=== PATIENT | female | born 1945 | race Caucasian/White ===

== ENCOUNTER 2016-04-04 10:12 | Day surgery (SDC) | payer MEDICARE ==
[2016-04-01 11:00] VITALS: BMI 58.7
[~2016-04-04 10:12] MED LIST: ALPRAZolam 0.25 MG TAB PO PRN; ALPRAZolam 0.5 MG TAB PO PRN; ASPIRIN 325 MG TAB PO STA; ATORVASTATIN 80 MG TAB PO STA; NITROGLYCERIN SL TABS 0.4 MG TAB SUBLINGUAL PRN; SODIUM CHLORIDE 0.9% 1,000 ML in EMPTY BAG 1 BAG IV ONE
[2016-04-04 11:40] LABS: Basophils % (A) 1 %; CH 32.3; CHCM 32.4; Eosinophils # (A) 0.6 k/uL (0-0.7); Eosinophils % (A) 6 %; HCT 36.1 % (34.0-46.0); HDW 2.54; HGB 11.6 gm/dL (11.4-16.0); Luc # (Auto) 0.17; Luc % (Auto) 2; Lymphocytes # (A) 0.9 k/uL (1.0-4.8); Lymphocytes % (A) 10 %; MCH 32.2 pg (25.0-35.0); MCHC 32.2 g/dL (31.0-37.0); MCV 100.1 fL (80.0-100.0); Mean Platelet Volume 6.7; Monocytes # (A) 0.7 k/uL (0-1.0); Monocytes % (A) 7 %; Neutrophils # (A) 6.9 k/uL (1.3-7.7); Neutrophils % (A) 74 %; RDW 13.3 % (11.5-15.5); WBC 9.2 k/uL (3.8-10.6); WBC (Perox) 9.72
[2016-04-04 11:41] LABS: Glucose,Whole Blood 163 mg/dL (75-99)
[2016-04-04 11:46] VITALS: TEMP 99
[2016-04-04 11:52] LABS: Anion Gap 11 mmol/L; Blood Urea Nitrogen 36 mg/dL (7-17); Calcium 9.3 mg/dL (8.4-10.2); Carbon Dioxide 32 mmol/L (22-30); Chloride 98 mmol/L (98-107); Glucose 167 mg/dL (74-99); Non-African American GFR(MDRD) 53 (>60 ml/min/1.73 sqM); Potassium 5.2 mmol/L (3.5-5.1); Sodium 141 mmol/L (137-145)
[2016-04-04] MEDS ORDERED: VERAPAMIL 2.5 MG/ML 2 ML AMP ONE (12:06)
[2016-04-04] MEDS ORDERED: LIDOCAINE 2% INJ 20 MG/ML (20 ML MDV) ONE (12:07)
[2016-04-04] MEDS ORDERED: SODIUM CHLORIDE 0.9% (PF) 10 ML VIAL ONE (12:07)
[2016-04-04] MEDS ORDERED: MIDAZOLAM 2 MG/2 ML VIAL ONE (12:31)
[2016-04-04] MEDS ORDERED: HEPARIN SODIUM 1,000 UNIT/ML VIAL ONE (12:32)
[2016-04-04] MEDS ORDERED: MIDAZOLAM 2 MG/2 ML VIAL IV ONE (12:45)
[2016-04-04] MEDS ORDERED: LIDOCAINE 2% INJ 20 MG/ML SQ ONE (12:47)
[2016-04-04] MEDS ORDERED: IODIXANOL 320 MG/ML 100 ML INTRAARTER ONE (13:09)
[2016-04-04] MEDS ORDERED: RX INFO: IV CONTRAST WAS GIVEN 1 EACH MISC MISCELLANE PRN (13:17)
[2016-04-04] MEDS ORDERED: SODIUM CHLORIDE 0.9% 1,000 ML IV SCH (13:30)
[2016-04-04 14:04] VITALS: RESP 16
[2016-04-04 17:05] LABS: Glucose,Whole Blood 120 mg/dL (75-99)
[2016-04-04 17:12] VITALS: BP 138/63; PULSE 53
[2016-04-04] MEDS ORDERED: INSULIN LISPRO (humaLOG) 300 UNIT/3 ML VIAL SQ SCH (17:30)
--- NOTE | 2016-04-04 20:48 | CC ---
DATE OF SERVICE: 04/04/2016 Performing physician: Hermes tabor. PROCEDURE PERFORMED: 1. Selective right and left coronary angiogram. 2. Left heart catheterization. Approach: Right common femoral artery. INDICATION: This is a pleasant 71-year-old female who is known to have coronary artery disease and known to have severe left circumflex and stent to the ostial/proximal LAD was experiencing chest discomfort consistent with angina. COMPLICATIONS: None. Level of sedation: Moderate. DESCRIPTION OF PROCEDURE: After obtaining informed consent, the patient was brought to the cardiac bolt labeler. The right common femoral artery was cannulated using ( ). Then I placed 6 [place] sheath in the right common femoral artery. Subsequently, I did selective right and left coronary angiogram using JR4 and JL4 catheters. After that, I did left heart catheterization and LV gram using a 6 [place] pigtail catheter. The procedure was completed without any complication. SELECTIVE CORONARY ANGIOGRAM: 1. The right coronary artery is a large-caliber vessel and it is a dominant vessel. The proximal RCA appeared to have mild disease only. The mid RCA has known severe lesion appeared to be in the range of 40%. The RCA distally appeared to have mild disease only and bifurcates into PDA and PLV branches. The PDA branch appeared to have mild disease only and the PLV branch appeared to have a lesion in the range of 50%. 2. The left main is calcified. Left main with mild disease distally bifurcates into the left circumflex and left anterior descending artery. The left circumflex is a large-caliber vessel and it is a dominant vessel. The ostial left circumflex appeared to have calcified, eccentric, and tight lesion in the range of 90% to 95%. The lesion extends to the proximal left circumflex. The mid left circumflex appeared to have mild disease only. The left circumflex distally is normal. 3. The left anterior descending coronary artery: The ostial/proximal LAD is stented with mild to moderate in-stent restenosis. The mid LAD appeared to have mild disease only and LAD distally appeared to be angiographically to have mild disease only. 4. The ramus intermedius appeared to have severe lesion in the proximal portion but the artery is a medium to medium caliber vessel. CONCLUSION: 1. Intermediate disease involving the right coronary artery. 2. Critical disease involving the ostial/proximal left circumflex, which seems to be calcified. 3. Intermediate in-stent restenosis involving the LAD stent. POSTPROCEDURE MANAGEMENT: The patient will be scheduled to undergo an atherectomy and balloon angioplasty and stenting of the left circumflex.
== END 2016-04-04 20:10 | disposition home or self-care (01) ==
LOC: CATHCVL 10:12 → 3OBS 13:13 → CATHCVL 20:10
PROVIDERS: ATTEND Internal Medicine Interventional Cardiology
DX: I25.110 Atherosclerotic heart disease of native coronary artery with unstable angina pectoris (principal); T82.855A Stenosis of coronary artery stent, initial encounter; I10 Essential (primary) hypertension; E78.5 Hyperlipidemia, unspecified; E78.00 Pure hypercholesterolemia, unspecified; E11.9 Type 2 diabetes mellitus without complications; Z79.82 Long term (current) use of aspirin; Z79.4 Long term (current) use of insulin; Z79.899 Other long term (current) drug therapy; Z88.5 Allergy status to narcotic agent; Z88.0 Allergy status to penicillin; Z88.8 Allergy status to other drugs, medicaments and biological substances; Z91.040 Latex allergy status
CPT/HCPCS: 93458; 80048; 85025; 99156; 99157; C1894 ×2; C1769 ×2; J2001; J2250; Q9967

== ENCOUNTER 2016-04-24 00:05 | Inpatient (IN) | payer MEDICARE ==
[2016-04-24] MEDS ORDERED: SODIUM CHLORIDE 0.9% 1,000 ML IV ONE (00:36)
--- NOTE | 2016-04-24 00:38 | ED ---
General Adult HPI - General Chief complaint: Altered Mental Status Stated complaint: Altered mental status Time Seen by Provider: 04/24/16 00:30 Source: patient, EMS, RN notes reviewed Mode of arrival: EMS Limitations: altered mental status, physical limitation - History of Present Illness Initial comments: Patient is a 71-year-old female presenting to the emergency department with concerns for mental status change. History is very limited. Patient is oriented to name. Patient is unclear why she is here. Reportedly there was concern regarding change in mental status. EMS did provide Narcan. Reported the a home nurse found to fentanyl patches and remove one of them. Patient is restless at this time. - Related Data Home Medications Medication Instructions Recorded Confirmed Citalopram Hydrobromide [CeleXA] 40 mg PO QAM 09/20/14 04/04/16 clonazePAM [KlonoPIN] 1 mg PO TID 09/20/14 04/04/16 fentaNYL 75MCG/HR PATCH [Duragesic 1 patch TRANSDERM Q72H 09/20/14 04/04/16 75MCG/HR] lamoTRIgine [LaMICtal] 25 mg PO BID 09/20/14 04/04/16 Allopurinol [Zyloprim] 100 mg PO DAILY 03/02/15 04/04/16 Cholecalciferol [Vitamin D3] 1,000 unit PO DAILY 03/02/15 04/04/16 Cyanocobalamin [Vitamin B-12] 500 mcg PO DAILY 03/02/15 04/04/16 Nitroglycerin Sl Tabs [Nitrostat] 0.4 mg SUBLINGUAL Q5M PRN 03/02/15 04/01/16 Aspirin 81 mg PO DAILY 10/05/15 04/04/16 INSULIN LISPRO (humaLOG) [humaLOG See Protocol SQ AC-BID 10/05/15 04/01/16 (formulary)] Omeprazole 40 mg PO AC-BRKFST 10/05/15 04/04/16 Magnesium Oxide [Mag-Ox] 400 mg PO DAILY 10/20/15 04/04/16 Clopidogrel [Plavix] 75 mg PO DAILY 04/01/16 04/04/16 Zinc 50 mg PO DAILY 04/01/16 04/04/16 Previous Rx's Medication Instructions Recorded Ferrous Sulfate [Iron (65 MG 325 mg PO DAILY tab 10/08/15 Elemental)] Lisinopril [Zestril] 20 mg PO QAM #30 tab 10/08/15 Metoprolol Tartrate [Lopressor] 25 mg PO BID #60 tab 10/08/15 traMADol HCl [Ultram] 50 mg PO Q3H PRN #60 tab 10/08/15 Atorvastatin [Lipitor] 40 mg PO HS tab 10/22/15 Furosemide [Lasix] 40 mg PO BID@0900,1600 tab 10/22/15 Insulin Glargine [Lantus] 50 unit SQ HS vial 10/22/15 Oxybutynin Xl [Ditropan XL] 5 mg PO DAILY tab.er.24 10/22/15 Allergies Allergy/AdvReac Type Severity Reaction Status Date / Time adhesive Allergy Rash/Hives, Verified 04/01/16 09:56 W/ TAPES, CAN USE PAPER TAPE codeine Allergy Anaphylaxis Verified 04/01/16 09:56 latex Allergy Rash/Hives Verified 04/01/16 09:56 morphine Allergy Anaphylaxis Verified 04/01/16 09:56 Penicillins Allergy Anaphylaxis Verified 04/01/16 09:56 propoxyphene napsylate Allergy Anaphylaxis Verified 04/01/16 09:56 [From Darvocet-N 100] tuberculin, purified protein Allergy Rash/Hives Verified 04/01/16 09:56 deriva [tuberculin,purif.prot.deriv.] Review of Systems ROS Statement: Those systems with pertinent positive or pertinent negative responses have been documented in the HPI. ROS Other: All systems not noted in ROS Statement are negative. Limitations: ROS unobtainable due to patients medical condition Past Medical History Past Medical History: Asthma, Chest Pain / Angina, CVA/TIA, Diabetes Mellitus, GERD/Reflux, Hyperlipidemia, Hypertension, Memory Impairment, Osteoarthritis (OA ), Sleep Apnea/CPAP/BIPAP Additional Past Medical History / Comment(s): uses CPAP, chronic low back pain- bulging discs, scoliosis, gout, urinary incontinence, IBS, ulcers, TIA 3 yrs. ago-memory impairment, uses O2 @2l continuously History of Any Multi-Drug Resistant Organisms: MRSA Date of last positivie culture/infection: 2010 and 2011 MDRO Source:: lt axillary, lt leg Past Surgical History: Bladder Surgery, Cholecystectomy, Heart Catheterization, Heart Catheterization With Stent, Hysterectomy Additional Past Surgical History / Comment(s): 03-04-15 heart cath with stent to prox lad.Had previous stenting to distal lt circ. Partial parathyroidectomY. Bilateral cataracts removed, I and D of L chest wall abscess and L ankle wound. Bladder surgery with implant of stimulator system 2009. Past Anesthesia/Blood Transfusion Reactions: No Reported Reaction Additional Past Anesthesia/Blood Transfusion Reaction / Comment(s): Pt states she has received blood in the past without reaction. Date of Last Stent Placement:: 02/2015 Past Psychological History: Anxiety, Depression Additional Psychological History / Comment(s): RESIDES @ [employer] apartments. USES WALKER hx of falls. HOME CARE FROM [facility]ICATION ADMINISTRATION. Smoking Status: Never smoker Past Alcohol Use History: None Reported Past Drug Use History: None Reported - Past Family History Father Family Medical History: Cancer, Coronary Artery Disease (CAD) Additional Family Medical History / Comment(s): Father had prostate cancer. Mother Family Medical History: Asthma General Exam Limitations: altered mental status, physical limitation General appearance: alert, anxious (Patient is restless) Head exam: Present: atraumatic Eye exam: Present: normal appearance, PERRL ENT exam: Present: mucous membranes dry Neck exam: Present: normal inspection Respiratory exam: Present: normal lung sounds bilaterally Cardiovascular Exam: Present: regular rate, normal rhythm GI/Abdominal exam: Present: soft. Absent: tenderness Extremities exam: Present: normal inspection Neurological exam: Present: alert, altered. Absent: motor sensory deficit Expanded Neurological exam: Present: inattentive, protecting the airway Patient oriented to: Present: person Motor strength exam: RUE: 5, LUE: 5, RLE: 5, LLE: 5 Eye Response: (4) open spontaneously Motor Response: (6) obeys commands Verbal Response: (4) confused conversation Psychiatric exam: Present: agitated (And restless) Skin exam: Absent: rash Course Vital Signs 04/24/16 04/24/16 04/24/16 00:07 00:15 01:09 Temperature 98.2 F Pulse Rate 69 56 L 67 Respiratory 16 14 16 Rate Blood Pressure 156/101 156/101 166/110 O2 Sat by Pulse 95 100 95 Oximetry 04/24/16 04/24/16 01:49 02:35 Temperature Pulse Rate 75 71 Respiratory 14 16 Rate Blood Pressure 178/64 170/78 O2 Sat by Pulse 95 95 Oximetry Medical Decision Making - Medical Decision Making Patient reexamined and significantly improved. Patient is alert and oriented 3. Patient is only slightly restless at this time. Patient updated on results and plan. Case was discussed in detail with Dr. Dr. Fournier, who will admit for Chris Higgins - Lab Data Result diagrams: 04/24/16 01:10 04/24/16 01:10 Lab Results 04/24/16 04/24/16 04/24/16 Range/Units 01:10 01:10 01:10 WBC 13.7 H (3.8-10.6) k/uL RBC 3.87 (3.80-5.40) m/uL Hgb 12.3 (11.4-16.0) gm/dL Hct 38.6 (34.0-46.0) % MCV 99.7 (80.0-100.0) fL MCH 31.8 (25.0-35.0) pg MCHC 31.9 (31.0-37.0) g/dL RDW 13.7 (11.5-15.5) % Plt Count 234 (150-450) k/uL Neutrophils % 77 % Lymphocytes % 14 % Monocytes % 6 % Eosinophils % 1 % Basophils % 0 % Neutrophils # 10.6 H (1.3-7.7) k/uL Lymphocytes # 1.9 (1.0-4.8) k/uL Monocytes # 0.8 (0-1.0) k/uL Eosinophils # 0.2 (0-0.7) k/uL Basophils # 0.1 (0-0.2) k/uL Sodium 139 (137-145) mmol/L Potassium 5.5 H (3.5-5.1) mmol/L Chloride 101 (98-107) mmol/L Carbon Dioxide 26 (22-30) mmol/L Anion Gap 12 mmol/L BUN 65 H (7-17) mg/dL Creatinine 2.50 H (0.52-1.04) mg/dL Est GFR (MDRD) Af Amer 23 (>60 ml/min/1.73 sqM) Est GFR (MDRD) Non-Af 19 (>60 ml/min/1.73 sqM) Glucose 152 H (74-99) mg/dL Calcium 9.4 (8.4-10.2) mg/dL Total Bilirubin 0.6 (0.2-1.3) mg/dL AST 15 (14-36) U/L ALT 27 (9-52) U/L Alkaline Phosphatase 85 (38-126) U/L Total Creatine Kinase 60 (30-135) U/L CK-MB (CK-2) 0.7 (0.0-2.4) ng/mL CK-MB (CK-2) Rel Index 1.2 Troponin I <0.012 (0.000-0.034) ng/mL Total Protein 5.9 L (6.3-8.2) g/dL Albumin 3.7 (3.5-5.0) g/dL Urine Color Urine Appearance (Clear) Urine pH (5.0-8.0) Ur Specific [place] (1.001-1.035) Urine Protein (Negative) Urine Glucose (UA) (Negative) Urine Ketones (Negative) Urine Blood (Negative) Urine Nitrate (Negative) Urine Bilirubin (Negative) Urine Urobilinogen (<2.0) mg/dL Ur Leukocyte Esterase (Negative) Urine Opiates Screen (NotDetected) Ur Oxycodone Screen (NotDetected) Urine Methadone Screen (NotDetected) Ur Propoxyphene Screen (NotDetected) Ur Barbiturates Screen (NotDetected) U Tricyclic Antidepress (NotDetected) Ur Phencyclidine Scrn (NotDetected) Ur Amphetamines Screen (NotDetected) U Methamphetamines Scrn (NotDetected) U Benzodiazepines Scrn (NotDetected) Urine Cocaine Screen (NotDetected) U Marijuana (THC) Screen (NotDetected) 04/24/16 Range/Units 01:10 WBC (3.8-10.6) k/uL RBC (3.80-5.40) m/uL Hgb (11.4-16.0) gm/dL Hct (34.0-46.0) % MCV (80.0-100.0) fL MCH (25.0-35.0) pg MCHC (31.0-37.0) g/dL RDW (11.5-15.5) % Plt Count (150-450) k/uL Neutrophils % % Lymphocytes % % Monocytes % % Eosinophils % % Basophils % % Neutrophils # (1.3-7.7) k/uL Lymphocytes # (1.0-4.8) k/uL Monocytes # (0-1.0) k/uL Eosinophils # (0-0.7) k/uL Basophils # (0-0.2) k/uL Sodium (137-145) mmol/L Potassium (3.5-5.1) mmol/L Chloride (98-107) mmol/L Carbon Dioxide (22-30) mmol/L Anion Gap mmol/L BUN (7-17) mg/dL Creatinine (0.52-1.04) mg/dL Est GFR (MDRD) Af Amer (>60 ml/min/1.73 sqM) Est GFR (MDRD) Non-Af (>60 ml/min/1.73 sqM) Glucose (74-99) mg/dL Calcium (8.4-10.2) mg/dL Total Bilirubin (0.2-1.3) mg/dL AST (14-36) U/L ALT (9-52) U/L Alkaline Phosphatase (38-126) U/L Total Creatine Kinase (30-135) U/L CK-MB (CK-2) (0.0-2.4) ng/mL CK-MB (CK-2) Rel Index Troponin I (0.000-0.034) ng/mL Total Protein (6.3-8.2) g/dL Albumin (3.5-5.0) g/dL Urine Color Yellow Urine Appearance Clear (Clear) Urine pH 5.0 (5.0-8.0) Ur Specific [place] 1.013 (1.001-1.035) Urine Protein Negative (Negative) Urine Glucose (UA) Negative (Negative) Urine Ketones Negative (Negative) Urine Blood Negative (Negative) Urine Nitrate Negative (Negative) Urine Bilirubin Negative (Negative) Urine Urobilinogen <2.0 (<2.0) mg/dL Ur Leukocyte Esterase Negative (Negative) Urine Opiates Screen Not Detected (NotDetected) Ur Oxycodone Screen Not Detected (NotDetected) Urine Methadone Screen Not Detected (NotDetected) Ur Propoxyphene Screen Not Detected (NotDetected) Ur Barbiturates Screen Not Detected (NotDetected) U Tricyclic Antidepress Not Detected (NotDetected) Ur Phencyclidine Scrn Not Detected (NotDetected) Ur Amphetamines Screen Not Detected (NotDetected) U Methamphetamines Scrn Not Detected (NotDetected) U Benzodiazepines Scrn Not Detected (NotDetected) Urine Cocaine Screen Not Detected (NotDetected) U Marijuana (THC) Screen Not Detected (NotDetected) Disposition Clinical Impression: Altered mental status, Azotemia Disposition: ADMITTED IP TO THIS [facility] Referrals: Chris Yi MD [Primary Care Provider] - 1-2 days
[2016-04-24 01:23] LABS: Basophils # (A) 0.1 k/uL (0-0.2); Basophils % (A) 0 %; CH 32.5; CHCM 32.8; Eosinophils # (A) 0.2 k/uL (0-0.7); Eosinophils % (A) 1 %; HCT 38.6 % (34.0-46.0); HDW 2.44; HGB 12.3 gm/dL (11.4-16.0); Luc # (Auto) 0.18; Luc % (Auto) 1; Lymphocytes # (A) 1.9 k/uL (1.0-4.8); Lymphocytes % (A) 14 %; MCH 31.8 pg (25.0-35.0); MCHC 31.9 g/dL (31.0-37.0); MCV 99.7 fL (80.0-100.0); Mean Platelet Volume 7.8; Monocytes # (A) 0.8 k/uL (0-1.0); Monocytes % (A) 6 %; Neutrophils # (A) 10.6 k/uL (1.3-7.7); Neutrophils % (A) 77 %; RBC 3.87 m/uL (3.80-5.40); RDW 13.7 % (11.5-15.5); WBC 13.7 k/uL (3.8-10.6); WBC (Perox) 12.25
[2016-04-24 01:26] LABS: Appearance,Urine Clear (Clear); Bilirubin,Urine Negative (Negative); Glucose,Urine (UA) Negative (Negative); Ketones,Urine Negative (Negative); Leukocyte Esterase,Urine Negative (Negative); Nitrite,Urine Negative (Negative); Protein,Urine Negative (Negative); Specific Gravity,Urine 1.013 (1.001-1.035); UA Billing (MACRO vs. MICRO) CHEM; Urobilinogen,Urine <2.0 mg/dL (<2.0)
[2016-04-24 01:36] LABS: Calcium 9.4 mg/dL (8.4-10.2); Potassium 5.5 mmol/L (3.5-5.1); Total Bilirubin 0.6 mg/dL (0.2-1.3); Total Protein 5.9 g/dL (6.3-8.2)
[2016-04-24 01:49] LABS: Creatine Kinase 60 U/L (30-135)
[2016-04-24] MEDS ORDERED: LORazepam 2 MG/ML SYRINGE IV STA (01:52)
[2016-04-24 02:02] LABS: Creatine Kinase MB 0.7 ng/mL (0.0-2.4); Troponin I <0.012 ng/mL (0.000-0.034)
[2016-04-24] MEDS ORDERED: SODIUM CHLORIDE 0.9% 500 ML IV STA (02:14)
--- NOTE | 2016-04-24 02:35 | XR ---
EXAMINATION TYPE: XR chest 1V portable DATE OF EXAM: 04/24/2016 2:17 AM COMPARISON: 10/20/2015 HISTORY: AMS overdose TECHNIQUE: Single frontal view of the chest is obtained. Portable upright study FINDINGS: The hilar pulmonary vascular markings are prominent with mild pulmonary vascular congestion. There is no focal air space opacity, pleural effusion, or pneumothorax seen. There is mild cardiomega ly. The osseous structures are intact. IMPRESSION: Mild cardiomegaly. Mild pulmonary vascular congestion. No focal pneumonia.
--- NOTE | 2016-04-24 02:39 | CT ---
EXAMINATION TYPE: CT brain wo con DATE OF EXAM: 04/24/2016 2:26 AM COMPARISON: 06/25/2014 HISTORY: ETOH - opiates CT DLP: 2289.40 mGycm Automated exposure control for dose reduction was used. FINDINGS: The study is limited due to multiple motion artifacts. There is no acute intracranial hemorrhage, mass effect, or midline shift identified. The ventricles a nd cortical sulci are prominent with age-related atrophic changes of brain. Chronic white matter isch emic changes are noted in the brain. Old lacunar type infarction is suggested in the right basal gang lion with encephalomalacia changes.. Vascular calcifications are noted in the base of the brain. The globes are intact. Mucosal thickening is noted in the ethmoid sinuses with chronic sinusitis sarkar ges. IMPRESSION: No acute intracranial hemorrhage, mass effect, or midline shift is seen. Chronic white matter ischemic changes of brain. No significant interval change.
[2016-04-24] MEDS ORDERED: NALOXONE 0.4 MG/ML 1 ML VIAL IV PRN (02:56)
[2016-04-24] MEDS ORDERED: ONDANSETRON 4 MG/2 ML VIAL IVP PRN (02:56)
[2016-04-24] MEDS: SODIUM CHLORIDE 0.9% 1,000 ML IV SCH ×2 (03:33→17:23)
[2016-04-24 06:43] LABS: INR 1.1 (<1.1); Partial Thromboplastin Time 22.9 sec (22.0-30.0); Prothrombin Time 10.8 sec (9.0-12.0)
[2016-04-24 06:45] LABS: Glucose,Whole Blood 155 mg/dL (75-99)
[2016-04-24] MEDS ORDERED: PANTOPRAZOLE 40 MG/10 ML VIAL IV SCH (09:00)
[2016-04-24] MEDS ORDERED: NITROGLYCERIN SL TABS 0.4 MG TAB SUBLINGUAL PRN (09:59)
[2016-04-24] MEDS ORDERED: clonazePAM 1 MG TAB PO PRN (10:06)
--- NOTE | 2016-04-24 10:16 | P.HPIM ---
History of Present Illness H&P Date: 04/24/16 Chief Complaint: weakness, fall, Altered mental status This is a 71-year-old female who presented to the emergency room from [facility]. The patient apparently had changes in her mental status. She was given Narcan and Route with some improvement. Her fentanyl patch was removed. The patient is alert this morning and states that she fell and was weak at the intermediate. She states she is having some issues with her breathing and feeling short of breath. The patient denies fevers, chills, cough, abdominal pain. She is complaining of "peeing on the time." She also is complaining of dry mouth and feeling dehydrated. Review of Systems All systems: negative Past Medical History Past Medical History: Asthma, Chest Pain / Angina, CVA/TIA, Diabetes Mellitus, GERD/Reflux, Hyperlipidemia, Hypertension, Memory Impairment, Osteoarthritis (OA ), Sleep Apnea/CPAP/BIPAP Additional Past Medical History / Comment(s): uses CPAP, chronic low back pain- bulging discs, scoliosis, gout, urinary incontinence, IBS, ulcers, TIA 3 yrs. ago-memory impairment, uses O2 @2l continuously History of Any Multi-Drug Resistant Organisms: MRSA Date of last positivie culture/infection: 2010 and 2011 MDRO Source:: lt axillary, lt leg Past Surgical History: Bladder Surgery, Cholecystectomy, Heart Catheterization, Heart Catheterization With Stent, Hysterectomy Additional Past Surgical History / Comment(s): 03-04-15 heart cath with stent to prox lad.Had previous stenting to distal lt circ. Partial parathyroidectomY. Bilateral cataracts removed, I and D of L chest wall abscess and L ankle wound. Bladder surgery with implant of stimulator system 2009. Past Anesthesia/Blood Transfusion Reactions: No Reported Reaction Additional Past Anesthesia/Blood Transfusion Reaction / Comment(s): Pt states she has received blood in the past without reaction. Date of Last Stent Placement:: 02/2015 Past Psychological History: Anxiety, Depression Additional Psychological History / Comment(s): RESIDES @ [facility] apartments. USES WALKER hx of falls. HOME CARE FROM [facility] MEDICATION ADMINISTRATION. Smoking Status: Never smoker Past Alcohol Use History: None Reported Past Drug Use History: None Reported - Past Family History Father Family Medical History: Cancer, Coronary Artery Disease (CAD) Additional Family Medical History / Comment(s): Father had prostate cancer. Mother Family Medical History: Asthma Medications and Allergies Home Medications Medication Instructions Recorded Confirmed Type Citalopram Hydrobromide [CeleXA] 40 mg PO QAM 09/20/14 04/24/16 History clonazePAM [KlonoPIN] 1 mg PO TID 09/20/14 04/24/16 History fentaNYL 75MCG/HR PATCH [Duragesic 1 patch TRANSDERM Q72H 09/20/14 04/24/16 History 75MCG/HR] lamoTRIgine [LaMICtal] 25 mg PO BID 09/20/14 04/24/16 History Allopurinol [Zyloprim] 100 mg PO DAILY 03/02/15 04/24/16 History Cholecalciferol [Vitamin D3] 1,000 unit PO DAILY 03/02/15 04/24/16 History Cyanocobalamin [Vitamin B-12] 500 mcg PO DAILY 03/02/15 04/24/16 History Nitroglycerin Sl Tabs [Nitrostat] 0.4 mg SUBLINGUAL Q5M PRN 03/02/15 04/24/16 History Aspirin 81 mg PO DAILY 10/05/15 04/24/16 History INSULIN LISPRO (humaLOG) [humaLOG See Protocol SQ AC-BID 10/05/15 04/24/16 History (formulary)] Omeprazole 40 mg PO AC-BRKFST 10/05/15 04/24/16 History Magnesium Oxide [Mag-Ox] 400 mg PO DAILY 10/20/15 04/24/16 History Clopidogrel [Plavix] 75 mg PO DAILY 04/01/16 04/24/16 History Zinc 50 mg PO DAILY 04/01/16 04/24/16 History Allergies Allergy/AdvReac Type Severity Reaction Status Date / Time adhesive Allergy Rash/Hives, Verified 04/01/16 09:56 W/ TAPES, CAN USE PAPER TAPE codeine Allergy Anaphylaxis Verified 04/01/16 09:56 latex Allergy Rash/Hives Verified 04/01/16 09:56 morphine Allergy Anaphylaxis Verified 04/01/16 09:56 Penicillins Allergy Anaphylaxis Verified 04/01/16 09:56 propoxyphene napsylate Allergy Anaphylaxis Verified 04/01/16 09:56 [From Darmilacet-N 100] tuberculin, purified protein Allergy Rash/Hives Verified 04/01/16 09:56 deriva [tuberculin,purif.prot.deriv.] Physical Exam Osteopathic Statement: *. No significant issues noted on an osteopathic structural exam other than those noted in the History and Physical/Consult. Vitals: Vital Signs Temp Pulse Pulse Resp BP BP Pulse Ox 04/24/16 08:00 97.5 F L 78 18 97/44 98 04/24/16 04:38 97.8 F 70 17 144/64 90 L 04/24/16 04:00 70 16 145/65 96 Intake and Output 04/23/16 04/24/16 04/24/16 22:59 06:59 14:59 Intake Total 75 100 Output Total 400 Balance -325 100 Intake: IV 75 Sodium Chloride 0.9% 1, 75 000 ml @ 75 mls/hr IV . [id number] Rx#:[id number] Oral 100 Output: Urine 400 Other: Voiding Method Bedside Commode Weight 135.9 kg Gen.: Patient is alert, slow to respond to questions, falls asleep easily Cardiovascular: Regular rate and rhythm, S1/S2 Lungs: Diminished breath sounds bilaterally Abdomen: Soft nontender nondistended positive bowel sounds Extremities: Trace edema Results CBC & Chem 7: 04/24/16 01:10 04/24/16 01:10 Labs: Abnormal Lab Results - Last 24 Hours (Table) 04/24/16 Range/Units 06:43 POC Glucose (mg/dL) 155 H (75-99) mg/dL Chest x-ray: report reviewed, image reviewed CT Scan - head: report reviewed Thrombosis Risk Factor Assmnt - DVT/VTE Prophylaxis DVT/VTE Prophylaxis: Pharmacologic Prophylaxis ordered - Choose All That Apply Any of the Below Risk Factors Present?: Yes Each Factor Represents 1 point: Abnormal pulmonary function (COPD), Obesity ( BMI >25) Each Risk Factor Represents 2 Points: Age 61-74 years Thrombosis Risk Factor Assessment Total Risk Factor Score: 4 Thrombosis Risk Factor Assessment Level: Moderate Risk Assessment and Plan Plan: Toxic metabolic encephalopathy Possible narcotic overdose Acute kidney injury Dehydration Urinary frequency Severe pulmonary hypertension Untreated obstructive sleep apnea Morbid obesity Chronic hypoxic respiratory failure Diabetes mellitus type 2 Chronic pain Anxiety and depression Hypertension Dyslipidemia Coronary artery disease O2 to maintain saturation greater than equal to 88% Continue home medications Hold lisinopril, Lasix, fentanyl Gentle IV fluid hydration Monitor renal function Consult nephrology Patient is encouraged to be compliant with CPAP Check Lamictal level Avoid sedative medications GI and DVT prophylaxis PT and OT
[2016-04-24] MEDS: ALLOPURINOL 100 MG TAB PO SCH (10:58)
[2016-04-24] MEDS: CHOLECALCIFEROL 1,000 UNIT TAB PO SCH (10:59)
[2016-04-24] MEDS: CITALOPRAM HYDROBROMIDE 20 MG TAB PO SCH (10:59)
[2016-04-24] MEDS: OXYBUTYNIN XL 5 MG TAB.ER.24 PO SCH (10:59)
[2016-04-24] MEDS: MAGNESIUM OXIDE 400 MG TAB PO SCH (10:59)
[2016-04-24] MEDS: CLOPIDOGREL 75 MG TAB PO SCH (10:59)
[2016-04-24] MEDS: PANTOPRAZOLE 40 MG TABLET PO SCH (10:59)
[2016-04-24] MEDS: ASPIRIN 81 MG CHEW PO SCH (10:59)
[2016-04-24] MEDS: CYANOCOBALAMIN 500 MCG TAB PO SCH (11:00)
[2016-04-24] MEDS: ZINC GLUCONATE 50 MG TAB PO SCH (11:00)
[2016-04-24 12:34] LABS: Glucose,Whole Blood 130 mg/dL (75-99)
--- NOTE | 2016-04-24 12:39 | P.NPCON ---
History of Present Illness - Reason for Consult Consult date: 04/24/16 acute renal failure - Chief Complaint Acute kidney injury with syncope - History of Present Illness This is 71-year-old female seen in consultation because of acute kidney injury. Her creatinine was 1.02 recently on 04/04/2016 when she was admitted for a heart catheterization at the time. Post cardiac cath no creatinine is unavailable. She came in because of a syncopal episode while on the commode. She said she was not straining and has no constipation. She has difficulties of urine chronically. There was no history of nausea vomiting immediately prior to this but 2 weeks ago she did have some nausea vomiting and diarrhea possibly. She usually walks with a walker for the last few years. She is in an assisted living place. No changes in medications recently to her knowledge. And prior to this episode of syncope she was doing very well. She says she had dizziness and near-syncope did not pass out completely. No history of seizures. No history of trauma. Workup has shown a normal computed tomography scan of the head and a chest x- ray shows mild cardiomegaly and possible congestion. Patient had cardiac catheterization on 04/04/2016 because of chest pains. She has had previous stents. She was recommended to have a repeat procedure to address the critical stenosis involving the ostial/proximal left circumflex and in stent restenosis in the LAD stent. Patient is known with diabetes for the last 40 years without any laser treatment , neuropathy, retinopathy. She is also known with hypertension obstructive sleep apnea and wears a CPAP at home and has had partial parathyroidectomy. She is somewhat obese. Past Medical History Past Medical History: Asthma, Chest Pain / Angina, CVA/TIA, Diabetes Mellitus, GERD/Reflux, Hyperlipidemia, Hypertension, Memory Impairment, Osteoarthritis (OA ), Sleep Apnea/CPAP/BIPAP Additional Past Medical History / Comment(s): uses CPAP, chronic low back pain- bulging discs, scoliosis, gout, urinary incontinence, IBS, ulcers, TIA 3 yrs. ago-memory impairment, uses O2 @2l continuously History of Any Multi-Drug Resistant Organisms: MRSA Date of last positivie culture/infection: 2010 and 2011 MDRO Source:: lt axillary, lt leg Past Surgical History: Bladder Surgery, Cholecystectomy, Heart Catheterization, Heart Catheterization With Stent, Hysterectomy Additional Past Surgical History / Comment(s): 03-04-15 heart cath with stent to prox lad.Had previous stenting 2-2014 to distal lt circ. Partial parathyroidectomY. Bilateral cataracts removed, I and D of L chest wall abscess and L ankle wound. Bladder surgery with implant of stimulator system 2009. Past Anesthesia/Blood Transfusion Reactions: No Reported Reaction Additional Past Anesthesia/Blood Transfusion Reaction / Comment(s): Pt states she has received blood in the past without reaction. Date of Last Stent Placement:: 02/2015 Past Psychological History: Anxiety, Depression Additional Psychological History / Comment(s): RESIDES @ [facility]. USES WALKER hx of falls. HOME CARE FROM [facility]. Smoking Status: Never smoker Past Alcohol Use History: None Reported Past Drug Use History: None Reported - Past Family History Father Family Medical History: Cancer, Coronary Artery Disease (CAD) Additional Family Medical History / Comment(s): Father had prostate cancer. Mother Family Medical History: Asthma Medications and Allergies Home Medications Medication Instructions Recorded Confirmed Type Citalopram Hydrobromide [CeleXA] 40 mg PO QAM 09/20/14 04/24/16 History clonazePAM [KlonoPIN] 1 mg PO TID 09/20/14 04/24/16 History fentaNYL 75MCG/HR PATCH [Duragesic 1 patch TRANSDERM Q72H 09/20/14 04/24/16 History 75MCG/HR] lamoTRIgine [LaMICtal] 25 mg PO BID 09/20/14 04/24/16 History Allopurinol [Zyloprim] 100 mg PO DAILY 03/02/15 04/24/16 History Cholecalciferol [Vitamin D3] 1,000 unit PO DAILY 03/02/15 04/24/16 History Cyanocobalamin [Vitamin B-12] 500 mcg PO DAILY 03/02/15 04/24/16 History Nitroglycerin Sl Tabs [Nitrostat] 0.4 mg SUBLINGUAL Q5M PRN 03/02/15 04/24/16 History Aspirin 81 mg PO DAILY 10/05/15 04/24/16 History INSULIN LISPRO (humaLOG) [humaLOG See Protocol SQ AC-BID 10/05/15 04/24/16 History (formulary)] Omeprazole 40 mg PO AC-BRKFST 10/05/15 04/24/16 History Magnesium Oxide [Mag-Ox] 400 mg PO DAILY 10/20/15 04/24/16 History Clopidogrel [Plavix] 75 mg PO DAILY 04/01/16 04/24/16 History Zinc 50 mg PO DAILY 04/01/16 04/24/16 History Allergies Allergy/AdvReac Type Severity Reaction Status Date / Time adhesive Allergy Rash/Hives, Verified 04/01/16 09:56 W/ TAPES, CAN USE PAPER TAPE codeine Allergy Anaphylaxis Verified 04/01/16 09:56 latex Allergy Rash/Hives Verified 04/01/16 09:56 morphine Allergy Anaphylaxis Verified 04/01/16 09:56 Penicillins Allergy Anaphylaxis Verified 04/01/16 09:56 propoxyphene napsylate Allergy Anaphylaxis Verified 04/01/16 09:56 [From Darvocet-N 100] tuberculin, purified protein Allergy Rash/Hives Verified 04/01/16 09:56 deriva [tuberculin,purif.prot.deriv.] Physical Exam Vitals: Vital Signs Temp Pulse Pulse Resp BP BP Pulse Ox 04/24/16 11:06 97.2 F L 81 16 117/49 97 04/24/16 08:00 97.5 F L 78 18 97/44 98 04/24/16 04:38 97.8 F 70 17 144/64 90 L 04/24/16 04:00 70 16 145/65 96 Intake and Output 04/23/16 04/24/16 04/24/16 22:59 06:59 14:59 Intake Total 75 100 Output Total 400 Balance -325 100 Intake: IV 75 Sodium Chloride 0.9% 1, 75 000 ml @ 75 mls/hr IV . [id number] ONE Rx#:[id number] Oral 100 Output: Urine 400 Other: Voiding Method Bedside Commode Weight 135.9 kg On examination she is awake alert oriented comfortable currently. HEENT exam no JVP neck is supple no facial asymmetry pupils are equal Heart sounds are unremarkable for any murmur rub gallop Lungs are clear to auscultation percussion good air entry bilaterally Abdomen is soft nontender obese difficult to examine there is probably some left upper quadrant tenderness on deep palpation no masses are felt Extremity exam was no edema Warm to touch Neurologically awake alert oriented no focal motor deficit but she has generalized weakness. Results - Lab Results Most recent lab results Calcium 9.4 mg/dL (8.4-10.2) 04/24/16 01:10 04/24/16 01:10 04/24/16 01:10 Assessment and Plan Plan: Impression 1. Acute kidney injury creatinine going up from 1.02 on 04/04/2016, had cardiac catheterization on that day and now comes back on 04/24/2016 with a creatinine of 2.5. Possible dye associated acute kidney injury versus prerenal. Urinalysis benign 2. Syncopal episode possibly vasovagal while being on the commode. Patient has been negative drug screen, supposedly she was on a fentanyl patch and improved with removal of patch and was given Narcan. She had had no chest pain prior to this episode. She was able to walk prior to this without any complaints on the day of this just before. 3. Diabetes mellitus for 40 years without any proteinuria or chronic kidney disease. 4. History of hypertension. 5. Mild hyperkalemia potassium is 5.5 secondary to acute kidney injury. Concurrent blood sugar was 152. Bicarb is 26. 6. Obstructive sleep apnea on CPAP at home. Recommendations. 1. Agree with gentle hydration currently on 75 mL of normal saline which is optimal. 2. Check orthostatic changes. 3. Check postvoid residual as she has history of incontinence. 4. Repeat electrolytes as potassium is expected to improve with saline diuresis
[2016-04-24] MEDS: FERROUS SULFATE 325 MG TAB PO SCH (17:23)
[2016-04-24] MEDS: HEPARIN SODIUM,PORCINE 5,000 UNIT/ML 1 ML VIAL SQ SCH ×2 (17:23→23:42)
[2016-04-24 17:36] LABS: Glucose,Whole Blood 177 mg/dL (75-99)
[2016-04-24 19:02] LABS: Calcium 8.5 mg/dL (8.4-10.2); Potassium 5.4 mmol/L (3.5-5.1)
[2016-04-24] MEDS: METOPROLOL TARTRATE 25 MG TAB PO SCH (19:57)
[2016-04-24] MEDS: ATORVASTATIN 40 MG TAB PO SCH (19:57)
[2016-04-24] MEDS: lamoTRIgine 25 MG TAB PO SCH (19:57)
[2016-04-24 21:29] LABS: Glucose,Whole Blood 298 mg/dL (75-99)
[2016-04-24] MEDS: INSULIN GLARGINE 100 UNIT/ML 10 ML VIAL SQ SCH (21:49)
[2016-04-25 05:10] LABS: Glucose,Whole Blood 153 mg/dL (75-99)
[2016-04-25 06:16] LABS: Glucose,Whole Blood 91 mg/dL (75-99)
[2016-04-25] MEDS: SODIUM CHLORIDE 0.9% 1,000 ML IV SCH ×2 (06:38→20:37)
[2016-04-25] MEDS: PANTOPRAZOLE 40 MG TABLET PO SCH (06:38)
[2016-04-25] MEDS: FERROUS SULFATE 325 MG TAB PO SCH ×2 (06:38→17:17)
[2016-04-25 06:54] LABS: Basophils % (A) 0 %; CH 31.9; CHCM 31.2; Eosinophils # (A) 0.2 k/uL (0-0.7); Eosinophils % (A) 3 %; HCT 32.9 % (34.0-46.0); HDW 2.32; HGB 10.2 gm/dL (11.4-16.0); Luc # (Auto) 0.12; Luc % (Auto) 2; Lymphocytes # (A) 1.5 k/uL (1.0-4.8); Lymphocytes % (A) 24 %; MCHC 31.1 g/dL (31.0-37.0); MCV 102.7 fL (80.0-100.0); Macrocytosis Slight; Mean Platelet Volume 7.1; Monocytes # (A) 0.4 k/uL (0-1.0); Monocytes % (A) 6 %; Neutrophils # (A) 4.1 k/uL (1.3-7.7); Neutrophils % (A) 65 %; RBC 3.21 m/uL (3.80-5.40); RDW 13.5 % (11.5-15.5); WBC 6.3 k/uL (3.8-10.6); WBC (Perox) 6.63
[2016-04-25 06:58] LABS: Calcium 8.8 mg/dL (8.4-10.2); Potassium 5.3 mmol/L (3.5-5.1); Total Bilirubin 0.5 mg/dL (0.2-1.3); Total Protein 5.2 g/dL (6.3-8.2)
[2016-04-25] MEDS: HEPARIN SODIUM,PORCINE 5,000 UNIT/ML 1 ML VIAL SQ SCH ×3 (09:19→23:59)
[2016-04-25] MEDS: ALLOPURINOL 100 MG TAB PO SCH (09:29)
[2016-04-25] MEDS: ASPIRIN 81 MG CHEW PO SCH (09:29)
[2016-04-25] MEDS: CLOPIDOGREL 75 MG TAB PO SCH (09:29)
[2016-04-25] MEDS: OXYBUTYNIN XL 5 MG TAB.ER.24 PO SCH (09:30)
[2016-04-25] MEDS: lamoTRIgine 25 MG TAB PO SCH ×2 (09:30→20:38)
[2016-04-25] MEDS: MAGNESIUM OXIDE 400 MG TAB PO SCH (09:30)
[2016-04-25] MEDS: METOPROLOL TARTRATE 25 MG TAB PO SCH ×3 (09:30→20:42)
[2016-04-25] MEDS: CITALOPRAM HYDROBROMIDE 20 MG TAB PO SCH (09:30)
[2016-04-25] MEDS: traMADol 50 MG TAB PO PRN ×2 (09:41→20:49)
[2016-04-25 11:58] LABS: Glucose,Whole Blood 150 mg/dL (75-99)
[2016-04-25] MEDS: ZINC GLUCONATE 50 MG TAB PO SCH (12:33)
[2016-04-25] MEDS: CYANOCOBALAMIN 500 MCG TAB PO SCH (12:33)
[2016-04-25] MEDS: CHOLECALCIFEROL 1,000 UNIT TAB PO SCH (12:33)
--- NOTE | 2016-04-25 14:55 | P.PN ---
Subjective 71-year-old female who was transferred from the [facility] assisted- living after was noted until status changes. Patient was given Narcan in route per EMS and there was a noted improvement. Patient's fentanyl patch was also removed. It was noted that after removing the fentanyl part giving the [place], the patient was more awake and alert. Additionally the patient was reportedly experiencing urinary incontinence. Patient additionally states she felt dehydrated. Additionally this admission patient's creatinine was noted to be elevated. Patient was experiencing an acute kidney injury creatinine going up from 1. 0 on April 04 22.5 on April 24 likely associate acute kidney injury the urinalysis was benign. The syncopal episode that the patient experienced at the formerly [facility] was felt to be probable vasovagal on a commode it's noted that the creatinine this morning is 1.2 on April 25 Objective - Vital Signs Vital signs: Vital Signs Temp 97 F L 04/25/16 12:00 Pulse 54 L 04/25/16 12:00 Resp 16 04/25/16 12:00 BP 112/53 04/25/16 12:00 Pulse Ox 97 04/25/16 12:00 Intake & Output 04/24/16 04/25/16 04/25/16 18:59 06:59 18:59 Intake Total 100 780 Output Total 400 150 Balance -300 630 Weight 136.3 kg Intake: Intake, IV Titration 600 Amount Sodium Chloride 0.9% 1, 600 000 ml @ 75 mls/hr IV . [id number] [facility] Rx#:[id number] Oral 100 180 Output: Urine 400 150 Other: Voiding Method Bedside Commode Bedside Commode # Voids 1 # Bowel Movements 1 - Exam Physical exam 71-year-old female sitting up in bed does not appear in any acute distress Lungs essentially clear with adequate air movement Heart S1-S2 audible regular monitor sinus rhythm with sinus bradycardia heart rate in the 50s to 60s Abdomen soft nontender post void residual 28 mL patient voided 250 continues to experience urinary incontinence Extremities no edema - Labs CBC & Chem 7: 04/25/16 06:29 04/25/16 06:25 Labs: Abnormal Lab Results - Last 24 Hours (Table) 04/24/16 04/24/16 04/24/16 Range/Units 17:23 18:33 21:13 RBC (3.80-5.40) m/uL Hgb (11.4-16.0) gm/dL Hct (34.0-46.0) % MCV (80.0-100.0) fL Potassium 5.4 H (3.5-5.1) mmol/L BUN 53 H (7-17) mg/dL Creatinine 1.50 H (0.52-1.04) mg/dL Glucose 203 H (74-99) mg/dL POC Glucose (mg/dL) 177 H 298 H (75-99) mg/dL Total Protein (6.3-8.2) g/dL Albumin (3.5-5.0) g/dL 04/25/16 04/25/16 04/25/16 Range/Units 06:25 06:29 11:55 RBC 3.21 L (3.80-5.40) m/uL Hgb 10.2 L (11.4-16.0) gm/dL Hct 32.9 L (34.0-46.0) % MCV 102.7 H (80.0-100.0) fL Potassium 5.3 H (3.5-5.1) mmol/L BUN 41 H (7-17) mg/dL Creatinine 1.20 H (0.52-1.04) mg/dL Glucose (74-99) mg/dL POC Glucose (mg/dL) 150 H (75-99) mg/dL Total Protein 5.2 L (6.3-8.2) g/dL Albumin 3.0 L (3.5-5.0) g/dL Assessment and Plan Plan: Impression Present on admission syncopal episode likely vasovagal on the commode Acute kidney injury creatinine going up from 1.2 on April 04 after heart catheterization now on April 24 creatinine 2.5 likely associated kidney injury Type 2 diabetes without proteinuria or chronic kidney disease insulin requiring Mild hyperkalemia potassium 5.5 secondary to acute kidney injury Obstructive sleep apnea with the use of CPAP therapy at home Hypertension Recent heart catheterization 04/04/2016 intermediate in-stent restenosis involving the LAD stent with angioplasty stenting of the left circumflex Known coronary artery disease Plan Bladder scan after each post void straight cath if greater than 500 Repeat labs in the morning Resume home meds as appropriate DVT and GI prophylaxis Possible discharge in the next 24 to 48 hours if clinically stable Further recommendations pending The above dictated assessment and findings were discussed with Dr. Yi Impression and the plan of care have been dictated as directed. Gregoria De La Cruz nurse practitioner acting as a scribe for Dr. Yi
[2016-04-25 17:15] LABS: Glucose,Whole Blood 173 mg/dL (75-99)
--- NOTE | 2016-04-25 19:34 | CONS ---
DATE OF CONSULTATION: 04/25/2016 REASON FOR CONSULTATION: Urinary incontinence. The patient is a 71-year-old female admitted through the emergency room on 04/25 for evaluation of a change in her level of consciousness. The patient has a history of low back pain and had been treated with a fentanyl patch 75 mcg/hour. It is unclear whether the narcotics were the cause of her mental changes; however, the patient apparently improved shortly after she was given some [place]. A brain CT was obtained in the emergency room which showed no acute changes. On admission the patient was noted to have a creatinine of 2.5, which was elevated from a previous creatinine of 1.02 noted on 04/04/2016. At that time the patient had been treated with cardiac catheterization and it was felt that the decline in renal function may have been related to the use of IV contrast. Patient's creatinine improved to 1.5 later in the evening on 04/24 and has fallen to 1.20 today. The patient has a history of chronic urinary incontinence, and I was asked to see the patient for further evaluation of this. She has previously seen Dr. Barrett but has not been seen in our office since 2009. She has a history of urinary incontinence which dates back over 10 or 15 years. The leakage currently occurs periodically during the day and night, and the patient continually wears Depends for this. She says she voids nearly every hour during the day and night. She says she usually voids relatively large amounts because she drinks a large amount of fluid due to a dry mouth. She has sensations of incomplete bladder emptying; however post-void residuals have been checked and showed very low amounts of retained urine. She has had occasional urinary tract infections. She also has occasional episodes of fecal incontinence. When seen in 2009, the patient had a cystometrogram that showed evidence of an unstable bladder. The patient had previously been treated with anticholinergics with no improvement. She was referred to Dr. Celestino Hall in [place] and underwent placement of an InterStim in 2009. Patient said that the InterStim only worked a short period of time. She has not been back for followup since then. The InterStim remains in place. PAST MEDICAL HISTORY:Significant in regard to moribund obesity, diabetes mellitus, benign hypertension and coronary artery disease. The patient was found to have significant disease of the left circumflex artery on her cardiac catheterization on 04/04. She has previously undergone several cardiac catheterizations with stents, cholecystectomy, partial parathyroidectomy, bilateral cataract surgery and placement of an InterStim unit. She has a history of chronic low back pain, anxiety, depression and asthma. Current medications include: 1. Allopurinol. 2. Aspirin. 3. Lipitor. 4. Vitamin D. 5. Celexa. 6. Klonopin. 7. Plavix. 8. Vitamin B12. 9. Iron sulfate. 10. Lantus. 11. Lamictal. 12. Magnesium oxide. 13. Lopressor. 14. Ditropan XL 5 mg daily. 15. Protonix. 16. Tramadol. ALLERGIES: 1. CODEINE. 2. LASIX. 3. MORPHINE. 4. PENICILLINS. 5. PROPOXYPHENE. 6. REACTS TO PPD. REVIEW OF SYSTEMS: Significant mainly in regard to the above. The patient has difficulty with ambulation due to her moribund obesity. Physical exam reveals a 71-year-old female who is alert and oriented, afebrile. Weight 135 kg. HEENT: No supraclavicular or cervical adenopathy. CHEST: Breathing is unlabored. ABDOMEN: Grossly obese. There is intertrigo below a fat fold in the suprapubic area. No abdominal mass is palpable. PELVIC: External genitalia and urethral meatus are normal; however, there is erythema of the introitus secondary to chronic urine retention. The urethra appears to be relatively well supported. There was no stress incontinence while the patient was coughing with a full bladder. IMPRESSION: 1. Urinary incontinence. This is most likely urge incontinence and at least in the past did not improve with the use of anticholinergics. She does have an InterStim unit in place, but it is unclear whether the settings on this have been optimized. 2. Moribund obesity. 3. Coronary artery disease. 4. Benign hypertension. 5. Type 2 diabetes mellitus. 6. Asthma. RECOMMENDATION: The patient should make an appointment to see Dr. Barrett for followup once she is discharged from the hospital. It may be possible for the [employer] patient portal representative to reprogram the patient's InterStim unit or at least adjust it to see if it will improve her incontinence. Unfortunately, due to the patient's reduced mobility from obesity, her incontinence will be much more difficult to treat, as she has problems getting from a chair or out of bed when she gets the urge to void. Patient's large fluid intake also makes treatment of the urge incontinence more difficult. Thank you for allowing me to participate in the care of this patient. IRMA
[2016-04-25] MEDS: ATORVASTATIN 40 MG TAB PO SCH (20:37)
[2016-04-25] MEDS: NYSTATIN 100,000 UNIT/GM POWD 15 GM TOPICAL SCH (20:39)
[2016-04-25 21:15] LABS: Glucose,Whole Blood 204 mg/dL (75-99)
[2016-04-25] MEDS: INSULIN GLARGINE 100 UNIT/ML 10 ML VIAL SQ SCH (21:52)
[2016-04-26 07:54] LABS: Glucose,Whole Blood 123 mg/dL (75-99)
[2016-04-26 08:06] VITALS: BP 165/73; RESP 18; TEMP 96.1
[2016-04-26] MEDS: NYSTATIN 100,000 UNIT/GM POWD 15 GM TOPICAL SCH (09:11)
[2016-04-26] MEDS: traMADol 50 MG TAB PO PRN (09:17)
[2016-04-26] MEDS: HEPARIN SODIUM,PORCINE 5,000 UNIT/ML 1 ML VIAL SQ SCH (09:18)
[2016-04-26] MEDS: ASPIRIN 81 MG CHEW PO SCH (09:19)
[2016-04-26] MEDS: ALLOPURINOL 100 MG TAB PO SCH (09:19)
[2016-04-26] MEDS: FERROUS SULFATE 325 MG TAB PO SCH (09:19)
[2016-04-26] MEDS: CITALOPRAM HYDROBROMIDE 20 MG TAB PO SCH (09:19)
[2016-04-26] MEDS: lamoTRIgine 25 MG TAB PO SCH (09:19)
[2016-04-26] MEDS: CHOLECALCIFEROL 1,000 UNIT TAB PO SCH (09:19)
[2016-04-26] MEDS: CLOPIDOGREL 75 MG TAB PO SCH (09:19)
[2016-04-26] MEDS: METOPROLOL TARTRATE 25 MG TAB PO SCH (09:20)
[2016-04-26] MEDS: OXYBUTYNIN XL 5 MG TAB.ER.24 PO SCH (09:20)
[2016-04-26] MEDS: MAGNESIUM OXIDE 400 MG TAB PO SCH (09:20)
[2016-04-26] MEDS: PANTOPRAZOLE 40 MG TABLET PO SCH (09:20)
[2016-04-26] MEDS: SODIUM CHLORIDE 0.9% 1,000 ML IV SCH (09:24)
[2016-04-26 09:44] LABS: Anion Gap 6 mmol/L; Carbon Dioxide 29 mmol/L (22-30); Chloride 108 mmol/L (98-107); Glucose 151 mg/dL (74-99); Potassium 5.2 mmol/L (3.5-5.1); Sodium 143 mmol/L (137-145); Total Protein 5.2 g/dL (6.3-8.2)
[2016-04-26 09:45] LABS: ALT 34 U/L (9-52); AST 12 U/L (14-36); Alkaline Phosphatase 69 U/L (38-126); Blood Urea Nitrogen 19 mg/dL (7-17); Calcium 8.8 mg/dL (8.4-10.2); Non-African American GFR(MDRD) 55 (>60 ml/min/1.73 sqM); Total Bilirubin 0.4 mg/dL (0.2-1.3)
[2016-04-26 10:12] VITALS: PULSE 56
[2016-04-26] MEDS: ZINC GLUCONATE 50 MG TAB PO SCH (11:01)
[2016-04-26] MEDS: CYANOCOBALAMIN 500 MCG TAB PO SCH (11:01)
[2016-04-26 11:40] LABS: Glucose,Whole Blood 188 mg/dL (75-99)
--- NOTE | 2016-04-26 13:32 | P.DS ---
Providers Date of admission: 04/24/16 02:56 Expected date of discharge: 04/26/16 Attending physician: Chris Jimenez Consults: 04/24/16 10:07 Consult Physician Routine Consulting Provider: Marcelo Odell Consult Reason/Comments: KAMILAH Do you want consulting provider notified?: Yes 04/25/16 10:55 Consult Physician Routine Consulting Provider: Marcus Barrett Consult Reason/Comments: urinary incontinence Do you want consulting provider notified?: Yes Primary care physician: [facility] Course: 71-year-old female who was transferred from the [facility] assisted- living after was noted until status changes. Patient was given Narcan in route per EMS and there was a noted improvement. Patient's fentanyl patch was also removed. It was noted that after removing the fentanyl part giving the [place], the patient was more awake and alert. Additionally the patient was reportedly experiencing urinary incontinence. Patient additionally states she felt dehydrated. Additionally this admission patient's creatinine was noted to be elevated. Patient was experiencing an acute kidney injury creatinine going up from 1. 0 on April 04 to 2.5 on April 24 likely due associate acute kidney injury the urinalysis was benign. The syncopal episode that the patient experienced at the [facility] was felt to be probable vasovagal happened while on a commode it's noted CAT scan drain in the emergency room was negative. A urology consultation was obtained for chronic urinary incontinence. Patient has previously seen Dr. Lara in the office but has not been in the office since 2009. Patient states her urinary incontinence has been last 10-15 years. It's leakage that occurs periodically during the day and night. She wears depends. She states that she needs to get up and void every hour. Urology recommended that the patient be seen by Dr. Lara for follow-up visit once discharged. Patient does have a interstim unit in place but it's unclear whether the settings have been optimized may be possible for the [employer] rep to reprogram the patient's InterStim unit for at least adjusted fever does improve her incontinence. Unfortunately due to the patient's recent mobility from obesity her incontinence is more difficult to treat as patient has problems getting out of the bed when she has an urge to void. Patient was felt to be medically stable from all consulting physicians and that the patient could be discharged back to [facility] Impression discharge diagnosis Chronic Physical debility likely due to morbid obesity BMI 58 with limited mobility Hypertension Chronic urinary incontinence with a InterStim unit placed in 2009 for unstable bladder known coronary artery disease placement of an InterStim [place] [address] Celestino [facility]ler [facility] for unstable bladder History of an unstable bladder in 2009 per cystometrogram Present on admission syncopal episode likely vasovagal happened while on the commode Acute kidney injury creatinine going up from 1.2 on April 04 after heart catheterization now on April 24 creatinine 2.5 likely due to associated kidney injury Type 2 diabetes without proteinuria or chronic kidney disease Mild hyperkalemia potassium 5.5 secondary to acute kidney injury improving Obstructive sleep apnea with the use of CPAP therapy at home Hypertension Recent heart catheterization 04/04/2016 intermediate in-stent restenosis involving the LAD stent with angioplasty stenting of the left circumflex Known coronary artery disease The above dictated assessment and findings were discussed with dr tony Barth and the plan of care have been dictated as directed. Gregoria De La Cruz nurse practitioner acting as a scribe for dr jimenez Plan - Discharge Summary New Discharge Prescriptions: Ferrous Sulfate [Iron (65 MG Elemental)] 325 mg PO BID-W/MEALS #60 tab Nystatin 100,000 Unit/gm Powd [Mycostatin Powder] 1 applic TOPICAL BID #1 applic Oxybutynin Xl [Ditropan XL] 5 mg PO DAILY #30 tab.er.24 Discharge Medication List Citalopram Hydrobromide [CeleXA] 40 mg PO QAM 09/20/14 [History] clonazePAM [KlonoPIN] 1 mg PO TID 09/20/14 [History] fentaNYL 75MCG/HR PATCH [Duragesic 75MCG/HR] 1 patch TRANSDERM Q72H 09/20/14 [ History] lamoTRIgine [LaMICtal] 25 mg PO BID 09/20/14 [History] Allopurinol [Zyloprim] 100 mg PO DAILY 03/02/15 [History] Cholecalciferol [Vitamin D3] 1,000 unit PO DAILY 03/02/15 [History] Cyanocobalamin [Vitamin B-12] 500 mcg PO DAILY 03/02/15 [History] Nitroglycerin Sl Tabs [Nitrostat] 0.4 mg SUBLINGUAL Q5M PRN 03/02/15 [History] Aspirin 81 mg PO DAILY 10/05/15 [History] INSULIN LISPRO (humaLOG) [humaLOG (formulary)] See Protocol SQ AC-BID 10/05/15 [ History] Omeprazole 40 mg PO AC-BRKFST 10/05/15 [History] Ferrous Sulfate [Iron (65 MG Elemental)] 325 mg PO DAILY tab 10/08/15 [Rx] Lisinopril [Zestril] 20 mg PO QAM #30 tab 10/08/15 [Rx] Metoprolol Tartrate [Lopressor] 25 mg PO BID #60 tab 10/08/15 [Rx] traMADol HCl [Ultram] 50 mg PO Q3H PRN #60 tab 10/08/15 [Rx] Magnesium Oxide [Mag-Ox] 400 mg PO DAILY 10/20/15 [History] Atorvastatin [Lipitor] 40 mg PO HS tab 10/22/15 [Rx] Furosemide [Lasix] 40 mg PO BID@0900,1600 tab 10/22/15 [Rx] Insulin Glargine [Lantus] 50 unit SQ HS vial 10/22/15 [Rx] Oxybutynin Xl [Ditropan XL] 5 mg PO DAILY tab.er.24 10/22/15 [Rx] Clopidogrel [Plavix] 75 mg PO DAILY 04/01/16 [History] Zinc 50 mg PO DAILY 04/01/16 [History] Aspirin 81 mg PO DAILY chew 04/26/16 [Rx] Atorvastatin [Lipitor] 40 mg PO HS #0 tab 04/26/16 [Rx] Citalopram Hydrobromide [CeleXA] 40 mg PO DAILY tab 04/26/16 [Rx] Ferrous Sulfate [Iron (65 MG Elemental)] 325 mg PO BID-W/MEALS #60 tab 04/26/16 [Rx] Metoprolol Tartrate [Lopressor] 25 mg PO BID tab 04/26/16 [Rx] Nitroglycerin Sl Tabs [Nitrostat] 0.4 mg SUBLINGUAL Q5M PRN #0 tab 04/26/16 [Rx] Nystatin 100,000 Unit/gm Powd [Mycostatin Powder] 1 applic TOPICAL BID #1 applic 04/26/16 [Rx] Oxybutynin Xl [Ditropan XL] 5 mg PO DAILY #30 tab.er.24 04/26/16 [Rx] Follow up Appointment(s)/Referral(s): Chris Jimenez MD [Primary Care Provider] - 1-2 days Marcus Barrett MD [STAFF PHYSICIAN] - 1 Week Activity/Diet/Wound Care/Special Instructions: [facility] - Medication and Diabetes management - [phone] Home Care - RN & PT - [place] - [phone] Patient will need a follow-up visit with Dr. Lara has a [employer] InterStim device for unstable bladder for chronic urinary incontinence has been in place since 2009 may need to be reprogrammed Discharge Disposition: HOME WITH HOME HEALTH SERVICES
--- NOTE | 2016-04-27 23:40 | PN ---
DATE OF SERVICE: 04/25/2016 Patient is seen for follow-up for acute kidney injury, currently doing fairly well. Her renal function has improved with creatinine going down from 1.5 to 1.2 mg/dL. The patient had a cardiac catheterization on 04/04/2016. On examination, the patient is comfortable, awake, not in any acute distress. Blood pressure was 112/53, heart rate 54 per minute. She is afebrile. Examination of the heart S1 and S2. Examination of the lungs, bilateral breath sounds are heard. Decreased breath sounds at the bases. Abdomen is soft, nontender. Examination of the lower extremities shows no significant edema. EXPERIMENTAL MACHINING LAB MANAGER exam is grossly intact. Labs show sodium 143, potassium 5.3, hemoglobin 10.2, serum creatinine 1.2 mg/dL. ASSESSMENT: 1. Acute kidney injury, acute tubular necrosis, currently improved with serum creatinine going down from 2.5 mg/dL to 1.2 now. 2. Mild hyperkalemia, currently stable. The patient is not on any LINDSAY inhibitors. 3. Syncopal episode most likely vasovagal. 4. Mild hypovolemia, maintained on IV fluids with improvement in renal function. PLAN: Labs have improved. Patient can be discharged from nephrology standpoint.
== END 2016-04-26 14:26 | disposition home health service (06) | DRG 683 ==
LOC: EC 00:05 → 6SEL 02:56 → 4MS4W 04-25 18:59
PROVIDERS: ADMIT Family Medicine; ATTEND Family Medicine
DX: N17.0 Acute kidney failure with tubular necrosis (principal); J96.11 Chronic respiratory failure with hypoxia; I27.2 Other secondary pulmonary hypertension; Z68.43 Body mass index [BMI] 50.0-59.9, adult; Z99.81 Dependence on supplemental oxygen; E87.5 Hyperkalemia; E66.01 Morbid (severe) obesity due to excess calories; E86.0 Dehydration; R35.0 Frequency of micturition; G47.33 Obstructive sleep apnea (adult) (pediatric); G89.29 Other chronic pain; I25.10 Atherosclerotic heart disease of native coronary artery without angina pectoris; E11.9 Type 2 diabetes mellitus without complications; E78.5 Hyperlipidemia, unspecified; F32.9 Major depressive disorder, single episode, unspecified; I10 Essential (primary) hypertension; E86.1 Hypovolemia; J45.909 Unspecified asthma, uncomplicated; K21.9 Gastro-esophageal reflux disease without esophagitis; K58.0 Irritable bowel syndrome with diarrhea; M10.9 Gout, unspecified; M41.9 Scoliosis, unspecified; R32 Unspecified urinary incontinence; F41.9 Anxiety disorder, unspecified; M19.90 Unspecified osteoarthritis, unspecified site; N39.41 Urge incontinence; Z16.24 Resistance to multiple antibiotics; M54.5 Low back pain; Z98.41 Cataract extraction status, right eye; Z98.42 Cataract extraction status, left eye; Z91.040 Latex allergy status; Z88.5 Allergy status to narcotic agent; Z88.0 Allergy status to penicillin; Z91.81 History of falling; Z86.73 Personal history of transient ischemic attack (TIA), and cerebral infarction without residual deficits; Z90.49 Acquired absence of other specified parts of digestive tract; Z90.710 Acquired absence of both cervix and uterus; Z91.09 Other allergy status, other than to drugs and biological substances; Z79.02 Long term (current) use of antithrombotics/antiplatelets; Z79.82 Long term (current) use of aspirin; Z79.4 Long term (current) use of insulin; Z79.899 Other long term (current) drug therapy; Z82.49 Family history of ischemic heart disease and other diseases of the circulatory system; Z82.5 Family history of asthma and other chronic lower respiratory diseases
CPT/HCPCS: 36415; 70450; 71010; 80048; 80053; 80175; 80306; 81003; 82550; 82553; 84484; 85025; 85610; 85730; 96361; 96374; 96375; 99285

== ENCOUNTER 2016-06-28 17:10 | Observation (INO) | payer MEDICARE ==
[2016-06-28] MEDS ORDERED: ATORVASTATIN 80 MG TAB PO STA (17:33)
[2016-06-28] MEDS ORDERED: NITROGLYCERIN SL TABS 0.4 MG TAB SUBLINGUAL PRN (17:33)
[2016-06-28] MEDS ORDERED: ASPIRIN 325 MG TAB PO STA (17:33)
[2016-06-28] MEDS ORDERED: SODIUM CHLORIDE 0.9% 1,000 ML in EMPTY BAG 1 BAG IV ONE (17:33)
[2016-06-28] MEDS ORDERED: ALPRAZolam 0.25 MG TAB PO PRN (17:33)
[2016-06-28] MEDS ORDERED: ALPRAZolam 0.5 MG TAB PO PRN (17:33)
[2016-06-28 18:29] LABS: Glucose,Whole Blood 149 mg/dL (75-99)
[2016-06-28] MEDS: FUROSEMIDE 40 MG TAB PO SCH (18:50)
[2016-06-28] MEDS: clonazePAM 1 MG TAB PO SCH ×2 (18:50→20:36)
[2016-06-28] MEDS: lamoTRIgine 25 MG TAB PO SCH (18:51)
[2016-06-28] MEDS: METOPROLOL TARTRATE 25 MG TAB PO SCH (18:51)
[2016-06-28] MEDS: NYSTATIN 100,000 UNIT/GM POWD 15 GM TOPICAL SCH ×2 (18:51→20:36)
[2016-06-28 19:32] LABS: Basophils % (A) 0 %; CH 31.9; Eosinophils # (A) 0.4 k/uL (0-0.7); Eosinophils % (A) 5 %; HCT 32.5 % (34.0-46.0); HDW 2.48; HGB 10.5 gm/dL (11.4-16.0); Luc % (Auto) 1; Lymphocytes # (A) 1.2 k/uL (1.0-4.8); Lymphocytes % (A) 15 %; MCH 32.2 pg (25.0-35.0); MCHC 32.2 g/dL (31.0-37.0); MCV 100.2 fL (80.0-100.0); Mean Platelet Volume 6.9; Monocytes # (A) 0.5 k/uL (0-1.0); Monocytes % (A) 6 %; Neutrophils # (A) 5.7 k/uL (1.3-7.7); Neutrophils % (A) 73 %; RBC 3.25 m/uL (3.80-5.40); RDW 13.2 % (11.5-15.5); WBC 7.8 k/uL (3.8-10.6); WBC (Perox) 7.79
[2016-06-28 19:55] LABS: Calcium 9.1 mg/dL (8.4-10.2); Potassium 5.2 mmol/L (3.5-5.1)
[2016-06-28] MEDS: INSULIN GLARGINE 100 UNIT/ML 10 ML VIAL SQ SCH (20:50)
[2016-06-28 20:52] LABS: Glucose,Whole Blood 198 mg/dL (75-99)
[2016-06-29] MEDS: traMADol 50 MG TAB PO PRN ×3 (05:11→21:39)
[2016-06-29 06:09] LABS: Glucose,Whole Blood 127 mg/dL (75-99)
[2016-06-29] MEDS: ALLOPURINOL 100 MG TAB PO SCH (06:36)
[2016-06-29] MEDS: CITALOPRAM HYDROBROMIDE 20 MG TAB PO SCH (06:36)
[2016-06-29] MEDS: PANTOPRAZOLE 40 MG TABLET PO SCH (06:36)
[2016-06-29] MEDS: lamoTRIgine 25 MG TAB PO SCH ×2 (06:36→21:29)
[2016-06-29] MEDS: LISINOPRIL 20 MG TAB PO SCH (06:37)
[2016-06-29] MEDS: CLOPIDOGREL 75 MG TAB PO SCH (06:37)
[2016-06-29] MEDS: OXYBUTYNIN XL 5 MG TAB.ER.24 PO SCH (06:37)
[2016-06-29] MEDS: METOPROLOL TARTRATE 25 MG TAB PO SCH ×2 (06:37→21:27)
[2016-06-29] MEDS: clonazePAM 1 MG TAB PO SCH ×3 (06:40→21:29)
[2016-06-29] MEDS ORDERED: MIDAZOLAM 2 MG/2 ML VIAL IVP ONE (08:02)
[2016-06-29] MEDS ORDERED: IV FLUID CONTINUATION 700 ML IV ONE (08:02)
[2016-06-29] MEDS ORDERED: LIDOCAINE 2% INJ 20 MG/ML SQ ONE (08:06)
[2016-06-29] MEDS ORDERED: BIVALIRUDIN BOLUS 250 MG/50 ML IV ONE (08:10)
[2016-06-29] MEDS ORDERED: BIVALIRUDIN 250 MG in SODIUM CHLORIDE 0.9% 50 ML IV ONE ×2 (08:10→08:30)
[2016-06-29] MEDS ORDERED: NITROGLYCERIN 1000MCG/10ML SYRINGE INTRACORON ONE (08:41)
[2016-06-29] MEDS ORDERED: CLOPIDOGREL 75 MG TAB PO ONE (08:44)
[2016-06-29] MEDS ORDERED: IODIXANOL 320 MG/ML 100 ML INTRAARTER ONE (08:44)
[2016-06-29] MEDS ORDERED: RX INFO: IV CONTRAST WAS GIVEN 1 EACH MISC MISCELLANE PRN (09:15)
[2016-06-29] MEDS ORDERED: SODIUM CHLORIDE 0.9% 1,000 ML IV SCH (09:15)
[2016-06-29] MEDS ORDERED: NITROGLYCERIN SL TABS 0.4 MG TAB SUBLINGUAL PRN (09:15)
[2016-06-29] MEDS ORDERED: ATROPINE SULFATE 0.1 MG/ML 10ML SYRINGE IV PRN (09:15)
[2016-06-29] MEDS ORDERED: MAG HYDROX/AL HYDROX/SIMETH 30 ML CUP PO PRN (09:15)
[2016-06-29] MEDS ORDERED: ZOLPIDEM 5 MG TAB PO PRN (09:15)
[2016-06-29] MEDS: FUROSEMIDE 40 MG TAB PO SCH ×2 (09:39→15:36)
[2016-06-29] MEDS: NYSTATIN 100,000 UNIT/GM POWD 15 GM TOPICAL SCH ×2 (09:39→21:26)
[2016-06-29 11:36] LABS: Glucose,Whole Blood 112 mg/dL (75-99)
[2016-06-29] MEDS: CYANOCOBALAMIN 500 MCG TAB PO SCH (11:45)
[2016-06-29] MEDS: FERROUS SULFATE 325 MG TAB PO SCH (11:45)
[2016-06-29] MEDS: ZINC SULFATE 220 MG CAP PO SCH (11:46)
[2016-06-29] MEDS: MAGNESIUM OXIDE 400 MG TAB PO SCH (11:46)
[2016-06-29] MEDS: CHOLECALCIFEROL 1,000 UNIT TAB PO SCH (11:46)
[2016-06-29] MEDS: ONDANSETRON 4 MG/2 ML VIAL IVP PRN ×2 (13:07→23:41)
--- NOTE | 2016-06-29 16:25 | CC ---
DATE OF SERVICE: June 29, 2016. PERFORMING PHYSICIAN: Hemres Mancera M.D., rig builder helper. PROCEDURE PERFORMED: Successful stenting of the proximal left anterior descending artery using 3.0 x 15 and 2.75 x 8 mm Promus Premier drug-eluting stent with a good angiographic results. INDICATION: This is a pleasant 71-year-old female patient who is known to have coronary artery disease, who underwent in the past stenting of the proximal left anterior descending artery. She was experiencing chest discomfort. She underwent heart catheterization a few months ago and that showed critical disease involving the ostial left circumflex, which felt it is a high-risk intervention as well as severe in-stent restenosis involving the left anterior descending artery. The patient was seen and evaluated by surgeon who turned her down from open heart surgery. The decision was made toward percutaneous coronary intervention on the LAD. Approach: Right common femoral artery. COMPLICATIONS: None. Level of sedation: Moderate with a sedation length of one hour. PROCEDURE DESCRIPTION: After obtaining informed consent, the patient was brought to the cardiac lab manager. The right common femoral artery was cannulated using micropuncture technique. The micropuncture wire passed easily, then I placed a 6 Lithuanian sheath in the right common femoral artery. Subsequently, I did selective right common femoral artery angiogram. After that, anticoagulation was initiated using Angiomax. Then I did engage the left main using JL4 guiding catheter. The LAD was wired using a Whisper wire. I predilated using a 3.0 x 12 mm balloon. Then I deployed a 3.0 x 15 mm Promus Premier drug-eluting stent, where the stent was positioned under fluoroscopy guidance and it was deployed under 14 atmospheres for 30 seconds. The following angiogram showed a lesion distal to the stent seems to be hazy and seems to be in the range of 60% to 70%. I decided to cover that lesion with a stent. So I deployed 2.75 x 15 mm another Promus Premier drug-eluting stent, where the stent was positioned under fluoroscopy guidance with about 3 to 4 mm overlap between the previous stent. The second stent was deployed under 12 atmospheres for 20 seconds. The following angiogram showed good angiographic result without perforation and without dissection with JAYSON-3 flow. The procedure was completed at that time without any complication. POSTPROCEDURE MANAGEMENT: 1. Dual antiplatelet therapy. 2. Risk factor modifications. 3. Follow up with the patient.
--- NOTE | 2016-06-29 16:26 | LTR ---
June 29, 2016 RE: Carla Garvin Dear Chris: Ms. Carla Garvin underwent successful stenting of the proximal left anterior descending artery with a good angiographic result and without any complication and that was performed for severe in-stent restenosis as well as ongoing chest discomfort. I want to thank you for allowing us to participate in her care and please do not hesitate to call if you have any questions or concerns. Sincerely, USHA MILIAN MD
[2016-06-29 16:52] LABS: Glucose,Whole Blood 117 mg/dL (75-99)
[2016-06-29 20:44] LABS: Glucose,Whole Blood 228 mg/dL (75-99)
[2016-06-29] MEDS: INSULIN GLARGINE 100 UNIT/ML 10 ML VIAL SQ SCH (21:29)
[2016-06-30 02:59] VITALS: RESP 18
[2016-06-30 06:15] LABS: Glucose,Whole Blood 86 mg/dL (75-99)
[2016-06-30 06:30] LABS: Basophils % (A) 0 %; CH 31.5; CHCM 30.5; Eosinophils # (A) 0.4 k/uL (0-0.7); Eosinophils % (A) 5 %; HCT 32.9 % (34.0-46.0); HDW 2.36; HGB 10.1 gm/dL (11.4-16.0); Hypochromasia Slight; Luc # (Auto) 0.11; Luc % (Auto) 1; Lymphocytes # (A) 1.2 k/uL (1.0-4.8); Lymphocytes % (A) 14 %; MCH 31.9 pg (25.0-35.0); MCHC 30.6 g/dL (31.0-37.0); Macrocytosis Slight; Monocytes # (A) 0.6 k/uL (0-1.0); Monocytes % (A) 7 %; Neutrophils # (A) 5.9 k/uL (1.3-7.7); Neutrophils % (A) 72 %; RBC 3.16 m/uL (3.80-5.40); RDW 13.6 % (11.5-15.5); WBC 8.2 k/uL (3.8-10.6); WBC (Perox) 9.28
[2016-06-30 06:35] LABS: Calcium 8.9 mg/dL (8.4-10.2); Potassium 4.8 mmol/L (3.5-5.1)
[2016-06-30] MEDS: PANTOPRAZOLE 40 MG TABLET PO SCH (06:39)
[2016-06-30] MEDS ORDERED: ASPIRIN 325 MG TAB PO SCH (09:00)
[2016-06-30] MEDS ORDERED: CLOPIDOGREL 75 MG TAB PO SCH (09:16)
[2016-06-30] MEDS: CITALOPRAM HYDROBROMIDE 20 MG TAB PO SCH (09:19)
[2016-06-30] MEDS: ZINC SULFATE 220 MG CAP PO SCH (09:19)
[2016-06-30] MEDS: CHOLECALCIFEROL 1,000 UNIT TAB PO SCH (09:19)
[2016-06-30] MEDS: MAGNESIUM OXIDE 400 MG TAB PO SCH (09:19)
[2016-06-30] MEDS: FUROSEMIDE 40 MG TAB PO SCH (09:19)
[2016-06-30] MEDS: LISINOPRIL 20 MG TAB PO SCH (09:20)
[2016-06-30] MEDS: FERROUS SULFATE 325 MG TAB PO SCH (09:20)
[2016-06-30] MEDS: CYANOCOBALAMIN 500 MCG TAB PO SCH (09:20)
[2016-06-30] MEDS: lamoTRIgine 25 MG TAB PO SCH (09:20)
[2016-06-30] MEDS: ALLOPURINOL 100 MG TAB PO SCH (09:20)
[2016-06-30] MEDS: OXYBUTYNIN XL 5 MG TAB.ER.24 PO SCH (09:20)
[2016-06-30] MEDS: CLOPIDOGREL 75 MG TAB PO SCH (09:20)
[2016-06-30] MEDS: METOPROLOL TARTRATE 25 MG TAB PO SCH (09:20)
[2016-06-30] MEDS: NYSTATIN 100,000 UNIT/GM POWD 15 GM TOPICAL SCH (09:20)
[2016-06-30] MEDS: clonazePAM 1 MG TAB PO SCH (09:25)
[2016-06-30 10:25] VITALS: BP 109/59; PULSE 58; TEMP 97.6
--- NOTE | 2016-07-02 08:53 | DS ---
DATE OF ADMISSION: 06/28/2016 DATE OF DISCHARGE: 06/30/2016 BRIEF HISTORY: This is a pleasant 71-year-old female patient who is known to have severe two-vessel coronary artery disease involving the proximal LAD and ostial left circumflex who was admitted to the hospital on June 29 and underwent successful stenting of the proximal left anterior descending artery for severe in-stent restenosis. The procedure was performed from the right groin, which was soft and nontender and without any bruises or discrete hematomas. The patient was then discharged home on dual antiplatelet therapy and I will follow up with the patient as an outpatient in a week.
== END 2016-06-30 11:17 | disposition home or self-care (01) ==
LOC: CATHCVL 17:10 → 6SEL 17:13
PROVIDERS: ADMIT Internal Medicine Interventional Cardiology; ATTEND Internal Medicine Interventional Cardiology
DX: T82.855A Stenosis of coronary artery stent, initial encounter (principal); I25.119 Atherosclerotic heart disease of native coronary artery with unspecified angina pectoris; E11.9 Type 2 diabetes mellitus without complications; E78.5 Hyperlipidemia, unspecified; Z79.02 Long term (current) use of antithrombotics/antiplatelets; Z79.82 Long term (current) use of aspirin; Z79.4 Long term (current) use of insulin; Z79.891 Long term (current) use of opiate analgesic; Z79.899 Other long term (current) drug therapy; Z88.5 Allergy status to narcotic agent; Z88.0 Allergy status to penicillin; Z88.6 Allergy status to analgesic agent; Z91.040 Latex allergy status; Y83.1 Surgical operation with implant of artificial internal device as the cause of abnormal reaction of the patient, or of later complication, without mention of misadventure at the time of the procedure
CPT/HCPCS: 96361 ×2; 93005; 97162; 97165; 80048 ×2; 85025 ×2; C9600 ×2; G0378 ×4; C1769 ×5; C1887; C1725; C1894; C1874; C1760; J2001; J2250; Q9967; J2405; J0583

== ENCOUNTER 2016-10-19 10:50 | Inpatient (IN) | payer MEDICARE ==
[2016-10-19 12:45] LABS: Glucose,Whole Blood 184 mg/dL (75-99)
--- NOTE | 2016-10-19 14:05 | XR ---
2 view abdomen HISTORY: Severe constipation Views of the abdomen on 3 images Comparison to chest x-ray 08/26/2016 Heart is enlarged, lung bases are clear. There is a dextroscoliosis centered at the mid lumbar spine. Quadrant. There are air-fluid levels without bowel distention. No pneumoperitoneum. Stimulator is pr esent in the left gluteal region, leads coursing towards the left sacrum. Bone mineralization is redu nicolette. Degenerative disc changes in the visualized spine. There is retained fecal debris. IMPRESSION: Correlate for fecal stasis. Additional findings above.
[2016-10-19] MEDS: SODIUM CHLORIDE 0.9% 1,000 ML IV SCH (14:25)
[2016-10-19 14:36] LABS: Basophils % (A) 0 %; CH 32.2; CHCM 31.6; Eosinophils # (A) 0.3 k/uL (0-0.7); Eosinophils % (A) 3 %; HCT 35.1 % (34.0-46.0); HGB 10.9 gm/dL (11.4-16.0); Luc # (Auto) 0.12; Luc % (Auto) 1; Lymphocytes # (A) 1.3 k/uL (1.0-4.8); Lymphocytes % (A) 14 %; MCH 31.8 pg (25.0-35.0); MCHC 31.1 g/dL (31.0-37.0); MCV 102.3 fL (80.0-100.0); Macrocytosis Slight; Mean Platelet Volume 7.4; Monocytes # (A) 0.5 k/uL (0-1.0); Monocytes % (A) 6 %; Neutrophils % (A) 76 %; RBC 3.43 m/uL (3.80-5.40); RDW 13.3 % (11.5-15.5); WBC 9.2 k/uL (3.8-10.6)
[2016-10-19] MEDS ORDERED: POLYETHYLENE GLYCOL 3350 17 GM POWD.PACK PO STA (14:40)
[2016-10-19] MEDS ORDERED: DOCUSATE 100 MG CAP PO STA (14:42)
[2016-10-19] MEDS ORDERED: NA PHOS,M-B/NA PHOS,DI-BA 133 ML ENEMA RECTAL ONE (14:43)
[2016-10-19 14:44] LABS: Calcium 9.2 mg/dL (8.4-10.2); Potassium 5.5 mmol/L (3.5-5.1); Total Bilirubin 0.3 mg/dL (0.2-1.3); Total Protein 5.7 g/dL (6.3-8.2)
[2016-10-19] MEDS: LACTULOSE 20 GM/30 ML CUP PO SCH ×2 (15:11→21:55)
[2016-10-19] MEDS: HEPARIN SODIUM,PORCINE 5,000 UNIT/ML 1 ML VIAL SQ SCH (15:14)
[2016-10-19] MEDS: INSULIN LISPRO (humaLOG) 300 UNIT/3 ML VIAL SQ SCH ×2 (17:32→21:56)
[2016-10-19 17:35] LABS: Glucose,Whole Blood 151 mg/dL (75-99)
[2016-10-19 17:58] LABS: Hemoglobin A1C 6.5 % (4.2-6.1)
[2016-10-19 20:51] LABS: Glucose,Whole Blood 174 mg/dL (75-99)
[2016-10-19] MEDS ORDERED: INSULIN GLARGINE 100 UNIT/ML 10 ML VIAL SQ SCH (21:00)
[2016-10-19] MEDS ORDERED: clonazePAM 1 MG TAB PO PRN (21:00)
[2016-10-19] MEDS: DOCUSATE 100 MG CAP PO SCH (21:55)
[2016-10-19] MEDS: ATORVASTATIN 40 MG TAB PO SCH (21:55)
[2016-10-19] MEDS: traMADol 50 MG TAB PO PRN (22:48)
[2016-10-20] MEDS: HEPARIN SODIUM,PORCINE 5,000 UNIT/ML 1 ML VIAL SQ SCH ×4 (00:31→23:01)
[2016-10-20] MEDS: SODIUM CHLORIDE 0.9% 1,000 ML IV SCH ×2 (06:16→16:13)
[2016-10-20 07:27] LABS: Glucose,Whole Blood 119 mg/dL (75-99)
--- NOTE | 2016-10-20 07:41 | CT ---
EXAMINATION TYPE: CT abdomen pelvis wo con DATE OF EXAM: 10/19/2016 COMPARISON: 10/07/2015 HISTORY: Constipation x [address] DLP: 2872.00 mGycm Automated exposure control for dose reduction was used. TECHNIQUE: Helical acquisition of images was performed from the lung bases through the pelvis. FINDINGS: Lack of intravenous and oral contrast limits evaluation of the hollow and solid viscera. LUNG BASES: Scattered bibasilar subsegmental atelectasis is present. LIVER/GB: Unremarkable unenhanced morphology. Gallbladder is surgically absent. PANCREAS: Pancreatic atrophy throughout the entirety of the parenchyma with no appreciable ductal dil atation. SPLEEN: No significant abnormality is seen. ADRENALS: No significant abnormality is seen. KIDNEYS: No evidence of hydronephrosis or nephrolithiasis. The right kidney is mildly asymmetrically enlarged in comparison to the left. There is bilateral nonspecific mild perinephric fat stranding. FREE AIR: No free air is visualized RETROPERITONEAL ADENOPATHY: None visualized REPRODUCTIVE ORGANS: Uterus is surgically absent. URINARY BLADDER: No significant abnormality is seen. PELVIC ADENOPATHY: None visualized. OSSEOUS STRUCTURES: Degenerative changes are appreciated of the lumbosacral spine displayed is facet arthropathy, endplate sclerosis, and degenerative disc disease. Grade 1 anterolisthesis of L4 on L5 is seen without pars interarticularis defects, likely on a degenerative basis. Sacral nerve root stim ulator is seen within the subcutaneous soft tissues. BOWEL: There is been interval development of circumferential pericolonic fat stranding within the me sorectal fat of the rectum without significant wall thickening (2 mm left paracentrally). Adjacent fa scial thickening is noted. Stool is seen in the central and right paracentral posterior rectum abutti ng the wall making measurement difficult at this location. Fat stranding extends into the presacral s pace with no soft tissue component identified. No adjacent lymphadenopathy is appreciated. IMPRESSION: PERIRECTAL FAT STRANDING AND FASCIAL THICKENING WITHOUT APPRECIABLE RECTAL WALL THICKENING ALTHOUGH S TOOL PARTIALLY LIMITS EVALUATION. FINDINGS ARE MOST SUGGESTIVE OF PROCTITIS. DIRECT VISUALIZATION AFT ER RESOLUTION OF SYMPTOMS COULD BE PERFORMED TO ENSURE NO UNDERLYING POLYP/SESSILE MASS.
[2016-10-20] MEDS: INSULIN LISPRO (humaLOG) 300 UNIT/3 ML VIAL SQ SCH ×4 (08:05→21:01)
[2016-10-20] MEDS: CHOLECALCIFEROL 1,000 UNIT TAB PO SCH (08:08)
[2016-10-20] MEDS: PANTOPRAZOLE 40 MG TABLET PO SCH (08:08)
[2016-10-20] MEDS: CYANOCOBALAMIN 500 MCG TAB PO SCH (08:08)
[2016-10-20] MEDS: CITALOPRAM HYDROBROMIDE 20 MG TAB PO SCH (08:08)
[2016-10-20] MEDS: ASPIRIN 81 MG CHEW PO SCH (08:08)
[2016-10-20] MEDS: FERROUS SULFATE 325 MG TAB PO SCH (08:09)
[2016-10-20] MEDS: LACTULOSE 20 GM/30 ML CUP PO SCH (08:09)
[2016-10-20] MEDS: DOCUSATE 100 MG CAP PO SCH ×2 (08:09→20:17)
[2016-10-20] MEDS: METOPROLOL TARTRATE 25 MG TAB PO SCH (08:09)
[2016-10-20] MEDS: POLYETHYLENE GLYCOL 3350 17 GM POWD.PACK PO SCH (08:09)
[2016-10-20] MEDS: traMADol 50 MG TAB PO PRN ×2 (08:14→20:19)
[2016-10-20 12:14] LABS: Glucose,Whole Blood 137 mg/dL (75-99)
[2016-10-20] MEDS ORDERED: PEG 3350-NA SULF,BICARB,CL/KCL 4,000 ML BOTTLE PO ONE (12:23)
--- NOTE | 2016-10-20 12:37 | P.PN ---
Subjective Principal diagnosis: 71-year-old female seen and evaluated this morning at bedside. Patient was admitted 10/19/2016 for abdominal pain and constipation from blue water Altha. Abdominal x-ray showed fecal stasis. Patient received Colace, MiraLAX, lactulose, and fleets enema yesterday. Patient states she has had multiple bowel movements since. CT of the abdomen was completed. Results indicate limited study but most suggestive of proctitis. Patient states she is tolerating liquid diet. Denies nausea, vomiting, shortness of breath, or chest pain. Patient did report a new bruise to her right breast. Patient denies any injury to the area. Small hematoma present. Objective - Vital Signs Vital signs: Vital Signs Temp 97.2 F L 10/20/16 07:00 Pulse 58 L 10/20/16 07:00 Resp 16 10/20/16 07:00 BP 103/43 10/20/16 07:00 Pulse Ox 99 10/20/16 07:00 Intake & Output 10/19/16 10/20/16 10/20/16 18:59 06:59 18:59 Intake Total 200 250 Output Total 101 Balance 99 250 Weight 141 kg Intake: Oral 200 250 Output: Urine 101 Other: Voiding Method Bedside Commode Bedside Commode Bedside Commode Bedpan Bedpan Bedpan Diaper Diaper Diaper Incontinent Incontinent Incontinent # Voids 2 2 # Bowel Movements 2 8 1 - Exam GENERAL: Alert and oriented. Appears in no acute distress. Pleasant. RESPIRATORY: Lungs clear bilaterally. No use of accessory muscles. Patient maintaining oxygen saturation greater than 92%. CARDIOVASCULAR: S1 and S2 noted. No murmurs auscultated. No JVD noted. EXTREMITIES: No edema noted. Palpable pedal pulses +2. ABDOMEN: Morbidly obese. Abdomen soft and round. Normal active bowel sounds auscultated 4 quadrants. No pain or tenderness noted upon palpation. SKIN: Patient has bruising to right breast with small hematoma present. - Labs CBC & Chem 7: 10/19/16 14:06 10/19/16 14:06 Labs: Abnormal Lab Results - Last 24 Hours (Table) 10/19/16 10/19/16 10/19/16 Range/Units 12:43 14:06 14:06 RBC 3.43 L (3.80-5.40) m/uL Hgb 10.9 L (11.4-16.0) gm/dL MCV 102.3 H (80.0-100.0) fL Potassium 5.5 H (3.5-5.1) mmol/L Chloride 94 L (98-107) mmol/L Carbon Dioxide 38 H (22-30) mmol/L BUN 39 H (7-17) mg/dL Creatinine 1.70 H (0.52-1.04) mg/dL Glucose 159 H (74-99) mg/dL POC Glucose (mg/dL) 184 H (75-99) mg/dL Hemoglobin A1c (4.2-6.1) % Total Protein 5.7 L (6.3-8.2) g/dL 10/19/16 10/19/16 10/19/16 Range/Units 14:06 17:31 20:45 RBC (3.80-5.40) m/uL Hgb (11.4-16.0) gm/dL MCV (80.0-100.0) fL Potassium (3.5-5.1) mmol/L Chloride (98-107) mmol/L Carbon Dioxide (22-30) mmol/L BUN (7-17) mg/dL Creatinine (0.52-1.04) mg/dL Glucose (74-99) mg/dL POC Glucose (mg/dL) 151 H 174 H (75-99) mg/dL Hemoglobin A1c 6.5 H (4.2-6.1) % Total Protein (6.3-8.2) g/dL 10/20/16 Range/Units 07:25 RBC (3.80-5.40) m/uL Hgb (11.4-16.0) gm/dL MCV (80.0-100.0) fL Potassium (3.5-5.1) mmol/L Chloride (98-107) mmol/L Carbon Dioxide (22-30) mmol/L BUN (7-17) mg/dL Creatinine (0.52-1.04) mg/dL Glucose (74-99) mg/dL POC Glucose (mg/dL) 119 H (75-99) mg/dL Hemoglobin A1c (4.2-6.1) % Total Protein (6.3-8.2) g/dL Assessment and Plan (1) Abdominal pain Narrative/Plan: Present on admission, likely due to fecal stasis as suggested by abdominal x- ray Status: Acute (2) Diabetes mellitus type 2 in obese Status: Acute (3) Coronary artery disease Narrative/Plan: Patient with history of stenting to the LAD and LCX Status: Acute (4) Essential (primary) hypertension Status: Acute (5) Chronic, continuous use of opioids Narrative/Plan: Due to chronic pain Status: Chronic Plan: Continue to monitor blood glucose and treat as indicated. Patient to be evaluated by surgery due to abdominal CT results. Consult placed for Dr. Herrera GI/DVT prophylaxis Monitor vital signs and address as appropriate Continue to monitor labs Continue current liquid diet Continue IV hydration Continue with home meds Initiate telemetry monitoring-Patient had single episode of bradycardia in the 30's. Parameters in place for lopressor administration. The above impression and plan of care have been discussed and directed by signing physician. Olivia Nicolas, nurse practitioner, acting as scribe for signing physician.
[2016-10-20] MEDS ORDERED: ONDANSETRON 4 MG/2 ML VIAL IVP PRN (14:54)
--- NOTE | 2016-10-20 15:15 | HP ---
DATE OF SERVICE: 10/19/2016 CHIEF COMPLAINT: A 71-year-old white female was admitted for acute abdominal pain 8/10 level, was unable to have a bowel movement. She also has a history of coronary artery disease and stents. Due to increased abdominal pain, unable to ambulate due to pain 8 to 9/10, failing outpatient treatment with stool softeners with aloc-mvq-hafcwhc medications, was admitted to the hospital with significant abdominal pain, monitoring home care nurse thought the patient had a small bowel obstruction at which time she was admitted to the hospital for monitoring. She has a history of coronary artery disease with stents and is morbidly obese and generalized debility. She had dyslipidemia and depression, anxiety. HOME MEDICINES: 1. Aspirin 81 daily. 2. Lipitor 40 daily. 3. Vitamin D3 one thousand daily. 4. Citalopram 40 daily. 5. Clonazepam 1 mg daily. 6. Vitamin B12 daily. 7. Colace 100 mg b.i.d. 8. Fentanyl patch 75 mcg every 72 hours. 9. Ferrous sulfate 325 daily. 10. Lantus 50 units daily. 11. Accu-Chek protocol. 12. Metoprolol 25 daily. 13. Tramadol for pain, 50 q.12 p.r.n. 14. MiraLAX 17 gm p.o. daily. REVIEW OF SYSTEMS: A 14-point review of systems negative except for as mentioned in the HPI. VITAL SIGNS: Temp 97, pulse is 58 with a low of 39, respiratory 16 to 18, blood pressure is 96 to 103/40s, O2 is 99% to 100% on 2 L. ENDOCRINE: BMI is over 50. CARDIOVASCULAR: S1, S2, eagle. Lungs show decreased breath sounds x4. PSYCH: Flat mood and affect. GI: Distended due to obesity. CHEST: Palpation diffuse, no organomegaly, no rebound. EXTREMITIES: Lymphedema-type changes, stasis changes in the lower legs. MUSCULOSKELETAL: Range of motion is fair in the knees and the other joints. ASSESSMENT: 1. Obesity, lymphedema-type changes. 2. Acute abdominal pain, unclear etiology. 3. CAT scan of the abdomen is being ordered. Recommendations are pending. Significant bradycardia will have to be evaluated by Cardiology. Thyroid tests will be ordered. EKG will be ordered. Multiple medical conditions. Continue home medications. Accu-Chek protocol. MTDD
--- NOTE | 2016-10-20 16:14 | P.GSCN ---
History of Present Illness Consult date: 10/20/16 Reason for Consult: Abdominal pain History of present illness: 71-year-old female who was a direct admission from the [facility] 19 after patient reportedly was having inability to have a bowel movement. Patient stated she was experiencing acute abdominal pain and had not had a bowel movement in over 10 days. Patient reports that she often has chronic constipation. Patient was admitted to the hospital after patient was reportedly experiencing significant symptomatic abdominal pain. Home care nursing staff were concerned about the patient's abdominal pain and there was a concern of possible bowel obstruction. Patient stated that she did try to use hzhj-lvz-[id number] products for her constipation there was no relief. Subsequently the patient was admitted to the services of the attending. Patient gives a history of having chronic constipation and stated that she did have a colonoscopy done greater than 10 years . Patient stated that she was told she had polyps removed but did not follow-up did not have a repeat colonoscopy. Patient states that she has had intermittent episodes of abdominal cramping points to the lower abdomen as to the reference point additionally patient reports that she has been experiencing for the past several months episodes of difficulty in swallowing. Patient does have a history of coronary artery disease with prior coronary stenting. On admission the abdominal x-ray was obtained did show fecal stasis. Patient was given Colace, MiraLAX, and lactulose and fleets enema and has had multiple bowel movements since. Additionally a CAT scan of the abdomen was obtained was a limited study but it did suggest that there was proctitis. Patient states that she has not had any blood noted in her stool. Patient does state that she has limited mobility. Additionally patient has chronic pain uses a Duragesic patch as well as Ultram for pain control. Patient does report this been no nausea vomiting and no unintentional weight loss no blood noted in stool Review of Systems Essentially unremarkable except as mentioned in the present illness 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 History of Any Multi-Drug Resistant Organisms: MRSA Year Discovered:: 04/02/11 MDRO Source:: L chest/L lower leg/ankle Past Surgical History: Bladder Surgery, Cholecystectomy, Heart Catheterization, Heart Catheterization With Stent, Hysterectomy Additional Past Surgical History / Comment(s): PCI with a total of 5 stents per pt with last stent placed 06/29/16, partial parathyroidectomy, bilateral cataracts removed, I and D of L chest wall abscess and L ankle wound, bladder surgery with implant of stimulator system 02/2010, EGD/colonoscoy. Past Anesthesia/Blood Transfusion Reactions: No Reported Reaction Additional Past Anesthesia/Blood Transfusion Reaction / Comm: Pt states she has received blood in the past without reaction. Date of Last Stent Placement:: 06/29/16 Smoking Status: Never smoker - Past Family History Father Family Medical History: Cancer, Coronary Artery Disease (CAD) Additional Family Medical History / Comment(s): Father had prostate cancer. Mother Family Medical History: Asthma, COPD Medications and Allergies Home Medications Medication Instructions Recorded Confirmed Type Citalopram Hydrobromide [CeleXA] 40 mg PO QAM 09/20/14 10/19/16 History clonazePAM [KlonoPIN] 1 mg PO BID 09/20/14 10/19/16 History fentaNYL 75MCG/HR PATCH [Duragesic 1 patch TRANSDERM Q72H 09/20/14 10/19/16 History 75MCG/HR] Cholecalciferol [Vitamin D3] 1,000 unit PO DAILY 03/02/15 10/19/16 History Cyanocobalamin [Vitamin B-12] 1,000 mcg PO DAILY 03/02/15 10/19/16 History Omeprazole 40 mg PO AC-BRKFST 10/05/15 10/19/16 History Metoprolol Tartrate [Lopressor] 25 mg PO DAILY 10/19/16 10/19/16 History traMADol HCl [Ultram] 50 mg PO BID 10/19/16 10/19/16 History Allergies Allergy/AdvReac Type Severity Reaction Status Date / Time adhesive Allergy Rash/Hives, Verified 10/19/16 12:21 W/ TAPES, CAN USE PAPER TAPE codeine Allergy Anaphylaxis Verified 10/19/16 12:21 latex Allergy Rash/Hives Verified 10/19/16 12:21 morphine Allergy Anaphylaxis Verified 10/19/16 12:21 nitroglycerin Allergy Unknown Verified 10/19/16 12:21 [From Nitrostat] Penicillins Allergy Anaphylaxis Verified 10/19/16 12:21 propoxyphene napsylate Allergy Anaphylaxis Verified 10/19/16 12:21 [From Darvocet-N 100] tuberculin, purified protein Allergy Rash/Hives Verified 10/19/16 12:21 deriva [tuberculin,purif.prot.deriv.] Surgical - Exam Vital Signs Temp Pulse Resp BP Pulse Ox 96.5 F L 39 L 18 96/42 100 10/19/16 15:00 10/19/16 15:00 10/19/16 15:00 10/19/16 15:00 10/19/16 15:00 GENERAL APPEARANCE: 71-year-old female obese patient is alert, oriented, in no acute distress. Talkative pleasant VITAL SIGNS: Reviewed HEENT: Head is normocephalic and atraumatic. Pupils are equal and reactive. The nares are patent. Oropharynx is clear without lesions. NECK: Supple without lymphadenopathy. Traches midline. HEART: S1, S2. Regular rate and rhythm. No murmur noted currently denying chest pain LUNGS: No crackles or wheezes are heard. Posterior diminished at the bases Chest a purple ecchymotic bruise noted to the right chest patient denies any injury ABDOMEN: Soft obese , nontender, nondistended with good bowel sounds. No peritoneal signs. No palpable organomegaly or masses. Frequent bowel movements documented EXTREMITIES: Normal skin color and turgor. No cyanosis, rash, ulceration, clubbing or edema. Radial pedal pulses are 2/4 bilaterally. NEUROLOGICAL: No focal deficits. Strength and sensation are grossly intact. Skin extensive skin excoriation noted under bilateral breast and inner thighs Results - Labs 10/19/16 14:06 10/19/16 14:06 Abnormal Lab Results - Last 24 Hours (Table) 10/19/16 10/19/16 10/19/16 Range/Units 14:06 17:31 20:45 POC Glucose (mg/dL) 151 H 174 H (75-99) mg/dL Hemoglobin A1c 6.5 H (4.2-6.1) % 10/20/16 10/20/16 Range/Units 07:25 11:48 POC Glucose (mg/dL) 119 H 137 H (75-99) mg/dL Hemoglobin A1c (4.2-6.1) % Diabetes panel 10/19/16 Range/Units 14:06 Hemoglobin A1c 6.5 H (4.2-6.1) % Thyroid panel 10/19/16 Range/Units 14:06 TSH 4.060 (0.465-4.680) mIU/L Pituitary panel 10/19/16 Range/Units 14:06 TSH 4.060 (0.465-4.680) mIU/L Assessment and Plan Plan: Impression Present on admission abdominal pain suspect due to fecal stasis as evident on an abdominal x-ray Chronic pain opiate dependency Chronic constipation suspect opiate-induced Super morbid obesity BMI 58 Chronic debility limited mobility suspect due to body habitus Type 2 diabetes primary hypertension Known coronary artery disease with prior coronary stenting circumflex and LAD History of dysphasia chronic Plan Patient to be scheduled for an EGD and a colonoscopy in the morning Bowel prep to be initiated today Resume home meds as appropriate Half dose the evening dose of Lantus Monitor blood sugars address as indicated Bowel stimulant program Continue recommendations by medical service defer to DVT and GI prophylaxis No evidence of an acute abdomen Thank you for allowing us to participate in the surgical management of your patient further recommendations pending The above impression and plan of care have been discussed and directed by signing physician. Gregoria De La Cruz nurse practitioner acting as scribe for signing physician.
[2016-10-20] MEDS ORDERED: LACTATED RINGERS 1,000 ML IV SCH (17:02)
[2016-10-20 17:16] LABS: Glucose,Whole Blood 126 mg/dL (75-99)
[2016-10-20] MEDS: ATORVASTATIN 40 MG TAB PO SCH (20:16)
[2016-10-20 20:38] LABS: Glucose,Whole Blood 108 mg/dL (75-99)
[2016-10-20] MEDS ORDERED: INSULIN GLARGINE 100 UNIT/ML 10 ML VIAL SQ SCH (21:00)
[2016-10-21] MEDS: SODIUM CHLORIDE 0.9% 1,000 ML IV SCH ×2 (06:15→14:12)
[2016-10-21 07:37] LABS: Glucose,Whole Blood 103 mg/dL (75-99)
[2016-10-21 07:44] LABS: Basophils % (A) 0 %; CH 32.4; CHCM 31.5; Eosinophils # (A) 0.4 k/uL (0-0.7); Eosinophils % (A) 5 %; HCT 31.2 % (34.0-46.0); HGB 9.6 gm/dL (11.4-16.0); Luc # (Auto) 0.14; Luc % (Auto) 2; Lymphocytes # (A) 1.2 k/uL (1.0-4.8); Lymphocytes % (A) 16 %; MCH 31.7 pg (25.0-35.0); MCHC 30.8 g/dL (31.0-37.0); MCV 103.2 fL (80.0-100.0); Macrocytosis Slight; Mean Platelet Volume 7.8; Monocytes # (A) 0.5 k/uL (0-1.0); Monocytes % (A) 7 %; Neutrophils % (A) 69 %; RBC 3.02 m/uL (3.80-5.40); RDW 13.1 % (11.5-15.5); WBC 7.3 k/uL (3.8-10.6); WBC (Perox) 7.55
[2016-10-21] MEDS: INSULIN LISPRO (humaLOG) 300 UNIT/3 ML VIAL SQ SCH ×4 (08:23→21:02)
[2016-10-21] MEDS ORDERED: LACTULOSE 20 GM/30 ML CUP PO SCH (09:00)
[2016-10-21] MEDS ORDERED: PROPOFOL 10 MG/ML 20 ML VIAL IV ONE (10:12)
[2016-10-21] MEDS ORDERED: IV FLUID CONTINUATION 1,000 ML IV ONE (10:12)
[2016-10-21] MEDS ORDERED: KETAMINE 10 MG/ML 20 ML VIAL ONE (10:12)
[2016-10-21] MEDS ORDERED: LIDOCAINE 1% INJ 10MG/ML (20 ML MDV) ONE (10:12)
[2016-10-21] MEDS: POLYETHYLENE GLYCOL 3350 17 GM POWD.PACK PO SCH (11:28)
[2016-10-21] MEDS: ASPIRIN 81 MG CHEW PO SCH (11:29)
[2016-10-21] MEDS: CITALOPRAM HYDROBROMIDE 20 MG TAB PO SCH (11:29)
[2016-10-21] MEDS: CYANOCOBALAMIN 500 MCG TAB PO SCH (11:29)
[2016-10-21] MEDS: PANTOPRAZOLE 40 MG TABLET PO SCH (11:29)
[2016-10-21] MEDS: HEPARIN SODIUM,PORCINE 5,000 UNIT/ML 1 ML VIAL SQ SCH ×3 (11:29→23:40)
[2016-10-21] MEDS: CHOLECALCIFEROL 1,000 UNIT TAB PO SCH (11:29)
[2016-10-21] MEDS: DOCUSATE 100 MG CAP PO SCH ×2 (11:29→21:03)
[2016-10-21] MEDS: METOPROLOL TARTRATE 25 MG TAB PO SCH (11:29)
[2016-10-21] MEDS: FERROUS SULFATE 325 MG TAB PO SCH (11:30)
[2016-10-21 11:49] VITALS: BMI 58.7
[2016-10-21 12:28] LABS: Glucose,Whole Blood 96 mg/dL (75-99)
--- NOTE | 2016-10-21 13:14 | P.OP ---
Date of Procedure: 10/21/16 Preoperative Diagnosis: Proctitis GERD Postoperative Diagnosis: Mild antral gastritis No evidence of hiatal hernia No evidence esophagitis Normal colon Procedure(s) Performed: EGD Colonoscopy Implants: Anesthesia: MAC Surgeon: Flaco Rowell Pathology: other (Antrum) Condition: stable Disposition: PACU Indications for Procedure: Operative Findings: Description of Procedure: P PROCEDURE: The patient was placed on the endoscopy table in the lateral position. Digital rectal examination was performed which revealed no abnormalities. Flexible colonoscope was then placed in the patient's anus and passed throughout the entire colon. The ileocecal valve was visualized. The cecum, ascending, transverse, descending and sigmoid colon were normal. The rectum was normal as well. There were no masses, polyps or diverticula noted in the entire colon. Next, the gastroscope placed oropharynx and passed in the esophagus and stomach. Scope was then placed through the pylorus. The first and second portion of duodenum appeared normal. Scope was then brought back the antrum this. Mildly inflamed. A biopsies performed. Scope was retroflexed and remainder some appeared normal. There is no evidence of hiatal hernia. The GE junction was at 40 cm the distal esophagus appeared normal. The proximal esophagus appeared normal. Scope was withdrawn for patient.
[2016-10-21 17:12] LABS: Glucose,Whole Blood 144 mg/dL (75-99)
[2016-10-21] MEDS ORDERED: INSULIN GLARGINE 100 UNIT/ML 10 ML VIAL SQ SCH (21:00)
[2016-10-21 21:03] LABS: Glucose,Whole Blood 150 mg/dL (75-99)
[2016-10-21] MEDS: ATORVASTATIN 40 MG TAB PO SCH (21:03)
[2016-10-21] MEDS: traMADol 50 MG TAB PO PRN (23:38)
[2016-10-22 07:30] LABS: Glucose,Whole Blood 138 mg/dL (75-99)
[2016-10-22 07:57] VITALS: BP 131/62; PULSE 56; RESP 20; TEMP 97.3
[2016-10-22] MEDS: HEPARIN SODIUM,PORCINE 5,000 UNIT/ML 1 ML VIAL SQ SCH (08:15)
[2016-10-22] MEDS: CITALOPRAM HYDROBROMIDE 20 MG TAB PO SCH (08:15)
[2016-10-22] MEDS: CHOLECALCIFEROL 1,000 UNIT TAB PO SCH (08:15)
[2016-10-22] MEDS: FERROUS SULFATE 325 MG TAB PO SCH (08:15)
[2016-10-22] MEDS: CYANOCOBALAMIN 500 MCG TAB PO SCH (08:15)
[2016-10-22] MEDS: DOCUSATE 100 MG CAP PO SCH (08:15)
[2016-10-22] MEDS: POLYETHYLENE GLYCOL 3350 17 GM POWD.PACK PO SCH (08:15)
[2016-10-22] MEDS: METOPROLOL TARTRATE 25 MG TAB PO SCH (08:15)
[2016-10-22] MEDS: SODIUM CHLORIDE 0.9% 1,000 ML IV SCH (08:16)
[2016-10-22] MEDS: INSULIN LISPRO (humaLOG) 300 UNIT/3 ML VIAL SQ SCH ×2 (08:16→12:50)
[2016-10-22] MEDS: PANTOPRAZOLE 40 MG TABLET PO SCH (08:16)
[2016-10-22] MEDS: ASPIRIN 81 MG CHEW PO SCH (08:16)
[2016-10-22 08:41] LABS: Basophils % (A) 0 %; CH 31.2; CHCM 30.6; Eosinophils # (A) 0.3 k/uL (0-0.7); Eosinophils % (A) 5 %; HCT 32.7 % (34.0-46.0); HDW 2.42; HGB 10.2 gm/dL (11.4-16.0); Hypochromasia Slight; Luc % (Auto) 2; Lymphocytes # (A) 1.2 k/uL (1.0-4.8); Lymphocytes % (A) 19 %; MCH 32.1 pg (25.0-35.0); MCHC 31.3 g/dL (31.0-37.0); MCV 102.5 fL (80.0-100.0); Macrocytosis Slight; Mean Platelet Volume 7.1; Monocytes # (A) 0.5 k/uL (0-1.0); Monocytes % (A) 8 %; Neutrophils # (A) 4.3 k/uL (1.3-7.7); Neutrophils % (A) 67 %; RBC 3.19 m/uL (3.80-5.40); RDW 12.6 % (11.5-15.5); WBC 6.4 k/uL (3.8-10.6); WBC (Perox) 6.61
[2016-10-22 08:52] LABS: ALT 34 U/L (9-52); AST 20 U/L (14-36); Alkaline Phosphatase 68 U/L (38-126); Anion Gap 5 mmol/L; Blood Urea Nitrogen 18 mg/dL (7-17); Calcium 8.4 mg/dL (8.4-10.2); Carbon Dioxide 29 mmol/L (22-30); Chloride 108 mmol/L (98-107); Glucose 119 mg/dL (74-99); Non-African American GFR(MDRD) 60 (>60 ml/min/1.73 sqM); Sodium 142 mmol/L (137-145); Total Bilirubin 0.2 mg/dL (0.2-1.3); Total Protein 5.1 g/dL (6.3-8.2)
--- NOTE | 2016-10-22 09:32 | P.PN ---
Progress Note - Text The patient is being seen on rounds for Dr. Rowell. She had a colonoscopy and EGD yesterday that were unremarkable. She is otherwise stable. She is tolerating her regular breakfast. Denies any nausea or vomiting or abdominal pain. Examination the patient is awake alert. Vitals are stable. No fever. Abdomen is large rounded soft with no significant tenderness mass or organomegaly. Fashion. Chronic constipation. No evidence of obstruction on endoscopy. Recommendation. High-fiber diet. Fiber supplement daily. We will follow as needed now. Laxative as needed.
--- NOTE | 2016-10-22 11:42 | DS ---
DISCHARGE MEDICATIONS: 1. Lipitor 40 daily. 2. Aspirin 81 daily. 3. Vitamin D 1000 daily. 4. Celexa 40 daily. 5. Klonopin 1 mg b.i.d. 6. Vitamin B12, 1000 mcg daily. 7. Colace 100 b.i.d. 8. Duragesic patch 75 mcg every 72 hours. 9. Iron sulfate 325 daily. 10. Lantus 50 units daily 11. Humalog a.c. and at bedtime. 12. Lopressor 25 daily. 13. Protonix 40 mg daily. 14. MiraLAX p.r.n. 15. Tramadol 50 b.i.d. 16. ( ) 25 mg a day for constipation. 17. Milk of Magnesia just p.r.n. for constipation. CONDITION: Stable. PROGNOSIS: Guarded. DIET: Regular. HOSPITAL COURSE OF EVENTS: A white female came in with acute abdominal pain. Surgical consult, saw patient and underwent EGD and colonoscopy without any significant findings. Patient will follow up as an outpatient in the next [address] Yi. Patient is stabilized from medical standpoint as far as Surgery ( ) is involved. CAT scan of the abdomen and pelvis shows constipation. Otherwise, patient is stabilized. [facility]
[2016-10-22 12:32] LABS: Glucose,Whole Blood 190 mg/dL (75-99)
== END 2016-10-22 15:00 | disposition home or self-care (01) | DRG 392 ==
LOC: 4MS4W 11:59
PROVIDERS: ADMIT Family Medicine; ATTEND Family Medicine
PROC: 0DB78ZX Excision of Stomach, Pylorus, Via Natural or Artificial Opening Endoscopic, Diagnostic (ICD-10-PCS; principal; 2016-10-21 07:30)
PROC: 0DJD8ZZ Inspection of Lower Intestinal Tract, Via Natural or Artificial Opening Endoscopic (ICD-10-PCS; principal; 2016-10-21 07:30)
DX: K59.03 Drug induced constipation (principal); Z99.81 Dependence on supplemental oxygen; R00.1 Bradycardia, unspecified; F11.20 Opioid dependence, uncomplicated; E66.01 Morbid (severe) obesity due to excess calories; M41.9 Scoliosis, unspecified; E11.9 Type 2 diabetes mellitus without complications; K29.60 Other gastritis without bleeding; I25.10 Atherosclerotic heart disease of native coronary artery without angina pectoris; K62.89 Other specified diseases of anus and rectum; K59.09 Other constipation; K21.9 Gastro-esophageal reflux disease without esophagitis; F41.9 Anxiety disorder, unspecified; F32.9 Major depressive disorder, single episode, unspecified; G89.29 Other chronic pain; G47.33 Obstructive sleep apnea (adult) (pediatric); T40.4X5A Adverse effect of other synthetic narcotics, initial encounter; E78.5 Hyperlipidemia, unspecified; J45.909 Unspecified asthma, uncomplicated; I10 Essential (primary) hypertension; M19.90 Unspecified osteoarthritis, unspecified site; I87.8 Other specified disorders of veins; E89.2 Postprocedural hypoparathyroidism; R47.02 Dysphasia; I89.0 Lymphedema, not elsewhere classified; D64.9 Anemia, unspecified; E03.9 Hypothyroidism, unspecified; R32 Unspecified urinary incontinence; M54.5 Low back pain; S20.01XA Contusion of right breast, initial encounter; Z87.01 Personal history of pneumonia (recurrent); Z87.440 Personal history of urinary (tract) infections; Z82.5 Family history of asthma and other chronic lower respiratory diseases; Z79.4 Long term (current) use of insulin; Z95.5 Presence of coronary angioplasty implant and graft; Z79.82 Long term (current) use of aspirin; Z79.899 Other long term (current) drug therapy; Z82.49 Family history of ischemic heart disease and other diseases of the circulatory system; Z80.42 Family history of malignant neoplasm of prostate; Z71.3 Dietary counseling and surveillance; Z86.73 Personal history of transient ischemic attack (TIA), and cerebral infarction without residual deficits; Z86.010 Personal history of colon polyps; Z86.19 Personal history of other infectious and parasitic diseases; Z87.09 Personal history of other diseases of the respiratory system; Z91.040 Latex allergy status; Z88.5 Allergy status to narcotic agent; Z88.0 Allergy status to penicillin; Z88.7 Allergy status to serum and vaccine; Z88.8 Allergy status to other drugs, medicaments and biological substances; Z91.048 Other nonmedicinal substance allergy status; Z86.14 Personal history of Methicillin resistant Staphylococcus aureus infection; Z90.710 Acquired absence of both cervix and uterus; Z90.49 Acquired absence of other specified parts of digestive tract; Z98.42 Cataract extraction status, left eye; Z98.41 Cataract extraction status, right eye; Z85.41 Personal history of malignant neoplasm of cervix uteri; Z87.11 Personal history of peptic ulcer disease; Z87.19 Personal history of other diseases of the digestive system
CPT/HCPCS: 43239; 45378; 74020; 74176; 80053; 83036; 84439; 84443; 85025; 88305; 88342; 93005; 94760

== ENCOUNTER 2017-03-08 11:32 | Observation (INO) | payer MEDICARE ==
[2017-03-08] MEDS ORDERED: SODIUM CHLORIDE 0.9% 500 ML IV STA (12:04)
--- NOTE | 2017-03-08 12:09 | ED ---
General Adult HPI - General Chief complaint: GI Bleed Stated complaint: GI Bleed Time Seen by Provider: 03/08/17 11:35 Source: EMS, RN notes reviewed Mode of arrival: EMS Limitations: no limitations - History of Present Illness Initial comments: This is a 71-year-old female who presents to the emergency department complaining of rectal bleeding since last night. Patient states the bright red blood. Patient states no pain associated with bleeding. Patient states she's had this in the past. Patient states on Plavix and aspirin. Patient denies any fever chills per patient denies any diarrhea. Patient denies any vomiting. Patient states she does have a sore throat is been ongoing for about 10 days. Patient denies any back pain. Patient denies any dysuria hematuria urinary frequency. - Related Data Home Medications Medication Instructions Recorded Confirmed Citalopram Hydrobromide [CeleXA] 40 mg PO DAILY 09/20/14 03/08/17 clonazePAM [KlonoPIN] 1 mg PO TID 09/20/14 03/08/17 fentaNYL 75MCG/HR PATCH [Duragesic 1 patch TRANSDERM Q72H 09/20/14 03/08/17 75MCG/HR] traMADol HCl [Ultram] 50 mg PO BID 10/19/16 03/08/17 Clopidogrel [Plavix] 75 mg PO HS 12/21/16 03/08/17 Furosemide [Lasix] 40 mg PO BID 12/21/16 03/08/17 Insulin Glargine [Lantus] 50 unit SQ HS 12/21/16 03/08/17 Lactulose 20 gm PO TID 12/21/16 03/08/17 Lisinopril [Zestril] 20 mg PO DAILY 12/21/16 03/08/17 Tolterodine Tartrate [Detrol LA] 4 mg PO HS 12/21/16 03/08/17 Atorvastatin [Lipitor] 40 mg PO HS 01/30/17 03/08/17 Cholecalciferol (Vitamin D3) 2,000 unit PO DAILY 01/30/17 03/08/17 [Vitamin D3] Cyanocobalamin (Vitamin B-12) 1,000 mcg PO DAILY 01/30/17 03/08/17 [Vitamin B-12] INSULIN LISPRO (humaLOG) [humaLOG] See Protocol SQ ACHS 01/30/17 03/08/17 Metoprolol Tartrate [Metoprolol 25 mg PO BID 01/30/17 03/08/17 Tartrate] Omeprazole 40 mg PO DAILY 01/30/17 03/08/17 Previous Rx's Medication Instructions Recorded Ferrous Sulfate [Iron (65 MG 325 mg PO DAILY tab 10/08/15 Elemental)] Aspirin 81 mg PO DAILY chew 04/26/16 Isosorbide Mononitrate ER [Imdur] 30 mg PO DAILY #30 tab.er.24h 12/23/16 Nitroglycerin Sl Tabs [Nitrostat] 0.4 mg SUBLINGUAL Q5M PRN #30 tab 12/23/16 Allergies Allergy/AdvReac Type Severity Reaction Status Date / Time adhesive Allergy Rash/Hives, Verified 03/08/17 11:46 W/ TAPES, CAN USE PAPER TAPE codeine Allergy Anaphylaxis Verified 03/08/17 11:46 latex Allergy Rash/Hives Verified 03/08/17 11:46 morphine Allergy Unknown Verified 03/08/17 11:46 Penicillins Allergy Anaphylaxis Verified 03/08/17 11:46 propoxyphene napsylate Allergy Anaphylaxis Verified 03/08/17 11:46 [From Darvocet-N 100] tuberculin, purified protein Allergy Rash/Hives Verified 03/08/17 11:46 deriva [tuberculin,purif.prot.deriv.] Review of Systems ROS Statement: Those systems with pertinent positive or pertinent negative responses have been documented in the HPI. ROS Other: All systems not noted in ROS Statement are negative. 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 History of Any Multi-Drug Resistant Organisms: MRSA Date of last positivie culture/infection: 04/02/11 MDRO Source:: L chest/L lower leg/ankle Past Surgical History: Bladder Surgery, Cholecystectomy, Heart Catheterization, Heart Catheterization With Stent, Hysterectomy Additional Past Surgical History / Comment(s): PCI with a total of 5 stents per pt with last stent placed 06/29/16, partial parathyroidectomy, bilateral cataracts removed, I and D of L chest wall abscess and L ankle wound, bladder surgery with implant of stimulator system 02/2010, EGD/colonoscoy. Past Anesthesia/Blood Transfusion Reactions: No Reported Reaction Additional Past Anesthesia/Blood Transfusion Reaction / Comment(s): Pt states she has received blood in the past without reaction. Date of Last Stent Placement:: 06/29/16 Past Psychological History: Anxiety, Depression Smoking Status: Never smoker Past Alcohol Use History: None Reported Past Drug Use History: None Reported - Past Family History Father Family Medical History: Cancer, Coronary Artery Disease (CAD) Additional Family Medical History / Comment(s): Father had prostate cancer. Mother Family Medical History: Asthma, COPD General Exam - General Exam Comments Initial Comments: GENERAL: Patient is well-developed and well-nourished. Patient is nontoxic and well- hydrated and is in no acute distress. ENT: Neck is soft and supple. No significant lymphadenopathy is noted. Oropharynx there is quite a bit of postnasal drip in the back of the patient's pharynx. Moist mucous membranes. Neck has full range of motion without eliciting any pain. EYES: The sclera were anicteric and conjunctiva were pink and moist. Extraocular movements were intact and pupils were equal round and reactive to light. Eyelids were unremarkable. PULMONARY: Unlabored respirations. Good breath sounds bilaterally. No audible rales rhonchi or wheezing was noted. CARDIOVASCULAR: There is a regular rate and rhythm without any murmurs gallops or rubs. ABDOMEN: Very minimal suprapubic tenderness. No palpable organomegaly was noted. There is no palpable pulsatile mass. SKIN: Skin is clear with no lesions or rashes and otherwise unremarkable. NEUROLOGIC: Patient is alert and oriented x3. Cranial nerves II through XII are grossly intact. Motor and sensory are also intact. Normal speech, volume and content. Symmetrical smile. MUSCULOSKELETAL: Normal extremities with adequate strength and full range of motion. No lower extremity swelling or edema. No calf tenderness. LYMPHATICS: No significant lymphadenopathy is noted PSYCHIATRIC: Normal psychiatric evaluation. Limitations: no limitations Course Vital Signs 03/08/17 03/08/17 03/08/17 11:34 12:34 13:53 Temperature 98.3 F Pulse Rate 68 72 70 Respiratory 16 16 20 Rate Blood Pressure 117/51 104/67 110/52 O2 Sat by Pulse 95 95 99 Oximetry Medical Decision Making - Medical Decision Making EKG shows a sinus rhythm with a premature atrial complex at a rate of 67 bpm RI interval is 170 QRS is 96 Q-T intervals 416 QTC is 439. Patient's EKG shows no ST segment elevation or depression or T wave abnormalities are noted I spoke with Dr. Yi he agreed to admit the patient admitted the patient I consult to GI. - Lab Data Result diagrams: 03/08/17 11:40 03/08/17 11:40 Lab Results 03/08/17 03/08/17 03/08/17 Range/Units 11:40 11:40 11:40 WBC 11.9 H (3.8-10.6) k/uL RBC 3.44 L (3.80-5.40) m/uL Hgb 10.7 L (11.4-16.0) gm/dL Hct 33.6 L (34.0-46.0) % MCV 97.8 D (80.0-100.0) fL MCH 31.0 (25.0-35.0) pg MCHC 31.7 (31.0-37.0) g/dL RDW 12.4 (11.5-15.5) % Plt Count 278 (150-450) k/uL Neutrophils % 81 % Lymphocytes % 10 % Monocytes % 5 % Eosinophils % 2 % Basophils % 0 % Neutrophils # 9.7 H (1.3-7.7) k/uL Lymphocytes # 1.2 (1.0-4.8) k/uL Monocytes # 0.6 (0-1.0) k/uL Eosinophils # 0.3 (0-0.7) k/uL Basophils # 0.0 (0-0.2) k/uL PT (9.0-12.0) sec INR (<1.2) APTT (22.0-30.0) sec Sodium 137 (137-145) mmol/L Potassium 5.0 (3.5-5.1) mmol/L Chloride 96 L (98-107) mmol/L Carbon Dioxide 34 H (22-30) mmol/L Anion Gap 7 mmol/L BUN 78 H (7-17) mg/dL Creatinine 1.17 H (0.52-1.04) mg/dL Est GFR (MDRD) Af Amer 55 (>60 ml/min/1.73 sqM) Est GFR (MDRD) Non-Af 45 (>60 ml/min/1.73 sqM) Glucose 185 H (74-99) mg/dL Calcium 9.4 (8.4-10.2) mg/dL Magnesium 2.0 (1.6-2.3) mg/dL Total Bilirubin 0.3 (0.2-1.3) mg/dL AST 12 L (14-36) U/L ALT 33 (9-52) U/L Alkaline Phosphatase 84 (38-126) U/L Total Creatine Kinase 33 (30-135) U/L CK-MB (CK-2) 0.7 (0.0-2.4) ng/mL CK-MB (CK-2) Rel Index 2.1 Troponin I <0.012 (0.000-0.034) ng/mL Total Protein 5.5 L (6.3-8.2) g/dL Albumin 3.3 L (3.5-5.0) g/dL Urine Color Urine Appearance (Clear) Urine pH (5.0-8.0) Ur Specific [place] (1.001-1.035) Urine Protein (Negative) Urine Glucose (UA) (Negative) Urine Ketones (Negative) Urine Blood (Negative) Urine Nitrite (Negative) Urine Bilirubin (Negative) Urine Urobilinogen (<2.0) mg/dL Ur Leukocyte Esterase (Negative) Urine RBC (0-5) /hpf Urine WBC (0-5) /hpf Ur Squamous Epith Cells (0-4) /hpf Urine Bacteria (None) /hpf Hyaline Casts (0-2) /lpf Urine Mucus (None) /hpf Group A Strep Rapid (Negative) Blood Type Blood Type Recheck Antibody Screen Spec Expiration Date 03/08/17 03/08/17 03/08/17 Range/Units 11:40 11:40 11:40 WBC (3.8-10.6) k/uL RBC (3.80-5.40) m/uL Hgb (11.4-16.0) gm/dL Hct (34.0-46.0) % MCV (80.0-100.0) fL MCH (25.0-35.0) pg MCHC (31.0-37.0) g/dL RDW (11.5-15.5) % Plt Count (150-450) k/uL Neutrophils % % Lymphocytes % % Monocytes % % Eosinophils % % Basophils % % Neutrophils # (1.3-7.7) k/uL Lymphocytes # (1.0-4.8) k/uL Monocytes # (0-1.0) k/uL Eosinophils # (0-0.7) k/uL Basophils # (0-0.2) k/uL PT 9.9 (9.0-12.0) sec INR 1.0 (<1.2) APTT 22.7 (22.0-30.0) sec Sodium (137-145) mmol/L Potassium (3.5-5.1) mmol/L Chloride (98-107) mmol/L Carbon Dioxide (22-30) mmol/L Anion Gap mmol/L BUN (7-17) mg/dL Creatinine (0.52-1.04) mg/dL Est GFR (MDRD) Af Amer (>60 ml/min/1.73 sqM) Est GFR (MDRD) Non-Af (>60 ml/min/1.73 sqM) Glucose (74-99) mg/dL Calcium (8.4-10.2) mg/dL Magnesium (1.6-2.3) mg/dL Total Bilirubin (0.2-1.3) mg/dL AST (14-36) U/L ALT (9-52) U/L Alkaline Phosphatase (38-126) U/L Total Creatine Kinase (30-135) U/L CK-MB (CK-2) (0.0-2.4) ng/mL CK-MB (CK-2) Rel Index Troponin I (0.000-0.034) ng/mL Total Protein (6.3-8.2) g/dL Albumin (3.5-5.0) g/dL Urine Color Urine Appearance (Clear) Urine pH (5.0-8.0) Ur Specific [place] (1.001-1.035) Urine Protein (Negative) Urine Glucose (UA) (Negative) Urine Ketones (Negative) Urine Blood (Negative) Urine Nitrite (Negative) Urine Bilirubin (Negative) Urine Urobilinogen (<2.0) mg/dL Ur Leukocyte Esterase (Negative) Urine RBC (0-5) /hpf Urine WBC (0-5) /hpf Ur Squamous Epith Cells (0-4) /hpf Urine Bacteria (None) /hpf Hyaline Casts (0-2) /lpf Urine Mucus (None) /hpf Group A Strep Rapid Negative (Negative) Blood Type B Negative Blood Type Recheck CABO Indicated Antibody Screen NEGATIVE Spec Expiration Date 03/11/2017 - 233903/08/17 Range/Units 13:49 WBC (3.8-10.6) k/uL RBC (3.80-5.40) m/uL Hgb (11.4-16.0) gm/dL Hct (34.0-46.0) % MCV (80.0-100.0) fL MCH (25.0-35.0) pg MCHC (31.0-37.0) g/dL RDW (11.5-15.5) % Plt Count (150-450) k/uL Neutrophils % % Lymphocytes % % Monocytes % % Eosinophils % % Basophils % % Neutrophils # (1.3-7.7) k/uL Lymphocytes # (1.0-4.8) k/uL Monocytes # (0-1.0) k/uL Eosinophils # (0-0.7) k/uL Basophils # (0-0.2) k/uL PT (9.0-12.0) sec INR (<1.2) APTT (22.0-30.0) sec Sodium (137-145) mmol/L Potassium (3.5-5.1) mmol/L Chloride (98-107) mmol/L Carbon Dioxide (22-30) mmol/L Anion Gap mmol/L BUN (7-17) mg/dL Creatinine (0.52-1.04) mg/dL Est GFR (MDRD) Af Amer (>60 ml/min/1.73 sqM) Est GFR (MDRD) Non-Af (>60 ml/min/1.73 sqM) Glucose (74-99) mg/dL Calcium (8.4-10.2) mg/dL Magnesium (1.6-2.3) mg/dL Total Bilirubin (0.2-1.3) mg/dL AST (14-36) U/L ALT (9-52) U/L Alkaline Phosphatase (38-126) U/L Total Creatine Kinase (30-135) U/L CK-MB (CK-2) (0.0-2.4) ng/mL CK-MB (CK-2) Rel Index Troponin I (0.000-0.034) ng/mL Total Protein (6.3-8.2) g/dL Albumin (3.5-5.0) g/dL Urine Color Light Yellow Urine Appearance Cloudy H (Clear) Urine pH 5.0 (5.0-8.0) Ur Specific [place] 1.007 (1.001-1.035) Urine Protein Negative (Negative) Urine Glucose (UA) Negative (Negative) Urine Ketones Negative (Negative) Urine Blood Small H (Negative) Urine Nitrite Negative (Negative) Urine Bilirubin Negative (Negative) Urine Urobilinogen <2.0 (<2.0) mg/dL Ur Leukocyte Esterase Large H (Negative) Urine RBC <1 (0-5) /hpf Urine WBC 14 H (0-5) /hpf Ur Squamous Epith Cells 1 (0-4) /hpf Urine Bacteria Occasional H (None) /hpf Hyaline Casts 3 H (0-2) /lpf Urine Mucus Rare H (None) /hpf Group A Strep Rapid (Negative) Blood Type Blood Type Recheck Antibody Screen Spec Expiration Date Disposition Clinical Impression: Rectal bleeding, Pharyngitis Disposition: ADMITTED IP TO THIS HOSP Referrals: Chris Yi MD [Primary Care Provider] - 1-2 days Time of Disposition: 15:06
[2017-03-08 12:32] LABS: Albumin 3.3 g/dL (3.5-5.0); Calcium 9.4 mg/dL (8.4-10.2); Total Bilirubin 0.3 mg/dL (0.2-1.3); Total Protein 5.5 g/dL (6.3-8.2)
[2017-03-08 12:33] LABS: Partial Thromboplastin Time 22.7 sec (22.0-30.0); Prothrombin Time 9.9 sec (9.0-12.0)
[2017-03-08 12:39] LABS: Creatine Kinase 33 U/L (30-135)
[2017-03-08 12:52] LABS: Creatine Kinase MB 0.7 ng/mL (0.0-2.4); Troponin I <0.012 ng/mL (0.000-0.034)
[2017-03-08 12:55] LABS: Basophils % (A) 0 %; Eosinophils # (A) 0.3 k/uL (0-0.7); Eosinophils % (A) 2 %; HCT 33.6 % (34.0-46.0); HGB 10.7 gm/dL (11.4-16.0); Lymphocytes # (A) 1.2 k/uL (1.0-4.8); Lymphocytes % (A) 10 %; MCHC 31.7 g/dL (31.0-37.0); Mean Platelet Volume 6.9; Monocytes # (A) 0.6 k/uL (0-1.0); Monocytes % (A) 5 %; Neutrophils # (A) 9.7 k/uL (1.3-7.7); Neutrophils % (A) 81 %; Platelet Count 278 k/uL (150-450); RBC 3.44 m/uL (3.80-5.40); RDW 12.4 % (11.5-15.5); WBC 11.9 k/uL (3.8-10.6)
[2017-03-08 13:00] LABS: MCV 97.8 fL (80.0-100.0)
[2017-03-08 14:14] LABS: Appearance,Urine Cloudy (Clear); Bacteria,Urine Occasional /hpf; Bilirubin,Urine Negative (Negative); Blood,Urine Small (Negative); Color,Urine Light Yellow; Glucose,Urine (UA) Negative (Negative); Hyaline Casts,Urine 3 /lpf (0-2); Ketones,Urine Negative (Negative); Leukocyte Esterase,Urine Large (Negative); Mucus,Urine Rare /hpf; Protein,Urine Negative (Negative); RBC,Urine <1 /hpf (0-5); Specific Gravity,Urine 1.007 (1.001-1.035); Squamous Epithelial Cell,Urine 1 /hpf (0-4); Urobilinogen,Urine <2.0 mg/dL (<2.0); WBC,Urine 14 /hpf (0-5)
[2017-03-08] MEDS ORDERED: SODIUM CHLORIDE 0.9% 1,000 ML IV ONE (15:07)
[2017-03-08 20:42] LABS: Glucose,Whole Blood 153 mg/dL (75-99)
--- NOTE | 2017-03-08 22:09 | P.GSCN ---
History of Present Illness Consult date: 03/08/17 History of present illness: CHIEF COMPLAINT: Rectal bleeding HISTORY OF PRESENT ILLNESS: The patient is a 71-year-old female who presents with history of rectal bleeding over 7 days. She has a previous history of bleeding where she had both an upper and lower endoscopy performed in October [address] Lawrence She reports that she continued to have small amounts of bleeding however on , 7 days ago, she had large clots. She denies any rectal pain. She denies any abdominal pain. She denies any epigastric abdominal pain. She has an appetite. No reports of nausea and vomiting. She denies any rectal pain. PAST MEDICAL HISTORY: Please see list PAST SURGICAL HISTORY: Please see list MEDICATIONS: Please see list ALLERGIES: Denies. SOCIAL HISTORY: No illicit drug use or recent tobacco use FAMILY HISTORY: Morbid obesity. REVIEW OF ORGAN SYSTEMS: CONSTITUTIONAL: No reports of fevers or chills. HEENT: Denies any troubles with the vision or hearing. ENDOCRINE: No reports of hypothyroidism. No diabetes. RESPIRATORY: No recent pneumonias. Has asthma. CARDIOVASCULAR: Denies chest pain or palpitations GI: Has blood in stools. Has gastroesophageal reflux disease. MUSCULOSKELETAL: Has occasional joint pain including back pain. NEURO: No seizure disorders or headaches. Past stroke. PSYCH: No depression or suicidal ideation. HEMATOLOGIC: No personal or family history of DVTs or pulmonary emboli. History of rectal bleeding. PHYSICAL EXAM: VITAL SIGNS: Vital Signs Temp 96.3 F L 03/08/17 19:33 Pulse 64 03/08/17 19:33 Resp 18 03/08/17 19:33 BP 142/65 03/08/17 19:33 Pulse Ox 98 03/08/17 19:33 Intake & Output 03/08/17 03/08/17 03/09/17 06:59 18:59 06:59 Weight 143.789 kg GENERAL: Well-developed pleasant female in no acute distress. HEENT: No scleral icterus. Extraocular movements grossly intact. Moist buccal mucosa. NECK: Supple without lymphadenopathy. CHEST: Unlabored respirations. Equal bilateral excursions. CARDIOVASCULAR: Regular rate regular rhythm rhythm. Distal 2+ pulses. ABDOMEN: Soft, nondistended. Nondistended. MUSCULOSKELETAL: No clubbing, cyanosis, or edema. NEURO :Moves all extremities 4+/5. No focal or lateralizing signs. PSYCH: Alert and oriented to person, place and time. SKIN: Profuse. Good skin turgor. ASSESSMENT: 1. History of recurrent rectal bleeding. PLAN: 1. May benefit from repeat lower endoscopy. 2. Will need bowel prep. 3. Dr. Rowell to assume patient's care. 4. May have liquid diet and interim. 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 History of Any Multi-Drug Resistant Organisms: MRSA Year Discovered:: 04/02/11 MDRO Source:: L chest/L lower leg/ankle Past Surgical History: Bladder Surgery, Cholecystectomy, Heart Catheterization, Heart Catheterization With Stent, Hysterectomy Additional Past Surgical History / Comment(s): PCI with a total of 5 stents per pt with last stent placed 06/29/16, partial parathyroidectomy, bilateral cataracts removed, I and D of L chest wall abscess and L ankle wound, bladder surgery with implant of stimulator system 02/2010, EGD/colonoscoy. Past Anesthesia/Blood Transfusion Reactions: No Reported Reaction Additional Past Anesthesia/Blood Transfusion Reaction / Comm: Pt states she has received blood in the past without reaction. Date of Last Stent Placement:: 06/29/16 Smoking Status: Never smoker - Past Family History Father Family Medical History: Cancer, Coronary Artery Disease (CAD) Additional Family Medical History / Comment(s): Father had prostate cancer. Mother Family Medical History: Asthma, COPD Medications and Allergies Home Medications Medication Instructions Recorded Confirmed Type Citalopram Hydrobromide [CeleXA] 40 mg PO DAILY 09/20/14 03/08/17 History clonazePAM [KlonoPIN] 1 mg PO TID 09/20/14 03/08/17 History fentaNYL 75MCG/HR PATCH [Duragesic 1 patch TRANSDERM Q72H 09/20/14 03/08/17 History 75MCG/HR] Ferrous Sulfate [Iron (65 MG 325 mg PO DAILY tab 10/08/15 03/08/17 Rx Elemental)] Aspirin 81 mg PO DAILY chew 04/26/16 03/08/17 Rx traMADol HCl [Ultram] 50 mg PO BID 10/19/16 03/08/17 History Clopidogrel [Plavix] 75 mg PO HS 12/21/16 03/08/17 History Furosemide [Lasix] 40 mg PO BID 12/21/16 03/08/17 History Insulin Glargine [Lantus] 50 unit SQ HS 12/21/16 03/08/17 History Lactulose 20 gm PO TID 12/21/16 03/08/17 History Lisinopril [Zestril] 20 mg PO DAILY 12/21/16 03/08/17 History Tolterodine Tartrate [Detrol LA] 4 mg PO HS 12/21/16 03/08/17 History Isosorbide Mononitrate ER [Imdur] 30 mg PO DAILY #30 tab.er.24h 12/23/16 Rx Nitroglycerin Sl Tabs [Nitrostat] 0.4 mg SUBLINGUAL Q5M PRN #30 tab 12/23/1605/21 Rx Atorvastatin [Lipitor] 40 mg PO HS 01/30/17 03/08/17 History Cholecalciferol (Vitamin D3) 2,000 unit PO DAILY 01/30/17 03/08/17 History [Vitamin D3] Cyanocobalamin (Vitamin B-12) 1,000 mcg PO DAILY 01/30/17 03/08/17 History [Vitamin B-12] INSULIN LISPRO (humaLOG) [humaLOG] See Protocol SQ ACHS 01/30/17 03/08/17 History Metoprolol Tartrate [Metoprolol 25 mg PO BID 01/30/17 03/08/17 History Tartrate] Omeprazole 40 mg PO DAILY 01/30/17 03/08/17 History Allergies Allergy/AdvReac Type Severity Reaction Status Date / Time adhesive Allergy Rash/Hives, Verified 03/08/17 11:46 W/ TAPES, CAN USE PAPER TAPE codeine Allergy Anaphylaxis Verified 03/08/17 11:46 latex Allergy Rash/Hives Verified 03/08/17 11:46 morphine Allergy Unknown Verified 03/08/17 11:46 Penicillins Allergy Anaphylaxis Verified 03/08/17 11:46 propoxyphene napsylate Allergy Anaphylaxis Verified 03/08/17 11:46 [From Darvocet-N 100] tuberculin, purified protein Allergy Rash/Hives Verified 03/08/17 11:46 deriva [tuberculin,purif.prot.deriv.] Surgical - Exam Vital Signs Temp Pulse Resp BP Pulse Ox 98.3 F 68 16 117/51 95 03/08/17 11:34 03/08/17 11:34 03/08/17 11:34 03/08/17 11:34 03/08/17 11:34 Results - Labs 03/08/17 11:40 03/08/17 11:40 Abnormal Lab Results - Last 24 Hours (Table) 03/08/17 03/08/17 03/08/17 Range/Units 11:40 11:40 13:49 WBC 11.9 H (3.8-10.6) k/uL RBC 3.44 L (3.80-5.40) m/uL Hgb 10.7 L (11.4-16.0) gm/dL Hct 33.6 L (34.0-46.0) % Neutrophils # 9.7 H (1.3-7.7) k/uL Chloride 96 L (98-107) mmol/L Carbon Dioxide 34 H (22-30) mmol/L BUN 78 H (7-17) mg/dL Creatinine 1.17 H (0.52-1.04) mg/dL Glucose 185 H (74-99) mg/dL POC Glucose (mg/dL) (75-99) mg/dL AST 12 L (14-36) U/L Total Protein 5.5 L (6.3-8.2) g/dL Albumin 3.3 L (3.5-5.0) g/dL Urine Appearance Cloudy H (Clear) Urine Blood Small H (Negative) Ur Leukocyte Esterase Large H (Negative) Urine WBC 14 H (0-5) /hpf Urine Bacteria Occasional H (None) /hpf Hyaline Casts 3 H (0-2) /lpf Urine Mucus Rare H (None) /hpf 03/08/17 Range/Units 20:41 WBC (3.8-10.6) k/uL RBC (3.80-5.40) m/uL Hgb (11.4-16.0) gm/dL Hct (34.0-46.0) % Neutrophils # (1.3-7.7) k/uL Chloride (98-107) mmol/L Carbon Dioxide (22-30) mmol/L BUN (7-17) mg/dL Creatinine (0.52-1.04) mg/dL Glucose (74-99) mg/dL POC Glucose (mg/dL) 153 H (75-99) mg/dL AST (14-36) U/L Total Protein (6.3-8.2) g/dL Albumin (3.5-5.0) g/dL Urine Appearance (Clear) Urine Blood (Negative) Ur Leukocyte Esterase (Negative) Urine WBC (0-5) /hpf Urine Bacteria (None) /hpf Hyaline Casts (0-2) /lpf Urine Mucus (None) /hpf Microbiology - Last 24 Hours (Table) 03/08/17 15:20 Urine Culture - Preliminary Urine,Voided 03/08/17 11:40 Group A Strep Throat Culture - Preliminary Throat Diabetes panel 03/08/17 Range/Units 11:40 Sodium 137 (137-145) mmol/L Potassium 5.0 (3.5-5.1) mmol/L Chloride 96 L (98-107) mmol/L Carbon Dioxide 34 H (22-30) mmol/L BUN 78 H (7-17) mg/dL Creatinine 1.17 H (0.52-1.04) mg/dL Glucose 185 H (74-99) mg/dL Calcium 9.4 (8.4-10.2) mg/dL AST 12 L (14-36) U/L ALT 33 (9-52) U/L Alkaline Phosphatase 84 (38-126) U/L Total Protein 5.5 L (6.3-8.2) g/dL Albumin 3.3 L (3.5-5.0) g/dL Calcium panel 03/08/17 Range/Units 11:40 Calcium 9.4 (8.4-10.2) mg/dL Albumin 3.3 L (3.5-5.0) g/dL Pituitary panel 03/08/17 Range/Units 11:40 Sodium 137 (137-145) mmol/L Potassium 5.0 (3.5-5.1) mmol/L Chloride 96 L (98-107) mmol/L Carbon Dioxide 34 H (22-30) mmol/L BUN 78 H (7-17) mg/dL Creatinine 1.17 H (0.52-1.04) mg/dL Glucose 185 H (74-99) mg/dL Calcium 9.4 (8.4-10.2) mg/dL Adrenal panel 03/08/17 Range/Units 11:40 Sodium 137 (137-145) mmol/L Potassium 5.0 (3.5-5.1) mmol/L Chloride 96 L (98-107) mmol/L Carbon Dioxide 34 H (22-30) mmol/L BUN 78 H (7-17) mg/dL Creatinine 1.17 H (0.52-1.04) mg/dL Glucose 185 H (74-99) mg/dL Calcium 9.4 (8.4-10.2) mg/dL Total Bilirubin 0.3 (0.2-1.3) mg/dL AST 12 L (14-36) U/L ALT 33 (9-52) U/L Alkaline Phosphatase 84 (38-126) U/L Total Protein 5.5 L (6.3-8.2) g/dL Albumin 3.3 L (3.5-5.0) g/dL Assessment and Plan (1) Morbid obesity due to excess calories Current Visit: Yes Status: Acute Code(s): E66.01 - MORBID (SEVERE) OBESITY DUE TO EXCESS CALORIES SNOMED Code(s): 486421184 (2) Rectal bleeding Current Visit: Yes Status: Acute Code(s): K62.5 - HEMORRHAGE OF ANUS AND RECTUM SNOMED Code(s): 01072409 (3) Morbid obesity with BMI of 50.0-59.9, adult Current Visit: No Status: Chronic Code(s): E66.01 - MORBID (SEVERE) OBESITY DUE TO EXCESS CALORIES; Z68.43 - BODY MASS INDEX (BMI) 50-59.9 , ADULT SNOMED Code(s): 505387770
[2017-03-08 22:27] LABS: Basophils % (A) 0 %; Eosinophils # (A) 0.4 k/uL (0-0.7); Eosinophils % (A) 4 %; HCT 32.9 % (34.0-46.0); HGB 10.3 gm/dL (11.4-16.0); Lymphocytes # (A) 1.7 k/uL (1.0-4.8); Lymphocytes % (A) 17 %; MCH 31.3 pg (25.0-35.0); MCHC 31.3 g/dL (31.0-37.0); Mean Platelet Volume 6.9; Monocytes # (A) 0.5 k/uL (0-1.0); Monocytes % (A) 5 %; Neutrophils % (A) 72 %; Platelet Count 252 k/uL (150-450); RBC 3.29 m/uL (3.80-5.40); RDW 12.3 % (11.5-15.5); WBC 9.7 k/uL (3.8-10.6)
[2017-03-09 04:34] LABS: Basophils % (A) 0 %; Eosinophils # (A) 0.4 k/uL (0-0.7); Eosinophils % (A) 4 %; HCT 35.4 % (34.0-46.0); HGB 10.8 gm/dL (11.4-16.0); Lymphocytes # (A) 1.7 k/uL (1.0-4.8); Lymphocytes % (A) 19 %; MCH 30.7 pg (25.0-35.0); MCHC 30.5 g/dL (31.0-37.0); MCV 100.8 fL (80.0-100.0); Macrocytosis Slight; Mean Platelet Volume 7.5; Monocytes # (A) 0.6 k/uL (0-1.0); Monocytes % (A) 6 %; Neutrophils # (A) 6.2 k/uL (1.3-7.7); Neutrophils % (A) 69 %; Platelet Count 242 k/uL (150-450); RBC 3.52 m/uL (3.80-5.40); RDW 13.9 % (11.5-15.5); WBC 8.9 k/uL (3.8-10.6)
[2017-03-09] MEDS ORDERED: NITROGLYCERIN SL TABS 0.4 MG TAB SUBLINGUAL PRN (06:02)
[2017-03-09 08:16] LABS: Glucose,Whole Blood 151 mg/dL (75-99)
[2017-03-09] MEDS: SODIUM CHLORIDE 0.9% 1,000 ML IV SCH ×2 (09:00→20:08)
[2017-03-09] MEDS: INSULIN ASPART 100 UNIT/ML 1 ML 10 ML VIAL SQ SCH ×4 (09:01→21:42)
[2017-03-09] MEDS: clonazePAM 1 MG TAB PO SCH ×3 (09:02→21:41)
[2017-03-09] MEDS: CYANOCOBALAMIN 500 MCG TAB PO SCH (09:02)
[2017-03-09] MEDS: METOPROLOL TARTRATE 25 MG TAB PO SCH ×2 (09:02→20:09)
[2017-03-09] MEDS: ISOSORBIDE MONONITRATE ER 30 MG TAB.ER.24H PO SCH (09:02)
[2017-03-09] MEDS: FERROUS SULFATE 325 MG TAB PO SCH (09:02)
[2017-03-09] MEDS: PANTOPRAZOLE 40 MG TABLET PO SCH (09:02)
[2017-03-09] MEDS: LISINOPRIL 20 MG TAB PO SCH (09:02)
[2017-03-09] MEDS: traMADol 50 MG TAB PO SCH ×2 (09:03→21:41)
[2017-03-09] MEDS: FUROSEMIDE 40 MG TAB PO SCH ×2 (09:03→20:09)
[2017-03-09] MEDS: CITALOPRAM HYDROBROMIDE 20 MG TAB PO SCH (09:03)
[2017-03-09] MEDS: LACTULOSE 20 GM/30 ML CUP PO SCH ×3 (09:03→21:41)
[2017-03-09] MEDS: LEVOFLOXACIN 500MG-D5W PMX 500 MG in DEXTROSE/WATER 1 100ML.BAG IVPB SCH (10:06)
[2017-03-09] MEDS: CHOLECALCIFEROL 1,000 UNIT TAB PO SCH (10:07)
--- NOTE | 2017-03-09 10:37 | P.PN ---
<Ghazala De La Cruzjayant Springer - Last Filed: 03/09/17 10:24> Subjective Progress Note Date: 03/09/17 71-year-old male seen and examined at bedside. Nursing reports patient had been up on a bedside commode this morning there was no rectal bleeding. Had a small amount of brown stool Patient does give a history of having a small amount of rectal bleeding painless for the last week. Additionally patient stated that she had large blood clots rectally. The rectal vault was checked there was no blood noted. It's noted the patient has a previous history of bleeding and had both upper and lower endoscopic stone in October by dr rowell. Patient denies any epigastric abdominal discomfort denies any nausea vomiting. Patient states that she has chronic constipation did strain to have a bowel movement several days prior to admission Objective - Vital Signs Vital signs: Vital Signs Temp 96.7 F L 03/09/17 07:00 Pulse 71 03/09/17 07:00 Resp 18 03/09/17 07:00 BP 142/73 03/09/17 07:00 Pulse Ox 97 03/09/17 07:00 Intake & Output 03/08/17 03/09/17 03/09/17 18:59 06:59 18:59 Weight 143.789 kg Other: # Voids 4 - Exam Exam 71-year-old female resting in bed appears in no acute distress Lungs adequate air movement bilaterally Heart S1-S2 audible regular Abdomen obese soft nondistended nontender bowel tones present significant skin excoriation noted to enter skin folds extending down to bilateral upper thighs patient states it's chronic Extremities no edema noted - Labs CBC & Chem 7: 03/09/17 04:16 03/08/17 11:40 Labs: Abnormal Lab Results - Last 24 Hours (Table) 03/08/17 03/08/17 03/08/17 Range/Units 11:40 11:40 13:49 WBC 11.9 H (3.8-10.6) k/uL RBC 3.44 L (3.80-5.40) m/uL Hgb 10.7 L (11.4-16.0) gm/dL Hct 33.6 L (34.0-46.0) % MCV (80.0-100.0) fL MCHC (31.0-37.0) g/dL Neutrophils # 9.7 H (1.3-7.7) k/uL Chloride 96 L (98-107) mmol/L Carbon Dioxide 34 H (22-30) mmol/L BUN 78 H (7-17) mg/dL Creatinine 1.17 H (0.52-1.04) mg/dL Glucose 185 H (74-99) mg/dL POC Glucose (mg/dL) (75-99) mg/dL AST 12 L (14-36) U/L Total Protein 5.5 L (6.3-8.2) g/dL Albumin 3.3 L (3.5-5.0) g/dL Urine Appearance Cloudy H (Clear) Urine Blood Small H (Negative) Ur Leukocyte Esterase Large H (Negative) Urine WBC 14 H (0-5) /hpf Urine Bacteria Occasional H (None) /hpf Hyaline Casts 3 H (0-2) /lpf Urine Mucus Rare H (None) /hpf 03/08/17 03/08/17 03/09/17 Range/Units 20:41 22:15 04:16 WBC (3.8-10.6) k/uL RBC 3.29 L 3.52 L (3.80-5.40) m/uL Hgb 10.3 L 10.8 L (11.4-16.0) gm/dL Hct 32.9 L (34.0-46.0) % MCV 100.8 H (80.0-100.0) fL MCHC 30.5 L (31.0-37.0) g/dL Neutrophils # (1.3-7.7) k/uL Chloride (98-107) mmol/L Carbon Dioxide (22-30) mmol/L BUN (7-17) mg/dL Creatinine (0.52-1.04) mg/dL Glucose (74-99) mg/dL POC Glucose (mg/dL) 153 H (75-99) mg/dL AST (14-36) U/L Total Protein (6.3-8.2) g/dL Albumin (3.5-5.0) g/dL Urine Appearance (Clear) Urine Blood (Negative) Ur Leukocyte Esterase (Negative) Urine WBC (0-5) /hpf Urine Bacteria (None) /hpf Hyaline Casts (0-2) /lpf Urine Mucus (None) /hpf 03/09/17 Range/Units 08:14 WBC (3.8-10.6) k/uL RBC (3.80-5.40) m/uL Hgb (11.4-16.0) gm/dL Hct (34.0-46.0) % MCV (80.0-100.0) fL MCHC (31.0-37.0) g/dL Neutrophils # (1.3-7.7) k/uL Chloride (98-107) mmol/L Carbon Dioxide (22-30) mmol/L BUN (7-17) mg/dL Creatinine (0.52-1.04) mg/dL Glucose (74-99) mg/dL POC Glucose (mg/dL) 151 H (75-99) mg/dL AST (14-36) U/L Total Protein (6.3-8.2) g/dL Albumin (3.5-5.0) g/dL Urine Appearance (Clear) Urine Blood (Negative) Ur Leukocyte Esterase (Negative) Urine WBC (0-5) /hpf Urine Bacteria (None) /hpf Hyaline Casts (0-2) /lpf Urine Mucus (None) /hpf Microbiology - Last 24 Hours (Table) 03/08/17 15:20 Urine Culture - Preliminary Urine,Voided 03/08/17 11:40 Group A Strep Throat Culture - Preliminary Throat Assessment and Plan Assessment: Impression Assessment and Plan (1) Morbid obesity due to excess calories Current Visit: Yes Status: Acute Code(s): E66.01 - MORBID (SEVERE) OBESITY DUE TO EXCESS CALORIES SNOMED Code(s): 196928698 (2) Rectal bleeding Current Visit: Yes Status: Acute Code(s): K62.5 - HEMORRHAGE OF ANUS AND RECTUM SNOMED Code(s): 43247234 (3) Morbid obesity with BMI of 50.0-59.9, adult Current Visit: No Status: Chronic Code(s): E66.01 - MORBID (SEVERE) OBESITY DUE TO EXCESS CALORIES; Z68.43 - BODY MASS INDEX (BMI) 50-59.9 , ADULT SNOMED Code(s): 185088483 4 no evidence of an acute surgical abdomen 5 a recent October 2016 EGD showed mild antral gastritis, no evidence of esophagitis or hiatal hernia colonoscopy normal colon 6 chronic constipation Dictating on behalf of Dr. rowell The above impression and plan of care have been discussed and directed by signing physician. Gregoria De La Cruz nurse practitioner acting as scribe for signing physician. <Flaco Rowell - Last Filed: 03/09/17 18:26> Objective - Vital Signs Vital signs: Vital Signs Temp 97.1 F L 03/09/17 15:00 Pulse 70 03/09/17 15:00 Resp 18 03/09/17 15:00 BP 136/71 03/09/17 15:00 Pulse Ox 97 03/09/17 15:00 Intake & Output 03/08/17 03/09/17 03/09/17 18:59 06:59 18:59 Intake Total 200 Balance 200 Weight 143.789 kg 143.789 kg Intake: Oral 200 Other: # Voids 4 4 # Bowel Movements 7 - Labs CBC & Chem 7: 03/09/17 04:16 03/08/17 11:40 Labs: Abnormal Lab Results - Last 24 Hours (Table) 03/08/17 03/08/17 03/09/17 Range/Units 20:41 22:15 04:16 RBC 3.29 L (3.80-5.40) m/uL Hgb 10.3 L (11.4-16.0) gm/dL Hct 32.9 L (34.0-46.0) % MCV (80.0-100.0) fL MCHC (31.0-37.0) g/dL POC Glucose (mg/dL) 153 H (75-99) mg/dL Hemoglobin A1c 7.3 H (4.0-6.0) % 03/09/17 03/09/17 03/09/17 Range/Units 04:16 08:14 12:12 RBC 3.52 L (3.80-5.40) m/uL Hgb 10.8 L (11.4-16.0) gm/dL Hct (34.0-46.0) % MCV 100.8 H (80.0-100.0) fL MCHC 30.5 L (31.0-37.0) g/dL POC Glucose (mg/dL) 151 H 152 H (75-99) mg/dL Hemoglobin A1c (4.0-6.0) % 01/04/18 Range/Units 17:35 RBC (3.80-5.40) m/uL Hgb (11.4-16.0) gm/dL Hct (34.0-46.0) % MCV (80.0-100.0) fL MCHC (31.0-37.0) g/dL POC Glucose (mg/dL) 293 H (75-99) mg/dL Hemoglobin A1c (4.0-6.0) % Microbiology - Last 24 Hours (Table) 03/08/17 15:20 Urine Culture - Preliminary Urine,Voided 03/08/17 11:40 Group A Strep Throat Culture - Preliminary Throat Assessment and Plan Plan: The patient will be scheduled for upper and lower endoscopy in the a.m. to evaluate her rectal bleeding.
[2017-03-09 12:19] LABS: Glucose,Whole Blood 152 mg/dL (75-99)
[2017-03-09 14:34] LABS: Hemoglobin A1C 7.3 % (4.0-6.0)
[2017-03-09 16:42] VITALS: BMI 59.8
[2017-03-09 17:58] LABS: Glucose,Whole Blood 293 mg/dL (75-99)
[2017-03-09] MEDS ORDERED: PEG 3350-NA SULF,BICARB,CL/KCL 4,000 ML BOTTLE PO ONE (18:39)
[2017-03-09] MEDS: ATORVASTATIN 40 MG TAB PO SCH (20:08)
[2017-03-09] MEDS: OXYBUTYNIN XL 5 MG TAB.ER.24 PO SCH (20:09)
[2017-03-09 21:01] LABS: Glucose,Whole Blood 354 mg/dL (75-99)
[2017-03-09] MEDS: INSULIN DETEMIR 100 UNIT/ML 10 ML VIAL SQ SCH (21:41)
--- NOTE | 2017-03-09 23:54 | HP ---
HISTORY AND PHYSICAL CHIEF COMPLAINT: A 71-year-old white female with GI bleed. HISTORY OF PRESENT ILLNESS: A 71-year-old white female with acute abdominal pain and large bright red blood from the rectum, admitted to the hospital for GI bleed. Awaiting surgical consultation. She has a history of chronic constipation, congestive heart failure, coronary artery disease, hypertension, morbid obesity. MEDICATIONS: Please see old chart. REVIEW OF SYSTEMS: A 14-point review of system is negative except for as mentioned in HPI. PHYSICAL EXAM: Vital signs stable afebrile. Cardiovascular S1, S2. Lungs transmitted upper airway sounds. Endocrine, BMI is over 50. ENT external ear canals within normal limits. No pharyngeal erythema or exudate. Vascular, normal dorsalis pedis, posterior tibial pulses. Ophthalmological, pupils equal, round, reactive to light and accommodation. GI is soft, nontender. Increased bowel sounds. Mild guarding. no suprapubic tenderness. ASSESSMENT: 1. Acute gastrointestinal bleed, rectal bleeding. Await surgical consultation. 2. History of chronic constipation. 3. Obesity. 4. Coronary artery disease. 5. Diastolic congestive heart failure. 6. Chronic obstructive pulmonary disease, on oxygen at home. 7. Osteoarthritis. 8. Degenerative disk disease. 9. Poor gait ambulation. PLAN: Admit to the hospital. Obviously serial serial hemoglobins. Surgical consultation for possible endoscopy. Please see further orders. MMODL / IJN: [id number] /
[2017-03-10 02:51] LABS: Glucose,Whole Blood 62 mg/dL (75-99)
[2017-03-10 02:54] LABS: Glucose,Whole Blood 71 mg/dL (75-99)
[2017-03-10 03:37] LABS: Glucose,Whole Blood 106 mg/dL (75-99)
[2017-03-10 07:43] LABS: Glucose,Whole Blood 101 mg/dL (75-99)
[2017-03-10] MEDS: INSULIN ASPART 100 UNIT/ML 1 ML 10 ML VIAL SQ SCH ×4 (07:51→21:11)
[2017-03-10] MEDS ORDERED: IV FLUID CONTINUATION 300 ML IV ONE (08:49)
[2017-03-10] MEDS ORDERED: KETAMINE 10 MG/ML 20 ML VIAL ONE (08:50)
[2017-03-10] MEDS ORDERED: PROPOFOL 10 MG/ML 20 ML VIAL IV ONE (08:50)
[2017-03-10] MEDS ORDERED: fentaNYL (PF) 50 MCG/ML 2 ML AMP ONE (08:50)
[2017-03-10] MEDS ORDERED: GLYCOPYRROLATE 0.2 MG/ML 2 ML VIAL ONE (08:50)
[2017-03-10] MEDS ORDERED: LIDOCAINE 1% INJ 10MG/ML (20 ML MDV) ONE (08:50)
[2017-03-10] MEDS ORDERED: MIDAZOLAM 2 MG/2 ML VIAL ONE (08:50)
[2017-03-10] MEDS ORDERED: LACTATED RINGERS 1,000 ML IV ONE (09:19)
--- NOTE | 2017-03-10 09:59 | P.OP ---
Date of Procedure: 03/10/17 Preoperative Diagnosis: GI bleed Postoperative Diagnosis: Antral gastritis Small hiatal hernia No evidence of esophagitis Sigmoid colon colitis Transverse colon polyp Procedure(s) Performed: EGD Colonoscopy Anesthesia: MAC Surgeon: Flaco Rowell Pathology: other (AntrumSigmoid colonTransverse colon polyp) Condition: stable Disposition: PACU Description of Procedure: The patient's placed on the endoscopy table in the lateral position. She received IV sedation. The gastric was placed oropharynx and passed into the esophagus into the stomach. Scope was then placed through the pylorus. The first and second portion of the duodenum appeared normal. The scope was then brought back the antrum this appeared moderately inflamed. A biopsy was performed. The scope was then retroflexed and the remainder of the stomach appeared normal. There was a small hiatal hernia. The GE junction was at 40 cm . The distal esophagus appeared normal. The proximal esophagus appeared normal. Scope was then withdrawn. Next digital rectal exam was performed which revealed no rebound. The flexible colonoscope was then placed patient anus and passed throughout the entire colon. The ileocecal valve was visualized. The cecum appeared normal. The right colon appeared normal. In the transverse colon there is a small polyp seen this removed the forcep. Scope was withdrawn remain in the transverse colon appeared normal. The descending colon appeared normal. In the sigmoid colon there was evidence of colitis. This area is biopsied. The scope was then brought back the rectum and this appeared normal. Scope was withdrawn for patient.
[2017-03-10] MEDS: LEVOFLOXACIN 500MG-D5W PMX 500 MG in DEXTROSE/WATER 1 100ML.BAG IVPB SCH (10:48)
[2017-03-10] MEDS: traMADol 50 MG TAB PO SCH ×2 (10:49→21:11)
[2017-03-10] MEDS: CHOLECALCIFEROL 1,000 UNIT TAB PO SCH (10:50)
[2017-03-10] MEDS: FERROUS SULFATE 325 MG TAB PO SCH (10:51)
[2017-03-10] MEDS: FUROSEMIDE 40 MG TAB PO SCH ×2 (10:51→21:11)
[2017-03-10] MEDS: CYANOCOBALAMIN 500 MCG TAB PO SCH (10:51)
[2017-03-10] MEDS: LISINOPRIL 20 MG TAB PO SCH (10:51)
[2017-03-10] MEDS: PANTOPRAZOLE 40 MG TABLET PO SCH (10:51)
[2017-03-10] MEDS: ISOSORBIDE MONONITRATE ER 30 MG TAB.ER.24H PO SCH (10:51)
[2017-03-10] MEDS: METOPROLOL TARTRATE 25 MG TAB PO SCH ×2 (10:51→21:11)
[2017-03-10] MEDS: clonazePAM 1 MG TAB PO SCH ×3 (10:51→21:11)
[2017-03-10] MEDS: CITALOPRAM HYDROBROMIDE 20 MG TAB PO SCH (10:51)
[2017-03-10] MEDS: SODIUM CHLORIDE 0.9% 1,000 ML IV SCH ×2 (10:52→23:43)
[2017-03-10] MEDS: LACTULOSE 20 GM/30 ML CUP PO SCH ×3 (10:52→21:11)
[2017-03-10 12:15] LABS: Glucose,Whole Blood 85 mg/dL (75-99)
[2017-03-10 13:52] LABS: Basophils % (A) 0 %; Eosinophils # (A) 0.5 k/uL (0-0.7); Eosinophils % (A) 5 %; Lymphocytes # (A) 1.6 k/uL (1.0-4.8); Lymphocytes % (A) 17 %; MCH 30.7 pg (25.0-35.0); MCHC 30.3 g/dL (31.0-37.0); MCV 101.2 fL (80.0-100.0); Mean Platelet Volume 6.7; Monocytes # (A) 0.5 k/uL (0-1.0); Monocytes % (A) 6 %; Neutrophils # (A) 6.6 k/uL (1.3-7.7); Neutrophils % (A) 71 %; Platelet Count 249 k/uL (150-450); RBC 3.26 m/uL (3.80-5.40); RDW 12.3 % (11.5-15.5); WBC 9.4 k/uL (3.8-10.6)
[2017-03-10 17:20] LABS: Glucose,Whole Blood 155 mg/dL (75-99)
[2017-03-10 20:49] LABS: Glucose,Whole Blood 235 mg/dL (75-99)
[2017-03-10] MEDS: OXYBUTYNIN XL 5 MG TAB.ER.24 PO SCH (21:11)
[2017-03-10] MEDS: ATORVASTATIN 40 MG TAB PO SCH (21:11)
[2017-03-10] MEDS: INSULIN DETEMIR 100 UNIT/ML 10 ML VIAL SQ SCH (22:51)
[2017-03-11 08:06] LABS: Glucose,Whole Blood 74 mg/dL (75-99)
--- NOTE | 2017-03-11 08:17 | PN ---
PROGRESS NOTE SUBJECTIVE: This is a white female with GI bleeding, acute abdominal pain, COPD, diastolic CHF, EGD, colonoscopy, polypectomy of the colon was done today, some mild gastritis and chronic colitis of the colon was seen. Dr. Rowell kept her on IV antibiotics to treat the colitis and IV steroids. Awaiting further recommendations from him. GI is soft, increased bowel sounds x4. Hematology negative Homans. Cardiovascular S1, S2. Neurologic: Alert and orient x3. Ophthalmological: Pupils equal, react to light and accommodation. ASSESSMENT: 1. Gastrointestinal bleeding. 2. Acute abdominal pain. 3. Chronic obstructive pulmonary disease. 4. Diastolic congestive heart failure. 5. Status post EGD, colonoscopy. Continue with IV steroids, IV antibiotics. Follow up in the next 24-48 hours. MMODL / IJN: [id number] /
[2017-03-11] MEDS: INSULIN ASPART 100 UNIT/ML 1 ML 10 ML VIAL SQ SCH ×4 (08:29→21:59)
[2017-03-11] MEDS: clonazePAM 1 MG TAB PO SCH ×3 (08:35→21:58)
[2017-03-11] MEDS: LACTULOSE 20 GM/30 ML CUP PO SCH ×3 (08:35→21:58)
[2017-03-11] MEDS: traMADol 50 MG TAB PO SCH ×2 (08:35→21:58)
[2017-03-11] MEDS: CYANOCOBALAMIN 500 MCG TAB PO SCH (08:36)
[2017-03-11] MEDS: METOPROLOL TARTRATE 25 MG TAB PO SCH ×2 (08:36→21:58)
[2017-03-11] MEDS: PANTOPRAZOLE 40 MG TABLET PO SCH (08:36)
[2017-03-11] MEDS: LEVOFLOXACIN 250 MG TAB PO SCH (08:36)
[2017-03-11] MEDS: CITALOPRAM HYDROBROMIDE 20 MG TAB PO SCH (08:36)
[2017-03-11] MEDS: FERROUS SULFATE 325 MG TAB PO SCH (08:36)
[2017-03-11] MEDS: LISINOPRIL 20 MG TAB PO SCH (08:37)
[2017-03-11] MEDS: ISOSORBIDE MONONITRATE ER 30 MG TAB.ER.24H PO SCH (08:37)
[2017-03-11] MEDS: FUROSEMIDE 40 MG TAB PO SCH ×2 (08:37→21:58)
[2017-03-11] MEDS: CHOLECALCIFEROL 1,000 UNIT TAB PO SCH (08:37)
--- NOTE | 2017-03-11 11:00 | P.PN ---
Progress Note - Text Progress Note Date: 03/11/17 The patient is resting in bed. She has complaints of some lower quadrant abdominal pain. On exam her vital signs are stable. Her abdomen soft. Patient underwent colonoscopy yesterday and was found to have some evidence of colitis. The pathology is still pending. Patient will undergo supportive care. We will await pathology of her colon biopsies.
[2017-03-11 11:42] LABS: Glucose,Whole Blood 200 mg/dL (75-99)
[2017-03-11 16:53] LABS: Glucose,Whole Blood 128 mg/dL (75-99)
[2017-03-11 20:34] LABS: Glucose,Whole Blood 197 mg/dL (75-99)
[2017-03-11] MEDS: ATORVASTATIN 40 MG TAB PO SCH (21:58)
[2017-03-11] MEDS: OXYBUTYNIN XL 5 MG TAB.ER.24 PO SCH (21:58)
[2017-03-11] MEDS: CLOPIDOGREL 75 MG TAB PO SCH (21:58)
[2017-03-11] MEDS: INSULIN DETEMIR 100 UNIT/ML 10 ML VIAL SQ SCH (21:59)
[2017-03-12] MEDS: INSULIN ASPART 100 UNIT/ML 1 ML 10 ML VIAL SQ SCH ×4 (07:33→21:27)
[2017-03-12 07:38] LABS: Glucose,Whole Blood 70 mg/dL (75-99)
[2017-03-12] MEDS: LACTULOSE 20 GM/30 ML CUP PO SCH ×4 (08:05→21:30)
[2017-03-12] MEDS: ISOSORBIDE MONONITRATE ER 30 MG TAB.ER.24H PO SCH (08:06)
[2017-03-12] MEDS: traMADol 50 MG TAB PO SCH ×2 (08:06→21:26)
[2017-03-12] MEDS: CHOLECALCIFEROL 1,000 UNIT TAB PO SCH (08:06)
[2017-03-12] MEDS: clonazePAM 1 MG TAB PO SCH ×3 (08:06→21:27)
[2017-03-12] MEDS: FERROUS SULFATE 325 MG TAB PO SCH (08:07)
[2017-03-12] MEDS: ASPIRIN 81 MG PO SCH (08:07)
[2017-03-12] MEDS: CITALOPRAM HYDROBROMIDE 20 MG TAB PO SCH (08:07)
[2017-03-12] MEDS: FUROSEMIDE 40 MG TAB PO SCH ×2 (08:07→21:27)
[2017-03-12] MEDS: LISINOPRIL 20 MG TAB PO SCH (08:07)
[2017-03-12] MEDS: CYANOCOBALAMIN 500 MCG TAB PO SCH (08:07)
[2017-03-12] MEDS: LEVOFLOXACIN 250 MG TAB PO SCH (08:07)
[2017-03-12] MEDS: METOPROLOL TARTRATE 25 MG TAB PO SCH ×2 (08:07→21:27)
[2017-03-12] MEDS: PANTOPRAZOLE 40 MG TABLET PO SCH (08:07)
[2017-03-12 08:15] VITALS: RESP 16
--- NOTE | 2017-03-12 09:24 | PN ---
PROGRESS NOTE SUBJECTIVE: This is a 71-year-old white female with GI bleed, acute on chronic colitis, acute abdominal pain, COPD exacerbation, diastolic CHF. The patient remains on IV steroids, IV antibiotics x2. Await GI recommendations and Surgical recommendations. CARDIOVASCULAR: S1, S2. LUNGS: Transmitted upper sounds, scattered wheeze. ENDOCRINE: BMI is over 50. GI: Distended. Tenderness to palpation in the abdomen. Increased bowel sounds. ASSESSMENT: 1. Gastrointestinal bleed. 2. Acute abdominal pain. 3. Acute on chronic colitis of the colon. 4. Dehydration. 5. Severe anemia. The patient possibly discharged home in the next 48 hours is she clears up her abdominal pain and any signs of bleeding stop and colitis improves. MMODL / IJN: [id number] /
--- NOTE | 2017-03-12 11:24 | P.PN ---
Progress Note - Text Progress Note Date: 03/12/17 Patient states he feels better today. Her pain has improved. She is requesting more E. On exam her vital signs are stable. Her abdomen soft. There is minimal tenderness left lower quadrant. Resolving colitis. Patient liver diet advanced. Hopefully she'll be discharged home tomorrow.
[2017-03-12 11:30] LABS: Glucose,Whole Blood 154 mg/dL (75-99)
[2017-03-12 17:41] LABS: Glucose,Whole Blood 178 mg/dL (75-99)
[2017-03-12 21:16] LABS: Glucose,Whole Blood 191 mg/dL (75-99)
[2017-03-12] MEDS: OXYBUTYNIN XL 5 MG TAB.ER.24 PO SCH (21:26)
[2017-03-12] MEDS: CLOPIDOGREL 75 MG TAB PO SCH (21:26)
[2017-03-12] MEDS: ATORVASTATIN 40 MG TAB PO SCH (21:27)
[2017-03-12] MEDS: INSULIN DETEMIR 100 UNIT/ML 10 ML VIAL SQ SCH (21:27)
[2017-03-13 08:02] LABS: Glucose,Whole Blood 63 mg/dL (75-99)
[2017-03-13] MEDS: INSULIN ASPART 100 UNIT/ML 1 ML 10 ML VIAL SQ SCH ×2 (08:10→13:10)
[2017-03-13 08:12] VITALS: TEMP 98.4
[2017-03-13] MEDS: LACTULOSE 20 GM/30 ML CUP PO SCH ×2 (08:42→15:26)
[2017-03-13] MEDS: CYANOCOBALAMIN 500 MCG TAB PO SCH (08:42)
[2017-03-13] MEDS: clonazePAM 1 MG TAB PO SCH ×2 (08:42→15:25)
[2017-03-13] MEDS: ASPIRIN 81 MG PO SCH (08:42)
[2017-03-13] MEDS: LISINOPRIL 20 MG TAB PO SCH (08:42)
[2017-03-13] MEDS: ISOSORBIDE MONONITRATE ER 30 MG TAB.ER.24H PO SCH (08:42)
[2017-03-13] MEDS: METOPROLOL TARTRATE 25 MG TAB PO SCH (08:42)
[2017-03-13] MEDS: PANTOPRAZOLE 40 MG TABLET PO SCH (08:43)
[2017-03-13] MEDS: FERROUS SULFATE 325 MG TAB PO SCH (08:43)
[2017-03-13] MEDS: traMADol 50 MG TAB PO SCH (08:43)
[2017-03-13] MEDS: CITALOPRAM HYDROBROMIDE 20 MG TAB PO SCH (08:43)
[2017-03-13] MEDS: FUROSEMIDE 40 MG TAB PO SCH (08:43)
[2017-03-13] MEDS: LEVOFLOXACIN 250 MG TAB PO SCH (08:43)
[2017-03-13 08:48] LABS: Glucose,Whole Blood 83 mg/dL (75-99)
--- NOTE | 2017-03-13 09:43 | PN ---
PROGRESS NOTE SUBJECTIVE: White female admitted with GI bleed, severe anemia, acute abdominal pain, found to have acute colitis. Remains on IV antibiotics broad-spectrum x2 for colitis. Awaiting pathology. Cardiovascular S1-S2, lungs clear. GI is increased bowel sounds x4. Diffuse guarding right lower quadrant. ASSESSMENT: 1. Acute colitis. 2. Acute abdominal pain. 3. Gastrointestinal bleed. 4. Severe anemia. 5. Acute chronic obstructive pulmonary disease. 6. Diastolic congestive heart failure. 7. Hypertension. PLAN: Continue with IV antibiotics, IV steroids. Await surgical recommendations and pathology biopsy from colonoscopy. MMODL / IJN: [id number] /
[2017-03-13] MEDS: CHOLECALCIFEROL 1,000 UNIT TAB PO SCH (10:31)
--- NOTE | 2017-03-13 11:35 | P.PN ---
Subjective Progress Note Date: 03/13/17 71-year-old female seen and evaluated states abdominal pain improved slight tenderness to the left lower quadrant no frequent stooling tolerating diet no nausea no vomiting states last bowel movement the day before no blood in stool Objective - Vital Signs Vital signs: Vital Signs Temp 98.4 F 03/13/17 07:00 Pulse 53 L 03/13/17 07:00 Resp 16 03/13/17 07:00 BP 133/79 03/13/17 07:00 Pulse Ox 98 03/13/17 07:00 Intake & Output 03/12/17 03/13/17 03/13/17 18:59 06:59 18:59 Intake Total 480 Balance 480 Weight 143.789 kg Intake: Oral 480 Other: Voiding Method Bedside Commode Bedside Commode Incontinent Incontinent # Voids 5 4 # Bowel Movements 2 - Exam Physical exam 71-year-old alert resting in bed Lungs adequate air movement bilaterally Heart S1-S2 audible regular Abdomen obese soft nontender nondistended no nausea no vomiting no frequent stooling Extremities trace pedal edema bilaterally - Labs CBC & Chem 7: 03/10/17 13:22 03/08/17 11:40 Labs: Abnormal Lab Results - Last 24 Hours (Table) 03/12/17 03/12/17 03/13/17 Range/Units 17:29 21:13 07:57 POC Glucose (mg/dL) 178 H 191 H 63 L (75-99) mg/dL Assessment and Plan Assessment: Impression Assessment and Plan (1) Morbid obesity due to excess calories Current Visit: Yes Status: Acute Code(s): E66.01 - MORBID (SEVERE) OBESITY DUE TO EXCESS CALORIES SNOMED Code(s): 027545562 (2) Rectal bleeding Current Visit: Yes Status: Acute Code(s): K62.5 - HEMORRHAGE OF ANUS AND RECTUM SNOMED Code(s): 59388037 (3) Morbid obesity with BMI of 50.0-59.9, adult Current Visit: No Status: Chronic Code(s): E66.01 - MORBID (SEVERE) OBESITY DUE TO EXCESS CALORIES; Z68.43 - BODY MASS INDEX (BMI) 50-59.9 , ADULT SNOMED Code(s): 804824767 4 no evidence of an acute surgical abdomen 5 a recent October 2016 EGD showed mild antral gastritis, no evidence of esophagitis or hiatal hernia colonoscopy normal colon 6 chronic constipation Resolving colitis Patient is felt to be appropriate from a surgical perspective to be discharged home and followed up in the outpatient setting in 1 week with surgical service. Patient is to follow-up with the path report in an outpatient setting follow-up visit Dictating on behalf of Dr. king The above impression and plan of care have been discussed and directed by signing physician. Gregoria De La Cruz nurse practitioner acting as scribe for signing physician.
[2017-03-13 11:57] LABS: Glucose,Whole Blood 134 mg/dL (75-99)
--- NOTE | 2017-03-13 14:21 | PN ---
PROGRESS NOTE SUBJECTIVE: A 71-year-old white female with a rectal bleeding and active colitis. Awaiting pathology report on the colitis to determine discharge medication. Remains on IV antibiotics x2 per surgical recommendations. Diet has been advanced slightly to soft diet. CARDIOVASCULAR: S1, S2. LUNGS: Transmitted upper airway sounds. GI: Increased bowel sounds. Soft. No mass or organomegaly. HEMATOLOGY: Negative Homans. ASSESSMENT: 1. Acute colitis, acute abdominal pain secondary to colitis, acute gastrointestinal bleed secondary to colitis. 2. Hypertension. 3. Coronary artery disease. 4. Chronic obstructive pulmonary disease. Continue home medications. Continue on broad-spectrum antibiotics, IV steroids. Await for surgical recommendations for discharge. MMODL / IJN: [id number] /
[2017-03-13 15:34] VITALS: BP 129/64; PULSE 58
--- NOTE | 2017-04-03 08:43 | DS ---
DISCHARGE SUMMARY DATE OF ADMISSION: 03/08/17 DISCHARGE DATE: 03/13/2017. DISCHARGE MEDICATIONS: 1. Fentanyl 75 mcg every 72 hours. 2. Klonopin 1 mg t.i.d. 3. Celexa 40 mg daily. 4. Iron sulfate 325 daily. 5. Aspirin 81 mg daily. 6. Tramadol 50 b.i.d. 7. Ehsan LA 4 daily. 8. Lasix 40 b.i.d. 9. Lantus 15 units daily. 10.Zestril 20 daily. 11.Plavix 75 daily. 12.Lactulose 20 g t.i.d. 13.Imdur 30 mg daily. 14.Nitro sublingual 0.4 mg p.r.n. 15.Omeprazole 40 mg daily. 16.Metoprolol tartrate 25 b.i.d. 17.Lipitor 40 daily. 18.B12 1000 mcg daily. 19.Vitamin D 2000 units p.o. daily. 20.Levaquin 250 daily for a week. Condition stable. PROGNOSIS: Guarded. Ambulate as tolerated. HOSPITAL COURSE OF EVENTS: This is a 72-year-old white female who was admitted with GI bleed, COPD disease, osteoarthritis, degenerative disc disease and gait ambulation. Surgical consultation was done. No sources of bleeding were found to be reversible. Constipation is improved. Obesity, coronary artery disease, status heart failure treated with IV Lasix. Updraft treatments. Patient was stabilized and sent home in stable condition. Follow up as an outpatient. MMSTEPHENIE / FARSHAD: [id number] /
== END 2017-03-13 15:43 | disposition home or self-care (01) ==
LOC: EC 11:32 → 4MS4W 15:07 → INTOOBSV 15:07 → 4MS4W 18:01
PROVIDERS: ADMIT Family Medicine; ATTEND Family Medicine
DX: K52.9 Noninfective gastroenteritis and colitis, unspecified (principal); K29.70 Gastritis, unspecified, without bleeding; K51.40 Inflammatory polyps of colon without complications; K44.9 Diaphragmatic hernia without obstruction or gangrene; D64.9 Anemia, unspecified; I25.10 Atherosclerotic heart disease of native coronary artery without angina pectoris; E11.9 Type 2 diabetes mellitus without complications; K21.9 Gastro-esophageal reflux disease without esophagitis; E78.5 Hyperlipidemia, unspecified; E66.01 Morbid (severe) obesity due to excess calories; Z68.43 Body mass index [BMI] 50.0-59.9, adult; E86.0 Dehydration; J02.9 Acute pharyngitis, unspecified; K59.09 Other constipation; K29.60 Other gastritis without bleeding; J44.1 Chronic obstructive pulmonary disease with (acute) exacerbation; I11.0 Hypertensive heart disease with heart failure; I50.30 Unspecified diastolic (congestive) heart failure; M19.90 Unspecified osteoarthritis, unspecified site; R41.3 Other amnesia; R26.9 Unspecified abnormalities of gait and mobility; G47.33 Obstructive sleep apnea (adult) (pediatric); G89.4 Chronic pain syndrome; M54.5 Low back pain; K58.9 Irritable bowel syndrome, unspecified; F41.9 Anxiety disorder, unspecified; F32.9 Major depressive disorder, single episode, unspecified; E89.0 Postprocedural hypothyroidism; Z79.82 Long term (current) use of aspirin; Z79.01 Long term (current) use of anticoagulants; Z79.899 Other long term (current) drug therapy; Z79.4 Long term (current) use of insulin; Z79.891 Long term (current) use of opiate analgesic; Z91.040 Latex allergy status; Z88.5 Allergy status to narcotic agent; Z88.0 Allergy status to penicillin; Z88.8 Allergy status to other drugs, medicaments and biological substances; Z91.048 Other nonmedicinal substance allergy status; Z86.73 Personal history of transient ischemic attack (TIA), and cerebral infarction without residual deficits; Z87.01 Personal history of pneumonia (recurrent); Z99.81 Dependence on supplemental oxygen; Z86.14 Personal history of Methicillin resistant Staphylococcus aureus infection; Z95.5 Presence of coronary angioplasty implant and graft; Z82.49 Family history of ischemic heart disease and other diseases of the circulatory system; Z80.42 Family history of malignant neoplasm of prostate; Z85.41 Personal history of malignant neoplasm of cervix uteri; N39.0 Urinary tract infection, site not specified
CPT/HCPCS: 99285 ×2; 96361 ×6; 96365; 96366; 36415; 94760 ×3; 93005 ×2; 86900; 86901; 88305; 80053; 82550; 82553; 83735; 84484 ×2; 85025 ×3; 85610; 85730; 86850; 81001; 88342; 87324; 87086; 87081; 87430; 83036; 45380; 43239; G0378 ×6; J2250; J1956 ×2; J2001; J3010; J2704

== ENCOUNTER 2017-04-22 23:27 | Emergency (ER) | payer MEDICARE ==
[2017-04-22 23:40] VITALS: BP 173/66; PULSE 56; RESP 20; TEMP 97.3
--- NOTE | 2017-04-23 00:15 | ED ---
General Adult HPI - General Chief complaint: Fall Stated complaint: Fall Time Seen by Provider: 04/22/17 23:36 Source: patient, RN notes reviewed Mode of arrival: EMS Limitations: no limitations - History of Present Illness Initial comments: 72-year-old female presents to the emergency department with a chief complaint of trip and fall. Patient states that she slipped. Patient states she fell backwards. She states that she did hit her head. She states that she was at ground level. She states that she did not pass out. She denies any lightheadedness or dizziness before the fall. She states she is having some left shoulder pain as well. They were concerned due to her had pain in her neck pain so she thought that she should be seen. Patient states she is not currently having any other symptoms at this time. Patient denies any recent fever, chills, shortness of breath, chest pain, back pain, abdominal pain, nausea vomiting, numbness or tingling, dysuria or hematuria, constipation or diarrhea, headaches or visual changes, or any other current symptoms. - Related Data Home Medications Medication Instructions Recorded Confirmed Citalopram Hydrobromide [CeleXA] 40 mg PO DAILY 09/20/14 03/08/17 clonazePAM [KlonoPIN] 1 mg PO TID 09/20/14 03/08/17 fentaNYL 75MCG/HR PATCH [Duragesic 1 patch TRANSDERM Q72H 09/20/14 03/08/17 75MCG/HR] traMADol HCl [Ultram] 50 mg PO BID 10/19/16 03/08/17 Clopidogrel [Plavix] 75 mg PO HS 12/21/16 03/08/17 Furosemide [Lasix] 40 mg PO BID 12/21/16 03/08/17 Insulin Glargine [Lantus] 50 unit SQ HS 12/21/16 03/08/17 Lactulose 20 gm PO TID 12/21/16 03/08/17 Lisinopril [Zestril] 20 mg PO DAILY 12/21/16 03/08/17 Tolterodine Tartrate [Detrol LA] 4 mg PO HS 12/21/16 03/08/17 Atorvastatin [Lipitor] 40 mg PO HS 01/30/17 03/08/17 Cholecalciferol (Vitamin D3) 2,000 unit PO DAILY 01/30/17 03/08/17 [Vitamin D3] Cyanocobalamin (Vitamin B-12) 1,000 mcg PO DAILY 01/30/17 03/08/17 [Vitamin B-12] INSULIN LISPRO (humaLOG) [humaLOG] See Protocol SQ ACHS 01/30/17 03/08/17 Metoprolol Tartrate [Metoprolol 25 mg PO BID 01/30/17 03/08/17 Tartrate] Omeprazole 40 mg PO DAILY 01/30/17 03/08/17 Previous Rx's Medication Instructions Recorded Ferrous Sulfate [Iron (65 MG 325 mg PO DAILY tab 10/08/15 Elemental)] Aspirin 81 mg PO DAILY chew 04/26/16 Isosorbide Mononitrate ER [Imdur] 30 mg PO DAILY #30 tab.er.24h 12/23/16 Nitroglycerin Sl Tabs [Nitrostat] 0.4 mg SUBLINGUAL Q5M PRN #30 tab 12/23/16 Levofloxacin [Levaquin] 250 mg PO DAILY #7 tablet 03/13/17 Allergies Allergy/AdvReac Type Severity Reaction Status Date / Time adhesive Allergy Rash/Hives, Verified 04/22/17 23:40 W/ TAPES, CAN USE PAPER TAPE codeine Allergy Anaphylaxis Verified 04/22/17 23:40 latex Allergy Rash/Hives Verified 04/22/17 23:40 morphine Allergy Unknown Verified 04/22/17 23:40 Penicillins Allergy Anaphylaxis Verified 04/22/17 23:40 propoxyphene napsylate Allergy Anaphylaxis Verified 04/22/17 23:40 [From Darvocet-N 100] tuberculin, purified protein Allergy Rash/Hives Verified 04/22/17 23:40 deriva [tuberculin,purif.prot.deriv.] Review of Systems ROS Statement: Those systems with pertinent positive or pertinent negative responses have been documented in the HPI. ROS Other: All systems not noted in ROS Statement are negative. 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 History of Any Multi-Drug Resistant Organisms: MRSA Date of last positivie culture/infection: 04/02/11 MDRO Source:: L chest/L lower leg/ankle Past Surgical History: Bladder Surgery, Cholecystectomy, Heart Catheterization, Heart Catheterization With Stent, Hysterectomy Additional Past Surgical History / Comment(s): PCI with a total of 5 stents per pt with last stent placed 06/29/16, partial parathyroidectomy, bilateral cataracts removed, I and D of L chest wall abscess and L ankle wound, bladder surgery with implant of stimulator system 02/2010, EGD/colonoscoy. Past Anesthesia/Blood Transfusion Reactions: No Reported Reaction Additional Past Anesthesia/Blood Transfusion Reaction / Comment(s): Pt states she has received blood in the past without reaction. Date of Last Stent Placement:: 06/29/16 Past Psychological History: Anxiety, Depression Smoking Status: Never smoker - Past Family History Father Family Medical History: Cancer, Coronary Artery Disease (CAD) Additional Family Medical History / Comment(s): Father had prostate cancer. Mother Family Medical History: Asthma, COPD General Exam - General Exam Comments Initial Comments: General: The patient is awake and alert, in no distress, and does not appear acutely ill. Head: Patient does have some posterior tenderness to palpation. No skin trauma. Eye: Pupils are equal, round and reactive to light, extra-ocular movements are intact; there is normal conjunctiva bilaterally. No signs of icterus. Ears, nose, mouth and throat: There are moist mucous membranes and no oral lesions. Neck: The neck is supple, there is no tenderness to palpation midline. Cardiovascular: There is a regular rate and rhythm. No murmur, rub or gallop is appreciated. Respiratory: Lungs are clear to auscultation, respirations are non-labored, breath sounds are equal. No wheezes, stridor, rales, or rhonchi. Gastrointestinal: Soft, non-distended, non-tender abdomen without masses or organomegaly noted. There is no rebound or guarding present. No CVA tenderness. Bowel sounds are unremarkable. Back: There is no tenderness to palpation in the midline. There is no obvious deformity. No rashes noted. Musculoskeletal: Normal ROM, no tenderness, There is no pedal edema. There is no calf tenderness or swelling. Sensation intact. Pulses equal bilaterally 2+. Neurological: CN II-XII intact, There are no obvious motor or sensory deficits. Coordination appears grossly intact. Speech is normal. Skin: Skin is warm and dry and no rashes or lesions are noted. Psychiatric: Cooperative, appropriate mood & affect, normal judgment. Limitations: no limitations Course Vital Signs 04/22/17 23:28 Temperature 97.3 F L Pulse Rate 56 L Respiratory 20 Rate Blood Pressure 173/66 O2 Sat by Pulse 98 Oximetry Medical Decision Making - Medical Decision Making 72-year-old female presents to the emergency department with a chief complaint of trip and fall. At this time patient's imaging has been reviewed. Does appear to be in acute process. We discussed ice to the area. We discussed Motrin Tylenol for pain. We did discuss return parameters and follow-up and all questions. The patient stated that she understood and she is in agreement this plan. This time she'll be discharged. - Radiology Data Radiology results: report reviewed, image reviewed Disposition Clinical Impression: Fall, Contusion of left shoulder, Cervical strain, Scalp hematoma, Minor head injury without loss of consciousness Disposition: HOME SELF-CARE Condition: Stable Instructions: Fall Prevention for Older Adults (ED) Additional Instructions: Please use medication as discussed. Please follow up with family doctor if symptoms have not improved over the next two days. Please return to the emergency room if your symptoms increase or worsen or for any other concerns. Referrals: Chris Yi MD [Primary Care Provider] - 1-2 days Time of Disposition: 01:20
--- NOTE | 2017-04-23 00:35 | CT ---
EXAMINATION TYPE: CT brain letitia chand con DATE OF EXAM: 04/23/2017 COMPARISON: Head CT scan 04/24/2016 HISTORY: fall CT DLP: 1113.80 mGycm Automated exposure control for dose reduction was used. TECHNIQUE: CT scan of the head and cervical spine are performed without contrast. FINDINGS: There is diffuse cerebral cortical atrophy. There is mild patchy hypodensity in the periv entricular white matter. There is no mass effect nor midline shift. There is no sign of intracranial hemorrhage. The calvarium is intact. The cervical vertebra have fairly normal alignment. There is moderate spurring disc space narrowing a t C5-6 and C6-7. The posterior elements appear intact. There is multilevel hypertrophic facet arthrop athy. The skull base is intact. There is no evidence of a fracture. IMPRESSION: Cerebral atrophy and chronic small vessel ischemia. No acute intracranial abnormality. No change comp ared to old exam. Spondylotic changes in the cervical spine. No fracture.
--- NOTE | 2017-04-23 00:37 | XR ---
EXAMINATION TYPE: XR shoulder complete LT DATE OF EXAM: 04/23/2017 COMPARISON: 11/22/2013 HISTORY: Shoulder pain after a fall TECHNIQUE: 3 views FINDINGS: I see no fracture nor dislocation. There is narrowing of the glenohumeral joint space. Ther e is calcification at the greater tuberosity of the humerus. The acromioclavicular joint is intact. IMPRESSION: Osteoarthritis in the glenohumeral joint with some progression of joint space narrowing c ompared to old exam. Calcific tendinitis.
[2017-04-23] MEDS ORDERED: ACETAMINOPHEN TAB 500 MG TAB PO STA (01:20)
== END 2017-04-23 02:52 | disposition home or self-care (01) ==
LOC: EC 23:27
DX: S16.1XXA Strain of muscle, fascia and tendon at neck level, initial encounter (principal); S40.012A Contusion of left shoulder, initial encounter; S00.03XA Contusion of scalp, initial encounter; N39.0 Urinary tract infection, site not specified; E78.5 Hyperlipidemia, unspecified; I10 Essential (primary) hypertension; I25.10 Atherosclerotic heart disease of native coronary artery without angina pectoris; E11.9 Type 2 diabetes mellitus without complications; K21.9 Gastro-esophageal reflux disease without esophagitis; G47.33 Obstructive sleep apnea (adult) (pediatric); F32.9 Major depressive disorder, single episode, unspecified; F41.9 Anxiety disorder, unspecified; Z79.891 Long term (current) use of opiate analgesic; Z79.02 Long term (current) use of antithrombotics/antiplatelets; Z79.4 Long term (current) use of insulin; Z79.899 Other long term (current) drug therapy; Z88.0 Allergy status to penicillin; Z88.5 Allergy status to narcotic agent; Z88.8 Allergy status to other drugs, medicaments and biological substances; Z91.040 Latex allergy status; Z91.048 Other nonmedicinal substance allergy status; Z86.14 Personal history of Methicillin resistant Staphylococcus aureus infection; Z86.73 Personal history of transient ischemic attack (TIA), and cerebral infarction without residual deficits; Z99.89 Dependence on other enabling machines and devices; Z86.79 Personal history of other diseases of the circulatory system; Z87.448 Personal history of other diseases of urinary system; Z85.41 Personal history of malignant neoplasm of cervix uteri; Z90.710 Acquired absence of both cervix and uterus; W01.198A Fall on same level from slipping, tripping and stumbling with subsequent striking against other object, initial encounter; Y93.89 Activity, other specified; Y92.009 Unspecified place in unspecified non-institutional (private) residence as the place of occurrence of the external cause
CPT/HCPCS: 70450; 72125; 99284

== ENCOUNTER 2017-05-09 10:51 | Inpatient (IN) | payer MEDICARE ==
[2017-05-09 11:37] LABS: Basophils % (A) 0 %; Eosinophils # (A) 0.4 k/uL (0-0.7); Eosinophils % (A) 5 %; HCT 28.8 % (34.0-46.0); HGB 9.6 gm/dL (11.4-16.0); Lymphocytes # (A) 1.3 k/uL (1.0-4.8); Lymphocytes % (A) 16 %; MCH 31.6 pg (25.0-35.0); MCHC 33.3 g/dL (31.0-37.0); Mean Platelet Volume 8.4; Monocytes # (A) 0.5 k/uL (0-1.0); Monocytes % (A) 6 %; Neutrophils # (A) 5.5 k/uL (1.3-7.7); Neutrophils % (A) 71 %; Platelet Count 227 k/uL (150-450); RBC 3.03 m/uL (3.80-5.40); RDW 12.7 % (11.5-15.5); WBC 7.7 k/uL (3.8-10.6)
[2017-05-09 11:43] LABS: MCV 94.9 fL (80.0-100.0)
--- NOTE | 2017-05-09 11:52 | XR ---
EXAMINATION TYPE: XR chest 2V DATE OF EXAM: 05/09/2017 COMPARISON: 01/30/2017 HISTORY: 72-year-old female with weakness TECHNIQUE: Frontal and lateral views FINDINGS: Heart mildly enlarged. Diffuse interstitial prominence relatively similar. No marsha consolidation or pleural effusion seen. Portable technique and large patient body habitus causes some limitation in as sessment given hazy densities over the lungs. IMPRESSION: 1. Mild cardiomegaly. 2. Chronic changes, possible chronic bronchitis/asthma. No acute change seen.
[2017-05-09 11:55] LABS: Partial Thromboplastin Time 22.7 sec (22.0-30.0); Prothrombin Time 10.1 sec (9.0-12.0)
--- NOTE | 2017-05-09 11:58 | CT ---
EXAMINATION TYPE: CT brain wo con DATE OF EXAM: 05/09/2017 COMPARISON: CT brain 04/23/2017 HISTORY: MARK, remote history of trauma CT DLP: 1076.9 mGycm Automated exposure control for dose reduction was used. FINDINGS: No interval change is evident. There is no hemorrhage or hydrocephalus, no mass effect. Cortical atro phy, white matter demyelination changes are again seen. There is evidence of old infarct right fronta l lobe. Calvarium is intact. Paranasal sinuses and mastoid air cells as visualized are within normal limits. IMPRESSION: STABLE EXAM, NO ACUTE ABNORMALITY
[2017-05-09 12:03] LABS: Creatine Kinase MB 0.5 ng/mL (0.0-2.4); Troponin I <0.012 ng/mL (0.000-0.034)
[2017-05-09 12:08] LABS: Creatine Kinase 45 U/L (30-135)
--- NOTE | 2017-05-09 12:11 | ED ---
General Adult HPI - General Chief complaint: Weakness Stated complaint: Weakness, Pain in Chest Time Seen by Provider: 05/09/17 10:54 Source: patient, EMS, RN notes reviewed ( ), old records reviewed Mode of arrival: EMS Limitations: no limitations - History of Present Illness Initial comments: chief complaint and history of present illness; this is a 72-year-old female who lives in an assisted facility. Has her meals brought her. Arrived via ambulance because of chest discomfort, mild headache and general fatigue. She reports this hasbeen ongoing since she fell on April 22. At that time she states she did bump her head. a CAT scan was done at that time. - Related Data Home Medications Medication Instructions Recorded Confirmed Citalopram Hydrobromide [CeleXA] 40 mg PO DAILY 09/20/14 05/09/17 clonazePAM [KlonoPIN] 1 mg PO TID 09/20/14 05/09/17 fentaNYL 75MCG/HR PATCH [Duragesic 1 patch TRANSDERM Q72H 09/20/14 05/09/17 75MCG/HR] traMADol HCl [Ultram] 50 mg PO BID 10/19/16 05/09/17 Clopidogrel [Plavix] 75 mg PO HS 12/21/16 05/09/17 Furosemide [Lasix] 40 mg PO BID 12/21/16 05/09/17 Insulin Glargine [Lantus] 50 unit SQ HS 12/21/16 05/09/17 Lisinopril [Zestril] 20 mg PO DAILY 12/21/16 05/09/17 Tolterodine Tartrate [Detrol LA] 4 mg PO HS 12/21/16 05/09/17 Atorvastatin [Lipitor] 40 mg PO HS 01/30/17 05/09/17 INSULIN LISPRO (humaLOG) [humaLOG] See Protocol SQ ACHS 01/30/17 05/09/17 Albuterol Sulfate [Proair Hfa] 1 puff INHALATION RT-Q4H PRN 05/09/17 05/09/17 Gabapentin [Neurontin] 100 mg PO HS 05/09/17 05/09/17 Ipratropium Nebulized [Atrovent 0.5 mg INHALATION RT-QID 05/09/17 05/09/17 Nebulized] Previous Rx's Medication Instructions Recorded Ferrous Sulfate [Iron (65 MG 325 mg PO DAILY tab 10/08/15 Elemental)] Nitroglycerin Sl Tabs [Nitrostat] 0.4 mg SUBLINGUAL Q5M PRN #30 tab 12/23/16 Allergies Allergy/AdvReac Type Severity Reaction Status Date / Time adhesive Allergy Rash/Hives, Verified 04/22/17 23:40 W/ TAPES, CAN USE PAPER TAPE codeine Allergy Anaphylaxis Verified 04/22/17 23:40 latex Allergy Rash/Hives Verified 04/22/17 23:40 morphine Allergy Unknown Verified 04/22/17 23:40 Penicillins Allergy Anaphylaxis Verified 04/22/17 23:40 propoxyphene napsylate Allergy Anaphylaxis Verified 04/22/17 23:40 [From Darvocet-N 100] tuberculin, purified protein Allergy Rash/Hives Verified 04/22/17 23:40 deriva [tuberculin,purif.prot.deriv.] Review of Systems ROS Statement: Those systems with pertinent positive or pertinent negative responses have been documented in the HPI. review of systems patient does complain of being fatigued, headache. Chest discomfort. No nausea no vomiting no diarrhea. She uses a rolling walker to get around. States she has been able to get up and get down to her meals. If she can't they bring them to her. Denies any falls of late. Denying numbness or tingling. All systems were reviewed.Past medical problems include asthma, coronary disease, cancer, angina, CVATIA, diabetes on insulin. GERD, hyperlipidemia, hypertension, memory impairment, OA, pneumonia, sleep apnea. Patient had a urinary tract infection was being treated at that time last month. Cervical cancer with hysterectomy. Also history of MRSA. Other surgeries include heart catheterization with stents, bladder surgery and cholecystectomy. He also had a partial parathyroidectomy, bilateral cataracts. Past psychological history includes anxiety and depression. Denies smoking. Family history heart disease and cancer, father had prostate cancer. ROS Other: All systems not noted in ROS Statement are negative. 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 History of Any Multi-Drug Resistant Organisms: MRSA Date of last positivie culture/infection: 04/02/11 MDRO Source:: L chest/L lower leg/ankle Past Surgical History: Bladder Surgery, Cholecystectomy, Heart Catheterization, Heart Catheterization With Stent, Hysterectomy Additional Past Surgical History / Comment(s): PCI with a total of 5 stents per pt with last stent placed 06/29/16, partial parathyroidectomy, bilateral cataracts removed, I and D of L chest wall abscess and L ankle wound, bladder surgery with implant of stimulator system 02/2010, EGD/colonoscoy. Past Anesthesia/Blood Transfusion Reactions: No Reported Reaction Additional Past Anesthesia/Blood Transfusion Reaction / Comment(s): Pt states she has received blood in the past without reaction. Date of Last Stent Placement:: 06/29/16 Past Psychological History: Anxiety, Depression Smoking Status: Never smoker - Past Family History Father Family Medical History: Cancer, Coronary Artery Disease (CAD) Additional Family Medical History / Comment(s): Father had prostate cancer. Mother Family Medical History: Asthma, COPD General Exam - General Exam Comments Initial Comments: General: The patient is awake and alert, complains of generalized fatigue, chest discomfort, headache. vital signs shows temperature 97.4 pulse 58 respiratory rate 20 pulse ox 96% room air blood pressure 130/58 Eye: Pupils are equal, round and reactive to light, extra-ocular movements are intact ; there is normal conjunctiva bilaterally. No signs of icterus. history of cataract surgery bilaterally. Ears, nose, mouth and throat: There are moist mucous membranes and no oral lesions. Neck: The neck is supple, there is no tenderness. Cardiovascular: There is a regular rate and rhythm. No murmur, rub or gallop is appreciated. Respiratory: Lungs are clear to auscultation, respirations are non-labored, breath sounds are equal. No wheezes, stridor, rales, or rhonchi. Gastrointestinal: Soft, non-distended, non-tender abdomen without masses or organomegaly noted. There is no rebound or guarding present. denies back pain. Back: There is no tenderness to palpation in the midline. Musculoskeletal: Normal ROM, no tenderness, mild pitting edema left leg. . Sensation intact. Pulses equal bilaterally 2+. Neurological: no neuro deficits appreciated. Skin: no rashes Psychiatric: Cooperative, past history of depression and anxiety. Denies depression at this time. Limitations: no limitations Course Vital Signs 05/09/17 05/09/17 05/09/17 10:55 11:05 12:20 Temperature 97.4 F L Pulse Rate 58 L 55 L Respiratory 20 20 20 Rate Blood Pressure 130/58 105/51 O2 Sat by Pulse 96 100 Oximetry 05/09/17 13:14 Temperature Pulse Rate 59 L Respiratory 16 Rate Blood Pressure 105/65 O2 Sat by Pulse 95 Oximetry EKG Findings - EKG Comments: EKG Findings:: EKG was done and reviewed at 1116 showing sinus bradycardia with first-degree AV block. Rate 55 AR interval was 232 QRS 86 QT [address] Ulloa Medical Decision Making - Medical Decision Making chief complaint and history of present illness this is a 72-year-old female brought emergency room by ambulance because of not feeling well, continued headache since a fall last month, generalized weakness. Discomfort behind her left knee. Chest x-ray was done and reviewed the radiologist his impression is mild cardiomegaly. Chronic changes, possible chronic bronchitisasthma. No acute changes seen. As read by Dr. De Santiago CT of the brain was done and reviewed by radiologist this was compared to a previous CAT scan. His findings are no interval changes evident. There is no hemorrhage or hydrocephalus, no mass effect. Cortical atrophy, white matter demyelinization changes are again seen. There is evidence of old infarct right frontal lobe. Calvarium is intact. Paranasal sinuses and mastoid air cells as visualized are within normal limits. Impression stable exam, no acute abnormality. As read by Dr. Toscano labs show white count 7.7 hemoglobin 9.6 hematocrit 28.8, potassium 5.5. BUN elevated at 79 creatinine 1.96 with a GFR greater than 60. Glucose 138. Troponin less than 0.012. BNP 1650. review of previous lab stated 02/01/2017 found at that time the BUN to be 53 creatinine 1.14 the GFR 47. ultrasound of the left leg is reported to be negative for DVT by radiologist Dr. Yen. Case discussed with Dr. Squires patient admitted to his service with consultation from nephrology. - Lab Data Result diagrams: 05/09/17 11:17 05/09/17 11:56 Lab Results 05/09/17 05/09/17 05/09/17 Range/Units 11:17 11:17 11:17 WBC 7.7 (3.8-10.6) k/uL RBC 3.03 L (3.80-5.40) m/uL Hgb 9.6 L (11.4-16.0) gm/dL Hct 28.8 L (34.0-46.0) % MCV 94.9 D (80.0-100.0) fL MCH 31.6 (25.0-35.0) pg MCHC 33.3 (31.0-37.0) g/dL RDW 12.7 (11.5-15.5) % Plt Count 227 (150-450) k/uL Neutrophils % 71 % Lymphocytes % 16 % Monocytes % 6 % Eosinophils % 5 % Basophils % 0 % Neutrophils # 5.5 (1.3-7.7) k/uL Lymphocytes # 1.3 (1.0-4.8) k/uL Monocytes # 0.5 (0-1.0) k/uL Eosinophils # 0.4 (0-0.7) k/uL Basophils # 0.0 (0-0.2) k/uL PT (9.0-12.0) sec INR (<1.2) APTT (22.0-30.0) sec Sodium (137-145) mmol/L Potassium (3.5-5.1) mmol/L Chloride (98-107) mmol/L Carbon Dioxide (22-30) mmol/L Anion Gap mmol/L BUN (7-17) mg/dL Creatinine (0.52-1.04) mg/dL Est GFR (CKD-EPI)AfAm (>60 ml/min/1.73 sqM) Est GFR (CKD-EPI)NonAf (>60 ml/min/1.73 sqM) Glucose (74-99) mg/dL Plasma Lactic Acid Toy 0.8 (0.7-2.0) mmol/L Calcium (8.4-10.2) mg/dL Total Bilirubin (0.2-1.3) mg/dL AST (14-36) U/L ALT (9-52) U/L Alkaline Phosphatase (38-126) U/L Total Creatine Kinase 45 (30-135) U/L CK-MB (CK-2) 0.5 (0.0-2.4) ng/mL CK-MB (CK-2) Rel Index 1.1 Troponin I <0.012 (0.000-0.034) ng/mL NT-Pro-B Natriuret Pep pg/mL Total Protein (6.3-8.2) g/dL Albumin (3.5-5.0) g/dL Urine Color Urine Appearance (Clear) Urine pH (5.0-8.0) Ur Specific [place] (1.001-1.035) Urine Protein (Negative) Urine Glucose (UA) (Negative) Urine Ketones (Negative) Urine Blood (Negative) Urine Nitrite (Negative) Urine Bilirubin (Negative) Urine Urobilinogen (<2.0) mg/dL Ur Leukocyte Esterase (Negative) Urine WBC (0-5) /hpf Urine Mucus (None) /hpf 05/09/17 05/09/17 05/09/17 Range/Units 11:17 11:17 11:56 WBC (3.8-10.6) k/uL RBC (3.80-5.40) m/uL Hgb (11.4-16.0) gm/dL Hct (34.0-46.0) % MCV (80.0-100.0) fL MCH (25.0-35.0) pg MCHC (31.0-37.0) g/dL RDW (11.5-15.5) % Plt Count (150-450) k/uL Neutrophils % % Lymphocytes % % Monocytes % % Eosinophils % % Basophils % % Neutrophils # (1.3-7.7) k/uL Lymphocytes # (1.0-4.8) k/uL Monocytes # (0-1.0) k/uL Eosinophils # (0-0.7) k/uL Basophils # (0-0.2) k/uL PT 10.1 (9.0-12.0) sec INR 1.0 (<1.2) APTT 22.7 (22.0-30.0) sec Sodium 138 (137-145) mmol/L Potassium 5.5 H (3.5-5.1) mmol/L Chloride 100 (98-107) mmol/L Carbon Dioxide 33 H (22-30) mmol/L Anion Gap 5 mmol/L BUN 79 H (7-17) mg/dL Creatinine 1.96 H (0.52-1.04) mg/dL Est GFR (CKD-EPI)AfAm 28 (>60 ml/min/1.73 sqM) Est GFR (CKD-EPI)NonAf 25 (>60 ml/min/1.73 sqM) Glucose 138 H (74-99) mg/dL Plasma Lactic Acid Toy (0.7-2.0) mmol/L Calcium 9.2 (8.4-10.2) mg/dL Total Bilirubin 0.3 (0.2-1.3) mg/dL AST 8 L (14-36) U/L ALT 21 (9-52) U/L Alkaline Phosphatase 62 (38-126) U/L Total Creatine Kinase (30-135) U/L CK-MB (CK-2) (0.0-2.4) ng/mL CK-MB (CK-2) Rel Index Troponin I (0.000-0.034) ng/mL NT-Pro-B Natriuret Pep 1620 pg/mL Total Protein 5.5 L (6.3-8.2) g/dL Albumin 3.4 L (3.5-5.0) g/dL Urine Color Urine Appearance (Clear) Urine pH (5.0-8.0) Ur Specific [place] (1.001-1.035) Urine Protein (Negative) Urine Glucose (UA) (Negative) Urine Ketones (Negative) Urine Blood (Negative) Urine Nitrite (Negative) Urine Bilirubin (Negative) Urine Urobilinogen (<2.0) mg/dL Ur Leukocyte Esterase (Negative) Urine WBC (0-5) /hpf Urine Mucus (None) /hpf 05/09/17 Range/Units 12:27 WBC (3.8-10.6) k/uL RBC (3.80-5.40) m/uL Hgb (11.4-16.0) gm/dL Hct (34.0-46.0) % MCV (80.0-100.0) fL MCH (25.0-35.0) pg MCHC (31.0-37.0) g/dL RDW (11.5-15.5) % Plt Count (150-450) k/uL Neutrophils % % Lymphocytes % % Monocytes % % Eosinophils % % Basophils % % Neutrophils # (1.3-7.7) k/uL Lymphocytes # (1.0-4.8) k/uL Monocytes # (0-1.0) k/uL Eosinophils # (0-0.7) k/uL Basophils # (0-0.2) k/uL PT (9.0-12.0) sec INR (<1.2) APTT (22.0-30.0) sec Sodium (137-145) mmol/L Potassium (3.5-5.1) mmol/L Chloride (98-107) mmol/L Carbon Dioxide (22-30) mmol/L Anion Gap mmol/L BUN (7-17) mg/dL Creatinine (0.52-1.04) mg/dL Est GFR (CKD-EPI)AfAm (>60 ml/min/1.73 sqM) Est GFR (CKD-EPI)NonAf (>60 ml/min/1.73 sqM) Glucose (74-99) mg/dL Plasma Lactic Acid Toy (0.7-2.0) mmol/L Calcium (8.4-10.2) mg/dL Total Bilirubin (0.2-1.3) mg/dL AST (14-36) U/L ALT (9-52) U/L Alkaline Phosphatase (38-126) U/L Total Creatine Kinase (30-135) U/L CK-MB (CK-2) (0.0-2.4) ng/mL CK-MB (CK-2) Rel Index Troponin I (0.000-0.034) ng/mL NT-Pro-B Natriuret Pep pg/mL Total Protein (6.3-8.2) g/dL Albumin (3.5-5.0) g/dL Urine Color Colorless Urine Appearance Clear (Clear) Urine pH 5.0 (5.0-8.0) Ur Specific [place] 1.006 (1.001-1.035) Urine Protein Negative (Negative) Urine Glucose (UA) Negative (Negative) Urine Ketones Negative (Negative) Urine Blood Negative (Negative) Urine Nitrite Negative (Negative) Urine Bilirubin Negative (Negative) Urine Urobilinogen <2.0 (<2.0) mg/dL Ur Leukocyte Esterase Trace H (Negative) Urine WBC 2 (0-5) /hpf Urine Mucus Rare H (None) /hpf Disposition Clinical Impression: Acute on chronic renal failure Disposition: ADMITTED IP TO THIS HOSP Condition: Serious Referrals: Chris Yi MD [Primary Care Provider] - 1-2 days
[2017-05-09 12:18] LABS: Albumin 3.4 g/dL (3.5-5.0); Calcium 9.2 mg/dL (8.4-10.2); Potassium 5.5 mmol/L (3.5-5.1); Total Bilirubin 0.3 mg/dL (0.2-1.3); Total Protein 5.5 g/dL (6.3-8.2)
[2017-05-09 12:56] LABS: Appearance,Urine Clear (Clear); Bilirubin,Urine Negative (Negative); Blood,Urine Negative (Negative); Color,Urine Colorless; Glucose,Urine (UA) Negative (Negative); Ketones,Urine Negative (Negative); Leukocyte Esterase,Urine Trace (Negative); Mucus,Urine Rare /hpf; Nitrite,Urine Negative (Negative); Protein,Urine Negative (Negative); Specific Gravity,Urine 1.006 (1.001-1.035); Urobilinogen,Urine <2.0 mg/dL (<2.0); WBC,Urine 2 /hpf (0-5)
--- NOTE | 2017-05-09 13:23 | US ---
EXAMINATION TYPE: US venous doppler duplex LE LT DATE OF EXAM: 05/09/2017 1:11 PM COMPARISON: NONE CLINICAL HISTORY: mild pitting edema, discomfort behind left knee. SIDE PERFORMED: Left TECHNIQUE: The lower extremity deep venous system is examined utilizing real time linear array sonog jamal with graded compression, doppler sonography and color-flow sonography. VESSELS IMAGED: External Iliac Vein (EIV) Common Femoral Vein Deep Femoral Vein Greater Saphenous Vein * Femoral Vein Popliteal Vein Small Saphenous Vein * Proximal Calf Veins (* superficial vessels) Patient of large body habitus with a panis extending to mid thigh, pitting edema. Technically difficu lt study. Left Leg: Negative for DVT IMPRESSION: 1. No diagnostic evidence of DVT as visualized.
[2017-05-09] MEDS ORDERED: NALOXONE 0.4 MG/ML 1 ML VIAL IV PRN (14:40)
[2017-05-09] MEDS ORDERED: ALBUTEROL NEBULIZED 2.5 MG/3 ML INHALATION PRN (14:44)
[2017-05-09] MEDS: SODIUM CHLORIDE 0.9% 1,000 ML IV SCH (15:57)
[2017-05-09] MEDS ORDERED: ACETAMINOPHEN TAB 500 MG TAB PO STA (16:42)
[2017-05-09] MEDS ORDERED: LORazepam 2 MG/ML INJ IV STA (16:42)
[2017-05-09 17:40] LABS: Creatine Kinase 30 U/L (30-135)
[2017-05-09 17:53] LABS: Creatine Kinase MB 0.5 ng/mL (0.0-2.4); Troponin I <0.012 ng/mL (0.000-0.034)
[2017-05-09] MEDS: IPRATROPIUM 0.5 MG/2.5 ML NEBU INHALATION SCH ×2 (19:10→19:25)
[2017-05-09 20:08] VITALS: BMI 41.0
[2017-05-09] MEDS ORDERED: IPRATROPIUM-ALBUTEROL 3 ML NEB INHALATION PRN (20:11)
[2017-05-09 20:20] LABS: Glucose,Whole Blood 177 mg/dL (75-99)
[2017-05-09 21:35] LABS: Hemoglobin A1C 7.5 % (4.0-6.0)
[2017-05-09] MEDS: INSULIN ASPART 100 UNIT/ML 1 ML 10 ML VIAL SQ SCH ×2 (22:21→22:33)
[2017-05-09] MEDS: clonazePAM 1 MG TAB PO SCH ×2 (22:21→23:00)
[2017-05-09] MEDS: FAMOTIDINE 20 MG TAB PO SCH (22:54)
[2017-05-09] MEDS: CLOPIDOGREL 75 MG TAB PO SCH (22:54)
[2017-05-09] MEDS: ATORVASTATIN 40 MG TAB PO SCH (22:54)
[2017-05-09] MEDS: GABAPENTIN 100 MG CAP PO SCH (22:54)
[2017-05-09] MEDS: OXYBUTYNIN XL 5 MG TAB.ER.24 PO SCH (22:55)
--- NOTE | 2017-05-09 23:57 | HP ---
HISTORY AND PHYSICAL CHIEF COMPLAINT: A 72-year-old white female with chest discomfort, headache and fatigue. She has been confused over the past week or 2. She states she bumped her head. CT scan was done at that time, was negative. She was admitted with worsening renal function and confusion. HOME MEDICINES: Include: 1. Celexa 40 daily. 2. Klonopin 1 mg t.i.d. 3. Duragesic patch every 72 hours. 4. Tramadol 50 b.i.d. 5. Plavix 75 daily. 6. Lasix 40 b.i.d. 7. Lantus 50 daily. 8. Zestril 20 mg daily. 9. Detrol LA 4 mg daily. 10.Lipitor 40 daily. 11.Humalog a.c. and at bedtime. 12.Neurontin 100 q.h.s. 13.DuoNeb q.i.d. ALLERGIES: ADHESIVES, CODEINE, LATEX, MORPHINE, PENICILLINS, DARVOCET. PAST MEDICAL HISTORY: He has coronary artery disease, cancer, chest pain, GERD, dyslipidemia hypertension, memory impairment, osteoarthritis, pneumonia, BiPAP, CPAP, type 2 diabetes mellitus, obstructive sleep apnea. SURGERY: Bladder surgery, cholecystectomy, heart catheterization with stent, hysterectomy, 5 stents. PHYSICAL EXAM: Obese white female. PSYCH: Crying, anxious. NEUROLOGIC: Alert and oriented x3. LUNGS: Transmitted upper airway sounds. HEMATOLOGY: Negative Homans'. PSYCH: Fair mood and affect. VASCULAR: Normal dorsalis pedis, posterior tibial, radial pulse. OPHTHALMOLOGIC: Pupils equal, round, react to light and accommodation. Temp 97.4, pulse 98, respirations 18-20. EKG: Sinus rhythm. ASSESSMENT: 1. Altered mental status, confusion, memory loss. 2. Chronic bronchial asthma. 3. Acute on chronic renal insufficiency with worsening renal function. 4. Acute on chronic anemia. PLAN: Rehydrate the patient. She is suspect prerenal/renal failure. Get a neurologic consult for confusion, get Cardiac to see her while she is here. Please see further orders. MMODL / IJN: [id number] /
[2017-05-10 00:22] LABS: Calcium 9.1 mg/dL (8.4-10.2); Total Bilirubin 0.2 mg/dL (0.2-1.3); Total Protein 5.1 g/dL (6.3-8.2)
[2017-05-10 00:25] LABS: Basophils % (A) 0 %; Eosinophils # (A) 0.4 k/uL (0-0.7); Eosinophils % (A) 6 %; HCT 26.8 % (34.0-46.0); HGB 8.7 gm/dL (11.4-16.0); Lymphocytes # (A) 1.4 k/uL (1.0-4.8); Lymphocytes % (A) 21 %; MCHC 32.3 g/dL (31.0-37.0); Mean Platelet Volume 7.6; Monocytes # (A) 0.4 k/uL (0-1.0); Monocytes % (A) 6 %; Neutrophils # (A) 4.2 k/uL (1.3-7.7); Neutrophils % (A) 66 %; Platelet Count 214 k/uL (150-450); RBC 2.79 m/uL (3.80-5.40); RDW 12.5 % (11.5-15.5); WBC 6.5 k/uL (3.8-10.6)
[2017-05-10 00:26] LABS: Creatine Kinase 28 U/L (30-135)
[2017-05-10 00:30] LABS: Potassium 4.9 mmol/L (3.5-5.1)
[2017-05-10 00:39] LABS: Creatine Kinase MB 0.4 ng/mL (0.0-2.4); Troponin I <0.012 ng/mL (0.000-0.034)
[2017-05-10] MEDS: traMADol 50 MG TAB PO SCH ×3 (00:48→21:03)
[2017-05-10 07:10] LABS: Glucose,Whole Blood 119 mg/dL (75-99)
[2017-05-10] MEDS: INSULIN ASPART 100 UNIT/ML 1 ML 10 ML VIAL SQ SCH ×4 (07:18→21:02)
[2017-05-10] MEDS: CITALOPRAM HYDROBROMIDE 20 MG TAB PO SCH (07:51)
[2017-05-10] MEDS: FAMOTIDINE 20 MG TAB PO SCH (07:51)
[2017-05-10] MEDS: SODIUM CHLORIDE 0.9% 1,000 ML IV SCH ×2 (07:51→15:57)
[2017-05-10] MEDS: clonazePAM 1 MG TAB PO SCH ×3 (07:55→21:03)
[2017-05-10] MEDS: IPRATROPIUM-ALBUTEROL 3 ML NEB INHALATION SCH ×4 (08:01→20:49)
[2017-05-10 08:21] LABS: Basophils % (A) 0 %; Eosinophils # (A) 0.4 k/uL (0-0.7); Eosinophils % (A) 6 %; HCT 27.4 % (34.0-46.0); HGB 8.5 gm/dL (11.4-16.0); Hypochromasia Slight; Lymphocytes # (A) 1.3 k/uL (1.0-4.8); Lymphocytes % (A) 22 %; MCH 30.5 pg (25.0-35.0); MCHC 31.2 g/dL (31.0-37.0); MCV 97.7 fL (80.0-100.0); Mean Platelet Volume 8.2; Monocytes # (A) 0.4 k/uL (0-1.0); Monocytes % (A) 6 %; Neutrophils # (A) 3.9 k/uL (1.3-7.7); Neutrophils % (A) 64 %; Platelet Count 202 k/uL (150-450); RDW 12.6 % (11.5-15.5); WBC 6.1 k/uL (3.8-10.6)
[2017-05-10 08:45] LABS: Albumin 3.1 g/dL (3.5-5.0); Calcium 8.8 mg/dL (8.4-10.2); Potassium 5.2 mmol/L (3.5-5.1); Total Bilirubin 0.3 mg/dL (0.2-1.3); Total Protein 5.2 g/dL (6.3-8.2)
[2017-05-10] MEDS: FERROUS SULFATE 325 MG TAB PO SCH (11:46)
[2017-05-10 12:14] LABS: Glucose,Whole Blood 210 mg/dL (75-99)
[2017-05-10 16:53] LABS: Glucose,Whole Blood 224 mg/dL (75-99)
--- NOTE | 2017-05-10 16:58 | CONS ---
CONSULTATION DATE OF CONSULTATION: 05/10/17 REASON FOR CONSULTATION: Renal failure. HISTORY OF PRESENT ILLNESS: The patient is a 72-year-old female who is admitted to the hospital yesterday with the complaints of chest discomfort, weakness, fatigue, not feeling well. She was found to have a serum creatinine of 1.9 mg/dL. Previous labs show serum creatinine 1.1 on 03/08/2017. Blood pressure was not significantly low. The patient is not on any nonsteroidal anti-inflammatory agents at home. She was maintained on LINDSAY inhibitors and Lasix, which is currently on hold. The patient is also currently on IV fluids. She states she is feeling slightly better. PAST MEDICAL HISTORY: Hypertension. Coronary artery disease. Gastroesophageal reflux disease. Hyperlipidemia. Osteoarthritis. Obstructive sleep apnea. Urinary tract infection. Chronic back pain. History of incontinence, hiatal hernia, history of TIA, hemorrhoids, hypothyroidism, history of cervical cancer. PAST SURGICAL HISTORY: Hysterectomy, cardiac catheterization, cholecystectomy, coronary stent placement, bladder surgery, partial parathyroidectomy. Cataract surgery. SOCIAL HISTORY: Negative for smoking or drug abuse or alcohol abuse. MEDICATIONS: Medications at home prior to admission included Celexa, Ultram, Plavix, Lasix, insulin, Zestril, Detrol, insulin, ProAir, Neurontin, iron, Nitrostat. ALLERGIES: MULTIPLE INCLUDE CODEINE, LATEX, MORPHINE, PENICILLIN, DARVOCET, TB SKIN TEST, ADHESIVES. REVIEW OF SYSTEMS: As per HPI. Other systems negative. EXAMINATION: Patient is comfortable, awake, not in any acute distress. Blood pressure is 143/60, heart rate 56 per minute. She is afebrile. Examination of the heart S1, S2. Examination of the lungs bilateral breath sounds are heard. Abdomen is soft, nontender. Exam of the lower extremities showed no significant edema. [employer] exam is grossly intact. LAB: Show sodium 143, potassium 5.2, BUN 68, serum creatinine 1.29, hemoglobin 8.5 g/dL. Albumin is 3.1. UA shows no blood, no protein, WBCs 2. ASSESSMENT: 1. Acute kidney injury, prerenal, currently improving with IV hydration. Continue off of LINDSAY inhibitors and diuretics for now. 2. Mild hyperkalemia associated with hyperglycemia and acute kidney injury. Try to control blood sugars and aim for below 200. I would avoid Kayexalate at this time. 3. Anemia, rule out underlying GI bleed which can also be associated with hyperkalemia. 4. Hypertension, blood pressure currently not significantly elevated. Continue off of LINDSAY inhibitors. 5. Diabetes with hyperglycemia, currently. PLAN: Check iron studies. Check stool for occult blood. Repeat labs in a.m. Continue IV fluids. Check ultrasound of the kidneys if not done yet. Thank you for this consultation. We will continue to follow the patient with you during her hospitalization. MMODL / IJN: [id number] /
--- NOTE | 2017-05-10 18:23 | US ---
EXAMINATION TYPE: US kidneys/renal and bladder DATE OF EXAM: 05/10/2017 COMPARISON: CT 01/30/2017 CLINICAL HISTORY: RF. EXAM MEASUREMENTS: Right Kidney: 10.5 x 6.3 x 6.6 cm Left Kidney: 10.0 x 6.0 x 6.8 cm Right Kidney: No hydronephrosis or masses seen Left Kidney: No hydronephrosis or masses seen Bladder: empty Bilateral Jets seen: no There is no evidence for hydronephrosis at this point in time. No nephrolithiasis is seen. No lucy s are identified. The urinary bladder is poorly distended and thus suboptimally evaluated. IMPRESSION: No hydronephrosis is evident bilaterally.
--- NOTE | 2017-05-10 19:19 | P.PN ---
Subjective Progress Note Date: 05/10/17 (Patient seen and evaluated examined while covering for Dr. Chris Yi) Principal diagnosis: Altered mental status, confusion, acute renal failure, frequent fall, severe morbid obesity, chronic persistent severe asthma, type 2 diabetes mellitus, dyslipidemia hypertension hypertensive cardiovascular disease 05/10/2017, patient seen eval reexamined she sitting upright on the bed breathing K more comfortably she remains confused unable to give a detailed history but she does recall about confusion and altered mental status it appears that she was evaluated with a computedtomography scan of the head at that time no significant pathology was noted, she is a resident of [facility]. Arrived emergency department via ambulance because of chest discomfort , mild headache and general fatigue. She reports this has been ongoing since she fell on April 22. At that time she states she did bump her head. Currently patient denies any chest pain or shortness of breath Objective - Vital Signs Vital signs: Vital Signs Temp 97.6 F 05/10/17 15:00 Pulse 60 05/10/17 16:41 Resp 18 05/10/17 15:14 BP 131/61 05/10/17 15:00 Pulse Ox 93 L 05/10/17 15:00 Intake & Output 05/10/17 05/10/17 05/11/17 06:59 18:59 06:59 Intake Total 1160 Balance 1160 Weight 98.43 kg 98.43 kg Intake: Intake, IV Titration 800 Amount Sodium Chloride 0.9% 1, 800 000 ml @ 80 mls/hr IV . [id number] [facility] Rx#:[id number] Oral 360 Other: Voiding Method Bedside Commode Bedside Commode # Voids 3 3 - Exam The patient is awake and alert, complains of generalized fatigue, Eye: Pupils are equal, round and reactive to light, extra-ocular movements are intact; there is normal conjunctiva bilaterally. No signs of icterus. history of cataract surgery bilaterally. Ears, nose, mouth and throat: There are moist mucous membranes and no oral lesions. Neck: The neck is supple, there is no tenderness. Cardiovascular: There is a regular rate and rhythm. No murmur, rub or gallop is appreciated. Respiratory: Lungs are clear to auscultation, respirations are non-labored, breath sounds are equal. No wheezes, stridor, rales, or rhonchi. Gastrointestinal: Soft, non-distended, non-tender abdomen without masses or organomegaly noted. There is no rebound or guarding present. denies back pain. Back: There is no tenderness to palpation in the midline. Musculoskeletal: Normal ROM, no tenderness, mild pitting edema left leg. . Sensation intact. Pulses equal bilaterally 2+. Neurological: no neuro deficits appreciated. Skin: no rashes Psychiatric: Cooperative, past history of depression and anxiety. Denies depression at this time. - Labs CBC & Chem 7: 05/10/17 07:58 05/10/17 07:58 Labs: Abnormal Lab Results - Last 24 Hours (Table) 05/09/17 05/09/17 05/09/17 Range/Units 11:17 20:10 23:33 RBC 2.79 L (3.80-5.40) m/uL Hgb 8.7 L (11.4-16.0) gm/dL Hct 26.8 L (34.0-46.0) % Potassium (3.5-5.1) mmol/L Carbon Dioxide (22-30) mmol/L BUN (7-17) mg/dL Creatinine (0.52-1.04) mg/dL Glucose (74-99) mg/dL POC Glucose (mg/dL) 177 H (75-99) mg/dL Hemoglobin A1c 7.5 H (4.0-6.0) % AST (14-36) U/L Total Creatine Kinase (30-135) U/L Total Protein (6.3-8.2) g/dL Albumin (3.5-5.0) g/dL 05/09/17 05/09/17 05/10/17 Range/Units 23:33 23:33 06:58 RBC (3.80-5.40) m/uL Hgb (11.4-16.0) gm/dL Hct (34.0-46.0) % Potassium (3.5-5.1) mmol/L Carbon Dioxide 35 H (22-30) mmol/L BUN 71 H (7-17) mg/dL Creatinine 1.60 H (0.52-1.04) mg/dL Glucose 153 H (74-99) mg/dL POC Glucose (mg/dL) 119 H (75-99) mg/dL Hemoglobin A1c (4.0-6.0) % AST 8 L (14-36) U/L Total Creatine Kinase 28 L (30-135) U/L Total Protein 5.1 L (6.3-8.2) g/dL Albumin 3.0 L (3.5-5.0) g/dL 05/10/17 05/10/17 05/10/17 Range/Units 07:58 07:58 12:11 RBC 2.80 L (3.80-5.40) m/uL Hgb 8.5 L (11.4-16.0) gm/dL Hct 27.4 L (34.0-46.0) % Potassium 5.2 H (3.5-5.1) mmol/L Carbon Dioxide 34 H (22-30) mmol/L BUN 68 H (7-17) mg/dL Creatinine 1.29 H (0.52-1.04) mg/dL Glucose 106 H (74-99) mg/dL POC Glucose (mg/dL) 210 H (75-99) mg/dL Hemoglobin A1c (4.0-6.0) % AST 9 L (14-36) U/L Total Creatine Kinase (30-135) U/L Total Protein 5.2 L (6.3-8.2) g/dL Albumin 3.1 L (3.5-5.0) g/dL 05/10/17 Range/Units 16:52 RBC (3.80-5.40) m/uL Hgb (11.4-16.0) gm/dL Hct (34.0-46.0) % Potassium (3.5-5.1) mmol/L Carbon Dioxide (22-30) mmol/L BUN (7-17) mg/dL Creatinine (0.52-1.04) mg/dL Glucose (74-99) mg/dL POC Glucose (mg/dL) 224 H (75-99) mg/dL Hemoglobin A1c (4.0-6.0) % AST (14-36) U/L Total Creatine Kinase (30-135) U/L Total Protein (6.3-8.2) g/dL Albumin (3.5-5.0) g/dL Microbiology - Last 24 Hours (Table) 05/09/17 12:27 Urine Culture - Preliminary Urine,Voided Assessment and Plan Assessment: Generalized weakness fatigue Acute renal failure likely related to intravascular volume depletion and dehydration as a gentle rehydration renal functions are improving Altered mental status confusion likely related to renal failure, electrolyte imbalance and hyperkalemia Chronic anemia Severe morbid obesity and likely obstructive sleep apnea him a patient needs to be evaluated in that regard outpatient setting Chronic persistent asthma Mood disorder depression patient has been on fentanyl patch as well would recommend to discontinue it, repeat labs tomorrow Plan: As noted as noted above, patient seen eval reexamined while covering for Dr. Chris Yi Time with Patient: Greater than 30
[2017-05-10 19:38] LABS: Iron Saturation 18.82 (12.00-45.00)
--- NOTE | 2017-05-10 20:24 | P.CNNES ---
History of Present Illness Consult date: 05/10/17 History of Present Illness: The patient 72-year-old right-handed white female who was admitted to the hospital with acute renal failure. ALLERGIES requested see the patient regarding altered mental status. The patient reports that she lives in an assisted living facility and that she's been having some confusion for a few days. She states that 2 days ago she fell hitting her head against the wall and falling on the left side of her body. She states that EMS was called and she was brought to the hospital because of the fall. She denied any loss of consciousness. According to the record however the patient was admitted to the hospital because of shortness of breath fatigued and dehydration. All had occurred apparently last month and she was brought to the hospital at that time and had a CAT scan of the brain which was stable. On admission to the hospital yesterday she had another CAT scan of the brain which showed no acute abnormality and was compared to the previous one with no change. The patient complains of some discomfort in the occiput. As a history of chronic neck pain and chronic low back pain. States that her confusion has been going on for about a month. He was admitted with worsening renal function and confusion. Review of Systems ROS unobtainable: due to mental status 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 History of Any Multi-Drug Resistant Organisms: MRSA Date of last positivie culture/infection: 04/02/11 MDRO Source:: L chest/L lower leg/ankle Past Surgical History: Bladder Surgery, Cholecystectomy, Heart Catheterization, Heart Catheterization With Stent, Hysterectomy Additional Past Surgical History / Comment(s): PCI with a total of 5 stents per pt with last stent placed 06/29/16, partial parathyroidectomy, bilateral cataracts removed, I and D of L chest wall abscess and L ankle wound, bladder surgery with implant of stimulator system 02/2010, EGD/colonoscoy. Past Anesthesia/Blood Transfusion Reactions: No Reported Reaction Additional Past Anesthesia/Blood Transfusion Reaction / Comment(s): Pt states she has received blood in the past without reaction. Date of Last Stent Placement:: 06/29/16 Past Psychological History: Anxiety, Depression Additional Psychological History / Comment(s): RESIDES @ [facility] apartments. USES WALKER OR W/C . hx of falls. HOME CARE FROM [facility]FOR MEDICATION ADMINISTRATION. O2 at 2L/NC ATC. Staff manages her medications. She . She goes to a [employer] area for meals usually. She states she has had increased depression lately but denies suicidal thoughts or plans. Smoking Status: Never smoker Past Alcohol Use History: None Reported Past Drug Use History: None Reported - Past Family History Father Family Medical History: Cancer, Coronary Artery Disease (CAD) Additional Family Medical History / Comment(s): Father had prostate cancer. Mother Family Medical History: Asthma, COPD Medications and Allergies Home Medications Medication Instructions Recorded Confirmed Type Citalopram Hydrobromide [CeleXA] 40 mg PO DAILY 09/20/14 05/09/17 History clonazePAM [KlonoPIN] 1 mg PO TID 09/20/14 05/09/17 History fentaNYL 75MCG/HR PATCH [Duragesic 1 patch TRANSDERM Q72H 09/20/14 05/09/17 History 75MCG/HR] Ferrous Sulfate [Iron (65 MG 325 mg PO DAILY tab 10/08/15 05/09/17 Rx Elemental)] traMADol HCl [Ultram] 50 mg PO BID 10/19/16 05/09/17 History Clopidogrel [Plavix] 75 mg PO HS 12/21/16 05/09/17 History Furosemide [Lasix] 40 mg PO BID 12/21/16 05/09/17 History Insulin Glargine [Lantus] 50 unit SQ HS 12/21/16 05/09/17 History Lisinopril [Zestril] 20 mg PO DAILY 12/21/16 05/09/17 History Tolterodine Tartrate [Detrol LA] 4 mg PO HS 12/21/16 05/09/17 History Nitroglycerin Sl Tabs [Nitrostat] 0.4 mg SUBLINGUAL Q5M PRN #30 tab 12/23/1608/21 Rx Atorvastatin [Lipitor] 40 mg PO HS 01/30/17 05/09/17 History INSULIN LISPRO (humaLOG) [humaLOG] See Protocol SQ ACHS 01/30/17 05/09/17 History Albuterol Sulfate [Proair Hfa] 1 puff INHALATION RT-Q4H PRN 05/09/17 05/09/17 History Gabapentin [Neurontin] 100 mg PO HS 05/09/17 05/09/17 History Ipratropium Nebulized [Atrovent 0.5 mg INHALATION RT-QID 05/09/17 05/09/17 History Nebulized] Allergies Allergy/AdvReac Type Severity Reaction Status Date / Time adhesive Allergy Rash/Hives, Verified 04/22/17 23:40 W/ TAPES, CAN USE PAPER TAPE codeine Allergy Anaphylaxis Verified 04/22/17 23:40 latex Allergy Rash/Hives Verified 04/22/17 23:40 morphine Allergy Unknown Verified 04/22/17 23:40 Penicillins Allergy Anaphylaxis Verified 04/22/17 23:40 propoxyphene napsylate Allergy Anaphylaxis Verified 04/22/17 23:40 [From Darvocet-N 100] tuberculin, purified protein Allergy Rash/Hives Verified 04/22/17 23:40 deriva [tuberculin,purif.prot.deriv.] Physical Examination - Vital Signs Vital Signs: Vital Signs Temp Pulse Pulse Resp BP Pulse Ox 05/10/17 16:41 60 05/10/17 16:28 60 05/10/17 15:14 18 05/10/17 15:00 97.6 F 58 L 18 131/61 93 L 05/10/17 12:05 56 L 05/10/17 11:52 56 L 05/10/17 08:12 60 05/10/17 08:01 60 05/10/17 07:00 97.6 F 56 L 18 143/60 99 05/09/17 22:26 97.6 F 56 L 18 113/48 99 Intake and Output 05/10/17 05/10/17 05/10/17 06:59 14:59 22:59 Intake Total 1160 Balance 1160 Intake: Intake, IV Titration 800 Amount Sodium Chloride 0.9% 1, 800 000 ml @ 80 mls/hr IV . [id number] [facility] Rx#:[id number] Oral 360 Other: Voiding Method Bedside Commode Bedside Commode Bedside Commode # Voids 3 3 3 Weight 98.43 kg Patient Weight 05/11/17 06:59 Weight 98.43 kg - Constitutional General appearance: obese - EENT EENT: PERRL - Respiratory Respiratory: lungs clear - Cardiovascular Cardiovascular: regular rate, normal S1, normal S2 - Neurologic Neurologic exam mental status: She was awake alert oriented to person and place. The year was the month was May she knew the city there is no a aphasia or dysarthria Cranial nerve examination: PERRL, EOMI, VFF, face symmetric, tongue midline Speech examination: intact Detailed motor examination: grossly full strength in all extremities - Psychiatric Psychiatric: cooperative Results - Laboratory Findings CBC and BMP: 05/10/17 07:58 05/10/17 07:58 Abnormal Lab Findings: Abnormal Labs 05/09/17 05/09/17 05/09/17 11:17 11:17 11:56 RBC 3.03 L Hgb 9.6 L Hct 28.8 L Potassium 5.5 H Carbon Dioxide 33 H BUN 79 H Creatinine 1.96 H Glucose 138 H POC Glucose (mg/dL) Hemoglobin A1c 7.5 H AST 8 L Total Creatine Kinase Total Protein 5.5 L Albumin 3.4 L Ur Leukocyte Esterase Urine Mucus 05/09/17 05/09/17 05/09/17 12:27 20:10 23:33 RBC 2.79 L Hgb 8.7 L Hct 26.8 L Potassium Carbon Dioxide BUN Creatinine Glucose POC Glucose (mg/dL) 177 H Hemoglobin A1c AST Total Creatine Kinase Total Protein Albumin Ur Leukocyte Esterase Trace H Urine Mucus Rare H 05/09/17 05/09/17 05/10/17 23:33 23:33 06:58 RBC Hgb Hct Potassium Carbon Dioxide 35 H BUN 71 H Creatinine 1.60 H Glucose 153 H POC Glucose (mg/dL) 119 H Hemoglobin A1c AST 8 L Total Creatine Kinase 28 L Total Protein 5.1 L Albumin 3.0 L Ur Leukocyte Esterase Urine Mucus 05/10/17 05/10/17 05/10/17 07:58 07:58 12:11 RBC 2.80 L Hgb 8.5 L Hct 27.4 L Potassium 5.2 H Carbon Dioxide 34 H BUN 68 H Creatinine 1.29 H Glucose 106 H POC Glucose (mg/dL) 210 H Hemoglobin A1c AST 9 L Total Creatine Kinase Total Protein 5.2 L Albumin 3.1 L Ur Leukocyte Esterase Urine Mucus 05/10/17 16:52 RBC Hgb Hct Potassium Carbon Dioxide BUN Creatinine Glucose POC Glucose (mg/dL) 224 H Hemoglobin A1c AST Total Creatine Kinase Total Protein Albumin Ur Leukocyte Esterase Urine Mucus Assessment and Plan (1) Acute on chronic renal failure Current Visit: Yes Status: Acute SNOMED Code(s): 311980749 (2) Altered mental status Current Visit: No Status: Acute SNOMED Code(s): 479992609 Plan: The patient is a 72-year-old woman admitted to the hospital with altered mental status and acute on chronic renal insufficiency. She complains of the some discomfort in the occiput. She has had 2 CAT scans of the brain which are unremarkable. She also had a CT of the cervical spine when she fell on April 22 which was up without any fracture. Patient likely has a metabolic encephalopathy causing her confusion. Recommend EEG. Physical therapy and potential rehab candidate
[2017-05-10 20:46] LABS: Glucose,Whole Blood 196 mg/dL (75-99)
[2017-05-10] MEDS: OXYBUTYNIN XL 5 MG TAB.ER.24 PO SCH (21:03)
[2017-05-10] MEDS: CLOPIDOGREL 75 MG TAB PO SCH (21:03)
[2017-05-10] MEDS: ATORVASTATIN 40 MG TAB PO SCH (21:03)
[2017-05-10] MEDS: GABAPENTIN 100 MG CAP PO SCH (21:04)
[2017-05-10] MEDS ORDERED: FUROSEMIDE 40 MG TAB PO STA (23:55)
[2017-05-11] MEDS: methylPREDNISolone SOD SUCCI 40 MG/ML 1 ML VIAL IV SCH ×3 (00:43→22:00)
[2017-05-11] MEDS: SODIUM CHLORIDE 0.9% 1,000 ML IV SCH ×2 (00:46→17:30)
[2017-05-11] MEDS: IPRATROPIUM-ALBUTEROL 3 ML NEB INHALATION SCH ×4 (06:55→20:18)
[2017-05-11 07:15] LABS: Glucose,Whole Blood 310 mg/dL (75-99)
[2017-05-11] MEDS: INSULIN ASPART 100 UNIT/ML 1 ML 10 ML VIAL SQ SCH ×5 (08:40→21:59)
[2017-05-11] MEDS: clonazePAM 1 MG TAB PO SCH ×3 (08:42→22:00)
[2017-05-11] MEDS: traMADol 50 MG TAB PO SCH ×2 (08:42→22:00)
[2017-05-11] MEDS: FUROSEMIDE 40 MG TAB PO SCH ×2 (08:42→17:30)
[2017-05-11] MEDS: FAMOTIDINE 20 MG TAB PO SCH (08:42)
[2017-05-11] MEDS: CITALOPRAM HYDROBROMIDE 20 MG TAB PO SCH (08:43)
[2017-05-11 09:01] LABS: Basophils % (A) 0 %; Eosinophils % (A) 0 %; HCT 32.2 % (34.0-46.0); HGB 10.2 gm/dL (11.4-16.0); Lymphocytes # (A) 0.4 k/uL (1.0-4.8); Lymphocytes % (A) 5 %; MCHC 31.5 g/dL (31.0-37.0); MCV 98.2 fL (80.0-100.0); Monocytes # (A) 0.1 k/uL (0-1.0); Monocytes % (A) 2 %; Neutrophils # (A) 6.3 k/uL (1.3-7.7); Neutrophils % (A) 92 %; Platelet Count 231 k/uL (150-450); RBC 3.28 m/uL (3.80-5.40); RDW 12.4 % (11.5-15.5); WBC 6.9 k/uL (3.8-10.6)
[2017-05-11 09:25] LABS: Albumin 3.7 g/dL (3.5-5.0); Calcium 9.5 mg/dL (8.4-10.2); Total Bilirubin 0.2 mg/dL (0.2-1.3); Total Protein 5.9 g/dL (6.3-8.2)
[2017-05-11 09:30] LABS: Potassium 6.4 mmol/L (3.5-5.1)
--- NOTE | 2017-05-11 09:30 | P.PN ---
Subjective Progress Note Date: 05/11/17 Principal diagnosis: Altered mental status, confusion, acute renal failure, frequent fall, severe morbid obesity, chronic persistent severe asthma, type 2 diabetes mellitus, dyslipidemia hypertension hypertensive cardiovascular disease 05/11/2017, patient seen eval examined during the rounds she is more alert awake sitting upright on the bed breathing more comfortably denies any chest pain confusion has improved significantly patient has been eval by neurology service, no more spiking fever is noted urine culture negative, labs from today reviewed chemistries still pending 05/10/2017, patient seen eval reexamined she sitting upright on the bed breathing K more comfortably she remains confused unable to give a detailed history but she does recall about confusion and altered mental status it appears that she was evaluated with a computedtomography scan of the head at that time no significant pathology was noted, she is a resident of [facility]. Arrived emergency department via ambulance because of chest discomfort , mild headache and general fatigue. She reports this has been ongoing since she fell on April 22. At that time she states she did bump her head. Currently patient denies any chest pain or shortness of breath Objective - Vital Signs Vital signs: Vital Signs Temp 98 F 05/11/17 07:00 Pulse 60 05/11/17 07:05 Resp 14 05/11/17 07:05 BP 140/94 05/11/17 07:00 Pulse Ox 95 05/11/17 07:00 Intake & Output 05/10/17 05/11/17 05/11/17 18:59 06:59 18:59 Intake Total 1160 540 Balance 1160 540 Weight 98.43 kg Intake: Intake, IV Titration 800 540 Amount Sodium Chloride 0.9% 1, 800 540 000 ml @ 80 mls/hr IV . [id number] [facility] Rx#:[id number] Oral 360 Other: Voiding Method Bedside Commode Bedside Commode # Voids 3 5 - Exam The patient is awake and alert, complains of generalized fatigue, Eye: Pupils are equal, round and reactive to light, extra-ocular movements are intact; there is normal conjunctiva bilaterally. No signs of icterus. history of cataract surgery bilaterally. Ears, nose, mouth and throat: There are moist mucous membranes and no oral lesions. Neck: The neck is supple, there is no tenderness. Cardiovascular: There is a regular rate and rhythm. No murmur, rub or gallop is appreciated. Respiratory: Lungs are clear to auscultation, respirations are non-labored, breath sounds are equal. No wheezes, stridor, rales, or rhonchi. Gastrointestinal: Soft, non-distended, non-tender abdomen without masses or organomegaly noted. There is no rebound or guarding present. denies back pain. Back: There is no tenderness to palpation in the midline. Musculoskeletal: Normal ROM, no tenderness, mild pitting edema left leg. . Sensation intact. Pulses equal bilaterally 2+. Neurological: no neuro deficits appreciated. Skin: no rashes Psychiatric: Cooperative, past history of depression and anxiety. Denies depression at this time. - Labs CBC & Chem 7: 05/11/17 08:28 05/10/17 07:58 Labs: Abnormal Lab Results - Last 24 Hours (Table) 05/10/17 05/10/17 05/10/17 Range/Units 07:58 12:11 16:52 RBC (3.80-5.40) m/uL Hgb (11.4-16.0) gm/dL Hct (34.0-46.0) % Lymphocytes # (1.0-4.8) k/uL POC Glucose (mg/dL) 210 H 224 H (75-99) mg/dL Iron 48 L (50-170) ug/dL 05/10/17 05/11/17 05/11/17 Range/Units 20:45 07:03 08:28 RBC 3.28 L (3.80-5.40) m/uL Hgb 10.2 L (11.4-16.0) gm/dL Hct 32.2 L (34.0-46.0) % Lymphocytes # 0.4 L (1.0-4.8) k/uL POC Glucose (mg/dL) 196 H 310 H (75-99) mg/dL Iron (50-170) ug/dL Microbiology - Last 24 Hours (Table) 05/09/17 12:27 Urine Culture - Final Urine,Voided Assessment and Plan Assessment: Generalized weakness fatigue Acute renal failure likely related to intravascular volume depletion and dehydration as a gentle rehydration renal functions are improving Altered mental status confusion likely related to renal failure, electrolyte imbalance and hyperkalemia Chronic anemia Severe morbid obesity and likely obstructive sleep apnea him a patient needs to be evaluated in that regard outpatient setting Chronic persistent asthma Mood disorder depression patient has been on fentanyl patch as well would recommend to discontinue it, repeat labs tomorrow Plan: As noted as noted above, patient seen eval reexamined while covering for Dr. Chris Yi Time with Patient: Greater than 30
[2017-05-11] MEDS ORDERED: SODIUM POLYSTYRENE SULFONATE 15 GM/60 ML BOTTLE PO STA (09:50)
--- NOTE | 2017-05-11 11:13 | CDI ---
Last Revision, February 2017 Documentation Clarification Form Date: 05/11/2017 11:04:00 AM From: Cat Babcock Admit Date: 05/09/2017 2:40:00 PM Patient Name: Carla Garvin Visit Number: [id number] ATTENTION: The Clinical Documentation Specialists (CDI) and [facility] Coding Staff appreciate your assistance in clarifying documentation. Please respond to the clarification below the line at the bottom and electronically sign. The CDI & [facility] Coding staff will review the response and follow-up if needed. Please note: Queries are made part of the Legal Health Record. If you have any questions, please contact the author of this message via ITS. Dr. Chris Yi, A diagnosis of anemia lacks specificity to accurately reflect your patients severity of condition and clarification is needed. History/Risk Factors: CAD, Cancer, chest pain, GERD, dyslipidemia Hypertension, memory impairment, OA, pneumonia, BiPap, DM 2 . Currently came in with weakness Clinical indicators: Hemoglobin on admission: 9.6 Hematocrit on admission: 28.8 weakness Treatment: Monitor Labs IV fluids In order to capture the severity of condition, please clarify the type of anemia and etiology if known: Acute blood loss anemia Acute on chronic blood loss anemia Chronic blood loss anemia Iron deficiency anemia Anemia due to malignancy Anemia of chronic kidney disease Unable to determine Other, please specify Please continue to document in your progress notes and discharge summary or under the line below, in order to capture severity of illness and risk of mortality. Include clinical findings that support your diagnosis. MTDD
--- NOTE | 2017-05-11 11:33 | CDI ---
Last Revision, February 2017 Documentation Clarification Form Date: 05/11/2017 11:20:00 AM From: Cat Babcock RN Admit Date: 05/09/2017 2:40:00 PM Patient Name: Carla Garvin Visit Number: [id number] ATTENTION: The Clinical Documentation Specialists (CDI) and [facility] Coding Staff appreciate your assistance in clarifying documentation. Please respond to the clarification below the line at the bottom and electronically sign. The CDI & [facility] Coding staff will review the response and follow-up if needed. Please note: Queries are made part of the Legal Health Record. If you have any questions, please contact the author of this message via ITS. Dr. Chris Yi, Altered Mental status changes is documented in the chart on 05/09 in the H&P, 05/10 and 05/11. History/Risk factors: CAD, cancer, chest pain, GERD , dyslipidemia hypertension, memory impairment , OA, pneumonia, BiPap, Type 2 DM. Currently admitted with chest discomfort, headache, fatigue and confusion. Clinical Indicators: Labs on admission: RBC 3.03, HGB 9.6, K+ 5.5, BUN 79, CR 1.96, AST 8, TOTAL PROTEIN 5.5, ALBUMIN 3.4 CT/MRI Brain: stable exam. no acute abnormality Treatment: Consults: Neurology, Nephrology monitor labs In your professional opinion, can you please clarify the specific type of encephalopathy, if known? Anoxic Encephalopathy Metabolic Encephalopathy Toxic Encephalopathy Traumatic Encephalopathy Hepatic Encephalopathy, if indicated, please clarify: Indicate whether acute, sub-acute or chronic? Other, please specify Unable to determine Please continue to document in your progress notes and discharge summary, or under the line below, in order to capture severity of illness and risk of mortality. Include clinical findings that support your diagnosis. MTDD
[2017-05-11 11:48] LABS: Glucose,Whole Blood 401 mg/dL (75-99)
[2017-05-11] MEDS: FERROUS SULFATE 325 MG TAB PO SCH (12:33)
--- NOTE | 2017-05-11 16:35 | PN ---
PROGRESS NOTE Patient is seen for followup for acute kidney injury. Her renal function has improved. However, her serum potassium this morning was 6.4 mEq/L. Patient received a dose of Kayexalate this morning. She also received IV Lasix yesterday and is now switched to oral Lasix. The patient states she has been voiding well. EXAMINATION: Blood pressure is 140/94, heart rate 60 per minute. She is afebrile. Examination of the heart: S1 and S2. Examination of lungs: Bilateral breath sounds are heard. Decreased breath sounds at bases. Abdomen is soft, obese, distended. Examination of lower extremities shows trace edema bilaterally. CHIEF DATA OFFICER exam is grossly intact. LAB: Show sodium 146, potassium 6.4 now down to 5.6, chloride 100, BUN 46, serum creatinine 1.08. UA was essentially clear. Hemoglobin 7.2 g/dL. ASSESSMENT: 1. Acute kidney injury prerenal currently improved. Continue off of LINDSAY inhibitors given the severe hyperkalemia. The patient received Kayexalate today and potassium is down. Blood sugars are still elevated with a glucose of 400 mL. This is significantly contributing to the hyperglycemia as well. 2. Hypertension. Continue off of LINDSAY inhibitors. 3. Type 2 diabetes, currently uncontrolled. PLAN: Improve blood sugar control. Continue with Lasix. Repeat labs in a.m. and continue patient on low-potassium diet. Check bladder scan. Rule out urinary retention. MMODL / IJN: [id number] /
[2017-05-11 17:09] LABS: Glucose,Whole Blood 411 mg/dL (75-99)
[2017-05-11 20:41] LABS: Glucose,Whole Blood 311 mg/dL (75-99)
[2017-05-11] MEDS ORDERED: INSULIN DETEMIR 100 UNIT/ML 10 ML VIAL SQ SCH (21:00)
[2017-05-11] MEDS: CLOPIDOGREL 75 MG TAB PO SCH (21:46)
[2017-05-11] MEDS: ATORVASTATIN 40 MG TAB PO SCH (21:46)
[2017-05-11] MEDS: GABAPENTIN 100 MG CAP PO SCH (21:59)
[2017-05-11] MEDS: OXYBUTYNIN XL 5 MG TAB.ER.24 PO SCH (22:00)
[2017-05-11] MEDS: INSULIN DETEMIR 100 UNIT/ML 10 ML VIAL SQ SCH (22:00)
[2017-05-12] MEDS: CITALOPRAM HYDROBROMIDE 20 MG TAB PO SCH (07:18)
[2017-05-12] MEDS: methylPREDNISolone SOD SUCCI 40 MG/ML 1 ML VIAL IV SCH ×2 (07:18→20:37)
[2017-05-12] MEDS: traMADol 50 MG TAB PO SCH ×2 (07:19→20:36)
[2017-05-12] MEDS: FAMOTIDINE 20 MG TAB PO SCH (07:19)
[2017-05-12] MEDS: FERROUS SULFATE 325 MG TAB PO SCH (07:20)
[2017-05-12] MEDS: FUROSEMIDE 40 MG TAB PO SCH ×2 (07:20→17:24)
[2017-05-12] MEDS: clonazePAM 1 MG TAB PO SCH ×3 (07:20→20:36)
[2017-05-12 07:33] LABS: Glucose,Whole Blood 356 mg/dL (75-99)
[2017-05-12] MEDS: IPRATROPIUM-ALBUTEROL 3 ML NEB INHALATION SCH ×4 (08:34→20:17)
[2017-05-12] MEDS: INSULIN ASPART 100 UNIT/ML 1 ML 10 ML VIAL SQ SCH ×7 (08:56→20:36)
[2017-05-12] MEDS: SODIUM CHLORIDE 0.9% 1,000 ML IV SCH (09:08)
[2017-05-12 11:51] LABS: Basophils % (A) 0 %; Eosinophils % (A) 0 %; HCT 31.2 % (34.0-46.0); HGB 9.9 gm/dL (11.4-16.0); Lymphocytes # (A) 0.7 k/uL (1.0-4.8); Lymphocytes % (A) 7 %; MCH 30.5 pg (25.0-35.0); MCHC 31.6 g/dL (31.0-37.0); MCV 96.4 fL (80.0-100.0); Mean Platelet Volume 7.2; Monocytes # (A) 0.4 k/uL (0-1.0); Monocytes % (A) 5 %; Neutrophils % (A) 87 %; Platelet Count 227 k/uL (150-450); RBC 3.24 m/uL (3.80-5.40); RDW 12.5 % (11.5-15.5); WBC 9.1 k/uL (3.8-10.6)
[2017-05-12 11:56] LABS: Albumin 3.7 g/dL (3.5-5.0); Calcium 9.5 mg/dL (8.4-10.2); Magnesium 1.7 mg/dL (1.6-2.3); Total Bilirubin 0.2 mg/dL (0.2-1.3); Total Protein 5.7 g/dL (6.3-8.2)
[2017-05-12 12:02] LABS: Glucose,Whole Blood 314 mg/dL (75-99)
--- NOTE | 2017-05-12 13:20 | P.PN ---
Subjective Progress Note Date: 05/12/17 [facility] is covering for Dr. Yi. Patient is being seen examined and evaluated today on rounds. The patient came into the emergency room originally for chest discomfort headache generalized fatigue and confusion. She was admitted to the hospital with renal failure. She currently has nephrology on consult. Upon examination the patient's resting up in bed on 2 L of supplemental oxygen via nasal cannula. Continues to have a congested cough. Her BUN and creatinine are improving. Nephrology is following the patient closely. Labs and reports have been reviewed. She is hemodynamically stable. She is afebrile no further complaints. Objective - Vital Signs Vital signs: Vital Signs Temp 98.2 F 05/12/17 07:00 Pulse 80 05/12/17 11:04 Resp 16 05/12/17 11:04 BP 133/68 05/12/17 07:00 Pulse Ox 97 05/12/17 10:54 Intake & Output 05/11/17 05/12/17 05/12/17 18:59 06:59 18:59 Intake Total 800 Output Total 0 800 Balance 0 800 -800 Intake: Intake, IV Titration 400 Amount Sodium Chloride 0.9% 1, 400 000 ml @ 80 mls/hr IV . [id number] [facility] Rx#:[id number] Oral 400 Output: Urine 800 Post Void Residual 0 Other: Voiding Method Bedside Commode Bedside Commode Bedside Commode # Voids 6 2 4 - Exam GENERAL EXAM: Alert, active, comfortable in no apparent distress, generalized fatigue, intermittently confused HEAD: Normocephalic. EYES: Normal reaction of pupils, equal size. NOSE: Clear with pink turbinates. THROAT: No erythema or exudates. NECK: No masses, no JVD. CHEST: No chest wall deformity. LUNGS: Equal air entry with no crackles, wheeze, rhonchi or dullness. CVS: S1 and S2 normal with no audible mumurs, regular rhythm. ABDOMEN: No hepatosplenomegaly, normal bowel sounds, no guarding or rigidity. EXTREMITIES: No edema noted, pedal pulses palpable. CENTRAL NERVOUS SYSTEM: No focal deficits, tone is normal in all 4 extremities. - Labs CBC & Chem 7: 05/12/17 11:11 05/12/17 11:11 Labs: Abnormal Lab Results - Last 24 Hours (Table) 0305/11/17 05/11/17 Range/Units 13:55 17:07 20:26 Potassium 5.6 H (3.5-5.1) mmol/L POC Glucose (mg/dL) 411 H 311 H (75-99) mg/dL 05/12/17 Range/Units 07:32 Potassium (3.5-5.1) mmol/L POC Glucose (mg/dL) 356 H (75-99) mg/dL Assessment and Plan Assessment: Assessment Generalized weakness fatigue Acute renal failure likely related to intravascular volume depletion and dehydration as a gentle rehydration renal functions are improving Altered mental status confusion likely related to renal failure, electrolyte imbalance and hyperkalemia Chronic anemia Severe morbid obesity and likely obstructive sleep apnea him a patient needs to be evaluated in that regard outpatient setting Chronic persistent asthma Mood disorder depression Plan Medications have been reviewed and will be continued as ordered. Steroid taper. Continue with pulmonary hygiene, coughing and deep breathing exercises, and supportive care. Supplemental oxygen to maintain oxygen saturations of 92% or better. Continue nebulizer treatments. Patient in sleep study in the outpatient setting. GI and DVT prophylaxis. Neurology and nephrology on consult and appreciate recommendations. EEG currently pending. Continue to monitor renal function. We will continue to monitor labs/results and adjust treatment as necessary. Further recommendations pending. I performed an examination of the patient and discussed their management with the nurse practitioner. I have reviewed the nurse practitioner's note and agree with the documented findings and plan of care.
[2017-05-12 17:04] LABS: Glucose,Whole Blood 157 mg/dL (75-99)
[2017-05-12 20:08] LABS: Glucose,Whole Blood 279 mg/dL (75-99)
[2017-05-12] MEDS: CLOPIDOGREL 75 MG TAB PO SCH (20:36)
[2017-05-12] MEDS: GABAPENTIN 100 MG CAP PO SCH (20:37)
[2017-05-12] MEDS: INSULIN DETEMIR 100 UNIT/ML 10 ML VIAL SQ SCH (20:37)
[2017-05-12] MEDS: OXYBUTYNIN XL 5 MG TAB.ER.24 PO SCH (20:37)
[2017-05-12] MEDS: ATORVASTATIN 40 MG TAB PO SCH (20:37)
[2017-05-13] MEDS: SODIUM CHLORIDE 0.9% 1,000 ML IV SCH ×2 (03:34→10:55)
[2017-05-13 06:48] LABS: Glucose,Whole Blood 133 mg/dL (75-99)
[2017-05-13 07:35] LABS: Basophils % (A) 0 %; Eosinophils # (A) 0.3 k/uL (0-0.7); Eosinophils % (A) 3 %; HCT 27.5 % (34.0-46.0); Lymphocytes # (A) 1.8 k/uL (1.0-4.8); Lymphocytes % (A) 20 %; MCHC 32.8 g/dL (31.0-37.0); MCV 97.5 fL (80.0-100.0); Mean Platelet Volume 7.5; Monocytes # (A) 0.6 k/uL (0-1.0); Monocytes % (A) 7 %; Neutrophils # (A) 6.4 k/uL (1.3-7.7); Neutrophils % (A) 69 %; Platelet Count 219 k/uL (150-450); RBC 2.82 m/uL (3.80-5.40); RDW 12.7 % (11.5-15.5); WBC 9.3 k/uL (3.8-10.6)
[2017-05-13] MEDS: IPRATROPIUM-ALBUTEROL 3 ML NEB INHALATION SCH ×4 (07:51→19:34)
[2017-05-13 07:52] LABS: Albumin 3.1 g/dL (3.5-5.0); Calcium 9.3 mg/dL (8.4-10.2); Magnesium 1.6 mg/dL (1.6-2.3); Potassium 4.7 mmol/L (3.5-5.1); Total Bilirubin 0.2 mg/dL (0.2-1.3); Total Protein 5.1 g/dL (6.3-8.2)
[2017-05-13] MEDS: clonazePAM 1 MG TAB PO SCH ×3 (08:44→22:19)
[2017-05-13] MEDS: FUROSEMIDE 40 MG TAB PO SCH ×2 (08:44→17:07)
[2017-05-13] MEDS: INSULIN ASPART 100 UNIT/ML 1 ML 10 ML VIAL SQ SCH ×7 (08:44→22:21)
[2017-05-13] MEDS: CITALOPRAM HYDROBROMIDE 20 MG TAB PO SCH (08:44)
[2017-05-13] MEDS: FAMOTIDINE 20 MG TAB PO SCH (08:44)
[2017-05-13] MEDS: methylPREDNISolone SOD SUCCI 40 MG/ML 1 ML VIAL IV SCH ×2 (08:45→22:21)
[2017-05-13] MEDS: traMADol 50 MG TAB PO SCH ×2 (08:50→22:19)
[2017-05-13] MEDS: FERROUS SULFATE 325 MG TAB PO SCH (11:18)
--- NOTE | 2017-05-13 11:42 | EEG ---
ELECTROENCEPHALOGRAM REPORT DATE OF EE05/12/2017 ELECTROENCEPHALOGRAPHIC EXAMINATION REPORT: INDICATION FOR EXAMINATION: This patient is a 72-year-old female being evaluated for altered mental status and confusion. Patient with recent episode of fall. AGE: 72. EEG FINDINGS: A routine 21-channel awake digital EEG recording was accomplished utilizing the 10-20 international system with bipolar and referential montages. The background activity in the most alert resting state consists of a low to medium amplitude, fairly well- developed well-sustained 6 Hz activity over the posterior head region. This posterior rhythm attenuates to eye opening. There is a small amount of low amplitude 18-20 Hz beta activity seen maximally over the anterior head regions. Muscle and movement artifact was observed on a few occasions during the tracing. Hyperventilation was not performed. Photic stimulation at flash frequencies of 2-30 Hz produced a minimal occipital driving response. No epileptiform discharges were seen. IMPRESSION: This EEG is moderately abnormal in a diffuse fashion due to slowing of the EEG background. The EEG failed to reveal any focal, lateralized, or epileptiform abnormalities. Clinical correlation is recommended. MMODL / IJN: [id number] /
[2017-05-13 11:44] LABS: Glucose,Whole Blood 286 mg/dL (75-99)
--- NOTE | 2017-05-13 11:49 | P.PN ---
Subjective Progress Note Date: 05/13/17 Seen and examined for the follow-up of acute kidney injury. Doing better lying comfortable in the bed. IV fluids stopped tolerating oral diet. Objective - Vital Signs Vital signs: Vital Signs Temp 97.8 F 05/13/17 07:00 Pulse 68 05/13/17 11:14 Resp 18 05/13/17 07:00 BP 171/69 05/13/17 07:00 Pulse Ox 94 L 05/13/17 07:00 Intake & Output 05/12/17 05/13/17 05/13/17 18:59 06:59 18:59 Intake Total 240 640 Output Total 1300 500 Balance -1060 140 Weight 98.43 kg Intake: IV 640 Sodium Chloride 0.9% 1, 640 000 ml @ 80 mls/hr IV . [id number] [facility] Rx#:[id number] Oral 240 Output: Urine 1300 500 Other: Voiding Method Bedside Commode Bedside Commode Bedside Commode # Voids 4 4 - Exam No acute distress S1 and S2 heard No edema - Labs CBC & Chem 7: 05/13/17 06:56 05/13/17 06:56 Labs: Abnormal Lab Results - Last 24 Hours (Table) 05/12/17 05/12/17 05/12/17 Range/Units 11:11 11:11 12:00 RBC 3.24 L (3.80-5.40) m/uL Hgb 9.9 L (11.4-16.0) gm/dL Hct 31.2 L (34.0-46.0) % Neutrophils # 8.0 H (1.3-7.7) k/uL Lymphocytes # 0.7 L (1.0-4.8) k/uL Carbon Dioxide 33 H (22-30) mmol/L BUN 44 H (7-17) mg/dL Creatinine 1.15 H (0.52-1.04) mg/dL Glucose 302 H (74-99) mg/dL POC Glucose (mg/dL) 314 H (75-99) mg/dL AST 12 L (14-36) U/L Total Protein 5.7 L (6.3-8.2) g/dL Albumin (3.5-5.0) g/dL 05/12/17 05/12/17 05/13/17 Range/Units 17:02 19:58 06:45 RBC (3.80-5.40) m/uL Hgb (11.4-16.0) gm/dL Hct (34.0-46.0) % Neutrophils # (1.3-7.7) k/uL Lymphocytes # (1.0-4.8) k/uL Carbon Dioxide (22-30) mmol/L BUN (7-17) mg/dL Creatinine (0.52-1.04) mg/dL Glucose (74-99) mg/dL POC Glucose (mg/dL) 157 H 279 H 133 H (75-99) mg/dL AST (14-36) U/L Total Protein (6.3-8.2) g/dL Albumin (3.5-5.0) g/dL 05/13/17 05/13/17 05/13/17 Range/Units 06:56 06:56 11:42 RBC 2.82 L (3.80-5.40) m/uL Hgb 9.0 L (11.4-16.0) gm/dL Hct 27.5 L (34.0-46.0) % Neutrophils # (1.3-7.7) k/uL Lymphocytes # (1.0-4.8) k/uL Carbon Dioxide 37 H (22-30) mmol/L BUN 43 H (7-17) mg/dL Creatinine 1.06 H (0.52-1.04) mg/dL Glucose 122 H (74-99) mg/dL POC Glucose (mg/dL) 286 H (75-99) mg/dL AST 9 L (14-36) U/L Total Protein 5.1 L (6.3-8.2) g/dL Albumin 3.1 L (3.5-5.0) g/dL Assessment and Plan Assessment: Impression: #1 acute kidney injury secondary to prerenal process creatinine back to baseline #2 mild hyperkalemia resolved #3 hypertension uncontrolled. #4 diabetes with hyperglycemia Recommendations: #1 renal function back to baseline. #2 okay to start back on LINDSAY inhibitor's for good blood pressure control. #3 stable from nephrology for discharge to be followed up in the office #4 hold Lasix as she is still volume depleted. Can be restarted as outpatient in the office.
[2017-05-13 17:11] LABS: Glucose,Whole Blood 354 mg/dL (75-99)
--- NOTE | 2017-05-13 17:22 | PN ---
PROGRESS NOTE DATE OF SERVICE: 05/13/2017 This patient continues to have some shortness of breath. On physical examination, her blood pressure is 175/72, respiratory rate of 18, pulse rate 56, temperature 98.1. Oxygen saturation on 2 L by nasal cannula is 100%. HEENT is unremarkable. Chest reveals decreased breath sounds in the bases. Cardiovascular system is in S1, S2. Abdomen is soft. There is 1+ to 2+ pedal edema. Sodium is 144, potassium 4.7, chloride 101, bicarb 37, BUN 43, creatinine 1.06. White count of 9.3, hemoglobin of 9. IMPRESSION AT THIS TIME: 1. Acute on chronic renal failure in part due to prerenal azotemia. 2. Metabolic encephalopathy. 3. Morbid obesity with possible obstructive sleep apnea. 4. Medical debility. At this point in time, would continue gentle hydration. Follow nephrology recommendations. Control her blood pressure. Increase her activity level. She may be a candidate for inpatient rehab, and we will have Dr. Roque further evaluate this patient. MMDAVIDEL / LILLIANN: [id number] /
[2017-05-13 20:40] LABS: Glucose,Whole Blood 371 mg/dL (75-99)
[2017-05-13] MEDS: GABAPENTIN 100 MG CAP PO SCH (22:19)
[2017-05-13] MEDS: CLOPIDOGREL 75 MG TAB PO SCH (22:20)
[2017-05-13] MEDS: ATORVASTATIN 40 MG TAB PO SCH (22:20)
[2017-05-13] MEDS: OXYBUTYNIN XL 5 MG TAB.ER.24 PO SCH (22:21)
[2017-05-13] MEDS: INSULIN DETEMIR 100 UNIT/ML 10 ML VIAL SQ SCH (22:49)
[2017-05-13] MEDS ORDERED: LORazepam 2 MG/ML INJ IV PRN (23:42)
[2017-05-14] MEDS: SODIUM CHLORIDE 0.9% 1,000 ML IV SCH ×3 (05:50→21:09)
[2017-05-14 07:10] LABS: Glucose,Whole Blood 198 mg/dL (75-99)
[2017-05-14 08:37] LABS: Basophils % (A) 0 %; Eosinophils # (A) 0.1 k/uL (0-0.7); Eosinophils % (A) 1 %; HCT 26.7 % (34.0-46.0); HGB 8.4 gm/dL (11.4-16.0); Lymphocytes # (A) 1.5 k/uL (1.0-4.8); Lymphocytes % (A) 14 %; MCH 30.2 pg (25.0-35.0); MCHC 31.3 g/dL (31.0-37.0); MCV 96.5 fL (80.0-100.0); Mean Platelet Volume 7.6; Monocytes # (A) 0.7 k/uL (0-1.0); Monocytes % (A) 7 %; Neutrophils % (A) 77 %; Platelet Count 201 k/uL (150-450); RBC 2.77 m/uL (3.80-5.40); RDW 12.6 % (11.5-15.5); WBC 10.4 k/uL (3.8-10.6)
[2017-05-14] MEDS: IPRATROPIUM-ALBUTEROL 3 ML NEB INHALATION SCH ×4 (08:38→21:01)
[2017-05-14 08:42] LABS: Potassium 4.2 mmol/L (3.5-5.1); Total Bilirubin 0.2 mg/dL (0.2-1.3); Total Protein 4.9 g/dL (6.3-8.2)
[2017-05-14] MEDS: INSULIN ASPART 100 UNIT/ML 1 ML 10 ML VIAL SQ SCH ×7 (08:56→21:09)
[2017-05-14] MEDS: CITALOPRAM HYDROBROMIDE 20 MG TAB PO SCH (08:57)
[2017-05-14] MEDS: FUROSEMIDE 40 MG TAB PO SCH ×2 (08:57→15:34)
[2017-05-14] MEDS: clonazePAM 1 MG TAB PO SCH ×3 (08:57→21:08)
[2017-05-14] MEDS: methylPREDNISolone SOD SUCCI 40 MG/ML 1 ML VIAL IV SCH ×2 (08:57→21:09)
[2017-05-14] MEDS: FAMOTIDINE 20 MG TAB PO SCH (08:57)
[2017-05-14] MEDS: traMADol 50 MG TAB PO SCH ×2 (09:03→21:08)
[2017-05-14 11:18] LABS: Glucose,Whole Blood 275 mg/dL (75-99)
[2017-05-14] MEDS: FERROUS SULFATE 325 MG TAB PO SCH (11:58)
[2017-05-14] MEDS: ACETAMINOPHEN TAB 325 MG TAB PO PRN (15:30)
[2017-05-14 17:30] LABS: Glucose,Whole Blood 312 mg/dL (75-99)
[2017-05-14 20:35] LABS: Glucose,Whole Blood 358 mg/dL (75-99)
[2017-05-14] MEDS: CLOPIDOGREL 75 MG TAB PO SCH (21:08)
[2017-05-14] MEDS: OXYBUTYNIN XL 5 MG TAB.ER.24 PO SCH (21:08)
[2017-05-14] MEDS: ATORVASTATIN 40 MG TAB PO SCH (21:08)
[2017-05-14] MEDS: GABAPENTIN 100 MG CAP PO SCH (21:08)
[2017-05-14] MEDS: INSULIN DETEMIR 100 UNIT/ML 10 ML VIAL SQ SCH (21:10)
--- NOTE | 2017-05-14 22:02 | PN ---
PROGRESS NOTE DATE OF SERVICE: 05/14/17 She was seen again on May 14, 2017. She has been hemodynamically stable. She continues to remain weak at this time. PHYSICAL EXAMINATION: Blood pressure is 158/67, respiratory rate of 18, pulse of 66, temperature 98.3. O2 saturation on room air is 98%. HEENT: Unremarkable. CHEST: Clear. Cardiovascular system reveals an S1, S2. ABDOMEN: Soft. There is no pedal edema. Labs were reviewed. IMPRESSION: At this time. 1. Acute on chronic renal failure. 2. Metabolic encephalopathy. 3. Morbid obesity with possible obstructive sleep apnea. 4. Medical debility. Continue gentle hydration. Increase her activity level. Discharge planning is possibly for rehab. MMODL / IJN: [id number] /
[2017-05-15] MEDS: ACETAMINOPHEN TAB 325 MG TAB PO PRN ×2 (00:51→21:22)
[2017-05-15 07:49] LABS: Glucose,Whole Blood 280 mg/dL (75-99)
[2017-05-15] MEDS: IPRATROPIUM-ALBUTEROL 3 ML NEB INHALATION SCH ×4 (07:54→20:02)
[2017-05-15] MEDS: methylPREDNISolone SOD SUCCI 40 MG/ML 1 ML VIAL IV SCH ×2 (08:00→20:33)
[2017-05-15] MEDS: FUROSEMIDE 40 MG TAB PO SCH ×2 (08:01→16:15)
[2017-05-15] MEDS: FAMOTIDINE 20 MG TAB PO SCH (08:01)
[2017-05-15] MEDS: traMADol 50 MG TAB PO SCH ×2 (08:01→20:33)
[2017-05-15] MEDS: clonazePAM 1 MG TAB PO SCH ×3 (08:01→21:22)
[2017-05-15] MEDS: CITALOPRAM HYDROBROMIDE 20 MG TAB PO SCH (08:01)
[2017-05-15] MEDS: INSULIN ASPART 100 UNIT/ML 1 ML 10 ML VIAL SQ SCH ×7 (08:01→20:33)
[2017-05-15 08:32] LABS: Albumin 3.2 g/dL (3.5-5.0); Potassium 4.7 mmol/L (3.5-5.1); Total Bilirubin 0.3 mg/dL (0.2-1.3); Total Protein 5.2 g/dL (6.3-8.2)
[2017-05-15 08:37] LABS: Basophils % (A) 0 %; Eosinophils % (A) 0 %; HGB 9.3 gm/dL (11.4-16.0); Lymphocytes # (A) 0.8 k/uL (1.0-4.8); Lymphocytes % (A) 8 %; MCH 30.4 pg (25.0-35.0); MCHC 32.2 g/dL (31.0-37.0); MCV 94.6 fL (80.0-100.0); Mean Platelet Volume 7.2; Monocytes # (A) 0.3 k/uL (0-1.0); Monocytes % (A) 3 %; Neutrophils # (A) 8.7 k/uL (1.3-7.7); Neutrophils % (A) 89 %; Platelet Count 216 k/uL (150-450); RBC 3.07 m/uL (3.80-5.40); RDW 12.5 % (11.5-15.5); WBC 9.8 k/uL (3.8-10.6)
[2017-05-15 11:44] LABS: Glucose,Whole Blood 314 mg/dL (75-99)
[2017-05-15] MEDS: FERROUS SULFATE 325 MG TAB PO SCH (12:33)
[2017-05-15 17:26] LABS: Glucose,Whole Blood 305 mg/dL (75-99)
[2017-05-15 20:30] LABS: Glucose,Whole Blood 347 mg/dL (75-99)
[2017-05-15] MEDS: ATORVASTATIN 40 MG TAB PO SCH (20:32)
[2017-05-15] MEDS: OXYBUTYNIN XL 5 MG TAB.ER.24 PO SCH (20:33)
[2017-05-15] MEDS: INSULIN DETEMIR 100 UNIT/ML 10 ML VIAL SQ SCH (20:33)
[2017-05-15] MEDS: CLOPIDOGREL 75 MG TAB PO SCH (20:33)
[2017-05-15] MEDS: GABAPENTIN 100 MG CAP PO SCH (20:33)
[2017-05-15] MEDS: SODIUM CHLORIDE 0.9% 1,000 ML IV SCH (23:09)
--- NOTE | 2017-05-15 23:54 | PN ---
PROGRESS NOTE She is very anxious and nervous. She states she does not want to go to rehab. She wants to go to [facility] at the [facility]. Hemoglobin is 9.3, sodium 139, potassium 4.7. She is sitting up in bed. She appears comfortable. Her sugars in the mid 2 to 300s. Albumin is low 3.2, creatinine 0.97. ENDOCRINE: BMI is over 51. GI soft. CARDIOVASCULAR: S1, S2. Lungs clear. Psych: She appears very anxious and nervous and crying. ASSESSMENT: 1. Acute on chronic renal failure. 2. Metabolic encephalopathy. 3. Morbid obesity. 4. Obstructive sleep apnea. 5. Medical debility. Possible discharge her home soon tomorrow to be followed up as an outpatient. MMODL / LILLIANN: [id number] /
[2017-05-16] MEDS: SODIUM CHLORIDE 0.9% 1,000 ML IV SCH ×3 (00:24→23:01)
[2017-05-16 07:05] LABS: Glucose,Whole Blood 159 mg/dL (75-99)
[2017-05-16] MEDS: clonazePAM 1 MG TAB PO SCH ×3 (08:17→23:00)
[2017-05-16] MEDS: INSULIN ASPART 100 UNIT/ML 1 ML 10 ML VIAL SQ SCH ×7 (08:17→21:09)
[2017-05-16] MEDS: traMADol 50 MG TAB PO SCH ×2 (08:17→21:07)
[2017-05-16] MEDS: CITALOPRAM HYDROBROMIDE 20 MG TAB PO SCH (08:18)
[2017-05-16] MEDS: methylPREDNISolone SOD SUCCI 40 MG/ML 1 ML VIAL IV SCH ×2 (08:18→21:08)
[2017-05-16] MEDS: FUROSEMIDE 40 MG TAB PO SCH ×2 (08:18→16:08)
[2017-05-16] MEDS: FAMOTIDINE 20 MG TAB PO SCH (08:18)
[2017-05-16 08:36] LABS: Basophils % (A) 0 %; Eosinophils # (A) 0.1 k/uL (0-0.7); Eosinophils % (A) 1 %; HCT 29.3 % (34.0-46.0); HGB 9.4 gm/dL (11.4-16.0); Lymphocytes # (A) 1.6 k/uL (1.0-4.8); Lymphocytes % (A) 15 %; MCH 30.7 pg (25.0-35.0); MCV 96.1 fL (80.0-100.0); Mean Platelet Volume 7.5; Monocytes # (A) 0.7 k/uL (0-1.0); Monocytes % (A) 6 %; Neutrophils # (A) 8.3 k/uL (1.3-7.7); Neutrophils % (A) 77 %; Platelet Count 201 k/uL (150-450); RBC 3.05 m/uL (3.80-5.40); RDW 12.8 % (11.5-15.5); WBC 10.9 k/uL (3.8-10.6)
[2017-05-16] MEDS: IPRATROPIUM-ALBUTEROL 3 ML NEB INHALATION SCH ×4 (08:59→19:25)
[2017-05-16 09:02] LABS: Albumin 3.4 g/dL (3.5-5.0); Calcium 9.3 mg/dL (8.4-10.2); Potassium 4.2 mmol/L (3.5-5.1); Total Bilirubin 0.3 mg/dL (0.2-1.3); Total Protein 5.4 g/dL (6.3-8.2)
[2017-05-16 11:40] LABS: Glucose,Whole Blood 222 mg/dL (75-99)
[2017-05-16] MEDS: FERROUS SULFATE 325 MG TAB PO SCH (12:54)
[2017-05-16 16:32] LABS: Glucose,Whole Blood 323 mg/dL (75-99)
[2017-05-16 20:23] LABS: Glucose,Whole Blood 348 mg/dL (75-99)
[2017-05-16] MEDS: ACETAMINOPHEN TAB 325 MG TAB PO PRN (21:08)
[2017-05-16] MEDS: ATORVASTATIN 40 MG TAB PO SCH (21:08)
[2017-05-16] MEDS: CLOPIDOGREL 75 MG TAB PO SCH (21:08)
[2017-05-16] MEDS: GABAPENTIN 100 MG CAP PO SCH (21:08)
[2017-05-16] MEDS: OXYBUTYNIN XL 5 MG TAB.ER.24 PO SCH (21:08)
[2017-05-16] MEDS: INSULIN DETEMIR 100 UNIT/ML 10 ML VIAL SQ SCH (21:12)
--- NOTE | 2017-05-16 23:10 | PN ---
PROGRESS NOTE SUBJECTIVE: [id number] white female admitted with memory loss, anxiety, acute on chronic renal failure, generalized weakness, unable to ambulate. She is requesting increase in anxiety medications. She has agreed to go to the rehab center. CARDIOVASCULAR: S1, S2. PSYCH: Anxious and nervous. ENDOCRINE: BMI is over 50. HEMATOLOGY: Negative Homans. Stasis changes to the lower legs. GI is soft. ASSESSMENT: 1. Generalized anxiety. 2. Generalized weakness. 3. Memory loss. 4. Acute on chronic renal failure. Continue with current treatment. [facility] Increase anxiety medication. MMODL / IJN: [id number] /
[2017-05-17] MEDS: DIVALPROEX 250 MG TABLET.DR PO SCH ×2 (00:47→07:28)
[2017-05-17 07:18] LABS: Glucose,Whole Blood 187 mg/dL (75-99)
[2017-05-17] MEDS: FAMOTIDINE 20 MG TAB PO SCH (07:28)
[2017-05-17] MEDS: FUROSEMIDE 40 MG TAB PO SCH ×2 (07:28→16:12)
[2017-05-17] MEDS: traMADol 50 MG TAB PO SCH (07:31)
[2017-05-17] MEDS: CITALOPRAM HYDROBROMIDE 20 MG TAB PO SCH (07:32)
[2017-05-17] MEDS: clonazePAM 1 MG TAB PO SCH ×2 (07:32→16:12)
[2017-05-17] MEDS: INSULIN ASPART 100 UNIT/ML 1 ML 10 ML VIAL SQ SCH ×4 (08:11→12:55)
[2017-05-17 08:15] VITALS: RESP 18
[2017-05-17] MEDS: IPRATROPIUM-ALBUTEROL 3 ML NEB INHALATION SCH ×2 (08:38→12:37)
[2017-05-17] MEDS ORDERED: predniSONE 20 MG TAB PO SCH (09:00)
--- NOTE | 2017-05-17 10:08 | CT ---
EXAMINATION TYPE: CT lumbar spine wo con DATE OF EXAM: 05/17/2017 COMPARISON: 10/05/2015 HISTORY: Lumbar DDD CT DLP: 1857 mGycm CONTRAST: None TECHNIQUE: CT of the lumbar spine is performed on a spiral scan at 3 mm thick sections. Reconstructed images are performed in the coronal and sagittal planes. FINDINGS: There is a scoliosis present with convexity to the right. Degenerative disc changes with lo ss of disc height and vacuum disc phenomenon is present L3-4 L4-5 and L5-S1. A grade 1 spondylolisthe sis of L4 anterior and L5 is present. Some endplate spurring may be present L2-3. T12-L1: No focal disc herniation or significant disc bulge is evident. No spinal canal stenosis or neural foraminal stenosis is present. L1-L2: Mild disc bulge has anterior thecal sac contact. No AP spinal canal stenosis or neural foramin al stenosis is present. L2-L3: Broad-based disc bulge has mild anterior thecal sac impression. No AP spinal canal stenosis is present. Neural foramen are patent. L3-L4: Mild broad-based disc bulge is mild anterior thecal sac flattening. Some left foraminal stenos is is not excluded. Right foramen is patent.. Facet hypertrophy is some posterior lateral thecal sac compression. L4-L5: Disc uncovering is present. This has significant anterior epidural space involvement. There is moderate anterior thecal sac compression.. Facet hypertrophy is present. Ligamentum flavum laxity is present. This has some posterior lateral thecal sac compression. There is in conjunction with the di sc uncovering a spinal canal stenosis of 0.9 cm in AP dimension with some lateral canal narrowing is well. Severe right and moderate left foraminal stenosis is present. L5-S1: No focal disc herniation or significant disc bulge is evident. No spinal canal stenosis or n eural foraminal stenosis is present. Facet hypertrophy is present. There may be a spondylolysis of S1 . IMPRESSION: Grade 1 spondylolisthesis of L5 for anterior on L5. 2. Disc uncovering L4-5 and facet hypertrophy with ligamentum flavum laxity contributing to spinal ca nal stenosis at L4-5. 3. Degenerative disc changes L3-4 through L5-S1. 4. Possible spondylolysis of S1. 5. Disc bulge is also present to mild degree at L1-2 and L2-3 as well as some at L3-4.
--- NOTE | 2017-05-17 11:02 | P.CON ---
Consult Note - . Consult date: 05/17/17 Assessment/Plan:: 72-year-old female admitted for acute renal failure with altered mental status. Pain service consulted for evaluation for possible lumbar epidural steroid injection. Patient is currently on Plavix for cardiac stents, last taken last night Patient previously had fentanyl patch but oversedation was noted and this was stopped. Patient is currently receiving tramadol in the hospital and feels that this is helping her substantially with the pain. She is able to participate in physical therapy and has been mobilizing her legs. Given patient's anticoagulation status, LESI would be contraindicated until patient is off Plavix for seven days. Given that patient is doing well with medications and physical therapy, no escalation in pain medications is needed at this point. Please call back with any further questions.
[2017-05-17 11:52] LABS: Glucose,Whole Blood 241 mg/dL (75-99)
[2017-05-17] MEDS: SODIUM CHLORIDE 0.9% 1,000 ML IV SCH (11:57)
[2017-05-17] MEDS: FERROUS SULFATE 325 MG TAB PO SCH (12:54)
--- NOTE | 2017-05-17 15:35 | DS ---
DISCHARGE SUMMARY DISCHARGE MEDICATIONS: 1. Tylenol 650 mg q.6 hours p.r.n. for pain. 2. Depakote 250 mg p.o. b.i.d. 3. Pepcid 20 mg daily. 4. Lasix 40 mg b.i.d. 5. 5 units plus meal, plus scale q.i.d. 6. Levemir 25 units daily. 7. DuoNeb updraft q.i.d.. 8. Prednisone 40 mg daily for 3 days, 20 mg daily for 3 days, 10 mg daily for 3 days, then 5 mg q. day forever. 9. Klonopin 1 mg t.i.d. 10.Celexa 40 mg daily. 11.Iron 325 daily. 12.Tramadol 50 mg b.i.d. 13.Zestril 20 mg daily. 14.Plavix 75 mg daily. 15.Nitro sublingual p.r.n. 16.Lipitor 40 q.h.s. 17.ProAir HFA 2 puffs q.4 hours p.r.n. CONDITION: Stable. PROGNOSIS: Guarded. Ambulate as tolerated. Follow up with Dr. Yi at the rehab facility. She will also continue on Plavix 75 mg daily, Zestril 20 mg daily, nitro sublingual p.r.n., Celexa 40 mg daily, Klonopin 1 mg t.i.d. She was admitted to hospital with some mental confusion, acute on chronic renal insufficiency. She had a lumbar CAT scan of her spine that showed degenerative disc disease. She is requesting epidural, which will also be done as an outpatient because she is on Plavix, she will have to be cleared by Cardiology. Her renal insufficiency was improved. Her dehydration was improved. Medications were adjusted. Neurology consult was done as well as a brain CAT scan. Neurology diagnosis, acute on chronic renal failure. Altered mental status secondary to encephalopathy, insulin-dependent diabetes mellitus, morbid obesity, hypertension, acute on chronic anemia, mild hyperkalemia, acute kidney injury. Continue current treatment. Follow up with Dr. Yi in the retirement. She will need PT, OT due to generalized weakness, possible lumbar epidural be done as an outpatient. This patient continues to have difficulty with ambulation and strength. She will need to go to rehab facility at this time. Medication was adjusted to decrease nephrotoxic agents. Please see further orders. MMODL / IJN: [id number] /
[2017-05-17 19:32] VITALS: BP 164/74; PULSE 79; TEMP 98.2
--- NOTE | 2017-05-19 08:56 | CDI ---
Last Revision, February 2017 Documentation Clarification Form Date: 05/19/17 From: Shu Montoya Phone: If you have a question regarding this query, please contact Shea Li at [phone] between 8am and 5pm. Admit Date: 05/09/2017 2:40:00 PM Patient Name: Carla Garvin Visit Number: [id number] Discharge Date: ATTENTION: The Clinical Documentation Specialists (CDI) and [facility] Coding Staff appreciate your assistance in clarifying documentation. Please respond to the clarification below the line at the bottom and electronically sign. The CDI & [facility] Coding staff will review the response and follow-up if needed. Please note: Queries are made part of the Legal Health Record. If you have any questions, please contact the author of this message via ITS. Dr. Tyesha Elam Chronic renal failure was documented in the ED note, H&P, discharge summary and in Dr. Fournier's and Dr. Galicia's progress notes. History/Risk Factors: Patient has a history of diabetes, hypertension and obesity. Patients baseline BUN/CR/GFR: Creatinine/GFR at .97/58 on 05/15 [place] Cr/GFR : 1.96/25 on admit, 1.10/50 on day of discharge. Treatment: IVF: IV sodium chloride @80 mls/hr In order to capture the severity of condition, please clarify if the condition signifies: Chronic renal failure/Chronic Kidney disease (CKD) please stage if known CKD Stage 1 GFR >90 CKD Stage 2 GFR 60-89 CKD Stage 3 GFR 30-59 CKD Stage 4 GFR 15-29 CKD Stage 5 GFR <15 ESRD Other, please specify Unable to determine MTDD
== END 2017-05-17 16:41 | DRG 682 ==
LOC: EC 10:51 → 5MS5E 14:40
PROVIDERS: ADMIT Family Medicine; ATTEND Family Medicine
DX: N17.9 Acute kidney failure, unspecified (principal); G93.41 Metabolic encephalopathy; E11.22 Type 2 diabetes mellitus with diabetic chronic kidney disease; E11.65 Type 2 diabetes mellitus with hyperglycemia; E66.01 Morbid (severe) obesity due to excess calories; M41.9 Scoliosis, unspecified; E86.0 Dehydration; E87.5 Hyperkalemia; D64.9 Anemia, unspecified; I13.10 Hypertensive heart and chronic kidney disease without heart failure, with stage 1 through stage 4 chronic kidney disease, or unspecified chronic kidney disease; E03.9 Hypothyroidism, unspecified; E78.5 Hyperlipidemia, unspecified; F32.9 Major depressive disorder, single episode, unspecified; F41.1 Generalized anxiety disorder; N18.9 Chronic kidney disease, unspecified; G47.33 Obstructive sleep apnea (adult) (pediatric); I25.10 Atherosclerotic heart disease of native coronary artery without angina pectoris; J45.50 Severe persistent asthma, uncomplicated; K21.9 Gastro-esophageal reflux disease without esophagitis; G89.29 Other chronic pain; K44.9 Diaphragmatic hernia without obstruction or gangrene; K64.9 Unspecified hemorrhoids; M19.90 Unspecified osteoarthritis, unspecified site; R32 Unspecified urinary incontinence; M54.2 Cervicalgia; M54.5 Low back pain; R79.89 Other specified abnormal findings of blood chemistry; K58.9 Irritable bowel syndrome, unspecified; Z68.41 Body mass index [BMI] 40.0-44.9, adult; Z79.02 Long term (current) use of antithrombotics/antiplatelets; Z79.4 Long term (current) use of insulin; Z79.899 Other long term (current) drug therapy; Z88.5 Allergy status to narcotic agent; Z88.0 Allergy status to penicillin; Z85.41 Personal history of malignant neoplasm of cervix uteri; Z86.73 Personal history of transient ischemic attack (TIA), and cerebral infarction without residual deficits; Z90.710 Acquired absence of both cervix and uterus; Z95.5 Presence of coronary angioplasty implant and graft; Z90.49 Acquired absence of other specified parts of digestive tract; Z87.01 Personal history of pneumonia (recurrent); Z86.14 Personal history of Methicillin resistant Staphylococcus aureus infection; Z91.040 Latex allergy status; Z88.8 Allergy status to other drugs, medicaments and biological substances; Z91.048 Other nonmedicinal substance allergy status
CPT/HCPCS: 36415; 70450; 71046; 72131; 76770; 80053; 81001; 82550; 82553; 83036; 83540; 83550; 83605; 83735; 83880; 84132; 84484; 85025; 85610; 85730; 87086; 93005; 94640; 94760; 95816; 96360; 96361; 99285

== ENCOUNTER 2017-10-01 08:26 | Emergency (ER) | payer MEDICARE ==
--- NOTE | 2017-10-01 08:48 | ED ---
General Adult HPI - General Chief complaint: Fall Stated complaint: FALL, WEAKNESS Time Seen by Provider: 10/01/17 08:31 Source: patient, EMS, RN notes reviewed, old records reviewed Mode of arrival: EMS Limitations: no limitations - History of Present Illness Initial comments: 72-year-old female presenting status post fall. Patient was getting out of bed , reaching for her walker. Patient states her walker move forward and she was unable to keep up falling forward onto her chest and head. There was no loss consciousness. There was head trauma. Patient is currently on Plavix. She is able to ambulate only with a walker at baseline. She is on home oxygen. She is coming from an assisted living facility. She she is complaining of neck and back pain however this is chronic and preceded her fall. She denies any worsening of these pain complaints. Denies chest pain or abdominal pain. Denies any preceding symptoms prior to the fall. No extremity pain. - Related Data Home Medications Medication Instructions Recorded Confirmed Citalopram Hydrobromide [CeleXA] 40 mg PO DAILY 09/20/14 05/09/17 clonazePAM [KlonoPIN] 1 mg PO TID 09/20/14 05/09/17 fentaNYL 75MCG/HR PATCH [Duragesic 1 patch TRANSDERM Q72H 09/20/14 05/09/17 75MCG/HR] traMADol HCl [Ultram] 50 mg PO BID 10/19/16 05/09/17 Clopidogrel [Plavix] 75 mg PO HS 12/21/16 05/09/17 Lisinopril [Zestril] 20 mg PO DAILY 12/21/16 05/09/17 Atorvastatin [Lipitor] 40 mg PO HS 01/30/17 05/09/17 INSULIN LISPRO (humaLOG) [humaLOG] See Protocol SQ ACHS 01/30/17 05/09/17 Albuterol Sulfate [Proair Hfa] 1 puff INHALATION RT-Q4H PRN 05/09/17 05/09/17 Previous Rx's Medication Instructions Recorded Ferrous Sulfate [Iron (65 MG 325 mg PO DAILY tab 10/08/15 Elemental)] Nitroglycerin Sl Tabs [Nitrostat] 0.4 mg SUBLINGUAL Q5M PRN #30 tab 12/23/16 Acetaminophen Tab [Tylenol] 650 mg PO Q6HR PRN tab 05/17/17 Divalproex [Depakote] 250 mg PO BID tablet. 05/17/17 Famotidine [Pepcid] 20 mg PO DAILY tab 05/17/17 Furosemide [Lasix] 40 mg PO BID@0900,1600 tab 05/17/17 Insulin Aspart [NovoLOG 0 unit SQ ACHS vial 05/17/17 (formulary)] Insulin Aspart [NovoLOG 5 unit SQ AC-TID vial 05/17/17 (formulary)] Insulin Detemir [Levemir] 25 unit SQ HS syr 05/17/17 Ipratropium-Albuterol Nebulize 3 ml INHALATION RT-QID ampul.neb 05/17/17 [Duoneb 0.5 mg-3 mg/3 ml Soln] predniSONE 40 mg PO DAILY tab 05/17/17 Allergies Allergy/AdvReac Type Severity Reaction Status Date / Time adhesive Allergy Rash/Hives, Verified 10/01/17 08:29 W/ TAPES, CAN USE PAPER TAPE codeine Allergy Anaphylaxis Verified 10/01/17 08:29 latex Allergy Rash/Hives Verified 10/01/17 08:29 morphine Allergy Unknown Verified 10/01/17 08:29 Penicillins Allergy Anaphylaxis Verified 10/01/17 08:29 propoxyphene napsylate Allergy Anaphylaxis Verified 10/01/17 08:29 [From Darvocet-N 100] tuberculin, purified protein Allergy Rash/Hives Verified 10/01/17 08:29 deriva [tuberculin,purif.prot.deriv.] Review of Systems ROS Statement: Those systems with pertinent positive or pertinent negative responses have been documented in the HPI. ROS Other: All systems not noted in ROS Statement are negative. 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 History of Any Multi-Drug Resistant Organisms: MRSA Date of last positivie culture/infection: 04/02/11 MDRO Source:: L chest/L lower leg/ankle Past Surgical History: Bladder Surgery, Cholecystectomy, Heart Catheterization, Heart Catheterization With Stent, Hysterectomy Additional Past Surgical History / Comment(s): PCI with a total of 5 stents per pt with last stent placed 06/29/16, partial parathyroidectomy, bilateral cataracts removed, I and D of L chest wall abscess and L ankle wound, bladder surgery with implant of stimulator system 02/2010, EGD/colonoscoy. Past Anesthesia/Blood Transfusion Reactions: No Reported Reaction Additional Past Anesthesia/Blood Transfusion Reaction / Comment(s): Pt states she has received blood in the past without reaction. Date of Last Stent Placement:: 06/29/16 Past Psychological History: Anxiety, Depression Smoking Status: Never smoker Past Alcohol Use History: None Reported Past Drug Use History: None Reported - Past Family History Father Family Medical History: Cancer, Coronary Artery Disease (CAD) Additional Family Medical History / Comment(s): Father had prostate cancer. Mother Family Medical History: Asthma, COPD General Exam Limitations: no limitations General appearance: alert, in no apparent distress, obese Head exam: Present: atraumatic, normocephalic Eye exam: Present: normal appearance, PERRL Neck exam: Present: normal inspection, full ROM. Absent: tenderness, meningismus Respiratory exam: Present: normal lung sounds bilaterally, respiratory distress Cardiovascular Exam: Present: normal rhythm, bradycardia GI/Abdominal exam: Present: soft. Absent: distended, tenderness Extremities exam: Present: normal inspection, full ROM, normal capillary refill. Absent: pedal edema, joint swelling Back exam: Present: normal inspection, full ROM Neurological exam: Present: alert, oriented X3, CN II-XII intact. Absent: motor sensory deficit Psychiatric exam: Present: normal affect, normal mood Skin exam: Present: warm, dry, intact. Absent: cyanosis, diaphoretic Course Vital Signs 10/01/17 10/01/17 08:29 09:49 Temperature 96.9 F L Pulse Rate 83 48 L Respiratory 16 16 Rate Blood Pressure 102/50 107/54 O2 Sat by Pulse 98 100 Oximetry Medical Decision Making - Medical Decision Making 72-year-old female presenting status post mechanical fall with head injury no loss consciousness. Head CT is obtained, negative for intracranial hemorrhage or mass effect. CT cervical spine is negative for fracture subluxation. X- rays of the chest and pelvis are obtained given the patient's age, there is no acute bony abnormality in the pelvis, chest x-ray negative for focal pneumonia or air space disease. Urinalysis is clear. Hemoglobin is 11.1 which is stable for this patient. Creatinine 1.17 which is baseline, and elevated CO2 secondary to chronic CO2 retention which is also at baseline. Patient is reevaluated, stable vital signs. She will be discharged back to her assisted living facility. Return with worsening or changing symptoms. - Lab Data Result diagrams: 10/01/17 08:55 10/01/17 08:55 Lab Results 10/01/17 10/01/17 10/01/17 Range/Units 08:55 08:55 08:55 WBC 11.9 H (3.8-10.6) k/uL RBC 3.38 L (3.80-5.40) m/uL Hgb 11.1 L (11.4-16.0) gm/dL Hct 34.0 (34.0-46.0) % MCV 100.5 H (80.0-100.0) fL MCH 32.8 (25.0-35.0) pg MCHC 32.7 (31.0-37.0) g/dL RDW 12.6 (11.5-15.5) % Plt Count 219 (150-450) k/uL Neutrophils % 76 % Lymphocytes % 14 % Monocytes % 6 % Eosinophils % 2 % Basophils % 1 % Neutrophils # 9.0 H (1.3-7.7) k/uL Lymphocytes # 1.7 (1.0-4.8) k/uL Monocytes # 0.8 (0-1.0) k/uL Eosinophils # 0.3 (0-0.7) k/uL Basophils # 0.1 (0-0.2) k/uL PT 9.7 (9.0-12.0) sec INR 1.0 (<1.2) APTT 19.4 L (22.0-30.0) sec Sodium 137 (137-145) mmol/L Potassium 4.5 (3.5-5.1) mmol/L Chloride 95 L (98-107) mmol/L Carbon Dioxide 38 H (22-30) mmol/L Anion Gap 4 mmol/L BUN 64 H (7-17) mg/dL Creatinine 1.17 H (0.52-1.04) mg/dL Est GFR (CKD-EPI)AfAm 53 (>60 ml/min/1.73 sqM) Est GFR (CKD-EPI)NonAf 46 (>60 ml/min/1.73 sqM) Glucose 94 (74-99) mg/dL Calcium 9.6 (8.4-10.2) mg/dL Total Bilirubin 0.4 (0.2-1.3) mg/dL AST 10 L (14-36) U/L ALT 26 (9-52) U/L Alkaline Phosphatase 30 L (38-126) U/L Total Protein 5.3 L (6.3-8.2) g/dL Albumin 3.4 L (3.5-5.0) g/dL Urine Color Urine Appearance (Clear) Urine pH (5.0-8.0) Ur Specific [place] (1.001-1.035) Urine Protein (Negative) Urine Glucose (UA) (Negative) Urine Ketones (Negative) Urine Blood (Negative) Urine Nitrite (Negative) Urine Bilirubin (Negative) Urine Urobilinogen (<2.0) mg/dL Ur Leukocyte Esterase (Negative) 10/01/17 Range/Units 09:45 WBC (3.8-10.6) k/uL RBC (3.80-5.40) m/uL Hgb (11.4-16.0) gm/dL Hct (34.0-46.0) % MCV (80.0-100.0) fL MCH (25.0-35.0) pg MCHC (31.0-37.0) g/dL RDW (11.5-15.5) % Plt Count (150-450) k/uL Neutrophils % % Lymphocytes % % Monocytes % % Eosinophils % % Basophils % % Neutrophils # (1.3-7.7) k/uL Lymphocytes # (1.0-4.8) k/uL Monocytes # (0-1.0) k/uL Eosinophils # (0-0.7) k/uL Basophils # (0-0.2) k/uL PT (9.0-12.0) sec INR (<1.2) APTT (22.0-30.0) sec Sodium (137-145) mmol/L Potassium (3.5-5.1) mmol/L Chloride (98-107) mmol/L Carbon Dioxide (22-30) mmol/L Anion Gap mmol/L BUN (7-17) mg/dL Creatinine (0.52-1.04) mg/dL Est GFR (CKD-EPI)AfAm (>60 ml/min/1.73 sqM) Est GFR (CKD-EPI)NonAf (>60 ml/min/1.73 sqM) Glucose (74-99) mg/dL Calcium (8.4-10.2) mg/dL Total Bilirubin (0.2-1.3) mg/dL AST (14-36) U/L ALT (9-52) U/L Alkaline Phosphatase (38-126) U/L Total Protein (6.3-8.2) g/dL Albumin (3.5-5.0) g/dL Urine Color Light Yellow Urine Appearance Clear (Clear) Urine pH 5.0 (5.0-8.0) Ur Specific [place] 1.006 (1.001-1.035) Urine Protein Negative (Negative) Urine Glucose (UA) Negative (Negative) Urine Ketones Negative (Negative) Urine Blood Negative (Negative) Urine Nitrite Negative (Negative) Urine Bilirubin Negative (Negative) Urine Urobilinogen <2.0 (<2.0) mg/dL Ur Leukocyte Esterase Negative (Negative) Disposition Clinical Impression: Fall, Closed head injury Disposition: HOME SELF-CARE Condition: Fair Instructions: Fall Prevention for Older Adults (ED), Concussion (ED) Is patient prescribed a controlled substance at d/c from ED?: No Referrals: Chris Yi MD [Primary Care Provider] - 1-2 days Time of Disposition: 10:28
[2017-10-01 08:49] VITALS: TEMP 96.9
[2017-10-01 09:05] LABS: Basophils # (A) 0.1 k/uL (0-0.2); Basophils % (A) 1 %; Eosinophils # (A) 0.3 k/uL (0-0.7); Eosinophils % (A) 2 %; HGB 11.1 gm/dL (11.4-16.0); Lymphocytes # (A) 1.7 k/uL (1.0-4.8); Lymphocytes % (A) 14 %; MCH 32.8 pg (25.0-35.0); MCHC 32.7 g/dL (31.0-37.0); MCV 100.5 fL (80.0-100.0); Monocytes # (A) 0.8 k/uL (0-1.0); Monocytes % (A) 6 %; Neutrophils % (A) 76 %; Platelet Count 219 k/uL (150-450); RBC 3.38 m/uL (3.80-5.40); RDW 12.6 % (11.5-15.5); WBC 11.9 k/uL (3.8-10.6)
[2017-10-01 09:18] LABS: Albumin 3.4 g/dL (3.5-5.0); Calcium 9.6 mg/dL (8.4-10.2); Potassium 4.5 mmol/L (3.5-5.1); Total Bilirubin 0.4 mg/dL (0.2-1.3); Total Protein 5.3 g/dL (6.3-8.2)
[2017-10-01 09:21] LABS: Prothrombin Time 9.7 sec (9.0-12.0)
[2017-10-01 09:33] LABS: Partial Thromboplastin Time 19.4 sec (22.0-30.0)
--- NOTE | 2017-10-01 09:38 | XR ---
EXAMINATION TYPE: XR pelvis AP view , ONE VIEW DATE OF EXAM ORDERED: 10/01/2017 HISTORY: Pain. COMPARISON: None. FINDINGS: The study is limited by the patient's tremendous size. There is a metal stimulator project ing over the sacrum. No fracture is seen. There are degenerative changes in the lumbar spine. IMPRESSION: LIMITED STUDY DEMONSTRATING NO ACUTE OSSEOUS LESION.
--- NOTE | 2017-10-01 09:39 | XR ---
EXAMINATION TYPE: XR chest 2V DATE OF EXAM: 10/01/2017 HISTORY: Pain. REFERENCE: NONE. FINDINGS: The heart is mildly enlarged. The lungs are clear. Pleural spaces are clear. IMPRESSION: MILD CARDIOMEGALY.
--- NOTE | 2017-10-01 09:48 | CT ---
EXAMINATION TYPE: CT brain letitia brown DATE OF EXAM: 10/01/2017 COMPARISON: Previous CT scan of the brain dated 05/09/2017. HISTORY: Fall CT DLP: 1882.7 mGycm Automated exposure control for dose reduction was used. TECHNIQUE: CT scan of the head and cervical spine are performed without contrast. FINDINGS: BRAIN: There are generalized changes of sulcal prominence and ventriculomegaly, compatible with atrop hic change. There is diffuse periventricular white matter lucency, compatible with chronic white peggy er ischemic change. There is no acute focal lesion, mass effect or midline shift identified. I do not see evidence of intracranial blood. Visualized portions of the paranasal sinuses and mastoids are clear. The bony calvarium is intact. IMPRESSION: 1. NO ACUTE INTRACRANIAL ABNORMALITY. 2. DEGENERATIVE CHANGE. CERVICAL SPINE: There are mild emphysematous changes in the visualized portions of the lungs. There is fullness on the left in the oropharynx. There are pain stimulator is in place. Prevertebral soft tissues are otherwise unremarkable. There is straightening of the normal cervical lordosis. Alignment is unremarkable. Atlantoaxial relat ionships are normal. There is diffuse degenerative disc disease and hypertrophic spondylosis with relative sparing of the C2-3 and C3-4 articulations. There is diffuse uncovertebral joint disease. There is facet arthropathy at the C2-3 level, C3-4 level and C4-5 levels. No discal protrusion is seen. No fracture is seen. IMPRESSION: 1. NO ACUTE OSSEOUS LESION. 2. DEGENERATIVE CHANGE.
[2017-10-01 09:58] LABS: Appearance,Urine Clear (Clear); Bilirubin,Urine Negative (Negative); Blood,Urine Negative (Negative); Color,Urine Light Yellow; Glucose,Urine (UA) Negative (Negative); Ketones,Urine Negative (Negative); Leukocyte Esterase,Urine Negative (Negative); Nitrite,Urine Negative (Negative); Protein,Urine Negative (Negative); Specific Gravity,Urine 1.006 (1.001-1.035); Urobilinogen,Urine <2.0 mg/dL (<2.0)
[2017-10-01 11:05] VITALS: BP 110/61; PULSE 54; RESP 18
== END 2017-10-01 11:10 | disposition home or self-care (01) ==
LOC: EC 08:26
DX: S09.90XA Unspecified injury of head, initial encounter (principal); M54.2 Cervicalgia; M54.9 Dorsalgia, unspecified; G89.29 Other chronic pain; J45.909 Unspecified asthma, uncomplicated; I25.10 Atherosclerotic heart disease of native coronary artery without angina pectoris; E11.9 Type 2 diabetes mellitus without complications; E78.5 Hyperlipidemia, unspecified; I10 Essential (primary) hypertension; M19.90 Unspecified osteoarthritis, unspecified site; M41.9 Scoliosis, unspecified; F41.9 Anxiety disorder, unspecified; F32.9 Major depressive disorder, single episode, unspecified; G47.33 Obstructive sleep apnea (adult) (pediatric); Z99.89 Dependence on other enabling machines and devices; E66.9 Obesity, unspecified; Z68.43 Body mass index [BMI] 50.0-59.9, adult; Z85.41 Personal history of malignant neoplasm of cervix uteri; Z86.73 Personal history of transient ischemic attack (TIA), and cerebral infarction without residual deficits; Z86.14 Personal history of Methicillin resistant Staphylococcus aureus infection; Z95.818 Presence of other cardiac implants and grafts; Z95.5 Presence of coronary angioplasty implant and graft; Z99.81 Dependence on supplemental oxygen; Z79.891 Long term (current) use of opiate analgesic; Z79.02 Long term (current) use of antithrombotics/antiplatelets; Z79.4 Long term (current) use of insulin; Z79.899 Other long term (current) drug therapy; Z91.048 Other nonmedicinal substance allergy status; Z88.5 Allergy status to narcotic agent; Z91.040 Latex allergy status; Z88.0 Allergy status to penicillin; Z88.8 Allergy status to other drugs, medicaments and biological substances; W19.XXXA Unspecified fall, initial encounter
CPT/HCPCS: 36415; 70450; 71046; 72125; 72170; 80053; 81003; 85025; 85610; 85730; 93005; 99285

== ENCOUNTER 2017-12-14 16:33 | Inpatient (IN) | payer MEDICARE ==
[2017-12-14] MEDS ORDERED: SODIUM CHLORIDE 0.9% 500 ML 500 ML IV STA (16:45)
[2017-12-14] MEDS ORDERED: PANTOPRAZOLE 40 MG/10 ML VIAL IVP STA (16:45)
[2017-12-14] MEDS ORDERED: SODIUM CHLORIDE 0.9% 1,000 ML IV STA (16:45)
[2017-12-14 17:15] LABS: Basophils % (A) 0 %; Eosinophils % (A) 0 %; HCT 33.6 % (34.0-46.0); HGB 10.4 gm/dL (11.4-16.0); Hypochromasia Slight; Lymphocytes # (A) 0.7 k/uL (1.0-4.8); Lymphocytes % (A) 8 %; MCH 33.2 pg (25.0-35.0); Macrocytosis Moderate; Mean Platelet Volume 7.2; Monocytes # (A) 0.5 k/uL (0-1.0); Monocytes % (A) 6 %; Neutrophils # (A) 7.4 k/uL (1.3-7.7); Neutrophils % (A) 85 %; Platelet Count 173 k/uL (150-450); RBC 3.14 m/uL (3.80-5.40); RDW 12.8 % (11.5-15.5); WBC 8.7 k/uL (3.8-10.6)
[2017-12-14 17:20] LABS: Albumin 3.2 g/dL (3.5-5.0); Calcium 8.5 mg/dL (8.4-10.2); Magnesium 1.8 mg/dL (1.6-2.3); Potassium 5.4 mmol/L (3.5-5.1); Total Bilirubin 0.4 mg/dL (0.2-1.3); Total Protein 5.1 g/dL (6.3-8.2)
[2017-12-14 17:28] LABS: Prothrombin Time 10.1 sec (9.0-12.0)
[2017-12-14 17:31] LABS: Creatine Kinase <20 U/L (30-135)
[2017-12-14 17:32] LABS: Partial Thromboplastin Time 19.5 sec (22.0-30.0)
--- NOTE | 2017-12-14 17:35 | XR ---
EXAMINATION TYPE: XR ankle complete RT DATE OF EXAM: 12/14/2017 COMPARISON: NONE HISTORY: Ankle pain TECHNIQUE: 3 views FINDINGS: There is plantar calcaneal spur. Ankle mortise is anatomic. There is soft tissue swelling [place] the lateral malleolus. There is vascular calcification. IMPRESSION: Soft tissue swelling. No fracture. Calcaneal spurring.
--- NOTE | 2017-12-14 17:37 | XR ---
EXAMINATION TYPE: XR foot complete RT DATE OF EXAM: 12/14/2017 COMPARISON: NONE HISTORY: Foot pain TECHNIQUE: 3 views FINDINGS: There is plantar calcaneal spurring. Metatarsals appear intact. I see no fracture nor dislo cation. There are no erosions. There is mild vascular calcification. IMPRESSION: No acute abnormality of the right foot.
[2017-12-14 17:45] LABS: Creatine Kinase MB 0.3 ng/mL (0.0-2.4); Troponin I 0.016 ng/mL (0.000-0.034)
--- NOTE | 2017-12-14 18:20 | ED ---
GI Bleed HPI - General Chief complaint: GI Bleed Stated complaint: GI bleed Time Seen by Provider: 12/14/17 16:36 Source: patient, EMS, RN notes reviewed, old records reviewed Mode of arrival: EMS Limitations: no limitations - History of Present Illness Initial comments: This is a 72-year-old female the ER for evaluation. Patient presents today for evaluation regarding left lower quadrant bowel pain and bright red blood per rectum. Positive GI bleed. Patient states she has no significant injury medical history no prior history of GI bleed. Patient denies being on blood thinners. No recent travel history no sick contacts. Again patient does admit to bowel pain no fevers MD complaint: blood streaked stool, gross hematochezia -: hour(s) (5) Consistency: now resolved Improves with: none Worsens with: bowel movement Associated Symptoms: weakness Treatments Prior to Arrival: none - Related Data Home Medications Medication Instructions Recorded Confirmed Citalopram Hydrobromide [CeleXA] 40 mg PO DAILY 09/20/14 12/14/17 clonazePAM [KlonoPIN] 1 mg PO TID 09/20/14 12/14/17 traMADol HCl [Ultram] 50 mg PO TID 10/19/16 12/14/17 Lisinopril [Zestril] 20 mg PO DAILY 12/21/16 12/14/17 Atorvastatin [Lipitor] 40 mg PO HS 01/30/17 12/14/17 Aspirin EC [Ecotrin Low Dose] 81 mg PO DAILY 12/14/17 12/14/17 Cholecalciferol (Vitamin D3) 2,000 unit PO DAILY 12/14/17 12/14/17 [Vitamin D3] Gabapentin [Neurontin] 100 mg PO DAILY 12/14/17 12/14/17 Insulin Aspart [NovoLOG See Protocol SQ ACHS 12/14/17 12/14/17 (formulary)] Insulin Glargine,Hum.rec.anlog 50 unit SQ HS 12/14/17 12/14/17 [Lantus Solostar] Ipratropium-Albuterol Nebulize 3 ml INHALATION RT-QID PRN 12/14/17 12/14/17 [Duoneb 0.5 mg-3 mg/3 ml Soln] Isosorbide Mononitrate ER [Imdur] 60 mg PO DAILY 12/14/17 12/14/17 Metoprolol Tartrate [Lopressor] 25 mg PO BID 12/14/17 12/14/17 Pantoprazole Sodium [Protonix] 40 mg PO DAILY 12/14/17 12/14/17 Tolterodine Tartrate [Detrol LA] 4 mg PO DAILY 12/14/17 12/14/17 predniSONE 20 mg PO DAILY 12/14/17 12/14/17 Previous Rx's Medication Instructions Recorded Ferrous Sulfate [Iron (65 MG 325 mg PO DAILY tab 10/08/15 Elemental)] Nitroglycerin Sl Tabs [Nitrostat] 0.4 mg SUBLINGUAL Q5M PRN #30 tab 12/23/16 Divalproex [Depakote] 250 mg PO BID tablet. 05/17/17 Furosemide [Lasix] 40 mg PO BID@0900,1600 tab 05/17/17 Allergies Allergy/AdvReac Type Severity Reaction Status Date / Time adhesive Allergy Rash/Hives, Verified 12/14/17 17:11 W/ TAPES, CAN USE PAPER TAPE codeine Allergy Anaphylaxis Verified 12/14/17 17:11 latex Allergy Rash/Hives Verified 12/14/17 17:11 morphine Allergy Unknown Verified 12/14/17 17:11 Penicillins Allergy Anaphylaxis Verified 12/14/17 17:11 propoxyphene napsylate Allergy Anaphylaxis Verified 12/14/17 17:11 [From Darvocet-N 100] tuberculin, purified protein Allergy Rash/Hives Verified 12/14/17 17:11 deriva [tuberculin,purif.prot.deriv.] Review of Systems ROS Statement: Those systems with pertinent positive or pertinent negative responses have been documented in the HPI. ROS Other: All systems not noted in ROS Statement are negative. 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 History of Any Multi-Drug Resistant Organisms: MRSA Date of last positivie culture/infection: 04/02/11 MDRO Source:: L chest/L lower leg/ankle Past Surgical History: Bladder Surgery, Cholecystectomy, Heart Catheterization, Heart Catheterization With Stent, Hysterectomy Additional Past Surgical History / Comment(s): PCI with a total of 5 stents per pt with last stent placed 06/29/16, partial parathyroidectomy, bilateral cataracts removed, I and D of L chest wall abscess and L ankle wound, bladder surgery with implant of stimulator system 02/2010, EGD/colonoscoy. Past Anesthesia/Blood Transfusion Reactions: No Reported Reaction Additional Past Anesthesia/Blood Transfusion Reaction / Comment(s): Pt states she has received blood in the past without reaction. Date of Last Stent Placement:: 06/29/16 Past Psychological History: Anxiety, Depression Smoking Status: Never smoker Past Alcohol Use History: None Reported Past Drug Use History: None Reported - Past Family History Father Family Medical History: Cancer, Coronary Artery Disease (CAD) Additional Family Medical History / Comment(s): Father had prostate cancer. Mother Family Medical History: Asthma, COPD General Exam Limitations: no limitations General appearance: alert, in no apparent distress Head exam: Present: atraumatic, normocephalic, normal inspection Eye exam: Present: normal appearance, PERRL, EOMI. Absent: scleral icterus, conjunctival injection, periorbital swelling ENT exam: Present: normal exam, mucous membranes moist Neck exam: Present: normal inspection. Absent: tenderness, meningismus, lymphadenopathy Respiratory exam: Present: normal lung sounds bilaterally. Absent: respiratory distress, wheezes, rales, rhonchi, stridor Cardiovascular Exam: Present: regular rate, normal rhythm, normal heart sounds. Absent: systolic murmur, diastolic murmur, rubs, gallop, clicks GI/Abdominal exam: Present: soft, normal bowel sounds. Absent: distended, tenderness, guarding, rebound, rigid Extremities exam: Present: normal inspection, full ROM, normal capillary refill. Absent: tenderness, pedal edema, joint swelling, calf tenderness Back exam: Present: normal inspection Neurological exam: Present: alert, oriented X3, CN II-XII intact Psychiatric exam: Present: normal affect, normal mood Skin exam: Present: warm, dry, intact, normal color. Absent: rash Course Vital Signs 12/14/17 12/14/17 12/14/17 16:35 17:01 17:54 Temperature 99 F Pulse Rate 66 63 88 Respiratory 18 20 18 Rate Blood Pressure 129/56 129/61 153/65 O2 Sat by Pulse 91 L 100 95 Oximetry - Reevaluation(s) Reevaluation #1: 12/14/17 18:53 Medical records thoroughly reviewed Reevaluation #2: 12/14/17 18:53 Patient is without bleeding here in the ER, no episodes of syncope Medical Decision Making - Medical Decision Making 72 female the ER with positive GI bleed. Left for quadrant abdominal pain. - Lab Data Result diagrams: 12/14/17 16:45 12/14/17 16:45 Lab Results 12/14/17 12/14/17 12/14/17 Range/Units 16:45 16:45 16:45 WBC 8.7 (3.8-10.6) k/uL RBC 3.14 L (3.80-5.40) m/uL Hgb 10.4 L (11.4-16.0) gm/dL Hct 33.6 L (34.0-46.0) % MCV 107.0 H (80.0-100.0) fL MCH 33.2 (25.0-35.0) pg MCHC 31.0 (31.0-37.0) g/dL RDW 12.8 (11.5-15.5) % Plt Count 173 (150-450) k/uL Neutrophils % 85 % Lymphocytes % 8 % Monocytes % 6 % Eosinophils % 0 % Basophils % 0 % Neutrophils # 7.4 (1.3-7.7) k/uL Lymphocytes # 0.7 L (1.0-4.8) k/uL Monocytes # 0.5 (0-1.0) k/uL Eosinophils # 0.0 (0-0.7) k/uL Basophils # 0.0 (0-0.2) k/uL Hypochromasia Slight Macrocytosis Moderate PT (9.0-12.0) sec INR (<1.2) APTT (22.0-30.0) sec Sodium 134 L (137-145) mmol/L Potassium 5.4 H (3.5-5.1) mmol/L Chloride 95 L (98-107) mmol/L Carbon Dioxide 32 H (22-30) mmol/L Anion Gap 7 mmol/L BUN 51 H (7-17) mg/dL Creatinine 1.05 H (0.52-1.04) mg/dL Est GFR (CKD-EPI)AfAm 60 (>60 ml/min/1.73 sqM) Est GFR (CKD-EPI)NonAf 52 (>60 ml/min/1.73 sqM) Glucose 449 H (74-99) mg/dL Calcium 8.5 (8.4-10.2) mg/dL Magnesium 1.8 (1.6-2.3) mg/dL Total Bilirubin 0.4 (0.2-1.3) mg/dL AST 12 L (14-36) U/L ALT 32 (9-52) U/L Alkaline Phosphatase 32 L (38-126) U/L Total Creatine Kinase <20 L (30-135) U/L CK-MB (CK-2) 0.3 (0.0-2.4) ng/mL CK-MB (CK-2) Rel Index Troponin I 0.016 (0.000-0.034) ng/mL Total Protein 5.1 L (6.3-8.2) g/dL Albumin 3.2 L (3.5-5.0) g/dL Blood Type Blood Type Recheck Antibody Screen Spec Expiration Date 12/14/17 12/14/17 Range/Units 16:45 16:45 WBC (3.8-10.6) k/uL RBC (3.80-5.40) m/uL Hgb (11.4-16.0) gm/dL Hct (34.0-46.0) % MCV (80.0-100.0) fL MCH (25.0-35.0) pg MCHC (31.0-37.0) g/dL RDW (11.5-15.5) % Plt Count (150-450) k/uL Neutrophils % % Lymphocytes % % Monocytes % % Eosinophils % % Basophils % % Neutrophils # (1.3-7.7) k/uL Lymphocytes # (1.0-4.8) k/uL Monocytes # (0-1.0) k/uL Eosinophils # (0-0.7) k/uL Basophils # (0-0.2) k/uL Hypochromasia Macrocytosis PT 10.1 (9.0-12.0) sec INR 1.0 (<1.2) APTT 19.5 L (22.0-30.0) sec Sodium (137-145) mmol/L Potassium (3.5-5.1) mmol/L Chloride (98-107) mmol/L Carbon Dioxide (22-30) mmol/L Anion Gap mmol/L BUN (7-17) mg/dL Creatinine (0.52-1.04) mg/dL Est GFR (CKD-EPI)AfAm (>60 ml/min/1.73 sqM) Est GFR (CKD-EPI)NonAf (>60 ml/min/1.73 sqM) Glucose (74-99) mg/dL Calcium (8.4-10.2) mg/dL Magnesium (1.6-2.3) mg/dL Total Bilirubin (0.2-1.3) mg/dL AST (14-36) U/L ALT (9-52) U/L Alkaline Phosphatase (38-126) U/L Total Creatine Kinase (30-135) U/L CK-MB (CK-2) (0.0-2.4) ng/mL CK-MB (CK-2) Rel Index Troponin I (0.000-0.034) ng/mL Total Protein (6.3-8.2) g/dL Albumin (3.5-5.0) g/dL Blood Type B Negative Blood Type Recheck No Antibody Screen NEGATIVE Spec Expiration Date 12/17/2017 - 2345 - EKG Data -: EKG Interpreted by Me (EKG shows normal sinus rhythm rate of 64, NV 162, QRS 84, QTc 420) EKG shows normal: sinus rhythm Rate: normal - Radiology Data Radiology results: report reviewed (CT abdomen pelvis), image reviewed Disposition Clinical Impression: Gastrointestinal hemorrhage, Rectal bleeding, Acute on chronic renal failure Disposition: ADMITTED IP TO THIS [facility] Condition: Fair Instructions: Gastrointestinal Bleeding (ED) Referrals: Chris Yi MD [Primary Care Provider] - 1-2 days
--- NOTE | 2017-12-14 20:04 | CT ---
EXAMINATION TYPE: CT abdomen pelvis w con DATE OF EXAM: 12/14/2017 COMPARISON: 01/30/2017 HISTORY: Pain, diarrhea, and rectal bleeding. CT DLP: 1676 mGycm Automated exposure control for dose reduction was used. TECHNIQUE: Helical acquisition of images was performed from the lung bases through the pelvis. CONTRAST: Performed without Oral Contrast and with IV Contrast, patient injected with 80 mL of Isovue 300. FINDINGS: Lung bases are clear. There is no pleural effusion. There is minimal scarring or subsegmental atelect asis at the lung bases. Heart is slightly enlarged. There is no pericardial effusion. There is small hiatal hernia. Stomach i s otherwise normal. Liver spleen pancreas appear normal. There are clips from cholecystectomy. Bile ducts are not dilated . There is no adrenal mass. Kidneys have normal size and contour. There is no hydronephrosis. There is no retroperitoneal adenopathy. There is no mesenteric adenopathy or edema. There is no ascites. Bladd er distends smoothly. There is no inguinal hernia. I see no pelvic mass. There is hysterectomy. There are spondylotic changes in the lumbar spine. I see no compression fracture. There is no intestinal wall thickening. There are no dilated loops. . There is mild lumbar dextroscol iosis. Bony pelvis is intact. Appendix appears normal. IMPRESSION: NO SIGN OF ACUTE ABDOMEN AND PELVIS. SMALL HIATAL HERNIA. NO ADVERSE CHANGE COMPARED TO 01/30/2017 EX AM.
[2017-12-14 23:54] LABS: Glucose,Whole Blood 228 mg/dL (75-99)
[2017-12-14] MEDS ORDERED: NITROGLYCERIN SL TABS 0.4 MG TAB SUBLINGUAL PRN (23:58)
[2017-12-15] MEDS: ATORVASTATIN 40 MG TAB PO SCH ×2 (00:52→21:40)
[2017-12-15] MEDS: clonazePAM 1 MG TAB PO SCH ×4 (00:52→21:41)
[2017-12-15] MEDS: traMADol 50 MG TAB PO PRN ×2 (00:52→15:42)
[2017-12-15] MEDS: INSULIN DETEMIR 100 UNIT/ML 10 ML VIAL SQ SCH ×2 (00:53→21:40)
[2017-12-15] MEDS: INSULIN ASPART 100 UNIT/ML 1 ML 10 ML VIAL SQ SCH ×4 (07:51→21:40)
[2017-12-15 10:15] LABS: Basophils % (A) 0 %; Eosinophils # (A) 0.2 k/uL (0-0.7); Eosinophils % (A) 2 %; HCT 32.3 % (34.0-46.0); HGB 10.5 gm/dL (11.4-16.0); Lymphocytes # (A) 2.3 k/uL (1.0-4.8); Lymphocytes % (A) 28 %; MCH 33.8 pg (25.0-35.0); MCHC 32.5 g/dL (31.0-37.0); Macrocytosis Slight; Monocytes # (A) 0.7 k/uL (0-1.0); Monocytes % (A) 9 %; Neutrophils # (A) 4.8 k/uL (1.3-7.7); Neutrophils % (A) 59 %; Platelet Count 152 k/uL (150-450); RBC 3.11 m/uL (3.80-5.40); RDW 12.7 % (11.5-15.5); WBC 8.2 k/uL (3.8-10.6)
[2017-12-15 10:39] LABS: Calcium 8.6 mg/dL (8.4-10.2); Potassium 4.5 mmol/L (3.5-5.1); Total Bilirubin 0.4 mg/dL (0.2-1.3)
--- NOTE | 2017-12-15 10:58 | P.HPIM ---
History of Present Illness H&P Date: 12/15/17 Chief Complaint: bright red blood per rectum This is a 72-year-old patient being seen examined and evaluated today while covering for Dr. Chris Yi. This patient came into the ER yesterday after having some bright red blood per rectum. Patient stated been ongoing for one day. She has not had any bowel movements today. She also complains of generalized diffused abdominal pain. A CT of the abdomen was obtained and showed no acute process, she did have a small hiatal hernia that is unchanged from 01/30/2017. Surgical services was put on consult. Her hemoglobin is stable at 10.5. She did have an EGD colonoscopy on 10/21/2016 which revealed mild antral gastritis with a normal colon. She does have a history of obstructive sleep apnea, COPD and does wear 2 L of supplemental oxygen at all times, she is noncompliant with her CPAP. 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 ago -memory impairment, uses O2 @2l continuously, hypothyroid hemorrhoids, anemia, Cervical CA hysterectomy, sinus problems at times. History of Any Multi-Drug Resistant Organisms: MRSA Date of last positivie culture/infection: 04/02/11 MDRO Source:: L chest/L lower leg/ankle Past Surgical History: Bladder Surgery, Cholecystectomy, Heart Catheterization, Heart Catheterization With Stent, Hysterectomy Additional Past Surgical History / Comment(s): PCI with a total of 5 stents per pt with last stent placed 06/29/16, partial parathyroidectomy, bilateral cataracts removed, I and D of L chest wall abscess and L ankle wound, bladder surgery with implant of stimulator system 02/2010, EGD/colonoscoy. Past Anesthesia/Blood Transfusion Reactions: No Reported Reaction Additional Past Anesthesia/Blood Transfusion Reaction / Comment(s): Pt states she has received blood in the past without reaction. Date of Last Stent Placement:: 06/29/16 Past Psychological History: Anxiety, Depression Additional Psychological History / Comment(s): RESIDES @ [facility] apartments. USES WALKER OR W/C . HOME CARE FROM [facility]-FOR MEDICATION ADMINISTRATION. O2 at 2L/NC ATC. Staff manages her medications. She goes to a [employer] area for meals usually Smoking Status: Never smoker Past Alcohol Use History: None Reported Past Drug Use History: None Reported - Past Family History Father Family Medical History: Cancer, Coronary Artery Disease (CAD) Additional Family Medical History / Comment(s): Father had prostate cancer. Mother Family Medical History: Asthma, COPD Medications and Allergies Home Medications Medication Instructions Recorded Confirmed Type Citalopram Hydrobromide [CeleXA] 40 mg PO DAILY 09/20/14 12/14/17 History clonazePAM [KlonoPIN] 1 mg PO TID 09/20/14 12/14/17 History Ferrous Sulfate [Iron (65 MG 325 mg PO DAILY tab 10/08/15 12/14/17 Rx Elemental)] traMADol HCl [Ultram] 50 mg PO TID 10/19/16 12/14/17 History Lisinopril [Zestril] 20 mg PO DAILY 12/21/16 12/14/17 History Nitroglycerin Sl Tabs [Nitrostat] 0.4 mg SUBLINGUAL Q5M PRN #30 tab 12/23/1601/21 Rx Atorvastatin [Lipitor] 40 mg PO HS 01/30/17 12/14/17 History Divalproex [Depakote] 250 mg PO BID tablet. 05/17/17 12/14/17 Rx Furosemide [Lasix] 40 mg PO BID@0900,1600 tab 05/17/17 12/14/17 Rx Aspirin EC [Ecotrin Low Dose] 81 mg PO DAILY 12/14/17 12/14/17 History Cholecalciferol (Vitamin D3) 2,000 unit PO DAILY 12/14/17 12/14/17 History [Vitamin D3] Gabapentin [Neurontin] 100 mg PO DAILY 12/14/17 12/14/17 History Insulin Aspart [NovoLOG See Protocol SQ ACHS 12/14/17 12/14/17 History (formulary)] Insulin Glargine,Hum.rec.anlog 50 unit SQ HS 12/14/17 12/14/17 History [Lantus Solostar] Ipratropium-Albuterol Nebulize 3 ml INHALATION RT-QID PRN 12/14/17 12/14/17 History [Duoneb 0.5 mg-3 mg/3 ml Soln] Isosorbide Mononitrate ER [Imdur] 60 mg PO DAILY 12/14/17 12/14/17 History Metoprolol Tartrate [Lopressor] 25 mg PO BID 12/14/17 12/14/17 History Pantoprazole Sodium [Protonix] 40 mg PO DAILY 12/14/17 12/14/17 History Tolterodine Tartrate [Detrol LA] 4 mg PO DAILY 12/14/17 12/14/17 History predniSONE 20 mg PO DAILY 12/14/17 12/14/17 History Allergies Allergy/AdvReac Type Severity Reaction Status Date / Time codeine Allergy Anaphylaxis Verified 12/14/17 17:11 morphine Allergy Hallucinati Verified 12/14/17 23:42 ons Penicillins Allergy Anaphylaxis Verified 12/14/17 17:11 propoxyphene napsylate Allergy Anaphylaxis Verified 12/14/17 17:11 [From Darvocet-N 100] tuberculin, purified protein Allergy Rash/Hives Verified 12/14/17 17:11 deriva [tuberculin,purif.prot.deriv.] adhesive AdvReac Mild Rash/Hives, Verified 12/14/17 23:42 W/ TAPES, CAN USE PAPER TAPE latex AdvReac Mild Rash/Hives Verified 12/14/17 23:42 Physical Exam Vitals: Vital Signs Temp Pulse Pulse Pulse Resp BP BP 12/15/17 04:23 98.2 F 62 18 132/78 12/14/17 21:50 96.3 F L 61 16 133/63 12/14/17 20:00 98.2 F 62 20 160/69 12/14/17 19:00 65 20 144/63 12/14/17 17:54 88 18 153/65 12/14/17 17:01 63 20 129/61 12/14/17 16:35 99 F 66 18 129/56 Pulse Ox 12/15/17 04:23 98 12/14/17 21:50 99 12/14/17 20:00 99 12/14/17 19:00 97 12/14/17 17:54 95 12/14/17 17:01 100 12/14/17 16:35 91 L Intake and Output 12/14/17 12/15/17 12/15/17 22:59 06:59 14:59 Intake Total 1200 Balance 1200 Intake: Intake, IV Titration 1200 Amount Sodium Chloride 0.9% 1, 1200 000 ml @ 100 mls/hr IV . Q10H STA Rx#:[id number] Other: Voiding Method Bedside Commode Diaper Incontinent # Voids 3 Weight 149.685 kg GENERAL EXAM: Alert, active, comfortable in no apparent distress. HEAD: Normocephalic. EYES: Normal reaction of pupils, equal size. NOSE: Clear with pink turbinates. THROAT: No erythema or exudates. NECK: No masses, no JVD. CHEST: No chest wall deformity. LUNGS: Equal air entry with no crackles, wheeze, rhonchi or dullness. CVS: S1 and S2 normal with no audible mumurs, regular rhythm. ABDOMEN: No hepatosplenomegaly, normal bowel sounds, no guarding or rigidity. EXTREMITIES: No edema noted, pedal pulses palpable. CENTRAL NERVOUS SYSTEM: No focal deficits, tone is normal in all 4 extremities. Results CBC & Chem 7: 12/15/17 09:47 12/14/17 16:45 Labs: Abnormal Lab Results - Last 24 Hours (Table) 12/14/17 12/14/17 12/14/17 Range/Units 16:45 16:45 16:45 RBC 3.14 L (3.80-5.40) m/uL Hgb 10.4 L (11.4-16.0) gm/dL Hct 33.6 L (34.0-46.0) % MCV 107.0 H (80.0-100.0) fL Lymphocytes # 0.7 L (1.0-4.8) k/uL APTT (22.0-30.0) sec Sodium 134 L (137-145) mmol/L Potassium 5.4 H (3.5-5.1) mmol/L Chloride 95 L (98-107) mmol/L Carbon Dioxide 32 H (22-30) mmol/L BUN 51 H (7-17) mg/dL Creatinine 1.05 H (0.52-1.04) mg/dL Glucose 449 H (74-99) mg/dL POC Glucose (mg/dL) (75-99) mg/dL AST 12 L (14-36) U/L Alkaline Phosphatase 32 L (38-126) U/L Total Creatine Kinase <20 L (30-135) U/L Total Protein 5.1 L (6.3-8.2) g/dL Albumin 3.2 L (3.5-5.0) g/dL 12/14/17 12/14/17 12/15/17 Range/Units 16:45 23:52 09:47 RBC 3.11 L (3.80-5.40) m/uL Hgb 10.5 L (11.4-16.0) gm/dL Hct 32.3 L (34.0-46.0) % MCV 104.0 H (80.0-100.0) fL Lymphocytes # (1.0-4.8) k/uL APTT 19.5 L (22.0-30.0) sec Sodium (137-145) mmol/L Potassium (3.5-5.1) mmol/L Chloride (98-107) mmol/L Carbon Dioxide (22-30) mmol/L BUN (7-17) mg/dL Creatinine (0.52-1.04) mg/dL Glucose (74-99) mg/dL POC Glucose (mg/dL) 228 H (75-99) mg/dL AST (14-36) U/L Alkaline Phosphatase (38-126) U/L Total Creatine Kinase (30-135) U/L Total Protein (6.3-8.2) g/dL Albumin (3.5-5.0) g/dL Thrombosis Risk Factor Assmnt - Choose All That Apply Each Factor Represents 1 point: Obesity (BMI >25), Swollen legs (current) Each Risk Factor Represents 2 Points: Age 61-74 years Each Risk Factor Represents 3 Points: History of DVT/PE Other congenital or acquired thrombophilia - If yes, enter type in comment: No Thrombosis Risk Factor Assessment Total Risk Factor Score: 7 Thrombosis Risk Factor Assessment Level: High Risk Assessment and Plan Assessment: Assessment GI bleed Diffuse abdominal pain Hyperkalemia Dehydration Hyperglycemia History of COPD History of TAMRA noncompliant with CPAP History of pulmonary hypertension Plan Medications have been reviewed and will be continued as ordered. Surgical services on consult Continue to monitor hemoglobin and any signs of bleeding Continue with pulmonary hygiene, coughing and deep breathing exercises, and supportive care. Supplemental oxygen to maintain oxygen saturations of 92% or better. Continue nebulizer treatments. GI and DVT prophylaxis. Protonix and SCDs We will continue to monitor labs/results and adjust treatment as necessary. Further recommendations pending. I, the signing physician performed an examination of the patient, discussed and directed their management with the nurse practitioner. I have reviewed the nurse practitioner's note and agree with the documented findings, orders and plan of care. Of note, we are covering for Dr Yi today.
[2017-12-15 11:28] LABS: Glucose,Whole Blood 204 mg/dL (75-99)
[2017-12-15] MEDS: PANTOPRAZOLE 40 MG/10 ML VIAL IVP SCH ×2 (11:54→21:40)
--- NOTE | 2017-12-15 12:34 | P.GSCN ---
History of Present Illness Consult date: 12/15/17 History of present illness: 72-year-old female presented to the emergency department with complaints of lower abdominal pain and blood in her stool. She states that she noticed this with 2 different bowel movements that she had a large amount of bright red blood in her stool. She states abdominal pain is in the lower bilateral quadrants. She denies any emesis episodes but complains of some nausea. She denies any significant changes in diet. She states she does not recall having this type of symptom previously. She states that she has had a colonoscopy approximately 1 year ago. Since her admission to the hospital, she denies having any additional bloody bowel movements. Hemoglobin on presentation was 10.4 and on repeat draw was 10.5. Does not have any hypotension or tachycardic episodes. She has no additional complaints at this time. She is on low-dose aspirin but not on any other significant anticoagulant. Review of Systems All systems: negative Past Medical History Past Medical History: Asthma, Coronary Artery Disease (CAD), Cancer, Chest Pain / Angina, CVA/TIA, Diabetes Mellitus, GERD/Reflux, Hyperlipidemia, Hypertension , Memory Impairment, Pneumonia, Sleep Apnea/CPAP/BIPAP Additional Past Medical History / Comment(s): IDDM type II, TAMRA unable to tolerate CPAP, bronchitis, chronic low back pain- bulging discs, scoliosis, urinary incontinence, IBS, gastric ulcers, hiatal hernia, TIA 3 yrs roughly. ago -memory impairment, uses O2 @2l continuously, hypothyroid hemorrhoids, anemia, Cervical CA hysterectomy, sinus problems at times. History of Any Multi-Drug Resistant Organisms: MRSA Year Discovered:: 04/02/11 MDRO Source:: L chest/L lower leg/ankle Past Surgical History: Bladder Surgery, Cholecystectomy, Heart Catheterization, Heart Catheterization With Stent, Hysterectomy Additional Past Surgical History / Comment(s): PCI with a total of 5 stents per pt with last stent placed 06/29/16, partial parathyroidectomy, bilateral cataracts removed, I and D of L chest wall abscess and L ankle wound, bladder surgery with implant of stimulator system 02/2010, EGD/colonoscoy. Past Anesthesia/Blood Transfusion Reactions: No Reported Reaction Additional Past Anesthesia/Blood Transfusion Reaction / Comm: Pt states she has received blood in the past without reaction. Date of Last Stent Placement:: 06/29/16 Past Psychological History: Anxiety, Depression Additional Psychological History / Comment(s): RESIDES @ [facility]. USES WALKER OR W/C . HOME CARE FROM [facility]-FOR MEDICATION ADMINISTRATION. O2 at 2L/NC ATC. Staff manages her medications. She goes to a [employer] area for meals usually Smoking Status: Never smoker Past Alcohol Use History: None Reported Past Drug Use History: None Reported - Past Family History Father Family Medical History: Cancer, Coronary Artery Disease (CAD) Additional Family Medical History / Comment(s): Father had prostate cancer. Mother Family Medical History: Asthma, COPD Medications and Allergies Home Medications Medication Instructions Recorded Confirmed Type Citalopram Hydrobromide [CeleXA] 40 mg PO DAILY 09/20/14 12/14/17 History clonazePAM [KlonoPIN] 1 mg PO TID 09/20/14 12/14/17 History Ferrous Sulfate [Iron (65 MG 325 mg PO DAILY tab 10/08/15 12/14/17 Rx Elemental)] traMADol HCl [Ultram] 50 mg PO TID 10/19/16 12/14/17 History Lisinopril [Zestril] 20 mg PO DAILY 12/21/16 12/14/17 History Nitroglycerin Sl Tabs [Nitrostat] 0.4 mg SUBLINGUAL Q5M PRN #30 tab 12/23/1601/21 Rx Atorvastatin [Lipitor] 40 mg PO HS 01/30/17 12/14/17 History Divalproex [Depakote] 250 mg PO BID tablet. 05/17/17 12/14/17 Rx Furosemide [Lasix] 40 mg PO BID@0900,1600 tab 05/17/17 12/14/17 Rx Aspirin EC [Ecotrin Low Dose] 81 mg PO DAILY 12/14/17 12/14/17 History Cholecalciferol (Vitamin D3) 2,000 unit PO DAILY 12/14/17 12/14/17 History [Vitamin D3] Gabapentin [Neurontin] 100 mg PO DAILY 12/14/17 12/14/17 History Insulin Aspart [NovoLOG See Protocol SQ ACHS 12/14/17 12/14/17 History (formulary)] Insulin Glargine,Hum.rec.anlog 50 unit SQ HS 12/14/17 12/14/17 History [Lantus Solostar] Ipratropium-Albuterol Nebulize 3 ml INHALATION RT-QID PRN 12/14/17 12/14/17 History [Duoneb 0.5 mg-3 mg/3 ml Soln] Isosorbide Mononitrate ER [Imdur] 60 mg PO DAILY 12/14/17 12/14/17 History Metoprolol Tartrate [Lopressor] 25 mg PO BID 12/14/17 12/14/17 History Pantoprazole Sodium [Protonix] 40 mg PO DAILY 12/14/17 12/14/17 History Tolterodine Tartrate [Detrol LA] 4 mg PO DAILY 12/14/17 12/14/17 History predniSONE 20 mg PO DAILY 12/14/17 12/14/17 History Allergies Allergy/AdvReac Type Severity Reaction Status Date / Time codeine Allergy Anaphylaxis Verified 12/14/17 17:11 morphine Allergy Hallucinati Verified 12/14/17 23:42 ons Penicillins Allergy Anaphylaxis Verified 12/14/17 17:11 propoxyphene napsylate Allergy Anaphylaxis Verified 12/14/17 17:11 [From Darvocet-N 100] tuberculin, purified protein Allergy Rash/Hives Verified 12/14/17 17:11 deriva [tuberculin,purif.prot.deriv.] adhesive AdvReac Mild Rash/Hives, Verified 12/14/17 23:42 W/ TAPES, CAN USE PAPER TAPE latex AdvReac Mild Rash/Hives Verified 12/14/17 23:42 Surgical - Exam Osteopathic Statement: *. No significant issues noted on an osteopathic structural exam other than those noted in the History and Physical/Consult. Vital Signs Temp Pulse Resp BP Pulse Ox 99 F 66 18 129/56 91 L 12/14/17 16:35 12/14/17 16:35 12/14/17 16:35 12/14/17 16:35 12/14/17 16:35 - General well nourished, no distress - Eyes normal ocular movement - ENT no hearing loss - Neck trachea midline - Respiratory No difficulty with respiration - Abdomen Soft, nontender, nondistended, no rebound, no guarding - Psychiatric oriented to time, oriented to person, oriented to place, speech is normal Results - Labs 12/15/17 09:47 12/15/17 09:47 Abnormal Lab Results - Last 24 Hours (Table) 12/14/17 12/14/17 12/14/17 Range/Units 16:45 16:45 16:45 RBC 3.14 L (3.80-5.40) m/uL Hgb 10.4 L (11.4-16.0) gm/dL Hct 33.6 L (34.0-46.0) % MCV 107.0 H (80.0-100.0) fL Lymphocytes # 0.7 L (1.0-4.8) k/uL APTT (22.0-30.0) sec Sodium 134 L (137-145) mmol/L Potassium 5.4 H (3.5-5.1) mmol/L Chloride 95 L (98-107) mmol/L Carbon Dioxide 32 H (22-30) mmol/L BUN 51 H (7-17) mg/dL Creatinine 1.05 H (0.52-1.04) mg/dL Glucose 449 H (74-99) mg/dL POC Glucose (mg/dL) (75-99) mg/dL AST 12 L (14-36) U/L Alkaline Phosphatase 32 L (38-126) U/L Total Creatine Kinase <20 L (30-135) U/L Total Protein 5.1 L (6.3-8.2) g/dL Albumin 3.2 L (3.5-5.0) g/dL 12/14/17 12/14/17 12/15/17 Range/Units 16:45 23:52 09:47 RBC 3.11 L (3.80-5.40) m/uL Hgb 10.5 L (11.4-16.0) gm/dL Hct 32.3 L (34.0-46.0) % MCV 104.0 H (80.0-100.0) fL Lymphocytes # (1.0-4.8) k/uL APTT 19.5 L (22.0-30.0) sec Sodium (137-145) mmol/L Potassium (3.5-5.1) mmol/L Chloride (98-107) mmol/L Carbon Dioxide (22-30) mmol/L BUN (7-17) mg/dL Creatinine (0.52-1.04) mg/dL Glucose (74-99) mg/dL POC Glucose (mg/dL) 228 H (75-99) mg/dL AST (14-36) U/L Alkaline Phosphatase (38-126) U/L Total Creatine Kinase (30-135) U/L Total Protein (6.3-8.2) g/dL Albumin (3.5-5.0) g/dL 12/15/17 12/15/17 Range/Units 09:47 11:27 RBC (3.80-5.40) m/uL Hgb (11.4-16.0) gm/dL Hct (34.0-46.0) % MCV (80.0-100.0) fL Lymphocytes # (1.0-4.8) k/uL APTT (22.0-30.0) sec Sodium (137-145) mmol/L Potassium (3.5-5.1) mmol/L Chloride (98-107) mmol/L Carbon Dioxide 36 H (22-30) mmol/L BUN 33 H (7-17) mg/dL Creatinine (0.52-1.04) mg/dL Glucose 106 H (74-99) mg/dL POC Glucose (mg/dL) 204 H (75-99) mg/dL AST 11 L (14-36) U/L Alkaline Phosphatase 28 L (38-126) U/L Total Creatine Kinase (30-135) U/L Total Protein 5.0 L (6.3-8.2) g/dL Albumin 3.0 L (3.5-5.0) g/dL Diabetes panel 12/14/17 12/15/17 Range/Units 16:45 09:47 Sodium 134 L 140 (137-145) mmol/L Potassium 5.4 H 4.5 (3.5-5.1) mmol/L Chloride 95 L 102 (98-107) mmol/L Carbon Dioxide 32 H 36 H (22-30) mmol/L BUN 51 H 33 H (7-17) mg/dL Creatinine 1.05 H 0.96 (0.52-1.04) mg/dL Glucose 449 H 106 H (74-99) mg/dL Calcium 8.5 8.6 (8.4-10.2) mg/dL AST 12 L 11 L (14-36) U/L ALT 32 25 (9-52) U/L Alkaline Phosphatase 32 L 28 L (38-126) U/L Total Protein 5.1 L 5.0 L (6.3-8.2) g/dL Albumin 3.2 L 3.0 L (3.5-5.0) g/dL Calcium panel 12/14/17 12/15/17 Range/Units 16:45 09:47 Calcium 8.5 8.6 (8.4-10.2) mg/dL Albumin 3.2 L 3.0 L (3.5-5.0) g/dL Pituitary panel 12/14/17 12/15/17 Range/Units 16:45 09:47 Sodium 134 L 140 (137-145) mmol/L Potassium 5.4 H 4.5 (3.5-5.1) mmol/L Chloride 95 L 102 (98-107) mmol/L Carbon Dioxide 32 H 36 H (22-30) mmol/L BUN 51 H 33 H (7-17) mg/dL Creatinine 1.05 H 0.96 (0.52-1.04) mg/dL Glucose 449 H 106 H (74-99) mg/dL Calcium 8.5 8.6 (8.4-10.2) mg/dL Adrenal panel 12/14/17 12/15/17 Range/Units 16:45 09:47 Sodium 134 L 140 (137-145) mmol/L Potassium 5.4 H 4.5 (3.5-5.1) mmol/L Chloride 95 L 102 (98-107) mmol/L Carbon Dioxide 32 H 36 H (22-30) mmol/L BUN 51 H 33 H (7-17) mg/dL Creatinine 1.05 H 0.96 (0.52-1.04) mg/dL Glucose 449 H 106 H (74-99) mg/dL Calcium 8.5 8.6 (8.4-10.2) mg/dL Total Bilirubin 0.4 0.4 (0.2-1.3) mg/dL AST 12 L 11 L (14-36) U/L ALT 32 25 (9-52) U/L Alkaline Phosphatase 32 L 28 L (38-126) U/L Total Protein 5.1 L 5.0 L (6.3-8.2) g/dL Albumin 3.2 L 3.0 L (3.5-5.0) g/dL - Imaging CT scan - abdomen: report reviewed, image reviewed (No acute findings noted) CT scan - pelvis: report reviewed, image reviewed Assessment and Plan (1) Gastrointestinal hemorrhage Narrative/Plan: 72-year-old female with blood in her stool and GI bleed - The patient appears to be stable at this time with no significant hypotension or tachycardia. Hemoglobin is stable at 10.5 from previous draw of 10.4. - Will continue conservative management at this time - Patient has recent history of endoscopy, due to recurrent GI bleed, plan for endoscopy as an outpatient as long as patient continues to remain stable. Thank you for this consultation, I look forward in providing in this patient's care. Current Visit: Yes Status: Acute Code(s): K92.2 - GASTROINTESTINAL HEMORRHAGE, UNSPECIFIED SNOMED Code(s): 41192027
[2017-12-15 15:24] LABS: Hemoglobin A1C 9.1 % (4.0-6.0)
[2017-12-15 17:08] LABS: Glucose,Whole Blood 138 mg/dL (75-99)
[2017-12-15] MEDS: NYSTATIN 100,000 UNIT/GM POWD 15 GM TOPICAL SCH ×2 (17:31→21:41)
[2017-12-15 21:08] LABS: Glucose,Whole Blood 185 mg/dL (75-99)
[2017-12-16] MEDS: traMADol 50 MG TAB PO PRN ×3 (00:34→21:13)
[2017-12-16 07:00] LABS: Glucose,Whole Blood 144 mg/dL (75-99)
[2017-12-16 07:38] LABS: Basophils % (A) 0 %; Eosinophils # (A) 0.2 k/uL (0-0.7); Eosinophils % (A) 2 %; HCT 34.4 % (34.0-46.0); HGB 10.6 gm/dL (11.4-16.0); Hypochromasia Slight; Lymphocytes # (A) 1.7 k/uL (1.0-4.8); Lymphocytes % (A) 19 %; MCH 32.6 pg (25.0-35.0); MCHC 30.9 g/dL (31.0-37.0); MCV 105.4 fL (80.0-100.0); Macrocytosis Slight; Mean Platelet Volume 6.9; Monocytes # (A) 0.7 k/uL (0-1.0); Monocytes % (A) 8 %; Neutrophils # (A) 6.5 k/uL (1.3-7.7); Neutrophils % (A) 70 %; Platelet Count 171 k/uL (150-450); RBC 3.26 m/uL (3.80-5.40); RDW 12.6 % (11.5-15.5); WBC 9.3 k/uL (3.8-10.6)
[2017-12-16 07:59] LABS: Albumin 3.1 g/dL (3.5-5.0); Calcium 9.1 mg/dL (8.4-10.2); Total Bilirubin 0.5 mg/dL (0.2-1.3); Total Protein 5.2 g/dL (6.3-8.2)
[2017-12-16] MEDS: PANTOPRAZOLE 40 MG/10 ML VIAL IVP SCH ×2 (08:01→21:12)
[2017-12-16] MEDS: clonazePAM 1 MG TAB PO SCH ×3 (08:01→21:12)
[2017-12-16] MEDS: NYSTATIN 100,000 UNIT/GM POWD 15 GM TOPICAL SCH ×3 (08:02→22:49)
[2017-12-16] MEDS: INSULIN ASPART 100 UNIT/ML 1 ML 10 ML VIAL SQ SCH ×4 (08:02→21:17)
--- NOTE | 2017-12-16 09:44 | P.PN ---
Subjective Progress Note Date: 12/16/17 Principal diagnosis: GI bleeding The patient's a 72-year-old female who was admitted through the emergency department with GI bleeding. She has had episodes of this in the past. She underwent upper and lower endoscopy in March 2017. At that time there was some mild sigmoid ischemic changes. The patient denies any further rectal bleeding this admission. She admits to some slight nausea. She does want to go home. Complaining of back pain which is chronic. The back pain is worse today. Objective - Vital Signs Vital signs: Vital Signs Temp 97.9 F 12/16/17 05:34 Pulse 75 12/16/17 05:34 Resp 18 12/16/17 05:34 BP 177/72 12/16/17 05:34 Pulse Ox 97 12/16/17 07:49 Intake & Output 12/15/17 12/16/17 12/16/17 18:59 06:59 18:59 Other: Voiding Method Bedside Commode Bedside Commode Diaper Diaper Incontinent Incontinent # Voids 4 - Constitutional General appearance: Present: cooperative, no acute distress - Respiratory Respiratory: bilateral: CTA, diminished (Slightly at the base) - Cardiovascular Rhythm: regular - Gastrointestinal General gastrointestinal: Present: normal bowel sounds, soft. Absent: tenderness - Psychiatric Psychiatric Comment(s): The patient appears to be answering questions appropriately. She does repeat her questions and does not seem to remember that she had previously asked those - Labs CBC & Chem 7: 12/16/17 06:54 12/16/17 06:54 Labs: Abnormal Lab Results - Last 24 Hours (Table) 12/14/17 12/15/17 12/15/17 Range/Units 16:45 09:47 09:47 RBC 3.11 L (3.80-5.40) m/uL Hgb 10.5 L (11.4-16.0) gm/dL Hct 32.3 L (34.0-46.0) % MCV 104.0 H (80.0-100.0) fL MCHC (31.0-37.0) g/dL Carbon Dioxide 36 H (22-30) mmol/L BUN 33 H (7-17) mg/dL Glucose 106 H (74-99) mg/dL POC Glucose (mg/dL) (75-99) mg/dL Hemoglobin A1c 9.1 H (4.0-6.0) % AST 11 L (14-36) U/L Alkaline Phosphatase 28 L (38-126) U/L Total Protein 5.0 L (6.3-8.2) g/dL Albumin 3.0 L (3.5-5.0) g/dL 12/15/17 12/15/17 12/15/17 Range/Units 11:27 17:06 21:06 RBC (3.80-5.40) m/uL Hgb (11.4-16.0) gm/dL Hct (34.0-46.0) % MCV (80.0-100.0) fL MCHC (31.0-37.0) g/dL Carbon Dioxide (22-30) mmol/L BUN (7-17) mg/dL Glucose (74-99) mg/dL POC Glucose (mg/dL) 204 H 138 H 185 H (75-99) mg/dL Hemoglobin A1c (4.0-6.0) % AST (14-36) U/L Alkaline Phosphatase (38-126) U/L Total Protein (6.3-8.2) g/dL Albumin (3.5-5.0) g/dL 12/16/17 12/16/17 12/16/17 Range/Units 06:54 06:54 06:59 RBC 3.26 L (3.80-5.40) m/uL Hgb 10.6 L (11.4-16.0) gm/dL Hct (34.0-46.0) % MCV 105.4 H (80.0-100.0) fL MCHC 30.9 L (31.0-37.0) g/dL Carbon Dioxide 33 H (22-30) mmol/L BUN 26 H (7-17) mg/dL Glucose 135 H (74-99) mg/dL POC Glucose (mg/dL) 144 H (75-99) mg/dL Hemoglobin A1c (4.0-6.0) % AST 11 L (14-36) U/L Alkaline Phosphatase 32 L (38-126) U/L Total Protein 5.2 L (6.3-8.2) g/dL Albumin 3.1 L (3.5-5.0) g/dL Assessment and Plan (1) Gastrointestinal hemorrhage Current Visit: Yes Status: Acute Code(s): K92.2 - GASTROINTESTINAL HEMORRHAGE, UNSPECIFIED SNOMED Code(s): 02613424 (2) Altered mental status Current Visit: No Status: Acute Code(s): R41.82 - ALTERED MENTAL STATUS, UNSPECIFIED SNOMED Code(s): 482673926 Plan: The patient's currently not having any signs of active bleeding. Her hemoglobin is stable. Currently nonsurgical. No plans for repeat endoscopy at this time since it was just done in March of this year.
--- NOTE | 2017-12-16 11:48 | P.CRDCN ---
History of Present Illness Consult date: 12/16/17 Chief complaint: Blood in the stool History of present illness: This is a pleasant 72-year-old female patient who I follow in the office as an outpatient was known history of coronary artery disease and prior stenting of the LAD and known severe disease involving the left circumflex as well as morbid obesity, hypertension, dyslipidemia, presented to the hospital complaining of blood in the stool. The patient did have to large bowel movement with significant amount of blood. No abdominal discomfort. No chest pain or chest discomfort at this point. No dizziness or lightheadedness. And no syncope. She continues to be hemodynamically stable. The hemoglobin was around 10.5 and it does seem to be her baseline. The patient was seen by a surgeon who recommended proceeding with endoscopy. The plan initially was to perform an endoscopy as an outpatient but I would recommend getting the endoscopy performed as an inpatient because the patient is scheduled to undergo a heart catheterization with possible coronary artery stenting. If the endoscopy revealed any evidence off actively bleeding I would hold on proceeding with a heart catheterization at this point. If not then we can pursue and scheduled the patient to undergo the procedure. Past Medical History Past Medical History: Asthma, Coronary Artery Disease (CAD), Cancer, Chest Pain / Angina, CVA/TIA, Diabetes Mellitus, GERD/Reflux, Hyperlipidemia, Hypertension , Memory Impairment, Pneumonia, Sleep Apnea/CPAP/BIPAP Additional Past Medical History / Comment(s): IDDM type II, TAMRA unable to tolerate CPAP, bronchitis, chronic low back pain- bulging discs, scoliosis, urinary incontinence, IBS, gastric ulcers, hiatal hernia, TIA 3 yrs roughly. ago -memory impairment, uses O2 @2l continuously, hypothyroid hemorrhoids, anemia, Cervical CA hysterectomy, sinus problems at times. History of Any Multi-Drug Resistant Organisms: MRSA Date of last positivie culture/infection: 04/02/11 MDRO Source:: L chest/L lower leg/ankle Past Surgical History: Bladder Surgery, Cholecystectomy, Heart Catheterization, Heart Catheterization With Stent, Hysterectomy Additional Past Surgical History / Comment(s): PCI with a total of 5 stents per pt with last stent placed 06/29/16, partial parathyroidectomy, bilateral cataracts removed, I and D of L chest wall abscess and L ankle wound, bladder surgery with implant of stimulator system 02/2010, EGD/colonoscoy. Past Anesthesia/Blood Transfusion Reactions: No Reported Reaction Additional Past Anesthesia/Blood Transfusion Reaction / Comment(s): Pt states she has received blood in the past without reaction. Date of Last Stent Placement:: 06/29/16 Past Psychological History: Anxiety, Depression Additional Psychological History / Comment(s): RESIDES @ [facility] apartments. USES [facility] OR W/C . HOME CARE FROM [facility]FOR MEDICATION ADMINISTRATION. O2 at 2L/NC ATC. Staff manages her medications. She goes to a [employer] area for meals usually Smoking Status: Never smoker Past Alcohol Use History: None Reported Past Drug Use History: None Reported - Past Family History Father Family Medical History: Cancer, Coronary Artery Disease (CAD) Additional Family Medical History / Comment(s): Father had prostate cancer. Mother Family Medical History: Asthma, COPD Medications and Allergies Home Medications Medication Instructions Recorded Confirmed Type Citalopram Hydrobromide [CeleXA] 40 mg PO DAILY 09/20/14 12/14/17 History clonazePAM [KlonoPIN] 1 mg PO TID 09/20/14 12/14/17 History Ferrous Sulfate [Iron (65 MG 325 mg PO DAILY tab 10/08/15 12/14/17 Rx Elemental)] traMADol HCl [Ultram] 50 mg PO TID 10/19/16 12/14/17 History Lisinopril [Zestril] 20 mg PO DAILY 12/21/16 12/14/17 History Nitroglycerin Sl Tabs [Nitrostat] 0.4 mg SUBLINGUAL Q5M PRN #30 tab 12/23/1601/21 Rx Atorvastatin [Lipitor] 40 mg PO HS 01/30/17 12/14/17 History Divalproex [Depakote] 250 mg PO BID tablet. 05/17/17 12/14/17 Rx Furosemide [Lasix] 40 mg PO BID@0900,1600 tab 05/17/17 12/14/17 Rx Aspirin EC [Ecotrin Low Dose] 81 mg PO DAILY 12/14/17 12/14/17 History Cholecalciferol (Vitamin D3) 2,000 unit PO DAILY 12/14/17 12/14/17 History [Vitamin D3] Gabapentin [Neurontin] 100 mg PO DAILY 12/14/17 12/14/17 History Insulin Aspart [NovoLOG See Protocol SQ ACHS 12/14/17 12/14/17 History (formulary)] Insulin Glargine,Hum.rec.anlog 50 unit SQ HS 12/14/17 12/14/17 History [Lantus Solostar] Ipratropium-Albuterol Nebulize 3 ml INHALATION RT-QID PRN 12/14/17 12/14/17 History [Duoneb 0.5 mg-3 mg/3 ml Soln] Isosorbide Mononitrate ER [Imdur] 60 mg PO DAILY 12/14/17 12/14/17 History Metoprolol Tartrate [Lopressor] 25 mg PO BID 12/14/17 12/14/17 History Pantoprazole Sodium [Protonix] 40 mg PO DAILY 12/14/17 12/14/17 History Tolterodine Tartrate [Detrol LA] 4 mg PO DAILY 12/14/17 12/14/17 History predniSONE 20 mg PO DAILY 12/14/17 12/14/17 History Allergies Allergy/AdvReac Type Severity Reaction Status Date / Time codeine Allergy Anaphylaxis Verified 12/14/17 17:11 morphine Allergy Hallucinati Verified 12/14/17 23:42 ons Penicillins Allergy Anaphylaxis Verified 12/14/17 17:11 propoxyphene napsylate Allergy Anaphylaxis Verified 12/14/17 17:11 [From Darvocet-N 100] tuberculin, purified protein Allergy Rash/Hives Verified 12/14/17 17:11 deriva [tuberculin,purif.prot.deriv.] adhesive AdvReac Mild Rash/Hives, Verified 12/14/17 23:42 W/ TAPES, CAN USE PAPER TAPE latex AdvReac Mild Rash/Hives Verified 12/14/17 23:42 Physical Exam Vitals: Vital Signs Temp Pulse Pulse Resp BP Pulse Ox 12/16/17 08:00 75 18 12/16/17 07:49 97 12/16/17 05:34 97.9 F 75 18 177/72 98 12/16/17 00:00 63 62 18 12/15/17 21:24 97.5 F L 62 18 151/63 99 12/15/17 12:16 96.4 F L 63 17 118/55 100 Intake and Output 12/15/17 12/16/17 12/16/17 22:59 06:59 14:59 Other: Voiding Method Bedside Commode Bedside Commode Bedside Commode Diaper Diaper Diaper Incontinent Incontinent # Voids 3 4 - Constitutional General appearance: no acute distress - Respiratory Respiratory: bilateral: CTA - Cardiovascular Rhythm: regular Heart sounds: normal: S1, S2 Results 12/16/17 06:54 12/16/17 06:54 Cardiac Enzymes 12/16/17 Range/Units 06:54 AST 11 L (14-36) U/L CBC 12/16/17 Range/Units 06:54 WBC 9.3 (3.8-10.6) k/uL RBC 3.26 L (3.80-5.40) m/uL Hgb 10.6 L (11.4-16.0) gm/dL Hct 34.4 (34.0-46.0) % Plt Count 171 (150-450) k/uL Comprehensive Metabolic Panel 12/16/17 Range/Units 06:54 Sodium 140 (137-145) mmol/L Potassium 5.0 (3.5-5.1) mmol/L Chloride 102 (98-107) mmol/L Carbon Dioxide 33 H (22-30) mmol/L BUN 26 H (7-17) mg/dL Creatinine 0.97 (0.52-1.04) mg/dL Glucose 135 H (74-99) mg/dL Calcium 9.1 (8.4-10.2) mg/dL AST 11 L (14-36) U/L ALT 23 (9-52) U/L Alkaline Phosphatase 32 L (38-126) U/L Total Protein 5.2 L (6.3-8.2) g/dL Albumin 3.1 L (3.5-5.0) g/dL Current Medications Generic Name Dose Route Start Last Admin Trade Name Freq PRN Reason Stop Dose Admin Albuterol/Ipratropium 3 ml 12/14/17 23:58 Duoneb 0.5 Mg-3 Mg/3 Ml Soln INHALATION RT-QID PRN Shortness Of Breath Atorvastatin Calcium 40 mg 12/14/17 23:45 12/15/17 21:40 Lipitor PO 40 mg HS JAVIER Administration Clonazepam 1 mg 12/14/17 23:45 12/16/17 08:01 Klonopin PO 1 mg TID JAVIER Administration Insulin Aspart 0 unit 12/15/17 07:30 12/16/17 08:02 Novolog SQ 2 unit ACHS JAVIER Administration Protocol Insulin Detemir 50 unit 12/16/17 21:00 Levemir SQ HS JAVIER Nitroglycerin 0.4 mg 12/14/17 23:58 Nitrostat SUBLINGUAL Q5M PRN Chest Pain Nystatin 1 applic 12/15/17 16:00 12/16/17 08:02 Mycostatin Powder TOPICAL 1 applic TID JAVIER Administration Pantoprazole Sodium 40 mg 12/15/17 11:00 12/16/17 08:01 Protonix IVP 40 mg BID JAVIER Administration Tramadol HCl 50 mg 12/15/17 00:15 12/16/17 00:34 Ultram PO 50 mg TID PRN Administration Pain Intake and Output 12/15/17 12/16/17 12/16/17 22:59 06:59 14:59 Other: Voiding Method Bedside Commode Bedside Commode Bedside Commode Diaper Diaper Diaper Incontinent Incontinent # Voids 3 4 12/16/17 06:54 12/16/17 06:54 Assessment and Plan Assessment: Assessment #1 GI bleeding of unknown etiology #2 CAD and prior LAD stenting #3 morbid obesity #4 hypertension #5 dyslipidemia Plan #1 continue the current medical regimen #2 the patient is going to have an endoscopy #3 follow-up with the patient
[2017-12-16 12:03] VITALS: BMI 62.3
[2017-12-16 12:08] LABS: Glucose,Whole Blood 283 mg/dL (75-99)
--- NOTE | 2017-12-16 12:20 | P.PN ---
Progress Note - Text Progress Note Date: 12/16/17 The primary service is requesting a colonoscopy really performed this admission since she needs to go for a cardiac catheterization. We'll schedule this for tomorrow.
[2017-12-16] MEDS: FUROSEMIDE 40 MG TAB PO SCH (16:58)
[2017-12-16 17:18] LABS: Glucose,Whole Blood 220 mg/dL (75-99)
--- NOTE | 2017-12-16 17:34 | PN ---
PROGRESS NOTE She has had no further blood per rectum. She is lying in bed and has been seen by Cardiology and Surgery. On physical examination: Blood pressure 177/72, respiratory rate of 18, pulse rate of 75, temperature 97.9, O2 saturation on room air is 98%. HEENT is unremarkable. Chest is clear. Cardiovascular system is S1, S2. Abdomen is soft. There is no edema. Labs reveal a white count of 9.3, hemoglobin of 10.6, sodium 140, potassium 5, chloride 102, bicarb 33, BUN 26, creatinine 0.97. IMPRESSION: 1. Acute GI bleed. 2. Coronary artery disease with critical lesion for which she will require angioplasty in the near future. 3. Hypertension. 4. Chronic pain secondary to neuropathy. At this point in time after discussions with the software integrator, it was thought to be safer to perform a colonoscopy to make sure she does not have any active source of bleeding as she may require anti-platelet and anticoagulation with her imminent cardiac cath with possible stent placement. We will watch her hemoglobin closely. Continue on her current medications. Depending on how she does we shall make further changes to her care. MMODL / IJN: [id number] /
[2017-12-16 20:20] LABS: Glucose,Whole Blood 218 mg/dL (75-99)
[2017-12-16] MEDS ORDERED: INSULIN DETEMIR 100 UNIT/ML 10 ML VIAL SQ SCH (21:00)
[2017-12-16] MEDS: METOPROLOL TARTRATE 25 MG TAB PO SCH (21:12)
[2017-12-16] MEDS: DIVALPROEX 250 MG TABLET.DR PO SCH (21:12)
[2017-12-16] MEDS: ATORVASTATIN 40 MG TAB PO SCH (21:12)
[2017-12-17 06:29] LABS: Glucose,Whole Blood 163 mg/dL (75-99)
[2017-12-17] MEDS: INSULIN ASPART 100 UNIT/ML 1 ML 10 ML VIAL SQ SCH ×4 (06:29→21:02)
[2017-12-17 06:52] LABS: Basophils % (A) 0 %; Eosinophils # (A) 0.2 k/uL (0-0.7); Eosinophils % (A) 2 %; HCT 32.4 % (34.0-46.0); HGB 10.6 gm/dL (11.4-16.0); Lymphocytes # (A) 1.8 k/uL (1.0-4.8); Lymphocytes % (A) 23 %; MCH 33.6 pg (25.0-35.0); MCHC 32.7 g/dL (31.0-37.0); MCV 102.7 fL (80.0-100.0); Macrocytosis Slight; Mean Platelet Volume 6.8; Monocytes # (A) 0.6 k/uL (0-1.0); Monocytes % (A) 8 %; Neutrophils # (A) 5.2 k/uL (1.3-7.7); Neutrophils % (A) 66 %; Platelet Count 162 k/uL (150-450); RBC 3.15 m/uL (3.80-5.40); RDW 12.8 % (11.5-15.5); WBC 7.9 k/uL (3.8-10.6)
[2017-12-17 07:09] LABS: Albumin 2.8 g/dL (3.5-5.0); Calcium 8.9 mg/dL (8.4-10.2); Potassium 4.7 mmol/L (3.5-5.1); Total Bilirubin 0.5 mg/dL (0.2-1.3); Total Protein 4.8 g/dL (6.3-8.2)
--- NOTE | 2017-12-17 07:57 | P.PN ---
Subjective Progress Note Date: 12/17/17 This is a pleasant 72-year-old female patient who I follow in the office as an outpatient was known history of coronary artery disease and prior stenting of the LAD and known severe disease involving the left circumflex as well as morbid obesity, hypertension, dyslipidemia, presented to the hospital complaining of blood in the stool. The patient did have to large bowel movement with significant amount of blood. No abdominal discomfort. No chest pain or chest discomfort at this point. No dizziness or lightheadedness. And no syncope. She continues to be hemodynamically stable. The hemoglobin was around 10.5 and it does seem to be her baseline. The patient was seen by a surgeon who recommended proceeding with endoscopy. The plan initially was to perform an endoscopy as an outpatient but I would recommend getting the endoscopy performed as an inpatient because the patient is scheduled to undergo a heart catheterization with possible coronary artery stenting. If the endoscopy revealed any evidence off actively bleeding I would hold on proceeding with a heart catheterization at this point. If not then we can pursue and scheduled the patient to undergo the procedure. On follow-up with the patient today, she denies having any chest pain or discomfort but she continues to have mild abdominal discomfort. No nausea or vomiting. The plan is to proceed with an endoscopy. Objective - Vital Signs Vital signs: Vital Signs Temp 98.1 F 12/17/17 06:09 Pulse 64 12/17/17 06:09 Resp 22 12/17/17 06:09 BP 129/66 12/17/17 06:09 Pulse Ox 97 12/17/17 06:09 Intake & Output 12/16/17 12/17/17 12/17/17 18:59 06:59 18:59 Intake Total 500 360 Output Total 1 Balance 499 360 Weight 149.685 kg Intake: Oral 500 360 Output: Emesis 1 Other: Voiding Method Bedside Commode Bedside Commode Diaper Diaper # Voids 3 3 - Constitutional General appearance: Present: no acute distress - Respiratory Respiratory: bilateral: CTA - Cardiovascular Rhythm: regular Heart sounds: normal: S1, S2 - Labs CBC & Chem 7: 12/17/17 06:08 12/17/17 06:08 Labs: Abnormal Lab Results - Last 24 Hours (Table) 12/16/17 12/16/17 12/16/17 Range/Units 06:54 12:07 17:16 RBC (3.80-5.40) m/uL Hgb (11.4-16.0) gm/dL Hct (34.0-46.0) % MCV (80.0-100.0) fL Carbon Dioxide 33 H (22-30) mmol/L BUN 26 H (7-17) mg/dL Glucose 135 H (74-99) mg/dL POC Glucose (mg/dL) 283 H 220 H (75-99) mg/dL AST 11 L (14-36) U/L Alkaline Phosphatase 32 L (38-126) U/L Total Protein 5.2 L (6.3-8.2) g/dL Albumin 3.1 L (3.5-5.0) g/dL 12/16/17 12/17/17 12/17/17 Range/Units 20:13 06:08 06:08 RBC 3.15 L (3.80-5.40) m/uL Hgb 10.6 L (11.4-16.0) gm/dL Hct 32.4 L (34.0-46.0) % MCV 102.7 H (80.0-100.0) fL Carbon Dioxide 33 H (22-30) mmol/L BUN 19 H (7-17) mg/dL Glucose 153 H (74-99) mg/dL POC Glucose (mg/dL) 218 H (75-99) mg/dL AST 11 L (14-36) U/L Alkaline Phosphatase 29 L (38-126) U/L Total Protein 4.8 L (6.3-8.2) g/dL Albumin 2.8 L (3.5-5.0) g/dL 12/17/17 Range/Units 06:23 RBC (3.80-5.40) m/uL Hgb (11.4-16.0) gm/dL Hct (34.0-46.0) % MCV (80.0-100.0) fL Carbon Dioxide (22-30) mmol/L BUN (7-17) mg/dL Glucose (74-99) mg/dL POC Glucose (mg/dL) 163 H (75-99) mg/dL AST (14-36) U/L Alkaline Phosphatase (38-126) U/L Total Protein (6.3-8.2) g/dL Albumin (3.5-5.0) g/dL Assessment and Plan Assessment: Assessment #1 GI bleeding of unknown etiology #2 CAD and prior LAD stenting #3 morbid obesity #4 hypertension #5 dyslipidemia Plan #1 continue the current medical regimen #2 the patient is going to have an endoscopy #3 follow-up with the patient
[2017-12-17] MEDS: OXYBUTYNIN XL 5 MG TAB.ER.24 PO SCH (08:31)
[2017-12-17] MEDS: PANTOPRAZOLE 40 MG/10 ML VIAL IVP SCH ×2 (08:31→21:05)
[2017-12-17] MEDS: FUROSEMIDE 40 MG TAB PO SCH ×2 (08:32→15:46)
[2017-12-17] MEDS: DIVALPROEX 250 MG TABLET.DR PO SCH ×2 (08:32→21:02)
[2017-12-17] MEDS: clonazePAM 1 MG TAB PO SCH ×3 (08:32→21:07)
[2017-12-17] MEDS: METOPROLOL TARTRATE 25 MG TAB PO SCH ×2 (08:32→21:05)
[2017-12-17] MEDS: NYSTATIN 100,000 UNIT/GM POWD 15 GM TOPICAL SCH ×3 (08:36→21:06)
[2017-12-17] MEDS ORDERED: CITALOPRAM HYDROBROMIDE 20 MG TAB PO SCH (09:00)
[2017-12-17] MEDS ORDERED: LISINOPRIL 20 MG TAB PO SCH (09:00)
[2017-12-17] MEDS ORDERED: ISOSORBIDE MONONITRATE ER 60 MG TAB.ER.24H PO SCH (09:00)
[2017-12-17] MEDS ORDERED: GABAPENTIN 100 MG CAP PO SCH (09:00)
[2017-12-17] MEDS ORDERED: PANTOPRAZOLE 40 MG TABLET PO SCH (09:00)
[2017-12-17] MEDS ORDERED: FERROUS SULFATE 325 MG TAB PO SCH (09:00)
[2017-12-17] MEDS ORDERED: CHOLECALCIFEROL 1,000 UNIT TAB PO SCH (09:00)
[2017-12-17] MEDS ORDERED: ASPIRIN 81 MG PO SCH (09:00)
[2017-12-17] MEDS ORDERED: PEG 3350-NA SULF,BICARB,CL/KCL 4,000 ML BOTTLE PO ONE (11:00)
[2017-12-17 11:24] LABS: Glucose,Whole Blood 184 mg/dL (75-99)
[2017-12-17 13:35] LABS: Glucose,Whole Blood 173 mg/dL (75-99)
[2017-12-17] MEDS: traMADol 50 MG TAB PO PRN (14:16)
--- NOTE | 2017-12-17 15:32 | P.PN ---
Progress Note - Text Progress Note Date: 12/17/17 It is requested the patient undergo a colonoscopy so that planning can be made for cardiac catheterization. Unfortunately the orders from yesterday for the patient's colonoscopy prep did not save. She will be prepped today for colonoscopy tomorrow. This was discussed with the patient and her family.
[2017-12-17 16:39] LABS: Glucose,Whole Blood 281 mg/dL (75-99)
[2017-12-17 20:05] LABS: Glucose,Whole Blood 241 mg/dL (75-99)
[2017-12-17] MEDS: ATORVASTATIN 40 MG TAB PO SCH (21:02)
[2017-12-17] MEDS: INSULIN DETEMIR 100 UNIT/ML 10 ML VIAL SQ SCH (21:07)
--- NOTE | 2017-12-18 00:14 | PN ---
PROGRESS NOTE SUBJECTIVE: Surgery saw her today for possible colonoscopy prior to cardiac catheterization. Cardiology will do angioplasty over the next week. Cardiovascular S1, S2. Lungs are clear. GI is increased bowel sounds x4. Hematology negative Homans. Psych: Fair mood and affect. ASSESSMENT: 1. Gastrointestinal bleed. 2. Coronary artery disease. 3. History of congestive heart failure. 4. History of insulin-dependent diabetes mellitus. Prep for colonoscopy to be done tomorrow, then possible angioplasty. Cardiology and surgeon has seen the patient. Dr. Guy apparently will perform the colonoscopy in the morning. MMODL / IJN: [id number] /
[2017-12-18] MEDS: traMADol 50 MG TAB PO PRN ×2 (00:59→20:50)
[2017-12-18] MEDS ORDERED: DEXTROSE 50%-WATER 50 ML SYRINGE IVP ONE (05:32)
[2017-12-18 05:40] LABS: Glucose,Whole Blood 56 mg/dL (75-99)
[2017-12-18 05:46] LABS: Glucose,Whole Blood 163 mg/dL (75-99)
[2017-12-18 06:43] LABS: Glucose,Whole Blood 114 mg/dL (75-99)
[2017-12-18 07:58] LABS: Albumin 2.6 g/dL (3.5-5.0); Calcium 8.6 mg/dL (8.4-10.2); Potassium 4.4 mmol/L (3.5-5.1); Total Bilirubin 0.4 mg/dL (0.2-1.3); Total Protein 4.6 g/dL (6.3-8.2)
[2017-12-18] MEDS: INSULIN ASPART 100 UNIT/ML 1 ML 10 ML VIAL SQ SCH ×4 (07:58→20:49)
[2017-12-18] MEDS: FUROSEMIDE 40 MG TAB PO SCH ×2 (08:01→18:04)
[2017-12-18 08:02] LABS: Basophils # (A) 0.1 k/uL (0-0.2); Basophils % (A) 1 %; Eosinophils # (A) 0.2 k/uL (0-0.7); Eosinophils % (A) 2 %; HCT 32.3 % (34.0-46.0); HGB 10.5 gm/dL (11.4-16.0); Lymphocytes # (A) 1.8 k/uL (1.0-4.8); Lymphocytes % (A) 20 %; MCH 34.1 pg (25.0-35.0); MCHC 32.7 g/dL (31.0-37.0); MCV 104.4 fL (80.0-100.0); Macrocytosis Slight; Mean Platelet Volume 6.9; Monocytes # (A) 0.8 k/uL (0-1.0); Monocytes % (A) 9 %; Neutrophils % (A) 67 %; Platelet Count 176 k/uL (150-450); RBC 3.09 m/uL (3.80-5.40); RDW 12.8 % (11.5-15.5); WBC 8.9 k/uL (3.8-10.6)
[2017-12-18] MEDS: PANTOPRAZOLE 40 MG/10 ML VIAL IVP SCH ×2 (08:04→20:50)
[2017-12-18] MEDS: GABAPENTIN 100 MG CAP PO SCH (08:05)
[2017-12-18] MEDS: CITALOPRAM HYDROBROMIDE 20 MG TAB PO SCH (08:05)
[2017-12-18] MEDS: OXYBUTYNIN XL 5 MG TAB.ER.24 PO SCH ×3 (08:05→18:06)
[2017-12-18] MEDS: ISOSORBIDE MONONITRATE ER 60 MG TAB.ER.24H PO SCH (08:06)
[2017-12-18] MEDS: LISINOPRIL 20 MG TAB PO SCH (08:06)
[2017-12-18] MEDS: DIVALPROEX 250 MG TABLET.DR PO SCH ×2 (08:07→20:49)
[2017-12-18] MEDS: clonazePAM 1 MG TAB PO SCH ×3 (08:08→21:03)
[2017-12-18] MEDS ORDERED: ASPIRIN 81 MG PO SCH (09:00)
[2017-12-18 11:04] LABS: Glucose,Whole Blood 83 mg/dL (75-99)
[2017-12-18] MEDS ORDERED: PROPOFOL 10 MG/ML 20 ML VIAL IV ONE (12:35)
[2017-12-18] MEDS ORDERED: LACTATED RINGERS 1,000 ML IV ONE ×2 (12:39)
--- NOTE | 2017-12-18 13:18 | P.OP ---
Date of Procedure: 12/18/17 Preoperative Diagnosis: GI bleeding Postoperative Diagnosis: GI bleeding, colon polyps, internal hemorrhoids Procedure(s) Performed: colonoscopy Anesthesia: MAC Surgeon: Cori Guy Pathology: none sent Condition: stable Disposition: PACU Indications for Procedure: The patient presented with GI bleeding and need for cardiac procedure. We need to rule out pathology in case the patient needs anticoagulation. Operative Findings: The patient's taken to the endoscopy suite where colonoscope is passed per rectum to cecum. There is some liquid material which is able to be irrigated and aspirated. She has evidence of several polyps that are centimeter smaller in size. There is one in the ascending colon, one in the proximal transverse colon. No other in the distal transverse colon, and one in the descending colon which is about a centimeter in size. None of these appeared to been acutely bleeding. There is no evidence of blood in the colon. No evidence of diverticular change. No evidence of ischemic change. She does have some internal hemorrhoids with some friable changes of the overlying mucosa which were likely cause of bleeding. No active bleeding at this time. She tolerated the procedure without difficulty and was taken recovery room in satisfactory condition. The polyps were not removed so she can proceed with her cardiac procedure. It should be safe to do the colonoscopy within a year as these were all subcentimeter.
[2017-12-18 13:54] LABS: Glucose,Whole Blood 67 mg/dL (75-99)
[2017-12-18] MEDS: METOPROLOL TARTRATE 25 MG TAB PO SCH ×2 (14:16→20:50)
[2017-12-18] MEDS: FERROUS SULFATE 325 MG TAB PO SCH (14:17)
[2017-12-18] MEDS: ASPIRIN 81 MG PO SCH (14:17)
[2017-12-18] MEDS: CHOLECALCIFEROL 1,000 UNIT TAB PO SCH (14:18)
[2017-12-18] MEDS: NYSTATIN 100,000 UNIT/GM POWD 15 GM TOPICAL SCH ×3 (14:19→21:03)
--- NOTE | 2017-12-18 15:37 | P.PN ---
Subjective Patient was seen and examined resting comfortably in bed status post colonoscopy. Past medical history significant for coronary artery disease with stenting of the LAD and known severe disease involving the ostium of the left circumflex, morbid obesity, hypertension and dyslipidemia. She presents to the hospital complaining of blood in the stool. Colonoscopy was completed today and showed no signs of acute bleed with evidence of hemorrhoids. She denies symptoms of chest pain, shortness of breath, dizziness or palpitations. Blood pressure 99/46 heart rate 61 afebrile maintaining oxygen saturation on nasal cannula. Laboratory data reviewed, hemoglobin 10.5, platelets 176, sodium 139, potassium 4.4, creatinine 1.16, NT proBNP 1390. Currently maintained on aspirin 81 mg daily, atorvastatin 40 mg daily, Lasix 40 mg twice a day, Imdur 60 mg daily, lisinopril 20 mg daily and metoprolol 25 mg twice a day. Objective - Vital Signs Vital signs: Vital Signs Temp 97.5 F L 12/18/17 13:00 Pulse 61 12/18/17 13:00 Resp 16 12/18/17 13:00 BP 99/46 12/18/17 13:00 Pulse Ox 99 12/18/17 13:00 Intake & Output 12/17/17 12/18/17 12/18/17 18:59 06:59 18:59 Intake Total 590 240 50 Balance 590 240 50 Weight 149.685 kg Intake: IV 50 Oral 590 240 Other: Voiding Method Bedside Commode Bedside Commode Bedside Commode Diaper Diaper Diaper Incontinent Incontinent # Voids 3 1 2 # Bowel Movements 1 2 - Exam GENERAL: Well-appearing, well-nourished and in no acute distress. Morbidly obese. NECK: Supple without JVD or thyromegaly. LUNGS: Breath sounds clear to auscultation bilaterally. Respiration equal and unlabored. No wheezes, rales or rhonchi. Diminished bilaterally. HEART: Regular rate and rhythm without murmurs, rubs or gallops. S1 and S2 heard. EXTREMITIES: Normal range of motion, no edema. No clubbing or cyanosis. Peripheral pulses intact. - Labs CBC & Chem 7: 12/18/17 06:26 12/18/17 06:26 Labs: Abnormal Lab Results - Last 24 Hours (Table) 12/17/17 12/17/17 12/18/17 Range/Units 16:36 20:04 05:29 RBC (3.80-5.40) m/uL Hgb (11.4-16.0) gm/dL Hct (34.0-46.0) % MCV (80.0-100.0) fL Carbon Dioxide (22-30) mmol/L BUN (7-17) mg/dL Creatinine (0.52-1.04) mg/dL Glucose (74-99) mg/dL POC Glucose (mg/dL) 281 H 241 H 56 L (75-99) mg/dL AST (14-36) U/L Alkaline Phosphatase (38-126) U/L Total Protein (6.3-8.2) g/dL Albumin (3.5-5.0) g/dL 12/18/17 12/18/17 12/18/17 Range/Units 05:44 06:26 06:26 RBC 3.09 L (3.80-5.40) m/uL Hgb 10.5 L (11.4-16.0) gm/dL Hct 32.3 L (34.0-46.0) % MCV 104.4 H (80.0-100.0) fL Carbon Dioxide 38 H (22-30) mmol/L BUN 21 H (7-17) mg/dL Creatinine 1.16 H (0.52-1.04) mg/dL Glucose 113 H (74-99) mg/dL POC Glucose (mg/dL) 163 H (75-99) mg/dL AST 11 L (14-36) U/L Alkaline Phosphatase 29 L (38-126) U/L Total Protein 4.6 L (6.3-8.2) g/dL Albumin 2.6 L (3.5-5.0) g/dL 12/18/17 12/18/17 Range/Units 06:42 13:52 RBC (3.80-5.40) m/uL Hgb (11.4-16.0) gm/dL Hct (34.0-46.0) % MCV (80.0-100.0) fL Carbon Dioxide (22-30) mmol/L BUN (7-17) mg/dL Creatinine (0.52-1.04) mg/dL Glucose (74-99) mg/dL POC Glucose (mg/dL) 114 H 67 L (75-99) mg/dL AST (14-36) U/L Alkaline Phosphatase (38-126) U/L Total Protein (6.3-8.2) g/dL Albumin (3.5-5.0) g/dL Assessment and Plan Assessment: ASSESSMENT Acute GI bleeding of unknown etiology, hemorrhoids noted on colonoscopy Coronary artery disease status post stenting of the LAD with known ostial lesion of the circumflex Hypertension Dyslipidemia Diabetes mellitus Morbid obesity Obstructive sleep apnea PLAN Stable from a cardiac perspective. Coronary intervention scheduled for January 19. This has been communicated to the patient. The office will be in contact with her. We will continue to follow as needed, please refer to call if further questions or concerns. Nurse Practitioner note has been reviewed, I agree with a documented findings and plan of care. Patient was seen and examined.
[2017-12-18 17:05] LABS: Glucose,Whole Blood 89 mg/dL (75-99)
[2017-12-18 20:00] LABS: Glucose,Whole Blood 137 mg/dL (75-99)
--- NOTE | 2017-12-18 20:06 | PN ---
PROGRESS NOTE SUBJECTIVE: This patient is a 72-year-old white female who was admitted to the hospital with GI bleeding. She had a scope today. Her hemoglobin is 10.5 today. BUN is 21, creatinine 1.16. She was cleared by GI for surgery for heart stent. She is status post colonoscopy today. No signs of acute bleeding on colonoscopy with evidence of hemorrhoids. Attempt maximum cardiac medication treatment at this point. CARDIOVASCULAR: S1, S2. LUNGS: Clear. GI: Soft. Hemoglobin stable. Labs as mentioned above. ASSESSMENT: 1. Internal hemorrhoids. 2. Acute gastrointestinal bleeding. 3. Coronary artery disease, status post left anterior descending coronary artery stent. 4. Circumflex has ostial lesion with previous stent. 5. Hypertension. 6. Dyslipidemia. 7. Diabetes mellitus. 8. Morbid obesity. 9. Obstructive sleep apnea. January 19 is when she is going to have her stent placed. She will possibly be able to be discharged tomorrow, as her hemoglobin stabilized and no signs of acute bleeding were seen. MMODL / IJN: [id number] /
[2017-12-18] MEDS: ATORVASTATIN 40 MG TAB PO SCH (20:49)
[2017-12-18] MEDS: INSULIN DETEMIR 100 UNIT/ML 10 ML VIAL SQ SCH (20:49)
[2017-12-19 02:01] LABS: Glucose,Whole Blood 259 mg/dL (75-99)
[2017-12-19] MEDS: traMADol 50 MG TAB PO PRN ×2 (03:54→23:06)
[2017-12-19 06:55] LABS: Glucose,Whole Blood 163 mg/dL (75-99)
[2017-12-19 07:52] LABS: Basophils % (A) 1 %; Eosinophils # (A) 0.2 k/uL (0-0.7); Eosinophils % (A) 2 %; HCT 30.2 % (34.0-46.0); HGB 9.7 gm/dL (11.4-16.0); Lymphocytes # (A) 1.7 k/uL (1.0-4.8); Lymphocytes % (A) 24 %; MCH 33.6 pg (25.0-35.0); MCHC 32.2 g/dL (31.0-37.0); MCV 104.1 fL (80.0-100.0); Macrocytosis Slight; Mean Platelet Volume 7.2; Monocytes # (A) 0.7 k/uL (0-1.0); Monocytes % (A) 10 %; Neutrophils # (A) 4.3 k/uL (1.3-7.7); Neutrophils % (A) 61 %; Platelet Count 167 k/uL (150-450); RDW 12.8 % (11.5-15.5)
[2017-12-19] MEDS: INSULIN ASPART 100 UNIT/ML 1 ML 10 ML VIAL SQ SCH ×4 (07:53→21:35)
[2017-12-19 08:08] LABS: Albumin 2.7 g/dL (3.5-5.0); Calcium 8.6 mg/dL (8.4-10.2); Potassium 4.6 mmol/L (3.5-5.1); Total Bilirubin 0.4 mg/dL (0.2-1.3); Total Protein 4.6 g/dL (6.3-8.2)
[2017-12-19] MEDS: CHOLECALCIFEROL 1,000 UNIT TAB PO SCH (09:51)
[2017-12-19] MEDS: ASPIRIN 81 MG PO SCH (09:51)
[2017-12-19] MEDS: clonazePAM 1 MG TAB PO SCH ×3 (09:52→21:34)
[2017-12-19] MEDS: CITALOPRAM HYDROBROMIDE 20 MG TAB PO SCH (09:52)
[2017-12-19] MEDS: FUROSEMIDE 40 MG TAB PO SCH ×2 (09:53→17:15)
[2017-12-19] MEDS: FERROUS SULFATE 325 MG TAB PO SCH (09:53)
[2017-12-19] MEDS: GABAPENTIN 100 MG CAP PO SCH (09:53)
[2017-12-19] MEDS: DIVALPROEX 250 MG TABLET.DR PO SCH ×2 (09:53→21:35)
[2017-12-19] MEDS: LISINOPRIL 20 MG TAB PO SCH (09:54)
[2017-12-19] MEDS: ISOSORBIDE MONONITRATE ER 60 MG TAB.ER.24H PO SCH (09:54)
[2017-12-19] MEDS: METOPROLOL TARTRATE 25 MG TAB PO SCH ×2 (09:54→21:34)
[2017-12-19] MEDS: NYSTATIN 100,000 UNIT/GM POWD 15 GM TOPICAL SCH ×3 (09:55→21:34)
[2017-12-19] MEDS: OXYBUTYNIN XL 5 MG TAB.ER.24 PO SCH (09:56)
[2017-12-19] MEDS: PANTOPRAZOLE 40 MG/10 ML VIAL IVP SCH ×2 (09:57→10:37)
[2017-12-19 11:47] LABS: Glucose,Whole Blood 160 mg/dL (75-99)
[2017-12-19] MEDS: PANTOPRAZOLE 40 MG TABLET PO SCH ×2 (12:16→17:18)
[2017-12-19 17:07] LABS: Glucose,Whole Blood 220 mg/dL (75-99)
[2017-12-19] MEDS: IPRATROPIUM-ALBUTEROL 3 ML NEB INHALATION PRN (19:06)
[2017-12-19 20:16] LABS: Glucose,Whole Blood 215 mg/dL (75-99)
[2017-12-19] MEDS: ATORVASTATIN 40 MG TAB PO SCH (21:34)
[2017-12-19] MEDS: INSULIN DETEMIR 100 UNIT/ML 10 ML VIAL SQ SCH (21:35)
--- NOTE | 2017-12-19 22:07 | PN ---
PROGRESS NOTE She appears to be improved today. Sitting up in a chair. Hemoglobin stable at 9.7, BUN 37, creatinine 1.25. Sugars in the mid 100s to low 200s. Albumin is low at 2.7. She is very weak and she is unable to ambulate. She is scheduled for heart catheterization with stent placement 2 weeks from now. No signs of GI bleeding have been found. She will be sent to a [facility] tomorrow to follow up for heart catheterization with stent placement 2 weeks from now. CARDIOVASCULAR: S1-S2. LUNGS: Clear. GI: Soft. ENDOCRINE: BMI is over 40. ASSESSMENT: 1. Anemia. 2. Coronary artery disease. 3. Gastrointestinal bleed with no signs of any bleeding on esophagogastroduodenoscopy. Will check CBC in the morning. Discharge to [facility] for future treatment. Follow up in next 24-48 hours. MMODL / IJN: [id number] /
[2017-12-20 06:46] LABS: Glucose,Whole Blood 197 mg/dL (75-99)
[2017-12-20 07:09] LABS: Basophils % (A) 1 %; Eosinophils # (A) 0.2 k/uL (0-0.7); Eosinophils % (A) 2 %; HCT 29.4 % (34.0-46.0); HGB 9.7 gm/dL (11.4-16.0); Lymphocytes # (A) 1.9 k/uL (1.0-4.8); Lymphocytes % (A) 30 %; MCH 34.6 pg (25.0-35.0); MCHC 33.1 g/dL (31.0-37.0); MCV 104.3 fL (80.0-100.0); Macrocytosis Slight; Mean Platelet Volume 7.1; Monocytes # (A) 0.7 k/uL (0-1.0); Monocytes % (A) 10 %; Neutrophils # (A) 3.5 k/uL (1.3-7.7); Neutrophils % (A) 54 %; Platelet Count 171 k/uL (150-450); RBC 2.81 m/uL (3.80-5.40); RDW 12.7 % (11.5-15.5); WBC 6.3 k/uL (3.8-10.6)
[2017-12-20 07:28] LABS: Albumin 2.8 g/dL (3.5-5.0); Calcium 8.7 mg/dL (8.4-10.2); Potassium 4.7 mmol/L (3.5-5.1); Total Bilirubin 0.4 mg/dL (0.2-1.3); Total Protein 4.8 g/dL (6.3-8.2)
[2017-12-20] MEDS: INSULIN ASPART 100 UNIT/ML 1 ML 10 ML VIAL SQ SCH ×4 (08:33→20:35)
[2017-12-20] MEDS: clonazePAM 1 MG TAB PO SCH ×3 (08:33→21:36)
[2017-12-20] MEDS: DIVALPROEX 250 MG TABLET.DR PO SCH ×2 (08:34→20:35)
[2017-12-20] MEDS: CHOLECALCIFEROL 1,000 UNIT TAB PO SCH (08:34)
[2017-12-20] MEDS: PANTOPRAZOLE 40 MG TABLET PO SCH ×2 (08:34→17:29)
[2017-12-20] MEDS: ASPIRIN 81 MG PO SCH (08:34)
[2017-12-20] MEDS: LISINOPRIL 20 MG TAB PO SCH (08:35)
[2017-12-20] MEDS: FUROSEMIDE 40 MG TAB PO SCH ×2 (08:35→17:29)
[2017-12-20] MEDS: GABAPENTIN 100 MG CAP PO SCH (08:35)
[2017-12-20] MEDS: METOPROLOL TARTRATE 25 MG TAB PO SCH ×2 (08:35→20:35)
[2017-12-20] MEDS: FERROUS SULFATE 325 MG TAB PO SCH (08:35)
[2017-12-20] MEDS: ISOSORBIDE MONONITRATE ER 60 MG TAB.ER.24H PO SCH (08:35)
[2017-12-20] MEDS: CITALOPRAM HYDROBROMIDE 20 MG TAB PO SCH (08:35)
[2017-12-20] MEDS: OXYBUTYNIN XL 5 MG TAB.ER.24 PO SCH ×2 (08:36→08:37)
[2017-12-20] MEDS: NYSTATIN 100,000 UNIT/GM POWD 15 GM TOPICAL SCH ×3 (08:36→20:38)
[2017-12-20] MEDS: IPRATROPIUM-ALBUTEROL 3 ML NEB INHALATION PRN ×2 (08:54→16:23)
[2017-12-20 11:13] LABS: Glucose,Whole Blood 367 mg/dL (75-99)
--- NOTE | 2017-12-20 13:22 | CDI ---
Last Revision, February 2017 Documentation Clarification Form Date: 12/20/2017 12:53:47 PM From: Marci Beckett RN, CCDS Admit Date: 12/17/2017 10:19:00 AM Patient Name: Carla Garvin Visit Number: [id number] Discharge Date: ATTENTION: The Clinical Documentation Specialists (CDI) and [facility] Coding Staff appreciate your assistance in clarifying documentation. Please respond to the clarification below the line at the bottom and electronically sign. The CDI & [facility] Coding staff will review the response and follow-up if needed. Please note: Queries are made part of the Legal Health Record. If you have any questions, please contact the author of this message via ITS. Chris Olivares MD A diagnosis of anemia lacks specificity to accurately reflect your patients severity of condition and clarification is needed. History/Risk Factors: Asthma, CAD, diabetes mellitus, Sleep apnea, COPD, Clinical indicators: Present with complaints of bright red blood per rectum. CT of the abdomen showed no acute process Colonscopy negative for acute bleed, hemorrhoids Hemoglobin: 10.4, 10.6, 9.7 Hematocrit: 33.6 32.4 29.4 Treatment: monitoring labs, Feosol PO PO In order to capture the severity of condition, please clarify the type of anemia and etiology if known: Acute blood loss anemia Acute on chronic blood loss anemia Chronic blood loss anemia Iron deficiency anemia Unable to determine Other, please specify Please continue to document in your progress notes and discharge summary in order to capture severity of illness and risk of mortality. Include clinical findings that support your diagnosis. MTDD
--- NOTE | 2017-12-20 15:23 | DS ---
DISCHARGE SUMMARY DISCHARGE MEDICATIONS: 1. Nystatin powder application t.i.d. 2. Klonopin 1 mg t.i.d.. 3. Celexa 40 mg daily. 4. Ferrous sulfate 325 daily. 5. Tramadol 50 t.i.d. 6. :Lisinopril 20 daily/. 7. Nitroglycerin sublingual p.r.n. 8. Lipitor 40 daily. 9. Depakote 250 b.i.d. 10.Lasix 40 b.i.d. 11.Protonix 40 mg daily. 12.Lopressor 25 b.i.d. 13.Imdur 60 mg daily. 14.Neurontin 100 mg daily. 15.Vitamin D3 two thousand units daily. 16.Aspirin 81 mg daily. 17.Detrol LA 4 mg. 18.Lantus 50 units subcu q.h.s. 19.DuoNeb q.i.d. 20.Prednisone 20 mg daily. 21.Accu-Chek protocol a.c. and at bedtime. 22.Prednisone 20 daily. CONDITION: Stable. PROGNOSIS: Guarded. Ambulate as tolerated. DISCHARGE DIAGNOSES: 1. Coronary artery disease of angina requiring cardiac stent 2 weeks. 2. Gastrointestinal bleed of unclear etiology, severe anemia of unclear etiology. 3. Hypertension. 4. Diastolic congestive heart failure. 5. Seizure disorder, mood disorder. 6. Insulin-dependent diabetes mellitus. 7. Osteoarthritis. 8. Morbid obesity. 9. Gait intolerance. 10.Lumbar disc disease. HOSPITAL COURSE OF EVENTS: This is a white female who came in with a GI bleeding, was seen by Surgery and when the EGD did not show any signs of significant bleeding, hemoglobin stabilized while in the hospital. Her discharge hemoglobin was 9.7. She has chronic renal disease stage III, BUN of 29, creatinine 1.31. Sugars were in the mid-200s. She was stabilized and sent home in stable condition to follow up as an outpatient. Dr. Yi will follow up with her at [facility] on the [place]. Diet regular. Ambulate as tolerated with Physical Therapy. MMODL / IJN: [id number] /
[2017-12-20 16:56] LABS: Glucose,Whole Blood 244 mg/dL (75-99)
[2017-12-20 20:13] LABS: Glucose,Whole Blood 221 mg/dL (75-99)
[2017-12-20] MEDS: ATORVASTATIN 40 MG TAB PO SCH (20:35)
[2017-12-20] MEDS: INSULIN DETEMIR 100 UNIT/ML 10 ML VIAL SQ SCH (20:36)
[2017-12-20] MEDS: DOCUSATE 100 MG CAP PO SCH (21:36)
[2017-12-20] MEDS: traMADol 50 MG TAB PO PRN (23:47)
[2017-12-21 07:00] LABS: Glucose,Whole Blood 81 mg/dL (75-99)
[2017-12-21] MEDS: INSULIN ASPART 100 UNIT/ML 1 ML 10 ML VIAL SQ SCH ×4 (07:13→20:57)
[2017-12-21] MEDS: OXYBUTYNIN XL 5 MG TAB.ER.24 PO SCH ×2 (08:20→08:29)
[2017-12-21] MEDS: FUROSEMIDE 40 MG TAB PO SCH ×2 (08:30→17:12)
[2017-12-21] MEDS: CITALOPRAM HYDROBROMIDE 20 MG TAB PO SCH (08:30)
[2017-12-21] MEDS: CHOLECALCIFEROL 1,000 UNIT TAB PO SCH (08:30)
[2017-12-21] MEDS: FERROUS SULFATE 325 MG TAB PO SCH (08:30)
[2017-12-21] MEDS: PANTOPRAZOLE 40 MG TABLET PO SCH ×2 (08:30→17:12)
[2017-12-21] MEDS: DIVALPROEX 250 MG TABLET.DR PO SCH ×2 (08:30→20:56)
[2017-12-21] MEDS: METOPROLOL TARTRATE 25 MG TAB PO SCH ×3 (08:30→20:57)
[2017-12-21] MEDS: ASPIRIN 81 MG PO SCH (08:30)
[2017-12-21] MEDS: clonazePAM 1 MG TAB PO SCH ×3 (08:30→21:00)
[2017-12-21] MEDS: ISOSORBIDE MONONITRATE ER 60 MG TAB.ER.24H PO SCH (08:30)
[2017-12-21] MEDS: GABAPENTIN 100 MG CAP PO SCH (08:30)
[2017-12-21] MEDS: traMADol 50 MG TAB PO PRN ×2 (08:30→17:11)
[2017-12-21] MEDS: DOCUSATE 100 MG CAP PO SCH ×2 (08:31→20:56)
[2017-12-21] MEDS: NYSTATIN 100,000 UNIT/GM POWD 15 GM TOPICAL SCH ×3 (08:32→21:00)
[2017-12-21] MEDS: LISINOPRIL 20 MG TAB PO SCH ×2 (08:32→12:08)
[2017-12-21 11:21] LABS: Glucose,Whole Blood 176 mg/dL (75-99)
--- NOTE | 2017-12-21 13:06 | PN ---
PROGRESS NOTE SUBJECTIVE: A 72-year-old white female who was kept another day due to insurance reasons. Her sugars have been mid 200s overnight. Temperature 97.5, pulse 57, on 2 L oxygen 97%, blood pressure is 110/55. CARDIOVASCULAR: S1, S2. ENDOCRINE: BMI is over 40. LUNGS: Show mild scattered wheeze. HEMATOLOGY: 2 to 3+ pedal edema. ASSESSMENT: 1. Unchanged from yesterday. 2. Gastrointestinal bleed. No signs of further bleeding. 3. Chronic obstructive pulmonary disease. 4. Diastolic heart failure. 5. Coronary artery disease with needing a stent. She will get a stent as an outpatient in 2 weeks. She will go to the [facility] in the meantime. MMODL / IJN: [id number] /
[2017-12-21 16:23] LABS: Glucose,Whole Blood 226 mg/dL (75-99)
[2017-12-21 20:19] LABS: Glucose,Whole Blood 229 mg/dL (75-99)
[2017-12-21] MEDS: ATORVASTATIN 40 MG TAB PO SCH (20:56)
[2017-12-21] MEDS ORDERED: INSULIN DETEMIR 100 UNIT/ML 10 ML VIAL SQ SCH (21:00)
[2017-12-22 06:54] LABS: Glucose,Whole Blood 109 mg/dL (75-99)
[2017-12-22] MEDS: traMADol 50 MG TAB PO PRN (07:58)
[2017-12-22] MEDS: INSULIN ASPART 100 UNIT/ML 1 ML 10 ML VIAL SQ SCH ×3 (07:59→17:44)
[2017-12-22] MEDS: OXYBUTYNIN XL 5 MG TAB.ER.24 PO SCH ×2 (08:54→09:07)
[2017-12-22] MEDS: PANTOPRAZOLE 40 MG TABLET PO SCH ×2 (08:57→17:15)
[2017-12-22] MEDS: ASPIRIN 81 MG PO SCH (08:58)
[2017-12-22] MEDS: CHOLECALCIFEROL 1,000 UNIT TAB PO SCH (08:59)
[2017-12-22] MEDS: CITALOPRAM HYDROBROMIDE 20 MG TAB PO SCH (09:00)
[2017-12-22] MEDS: clonazePAM 1 MG TAB PO SCH ×2 (09:01→17:15)
[2017-12-22] MEDS: DIVALPROEX 250 MG TABLET.DR PO SCH (09:01)
[2017-12-22] MEDS: DOCUSATE 100 MG CAP PO SCH (09:02)
[2017-12-22] MEDS: FUROSEMIDE 40 MG TAB PO SCH ×2 (09:03→17:15)
[2017-12-22] MEDS: FERROUS SULFATE 325 MG TAB PO SCH (09:03)
[2017-12-22] MEDS: GABAPENTIN 100 MG CAP PO SCH (09:04)
[2017-12-22] MEDS: ISOSORBIDE MONONITRATE ER 60 MG TAB.ER.24H PO SCH (09:05)
[2017-12-22] MEDS: LISINOPRIL 20 MG TAB PO SCH (09:05)
[2017-12-22] MEDS: METOPROLOL TARTRATE 25 MG TAB PO SCH (09:06)
[2017-12-22 09:59] VITALS: PULSE 61
[2017-12-22 11:27] LABS: Glucose,Whole Blood 195 mg/dL (75-99)
[2017-12-22 12:16] VITALS: BP 131/79; RESP 14; TEMP 97.6
[2017-12-22] MEDS: NYSTATIN 100,000 UNIT/GM POWD 15 GM TOPICAL SCH ×2 (12:42→17:15)
[2017-12-22 17:15] LABS: Glucose,Whole Blood 214 mg/dL (75-99)
== END 2017-12-22 18:15 | DRG 378 ==
LOC: EC 16:33 → 5MS5E 18:52 → OBSVTOIN 12-17 10:19 → 3NMEDONC 12-17 13:13
PROVIDERS: ADMIT Family Medicine; ATTEND Family Medicine
PROC: 0DJD8ZZ Inspection of Lower Intestinal Tract, Via Natural or Artificial Opening Endoscopic (ICD-10-PCS; principal; 2017-12-18 07:45)
DX: K92.2 Gastrointestinal hemorrhage, unspecified (principal); I13.0 Hypertensive heart and chronic kidney disease with heart failure and stage 1 through stage 4 chronic kidney disease, or unspecified chronic kidney disease; I50.32 Chronic diastolic (congestive) heart failure; N17.9 Acute kidney failure, unspecified; D64.9 Anemia, unspecified; E11.22 Type 2 diabetes mellitus with diabetic chronic kidney disease; E11.65 Type 2 diabetes mellitus with hyperglycemia; E66.01 Morbid (severe) obesity due to excess calories; E78.5 Hyperlipidemia, unspecified; E86.0 Dehydration; E87.5 Hyperkalemia; F32.9 Major depressive disorder, single episode, unspecified; F41.9 Anxiety disorder, unspecified; G40.909 Epilepsy, unspecified, not intractable, without status epilepticus; G47.33 Obstructive sleep apnea (adult) (pediatric); E11.40 Type 2 diabetes mellitus with diabetic neuropathy, unspecified; G89.29 Other chronic pain; I25.119 Atherosclerotic heart disease of native coronary artery with unspecified angina pectoris; I27.20 Pulmonary hypertension, unspecified; J44.9 Chronic obstructive pulmonary disease, unspecified; K21.9 Gastro-esophageal reflux disease without esophagitis; K29.60 Other gastritis without bleeding; K63.5 Polyp of colon; K64.8 Other hemorrhoids; M19.90 Unspecified osteoarthritis, unspecified site; M51.9 Unspecified thoracic, thoracolumbar and lumbosacral intervertebral disc disorder; N18.3 Chronic kidney disease, stage 3 (moderate); Z79.4 Long term (current) use of insulin; Z79.82 Long term (current) use of aspirin; Z79.899 Other long term (current) drug therapy; Z80.42 Family history of malignant neoplasm of prostate; Z82.49 Family history of ischemic heart disease and other diseases of the circulatory system; Z82.5 Family history of asthma and other chronic lower respiratory diseases; Z86.73 Personal history of transient ischemic attack (TIA), and cerebral infarction without residual deficits; Z90.710 Acquired absence of both cervix and uterus; Z91.19 Patient's noncompliance with other medical treatment and regimen; Z95.5 Presence of coronary angioplasty implant and graft; Z88.5 Allergy status to narcotic agent; Z88.0 Allergy status to penicillin; Z88.8 Allergy status to other drugs, medicaments and biological substances; Z91.040 Latex allergy status; Z98.42 Cataract extraction status, left eye; Z98.41 Cataract extraction status, right eye
CPT/HCPCS: 36415; 45378; 74177; 80053; 82550; 82553; 83036; 83735; 83880; 84484; 85025; 85610; 85730; 86850; 86900; 86901; 93005; 94640; 94760; 96361; 96374; 99285

== ENCOUNTER 2018-01-19 11:29 | Day surgery (SDC) | payer MEDICARE ==
[2018-01-16 12:46] VITALS: BMI 57.2
[2018-01-19] MEDS ORDERED: INSULIN ASPART 100 UNIT/ML 1 ML 10 ML VIAL SQ ONE (12:12)
[2018-01-19 12:13] LABS: Glucose,Whole Blood 239 mg/dL (75-99)
[2018-01-19] MEDS ORDERED: MIDAZOLAM 2 MG/2 ML VIAL ONE (13:31)
[2018-01-19] MEDS ORDERED: LIDOCAINE 1% INJ 10MG/ML (20 ML MDV) ONE (13:31)
[2018-01-19] MEDS ORDERED: ONDANSETRON 4 MG/2 ML VIAL ONE (13:32)
[2018-01-19] MEDS ORDERED: MIDAZOLAM 2 MG/2 ML VIAL IVP ONE (13:38)
[2018-01-19] MEDS ORDERED: ONDANSETRON 4 MG/2 ML VIAL IVP ONE (13:38)
[2018-01-19] MEDS ORDERED: LIDOCAINE 1% INJ 10MG/ML (20 ML MDV) SQ ONE (13:39)
[2018-01-19] MEDS ORDERED: IOPAMIDOL-370 125ML BTL INJ ONE (13:57)
[2018-01-19] MEDS ORDERED: RX INFO: IV CONTRAST WAS GIVEN 1 EACH MISC MISCELLANE PRN (14:19)
[2018-01-19] MEDS ORDERED: SODIUM CHLORIDE 0.9% 1,000 ML IV SCH (14:30)
[2018-01-19] MEDS: clonazePAM 1 MG TAB PO SCH ×2 (16:07→20:41)
[2018-01-19] MEDS: traMADol 50 MG TAB PO SCH ×2 (16:07→20:41)
[2018-01-19] MEDS: FUROSEMIDE 40 MG TAB PO SCH (16:07)
[2018-01-19 16:53] LABS: Glucose,Whole Blood 198 mg/dL (75-99)
[2018-01-19] MEDS: INSULIN ASPART 100 UNIT/ML 1 ML 10 ML VIAL SQ SCH ×2 (17:20→20:42)
[2018-01-19] MEDS ORDERED: ONDANSETRON 4 MG/2 ML VIAL IVP PRN (18:04)
[2018-01-19 20:24] LABS: Glucose,Whole Blood 253 mg/dL (75-99)
[2018-01-19] MEDS ORDERED: KETOROLAC 30 MG/ML 1 ML VIAL IVP PRN (20:37)
[2018-01-19] MEDS: GABAPENTIN 100 MG CAP PO SCH (20:41)
[2018-01-19] MEDS: METOPROLOL TARTRATE 25 MG TAB PO SCH (20:41)
[2018-01-19] MEDS ORDERED: ATORVASTATIN 40 MG TAB PO SCH (21:00)
[2018-01-19] MEDS ORDERED: INSULIN DETEMIR 100 UNIT/ML 10 ML VIAL SQ SCH (21:00)
[2018-01-19 23:29] VITALS: RESP 18
--- NOTE | 2018-01-20 02:24 | LTR ---
DATE OF SERVICE: January 19, [address] Yi: Ms. Carla Garvin underwent a heart catheterization today and that revealed critical disease involving the ostial left circumflex coronary artery. The patient will be scheduled to have a PCI of the left circumflex. Thank you for allowing us to participate in her care and please do not hesitate to call if you have any question or concerns. Sincerely, MMDAVIDEL / IJN: [id number] /
--- NOTE | 2018-01-20 02:24 | CC ---
CARDIAC CATHETERIZATION REPORT DATE OF SERVICE: January 19, 2018 PERFORMING PHYSICIAN: Hermes Mancera MD, golf ball cover treater. PROCEDURE PERFORMED: 1. Selective right and left coronary angiogram. 2. Left heart catheterization. 3. Left ventriculography. INDICATION: This is a very pleasant 72-year-old female patient with known history of coronary artery disease and prior stenting of the of the right coronary artery and left anterior descending artery, was experiencing symptoms of chest discomfort and epigastric discomfort concerning for angina in spite of maximized medical treatment. Because of that, heart catheterization was advised. APPROACH: Right common femoral artery. COMPLICATION: None. LEVEL OF SEDATION: Moderate with sedation length of about 30 minutes. PROCEDURE DESCRIPTION: After obtaining an informed consent, the patient was brought to cardiac lab animal technologist. The right common femoral artery was cannulated using micropuncture technique and a micropuncture wire passed easily. Then I placed a 6-Slovenian sheath in the right common femoral artery. After that, I did selective right and left coronary angiogram using JR4 and JL4 catheters. Left heart catheterization and subsequently left ventriculography was performed using 6-Slovenian pigtail catheter. The procedure was completed without any complication. SELECTIVE CORONARY ANGIOGRAM: 1. The right coronary artery is a large caliber vessel and it is a dominant vessel. The proximal RCA has mild disease only. The mid RCA is stented and the stent is patent. The RCA distally appeared to have mild disease only and bifurcates into PDA and PLV branches. Both are angiographically normal. 2. The left main is angiographically normal. It bifurcates into the left circumflex and left anterior descending artery. 3. The left circumflex is a large caliber vessel and it is a nondominant vessel. The proximal circ: The ostial and proximal circumflex appeared to have a critical lesion seems to be in the range of in the range of 95-99 percent. The mid circ after that lesion has another lesion appeared to be in the range of 70% to 80%. The circumflex in the mid and distal portion appeared to have mild disease only. 4. The left anterior descending coronary artery: The proximal LAD is stented with mild in-stent restenosis. The mid LAD has mild disease only and the LAD distally appeared to be angiographically normal. CONCLUSION: 1. Mild in-stent restenosis involving the proximal left anterior descending coronary artery. 2. Critical disease involving the ostial/proximal left circumflex coronary artery. POSTPROCEDURE MANAGEMENT: Given the patient continuing chest discomfort in spite of maximized medical treatment, I did recommend proceeding with PCI of the left circumflex. The case was discussed with her son in details. TYLER / FARSHAD: [id number] /
[2018-01-20 06:47] LABS: Glucose,Whole Blood 88 mg/dL (75-99)
[2018-01-20] MEDS ORDERED: PANTOPRAZOLE 40 MG TABLET PO SCH (07:30)
[2018-01-20] MEDS: INSULIN ASPART 100 UNIT/ML 1 ML 10 ML VIAL SQ SCH ×2 (08:20→11:58)
[2018-01-20] MEDS: FUROSEMIDE 40 MG TAB PO SCH (08:24)
[2018-01-20] MEDS: METOPROLOL TARTRATE 25 MG TAB PO SCH (08:24)
[2018-01-20] MEDS: GABAPENTIN 100 MG CAP PO SCH (08:24)
[2018-01-20] MEDS: clonazePAM 1 MG TAB PO SCH (08:25)
[2018-01-20] MEDS: traMADol 50 MG TAB PO SCH (08:25)
--- NOTE | 2018-01-20 08:52 | DS ---
DISCHARGE SUMMARY ADMISSION DATE: January 19, 2018 DATE OF DISCHARGE: January 20, 2018. BRIEF HISTORY: This is a very pleasant 72-year-old female patient with known history of coronary artery disease and prior stenting of the left circumflex as well as the left anterior descending artery, who was experiencing symptoms of chest discomfort concerning for angina. Maximized medical treatment was tried for a long time and the patient continues to have chest discomfort. Because of that, a heart catheterization was advised. She was admitted to the hospital yesterday and underwent a heart catheterization which revealed critical disease involving the ostial and proximal left circumflex coronary artery with mild in-stent restenosis involving the LAD. The patient was kept overnight because the case was done later in the afternoon. On follow up with her today, she denies having any chest pain or discomfort at this moment. The right groin is tender, but there is no discrete hematoma noted. Because of that, I am going to obtain a ultrasound of the right groin and if the ultrasound came into be unremarkable, the patient can be discharged home. MMODJames / IJN: [id number] /
[2018-01-20] MEDS ORDERED: LISINOPRIL 20 MG TAB PO SCH (09:00)
[2018-01-20] MEDS ORDERED: ISOSORBIDE MONONITRATE ER 60 MG TAB.ER.24H PO SCH (09:00)
[2018-01-20] MEDS ORDERED: FERROUS SULFATE 325 MG TAB PO SCH (09:00)
[2018-01-20] MEDS ORDERED: CITALOPRAM HYDROBROMIDE 20 MG TAB PO SCH (09:00)
[2018-01-20] MEDS ORDERED: DIVALPROEX 250 MG TABLET.DR PO SCH (09:00)
[2018-01-20] MEDS ORDERED: ASPIRIN 81 MG PO SCH (09:00)
[2018-01-20] MEDS ORDERED: OXYBUTYNIN XL 5 MG TAB.ER.24 PO SCH (09:00)
[2018-01-20 09:16] VITALS: PULSE 55
--- NOTE | 2018-01-20 09:54 | US ---
EXAMINATION TYPE: US lower ext pseudo artery RT DATE OF EXAM: 01/20/2018 COMPARISON: NONE CLINICAL HISTORY: Rule out pseudoaneurysm. rt groin stick for heart cath yesterday, large habitus EXAM PERFORMED: Grayscale and color Doppler duplex imaging performed of the groin, post cardiac katya ter to assess for pseudoaneurysm. SIDE PERFORMED: right Color and Waveform Doppler performed to assess for the presence of pseudoaneurysm; Is there ultrasound evidence of a pseudoaneurysm: no Is there evidence of AV shunting: no Is there a fluid collection present: no No abnormality seen on ultrasound. IMPRESSION: NO EVIDENCE OF PSEUDOANEURYSM AT THIS TIME.
[2018-01-20 11:52] LABS: Glucose,Whole Blood 304 mg/dL (75-99)
[2018-01-20 12:15] VITALS: BP 126/51; TEMP 97.4
== END 2018-01-20 14:35 | disposition home or self-care (01) ==
LOC: CATHCVL 11:29 → 1SOBS 14:14 → CATHCVL 01-20 14:35
PROVIDERS: ATTEND Internal Medicine Interventional Cardiology
DX: I25.110 Atherosclerotic heart disease of native coronary artery with unstable angina pectoris (principal); T82.855A Stenosis of coronary artery stent, initial encounter; Z95.1 Presence of aortocoronary bypass graft; E78.00 Pure hypercholesterolemia, unspecified; E78.5 Hyperlipidemia, unspecified; I10 Essential (primary) hypertension; E66.01 Morbid (severe) obesity due to excess calories; Z68.44 Body mass index [BMI] 60.0-69.9, adult; E11.9 Type 2 diabetes mellitus without complications; Z79.82 Long term (current) use of aspirin; Z79.4 Long term (current) use of insulin; Z79.899 Other long term (current) drug therapy; Z88.5 Allergy status to narcotic agent; Z88.0 Allergy status to penicillin; Z88.6 Allergy status to analgesic agent; Z91.040 Latex allergy status
CPT/HCPCS: 93458; 93975; 93926; C1894; C1769 ×2; C1760; J2250; J2405; J2001; Q9967

== ENCOUNTER 2018-02-10 07:57 | Observation (INO) | payer MEDICARE ==
[2018-02-10] MEDS ORDERED: SODIUM CHLORIDE 0.9% 1,000 ML IV STA (08:07)
[2018-02-10] MEDS ORDERED: SODIUM CHLORIDE 0.9% 500 ML 500 ML IV STA (08:07)
--- NOTE | 2018-02-10 08:17 | ED ---
Weakness HPI - General Stated complaint: Weakness Time Seen by Provider: 02/10/18 08:00 Source: patient, EMS, RN notes reviewed, old records reviewed Mode of arrival: EMS - History of Present Illness Initial comments: This is a 72-year-old female with a history of multiple medical issues who does ably with a walker who called for help when she could not get off a commode. She apparently does use a walker and fell from the walker to the commode she was brought in by EMS for evaluation she apparently was too weak to stand on her own she denies any headache fevers chills nausea vomiting sweats she does state that she has had shortness of breath however on further questioning. Per paramedics the staff members at the [facility] where she resides states she's been more attention recently. Currently no other modifying factors no injuries reported. Patient does state that she is thirsty. MD Complaint: generalized weakness, difficulty walking - Related Data Home Medications Medication Instructions Recorded Confirmed Citalopram Hydrobromide [CeleXA] 40 mg PO DAILY 09/20/14 01/16/18 clonazePAM [KlonoPIN] 1 mg PO TID 09/20/14 01/16/18 traMADol HCl [Ultram] 50 mg PO TID 10/19/16 01/16/18 Lisinopril [Zestril] 20 mg PO DAILY 12/21/16 01/16/18 Atorvastatin [Lipitor] 40 mg PO HS 01/30/17 01/19/18 Aspirin EC [Ecotrin Low Dose] 81 mg PO DAILY 12/14/17 01/19/18 Cholecalciferol (Vitamin D3) 2,000 unit PO DAILY 12/14/17 01/16/18 [Vitamin D3] Gabapentin [Neurontin] 100 mg PO BID 12/14/17 01/16/18 Insulin Aspart [NovoLOG See Protocol SQ ACHS 12/14/17 01/16/18 (formulary)] Insulin Glargine,Hum.rec.anlog 50 unit SQ HS 12/14/17 01/19/18 [Lantus Solostar] Ipratropium-Albuterol Nebulize 3 ml INHALATION RT-QID PRN 12/14/17 01/16/18 [Duoneb 0.5 mg-3 mg/3 ml Soln] Isosorbide Mononitrate ER [Imdur] 60 mg PO DAILY 12/14/17 01/16/18 Metoprolol Tartrate [Lopressor] 25 mg PO BID 12/14/17 01/16/18 Pantoprazole Sodium [Protonix] 40 mg PO DAILY 12/14/17 01/16/18 predniSONE 20 mg PO DAILY 12/14/17 01/16/18 Acetaminophen [Tylenol] 325 mg PO BID 01/16/18 01/16/18 Divalproex [Depakote] 250 mg PO DAILY 01/16/18 01/16/18 Miconazole Nitrate [Lotrimin AF 1 applic TOPICAL DAILY PRN 01/16/18 01/16/18 Powder] Oxybutynin Chloride [Ditropan XL] 5 mg PO DAILY 01/16/18 01/16/18 Previous Rx's Medication Instructions Recorded Ferrous Sulfate [Iron (65 MG 325 mg PO DAILY tab 10/08/15 Elemental)] Nitroglycerin Sl Tabs [Nitrostat] 0.4 mg SUBLINGUAL Q5M PRN #30 tab 12/23/16 Furosemide [Lasix] 40 mg PO BID@0900,1600 tab 05/17/17 Nystatin 100,000 Unit/gm Powd 1 applic TOPICAL TID applic 12/20/17 [Mycostatin Powder] Allergies Allergy/AdvReac Type Severity Reaction Status Date / Time latex Allergy Mild Rash/Hives Verified 01/16/18 12:26 codeine Allergy Anaphylaxis Verified 01/16/18 12:26 morphine Allergy Hallucinati Verified 01/16/18 12:26 ons Penicillins Allergy Anaphylaxis Verified 01/16/18 12:26 propoxyphene napsylate Allergy Anaphylaxis Verified 01/16/18 12:26 [From Darvocet-N 100] tuberculin, purified protein Allergy Rash/Hives Verified 01/16/18 12:26 deriva [tuberculin,purif.prot.deriv.] adhesive AdvReac Mild Rash/Hives, Verified 01/16/18 12:26 W/ TAPES, CAN USE PAPER TAPE Review of Systems ROS Statement: Those systems with pertinent positive or pertinent negative responses have been documented in the HPI. ROS Other: All systems not noted in ROS Statement are negative. Past Medical History Past Medical History: Asthma, Coronary Artery Disease (CAD), Cancer, Chest Pain / Angina, CVA/TIA, Diabetes Mellitus, GERD/Reflux, Hyperlipidemia, Hypertension , Memory Impairment, Pneumonia, Sleep Apnea/CPAP/BIPAP Additional Past Medical History / Comment(s): IDDM type II, TAMRA unable to tolerate CPAP, bronchitis, chronic low back pain- bulging discs, scoliosis, urinary incontinence, IBS, gastric ulcers, hiatal hernia, TIA 3 yrs roughly ago- memory impairment, uses O2 @2l continuously, hypothyroid, hemorrhoids, anemia, Cervical CA hysterectomy, sinus problems at times. History of Any Multi-Drug Resistant Organisms: MRSA Date of last positivie culture/infection: 04/02/11 MDRO Source:: L chest/L lower leg/ankle Past Surgical History: Bladder Surgery, Cholecystectomy, Heart Catheterization, Heart Catheterization With Stent, Hysterectomy Additional Past Surgical History / Comment(s): PCI with a total of 5 stents per pt with last stent placed 06/29/16, partial parathyroidectomy, bilateral cataracts removed, I and D of L chest wall abscess and L ankle wound, bladder surgery with implant of stimulator system 02/2010, EGD/colonoscoy. Past Anesthesia/Blood Transfusion Reactions: No Reported Reaction Additional Past Anesthesia/Blood Transfusion Reaction / Comment(s): Pt states she has received blood in the past without reaction. Date of Last Stent Placement:: 06/29/16 Past Psychological History: Anxiety, Depression Additional Psychological History / Comment(s): RESIDES @ [facility] apartments. USES WALKER OR W/C . HOME CARE FROM [employer]FOR MEDICATION ADMINISTRATION. O2 at 2L/NC ATC. Staff manages her medications. She goes to a [facility] area for meals usually Smoking Status: Never smoker Past Alcohol Use History: None Reported Past Drug Use History: None Reported - Past Family History Brother(s) Family Medical History: Coronary Artery Disease (CAD) Father Family Medical History: Cancer, Coronary Artery Disease (CAD) Additional Family Medical History / Comment(s): Father had prostate cancer. Mother Family Medical History: Asthma, COPD General Exam - General Exam Comments Initial Comments: Pezzer well-developed morbidly obese female who is awake alert oriented 3. General appearance: alert, in no apparent distress Head exam: Present: atraumatic, normocephalic, normal inspection Eye exam: Present: normal appearance, PERRL, EOMI. Absent: scleral icterus, conjunctival injection, periorbital swelling ENT exam: Present: mucous membranes dry Neck exam: Present: normal inspection. Absent: tenderness, meningismus, lymphadenopathy Respiratory exam: Present: decreased breath sounds. Absent: respiratory distress, wheezes, rales, rhonchi, stridor Cardiovascular Exam: Present: regular rate, normal rhythm, normal heart sounds. Absent: systolic murmur, diastolic murmur, rubs, gallop, clicks GI/Abdominal exam: Present: soft, normal bowel sounds. Absent: distended, tenderness, guarding, rebound, rigid Extremities exam: Present: normal inspection, full ROM, normal capillary refill. Absent: tenderness, pedal edema, joint swelling, calf tenderness Back exam: Present: normal inspection Neurological exam: Present: alert, oriented X3, CN II-XII intact Psychiatric exam: Present: normal affect, normal mood Skin exam: Present: warm, dry, intact, normal color. Absent: rash Course Vital Signs 02/10/18 08:09 Temperature 98.2 F Pulse Rate 69 Respiratory 18 Rate Blood Pressure 139/44 O2 Sat by Pulse 96 Oximetry - Reevaluation(s) Reevaluation #1: 02/10/18 10:43 No change in patient's status at reevaluation EKG Findings - EKG Results: EKG: interpreted by ERMD (Sinus rhythm of 69. Interval 150 to QRS 70 QT since QTC 46/435 minimal also criteria for LVH nonspecific T-wave configuration artifact is present) Medical Decision Making - Medical Decision Making I did discuss findings with Dr. Yi and with the patient patient be admitted for hydration clinically she is dehydrated hypomagnesemia renal insufficiency - Lab Data Result diagrams: 02/10/18 08:32 02/10/18 08:32 Lab Results 02/10/18 02/10/18 02/10/18 Range/Units 08:32 08:32 08:32 WBC 15.7 H (3.8-10.6) k/uL RBC 3.34 L (3.80-5.40) m/uL Hgb 11.2 L (11.4-16.0) gm/dL Hct 34.0 (34.0-46.0) % MCV 101.8 H (80.0-100.0) fL MCH 33.4 (25.0-35.0) pg MCHC 32.8 (31.0-37.0) g/dL RDW 12.6 (11.5-15.5) % Plt Count 190 (150-450) k/uL Neutrophils % 80 % Lymphocytes % 11 % Monocytes % 7 % Eosinophils % 1 % Basophils % 0 % Neutrophils # 12.6 H (1.3-7.7) k/uL Lymphocytes # 1.8 (1.0-4.8) k/uL Monocytes # 1.1 H (0-1.0) k/uL Eosinophils # 0.1 (0-0.7) k/uL Basophils # 0.0 (0-0.2) k/uL Macrocytosis Slight Sodium 138 (137-145) mmol/L Potassium 4.0 (3.5-5.1) mmol/L Chloride 94 L (98-107) mmol/L Carbon Dioxide 34 H (22-30) mmol/L Anion Gap 10 mmol/L BUN 57 H (7-17) mg/dL Creatinine 1.49 H (0.52-1.04) mg/dL Est GFR (CKD-EPI)AfAm 40 (>60 ml/min/1.73 sqM) Est GFR (CKD-EPI)NonAf 35 (>60 ml/min/1.73 sqM) Glucose 173 H (74-99) mg/dL Calcium 9.2 (8.4-10.2) mg/dL Magnesium 1.5 L (1.6-2.3) mg/dL Total Bilirubin 0.7 (0.2-1.3) mg/dL AST 13 L (14-36) U/L ALT 23 (9-52) U/L Alkaline Phosphatase 34 L (38-126) U/L Total Creatine Kinase 68 (30-135) U/L CK-MB (CK-2) 0.3 (0.0-2.4) ng/mL CK-MB (CK-2) Rel Index 0.4 Total Protein 5.6 L (6.3-8.2) g/dL Albumin 3.4 L (3.5-5.0) g/dL Urine Color Urine Appearance (Clear) Urine pH (5.0-8.0) Ur Specific Eads (1.001-1.035) Urine Protein (Negative) Urine Glucose (UA) (Negative) Urine Ketones (Negative) Urine Blood (Negative) Urine Nitrite (Negative) Urine Bilirubin (Negative) Urine Urobilinogen (<2.0) mg/dL Ur Leukocyte Esterase (Negative) Urine RBC (0-5) /hpf Urine WBC (0-5) /hpf Urine WBC Clumps (None) /hpf Ur Squamous Epith Cells (0-4) /hpf Urine Bacteria (None) /hpf Hyaline Casts (0-2) /lpf Urine Mucus (None) /hpf 02/10/18 Range/Units 08:32 WBC (3.8-10.6) k/uL RBC (3.80-5.40) m/uL Hgb (11.4-16.0) gm/dL Hct (34.0-46.0) % MCV (80.0-100.0) fL MCH (25.0-35.0) pg MCHC (31.0-37.0) g/dL RDW (11.5-15.5) % Plt Count (150-450) k/uL Neutrophils % % Lymphocytes % % Monocytes % % Eosinophils % % Basophils % % Neutrophils # (1.3-7.7) k/uL Lymphocytes # (1.0-4.8) k/uL Monocytes # (0-1.0) k/uL Eosinophils # (0-0.7) k/uL Basophils # (0-0.2) k/uL Macrocytosis Sodium (137-145) mmol/L Potassium (3.5-5.1) mmol/L Chloride (98-107) mmol/L Carbon Dioxide (22-30) mmol/L Anion Gap mmol/L BUN (7-17) mg/dL Creatinine (0.52-1.04) mg/dL Est GFR (CKD-EPI)AfAm (>60 ml/min/1.73 sqM) Est GFR (CKD-EPI)NonAf (>60 ml/min/1.73 sqM) Glucose (74-99) mg/dL Calcium (8.4-10.2) mg/dL Magnesium (1.6-2.3) mg/dL Total Bilirubin (0.2-1.3) mg/dL AST (14-36) U/L ALT (9-52) U/L Alkaline Phosphatase (38-126) U/L Total Creatine Kinase (30-135) U/L CK-MB (CK-2) (0.0-2.4) ng/mL CK-MB (CK-2) Rel Index Total Protein (6.3-8.2) g/dL Albumin (3.5-5.0) g/dL Urine Color Yellow Urine Appearance Clear (Clear) Urine pH 5.0 (5.0-8.0) Ur Specific Eads 1.014 (1.001-1.035) Urine Protein Negative (Negative) Urine Glucose (UA) Negative (Negative) Urine Ketones Negative (Negative) Urine Blood Negative (Negative) Urine Nitrite Negative (Negative) Urine Bilirubin Negative (Negative) Urine Urobilinogen <2.0 (<2.0) mg/dL Ur Leukocyte Esterase Moderate H (Negative) Urine RBC 1 (0-5) /hpf Urine WBC 3 (0-5) /hpf Urine WBC Clumps Few H (None) /hpf Ur Squamous Epith Cells <1 (0-4) /hpf Urine Bacteria Few H (None) /hpf Hyaline Casts 12 H (0-2) /lpf Urine Mucus Rare H (None) /hpf - Radiology Data Radiology results: report reviewed (I did review the imaging and report there is some evidence of possible CHF no definite infiltrates otherwise evidence of cardiomegaly.), image reviewed Disposition Clinical Impression: Hypomagnesemia syndrome, Failure to thrive in adult, Risk for falls, Renal insufficiency syndrome, Morbid obesity Disposition: ADMITTED IP TO THIS [facility] Condition: Stable Referrals: Chris Yi MD [Primary Care Provider] - 1-2 days
[2018-02-10 08:48] LABS: Basophils % (A) 0 %; Eosinophils # (A) 0.1 k/uL (0-0.7); Eosinophils % (A) 1 %; HGB 11.2 gm/dL (11.4-16.0); Lymphocytes # (A) 1.8 k/uL (1.0-4.8); Lymphocytes % (A) 11 %; MCH 33.4 pg (25.0-35.0); MCHC 32.8 g/dL (31.0-37.0); MCV 101.8 fL (80.0-100.0); Macrocytosis Slight; Mean Platelet Volume 7.3; Monocytes # (A) 1.1 k/uL (0-1.0); Monocytes % (A) 7 %; Neutrophils # (A) 12.6 k/uL (1.3-7.7); Neutrophils % (A) 80 %; Platelet Count 190 k/uL (150-450); RBC 3.34 m/uL (3.80-5.40); RDW 12.6 % (11.5-15.5); WBC 15.7 k/uL (3.8-10.6)
[2018-02-10 08:53] LABS: Appearance,Urine Clear (Clear); Bacteria,Urine Few /hpf; Bilirubin,Urine Negative (Negative); Blood,Urine Negative (Negative); Color,Urine Yellow; Glucose,Urine (UA) Negative (Negative); Hyaline Casts,Urine 12 /lpf (0-2); Ketones,Urine Negative (Negative); Leukocyte Esterase,Urine Moderate (Negative); Mucus,Urine Rare /hpf; Nitrite,Urine Negative (Negative); Protein,Urine Negative (Negative); RBC,Urine 1 /hpf (0-5); Specific Gravity,Urine 1.014 (1.001-1.035); Squamous Epithelial Cell,Urine <1 /hpf (0-4); Urobilinogen,Urine <2.0 mg/dL (<2.0); WBC,Urine 3 /hpf (0-5)
[2018-02-10 08:58] LABS: Albumin 3.4 g/dL (3.5-5.0); Calcium 9.2 mg/dL (8.4-10.2); Magnesium 1.5 mg/dL (1.6-2.3); Total Bilirubin 0.7 mg/dL (0.2-1.3); Total Protein 5.6 g/dL (6.3-8.2)
--- NOTE | 2018-02-10 09:12 | XR ---
EXAMINATION TYPE: XR chest 2V DATE OF EXAM: 02/10/2018 HISTORY: cough. REFERENCE: Previous study dated 05/09/2017. FINDINGS: The heart is enlarged. There is vascular congestion and mild interstitial change. Pleural s paces are clear. IMPRESSION: SUBTLE CHANGES OF CONGESTIVE HEART FAILURE.
[2018-02-10 09:22] LABS: Creatine Kinase MB 0.3 ng/mL (0.0-2.4)
[2018-02-10] MEDS ORDERED: MAGNESIUM SULFATE-D5W PMX 1 GM in DEXTROSE/WATER 1 100ML.BAG IVPB ONE (10:37)
[2018-02-10] MEDS ORDERED: NALOXONE 0.4 MG/ML 1 ML VIAL IV PRN (10:47)
[2018-02-10] MEDS ORDERED: NITROGLYCERIN SL TABS 0.4 MG TAB SUBLINGUAL PRN (10:49)
[2018-02-10] MEDS ORDERED: NYSTATIN 100,000 UNIT/GM POWD 15 GM TOPICAL PRN (10:49)
[2018-02-10] MEDS ORDERED: IPRATROPIUM-ALBUTEROL 3 ML NEB INHALATION PRN (10:49)
[2018-02-10 13:07] VITALS: BMI 57.2
[2018-02-10 13:14] LABS: Glucose,Whole Blood 160 mg/dL (75-99)
[2018-02-10] MEDS: INSULIN ASPART 100 UNIT/ML 1 ML 10 ML VIAL SQ SCH ×3 (13:44→20:26)
[2018-02-10] MEDS: traMADol 50 MG TAB PO SCH ×2 (15:00→20:27)
[2018-02-10] MEDS: FUROSEMIDE 40 MG TAB PO SCH (15:00)
[2018-02-10] MEDS: clonazePAM 1 MG TAB PO SCH ×2 (15:00→20:27)
[2018-02-10 17:18] LABS: Glucose,Whole Blood 181 mg/dL (75-99)
[2018-02-10] MEDS: NYSTATIN 100,000 UNIT/GM POWD 15 GM TOPICAL SCH ×2 (19:55→20:27)
[2018-02-10] MEDS: ACETAMINOPHEN TAB 325 MG TAB PO SCH ×2 (20:10→23:55)
[2018-02-10 20:16] LABS: Glucose,Whole Blood 148 mg/dL (75-99)
[2018-02-10] MEDS: GABAPENTIN 100 MG CAP PO SCH (20:26)
[2018-02-10] MEDS: METOPROLOL TARTRATE 25 MG TAB PO SCH (20:27)
[2018-02-10] MEDS: INSULIN DETEMIR 100 UNIT/ML 10 ML VIAL SQ SCH (20:27)
[2018-02-10] MEDS: SODIUM CHLORIDE 0.9% 1,000 ML IV SCH (23:58)
--- NOTE | 2018-02-11 00:31 | HP ---
HISTORY AND PHYSICAL CHIEF COMPLAINT: A 72-year-old white female with multiple weaknesses and medical condition, recently had a PAD surgery, angioplasty of the right leg. She is going to have PTCA of her heart in the next 2-3 weeks. She came in due to weakness, fatigue, although her caregiver states she got up to walk down to the dining room at the [facility] home for the 1st time in weeks. She was getting stronger and apparently she might have fell and unable to get up due to significant weakness. She was found to be dehydrated in the emergency room and admitted. HOME MEDICATIONS: Klonopin and tramadol, Zestril, Lipitor, aspirin, Celexa, Imdur, Lopressor, Protonix, prednisone, Depakote, Lotrimin, Ditropan XL, NovoLog, Neurontin, vitamin D3. REVIEW OF SYSTEMS: Please see orders as above. PAST MEDICAL HISTORY: Asthma,coronary artery disease, cancer, chest pain, diabetes mellitus, GERD,dyslipidemia, hypertension, memory impairment, pneumonia, sleep apnea, heart catheterization, cholecystectomy, bladder surgery, cardiac stents, partial parathyroidectomy , history of 5 stents. FAMILY HISTORY: Brother with coronary artery disease. Father coronary artery disease. PHYSICAL EXAM: Morbidly obese white female on 2 L oxygen. CARDIOVASCULAR: S1, S2. Lungs scattered wheeze x4. HEMATOLOGY: Negative Homans. Psych fair mood and affect. NEUROLOGIC: Alert and oriented x3. Musculoskeletal 3/5 leg strength bilaterally. Temp 98.2, pulse 60s respiratory 18, blood pressure 139/44. EKG sinus rhythm. LABS: Reviewed. White count 15.7, BUN is 57, creatinine 1.9. ASSESSMENT: 1. Generalized weakness. 2. Debility. 3. Hypomagnesemia. 4. Failure to thrive. 5. Risk of falls. 6. Renal insufficiency. 7. Morbid obesity. 8. Peripheral arterial disease. 9. Coronary artery disease. 10.Diastolic congestive heart failure. See further orders. IV fluid rehydration. PT/OT consult. Cardiology consult. MMODL / IJN: [id number] /
[2018-02-11 06:55] LABS: Glucose,Whole Blood 63 mg/dL (75-99)
[2018-02-11 07:18] LABS: Glucose,Whole Blood 88 mg/dL (75-99)
[2018-02-11 07:48] LABS: Albumin 2.6 g/dL (3.5-5.0); Calcium 8.5 mg/dL (8.4-10.2); Potassium 3.7 mmol/L (3.5-5.1); Total Bilirubin 0.5 mg/dL (0.2-1.3); Total Protein 4.6 g/dL (6.3-8.2)
[2018-02-11 07:51] LABS: Basophils % (A) 0 %; Eosinophils # (A) 0.2 k/uL (0-0.7); Eosinophils % (A) 2 %; HCT 30.4 % (34.0-46.0); Lymphocytes % (A) 19 %; MCH 33.3 pg (25.0-35.0); MCHC 31.7 g/dL (31.0-37.0); MCV 104.9 fL (80.0-100.0); Macrocytosis Slight; Mean Platelet Volume 6.9; Monocytes # (A) 0.9 k/uL (0-1.0); Monocytes % (A) 8 %; Neutrophils # (A) 7.6 k/uL (1.3-7.7); Neutrophils % (A) 70 %; Platelet Count 158 k/uL (150-450); WBC 10.9 k/uL (3.8-10.6)
[2018-02-11 07:54] LABS: HGB 9.6 gm/dL (11.4-16.0)
[2018-02-11] MEDS: traMADol 50 MG TAB PO SCH ×3 (08:19→22:42)
[2018-02-11] MEDS: predniSONE 20 MG TAB PO SCH (08:19)
[2018-02-11] MEDS: GABAPENTIN 100 MG CAP PO SCH ×2 (08:19→22:41)
[2018-02-11] MEDS: LISINOPRIL 20 MG TAB PO SCH (08:19)
[2018-02-11] MEDS: METOPROLOL TARTRATE 25 MG TAB PO SCH ×2 (08:20→22:42)
[2018-02-11] MEDS: ISOSORBIDE MONONITRATE ER 60 MG TAB.ER.24H PO SCH (08:20)
[2018-02-11] MEDS: FUROSEMIDE 40 MG TAB PO SCH ×2 (08:21→14:48)
[2018-02-11] MEDS: CHOLECALCIFEROL 1,000 UNIT TAB PO SCH (08:22)
[2018-02-11] MEDS: FERROUS SULFATE 325 MG TAB PO SCH (08:22)
[2018-02-11] MEDS: PANTOPRAZOLE 40 MG TABLET PO SCH (08:22)
[2018-02-11] MEDS: OXYBUTYNIN XL 5 MG TAB.ER.24 PO SCH (08:22)
[2018-02-11] MEDS: CITALOPRAM HYDROBROMIDE 20 MG TAB PO SCH (08:22)
[2018-02-11] MEDS: INSULIN ASPART 100 UNIT/ML 1 ML 10 ML VIAL SQ SCH ×4 (08:22→22:41)
[2018-02-11] MEDS: ASPIRIN 81 MG PO SCH (08:22)
[2018-02-11] MEDS: ACETAMINOPHEN TAB 325 MG TAB PO SCH ×2 (08:22→22:40)
[2018-02-11] MEDS: clonazePAM 1 MG TAB PO SCH ×3 (08:22→22:42)
[2018-02-11] MEDS: CHOLESTYRAMINE (WITH SUGAR) 4 GM PACKET PO SCH ×3 (10:37→22:25)
[2018-02-11] MEDS: DIVALPROEX 250 MG TABLET.DR PO SCH (10:37)
[2018-02-11] MEDS: NYSTATIN 100,000 UNIT/GM POWD 15 GM TOPICAL SCH ×3 (10:39→22:42)
[2018-02-11 11:20] LABS: Glucose,Whole Blood 113 mg/dL (75-99)
[2018-02-11] MEDS: CIPROFLOXACIN HCL 500 MG TAB PO SCH ×2 (12:37→22:41)
--- NOTE | 2018-02-11 13:13 | P.GSCN ---
History of Present Illness Consult date: 02/11/18 Reason for Consult: Diarrhea, abdominal pain History of present illness: This is a 72-year-old female who is admitted to the hospital with complaints of abdominal pain and diarrhea. Patient states that she's had diarrhea off and on for the last 5 months. She has some mild crampy abdominal pain. Past Medical History Past Medical History: Asthma, Coronary Artery Disease (CAD), Cancer, Chest Pain / Angina, CVA/TIA, Diabetes Mellitus, GERD/Reflux, Hyperlipidemia, Hypertension , Memory Impairment, Pneumonia, Sleep Apnea/CPAP/BIPAP Additional Past Medical History / Comment(s): IDDM type II, TAMRA unable to tolerate CPAP, bronchitis, chronic low back pain- bulging discs, scoliosis, urinary incontinence, IBS, gastric ulcers, hiatal hernia, TIA 3 yrs roughly ago- memory impairment, uses O2 @2l continuously, hypothyroid, hemorrhoids, anemia, Cervical CA hysterectomy, sinus problems at times. History of Any Multi-Drug Resistant Organisms: MRSA Year Discovered:: 04/02/11 MDRO Source:: L chest/L lower leg/ankle Past Surgical History: Bladder Surgery, Cholecystectomy, Heart Catheterization, Heart Catheterization With Stent, Hysterectomy Additional Past Surgical History / Comment(s): PCI with a total of 5 stents per pt with last stent placed 06/29/16, partial parathyroidectomy, bilateral cataracts removed, I and D of L chest wall abscess and L ankle wound, bladder surgery with implant of stimulator system 02/2010, EGD/colonoscoy. Past Anesthesia/Blood Transfusion Reactions: No Reported Reaction Additional Past Anesthesia/Blood Transfusion Reaction / Comm: Pt states she has received blood in the past without reaction. Date of Last Stent Placement:: 06/29/16 Smoking Status: Never smoker - Past Family History Brother(s) Family Medical History: Coronary Artery Disease (CAD) Father Family Medical History: Cancer, Coronary Artery Disease (CAD) Additional Family Medical History / Comment(s): Father had prostate cancer. Mother Family Medical History: Asthma, COPD Medications and Allergies Home Medications Medication Instructions Recorded Confirmed Type Citalopram Hydrobromide [CeleXA] 40 mg PO DAILY 09/20/14 02/10/18 History clonazePAM [KlonoPIN] 1 mg PO TID 09/20/14 02/10/18 History Ferrous Sulfate [Iron (65 MG 325 mg PO DAILY tab 10/08/15 02/10/18 Rx Elemental)] traMADol HCl [Ultram] 50 mg PO TID 10/19/16 02/10/18 History Lisinopril [Zestril] 20 mg PO DAILY 12/21/16 02/10/18 History Nitroglycerin Sl Tabs [Nitrostat] 0.4 mg SUBLINGUAL Q5M PRN #30 tab 12/23/1610/21 Rx Atorvastatin [Lipitor] 40 mg PO HS 01/30/17 02/10/18 History Furosemide [Lasix] 40 mg PO BID@0900,1600 tab 05/17/17 02/10/18 Rx Aspirin EC [Ecotrin Low Dose] 81 mg PO DAILY 12/14/17 02/10/18 History Cholecalciferol (Vitamin D3) 2,000 unit PO DAILY 12/14/17 02/10/18 History [Vitamin D3] Gabapentin [Neurontin] 100 mg PO BID 12/14/17 02/10/18 History Insulin Aspart [NovoLOG See Protocol SQ ACHS 12/14/17 02/10/18 History (formulary)] Insulin Glargine,Hum.rec.anlog 50 unit SQ HS 12/14/17 02/10/18 History [Lantus Solostar] Ipratropium-Albuterol Nebulize 3 ml INHALATION RT-QID PRN 12/14/17 02/10/18 History [Duoneb 0.5 mg-3 mg/3 ml Soln] Isosorbide Mononitrate ER [Imdur] 60 mg PO DAILY 12/14/17 02/10/18 History Metoprolol Tartrate [Lopressor] 25 mg PO BID 12/14/17 02/10/18 History Pantoprazole Sodium [Protonix] 40 mg PO DAILY 12/14/17 02/10/18 History predniSONE 20 mg PO DAILY 12/14/17 02/10/18 History Nystatin 100,000 Unit/gm Powd 1 applic TOPICAL TID applic 12/20/17 02/10/18 Rx [Mycostatin Powder] Acetaminophen [Tylenol] 325 mg PO BID 01/16/18 02/10/18 History Divalproex [Depakote] 250 mg PO DAILY 01/16/18 02/10/18 History Miconazole Nitrate [Lotrimin AF 1 applic TOPICAL DAILY PRN 01/16/18 02/10/18 History Powder] Oxybutynin Chloride [Ditropan XL] 5 mg PO DAILY 01/16/18 02/10/18 History Allergies Allergy/AdvReac Type Severity Reaction Status Date / Time latex Allergy Mild Rash/Hives Verified 02/10/18 13:14 codeine Allergy Anaphylaxis Verified 02/10/18 13:14 morphine Allergy Hallucinati Verified 02/10/18 13:14 ons Penicillins Allergy Anaphylaxis Verified 02/10/18 13:14 propoxyphene napsylate Allergy Anaphylaxis Verified 02/10/18 13:14 [From Darvocet-N 100] tuberculin, purified protein Allergy Rash/Hives Verified 02/10/18 13:14 deriva [tuberculin,purif.prot.deriv.] adhesive AdvReac Mild Rash/Hives, Verified 02/10/18 13:14 W/ TAPES, CAN USE PAPER TAPE Surgical - Exam Vital Signs Pulse Ox 99 02/10/18 08:07 - General well developed, no distress - Eyes PERRL - ENT normal pinna - Neck no masses - Respiratory normal expansion - Cardiovascular Rhythm: regular - Abdomen Abdomen: soft, non tender Results - Labs 02/11/18 06:33 02/11/18 06:33 Abnormal Lab Results - Last 24 Hours (Table) 02/10/18 02/10/18 02/10/18 Range/Units 12:52 17:06 20:05 WBC (3.8-10.6) k/uL RBC (3.80-5.40) m/uL Hgb (11.4-16.0) gm/dL Hct (34.0-46.0) % MCV (80.0-100.0) fL Carbon Dioxide (22-30) mmol/L BUN (7-17) mg/dL Creatinine (0.52-1.04) mg/dL Glucose (74-99) mg/dL POC Glucose (mg/dL) 160 H 181 H 148 H (75-99) mg/dL Alkaline Phosphatase (38-126) U/L Total Protein (6.3-8.2) g/dL Albumin (3.5-5.0) g/dL 02/11/18 02/11/18 02/11/18 Range/Units 06:33 06:33 06:42 WBC 10.9 H (3.8-10.6) k/uL RBC 2.90 L (3.80-5.40) m/uL Hgb 9.6 L D (11.4-16.0) gm/dL Hct 30.4 L (34.0-46.0) % MCV 104.9 H (80.0-100.0) fL Carbon Dioxide 38 H (22-30) mmol/L BUN 49 H (7-17) mg/dL Creatinine 1.24 H (0.52-1.04) mg/dL Glucose 60 L (74-99) mg/dL POC Glucose (mg/dL) 63 L (75-99) mg/dL Alkaline Phosphatase 25 L (38-126) U/L Total Protein 4.6 L (6.3-8.2) g/dL Albumin 2.6 L (3.5-5.0) g/dL 02/11/18 Range/Units 11:08 WBC (3.8-10.6) k/uL RBC (3.80-5.40) m/uL Hgb (11.4-16.0) gm/dL Hct (34.0-46.0) % MCV (80.0-100.0) fL Carbon Dioxide (22-30) mmol/L BUN (7-17) mg/dL Creatinine (0.52-1.04) mg/dL Glucose (74-99) mg/dL POC Glucose (mg/dL) 113 H (75-99) mg/dL Alkaline Phosphatase (38-126) U/L Total Protein (6.3-8.2) g/dL Albumin (3.5-5.0) g/dL Diabetes panel 02/11/18 Range/Units 06:33 Sodium 140 (137-145) mmol/L Potassium 3.7 (3.5-5.1) mmol/L Chloride 101 (98-107) mmol/L Carbon Dioxide 38 H (22-30) mmol/L BUN 49 H (7-17) mg/dL Creatinine 1.24 H (0.52-1.04) mg/dL Glucose 60 L (74-99) mg/dL Calcium 8.5 (8.4-10.2) mg/dL AST 36 (14-36) U/L ALT 26 (9-52) U/L Alkaline Phosphatase 25 L (38-126) U/L Total Protein 4.6 L (6.3-8.2) g/dL Albumin 2.6 L (3.5-5.0) g/dL Calcium panel 02/11/18 Range/Units 06:33 Calcium 8.5 (8.4-10.2) mg/dL Albumin 2.6 L (3.5-5.0) g/dL Pituitary panel 02/11/18 Range/Units 06:33 Sodium 140 (137-145) mmol/L Potassium 3.7 (3.5-5.1) mmol/L Chloride 101 (98-107) mmol/L Carbon Dioxide 38 H (22-30) mmol/L BUN 49 H (7-17) mg/dL Creatinine 1.24 H (0.52-1.04) mg/dL Glucose 60 L (74-99) mg/dL Calcium 8.5 (8.4-10.2) mg/dL Adrenal panel 02/11/18 Range/Units 06:33 Sodium 140 (137-145) mmol/L Potassium 3.7 (3.5-5.1) mmol/L Chloride 101 (98-107) mmol/L Carbon Dioxide 38 H (22-30) mmol/L BUN 49 H (7-17) mg/dL Creatinine 1.24 H (0.52-1.04) mg/dL Glucose 60 L (74-99) mg/dL Calcium 8.5 (8.4-10.2) mg/dL Total Bilirubin 0.5 (0.2-1.3) mg/dL AST 36 (14-36) U/L ALT 26 (9-52) U/L Alkaline Phosphatase 25 L (38-126) U/L Total Protein 4.6 L (6.3-8.2) g/dL Albumin 2.6 L (3.5-5.0) g/dL Assessment and Plan Assessment: History of diarrhea and abdominal pain. If patient's symptoms didn't improve. We may order a CAT scan to evaluate for colitis.
--- NOTE | 2018-02-11 16:48 | XR ---
EXAMINATION TYPE: XR foot limited RT DATE OF EXAM: 02/11/2018 COMPARISON: NONE HISTORY: Fall. Foot pain and ankle pain TECHNIQUE: 2 views portable FINDINGS: There is no sign of fracture nor dislocation. There is a plantar calcaneal spur. Metatarsal s appear intact. There is osteopenia. IMPRESSION: No acute abnormality of the right foot.
--- NOTE | 2018-02-11 16:49 | XR ---
EXAMINATION TYPE: XR ankle complete RT DATE OF EXAM: 02/11/2018 COMPARISON: NONE HISTORY: Fall. Pain. TECHNIQUE: 3 views FINDINGS: Ankle mortise is anatomic. I see no fracture nor dislocation. There is a plantar calcaneal spur. IMPRESSION: Calcaneal spurring. No fracture seen.
--- NOTE | 2018-02-11 16:57 | P.CNNES ---
History of Present Illness Consult date: 02/11/18 Reason for Consult: Patient admitted for generalized weakness and chronic diarrhea. History of Present Illness: This patient is a 72-year-old right-handed white female who was admitted to the hospital with symptoms of generalized weakness. Patient currently resides at the [facility] and apparently was having difficulty getting up from her commode. She normally uses a walker to ambulate at that facility but yesterday she was unable to stand due to generalized weakness. She denied any fever chills but has been complaining of chronic diarrhea for the last several months. She has been requiring more medical assistance due to decline in her general medical health. EMS was called to the facility and she was found to have significant weakness requiring 2 person assist. She was brought into the emergency room at [facility] for further evaluation. She was seen in the ER by Dr. Powell. And due to her general weakness she was admitted to the hospital for further evaluation. She was found in the emergency room to have evidence of a hypomagnesemia and renal insufficiency. She did appear to be dehydrated as well and hydration process was initiated in the ER. She was subsequent admitted to hospital for further evaluation. She states that she does have generalized weakness and is morbidly obese. She has been ambulating at the [facility] with her walker. She has been showing deterioration in her overall general strength as that she is more confined to her bed. The patient does have history of peripheral arterial disease mostly involving her right leg. She is undergone angioplasty for this in the past. Patient denies any previous history of TIA or stroke. She does remember having an episode of weakness about 4 years ago affecting her right side. The patient does require 24 hour oxygen at home due to her poor respiratory status. She is not had any evaluation for inpatient rehab but this may be a consideration following her admission. The patient otherwise seems to be doing fairly well today but still has generalized weakness. Gen. surgery has been consulted for further evaluation of her chronic diarrhea. We will continue close neurological follow- up of this patient during this admission. Neurology is now been consulted for further evaluation and recommendations. Review of Systems Constitutional: Denies chills, Denies fever Eyes: denies blurred vision, denies pain Ears, nose, mouth and throat: Denies headache, Denies sore throat Cardiovascular: Denies chest pain, Denies shortness of breath Respiratory: Denies cough Gastrointestinal: Denies abdominal pain, Denies diarrhea, Denies nausea, Denies vomiting Genitourinary: Denies dysuria, Denies hematuria Musculoskeletal: Denies myalgias Integumentary: Denies pruritus, Denies rash Neurological: Reports balance difficulties, Reports change in mentation, Reports gait dysfunction, Reports lack of coordination, Reports paresthesias, Reports tingling, Denies numbness, Denies weakness Psychiatric: Reports confusion, Denies anxiety, Denies depression Endocrine: Denies fatigue, Denies weight change Past Medical History Past Medical History: Asthma, Coronary Artery Disease (CAD), Cancer, Chest Pain / Angina, CVA/TIA, Diabetes Mellitus, GERD/Reflux, Hyperlipidemia, Hypertension , Memory Impairment, Pneumonia, Sleep Apnea/CPAP/BIPAP Additional Past Medical History / Comment(s): IDDM type II, TAMRA unable to tolerate CPAP, bronchitis, chronic low back pain- bulging discs, scoliosis, urinary incontinence, IBS, gastric ulcers, hiatal hernia, TIA 3 yrs roughly ago- memory impairment, uses O2 @2l continuously, hypothyroid, hemorrhoids, anemia, Cervical CA hysterectomy, sinus problems at times. History of Any Multi-Drug Resistant Organisms: MRSA Date of last positivie culture/infection: 04/02/11 MDRO Source:: L chest/L lower leg/ankle Past Surgical History: Bladder Surgery, Cholecystectomy, Heart Catheterization, Heart Catheterization With Stent, Hysterectomy Additional Past Surgical History / Comment(s): PCI with a total of 5 stents per pt with last stent placed 06/29/16, partial parathyroidectomy, bilateral cataracts removed, I and D of L chest wall abscess and L ankle wound, bladder surgery with implant of stimulator system 02/2010, EGD/colonoscoy. Past Anesthesia/Blood Transfusion Reactions: No Reported Reaction Additional Past Anesthesia/Blood Transfusion Reaction / Comment(s): Pt states she has received blood in the past without reaction. Date of Last Stent Placement:: 06/29/16 Smoking Status: Never smoker - Past Family History Brother(s) Family Medical History: Coronary Artery Disease (CAD) Father Family Medical History: Cancer, Coronary Artery Disease (CAD) Additional Family Medical History / Comment(s): Father had prostate cancer. Mother Family Medical History: Asthma, COPD Medications and Allergies Home Medications Medication Instructions Recorded Confirmed Type Citalopram Hydrobromide [CeleXA] 40 mg PO DAILY 09/20/14 02/10/18 History clonazePAM [KlonoPIN] 1 mg PO TID 09/20/14 02/10/18 History Ferrous Sulfate [Iron (65 MG 325 mg PO DAILY tab 10/08/15 02/10/18 Rx Elemental)] traMADol HCl [Ultram] 50 mg PO TID 10/19/16 02/10/18 History Lisinopril [Zestril] 20 mg PO DAILY 12/21/16 02/10/18 History Nitroglycerin Sl Tabs [Nitrostat] 0.4 mg SUBLINGUAL Q5M PRN #30 tab 12/23/1610/21 Rx Atorvastatin [Lipitor] 40 mg PO HS 01/30/17 02/10/18 History Furosemide [Lasix] 40 mg PO BID@0900,1600 tab 05/17/17 02/10/18 Rx Aspirin EC [Ecotrin Low Dose] 81 mg PO DAILY 12/14/17 02/10/18 History Cholecalciferol (Vitamin D3) 2,000 unit PO DAILY 12/14/17 02/10/18 History [Vitamin D3] Gabapentin [Neurontin] 100 mg PO BID 12/14/17 02/10/18 History Insulin Aspart [NovoLOG See Protocol SQ ACHS 12/14/17 02/10/18 History (formulary)] Insulin Glargine,Hum.rec.anlog 50 unit SQ HS 12/14/17 02/10/18 History [Lantus Solostar] Ipratropium-Albuterol Nebulize 3 ml INHALATION RT-QID PRN 12/14/17 02/10/18 History [Duoneb 0.5 mg-3 mg/3 ml Soln] Isosorbide Mononitrate ER [Imdur] 60 mg PO DAILY 12/14/17 02/10/18 History Metoprolol Tartrate [Lopressor] 25 mg PO BID 12/14/17 02/10/18 History Pantoprazole Sodium [Protonix] 40 mg PO DAILY 12/14/17 02/10/18 History predniSONE 20 mg PO DAILY 12/14/17 02/10/18 History Nystatin 100,000 Unit/gm Powd 1 applic TOPICAL TID applic 12/20/17 02/10/18 Rx [Mycostatin Powder] Acetaminophen [Tylenol] 325 mg PO BID 01/16/18 02/10/18 History Divalproex [Depakote] 250 mg PO DAILY 01/16/18 02/10/18 History Miconazole Nitrate [Lotrimin AF 1 applic TOPICAL DAILY PRN 01/16/18 02/10/18 History Powder] Oxybutynin Chloride [Ditropan XL] 5 mg PO DAILY 01/16/18 02/10/18 History Allergies Allergy/AdvReac Type Severity Reaction Status Date / Time latex Allergy Mild Rash/Hives Verified 02/10/18 13:14 codeine Allergy Anaphylaxis Verified 02/10/18 13:14 morphine Allergy Hallucinati Verified 02/10/18 13:14 ons Penicillins Allergy Anaphylaxis Verified 02/10/18 13:14 propoxyphene napsylate Allergy Anaphylaxis Verified 02/10/18 13:14 [From Darvocet-N 100] tuberculin, purified protein Allergy Rash/Hives Verified 02/10/18 13:14 deriva [tuberculin,purif.prot.deriv.] adhesive AdvReac Mild Rash/Hives, Verified 02/10/18 13:14 W/ TAPES, CAN USE PAPER TAPE Physical Examination - Vital Signs Vital Signs: Vital Signs Temp Pulse Resp BP Pulse Ox 02/11/18 14:34 98.6 F 56 L 15 110/56 100 02/11/18 08:00 17 02/11/18 07:00 98 F 60 16 128/60 100 02/11/18 00:59 98.4 F 67 18 132/60 97 02/10/18 19:51 98.6 F 72 16 124/68 94 L Intake and Output 02/11/18 02/11/18 02/11/18 06:59 14:59 22:59 Intake Total 450 470 Balance 450 470 Intake: Intake, IV Titration 450 Amount Sodium Chloride 0.9% 1, 450 000 ml @ 75 mls/hr IV . [id number] [facility] Rx#:[id number] Oral 470 Other: # Voids 1 # Bowel Movements 3 - Constitutional General appearance: cooperative, morbidly obese - EENT EENT: PERRL, mucous membranes moist - Respiratory Respiratory: lungs clear, normal breath sounds - Cardiovascular Cardiovascular: regular rate, normal S1, normal S2 Extremities: no peripheral edema bilaterally - Gastrointestinal Gastrointestinal: normoactive bowel sounds - Integumentary Integumentary: normal - Neurologic Cranial nerve examination: PERRL, EOMI, VFF, V1/V2/V3 grossly intact, face symmetric, intact gag reflex, intact corneal reflex, normal palatal elevation Speech examination: intact Sensorimotor examination: intact Motor examination - right side: 3/5: biceps, triceps, wrist flexion, wrist extension, gastroenterology nurse practitioner, hip flexors, knee extensors, dorsiflexion, toe extension (EHL) , plantarflexion Motor examination - left side: 3/5: biceps, triceps, wrist flexion, wrist extension, gastroenterology nurse practitioner, hip flexors, knee extensors, dorsiflexion, toe extension (EHL) , plantarflexion Detailed sensory examination: intact Reflex and gait examination: intact Reflexes: 1+: ankle, bicep, knee, tricep - Musculoskeletal Musculoskeletal: no pain - Psychiatric Psychiatric: mood/affect appropriate, cooperative Results - Laboratory Findings CBC and BMP: 02/11/18 06:33 02/11/18 06:33 Abnormal Lab Findings: Abnormal Labs 02/10/18 02/10/18 02/10/18 08:32 08:32 08:32 WBC 15.7 H RBC 3.34 L Hgb 11.2 L Hct MCV 101.8 H Neutrophils # 12.6 H Monocytes # 1.1 H Chloride 94 L Carbon Dioxide 34 H BUN 57 H Creatinine 1.49 H Glucose 173 H POC Glucose (mg/dL) Magnesium 1.5 L AST 13 L Alkaline Phosphatase 34 L Total Protein 5.6 L Albumin 3.4 L Ur Leukocyte Esterase Moderate H Urine WBC Clumps Few H Urine Bacteria Few H Hyaline Casts 12 H Urine Mucus Rare H 02/10/18 02/10/18 02/10/18 12:52 17:06 20:05 WBC RBC Hgb Hct MCV Neutrophils # Monocytes # Chloride Carbon Dioxide BUN Creatinine Glucose POC Glucose (mg/dL) 160 H 181 H 148 H Magnesium AST Alkaline Phosphatase Total Protein Albumin Ur Leukocyte Esterase Urine WBC Clumps Urine Bacteria Hyaline Casts Urine Mucus 02/11/18 02/11/18 02/11/18 06:33 06:33 06:42 WBC 10.9 H RBC 2.90 L Hgb 9.6 L D Hct 30.4 L MCV 104.9 H Neutrophils # Monocytes # Chloride Carbon Dioxide 38 H BUN 49 H Creatinine 1.24 H Glucose 60 L POC Glucose (mg/dL) 63 L Magnesium AST Alkaline Phosphatase 25 L Total Protein 4.6 L Albumin 2.6 L Ur Leukocyte Esterase Urine WBC Clumps Urine Bacteria Hyaline Casts Urine Mucus 02/11/18 11:08 WBC RBC Hgb Hct MCV Neutrophils # Monocytes # Chloride Carbon Dioxide BUN Creatinine Glucose POC Glucose (mg/dL) 113 H Magnesium AST Alkaline Phosphatase Total Protein Albumin Ur Leukocyte Esterase Urine WBC Clumps Urine Bacteria Hyaline Casts Urine Mucus Assessment and Plan (1) Acute metabolic encephalopathy Current Visit: Yes Status: Acute Code(s): G93.41 - METABOLIC ENCEPHALOPATHY SNOMED Code(s): 20665164 (2) Generalized weakness Current Visit: Yes Status: Acute Code(s): R53.1 - WEAKNESS SNOMED Code(s) : 51391523 (3) Morbid obesity Current Visit: Yes Status: Acute Code(s): E66.01 - MORBID (SEVERE) OBESITY DUE TO EXCESS CALORIES SNOMED Code(s): 736187913 (4) Renal insufficiency syndrome Current Visit: Yes Status: Acute Code(s): N28.9 - DISORDER OF KIDNEY AND URETER, UNSPECIFIED SNOMED Code(s): 678499278 (5) Acute on chronic renal failure Current Visit: No Status: Acute Code(s): N17.9 - ACUTE KIDNEY FAILURE, UNSPECIFIED; N18.9 - CHRONIC KIDNEY DISEASE, UNSPECIFIED SNOMED Code(s): 534507759 (6) Confusion Current Visit: No Status: Acute Code(s): R41.0 - DISORIENTATION, UNSPECIFIED SNOMED Code(s): 425177348 (7) Diabetes mellitus type 2 in obese Current Visit: No Status: Acute Code(s): E11.69 - TYPE 2 DIABETES MELLITUS WITH OTHER SPECIFIED COMPLICATION; E66.9 - OBESITY, UNSPECIFIED SNOMED Code(s) : 69959443 Plan: This patient is a 72-year-old female who was admitted to hospital with generalized weakness. The patient has been residing at [facility]. She has been noted to show a decline in her ability to ambulate over the last several weeks. She has been more confined to her room and to her bed. Patient had a fall recently and required help from EMS. She was subsequently brought into the hospital for further evaluation. She was seen in the ER by Dr. Powell. She was admitted for dehydration and generalized weakness. She has a history of cardiac stent placement in the past and apparently has 5 stents. She has been complaining of weakness that has been progressive over the last several months. She has also been complaining of chronic diarrhea for the past several months. Apparently this is been ongoing for over 5 months. Surgery has been consulted and we will await their further recommendations. We have recommended patient undergo a computed tomography scan of the brain to rule out acute stroke. She is being treated for dehydration and should be closely monitored in terms of her metabolic abnormalities. Would recommend physical therapy consultation and possible inpatient rehab depending on her progress. Overall prognosis at this time remains guarded. We will continue close neurological follow-up for the patient during this admission. Time with Patient: Greater than 30
[2018-02-11 17:28] LABS: Glucose,Whole Blood 265 mg/dL (75-99)
--- NOTE | 2018-02-11 17:41 | PN ---
PROGRESS NOTE SUBJECTIVE: 72-year-old white male with failure to thrive, states she has had abdominal pain. Surgical consult is pending. She states the EMS dropped her. She is very weak. She is having pain in her right leg. We are going to order a bunch of x-rays on her right ankle, right foot, right knee, hips. Cardiovascular S1, S2. Lungs are clear. Endocrine: BMI is over 40. ASSESSMENT: 1. Failure to thrive. 2. Falls. 3. Hyponatremia. PT/OT. Multiple x-rays. Surgical consult. Please see further orders. MMODL / IJN: [id number] /
[2018-02-11] MEDS: SODIUM CHLORIDE 0.9% 1,000 ML IV SCH (17:59)
--- NOTE | 2018-02-11 18:47 | CT ---
EXAMINATION TYPE: CT brain wo con DATE OF EXAM: 02/11/2018 COMPARISON: 10/01/2017 HISTORY: dizziness CT DLP: 1058.4 mGycm Automated exposure control for dose reduction was used. FINDINGS: There is some cerebral cortical atrophy. There is no mass effect nor midline shift. There is no sign of intracranial hemorrhage. The calvarium is intact. There is a 1 cm area of hypodensity in the white matter right internal capsule IMPRESSION: CEREBRAL ATROPHY. NO HEMORRHAGE. 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 NO ACUTE INTRACRANIAL AB NORMALITY.
--- NOTE | 2018-02-11 18:49 | XR ---
EXAMINATION TYPE: XR knee complete bilateral DATE OF EXAM: 02/11/2018 COMPARISON: NONE HISTORY: Bilateral knee pain after fall TECHNIQUE: 3 views each knee FINDINGS: There is some spurring of the femoral and tibial condyles. There is bilateral narrowing of the joint spaces. There is more noticeable narrowing of the lateral joint space of the right knee and the medial joint space left knee. There is probably small bilateral joint effusions. There is bilate ral spurring of the patella. IMPRESSION: No fracture. Bilateral moderate osteoarthritis.
--- NOTE | 2018-02-11 18:52 | XR ---
EXAMINATION TYPE: XR Hip Bilateral Complete DATE OF EXAM: 02/11/2018 COMPARISON: 10/19/2016 HISTORY: Fall. Hip pain. TECHNIQUE: Single view of each hip FINDINGS: There is spurring of the acetabula. I see no evidence of a femoral proximal fracture. Aceta bula appear intact. IMPRESSION: Mild degenerative spurring. No fracture seen. No change compared to abdomen x-ray of 10/19.
--- NOTE | 2018-02-11 19:01 | CT ---
EXAMINATION TYPE: CT pelvis wo con DATE OF EXAM: 02/11/2018 COMPARISON: 12/14/2017 HISTORY: bilateral hip pain following fall CT DLP: 1445.4 mGycm Automated exposure control for dose reduction was used. FINDINGS: The bones are osteopenic. The pelvic ring is intact. The proximal femurs are intact. There is no evid ence of a hip fracture. There is hip joint space narrowing. Sacroiliac joints are intact. There are s pondylotic changes in the lower lumbar spine. There is neurostimulator on the left side of the lower sacrum. There is no evidence of a pelvic mass. There is no free fluid in the pelvis. IMPRESSION: NO ACUTE ABNORMALITY OF THE PELVIS. NO FRACTURE SEEN.
[2018-02-11 22:34] LABS: Glucose,Whole Blood 411 mg/dL (75-99)
[2018-02-11] MEDS: INSULIN DETEMIR 100 UNIT/ML 10 ML VIAL SQ SCH (22:41)
[2018-02-12 07:06] LABS: Glucose,Whole Blood 170 mg/dL (75-99)
[2018-02-12] MEDS: INSULIN ASPART 100 UNIT/ML 1 ML 10 ML VIAL SQ SCH ×4 (07:38→22:51)
[2018-02-12] MEDS: METOPROLOL TARTRATE 25 MG TAB PO SCH ×2 (08:20→22:50)
[2018-02-12] MEDS: CIPROFLOXACIN HCL 500 MG TAB PO SCH ×2 (08:36→22:49)
[2018-02-12] MEDS: CHOLECALCIFEROL 1,000 UNIT TAB PO SCH (08:36)
[2018-02-12] MEDS: ASPIRIN 81 MG PO SCH (08:36)
[2018-02-12] MEDS: FERROUS SULFATE 325 MG TAB PO SCH (08:36)
[2018-02-12] MEDS: traMADol 50 MG TAB PO SCH ×3 (08:36→22:49)
[2018-02-12] MEDS: ISOSORBIDE MONONITRATE ER 60 MG TAB.ER.24H PO SCH (08:36)
[2018-02-12] MEDS: OXYBUTYNIN XL 5 MG TAB.ER.24 PO SCH (08:36)
[2018-02-12] MEDS: clonazePAM 1 MG TAB PO SCH ×3 (08:37→22:50)
[2018-02-12] MEDS: LISINOPRIL 20 MG TAB PO SCH (08:37)
[2018-02-12] MEDS: FUROSEMIDE 40 MG TAB PO SCH ×2 (08:37→15:20)
[2018-02-12] MEDS: predniSONE 20 MG TAB PO SCH (08:37)
[2018-02-12] MEDS: ACETAMINOPHEN TAB 325 MG TAB PO SCH ×2 (08:37→22:50)
[2018-02-12] MEDS: GABAPENTIN 100 MG CAP PO SCH ×2 (08:37→22:50)
[2018-02-12] MEDS: CITALOPRAM HYDROBROMIDE 20 MG TAB PO SCH (08:37)
[2018-02-12] MEDS: PANTOPRAZOLE 40 MG TABLET PO SCH (08:37)
[2018-02-12] MEDS: DIVALPROEX 250 MG TABLET.DR PO SCH (08:37)
[2018-02-12] MEDS: SODIUM CHLORIDE 0.9% 1,000 ML IV SCH ×2 (08:41→17:05)
[2018-02-12 09:51] LABS: Basophils % (A) 0 %; Eosinophils # (A) 0.2 k/uL (0-0.7); Eosinophils % (A) 2 %; HGB 9.2 gm/dL (11.4-16.0); Hypochromasia Slight; Lymphocytes # (A) 1.4 k/uL (1.0-4.8); Lymphocytes % (A) 16 %; MCH 33.2 pg (25.0-35.0); MCHC 31.5 g/dL (31.0-37.0); MCV 105.1 fL (80.0-100.0); Macrocytosis Slight; Mean Platelet Volume 7.2; Monocytes # (A) 0.6 k/uL (0-1.0); Monocytes % (A) 7 %; Neutrophils # (A) 6.4 k/uL (1.3-7.7); Neutrophils % (A) 73 %; Platelet Count 148 k/uL (150-450); RBC 2.76 m/uL (3.80-5.40); RDW 12.8 % (11.5-15.5); WBC 8.7 k/uL (3.8-10.6)
[2018-02-12 09:59] LABS: Albumin 2.5 g/dL (3.5-5.0); Calcium 8.4 mg/dL (8.4-10.2); Potassium 4.7 mmol/L (3.5-5.1); Total Bilirubin 0.3 mg/dL (0.2-1.3); Total Protein 4.5 g/dL (6.3-8.2)
[2018-02-12 11:30] LABS: Glucose,Whole Blood 198 mg/dL (75-99)
[2018-02-12] MEDS: CHOLESTYRAMINE (WITH SUGAR) 4 GM PACKET PO SCH ×3 (11:58→18:10)
[2018-02-12] MEDS: NYSTATIN 100,000 UNIT/GM POWD 15 GM TOPICAL SCH ×3 (12:00→22:50)
--- NOTE | 2018-02-12 13:07 | P.CRDCN ---
History of Present Illness Consult date: 02/12/18 Requesting physician: Chris Yi Reason for Consult (text): Medication Management Chief complaint: weakness, tiredness History of present illness: A pleasant 72-year-old female patient who follows with Dr. Blackwell in the office. She has a history of CAD with prior stenting of the RCA and LAD. She had been previously complaining of some chest discomfort and recently underwent repeat cardiac catheterization by Dr. Blackwell on January 19 at which time he found mild in-stent restenosis involving the proximal LAD and critical disease involving the ostial/proximal left circumflex. She is scheduled to undergo PCI of the left circumflex in the next couple of weeks. She presented to the hospital on this occasion also complains of feeling weak and tired. Upon admission patient was found to be dehydrated with probable UTI. The patient, she's been eating and drinking okay but has been dealing with significant diarrhea. Stool for C. diff was negative. She is currently receiving IV fluids and by mouth ciprofloxacin. She has not been experiencing chest discomfort recently. He is currently on aspirin 81 mg daily, atorvastatin 40 mg daily, cholestyramine, Lasix 40 mg by mouth twice a day and isosorbide 60 mg by mouth daily, lisinopril 20 mg by mouth daily, metoprolol tartrate 25 mg by mouth twice a day. Upon examination, patient is sitting up in bed eating her lunch. She verbalizes feeling quite a bit better. She does not feel as weak and tired. She denies current complaints of chest discomfort, shortness of breath, dizziness, lightheadedness or palpitations. Past Medical History Past Medical History: Asthma, Coronary Artery Disease (CAD), Cancer, Chest Pain / Angina, CVA/TIA, Diabetes Mellitus, GERD/Reflux, Hyperlipidemia, Hypertension , Memory Impairment, Pneumonia, Sleep Apnea/CPAP/BIPAP Additional Past Medical History / Comment(s): IDDM type II, TAMRA unable to tolerate CPAP, bronchitis, chronic low back pain- bulging discs, scoliosis, urinary incontinence, IBS, gastric ulcers, hiatal hernia, TIA 3 yrs roughly ago- memory impairment, uses O2 @2l continuously, hypothyroid, hemorrhoids, anemia, Cervical CA hysterectomy, sinus problems at times. History of Any Multi-Drug Resistant Organisms: MRSA Date of last positivie culture/infection: 04/02/11 MDRO Source:: L chest/L lower leg/ankle Past Surgical History: Bladder Surgery, Cholecystectomy, Heart Catheterization, Heart Catheterization With Stent, Hysterectomy Additional Past Surgical History / Comment(s): PCI with a total of 5 stents per pt with last stent placed 06/29/16, partial parathyroidectomy, bilateral cataracts removed, I and D of L chest wall abscess and L ankle wound, bladder surgery with implant of stimulator system 02/2010, EGD/colonoscoy. Past Anesthesia/Blood Transfusion Reactions: No Reported Reaction Additional Past Anesthesia/Blood Transfusion Reaction / Comment(s): Pt states she has received blood in the past without reaction. Date of Last Stent Placement:: 06/29/16 Smoking Status: Never smoker - Past Family History Brother(s) Family Medical History: Coronary Artery Disease (CAD) Father Family Medical History: Cancer, Coronary Artery Disease (CAD) Additional Family Medical History / Comment(s): Father had prostate cancer. Mother Family Medical History: Asthma, COPD Medications and Allergies Home Medications Medication Instructions Recorded Confirmed Type Citalopram Hydrobromide [CeleXA] 40 mg PO DAILY 09/20/14 02/10/18 History clonazePAM [KlonoPIN] 1 mg PO TID 09/20/14 02/10/18 History Ferrous Sulfate [Iron (65 MG 325 mg PO DAILY tab 10/08/15 02/10/18 Rx Elemental)] traMADol HCl [Ultram] 50 mg PO TID 10/19/16 02/10/18 History Lisinopril [Zestril] 20 mg PO DAILY 12/21/16 02/10/18 History Nitroglycerin Sl Tabs [Nitrostat] 0.4 mg SUBLINGUAL Q5M PRN #30 tab 12/23/1610/21 Rx Atorvastatin [Lipitor] 40 mg PO HS 01/30/17 02/10/18 History Furosemide [Lasix] 40 mg PO BID@0900,1600 tab 05/17/17 02/10/18 Rx Aspirin EC [Ecotrin Low Dose] 81 mg PO DAILY 12/14/17 02/10/18 History Cholecalciferol (Vitamin D3) 2,000 unit PO DAILY 12/14/17 02/10/18 History [Vitamin D3] Gabapentin [Neurontin] 100 mg PO BID 12/14/17 02/10/18 History Insulin Aspart [NovoLOG See Protocol SQ ACHS 12/14/17 02/10/18 History (formulary)] Insulin Glargine,Hum.rec.anlog 50 unit SQ HS 12/14/17 02/10/18 History [Lantus Solostar] Ipratropium-Albuterol Nebulize 3 ml INHALATION RT-QID PRN 12/14/17 02/10/18 History [Duoneb 0.5 mg-3 mg/3 ml Soln] Isosorbide Mononitrate ER [Imdur] 60 mg PO DAILY 12/14/17 02/10/18 History Metoprolol Tartrate [Lopressor] 25 mg PO BID 12/14/17 02/10/18 History Pantoprazole Sodium [Protonix] 40 mg PO DAILY 12/14/17 02/10/18 History predniSONE 20 mg PO DAILY 12/14/17 02/10/18 History Nystatin 100,000 Unit/gm Powd 1 applic TOPICAL TID applic 12/20/17 02/10/18 Rx [Mycostatin Powder] Acetaminophen [Tylenol] 325 mg PO BID 01/16/18 02/10/18 History Divalproex [Depakote] 250 mg PO DAILY 01/16/18 02/10/18 History Miconazole Nitrate [Lotrimin AF 1 applic TOPICAL DAILY PRN 01/16/18 02/10/18 History Powder] Oxybutynin Chloride [Ditropan XL] 5 mg PO DAILY 01/16/18 02/10/18 History Allergies Allergy/AdvReac Type Severity Reaction Status Date / Time latex Allergy Mild Rash/Hives Verified 02/10/18 13:14 codeine Allergy Anaphylaxis Verified 02/10/18 13:14 morphine Allergy Hallucinati Verified 02/10/18 13:14 ons Penicillins Allergy Anaphylaxis Verified 02/10/18 13:14 propoxyphene napsylate Allergy Anaphylaxis Verified 02/10/18 13:14 [From Darvocet-N 100] tuberculin, purified protein Allergy Rash/Hives Verified 02/10/18 13:14 deriva [tuberculin,purif.prot.deriv.] adhesive AdvReac Mild Rash/Hives, Verified 02/10/18 13:14 W/ TAPES, CAN USE PAPER TAPE Physical Exam Vitals: Vital Signs Temp Pulse Resp BP Pulse Ox 02/12/18 08:00 50 L 16 02/12/18 07:00 98 F 50 L 16 91/48 99 02/12/18 00:25 16 02/11/18 23:00 98.7 F 60 16 124/57 95 02/11/18 21:50 98.4 F 88 16 112/61 94 L 02/11/18 14:34 98.6 F 56 L 15 110/56 100 Intake and Output 02/11/18 02/12/18 02/12/18 22:59 06:59 14:59 Intake Total 900 900 Output Total 700 480 Balance 200 420 Intake: Intake, IV Titration 500 600 Amount Sodium Chloride 0.9% 1, 500 600 000 ml @ 75 mls/hr IV . [id number] [facility] Rx#:[id number] Oral 400 300 Output: Urine 700 480 Other: Voiding Method Incontinent PHYSICAL EXAMINATION: HEENT: Head is atraumatic, normocephalic. Pupils equal, round. Neck is supple. There is no elevated jugular venous pressure. HEART EXAMINATION: Heart sounds regular, S1 and S2 normal. No murmur or gallop heard. CHEST EXAMINATION: Lungs are clear to auscultation and precussion. No chest wall tenderness is noted on palpation or with deep breathing. ABDOMEN: Soft, obese, nontender. Bowel sounds are heard. No organomegaly noted. EXTREMITIES: 1+ peripheral pulses with evidence of 1+ peripheral edema and no calf tenderness noted. NEUROLOGIC patient is awake, alert and oriented x3. . Results 02/12/18 09:04 02/12/18 09:04 Cardiac Enzymes 02/12/18 Range/Units 09:04 AST 15 (14-36) U/L CBC 02/12/18 Range/Units 09:04 WBC 8.7 (3.8-10.6) k/uL RBC 2.76 L (3.80-5.40) m/uL Hgb 9.2 L (11.4-16.0) gm/dL Hct 29.0 L (34.0-46.0) % Plt Count 148 L (150-450) k/uL Comprehensive Metabolic Panel 02/12/18 Range/Units 09:04 Sodium 139 (137-145) mmol/L Potassium 4.7 (3.5-5.1) mmol/L Chloride 100 (98-107) mmol/L Carbon Dioxide 37 H (22-30) mmol/L BUN 39 H (7-17) mg/dL Creatinine 1.20 H (0.52-1.04) mg/dL Glucose 185 H (74-99) mg/dL Calcium 8.4 (8.4-10.2) mg/dL AST 15 (14-36) U/L ALT 24 (9-52) U/L Alkaline Phosphatase 25 L (38-126) U/L Total Protein 4.5 L (6.3-8.2) g/dL Albumin 2.5 L (3.5-5.0) g/dL Current Medications Generic Name Dose Route Start Last Admin Trade Name Freq PRN Reason Stop Dose Admin Acetaminophen 325 mg 02/10/18 21:00 02/12/18 08:37 Tylenol Tab PO 325 mg BID JAVIER Administration Albuterol/Ipratropium 3 ml 02/10/18 10:49 Duoneb 0.5 Mg-3 Mg/3 Ml Soln INHALATION RT-QID PRN Shortness Of Breath Aspirin 81 mg 02/11/18 09:00 02/12/18 08:36 Aspirin PO 81 mg DAILY JAVIER Administration Atorvastatin Calcium 40 mg 02/13/18 09:00 Lipitor PO DAILY JAVIER Cholecalciferol 2,000 unit 02/11/18 09:00 02/12/18 08:36 Vitamin D3 PO 2,000 unit DAILY JAVIER Administration Cholestyramine Resin 4 gm 02/11/18 10:00 02/12/18 11:58 Questran PO 4 gm TID BETWEEN MEALS JAVIER Administration Ciprofloxacin 500 mg 02/11/18 11:30 02/12/18 08:36 Cipro PO 500 mg BID JAVIER Administration Citalopram Hydrobromide 40 mg 02/11/18 09:00 02/12/18 08:37 Celexa PO 40 mg DAILY JAVIER Administration Clonazepam 1 mg 02/10/18 16:00 02/12/18 08:37 Klonopin PO 1 mg TID JAVIER Administration Divalproex Sodium 250 mg 02/11/18 09:00 02/12/18 08:37 Depakote PO 250 mg DAILY JAVIER Administration Ferrous Sulfate 325 mg 02/11/18 09:00 02/12/18 08:36 Feosol PO 325 mg DAILY JAVIER Administration Furosemide 40 mg 02/10/18 16:00 02/12/18 08:37 Lasix PO 40 mg BID@0900,1600 JAVIER Administration Gabapentin 100 mg 02/10/18 21:00 02/12/18 08:37 Neurontin PO 100 mg BID JAVIER Administration Sodium Chloride 1,000 mls @ 100 mls/hr 02/10/18 23:15 02/12/18 08:41 Saline 0.9% IV Not Given .Q10H JAVIER Insulin Aspart 0 unit 02/10/18 12:30 02/12/18 07:38 Novolog SQ 2 unit ACHS JAVIER Administration Protocol Insulin Detemir 50 unit 02/10/18 21:00 02/11/18 22:41 Levemir SQ 50 unit HS JAVIER Administration Isosorbide Mononitrate 60 mg 02/11/18 09:00 02/12/18 08:36 Imdur PO 60 mg DAILY JAVIER Administration Lisinopril 20 mg 02/11/18 09:00 02/12/18 08:37 Zestril PO 20 mg DAILY JAVIER Administration Metoprolol Tartrate 25 mg 02/10/18 21:00 02/12/18 08:20 Lopressor PO Not Given BID [facility] Naloxone HCl 0.2 mg 02/10/18 10:47 Narcan IV Q2M PRN Opioid Reversal Nitroglycerin 0.4 mg 02/10/18 10:49 Nitrostat SUBLINGUAL Q5M PRN Chest Pain Nystatin 1 applic 02/10/18 16:00 02/12/18 12:00 Mycostatin Powder TOPICAL 1 applic TID JAVIER Administration Oxybutynin Chloride 5 mg 02/11/18 09:00 02/12/18 08:36 Ditropan Xl PO 5 mg DAILY JAVIER Administration Pantoprazole Sodium 40 mg 02/11/18 07:30 02/12/18 08:37 Protonix PO 40 mg [id number] JAVIER Administration Prednisone 20 mg 02/11/18 09:00 02/12/18 08:37 PO 20 mg DAILY JAVIER Administration Tramadol HCl 50 mg 02/10/18 16:00 02/12/18 08:36 Ultram PO 50 mg TID JAVIER Administration Intake and Output 02/11/18 02/12/18 02/12/18 22:59 06:59 14:59 Intake Total 900 900 Output Total 700 480 Balance 200 420 Intake: Intake, IV Titration 500 600 Amount Sodium Chloride 0.9% 1, 500 600 000 ml @ 75 mls/hr IV . [id number] [facility] Rx#:[id number] Oral 400 300 Output: Urine 700 480 Other: Voiding Method Incontinent 02/12/18 09:04 02/12/18 09:04 Assessment and Plan Assessment: #1 generalized weakness likely secondary to dehydration and UTI #2 urinary tract infection #3 dehydration #4 known CAD with PTCA planned for March 02, patient is currently chest pain- free #5 hypertension #6 hyperlipidemia 7 morbid obesity Plan: From cardiology's perspective, medications were reviewed, will resume atorvastatin. Continue all other medications at this time. For now, We'll plan for PTCA as scheduled. Further recommendations to follow depending on patient's clinical course. MANUFACT[employer]ING [employer]USTRI[employer] ENGINE[employer] note has been reviewed, I agree with a documented findings and plan of care. Patient was seen and examined.
--- NOTE | 2018-02-12 13:23 | P.PN ---
Subjective Progress Note Date: 02/12/18 72-year-old female seen at the bedside. Patient states she has not had any loose stools no bowel movements since being admitted reports no nausea vomiting. C. diff was negative computed tomography scan pelvis without contrast report indicated no acute abnormality noted patient lives [place] and states uses a walker patient states feels better less tired less fatigue Objective - Vital Signs Vital signs: Vital Signs Temp 98 F 02/12/18 07:00 Pulse 50 L 02/12/18 08:00 Resp 16 02/12/18 08:00 BP 91/48 02/12/18 07:00 Pulse Ox 99 02/12/18 07:00 Intake & Output 02/11/18 02/12/18 02/12/18 18:59 06:59 18:59 Intake Total 1010 1800 Output Total 1180 Balance 1010 620 Intake: Intake, IV Titration 300 1100 Amount Sodium Chloride 0.9% 1, 300 1100 000 ml @ 75 mls/hr IV . [id number] [facility] Rx#:[id number] Oral 710 700 Output: Urine 1180 Other: Voiding Method Incontinent # Bowel Movements 3 - Exam Physical exam 72-year-old female resting in bed appears in no acute distress Lungs adequate air movement bilaterally on room air Heart S1-S2 audible regular denying chest pain when questioning. No chest wall tenderness noted. Abdomen obese soft nontender states no stool no bowel movement since being admitted denies nausea vomiting Extremities 1+ peripheral edema no calf tenderness med boots on bilaterally - Labs CBC & Chem 7: 02/12/18 09:04 02/12/18 09:04 Labs: Abnormal Lab Results - Last 24 Hours (Table) 02/11/18 02/11/18 02/12/18 Range/Units 17:16 22:22 06:55 RBC (3.80-5.40) m/uL Hgb (11.4-16.0) gm/dL Hct (34.0-46.0) % MCV (80.0-100.0) fL Plt Count (150-450) k/uL Carbon Dioxide (22-30) mmol/L BUN (7-17) mg/dL Creatinine (0.52-1.04) mg/dL Glucose (74-99) mg/dL POC Glucose (mg/dL) 265 H 411 H 170 H (75-99) mg/dL Alkaline Phosphatase (38-126) U/L Total Protein (6.3-8.2) g/dL Albumin (3.5-5.0) g/dL 02/12/18 02/12/18 02/12/18 Range/Units 09:04 09:04 11:18 RBC 2.76 L (3.80-5.40) m/uL Hgb 9.2 L (11.4-16.0) gm/dL Hct 29.0 L (34.0-46.0) % MCV 105.1 H (80.0-100.0) fL Plt Count 148 L (150-450) k/uL Carbon Dioxide 37 H (22-30) mmol/L BUN 39 H (7-17) mg/dL Creatinine 1.20 H (0.52-1.04) mg/dL Glucose 185 H (74-99) mg/dL POC Glucose (mg/dL) 198 H (75-99) mg/dL Alkaline Phosphatase 25 L (38-126) U/L Total Protein 4.5 L (6.3-8.2) g/dL Albumin 2.5 L (3.5-5.0) g/dL Microbiology - Last 24 Hours (Table) 02/11/18 08:45 Urine Culture - Preliminary Urine,Clean Catch 02/11/18 08:45 Stool Culture - Preliminary Stool Assessment and Plan Assessment: Impression Present on admission generalized weakness increased fatigue decreased endurance suspect due to UTI with dehydration Morbid obesity BMI 57 Hyperlipidemia Known coronary artery disease with prior coronary stenting currently chest pain free Present on admission report of frequent diarrhea loose stools with a CAT scan of the abdomen without contrast showing no acute abnormality of the pelvis Plan No evidence of an acute surgical abdomen IV fluid for hydration Will follow with you addressing clinical surgical issues as they arise Continue diet consistent carbs as ordered Neurological workup in progress PT OT eval The above impression and plan of care have been discussed and directed by signing physician. Gregoria De La Cruz nurse practitioner acting as scribe for signing physician.
[2018-02-12 17:02] LABS: Glucose,Whole Blood 215 mg/dL (75-99)
--- NOTE | 2018-02-12 18:51 | PN ---
PROGRESS NOTE SUBJECTIVE: 72-year-old obese white female who is complaining of pain in her foot. Possibly her knee and hip. All x-rays are negative. She states EMS had dropped her. She still has some leg weakness. She does not want to go to the retirement. She wants to go to back to [facility] for physical therapy. She had an episode of hypotensive for which blood pressure medicines have been adjusted per Cardiology. Continue on current treatments at this time and possible discharge home next 24 to 48 hours. Her abdominal pain is improving. Cardiovascular S1, S2. Lungs are clear. Endocrine: BMI is over 40. GI: Increased bowel sounds x4. Generalized distention. No mass. ASSESSMENT: 1. Hypotension. 2. Coronary artery disease. 3. Peripheral artery disease. Cardiology and surgery saw the patient today. Cardiology started her cholesterol pill back. Continue all other medicines. Continue on the right coronary artery angioplasty as scheduled. Possible discharge home in the next 24 to 48 hours. MMODL / IJN: [id number] /
[2018-02-12 20:50] LABS: Glucose,Whole Blood 317 mg/dL (75-99)
[2018-02-12] MEDS: INSULIN DETEMIR 100 UNIT/ML 10 ML VIAL SQ SCH (22:50)
--- NOTE | 2018-02-13 00:35 | P.PN ---
Subjective Progress Note Date: 02/12/18 This is a Neurology follow-up for generalized weakness and urinary tract infection with encephalopathy. The patient was complaining of leg pain but all of her x-rays have been negative thus far. She did have an episode of hypotension and her blood pressure medications have been adjusted by cardiology. Patient otherwise seems to be resting comfortably. She is being evaluated for diarrhea and loose stools for the last several days. Her C. difficile antibody came back negative. She is being followed closely by Gen. surgery. Computed tomography scan of the pelvis without contrast indicated no acute abnormality. She does have evidence of an acute metabolic encephalopathy secondary to sepsis. She underwent routine EEG today which will be reviewed. Her overall prognosis at this time remains guarded. Objective - Vital Signs Vital signs: Vital Signs Temp 97.6 F 02/12/18 15:00 Pulse 56 L 02/12/18 15:00 Resp 16 02/12/18 15:00 BP 132/63 02/12/18 15:00 Pulse Ox 99 02/12/18 15:00 Intake & Output 02/11/18 02/12/18 02/12/18 18:59 06:59 18:59 Intake Total 1010 1800 1300 Output Total 1180 700 Balance 1010 620 600 Intake: Intake, IV Titration 300 1100 800 Amount Sodium Chloride 0.9% 1, 300 1100 800 000 ml @ 100 mls/hr IV . Q10H [facility] Rx#:[id number] Oral 710 700 500 Output: Urine 1180 700 Other: Voiding Method Incontinent # Bowel Movements 3 - Exam Physical Examination: PHYSICAL EXAMINATION: Patient is resting comfortably in bed. VITAL SIGNS: Blood pressure is [132/74]. Heart rate is [60]. Respiration is [16] . Temperature is [97.9]. HEENT: Head is atraumatic, neck is supple, there were no carotid bruits. CHEST: Lungs are clear to auscultation and percussion. CARDIAC: S1, S2 normal rate and rhythm. There is no murmur. ABDOMEN: Soft and nontender. Bowel sounds are present. EXTREMITIES: There is no pedal edema. Peripheral pulses are present. Neurological examination: Patient's neurological examination is unchanged from yesterday. - Constitutional General appearance: Present: cooperative, morbidly obese - Labs CBC & Chem 7: 02/12/18 09:04 02/12/18 09:04 Labs: Abnormal Lab Results - Last 24 Hours (Table) 02/11/18 02/12/18 02/12/18 Range/Units 22:22 06:55 09:04 RBC 2.76 L (3.80-5.40) m/uL Hgb 9.2 L (11.4-16.0) gm/dL Hct 29.0 L (34.0-46.0) % MCV 105.1 H (80.0-100.0) fL Plt Count 148 L (150-450) k/uL Carbon Dioxide (22-30) mmol/L BUN (7-17) mg/dL Creatinine (0.52-1.04) mg/dL Glucose (74-99) mg/dL POC Glucose (mg/dL) 411 H 170 H (75-99) mg/dL Alkaline Phosphatase (38-126) U/L Total Protein (6.3-8.2) g/dL Albumin (3.5-5.0) g/dL 02/12/18 02/12/18 02/12/18 Range/Units 09:04 11:18 16:50 RBC (3.80-5.40) m/uL Hgb (11.4-16.0) gm/dL Hct (34.0-46.0) % MCV (80.0-100.0) fL Plt Count (150-450) k/uL Carbon Dioxide 37 H (22-30) mmol/L BUN 39 H (7-17) mg/dL Creatinine 1.20 H (0.52-1.04) mg/dL Glucose 185 H (74-99) mg/dL POC Glucose (mg/dL) 198 H 215 H (75-99) mg/dL Alkaline Phosphatase 25 L (38-126) U/L Total Protein 4.5 L (6.3-8.2) g/dL Albumin 2.5 L (3.5-5.0) g/dL Microbiology - Last 24 Hours (Table) 02/11/18 08:45 Urine Culture - Preliminary Urine,Clean Catch 02/11/18 08:45 Stool Culture - Preliminary Stool Assessment and Plan (1) Acute metabolic encephalopathy Current Visit: Yes Status: Acute Code(s): G93.41 - METABOLIC ENCEPHALOPATHY SNOMED Code(s): 55203805 (2) Generalized weakness Current Visit: Yes Status: Acute Code(s): R53.1 - WEAKNESS SNOMED Code(s) : 89091522 (3) Morbid obesity Current Visit: Yes Status: Acute Code(s): E66.01 - MORBID (SEVERE) OBESITY DUE TO EXCESS CALORIES SNOMED Code(s): 100156737 (4) Renal insufficiency syndrome Current Visit: Yes Status: Acute Code(s): N28.9 - DISORDER OF KIDNEY AND URETER, UNSPECIFIED SNOMED Code(s): 887033320 (5) Acute on chronic renal failure Current Visit: No Status: Acute Code(s): N17.9 - ACUTE KIDNEY FAILURE, UNSPECIFIED; N18.9 - CHRONIC KIDNEY DISEASE, UNSPECIFIED SNOMED Code(s): 199850380 (6) Confusion Current Visit: No Status: Acute Code(s): R41.0 - DISORIENTATION, UNSPECIFIED SNOMED Code(s): 077966852 (7) Diabetes mellitus type 2 in obese Current Visit: No Status: Acute Code(s): E11.69 - TYPE 2 DIABETES MELLITUS WITH OTHER SPECIFIED COMPLICATION; E66.9 - OBESITY, UNSPECIFIED SNOMED Code(s) : 63611436 Plan: This patient is a 72-year-old female who was admitted to hospital with generalized weakness. The patient has been residing at [facility]. She has been noted to show a decline in her ability to ambulate over the last several weeks. She has been more confined to her room and to her bed. Patient had a fall recently and required help from EMS. She was subsequently brought into the hospital for further evaluation. She was seen in the ER by Dr. Powell. She was admitted for dehydration and generalized weakness. She has a history of cardiac stent placement in the past and apparently has 5 stents. She has been complaining of weakness that has been progressive over the last several months. She has also been complaining of chronic diarrhea for the past several months. Apparently this is been ongoing for over 5 months. Surgery has been consulted and we will await their further recommendations. We have recommended patient undergo a computed tomography scan of the brain to rule out acute stroke. She was seen by cardiology and her blood pressure medications are being adjusted. She had an episode of hypotension yesterday. She was started on a statin drug. She is being treated for dehydration and should be closely monitored in terms of her metabolic abnormalities. Would recommend physical therapy consultation and possible inpatient rehab depending on her progress. Patient expressed [facility] return [facility] at the time of discharge. Overall prognosis at this time remains guarded. We will continue close neurological follow-up for the patient during this admission.
[2018-02-13] MEDS: ACETAMINOPHEN TAB 325 MG TAB PO SCH ×2 (01:14→21:28)
[2018-02-13] MEDS: SODIUM CHLORIDE 0.9% 1,000 ML IV SCH ×2 (07:33→09:13)
[2018-02-13 07:42] LABS: Glucose,Whole Blood 146 mg/dL (75-99)
[2018-02-13] MEDS: clonazePAM 1 MG TAB PO SCH ×3 (09:09→21:28)
[2018-02-13] MEDS: CITALOPRAM HYDROBROMIDE 20 MG TAB PO SCH (09:09)
[2018-02-13] MEDS: GABAPENTIN 100 MG CAP PO SCH ×2 (09:09→21:28)
[2018-02-13] MEDS: METOPROLOL TARTRATE 25 MG TAB PO SCH ×2 (09:10→21:27)
[2018-02-13] MEDS: ATORVASTATIN 40 MG TAB PO SCH (09:10)
[2018-02-13] MEDS: LISINOPRIL 20 MG TAB PO SCH (09:10)
[2018-02-13] MEDS: predniSONE 20 MG TAB PO SCH (09:10)
[2018-02-13] MEDS: CHOLECALCIFEROL 1,000 UNIT TAB PO SCH (09:10)
[2018-02-13] MEDS: ISOSORBIDE MONONITRATE ER 60 MG TAB.ER.24H PO SCH (09:10)
[2018-02-13] MEDS: FUROSEMIDE 40 MG TAB PO SCH ×2 (09:10→16:37)
[2018-02-13] MEDS: FERROUS SULFATE 325 MG TAB PO SCH (09:10)
[2018-02-13] MEDS: OXYBUTYNIN XL 5 MG TAB.ER.24 PO SCH (09:10)
[2018-02-13] MEDS: PANTOPRAZOLE 40 MG TABLET PO SCH (09:10)
[2018-02-13] MEDS: traMADol 50 MG TAB PO SCH ×3 (09:10→21:28)
[2018-02-13] MEDS: CIPROFLOXACIN HCL 500 MG TAB PO SCH ×2 (09:11→22:50)
[2018-02-13] MEDS: ASPIRIN 81 MG PO SCH (09:11)
[2018-02-13] MEDS: INSULIN ASPART 100 UNIT/ML 1 ML 10 ML VIAL SQ SCH ×4 (09:11→22:50)
[2018-02-13] MEDS: DIVALPROEX 250 MG TABLET.DR PO SCH (09:12)
[2018-02-13] MEDS: CHOLESTYRAMINE (WITH SUGAR) 4 GM PACKET PO SCH ×4 (09:12→21:42)
[2018-02-13] MEDS: NYSTATIN 100,000 UNIT/GM POWD 15 GM TOPICAL SCH ×3 (09:13→22:51)
--- NOTE | 2018-02-13 09:49 | DS ---
DISCHARGE SUMMARY DISCHARGE DIAGNOSES: 1. Failure to thrive. 2. Acute metabolic encephalopathy. 3. Knee contusion. 4. Foot contusion. 5. Hip contusion. 6. Hypomagnesemia. 7. Gait imbalance. 8. Extreme weakness. 9. Generalized weakness. 10.History of peripheral arterial disease in the right leg. 11.Coronary artery disease. 12.Hypertension. 13.Chronic obstructive pulmonary disease. 14.Diabetes mellitus. 15.Hypercholesterolemia. 16.Mood disorder. CONDITION: Stable. PROGNOSIS: Guarded. Ambulate as tolerated. DISCHARGE MEDICATIONS: 1. Lipitor 40 mg daily or atorvastatin 40 mg daily, either one. 2. Cholestyramine 4 grams t.i.d. 3. Cipro 500 b.i.d. for a week. 4. Klonopin 1 mg t.i.d. 5. Celexa 40 mg daily. 6. Ferrous sulfate 325 daily. 7. Zestril 20 mg daily. 8. Nitroglycerin sublingual p.r.n. 9. Lasix 40 mg b.i.d. 10.Protonix 40 mg daily. 11.Lopressor 25 b.i.d. 12.Imdur 60 mg daily. 13.Neurontin 100 mg b.i.d. 14.Vitamin D3, 2000 units daily. 15.Aspirin 81 mg daily. 16.Lantus 50 units at night. 17.DuoNeb q.i.d., [facility]. 18.Prednisone 20 mg daily. 19.Insulin sliding scale a.c. and at bedtime. 20.Nystatin powder topically t.i.d. 21.Oxybutynin 5 mg daily. 22.Depakote 250 mg daily. 23.Tylenol 325 b.i.d. 24.Miconazole or Lotrimin AF powder topically p.r.n. on abdominal folds. 25.Tramadol 50 mg t.i.d. HOSPITAL COURSE OF EVENTS: This is a white female who came in with extreme weakness with a fall at home. Due to general weakness, she will need physical therapy. No fractures were found. She was found to have possibly gastroenteritis. Questran was given for diarrhea. was given for gastroenteritis. Otherwise due to extreme weakness and fatigue and contusions from the fall from the EMS, she will need physical therapy for one or two weeks. She requested to go to [facility] by her house. MMSTEPHENIE / IJN: [id number] /
[2018-02-13 12:00] LABS: Glucose,Whole Blood 216 mg/dL (75-99)
--- NOTE | 2018-02-13 12:35 | P.PN ---
Progress Note - Text Progress Note Date: 02/13/18 72-year-old female seen at the bedside denying abdominal pain nausea vomiting or diarrhea patient states has not had any since admission and is feeling stronger abdomen is obese soft nontender no evidence of an acute surgical abdomen no further surgical recommendations at this time we'll sign off and re- eval as needed Discharge plan per the attending possible ECF placement The above impression and plan of care have been discussed and directed by signing physician. Gregoria De La Cruz nurse practitioner acting as scribe for signing physician.
--- NOTE | 2018-02-13 14:26 | P.PN ---
Subjective This is a pleasant 72-year-old female past medical history significant for coronary artery disease awaiting elective PCI on 03/02 of the left circumflex, hypertension and dyslipidemia. She follows with Dr. Mancera in the office. She has been diagnosed with urinary tract infection and dehydration. She states she is awaiting placement at a rehab facility for physical therapy. She denies symptoms of chest pain, shortness of breath, dizziness or palpitations. Blood pressure 1 3455 heart rate 55 afebrile maintaining oxygen saturation on nasal cannula. Currently maintained on aspirin 81 mg daily, atorvastatin 40 mg daily, Lasix 40 mg by mouth twice a day , Imdur 60 mg daily, lisinopril 20 mg daily and metoprolol 25 mg twice a day. GENERAL: Well-appearing, well-nourished and in no acute distress. NECK: Supple without JVD or thyromegaly. LUNGS: Breath sounds clear to auscultation bilaterally. Respiration equal and unlabored. No wheezes, rales or rhonchi. HEART: Regular rate and rhythm without murmurs, rubs or gallops. S1 and S2 heard. EXTREMITIES: Normal range of motion, 1+ bilateral lower extremity edema. No clubbing or cyanosis. Peripheral pulses intact. ASSESSMENT Generalized weakness secondary to dehydration and urinary tract infection Urinary tract infection Dehydration history of coronary artery disease with PTCA planned March 02, patient continues to be chest pain-free Hypertension Dyslipidemia Morbid obesity, BMI 57 PLAN Stable from a cardiac perspective. Continue current medical regimen. We'll plan for PTCA scheduled March 02October the patient should develop chest discomfort prior to that. We will continue to follow as needed, please feel free to call with further questions or concerns. Nurse Practitioner note has been reviewed, I agree with a documented findings and plan of care. Patient was seen and examined. Objective - Vital Signs Vital signs: Vital Signs Temp 98.2 F 02/13/18 07:35 Pulse 55 L 02/13/18 07:35 Resp 17 02/13/18 07:40 BP 134/55 02/13/18 07:35 Pulse Ox 100 02/13/18 07:35 Intake & Output 02/12/18 02/13/18 02/13/18 18:59 06:59 18:59 Intake Total 1300 2650 1026 Output Total 1550 2000 Balance -574 037 6355 Intake: Intake, IV Titration 800 1450 Amount Sodium Chloride 0.9% 1, 800 1450 000 ml @ 100 mls/hr IV . Q10H [facility] Rx#:[id number] Oral 500 1200 1026 Output: Urine 1550 2000 Other: Voiding Method Incontinent Incontinent Incontinent # Voids 1 1 - Labs CBC & Chem 7: 02/12/18 09:04 02/12/18 09:04 Labs: Abnormal Lab Results - Last 24 Hours (Table) 02/12/18 02/12/18 02/13/18 Range/Units 16:50 20:39 07:30 POC Glucose (mg/dL) 215 H 317 H 146 H (75-99) mg/dL 02/13/18 Range/Units 11:49 POC Glucose (mg/dL) 216 H (75-99) mg/dL Microbiology - Last 24 Hours (Table) 02/11/18 08:45 Urine Culture - Preliminary Urine,Clean Catch Gram Neg Bacilli
[2018-02-13 17:11] LABS: Glucose,Whole Blood 309 mg/dL (75-99)
--- NOTE | 2018-02-13 18:49 | EEG ---
ELECTROENCEPHALOGRAM REPORT DATE OF EE02/12/2018 ELECTROENCEPHALOGRAPHIC EXAMINATION REPORT: INDICATION FOR EXAMINATION: This patient is a 72-year-old female being evaluated for generalized weakness and failure to thrive. AGE: [age]. EEG FINDINGS: A routine 21-channel awake digital EEG recording was accomplished utilizing the 10-20 international system with bipolar and referential montages. The background activity in the most alert resting state consists of a low to medium amplitude, poorly developed and poorly sustained 6-7 Hz activity over the posterior head regions. This posterior rhythm attenuates to eye opening. There is a moderate amount of low amplitude 18-20 Hz beta activity seen maximally over the anterior head regions. Muscle and movement artifact was observed on several occasions throughout the tracing. Hyperventilation was not performed. Photic stimulation at flash frequencies of 2-30 Hz produced an excessive amount of beta activity. No epileptiform discharges were seen. IMPRESSION: This EEG is mildly abnormal in a diffuse fashion due to slight slowing of the EEG background. The EEG failed to reveal any focal, lateralized, or epileptiform abnormalities. Clinical correlation is recommended. MMODL / IJN: [id number] /
[2018-02-13 20:25] LABS: Glucose,Whole Blood 335 mg/dL (75-99)
--- NOTE | 2018-02-13 21:15 | P.PN ---
Subjective Progress Note Date: 02/13/18 This is a Neurology follow-up for generalized weakness and urinary tract infection with encephalopathy. The patient was complaining of leg pain but all of her x-rays have been negative thus far. She did have an episode of hypotension and her blood pressure medications have been adjusted by cardiology. Patient otherwise seems to be resting comfortably. She is being evaluated for diarrhea and loose stools for the last several days. Her C. difficile antibody came back negative. She is being followed closely by Gen. surgery. Computed tomography scan of the pelvis without contrast indicated no acute abnormality. She does have evidence of an acute metabolic encephalopathy secondary to sepsis. She underwent routine EEG today which will be reviewed. Her EEG reveals mild slowing. No evidence of any epileptiform discharges. Patient states that she was given option of going to [facility] for subacute rehab but due to the financial charges she is avoiding this option at this time. Patient states she is considering discharge to home where she would contact outpatient physical therapy. Her overall prognosis at this time remains guarded. Objective - Vital Signs Vital signs: Vital Signs Temp 97.9 F 02/13/18 15:00 Pulse 60 02/13/18 15:00 Resp 16 02/13/18 15:00 BP 125/53 02/13/18 15:00 Pulse Ox 100 02/13/18 15:00 Intake & Output 02/12/18 02/13/18 02/13/18 18:59 06:59 18:59 Intake Total 1300 2650 1026 Output Total 1550 2000 Balance -726 700 4327 Intake: Intake, IV Titration 800 1450 Amount Sodium Chloride 0.9% 1, 800 1450 000 ml @ 100 mls/hr IV . Q10H [facility] Rx#:[id number] Oral 500 1200 1026 Output: Urine 1550 1999 Other: Voiding Method Incontinent Incontinent Incontinent # Voids 1 1 - Exam Physical Examination: PHYSICAL EXAMINATION: Patient is resting comfortably in bed. VITAL SIGNS: Blood pressure is [125/53]. Heart rate is [60]. Respiration is [16] . Temperature is [97.9]. HEENT: Head is atraumatic, neck is supple, there were no carotid bruits. CHEST: Lungs are clear to auscultation and percussion. CARDIAC: S1, S2 normal rate and rhythm. There is no murmur. ABDOMEN: Soft and nontender. Bowel sounds are present. EXTREMITIES: There is no pedal edema. Peripheral pulses are present. Neurological examination: Patient's neurological examination is unchanged from yesterday. - Labs CBC & Chem 7: 02/12/18 09:04 02/12/18 09:04 Labs: Abnormal Lab Results - Last 24 Hours (Table) 02/12/18 02/13/18 02/13/18 Range/Units 20:39 07:30 11:49 POC Glucose (mg/dL) 317 H 146 H 216 H (75-99) mg/dL 02/13/18 Range/Units 17:00 POC Glucose (mg/dL) 309 H (75-99) mg/dL Microbiology - Last 24 Hours (Table) 02/11/18 08:45 Urine Culture - Preliminary Urine,Clean Catch Gram Neg Bacilli Assessment and Plan (1) Acute metabolic encephalopathy Current Visit: Yes Status: Acute Code(s): G93.41 - METABOLIC ENCEPHALOPATHY SNOMED Code(s): 52747750 (2) Generalized weakness Current Visit: Yes Status: Acute Code(s): R53.1 - WEAKNESS SNOMED Code(s) : 63398541 (3) Morbid obesity Current Visit: Yes Status: Acute Code(s): E66.01 - MORBID (SEVERE) OBESITY DUE TO EXCESS CALORIES SNOMED Code(s): 791052847 (4) Renal insufficiency syndrome Current Visit: Yes Status: Acute Code(s): N28.9 - DISORDER OF KIDNEY AND URETER, UNSPECIFIED SNOMED Code(s): 788370373 (5) Acute on chronic renal failure Current Visit: No Status: Acute Code(s): N17.9 - ACUTE KIDNEY FAILURE, UNSPECIFIED; N18.9 - CHRONIC KIDNEY DISEASE, UNSPECIFIED SNOMED Code(s): 149956500 (6) Confusion Current Visit: No Status: Acute Code(s): R41.0 - DISORIENTATION, UNSPECIFIED SNOMED Code(s): 344926584 (7) Diabetes mellitus type 2 in obese Current Visit: No Status: Acute Code(s): E11.69 - TYPE 2 DIABETES MELLITUS WITH OTHER SPECIFIED COMPLICATION; E66.9 - OBESITY, UNSPECIFIED SNOMED Code(s) : 63049737 Plan: This patient is a 72-year-old female who was admitted to hospital with generalized weakness. The patient has been residing at [facility]. She has been noted to show a decline in her ability to ambulate over the last several weeks. She has been more confined to her room and to her bed. Patient had a fall recently and required help from EMS. She was subsequently brought into the hospital for further evaluation. She was seen in the ER by Dr. Powell. She was admitted for dehydration and generalized weakness. She has a history of cardiac stent placement in the past and apparently has 5 stents. She has been complaining of weakness that has been progressive over the last several months. She has also been complaining of chronic diarrhea for the past several months. Apparently this is been ongoing for over 5 months. Surgery has been consulted and we will await their further recommendations. We have recommended patient undergo a computed tomography scan of the brain to rule out acute stroke. She was seen by cardiology and her blood pressure medications are being adjusted. She had an episode of hypotension yesterday. She was started on a statin drug. She is being treated for dehydration and should be closely monitored in terms of her metabolic abnormalities. Would recommend physical therapy consultation and possible inpatient rehab depending on her progress. Patient states she talked with the social studies teacher today and the cost of the rehab at [facility] is a financial burden for her. She is anticipating possible discharge to home with outpatient PT. Overall prognosis at this time remains guarded. We will continue close neurological follow-up for the patient during this admission.
[2018-02-13] MEDS: INSULIN DETEMIR 100 UNIT/ML 10 ML VIAL SQ SCH (22:50)
[2018-02-14] MEDS: SODIUM CHLORIDE 0.9% 1,000 ML IV SCH ×4 (05:02→23:38)
[2018-02-14 07:04] LABS: Glucose,Whole Blood 188 mg/dL (75-99)
--- NOTE | 2018-02-14 10:18 | P.ARTDOP ---
Arterial Doppler LOWER EXTREMITY ARTERIAL DOPPLER: DATE OF SERVICE: 02/11/2018 Reason for study: Bilateral leg pain. Doppler waveforms: Multiphasic throughout on the right. Multiphasic through the dorsalis pedis on the left.. Pulse volume recording: []. Pressure gradients: None reported. Ankle-brachial indices: Falsely elevated bilaterally. Toe pressures: 76 on the right, 72 on the left Impression: A bit difficult to read. Appears to be adequate flow bilaterally. Falsely elevated ankle pressures suggestive of calcific wall disease. Echo correlation recommended..
[2018-02-14] MEDS: OXYBUTYNIN XL 5 MG TAB.ER.24 PO SCH (10:31)
[2018-02-14] MEDS: LISINOPRIL 20 MG TAB PO SCH (10:31)
[2018-02-14] MEDS: CHOLECALCIFEROL 1,000 UNIT TAB PO SCH (10:31)
[2018-02-14] MEDS: ATORVASTATIN 40 MG TAB PO SCH (10:31)
[2018-02-14] MEDS: predniSONE 20 MG TAB PO SCH (10:32)
[2018-02-14] MEDS: ACETAMINOPHEN TAB 325 MG TAB PO SCH ×2 (10:32→21:53)
[2018-02-14] MEDS: traMADol 50 MG TAB PO SCH ×3 (10:32→21:52)
[2018-02-14] MEDS: ASPIRIN 81 MG PO SCH (10:33)
[2018-02-14] MEDS: METOPROLOL TARTRATE 25 MG TAB PO SCH ×2 (10:33→21:53)
[2018-02-14] MEDS: PANTOPRAZOLE 40 MG TABLET PO SCH (10:33)
[2018-02-14] MEDS: NYSTATIN 100,000 UNIT/GM POWD 15 GM TOPICAL SCH ×3 (10:35→21:52)
[2018-02-14] MEDS: CHOLESTYRAMINE (WITH SUGAR) 4 GM PACKET PO SCH ×3 (10:35→17:27)
[2018-02-14] MEDS: INSULIN ASPART 100 UNIT/ML 1 ML 10 ML VIAL SQ SCH ×4 (10:42→21:51)
[2018-02-14] MEDS: ISOSORBIDE MONONITRATE ER 60 MG TAB.ER.24H PO SCH (10:43)
[2018-02-14] MEDS: clonazePAM 1 MG TAB PO SCH ×3 (10:43→21:52)
[2018-02-14] MEDS: CITALOPRAM HYDROBROMIDE 20 MG TAB PO SCH (10:43)
[2018-02-14] MEDS: GABAPENTIN 100 MG CAP PO SCH ×2 (10:43→21:53)
[2018-02-14] MEDS: FERROUS SULFATE 325 MG TAB PO SCH (10:43)
[2018-02-14] MEDS: DIVALPROEX 250 MG TABLET.DR PO SCH (10:44)
[2018-02-14] MEDS: FUROSEMIDE 40 MG TAB PO SCH ×2 (10:44→15:23)
[2018-02-14] MEDS: CIPROFLOXACIN HCL 500 MG TAB PO SCH ×3 (10:44→22:46)
[2018-02-14 11:36] LABS: Glucose,Whole Blood 222 mg/dL (75-99)
[2018-02-14 17:32] LABS: Glucose,Whole Blood 445 mg/dL (75-99)
[2018-02-14] MEDS ORDERED: INSULIN ASPART 100 UNIT/ML 1 ML 10 ML VIAL SQ ONE (17:35)
[2018-02-14 20:29] LABS: Glucose,Whole Blood 321 mg/dL (75-99)
[2018-02-14] MEDS: INSULIN DETEMIR 100 UNIT/ML 10 ML VIAL SQ SCH (21:52)
[2018-02-15 07:39] LABS: Glucose,Whole Blood 162 mg/dL (75-99)
[2018-02-15] MEDS: ATORVASTATIN 40 MG TAB PO SCH (09:05)
[2018-02-15] MEDS: ISOSORBIDE MONONITRATE ER 60 MG TAB.ER.24H PO SCH (09:05)
[2018-02-15] MEDS: clonazePAM 1 MG TAB PO SCH ×3 (09:05→23:09)
[2018-02-15] MEDS: INSULIN ASPART 100 UNIT/ML 1 ML 10 ML VIAL SQ SCH ×4 (09:05→23:15)
[2018-02-15] MEDS: ACETAMINOPHEN TAB 325 MG TAB PO SCH ×2 (09:05→23:16)
[2018-02-15] MEDS: FUROSEMIDE 40 MG TAB PO SCH ×2 (09:05→15:25)
[2018-02-15] MEDS: OXYBUTYNIN XL 5 MG TAB.ER.24 PO SCH (09:05)
[2018-02-15] MEDS: CITALOPRAM HYDROBROMIDE 20 MG TAB PO SCH (09:05)
[2018-02-15] MEDS: PANTOPRAZOLE 40 MG TABLET PO SCH (09:05)
[2018-02-15] MEDS: FERROUS SULFATE 325 MG TAB PO SCH (09:05)
[2018-02-15] MEDS: ASPIRIN 81 MG PO SCH (09:05)
[2018-02-15] MEDS: traMADol 50 MG TAB PO SCH ×3 (09:06→23:15)
[2018-02-15] MEDS: CHOLECALCIFEROL 1,000 UNIT TAB PO SCH (09:06)
[2018-02-15] MEDS: METOPROLOL TARTRATE 25 MG TAB PO SCH ×2 (09:06→23:09)
[2018-02-15] MEDS: GABAPENTIN 100 MG CAP PO SCH ×2 (09:06→23:15)
[2018-02-15] MEDS: NYSTATIN 100,000 UNIT/GM POWD 15 GM TOPICAL SCH ×3 (09:07→23:17)
[2018-02-15] MEDS: CHOLESTYRAMINE (WITH SUGAR) 4 GM PACKET PO SCH ×3 (09:07→17:26)
[2018-02-15] MEDS: SODIUM CHLORIDE 0.9% 1,000 ML IV SCH ×2 (09:08→23:18)
[2018-02-15] MEDS: CIPROFLOXACIN HCL 500 MG TAB PO SCH (09:09)
[2018-02-15] MEDS: DIVALPROEX 250 MG TABLET.DR PO SCH (09:09)
[2018-02-15] MEDS: predniSONE 20 MG TAB PO SCH (09:11)
[2018-02-15] MEDS: LISINOPRIL 20 MG TAB PO SCH (09:11)
[2018-02-15 12:03] LABS: Glucose,Whole Blood 174 mg/dL (75-99)
[2018-02-15 17:22] LABS: Glucose,Whole Blood 346 mg/dL (75-99)
[2018-02-15 20:38] LABS: Glucose,Whole Blood 309 mg/dL (75-99)
[2018-02-15] MEDS: INSULIN DETEMIR 100 UNIT/ML 10 ML VIAL SQ SCH (23:15)
[2018-02-16] MEDS: CIPROFLOXACIN HCL 500 MG TAB PO SCH ×3 (00:50→22:31)
[2018-02-16 07:50] LABS: Glucose,Whole Blood 141 mg/dL (75-99)
[2018-02-16 08:47] LABS: Basophils # (A) 0.1 k/uL (0-0.2); Basophils % (A) 1 %; Eosinophils # (A) 0.2 k/uL (0-0.7); Eosinophils % (A) 2 %; HCT 30.4 % (34.0-46.0); HGB 9.8 gm/dL (11.4-16.0); Lymphocytes # (A) 1.6 k/uL (1.0-4.8); Lymphocytes % (A) 15 %; MCH 32.9 pg (25.0-35.0); MCHC 32.3 g/dL (31.0-37.0); MCV 101.9 fL (80.0-100.0); Mean Platelet Volume 6.9; Monocytes # (A) 0.7 k/uL (0-1.0); Monocytes % (A) 6 %; Neutrophils # (A) 7.9 k/uL (1.3-7.7); Neutrophils % (A) 75 %; Platelet Count 205 k/uL (150-450); RBC 2.98 m/uL (3.80-5.40); RDW 12.6 % (11.5-15.5); WBC 10.6 k/uL (3.8-10.6)
[2018-02-16 08:58] LABS: Calcium 9.4 mg/dL (8.4-10.2); Potassium 5.4 mmol/L (3.5-5.1)
[2018-02-16] MEDS: INSULIN ASPART 100 UNIT/ML 1 ML 10 ML VIAL SQ SCH ×4 (09:49→22:12)
[2018-02-16] MEDS: ASPIRIN 81 MG PO SCH (09:50)
[2018-02-16] MEDS: CHOLECALCIFEROL 1,000 UNIT TAB PO SCH (09:50)
[2018-02-16] MEDS: predniSONE 20 MG TAB PO SCH (09:50)
[2018-02-16] MEDS: PANTOPRAZOLE 40 MG TABLET PO SCH (09:51)
[2018-02-16] MEDS: ATORVASTATIN 40 MG TAB PO SCH (09:51)
[2018-02-16] MEDS: traMADol 50 MG TAB PO SCH ×3 (09:51→22:11)
[2018-02-16] MEDS: ACETAMINOPHEN TAB 325 MG TAB PO SCH ×2 (09:51→22:12)
[2018-02-16] MEDS: OXYBUTYNIN XL 5 MG TAB.ER.24 PO SCH (09:51)
[2018-02-16] MEDS: CITALOPRAM HYDROBROMIDE 20 MG TAB PO SCH (09:59)
[2018-02-16] MEDS: LISINOPRIL 20 MG TAB PO SCH (09:59)
[2018-02-16] MEDS: FERROUS SULFATE 325 MG TAB PO SCH (09:59)
[2018-02-16] MEDS: FUROSEMIDE 40 MG TAB PO SCH ×2 (09:59→17:50)
[2018-02-16] MEDS: clonazePAM 1 MG TAB PO SCH ×3 (09:59→21:59)
[2018-02-16] MEDS: ISOSORBIDE MONONITRATE ER 60 MG TAB.ER.24H PO SCH (09:59)
[2018-02-16] MEDS: GABAPENTIN 100 MG CAP PO SCH ×2 (10:00→22:12)
[2018-02-16] MEDS: METOPROLOL TARTRATE 25 MG TAB PO SCH ×2 (10:00→20:13)
[2018-02-16] MEDS: SODIUM CHLORIDE 0.9% 1,000 ML IV SCH ×2 (10:01→22:16)
[2018-02-16] MEDS: CHOLESTYRAMINE (WITH SUGAR) 4 GM PACKET PO SCH ×3 (10:02→17:51)
[2018-02-16] MEDS: NYSTATIN 100,000 UNIT/GM POWD 15 GM TOPICAL SCH ×3 (11:18→22:11)
[2018-02-16] MEDS: DIVALPROEX 250 MG TABLET.DR PO SCH (11:18)
[2018-02-16 12:12] LABS: Glucose,Whole Blood 197 mg/dL (75-99)
[2018-02-16 17:30] LABS: Glucose,Whole Blood 257 mg/dL (75-99)
--- NOTE | 2018-02-16 21:01 | PN ---
PROGRESS NOTE DATE OF SERVICE: 02/16/2018 SUBJECTIVE: A 72-year-old white female who is able to get up from the bed to the chair with assistance. She will be sent to shelter tomorrow. Pain medicines to be arranged. Discharge instructions for tomorrow. She had hyperkalemia today. One dose of Zaroxolyn was added today for a 1 time order. She will be discharged home to go to the shelter tomorrow. MMODL / LILLIANN: [id number] /
[2018-02-16 21:05] LABS: Glucose,Whole Blood 348 mg/dL (75-99)
[2018-02-16] MEDS: METOLAZONE 2.5 MG TAB PO SCH (22:11)
[2018-02-16] MEDS: INSULIN DETEMIR 100 UNIT/ML 10 ML VIAL SQ SCH (22:12)
[2018-02-17 00:16] VITALS: TEMP 97.6
[2018-02-17] MEDS: SODIUM CHLORIDE 0.9% 1,000 ML IV SCH (05:57)
[2018-02-17 07:41] LABS: Glucose,Whole Blood 149 mg/dL (75-99)
[2018-02-17] MEDS: INSULIN ASPART 100 UNIT/ML 1 ML 10 ML VIAL SQ SCH ×2 (08:03→12:06)
[2018-02-17] MEDS: OXYBUTYNIN XL 5 MG TAB.ER.24 PO SCH (08:04)
[2018-02-17] MEDS: FUROSEMIDE 40 MG TAB PO SCH (08:04)
[2018-02-17] MEDS: CHOLECALCIFEROL 1,000 UNIT TAB PO SCH (08:04)
[2018-02-17] MEDS: GABAPENTIN 100 MG CAP PO SCH (08:04)
[2018-02-17] MEDS: predniSONE 20 MG TAB PO SCH (08:04)
[2018-02-17] MEDS: ASPIRIN 81 MG PO SCH (08:04)
[2018-02-17] MEDS: ATORVASTATIN 40 MG TAB PO SCH (08:04)
[2018-02-17] MEDS: FERROUS SULFATE 325 MG TAB PO SCH (08:04)
[2018-02-17] MEDS: PANTOPRAZOLE 40 MG TABLET PO SCH (08:04)
[2018-02-17] MEDS: LISINOPRIL 20 MG TAB PO SCH (08:05)
[2018-02-17] MEDS: CITALOPRAM HYDROBROMIDE 20 MG TAB PO SCH (08:05)
[2018-02-17] MEDS: clonazePAM 1 MG TAB PO SCH (08:05)
[2018-02-17] MEDS: traMADol 50 MG TAB PO SCH (08:05)
[2018-02-17] MEDS: ISOSORBIDE MONONITRATE ER 60 MG TAB.ER.24H PO SCH (08:05)
[2018-02-17] MEDS: ACETAMINOPHEN TAB 325 MG TAB PO SCH (08:06)
[2018-02-17] MEDS: CIPROFLOXACIN HCL 500 MG TAB PO SCH (08:07)
[2018-02-17] MEDS: DIVALPROEX 250 MG TABLET.DR PO SCH (08:07)
[2018-02-17] MEDS: METOLAZONE 2.5 MG TAB PO SCH (08:07)
[2018-02-17] MEDS: NYSTATIN 100,000 UNIT/GM POWD 15 GM TOPICAL SCH (08:07)
[2018-02-17] MEDS: METOPROLOL TARTRATE 25 MG TAB PO SCH (08:08)
[2018-02-17] MEDS: CHOLESTYRAMINE (WITH SUGAR) 4 GM PACKET PO SCH (08:08)
[2018-02-17 08:10] LABS: Basophils # (A) 0.1 k/uL (0-0.2); Basophils % (A) 0 %; Eosinophils # (A) 0.1 k/uL (0-0.7); Eosinophils % (A) 1 %; HCT 31.4 % (34.0-46.0); Lymphocytes # (A) 1.7 k/uL (1.0-4.8); Lymphocytes % (A) 17 %; MCH 32.5 pg (25.0-35.0); MCHC 31.9 g/dL (31.0-37.0); Macrocytosis Slight; Mean Platelet Volume 7.1; Monocytes # (A) 0.6 k/uL (0-1.0); Monocytes % (A) 6 %; Neutrophils # (A) 7.6 k/uL (1.3-7.7); Neutrophils % (A) 75 %; Platelet Count 195 k/uL (150-450); RBC 3.08 m/uL (3.80-5.40); RDW 12.8 % (11.5-15.5); WBC 10.1 k/uL (3.8-10.6)
[2018-02-17 08:16] LABS: Calcium 9.6 mg/dL (8.4-10.2); Potassium 5.7 mmol/L (3.5-5.1)
[2018-02-17 10:35] VITALS: BP 132/63; PULSE 51; RESP 18
[2018-02-17] MEDS ORDERED: SODIUM POLYSTYRENE SULFONATE 15 GM/60 ML BOTTLE PO STA (11:37)
[2018-02-17 12:14] LABS: Glucose,Whole Blood 229 mg/dL (75-99)
--- NOTE | 2018-03-01 20:54 | CDI ---
Outpatient Documentation Clarification Form Date: 02/28/18 CDS/[employer] Director Name: Dacia Bowie CCS Phone: If any questions, call Shea Li [employer] Vat Tender at [phone] Patient Name: Carla Garvin Admit Date: 02/10/18 Discharge Date: 02/17/18 ATTENTION: The [facility] Coding Staff appreciate your assistance in clarifying documentation. Please respond to the clarification below the line at the bottom and electronically sign. The [facility] Coding staff will review the response and follow-up if needed. Please note: Queries are made part of the Legal Health Record. If you have any questions, please contact the [employer] Tender. Dear Dr. Yi, Patient was admitted with generalized weakness and dehydration. Vital signs on admission to the ED are: T 98.2, P 69, RR 18, BP 139/44, WBC 15.7 According to PN 02/12 and 02/13 She does have evidence of acute metabolic encephalopathy secondary to sepsis Vital signs on 02/12: T 97.6, P 56, RR 16, BP 132/63, WBC unknown Per the assessment on PN 11 generalized weakness secondary to dehydration and UTI The diagnosis of sepsis isnt carried beyond PN 12/. The only antibiotic given during this stay was Cipro daily. Further clarification regarding this diagnosis of sepsis is needed for proper reporting purposes. Please clarify: Sepsis ruled in Sepsis ruled out Sepsis documented in error Other (please specify) Unable to determine Thank you for your kind consideration. MTDD
--- NOTE | 2018-03-01 21:12 | CDI ---
Outpatient Documentation Clarification Form Date: 02/28/18 CDS/[employer] Clerk Name: Dacia Bowie CCS Phone: If any questions, call Shea Li Clinical Staff Educator at [phone] Patient Name: Carla Garvin Admit Date: 02/10/18 Discharge Date: 02/17/18 ATTENTION: The [facility] Coding Staff appreciate your assistance in clarifying documentation. Please respond to the clarification below the line at the bottom and electronically sign. The [facility] Coding staff will review the response and follow-up if needed. Please note: Queries are made part of the Legal Health Record. If you have any questions, please contact the Clinical Staff Educator. Dear Dr. Yi, Patient was admitted with generalized weakness and dehydration. She has had chronic diarrhea and is noted to have electrolyte disturbances with hypomagnesemia and hyperkalemia. She has had falls at home and failure to thrive is also documented. Per the 02/12 consult generalized weakness likely secondary to dehydration and UTI. Per PN 02/12 and 02/13 generalized weakness secondary to dehydration and UTI. The discharge summary gives a final diagnoses of Failure to Thrive, acute metabolic encephalopathy, extreme generalize weakness, hypomagnesemia. Patient is discharged on Cipro and with plans for PT at the SNF. Further clarification regarding what was determined to be the cause of this patients generalized weakness that occasioned her admission to the hospital is needed for proper reporting purposes. Please clarify what was found to be the etiology of Ms Mehta generalized weakness. Thank you! Thank you for your kind consideration. IRMA
== END 2018-02-17 14:10 ==
LOC: EC 07:57 → 4SSUR 10:47
PROVIDERS: ADMIT Family Medicine; ATTEND Family Medicine
DX: R62.7 Adult failure to thrive (principal); G93.41 Metabolic encephalopathy; E83.42 Hypomagnesemia; E89.0 Postprocedural hypothyroidism; G47.33 Obstructive sleep apnea (adult) (pediatric); K21.9 Gastro-esophageal reflux disease without esophagitis; I25.10 Atherosclerotic heart disease of native coronary artery without angina pectoris; E78.5 Hyperlipidemia, unspecified; E66.01 Morbid (severe) obesity due to excess calories; Z68.43 Body mass index [BMI] 50.0-59.9, adult; E86.0 Dehydration; R53.81 Other malaise; I13.0 Hypertensive heart and chronic kidney disease with heart failure and stage 1 through stage 4 chronic kidney disease, or unspecified chronic kidney disease; E11.51 Type 2 diabetes mellitus with diabetic peripheral angiopathy without gangrene; I50.30 Unspecified diastolic (congestive) heart failure; Z99.81 Dependence on supplemental oxygen; N17.9 Acute kidney failure, unspecified; N18.9 Chronic kidney disease, unspecified; E11.22 Type 2 diabetes mellitus with diabetic chronic kidney disease; E87.1 Hypo-osmolality and hyponatremia; T82.855A Stenosis of coronary artery stent, initial encounter; E87.5 Hyperkalemia; N39.0 Urinary tract infection, site not specified; A41.9 Sepsis, unspecified organism; I95.9 Hypotension, unspecified; J44.9 Chronic obstructive pulmonary disease, unspecified; E78.00 Pure hypercholesterolemia, unspecified; K52.9 Noninfective gastroenteritis and colitis, unspecified; F39 Unspecified mood [affective] disorder; W19.XXXA Unspecified fall, initial encounter; Y92.009 Unspecified place in unspecified non-institutional (private) residence as the place of occurrence of the external cause; Z79.4 Long term (current) use of insulin; Z79.82 Long term (current) use of aspirin; Z79.52 Long term (current) use of systemic steroids; Z79.899 Other long term (current) drug therapy; Z91.040 Latex allergy status; Z88.5 Allergy status to narcotic agent; Z88.7 Allergy status to serum and vaccine; Z91.048 Other nonmedicinal substance allergy status; Z86.73 Personal history of transient ischemic attack (TIA), and cerebral infarction without residual deficits; Z91.81 History of falling; Z90.710 Acquired absence of both cervix and uterus; Z85.41 Personal history of malignant neoplasm of cervix uteri; Z90.49 Acquired absence of other specified parts of digestive tract; Z95.5 Presence of coronary angioplasty implant and graft; Z86.14 Personal history of Methicillin resistant Staphylococcus aureus infection; Z82.49 Family history of ischemic heart disease and other diseases of the circulatory system; Z80.42 Family history of malignant neoplasm of prostate; Z82.5 Family history of asthma and other chronic lower respiratory diseases; R32 Unspecified urinary incontinence
CPT/HCPCS: 96360 ×3; 96361 ×4; 99285; 36415; 94760; 95816; 93005; 97530 ×4; 97162; 97535 ×4; 97166; 83880; 80053 ×3; 80048 ×2; 82550; 82553; 83735; 85025 ×5; 81001; 87324; 87086; 87045; 87077; 87186; 87046; 73562; 73521; 73610; 73620; 71046; 93922; 72192; 70450; G0378 ×8; J3475; J7512 ×7

== ENCOUNTER 2018-03-02 08:42 | Day surgery (SDC) | payer MEDICARE ==
[2018-03-01 09:22] VITALS: BMI 60.3
[~2018-03-02 08:42] MED LIST changes: -ALPRAZolam 0.5 MG TAB PO PRN
[2018-03-02 09:13] VITALS: RESP 16; TEMP 98.1
[2018-03-02] MEDS ORDERED: SODIUM CHLORIDE 0.9% 1,000 ML IV ONE (09:21)
[2018-03-02 09:24] LABS: Glucose,Whole Blood 120 mg/dL (75-99)
[2018-03-02 09:38] LABS: Basophils # (A) 0.1 k/uL (0-0.2); Basophils % (A) 1 %; Eosinophils # (A) 0.3 k/uL (0-0.7); Eosinophils % (A) 3 %; HCT 36.2 % (34.0-46.0); HGB 11.4 gm/dL (11.4-16.0); Lymphocytes # (A) 2.3 k/uL (1.0-4.8); Lymphocytes % (A) 21 %; MCH 31.8 pg (25.0-35.0); MCHC 31.5 g/dL (31.0-37.0); Mean Platelet Volume 7.3; Monocytes # (A) 0.7 k/uL (0-1.0); Monocytes % (A) 6 %; Neutrophils # (A) 7.5 k/uL (1.3-7.7); Neutrophils % (A) 68 %; Platelet Count 249 k/uL (150-450); RBC 3.59 m/uL (3.80-5.40); RDW 12.8 % (11.5-15.5)
[2018-03-02 09:39] LABS: Calcium 9.4 mg/dL (8.4-10.2); Potassium 4.8 mmol/L (3.5-5.1)
[2018-03-02] MEDS ORDERED: MIDAZOLAM 2 MG/2 ML VIAL IVP ONE (10:15)
[2018-03-02] MEDS ORDERED: LIDOCAINE 1% INJ 10MG/ML (20 ML MDV) SQ ONE (10:17)
[2018-03-02] MEDS ORDERED: BIVALIRUDIN BOLUS 250 MG/50 ML IV ONE (10:20)
[2018-03-02] MEDS ORDERED: BIVALIRUDIN 250 MG in SODIUM CHLORIDE 0.9% 50 ML IV ONE ×2 (10:21→10:39)
[2018-03-02] MEDS ORDERED: NITROGLYCERIN 1000MCG/10ML SYRINGE INTRACORON ONE (10:21)
[2018-03-02] MEDS ORDERED: IOPAMIDOL-370 125ML BTL INJ ONE (11:17)
[2018-03-02] MEDS ORDERED: IOPAMIDOL-370 100ML BTL INJ ONE (11:35)
[2018-03-02] MEDS ORDERED: ATROPINE SULFATE 0.1 MG/ML 10ML SYRINGE IV PRN (11:54)
[2018-03-02] MEDS ORDERED: MAG HYDROX/AL HYDROX/SIMETH 30 ML CUP PO PRN (11:54)
[2018-03-02] MEDS ORDERED: NITROGLYCERIN SL TABS 0.4 MG TAB SUBLINGUAL PRN (11:54)
[2018-03-02] MEDS ORDERED: RX INFO: IV CONTRAST WAS GIVEN 1 EACH MISC MISCELLANE PRN (11:54)
[2018-03-02] MEDS ORDERED: ZOLPIDEM 5 MG TAB PO PRN (11:54)
[2018-03-02] MEDS ORDERED: SODIUM CHLORIDE 0.9% 1,000 ML IV SCH (12:00)
[2018-03-02] MEDS ORDERED: ISOSORBIDE MONONITRATE ER 60 MG TAB.ER.24H PO STA (13:36)
[2018-03-02] MEDS ORDERED: LISINOPRIL 20 MG TAB PO STA (13:36)
[2018-03-02] MEDS ORDERED: METOPROLOL TARTRATE 25 MG TAB PO STA (13:37)
--- NOTE | 2018-03-02 16:06 | PTCA ---
PERCUTANEOUSTRANS CORORONARY ANGIOGRAPHY DATE OF SERVICE: 03/02/2018 PERFORMING PHYSICIAN: Hermes Mancera MD, Paper [employer]. PROCEDURE PERFORMED: An attempted balloon angioplasty of the left circumflex coronary artery. INDICATION: This is a pleasant 72-year-old female patient with known history of coronary artery disease and prior stenting of the LAD as well as subtotally occluded left circumflex coronary artery, continues to have chest discomfort. Because of that, she was brought today to undergo a PCI of the left circumflex. The patient was seen and evaluated by the surgeon he turned the patient down for surgery. COMPLICATION: None. LEVEL OF SEDATION: Moderate sedation length of 1 hour and 22 minutes. APPROACH: Right common femoral artery. PROCEDURE DESCRIPTION: After obtaining an informed consent, the patient was brought to the cardiac laboratory chief. The right common femoral artery was cannulated using micropuncture technique and a micropuncture wire passed easily, then I placed a 6-Spanish sheath in the right common femoral artery. After that, I did start anticoagulation using Angiomax. I did engage the left main using an XP35 LAD guide. I attempted crossing the subtotally occluded left circumflex using a 0.014 wire, as well as 0.014 Fielder XT wire and I was unable. Because of that, I decided to stop. The procedure was completed without any complication. POSTPROCEDURE MANAGEMENT: 1. Maximize medical treatment. 2. Follow up with the patient. TYLER / LILLIANN: [id number] /
[2018-03-02 17:47] VITALS: BP 137/78; PULSE 59
[2018-03-02] MEDS ORDERED: METOPROLOL TARTRATE 25 MG TAB PO SCH (21:00)
[2018-03-03] MEDS ORDERED: ISOSORBIDE MONONITRATE ER 60 MG TAB.ER.24H PO SCH (09:00)
[2018-03-03] MEDS ORDERED: LISINOPRIL 20 MG TAB PO SCH (09:00)
== END 2018-03-02 18:41 ==
LOC: CATHCVL 08:42
PROVIDERS: ATTEND Internal Medicine Interventional Cardiology
DX: I25.10 Atherosclerotic heart disease of native coronary artery without angina pectoris (principal); Z53.8 Procedure and treatment not carried out for other reasons; I10 Essential (primary) hypertension; E78.49 Other hyperlipidemia; E11.9 Type 2 diabetes mellitus without complications; Z95.5 Presence of coronary angioplasty implant and graft; E66.01 Morbid (severe) obesity due to excess calories; Z68.43 Body mass index [BMI] 50.0-59.9, adult; Z88.5 Allergy status to narcotic agent; Z88.0 Allergy status to penicillin; Z91.040 Latex allergy status; Z79.82 Long term (current) use of aspirin; Z79.4 Long term (current) use of insulin; Z79.52 Long term (current) use of systemic steroids; Z79.899 Other long term (current) drug therapy
CPT/HCPCS: 92920; 80048; 85025; C1769 ×9; C1760; C1887 ×2; C1894; J2250; J2001; J0583; Q9967 ×2

== ENCOUNTER 2018-03-10 01:51 | Inpatient (IN) | payer MEDICARE ==
[2018-03-10] MEDS ORDERED: SODIUM CHLORIDE 0.9% 1,000 ML IV STA (02:04)
--- NOTE | 2018-03-10 02:23 | ED ---
Chest Pain HPI - General Chief Complaint: Chest Pain Stated Complaint: Chest Pain Time Seen by Provider: 03/10/18 02:01 Source: EMS Mode of arrival: EMS Limitations: no limitations - History of Present Illness Initial Comments: Carla is a pleasant 72 yo female who is brought to the emergency department today via EMS from her residential facility. Patient reports that throughout the day she's had intermittent left-sided chest pain, this evening the chest pain became unbearable she told her caregivers about it was given nitro. She reports complete resolution of the chest pain after nitro. Patient describes the pain as a left-sided chest pressure associated with mild shortness of breath. She denies any lightheadedness or diaphoresis. Size exertional symptoms. She denies any nausea vomiting fevers or chills. - Related Data Home Medications Medication Instructions Recorded Confirmed Citalopram Hydrobromide [CeleXA] 40 mg PO DAILY 09/20/14 03/02/18 clonazePAM [KlonoPIN] 1 mg PO TID 09/20/14 03/02/18 traMADol HCl [Ultram] 50 mg PO TID 10/19/16 03/02/18 Lisinopril [Zestril] 20 mg PO DAILY 12/21/16 03/02/18 Atorvastatin [Lipitor] 40 mg PO HS 01/30/17 03/02/18 Aspirin EC [Ecotrin Low Dose] 81 mg PO DAILY 12/14/17 03/02/18 Cholecalciferol (Vitamin D3) 2,000 unit PO DAILY 12/14/17 03/02/18 [Vitamin D3] Gabapentin [Neurontin] 100 mg PO BID 12/14/17 03/02/18 Insulin Aspart [NovoLOG See Protocol SQ ACHS 12/14/17 03/01/18 (formulary)] Insulin Glargine,Hum.rec.anlog 50 unit SQ HS 12/14/17 03/02/18 [Lantus Solostar] Ipratropium-Albuterol Nebulize 3 ml INHALATION RT-QID PRN 12/14/17 03/02/18 [Duoneb 0.5 mg-3 mg/3 ml Soln] Isosorbide Mononitrate ER [Imdur] 60 mg PO DAILY 12/14/17 03/02/18 Metoprolol Tartrate [Lopressor] 25 mg PO BID 12/14/17 03/02/18 Pantoprazole Sodium [Protonix] 40 mg PO DAILY 12/14/17 03/02/18 predniSONE 20 mg PO DAILY 12/14/17 03/02/18 Acetaminophen [Tylenol] 325 mg PO BID 01/16/18 03/02/18 Divalproex [Depakote] 250 mg PO DAILY 01/16/18 03/02/18 Miconazole Nitrate [Lotrimin AF 1 applic TOPICAL DAILY PRN 01/16/18 03/02/18 Powder] Oxybutynin Chloride [Ditropan XL] 5 mg PO DAILY 01/16/18 03/02/18 Previous Rx's Medication Instructions Recorded Ferrous Sulfate [Iron (65 MG 325 mg PO DAILY tab 10/08/15 Elemental)] Nitroglycerin Sl Tabs [Nitrostat] 0.4 mg SUBLINGUAL Q5M PRN #30 tab 12/23/16 Furosemide [Lasix] 40 mg PO BID@0900,1600 tab 05/17/17 Nystatin 100,000 Unit/gm Powd 1 applic TOPICAL TID applic 12/20/17 [Mycostatin Powder] Cholestyramine (with Sugar) 4 gm PO TID BETWEEN MEALS packet 02/13/18 [Questran Packet] Insulin Aspart [NovoLOG 0 unit SQ ACHS vial 02/13/18 (formulary)] Allergies Allergy/AdvReac Type Severity Reaction Status Date / Time latex Allergy Mild Rash/Hives Verified 03/01/18 09:16 codeine Allergy Anaphylaxis Verified 03/01/18 09:16 morphine Allergy Hallucinati Verified 03/01/18 09:16 ons Penicillins Allergy Anaphylaxis Verified 03/01/18 09:16 propoxyphene napsylate Allergy Anaphylaxis Verified 03/01/18 09:16 [From Darvocet-N 100] tuberculin, purified protein Allergy Rash/Hives Verified 03/01/18 09:16 deriva [tuberculin,purif.prot.deriv.] adhesive AdvReac Mild Rash/Hives, Verified 03/01/18 09:16 W/ TAPES, CAN USE PAPER TAPE Review of Systems ROS Statement: Those systems with pertinent positive or pertinent negative responses have been documented in the HPI. ROS Other: All systems not noted in ROS Statement are negative. EKG Findings - EKG Comments: EKG Findings:: EKG obtained at 2:01 AM, rate is 55 rhythm is sinus bradycardia, there is normal axis, normal intervals, UT 166, care is 92, QTc 47. There is no acute ST elevations or depressions noted evidence of acute ischemia or infarction. There is significant respiratory artifact. Past Medical History Past Medical History: Asthma, Coronary Artery Disease (CAD), Cancer, Chest Pain / Angina, CVA/TIA, Diabetes Mellitus, GERD/Reflux, Hyperlipidemia, Hypertension , Memory Impairment, Pneumonia, Sleep Apnea/CPAP/BIPAP Additional Past Medical History / Comment(s): IDDM type II, TAMRA unable to tolerate CPAP, bronchitis, chronic low back pain- bulging discs, scoliosis, urinary incontinence, IBS, gastric ulcers, hiatal hernia, TIA 3 yrs roughly ago- memory impairment, uses O2 @2l continuously, hypothyroid, hemorrhoids, anemia, Cervical CA hysterectomy, sinus problems at times. History of Any Multi-Drug Resistant Organisms: MRSA Date of last positivie culture/infection: 04/02/11 MDRO Source:: L chest/L lower leg/ankle Past Surgical History: Bladder Surgery, Cholecystectomy, Heart Catheterization, Heart Catheterization With Stent, Hysterectomy Additional Past Surgical History / Comment(s): PCI with a total of 5 stents per pt with last stent placed 06/29/16, partial parathyroidectomy, bilateral cataracts removed, I and D of L chest wall abscess and L ankle wound, bladder surgery with implant of stimulator system 02/2010, EGD/colonoscoy. Past Anesthesia/Blood Transfusion Reactions: No Reported Reaction Additional Past Anesthesia/Blood Transfusion Reaction / Comment(s): Pt states she has received blood in the past without reaction. Date of Last Stent Placement:: 06/29/16 Additional Psychological History / Comment(s): RESIDES @ [facility]. USES WALKER OR W/C . HOME CARE FROM [facility]FOR MEDICATION ADMINISTRATION. O2 at 2L/NC ATC. Staff manages her medications. She goes to a [employer] area for meals usually - Past Family History Brother(s) Family Medical History: Coronary Artery Disease (CAD) Father Family Medical History: Cancer, Coronary Artery Disease (CAD) Additional Family Medical History / Comment(s): Father had prostate cancer. Mother Family Medical History: Asthma, COPD General Exam - General Exam Comments Initial Comments: Physical Exam GENERAL: Obese female in no acute distress HEENT Normocephalic, Atraumatic. EYES: PERRL, EOMI PULMONARY: Decreased breath sounds at bilateral bases CARDIOVASCULAR: There is a regular rate and rhythm without any murmurs gallops or rubs. ABDOMEN: Soft and nontender with normal bowel sounds. SKIN: Skin is clear with no lesions or rashes and otherwise unremarkable. : Deferred NEUROLOGIC: Patient is alert and oriented x3. Moving all extremities spontaneously MUSCULOSKELETAL: Normal extremities with adequate strength and full range of motion. No lower extremity swelling or edema. No calf tenderness. PSYCHIATRIC: Normal psychiatric evaluation. Limitations: no limitations Limitations: no limitations Course Vital Signs 03/10/18 03/10/18 03/10/18 01:55 01:58 02:00 Temperature 97.5 F L Pulse Rate 56 L 55 L Respiratory 20 17 Rate Blood Pressure 141/114 141/114 O2 Sat by Pulse 83 L 99 98 Oximetry 03/10/18 03/10/18 03/10/18 02:20 04:00 05:00 Temperature Pulse Rate 51 L 50 L Respiratory 20 19 28 H Rate Blood Pressure 168/72 142/86 O2 Sat by Pulse 100 Oximetry 03/10/18 06:00 Temperature Pulse Rate 56 L Respiratory 18 Rate Blood Pressure 153/60 O2 Sat by Pulse 100 Oximetry Chest Pain [facility] Patient was seen and evaluated history was obtained from patient and EMS This is a 72-year-old female who presents with left-sided chest pain which resolved after nitro. Considering the patient's advanced age, description of her pressure-like left-sided pain with resolution nitro in the high suspicion for cardiac etiology. A cardiac workup was ordered. Labs were reviewed. Potassium was mildly elevated at 5.5 however there is no EKG changes we will repeat this with morning labs Troponin was not elevated Chest x-ray no acute findings no evidence of pneumonia Considering the patient's high risk chest pain I will plan to admit her to consult to cardiology. Disposition Clinical Impression: Coronary artery disease, Risk for falls, Morbid obesity, Chest pain Disposition: ADMITTED IP TO THIS HOSP Referrals: Chris Yi MD [Primary Care Provider] - 1-2 days
[2018-03-10 02:32] LABS: Basophils # (A) 0.1 k/uL (0-0.2); Basophils % (A) 0 %; Eosinophils # (A) 0.1 k/uL (0-0.7); Eosinophils % (A) 1 %; HCT 33.4 % (34.0-46.0); HGB 10.5 gm/dL (11.4-16.0); Lymphocytes % (A) 8 %; MCH 32.7 pg (25.0-35.0); MCHC 31.4 g/dL (31.0-37.0); MCV 104.2 fL (80.0-100.0); Macrocytosis Slight; Monocytes # (A) 0.7 k/uL (0-1.0); Monocytes % (A) 5 %; Neutrophils # (A) 11.2 k/uL (1.3-7.7); Neutrophils % (A) 85 %; Platelet Count 195 k/uL (150-450); RDW 13.1 % (11.5-15.5); WBC 13.1 k/uL (3.8-10.6)
[2018-03-10 02:37] LABS: Albumin 3.3 g/dL (3.5-5.0); Calcium 9.5 mg/dL (8.4-10.2); Magnesium 1.9 mg/dL (1.6-2.3); Potassium 5.5 mmol/L (3.5-5.1); Total Bilirubin 0.4 mg/dL (0.2-1.3); Total Protein 5.3 g/dL (6.3-8.2)
[2018-03-10 02:41] LABS: Creatine Kinase <20 U/L (30-135)
[2018-03-10 02:48] LABS: INR 0.9 (<1.2); Prothrombin Time 9.8 sec (9.0-12.0)
[2018-03-10 02:51] LABS: Partial Thromboplastin Time 20.5 sec (22.0-30.0)
[2018-03-10 02:54] LABS: Creatine Kinase MB 0.6 ng/mL (0.0-2.4); Troponin I 0.025 ng/mL (0.000-0.034)
--- NOTE | 2018-03-10 02:58 | XR ---
EXAMINATION TYPE: XR chest 2V DATE OF EXAM: 03/10/2018 COMPARISON: 02/10/2018 HISTORY: Chest pain TECHNIQUE: Frontal and lateral views of the chest are obtained. FINDINGS: There is no heart failure nor confluent pneumonic infiltrate. Costophrenic angles are david r. There are chest leads. The bony thorax is intact. IMPRESSION: No active cardiopulmonary disease. No pleural effusion. No change compared to old exam.
[2018-03-10] MEDS ORDERED: IPRATROPIUM-ALBUTEROL 3 ML NEB INHALATION PRN (04:33)
[2018-03-10] MEDS ORDERED: NITROGLYCERIN OINT 1 INCH/GM PACKET TOPICAL SCH (06:00)
[2018-03-10 06:34] LABS: Glucose,Whole Blood 166 mg/dL (75-99)
[2018-03-10] MEDS ORDERED: ISOSORBIDE MONONITRATE ER 60 MG TAB.ER.24H PO SCH (09:00)
--- NOTE | 2018-03-10 09:56 | P.CRDCN ---
History of Present Illness Consult date: 03/10/18 Consult reason: chest pain History of present illness: This patient is a 72-year-old female who is seen for the evaluation of chest pain. Patient is having intermittent sharp chest discomfort in left precordial area usually lasts for a few seconds to a minute and is not associated with any nausea vomiting or sweating H and has a known history of coronary artery disease sent cardiac catheterization revealed totally occluded circumflex coronary artery DCA was attempted but was unsuccessful and patient was advised medical treatment patient is at present confined to the wheelchair and unable to ambulate. Is using oxygen all night. Past Medical History Past Medical History: Asthma, Coronary Artery Disease (CAD), Cancer, Chest Pain / Angina, CVA/TIA, Diabetes Mellitus, GERD/Reflux, Hyperlipidemia, Hypertension , Memory Impairment, Pneumonia, Sleep Apnea/CPAP/BIPAP Additional Past Medical History / Comment(s): IDDM type II, TAMRA unable to tolerate CPAP, bronchitis, chronic low back pain- bulging discs, scoliosis, urinary incontinence, IBS, gastric ulcers, hiatal hernia, TIA 3 yrs roughly ago- memory impairment, uses O2 @2l continuously, hypothyroid, hemorrhoids, anemia, Cervical CA hysterectomy, sinus problems at times. History of Any Multi-Drug Resistant Organisms: MRSA Date of last positivie culture/infection: 04/02/11 MDRO Source:: L chest/L lower leg/ankle Past Surgical History: Bladder Surgery, Cholecystectomy, Heart Catheterization, Heart Catheterization With Stent, Hysterectomy Additional Past Surgical History / Comment(s): PCI with a total of 5 stents per pt with last stent placed 06/29/16, partial parathyroidectomy, bilateral cataracts removed, I and D of L chest wall abscess and L ankle wound, bladder surgery with implant of stimulator system 02/2010, EGD/colonoscoy. Past Anesthesia/Blood Transfusion Reactions: No Reported Reaction Additional Past Anesthesia/Blood Transfusion Reaction / Comment(s): Pt states she has received blood in the past without reaction. Date of Last Stent Placement:: 06/29/16 Additional Psychological History / Comment(s): RESIDES @ [employer] [facility]. USES WALKER OR W/C . HOME CARE FROM [facility]FOR MEDICATION ADMINISTRATION. O2 at 2L/NC ATC. Staff manages her medications. She goes to a [employer] area for meals usually - Past Family History Brother(s) Family Medical History: Coronary Artery Disease (CAD) Father Family Medical History: Cancer, Coronary Artery Disease (CAD) Additional Family Medical History / Comment(s): Father had prostate cancer. Mother Family Medical History: Asthma, COPD Medications and Allergies Home Medications Medication Instructions Recorded Confirmed Type Citalopram Hydrobromide [CeleXA] 40 mg PO DAILY 09/20/14 03/02/18 History clonazePAM [KlonoPIN] 1 mg PO TID 09/20/14 03/02/18 History Ferrous Sulfate [Iron (65 MG 325 mg PO DAILY tab 10/08/15 03/02/18 Rx Elemental)] traMADol HCl [Ultram] 50 mg PO TID 10/19/16 03/02/18 History Lisinopril [Zestril] 20 mg PO DAILY 12/21/16 03/02/18 History Nitroglycerin Sl Tabs [Nitrostat] 0.4 mg SUBLINGUAL Q5M PRN #30 tab 12/23/16 Rx Atorvastatin [Lipitor] 40 mg PO HS 01/30/17 03/02/18 History Furosemide [Lasix] 40 mg PO BID@0900,1600 tab 05/17/17 03/02/18 Rx Aspirin EC [Ecotrin Low Dose] 81 mg PO DAILY 12/14/17 03/02/18 History Cholecalciferol (Vitamin D3) 2,000 unit PO DAILY 12/14/17 03/02/18 History [Vitamin D3] Gabapentin [Neurontin] 100 mg PO BID 12/14/17 03/02/18 History Insulin Aspart [NovoLOG See Protocol SQ ACHS 12/14/17 03/01/18 History (formulary)] Insulin Glargine,Hum.rec.anlog 50 unit SQ HS 12/14/17 03/02/18 History [Lantus Solostar] Ipratropium-Albuterol Nebulize 3 ml INHALATION RT-QID PRN 12/14/17 03/02/18 History [Duoneb 0.5 mg-3 mg/3 ml Soln] Isosorbide Mononitrate ER [Imdur] 60 mg PO DAILY 12/14/17 03/02/18 History Metoprolol Tartrate [Lopressor] 25 mg PO BID 12/14/17 03/02/18 History Pantoprazole Sodium [Protonix] 40 mg PO DAILY 12/14/17 03/02/18 History predniSONE 20 mg PO DAILY 12/14/17 03/02/18 History Nystatin 100,000 Unit/gm Powd 1 applic TOPICAL TID applic 12/20/17 03/02/18 Rx [Mycostatin Powder] Acetaminophen [Tylenol] 325 mg PO BID 01/16/18 03/02/18 History Divalproex [Depakote] 250 mg PO DAILY 01/16/18 03/02/18 History Miconazole Nitrate [Lotrimin AF 1 applic TOPICAL DAILY PRN 01/16/18 03/02/18 History Powder] Oxybutynin Chloride [Ditropan XL] 5 mg PO DAILY 01/16/18 03/02/18 History Cholestyramine (with Sugar) 4 gm PO TID BETWEEN MEALS packet 02/13/18 03/02/18 Rx [Questran Packet] Insulin Aspart [NovoLOG 0 unit SQ ACHS vial 02/13/18 03/01/18 Rx (formulary)] Allergies Allergy/AdvReac Type Severity Reaction Status Date / Time latex Allergy Mild Rash/Hives Verified 03/01/18 09:16 codeine Allergy Anaphylaxis Verified 03/01/18 09:16 morphine Allergy Hallucinati Verified 03/01/18 09:16 ons Penicillins Allergy Anaphylaxis Verified 03/01/18 09:16 propoxyphene napsylate Allergy Anaphylaxis Verified 03/01/18 09:16 [From Darvocet-N 100] tuberculin, purified protein Allergy Rash/Hives Verified 03/01/18 09:16 deriva [tuberculin,purif.prot.deriv.] adhesive AdvReac Mild Rash/Hives, Verified 03/01/18 09:16 W/ TAPES, CAN USE PAPER TAPE Physical Exam Vitals: Vital Signs Temp Pulse Pulse Resp BP BP Pulse Ox 03/10/18 06:45 98.2 F 51 L 16 125/50 99 03/10/18 06:00 56 L 18 153/60 100 03/10/18 05:00 50 L 28 H 142/86 03/10/18 04:00 51 L 19 168/72 100 03/10/18 02:20 20 03/10/18 02:00 55 L 17 141/114 98 03/10/18 01:58 97.5 F L 56 L 20 141/114 99 03/10/18 01:55 83 L Intake and Output 03/09/18 03/10/18 03/10/18 22:59 06:59 14:59 Other: # Voids 1 Weight 137.438 kg Patient's vital signs are reviewPatient's vital signs are reviewed. The patient is alert awake and in no acute distress. HEENT negative. Neck-supple no increase in JVP noted no carotid bruits noted. Chest-symmetrical. Heart-first and second heart sounds are normal. No S3 or S4 is noted. No significant murmurs are noted. Lungs bilateral good at entry is noted. No rales or rhonchi are noted Abdomen-soft. Liver and spleen are not enlarged. The bowel sounds are normal. No tenderness noted Extremities-peripheral pulses since are 2+. No significant leg edema noted. Neuro-no significant gross abnormality noted. Results 03/10/18 02:12 03/10/18 02:12 Cardiac Enzymes 03/10/18 03/10/18 Range/Units 02:12 02:12 AST 11 L (14-36) U/L CK-MB (CK-2) 0.6 (0.0-2.4) ng/mL Troponin I 0.025 (0.000-0.034) ng/mL Coagulation 03/10/18 Range/Units 02:12 PT 9.8 (9.0-12.0) sec APTT 20.5 L (22.0-30.0) sec CBC 03/10/18 Range/Units 02:12 WBC 13.1 H (3.8-10.6) k/uL RBC 3.20 L (3.80-5.40) m/uL Hgb 10.5 L (11.4-16.0) gm/dL Hct 33.4 L (34.0-46.0) % Plt Count 195 (150-450) k/uL Comprehensive Metabolic Panel 03/10/18 Range/Units 02:12 Sodium 134 L (137-145) mmol/L Potassium 5.5 H (3.5-5.1) mmol/L Chloride 99 (98-107) mmol/L Carbon Dioxide 30 (22-30) mmol/L BUN 65 H (7-17) mg/dL Creatinine 0.97 (0.52-1.04) mg/dL Glucose 313 H (74-99) mg/dL Calcium 9.5 (8.4-10.2) mg/dL AST 11 L (14-36) U/L ALT 42 (9-52) U/L Alkaline Phosphatase 33 L (38-126) U/L Total Protein 5.3 L (6.3-8.2) g/dL Albumin 3.3 L (3.5-5.0) g/dL Current Medications Generic Name Dose Route Start Last Admin Trade Name Freq PRN Reason Stop Dose Admin Albuterol/Ipratropium 3 ml 03/10/18 04:33 Duoneb 0.5 Mg-3 Mg/3 Ml Soln INHALATION RT-QID PRN Shortness Of Breath Aspirin 325 mg 03/11/18 09:00 Aspirin PO DAILY [facility] Citalopram Hydrobromide 40 mg 03/10/18 09:00 Celexa PO DAILY [facility] Clonazepam 1 mg 03/10/18 09:00 Klonopin PO TID PRN Anxiety Divalproex Sodium 250 mg 03/10/18 09:00 Depakote PO DAILY [facility] Furosemide 40 mg 03/10/18 09:00 Lasix PO BID@0900,1600 JAVIER Gabapentin 100 mg 03/10/18 09:00 Neurontin PO BID [facility] Sodium Chloride 1,000 mls @ 50 mls/hr 03/10/18 02:04 03/10/18 06:58 Saline 0.9% IV 03/10/18 22:03 Not Given .Q20H STA Insulin Aspart 0 unit 03/10/18 07:30 Novolog SQ ACHS JAVIER Protocol Isosorbide Mononitrate 60 mg 03/10/18 09:00 Imdur PO DAILY [facility] Lisinopril 20 mg 03/10/18 09:00 Zestril PO DAILY [facility] Metoprolol Tartrate 25 mg 03/10/18 09:00 Lopressor PO BID [facility] Pantoprazole Sodium 40 mg 03/10/18 07:30 Protonix PO DAILY@0730 [facility] Tramadol HCl 50 mg 03/10/18 04:45 Ultram PO TID PRN Pain Intake and Output 03/09/18 03/10/18 03/10/18 22:59 06:59 14:59 Other: # Voids 1 Weight 137.438 kg 03/10/18 02:12 03/10/18 02:12 EKG Interpretations (text) EKG does not show any acute changes Assessment and Plan Assessment: Clinically this basis chest pains are suggestive of atypical angina. EKGs and cardiac enzymes would be done. We'll increase the Imdur to 60 mg twice a day. And remains chest pain-free C can be discharged in 24 hours.
[2018-03-10 10:34] LABS: Creatine Kinase <20 U/L (30-135)
[2018-03-10 10:48] LABS: Creatine Kinase MB 1.5 ng/mL (0.0-2.4)
[2018-03-10 10:55] LABS: Troponin I 0.438 ng/mL (0.000-0.034)
[2018-03-10 11:44] LABS: Glucose,Whole Blood 139 mg/dL (75-99)
[2018-03-10] MEDS: METOPROLOL TARTRATE 25 MG TAB PO SCH ×2 (12:04→20:38)
[2018-03-10] MEDS: INSULIN ASPART 100 UNIT/ML 1 ML 10 ML VIAL SQ SCH ×4 (12:04→20:49)
[2018-03-10] MEDS: PANTOPRAZOLE 40 MG TABLET PO SCH (12:04)
[2018-03-10] MEDS: FUROSEMIDE 40 MG TAB PO SCH ×2 (12:04→17:43)
[2018-03-10] MEDS: LISINOPRIL 20 MG TAB PO SCH (12:04)
[2018-03-10] MEDS: GABAPENTIN 100 MG CAP PO SCH ×2 (12:04→20:43)
[2018-03-10] MEDS: CITALOPRAM HYDROBROMIDE 20 MG TAB PO SCH (12:05)
[2018-03-10] MEDS: ISOSORBIDE MONONITRATE ER 60 MG TAB.ER.24H PO SCH ×2 (12:06→20:43)
[2018-03-10] MEDS: traMADol 50 MG TAB PO PRN (12:52)
[2018-03-10 14:55] LABS: Creatine Kinase <20 U/L (30-135)
[2018-03-10 15:06] LABS: Creatine Kinase MB 1.3 ng/mL (0.0-2.4)
[2018-03-10 15:13] LABS: Troponin I 0.532 ng/mL (0.000-0.034)
[2018-03-10 16:51] LABS: Glucose,Whole Blood 183 mg/dL (75-99)
[2018-03-10 18:14] LABS: Hemoglobin A1C 8.3 % (4.0-6.0)
[2018-03-10] MEDS: DIVALPROEX 250 MG TABLET.DR PO SCH (18:23)
[2018-03-10 20:05] LABS: Glucose,Whole Blood 149 mg/dL (75-99)
[2018-03-10] MEDS: ATORVASTATIN 40 MG TAB PO SCH (20:43)
[2018-03-10 22:35] LABS: Cholesterol 181 mg/dL (<200); HDL Cholesterol 50 mg/dL (40-60); LDL Cholesterol,Calculated 73 mg/dL (0-99); Triglycerides 292 mg/dL (<150)
[2018-03-11 06:24] LABS: Glucose,Whole Blood 106 mg/dL (75-99)
[2018-03-11] MEDS: INSULIN ASPART 100 UNIT/ML 1 ML 10 ML VIAL SQ SCH ×4 (06:25→21:17)
[2018-03-11] MEDS: PANTOPRAZOLE 40 MG TABLET PO SCH (06:28)
[2018-03-11] MEDS: LISINOPRIL 20 MG TAB PO SCH (08:07)
[2018-03-11] MEDS: ISOSORBIDE MONONITRATE ER 60 MG TAB.ER.24H PO SCH ×2 (08:07→20:57)
[2018-03-11] MEDS: CITALOPRAM HYDROBROMIDE 20 MG TAB PO SCH (08:07)
[2018-03-11] MEDS: GABAPENTIN 100 MG CAP PO SCH ×2 (08:08→20:57)
[2018-03-11] MEDS: METOPROLOL TARTRATE 25 MG TAB PO SCH ×2 (08:08→20:57)
[2018-03-11] MEDS: FUROSEMIDE 40 MG TAB PO SCH ×2 (08:08→16:23)
[2018-03-11] MEDS: DIVALPROEX 250 MG TABLET.DR PO SCH (08:09)
[2018-03-11 08:36] LABS: Basophils # (A) 0.1 k/uL (0-0.2); Basophils % (A) 1 %; Eosinophils # (A) 0.3 k/uL (0-0.7); Eosinophils % (A) 3 %; HCT 34.4 % (34.0-46.0); HGB 10.4 gm/dL (11.4-16.0); Lymphocytes # (A) 3.1 k/uL (1.0-4.8); Lymphocytes % (A) 26 %; MCH 32.4 pg (25.0-35.0); MCHC 30.4 g/dL (31.0-37.0); MCV 106.7 fL (80.0-100.0); Macrocytosis Moderate; Mean Platelet Volume 6.9; Monocytes # (A) 0.7 k/uL (0-1.0); Monocytes % (A) 6 %; Neutrophils # (A) 7.3 k/uL (1.3-7.7); Neutrophils % (A) 63 %; Platelet Count 203 k/uL (150-450); RBC 3.22 m/uL (3.80-5.40); RDW 13.3 % (11.5-15.5); WBC 11.7 k/uL (3.8-10.6)
[2018-03-11 08:47] LABS: Albumin 3.1 g/dL (3.5-5.0); Calcium 9.3 mg/dL (8.4-10.2); Potassium 5.2 mmol/L (3.5-5.1); Total Bilirubin 0.4 mg/dL (0.2-1.3); Total Protein 5.1 g/dL (6.3-8.2)
[2018-03-11] MEDS ORDERED: ASPIRIN 325 MG TAB PO SCH (09:00)
--- NOTE | 2018-03-11 09:55 | HP ---
HISTORY AND PHYSICAL CHIEF COMPLAINT: 72-year-old white female with chest pain. HISTORY OF PRESENT ILLNESS: This 72-year-old sent here for sharp chest discomfort associated with nausea, vomiting, sweating. History of coronary artery disease. Recent cardiac catheterization showed totally occluded circumflex coronary artery, unsuccessful, possible transfer down to [facility] discussed with the family per nursing. PAST MEDICAL HISTORY: Asthma, coronary artery disease, cancer, chest pain, angina, diabetes mellitus, GERD, hypertension, dyslipidemia, memory impairment, pneumonia, sleep apnea, insulin- dependent diabetes mellitus, sleep apnea, hypothyroidism, anemia, cervical cancer, hysterectomy, MRSA, cholecystectomy, bladder surgery, heart catheterization, stent, hysterectomy, partial parathyroidectomy, bilateral cataracts, ankle surgery. FAMILY HISTORY: Brother with coronary artery disease. Father coronary artery disease. Mother with asthma and COPD. HOME MEDICINES: Klonopin, tramadol, Zestril, nitro sublingual, Lipitor, Lasix, aspirin, vitamin D, Neurontin, NovoLog, Lantus. ALLERGIES: See list. PHYSICAL EXAMINATION: VITAL SIGNS: Vital signs appear to be temp 98, pulse is high 50s, respiratory 16 to 18, blood pressure is 140s over 60s over 70s to 110, pulse ox 83-100 percent. Cardiovascular: S1-S2. Lungs: Show rales at the bases. Hematology: Morbid obesity. Endocrine: BMI is over 50. GI is soft. HEMATOLOGY: Negative Homans. Tenderness to palpation epigastric. Vascular: Normal dorsalis pedis posterior tibial, radial pulse. ASSESSMENT AND PLAN: 1. Acute coronary unstable angina, coronary artery disease. Suspect she needs a stent or some treatment down in possibly transfer down to [place] due to unable to put a stent here in [facility]. 2. Hyponatremia. 3. Hyperkalemia. 4. Acute on chronic anemia. 5. Chronic obstructive pulmonary disease. 6. Generalized leg weakness and inability to walk. We will get [facility] to monitor her for not being able to ambulate. 7. Please see further orders. MMODL / IJN: [id number] /
[2018-03-11 12:16] LABS: Glucose,Whole Blood 158 mg/dL (75-99)
--- NOTE | 2018-03-11 12:49 | P.CNOR ---
History of Present Illness - [facility] Consult date: 03/11/18 Consult reason: low back pain (and leg weakness) History of present illness: The patient is a 72-year-old female with multiple medical problems who presented to the hospital with chest pain and weakness. The patient was admitted for further evaluation by cardiology. She was found to have bilateral leg weakness and lower back pain and orthopedics was consulted for further evaluation. The patient states that she fell on 02/11/2018 while in the bathroom. No new pain since the fall but states that her legs have progressively weakened over the past few months. She has not seen anyone for her back in the past and has not had testing or other treatments. Today, the patient denies fever, chills, rigors, shortness breath, chest pain, and abdominal pain at this time. She does have numbness to her bilateral feet, which is not new. She denies bowel or bladder problems. Review of Systems Constitutional: Denies chills, Denies fatigue, Denies fever Cardiovascular: Reports chest pain, Denies shortness of breath Respiratory: Denies cough Gastrointestinal: Denies diarrhea, Denies nausea, Denies vomiting Musculoskeletal: Reports leg numbness/tingling, Reports low back pain Past Medical History Past Medical History: Asthma, Coronary Artery Disease (CAD), Cancer, Chest Pain / Angina, CVA/TIA, Diabetes Mellitus, GERD/Reflux, Hyperlipidemia, Hypertension , Memory Impairment, Pneumonia, Sleep Apnea/CPAP/BIPAP Additional Past Medical History / Comment(s): IDDM type II, TAMRA unable to tolerate CPAP, bronchitis, chronic low back pain- bulging discs, scoliosis, urinary incontinence, IBS, gastric ulcers, hiatal hernia, TIA 3 yrs roughly ago- memory impairment, uses O2 @2l continuously, hypothyroid, hemorrhoids, anemia, Cervical CA hysterectomy, sinus problems at times. History of Any Multi-Drug Resistant Organisms: MRSA Year Discovered:: 04/02/11 MDRO Source:: L chest/L lower leg/ankle Past Surgical History: Bladder Surgery, Cholecystectomy, Heart Catheterization, Heart Catheterization With Stent, Hysterectomy Additional Past Surgical History / Comment(s): PCI with a total of 5 stents per pt with last stent placed 06/29/16, partial parathyroidectomy, bilateral cataracts removed, I and D of L chest wall abscess and L ankle wound, bladder surgery with implant of stimulator system 02/2010, EGD/colonoscoy. Past Anesthesia/Blood Transfusion Reactions: No Reported Reaction Additional Past Anesthesia/Blood Transfusion Reaction / Comm: Pt states she has received blood in the past without reaction. Date of Last Stent Placement:: 06/29/16 Past Psychological History: Anxiety, Depression Additional Psychological History / Comment(s): [facility]ID[facility]. USES [facility]C . HOME CARE FROM [facility]FOR MEDICATION ADMINISTRATION. O2 at 2L/NC ATC. Staff manages her medications. She goes to a [facility] area for meals usually- Patient currently resides at [facility] for rehab Smoking Status: Never smoker Past Alcohol Use History: None Reported Past Drug Use History: None Reported - Past Family History Brother(s) Family Medical History: Coronary Artery Disease (CAD) Father Family Medical History: Cancer, Coronary Artery Disease (CAD) Additional Family Medical History / Comment(s): Father had prostate cancer. Mother Family Medical History: Asthma, COPD Medications and Allergies Home Medications Medication Instructions Recorded Confirmed Type Citalopram Hydrobromide [CeleXA] 40 mg PO DAILY 09/20/14 03/10/18 History clonazePAM [KlonoPIN] 1 mg PO TID 09/20/14 03/10/18 History Ferrous Sulfate [Iron (65 MG 325 mg PO DAILY tab 10/08/15 03/10/18 Rx Elemental)] traMADol HCl [Ultram] 50 mg PO TID 10/19/16 03/10/18 History Lisinopril [Zestril] 20 mg PO DAILY 12/21/16 03/10/18 History Nitroglycerin Sl Tabs [Nitrostat] 0.4 mg SUBLINGUAL Q5M PRN #30 tab 12/23/1607/22 Rx Atorvastatin [Lipitor] 40 mg PO HS 01/30/17 03/10/18 History Aspirin EC [Ecotrin Low Dose] 81 mg PO DAILY 12/14/17 03/10/18 History Cholecalciferol (Vitamin D3) 2,000 unit PO DAILY 12/14/17 03/10/18 History [Vitamin D3] Gabapentin [Neurontin] 100 mg PO BID 12/14/17 03/10/18 History Insulin Glargine,Hum.rec.anlog 50 unit SQ HS 12/14/17 03/10/18 History [Lantus Solostar] Ipratropium-Albuterol Nebulize 3 ml INHALATION RT-QID PRN 12/14/17 03/10/18 History [Duoneb 0.5 mg-3 mg/3 ml Soln] Isosorbide Mononitrate ER [Imdur] 60 mg PO DAILY 12/14/17 03/10/18 History Pantoprazole Sodium [Protonix] 40 mg PO DAILY 12/14/17 03/10/18 History predniSONE 20 mg PO DAILY 12/14/17 03/10/18 History Acetaminophen [Tylenol] 325 mg PO BID 01/16/18 03/10/18 History Divalproex [Depakote] 250 mg PO DAILY 01/16/18 03/10/18 History Oxybutynin Chloride [Ditropan XL] 5 mg PO DAILY 01/16/18 03/10/18 History Cholestyramine (with Sugar) 4 gm PO TID BETWEEN MEALS packet 02/13/18 03/10/18 Rx [Questran Packet] Furosemide [Lasix] 40 mg PO BID@0800,2000 03/10/18 03/10/18 History Insulin Regular [humuLIN R] See Protocol SQ ACHS 03/10/18 03/10/18 History Allergies Allergy/AdvReac Type Severity Reaction Status Date / Time latex Allergy Mild Rash/Hives Verified 03/10/18 09:58 codeine Allergy Anaphylaxis Verified 03/10/18 09:58 morphine Allergy Hallucinati Verified 03/10/18 09:58 ons Penicillins Allergy Anaphylaxis Verified 03/10/18 09:58 propoxyphene napsylate Allergy Anaphylaxis Verified 03/10/18 09:58 [From Darvocet-N 100] tuberculin, purified protein Allergy Rash/Hives Verified 03/10/18 09:58 deriva [tuberculin,purif.prot.deriv.] adhesive AdvReac Mild Rash/Hives, Verified 03/10/18 09:58 W/ TAPES, CAN USE PAPER TAPE Physical Examination Exam of the back reveals no dimples, patches, lacerations, or abrasions. Non- tender to palpation over the midline. There is some paravertebral spasm. No pain on internal or external rotation of bilateral hips. Right Lower extremity: Motor strength of the lower extremity is 4/5 including dorsiflexion, plantar flexion, extensor hallucis longus, hip flexion, knee extension abduction and adduction. Left Lower extremity: Motor strength of the lower extremity is 2/5 including dorsiflexion, plantar flexion, extensor hallucis longus, hip flexion, knee extension abduction and adduction. Results - Labs Labs: Abnormal Lab Results - Last 24 Hours (Table) 03/10/18 03/10/18 03/10/18 Range/Units 02:12 09:33 14:21 WBC (3.8-10.6) k/uL RBC (3.80-5.40) m/uL Hgb (11.4-16.0) gm/dL MCV (80.0-100.0) fL MCHC (31.0-37.0) g/dL Potassium (3.5-5.1) mmol/L Carbon Dioxide (22-30) mmol/L BUN (7-17) mg/dL Creatinine (0.52-1.04) mg/dL POC Glucose (mg/dL) (75-99) mg/dL Hemoglobin A1c 8.3 H (4.0-6.0) % AST (14-36) U/L Alkaline Phosphatase (38-126) U/L Total Creatine Kinase <20 L (30-135) U/L Troponin I 0.532 H* (0.000-0.034) ng/mL Total Protein (6.3-8.2) g/dL Albumin (3.5-5.0) g/dL Triglycerides 292 H (<150) mg/dL 03/10/18 03/10/18 03/11/18 Range/Units 16:50 20:04 06:22 WBC (3.8-10.6) k/uL RBC (3.80-5.40) m/uL Hgb (11.4-16.0) gm/dL MCV (80.0-100.0) fL MCHC (31.0-37.0) g/dL Potassium (3.5-5.1) mmol/L Carbon Dioxide (22-30) mmol/L BUN (7-17) mg/dL Creatinine (0.52-1.04) mg/dL POC Glucose (mg/dL) 183 H 149 H 106 H (75-99) mg/dL Hemoglobin A1c (4.0-6.0) % AST (14-36) U/L Alkaline Phosphatase (38-126) U/L Total Creatine Kinase (30-135) U/L Troponin I (0.000-0.034) ng/mL Total Protein (6.3-8.2) g/dL Albumin (3.5-5.0) g/dL Triglycerides (<150) mg/dL 03/11/18 03/11/18 03/11/18 Range/Units 07:41 07:41 11:54 WBC 11.7 H (3.8-10.6) k/uL RBC 3.22 L (3.80-5.40) m/uL Hgb 10.4 L (11.4-16.0) gm/dL MCV 106.7 H (80.0-100.0) fL MCHC 30.4 L (31.0-37.0) g/dL Potassium 5.2 H (3.5-5.1) mmol/L Carbon Dioxide 33 H (22-30) mmol/L BUN 60 H (7-17) mg/dL Creatinine 1.17 H (0.52-1.04) mg/dL POC Glucose (mg/dL) 158 H (75-99) mg/dL Hemoglobin A1c (4.0-6.0) % AST 13 L (14-36) U/L Alkaline Phosphatase 32 L (38-126) U/L Total Creatine Kinase (30-135) U/L Troponin I (0.000-0.034) ng/mL Total Protein 5.1 L (6.3-8.2) g/dL Albumin 3.1 L (3.5-5.0) g/dL Triglycerides (<150) mg/dL H & H 03/10/18 03/11/18 Range/Units 02:12 07:41 Hgb 10.5 L 10.4 L (11.4-16.0) gm/dL Hct 33.4 L 34.4 (34.0-46.0) % Coagulation 03/10/18 Range/Units 02:12 INR 0.9 (<1.2) Result Diagrams: 03/11/18 07:41 03/11/18 07:41 Assessment and Plan (1) Chest pain Current Visit: Yes Status: Acute Code(s): R07.9 - CHEST PAIN, UNSPECIFIED SNOMED Code(s): 17208918 (2) Morbid obesity Current Visit: Yes Status: Acute Code(s): E66.01 - MORBID (SEVERE) OBESITY DUE TO EXCESS CALORIES SNOMED Code(s): 233154143 (3) Weakness Current Visit: No Status: Acute Code(s): R53.1 - WEAKNESS SNOMED Code(s): 48989070 (4) Lumbago Current Visit: No Status: Chronic Code(s): M54.5 - LOW BACK PAIN SNOMED Code(s): 372589601 (5) Lumbar degenerative disc disease Current Visit: No Status: Chronic Code(s): M51.36 - OTHER INTERVERTEBRAL DISC DEGENERATION, LUMBAR REGION SNOMED Code(s): 05029995 Plan: The clinical findings were discussed with the patient. Her bilateral leg weakness appears to be related to her lumbar spine. X-rays have been ordered. The patient may ambulate and transferred to a chair as tolerated. The patient will be further evaluated by orthopedic spine, Dr. Dorantes tomorrow following x- ray results. Further imaging may be needed depending on the patient's course. Continue pain control with Ultram.
--- NOTE | 2018-03-11 13:57 | XR ---
EXAMINATION TYPE: XR lumbar spine 2 or 3V , 3 VIEWS DATE OF EXAM ORDERED: 03/11/2018 HISTORY: low back pain and bilateral leg pain. COMPARISON: Previous study dated 10/16/2014. FINDINGS: There is a moderate dextroscoliosis. Vertebral body height and alignment are maintained. There is no spondylolysis or spondylolisthesis. T here is disc space loss at virtually all levels but worse at L4-5 and L5-S1. The pedicles are intact. No acute fracture is seen. IMPRESSION: 1. NO ACUTE OSSEOUS LESION. 2. MODERATE DEGENERATIVE CHANGE. 3. DEXTROSCOLIOSIS.
[2018-03-11] MEDS: FUROSEMIDE 20 MG TAB PO SCH (16:09)
--- NOTE | 2018-03-11 16:25 | P.PN ---
Subjective Progress Note Date: 03/11/18 This is a 72-year-old patient admitted to the hospital with intermittent sharp chest discomfort in the left precordial area usually lasting a few seconds to a minute not associated with any nausea vomiting or sweating. She has a known history of coronary artery disease, recently underwent a cardiac catheterization which revealed a totally occluded circumflex artery, PTCA was attempted but was unsuccessful and patient was advised medical treatment. Patient is confined to a wheelchair and unable to ambulate, she uses oxygen at night. Patient does have history of TIA, diabetes, hyperlipidemia, hypertension , sleep apnea. Troponins 0.025, 0.43, 0.53. Patient was seen and examined today, denies any chest discomfort at present. Blood pressure 116/66 with a heart rate in the 70s Objective - Vital Signs Vital signs: Vital Signs Temp 97.6 F 03/11/18 08:00 Pulse 79 03/11/18 12:00 Resp 20 03/11/18 16:00 BP 88/40 03/11/18 16:00 Pulse Ox 96 03/11/18 16:00 Intake & Output 03/10/18 03/11/18 03/11/18 18:59 06:59 18:59 Intake Total 180 Output Total 300 900 Balance -300 -720 Weight 137.438 kg 140.5 kg Intake: Oral 180 Output: Urine 300 900 Other: Voiding Method Bedpan Bedpan Bedpan Incontinent Incontinent Incontinent # Voids 1 1 1 # Bowel Movements 1 1 - Exam Patient's vital signs are reviewPatient's vital signs are reviewed. The patient is alert awake and in no acute distress. HEENT negative. Neck-supple no increase in JVP noted no carotid bruits noted. Chest-symmetrical. Heart-first and second heart sounds are normal. No S3 or S4 is noted. No significant murmurs are noted. Lungs bilateral good at entry is noted. No rales or rhonchi are noted Abdomen-soft. Liver and spleen are not enlarged. The bowel sounds are normal. No tenderness noted Extremities-peripheral pulses since are 2+. No significant leg edema noted. Neuro-no significant gross abnormality noted. - Labs CBC & Chem 7: 03/11/18 07:41 03/11/18 07:41 Labs: Abnormal Lab Results - Last 24 Hours (Table) 03/10/18 03/10/18 03/10/18 Range/Units 02:12 09:33 16:50 WBC (3.8-10.6) k/uL RBC (3.80-5.40) m/uL Hgb (11.4-16.0) gm/dL MCV (80.0-100.0) fL MCHC (31.0-37.0) g/dL Potassium (3.5-5.1) mmol/L Carbon Dioxide (22-30) mmol/L BUN (7-17) mg/dL Creatinine (0.52-1.04) mg/dL POC Glucose (mg/dL) 183 H (75-99) mg/dL Hemoglobin A1c 8.3 H (4.0-6.0) % AST (14-36) U/L Alkaline Phosphatase (38-126) U/L Total Protein (6.3-8.2) g/dL Albumin (3.5-5.0) g/dL Triglycerides 292 H (<150) mg/dL 03/10/18 03/11/18 03/11/18 Range/Units 20:04 06:22 07:41 WBC 11.7 H (3.8-10.6) k/uL RBC 3.22 L (3.80-5.40) m/uL Hgb 10.4 L (11.4-16.0) gm/dL MCV 106.7 H (80.0-100.0) fL MCHC 30.4 L (31.0-37.0) g/dL Potassium (3.5-5.1) mmol/L Carbon Dioxide (22-30) mmol/L BUN (7-17) mg/dL Creatinine (0.52-1.04) mg/dL POC Glucose (mg/dL) 149 H 106 H (75-99) mg/dL Hemoglobin A1c (4.0-6.0) % AST (14-36) U/L Alkaline Phosphatase (38-126) U/L Total Protein (6.3-8.2) g/dL Albumin (3.5-5.0) g/dL Triglycerides (<150) mg/dL 03/11/18 03/11/18 Range/Units 07:41 11:54 WBC (3.8-10.6) k/uL RBC (3.80-5.40) m/uL Hgb (11.4-16.0) gm/dL MCV (80.0-100.0) fL MCHC (31.0-37.0) g/dL Potassium 5.2 H (3.5-5.1) mmol/L Carbon Dioxide 33 H (22-30) mmol/L BUN 60 H (7-17) mg/dL Creatinine 1.17 H (0.52-1.04) mg/dL POC Glucose (mg/dL) 158 H (75-99) mg/dL Hemoglobin A1c (4.0-6.0) % AST 13 L (14-36) U/L Alkaline Phosphatase 32 L (38-126) U/L Total Protein 5.1 L (6.3-8.2) g/dL Albumin 3.1 L (3.5-5.0) g/dL Triglycerides (<150) mg/dL Assessment and Plan Plan: Assessment and plan #1 symptoms of chest discomfort, atypical, mild abnormality in troponin noted. Patient did have a recent cardiac catheterization which revealed a totally occluded circumflex artery on amendable to PCI, maximal medical therapy advised #2 diabetes #3 hypertension #4 hyperlipidemia #5 prior TIA #6 wheelchair bound Plan We will continue with maximum medical therapy, including aspirin daily, Lipitor , Lasix 20 twice a day, Imdur 60 twice a day, lisinopril 10 mg daily, and metoprolol 25 mg one tablet by mouth twice a day, if patient remains stable plan for possible discharge home in 24 hours. DNP note has been reviewed, I agree with a documented findings and plan of care. Patient was seen and examined.
[2018-03-11] MEDS: traMADol 50 MG TAB PO PRN (16:27)
--- NOTE | 2018-03-11 17:09 | ECHOF ---
Referral Reason:chest pain MEASUREMENTS -------- HEIGHT: 154.9 cm WEIGHT: 137.4 kg BP: 125/50 RVIDd: 3.1 cm (< 3.3) IVSd: 1.2 cm (0.6 - 1.1) LVIDd: 4.7 cm (3.9 - 5.3) LVPWd: 1.4 cm (0.6 - 1.1) IVSs: 1.8 cm LVIDs: 2.9 cm LVPWs: 1.6 cm LA Diam: 3.7 cm (2.7 - 3.8) LAESV Index (A-L): 47.08 ml/m Ao Diam: 2.8 cm (2.0 - 3.7) AV Cusp: 1.5 cm (1.5 - 2.6) EPSS: 0.8 cm MV E Claudio: 1.22 m/s MV DecT: 289 ms MV A Claudio: 1.00 m/s MV E/A Ratio: 1.22 AV maxP.70 mmHg AV meanP.22 mmHg RAP: 5.00 mmHg RVSP: 46.24 mmHg MV EF SLOPE: 46.16 mm/s (70 - 150) MV EXCURSION: 1.50 cm (> 18.000) FINDINGS -------- Sinus rhythm. This was a technically adequate study. The left ventricular size is normal. There is moderate concentric left ventricular hypertrophy. O verall left ventricular systolic function is normal with, an EF between 60 - 65 %. The right ventricle is normal in size. LA is severely dilated >40 ml/m2 The right atrium is normal in size. Aortic valve is trileaflet and is mildly thickened. Trace amount of aortic regurgitation. The mitral valve leaflets are mildly thickened. Mild mitral annular calcification present. Mild tricuspid regurgitation present. There is moderate pulmonary hypertension. The right ventric ular systolic pressure, as measured by Doppler, is 46.24mmHg. Trace/mild (physiologic) pulmonic regurgitation. The aortic root size is normal. Normal inferior vena cava with normal inspiratory collapse consistent with estimated right atrial pre ssure of 5 mmHg. There is no pericardial effusion. CONCLUSIONS -------- 1. Sinus rhythm. 2. This was a technically adequate study. 3. The left ventricular size is normal. 4. There is moderate concentric left ventricular hypertrophy. 5. Overall left ventricular systolic function is normal with, an EF between 60 - 65 %. 6. The right ventricle is normal in size. 7. LA is severely dilated >40 ml/m2 8. The right atrium is normal in size. 9. Aortic valve is trileaflet and is mildly thickened. 10. Trace amount of aortic regurgitation. 11. The mitral valve leaflets are mildly thickened. 12. Mild mitral annular calcification present. 13. Mild tricuspid regurgitation present. 14. There is moderate pulmonary hypertension. 15. The right ventricular systolic pressure, as measured by Doppler, is 46.24mmHg. 16. Trace/mild (physiologic) pulmonic regurgitation. 17. The aortic root size is normal. 18. Normal inferior vena cava with normal inspiratory collapse consistent with estimated right atrial pressure of 5 mmHg. 19. There is no pericardial effusion. PATCH WORKER: CHELITA Silva
[2018-03-11 17:14] LABS: Glucose,Whole Blood 196 mg/dL (75-99)
--- NOTE | 2018-03-11 18:37 | PN ---
PROGRESS NOTE SUBJECTIVE: 72-year-old with chest pain. She had unsuccessful stent a few weeks ago. Still has some chest pain. Blood pressure is 116/66, heart rate in the 70s. Orthopedic is evaluating her for lumbar disc disease with given her inability to ambulate. Blood pressure 88/40, temp 97.6, pulse 79, respiratory 18 to 20, cardiovascular S1-S2. Lungs clear. GI soft. Hematology negative Homans. Psych: Fair mood and affect. Muscular is extremity weakness as mentioned above. ASSESSMENT: 1. Atypical chest discomfort. 2. Elevated troponin. 3. Totally occluded circumflex. Due to repeat chest pain, may need to be sent down to [facility] for attempt at a stent placement down there. Continue on her blood pressure medications. She does not want to go back to [facility] [place]. [facility] [place]. MMODL / IJN: [id number] /
[2018-03-11] MEDS: ATORVASTATIN 40 MG TAB PO SCH (20:57)
[2018-03-11 21:12] LABS: Glucose,Whole Blood 208 mg/dL (75-99)
[2018-03-12 05:51] LABS: Glucose,Whole Blood 167 mg/dL (75-99)
[2018-03-12] MEDS: PANTOPRAZOLE 40 MG TABLET PO SCH (06:25)
[2018-03-12] MEDS: INSULIN ASPART 100 UNIT/ML 1 ML 10 ML VIAL SQ SCH ×4 (06:25→21:30)
[2018-03-12] MEDS: clonazePAM 1 MG TAB PO PRN ×2 (09:22→17:40)
[2018-03-12] MEDS: GABAPENTIN 100 MG CAP PO SCH ×2 (09:22→21:30)
[2018-03-12] MEDS: traMADol 50 MG TAB PO PRN ×3 (09:22→17:40)
[2018-03-12] MEDS: METOPROLOL TARTRATE 25 MG TAB PO SCH ×2 (09:22→21:30)
[2018-03-12] MEDS: CITALOPRAM HYDROBROMIDE 20 MG TAB PO SCH (09:22)
[2018-03-12] MEDS: ASPIRIN 81 MG PO SCH (09:22)
[2018-03-12] MEDS: DIVALPROEX 250 MG TABLET.DR PO SCH (09:23)
[2018-03-12] MEDS: ISOSORBIDE MONONITRATE ER 60 MG TAB.ER.24H PO SCH ×2 (09:23→21:30)
[2018-03-12] MEDS: FUROSEMIDE 20 MG TAB PO SCH ×2 (09:23→17:40)
[2018-03-12] MEDS: LISINOPRIL 10 MG TAB PO SCH (09:23)
--- NOTE | 2018-03-12 11:18 | P.PN ---
Subjective Progress Note Date: 03/12/18 This is a 72-year-old patient admitted to the hospital with intermittent sharp chest discomfort in the left precordial area usually lasting a few seconds to a minute not associated with any nausea vomiting or sweating. She has a known history of coronary artery disease, recently underwent a cardiac catheterization which revealed a totally occluded circumflex artery, PTCA was attempted but was unsuccessful and patient was advised medical treatment. Patient is confined to a wheelchair and unable to ambulate, she uses oxygen at night. Patient does have history of TIA, diabetes, hyperlipidemia, hypertension , sleep apnea. Troponins 0.025, 0.43, 0.53. Patient was seen and examined today, denies any chest discomfort at present. Blood pressure 116/66 with a heart rate in the 70s. 03/12/2018 Patient was seen and examined this morning, she denies any further chest discomfort. She does state that she slept well through the night last night. Blood pressure 100/40 with a heart rate is 60, 97% on 2 L of oxygen. An MRI of the spine has been ordered today by orthopedic service. From our perspective she is remaining stable. Objective - Vital Signs Vital signs: Vital Signs Temp 97.1 F L 03/12/18 04:00 Pulse 57 L 03/12/18 08:00 Resp 16 03/12/18 08:00 BP 100/38 03/12/18 08:00 Pulse Ox 97 03/12/18 04:00 Intake & Output 03/11/18 03/12/18 03/12/18 18:59 06:59 18:59 Intake Total 402 120 Output Total 900 200 Balance -498 -200 120 Weight 134.5 kg Intake: Oral 402 120 Output: Urine 900 200 Other: Voiding Method Bedpan Bedpan Bedpan Incontinent Incontinent Incontinent # Voids 1 # Bowel Movements 1 - Exam Patient's vital signs are reviewPatient's vital signs are reviewed. The patient is alert awake and in no acute distress. HEENT negative. Neck-supple no increase in JVP noted no carotid bruits noted. Chest-symmetrical. Heart-first and second heart sounds are normal. No S3 or S4 is noted. No significant murmurs are noted. Lungs bilateral good at entry is noted. No rales or rhonchi are noted Abdomen-soft. Liver and spleen are not enlarged. The bowel sounds are normal. No tenderness noted Extremities-peripheral pulses since are 2+. No significant leg edema noted. Neuro-no significant gross abnormality noted. - Labs CBC & Chem 7: 03/11/18 07:41 03/11/18 07:41 Labs: Abnormal Lab Results - Last 24 Hours (Table) 03/11/18 03/11/18 03/11/18 Range/Units 11:54 17:00 21:11 POC Glucose (mg/dL) 158 H 196 H 208 H (75-99) mg/dL 03/12/18 Range/Units 05:49 POC Glucose (mg/dL) 167 H (75-99) mg/dL Assessment and Plan Plan: Assessment and plan #1 symptoms of chest discomfort, atypical, mild abnormality in troponin noted. Patient did have a recent cardiac catheterization which revealed a totally occluded circumflex artery on amendable to PCI, maximal medical therapy advised #2 diabetes #3 hypertension #4 hyperlipidemia #5 prior TIA #6 wheelchair bound Plan We will continue with maximum medical therapy, including aspirin daily, Lipitor , Lasix 20 twice a day, Imdur 60 twice a day, lisinopril 10 mg daily, and metoprolol 25 mg one tablet by mouth twice a day, she may be able to be [facility] once cleared by Dr. Yi. We will make her a follow-up appointment in our office post discharge. DNP note has been reviewed, I agree with a documented findings and plan of care. Patient was seen and examined.
[2018-03-12 12:21] LABS: Glucose,Whole Blood 204 mg/dL (75-99)
--- NOTE | 2018-03-12 15:07 | P.PN ---
Progress Note - Text Progress Note Date: 03/12/18 Patient is a pleasant 72-year-old female who is examined at bedside following evaluation for her lumbar spine. She continues to have ongoing low back pain and bilateral lower extremity weakness. She states her back pain is exacerbated with any increased activities. Her back pain is controlled while sitting or laying down. She feels weakness during any increased ambulation. She resides at [facility]. She states she got stuck in her assisted living apartment on 02/11/2018. She called for assistance. At that time they attempted to help get her up and she states they dropped her onto the ground. She states her weakness has been worse since that time. She has not had any specific evaluation for her lumbar spine. X-rays lumbar spine were performed yesterday which showed degenerative changes. She states she also has pain of the bilateral lower extremities below the knees. She does have significant medical history which includes diabetes mellitus, hypertension, hyperlipidemia, and history of TIA. She is currently being seen and examined and treated by cardiology for atypical chest discomfort. Recent heart catheterization showed 100% occlusion of the circumflex artery. There was also mild abnormality in troponin levels. She does state she has a history of cardiac stent placement performed years ago. She also has history of neurogenic bladder and states she had leads placed to try to help control her bladder. She continues to be seen in exam by medicine. Physical exam: Patient is awake, alert, and oriented 3 Vital signs stable Good chest excursion with deep inspiration and expiration Examination of lumbar spine is not performed as patient is currently lying in bed. Dorsiflexion, plantarflexion, and extensor hallucis longus positive sustained bilaterally Patient is able to independently lift legs off the bed but movements are slow and weaker on the right than the left No lower extremity hyperreflexia bilaterally Straight leg test negative bilateral lower extremities No signs or symptoms of DVT; no calf pain No pain with internal and external rotation of the hips bilaterally Neurovascularly intact Pertinent studies: X-rays of the lumbar spine: Degenerative scoliosis; L3-4 severe asymmetric degenerative disc disease; L4-5 and L5-S1 near-complete disc height loss; no obvious vertebral body compression fracture; evidence of wire lead placement within the pelvis Assessment: Low back pain Lumbar and Lumbosacral degenerative disc disease Degenerative scoliosis Bilateral lower extremity weakness with difficulty with ambulation due to weakness Bilateral lower extremity leg pain below the knees Atypical chest discomfort with mild troponin abnormality History of cardiac stent placement History of diabetes mellitus History of hypertension History of hyperlipidemia History of TIA Plan: 1. Patient states she has had increased bilateral lower extremity weakness after a recent injury on 02/07/2018. She has significant low back pain as well which has been controlled with sitting and resting. Her back pain is exacerbated with increased activities including standing. She does have difficulty with ambulation due to weakness of bilateral lower extremities. Prior to her fall she states she was able to ambulate with the assistance of a walker. Recent x-ray imaging does show significant degenerative changes at the lower lumbosacral spine along with degenerative scoliosis. No obvious fracture was identified on x-ray imaging. At this time, we'll plan to obtain an MRI of the lumbar spine for further evaluation of the spinal cord, nerves, and disc spacing. We'll follow up with an appropriate plan of care depending on those MRI results. We discussed treatment plan may include consultation with pain management. 2. Continue pain control with medications as prescribed 3. Cardiology will continue following the patient 4. Medicine will continue following the patient 5. Patient will be discussed in detail with Dr. Mahin Dorantes
[2018-03-12 16:37] LABS: Glucose,Whole Blood 286 mg/dL (75-99)
[2018-03-12 21:03] LABS: Glucose,Whole Blood 199 mg/dL (75-99)
[2018-03-12] MEDS: ATORVASTATIN 40 MG TAB PO SCH (21:30)
--- NOTE | 2018-03-13 00:22 | PN ---
PROGRESS NOTE DATE OF SERVICE: 03/12/2017. SUBJECTIVE: She wanted to be consult with [facility] for epidural shot in the lumbar spine as she is unable to ambulate. Orthopedics saw her and felt she was not ambulating due to difficulty with her lower back. OBJECTIVE: Vital signs stable, afebrile. Cardiovascular S1, S2. Lungs clear. GI soft. Hematology negative Homans. Troponins essentially negative x3. ASSESSMENT: 1. Coronary artery disease. Maximal medical therapy is advised. 2. Lumbar disk disease. 3. Diabetes. 4. Hypertension. 5. Prior transient ischemic attack. 6. Wheelchair-bound. PLAN: Medications will be continued. Possibly go back to an ECF after lumbar epidural has been ordered per [facility]. MMODL / IJN: [id number] /
[2018-03-13] MEDS: traMADol 50 MG TAB PO PRN ×3 (01:13→20:06)
[2018-03-13] MEDS: clonazePAM 1 MG TAB PO PRN ×3 (01:13→20:06)
[2018-03-13 05:54] LABS: Glucose,Whole Blood 199 mg/dL (75-99)
[2018-03-13] MEDS: INSULIN ASPART 100 UNIT/ML 1 ML 10 ML VIAL SQ SCH ×4 (06:24→21:09)
[2018-03-13] MEDS: PANTOPRAZOLE 40 MG TABLET PO SCH (06:24)
[2018-03-13] MEDS: LISINOPRIL 10 MG TAB PO SCH (09:31)
[2018-03-13] MEDS: CITALOPRAM HYDROBROMIDE 20 MG TAB PO SCH (09:35)
[2018-03-13] MEDS: GABAPENTIN 100 MG CAP PO SCH ×2 (09:35→20:06)
[2018-03-13] MEDS: FUROSEMIDE 20 MG TAB PO SCH ×2 (09:35→15:57)
[2018-03-13] MEDS: ISOSORBIDE MONONITRATE ER 60 MG TAB.ER.24H PO SCH ×2 (09:35→20:06)
[2018-03-13] MEDS: ASPIRIN 81 MG PO SCH (09:35)
[2018-03-13] MEDS: DIVALPROEX 250 MG TABLET.DR PO SCH (09:35)
[2018-03-13] MEDS: METOPROLOL TARTRATE 25 MG TAB PO SCH ×2 (09:35→20:06)
[2018-03-13 11:51] LABS: Glucose,Whole Blood 234 mg/dL (75-99)
--- NOTE | 2018-03-13 12:04 | P.PN ---
Subjective Progress Note Date: 03/13/18 This is a 72-year-old patient admitted to the hospital with intermittent sharp chest discomfort in the left precordial area usually lasting a few seconds to a minute not associated with any nausea vomiting or sweating. She has a known history of coronary artery disease, recently underwent a cardiac catheterization which revealed a totally occluded circumflex artery, PTCA was attempted but was unsuccessful and patient was advised medical treatment. Patient is confined to a wheelchair and unable to ambulate, she uses oxygen at night. Patient does have history of TIA, diabetes, hyperlipidemia, hypertension , sleep apnea. Troponins 0.025, 0.43, 0.53. Patient was seen and examined today, denies any chest discomfort at present. Blood pressure 116/66 with a heart rate in the 70s. 03/12/2018 Patient was seen and examined this morning, she denies any further chest discomfort. She does state that she slept well through the night last night. Blood pressure 100/40 with a heart rate is 60, 97% on 2 L of oxygen. An MRI of the spine has been ordered today by orthopedic service. From our perspective she is remaining stable. 03/13/2018 Patient was seen and examined this morning, denies any chest pains. He continues to be somewhat depressed. Stable from cardiology's perspective. Objective - Vital Signs Vital signs: Vital Signs Temp 96.4 F L 03/13/18 08:00 Pulse 60 03/13/18 08:00 Resp 18 03/13/18 08:00 BP 93/40 03/13/18 08:00 Pulse Ox 91 L 03/13/18 08:00 Intake & Output 03/12/18 03/13/18 03/13/18 18:59 06:59 18:59 Intake Total 600 120 240 Output Total 900 500 400 Balance -300 -380 -160 Weight 139 kg Intake: Oral 600 120 240 Output: Urine 900 500 400 Other: Voiding Method Bedpan Bedpan Bedpan Incontinent Incontinent Incontinent # Voids 0 1 # Bowel Movements 1 - Exam Patient's vital signs are reviewPatient's vital signs are reviewed. The patient is alert awake and in no acute distress. HEENT negative. Neck-supple no increase in JVP noted no carotid bruits noted. Chest-symmetrical. Heart-first and second heart sounds are normal. No S3 or S4 is noted. No significant murmurs are noted. Lungs bilateral good at entry is noted. No rales or rhonchi are noted Abdomen-soft. Liver and spleen are not enlarged. The bowel sounds are normal. No tenderness noted Extremities-peripheral pulses since are 2+. No significant leg edema noted. Neuro-no significant gross abnormality noted. - Labs CBC & Chem 7: 03/11/18 07:41 03/11/18 07:41 Labs: Abnormal Lab Results - Last 24 Hours (Table) 03/12/18 03/12/18 03/12/18 Range/Units 12:11 16:13 21:01 POC Glucose (mg/dL) 204 H 286 H 199 H (75-99) mg/dL 03/13/18 03/13/18 Range/Units 05:52 11:36 POC Glucose (mg/dL) 199 H 234 H (75-99) mg/dL Assessment and Plan Plan: Assessment and plan #1 symptoms of chest discomfort, atypical, mild abnormality in troponin noted. Patient did have a recent cardiac catheterization which revealed a totally occluded circumflex artery on amendable to PCI, maximal medical therapy advised #2 diabetes #3 hypertension #4 hyperlipidemia #5 prior TIA #6 wheelchair bound Plan We will continue with maximum medical therapy, including aspirin daily, Lipitor , Lasix 20 twice a day, Imdur 60 twice a day, lisinopril 10 mg daily, and metoprolol 25 mg one tablet by mouth twice a day, she may be able to be discharged back to the ECF once cleared by Dr. Yi. Adjustment to psych meds as per Dr. Fournier. We will make her a follow-up appointment in our office post discharge. DNP note has been reviewed, I agree with a documented findings and plan of care. Patient was seen and examined.
[2018-03-13 17:43] LABS: Glucose,Whole Blood 232 mg/dL (75-99)
[2018-03-13] MEDS: ATORVASTATIN 40 MG TAB PO SCH (20:06)
[2018-03-13 20:41] LABS: Glucose,Whole Blood 286 mg/dL (75-99)
[2018-03-14 05:18] LABS: Glucose,Whole Blood 178 mg/dL (75-99)
--- NOTE | 2018-03-14 07:05 | P.PAINCN ---
History of Present Illness - Reason for Consult Consult date: 03/13/18 - History of Present Illness This is a 72 years old female, who was admitted to [facility] with a chief complaint of chest pain and weakness, patient reported that she had severe low back pain and bilateral leg weakness, and this is a started after she fell at home in 02/11/2018 was she was in the bathroom, since that time patient reported that she is complaining of severe intractable low back pain with radiation to the buttocks, she is not able to ambulate because of severity of the pain, she denies any fever or chills, and there is no change in the bowel movements or urination, she is currently on Neurontin 100 mg twice a day and Ultram 50 mg 3 times a day and she continued to have severe low back pain Past Medical History Past Medical History: Asthma, Coronary Artery Disease (CAD), Cancer, Chest Pain / Angina, CVA/TIA, Diabetes Mellitus, GERD/Reflux, Hyperlipidemia, Hypertension , Memory Impairment, Pneumonia, Sleep Apnea/CPAP/BIPAP Additional Past Medical History / Comment(s): IDDM type II, TAMRA unable to tolerate CPAP, bronchitis, chronic low back pain- bulging discs, scoliosis, urinary incontinence, IBS, gastric ulcers, hiatal hernia, TIA 3 yrs roughly ago- memory impairment, uses O2 @2l continuously, hypothyroid, hemorrhoids, anemia, Cervical CA hysterectomy, sinus problems at times. History of Any Multi-Drug Resistant Organisms: MRSA Year Discovered:: 04/02/11 MDRO Source:: L chest/L lower leg/ankle Past Surgical History: Bladder Surgery, Cholecystectomy, Heart Catheterization, Heart Catheterization With Stent, Hysterectomy Additional Past Surgical History / Comment(s): PCI with a total of 5 stents per pt with last stent placed 06/29/16, partial parathyroidectomy, bilateral cataracts removed, I and D of L chest wall abscess and L ankle wound, bladder surgery with implant of stimulator system 02/2010, EGD/colonoscoy. Past Anesthesia/Blood Transfusion Reactions: No Reported Reaction Additional Past Anesthesia/Blood Transfusion Reaction / Comm: Pt states she has received blood in the past without reaction. Date of Last Stent Placement:: 06/29/16 Past Psychological History: Anxiety, Depression Additional Psychological History / Comment(s): RESIDES @ [employer] [facility] [employer] [facility]. USES WALKER OR W/C . HOME CARE FROM [facility]FOR MEDICATION ADMINISTRATION. O2 at 2L/NC ATC. Staff manages her medications. She goes to a [facility] area for meals usually- Patient currently resides at [facility] for rehab Smoking Status: Never smoker Past Alcohol Use History: None Reported Past Drug Use History: None Reported - Past Family History Brother(s) Family Medical History: Coronary Artery Disease (CAD) Father Family Medical History: Cancer, Coronary Artery Disease (CAD) Additional Family Medical History / Comment(s): Father had prostate cancer. Mother Family Medical History: Asthma, COPD Medications and Allergies Home Medications Medication Instructions Recorded Confirmed Type Citalopram Hydrobromide [CeleXA] 40 mg PO DAILY 09/20/14 03/10/18 History clonazePAM [KlonoPIN] 1 mg PO TID 09/20/14 03/10/18 History Ferrous Sulfate [Iron (65 MG 325 mg PO DAILY tab 10/08/15 03/10/18 Rx Elemental)] traMADol HCl [Ultram] 50 mg PO TID 10/19/16 03/10/18 History Lisinopril [Zestril] 20 mg PO DAILY 12/21/16 03/10/18 History Nitroglycerin Sl Tabs [Nitrostat] 0.4 mg SUBLINGUAL Q5M PRN #30 tab 12/23/1607/22 Rx Atorvastatin [Lipitor] 40 mg PO HS 01/30/17 03/10/18 History Aspirin EC [Ecotrin Low Dose] 81 mg PO DAILY 12/14/17 03/10/18 History Cholecalciferol (Vitamin D3) 2,000 unit PO DAILY 12/14/17 03/10/18 History [Vitamin D3] Gabapentin [Neurontin] 100 mg PO BID 12/14/17 03/10/18 History Insulin Glargine,Hum.rec.anlog 50 unit SQ HS 12/14/17 03/10/18 History [Lantus Solostar] Ipratropium-Albuterol Nebulize 3 ml INHALATION RT-QID PRN 12/14/17 03/10/18 History [Duoneb 0.5 mg-3 mg/3 ml Soln] Isosorbide Mononitrate ER [Imdur] 60 mg PO DAILY 12/14/17 03/10/18 History Pantoprazole Sodium [Protonix] 40 mg PO DAILY 12/14/17 03/10/18 History predniSONE 20 mg PO DAILY 12/14/17 03/10/18 History Acetaminophen [Tylenol] 325 mg PO BID 01/16/18 03/10/18 History Divalproex [Depakote] 250 mg PO DAILY 01/16/18 03/10/18 History Oxybutynin Chloride [Ditropan XL] 5 mg PO DAILY 01/16/18 03/10/18 History Cholestyramine (with Sugar) 4 gm PO TID BETWEEN MEALS packet 02/13/18 03/10/18 Rx [Questran Packet] Furosemide [Lasix] 40 mg PO BID@0800,199903/10/18 03/10/18 History Insulin Regular [humuLIN R] See Protocol SQ ACHS 03/10/18 03/10/18 History Allergies Allergy/AdvReac Type Severity Reaction Status Date / Time latex Allergy Mild Rash/Hives Verified 03/10/18 09:58 codeine Allergy Anaphylaxis Verified 03/10/18 09:58 morphine Allergy Hallucinati Verified 03/10/18 09:58 ons Penicillins Allergy Anaphylaxis Verified 03/10/18 09:58 propoxyphene napsylate Allergy Anaphylaxis Verified 03/10/18 09:58 [From Darvocet-N 100] tuberculin, purified protein Allergy Rash/Hives Verified 03/10/18 09:58 deriva [tuberculin,purif.prot.deriv.] adhesive AdvReac Mild Rash/Hives, Verified 03/10/18 09:58 W/ TAPES, CAN USE PAPER TAPE Physical Exam Vitals: Vital Signs Temp Pulse Resp BP Pulse Ox 03/14/18 04:00 98.1 F 57 L 16 124/61 98 03/14/18 00:00 98.0 F 57 L 16 130/83 98 03/13/18 23:03 69 18 03/13/18 20:00 99.0 F 69 16 149/64 99 03/13/18 16:00 97.8 F 53 L 18 109/44 100 03/13/18 12:00 97.3 F L 54 L 18 102/48 100 03/13/18 08:00 96.4 F L 60 18 93/40 91 L Intake and Output 03/13/18 03/13/18 03/14/18 14:59 22:59 06:59 Intake Total 480 120 Output Total 400 0 0 Balance 80 120 0 Intake: Oral 480 120 Output: Urine 400 0 0 Other: Voiding Method Bedpan Bedpan Bedpan Incontinent Incontinent Incontinent # Voids 1 0 2 # Bowel Movements 1 Weight 136 kg Social history : not smoker , NO ETOH , NO Illegal drugs use Review of Systems : 1- Constitutional : no chills , no fever , no night sweats , 2- Ears : no ear discharge , no change in hearing 3-Nose, Mouth ,Throat ; no bleeding gums, no sore throat , no epistaxis , 4-Cardiovascular : Report chest pain, , no orthopnea , no palpitation 5-Respiratory : Denies cough , no dyspnea , no hemoptysis 6-Gastrointestinal :, no change in bowel habits , no coffee- ground emesis , morbidly obese. 7-Genitourinary : No hematuria , no discharge , no incontinence, 8-Musculoskeletal : Not able to ambulate , report low back pain , 9- Neurological : Reports lower extremity numbness 10-Psychatric , no suicidal ideation no hallucination 11- Endocrine : no cold intolerence , no polyuria , no polydypsia , 12-Hematologic : no easy bleeding , no easy brusing , 13-Allergic / immunology : no angioedema , no wheezing ,no allergic rhinitis 14-Integumentary : no brttle nails , no change hair / nails , no foot/leg ulcers . Physical Examinations : 1-Constitutional : Cooperative , not in acute distress . 2-HEENT : nech ; supple , no Lymphadenopathy , no Thyromegaly , :eyes , no icterus, no photophobia . ENT : , normal oropharynx , no Thrush 3- Respiratory : Chest clear to auscultations Bilaterally , no wheezing . 4- Cardiovascular : regular rate and rhythem , S1 , S2 , no S3 , no S4. 5- Gastrointestinal: abdomen soft no tenderness , no organomegally . 6- Genitourinary : Defferred . 7-Integumentary : No cellulitis , no ulcers , normal skin turgor , no cyanotic . 8- neurologic : Cranial nerve II to XII intact , no focal neurological deffecit 9-psychatric : alert , oriented X 3 , appropriate affect , intact judgment and insight . 10-Lymphatic : no Lymphadenopathy. 11- musculoskeltal: Not able to ambulate, lying in bed Lumber spine moter stegnth lower extremities ,thigh and legs 4/5 Right side , 4/5 Left side deep tendon reflexes : normal Knee Jerk , normal ankle Jerk positive lumber facet Loading Test Range of motion of the lumbar spine Flexion 30 degrees, extension 10 degrees strait leg raising test , positive at 60 degree Fabere test positive RT and positive LT . Sever tenderness over the Sacroiliac joint on the R and L sides Results CBC & Chem 7: 03/11/18 07:41 03/11/18 07:41 Labs: Abnormal Lab Results - Last 24 Hours (Table) 03/13/18 03/13/18 03/13/18 Range/Units 11:36 17:14 20:40 POC Glucose (mg/dL) 234 H 232 H 286 H (75-99) mg/dL 03/14/18 Range/Units 05:14 POC Glucose (mg/dL) 178 H (75-99) mg/dL Comments: X-ray of the lumbar spine= lumbar degenerative disc disease Chest x-ray: pending Assessment and Plan Plan: Assessment and plan= severe low back pain secondary to multifactorial cause, patient has lumbar degenerative disc disease and severe bilateral sacroiliitis. Patient is morbidly obese. Patient could benefit from bilateral sacroiliac joint steroid injection. And patient could benefit from lumbar epidural steroid injection. We will schedule patient to have bilateral sacroiliac joint steroid injection, and if she continues to have pain in the future we can do lumbar epidural steroid injections Treatment plan discussed with the patient and she agreed with proceeding Time with Patient: Greater than 30 PQRS Measure Charge Sheet PQRS Narrative: Smoking Status Never smoker Do You Want the Pneumonia Vaccine Up to Date Vaccine AT THIS TIME? Blood Pressure [Right Arm] 124/61 Blood Pressure 153/60 Pain Intensity [Chest] 0 Pain Intensity [None] 0 Pain Intensity 2 Pain Scale Used Numeric (1 - 10) Scale Used Numeric (1 - 10) Home Medications: Ambulatory Orders Citalopram Hydrobromide [CeleXA] 40 mg PO DAILY 09/20/14 clonazePAM [KlonoPIN] 1 mg PO TID 09/20/14 Ferrous Sulfate [Iron (65 MG Elemental)] 325 mg PO DAILY tab 10/08/15 traMADol HCl [Ultram] 50 mg PO TID 10/19/16 Lisinopril [Zestril] 20 mg PO DAILY 12/21/16 Nitroglycerin Sl Tabs [Nitrostat] 0.4 mg SUBLINGUAL Q5M PRN #30 tab 12/23/16 Atorvastatin [Lipitor] 40 mg PO HS 01/30/17 Aspirin EC [Ecotrin Low Dose] 81 mg PO DAILY 12/14/17 Cholecalciferol (Vitamin D3) [Vitamin D3] 2,000 unit PO DAILY 12/14/17 Gabapentin [Neurontin] 100 mg PO BID 12/14/17 Insulin Glargine,Hum.rec.anlog [Lantus Solostar] 50 unit SQ HS 12/14/17 Ipratropium-Albuterol Nebulize [Duoneb 0.5 mg-3 mg/3 ml Soln] 3 ml INHALATION RT -QID PRN 12/14/17 Isosorbide Mononitrate ER [Imdur] 60 mg PO DAILY 12/14/17 Pantoprazole Sodium [Protonix] 40 mg PO DAILY 12/14/17 predniSONE 20 mg PO DAILY 12/14/17 Acetaminophen [Tylenol] 325 mg PO BID 01/16/18 Divalproex [Depakote] 250 mg PO DAILY 01/16/18 Oxybutynin Chloride [Ditropan XL] 5 mg PO DAILY 01/16/18 Cholestyramine (with Sugar) [Questran Packet] 4 gm PO TID BETWEEN MEALS packet 02/13/18 Furosemide [Lasix] 40 mg PO BID@0800,199903/10/18 Insulin Regular [humuLIN R] See Protocol SQ ACHS 03/10/18
[2018-03-14] MEDS: METOPROLOL TARTRATE 25 MG TAB PO SCH ×2 (09:26→21:14)
[2018-03-14] MEDS: INSULIN ASPART 100 UNIT/ML 1 ML 10 ML VIAL SQ SCH ×4 (11:00→21:28)
--- NOTE | 2018-03-14 11:54 | P.PN ---
Progress Note - Text Progress Note Date: 03/14/18 Patient is a pleasant 72-year-old female who is examined at bedside following evaluation for her lumbar spine. She has not had any improvements of her symptoms since being examined on 03/12/2018. She continues to have ongoing low back pain and bilateral lower extremity weakness. She states her back pain is exacerbated with any increased activities. Her back pain is controlled while sitting or laying down. She feels weakness during any increased ambulation. She resides at [facility]. She states she got stuck in her assisted living apartment on 02/11/2018. She called for assistance. At that time they attempted to help get her up and she states they dropped her onto the ground. She states her weakness has been worse since that time. She has not had any specific evaluation for her lumbar spine. X-rays lumbar spine were performed previously which showed degenerative changes. She states she also has pain of the bilateral lower extremities below the knees. She does have significant medical history which includes diabetes mellitus, hypertension, hyperlipidemia, and history of TIA. She is currently being seen and examined and treated by cardiology for atypical chest discomfort. Recent heart catheterization showed 100% occlusion of the circumflex artery. There was also mild abnormality in troponin levels. She does state she has a history of cardiac stent placement performed years ago. She also has history of neurogenic bladder and states she had leads placed to try to help control her bladder. She continues to be seen in exam by medicine. She has also been seen and examined by pain management who is planning for sacroiliac joint injection. If she does not have significant improvement of her symptoms they may try a lumbar epidural injection. Previously an MRI of the lumbar spine was ordered but patient has been unable to have this MRI performed as there is still trying to determine the implanted hardware placed for her neurogenic bladder. Physical exam: Patient is awake, alert, and oriented 3 Vital signs stable Good chest excursion with deep inspiration and expiration Examination of lumbar spine does not show evidence of significant erythema, bruising, laceration, or obvious sign of infection Generalized pain with palpation over the lumbar spine Dorsiflexion, plantarflexion, and extensor hallucis longus positive sustained bilaterally Patient is able to independently lift legs off the bed but movements are slow and weaker on the right than the left No lower extremity hyperreflexia bilaterally Straight leg test negative bilateral lower extremities No signs or symptoms of DVT; no calf pain No pain with internal and external rotation of the hips bilaterally Neurovascularly intact Pertinent studies: X-rays of the lumbar spine: Degenerative scoliosis; L3-4 severe asymmetric degenerative disc disease; L4-5 and L5-S1 near-complete disc height loss; no obvious vertebral body compression fracture; evidence of wire lead placement within the pelvis Assessment: Low back pain Lumbar and Lumbosacral degenerative disc disease Degenerative scoliosis Bilateral lower extremity weakness with difficulty with ambulation due to weakness Bilateral lower extremity leg pain below the knees Atypical chest discomfort with mild troponin abnormality History of cardiac stent placement History of diabetes mellitus History of hypertension History of hyperlipidemia History of TIA Plan: 1. Patient states she has had increased bilateral lower extremity weakness after a recent injury on 02/07/2018. She has significant low back pain as well which has been controlled with sitting and resting. Her back pain is exacerbated with increased activities including standing. She does have difficulty with ambulation due to weakness of bilateral lower extremities. Prior to her fall she states she was able to ambulate with the assistance of a walker. Recent x-ray imaging does show significant degenerative changes at the lower lumbosacral spine along with degenerative scoliosis. No obvious fracture was identified on x-ray imaging. We have ordered an MRI of the lumbar spine for further evaluation of the spinal cord, nerves, and disc spacing. Patient is currently waiting to see if she is able to have this MRI performed as they are reviewing the leads previously placed for her neurogenic bladder. We'll follow up with an appropriate plan of care depending on those MRI results. 2. Continue pain control with medications as prescribed 3. Cardiology will continue following the patient 4. Medicine will continue following the patient 5. Patient will continue to be seeing examined by pain management. Patient is currently scheduled to undergo bilateral injections in the sacroiliac joints. If her symptoms are not improving they may plan for epidural injections 6. If patient's symptoms do improve with treatment pain management, patient could be discharged from an orthopedic spine standpoint and may follow-up in the outpatient setting for further evaluation 7. Patient has been discussed in detail with Dr. Mhain Dorantes and he agrees with this plan
--- NOTE | 2018-03-14 12:14 | P.PCN ---
Date of Procedure: 03/14/18 Procedure(s) Performed: Procedure= bilateral sacral iliac joints steroid injection under fluoroscopy guidance Preoperative diagnosis= 1-sacroiliitis 2-lumbar degenerative disc disease Postoperative diagnosis=1-sacroiliitis 2-lumbar degenerative disc disease Complication = none Condition= stable Fluoroscopy time = seconds Anesthesia= local infiltration with lidocaine 1% 4 mL Indication for the procedure= patient complaining of low back pain , examination was positive for severe tenderness over the sacroiliac joints bilaterally and patient diagnosed with sacroiliitis, for this reason she was good candidate for sacroiliac joint steroid injection. Description of the procedure= procedure risk and benefits discussed with the patient, including but not limited, risk of infection and bleeding, and ALLERGIC reaction to the medication and not complete pain relief and patient agreed with the preceding patient taken to the operating room, placed in prone position or standard monitors applied to the patient then back prepped with chlorhexidine 3 times , Then under strict sterile technique, first I did the right sacroiliac joint the which was identified under fluoroscopy guidance been local infiltration of the skin and subcu interstitial with lidocaine 1% then 25-gauge Quincke Needle advanced slowly under fluoroscopy and placed in the right sacroiliac joint needle placement confirmed with AP and oblique and lateral view and after appropriate needle placement confirmed and after negative aspiration, or heme , then Ropivacaine 0.5% 3 mL, and 20 mg of Kenalog mixed together and injected in the right sacroiliac joint after negative aspiration patient tolerated the procedure well without any complication. Then the left sacroiliac joint steroid injection done under strict sterile technique local infiltration of the skin and subcu interstitial at the location of the left sacroiliac joint then a 25-gauge Quincke Needle advanced slowly under fluoroscopy time placed in the left sacroiliac joint, needle placement confirmed with AP and oblique and lateral view then after appropriate needle placement confirmed and after negative aspiration 0.5% Marcaine 3 mL and 20 mg of Kenalog injected in the left sacroiliac joint after negative aspiration patient tolerated the procedure well that any complications and she will follow up in clinic 3 weeks
--- NOTE | 2018-03-14 12:23 | FL ---
EXAMINATION TYPE: FL guided pain mgmt statistic DATE OF EXAM: 03/14/2018 HISTORY: Flouroscopy time 5 seconds of fluoroscopy provided. IMPRESSION: 1. Fluoroscopy time.
[2018-03-14 12:28] LABS: Glucose,Whole Blood 186 mg/dL (75-99)
[2018-03-14] MEDS: ASPIRIN 81 MG PO SCH (13:15)
[2018-03-14] MEDS: FUROSEMIDE 20 MG TAB PO SCH ×2 (13:15→18:07)
[2018-03-14] MEDS: LISINOPRIL 10 MG TAB PO SCH (13:15)
[2018-03-14] MEDS: GABAPENTIN 100 MG CAP PO SCH ×2 (13:15→21:14)
[2018-03-14] MEDS: ISOSORBIDE MONONITRATE ER 60 MG TAB.ER.24H PO SCH ×2 (13:15→21:14)
[2018-03-14] MEDS: PANTOPRAZOLE 40 MG TABLET PO SCH (13:15)
[2018-03-14] MEDS: CITALOPRAM HYDROBROMIDE 20 MG TAB PO SCH (13:15)
[2018-03-14] MEDS: DIVALPROEX 250 MG TABLET.DR PO SCH (13:17)
[2018-03-14] MEDS: traMADol 50 MG TAB PO PRN ×2 (13:21→21:25)
--- NOTE | 2018-03-14 15:49 | PN ---
PROGRESS NOTE SUBJECTIVE: This 72-year-old white female was admitted with atypical chest pain. She is status post she is going to get a lumbar epidural and PT/OT and discharge to rehab center in [place]. Cardiology is maximal medical treatment and is not going to do any further heart catheterization. Vital signs stable. Afebrile. CARDIOVASCULAR: S1, S2. Lungs clear. GI soft. Extremities show lower extremities 3/5 movement. She is unable to ambulate more than 2 steps. ASSESSMENT: 1. Lumbar stenosis, radiculopathy. 2. Coronary artery disease. 3. Obesity. 4. Chronic obstructive pulmonary disease, oxygen dependent. 5. Multiple medical conditions. Continue current treatments. Lumbar epidural. Rehab center in [place]. Otherwise, go back to [facility]. MMODL / IJN: [id number] /
[2018-03-14 21:14] LABS: Glucose,Whole Blood 312 mg/dL (75-99)
[2018-03-14] MEDS: ATORVASTATIN 40 MG TAB PO SCH (21:14)
[2018-03-15] MEDS: clonazePAM 1 MG TAB PO PRN ×2 (01:44→19:56)
[2018-03-15] MEDS: ISOSORBIDE MONONITRATE ER 60 MG TAB.ER.24H PO SCH ×2 (07:45→19:48)
[2018-03-15] MEDS: ASPIRIN 81 MG PO SCH (07:45)
[2018-03-15] MEDS: PANTOPRAZOLE 40 MG TABLET PO SCH (07:45)
[2018-03-15] MEDS: METOPROLOL TARTRATE 25 MG TAB PO SCH ×2 (07:45→23:42)
[2018-03-15] MEDS: GABAPENTIN 100 MG CAP PO SCH ×2 (07:45→19:48)
[2018-03-15] MEDS: LISINOPRIL 10 MG TAB PO SCH (07:45)
[2018-03-15] MEDS: INSULIN ASPART 100 UNIT/ML 1 ML 10 ML VIAL SQ SCH ×4 (07:45→23:20)
[2018-03-15] MEDS: DIVALPROEX 250 MG TABLET.DR PO SCH (07:45)
[2018-03-15] MEDS: CITALOPRAM HYDROBROMIDE 20 MG TAB PO SCH (07:46)
[2018-03-15] MEDS: FUROSEMIDE 20 MG TAB PO SCH ×2 (07:46→15:42)
[2018-03-15 07:47] LABS: Glucose,Whole Blood 243 mg/dL (75-99)
[2018-03-15] MEDS: traMADol 50 MG TAB PO PRN ×2 (11:27→19:55)
[2018-03-15 12:08] LABS: Glucose,Whole Blood 290 mg/dL (75-99)
[2018-03-15 12:37] LABS: Glucose,Whole Blood 302 mg/dL (75-99)
[2018-03-15 17:16] LABS: Glucose,Whole Blood 279 mg/dL (75-99)
[2018-03-15] MEDS: ATORVASTATIN 40 MG TAB PO SCH (19:48)
[2018-03-15 20:44] LABS: Glucose,Whole Blood 274 mg/dL (75-99)
[2018-03-16 07:02] LABS: Glucose,Whole Blood 190 mg/dL (75-99)
[2018-03-16] MEDS: ASPIRIN 81 MG PO SCH (08:09)
[2018-03-16] MEDS: ISOSORBIDE MONONITRATE ER 60 MG TAB.ER.24H PO SCH ×2 (08:09→21:05)
[2018-03-16] MEDS: CITALOPRAM HYDROBROMIDE 20 MG TAB PO SCH (08:09)
[2018-03-16] MEDS: GABAPENTIN 100 MG CAP PO SCH ×2 (08:09→21:05)
[2018-03-16] MEDS: LISINOPRIL 10 MG TAB PO SCH (08:09)
[2018-03-16] MEDS: PANTOPRAZOLE 40 MG TABLET PO SCH (08:09)
[2018-03-16] MEDS: FUROSEMIDE 20 MG TAB PO SCH ×2 (08:09→17:28)
[2018-03-16] MEDS: METOPROLOL TARTRATE 25 MG TAB PO SCH ×2 (08:09→22:52)
[2018-03-16] MEDS: INSULIN ASPART 100 UNIT/ML 1 ML 10 ML VIAL SQ SCH ×4 (08:10→21:05)
[2018-03-16] MEDS: DIVALPROEX 250 MG TABLET.DR PO SCH (08:14)
[2018-03-16 11:32] LABS: Glucose,Whole Blood 259 mg/dL (75-99)
[2018-03-16] MEDS: traMADol 50 MG TAB PO PRN ×2 (13:57→21:06)
[2018-03-16 14:21] VITALS: BMI 56.6
[2018-03-16 16:38] LABS: Glucose,Whole Blood 194 mg/dL (75-99)
[2018-03-16 20:46] LABS: Glucose,Whole Blood 252 mg/dL (75-99)
[2018-03-16] MEDS: ATORVASTATIN 40 MG TAB PO SCH (21:05)
[2018-03-17 07:42] LABS: Glucose,Whole Blood 248 mg/dL (75-99)
[2018-03-17] MEDS: INSULIN ASPART 100 UNIT/ML 1 ML 10 ML VIAL SQ SCH ×4 (08:39→20:56)
[2018-03-17] MEDS: LISINOPRIL 10 MG TAB PO SCH (08:41)
[2018-03-17] MEDS: DIVALPROEX 250 MG TABLET.DR PO SCH (08:41)
[2018-03-17] MEDS: ASPIRIN 81 MG PO SCH (08:41)
[2018-03-17] MEDS: CITALOPRAM HYDROBROMIDE 20 MG TAB PO SCH (08:41)
[2018-03-17] MEDS: METOPROLOL TARTRATE 25 MG TAB PO SCH ×2 (08:41→19:52)
[2018-03-17] MEDS: GABAPENTIN 100 MG CAP PO SCH ×2 (08:42→19:52)
[2018-03-17] MEDS: FUROSEMIDE 20 MG TAB PO SCH ×2 (08:42→15:27)
[2018-03-17] MEDS: ISOSORBIDE MONONITRATE ER 60 MG TAB.ER.24H PO SCH ×2 (08:42→19:52)
[2018-03-17] MEDS: PANTOPRAZOLE 40 MG TABLET PO SCH (08:42)
--- NOTE | 2018-03-17 11:33 | PN ---
PROGRESS NOTE DATE OF SERVICE: 03/16/2018 SUBJECTIVE: A 72-year-old white female admitted with atypical chest pain. She is status post coronary artery disease, medically managed. She had her epidural shot in her lumbar spine. She is awaiting rehab placement. She does not want to go to [facility], wants to go to [facility]. Waiting for approval from insurance company. INTEGUMENT: Soft. ENDOCRINE: BMI is over 50. CARDIOVASCULAR: S1, S2. LUNGS: Clear. ASSESSMENT: 1. Atypical chest pain, coronary artery disease. 2. Generalized debility due to lumbar disc disease, status post epidural injection. 3. Multiple medical conditions including coronary artery disease and chronic obstructive pulmonary disease requiring 2 L of oxygen. She needs PT, OT. She wants to go to [facility]. Awaiting discharge approval. TYLER / FARSHAD: [id number] /
[2018-03-17 12:26] LABS: Glucose,Whole Blood 284 mg/dL (75-99)
[2018-03-17 16:52] LABS: Glucose,Whole Blood 333 mg/dL (75-99)
[2018-03-17] MEDS: ATORVASTATIN 40 MG TAB PO SCH (19:52)
[2018-03-17] MEDS: traMADol 50 MG TAB PO PRN (19:52)
[2018-03-17 20:37] LABS: Glucose,Whole Blood 358 mg/dL (75-99)
[2018-03-17] MEDS: INSULIN DETEMIR 100 UNIT/ML 10 ML VIAL SQ SCH (20:57)
--- NOTE | 2018-03-17 21:26 | PN ---
PROGRESS NOTE SUBJECTIVE: 72-year-old white female admitted with chest pain, angina. She is maximized from medical standpoint for cardiac standpoint. Awaiting rehab placement. Status post lumbar epidural. She is not able to ambulate, just a couple steps with ambulation. Today, she got up on the side of bed, sitting. CARDIOVASCULAR: S1-S2. Lungs clear. GI soft. Hematology: Negative Homans. ASSESSMENT: 1. Coronary artery disease. 2. Lumbar radiculopathies. 3. End-stage chronic obstructive pulmonary disease on 2 L oxygen. 4. Morbid obesity. 5. Hypertension. Please see further orders. PT, OT will be needed. She wants to go to [facility] or [facility]. Awaiting discharge planning. MMODL / IJN: [id number] /
[2018-03-17] MEDS: clonazePAM 1 MG TAB PO PRN (23:52)
[2018-03-18 07:26] LABS: Glucose,Whole Blood 250 mg/dL (75-99)
[2018-03-18] MEDS: INSULIN ASPART 100 UNIT/ML 1 ML 10 ML VIAL SQ SCH ×4 (08:41→20:59)
[2018-03-18] MEDS: CHOLESTYRAMINE (WITH SUGAR) 4 GM PACKET PO SCH ×3 (08:42→15:26)
[2018-03-18] MEDS: DIVALPROEX 250 MG TABLET.DR PO SCH (08:42)
[2018-03-18] MEDS: CITALOPRAM HYDROBROMIDE 20 MG TAB PO SCH (08:42)
[2018-03-18] MEDS: PANTOPRAZOLE 40 MG TABLET PO SCH (08:43)
[2018-03-18] MEDS: ASPIRIN 81 MG PO SCH (08:43)
[2018-03-18] MEDS: FUROSEMIDE 20 MG TAB PO SCH ×2 (08:43→15:25)
[2018-03-18] MEDS: OXYBUTYNIN XL 5 MG TAB.ER.24 PO SCH (08:43)
[2018-03-18] MEDS: FERROUS SULFATE 325 MG TAB PO SCH (08:43)
[2018-03-18] MEDS: CHOLECALCIFEROL 1,000 UNIT TAB PO SCH (08:43)
[2018-03-18] MEDS: GABAPENTIN 100 MG CAP PO SCH ×2 (08:54→20:59)
[2018-03-18] MEDS: traMADol 50 MG TAB PO PRN ×2 (08:54→15:25)
[2018-03-18] MEDS: METOPROLOL TARTRATE 25 MG TAB PO SCH ×2 (08:58→20:59)
[2018-03-18] MEDS: ISOSORBIDE MONONITRATE ER 60 MG TAB.ER.24H PO SCH ×2 (08:59→20:59)
[2018-03-18] MEDS: LISINOPRIL 10 MG TAB PO SCH (08:59)
[2018-03-18 12:13] LABS: Glucose,Whole Blood 383 mg/dL (75-99)
--- NOTE | 2018-03-18 16:58 | PN ---
PROGRESS NOTE DATE OF SERVICE: 03/18/2018 She has been hemodynamically stable. She does not have any chest pain, but is unable to walk because of weakness. On physical examination, her blood pressure is 115/60, respiratory rate of 18, pulse rate of 56, temperature 98.9, O2 saturation on 2 L by nasal cannula is 99%. HEENT is unremarkable. Chest is clear. Cardiovascular system reveals an S1, S2. Abdomen is soft. There is no edema. Labs and medications were reviewed. IMPRESSION: 1. Coronary artery disease with lumbar radiculopathy. 2. Chronic obstructive pulmonary disease with possible obesity hypoventilation. 3. Morbid obesity. 4. Hypertension. We will have Dr. Albert Roque from Physical Medicine and rehab further evaluate her. Depending on how she does, we should make further changes to her care. MMODL / IJN: [id number] /
[2018-03-18 17:39] LABS: Glucose,Whole Blood 223 mg/dL (75-99)
[2018-03-18 20:56] LABS: Glucose,Whole Blood 172 mg/dL (75-99)
[2018-03-18] MEDS: clonazePAM 1 MG TAB PO PRN (20:59)
[2018-03-18] MEDS: ATORVASTATIN 40 MG TAB PO SCH (20:59)
[2018-03-18] MEDS: INSULIN DETEMIR 100 UNIT/ML 10 ML VIAL SQ SCH (20:59)
[2018-03-18 23:58] VITALS: RESP 16
[2018-03-19 07:14] LABS: Glucose,Whole Blood 100 mg/dL (75-99)
--- NOTE | 2018-03-19 07:28 | P.CONS ---
History of Present Illness - Chief Complaint Walking difficulty - History of Present Illness I had the opportunity see patient for inpatient rehab consultation with regard to walking difficulty. She was admitted to [facility] March 10 with chest pain. Also report of 1 history of fall in bathroom. Seen in consultation by Dr. Dorantes for lumbar DDD. Some of Dr. Maria for pain management who performed lumbar VAMSI. Also followed by Dr. ANGEL Womack. Lumbar x-ray demonstrates moderate DDD index or scoliosis. Chest x-ray negative. PT reports two-person maximal assistance for bed mobility minimal assistance to transfer and one step. OT reports supervision for upper dressing and maximal assistance for lower dressing and moderate assistance for bathing. Toileting not assessed. 2 person maximal assistance for functional mobility. Previous functional history as elicited from patient: 73-year-old right-handed white female who is and lives in senior apartment alone. History provided to meals. Patient retired. Describes independent with own laundry, sitdown shower and gait with [address]. Does not smoke or drink. Dr. Chris Yi regular doctor. Family history both parents with cancer. Review of Systems Review of systems: Patient seems to be an inaccurate historian ENT: Denies sneezes or discharge. Eyes: Denies discharge or photophobia. Cardiac: Cardiology following for chest discomfort. Pulmonary: Denies cough or shortness of breath. Breast: Denies discharge or lumps. Gastrointestinal: Denies nausea, emesis, constipation, diarrhea. Genitourinary: Denies discharge or frequency. Musculoskeletal: Denies any pain including back but is being treated for back pain. Neurologic: Denies motor or sensory change. Endocrine: Denies shakes or sweats. Oncology: Denies cancers. Dermatologic: Denies rash, itching, pruritus. ALLERGY/immunology: Denies sneezes, rashes. Past Medical History Past Medical History: Asthma, Coronary Artery Disease (CAD), Cancer, Chest Pain / Angina, CVA/TIA, Diabetes Mellitus, GERD/Reflux, Hyperlipidemia, Hypertension , Memory Impairment, Pneumonia, Sleep Apnea/CPAP/BIPAP Additional Past Medical History / Comment(s): IDDM type II, TAMRA unable to tolerate CPAP, bronchitis, chronic low back pain- bulging discs, scoliosis, urinary incontinence, IBS, gastric ulcers, hiatal hernia, TIA 3 yrs roughly ago- memory impairment, uses O2 @2l continuously, hypothyroid, hemorrhoids, anemia, Cervical CA hysterectomy, sinus problems at times. History of Any Multi-Drug Resistant Organisms: MRSA Year Discovered:: 04/02/11 MDRO Source:: L chest/L lower leg/ankle Past Surgical History: Bladder Surgery, Cholecystectomy, Heart Catheterization, Heart Catheterization With Stent, Hysterectomy Additional Past Surgical History / Comment(s): PCI with a total of 5 stents per pt with last stent placed 06/29/16, partial parathyroidectomy, bilateral cataracts removed, I and D of L chest wall abscess and L ankle wound, bladder surgery with implant of stimulator system 02/2010, EGD/colonoscoy. Past Anesthesia/Blood Transfusion Reactions: No Reported Reaction Additional Past Anesthesia/Blood Transfusion Reaction / Comm: Pt states she has received blood in the past without reaction. Date of Last Stent Placement:: 06/29/16 Past Psychological History: Anxiety, Depression Additional Psychological History / Comment(s): [facility]ID[facility]. USES WALKER OR W/C . HOME CARE FROM [facility]FOR MEDICATION ADMINISTRATION. O2 at 2L/NC ATC. Staff manages her medications. She goes to a [address] area for meals usually- Patient currently resides at [facility] for rehab Smoking Status: Never smoker Past Alcohol Use History: None Reported Past Drug Use History: None Reported - Past Family History Brother(s) Family Medical History: Coronary Artery Disease (CAD) Father Family Medical History: Cancer, Coronary Artery Disease (CAD) Additional Family Medical History / Comment(s): Father had prostate cancer. Mother Family Medical History: Asthma, COPD Medications and Allergies Home Medications Medication Instructions Recorded Confirmed Type Citalopram Hydrobromide [CeleXA] 40 mg PO DAILY 09/20/14 03/10/18 History clonazePAM [KlonoPIN] 1 mg PO TID 09/20/14 03/10/18 History Ferrous Sulfate [Iron (65 MG 325 mg PO DAILY tab 10/08/15 03/10/18 Rx Elemental)] traMADol HCl [Ultram] 50 mg PO TID 10/19/16 03/10/18 History Lisinopril [Zestril] 20 mg PO DAILY 12/21/16 03/10/18 History Nitroglycerin Sl Tabs [Nitrostat] 0.4 mg SUBLINGUAL Q5M PRN #30 tab 12/23/1607/22 Rx Atorvastatin [Lipitor] 40 mg PO HS 01/30/17 03/10/18 History Aspirin EC [Ecotrin Low Dose] 81 mg PO DAILY 12/14/17 03/10/18 History Cholecalciferol (Vitamin D3) 2,000 unit PO DAILY 12/14/17 03/10/18 History [Vitamin D3] Gabapentin [Neurontin] 100 mg PO BID 12/14/17 03/10/18 History Insulin Glargine,Hum.rec.anlog 50 unit SQ HS 12/14/17 03/10/18 History [Lantus Solostar] Ipratropium-Albuterol Nebulize 3 ml INHALATION RT-QID PRN 12/14/17 03/10/18 History [Duoneb 0.5 mg-3 mg/3 ml Soln] Isosorbide Mononitrate ER [Imdur] 60 mg PO DAILY 12/14/17 03/10/18 History Pantoprazole Sodium [Protonix] 40 mg PO DAILY 12/14/17 03/10/18 History predniSONE 20 mg PO DAILY 12/14/17 03/10/18 History Acetaminophen [Tylenol] 325 mg PO BID 01/16/18 03/10/18 History Divalproex [Depakote] 250 mg PO DAILY 01/16/18 03/10/18 History Oxybutynin Chloride [Ditropan XL] 5 mg PO DAILY 01/16/18 03/10/18 History Cholestyramine (with Sugar) 4 gm PO TID BETWEEN MEALS packet 02/13/18 03/10/18 Rx [Questran Packet] Furosemide [Lasix] 40 mg PO BID@0800,199903/10/18 03/10/18 History Insulin Regular [humuLIN R] See Protocol SQ ACHS 03/10/18 03/10/18 History Allergies Allergy/AdvReac Type Severity Reaction Status Date / Time latex Allergy Mild Rash/Hives Verified 03/10/18 09:58 codeine Allergy Anaphylaxis Verified 03/10/18 09:58 morphine Allergy Hallucinati Verified 03/10/18 09:58 ons Penicillins Allergy Anaphylaxis Verified 03/10/18 09:58 propoxyphene napsylate Allergy Anaphylaxis Verified 03/10/18 09:58 [From Darvocet-N 100] tuberculin, purified protein Allergy Rash/Hives Verified 03/10/18 09:58 deriva [tuberculin,purif.prot.deriv.] adhesive AdvReac Mild Rash/Hives, Verified 03/10/18 09:58 W/ TAPES, CAN USE PAPER TAPE Physical Exam Vitals: Vital Signs Temp Pulse Resp BP Pulse Ox 03/19/18 06:23 98.2 F 59 L 16 118/62 97 03/18/18 23:00 98.0 F 57 L 16 110/54 96 03/18/18 13:41 98.9 F 56 L 18 115/60 99 03/18/18 08:57 70 113/61 99 Intake and Output 03/18/18 03/19/18 03/19/18 22:59 06:59 14:59 Output Total 1800 800 Balance -1800 -800 Output: Urine 1800 800 Skin: Good color, texture, turgor. General: Morbidly obese and comfortable appearance, at least one not moving. Head: Normocephalic, atraumatic. Eyes: Symmetric. Pupils equal round. Ears: Symmetric. Hearing within normal limits. Mouth: Clear. Neck: Supple. Carotid without bruit. Cardiac: Regular rate and rhythm. Lungs: Clear anteriorly and posteriorly. Abdomen: Soft active nontender, obese. Extremities: Normal tone. Obese. Neurological: Mental status: Alert, cooperative, pleasant. Cranial nerves: Symmetric facial tone and trapezius. Motor: Can actively elevate all 4 limbs off of bed. Sensation: Intact throughout. DTRs: Symmetric and equal throughout. Mobility: Requires two-person assistance for bed mobility. Results CBC & Chem 7: 03/11/18 07:41 03/11/18 07:41 Labs: Abnormal Lab Results - Last 24 Hours (Table) 03/18/18 03/18/18 03/18/18 Range/Units 07:15 12:03 17:23 POC Glucose (mg/dL) 250 H 383 H 223 H (75-99) mg/dL 03/18/18 03/19/18 Range/Units 20:50 07:05 POC Glucose (mg/dL) 172 H 100 H (75-99) mg/dL Assessment and Plan (1) Chest pain Current Visit: Yes Status: Acute Code(s): R07.9 - CHEST PAIN, UNSPECIFIED SNOMED Code(s): 96110539 (2) Acute metabolic encephalopathy Current Visit: No Status: Acute Code(s): G93.41 - METABOLIC ENCEPHALOPATHY SNOMED Code(s): 69953595 (3) Acute on chronic renal failure Current Visit: No Status: Acute Code(s): N17.9 - ACUTE KIDNEY FAILURE, UNSPECIFIED; N18.9 - CHRONIC KIDNEY DISEASE, UNSPECIFIED SNOMED Code(s): 953992748 Plan: Impression: 1. Walking difficulty. 2. Lumbar DDD. 3. Morbid obesity. 4. Risk of fall. 5. Acute on chronic renal failure. 6. Acute metabolic encephalopathy. 7. Coronary artery disease and history of angina. 8. Hypertension. 9. Disability. 10. Diabetes. 11. Sleep apnea with CPAP. 12. Asthma. 13. History of stroke and memory impairment. Comments and plan: PT and OT ongoing. Patient currently two-person assistance. Must determine the patient's discharge plan is and thus discharge goals for possible return to community for possible inpatient rehabilitation.
[2018-03-19] MEDS: INSULIN ASPART 100 UNIT/ML 1 ML 10 ML VIAL SQ SCH ×2 (07:58→13:24)
[2018-03-19] MEDS: PANTOPRAZOLE 40 MG TABLET PO SCH (07:59)
[2018-03-19] MEDS: GABAPENTIN 100 MG CAP PO SCH (07:59)
[2018-03-19] MEDS: DIVALPROEX 250 MG TABLET.DR PO SCH (07:59)
[2018-03-19] MEDS: METOPROLOL TARTRATE 25 MG TAB PO SCH (07:59)
[2018-03-19] MEDS: CITALOPRAM HYDROBROMIDE 20 MG TAB PO SCH (07:59)
[2018-03-19] MEDS: FUROSEMIDE 20 MG TAB PO SCH (07:59)
[2018-03-19] MEDS: ASPIRIN 81 MG PO SCH (07:59)
[2018-03-19] MEDS: OXYBUTYNIN XL 5 MG TAB.ER.24 PO SCH (07:59)
[2018-03-19] MEDS: ISOSORBIDE MONONITRATE ER 60 MG TAB.ER.24H PO SCH (07:59)
[2018-03-19] MEDS: CHOLECALCIFEROL 1,000 UNIT TAB PO SCH (07:59)
[2018-03-19] MEDS: FERROUS SULFATE 325 MG TAB PO SCH (07:59)
[2018-03-19] MEDS: LISINOPRIL 10 MG TAB PO SCH (07:59)
[2018-03-19] MEDS: traMADol 50 MG TAB PO PRN (08:02)
[2018-03-19] MEDS: CHOLESTYRAMINE (WITH SUGAR) 4 GM PACKET PO SCH (09:02)
--- NOTE | 2018-03-19 11:24 | CDI ---
Documentation Clarification Form Date: 03/19/2018 10:57:10 AM From: Marci Beckett RN, CCDS Admit Date: 03/11/2018 7:40:00 AM Patient Name: Carla Garvin Visit Number: [id number] Discharge Date: ATTENTION: The Clinical Documentation Specialists (CDI) and [facility] Coding Staff appreciate your assistance in clarifying documentation. Please respond to the clarification below the line at the bottom and electronically sign. The CDI & [facility] Coding staff will review the response and follow-up if needed. Please note: Queries are made part of the Legal Health Record. If you have any questions, please contact the author of this message via ITS. Dr. Chris Yi The patient presented with intermittent left-sided chest pain associated with mild shortness of breath. History/Risk Factors: Coronary Artery Disease, Hypertension, Sleep Apnea/CPAP/ BIPAP, Asthma, CVA, TIA, Diabetes Mellitus. COPD, Home oxygen: 2/L NC continuously Clinical Indicators: Patient with ongoing history of using O2 continuously, with history of COPD and asthma. Vital signs: 141/114 56 29 Pulse oximetry: 83% RA, 99 % 2/L Treatment: Monitor O2 Sat's Breathing tx Duoneb inhalation PRN, In your professional opinion, can you please clarify if these findings signify one of the following conditions? Chronic Hypoxic Respiratory Failure (pO2 <60 mm Hg or SpO2 <91% on room air) Other Diagnosis, please specify Unable to determine (Last Revision: June 2017) MTDD
[2018-03-19 12:16] LABS: Glucose,Whole Blood 283 mg/dL (75-99)
--- NOTE | 2018-03-19 12:34 | DS ---
DISCHARGE SUMMARY DISCHARGE MEDICATION: 1. Aspirin 81 mg daily. 2. Lipitor 40 mg daily. 3. Vitamin D 2000 units daily. 4. Cholestyramine 4 grams t.i.d. 5. Citalopram 40 mg daily. 6. Klonopin 1 mg t.i.d. 7. Depakote 250 p.o. daily. 8. Iron sulfate 325 daily. 9. Lasix 20 mg b.i.d. 10.Neurontin 100 mg b.i.d. 11.NovoLog before meals and at bedtime. 12.Levemir 50 units q.h.s. 13.DuoNeb updrafts 3 mL q.i.d. 14.Imdur 60 mg b.i.d. 15.Zestril 10 mg daily. 16.Metoprolol 25 b.i.d. 17.Oxybutynin 5 mg daily. 18.Protonix 40 mg daily. 19.Tramadol 50 t.i.d. p.r.n. CONDITION: Stable. PROGNOSIS: Guarded. Ambulate as tolerated. HOSPITAL COURSE OF EVENTS: This is a white female who came in the hospital with atypical chest pain, status post stent, trying to put a stent in with cardiac catheterization which could not be done. The patient was treated maximally for coronary artery disease and also received a lumbar epidural as she is unable to ambulate. Due to poor ambulation, she will need to go to rehab center for further treatment to get her ambulation done status post lumbar epidural. She is cleared from Cardiology. Discharged to follow up with Dr. Chris Yi at the rehab center. MMODL / LILLIANN: [id number] /
[2018-03-19 15:30] VITALS: BP 107/57; PULSE 53; TEMP 97.9
== END 2018-03-19 15:19 | DRG 302 ==
LOC: EC 01:51 → 1SOBS 04:31 → 3SCARD 18:40 → OBSVTOIN 03-11 07:40 → UNDODISIN 03-14 16:33 → 4MS4W 03-14 17:16
PROVIDERS: ADMIT Family Medicine; ATTEND Family Medicine
PROC: 3E0U3BZ Introduction of Anesthetic Agent into Joints, Percutaneous Approach (ICD-10-PCS; 2018-03-14)
PROC: 3E0U33Z Introduction of Anti-inflammatory into Joints, Percutaneous Approach (ICD-10-PCS; principal; 2018-03-14 11:00)
DX: I25.110 Atherosclerotic heart disease of native coronary artery with unstable angina pectoris (principal); G93.41 Metabolic encephalopathy; Z68.43 Body mass index [BMI] 50.0-59.9, adult; E87.1 Hypo-osmolality and hyponatremia; N17.9 Acute kidney failure, unspecified; I25.82 Chronic total occlusion of coronary artery; M51.16 Intervertebral disc disorders with radiculopathy, lumbar region; D64.9 Anemia, unspecified; E89.2 Postprocedural hypoparathyroidism; E03.9 Hypothyroidism, unspecified; E11.22 Type 2 diabetes mellitus with diabetic chronic kidney disease; E66.01 Morbid (severe) obesity due to excess calories; E78.5 Hyperlipidemia, unspecified; E87.5 Hyperkalemia; G47.33 Obstructive sleep apnea (adult) (pediatric); I12.9 Hypertensive chronic kidney disease with stage 1 through stage 4 chronic kidney disease, or unspecified chronic kidney disease; N18.9 Chronic kidney disease, unspecified; J44.9 Chronic obstructive pulmonary disease, unspecified; K21.9 Gastro-esophageal reflux disease without esophagitis; M41.80 Other forms of scoliosis, site unspecified; M46.1 Sacroiliitis, not elsewhere classified; M48.061 Spinal stenosis, lumbar region without neurogenic claudication; M51.17 Intervertebral disc disorders with radiculopathy, lumbosacral region; N31.9 Neuromuscular dysfunction of bladder, unspecified; Z96.0 Presence of urogenital implants; Z79.4 Long term (current) use of insulin; Z79.82 Long term (current) use of aspirin; Z79.899 Other long term (current) drug therapy; Z79.52 Long term (current) use of systemic steroids; Z80.42 Family history of malignant neoplasm of prostate; Z82.49 Family history of ischemic heart disease and other diseases of the circulatory system; Z82.5 Family history of asthma and other chronic lower respiratory diseases; Z85.41 Personal history of malignant neoplasm of cervix uteri; I69.311 Memory deficit following cerebral infarction; Z90.710 Acquired absence of both cervix and uterus; Z91.81 History of falling; Z95.5 Presence of coronary angioplasty implant and graft; Z99.3 Dependence on wheelchair; Z99.81 Dependence on supplemental oxygen; F41.9 Anxiety disorder, unspecified; F32.9 Major depressive disorder, single episode, unspecified; Z87.01 Personal history of pneumonia (recurrent); Z98.42 Cataract extraction status, left eye; Z98.41 Cataract extraction status, right eye; Z88.5 Allergy status to narcotic agent; Z88.0 Allergy status to penicillin; Z88.8 Allergy status to other drugs, medicaments and biological substances; Z91.040 Latex allergy status
CPT/HCPCS: 36415; 71046; 72100; 80053; 80061; 82550; 82553; 83036; 83735; 83880; 84484; 85025; 85610; 85730; 93005; 93306; 99285

== ENCOUNTER 2018-06-03 13:30 | Inpatient (IN) | payer MEDICARE ==
[2018-06-03] MEDS ORDERED: SODIUM CHLORIDE 0.9% 1,000 ML IV STA ×2 (14:17)
--- NOTE | 2018-06-03 15:12 | ED ---
Fall HPI <Michele Santamaria - Last Filed: 06/03/18 17:02> - General Source: EMS, RN notes reviewed, old records reviewed Mode of arrival: EMS <Marlyn Roberts - Last Filed: 06/03/18 17:11> - General Chief Complaint: Fall Stated Complaint: Fall Time Seen by Provider: 06/03/18 13:46 - History of Present Illness Initial Comments: Patient is a 73-year-old female currently living on her own presents emergency Department after falling out of her electric chair. Patient reports that she was sitting her recliner [id number] chair. Patient states that she Pressed the button and sewed continue to go up and she was standing. She slid out of her chair and hit her head. Patient states she laid on the floor for 30 minutes. Patient states that she is having a difficult time taking care of herself. She does have a age who comes in the morning to help her get dressed and places her in her chair. Patient is not ambulatory. She uses a [employer] lift. Patient is quite tearful on examination. She states she's having a difficult time with staying where she lives due to lack of money. Patient states that she is concerned she cannot take care of herself. Patient denies any recent fever, chills, shortness of breath, chest pain, back pain, abdominal pain, nausea vomiting, numbness or tingling, dysuria or hematuria, constipation or diarrhea, headaches or visual changes, or any other current symptoms (Marlyn Roberts) - Related Data Home Medications Medication Instructions Recorded Confirmed Citalopram Hydrobromide [CeleXA] 40 mg PO DAILY 09/20/14 03/10/18 clonazePAM [KlonoPIN] 1 mg PO TID 09/20/14 03/10/18 traMADol HCl [Ultram] 50 mg PO TID 10/19/16 03/10/18 Atorvastatin [Lipitor] 40 mg PO HS 01/30/17 03/10/18 Aspirin EC [Ecotrin Low Dose] 81 mg PO DAILY 12/14/17 03/10/18 Gabapentin [Neurontin] 100 mg PO BID 12/14/17 03/10/18 Ipratropium-Albuterol Nebulize 3 ml INHALATION RT-QID PRN 12/14/17 03/10/18 [Duoneb 0.5 mg-3 mg/3 ml Soln] Isosorbide Mononitrate ER [Imdur] 60 mg PO DAILY 12/14/17 03/10/18 Acetaminophen [Tylenol] 325 mg PO BID 01/16/18 03/10/18 Divalproex [Depakote] 250 mg PO DAILY 01/16/18 03/10/18 Previous Rx's Medication Instructions Recorded Ferrous Sulfate [Iron (65 MG 325 mg PO DAILY tab 10/08/15 Elemental)] Nitroglycerin Sl Tabs [Nitrostat] 0.4 mg SUBLINGUAL Q5M PRN #30 tab 12/23/16 Cholestyramine (with Sugar) 4 gm PO TID BETWEEN MEALS packet 02/13/18 [Questran Packet] Cholecalciferol [Vitamin D3] 2,000 unit PO DAILY tab 03/19/18 Furosemide [Lasix] 20 mg PO BID@0900,1600 tab 03/19/18 INSULIN ASPART (NovoLOG) [NovoLOG 0 unit SQ ACHS vial 03/19/18 (formulary)] Insulin Detemir (Levemir) [Levemir] 50 unit SQ HS syr 03/19/18 Lisinopril [Zestril] 10 mg PO DAILY tab 03/19/18 Metoprolol Tartrate [Lopressor] 25 mg PO BID tab 03/19/18 Oxybutynin Xl [Ditropan XL] 5 mg PO DAILY tab.er.24 03/19/18 Pantoprazole [Protonix] 40 mg PO DAILY@0730 tablet. 03/19/18 Allergies Allergy/AdvReac Type Severity Reaction Status Date / Time latex Allergy Mild Rash/Hives Verified 06/03/18 13:32 codeine Allergy Anaphylaxis Verified 06/03/18 13:32 morphine Allergy Hallucinati Verified 06/03/18 13:32 ons Penicillins Allergy Anaphylaxis Verified 06/03/18 13:32 propoxyphene napsylate Allergy Anaphylaxis Verified 06/03/18 13:32 [From Darvocet-N 100] tuberculin, purified protein Allergy Rash/Hives Verified 06/03/18 13:32 deriva [tuberculin,purif.prot.deriv.] adhesive AdvReac Mild Rash/Hives, Verified 06/03/18 13:32 W/ TAPES, CAN USE PAPER TAPE Review of Systems ROS Other: All systems not noted in ROS Statement are negative. <Michele Santamaria Leo - Last Filed: 06/03/18 17:02> ROS Other: All systems not noted in ROS Statement are negative. <Marlyn Roberts - Last Filed: 06/03/18 17:11> ROS Statement: Those systems with pertinent positive or pertinent negative responses have been documented in the HPI. Past Medical History Past Medical History: Asthma, Coronary Artery Disease (CAD), Cancer, Chest Pain / Angina, CVA/TIA, Diabetes Mellitus, GERD/Reflux, Hyperlipidemia, Hypertension, Memory Impairment, Pneumonia, Sleep Apnea/CPAP/BIPAP Additional Past Medical History / Comment(s): IDDM type II, TAMRA unable to tolerate CPAP, bronchitis, chronic low back pain- bulging discs, scoliosis, urinary incontinence, IBS, gastric ulcers, hiatal hernia, TIA 3 yrs roughly ago- memory impairment, uses O2 @2l continuously, hypothyroid, hemorrhoids, anemia, Cervical CA hysterectomy, sinus problems at times. History of Any Multi-Drug Resistant Organisms: MRSA Date of last positivie culture/infection: 04/02/11 MDRO Source:: L chest/L lower leg/ankle Past Surgical History: Bladder Surgery, Cholecystectomy, Heart Catheterization, Heart Catheterization With Stent, Hysterectomy Additional Past Surgical History / Comment(s): PCI with a total of 5 stents per pt with last stent placed 06/29/16, partial parathyroidectomy, bilateral cataracts removed, I and D of L chest wall abscess and L ankle wound, bladder surgery with implant of stimulator system 02/2010, EGD/colonoscoy. Past Anesthesia/Blood Transfusion Reactions: No Reported Reaction Additional Past Anesthesia/Blood Transfusion Reaction / Comment(s): Pt states she has received blood in the past without reaction. Date of Last Stent Placement:: 06/29/16 Past Psychological History: Anxiety, Depression Smoking Status: Never smoker Past Alcohol Use History: None Reported Past Drug Use History: None Reported - Past Family History Brother(s) Family Medical History: Coronary Artery Disease (CAD) Father Family Medical History: Cancer, Coronary Artery Disease (CAD) Additional Family Medical History / Comment(s): Father had prostate cancer. Mother Family Medical History: Asthma, COPD <Marlyn Roberts - Last Filed: 06/03/18 17:11> General Exam Limitations: physical limitation General appearance: alert, in no apparent distress Head exam: Present: atraumatic, normocephalic, normal inspection Eye exam: Present: normal appearance, PERRL, EOMI. Absent: scleral icterus, conjunctival injection, periorbital swelling ENT exam: Present: normal exam, mucous membranes moist Neck exam: Present: normal inspection. Absent: tenderness, meningismus, lymphadenopathy Respiratory exam: Present: normal lung sounds bilaterally. Absent: respiratory distress, wheezes, rales, rhonchi, stridor Cardiovascular Exam: Present: regular rate, normal rhythm, normal heart sounds. Absent: systolic murmur, diastolic murmur, rubs, gallop, clicks GI/Abdominal exam: Present: soft, normal bowel sounds. Absent: distended, tenderness, guarding, rebound, rigid Extremities exam: Present: normal inspection, full ROM, normal capillary refill. Absent: tenderness, pedal edema, joint swelling, calf tenderness Back exam: Present: normal inspection Neurological exam: Present: alert, oriented X3, CN II-XII intact Psychiatric exam: Present: normal affect, normal mood Skin exam: Present: warm, dry, intact, normal color. Absent: rash <Marlyn Roberts - Last Filed: 06/03/18 17:11> - General Exam Comments Initial Comments: 73-year-old female. Patient is morbidly obese. (Marlyn Roberts) Course Vital Signs 06/03/18 06/03/18 06/03/18 13:32 16:36 16:48 Temperature 97.5 F L Pulse Rate 50 L 50 L 55 L Respiratory 20 Rate Blood Pressure 118/60 O2 Sat by Pulse 100 Oximetry Medical Decision Making - Lab Data Result diagrams: 06/03/18 15:19 06/03/18 15:13 <Michele Santamaria - Last Filed: 06/03/18 17:02> - Lab Data Result diagrams: 06/03/18 15:19 06/03/18 15:13 - Radiology Data Radiology results: report reviewed <Marlyn Roberts - Last Filed: 06/03/18 17:11> - Medical Decision Making 73 year female with minor fall and head injury. Patient noted to be bradycardic, laboratory studies were obtained as well as EKG. Patient was very difficult IV start and there was delay in initial laboratory testing. She was found to be hyperkalemic with a potassium 6.9. She was treated for hyperkalemia in the emergency department after IV was established. Case was discussed with the admitting physician Dr. Yi, case discussed with the record librarian Dr. Cunha. Patient will be kept in the ICU for close monitoring. Nephrology and cardiology placed on consult. (Michele Santamaria) 73-year-old female who fell out of her recliner today weight on the ground for 30 minutes. She complained of a minor head injury. At this time Patient was also quite tearful on exam. Concerned she is unable to care for self. Patient was a difficult IV start. Eventually labwork was obtained. Patient was found be hyperkalemic. EKG shows bradycardia. She denies any chest pain at this t helen. Patient eventually had IV established by Dr. Santamaria. And treatment for hyperkalemia including albuterol, Kayexalate, calcium was initiated. Patient will be admitted at this time for ICU with record librarian Dr. Bernard's. Patient agrees to admission. I did call patient's son and informed him of treatment plan. (Marlyn Roberts) - Lab Data Lab Results 06/03/18 06/03/18 06/03/18 Range/Units 15:13 15:13 15:13 WBC (3.8-10.6) k/uL RBC (3.80-5.40) m/uL Hgb (11.4-16.0) gm/dL Hct (34.0-46.0) % MCV (80.0-100.0) fL MCH (25.0-35.0) pg MCHC (31.0-37.0) g/dL RDW (11.5-15.5) % Plt Count (150-450) k/uL Neutrophils % % Lymphocytes % % Monocytes % % Eosinophils % % Basophils % % Neutrophils # (1.3-7.7) k/uL Lymphocytes # (1.0-4.8) k/uL Monocytes # (0-1.0) k/uL Eosinophils # (0-0.7) k/uL Basophils # (0-0.2) k/uL PT 10.2 (9.0-12.0) sec INR 0.9 (<1.2) APTT 20.2 L (22.0-30.0) sec Sodium 135 L (137-145) mmol/L Potassium 6.9 H* (3.5-5.1) mmol/L Chloride 89 L (98-107) mmol/L Carbon Dioxide 40 H (22-30) mmol/L Anion Gap 6 mmol/L BUN 57 H (7-17) mg/dL Creatinine 1.33 H (0.52-1.04) mg/dL Est GFR (CKD-EPI)AfAm 45 (>60 ml/min/1.73 sqM) Est GFR (CKD-EPI)NonAf 39 (>60 ml/min/1.73 sqM) Glucose 269 H (74-99) mg/dL Calcium 9.6 (8.4-10.2) mg/dL Total Bilirubin 0.4 (0.2-1.3) mg/dL AST 11 L (14-36) U/L ALT 22 (9-52) U/L Alkaline Phosphatase 42 (38-126) U/L Troponin I <0.012 (0.000-0.034) ng/mL NT-Pro-B Natriuret Pep pg/mL Total Protein 5.4 L (6.3-8.2) g/dL Albumin 3.3 L (3.5-5.0) g/dL Amylase <30 L (30-110) U/L Lipase 29 (23-300) U/L Urine Color Urine Appearance (Clear) Urine pH (5.0-8.0) Ur Specific [place] (1.001-1.035) Urine Protein (Negative) Urine Glucose (UA) (Negative) Urine Ketones (Negative) Urine Blood (Negative) Urine Nitrite (Negative) Urine Bilirubin (Negative) Urine Urobilinogen (<2.0) mg/dL Ur Leukocyte Esterase (Negative) Urine RBC (0-5) /hpf Urine WBC (0-5) /hpf Ur Squamous Epith Cells (0-4) /hpf Hyaline Casts (0-2) /lpf 06/03/18 06/03/18 06/03/18 Range/Units 15:19 15:19 15:40 WBC 13.8 H (3.8-10.6) k/uL RBC 3.74 L (3.80-5.40) m/uL Hgb 11.6 (11.4-16.0) gm/dL Hct 37.4 (34.0-46.0) % MCV 99.9 (80.0-100.0) fL MCH 31.1 (25.0-35.0) pg MCHC 31.1 (31.0-37.0) g/dL RDW 12.9 (11.5-15.5) % Plt Count 162 (150-450) k/uL Neutrophils % 88 % Lymphocytes % 7 % Monocytes % 4 % Eosinophils % 1 % Basophils % 0 % Neutrophils # 12.1 H (1.3-7.7) k/uL Lymphocytes # 1.0 (1.0-4.8) k/uL Monocytes # 0.6 (0-1.0) k/uL Eosinophils # 0.1 (0-0.7) k/uL Basophils # 0.0 (0-0.2) k/uL PT (9.0-12.0) sec INR (<1.2) APTT (22.0-30.0) sec Sodium (137-145) mmol/L Potassium (3.5-5.1) mmol/L Chloride (98-107) mmol/L Carbon Dioxide (22-30) mmol/L Anion Gap mmol/L BUN (7-17) mg/dL Creatinine (0.52-1.04) mg/dL Est GFR (CKD-EPI)AfAm (>60 ml/min/1.73 sqM) Est GFR (CKD-EPI)NonAf (>60 ml/min/1.73 sqM) Glucose (74-99) mg/dL Calcium (8.4-10.2) mg/dL Total Bilirubin (0.2-1.3) mg/dL AST (14-36) U/L ALT (9-52) U/L Alkaline Phosphatase (38-126) U/L Troponin I (0.000-0.034) ng/mL NT-Pro-B Natriuret Pep 2650 pg/mL Total Protein (6.3-8.2) g/dL Albumin (3.5-5.0) g/dL Amylase (30-110) U/L Lipase (23-300) U/L Urine Color Light Yellow Urine Appearance Clear (Clear) Urine pH 7.0 (5.0-8.0) Ur Specific [place] 1.010 (1.001-1.035) Urine Protein Negative (Negative) Urine Glucose (UA) Trace H (Negative) Urine Ketones Negative (Negative) Urine Blood Small H (Negative) Urine Nitrite Negative (Negative) Urine Bilirubin Negative (Negative) Urine Urobilinogen <2.0 (<2.0) mg/dL Ur Leukocyte Esterase Negative (Negative) Urine RBC 4 (0-5) /hpf Urine WBC 4 (0-5) /hpf Ur Squamous Epith Cells 1 (0-4) /hpf Hyaline Casts 1 (0-2) /lpf 06/03/18 17:11 EKG performed at 1431 showed marked sinus bradycardia with immature superventricular complexes. Minimal voltage criteria for LVH may be normal variant. Abnormal EKG. (Marlyn Roberts) - Radiology Data No active cardiac disease. Normal heart. Clearing of mild congestion compared old exam. 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 No acute intracranial normality. Cerebral atrophy no changes. (Marlyn Roberts) Critical Care Time Critical Care Time: Yes Total Critical Care Time: 35 <Michele Santamaria - Last Filed: 06/03/18 17:02> Disposition <Michele Santamaria - Last Filed: 06/03/18 17:02> Is patient prescribed a controlled substance at d/c from ED?: No Time of Disposition: 17:11 <Marlyn Roberts - Last Filed: 06/03/18 17:11> Clinical Impression: Fall, Hyperkalemia, Acute kidney injury, Failure to thrive in adult, Risk for falls, Morbid obesity Disposition: ADMITTED IP TO THIS HOSP Condition: Stable Referrals: Chris Yi MD [Primary Care Provider] - 1-2 days
[2018-06-03 15:43] LABS: ALT 22 U/L (9-52); AST 11 U/L (14-36); Albumin 3.3 g/dL (3.5-5.0); Alkaline Phosphatase 42 U/L (38-126); Amylase <30 U/L (30-110); Anion Gap 6 mmol/L; Blood Urea Nitrogen 57 mg/dL (7-17); Calcium 9.6 mg/dL (8.4-10.2); Chloride 89 mmol/L (98-107); Glucose 269 mg/dL (74-99); INR 0.9 (<1.2); Lipase 29 U/L (23-300); Prothrombin Time 10.2 sec (9.0-12.0); Sodium 135 mmol/L (137-145); Total Bilirubin 0.4 mg/dL (0.2-1.3); Total Protein 5.4 g/dL (6.3-8.2)
[2018-06-03 15:46] LABS: Partial Thromboplastin Time 20.2 sec (22.0-30.0)
[2018-06-03 15:54] LABS: Basophils % (A) 0 %; Eosinophils # (A) 0.1 k/uL (0-0.7); Eosinophils % (A) 1 %; HCT 37.4 % (34.0-46.0); HGB 11.6 gm/dL (11.4-16.0); Lymphocytes % (A) 7 %; MCH 31.1 pg (25.0-35.0); MCHC 31.1 g/dL (31.0-37.0); MCV 99.9 fL (80.0-100.0); Mean Platelet Volume 7.5; Monocytes # (A) 0.6 k/uL (0-1.0); Monocytes % (A) 4 %; Neutrophils # (A) 12.1 k/uL (1.3-7.7); Neutrophils % (A) 88 %; Platelet Count 162 k/uL (150-450); RBC 3.74 m/uL (3.80-5.40); RDW 12.9 % (11.5-15.5); WBC 13.8 k/uL (3.8-10.6)
[2018-06-03 15:56] LABS: Carbon Dioxide 40 mmol/L (22-30); Potassium 6.9 mmol/L (3.5-5.1)
[2018-06-03 16:04] LABS: Appearance,Urine Clear (Clear); Bilirubin,Urine Negative (Negative); Blood,Urine Small (Negative); Color,Urine Light Yellow; Glucose,Urine (UA) Trace (Negative); Hyaline Casts,Urine 1 /lpf (0-2); Ketones,Urine Negative (Negative); Leukocyte Esterase,Urine Negative (Negative); Nitrite,Urine Negative (Negative); Protein,Urine Negative (Negative); RBC,Urine 4 /hpf (0-5); Squamous Epithelial Cell,Urine 1 /hpf (0-4); Urobilinogen,Urine <2.0 mg/dL (<2.0); WBC,Urine 4 /hpf (0-5)
--- NOTE | 2018-06-03 16:15 | CT ---
EXAMINATION TYPE: CT brain wo con DATE OF EXAM: 06/03/2018 COMPARISON: 02/11/2018 HISTORY: ams, weakness CT DLP: 1074.4 mGycm Automated exposure control for dose reduction was used. FINDINGS: There is diffuse cerebral cortical atrophy. There is no mass effect nor midline shift. There is no si gn of intracranial hemorrhage. There is some white matter patchy hypodensity in the right internal ca psule. Calvarium is intact. IMPRESSION: OLD RIGHT INTERNAL CAPSULE LACUNAR INFARCTS. NO ACUTE INTRACRANIAL ABNORMALITY. CEREBRAL ATROPHY. NO CHANGE.
[2018-06-03] MEDS ORDERED: INSULIN REGULAR 100 UNIT/ML VIAL IV ONE ×2 (16:16→16:48)
[2018-06-03] MEDS ORDERED: SODIUM POLYSTYRENE SULFONATE 15 GM/60 ML BOTTLE PO ONE (16:16)
[2018-06-03] MEDS ORDERED: ALBUTEROL NEB (CONC) 2.5 MG/0.5 ML INHALATION ONE (16:16)
[2018-06-03] MEDS ORDERED: DEXTROSE 50%-WATER 50 ML SYRINGE IVP ONE ×2 (16:16→16:48)
--- NOTE | 2018-06-03 16:22 | XR ---
EXAMINATION TYPE: XR chest 2V DATE OF EXAM: 06/03/2018 COMPARISON: 03/10/2018 HISTORY: Pain TECHNIQUE: Frontal and lateral views of the chest are obtained. FINDINGS: There is no heart failure nor confluent pneumonic infiltrate. Costophrenic angles are david r. There are chest leads. There is minimal atheromatous change in the thoracic aorta. Bony thorax is intact. IMPRESSION: No active cardiopulmonary disease. Normal heart.There is clearing of mild congestion com pared to old exam.
[2018-06-03] MEDS ORDERED: CALCIUM CHLORIDE 1 GM in SODIUM CHLORIDE 0.9% 50 ML IVPB ONE (16:31)
[2018-06-03] MEDS ORDERED: SODIUM CHLORIDE 0.9% 1,000 ML IV ONE (16:31)
[2018-06-03] MEDS ORDERED: ONDANSETRON 4 MG/2 ML VIAL IVP STA (17:07)
[2018-06-03] MEDS ORDERED: MORPHINE SULFATE 4 MG/ML SYRINGE IV PRN (17:13)
[2018-06-03] MEDS ORDERED: ACETAMINOPHEN SUPPOSITORY 650 MG SUPP RECTAL PRN (17:13)
[2018-06-03] MEDS ORDERED: NALOXONE 0.4 MG/ML 1 ML VIAL IV PRN (17:13)
[2018-06-03] MEDS ORDERED: BISACODYL 10 MG SUPP RECTAL PRN (17:13)
[2018-06-03 18:39] LABS: Glucose,Whole Blood 193 mg/dL (75-99)
[2018-06-03 19:09] LABS: Magnesium 1.7 mg/dL (1.6-2.3); Potassium 4.7 mmol/L (3.5-5.1)
[2018-06-03] MEDS: INSULIN ASPART (NovoLOG) 100 UNIT/ML VIAL SQ SCH ×2 (19:24→21:21)
[2018-06-03 21:08] LABS: Glucose,Whole Blood 175 mg/dL (75-99)
[2018-06-03] MEDS: HEPARIN SODIUM,PORCINE 5,000 UNIT/ML 1 ML VIAL SQ SCH (21:22)
[2018-06-04] MEDS: ACETAMINOPHEN TAB 325 MG TAB PO PRN (04:04)
[2018-06-04] MEDS: HEPARIN SODIUM,PORCINE 5,000 UNIT/ML 1 ML VIAL SQ SCH ×3 (04:08→20:35)
[2018-06-04 06:02] LABS: Basophils % (A) 0 %; Eosinophils # (A) 0.2 k/uL (0-0.7); Eosinophils % (A) 2 %; HGB 10.1 gm/dL (11.4-16.0); Lymphocytes # (A) 1.9 k/uL (1.0-4.8); Lymphocytes % (A) 19 %; MCH 31.4 pg (25.0-35.0); MCHC 31.6 g/dL (31.0-37.0); MCV 99.4 fL (80.0-100.0); Mean Platelet Volume 7.4; Monocytes # (A) 0.8 k/uL (0-1.0); Monocytes % (A) 8 %; Neutrophils % (A) 70 %; Platelet Count 124 k/uL (150-450); RBC 3.22 m/uL (3.80-5.40); RDW 12.9 % (11.5-15.5)
[2018-06-04 06:25] LABS: Calcium 9.4 mg/dL (8.4-10.2); Magnesium 1.7 mg/dL (1.6-2.3); Phosphorus 4.5 mg/dL (2.5-4.5); Potassium 4.6 mmol/L (3.5-5.1)
[2018-06-04] MEDS: INSULIN ASPART (NovoLOG) 100 UNIT/ML VIAL SQ SCH ×4 (06:39→20:36)
[2018-06-04 07:06] LABS: Glucose,Whole Blood 93 mg/dL (75-99)
--- NOTE | 2018-06-04 08:58 | XR ---
EXAMINATION TYPE: XR chest 1V portable DATE OF EXAM: 06/04/2018 COMPARISON: 06/03/2018 HISTORY: Pain TECHNIQUE: Single frontal view of the chest is obtained. FINDINGS: There is no focal air space opacity, pleural effusion, or pneumothorax seen. The cardiac silhouette size is within normal limits. The osseous structures are intact. Heart size is prominent there is enlarged pulmonary arteries. Surgical clips overlying soft tissues. IMPRESSION: Pulmonary arteries are prominent correlate for pulmonary arterial hypertension. CT scan could be obtained to exclude other etiologies of hilar prominence.
[2018-06-04] MEDS: PANTOPRAZOLE 40 MG/10 ML VIAL IV SCH (09:05)
[2018-06-04] MEDS: MAGNESIUM SULFATE-D5W PMX 1 GM in DEXTROSE/WATER 1 100ML.BAG IVPB SCH (09:06)
--- NOTE | 2018-06-04 09:31 | US ---
EXAMINATION TYPE: US carotid duplex BILAT DATE OF EXAM: 06/04/2018 COMPARISON: NONE CLINICAL HISTORY: hx cva. Fall, syncope, history of CVA, HTN, DM, exam done portable in the ICU EXAM MEASUREMENTS: RIGHT: Peak Systolic Velocity (PSV) cm/sec ----- Right CCA: 84.2 ----- Right ICA: 99.7 ----- Right ECA: 82.1 ICA/CCA ratio: 1.2 RIGHT: End Diastole cm/sec ----- Right CCA: 7.3 ----- Right ICA: 15.0 ----- Right ECA: 0.0 LEFT: Peak Systolic Velocity (PSV) cm/sec ----- Left CCA: 76.0 ----- Left ICA: 104.1 ----- Left ECA: 102.5 ICA/CCA ratio: 1.4 LEFT: End Diastole cm/sec ----- Left CCA: 11.9 ----- Left ICA: 17.2 ----- Left ECA: 4.9 VERTEBRALS (direction of flow): Right Vertebral: Antegrade Left Vertebral: Antegrade Rhythm: Normal Bilateral intimal thickening, minimal plaque bilateral bulb, no elevated velocities, no significant s tenosis. IMPRESSION: Bilateral plaque formation with no significant hemodynamic stenosis as visualized. Criteria for Assigning % of Stenosis / Diameter reduction (Estimation based on the indirect measurements of the internal carotid artery velocities (ICA PSV). 1. Normal (no stenosis)=ICA PSV < 125 cm/s: ratio < 2.0: ICA EDV<40 cm/s. 2. Less than 50% stenosis=ICA PSV < 125 cm/s: ratio < 2.0: ICA EDV<40 cm/s. 3. 50 to 69% stenosis=ICA PSV of 125 to 230 cm/s: ration 2.0 ? 4.0: ICA EDV 40-100 cm/s. 4. Greater than 70% stenosis to near occlusion= ICA PSV > 230 cm/s: ratio > 4.0: ICA EDV > 100 cm/s. 5. Near occlusion= ICA PSV velocities may be low or undetectable: variable ratio and ICA EDV. 6. Total occlusion=unable to detect flow.
[2018-06-04 12:05] LABS: Glucose,Whole Blood 208 mg/dL (75-99)
[2018-06-04 15:56] LABS: Hemoglobin A1C 8.5 % (4.0-6.0)
[2018-06-04 17:06] LABS: Glucose,Whole Blood 198 mg/dL (75-99)
[2018-06-04] MEDS ORDERED: NITROGLYCERIN SL TABS 0.4 MG TAB SUBLINGUAL PRN (17:29)
--- NOTE | 2018-06-04 17:35 | P.CNPUL ---
History of Present Illness Consult date: 06/04/18 Reason for consult: other (ICU management) History of present illness: This is a 73-year-old female who presented emergency department after a fall at home. The patient states she slipped out of her chair and hit her head. The patient resides at [facility]. She states she does not like living there. She states that she is lonely doesn't help that she needs. The patient is quite tearful and states that she hurts all over. She states no one will help her. She is also asking when her dinner well of 5. The patient has known TAMRA/O HS. In the emergency department the patient was found to have bradycardia. The patient has been asymptomatic. Her blood pressure has been stable. She was admitted to the intensive care unit for further monitoring. The patient was also found to have acute kidney injury with a potassium of 6.9. Her potassium today is 4.6. The patient has chronic hypoxic and hypercapnic respiratory failure. Compensated with a metabolic alkalosis. She is currently on 2 L nasal cannula with O2 saturation 100%. Review of Systems All systems: negative Past Medical History Past Medical History: Asthma, Coronary Artery Disease (CAD), Cancer, Chest Pain / Angina, CVA/TIA, Diabetes Mellitus, GERD/Reflux, Hyperlipidemia, Hypertension, Memory Impairment, Pneumonia, Sleep Apnea/CPAP/BIPAP Additional Past Medical History / Comment(s): IDDM type II, TAMRA unable to tolerate CPAP, bronchitis, chronic low back pain- bulging discs, scoliosis, urinary incontinence, IBS, gastric ulcers, hiatal hernia, TIA 3 yrs roughly ago- memory impairment, uses O2 @2l continuously, hypothyroid, hemorrhoids, anemia, Cervical CA hysterectomy, sinus problems at times. History of Any Multi-Drug Resistant Organisms: MRSA Date of last positivie culture/infection: 04/02/11 MDRO Source:: L chest/L lower leg/ankle Past Surgical History: Bladder Surgery, Cholecystectomy, Heart Catheterization, Heart Catheterization With Stent, Hysterectomy Additional Past Surgical History / Comment(s): PCI with a total of 5 stents per pt with last stent placed 06/29/16, partial parathyroidectomy, bilateral cataracts removed, I and D of L chest wall abscess and L ankle wound, bladder surgery with implant of stimulator system 02/2010, EGD/colonoscoy. Past Anesthesia/Blood Transfusion Reactions: No Reported Reaction Additional Past Anesthesia/Blood Transfusion Reaction / Comment(s): Pt states she has received blood in the past without reaction. Date of Last Stent Placement:: 06/29/16 Past Psychological History: Anxiety, Depression Additional Psychological History / Comment(s): RESIDES @ [facility] apartments. USES [facility] W/C . HOME CARE FROM [facility]FOR MEDICATION ADMINISTRATION. O2 at 2L/NC ATC. Staff manages her medications. She goes to a [facility] area for meals usually- Patient currently resides at [facility] for rehab Smoking Status: Never smoker Past Alcohol Use History: None Reported Past Drug Use History: None Reported - Past Family History Brother(s) Family Medical History: Coronary Artery Disease (CAD) Father Family Medical History: Cancer, Coronary Artery Disease (CAD) Additional Family Medical History / Comment(s): Father had prostate cancer. Mother Family Medical History: Asthma, COPD Medications and Allergies Home Medications Medication Instructions Recorded Confirmed Type Citalopram Hydrobromide [CeleXA] 40 mg PO DAILY 09/20/14 06/04/18 History clonazePAM [KlonoPIN] 1 mg PO TID 09/20/14 06/04/18 History Ferrous Sulfate [Iron (65 MG 325 mg PO DAILY tab 10/08/15 06/04/18 Rx Elemental)] traMADol HCl [Ultram] 50 mg PO Q3H PRN 10/19/16 06/04/18 History Nitroglycerin Sl Tabs [Nitrostat] 0.4 mg SUBLINGUAL Q5M PRN #30 tab 12/23/16 06/04/18 Rx Atorvastatin [Lipitor] 40 mg PO HS 01/30/17 06/04/18 History Aspirin EC [Ecotrin Low Dose] 81 mg PO DAILY 12/14/17 06/04/18 History Gabapentin [Neurontin] 100 mg PO BID 12/14/17 06/04/18 History Isosorbide Mononitrate ER [Imdur] 60 mg PO DAILY 12/14/17 06/04/18 History Acetaminophen [Tylenol] 325 mg PO BID 01/16/18 06/04/18 History Cholecalciferol [Vitamin D3] 2,000 unit PO DAILY tab 03/19/18 06/04/18 Rx Metoprolol Tartrate [Lopressor] 25 mg PO BID tab 03/19/18 06/04/18 Rx Pantoprazole [Protonix] 40 mg PO DAILY@0730 tablet.dr 03/19/18 06/04/18 Rx Albuterol Sulfate [Proair Hfa] 1 - 2 puff INHALATION RT-Q6H PRN 06/04/18 06/04/18 History Furosemide [Lasix] 40 mg PO BID 06/04/18 06/04/18 History INSULIN ASPART (NovoLOG) [NovoLOG 6 unit SQ ACHS 06/04/18 06/04/18 History (formulary)] Insulin Glargine,Hum.rec.anlog 50 unit SQ HS 06/04/18 06/04/18 History [Lantus Solostar] Lisinopril [Zestril] 20 mg PO DAILY 06/04/18 06/04/18 History predniSONE 20 mg PO DAILY 06/04/18 06/04/18 History Allergies Allergy/AdvReac Type Severity Reaction Status Date / Time latex Allergy Mild Rash/Hives Verified 06/04/18 09:03 codeine Allergy Anaphylaxis Verified 06/04/18 09:03 morphine Allergy Hallucinati Verified 06/04/18 09:03 ons Penicillins Allergy Anaphylaxis Verified 06/04/18 09:03 propoxyphene napsylate Allergy Anaphylaxis Verified 06/04/18 09:03 [From Darvocet-N 100] tuberculin, purified protein Allergy Rash/Hives Verified 06/04/18 09:03 deriva [tuberculin,purif.prot.deriv.] adhesive AdvReac Mild Rash/Hives, Verified 06/04/18 09:03 W/ TAPES, CAN USE PAPER TAPE Physical Exam Osteopathic Statement: *. No significant issues noted on an osteopathic structural exam other than those noted in the History and Physical/Consult. Vitals: Vital Signs Temp Pulse Pulse Resp BP BP Pulse Ox 06/04/18 16:00 98.1 F 51 L 16 125/39 100 06/04/18 15:00 53 L 11 L 104/46 99 06/04/18 14:00 54 L 18 110/43 98 06/04/18 13:00 53 L 20 103/40 94 L 06/04/18 12:00 97.6 F 53 L 12 135/44 94 L 06/04/18 11:00 52 L 20 134/42 100 06/04/18 10:00 53 L 15 139/36 98 06/04/18 09:00 55 L 18 120/37 99 06/04/18 08:00 97.6 F 52 L 12 148/65 98 06/04/18 07:45 61 20 86 L 06/04/18 07:30 51 L 21 122/41 95 06/04/18 07:15 51 L 5 L 98 06/04/18 07:00 50 L 23 132/61 91 L 06/04/18 05:52 51 L 12 118/47 98 06/04/18 05:00 52 L 14 98 06/04/18 04:00 97.5 F L 51 L 12 137/46 98 06/04/18 03:00 52 L 12 139/88 99 06/04/18 02:00 53 L 12 144/67 99 06/04/18 01:00 52 L 11 L 125/40 98 06/04/18 00:00 97.8 F 51 L 12 118/48 99 06/03/18 23:02 53 L 12 114/51 96 06/03/18 21:59 52 L 11 L 114/49 98 06/03/18 21:02 54 L 12 128/61 98 06/03/18 20:00 97.8 F 53 L 15 116/46 98 06/03/18 19:45 55 L 10 L 114/25 97 06/03/18 19:30 54 L 16 115/46 97 06/03/18 19:15 53 L 12 108/60 97 06/03/18 19:00 54 L 12 110/81 97 06/03/18 18:45 55 L 15 122/46 97 06/03/18 18:30 98.2 F 54 L 13 117/79 95 06/03/18 18:08 55 L 16 106/75 99 06/03/18 18:00 56 L 12 105/52 96 06/03/18 17:15 56 L 18 95/45 99 Intake and Output 06/04/18 06/04/18 06/04/18 06:59 14:59 22:59 Intake Total 1340 800 200 Output Total 555 635 200 Balance 785 165 0 Intake: IV 800 800 200 Sodium Chloride 0.9% 1, 700 800 200 000 ml @ 100 mls/hr IV . Q10H STA Rx#:[id number] Sodium Chloride 0.9% 1, 100 000 ml @ 999 mls/hr IV . Q1H1M ONE Rx#:[id number] Oral 540 Output: Urine 555 635 200 Other: Voiding Method Indwelling Catheter Indwelling Catheter Indwelling Catheter Weight 134.4 kg Gen.: Patient is alert and oriented 3, morbidly obese, tearful Cardiovascular: Regular rate and rhythm, S1/S2, bradycardic Lungs: Diminished breath sounds at the bases otherwise clear Abdomen: Soft nontender nondistended positive bowel sounds Extremities: Trace edema Results - Laboratory Findings CBC and BMP: 06/04/18 05:30 06/04/18 05:30 PT/INR, D-dimer PT 10.2 sec (9.0-12.0) 06/03/18 15:13 INR 0.9 (<1.2) 06/03/18 15:13 Abnormal lab findings: Abnormal Labs 06/03/18 06/03/18 06/03/18 15:13 15:13 15:19 WBC 13.8 H RBC 3.74 L Hgb Hct Plt Count Neutrophils # 12.1 H APTT 20.2 L Sodium 135 L Potassium 6.9 H* Chloride 89 L Carbon Dioxide 40 H BUN 57 H Creatinine 1.33 H Glucose 269 H POC Glucose (mg/dL) Hemoglobin A1c AST 11 L Total Protein 5.4 L Albumin 3.3 L Amylase <30 L Urine Glucose (UA) Urine Blood 06/03/18 06/03/18 06/03/18 15:40 18:35 18:49 WBC RBC Hgb Hct Plt Count Neutrophils # APTT Sodium 136 L Potassium Chloride 91 L Carbon Dioxide 39 H BUN 54 H Creatinine 1.18 H Glucose 204 H POC Glucose (mg/dL) 193 H Hemoglobin A1c AST Total Protein Albumin Amylase Urine Glucose (UA) Trace H Urine Blood Small H 06/03/18 06/04/18 06/04/18 20:54 05:30 05:30 WBC RBC 3.22 L Hgb 10.1 L Hct 32.0 L Plt Count 124 L Neutrophils # APTT Sodium Potassium Chloride Carbon Dioxide BUN Creatinine Glucose POC Glucose (mg/dL) 175 H Hemoglobin A1c 8.5 H AST Total Protein Albumin Amylase Urine Glucose (UA) Urine Blood 06/04/18 06/04/18 05:30 12:01 WBC RBC Hgb Hct Plt Count Neutrophils # APTT Sodium Potassium Chloride 96 L Carbon Dioxide 37 H BUN 49 H Creatinine Glucose POC Glucose (mg/dL) 208 H Hemoglobin A1c AST Total Protein Albumin Amylase Urine Glucose (UA) Urine Blood - Diagnostic Findings Chest x-ray: report reviewed, image reviewed Assessment and Plan Assessment: Acute on chronic hypoxic and hypercapnic respiratory failure TAMRA/OHS noncompliant with CPAP Moderate pulmonary hypertension with RVSP 46 mmHg Asthma, unknown type Hyperkalemia, resolved KAMILAH, improving Morbid obesity Hyponatremia, dehydration, resolved Generalized weakness and debility Fall from sitting History of CVA DM2 uncontrolled Leukocytosis, resolved Mild PCM GERD Dyslipidemia Hypertension ASCAD Chronic pain with DDD History of gastric ulcers and GIB IBS Hypothyroid History of cervical cancer O2 to maintain saturation > or - 90% Patient appears to have chronic bradycardia which is asymptomatic Ok to transfer out of the ICU to telemetry Hold KATIE Albright PRN Nephrology recommendations Monitor electrolytes, renal function, urine output Patient has been intolerant of CPAP BS control, insulin sliding scale and Levemir No need for systemic steroids from pulmonary standpoint Case management and social work for placement issues Consult Dr. Roque for possible IPR GI and DVT prophylaxis: Heparin and Protonix IS and pulmonary hygiene OOB TID, PT and OT Continue patient's home medications Thank you for this consultation. We will continue to follow along.
[2018-06-04] MEDS: traMADol 50 MG TAB PO PRN (20:23)
[2018-06-04] MEDS: GABAPENTIN 100 MG CAP PO SCH (20:34)
[2018-06-04] MEDS: INSULIN DETEMIR (LEVEMIR) 100 UNIT/ML SYR SQ SCH (21:57)
[2018-06-04] MEDS: clonazePAM 1 MG TAB PO SCH (21:57)
--- NOTE | 2018-06-04 22:03 | HP ---
HISTORY AND PHYSICAL CHIEF COMPLAINT: This patient is a 73-year-old female who had a fall at home. She slipped out of the chair, hit her head. She is quite tearful. She hurts all over. Pain level is high. In the emergency room she was found to have bradycardia, asymptomatic. Cardiology is seeing her. She had acute kidney injury. Potassium was 6.9. Today it is 4.6. Will transport her out of the ICU. She is doing fine. She is compensated with metabolic alkalosis. She is at 2 L oxygen, 100%. PAST MEDICAL HISTORY: 1. Asthma. 2. COPD. 3. Diabetes mellitus. 4. GERD. 5. Angina. 6. CVA. 7. Cervical cancer. 8. Hysterectomy. 9. IBS. 10.Urinary incontinence. 11.Bulging disc disease. 12.TIA. 13.Hypothyroidism. 14.Hernia. 15.Hemorrhoids. 16.Anemia. 17.Cervical cancer. 18.Sinus problems. 19.Anxiety. 20.Depression. PAST SURGICAL HISTORY: 1. Bladder surgery. 2. Cholecystectomy. 3. Heart catheterization. 4. Hysterectomy. 5. Partial parathyroidectomy. 6. Bilateral cataracts. PAST FAMILY HISTORY: Brother with coronary artery disease. Father had coronary artery disease. Mother with COPD, asthma. MEDICATIONS: See list. PHYSICAL EXAMINATION: Vital signs reviewed are stable. Morbid obesity. Tearful due to lower back pain. CARDIOVASCULAR: Regular rate and rhythm. Lungs are diminished. Abdomen is soft. EXTREMITIES: Trace edema. LABS: Reviewed. Potassium 6.9, which is improved. BUN is 54, creatinine 1.18. Chest x-ray is negative. ASSESSMENT: 1. Acute on chronic hypoxemic hypercapnic respiratory failure. 2. Obstructive sleep apnea. 3. Pulmonary hypertension. 4. Asthma. 5. Hyperkalemia. 6. Acute kidney injury. 7. Obesity. 8. Hyponatremia. 9. fall. 10.History of lumbar disc disease. 11.History of cerebrovascular accident. 12.Diabetes mellitus, type 2. 13.Hypertension. 14.Degenerative disc disease. 15.History of gastric ulcers. 16.Irritable bowel syndrome. 17.Hypothyroid. 18.Cervical cancer. Continue current treatments. Send her out of the ICU, as she is medically stable. MMODL / IJN: [id number] /
[2018-06-04 23:16] LABS: Glucose,Whole Blood 136 mg/dL (75-99)
[2018-06-04 23:16] LABS: Glucose,Whole Blood 156 mg/dL (75-99)
[2018-06-05] MEDS: ACETAMINOPHEN TAB 325 MG TAB PO PRN (01:25)
[2018-06-05 01:34] LABS: Glucose,Whole Blood 234 mg/dL (75-99)
[2018-06-05 02:00] LABS: Appearance,Urine Turbid (Clear); Bacteria,Urine Many /hpf; Bilirubin,Urine Negative (Negative); Blood,Urine Large (Negative); Color,Urine Yellow; Glucose,Urine (UA) 2+ (Negative); Ketones,Urine Negative (Negative); Leukocyte Esterase,Urine Large (Negative); Nitrite,Urine Positive (Negative); PH, Urine 7.5 (5.0-8.0); Protein,Urine 1+ (Negative); RBC,Urine 23 /hpf (0-5); Specific Gravity,Urine 1.014 (1.001-1.035); Urobilinogen,Urine <2.0 mg/dL (<2.0); WBC,Urine >182 /hpf (0-5)
[2018-06-05] MEDS ORDERED: SODIUM CHLORIDE 0.9% 500 ML 500 ML IV ONE (03:40)
[2018-06-05] MEDS ORDERED: ALBUTEROL NEBULIZED 2.5 MG/3 ML INHALATION PRN (03:40)
[2018-06-05] MEDS ORDERED: PIPERACILLIN-TAZOBACTAM 3.375 GM in SODIUM CHLORIDE 0.9% 100 ML IVPB SCH (03:45)
[2018-06-05] MEDS: HEPARIN SODIUM,PORCINE 5,000 UNIT/ML 1 ML VIAL SQ SCH ×3 (04:04→21:49)
[2018-06-05 05:08] LABS: Basophils % (A) 0 %; Eosinophils # (A) 0.2 k/uL (0-0.7); Eosinophils % (A) 2 %; HCT 31.9 % (34.0-46.0); HGB 9.9 gm/dL (11.4-16.0); Lymphocytes % (A) 19 %; MCH 31.5 pg (25.0-35.0); MCHC 31.1 g/dL (31.0-37.0); MCV 101.2 fL (80.0-100.0); Mean Platelet Volume 7.2; Monocytes # (A) 0.9 k/uL (0-1.0); Monocytes % (A) 8 %; Neutrophils # (A) 7.5 k/uL (1.3-7.7); Neutrophils % (A) 69 %; Platelet Count 123 k/uL (150-450); RBC 3.15 m/uL (3.80-5.40); RDW 13.1 % (11.5-15.5); WBC 10.8 k/uL (3.8-10.6)
[2018-06-05 05:19] LABS: Calcium 8.7 mg/dL (8.4-10.2); Magnesium 1.8 mg/dL (1.6-2.3); Phosphorus 3.1 mg/dL (2.5-4.5); Potassium 4.6 mmol/L (3.5-5.1)
[2018-06-05] MEDS: SODIUM CHLORIDE 0.9% 1,000 ML IV SCH ×2 (05:46→21:50)
[2018-06-05] MEDS: traMADol 50 MG TAB PO PRN (05:48)
[2018-06-05] MEDS ORDERED: Magnesium Replacement Protocol 1 EACH MISC MISCELLANE PRN (06:15)
[2018-06-05] MEDS: MAGNESIUM SULFATE-D5W PMX 1 GM in DEXTROSE/WATER 1 100ML.BAG IVPB SCH ×2 (06:30→09:34)
[2018-06-05 06:40] LABS: Glucose,Whole Blood 156 mg/dL (75-99)
[2018-06-05] MEDS: INSULIN ASPART (NovoLOG) 100 UNIT/ML VIAL SQ SCH ×4 (07:01→21:49)
--- NOTE | 2018-06-05 08:40 | XR ---
EXAMINATION TYPE: XR chest 1V portable DATE OF EXAM: 06/05/2018 COMPARISON: Prior chest x-ray 06/04/2018 HISTORY: Shortness of breath TECHNIQUE: Single frontal view of the chest is obtained. FINDINGS: The patient is rotated. There is no evident pneumothorax or pleural effusion. There are ca rdiac leads. The aorta is dense. Heart size may be accentuated by rotation. Surgical clips present ov er the upper chest as on prior. Lung volumes are low. Pulmonary artery is prominent. IMPRESSION: Correlate for possible pulmonary artery hypertension. Rotated exam. Possible cardiomegal y.
[2018-06-05] MEDS ORDERED: LISINOPRIL 20 MG TAB PO SCH (09:00)
[2018-06-05] MEDS ORDERED: FUROSEMIDE 40 MG TAB PO SCH (09:00)
[2018-06-05] MEDS ORDERED: CITALOPRAM HYDROBROMIDE 20 MG TAB PO SCH (09:00)
[2018-06-05] MEDS ORDERED: ASPIRIN 81 MG PO SCH (09:00)
[2018-06-05] MEDS: GABAPENTIN 100 MG CAP PO SCH ×2 (09:33→21:48)
[2018-06-05] MEDS: METOPROLOL TARTRATE 25 MG TAB PO SCH ×2 (09:33→21:49)
[2018-06-05] MEDS: clonazePAM 1 MG TAB PO SCH ×3 (09:33→21:49)
[2018-06-05] MEDS: predniSONE 20 MG TAB PO SCH (09:33)
[2018-06-05] MEDS: ATORVASTATIN 40 MG TAB PO SCH (09:33)
[2018-06-05] MEDS: CITALOPRAM HYDROBROMIDE 20 MG TAB PO SCH (09:34)
[2018-06-05] MEDS: ASPIRIN 81 MG PO SCH (09:34)
[2018-06-05] MEDS: PANTOPRAZOLE 40 MG/10 ML VIAL IV SCH (09:34)
[2018-06-05] MEDS ORDERED: LEVOFLOXACIN 500MG-D5W PMX 500 MG in DEXTROSE/WATER 1 100ML.BAG IVPB SCH (11:00)
[2018-06-05 11:27] LABS: Glucose,Whole Blood 103 mg/dL (75-99)
--- NOTE | 2018-06-05 12:09 | P.CONS ---
History of Present Illness - Chief Complaint Medical debility - History of Present Illness I had the opportunity see patient for inpatient consultation with regard to medical debility. She was admitted to [facility] June 03 with history of fall and hitting had. Seen by Dr. dunlap for ICU management. Chest x-rays followed and note pulmonary hypertension. Carotid Doppler demonstrates bilateral plaques. Head CT with old right internal capsule infarct in general cerebral atrophy. PT and OT prescribed. In fact PT with seeing patient during my evaluation. Previous functional history as elicited patient and PTs: 73-year-old right- handed white female is and now blue water large. She receives assistance for bathing, dressing, toileting and functional mobility. Denies tobacco or alcohol. Dr. Yi is regular doctor. Review of Systems Review of systems: ENT: Denies sneezes or discharge. Eyes: Denies discharge or photophobia. Cardiac: Denies chest pain or palpitation. Pulmonary: shortness of breath. Breast: Denies discharge or lumps. Gastrointestinal: Denies nausea, emesis, constipation, diarrhea. Genitourinary: Denies discharge or frequency. Musculoskeletal: Denies muscle or bone aches. Neurologic: Generalized weakness. Endocrine: Denies shakes or sweats. Oncology: Denies cancers. Dermatologic: Denies rash, itching, pruritus. ALLERGY/immunology: Denies sneezes, rashes. Past Medical History Past Medical History: Asthma, Coronary Artery Disease (CAD), Cancer, Chest Pain / Angina, CVA/TIA, Diabetes Mellitus, GERD/Reflux, Hyperlipidemia, Hypertension, Memory Impairment, Pneumonia, Sleep Apnea/CPAP/BIPAP Additional Past Medical History / Comment(s): IDDM type II, TAMRA unable to tolerate CPAP, bronchitis, chronic low back pain- bulging discs, scoliosis, urinary incontinence, IBS, gastric ulcers, hiatal hernia, TIA 3 yrs roughly ago- memory impairment, uses O2 @2l continuously, hypothyroid, hemorrhoids, anemia, Cervical CA hysterectomy, sinus problems at times. History of Any Multi-Drug Resistant Organisms: MRSA Year Discovered:: 04/02/11 MDRO Source:: L chest/L lower leg/ankle Past Surgical History: Bladder Surgery, Cholecystectomy, Heart Catheterization, Heart Catheterization With Stent, Hysterectomy Additional Past Surgical History / Comment(s): PCI with a total of 5 stents per pt with last stent placed 06/29/16, partial parathyroidectomy, bilateral cataracts removed, I and D of L chest wall abscess and L ankle wound, bladder surgery with implant of stimulator system 02/2010, EGD/colonoscoy. Past Anesthesia/Blood Transfusion Reactions: No Reported Reaction Additional Past Anesthesia/Blood Transfusion Reaction / Comm: Pt states she has received blood in the past without reaction. Date of Last Stent Placement:: 06/29/16 Past Psychological History: Anxiety, Depression Additional Psychological History / Comment(s): RESIDES @ [facility] apartments. USES [facility] W/C . HOME CARE FROM [facility]FOR MEDICATION ADMINISTRATION. O2 at 2L/NC ATC. Staff manages her medications. She goes to a [facility] area for meals usually- Patient currently resides at [facility] for rehab Smoking Status: Never smoker Past Alcohol Use History: None Reported Past Drug Use History: None Reported - Past Family History Brother(s) Family Medical History: Coronary Artery Disease (CAD) Father Family Medical History: Cancer, Coronary Artery Disease (CAD) Additional Family Medical History / Comment(s): Father had prostate cancer. Mother Family Medical History: Asthma, COPD Medications and Allergies Home Medications Medication Instructions Recorded Confirmed Type Citalopram Hydrobromide [CeleXA] 40 mg PO DAILY 09/20/14 06/04/18 History clonazePAM [KlonoPIN] 1 mg PO TID 09/20/14 06/04/18 History Ferrous Sulfate [Iron (65 MG 325 mg PO DAILY tab 10/08/15 06/04/18 Rx Elemental)] traMADol HCl [Ultram] 50 mg PO Q3H PRN 10/19/16 06/04/18 History Nitroglycerin Sl Tabs [Nitrostat] 0.4 mg SUBLINGUAL Q5M PRN #30 tab 12/23/16 06/04/18 Rx Atorvastatin [Lipitor] 40 mg PO HS 01/30/17 06/04/18 History Aspirin EC [Ecotrin Low Dose] 81 mg PO DAILY 12/14/17 06/04/18 History Gabapentin [Neurontin] 100 mg PO BID 12/14/17 06/04/18 History Isosorbide Mononitrate ER [Imdur] 60 mg PO DAILY 12/14/17 06/04/18 History Acetaminophen [Tylenol] 325 mg PO BID 01/16/18 06/04/18 History Cholecalciferol [Vitamin D3] 2,000 unit PO DAILY tab 03/19/18 06/04/18 Rx Metoprolol Tartrate [Lopressor] 25 mg PO BID tab 03/19/18 06/04/18 Rx Pantoprazole [Protonix] 40 mg PO DAILY@0730 tablet. 03/19/18 06/04/18 Rx Albuterol Sulfate [Proair Hfa] 1 - 2 puff INHALATION RT-Q6H PRN 06/04/18 06/04/18 History Furosemide [Lasix] 40 mg PO BID 06/04/18 06/04/18 History INSULIN ASPART (NovoLOG) [NovoLOG 6 unit SQ ACHS 06/04/18 06/04/18 History (formulary)] Insulin Glargine,Hum.rec.anlog 50 unit SQ HS 06/04/18 06/04/18 History [Lantus Solostar] Lisinopril [Zestril] 20 mg PO DAILY 06/04/18 06/04/18 History predniSONE 20 mg PO DAILY 06/04/18 06/04/18 History Allergies Allergy/AdvReac Type Severity Reaction Status Date / Time latex Allergy Mild Rash/Hives Verified 06/04/18 09:03 codeine Allergy Anaphylaxis Verified 06/04/18 09:03 morphine Allergy Hallucinati Verified 06/04/18 09:03 ons Penicillins Allergy Anaphylaxis Verified 06/04/18 09:03 propoxyphene napsylate Allergy Anaphylaxis Verified 06/04/18 09:03 [From Darvocet-N 100] tuberculin, purified protein Allergy Rash/Hives Verified 06/04/18 09:03 deriva [tuberculin,purif.prot.deriv.] adhesive AdvReac Mild Rash/Hives, Verified 06/04/18 09:03 W/ TAPES, CAN USE PAPER TAPE Physical Exam Vitals: Vital Signs Temp Pulse Pulse Resp BP BP Pulse Ox 06/05/18 11:43 98.4 F 51 L 20 109/61 100 06/05/18 11:00 49 L 12 117/95 96 06/05/18 10:00 70 18 132/67 95 06/05/18 09:00 66 22 06/05/18 08:00 98.5 F 61 18 132/67 98 06/05/18 07:00 64 16 120/56 100 06/05/18 06:00 71 14 120/56 95 06/05/18 05:00 64 17 120/56 98 06/05/18 04:00 100.1 F H 78 24 120/56 96 06/05/18 03:00 67 25 H 111/39 06/05/18 02:00 75 22 99/62 06/05/18 01:00 78 24 06/05/18 00:00 102 F H 78 22 99/62 93 L 06/04/18 23:15 74 17 06/04/18 23:00 73 18 06/04/18 22:00 69 13 103/81 06/04/18 21:00 61 13 142/34 06/04/18 20:00 98.8 F 63 11 L 112/47 97 06/04/18 19:00 59 L 13 114/88 95 06/04/18 18:00 54 L 18 90/68 91 L 06/04/18 17:00 54 L 22 123/50 98 06/04/18 16:00 98.1 F 51 L 16 125/39 100 06/04/18 15:00 53 L 11 L 104/46 99 06/04/18 14:00 54 L 18 110/43 98 06/04/18 13:00 53 L 20 103/40 94 L Intake and Output 06/04/18 06/05/18 06/05/18 22:59 06:59 14:59 Intake Total 922 1300 530 Output Total 690 835 645 Balance 232 465 -115 Intake: IV 700 700 500 Sodium Chloride 0.9% 1, 200 500 000 ml @ 100 mls/hr IV . Q10H JAVIER Rx#:[id number] Sodium Chloride 0.9% 1, 700 000 ml @ 100 mls/hr IV . Q10H STA Rx#:[id number] Sodium Chloride 0.9% 500 500 ml 500 ml @ 999 mls/hr IV .Q31M ONE Rx#:[id number] Oral 222 600 30 Output: Urine 690 835 645 Other: Voiding Method Indwelling Catheter Indwelling Catheter Indwelling Catheter Weight 134.7 kg Skin: Good color, texture, turgor. General: Morbidly obese build and comfortable appearance. Head: Normocephalic, atraumatic. Eyes: Symmetric. Pupils equal round. Ears: Symmetric. Hearing within normal limits. Mouth: Clear. Neck: Supple. Carotid without bruit. Cardiac: Regular rate and rhythm. Lungs: Clear anteriorly and posteriorly. Abdomen: Soft active nontender, obese. Extremities: Normal tone. Obese. Neurological: Mental status: Alert, cooperative, pleasant, and fatigued. Cranial nerves: Symmetric facial tone and trapezius. Motor: Active movement all 4 limbs but poor. Sensation: Intact throughout. DTRs: Symmetric and equal throughout. Mobility: Therapist's reports of poor sitting balance and were unable to stand patient. Results CBC & Chem 7: 06/05/18 04:41 06/05/18 04:41 Labs: Abnormal Lab Results - Last 24 Hours (Table) 06/04/18 06/04/18 06/04/18 Range/Units 05:30 12:01 17:02 WBC (3.8-10.6) k/uL RBC (3.80-5.40) m/uL Hgb (11.4-16.0) gm/dL Hct (34.0-46.0) % MCV (80.0-100.0) fL Plt Count (150-450) k/uL Sodium (137-145) mmol/L Carbon Dioxide (22-30) mmol/L BUN (7-17) mg/dL Glucose (74-99) mg/dL POC Glucose (mg/dL) 208 H 198 H (75-99) mg/dL Hemoglobin A1c 8.5 H (4.0-6.0) % Plasma Lactic Acid Toy (0.7-2.0) mmol/L Urine Appearance (Clear) Urine Protein (Negative) Urine Glucose (UA) (Negative) Urine Blood (Negative) Urine Nitrite (Negative) Ur Leukocyte Esterase (Negative) Urine RBC (0-5) /hpf Urine WBC (0-5) /hpf Urine WBC Clumps (None) /hpf Urine Bacteria (None) /hpf 06/04/18 06/04/18 06/05/18 Range/Units 20:29 20:50 01:31 WBC (3.8-10.6) k/uL RBC (3.80-5.40) m/uL Hgb (11.4-16.0) gm/dL Hct (34.0-46.0) % MCV (80.0-100.0) fL Plt Count (150-450) k/uL Sodium (137-145) mmol/L Carbon Dioxide (22-30) mmol/L BUN (7-17) mg/dL Glucose (74-99) mg/dL POC Glucose (mg/dL) 156 H 136 H 234 H (75-99) mg/dL Hemoglobin A1c (4.0-6.0) % Plasma Lactic Acid Toy (0.7-2.0) mmol/L Urine Appearance (Clear) Urine Protein (Negative) Urine Glucose (UA) (Negative) Urine Blood (Negative) Urine Nitrite (Negative) Ur Leukocyte Esterase (Negative) Urine RBC (0-5) /hpf Urine WBC (0-5) /hpf Urine WBC Clumps (None) /hpf Urine Bacteria (None) /hpf 06/05/18 06/05/18 06/05/18 Range/Units 01:45 02:20 04:41 WBC 10.8 H (3.8-10.6) k/uL RBC 3.15 L (3.80-5.40) m/uL Hgb 9.9 L (11.4-16.0) gm/dL Hct 31.9 L (34.0-46.0) % MCV 101.2 H (80.0-100.0) fL Plt Count 123 L (150-450) k/uL Sodium (137-145) mmol/L Carbon Dioxide (22-30) mmol/L BUN (7-17) mg/dL Glucose (74-99) mg/dL POC Glucose (mg/dL) (75-99) mg/dL Hemoglobin A1c (4.0-6.0) % Plasma Lactic Acid Toy 2.9 H* (0.7-2.0) mmol/L Urine Appearance Turbid H (Clear) Urine Protein 1+ H (Negative) Urine Glucose (UA) 2+ H (Negative) Urine Blood Large H (Negative) Urine Nitrite Positive H (Negative) Ur Leukocyte Esterase Large H (Negative) Urine RBC 23 H (0-5) /hpf Urine WBC >182 H (0-5) /hpf Urine WBC Clumps Many H (None) /hpf Urine Bacteria Many H (None) /hpf 06/05/18 06/05/18 06/05/18 Range/Units 04:41 06:39 11:25 WBC (3.8-10.6) k/uL RBC (3.80-5.40) m/uL Hgb (11.4-16.0) gm/dL Hct (34.0-46.0) % MCV (80.0-100.0) fL Plt Count (150-450) k/uL Sodium 135 L (137-145) mmol/L Carbon Dioxide 34 H (22-30) mmol/L BUN 30 H (7-17) mg/dL Glucose 176 H (74-99) mg/dL POC Glucose (mg/dL) 156 H 103 H (75-99) mg/dL Hemoglobin A1c (4.0-6.0) % Plasma Lactic Acid Toy (0.7-2.0) mmol/L Urine Appearance (Clear) Urine Protein (Negative) Urine Glucose (UA) (Negative) Urine Blood (Negative) Urine Nitrite (Negative) Ur Leukocyte Esterase (Negative) Urine RBC (0-5) /hpf Urine WBC (0-5) /hpf Urine WBC Clumps (None) /hpf Urine Bacteria (None) /hpf Microbiology - Last 24 Hours (Table) 06/05/18 01:45 Urine Culture - Preliminary Urine,Catheterized 06/03/18 15:40 Urine Culture - Final Urine,Voided Assessment and Plan (1) Failure to thrive in adult Current Visit: Yes Status: Acute Code(s): R62.7 - ADULT FAILURE TO THRIVE SNOMED Code(s): 208546076 (2) Acute metabolic encephalopathy Current Visit: No Status: Acute Code(s): G93.41 - METABOLIC ENCEPHALOPATHY SNOMED Code(s): 93949136 Plan: Impression: 1. Medical debility. 2. Failure to thrive for adult. 4. Acute metabolic encephalopathy. 5. Morbid obesity. 6. Chronic kidney disease. 7. History of stroke and memory impairment. 8. Multiple other medical comorbidities Comments and plan: PT and OT prescribed but rehab prognosis currently guarded. Unsure if patient has been admitted or his observation status, which would affect ability to admitted to rehab.
[2018-06-05] MEDS: CHOLECALCIFEROL 1,000 UNIT TAB PO SCH (12:17)
[2018-06-05] MEDS: FERROUS SULFATE 325 MG TAB PO SCH (12:17)
--- NOTE | 2018-06-05 13:26 | CT ---
EXAMINATION TYPE: CT lumbar spine wo con DATE OF EXAM: 06/05/2018 COMPARISON: 05/17/2017 HISTORY: 73-year-old female lumbar epidural, pain. TECHNIQUE: Contiguous axial scanning of the lumbar spine without IV contrast. Coronal and sagittal re constructions performed. CT DLP: 2106.4 mGycm Automated exposure control for dose reduction was used. FINDINGS: Large patient body habitus causing excessive nor is artifacts, limiting detailed evaluation. Reticula r densities at the visualized posterior lung bases could represent underlying fibrosis. Otherwise, no prevertebral or paravertebral soft tissue abnormality seen. Degenerative changes at the SI joints. Hypertrophic facet arthropathy mid to lower lumbar spine with Baastrup's disease. Redemonstrated grade 1, nearly grade 2 anterolisthesis at L4-L5. Subluxation measures approximately 8 mm now versus 17 mm, previously seen may be minimally increased. Severe degenerative disc disease redemonstrated at L3-L4 and mild to moderate at multiple additional levels. Assessment of the spinal canal is limited due to extensive artifacts. Suspect a mild spinal canal stenosis at L3-L4 from disc bulge and facet arthropathy. Suspect continued severe spinal canal stenosis at L4-L5 secondary to a large disc herniation and ante rolisthesis. On the right, changes contribute to a mild to moderate neuroforaminal stenosis at L4-L5 and moderate L5-S1. On the left, changes contribute to severe neural foraminal stenosis at L3-L4, moderate to severe at L 4-L5, and mild at L5-S1. Not significantly changed from prior. Vertebral body heights are preserved. IMPRESSION: 1. 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 2. GRADE 1, NEARLY GRADE 2 ANTEROLISTHESIS AT L4-L5 MAY BE MINIMALLY INCREASED FROM 05/17/2017. 3. SUSPECTED CONTINUED SEVERE SPINAL CANAL STENOSIS AT L4-L5 FROM A LARGE DISC HERNIATION, FACET ARTH ROPATHY, AND THE SUBLUXATION. 4. SUSPECT AT LEAST MILD SPINAL CANAL STENOSIS AT L2-L4. 5. VARIABLE NEUROFORAMINAL STENOSES MID TO LOWER LUMBAR SPINE OUTLINED ABOVE, SEVERE ON THE LEFT A T L3-L4 AND MODERATE TO SEVERE ON THE LEFT AT L4-L5.
--- NOTE | 2018-06-05 16:19 | PN ---
PROGRESS NOTE DATE OF SERVICE: 06/05/2018 This patient has been hemodynamically stable, was transferred out of the ICU. She feels quite weak. On physical examination, blood pressure is 109/61, respiratory rate of 20, pulse rate of 51, temperature 98.4. Oxygen saturation on 4 L by nasal cannula is 100%. HEENT is unremarkable. Chest reveals decreased breath sounds. Cardiovascular system is in S1, S2. Abdomen is soft. There is trace edema. White count of 10.8, hemoglobin of 9.9. Sodium 135, potassium 4.6, chloride 98, bicarb 34, BUN 30, creatinine 0.84. IMPRESSION AT THIS TIME: 1. Acute on chronic hypoxic and hypercapnic respiratory failure. 2. Obstructive sleep apnea with obesity hypoventilation syndrome. Noncompliant with CPAP. 3. Pulmonary hypertension secondary to obstructive sleep apnea is likely. 4. Asthma. 5. Hyponatremia and hyperkalemia. 6. Bradycardia. Increase her activity level. Continue on her current medications, which were reviewed. MMODL / IJN: [id number] /
[2018-06-05 16:20] LABS: Glucose,Whole Blood 276 mg/dL (75-99)
--- NOTE | 2018-06-05 18:04 | PN ---
PROGRESS NOTE DATE OF SERVICE: 06/05/2018 Patient is seen for followup for hyperkalemia and acute kidney injury. Her renal function has improved significantly, with creatinine down to 0.8 mg/dL. UA is highly suggestive of underlying urinary tract infection. Urine culture is currently pending. Patient is maintained on antibiotics. She has been transferred out of the ICU. Blood pressure is staying slightly on the lower side. No significant complaints this morning. On examination, blood pressure this morning was 132/67, heart rate 61 per minute. Patient is afebrile. EXAMINATION OF THE HEART: S1 and S2. EXAMINATION OF LUNGS: Good air entry bilaterally. ABDOMEN: Soft, obese. Examination of lower extremities shows no significant edema. Labs show sodium 135, potassium 4.6, BUN 30, serum creatinine 0.84. ASSESSMENT: 1. Acute kidney injury, prerenal, currently improved with IV hydration. Patient remains on IV fluids. I will decrease IV fluids tomorrow. She is encouraged to increase her oral intake. Patient is at 100 mL/hour. We can decrease it to 60 mL/hour. 2. Hyperkalemia associated with acute kidney injury, use of LINDSAY inhibitors, currently improved. Decrease Lasix. Repeat labs in a.m. I will decrease the lisinopril to 5 mg daily. 3. Hypertension. Blood pressure slightly on the lower side. Decrease lisinopril to 5 mg daily. 4. Type 2 diabetes, currently controlled. PLAN: Decrease Lasix to 40 mg once a day and decrease IV fluids to 60 mL/hour. Repeat labs in a.m. I will also decrease the lisinopril to 5 mg daily and monitor the blood pressure. MMODL / IJN: [id number] /
[2018-06-05 20:40] LABS: Glucose,Whole Blood 288 mg/dL (75-99)
[2018-06-05] MEDS ORDERED: INSULIN DETEMIR (LEVEMIR) 100 UNIT/ML SYR SQ SCH (21:00)
[2018-06-05] MEDS: AZTREONAM 2 GM in SODIUM CHLORIDE 0.9% 100 ML IVPB SCH (21:49)
[2018-06-05] MEDS: INSULIN DETEMIR (LEVEMIR) 100 UNIT/ML SYR SQ SCH (21:50)
--- NOTE | 2018-06-05 22:10 | CONS ---
CONSULTATION DATE OF SERVICE: 06/04/2018. REASON FOR CONSULT: Hyperkalemia. HISTORY OF PRESENT ILLNESS: The patient is a 73-year-old female with history of hypertension. She presented to the hospital with complaints of weakness. She was actually complaining of pain and has been in tears on and off. The patient had slipped out of her chair and hit her head and presented for evaluation of a fall. The she was found to have a potassium of 6.9 on 06/03/2018. The patient received IV treatment for the potassium. She was also on a LINDSAY inhibitors at home in the form of Zestril which was discontinued. Serum creatinine was elevated at 1.3. Her previous creatinine was 0.87 on 04/12/2018. When patient came into the hospital her blood pressure was on the lower side with systolic in the 90s. Her potassium since then has improved and was 4.7 later on 06/03, and this morning it was 4.6 mEq/L. The patient is maintained on IV fluids. She is continued on the LINDSAY inhibitors for now. PAST MEDICAL HISTORY: Hypertension, type 2 diabetes, maintained on insulin, coronary artery disease, asthma, chest pain, history of CVA, hyperlipidemia, obstructive sleep apnea and hypothyroidism. PAST SURGICAL HISTORY: Hysterectomy for cervical cancer, cholecystectomy, cardiac catheterization, coronary stent placement, bladder surgery, cataract surgery, parathyroidectomy, details not available. EGD, colonoscopy. SOCIAL HISTORY: Negative for smoking. No history of anxiety or depression. MEDICATIONS: Medications at home prior to admission included Klonopin, Ultram, Lipitor, Neurontin, Tylenol, Depakote, Celexa, Zestril, Lopressor, Ditropan, Protonix, insulin, Lasix, Nitrostat, iron. ALLERGIES: INCLUDE LATEX, CODEINE, MORPHINE, PENICILLIN, DARVOCET AND PPD. PHYSICAL EXAMINATION: Patient is comfortable, awake, not in any acute distress. Blood pressure this morning was 139/36, heart rate 53 per minute. Patient is afebrile. Examination of the heart S1, S2. Examination of the lungs bilateral breath sounds are heard. Abdomen is soft, nontender. Examination of lower extremities shows no significant edema. DIFFERENTIAL SPECIALIST exam is grossly intact. The patient is obese. LABS SHOW: Sodium 138, potassium 4.6, CO2 37, BUN 49, serum creatinine 1.01. Hemoglobin was 10.1 g/dL. ASSESSMENT: 1. Acute kidney injury associated with hypotension and some degree of volume depletion, currently improved. Creatinine down to 1.0 from 1.3. 2. Hyperkalemia associated with acute kidney injury, use of LINDSAY inhibitors along with hypotension and hypoperfusion. The patient remains on LINDSAY inhibitors. Potassium is significantly improved. She is maintained on IV fluids. I will decrease the fluids. We may continue with the LINDSAY inhibitors for now. 3. Hypertension. Blood pressure is controlled. Blood pressure is slightly on the lower side. If her blood pressure remains low, I will decrease the lisinopril. 4. Type 2 diabetes. 5. Dyslipidemia. 6. Bradycardia, somewhat improved. 7. Obstructive sleep apnea. PLAN: Decreases lisinopril if blood pressure remains low. Decrease IV fluids tomorrow. Encourage increased oral intake. The patient may continue with the Lasix for now as it will help with the hyperkalemia as well. Thank you for this consultation. We will continue to follow the patient with you during this hospitalization. MMODL / IJN: [id number] /
[2018-06-06] MEDS: SODIUM CHLORIDE 0.9% 1,000 ML IV SCH ×2 (04:06→18:17)
[2018-06-06] MEDS: HEPARIN SODIUM,PORCINE 5,000 UNIT/ML 1 ML VIAL SQ SCH ×3 (04:29→21:32)
--- NOTE | 2018-06-06 05:19 | CONS ---
CONSULTATION DATE OF SERVICE: 06/05/2018 REASON FOR CONSULTATION: Urinary tract infection. HISTORY OF PRESENT ILLNESS: The patient is a 73-year-old female who was brought into the ER at [facility] on 06/03/2018 after apparently the patient did fall out of her electric chair. She slid out of the chair and hit her head and has been on the floor for 30 minutes. The patient having difficulty taking care of herself. The patient subsequently has been brought into the ER for further evaluation. Upon arrival, the patient noticed to have mild kidney injury with elevated potassium. X-rays were negative for any acute fracture. She was initially treated at ICU. She also has a Solitario catheter placed during this admission. Initial admission UA was negative. The patient did spike a fever of 102 degrees Fahrenheit around midnight. The patient did have blood cultures obtained which are currently pending. The patient had been started on Levaquin with multiple antibiotic allergies. Infectious Disease was consulted for further recommendation regarding urinary tract infection and antibiotic today. At the time of evaluation earlier this afternoon, the patient says she wants to . The patient denies any headache to me. She is complaining of some shortness of breath. No chest pain. No nausea, no vomiting, no abdominal pain and no diarrhea. REVIEW OF SYSTEMS: Positive points have been mentioned in HPI. Rest of the systems are negative. PAST MEDICAL HISTORY: Asthma, coronary artery disease, angina, CVA, diabetes mellitus, gastroesophageal reflux disease, hyperlipidemia, hypertension, memory impairment. PAST SURGICAL HISTORY: Bladder surgery, cholecystectomy, heart catheterization with stent, hysterectomy, bilateral cataracts removed, partial parathyroidectomy. SOCIAL HISTORY: No history of smoking, drinking or drug use. FAMILY HISTORY: Brother has history of coronary artery disease, father history of prostate cancer and colon cancer and mother history of COPD. ALLERGIES: Multiple medications include PENICILLIN reported no anaphylaxis. No clear history if the patient used any cephalosporins. MEDICATIONS: Medications include the patient is currently on Tylenol, Ventolin, DuoNeb, aspirin, Lipitor, Dulcolax, vitamin D3, Celexa, Klonopin, iron sulfate, Lasix, Neurontin, heparin, NovoLog, Levemir, Zestril, Lopressor, morphine sulfate, Narcan, Protonix, prednisone, Ultram. PHYSICAL EXAMINATION: On examination, blood pressure is 126/74 with a pulse of 63, temperature 98.2, T-max 102. She is 97% on 4 L nasal cannula. General description is an elderly female lying in bed in no distress. No tachypnea or accessory muscle of respiration use. HEENT examination shows slight pallor. No scleral icterus. Oral mucous membrane is dry. NECK: Trachea central. No thyromegaly. LUNGS: Unlabored breathing, clear to auscultation anteriorly. No wheeze or crackle. HEART: S1, S2. Regular rate and rhythm. ABDOMEN: Soft, no tenderness. No guarding or rigidity. EXTREMITIES: With diffuse swelling. obvious drainage. NEUROLOGICAL: Awake, alert, oriented x3. Mood and affect normal. LABS: Hemoglobin 9.9, white count 10.8. BUN of 30, creatinine 0.84. Electrolytes have been normal. Urine is positive, was turbid, large leukocyte esterases, with more than 182 WBCs, many bacteria. Influenza serology was negative. Chest x-ray possible pulmonary hypertension. CT of the lumbosacral spine showed evidence of disc herniation. DIAGNOSTIC IMPRESSION AND PLAN: 1. Patient with fever of 102 degrees Fahrenheit in this patient admitted to the hospital after she did have a fall and she did notice to have some and Solitario catheter has been placed during this , possible risk factor for this urinary tract infection and likely from enteric gram-negative pathogen as no other clinical focus of infection. The patient's chest x-ray is negative for a pneumonia. No significant clinical examination of the leg as well. Abdomen was soft. No evidence of any cellulitis. Influenza serology was negative. 2. The patient with multiple antibiotic allergies especially PENICILLIN limit the number of antibiotics that could be safe to use. PLAN: 1. We will add Azactam 2 grams q.12 hours. Continued Levaquin. 2. Gentle IV fluids. 3. We will adjust antibiotic further after the patient's culture report. Thank you for this consultation. Will follow this patient along with you. MMODL / IJN: [id number] /
[2018-06-06 06:06] LABS: Glucose,Whole Blood 126 mg/dL (75-99)
[2018-06-06] MEDS: INSULIN ASPART (NovoLOG) 100 UNIT/ML VIAL SQ SCH ×4 (06:31→21:33)
[2018-06-06 07:24] LABS: Basophils % (A) 0 %; Eosinophils # (A) 0.2 k/uL (0-0.7); Eosinophils % (A) 3 %; HCT 27.9 % (34.0-46.0); HGB 8.9 gm/dL (11.4-16.0); Lymphocytes # (A) 1.4 k/uL (1.0-4.8); Lymphocytes % (A) 19 %; MCH 31.9 pg (25.0-35.0); MCHC 31.8 g/dL (31.0-37.0); MCV 100.4 fL (80.0-100.0); Mean Platelet Volume 7.6; Monocytes # (A) 0.6 k/uL (0-1.0); Monocytes % (A) 8 %; Neutrophils % (A) 68 %; Platelet Count 115 k/uL (150-450); RBC 2.78 m/uL (3.80-5.40); RDW 13.2 % (11.5-15.5); WBC 7.3 k/uL (3.8-10.6)
[2018-06-06 07:41] LABS: Calcium 8.6 mg/dL (8.4-10.2); Magnesium 2.1 mg/dL (1.6-2.3); Phosphorus 3.3 mg/dL (2.5-4.5); Potassium 4.2 mmol/L (3.5-5.1)
[2018-06-06] MEDS: ATORVASTATIN 40 MG TAB PO SCH (08:12)
[2018-06-06] MEDS: ASPIRIN 81 MG PO SCH (08:12)
[2018-06-06] MEDS: LISINOPRIL 5 MG TAB PO SCH (08:12)
[2018-06-06] MEDS: CITALOPRAM HYDROBROMIDE 20 MG TAB PO SCH (08:12)
[2018-06-06] MEDS: clonazePAM 1 MG TAB PO SCH ×3 (08:12→21:33)
[2018-06-06] MEDS: GABAPENTIN 100 MG CAP PO SCH ×2 (08:12→21:32)
[2018-06-06] MEDS: predniSONE 20 MG TAB PO SCH (08:12)
[2018-06-06] MEDS: FUROSEMIDE 40 MG TAB PO SCH (08:12)
[2018-06-06] MEDS: IPRATROPIUM-ALBUTEROL 3 ML NEB INHALATION PRN ×2 (08:47→18:43)
[2018-06-06 11:19] LABS: Glucose,Whole Blood 121 mg/dL (75-99)
[2018-06-06] MEDS: PANTOPRAZOLE 40 MG/10 ML VIAL IV SCH (11:33)
[2018-06-06] MEDS: CHOLECALCIFEROL 1,000 UNIT TAB PO SCH (11:45)
[2018-06-06] MEDS: FERROUS SULFATE 325 MG TAB PO SCH (11:45)
--- NOTE | 2018-06-06 12:18 | P.PN ---
Subjective Progress Note Date: 06/06/18 06/06/2018: Patient seen and examined. Patient is resting comfortably. She is on 2 L nasal cannula. The patient arouses and states that she is doing fine. She states she is tired. She complaining of pain all over. Objective - Vital Signs Vital signs: Vital Signs Temp 98 F 06/06/18 08:00 Pulse 64 06/06/18 08:58 Resp 18 06/06/18 08:00 BP 128/60 06/06/18 08:00 Pulse Ox 100 06/06/18 08:00 Intake & Output 06/05/18 06/06/18 06/06/18 18:59 06:59 18:59 Intake Total 992 300 120 Output Total 2645 1400 700 Balance -5363 -1100 -580 Weight 146 kg Intake: IV 500 300 Sodium Chloride 0.9% 1, 500 300 000 ml @ 60 mls/hr IV . [id number] [facility] Rx#:[id number] Oral 492 120 Output: Urine 2645 1400 700 Uretheral (Solitario) 1400 Other: Voiding Method Indwelling Catheter Indwelling Catheter - Exam Gen.: Patient is alert and oriented 3, morbidly obese, tearful Cardiovascular: Regular rate and rhythm, S1/S2, bradycardic Lungs: Diminished breath sounds at the bases otherwise clear Abdomen: Soft nontender nondistended positive bowel sounds Extremities: Trace edema - Labs CBC & Chem 7: 06/06/18 06:23 06/06/18 06:23 Labs: Abnormal Lab Results - Last 24 Hours (Table) 06/05/18 06/05/18 06/06/18 Range/Units 16:17 20:35 06:00 RBC (3.80-5.40) m/uL Hgb (11.4-16.0) gm/dL Hct (34.0-46.0) % MCV (80.0-100.0) fL Plt Count (150-450) k/uL Carbon Dioxide (22-30) mmol/L BUN (7-17) mg/dL Glucose (74-99) mg/dL POC Glucose (mg/dL) 276 H 288 H 126 H (75-99) mg/dL 06/06/18 06/06/18 06/06/18 Range/Units 06:23 06:23 11:13 RBC 2.78 L (3.80-5.40) m/uL Hgb 8.9 L (11.4-16.0) gm/dL Hct 27.9 L (34.0-46.0) % MCV 100.4 H (80.0-100.0) fL Plt Count 115 L (150-450) k/uL Carbon Dioxide 38 H (22-30) mmol/L BUN 28 H (7-17) mg/dL Glucose 127 H (74-99) mg/dL POC Glucose (mg/dL) 121 H (75-99) mg/dL Microbiology - Last 24 Hours (Table) 06/05/18 02:20 Blood Culture - Preliminary Blood No Growth after 24 hours 06/05/18 01:45 Urine Culture - Preliminary Urine,Catheterized Assessment and Plan Assessment: Acute on chronic hypoxic and hypercapnic respiratory failure TAMRA/OHS noncompliant with CPAP Moderate pulmonary hypertension with RVSP 46 mmHg Asthma, unknown type Hyperkalemia, resolved KAMILAH, improving Morbid obesity Hyponatremia, dehydration, resolved Generalized weakness and debility Fall from sitting History of CVA DM2 uncontrolled Leukocytosis, resolved Mild PCM GERD Dyslipidemia Hypertension ASCAD Chronic pain with DDD History of gastric ulcers and GIB IBS Hypothyroid History of cervical cancer O2 to maintain saturation > or - 90% Patient appears to have chronic bradycardia which is asymptomatic Duoneb PRN Nephrology recommendations Monitor electrolytes, renal function, urine output Patient has been intolerant of CPAP BS control, insulin sliding scale and Levemir No need for systemic steroids from pulmonary standpoint Case management and social work for placement issues GI and DVT prophylaxis: Heparin and Protonix IS and pulmonary hygiene OOB TID, PT and OT ABX per ID Decrease IVF, Lisinopril, and Lasix per nephro
--- NOTE | 2018-06-06 15:02 | PN ---
PROGRESS NOTE DATE OF SERVICE: 06/06/2018 REASON FOR FOLLOWUP VISIT: Catheter-associated urinary tract infection. INTERVAL HISTORY: The patient overall fever pattern has improved, no fever has been recorded over the last 24 hours. Patient is breathing comfortably, denies having any chest pain. Occasional cough. No abdominal pain, no diarrhea. PHYSICAL EXAMINATION: Blood pressure 122/60 with a pulse of 83, temperature 98, he is 100% 2 L nasal cannula. General description is an elderly female, lying in bed in no distress. RESPIRATORY SYSTEM: Unlabored breathing, clear to auscultation anteriorly. HEART: S1, S2. Regular rate and rhythm. ABDOMEN: Soft, no tenderness. LABS: Hemoglobin 8.1, white count of 7.3, BUN of 28, creatinine 0.92. Urine culture currently pending. Blood cultures have been negative so far. DIAGNOSTIC IMPRESSION AND PLAN: Patient with a fever, source is likely catheter-associated urinary intact infection on admission. Urine culture currently pending. The patient does have multiple antibiotic allergies. Currently being treated with and Levaquin adjusting antibiotics for the results based on the culture report. Continue supportive care. MMODL / IJN: [id number] /
[2018-06-06] MEDS: METOPROLOL TARTRATE 25 MG TAB PO SCH ×2 (15:35→21:33)
[2018-06-06] MEDS: AZTREONAM 2 GM in SODIUM CHLORIDE 0.9% 100 ML IVPB SCH ×2 (15:35→21:33)
--- NOTE | 2018-06-06 15:35 | PN ---
PROGRESS NOTE This patient is a 73-year-old white female with hyperkalemia and renal insufficiency, improving from medical standpoint. Waiting for back injections, possibly, due to severe lumbar disc disease and falls, and clearance from renal physician. She will be discharged. CARDIOVASCULAR: S1, S2. PSYCH: Anxious and nervous. GI: Distended, obese. HEMATOLOGY: Negative Homans. ASSESSMENT: 1. Hyperkalemia. 2. Renal insufficiency. 3. Coronary artery disease. 4. Chronic obstructive pulmonary disease. 5. Insulin-dependent diabetes mellitus. 6. Morbid obesity. Continue current treatments. Possible injection to the back prior to discharge to a rehab center. Continue treatments for any infections. MMODL / IJN: [id number] /
[2018-06-06] MEDS: traMADol 50 MG TAB PO PRN ×2 (15:42→23:54)
[2018-06-06] MEDS: LEVOFLOXACIN 250MG-D5W PMX 250 MG in DEXTROSE/WATER 1 50ML.BAG IVPB SCH (15:42)
--- NOTE | 2018-06-06 16:20 | PN ---
PROGRESS NOTE Patient is seen for followup for hyperkalemia and acute kidney injury. Renal function has improved. Serum potassium has been within normal range as well. On examination this morning, patient was comfortable. She denied any significant complaints. Blood pressure this morning was 128/60, heart rate of 64 per minute. Patient is afebrile. EXAMINATION OF THE HEART: S1 and S2. EXAMINATION OF LUNGS: Bilateral breath sounds are heard. ABDOMEN: Soft, non-tender. Examination of lower extremities shows no significant edema. ASSEMBLER SEAT exam is grossly intact. The patient did have a temperature of 102 degrees yesterday. Labs show sodium 137, potassium 4.2, chloride 98, BUN 28, serum creatinine 0.92. ASSESSMENT: 1. Acute kidney injury, prerenal, currently improved. 2. Hyperkalemia associated with acute kidney injury, use of LINDSAY inhibitors, now resolved. Lisinopril has been decreased. 3. Hypertension. Blood pressure is controlled. 4. Type 2 diabetes. 5. Urinary tract infection with urine culture growing gram-negative bacilli, maintained on antibiotics. PLAN: Continue with once-a-day dosing of Lasix. Continue with current dose of lisinopril. Continue with antibiotics for urinary tract infection. MMODL / IJN: [id number] /
[2018-06-06 16:33] LABS: Glucose,Whole Blood 328 mg/dL (75-99)
[2018-06-06 21:11] LABS: Glucose,Whole Blood 344 mg/dL (75-99)
[2018-06-06] MEDS: INSULIN DETEMIR (LEVEMIR) 100 UNIT/ML SYR SQ SCH (21:33)
[2018-06-07] MEDS: ACETAMINOPHEN TAB 325 MG TAB PO PRN ×2 (04:36→19:51)
[2018-06-07] MEDS: HEPARIN SODIUM,PORCINE 5,000 UNIT/ML 1 ML VIAL SQ SCH ×3 (04:37→21:23)
[2018-06-07 05:56] LABS: Glucose,Whole Blood 113 mg/dL (75-99)
[2018-06-07] MEDS: INSULIN ASPART (NovoLOG) 100 UNIT/ML VIAL SQ SCH ×4 (06:04→21:24)
[2018-06-07] MEDS: AZTREONAM 2 GM in SODIUM CHLORIDE 0.9% 100 ML IVPB SCH (08:26)
[2018-06-07] MEDS: GABAPENTIN 100 MG CAP PO SCH ×2 (08:27→21:23)
[2018-06-07] MEDS: CITALOPRAM HYDROBROMIDE 20 MG TAB PO SCH (08:27)
[2018-06-07] MEDS: LISINOPRIL 5 MG TAB PO SCH (08:27)
[2018-06-07] MEDS: predniSONE 20 MG TAB PO SCH (08:27)
[2018-06-07] MEDS: FUROSEMIDE 40 MG TAB PO SCH (08:27)
[2018-06-07] MEDS: ATORVASTATIN 40 MG TAB PO SCH (08:27)
[2018-06-07] MEDS: PANTOPRAZOLE 40 MG/10 ML VIAL IV SCH (08:27)
[2018-06-07] MEDS: ASPIRIN 81 MG PO SCH (08:28)
[2018-06-07] MEDS: METOPROLOL TARTRATE 25 MG TAB PO SCH (08:28)
[2018-06-07] MEDS: clonazePAM 1 MG TAB PO SCH ×3 (08:28→21:24)
[2018-06-07 08:40] VITALS: RESP 18
--- NOTE | 2018-06-07 11:16 | P.PAINCN ---
History of Present Illness - Reason for Consult Consult date: 06/07/18 Requesting physician: Chris Yi - Chief Complaint Back pain - History of Present Illness Mrs. Garvin is a 73-year-old female was admitted to the hospital. Were consul andree for back pain. She 73 result of the long history of back pain. She reports she's had this back pain for greater than 10 years. She reports she lives in a facility and is bedridden for the most part secondary to her morbid obesity and pain. She reports that none of her symptoms are new. She complains of back pain going across the low back and into her legs. She reports pain in her lower extremities and weakness. She is unable to walk secondary to her obesity. She reports that the past for your she's had bowel or bladder incontinence and the is dependent on a diaper for most of the time. She reports that she takes narcotics on a daily basis at the facility. She denies having any back surgery on her back in the past. She denies having injections in the past as well. She has a CAT scan done which shows significant amount of morbidity of the lumbar spine and is likely a surgical candidate but due to her body habitus she is not a surgical candidate. Past Medical History Past Medical History: Asthma, Coronary Artery Disease (CAD), Cancer, Chest Pain / Angina, CVA/TIA, Diabetes Mellitus, GERD/Reflux, Hyperlipidemia, Hypertension, Memory Impairment, Pneumonia, Sleep Apnea/CPAP/BIPAP Additional Past Medical History / Comment(s): IDDM type II, TAMRA unable to tolerate CPAP, bronchitis, chronic low back pain- bulging discs, scoliosis, urinary incontinence, IBS, gastric ulcers, hiatal hernia, TIA 3 yrs roughly ago- memory impairment, uses O2 @2l continuously, hypothyroid, hemorrhoids, anemia, Cervical CA hysterectomy, sinus problems at times. History of Any Multi-Drug Resistant Organisms: MRSA Year Discovered:: 04/02/11 MDRO Source:: L chest/L lower leg/ankle Past Surgical History: Bladder Surgery, Cholecystectomy, Heart Catheterization, Heart Catheterization With Stent, Hysterectomy Additional Past Surgical History / Comment(s): PCI with a total of 5 stents per pt with last stent placed 06/29/16, partial parathyroidectomy, bilateral cataracts removed, I and D of L chest wall abscess and L ankle wound, bladder surgery with implant of stimulator system 02/2010, EGD/colonoscoy. Past Anesthesia/Blood Transfusion Reactions: No Reported Reaction Additional Past Anesthesia/Blood Transfusion Reaction / Comm: Pt states she has received blood in the past without reaction. Date of Last Stent Placement:: 06/29/16 Past Psychological History: Anxiety, Depression Additional Psychological History / Comment(s): [facility]. USES [facility] . HOME C[facility] FROM [facility]FOR MEDICATION ADMINISTRATION. O2 at 2L/NC ATC. Staff manages her medications. She goes to a [employer] [place] for meals usually- Patient currently resides at [facility] for rehab Smoking Status: Never smoker Past Alcohol Use History: None Reported Past Drug Use History: None Reported - Past Family History Brother(s) Family Medical History: Coronary Artery Disease (CAD) Father Family Medical History: Cancer, Coronary Artery Disease (CAD) Additional Family Medical History / Comment(s): Father had prostate cancer. Mother Family Medical History: Asthma, COPD Medications and Allergies Home Medications Medication Instructions Recorded Confirmed Type Citalopram Hydrobromide [CeleXA] 40 mg PO DAILY 09/20/14 06/04/18 History clonazePAM [KlonoPIN] 1 mg PO TID 09/20/14 06/04/18 History Ferrous Sulfate [Iron (65 MG 325 mg PO DAILY tab 10/08/15 06/04/18 Rx Elemental)] traMADol HCl [Ultram] 50 mg PO Q3H PRN 10/19/16 06/04/18 History Nitroglycerin Sl Tabs [Nitrostat] 0.4 mg SUBLINGUAL Q5M PRN #30 tab 12/23/16 06/04/18 Rx Atorvastatin [Lipitor] 40 mg PO HS 01/30/17 06/04/18 History Aspirin EC [Ecotrin Low Dose] 81 mg PO DAILY 12/14/17 06/04/18 History Gabapentin [Neurontin] 100 mg PO BID 12/14/17 06/04/18 History Isosorbide Mononitrate ER [Imdur] 60 mg PO DAILY 12/14/17 06/04/18 History Acetaminophen [Tylenol] 325 mg PO BID 01/16/18 06/04/18 History Cholecalciferol [Vitamin D3] 2,000 unit PO DAILY tab 03/19/18 06/04/18 Rx Metoprolol Tartrate [Lopressor] 25 mg PO BID tab 03/19/18 06/04/18 Rx Pantoprazole [Protonix] 40 mg PO DAILY@0730 tablet. 03/19/18 06/04/18 Rx Albuterol Sulfate [Proair Hfa] 1 - 2 puff INHALATION RT-Q6H PRN 06/04/18 06/04/18 History Furosemide [Lasix] 40 mg PO BID 06/04/18 06/04/18 History INSULIN ASPART (NovoLOG) [NovoLOG 6 unit SQ ACHS 06/04/18 06/04/18 History (formulary)] Insulin Glargine,Hum.rec.anlog 50 unit SQ HS 06/04/18 06/04/18 History [Lantus Solostar] Lisinopril [Zestril] 20 mg PO DAILY 06/04/18 06/04/18 History predniSONE 20 mg PO DAILY 06/04/18 06/04/18 History Allergies Allergy/AdvReac Type Severity Reaction Status Date / Time latex Allergy Mild Rash/Hives Verified 06/04/18 09:03 codeine Allergy Anaphylaxis Verified 06/04/18 09:03 morphine Allergy Hallucinati Verified 06/04/18 09:03 ons Penicillins Allergy Anaphylaxis Verified 06/04/18 09:03 propoxyphene napsylate Allergy Anaphylaxis Verified 06/04/18 09:03 [From Darvocet-N 100] tuberculin, purified protein Allergy Rash/Hives Verified 06/04/18 09:03 deriva [tuberculin,purif.prot.deriv.] adhesive AdvReac Mild Rash/Hives, Verified 06/04/18 09:03 W/ TAPES, CAN USE PAPER TAPE Physical Exam Vitals: Vital Signs Temp Pulse Pulse Pulse Resp BP Pulse Ox 06/07/18 08:31 97.7 F 45 L 18 97/45 97 06/07/18 04:00 98.3 F 50 L 15 119/55 99 06/07/18 00:00 57 L 15 06/06/18 23:49 98.3 F 57 L 15 137/56 95 06/06/18 20:00 98.2 F 65 15 114/53 97 06/06/18 18:52 68 06/06/18 18:43 66 06/06/18 16:00 98.4 F 61 20 134/58 100 06/06/18 12:00 97.6 F 52 L 18 100/41 96 Intake and Output 06/06/18 06/07/18 06/07/18 22:59 06:59 14:59 Intake Total 222 360 Output Total 2200 3850 Balance -1977 -3849 360 Intake: Oral 222 360 Output: Urine 21990 Other: Voiding Method Indwelling Catheter Indwelling Catheter Indwelling Catheter Weight 146 kg General: Awake and alert oriented 3 no distress, morbidly obese, bed ridden Respiratory exam: No audible wheezing no accessory muscle usage, nasal oxygen in place Cardiovascular exam: regular rate, palpable bilateral pulses, positive lower extremity edema Abdominal exam: Obese, No distention nontender to palpation Cervical spine: Unable to assess alignment. Range of motion is slightly limited in all planes, Jensen's is negative. Lumbar spine: Unable to assess the lumbar spine secondary to body habitus and recumbency. Patient unable to move significantly. Can move her legs. She can wiggle her toes. She can bend her knees. Strength is 4 out of 5 in bilateral lower extremities. Sacroiliac joints: Nontender to palpation, AYLA is negative, Gaenselon negative Neuro exam: Normal sensation in bilateral upper extremities, deep tendon reflexes are 2+ bilateral upper extremities. Normal sensation in bilateral lower extremities. Deep tendon reflexes are 1 + in lower extremities at the patella and Achilles reflex. Sensation is normal in lower extremities. Psych exam: Cooperative, appropriate mood Results CBC & Chem 7: 06/06/18 06:23 06/06/18 06:23 Labs: Abnormal Lab Results - Last 24 Hours (Table) 06/06/18 06/06/18 06/06/18 Range/Units 11:13 16:20 21:09 POC Glucose (mg/dL) 121 H 328 H 344 H (75-99) mg/dL 06/07/18 Range/Units 05:39 POC Glucose (mg/dL) 113 H (75-99) mg/dL Microbiology - Last 24 Hours (Table) 06/05/18 01:45 Urine Culture - Final Urine,Catheterized Escherichia coli 06/05/18 02:20 Blood Culture - Preliminary Blood No Growth after 48 hours Assessment and Plan Assessment: #1 lumbar spinal stenosis #2 lumbar facet degeneration #3 morbid obesity Plan: After examining the patient and discussing the findings of my exam as well as her medical records I discussed with the patient that given the chronicity of the symptoms I do not believe any injections will be necessary on today's visit. I do not believe that injections would offer any relief. I do not believe that the injections will increase her range of motion and her increase in her mobility. The patient is on chronic opioid therapy and ending she is a good candidate to continue those at this time. The patient would benefit from significant weight loss to improve her overall mobility. She is also diabetic and it do not believe any steroids would offer any benefit in terms of her pain and will likely derail her blood sugars for the next couple weeks. Feel free to reach out to me if you have any questions PQRS Measure Charge Sheet Measure #130: Documentation of Current Meds in Medical Chart: Patient's medications documented in chart Measure #226: Tobacco Use: Screen & Cessation Intervention: Pt not a tobacco user Measure #111: Pneumonia Vaccination: Pneumococcal vaccine administered or previously received Measure #47: Advance Care Plan: Advance care planning discussed & documented, plan or surrogate given Measure #412: Opioid Treatment Agreement: No documentation of signed opioid treatment agreement Measure #317: Preventitive Care & Scrn High Bld Press & F/U: Pre-hypertensive or hypertensive BP documented, pt will f/u with PCP Measure #128: Body Mass Index (BMI) Screening & Follow-up: BMI documented ABOVE normal parameters - f/u documented Measure #131: Pain Assessment & Follow-up: Pain positive & plan documented Measure #431: Unhealthy Alcohol Use Preventative Care & Scrn: Patient not identified as an unhealthy alcohol user PQRS Narrative: Smoking Status Never smoker Do You Want the Pneumonia Vaccine Up to Date Vaccine AT THIS TIME? Blood Pressure [Right Arm] 97/45 Blood Pressure 117/95 Pain Intensity [Back] 0 Pain Intensity [Head] 0 Pain Intensity 0 Pain Scale Used Numeric (1 - 10) Scale Used Numeric (1 - 10) Home Medications: Ambulatory Orders Citalopram Hydrobromide [CeleXA] 40 mg PO DAILY 09/20/14 clonazePAM [KlonoPIN] 1 mg PO TID 09/20/14 Ferrous Sulfate [Iron (65 MG Elemental)] 325 mg PO DAILY tab 10/08/15 traMADol HCl [Ultram] 50 mg PO Q3H PRN 10/19/16 Nitroglycerin Sl Tabs [Nitrostat] 0.4 mg SUBLINGUAL Q5M PRN #30 tab 12/23/16 Atorvastatin [Lipitor] 40 mg PO HS 01/30/17 Aspirin EC [Ecotrin Low Dose] 81 mg PO DAILY 12/14/17 Gabapentin [Neurontin] 100 mg PO BID 12/14/17 Isosorbide Mononitrate ER [Imdur] 60 mg PO DAILY 12/14/17 Acetaminophen [Tylenol] 325 mg PO BID 01/16/18 Cholecalciferol [Vitamin D3] 2,000 unit PO DAILY tab 03/19/18 Metoprolol Tartrate [Lopressor] 25 mg PO BID tab 03/19/18 Pantoprazole [Protonix] 40 mg PO DAILY@0730 tablet. 03/19/18 Albuterol Sulfate [Proair Hfa] 1 - 2 puff INHALATION RT-Q6H PRN 06/04/18 Furosemide [Lasix] 40 mg PO BID 06/04/18 INSULIN ASPART (NovoLOG) [NovoLOG (formulary)] 6 unit SQ ACHS 06/04/18 Insulin Glargine,Hum.rec.anlog [Lantus Solostar] 50 unit SQ HS 06/04/18 Lisinopril [Zestril] 20 mg PO DAILY 06/04/18 predniSONE 20 mg PO DAILY 06/04/18
[2018-06-07 11:27] LABS: Glucose,Whole Blood 122 mg/dL (75-99)
[2018-06-07] MEDS: SODIUM CHLORIDE 0.9% 1,000 ML IV SCH (12:01)
[2018-06-07] MEDS: traMADol 50 MG TAB PO PRN (12:01)
[2018-06-07] MEDS: CHOLECALCIFEROL 1,000 UNIT TAB PO SCH (12:02)
[2018-06-07] MEDS: FERROUS SULFATE 325 MG TAB PO SCH (12:02)
--- NOTE | 2018-06-07 12:27 | PN ---
PROGRESS NOTE SUBJECTIVE: A 73-year-old white female comes in the hospital after falling. She has an E coli positive urine culture. Awaiting final sensitivities prior to being discharged. She had a seizure, so will not give her back injection for lumbar disc herniation at this time. She will continue on her current home medications and get PT, OT, and be sent to [facility] as soon as the final urine culture and sensitivities to medications are ready. Temp 97.7, pulse is in the 40s to 50s, respiratory rate 16 to 18, blood pressure is 90s to 119/40s to 50s, O2 is 97% on room air. CARDIOVASCULAR: S1, S2. Lungs are scattered wheeze. Decreased breath sounds. HEMATOLOGY: Negative Homans. PSYCH: Fair mood and affect. Sugars are mid 100s up to 300s. Creatinine is 0.92, BUN is 137, potassium 4.2, magnesium is 2.1, hemoglobin is 8.9. Will give her some injections until she is stable for discharge, the urine culture finality on the cultures. MMODL / IJN: [id number] /
[2018-06-07] MEDS: SODIUM FERRIC GLUCONAT-SUCROSE 125 MG in SODIUM CHLORIDE 0.9% 100 ML IVPB SCH (12:32)
[2018-06-07] MEDS: LEVOFLOXACIN 250MG-D5W PMX 250 MG in DEXTROSE/WATER 1 50ML.BAG IVPB SCH (16:33)
[2018-06-07 16:36] LABS: Glucose,Whole Blood 305 mg/dL (75-99)
--- NOTE | 2018-06-07 16:39 | PN ---
PROGRESS NOTE Patient is seen for followup for acute kidney injury and hyperkalemia. Her renal failure has resolved. Patient is maintained on Lasix to help with the hyperkalemia. The dose of the LINDSAY inhibitors was decreased as well. Blood pressure has not been running high; in fact, it is on the lower side. Patient was also found to have E coli urinary tract infection, for which she is maintained on antibiotics. On examination today, patient feels well. This morning blood pressure was 97/45, heart rate about 53 per minute. Patient is afebrile. EXAMINATION OF THE HEART: S1 and S2. EXAMINATION OF LUNGS: Bilateral breath sounds are heard. ABDOMEN: Soft, obese, non-tender. Examination of lower extremities shows chronic skin changes with chronic edema. 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 Labs are not available from today. Serum creatinine was 0.9 yesterday. ASSESSMENT: 1. Acute kidney injury, currently resolved. 2. Hyperkalemia associated with acute kidney injury, currently resolved. I will continue with once-a-day dosing of Lasix, and the lisinopril has been decreased to 5. I will check labs today, as her heart rate seems to have dipped down again into the 45 range. 3. Bradycardia, improved since admission. However, heart rate has dipped again into below-50 range. I will hold off on the metoprolol for now and we will repeat labs today. 4. Iron deficiency, maintained on IV iron. 5. Urinary tract infection with Escherichia coli, maintained on aztreonam. PLAN: Check labs today. Continue with current dose of Lasix and hold off on lisinopril if blood pressure remains below 100. MMODL / IJN: [id number] /
[2018-06-07 16:53] LABS: Anion Gap 6 mmol/L; Blood Urea Nitrogen 35 mg/dL (7-17); Carbon Dioxide 30 mmol/L (22-30); Chloride 100 mmol/L (98-107); Glucose 296 mg/dL (74-99); Potassium 5.5 mmol/L (3.5-5.1); Sodium 136 mmol/L (137-145)
[2018-06-07] MEDS: MEROPENEM 1 GM in SODIUM CHLORIDE 0.9% 100 ML IVPB SCH (19:51)
[2018-06-07 20:58] LABS: Glucose,Whole Blood 332 mg/dL (75-99)
[2018-06-07] MEDS: INSULIN DETEMIR (LEVEMIR) 100 UNIT/ML SYR SQ SCH (21:24)
[2018-06-07] MEDS: METOPROLOL TARTRATE 12.5 MG TAB PO SCH (21:24)
--- NOTE | 2018-06-07 22:48 | P.PN ---
Subjective Progress Note Date: 06/07/18 73-year-old woman presents to Hospital severe weakness and generalized illness. She is now not having any significant chest pain feels poorly and there is evidence of the urinary tract infection with Escherichia coli. She relates that she's been feeling poorly for years. She's had chronic loose stool for at least 4 years. She has intermittent difficulties with nausea and emesis. She's had multiple urinary tract infections and has had significant urinary symptoms as of late with burning discomfort and frequency. She does have again chronic difficulties with loose stool in her briefs. Objective - Vital Signs Vital signs: Vital Signs Temp 98.1 F 06/07/18 22:07 Pulse 57 L 06/07/18 22:10 Resp 18 06/07/18 22:07 BP 125/47 06/07/18 22:07 Pulse Ox 98 06/07/18 22:07 Intake & Output 06/07/18 06/07/18 06/08/18 06:59 18:59 06:59 Intake Total 840 Output Total 5650 450 Balance -5650 390 Weight 146 kg Intake: Oral 840 Output: Urine 5650 450 Other: Voiding Method Indwelling Catheter Incontinent Incontinent # Voids 1 4 - Exam 73-year-old woman who has severe obesity and is quite uncomfortable and quite discontent overall HEENT: Anicteric conjunctiva are pink and moist nasal mucosa grossly intact without significant lesions, there is no thrush. Neck: The neck is supple without significant lymphadenopathy or thyromegaly. Lungs: Symmetrical air entry with basilar crackles no bronchial sounds no dullness or egophony Heart: Irregular with an audible S1 and S2 soft S4 no distinct murmur click or a PMI is nondisplaced Abdomen: Obese, Positive bowel sounds soft and nontender without palpable masses or organomegaly. There was no guarding or rebound. Extremities: The upper extremities have excellent pulses they are symmetric, no significant petechiae or telangiectasia. No splinter hemorrhages were noted. Lower extremities have evidence of chronic venous stasis and chronic edema and some chronic discomfort but no open ulcers are seen Neuro: Awake alert oriented to person place and time. She has generalized wea kness and difficulty with ambulation - Labs CBC & Chem 7: 06/06/18 06:23 06/07/18 16:04 Labs: Abnormal Lab Results - Last 24 Hours (Table) 06/07/18 06/07/18 06/07/18 Range/Units 05:39 11:25 16:04 Sodium 136 L (137-145) mmol/L Potassium 5.5 H (3.5-5.1) mmol/L BUN 35 H (7-17) mg/dL Glucose 296 H (74-99) mg/dL POC Glucose (mg/dL) 113 H 122 H (75-99) mg/dL 06/07/18 06/07/18 Range/Units 16:26 20:56 Sodium (137-145) mmol/L Potassium (3.5-5.1) mmol/L BUN (7-17) mg/dL Glucose (74-99) mg/dL POC Glucose (mg/dL) 305 H 332 H (75-99) mg/dL Microbiology - Last 24 Hours (Table) 06/05/18 01:45 Urine Culture - Final Urine,Catheterized Escherichia coli 06/05/18 02:20 Blood Culture - Preliminary Blood No Growth after 48 hours Laboratory Results WBC 7.3 k/uL (3.8-10.6) 06/06/18 06:23 RBC 2.78 m/uL (3.80-5.40) L 06/06/18 06:23 Hgb 8.9 gm/dL (11.4-16.0) L 06/06/18 06:23 Hct 27.9 % (34.0-46.0) L 06/06/18 06:23 MCV 100.4 fL (80.0-100.0) H 06/06/18 06:23 MCH 31.9 pg (25.0-35.0) 06/06/18 06:23 MCHC 31.8 g/dL (31.0-37.0) 06/06/18 06:23 RDW 13.2 % (11.5-15.5) 06/06/18 06:23 Plt Count 115 k/uL (150-450) L 06/06/18 06:23 Neutrophils % 68 % 06/06/18 06:23 Lymphocytes % 19 % 06/06/18 06:23 Monocytes % 8 % 06/06/18 06:23 Eosinophils % 3 % 06/06/18 06:23 Basophils % 0 % 06/06/18 06:23 Neutrophils # 5.0 k/uL (1.3-7.7) 06/06/18 06:23 Lymphocytes # 1.4 k/uL (1.0-4.8) 06/06/18 06:23 Monocytes # 0.6 k/uL (0-1.0) 06/06/18 06:23 Eosinophils # 0.2 k/uL (0-0.7) 06/06/18 06:23 Basophils # 0.0 k/uL (0-0.2) 06/06/18 06:23 PT 10.2 sec (9.0-12.0) 06/03/18 15:13 INR 0.9 (<1.2) 06/03/18 15:13 APTT 20.2 sec (22.0-30.0) L 06/03/18 15:13 Sodium 136 mmol/L (137-145) L 06/07/18 16:04 Potassium 5.5 mmol/L (3.5-5.1) H 06/07/18 16:04 Chloride 100 mmol/L (98-107) 06/07/18 16:04 Carbon Dioxide 30 mmol/L (22-30) 06/07/18 16:04 Anion Gap 6 mmol/L 06/07/18 16:04 BUN 35 mg/dL (7-17) H 06/07/18 16:04 Creatinine 0.71 mg/dL (0.52-1.04) 06/07/18 16:04 Est GFR (CKD-EPI)AfAm >90 (>60 ml/min/1.73 sqM) 06/07/18 16:04 Est GFR (CKD-EPI)NonAf 84 (>60 ml/min/1.73 sqM) 06/07/18 16:04 Glucose 296 mg/dL (74-99) H 06/07/18 16:04 POC Glucose (mg/dL) 332 mg/dL (75-99) H 06/07/18 20:56 POC Glu Loading Supervisor ID Ericka Deluca 06/07/18 20:[address] Glu mg/dL 197 06/04/18 05:30 Hemoglobin A1c 8.5 % (4.0-6.0) H 06/04/18 05:30 Lactic Ac Sepsis Rflx Y 06/05/18 02:59 Plasma Lactic Acid Toy 1.3 mmol/L (0.7-2.0) 06/05/18 07:43 Calcium 9.0 mg/dL (8.4-10.2) 06/07/18 16:04 Phosphorus 3.3 mg/dL (2.5-4.5) 06/06/18 06:23 Magnesium 2.1 mg/dL (1.6-2.3) 06/06/18 06:23 Total Bilirubin 0.4 mg/dL (0.2-1.3) 06/03/18 15:13 AST 11 U/L (14-36) L 06/03/18 15:13 ALT 22 U/L (9-52) 06/03/18 15:13 Alkaline Phosphatase 42 U/L (38-126) 06/03/18 15:13 Troponin I <0.012 ng/mL (0.000-0.034) 06/03/18 15:13 NT-Pro-B Natriuret Pep 2650 pg/mL 06/03/18 15:19 Total Protein 5.4 g/dL (6.3-8.2) L 06/03/18 15:13 Albumin 3.3 g/dL (3.5-5.0) L 06/03/18 15:13 Amylase <30 U/L (30-110) L 06/03/18 15:13 Lipase 29 U/L (23-300) 06/03/18 15:13 TSH 1.970 mIU/L (0.465-4.680) 06/04/18 05:30 Urine Color Yellow 06/05/18 01:45 Urine Appearance Turbid (Clear) H 06/05/18 01:45 Urine pH 7.5 (5.0-8.0) 06/05/18 01:45 Ur Specific [place] 1.014 (1.001-1.035) 06/05/18 01:45 Urine Protein 1+ (Negative) H 06/05/18 01:45 Urine Glucose (UA) 2+ (Negative) H 06/05/18 01:45 Urine Ketones Negative (Negative) 06/05/18 01:45 Urine Blood Large (Negative) H 06/05/18 01:45 Urine Nitrite Positive (Negative) H 06/05/18 01:45 Urine Bilirubin Negative (Negative) 06/05/18 01:45 Urine Urobilinogen <2.0 mg/dL (<2.0) 06/05/18 01:45 Ur Leukocyte Esterase Large (Negative) H 06/05/18 01:45 Urine RBC 23 /hpf (0-5) H 06/05/18 01:45 Urine WBC >182 /hpf (0-5) H 06/05/18 01:45 Urine WBC Clumps Many /hpf (None) H 06/05/18 01:45 Ur Squamous Epith Cells 1 /hpf (0-4) 06/03/18 15:40 Urine Bacteria Many /hpf (None) H 06/05/18 01:45 Hyaline Casts 1 /lpf (0-2) 06/03/18 15:40 Influenza Type A RNA Not Detected (Not Detectd) 06/05/18 04:00 Influenza Type B (PCR) Not Detected (Not Detectd) 06/05/18 04:00 Microbiology 06/05/18 01:45 Urine,Catheterized Urine Culture - Final Escherichia coli 06/05/18 02:20 Blood Blood Culture - Preliminary No Growth after 48 hours 06/03/18 15:40 Urine,Voided Urine Culture - Final Assessment and Plan (1) UTI (urinary tract infection) Current Visit: No Status: Acute Code(s): N39.0 - URINARY TRACT INFECTION, SITE NOT SPECIFIED SNOMED Code(s): 26144277 (2) Infection due to ESBL-producing Escherichia coli Narrative/Plan: 73-year-old woman who has multiple medical troubles that includes obesity chronic diarrhea and recurrent urinary tract infections presents to Hospital feeling quite weak and ill. Is now 5 evidence of the E. coli urinary tract infection. Potentially related to her chronic diarrhea status. She received multiple antibiotic therapy and there is no evidence of the E. coli ESBL infection. Antibiotic therapy as transitioned from Azactam and levofloxacin 2 meropenem. She'll be monitored. IV access with a midline catheter has been placed and hopefully will be able to utilize this for the 2 weeks of intravenous antibiotic therapy if extended care facility in the form for meropenem. Maneuvers to improve her vaginal hygiene will be helpful. Unclear if an etiology of her chronic diarrhea has been found but binding agent such as cholestyramine may be helpful to improve her status as well as probiotic therapy to help her status. It has not noted that she has C. diff. Current Visit: Yes Status: Acute Code(s): A49.8 - OTHER BACTERIAL INFECTIONS OF UNSPECIFIED SITE; Z16.12 - EXTENDED SPECTRUM BETA LACTAMASE (ESBL) RESISTANCE SNOMED Code(s): 239138739
[2018-06-08] MEDS: MEROPENEM 1 GM in SODIUM CHLORIDE 0.9% 100 ML IVPB SCH ×3 (00:32→15:31)
--- NOTE | 2018-06-08 01:33 | PN ---
PROGRESS NOTE DATE OF SERVICE: 06/07/2018. HISTORY: She is feeling slightly better overall. She denies any chest pain. She has some mild shortness of breath. PHYSICAL EXAMINATION: Her vitals are stable. She is afebrile. Her chest reveals decreased breath sounds. Cardiovascular system reveals S1, S2. Abdomen is soft. There is no edema. LABS AND MEDICATIONS: Reviewed. IMPRESSION: 1. Acute renal failure with hyperkalemia. 2. Medical debility with frequent falls. 3. Congestive heart failure. PLAN: Continue her on the current medications. Increase her activity level. Depending on how she does we should make further changes to her care. She was counseled regarding her condition. MMODL / IJN: [id number] /
[2018-06-08] MEDS: HEPARIN SODIUM,PORCINE 5,000 UNIT/ML 1 ML VIAL SQ SCH ×3 (05:26→11:15)
[2018-06-08 07:17] LABS: Glucose,Whole Blood 87 mg/dL (75-99)
[2018-06-08] MEDS: INSULIN ASPART (NovoLOG) 100 UNIT/ML VIAL SQ SCH ×2 (08:26→13:29)
[2018-06-08] MEDS: ASPIRIN 81 MG PO SCH (08:57)
[2018-06-08] MEDS: ATORVASTATIN 40 MG TAB PO SCH (08:57)
[2018-06-08] MEDS: PANTOPRAZOLE 40 MG/10 ML VIAL IV SCH (08:57)
[2018-06-08] MEDS: METOPROLOL TARTRATE 12.5 MG TAB PO SCH (08:57)
[2018-06-08] MEDS: LISINOPRIL 5 MG TAB PO SCH (08:58)
[2018-06-08] MEDS: FUROSEMIDE 40 MG TAB PO SCH (08:58)
[2018-06-08] MEDS: predniSONE 20 MG TAB PO SCH (08:58)
[2018-06-08] MEDS: GABAPENTIN 100 MG CAP PO SCH (08:58)
[2018-06-08] MEDS: clonazePAM 1 MG TAB PO SCH ×2 (08:58→15:31)
[2018-06-08] MEDS: CITALOPRAM HYDROBROMIDE 20 MG TAB PO SCH (08:58)
[2018-06-08 09:50] LABS: Calcium 8.9 mg/dL (8.4-10.2); Potassium 4.1 mmol/L (3.5-5.1)
[2018-06-08] MEDS: SODIUM FERRIC GLUCONAT-SUCROSE 125 MG in SODIUM CHLORIDE 0.9% 100 ML IVPB SCH (11:14)
[2018-06-08 11:15] VITALS: BMI 54.8
[2018-06-08] MEDS: FERROUS SULFATE 325 MG TAB PO SCH (11:15)
[2018-06-08] MEDS: CHOLECALCIFEROL 1,000 UNIT TAB PO SCH (11:15)
[2018-06-08] MEDS: traMADol 50 MG TAB PO PRN (11:20)
[2018-06-08 12:04] LABS: Glucose,Whole Blood 153 mg/dL (75-99)
[2018-06-08 12:43] LABS: Basophils # (A) 0.1 k/uL (0-0.2); Basophils % (A) 1 %; Eosinophils # (A) 0.3 k/uL (0-0.7); Eosinophils % (A) 5 %; HGB 9.7 gm/dL (11.4-16.0); Lymphocytes # (A) 1.7 k/uL (1.0-4.8); Lymphocytes % (A) 25 %; MCH 33.1 pg (25.0-35.0); MCHC 33.4 g/dL (31.0-37.0); MCV 99.3 fL (80.0-100.0); Mean Platelet Volume 7.8; Monocytes # (A) 0.5 k/uL (0-1.0); Monocytes % (A) 8 %; Neutrophils # (A) 4.1 k/uL (1.3-7.7); Neutrophils % (A) 61 %; Platelet Count 149 k/uL (150-450); RBC 2.93 m/uL (3.80-5.40); RDW 13.5 % (11.5-15.5); WBC 6.8 k/uL (3.8-10.6)
[2018-06-08 13:01] LABS: Albumin 2.7 g/dL (3.5-5.0); Total Bilirubin 0.3 mg/dL (0.2-1.3); Total Protein 4.6 g/dL (6.3-8.2)
--- NOTE | 2018-06-08 13:16 | DS ---
DISCHARGE SUMMARY DISCHARGE MEDICATIONS: 1. Acetaminophen 650 q.6 hours p.r.n. for pain. 2. Albuterol nebulizer 2.5 q.6 hours. 3. Aspirin 81 mg daily. 4. Lipitor 40 mg daily. 5. Dulcolax 10 mg rectal daily p.r.n. for constipation. 6. Vitamin D3 two thousand units daily. 7. Citalopram 40 mg daily. 8. Klonopin 1 mg t.i.d. 9. Ferrous sulfate 325 lunch. 10.Lasix 40 mg daily. 11.Neurontin 100 mg b.i.d. 12.Levemir 50 units daily. 13.Accu-Chek protocol a.c. and at bedtime. 14.DuoNeb updraft t.i.d. 15.Meropenem 1 g IV piggyback q.8 hours for 10 days. 16.Metoprolol 12.5 mg b.i.d. 17.Nitro sublingual 0.4 mg p.r.n. for chest pain. 18.Protonix 40 mg orally daily. 19.Prednisone 20 mg daily. 20.Tramadol 100 mg t.i.d. CONDITION: Stable. PROGNOSIS: Guarded, ambulate as tolerated. Follow up Dr. Yi at [facility]. DISCHARGE DIAGNOSES: 1. Urinary tract infection, acute on chronic hypoxemic and hypercapnic respiratory failure. 2. Obstructive sleep apnea, noncompliant with CPAP. 3. Moderate pulmonary hypertension. 4. Asthma. 5. Hyperkalemia. 6. Acute kidney injury. 7. Morbid obesity. 8. Hyponatremia. 9. Dehydration, weakness, debility, bradycardia. 10.History of cerebrovascular accident. 11.History of diabetes mellitus type 2, uncontrolled. 12.GERD. 13.Dyslipidemia. 14.Hypertension. 15.Atherosclerotic heart disease. Patient was admitted, placed on IV antibiotics, Azactam switched to meropenem for drug- resistant UTI, hyponatremia, dehydration was treated, bradycardia with adjusted with medication per Cardiology. Beta blockers were decreased. Blood sugar controlled, insulin sliding scale and Levemir added. Patient is treated, rehydrated medications readjusted. Nephrology for renal insufficiency and hyponatremia hyperkalemia. Patient was stabilized. She will follow up with Dr. Yi at [facility] on the [address]. She has chronic lumbar disc disease and disc herniations. [facility] were not willing to do an epidural due to his her multiple conditions at that time. She has severe pain. We can give her tramadol 100 mg t.i.d. for this and Neurontin 100 mg 2 to 3 times a day for neuropathy of the legs. Please see further orders trauma staff discharge summary condition stable prognosis guarded ADA diet. MMODL / IJN: [id number] /
--- NOTE | 2018-06-08 13:40 | PN ---
PROGRESS NOTE DATE OF SERVICE: 06/08/2018 Patient is a 73-year-old female who is seen sitting up in bed, just getting ready to have lunch. Is awake, alert, complaining of generalized pain all over. However, does say that she is less short of breath. Breathing is okay today. Patient is hemodynamically stable, afebrile, in no acute distress. PHYSICAL EXAM: VITAL SIGNS: Temp is 97.4, heart rate is 57, respiratory rate is 18, blood pressure is 135/58, O2 sats 100% on 2 L O2 via nasal cannula. HEENT: Head is normocephalic, atraumatic. Neck is supple. Trachea is midline. LUNGS: With decreased breath sounds. HEART: S1, S2 heard. Not tachycardic. ABDOMEN: Soft, obese. Bowel sounds are heard. EXTREMITIES: With no edema. NEUROLOGIC: Patient is awake and alert. LABS: Sodium is 139, potassium is 4.1, chloride is 101, CO2 is 37. Anion gap is 1. BUN is 27, creatinine 0.77. Glucose is 125. Calcium is 8.9. IMAGING: No new imaging to review. IMPRESSION: 1. Acute renal failure with hyperkalemia. Potassium is within the normal range now. 2. Urinary tract infection with Escherichia coli. 3. Medical debility with frequent falls. 4. Congestive heart failure. PLAN: Continue current medications which have been reviewed. Continue antibiotics per Infectious Disease. Continue to increase activity as tolerated. Continue GI and DVT prophylaxis. We will follow patient closely with you making further changes as necessary. MMODL / IJN: [id number] /
--- NOTE | 2018-06-08 14:40 | PN ---
PROGRESS NOTE Patient is seen for followup for acute kidney injury and hyperkalemia. Her LINDSAY inhibitors were decreased. Potassium had improved. However, yesterday his serum potassium was up at 5.5 mEq/L. I DC'd the lisinopril. Her potassium today is 4.1. Overall, patient denies any complaints. She also has underlying urinary tract infection with E coli and is maintained on antibiotics. PHYSICAL EXAMINATION: Blood pressure was 135/58, heart rate about 52 per minute patient is afebrile. Examination of the heart S1, S2. Examination lungs bilateral breath sounds are heard. Abdomen is soft, nontender. Examination lower extremities shows no evidence of edema. 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 LABS: Show sodium 139, potassium 4.1, BUN 27, serum creatinine 0.7. ASSESSMENT: 1. Hyperkalemia associated with acute kidney injury. The use of LINDSAY inhibitors and also secondary to hypotension hypoperfusion currently improved. The patient is now off of lisinopril, which he should continue for now and we can resume low-dose LINDSAY inhibitors down the road as outpatient. Blood pressure has been on the lower side. 2. Urinary tract infection with Escherichia coli, maintained on antibiotics. 3. Iron deficiency maintained on IV iron. PLAN: Continue with oral Lasix. The patient is stable for discharge from Nephrology standpoint. Continue off of lisinopril for now. Maintain patient on low-potassium diet and control blood sugars. Avoid constipation as well. MMODL / IJN: [id number] /
[2018-06-08] MEDS ORDERED: traMADol 50 MG TAB PO SCH (16:00)
[2018-06-08 16:11] VITALS: BP 142/76; PULSE 89; TEMP 98.4
== END 2018-06-08 18:04 | DRG 682 ==
LOC: EC 13:30 → 2SICU 16:46 → 3SCARD 06-05 11:18 → 4MS4W 06-07 23:37
PROVIDERS: ADMIT Family Medicine; ATTEND Family Medicine
PROC: 05HY33Z Insertion of Infusion Device into Upper Vein, Percutaneous Approach (ICD-10-PCS; principal; 2018-06-07)
DX: N17.9 Acute kidney failure, unspecified (principal); J96.21 Acute and chronic respiratory failure with hypoxia; J96.22 Acute and chronic respiratory failure with hypercapnia; E44.1 Mild protein-calorie malnutrition; E87.1 Hypo-osmolality and hyponatremia; E87.3 Alkalosis; N39.0 Urinary tract infection, site not specified; Z68.43 Body mass index [BMI] 50.0-59.9, adult; I95.9 Hypotension, unspecified; E11.65 Type 2 diabetes mellitus with hyperglycemia; E86.0 Dehydration; E87.5 Hyperkalemia; I27.20 Pulmonary hypertension, unspecified; I50.9 Heart failure, unspecified; I11.0 Hypertensive heart disease with heart failure; J44.9 Chronic obstructive pulmonary disease, unspecified; M41.9 Scoliosis, unspecified; R00.1 Bradycardia, unspecified; K21.9 Gastro-esophageal reflux disease without esophagitis; B96.20 Unspecified Escherichia coli [E. coli] as the cause of diseases classified elsewhere; E03.9 Hypothyroidism, unspecified; E78.5 Hyperlipidemia, unspecified; G47.33 Obstructive sleep apnea (adult) (pediatric); G89.29 Other chronic pain; I25.10 Atherosclerotic heart disease of native coronary artery without angina pectoris; K52.9 Noninfective gastroenteritis and colitis, unspecified; K58.9 Irritable bowel syndrome, unspecified; R29.6 Repeated falls; R62.7 Adult failure to thrive; F32.9 Major depressive disorder, single episode, unspecified; F41.9 Anxiety disorder, unspecified; K64.9 Unspecified hemorrhoids; R32 Unspecified urinary incontinence; T46.4X5A Adverse effect of angiotensin-converting-enzyme inhibitors, initial encounter; M51.26 Other intervertebral disc displacement, lumbar region; K44.9 Diaphragmatic hernia without obstruction or gangrene; D50.9 Iron deficiency anemia, unspecified; D72.829 Elevated white blood cell count, unspecified; M48.061 Spinal stenosis, lumbar region without neurogenic claudication; Z16.12 Extended spectrum beta lactamase (ESBL) resistance; Z79.4 Long term (current) use of insulin; Z79.82 Long term (current) use of aspirin; Z79.899 Other long term (current) drug therapy; Z79.52 Long term (current) use of systemic steroids; Z87.01 Personal history of pneumonia (recurrent); Z85.41 Personal history of malignant neoplasm of cervix uteri; E89.2 Postprocedural hypoparathyroidism; Z86.73 Personal history of transient ischemic attack (TIA), and cerebral infarction without residual deficits; Z87.11 Personal history of peptic ulcer disease; Z87.440 Personal history of urinary (tract) infections; Z91.19 Patient's noncompliance with other medical treatment and regimen; Z90.710 Acquired absence of both cervix and uterus; Z91.040 Latex allergy status; Z88.5 Allergy status to narcotic agent; Z88.0 Allergy status to penicillin; Z88.1 Allergy status to other antibiotic agents; Z88.7 Allergy status to serum and vaccine; Z91.048 Other nonmedicinal substance allergy status; Z95.5 Presence of coronary angioplasty implant and graft; Z90.49 Acquired absence of other specified parts of digestive tract; Z99.81 Dependence on supplemental oxygen; Z98.42 Cataract extraction status, left eye; Z98.41 Cataract extraction status, right eye; Z96.1 Presence of intraocular lens; Z86.14 Personal history of Methicillin resistant Staphylococcus aureus infection; Z80.0 Family history of malignant neoplasm of digestive organs; Z80.42 Family history of malignant neoplasm of prostate; Z82.49 Family history of ischemic heart disease and other diseases of the circulatory system; Z82.5 Family history of asthma and other chronic lower respiratory diseases; W07.XXXA Fall from chair, initial encounter; Y92.009 Unspecified place in unspecified non-institutional (private) residence as the place of occurrence of the external cause
CPT/HCPCS: 36410; 36415; 70450; 71045; 71046; 72131; 76937; 80048; 80053; 81001; 82150; 83036; 83605; 83690; 83735; 83880; 84100; 84443; 84484; 85025; 85610; 85730; 87040; 87077; 87086; 87186; 87502; 93005; 93880; 94640; 96361; 96374; 96375; 99291

== ENCOUNTER → 2018-07-02 | Outpatient (CLI) | payer MEDICARE ==
[2018-07-02 14:45] VITALS: BP 142/61; PULSE 62; RESP 18
--- NOTE | 2018-07-02 15:03 | P.PN ---
Subjective Progress Note Date: 07/02/18 This is a 73-year-old lady a senior living resident with chronic lower back pain with radiation to the lower extremity down to the feet with numbness and tingling. The patient also has chronic incontinence for urine and stool. The patient has been on tramadol for pain. She was seen as an inpatient in the hospital and had bilateral sacroiliac joint steroid injection previously which helped her pain slightly as she states. As per her computed tomography scan of the lumbar spine she has severe stenosis at the L4 5 level. She is also morbidly obese with history of diabetes. She has been on a daily dose of prednisone too. She denies taking any anticoagulants. Today, pt denies new-onset weakness, bowel/bladder incontinence, or any other signs or symptoms of cauda equina syndrome. There are no signs of acute intoxication, and no indications of medication diversion or overuse. In addition to above, 13-point review of systems is also negative for chest pain, shortness of breath, changes in vision, changes in hearing, new onset weakness, abdominal pain, diarrhea, extreme fatigue, malaise, fever, skin changes, homicidal or suicidal ideation, or bowel or bladder incontinence. The patient was examined in her wheelchair due to her inability to walk. Vital Signs: Reviewed in EMR Gen: AAOx3, NAD HEENT: PERRLA,hearing grossly normal Pulm: resp unlabored,CTA Heart:S1,S2, No Mur Neck: supple, trachea midline Neuro exam of the lower extremities: Decreased muscle strength for knee flexion and extension to 3 out of 5 and 24 out of 5 for ankle flexion and extension. Decreased knee reflexes bilaterally and absent ankle reflexes bilaterally. Straight leg raising test: Tenderness in the paravertebral musculature: Positive tenderness in the lumbar paravertebral area bilaterally. Neuro: CN II-XII grossly intact, Imaging: Reviewed in EMR/chart Assessment: Morbid obesity Lumbar stenosis Urinary incontinence Diabetes Plan: 1. Explanation: Opioid and psychological risk scores were reviewed. Diagnoses, prognoses, and multiple treatment options including but not limited to physical therapy, interventional therapies, adjuvant medical therapies, narcotic medication therapies, and surgery were discussed with the patient and all questions were answered to the patient's satisfaction. 2. Opioid agreement: We do not prescribe opioids for this patient 3. Counseling: The patient was counseled extensively on SMOKING CESSATION, BODY MASS INDEX, EXERCISE. Specifically, the patient was instructed regarding the importance of smoking cessation, obesity, and exercise in the context of both chronic pain and overall health. 4. Procedures: Scheduled for lumbar epidural steroid injection under fluoroscopic guidance at the L4 5 level. 5. Consultations: None 6. Investigations: None 7. Medications: Continue her prescribed medications 8. Disposition: Return to the above-mentioned procedure as soon as possible 9. Maps were reviewed and were appropriate. PQRS measures: 1-Patient's medications are documented in the chart. 2-Tobacco use is negative, counseling given 3-Patient has had a pneumococcal vaccine. 4-Advanced care planning discussed, patient unable to give 5-Opioid contract signed with the patient. 6-Pain positive, follow-up visit or procedure scheduled 7-Patient's blood pressure measured and documented above/ normal limits. The patient will follow up with his primary care physician. 8-Patient's weight was measured, and body mass index ABOVE the normal limits, and counseling was done. Patient instructed to follow up with PCP. 9-Patient WAS NOT identified as an unhealthy alcohol user. Objective - Vital Signs Vital signs: Vital Signs Temp Pulse 62 07/02/18 14:41 Resp 18 07/02/18 14:41 BP 142/61 07/02/18 14:41 Pulse Ox 92 L 07/02/18 14:41 Intake & Output 07/01/18 07/02/18 07/02/18 18:59 06:59 18:59 Weight 137.438 kg
== END ==
LOC: PNWHC3 14:08
PROVIDERS: ATTEND Anesthesiology
DX: M48.061 Spinal stenosis, lumbar region without neurogenic claudication (principal); E66.01 Morbid (severe) obesity due to excess calories; E11.9 Type 2 diabetes mellitus without complications; R32 Unspecified urinary incontinence
CPT/HCPCS: 99211

== ENCOUNTER 2018-07-12 07:36 | Day surgery (SDC) | payer MEDICARE ==
[2018-07-10 16:20] VITALS: BMI 55.3
[~2018-07-12 07:36] MED LIST changes: -ALPRAZolam 0.25 MG TAB PO PRN; -ASPIRIN 325 MG TAB PO STA; -ATORVASTATIN 80 MG TAB PO STA; +LACTATED RINGERS 1,000 ML IV SCH; -NITROGLYCERIN SL TABS 0.4 MG TAB SUBLINGUAL PRN; -SODIUM CHLORIDE 0.9% 1,000 ML in EMPTY BAG 1 BAG IV ONE
[2018-07-12 08:00] LABS: Glucose,Whole Blood 251 mg/dL (75-99)
[2018-07-12] MEDS ORDERED: INSULIN ASPART (NovoLOG) 100 UNIT/ML VIAL SQ ONE (08:35)
[2018-07-12] MEDS ORDERED: LIDOCAINE 1% 20 ML VIAL (10MG/ML) FOR IV START INTRADERMA ONE (08:48)
[2018-07-12 08:59] VITALS: TEMP 98.4
--- NOTE | 2018-07-12 09:26 | P.PCN ---
Date of Procedure: 07/12/18 Procedure(s) Performed: PREOPERATIVE DIAGNOSIS: 1- Lumbar Degenerative Disc Diseases 2-Lumbar spondylosis with Facet arthropathy without myelopathy 3-lumbar spinal stenosis POSTOPERATIVE DIAGNOSIS: 1-Lumber Degenerative Disc Diseases 2-Lumbar spondylosis with Facet arthropathy without myelopathy 3-lumbar spinal stenosis PROCEDURE 1. Lumbar epidural steroid injection under fluoroscopic guidance at the L4-5 level. 2. Lumbar epidurogram. ANESTHESIA: Local with 1% lidocaine 3 ml only . ( NO IV sedation ) EBL: Minimal PROCEDURE INDICATION: The patient with low back pain and radiculitis symptoms unresponsive to conservative treatment. Fluoroscopy was used to optimize visualization of the needle placement and to maximize safety. PROCEDURE DESCRIPTION / TECHNIQUE: The patient was seen and identified in the preoperative area. Risks, benefits, complications including but not limited to infections ,bleeding ,allergic reaction to the medications ,nerve damage and not complete pain releife , and alternatives were discussed with the patient. The patient agreed to proceed with the procedure and signed the consent. IV was started, and vital signs were stable. Patient was taken to the OR and time out was completed. The patient was placed in the prone position on procedure table and a pillow was placed under the abdomen to reduce lumbar lordosis. The lumbosacral area was prepped and draped in the usual sterile fashion.ere closely monitored during the procedure.. Vital signs was monitered during the entire procedure. Using anterior-posterior fluoroscopy, the L4-5 interlaminar space was identified and the skin over this site was marked and then infiltrated with 1% lidocaine subcutaneously. Subsequently, a 18-gauge 6 inches long Tuohy epidural needle was inserted and advanced toward the epidural space using the ``Loss of resistance technique and guided by AP and lateral fluoroscopy. The correct needle position in the epidural space was verified with the injection of 2 mL of the water soluble contrast dye Isovue 200 contrast and observing an excellent epidurogram with the epidural spread of the dye, after negative aspiration for blood and CSF and in the absence of paresthesias. Again after negative asp iration, a 6 ml mixture containing 40 mg of Depo-medrol , and 2 ml of preservative free Normal Saline, and 2 ml of preservative free lidocaine 1% solution was injected and a washout of epidurogram was seen. Needle was withdrawn intact, skin was cleansed, and bandages were applied. COMPLICATIONS: None DISPOSITION / PLANS: The patient was placed in a supine position and transferred to the recovery area in a stable condition for observation. There was no evidence of lower extremity motor or sensory deficit after the procedure. Patient was discharged from the recovery room after meeting discharge criteria. Home discharge instructions were given to the patient by the staff. The patient was reexamined prior to discharge. The patient will schedule a follow up in the clinic in 2-4 weeks.
[2018-07-12] MEDS ORDERED: IV FLUID CONTINUATION 1,000 ML IV ONE (09:35)
[2018-07-12 09:41] VITALS: RESP 16
[2018-07-12 09:56] VITALS: BP 144/78; PULSE 75
--- NOTE | 2018-07-12 11:16 | FL ---
EXAMINATION TYPE: FL guided pain mgmt statistic DATE OF EXAM: 07/12/2018 HISTORY: Flouroscopy time 11 seconds of fluoroscopy provided. IMPRESSION: 1. Fluoroscopy time.
== END 2018-07-12 10:15 | disposition home or self-care (01) ==
LOC: ORPAIN 07:36
PROVIDERS: ATTEND Specialist
DX: M47.816 Spondylosis without myelopathy or radiculopathy, lumbar region (principal); M48.061 Spinal stenosis, lumbar region without neurogenic claudication; M51.36 Other intervertebral disc degeneration, lumbar region; I25.10 Atherosclerotic heart disease of native coronary artery without angina pectoris; I10 Essential (primary) hypertension; E11.9 Type 2 diabetes mellitus without complications; M54.10 Radiculopathy, site unspecified; Z88.5 Allergy status to narcotic agent; Z88.0 Allergy status to penicillin; Z88.8 Allergy status to other drugs, medicaments and biological substances; Z91.040 Latex allergy status
CPT/HCPCS: 62323; J1030; Q9966

== ENCOUNTER 2018-07-26 08:01 | Day surgery (SDC) | payer MEDICARE ==
[2018-07-24 15:11] VITALS: BMI 55.1
[2018-07-26 08:30] VITALS: TEMP 96.7
[2018-07-26] MEDS ORDERED: LIDOCAINE 1% 20 ML VIAL (10MG/ML) FOR IV START INTRADERMA ONE (08:40)
[2018-07-26 08:42] LABS: Glucose,Whole Blood 69 mg/dL (75-99)
--- NOTE | 2018-07-26 09:27 | P.PCN ---
Date of Procedure: 07/26/18 Procedure(s) Performed: PREOPERATIVE DIAGNOSIS: 1- Lumbar Degenerative Disc Diseases 2-Lumbar spondylosis with Facet arthropathy without myelopathy 3-lumbar spinal stenosis POSTOPERATIVE DIAGNOSIS: 1-Lumber Degenerative Disc Diseases 2-Lumbar spondylosis with Facet arthropathy without myelopathy 3-lumbar spinal stenosis PROCEDURE 1. Lumbar epidural steroid injection under fluoroscopic guidance at the L4-5 level. 2. Lumbar epidurogram. ANESTHESIA: Local with 1% lidocaine 3 ml only . ( NO IV sedation ) EBL: Minimal PROCEDURE INDICATION: The patient with low back pain and radiculitis symptoms unresponsive to conservative treatment. Fluoroscopy was used to optimize visualization of the needle placement and to maximize safety. PROCEDURE DESCRIPTION / TECHNIQUE: The patient was seen and identified in the preoperative area. Risks, benefits, complications including but not limited to infections ,bleeding ,allergic reaction to the medications ,nerve damage and not complete pain releife , and alternatives were discussed with the patient. The patient agreed to proceed with the procedure and signed the consent. IV was started, and vital signs were stable. Patient was taken to the OR and time out was completed. The patient was placed in the prone position on procedure table and a pillow was placed under the abdomen to reduce lumbar lordosis. The lumbosacral area was prepped and draped in the usual sterile fashion.ere closely monitored during the procedure.. Vital signs was monitered during the entire procedure. Using anterior-posterior fluoroscopy, the L4-5 interlaminar space was identified and the skin over this site was marked and then infiltrated with 1% lidocaine subcutaneously. Subsequently, a 18-gauge 6 inches long Tuohy epidural needle was inserted and advanced toward the epidural space using the ``Loss of resistance technique and guided by AP and lateral fluoroscopy. The correct needle position in the epidural space was verified with the injection of 2 mL of the water soluble contrast dye Isovue 200 contrast and observing an excellent epidurogram with the epidural spread of the dye, after negative aspiration for blood and CSF and in the absence of paresthesias. Again after negative aspiration, a 6 ml mixture containing 40 mg of Depo-medrol , and 2 ml of preservative free Normal Saline, and 2 ml of preservative free lidocaine 1% solution was injected and a washout of epidurogram was seen. Needle was withdrawn intact, skin was cleansed, and bandages were applied. COMPLICATIONS: None DISPOSITION / PLANS: The patient was placed in a supine position and transferred to the recovery area in a stable condition for observation. There was no evidence of lower extremity motor or sensory deficit after the procedure. Patient was discharged from the recovery room after meeting discharge criteria. Home discharge instructions were given to the patient by the staff. The patient was reexamined prior to discharge. The patient will schedule a follow up in the clinic in 2-4 weeks.
[2018-07-26] MEDS ORDERED: IV FLUID CONTINUATION 1,000 ML IV ONE (09:33)
[2018-07-26 09:36] VITALS: RESP 16
[2018-07-26 09:56] VITALS: BP 154/78; PULSE 57
[2018-07-26 10:00] LABS: Glucose,Whole Blood 88 mg/dL (75-99)
--- NOTE | 2018-07-26 11:54 | FL ---
Fluoroscopy HISTORY: Pain 3 seconds fluoroscopy time supplied to the referring clinician. 1 intraoperative C-arm images docume nt the procedure. See dictated report from anesthesia.
== END 2018-07-26 10:04 | disposition home or self-care (01) ==
LOC: ORPAIN 08:01
PROVIDERS: ATTEND Specialist
DX: M51.16 Intervertebral disc disorders with radiculopathy, lumbar region (principal); M47.26 Other spondylosis with radiculopathy, lumbar region; M48.061 Spinal stenosis, lumbar region without neurogenic claudication; E11.9 Type 2 diabetes mellitus without complications
CPT/HCPCS: 62323; J1030; Q9966

== ENCOUNTER → 2018-08-02 | Outpatient (CLI) | payer MEDICARE ==
--- NOTE | 2018-08-02 11:40 | FL ---
EXAMINATION TYPE: FL barium swallow w video DATE OF EXAM: 08/02/2018 MODIFIED SWALLOW / DEGLUTITION STUDY CLINICAL HISTORY: Dysphagia. TECHNIQUE: Deglutition study is performed utilizing thin liquid barium, barium thick pudding, and ba rium coated cracker. 40 seconds of fluoroscopy time was utilized with 0 fluoroscopic images saved as the examination was video recorded. COMPARISON: None. FINDINGS: The oral and pharyngeal phases show satisfactory initiation and propagation with all modali ties tested. Normal mastication is seen with solid modalities tested. There is no evidence of penet ration or aspiration with any modality tested. No significant pharyngeal residue was appreciated. IMPRESSION: Unremarkable deglutition study. Please refer to speech therapist notes for further detai ls if necessary.
== END | disposition home or self-care (01) ==
LOC: RADFLMAIN 10:20
PROVIDERS: ATTEND Family Medicine
DX: R13.10 Dysphagia, unspecified (principal)
CPT/HCPCS: 74230

== ENCOUNTER → 2018-08-16 | Outpatient (CLI) | payer MEDICARE ==
[2018-08-16 13:59] VITALS: RESP 16
[2018-08-16 14:08] VITALS: BP 163/79; PULSE 83; TEMP 98.1
--- NOTE | 2018-08-16 14:15 | P.PN ---
Subjective Progress Note Date: 08/16/18 this is a follow-up visit for this 73-year-old female with a chronic history of severe low back pain , started more than 10 years ago She reports she lives in a facility and is bedridden for the most part secondary to her morbid obesity and pain. She is taking those with lumbar degenerative disc disease disease, and bilateral sacroiliitis , previously we have done bilateral sacroiliac joint steroid injection and she had no benefit from it , and also we have done lumbar epidural steroid injections 2 she had no benefit from it ,She continued to have back pain going across the low back and into her legs. She reports pain in her lower extremities and weakness. She is unable to walk secondary to her obesity. She reports that she takes narcotics on a daily basis at the facility. She denies having any back surgery on her back in the past. She denies having injections in the past as well. She has a CAT scan done which shows significant amount of morbidity of the lumbar spine and is likely a surgical candidate but due to her body habitus she is not a surgical candidate. She is currently on Ultram 100 mg 3 times a day and Neurontin 100 mg twice a day. She denies any side effect of the medication and she reported the current medication giving her some relief Physical Examinations : -Constitutiona : Cooperative , not in acute distress . -HEENT : nech ; supple , no Lymphadenopathy , normal thyroid size . eyes : no ptosis , no icterus, no photophobia . Lumber spine moter stegnth lower extremities ,thigh and legs 4/5 Right side , 4/5 Left side positive lumber facet Loading Test Range of motion of the lumbar spine Flexion 30 degrees, extension 10 degrees strait leg raising test , positive at degree Fabere test positive RT and positive LT . Sever tenderness over the Sacroiliac joint on the R and L sides Assessment and plan= chronic severe low back pain secondary to lumbar degenerative disc disease, and sacroiliitis Patient had no benefit from interventional pain management After examining the patient and discussing the findings of my exam as well as her medical records I discussed with the patient that given the chronicity of the symptoms I do not believe any injections will be necessary on today's visit. I do not believe that injections would offer any relief. I do not believe that the injections will increase her range of motion and her increase in her mobility. The patient is on chronic opioid therapy and ending she is a good candidate to continue those at this time. The patient would benefit from significant weight loss to improve her overall mobility. She is also diabetic ,and it do not believe any steroids would offer any benefit in terms of her pain and will likely derail her blood sugars for the next couple weeks. Feel free to reach out to me if you have any questions, patient could benefit from increasing Neurontin to 300 mg twice a day for a week then later on could be increased to a standard milligram 3 times a day, and I recommend to continue Ultram 100 mg every 8 hours when necessary, and patient will follow with the pain clinic when necessary Objective - Vital Signs Vital signs: Vital Signs Temp Pulse Resp 16 08/16/18 13:39 BP Pulse Ox Intake & Output 08/15/18 08/16/18 08/16/18 18:59 06:59 18:59 Weight 137.438 kg
== END | disposition home or self-care (01) ==
LOC: PNWHC3 13:35
PROVIDERS: ATTEND Specialist
DX: G89.29 Other chronic pain (principal); M51.36 Other intervertebral disc degeneration, lumbar region; M46.1 Sacroiliitis, not elsewhere classified; E66.01 Morbid (severe) obesity due to excess calories; E11.9 Type 2 diabetes mellitus without complications; Z74.01 Bed confinement status; Z68.43 Body mass index [BMI] 50.0-59.9, adult
CPT/HCPCS: 99211

== ENCOUNTER → 2018-08-30 | Outpatient (CLI) | payer MEDICARE ==
--- NOTE | 2018-08-30 09:42 | FL ---
EXAMINATION: Cervical and Thoracic Esophagram DATE OF EXAM: 08/30/2018 CLINICAL INDICATION: 73-year-old female unspecified dysphasia. Patient reports trouble swallowing for year. COMPARISON: None Total Fluoroscopy Time: 1 minute 41 seconds. Total images: 33. FINDINGS: Note that this is a limited double contrast exam. The patient is unable to bear weight or position. Imaging was performed in the AP position with table tilted 45 degrees. The swallowing mechanism is maintained. Patient took small swallows of contrast at a time. No obvious hypopharyngeal narrowing. Surgical clip s on both sides of the neck suggest prior thyroidectomy. There is normal contour and mucosa of the thoracic esophagus. No fixed narrowing is seen though there is some prominent tortuosity at the level of the aortic knob. There are moderate to severe tertiary peristaltic contractions with prolonged pooling of contrast in the esophagus throughout the course of the exam. No focal ulceration or suspicious filling defect is encountered. There is a small sliding hiatal hernia. Valsalva maneuver could not demonstrate gastroesophageal refl ux. IMPRESSION: 1. Limited exam performed at 45 degrees in the AP position as the patient is unable to bear weight or position. 2. Moderate to advanced dysmotility/presbyesophagus. 3. No fixed narrowing/stricture or suspicious mucosal lesion identified. 4. Small sliding hiatal hernia.
== END | disposition home or self-care (01) ==
LOC: RADUSWWP 08:26
PROVIDERS: ATTEND Otolaryngology
DX: K22.4 Dyskinesia of esophagus (principal); K22.8 Other specified diseases of esophagus; K44.9 Diaphragmatic hernia without obstruction or gangrene
CPT/HCPCS: 74220

== ENCOUNTER 2018-09-04 02:53 | Inpatient (IN) | payer MEDICARE ==
--- NOTE | 2018-09-04 02:59 | ED ---
Chest Pain HPI - General Stated Complaint: Chest Pain Time Seen by Provider: 09/04/18 02:58 - History of Present Illness Initial Comments: Carla is a pleasant 73-year-old female is brought to the emergency department today by EMS from [facility] for evaluation of chest pain. Patient reports that she was laying in bed trying to go to sleep when she developed a stabbing retrosternal chest pain which she describes as a 20 out of 10 in intensity. Patient was evaluated at [facility] and was found to be hypertensive with a blood pressure 214/88, she was given nitro with minimal improvement in her pain, her blood pressure improved to 181/85 she was then given a second nitro with only minimal improvement in her pain and a blood pressure that remained at 184/82, she was given a third dose of nitro her blood pressure remained 182/80 EMS was contacted. They administered aspirin and transported to the ER for further evaluation. Upon arrival patient reports her pain has decreased to a 9 out of 10 and she is feeling better. - Related Data Home Medications Medication Instructions Recorded Confirmed Citalopram Hydrobromide [CeleXA] 40 mg PO DAILY 09/20/14 08/16/18 clonazePAM [KlonoPIN] 1 mg PO TID 09/20/14 08/16/18 Atorvastatin [Lipitor] 40 mg PO HS 01/30/17 08/16/18 Aspirin EC [Ecotrin Low Dose] 81 mg PO DAILY 12/14/17 08/16/18 Gabapentin [Neurontin] 100 mg PO BID 12/14/17 08/16/18 Isosorbide Mononitrate ER [Imdur] 60 mg PO DAILY 12/14/17 08/16/18 Acetaminophen [Tylenol] 650 mg PO Q6H PRN 01/16/18 08/16/18 Albuterol Sulfate [Proair Hfa] 1 - 2 puff INHALATION RT-Q6H PRN 06/04/18 08/16/18 predniSONE 20 mg PO DAILY 06/04/18 08/16/18 ARIPiprazole [Abilify] 2 mg PO HS 07/02/18 08/16/18 Fluticasone/Vilanterol [Breo 1 puff INHALATION HS 07/02/18 08/16/18 Ellipta 100-25 Mcg Inhaler] Montelukast Sodium [Singulair] 10 mg PO HS 07/02/18 08/16/18 Ipratropium-Albuterol Nebulize 3 ml INHALATION RT-TID 07/10/18 08/16/18 [Duoneb 0.5 mg-3 mg/3 ml Soln] INSULIN ASPART (NovoLOG) [NovoLOG See Protocol SQ ACHS 07/11/18 08/16/18 (formulary)] Previous Rx's Medication Instructions Recorded Ferrous Sulfate [Iron (65 MG 325 mg PO DAILY tab 10/08/15 Elemental)] Nitroglycerin Sl Tabs [Nitrostat] 0.4 mg SUBLINGUAL Q5M PRN #30 tab 12/23/16 Cholecalciferol [Vitamin D3 (25 2,000 unit PO DAILY tab 03/19/18 Mcg = 1000 Iu)] Pantoprazole [Protonix] 40 mg PO DAILY@0730 tablet. 03/19/18 Bisacodyl [Dulcolax] 10 mg RECTAL DAILY PRN supp 06/08/18 Furosemide [Lasix] 40 mg PO DAILY tab 06/08/18 Insulin Detemir (Levemir) [Levemir] 50 unit SQ HS syr 06/08/18 Metoprolol Tartrate [Lopressor] 12.5 mg PO BID tab 06/08/18 traMADol HCl [Ultram] 100 mg PO TID tab 06/08/18 Allergies Allergy/AdvReac Type Severity Reaction Status Date / Time latex Allergy Mild Rash/Hives Verified 08/16/18 13:40 codeine Allergy Anaphylaxis Verified 07/24/18 14:42 morphine Allergy Hallucinati Verified 07/24/18 14:42 ons Penicillins Allergy Anaphylaxis Verified 07/24/18 14:42 propoxyphene napsylate Allergy Anaphylaxis Verified 07/24/18 14:42 [From Darvocet-N 100] tuberculin, purified protein Allergy Rash/Hives Verified 07/24/18 14:42 deriva [tuberculin,purif.prot.deriv.] adhesive AdvReac Mild Rash/Hives, Verified 07/24/18 14:42 W/ TAPES, CAN USE PAPER TAPE Review of Systems ROS Statement: Those systems with pertinent positive or pertinent negative responses have been documented in the HPI. ROS Other: All systems not noted in ROS Statement are negative. EKG Findings - EKG Comments: EKG Findings:: EKG was obtained at 3:24 AM, rate is 72 rhythm is sinus there is a normal axis there are normal intervals, P1 56, QRS 82, QTc is 466, there is no acute ST elevations or depressions or evidence of acute ischemia or infarction. Past Medical History Past Medical History: Asthma, Coronary Artery Disease (CAD), Cancer, Chest Pain / Angina, CVA/TIA, Diabetes Mellitus, GERD/Reflux, Hyperlipidemia, Hypertension, Memory Impairment, Pneumonia, Sleep Apnea/CPAP/BIPAP, Thyroid Disorder Additional Past Medical History / Comment(s): IDDM, unable to tolerate C-PAP, hx. of bronchitis, chronic low back pain- bulging discs, scoliosis, urinary incontinence, IBS, gastric ulcers, hiatal hernia, TIA 3 yrs roughly ago-memory impairment, uses O2 @2l continuously, hemorrhoids, anemia, Cervical CA hysterectomy, sinus problems at times. [facility]. Patient is a total lift. History of Any Multi-Drug Resistant Organisms: ESBL, MRSA Date of last positivie culture/infection: 06/05/18 ESBL/ MRSA 04/02/11 MDRO Source:: ESBL URINE / MRSA LEG, CHEST, ANKLE Past Surgical History: Bladder Surgery, Cholecystectomy, Heart Catheterization, Heart Catheterization With Stent, Hysterectomy Additional Past Surgical History / Comment(s): Angioplasty with a total of 5 stents per pt with last stent placed 06/29/16, partial parathyroidectomy, bilateral cataracts removed, I and D of L chest wall abscess and L ankle wound, bladder surgery with implant of stimulator system 02/2010, EGD/colonoscoy, Pain procedures. Past Anesthesia/Blood Transfusion Reactions: No Reported Reaction Additional Past Anesthesia/Blood Transfusion Reaction / Comment(s): Pt states she has received blood in the past without reaction. Date of Last Stent Placement:: 06/29/16 Past Psychological History: Anxiety, Depression Additional Psychological History / Comment(s): RESIDES @ [facility] on [facility]. O2 at 2L/[place] skilled nursing states she is a total lift. Smoking Status: Never smoker Past Alcohol Use History: None Reported Past Drug Use History: None Reported - Past Family History Brother(s) Family Medical History: Coronary Artery Disease (CAD) Father Family Medical History: Cancer, Coronary Artery Disease (CAD) Additional Family Medical History / Comment(s): Father had prostate cancer. Mother Family Medical History: Asthma, COPD General Exam - General Exam Comments Initial Comments: Physical Exam GENERAL: Obese elderly female HENT: Normocephalic, Atraumatic. EYES: PERRL, EOMI PULMONARY: Unlabored respirations. No audible rales rhonchi or wheezing was noted. CARDIOVASCULAR: There is a regular rate and rhythm without any murmurs gallops or rubs. Warm and perfused extremities ABDOMEN: Soft and nontender with normal bowel sounds. SKIN: Skin is clear with no lesions or rashes and otherwise unremarkable. : Deferred NEUROLOGIC: Patient is alert and oriented x3. Moving all extremities spontaneously MUSCULOSKELETAL: Normal extremities with adequate strength and full range of motion. No lower extremity swelling or edema. No calf tenderness. PSYCHIATRIC: Normal psychiatric evaluation Course Vital Signs 09/04/18 09/04/18 03:09 06:29 Temperature 98.4 F Pulse Rate 77 80 Respiratory 18 16 Rate Blood Pressure 133/69 145/81 O2 Sat by Pulse 94 L 100 Oximetry Chest [facility] The patient was seen and evaluated, history was obtained from the patient and EMS. EMS had reported patient's blood pressures prior to transfer. Patient had been hypertensive had chest pain. Patient received nitro and aspirin prior to arrival. Chest pain is improved significantly. Patient appears to be in no acute distress she is not diaphoretic pale or unwell-appearing Cardiac workup was initiated Labs resulted with some significant abnormalities, troponin was mildly elevated 0.04, CBC was within normal limits there was mild leukocytosis however differential had some abnormalities noted and laboratory wanted the blood observed by a pathologist prior to reporting definitive results. Given the patient's history, advanced age, chest pain that required multiple nitro and significant hypertension I do feel the patient would benefit from admission to the hospital for further evaluation. Upon reevaluation the patient she is resting comfortably is chest pain-free blood pressure has improved h owever she is agreeable with plan to stay. Patient care was discussed with her primary care physician Dr. Chris Yi who agrees with plan for admission. Disposition Clinical Impression: CHF (congestive heart failure), Hyperglycemia, Chest pain, Morbid obesity with BMI of 50.0-59.9, adult, Coronary artery disease Disposition: ADMITTED IP TO THIS HOSP Referrals: Chris Yi MD [Primary Care Provider] - 1-2 days
[2018-09-04 04:09] LABS: ALT 99 U/L (9-52); AST 30 U/L (14-36); African American GFR (CKD) >90 (>60 ml/min/1.73 sqM); Albumin 3.6 g/dL (3.5-5.0); Alkaline Phosphatase 74 U/L (38-126); Anion Gap 6 mmol/L; Blood Urea Nitrogen 35 mg/dL (7-17); Calcium 9.3 mg/dL (8.4-10.2); Carbon Dioxide 36 mmol/L (22-30); Chloride 95 mmol/L (98-107); Glucose 291 mg/dL (74-99); Magnesium 2.1 mg/dL (1.6-2.3); Potassium 4.4 mmol/L (3.5-5.1); Sodium 137 mmol/L (137-145); Total Bilirubin 0.4 mg/dL (0.2-1.3); Total Protein 5.7 g/dL (6.3-8.2)
[2018-09-04 04:48] LABS: INR 0.9 (<1.2); Prothrombin Time 9.5 sec (9.0-12.0)
[2018-09-04 04:50] LABS: Partial Thromboplastin Time 17.8 sec (22.0-30.0)
[2018-09-04 04:54] LABS: HCT 41.6 % (34.0-46.0); HGB 13.3 gm/dL (11.4-16.0); MCH 32.3 pg (25.0-35.0); MCHC 31.9 g/dL (31.0-37.0); MCV 101.3 fL (80.0-100.0); Macrocytosis Slight; Mean Platelet Volume 7.7; Platelet Count 221 k/uL (150-450); RBC 4.11 m/uL (3.80-5.40); RDW 15.9 % (11.5-15.5); WBC 16.6 k/uL (3.8-10.6)
[2018-09-04 05:32] LABS: Eosinophils # (M) 0.17 k/uL (0-0.7); Nucleated Red Blood Cells 0 /100 WBC (0-0); Total Cells Counted 200
--- NOTE | 2018-09-04 06:11 | XR ---
EXAM: XR Chest, 2 Views CLINICAL HISTORY: ITS.REASON XR Reason: Chest Pain TECHNIQUE: Frontal and lateral views of the chest. COMPARISON: Chest x-ray dated 06/05/2018. FINDINGS: Lungs: Mild prominence of the perihilar and interstitial structures. Pleural space: Unremarkable. No pneumothorax. Heart: Unremarkable. No cardiomegaly. Mediastinum: Unremarkable. Bones/joints: Unremarkable. Other findings: Essentially nondiagnostic lateral view. IMPRESSION: 1. Mild prominence of the perihilar and interstitial structures. This may be related to technique or represent mild pulmonary congestion/edema. 2. Essentially nondiagnostic lateral view.
[2018-09-04 07:49] LABS: Glucose,Whole Blood 195 mg/dL (75-99)
[2018-09-04] MEDS: NITROGLYCERIN OINT 1 INCH/GM PACKET TOPICAL SCH ×4 (07:57→23:11)
[2018-09-04] MEDS: INSULIN ASPART (NovoLOG) 100 UNIT/ML VIAL SQ SCH ×6 (07:57→20:46)
[2018-09-04 08:40] LABS: Band Neutrophils % 1 %; Lymphocytes # (M) 1.33 k/uL (1.0-4.8); Metamyelocytes % 3 %; Myelocytes # (M) 0.66 k/uL (0); Myelocytes % 4 %; Neutrophils % (M) 81 %
[2018-09-04] MEDS ORDERED: NON-FORMULARY DRUG (Aspirin Ec 81 MG) PO SCH (09:00)
[2018-09-04 09:08] LABS: Toxic Granulation Present
[2018-09-04] MEDS ORDERED: NITROGLYCERIN SL TABS 0.4 MG TAB SUBLINGUAL PRN (09:16)
[2018-09-04] MEDS ORDERED: BISACODYL 10 MG SUPP RECTAL PRN (09:16)
[2018-09-04] MEDS ORDERED: IPRATROPIUM-ALBUTEROL 3 ML NEB INHALATION PRN (09:23)
[2018-09-04] MEDS ORDERED: METOPROLOL TARTRATE 12.5 MG TAB PO SCH (09:30)
[2018-09-04] MEDS ORDERED: ISOSORBIDE MONONITRATE ER 30 MG TAB.ER.24H PO SCH (09:30)
[2018-09-04] MEDS ORDERED: HEPARIN SODIUM,PORCINE 5,000 UNIT/ML 1 ML VIAL IV ONE (11:17)
[2018-09-04] MEDS ORDERED: HEPARIN SODIUM,PORCINE 5,000 UNIT/ML 1 ML VIAL IV PRN (11:17)
[2018-09-04] MEDS: CITALOPRAM HYDROBROMIDE 20 MG TAB PO SCH (11:29)
[2018-09-04] MEDS: traMADol 50 MG TAB PO PRN (11:29)
[2018-09-04] MEDS: FERROUS SULFATE 325 MG TAB PO SCH (11:29)
[2018-09-04] MEDS: ASPIRIN 81 MG PO SCH (11:30)
[2018-09-04] MEDS: FUROSEMIDE 40 MG TAB PO SCH (11:30)
[2018-09-04] MEDS: CLOPIDOGREL 75 MG TAB PO SCH (11:35)
[2018-09-04] MEDS: METOPROLOL TARTRATE 25 MG TAB PO SCH ×3 (11:35→20:45)
[2018-09-04] MEDS: IPRATROPIUM-ALBUTEROL 3 ML NEB INHALATION SCH ×2 (11:54→21:17)
--- NOTE | 2018-09-04 12:10 | ECHOF ---
Referral Reason:LV fx MEASUREMENTS -------- HEIGHT: 154.9 cm WEIGHT: 137.4 kg BP: RVIDd: 2.4 cm (< 3.3) IVSd: 1.1 cm (0.6 - 1.1) LVIDd: 3.2 cm (3.9 - 5.3) LVPWd: 1.4 cm (0.6 - 1.1) IVSs: 1.9 cm LVIDs: 1.1 cm LVPWs: 1.8 cm LAESV Index (A-L): 31.40 ml/m Ao Diam: 3.0 cm (2.0 - 3.7) AV Cusp: 1.5 cm (1.5 - 2.6) LA Diam: 3.2 cm (2.7 - 3.8) MV EXCURSION: 11.800 mm (> 18.000) MV EF SLOPE: 22 mm/s (70 - 150) EPSS: 1.4 cm MV E Claudio: 0.79 m/s MV DecT: 440 ms MV A Claudio: 1.09 m/s MV E/A Ratio: 0.72 AV maxP.50 mmHg AV meanP.70 mmHg RAP: 20.00 mmHg RVSP: 27.80 mmHg FINDINGS -------- Sinus rhythm. This was a technically adequate study. The left ventricular size is normal. There is mild concentric left ventricular hypertrophy. Overa ll left ventricular systolic function is normal with, an EF between 55 - 60 %. Normal LAP Grade 1 D iastolic Dysfunction. The right ventricle is normal in size. LA is midly dilated 29-33ml/m2. The right atrial size is normal. Interatrial and interventricular septum intact. Aortic valve is trileaflet and is mildly thickened. There is mild aortic valve sclerosis. Peak/me an gradient across the Aortic Valve is 10.50mmHg / 4.70mmHg. The mitral valve leaflets are mildly thickened. Mild mitral regurgitation is present. Mild tricuspid regurgitation present. Right ventricular systolic pressure is normal at < 35 mmHg. There is no pulmonic regurgitation present. The aortic root size is normal. The inferior vena cava is dilated with no significant inspiratory collapse which is consistent estima andree right atrial pressure of >20 mmHg. All pulmonary veins appear normal. There is no pericardial effusion. CONCLUSIONS -------- 1. Sinus rhythm. 2. This was a technically adequate study. 3. The left ventricular size is normal. 4. There is mild concentric left ventricular hypertrophy. 5. Overall left ventricular systolic function is normal with, an EF between 55 - 60 %. 6. Normal LAP Grade 1 Diastolic Dysfunction. 7. The right ventricle is normal in size. 8. LA is midly dilated 29-33ml/m2. 9. The right atrial size is normal. 10. Interatrial and interventricular septum intact. 11. Aortic valve is trileaflet and is mildly thickened. 12. There is mild aortic valve sclerosis. 13. Peak/mean gradient across the Aortic Valve is 10.50mmHg / 4.70mmHg. 14. The mitral valve leaflets are mildly thickened. 15. Mild mitral regurgitation is present. 16. Mild tricuspid regurgitation present. 17. Right ventricular systolic pressure is normal at < 35 mmHg. 18. There is no pulmonic regurgitation present. 19. The aortic root size is normal. 20. The inferior vena cava is dilated with no significant inspiratory collapse which is consistent es timated right atrial pressure of >20 mmHg. 21. All pulmonary veins appear normal. 22. There is no pericardial effusion. DIRECTOR LEARNING: Winnie Garza RDCS
[2018-09-04 12:20] LABS: Glucose,Whole Blood 168 mg/dL (75-99)
[2018-09-04] MEDS: HEPARIN SOD,PORK IN 0.45% NACL 25,000 UNIT in 0.45% NACL 1 250ML.BAG IV SCH (13:05)
[2018-09-04 13:21] LABS: Basophils # (A) 0.2 k/uL (0-0.2); Basophils % (A) 1 %; Eosinophils # (A) 0.2 k/uL (0-0.7); Eosinophils % (A) 1 %; HCT 43.8 % (34.0-46.0); HGB 13.6 gm/dL (11.4-16.0); Lymphocytes # (A) 2.8 k/uL (1.0-4.8); Lymphocytes % (A) 16 %; MCHC 30.9 g/dL (31.0-37.0); MCV 103.3 fL (80.0-100.0); Macrocytosis Slight; Mean Platelet Volume 7.9; Monocytes # (A) 0.9 k/uL (0-1.0); Monocytes % (A) 5 %; Neutrophils # (A) 13.3 k/uL (1.3-7.7); Neutrophils % (A) 75 %; Platelet Count 216 k/uL (150-450); RBC 4.24 m/uL (3.80-5.40); WBC 17.7 k/uL (3.8-10.6)
[2018-09-04 13:36] LABS: INR 0.9 (<1.2); Prothrombin Time 9.4 sec (9.0-12.0)
[2018-09-04 13:41] LABS: Partial Thromboplastin Time 19.9 sec (22.0-30.0)
[2018-09-04] MEDS ORDERED: clonazePAM 1 MG TAB PO PRN (16:00)
[2018-09-04] MEDS: GABAPENTIN 300 MG CAP PO SCH ×2 (17:20→23:11)
[2018-09-04 17:32] LABS: Glucose,Whole Blood 238 mg/dL (75-99)
--- NOTE | 2018-09-04 18:01 | P.HPIM ---
History of Present Illness H&P Date: 09/04/18 Chief Complaint: Chest pain This is a 73-year-old female resident of [facility] admitted with chest pain in a patient with history of asthma, CAD-stents, a history of CVA/TIA, diabetes mellitus, gastroesophageal reflux disease, hypertension, chronic hypoxic respiratory failure, and multiple other medical issues. Reports developed midsternal chest pain radiating to left breast and further to left shoulder around midnight just prior to dozing off to sleep. Blood pressure at [facility] to 214/88. Received 3 sublingual nitroglycerin with no relief, aspirin, blood pressure stabilized for transfer and patient transferred to [facility] ER. On arrival, no acute distress,VSS- blood pressure 133/69, afebrile. Maintaining O2 sats of high 90s to 100% on room air. troponin 0.04. WBC 16.6, blood sugar elevated at 291. EKG reported sinus rhythm with. Echo reporting normal LV function, EF 55-60%. Chest x-ray reporting possible mild pulmonary congestion/edema.Admitted, cardiology consulted. Review of Systems ROS Statement: Those systems with pertinent positive or pertinent negative responses have been documented in the HPI. ROS Other: All systems not noted in ROS Statement are negative. Past Medical History Past Medical History: Asthma, Coronary Artery Disease (CAD), Cancer, Chest Pain / Angina, CVA/TIA, Diabetes Mellitus, GERD/Reflux, Hyperlipidemia, Hypertension, Memory Impairment, Pneumonia, Sleep Apnea/CPAP/BIPAP, Thyroid Disorder Additional Past Medical History / Comment(s): IDDM, unable to tolerate C-PAP, hx. of bronchitis, chronic low back pain- bulging discs, scoliosis, urinary incontinence, IBS, gastric ulcers, hiatal hernia, TIA 3 yrs roughly ago-memory impairment, uses O2 @2l continuously, hemorrhoids, anemia, Cervical CA hysterectomy, sinus problems at times. Fell at the senior care on 07/23/18. Patient is a total lift. History of Any Multi-Drug Resistant Organisms: ESBL, MRSA Date of last positivie culture/infection: 06/05/18 ESBL/ MRSA 04/02/11 MDRO Source:: ESBL URINE / MRSA LEG, CHEST, ANKLE Past Surgical History: Bladder Surgery, Cholecystectomy, Heart Catheterization, Heart Catheterization With Stent, Hysterectomy Additional Past Surgical History / Comment(s): Angioplasty with a total of 5 stents per pt with last stent placed 06/29/16, partial parathyroidectomy, bilateral cataracts removed, I and D of L chest wall abscess and L ankle wound, bladder surgery with implant of stimulator system 02/2010, EGD/colonoscoy, Pain procedures. Past Anesthesia/Blood Transfusion Reactions: No Reported Reaction Additional Past Anesthesia/Blood Transfusion Reaction / Comment(s): Pt states she has received blood in the past without reaction. Date of Last Stent Placement:: 06/29/16 Past Psychological History: Anxiety, Depression Additional Psychological History / Comment(s): RESIDES @ [facility] on the [place]. O2 at 2L/[place] skilled nursing states she is a total lift. Smoking Status: Never smoker Past Alcohol Use History: None Reported Past Drug Use History: None Reported - Past Family History Brother(s) Family Medical History: Coronary Artery Disease (CAD) Father Family Medical History: Cancer, Coronary Artery Disease (CAD) Additional Family Medical History / Comment(s): Father had prostate cancer. Mother Family Medical History: Asthma, COPD Medications and Allergies Home Medications Medication Instructions Recorded Confirmed Type Citalopram Hydrobromide [CeleXA] 40 mg PO DAILY 09/20/14 09/04/18 History clonazePAM [KlonoPIN] 1 mg PO TID 09/20/14 09/04/18 History Nitroglycerin Sl Tabs [Nitrostat] 0.4 mg SUBLINGUAL Q5M PRN #30 tab 12/23/16 09/04/18 Rx Atorvastatin [Lipitor] 40 mg PO HS 01/30/17 09/04/18 History Aspirin EC [Ecotrin Low Dose] 81 mg PO DAILY 12/14/17 09/04/18 History Acetaminophen [Tylenol] 650 mg PO Q6H PRN 01/16/18 09/04/18 History Cholecalciferol [Vitamin D3 (25 2,000 unit PO DAILY tab 03/19/18 09/04/18 Rx Mcg = 1000 Iu)] Albuterol Sulfate [Proair Hfa] 1 - 2 puff INHALATION RT-Q6H PRN 06/04/18 09/04/18 History predniSONE 20 mg PO DAILY 06/04/18 09/04/18 History Bisacodyl [Dulcolax] 10 mg RECTAL DAILY PRN supp 06/08/18 09/04/18 Rx Furosemide [Lasix] 40 mg PO DAILY tab 06/08/18 09/04/18 Rx Insulin Detemir (Levemir) [Levemir] 50 unit SQ HS syr 06/08/18 09/04/18 Rx traMADol HCl [Ultram] 100 mg PO TID tab 06/08/18 09/04/18 Rx Fluticasone/Vilanterol [Breo 1 puff INHALATION RT-HS 07/02/18 09/04/18 History Ellipta 100-25 Mcg Inhaler] Montelukast Sodium [Singulair] 10 mg PO HS 07/02/18 09/04/18 History Ipratropium-Albuterol Nebulize 3 ml INHALATION RT-TID 07/10/18 09/04/18 History [Duoneb 0.5 mg-3 mg/3 ml Soln] ARIPiprazole [Abilify] 5 mg PO HS@2100 09/04/18 09/04/18 History Bismuth Subsalicylate 524 mg PO Q4H PRN 09/04/18 09/04/18 History [Pepto-Bismol] Ferrous Sulfate [Iron (65 MG 325 mg PO DAILY@1200 09/04/18 09/04/18 History Elemental)] Gabapentin [Neurontin] 300 mg PO Q8HR 09/04/18 09/04/18 History INSULIN LISPRO (HumaLOG) [HumaLOG] See Protocol SQ ACHS 09/04/18 09/04/18 Histor y Insulin Lispro [humaLOG Kwikpen] 5 unit SQ AC-TID 09/04/18 09/04/18 History Isosorbide Mononitrate ER [Imdur] 30 mg PO DAILY 09/04/18 09/04/18 History Lubiprostone [Amitiza] 24 mcg PO BID 09/04/18 09/04/18 History Metoprolol Tartrate [Lopressor] 12.5 mg PO BID 09/04/18 09/04/18 History Pantoprazole [Protonix] 40 mg PO DAILY@0600 09/04/18 09/04/18 History Allergies Allergy/AdvReac Type Severity Reaction Status Date / Time adhesive Allergy Mild Rash/Hives, Verified 09/04/18 07:33 W/ TAPES, CAN USE PAPER TAPE latex Allergy Mild Rash/Hives Verified 09/04/18 07:32 codeine Allergy Anaphylaxis Verified 09/04/18 07:32 Penicillins Allergy Anaphylaxis Verified 09/04/18 07:32 propoxyphene napsylate Allergy Anaphylaxis Verified 09/04/18 07:32 [From Darvocet-N 100] tuberculin, purified protein Allergy Rash/Hives Verified 09/04/18 07:32 deriva [tuberculin,purif.prot.deriv.] morphine AdvReac Hallucinati Verified 09/04/18 07:33 ons Physical Exam Vitals: Vital Signs Temp Pulse Resp BP Pulse Ox 09/04/18 08:39 97.8 F 64 20 172/84 98 09/04/18 08:03 70 18 149/63 94 L 09/04/18 06:29 80 16 145/81 100 09/04/18 03:09 98.4 F 77 18 133/69 94 L Intake and Output 09/03/18 09/04/18 09/04/18 22:59 06:59 14:59 Other: Weight 137.438 kg PHYSICAL EXAM: VITAL SIGNS: As above GENERAL: Sitting up in bed, no acute distress HEENT: Conjunctivae normal. eyes normal. Oral mucosa moist NECK: No JVD. No thyroid enlargement. No LNs CARDIOVASCULAR: S1, S2 regular.. No murmur RESPIRATION: Breath sounds diminished in the bases. No rhonchi or crackles. No bronchial breathing. ABDOMEN: Soft, obese, nontender . No guarding. no masses palpable.Bowel sounds heard. LEGS: No edema. no swelling PSYCHIATRY: Alert and oriented X3, mood and affect normal. NERVOUS SYSTEM: Cranial N 2-12 grossly normal. Moves all 4 limbs. Diffuse weakness No focal deficits. Skin: no lesions, no rash Lymphatic system. No LN neck axilla or groin. Results CBC & Chem 7: 09/04/18 12:30 09/04/18 03:40 Labs: Abnormal Lab Results - Last 24 Hours (Table) 09/04/18 09/04/18 09/04/18 Range/Units 03:40 03:40 03:40 WBC 16.6 H (3.8-10.6) k/uL MCV 101.3 H (80.0-100.0) fL RDW 15.9 H (11.5-15.5) % Neutrophils # (Manual) 13.60 H (1.3-7.7) k/uL Metamyelocytes # (Man) 0.50 H (0) k/uL Myelocytes # (Manual) 0.66 H (0) k/uL APTT 17.8 L (22.0-30.0) sec Chloride 95 L (98-107) mmol/L Carbon Dioxide 36 H (22-30) mmol/L BUN 35 H (7-17) mg/dL Glucose 291 H (74-99) mg/dL POC Glucose (mg/dL) (75-99) mg/dL ALT 99 H (9-52) U/L Troponin I (0.000-0.034) ng/mL Total Protein 5.7 L (6.3-8.2) g/dL 09/04/18 09/04/18 Range/Units 03:40 07:46 WBC (3.8-10.6) k/uL MCV (80.0-100.0) fL RDW (11.5-15.5) % Neutrophils # (Manual) (1.3-7.7) k/uL Metamyelocytes # (Man) (0) k/uL Myelocytes # (Manual) (0) k/uL APTT (22.0-30.0) sec Chloride (98-107) mmol/L Carbon Dioxide (22-30) mmol/L BUN (7-17) mg/dL Glucose (74-99) mg/dL POC Glucose (mg/dL) 195 H (75-99) mg/dL ALT (9-52) U/L Troponin I 0.041 H* (0.000-0.034) ng/mL Total Protein (6.3-8.2) g/dL Assessment and Plan Assessment: -Acute chest pain, elevated troponins, in a patient with history of significant CAD with stents, rule out ischemic cardiac disease -CAD with history of stents -Hypertension -Diabetes mellitus, uncontrolled, hyperglycemia -HX of CVA/TIA -Chronic Hypoxic Respiratory failure -Poss. Pulmonary edema per CXR. Plan:Continue on current medication regime ,monitoring and symptomatic treatment. Home meds have been reviewed and resumed.Cardiology consulted. Heparin drip ordered. GI Prophylaxis in place.Further recommendations to follow. The impression and plan of care has been dictated as directed. : I performed a history and examination of this patient, discussed the same with the dictator. I agree with the dictator's note ,documented as a scribe. Any additional findings or plans will be noted. Time taken: 35 minutes
[2018-09-04 18:18] VITALS: BMI 57.2
[2018-09-04 20:43] LABS: Glucose,Whole Blood 280 mg/dL (75-99)
[2018-09-04] MEDS: INSULIN DETEMIR (LEVEMIR) 100 UNIT/ML SYR SQ SCH (20:45)
[2018-09-04] MEDS: MONTELUKAST 10 MG TAB PO SCH (20:45)
[2018-09-04] MEDS: ATORVASTATIN 40 MG TAB PO SCH (20:45)
[2018-09-04] MEDS: ARIPiprazole 5 MG TAB PO SCH (20:46)
[2018-09-04] MEDS: Lubiprostone [Amitiza] PO SCH (20:47)
[2018-09-04] MEDS: SYMBICORT 80-4.5 MCG INHALER INHALATION SCH (21:24)
[2018-09-05 04:36] LABS: Basophils # (A) 0.2 k/uL (0-0.2); Basophils % (A) 1 %; Eosinophils # (A) 0.3 k/uL (0-0.7); Eosinophils % (A) 2 %; HCT 42.3 % (34.0-46.0); HGB 13.3 gm/dL (11.4-16.0); Lymphocytes % (A) 23 %; MCH 31.9 pg (25.0-35.0); MCHC 31.4 g/dL (31.0-37.0); MCV 101.8 fL (80.0-100.0); Macrocytosis Slight; Mean Platelet Volume 7.1; Monocytes # (A) 0.9 k/uL (0-1.0); Monocytes % (A) 5 %; Neutrophils # (A) 11.5 k/uL (1.3-7.7); Neutrophils % (A) 68 %; Platelet Count 180 k/uL (150-450); RBC 4.15 m/uL (3.80-5.40); RDW 14.4 % (11.5-15.5)
[2018-09-05 05:00] LABS: African American GFR (CKD) >90 (>60 ml/min/1.73 sqM); Blood Urea Nitrogen 42 mg/dL (7-17); Calcium 9.3 mg/dL (8.4-10.2); Carbon Dioxide 36 mmol/L (22-30); Cholesterol 175 mg/dL (<200); Glucose 57 mg/dL (74-99); HDL Cholesterol 62 mg/dL (40-60); LDL Cholesterol,Calculated 86 mg/dL (0-99); Triglycerides 136 mg/dL (<150)
[2018-09-05 05:48] LABS: Anion Gap 4 mmol/L; Chloride 101 mmol/L (98-107); Potassium 3.9 mmol/L (3.5-5.1); Sodium 139 mmol/L (137-145)
[2018-09-05 06:32] LABS: Glucose,Whole Blood 61 mg/dL (75-99)
[2018-09-05 06:46] LABS: Glucose,Whole Blood 72 mg/dL (75-99)
[2018-09-05] MEDS: NITROGLYCERIN OINT 1 INCH/GM PACKET TOPICAL SCH (06:50)
[2018-09-05] MEDS: PANTOPRAZOLE 40 MG TABLET PO SCH (06:50)
[2018-09-05] MEDS: INSULIN ASPART (NovoLOG) 100 UNIT/ML VIAL SQ SCH ×7 (06:54→21:52)
[2018-09-05 07:08] LABS: Glucose,Whole Blood 86 mg/dL (75-99)
[2018-09-05] MEDS: IPRATROPIUM-ALBUTEROL 3 ML NEB INHALATION SCH ×3 (07:26→20:51)
[2018-09-05] MEDS: SYMBICORT 80-4.5 MCG INHALER INHALATION SCH ×2 (07:26→20:51)
[2018-09-05] MEDS ORDERED: FUROSEMIDE 40 MG TAB PO SCH (09:00)
[2018-09-05] MEDS ORDERED: ASPIRIN 325 MG TAB PO SCH (09:00)
[2018-09-05] MEDS ORDERED: ISOSORBIDE MONONITRATE ER 30 MG TAB.ER.24H PO SCH (09:15)
[2018-09-05] MEDS ORDERED: ALPRAZolam 0.25 MG TAB PO PRN (09:25)
[2018-09-05] MEDS ORDERED: SODIUM CHLORIDE 0.9% 1,000 ML in EMPTY BAG 1 BAG IV ONE (09:25)
[2018-09-05] MEDS ORDERED: NITROGLYCERIN SL TABS 0.4 MG TAB SUBLINGUAL PRN (09:25)
[2018-09-05] MEDS ORDERED: ASPIRIN 325 MG TAB PO STA (09:25)
[2018-09-05] MEDS ORDERED: ATORVASTATIN 80 MG TAB PO STA (09:25)
[2018-09-05] MEDS ORDERED: ALPRAZolam 0.5 MG TAB PO PRN (09:25)
[2018-09-05] MEDS: Lubiprostone [Amitiza] PO SCH ×2 (09:33→21:53)
[2018-09-05] MEDS: CITALOPRAM HYDROBROMIDE 20 MG TAB PO SCH (09:33)
[2018-09-05] MEDS: CLOPIDOGREL 75 MG TAB PO SCH (09:33)
[2018-09-05] MEDS: CHOLECALCIFEROL 1,000 UNIT TAB PO SCH (09:33)
[2018-09-05] MEDS: predniSONE 20 MG TAB PO SCH (09:33)
[2018-09-05] MEDS: FUROSEMIDE 40 MG TAB PO SCH (09:34)
[2018-09-05] MEDS: GABAPENTIN 300 MG CAP PO SCH ×3 (09:34→23:06)
[2018-09-05] MEDS: METOPROLOL TARTRATE 25 MG TAB PO SCH ×3 (09:34→21:51)
[2018-09-05] MEDS: ASPIRIN 81 MG PO SCH (09:36)
[2018-09-05] MEDS: LISINOPRIL 5 MG TAB PO SCH (09:43)
[2018-09-05] MEDS: ISOSORBIDE MONONITRATE ER 30 MG TAB.ER.24H PO SCH (09:45)
--- NOTE | 2018-09-05 09:48 | P.CRDCN ---
History of Present Illness Consult date: 09/05/18 Requesting physician: Chris Yi Reason for Consult (text): chest pain, HTN Chief complaint: chest pain History of present illness: This a pleasant 73-year-old female patient who follows with Dr. Blackwell in the office. She currently resides in [facility] since March of this year. She has a known history of CAD with prior stenting of the LAD and left circumflex, diabetes type 2, hypertension and dyslipidemia as well as morbid obesity. Most recently underwent cardiac catheterization in January 2018 which showed mild in-stent restenosis of the proximal LAD and critical lesion in the left circumflex. She subsequently underwent attempted balloon angioplasty of the left circumflex in February 2018. She presented this admission with complaints of stabbing midsternal chest discomfort that radiated up over her left chest lasting about 45 minutes. She also had associated symptoms including shortness of breath, nausea and feeling as if she might pass out. Blood pressure was elevated with a systolic of 220 at the time. She was given 3 nitroglycerin at [facility] with some relief. EKG on admission showed sinus rhythm with no acute ST-T wave abnormalities. Troponins are elevated at 0.041, 0.252, 0.201 and 0.187. Chest x-ray showed mild prominence of the perihilar and interstitial structures which may be related to technique or represent mild pulmonary congestion/edema with essentially nondiagnostic lateral view. Echocardiogram showed normal LV systolic function with ejection fraction of 55-60%, mild aortic valve sclerosis, mild mitral regurgitation and mild tricuspid regurgitation. Upon examination, patient is resting completely in bed. She verbalizes feeling very tired due to little sleep through the night but is otherwise in no distress. She did have one brief episode of chest discomfort lasting only seconds. Past Medical History Past Medical History: Asthma, Coronary Artery Disease (CAD), Cancer, Chest Pain / Angina, CVA/TIA, Diabetes Mellitus, GERD/Reflux, Hyperlipidemia, Hypertension, Memory Impairment, Pneumonia, Sleep Apnea/CPAP/BIPAP, Thyroid Disorder Additional Past Medical History / Comment(s): IDDM, unable to tolerate C-PAP, hx. of bronchitis, chronic low back pain- bulging discs, scoliosis, urinary incontinence, IBS, gastric ulcers, hiatal hernia, TIA 3 yrs roughly ago-memory impairment, uses O2 @2l continuously, hemorrhoids, anemia, Cervical CA hysterectomy, sinus problems at times. [facility] Patient is a total lift. History of Any Multi-Drug Resistant Organisms: ESBL, MRSA Date of last positivie culture/infection: 06/05/18 ESBL/ MRSA 04/02/11 MDRO Source:: ESBL URINE / MRSA LEG, CHEST, ANKLE Past Surgical History: Bladder Surgery, Cholecystectomy, Heart Catheterization, Heart Catheterization With Stent, Hysterectomy Additional Past Surgical History / Comment(s): Angioplasty with a total of 5 stents per pt with last stent placed 06/29/16, partial parathyroidectomy, bilateral cataracts removed, I and D of L chest wall abscess and L ankle wound, bladder surgery with implant of stimulator system 02/2010, EGD/colonoscoy, Pain procedures. Past Anesthesia/Blood Transfusion Reactions: No Reported Reaction Additional Past Anesthesia/Blood Transfusion Reaction / Comment(s): Pt states she has received blood in the past without reaction. Date of Last Stent Placement:: 06/29/16 Past Psychological History: Anxiety, Depression Additional Psychological History / Comment(s): RESIDES @ [facility] on the [place]. O2 at /[place] [facility] states she is a total lift. Smoking Status: Never smoker Past Alcohol Use History: None Reported Past Drug Use History: None Reported - Past Family History Brother(s) Family Medical History: Coronary Artery Disease (CAD) Father Family Medical History: Cancer, Coronary Artery Disease (CAD) Additional Family Medical History / Comment(s): Father had prostate cancer. Mother Family Medical History: Asthma, COPD Medications and Allergies Home Medications Medication Instructions Recorded Confirmed Type Citalopram Hydrobromide [CeleXA] 40 mg PO DAILY 09/20/14 09/04/18 History clonazePAM [KlonoPIN] 1 mg PO TID 09/20/14 09/04/18 History Nitroglycerin Sl Tabs [Nitrostat] 0.4 mg SUBLINGUAL Q5M PRN #30 tab 12/23/16 09/04/18 Rx Atorvastatin [Lipitor] 40 mg PO HS 01/30/17 09/04/18 History Aspirin EC [Ecotrin Low Dose] 81 mg PO DAILY 12/14/17 09/04/18 History Acetaminophen [Tylenol] 650 mg PO Q6H PRN 01/16/18 09/04/18 History Cholecalciferol [Vitamin D3 (25 2,000 unit PO DAILY tab 03/19/18 09/04/18 Rx Mcg = 1000 Iu)] Albuterol Sulfate [Proair Hfa] 1 - 2 puff INHALATION RT-Q6H PRN 06/04/18 09/04/18 History predniSONE 20 mg PO DAILY 06/04/18 09/04/18 History Bisacodyl [Dulcolax] 10 mg RECTAL DAILY PRN supp 06/08/18 09/04/18 Rx Furosemide [Lasix] 40 mg PO DAILY tab 06/08/18 09/04/18 Rx Insulin Detemir (Levemir) [Levemir] 50 unit SQ HS syr 06/08/18 09/04/18 Rx traMADol HCl [Ultram] 100 mg PO TID tab 06/08/18 09/04/18 Rx Fluticasone/Vilanterol [Breo 1 puff INHALATION RT-HS 07/02/18 09/04/18 History Ellipta 100-25 Mcg Inhaler] Montelukast Sodium [Singulair] 10 mg PO HS 07/02/18 09/04/18 History Ipratropium-Albuterol Nebulize 3 ml INHALATION RT-TID 07/10/18 09/04/18 History [Duoneb 0.5 mg-3 mg/3 ml Soln] ARIPiprazole [Abilify] 5 mg PO HS@2100 09/04/18 09/04/18 History Bismuth Subsalicylate 524 mg PO Q4H PRN 09/04/18 09/04/18 History [Pepto-Bismol] Ferrous Sulfate [Iron (65 MG 325 mg PO DAILY@1200 09/04/18 09/04/18 History Elemental)] Gabapentin [Neurontin] 300 mg PO Q8HR 09/04/18 09/04/18 History INSULIN LISPRO (HumaLOG) [HumaLOG] See Protocol SQ ACHS 09/04/18 09/04/18 History Insulin Lispro [humaLOG Kwikpen] 5 unit SQ AC-TID 09/04/18 09/04/18 History Isosorbide Mononitrate ER [Imdur] 30 mg PO DAILY 09/04/18 09/04/18 History Lubiprostone [Amitiza] 24 mcg PO BID 09/04/18 09/04/18 History Metoprolol Tartrate [Lopressor] 12.5 mg PO BID 09/04/18 09/04/18 History Pantoprazole [Protonix] 40 mg PO DAILY@0600 09/04/18 09/04/18 History Allergies Allergy/AdvReac Type Severity Reaction Status Date / Time adhesive Allergy Mild Rash/Hives, Verified 09/04/18 07:33 W/ TAPES, CAN USE PAPER TAPE latex Allergy Mild Rash/Hives Verified 09/04/18 07:32 codeine Allergy Anaphylaxis Verified 09/04/18 07:32 Penicillins Allergy Anaphylaxis Verified 09/04/18 07:32 propoxyphene napsylate Allergy Anaphylaxis Verified 09/04/18 07:32 [From Darvocet-N 100] tuberculin, purified protein Allergy Rash/Hives Verified 09/04/18 07:32 deriva [tuberculin,purif.prot.deriv.] morphine AdvReac Hallucinati Verified 09/04/18 07:33 ons Physical Exam Vitals: Vital Signs Temp Pulse Pulse Resp BP Pulse Ox 09/05/18 07:50 97.8 F 58 L 18 151/66 97 09/05/18 07:37 60 09/05/18 07:26 60 09/05/18 04:00 56 L 18 164/69 96 09/05/18 00:00 56 L 18 164/73 95 09/04/18 21:26 77 16 09/04/18 21:18 74 16 09/04/18 20:00 98.2 F 59 L 18 152/68 95 09/04/18 16:50 97.8 F 58 L 18 150/69 93 L 09/04/18 12:01 76 09/04/18 11:56 68 09/04/18 11:25 97.2 F L 61 18 171/74 96 09/04/18 09:25 98.1 F 64 18 132/63 Intake and Output 09/04/18 09/05/18 09/05/18 22:59 06:59 14:59 Intake Total 585.214 78.65 Balance 585.214 78.65 Intake: Intake, IV Titration 95.214 78.65 Amount Heparin Sod,Pork in 0.45% 95.214 78.65 NaCl 25,000 unit In 0.45 % NaCl 1 250ml.bag @ 7.28 UNITS/KG/HR 10.005 mls/ hr IV .Q24H [facility] Rx#: [id number] Oral 490 Other: Voiding Method Incontinent Incontinent Incontinent # Voids 3 1 Weight 139.5 kg PHYSICAL EXAMINATION: HEENT: Head is atraumatic, normocephalic. Pupils equal, round. Neck is supple. There is no elevated jugular venous pressure. HEART EXAMINATION: Heart sounds regular, S1 and S2 with a soft systolic murmur at the base. CHEST EXAMINATION: Lungs are clear to auscultation. No chest wall tenderness is noted on palpation or with deep breathing. ABDOMEN: Soft, obese with mild generalized tenderness. Bowel sounds are heard. No organomegaly noted. EXTREMITIES: Diminished peripheral pulses with evidence of trace peripheral ezequiel ma and no calf tenderness noted. NEUROLOGIC patient is awake, drowsy and oriented x3. . Results 09/05/18 04:26 09/05/18 04:26 Cardiac Enzymes 09/04/18 09/04/18 09/05/18 Range/Units 12:30 18:56 00:27 Troponin I 0.252 H* 0.201 H* 0.187 H* (0.000-0.034) ng/mL Coagulation 09/04/18 09/04/18 09/05/18 Range/Units 12:30 18:56 04:26 PT 9.4 (9.0-12.0) sec APTT 19.9 L 40.2 H 70.8 H (22.0-30.0) sec Lipids 09/05/18 Range/Units 04:26 Triglycerides 136 (<150) mg/dL Cholesterol 175 (<200) mg/dL HDL Cholesterol 62 H (40-60) mg/dL CBC 09/04/18 09/05/18 Range/Units 12:30 04:26 WBC 17.7 H 17.0 H (3.8-10.6) k/uL RBC 4.24 4.15 (3.80-5.40) m/uL Hgb 13.6 13.3 (11.4-16.0) gm/dL Hct 43.8 42.3 (34.0-46.0) % Plt Count 216 180 (150-450) k/uL Comprehensive Metabolic Panel 09/05/18 Range/Units 04:26 Sodium 139 (137-145) mmol/L Potassium 3.9 (3.5-5.1) mmol/L Chloride 101 (98-107) mmol/L Carbon Dioxide 36 H (22-30) mmol/L BUN 42 H (7-17) mg/dL Creatinine 0.72 (0.52-1.04) mg/dL Glucose 57 L (74-99) mg/dL Calcium 9.3 (8.4-10.2) mg/dL Current Medications Generic Name Dose Route Start Last Admin Trade Name Freq PRN Reason Stop Dose Admin Albuterol/Ipratropium 3 ml 09/04/18 13:00 09/05/18 07:26 Duoneb 0.5 Mg-3 Mg/3 Ml Soln INHALATION 3 ml RT-TID [facility] Administration Albuterol/Ipratropium 3 ml 09/04/18 09:23 Duoneb 0.5 Mg-3 Mg/3 Ml Soln INHALATION RT-Q2H PRN Shortness Of Breath Or Wheezing Aripiprazole 5 mg 09/04/18 21:00 09/04/18 20:46 Abilify PO 5 mg HS@2100 [facility] Administration Aspirin 81 mg 09/04/18 11:30 09/04/18 11:30 Aspirin PO 81 mg DAILY [facility] Administration Atorvastatin Calcium 40 mg 09/04/18 21:00 09/04/18 20:45 Lipitor PO 40 mg HS [facility] Administration Bisacodyl 10 mg 09/04/18 09:16 Dulcolax RECTAL DAILY PRN Constipation Budesonide/Formoterol Fumarate 2 puff 09/04/18 20:00 09/05/18 07:26 Symbicort 80-4.5 Mcg Inhaler INHALATION 2 puff RT-BID [facility] Administration Cholecalciferol 2,000 unit 09/05/18 09:00 Vitamin D3 (25 Mcg = 1000 Iu) PO DAILY [facility] Citalopram Hydrobromide 40 mg 09/04/18 09:30 09/04/18 11:29 Celexa PO 40 mg DAILY [facility] Administration Clonazepam 1 mg 09/04/18 16:00 09/04/18 11:29 Klonopin PO 1 mg TID PRN Administration Anxiety Clopidogrel Bisulfate 75 mg 09/04/18 11:30 09/04/18 11:35 Plavix PO 75 mg DAILY [facility] Administration Ferrous Sulfate 325 mg 09/04/18 12:00 09/04/18 11:29 Feosol PO 325 mg DAILY@1200 [facility] Administration Furosemide 40 mg 09/04/18 09:22 09/04/18 11:30 Lasix PO 40 mg DAILY [facility] Administration Gabapentin 300 mg 09/04/18 16:00 09/04/18 23:11 Neurontin PO 300 mg Q8HR [facility] Administration Heparin Sodium (Porcine) 0 unit 09/04/18 11:17 Heparin IV PER PROTOCOL PRN Low PTT Protocol Heparin Sodium/Sodium Chloride 250 mls @ 10.005 mls/hr 09/04/18 11:30 09/05/18 04:46 25,000 unit/ Sodium Chloride IV 9.28 units/kg/hr .Q24H [facility] 12.754 mls/hr Titration Protocol 7.28 UNITS/KG/HR Insulin Aspart 0 unit 09/04/18 07:30 09/05/18 06:54 Novolog SQ Not Given ACHS [facility] Protocol Insulin Aspart 5 unit 09/04/18 12:30 09/05/18 06:54 Novolog SQ Not Given AC-TID [facility] Insulin Detemir 50 unit 09/04/18 21:00 09/04/18 20:45 Levemir SQ 50 unit HS [facility] Administration Isosorbide Mononitrate 30 mg 09/05/18 09:15 Imdur PO DAILY [facility] Lisinopril 5 mg 09/05/18 09:15 Zestril PO DAILY [facility] Metoprolol Tartrate 25 mg 09/04/18 11:30 09/04/18 20:45 Lopressor PO 25 mg TID [facility] Administration Montelukast Sodium 10 mg 09/04/18 21:00 09/04/18 20:45 Singulair PO 10 mg HS [facility] Administration Nitroglycerin 0.4 mg 09/04/18 09:16 Nitrostat SUBLINGUAL Q5M PRN Chest Pain Lubiprostone [ 24 mcg 09/04/18 21:00 09/04/18 20:47 Amitiza] PO Not Given BID [facility] Pantoprazole Sodium 40 mg 09/05/18 06:00 09/05/18 06:50 Protonix PO 40 mg DAILY@0600 [facility] Administration Prednisone 20 mg 09/05/18 09:00 PO DAILY [facility] Tramadol HCl 100 mg 09/04/18 09:16 09/04/18 11:29 Ultram PO 100 mg TID PRN Administration Pain Intake and Output 09/04/18 09/05/18 09/05/18 22:59 06:59 14:59 Intake Total 585.214 78.65 Balance 585.214 78.65 Intake: Intake, IV Titration 95.214 78.65 Amount Heparin Sod,Pork in 0.45% 95.214 78.65 NaCl 25,000 unit In 0.45 % NaCl 1 250ml.bag @ 7.28 UNITS/KG/HR 10.005 mls/ hr IV .Q24H [facility] Rx#: [id number] Oral 490 Other: Voiding Method Incontinent Incontinent Incontinent # Voids 3 1 Weight 139.5 kg 09/05/18 04:26 09/05/18 04:26 EKG Interpretations (text) Sinus rhythm with no acute ST-T wave abnormalities Assessment and Plan Assessment: #1 non-ST elevation PA #2 known history of CAD with prior stenting of LAD and critical disease involving the left circumflex with unsuccessful PCI #3 hypertension #4 hyperlipidemia #5 diabetes mellitus type 2 Plan: From cardiology's perspective we will discontinue nitropaste and add oral nitrate, add lisinopril. Schedule her to undergo cardiac cath with Dr. Mancera. The procedure including risks, benefits and possible outcomes were discussed in detail with the patient. Further recommendations to follow. [facility] note has been reviewed, I agree with a documented findings and plan of care. Patient was seen and examined.
[2018-09-05] MEDS: HEPARIN SOD,PORK IN 0.45% NACL 25,000 UNIT in 0.45% NACL 1 250ML.BAG IV SCH (09:57)
[2018-09-05] MEDS: traMADol 50 MG TAB PO PRN (09:58)
[2018-09-05] MEDS: FERROUS SULFATE 325 MG TAB PO SCH (12:36)
[2018-09-05 12:50] LABS: Glucose,Whole Blood 87 mg/dL (75-99)
[2018-09-05] MEDS ORDERED: LIDOCAINE 1% INJ 10MG/ML (20 ML MDV) ONE (14:18)
[2018-09-05] MEDS ORDERED: IV FLUID CONTINUATION 1,000 ML IV ONE (14:30)
[2018-09-05] MEDS ORDERED: MIDAZOLAM (PF) 2 MG/2 ML VIAL IV ONE (14:40)
[2018-09-05] MEDS ORDERED: LIDOCAINE 1% INJ 10MG/ML (20 ML MDV) SQ ONE (14:41)
[2018-09-05] MEDS ORDERED: IOPAMIDOL-370 125ML BTL INJ ONE (14:56)
[2018-09-05] MEDS ORDERED: RX INFO: IV CONTRAST WAS GIVEN 1 EACH MISC MISCELLANE PRN (15:03)
[2018-09-05] MEDS ORDERED: SODIUM CHLORIDE 0.9% 1,000 ML IV SCH (15:15)
--- NOTE | 2018-09-05 15:32 | CC ---
CARDIAC CATHETERIZATION REPORT DATE OF SERVICE: 09/05/2018 PERFORMING PHYSICIAN: Hermes Mancera MD, Vacuum Drier Tender. PROCEDURE PERFORMED: 1. Selective right and left coronary angiogram. 2. Left heart catheterization. 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 There was concern about acute non ST elevation myocardial infarction and because of that, heart catheterization was advised. APPROACH: Right common femoral artery. COMPLICATION: None LEVEL OF SEDATION: Moderate with sedation length of 13 minutes. PROCEDURE DESCRIPTION: After obtaining an informed consent, the patient was brought to the cardiac cath lab tech. The right common femoral artery was cannulated using micropuncture technique, the micropuncture wire passed easily, then I placed a 6-Georgian sheath in the right common femoral artery. After that, I did selective right and left coronary angiogram using JR4 and JL4 catheters. Left heart catheterization was performed using 6-Georgian pigtail catheter. The procedure was completed without any complication. SELECTIVE CORONARY ANGIOGRAM: 1. The right coronary artery is a large caliber vessel and it is a dominant vessel. The mid RCA has mild disease only in the range of 23%. Distally bifurcates into PDA and PLV branches. both appeared to be angiographically normal. 2. The left main is angiographically normal. Left main bifurcates into the left circumflex and left anterior descending artery. 3. The left circumflex is now chronically occluded in the proximal portion. 4. The LAD, the proximal LAD is stented and the stent is patent. The mid LAD appeared to have mild disease only and the LAD distally appeared to be angiographically normal. The LAD gives rise into multiple small diagonal branches. HEMODYNAMICS: The left ventricular end pressure was 8 mmHg without significant gradient across the aortic valve. CONCLUSION: 1. Chronic total occlusion of the ostial and proximal left circumflex coronary artery. 2. Patent stent in the left anterior descending artery. POSTPROCEDURE MANAGEMENT: Giving the above anatomy, I did recommend maximized medical treatment and follow up with the patient. MMODL / IJN: [id number] /
--- NOTE | 2018-09-05 16:34 | P.PN ---
Subjective Progress Note Date: 09/05/18 This is a 73-year-old female resident of [facility] admitted with chest pain in a patient with history of asthma, CAD-stents, a history of CVA/TIA, diabetes mellitus, gastroesophageal reflux disease, hypertension, chronic hypoxic respiratory failure, and multiple other medical issues. Reports developed m idsternal chest pain radiating to left breast and further to left shoulder around midnight just prior to dozing off to sleep. Blood pressure at [facility] to 214/88. Received 3 sublingual nitroglycerin with no relief, aspirin, blood pressure stabilized for transfer and patient transferred to [facility] ER. On arrival, no acute distress,VSS- blood pressure 133/69, afebrile. Maintaining O2 sats of high 90s to 100% on room air. troponin 0.04. WBC 16.6, blood sugar elevated at 291. EKG reported sinus rhythm with. Echo reporting normal LV function, EF 55-60%. Chest x-ray reporting possible mild pulmonary congestion/edema.Admitted, cardiology consulted. 09/05/2018 troponin 0.041, 0.252, 0.201, 0.187. Maintained on heparin drip. Evaluated by cardiology, scheduled for cardiac catheterization today. Reports mild chest pain earlier this morning. Tolerating lying flat in bed. Objective - Vital Signs Vital signs: Vital Signs Temp 97.1 F L 09/05/18 11:45 Pulse 56 L 09/05/18 12:22 Resp 18 09/05/18 11:45 BP 139/65 09/05/18 11:45 Pulse Ox 97 09/05/18 11:45 Intake & Output 09/04/18 09/05/18 09/05/18 18:59 06:59 18:59 Intake Total 970 173.864 141.108 Balance 970 173.864 141.108 Weight 139.5 kg Intake: IV 75 Intake, IV Titration 173.864 66.108 Amount Heparin Sod,Pork in 0.45% 173.864 66.108 NaCl 25,000 unit In 0.45 % NaCl 1 250ml.bag @ 7.28 UNITS/KG/HR 10.005 mls/ hr IV .Q24H [facility] Rx#: [id number] Oral 970 Other: Voiding Method Incontinent Incontinent Incontinent # Voids 3 1 1 # Bowel Movements 0 - Exam VITAL SIGNS: As above GENERAL: Sitting up in bed, no acute distress HEENT: Conjunctivae normal. eyes normal. Oral mucosa moist NECK: No JVD. No thyroid enlargement. No LNs CARDIOVASCULAR: S1, S2 regular. Systolic murmur, no rubs, no gallops RESPIRATION: Breath sounds diminished in the bases. No rhonchi or crackles. No bronchial breathing. ABDOMEN: Soft, obese, nontender . No guarding. no masses palpable.Bowel sounds heard. LEGS: No edema. no swelling PSYCHIATRY: Alert and oriented X3, mood and affect normal. NERVOUS SYSTEM: Cranial N 2-12 grossly normal. Moves all 4 limbs. Diffuse weakness No focal deficits. Skin: no lesions, no rash Lymphatic system. No LN neck axilla or groin. - Labs CBC & Chem 7: 09/05/18 04:26 09/05/18 04:26 Labs: Abnormal Lab Results - Last 24 Hours (Table) 09/04/18 09/04/18 09/04/18 Range/Units 17:12 18:56 18:56 WBC (3.8-10.6) k/uL MCV (80.0-100.0) fL Neutrophils # (1.3-7.7) k/uL APTT 40.2 H (22.0-30.0) sec Carbon Dioxide (22-30) mmol/L BUN (7-17) mg/dL Glucose (74-99) mg/dL POC Glucose (mg/dL) 238 H (75-99) mg/dL Troponin I 0.201 H* (0.000-0.034) ng/mL HDL Cholesterol (40-60) mg/dL 09/04/18 09/05/18 09/05/18 Range/Units 20:41 00:27 04:26 WBC (3.8-10.6) k/uL MCV (80.0-100.0) fL Neutrophils # (1.3-7.7) k/uL APTT (22.0-30.0) sec Carbon Dioxide 36 H (22-30) mmol/L BUN 42 H (7-17) mg/dL Glucose 57 L (74-99) mg/dL POC Glucose (mg/dL) 280 H (75-99) mg/dL Troponin I 0.187 H* (0.000-0.034) ng/mL HDL Cholesterol 62 H (40-60) mg/dL 09/05/18 09/05/18 09/05/18 Range/Units 04:26 04:26 06:27 WBC 17.0 H (3.8-10.6) k/uL MCV 101.8 H (80.0-100.0) fL Neutrophils # 11.5 H (1.3-7.7) k/uL APTT 70.8 H (22.0-30.0) sec Carbon Dioxide (22-30) mmol/L BUN (7-17) mg/dL Glucose (74-99) mg/dL POC Glucose (mg/dL) 61 L (75-99) mg/dL Troponin I (0.000-0.034) ng/mL HDL Cholesterol (40-60) mg/dL 09/05/18 Range/Units 06:45 WBC (3.8-10.6) k/uL MCV (80.0-100.0) fL Neutrophils # (1.3-7.7) k/uL APTT (22.0-30.0) sec Carbon Dioxide (22-30) mmol/L BUN (7-17) mg/dL Glucose (74-99) mg/dL POC Glucose (mg/dL) 72 L (75-99) mg/dL Troponin I (0.000-0.034) ng/mL HDL Cholesterol (40-60) mg/dL Assessment and Plan Assessment: -Acute chest pain, NSTEMI -CAD with history of stents -Hypertension -Diabetes mellitus, uncontrolled, hyperglycemia -HX of CVA/TIA -Chronic Hypoxic Respiratory failure -Poss. Pulmonary edema per CXR, doubt acute diastolic CHF given current clinical presentation. Plan:Continue on current medication regime , LINDSAY inhibitor, Imdur monitoring and symptomatic treatment.NPO, scheduled for cardiac catheterization today .follow closely with cardiology further recommendations to follow. The impression and plan of care has been dictated as directed. : I performed a history and examination of this patient, discussed the same with the dictator. I agree with the dictator's note ,documented as a scribe. Any additional findings or plans will be noted. Time taken: 35 minutes
[2018-09-05 16:45] LABS: Glucose,Whole Blood 123 mg/dL (75-99)
[2018-09-05] MEDS: MONTELUKAST 10 MG TAB PO SCH (19:45)
[2018-09-05] MEDS: ARIPiprazole 5 MG TAB PO SCH (19:45)
[2018-09-05] MEDS: ATORVASTATIN 40 MG TAB PO SCH (19:45)
[2018-09-05 21:38] LABS: Glucose,Whole Blood 228 mg/dL (75-99)
[2018-09-05] MEDS: INSULIN DETEMIR (LEVEMIR) 100 UNIT/ML SYR SQ SCH (21:52)
[2018-09-06 06:16] LABS: Macrocytosis Slight
[2018-09-06 06:27] LABS: African American GFR (CKD) >90 (>60 ml/min/1.73 sqM); Anion Gap 2 mmol/L; Blood Urea Nitrogen 36 mg/dL (7-17); Calcium 8.8 mg/dL (8.4-10.2); Carbon Dioxide 36 mmol/L (22-30); Chloride 101 mmol/L (98-107); Glucose 98 mg/dL (74-99); Potassium 4.1 mmol/L (3.5-5.1); Sodium 139 mmol/L (137-145)
[2018-09-06 06:34] LABS: Glucose,Whole Blood 96 mg/dL (75-99)
[2018-09-06 06:36] LABS: WBC 13.3 k/uL (3.8-10.6)
[2018-09-06 06:37] LABS: RBC 3.77 m/uL (3.80-5.40)
[2018-09-06 06:38] LABS: HCT 37.6 % (34.0-46.0); HGB 12.3 gm/dL (11.4-16.0)
[2018-09-06 06:39] LABS: MCV 99.7 fL (80.0-100.0)
[2018-09-06 06:40] LABS: MCH 32.8 pg (25.0-35.0); MCHC 32.9 g/dL (31.0-37.0); RDW 15.2 % (11.5-15.5)
[2018-09-06 06:41] LABS: Mean Platelet Volume 7.4; Platelet Count 192 k/uL (150-450)
[2018-09-06 06:47] LABS: Neutrophils % (A) 75 %
[2018-09-06 06:48] LABS: Basophils % (A) 1 %; Eosinophils % (A) 2 %; Lymphocytes % (A) 16 %; Monocytes % (A) 6 %
[2018-09-06 07:00] LABS: Lymphocytes # (A) 2.2 k/uL (1.0-4.8)
[2018-09-06 07:01] LABS: Basophils # (A) 0.1 k/uL (0-0.2); Eosinophils # (A) 0.2 k/uL (0-0.7); Monocytes # (A) 0.7 k/uL (0-1.0)
[2018-09-06 07:06] LABS: Glucose,Whole Blood 78 mg/dL (75-99)
[2018-09-06] MEDS: PANTOPRAZOLE 40 MG TABLET PO SCH (07:06)
[2018-09-06] MEDS: INSULIN ASPART (NovoLOG) 100 UNIT/ML VIAL SQ SCH ×7 (07:07→22:10)
[2018-09-06] MEDS: IPRATROPIUM-ALBUTEROL 3 ML NEB INHALATION SCH ×3 (07:39→21:13)
[2018-09-06] MEDS: SYMBICORT 80-4.5 MCG INHALER INHALATION SCH ×2 (07:39→21:13)
[2018-09-06] MEDS: ASPIRIN 81 MG PO SCH (10:04)
[2018-09-06] MEDS: CLOPIDOGREL 75 MG TAB PO SCH (10:04)
[2018-09-06] MEDS: CHOLECALCIFEROL 1,000 UNIT TAB PO SCH (10:04)
[2018-09-06] MEDS: LISINOPRIL 5 MG TAB PO SCH (10:04)
[2018-09-06] MEDS: GABAPENTIN 300 MG CAP PO SCH ×3 (10:04→23:01)
[2018-09-06] MEDS: CITALOPRAM HYDROBROMIDE 20 MG TAB PO SCH (10:04)
[2018-09-06] MEDS: FUROSEMIDE 40 MG TAB PO SCH (10:05)
[2018-09-06] MEDS: METOPROLOL TARTRATE 25 MG TAB PO SCH ×3 (10:05→22:09)
[2018-09-06] MEDS: ISOSORBIDE MONONITRATE ER 30 MG TAB.ER.24H PO SCH (10:05)
[2018-09-06] MEDS: predniSONE 20 MG TAB PO SCH (10:05)
[2018-09-06] MEDS: traMADol 50 MG TAB PO PRN ×2 (10:07→17:37)
--- NOTE | 2018-09-06 10:07 | PN ---
PROGRESS NOTE Ms. Garvin is a 73-year-old female with known history of coronary artery disease status post multivessel stenting, who presented with symptoms of chest discomfort and mild troponin elevation. She was evaluated by Dr. Mancera yesterday and underwent cardiac catheterization, was found to have a chronically occluded left circumflex with patent LAD. She is feeling well today. She has mild dyspnea but no chest pain. She has no dizziness or palpitations. She continues to be on aspirin once a day, Lipitor 40 mg daily, clonazepam, Plavix 75 mg daily, furosemide 40 mg daily, insulin, isosorbide mononitrate 30 mg daily, lisinopril 5 mg daily, metoprolol tartrate 25 mg 3 times a day. PHYSICAL EXAMINATION: Blood pressure 118/60 with a heart rate in 50s. LUNGS: Clear. HEART: Regular rate and rhythm, S1, S2. No S3 with systolic murmur. No diastolic murmur. ABDOMEN: Soft, obese, nontender. Right groin hematoma with excoriation noted. EXTREMITIES: No edema. LAB DATA: Lab data revealed BUN and creatinine 36 and 0.7, potassium 4.1, hemoglobin 12.3. IMPRESSION: 1. Non ST-segment elevation myocardial infarction with chronically occluded left circumflex. 2. Multivessel stenting with patent LAD and right coronary artery. 3. History of hypertension. 4. Hyperlipidemia. 5. Obesity. RECOMMENDATION: From the cardiac standpoint, she is stable. I would expect she should be able to be discharged home today and followed as an outpatient with Dr. Mancera. MMODL / IJN: [id number] /
[2018-09-06] MEDS: Lubiprostone [Amitiza] PO SCH ×2 (11:05→22:12)
[2018-09-06] MEDS: FERROUS SULFATE 325 MG TAB PO SCH (11:25)
[2018-09-06 12:05] LABS: Glucose,Whole Blood 129 mg/dL (75-99)
--- NOTE | 2018-09-06 12:07 | P.PN ---
Subjective Progress Note Date: 09/06/18 This is a 73-year-old female resident of [facility] admitted with chest pain in a patient with history of asthma, CAD-stents, a history of CVA/TIA, diabetes mellitus, gastroesophageal reflux disease, hypertension, chronic hypoxic respiratory failure, and multiple other medical issues. Reports developed m idsternal chest pain radiating to left breast and further to left shoulder around midnight just prior to dozing off to sleep. Blood pressure at [facility] to 214/88. Received 3 sublingual nitroglycerin with no relief, aspirin, blood pressure stabilized for transfer and patient transferred to [facility] ER. On arrival, no acute distress,VSS- blood pressure 133/69, afebrile. Maintaining O2 sats of high 90s to 100% on room air. troponin 0.04. WBC 16.6, blood sugar elevated at 291. EKG reported sinus rhythm with. Echo reporting normal LV function, EF 55-60%. Chest x-ray reporting possible mild pulmonary congestion/edema.Admitted, cardiology consulted. 09/05/2018 troponin 0.041, 0.252, 0.201, 0.187. Maintained on heparin drip. Evaluated by cardiology, scheduled for cardiac catheterization today. Reports mild chest pain earlier this morning. Tolerating lying flat in bed. 09/06/2017 status post cardiac catheterization yesterday, reporting chronic total occlusion of all see him proximal left circumflex, patent LAD stent. Cardiology recommended maximizing medical treatment. Tolerated procedure well. No further chest pain, denies palpitations or shortness of breath. Positive bowel movement. Objective - Vital Signs Vital signs: Vital Signs Temp 98.2 F 09/06/18 03:19 Pulse 58 L 09/06/18 07:52 Resp 18 09/06/18 04:00 BP 118/62 09/06/18 04:00 Pulse Ox 98 09/06/18 07:39 Intake & Output 09/05/18 09/06/18 09/06/18 18:59 06:59 18:59 Intake Total 555.337 2450 Balance 841.421 7272 Weight 141 kg Intake: IV 75 Intake, IV Titration 141.108 600 Amount Heparin Sod,Pork in 0.45% 66.108 NaCl 25,000 unit In 0.45 % NaCl 1 250ml.bag @ 7.28 UNITS/KG/HR 10.005 mls/ hr IV .Q24H [facility] Rx#: [id number] Sodium Chloride 0.9% 1, 75 600 000 ml @ 75 mls/hr IV . [id number] [facility] Rx#:[id number] Oral 120 600 Other: Voiding Method Incontinent Incontinent # Voids 1 2 # Bowel Movements 0 1 - Exam VITAL SIGNS: As above GENERAL: Laying in bed, no acute distress HEENT: Conjunctivae normal. eyes normal. Oral mucosa moist NECK: No JVD. No thyroid enlargement. No LNs CARDIOVASCULAR: S1, S2 regular. Systolic murmur, no rubs, no gallops RESPIRATION: Breath sounds diminished in the bases. No rhonchi or crackles. ABDOMEN: Soft, obese, nontender . No guarding. no masses palpable.Bowel sounds heard. LEGS: No edema. no swelling PSYCHIATRY: Alert and oriented X3, mood and affect normal. NERVOUS SYSTEM: Cranial N 2-12 grossly normal. Moves all 4 limbs. Diffuse weakness No focal deficits. - Labs CBC & Chem 7: 09/06/18 06:01 09/06/18 06:01 Labs: Abnormal Lab Results - Last 24 Hours (Table) 09/05/18 09/05/18 09/06/18 Range/Units 16:30 21:37 06:01 WBC 13.3 H (3.8-10.6) k/uL RBC 3.77 L (3.80-5.40) m/uL Neutrophils # 10.0 H (1.3-7.7) k/uL Carbon Dioxide (22-30) mmol/L BUN (7-17) mg/dL POC Glucose (mg/dL) 123 H 228 H (75-99) mg/dL 09/06/18 Range/Units 06:01 WBC (3.8-10.6) k/uL RBC (3.80-5.40) m/uL Neutrophils # (1.3-7.7) k/uL Carbon Dioxide 36 H (22-30) mmol/L BUN 36 H (7-17) mg/dL POC Glucose (mg/dL) (75-99) mg/dL Assessment and Plan Assessment: -Acute chest pain, NSTEMI , status post cardiac catheterization reporting chronic total occlusion of the ostial and proximal left circumflex with patent LAD stent. -CAD with history of stents -Hypertension -Diabetes mellitus, uncontrolled, hyperglycemia -HX of CVA/TIA -Chronic Hypoxic Respiratory failure -Poss. Pulmonary edema per CXR, doubt acute diastolic CHF given current clinical presentation. Plan:Continue on current medication regime , monitoring and symptomatic treatment. Maximizing medical therapy as per cardiology. Discharge planning in progress for return to subacute rehab tomorrow. The impression and plan of care has been dictated as directed. : I performed a history and examination of this patient, discussed the same with the dictator. I agree with the dictator's note ,documented as a scribe. Any additional findings or plans will be noted. Time taken: 35 minutes
[2018-09-06 17:11] LABS: Glucose,Whole Blood 344 mg/dL (75-99)
[2018-09-06] MEDS: MONTELUKAST 10 MG TAB PO SCH (20:40)
[2018-09-06] MEDS: ARIPiprazole 5 MG TAB PO SCH (20:40)
[2018-09-06] MEDS: ATORVASTATIN 40 MG TAB PO SCH (20:40)
[2018-09-06 21:20] LABS: Glucose,Whole Blood 417 mg/dL (75-99)
[2018-09-06] MEDS: INSULIN DETEMIR (LEVEMIR) 100 UNIT/ML SYR SQ SCH (22:10)
[2018-09-07 06:46] LABS: Glucose,Whole Blood 101 mg/dL (75-99)
[2018-09-07] MEDS: INSULIN ASPART (NovoLOG) 100 UNIT/ML VIAL SQ SCH ×4 (06:48→12:39)
[2018-09-07] MEDS: PANTOPRAZOLE 40 MG TABLET PO SCH (06:51)
[2018-09-07 06:55] LABS: HCT 38.1 % (34.0-46.0); HGB 12.3 gm/dL (11.4-16.0); MCH 32.1 pg (25.0-35.0); MCHC 32.2 g/dL (31.0-37.0); MCV 99.7 fL (80.0-100.0); Macrocytosis Slight; Mean Platelet Volume 7.5; Platelet Count 198 k/uL (150-450); RBC 3.82 m/uL (3.80-5.40); RDW 15.4 % (11.5-15.5); WBC 13.2 k/uL (3.8-10.6)
[2018-09-07 07:07] LABS: African American GFR (CKD) >90 (>60 ml/min/1.73 sqM); Anion Gap 5 mmol/L; Blood Urea Nitrogen 34 mg/dL (7-17); Calcium 9.4 mg/dL (8.4-10.2); Carbon Dioxide 33 mmol/L (22-30); Chloride 101 mmol/L (98-107); Glucose 93 mg/dL (74-99); Potassium 4.2 mmol/L (3.5-5.1); Sodium 139 mmol/L (137-145)
[2018-09-07 07:50] LABS: Band Neutrophils % 1 %; Eosinophils # (M) 0.26 k/uL (0-0.7); Lymphocytes # (M) 1.85 k/uL (1.0-4.8); Metamyelocytes # (M) 0.13 k/uL (0); Metamyelocytes % 1 %; Monocytes # (M) 0.53 k/uL (0-1.0); Myelocytes # (M) 0.79 k/uL (0); Myelocytes % 6 %; Neutrophils % (M) 74 %; Nucleated Red Blood Cells 0 /100 WBC (0-0); Total Cells Counted 200
[2018-09-07 07:51] LABS: Polychromasia Present
[2018-09-07 07:52] LABS: Toxic Granulation Present
[2018-09-07 08:18] VITALS: RESP 18
[2018-09-07] MEDS: CITALOPRAM HYDROBROMIDE 20 MG TAB PO SCH (08:53)
[2018-09-07] MEDS: GABAPENTIN 300 MG CAP PO SCH (08:53)
[2018-09-07] MEDS: CLOPIDOGREL 75 MG TAB PO SCH (08:53)
[2018-09-07] MEDS: METOPROLOL TARTRATE 25 MG TAB PO SCH (08:53)
[2018-09-07] MEDS: ASPIRIN 81 MG PO SCH (08:53)
[2018-09-07] MEDS: LISINOPRIL 5 MG TAB PO SCH (08:54)
[2018-09-07] MEDS: predniSONE 20 MG TAB PO SCH (08:54)
[2018-09-07] MEDS: FUROSEMIDE 40 MG TAB PO SCH (08:54)
[2018-09-07] MEDS: FERROUS SULFATE 325 MG TAB PO SCH (08:54)
[2018-09-07] MEDS: CHOLECALCIFEROL 1,000 UNIT TAB PO SCH (08:54)
[2018-09-07] MEDS: ISOSORBIDE MONONITRATE ER 30 MG TAB.ER.24H PO SCH (08:54)
[2018-09-07] MEDS: Lubiprostone [Amitiza] PO SCH (09:03)
--- NOTE | 2018-09-07 09:47 | P.DS ---
Providers Date of admission: 09/05/18 10:20 Expected date of discharge: 09/07/18 Attending physician: Chris Yi Consults: 09/04/18 06:59 Consult Physician Urgent Consulting Provider: [facility] Reason/Comments: chest pain, HTN Do you want consulting provider notified?: Yes, Notify in am Primary care physician: Chris Yi [facility] Course: Final Diagnoses: -Acute chest pain,: NSTEMI , status post cardiac catheterization reporting chronic total occlusion of the ostial and proximal left circumflex with patent LAD stent. -CAD with history of stents -Hypertension -Diabetes mellitus, uncontrolled, hyperglycemia -HX of CVA/TIA -Chronic Hypoxic Respiratory failure -Poss. Pulmonary edema per CXR, doubt acute diastolic CHF given current clinical presentation. Hospital course:This is a 73-year-old female resident of [facility] admitted with chest pain in a patient with history of asthma, CAD-stents, a history of CVA/TIA, diabetes mellitus, gastroesophageal reflux disease, hypertension, chronic hypoxic respiratory failure, and multiple other medical issues. Reports developed midsternal chest pain radiating to left breast and further to left shoulder around midnight just prior to dozing off to sleep. Blood pressure at [facility] to 214/88. Received 3 sublingual nitroglycerin with no relief, aspirin, blood pressure stabilized for transfer and patient transferred to [facility]. On arrival, no acute distress,VSS- blood pressure 133/69, afebrile. Maintaining O2 sats of high 90s to 100% on room air. troponin 0.04. WBC 16.6, blood sugar elevated at 291. EKG reported sinus rhythm with. Echo reporting normal LV function, EF 55-60%. Chest x-ray reporting possible mild pulmonary congestion/edema.Admitted, cardiology consulted. 09/05/2018 troponin 0.041, 0.252, 0.201, 0.187. Maintained on heparin drip. Evaluated by cardiology, scheduled for cardiac catheterization today. Reports mild chest pain earlier this morning. Tolerating lying flat in bed. 09/06/2017 status post cardiac catheterization yesterday, reporting chronic total occlusion of all see him proximal left circumflex, patent LAD stent. Cardiology recommended maximizing medical treatment. Tolerated procedure well. No further chest pain, denies palpitations or shortness of breath. Positive bowel movement. Significant clinical improvement. Patient has been cleared by cardiology for discharge. Patient is being discharged to [facility] subacute rehab in stable condition with guarded prognosis. - Exam GENERAL: Alert and oriented 3, no acute distress CARDIOVASCULAR: S1, S2 regular. Systolic murmur, no rubs, no gallops RESPIRATION: Breath sounds diminished in the bases. ABDOMEN: Soft, obese, nontender . No guarding. no masses palpable.Bowel sounds heard. NERVOUS SYSTEM: Cranial N 2-12 grossly normal. Diffuse weakness No focal deficits. The impression and plan of care has been dictated as directed. : I performed a history and examination of this patient, discussed the same with the dictator. I agree with the dictator's note ,documented as a scribe. Any additional findings or plans will be noted. Time taken: 35 minutes Patient Condition at Discharge: Stable Plan - Discharge Summary New Discharge Prescriptions: New Ipratropium-Albuterol Nebulize [Duoneb 0.5 mg-3 mg/3 ml Soln] 3 ml INHALATION Q4H PRN ampul.neb PRN Reason: Shortness Of Breath Or Wheezing Metoprolol Tartrate [Lopressor] 25 mg PO TID tab Clopidogrel [Plavix] 75 mg PO DAILY tab Lisinopril [Zestril] 5 mg PO DAILY tab Continue Citalopram Hydrobromide [CeleXA] 40 mg PO DAILY Nitroglycerin Sl Tabs [Nitrostat] 0.4 mg SUBLINGUAL Q5M PRN #30 tab PRN Reason: Chest Pain Atorvastatin [Lipitor] 40 mg PO HS Aspirin EC [Ecotrin Low Dose] 81 mg PO DAILY Acetaminophen [Tylenol] 650 mg PO Q6H PRN PRN Reason: Pain Cholecalciferol [Vitamin D3 (25 Mcg = 1000 Iu)] 2,000 unit PO DAILY tab predniSONE 20 mg PO DAILY Albuterol Sulfate [Proair Hfa] 1 - 2 puff INHALATION RT-Q6H PRN PRN Reason: Shortness Of Breath Bisacodyl [Dulcolax] 10 mg RECTAL DAILY PRN supp PRN Reason: Constipation Furosemide [Lasix] 40 mg PO DAILY tab Insulin Detemir (Levemir) [Levemir] 50 unit SQ HS syr Fluticasone/Vilanterol [Breo Ellipta 100-25 Mcg Inhaler] 1 puff INHALATION RT-HS Montelukast Sodium [Singulair] 10 mg PO HS Ipratropium-Albuterol Nebulize [Duoneb 0.5 mg-3 mg/3 ml Soln] 3 ml INHALATION RT-TID Bismuth Subsalicylate [Pepto-Bismol] 524 mg PO Q4H PRN PRN Reason: UPSET STOMACH INSULIN LISPRO (HumaLOG) [humaLOG] See Protocol SQ ACHS Insulin Lispro [humaLOG Kwikpen] 5 unit SQ AC-TID Pantoprazole [Protonix] 40 mg PO DAILY@0600 Lubiprostone [Amitiza] 24 mcg PO BID Isosorbide Mononitrate ER [Imdur] 30 mg PO DAILY Ferrous Sulfate [Iron (65 MG Elemental)] 325 mg PO DAILY@1200 ARIPiprazole [Abilify] 5 mg PO HS@2100 clonazePAM [KlonoPIN] 1 mg PO TID #9 tab Gabapentin [Neurontin] 300 mg PO Q8HR #9 cap traMADol HCl [Ultram] 100 mg PO TID #18 tab Discontinued Metoprolol Tartrate [Lopressor] 12.5 mg PO BID Discharge Medication List Citalopram Hydrobromide [CeleXA] 40 mg PO DAILY 09/20/14 [History] Nitroglycerin Sl Tabs [Nitrostat] 0.4 mg SUBLINGUAL Q5M PRN #30 tab 12/23/16 [Rx] Atorvastatin [Lipitor] 40 mg PO HS 01/30/17 [History] Aspirin EC [Ecotrin Low Dose] 81 mg PO DAILY 12/14/17 [History] Acetaminophen [Tylenol] 650 mg PO Q6H PRN 01/16/18 [History] Cholecalciferol [Vitamin D3 (25 Mcg = 1000 Iu)] 2,000 unit PO DAILY tab 03/19/18 [Rx] Albuterol Sulfate [Proair Hfa] 1 - 2 puff INHALATION RT-Q6H PRN 06/04/18 [History] predniSONE 20 mg PO DAILY 06/04/18 [History] Bisacodyl [Dulcolax] 10 mg RECTAL DAILY PRN supp 06/08/18 [Rx] Furosemide [Lasix] 40 mg PO DAILY tab 06/08/18 [Rx] Insulin Detemir (Levemir) [Levemir] 50 unit SQ HS syr 06/08/18 [Rx] Fluticasone/Vilanterol [Breo Ellipta 100-25 Mcg Inhaler] 1 puff INHALATION RT-HS 07/02/18 [History] Montelukast Sodium [Singulair] 10 mg PO HS 07/02/18 [History] Ipratropium-Albuterol Nebulize [Duoneb 0.5 mg-3 mg/3 ml Soln] 3 ml INHALATION RT-TID 07/10/18 [History] ARIPiprazole [Abilify] 5 mg PO HS@2100 09/04/18 [History] Bismuth Subsalicylate [Pepto-Bismol] 524 mg PO Q4H PRN 09/04/18 [History] Ferrous Sulfate [Iron (65 MG Elemental)] 325 mg PO DAILY@1200 09/04/18 [History] INSULIN LISPRO (HumaLOG) [humaLOG] See Protocol SQ ACHS 09/04/18 [History] Insulin Lispro [humaLOG Kwikpen] 5 unit SQ AC-TID 09/04/18 [History] Isosorbide Mononitrate ER [Imdur] 30 mg PO DAILY 09/04/18 [History] Lubiprostone [Amitiza] 24 mcg PO BID 09/04/18 [History] Pantoprazole [Protonix] 40 mg PO DAILY@0600 09/04/18 [History] Clopidogrel [Plavix] 75 mg PO DAILY tab 09/07/18 [Rx] Gabapentin [Neurontin] 300 mg PO Q8HR #9 cap 09/07/18 [Rx] Ipratropium-Albuterol Nebulize [Duoneb 0.5 mg-3 mg/3 ml Soln] 3 ml INHALATION Q4H PRN ampul.neb 09/07/18 [Rx] Lisinopril [Zestril] 5 mg PO DAILY tab 09/07/18 [Rx] Metoprolol Tartrate [Lopressor] 25 mg PO TID tab 09/07/18 [Rx] clonazePAM [KlonoPIN] 1 mg PO TID #9 tab 09/07/18 [Rx] traMADol HCl [Ultram] 100 mg PO TID #18 tab 09/07/18 [Rx] Follow up Appointment(s)/Referral(s): Hermes Mancera MD [STAFF PHYSICIAN] - 1 Week Chris Yi MD [Primary Care Provider] - 3 Days Activity/Diet/Wound Care/Special Instructions: [facility] Diet: Consistent carb, cardiac Activity: As tolerated, yadira lift CBC, BMP in 3 days Discharge Disposition: TRANSFER TO SNF/ECF
[2018-09-07] MEDS: SYMBICORT 80-4.5 MCG INHALER INHALATION SCH (09:58)
[2018-09-07] MEDS: IPRATROPIUM-ALBUTEROL 3 ML NEB INHALATION SCH (09:58)
[2018-09-07 11:04] VITALS: BP 108/57; PULSE 80; TEMP 98.1
[2018-09-07 12:20] LABS: Glucose,Whole Blood 219 mg/dL (75-99)
[2018-09-07] MEDS: traMADol 50 MG TAB PO PRN (12:43)
--- NOTE | 2018-09-07 12:46 | PN ---
PROGRESS NOTE Mrs. Garvin is a 73-year-old female with a history of coronary artery disease who presented with symptoms of chest discomfort, underwent cardiac catheterization, found to have no progression of disease with chronically occluded left circumflex. She is doing well this morning. Her breathing is stable. She denies any dizziness or palpitation. She denies any nausea. She denies any cough. She continues to be on aspirin once a day, Lipitor 40 mg daily, Plavix 75 mg daily, furosemide 40 mg daily, insulin, isosorbide mononitrate 30 mg daily, Zestril 5 mg daily, metoprolol tartrate 25 mg 3 times a day. PHYSICAL EXAMINATION: Blood pressure 108/60 with a heart rate in the 80s. LUNGS: Clear. HEART: Regular rate and rhythm. S1, S2. No S3. No rub. ABDOMEN: Soft, obese, nontender. EXTREMITIES: No edema. LAB DATA: Revealed BUN and creatinine 34 and 0.75, potassium 4.2, hemoglobin 12.3. IMPRESSION: 1. Non ST-segment elevation myocardial infarction with no progression of disease, stable. 2. Known history of multivessel stenting. 3. Hypertension. 4. Hyperlipidemia. 5. Obesity. RECOMMENDATION: From the cardiac standpoint, she should be able to be discharged home today and followed as an outpatient with Dr. Mancera. MMSTEPHENIE / FARSHAD: [id number] /
== END 2018-09-07 15:21 | DRG 281 ==
LOC: EC 02:53 → 3SCARD 06:59 → OBSVTOIN 09-05 10:20
PROVIDERS: ADMIT Family Medicine; ATTEND Family Medicine
PROC: B2111ZZ Fluoroscopy of Multiple Coronary Arteries using Low Osmolar Contrast (ICD-10-PCS; 2018-09-05)
PROC: B2151ZZ Fluoroscopy of Left Heart using Low Osmolar Contrast (ICD-10-PCS; 2018-09-05)
PROC: 4A023N7 Measurement of Cardiac Sampling and Pressure, Left Heart, Percutaneous Approach (ICD-10-PCS; principal; 2018-09-05 09:25)
DX: I21.4 Non-ST elevation (NSTEMI) myocardial infarction (principal); Z68.43 Body mass index [BMI] 50.0-59.9, adult; J96.11 Chronic respiratory failure with hypoxia; T82.855A Stenosis of coronary artery stent, initial encounter; I11.0 Hypertensive heart disease with heart failure; I50.9 Heart failure, unspecified; D72.829 Elevated white blood cell count, unspecified; E11.65 Type 2 diabetes mellitus with hyperglycemia; E66.01 Morbid (severe) obesity due to excess calories; E78.5 Hyperlipidemia, unspecified; F32.9 Major depressive disorder, single episode, unspecified; F41.9 Anxiety disorder, unspecified; G47.30 Sleep apnea, unspecified; Z99.89 Dependence on other enabling machines and devices; I25.10 Atherosclerotic heart disease of native coronary artery without angina pectoris; J45.909 Unspecified asthma, uncomplicated; K21.9 Gastro-esophageal reflux disease without esophagitis; Y83.1 Surgical operation with implant of artificial internal device as the cause of abnormal reaction of the patient, or of later complication, without mention of misadventure at the time of the procedure; Z79.02 Long term (current) use of antithrombotics/antiplatelets; Z79.4 Long term (current) use of insulin; Z79.82 Long term (current) use of aspirin; Z79.899 Other long term (current) drug therapy; Z80.42 Family history of malignant neoplasm of prostate; Z82.49 Family history of ischemic heart disease and other diseases of the circulatory system; Z82.5 Family history of asthma and other chronic lower respiratory diseases; I69.311 Memory deficit following cerebral infarction; Z90.710 Acquired absence of both cervix and uterus; Z85.41 Personal history of malignant neoplasm of cervix uteri; I08.3 Combined rheumatic disorders of mitral, aortic and tricuspid valves; M54.5 Low back pain; G89.29 Other chronic pain; Z87.01 Personal history of pneumonia (recurrent); Z88.5 Allergy status to narcotic agent; Z88.0 Allergy status to penicillin; Z88.8 Allergy status to other drugs, medicaments and biological substances; Z91.040 Latex allergy status; Z87.11 Personal history of peptic ulcer disease; Z99.81 Dependence on supplemental oxygen; Z91.81 History of falling; Z86.14 Personal history of Methicillin resistant Staphylococcus aureus infection; K58.9 Irritable bowel syndrome, unspecified; E89.2 Postprocedural hypoparathyroidism; Z98.42 Cataract extraction status, left eye; Z98.41 Cataract extraction status, right eye
CPT/HCPCS: 36415; 71046; 80048; 80053; 80061; 82272; 83735; 84484; 85025; 85610; 85730; 93005; 93306; 93458; 94640; 99285

== ENCOUNTER → 2018-11-22 | Outpatient (CLI) | payer MEDICARE ==
--- NOTE | 2018-11-22 13:00 | FL ---
MODIFIED SWALLOW / DEGLUTITION STUDY DATE OF EXAM: 11/22/2018 CLINICAL HISTORY: 73-year-old female for staging in the throat, Dysphagia. TECHNIQUE: Deglutition study is performed utilizing thin liquid barium, honey and nectar thick liqui d barium, barium thick applesauce, and barium coated cracker. COMPARISON: Correlation swallow study 08/30/2018. Total fluoroscopy time: 2 minutes 1 second Total images: None. Real-time fluoroscopy support was provided to speech pathology. FINDINGS: . The oral and pharyngeal phases show satisfactory initiation and propagation with all modalities teste d. Normal mastication is seen with solid modalities tested. There is no evidence of penetration or aspiration with any modality tested. Intermittent retropharyngeal thickening is noted. The swallowed bolus sits in the lower cervical and visualized upper thoracic esophagus with bouts of intraesophageal reflux and delayed clearance. IMPRESSION: 1. No penetration or aspiration. 2. The swallowed bolus sits in the lower cervical and visualized upper thoracic esophagus with bouts of intraesophageal reflux and significant delay in clearance. Correlate for presbyesophagus as no str icture was identified on the patient's 08/30/2018 Esophagram. Please refer to speech therapist notes for further details if necessary.
== END | disposition home or self-care (01) ==
LOC: RADFLMAIN 11:01
PROVIDERS: ATTEND Internal Medicine Gastroenterology
DX: K21.9 Gastro-esophageal reflux disease without esophagitis (principal)
CPT/HCPCS: 74230

== ENCOUNTER 2018-12-27 06:58 | Day surgery (SDC) | payer MEDICARE ==
[2018-12-25 09:47] VITALS: BMI 63.3
[~2018-12-27 06:58] MED LIST changes: +LIDOCAINE 1% 20 ML VIAL (10MG/ML) FOR IV START INTRADERMA PRN
[2018-12-27 07:30] VITALS: TEMP 97.7
[2018-12-27 07:37] LABS: Glucose,Whole Blood 158 mg/dL (75-99)
[2018-12-27] MEDS ORDERED: fentaNYL (PF) 50 MCG/ML 2 ML AMP ONE (07:40)
[2018-12-27] MEDS ORDERED: MIDAZOLAM 2 MG/2 ML VIAL ONE (07:40)
[2018-12-27] MEDS ORDERED: KETAMINE 10 MG/ML 20 ML VIAL ONE (07:40)
[2018-12-27] MEDS ORDERED: LIDOCAINE 1% INJ 10MG/ML (20 ML MDV) ONE (07:40)
[2018-12-27] MEDS ORDERED: PROPOFOL 10 MG/ML 20 ML VIAL IV ONE (07:40)
[2018-12-27 08:51] VITALS: RESP 16
--- NOTE | 2018-12-27 08:51 | P.PCN ---
Date of Procedure: 12/27/18 Description of Procedure: Brief history: Patient is a pleasant scheduled for an elective upper endoscopy as well as colonoscopy as a part of evaluation of GERD and a personal history of colon polyps. Procedure performed: Esophagogastroduodenoscopy with biopsy Colonoscopy Estimated blood loss: Minimal. Preoperative diagnosis: Anesthesia: MAC Procedure: After informed consent was obtained from the patient was brought into the endoscopy unit and IV sedation was administered by anesthesia under continuous monitoring. Initially upper endoscopy was done. The Olympus GF 190 video endoscope was inserted inserted into the mouth and esophagus intubated without any difficulty and was gradually advanced into the stomach and duodenum and carefully examined. The bulb and second part of the duodenum appeared normal, with biopsies taken to rule out celiac sprue. The scope was then withdrawn into the stomach adequately insufflated with air and upon careful examination the antrum and body, cardia and fundus appeared normal, except for some mild scattered punctate erythema in the antrum suggestive of mild antritis with biopsies of antrum and body taken. The scope was then withdrawn into the esophagus. The GE junction was located at 37 cm to the incisors, with a 2 cm hiatal hernia noted and biopsies taken. LA grade a esophagitis. Patient tolerated the procedure well. At this time the patient continued to remain sedation. Initial digital rectal examination was normal. Olympus CF 190 video colonoscope was then inserted into the rectum and gradually advanced to the cecum without any difficulty. Careful examination was performed as the scope was gradually being withdrawn. The prep was good. The cecum, ascending colon, transverse colon, descending colon, sigmoid colon and rectum appeared normal. 2 diminutive IC valve polyps measuring 2 mm and 3 mm removed with cold forcep polypectomy. 2 diminutive ascending colon polyps measuring 1 and 3 mm removed with cold forcep polypectomy. 1 diminutive 3 mm transverse colon polyp removed with cold forceps polypectomy. 2 small splenic flexure polyps measuring 3 and 4 mm removed with cold snare polypectomy. 2 diminutive descending colon polyps measuring 2 mm removed with cold forcep polypectomy. One diminutive 2 mm sigmoid polyp removed with cold forcep polypectomy. Retroflexion was performed in the rectum and no lesions were noted, grade internal hemorrhoids. Patient tolerated the procedure well. Impression: 1. Mild gastritis, antrum body biopsy. Biopsies of the duodenum and GE junction. LA grade a esophagitis. Small hiatal hernia. 2. 9 polyps measuring 1 mm to 4 mm in size removed from the colon with c ombination of cold snare polypectomy and cold forcep polypectomy (please see body of report for location, the patient removal in size of polyp). Recommendations: Findings of this examination were discussed with the patient. Okay to resume diet. Okay to resume Plavix tomorrow. Okay to resume other medications. Await pathology from polypectomy. Anticipate repeat colonoscopy in 3-5 years if the patient is medically stable at that time.
[2018-12-27 08:59] LABS: Glucose,Whole Blood 146 mg/dL (75-99)
[2018-12-27 09:30] VITALS: BP 133/71; PULSE 54
== END 2018-12-27 09:57 | disposition home or self-care (01) ==
LOC: ORWHC2ENDO 06:58
PROVIDERS: ATTEND Internal Medicine
DX: K21.0 Gastro-esophageal reflux disease with esophagitis (principal); Z12.11 Encounter for screening for malignant neoplasm of colon; D12.2 Benign neoplasm of ascending colon; D12.3 Benign neoplasm of transverse colon; D12.5 Benign neoplasm of sigmoid colon; K29.50 Unspecified chronic gastritis without bleeding; K44.9 Diaphragmatic hernia without obstruction or gangrene; Z88.5 Allergy status to narcotic agent; Z88.0 Allergy status to penicillin; Z88.8 Allergy status to other drugs, medicaments and biological substances; Z91.040 Latex allergy status; I10 Essential (primary) hypertension; E78.5 Hyperlipidemia, unspecified; I25.10 Atherosclerotic heart disease of native coronary artery without angina pectoris; J45.909 Unspecified asthma, uncomplicated; E11.9 Type 2 diabetes mellitus without complications; Z79.01 Long term (current) use of anticoagulants; Z79.899 Other long term (current) drug therapy; Z79.51 Long term (current) use of inhaled steroids; Z79.4 Long term (current) use of insulin; Z98.42 Cataract extraction status, left eye; Z98.41 Cataract extraction status, right eye
CPT/HCPCS: 88305; 45380; 45385; 43239; J2250; J2001; J3010; J2704

== ENCOUNTER 2019-01-10 23:33 | Emergency (ER) | payer MEDICARE ==
[2019-01-10 23:47] LABS: Glucose,Whole Blood 223 mg/dL (75-99)
[2019-01-10] MEDS ORDERED: SODIUM CHLORIDE 0.9% 1,000 ML IV STA (23:55)
--- NOTE | 2019-01-10 23:55 | ED ---
Abdominal Pain HPI - General Stated Complaint: Abd Pain Time Seen by Provider: 01/10/19 23:36 Source: patient, EMS Mode of arrival: EMS Limitations: no limitations - History of Present Illness Initial Comments: Carla is a morbidly obese 73-year-old female who presents to the ER today nursing facility for evaluation of abdominal pain concern for bowel traction. Patient reports she has a history of chronic constipation. She states she's been constipated this week she was given stool softeners and states she was able have a small bowel movement yesterday however she has persistent abdominal pain which is most significant in the left side of the abdomen. She feels that her abdomen is more distended than usual. He presented her nursing facility working concerned she may have developed a bowel obstruction and she was transferred to hospital via EMS. She denies any history of bowel obstructions. Her only abdominal surgery in the past as a cholecystectomy in the distant past. - Related Data Home Medications Medication Instructions Recorded Confirmed Atorvastatin [Lipitor] 40 mg PO HS@209901/30/17 01/11/19 Aspirin EC [Ecotrin Low Dose] 81 mg PO DAILY@89912/14/17 01/11/19 Acetaminophen [Tylenol] 650 mg PO Q6H PRN 01/16/18 01/11/19 Albuterol Sulfate [Proair Hfa] 2 puff INHALATION RT-Q6H PRN 06/04/18 01/11/19 Montelukast Sodium [Singulair] 10 mg PO HS@2100 07/02/18 01/11/19 ARIPiprazole [Abilify] 5 mg PO HS@2100 09/04/18 01/11/19 Bismuth Subsalicylate 524 mg PO Q4H PRN 09/04/18 01/11/19 [Pepto-Bismol] Ferrous Sulfate [Iron (65 MG 325 mg PO DAILY@89909/04/18 01/11/19 Elemental)] INSULIN LISPRO (HumaLOG) [humaLOG] 10 unit SQ AC-TID 09/04/18 01/11/19 Insulin Lispro [humaLOG Kwikpen] See Protocol SQ ACHS 09/04/18 01/11/19 Isosorbide Mononitrate ER [Imdur] 30 mg PO DAILY@89909/04/18 01/11/19 Lubiprostone [Amitiza] 24 mcg PO BID@0900,2100 09/04/18 01/11/19 Pantoprazole [Protonix] 40 mg PO BID@0600,1700 09/04/18 01/11/19 Gabapentin [Neurontin] 100 mg PO BID@0600,2200 12/25/18 01/11/19 Lisinopril [Zestril] 10 mg PO DAILY@0900 12/25/18 01/11/19 Metoprolol Tartrate [Lopressor] 25 mg PO TID@0600,1400,2200 12/25/18 01/11/19 clonazePAM [KlonoPIN] 1 mg PO TID@0600,1400,2200 12/25/18 01/11/19 predniSONE 10 mg PO DAILY@0900 12/25/18 01/11/19 traMADol HCl [Ultram] 100 mg PO TID@0600,1400,2200 12/25/18 01/11/19 Budesonide/Formoterol Fumarate 2 puff INHALATION RT-BID@0900,209901/10/19 01/11/19 [Symbicort 160-4.5 Mcg Inhaler] Citalopram Hydrobromide [CeleXA] 10 mg PO DAILY@0901/10/19 01/11/19 Citalopram Hydrobromide [CeleXA] 20 mg PO DAILY@0901/10/19 01/11/19 Insulin Detemir [Levemir Flextouch] See Protocol SQ HS@209901/10/19 01/11/19 Ipratropium-Albuterol Nebulize 3 ml INHALATION RT-Q4H PRN 01/10/19 01/11/19 [Duoneb 0.5 mg-3 mg/3 ml Soln] Loperamide HCl [Imodium A-D] 2 - 4 mg PO QID PRN 01/10/19 01/11/19 Magnesium Hydroxide [Milk of 2,400 mg PO DAILY PRN 01/10/19 01/11/19 Magnesia] Cholecalciferol [Vitamin D3 (25 2,000 unit PO HS@209901/11/19 01/11/19 Mcg = 1000 Iu)] Clopidogrel [Plavix] 75 mg PO DAILY@0900 01/11/19 01/11/19 Furosemide [Lasix] 40 mg PO DAILY@0600 01/11/19 01/11/19 Ipratropium-Albuterol Nebulize 3 ml INHALATION RT-Q8H 01/11/19 01/11/19 [Duoneb 0.5 mg-3 mg/3 ml Soln] Previous Rx's Medication Instructions Recorded Nitroglycerin Sl Tabs [Nitrostat] 0.4 mg SUBLINGUAL Q5M PRN #30 tab 12/23/16 Bisacodyl [Dulcolax] 10 mg RECTAL DAILY PRN supp 06/08/18 Allergies Allergy/AdvReac Type Severity Reaction Status Date / Time adhesive Allergy Mild Rash/Hives, Verified 01/10/19 23:41 W/ TAPES, CAN USE PAPER TAPE latex Allergy Mild Rash/Hives- Verified 01/10/19 23:41 Sores codeine Allergy Anaphylaxis Verified 01/10/19 23:41 Penicillins Allergy Anaphylaxis Verified 01/10/19 23:41 propoxyphene napsylate Allergy Anaphylaxis Verified 01/10/19 23:41 [From Darvocet-N 100] tuberculin, purified protein Allergy Rash/Hives Verified 01/10/19 23:41 deriva [tuberculin,purif.prot.deriv.] morphine AdvReac Hallucinations, Verified 01/10/19 23:41 anxious Review of Systems ROS Statement: Those systems with pertinent positive or pertinent negative responses have been documented in the HPI. ROS Other: All systems not noted in ROS Statement are negative. Past Medical History Past Medical History: Asthma, Coronary Artery Disease (CAD), Cancer, Chest Pain / Angina, Heart Failure, CVA/TIA, Diabetes Mellitus, GERD/Reflux, Hyperlipidemia, Hypertension, Memory Impairment, Pneumonia, Sleep Apnea/CPAP/BIPAP, Thyroid Disorder Additional Past Medical History / Comment(s): IDDM, unable to tolerate C-PAP, hx. 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 , states unable to stand-needs yadira lift to transfer., patient states she has constipation with "pain in bowel" and nausea., resides at [facility] on the [facility]. History of Any Multi-Drug Resistant Organisms: ESBL, MRSA Date of last positivie culture/infection: 06/05/18 ESBL/ MRSA 04/02/11 MDRO Source:: ESBL URINE / MRSA LEG, CHEST, ANKLE Past Surgical History: Bladder Surgery, Cholecystectomy, Heart Catheterization, Heart Catheterization With Stent, Hysterectomy Additional Past Surgical History / Comment(s): Angioplasty with multiple stents- pt states last stent mar 2018., partial parathyroidectomy, cataracts , I and D of L chest wall abscess and L ankle wound, bladder surgery with implant of sti mulator system 02/2010, EGD/colonoscoy, Pain procedures. Past Anesthesia/Blood Transfusion Reactions: No Reported Reaction, Motion Sickness Additional Past Anesthesia/Blood Transfusion Reaction / Comment(s): Pt states she has received blood in the past without reaction. Date of Last Stent Placement:: 06/29/16 Past Psychological History: Anxiety, Depression Smoking Status: Never smoker Past Alcohol Use History: None Reported Past Drug Use History: None Reported - Past Family History Brother(s) Family Medical History: Coronary Artery Disease (CAD) Father Family Medical History: Cancer, Coronary Artery Disease (CAD) Additional Family Medical History / Comment(s): Father had prostate cancer. Mother Family Medical History: Asthma, COPD General Exam - General Exam Comments Initial Comments: Physical Exam GENERAL: Morbidly obese No acute distress HENT: Normocephalic, Atraumatic. EYES: PERRL, EOMI PULMONARY: Hypoventilation secondary to body habitus CARDIOVASCULAR: RRR ABDOMEN: Firm distended, diffuse tenderness SKIN: Skin is clear with no lesions or rashes and otherwise unremarkable. : Deferred NEUROLOGIC: Patient is alert and oriented x3. Moving all extremities spontaneously MUSCULOSKELETAL: No obvious deformities or injuries PSYCHIATRIC: Normal psychiatric evaluation. Limitations: no limitations Course Vital Signs 01/10/19 01/11/19 01/11/19 23:36 01:00 02:00 Temperature 98.6 F Pulse Rate 63 78 55 L Respiratory 20 18 18 Rate Blood Pressure 142/64 140/66 141/71 O2 Sat by Pulse 98 97 98 Oximetry 01/11/19 02:33 Temperature Pulse Rate 53 L Respiratory 18 Rate Blood Pressure 143/59 O2 Sat by Pulse 100 Oximetry Medical Decision Making - Medical Decision Making The patient was seen and evaluated history is obtained from the patient Labs and imaging were obtained Labs resulted with leukocytosis, otherwise at baseline UA with no UTI CT imaging with no acute findings, significant stool burden Results were discussed with the patient, at this time I feel there is no indication for admission to the hospital. Patient will be discharged back to [facility] on the [place], recommend use of dulcolax suppositories - Lab Data Result diagrams: 01/10/19 23:58 01/10/19 23:58 Lab Results 01/10/19 01/10/19 01/10/19 Range/Units 23:44 23:58 23:58 WBC 14.3 H (3.8-10.6) k/uL RBC 3.39 L (3.80-5.40) m/uL Hgb 11.5 (11.4-16.0) gm/dL Hct 35.9 (34.0-46.0) % MCV 105.9 H (80.0-100.0) fL MCH 33.9 (25.0-35.0) pg MCHC 32.0 (31.0-37.0) g/dL RDW 13.3 (11.5-15.5) % Plt Count 251 (150-450) k/uL Neutrophils % 77 % Lymphocytes % 12 % Monocytes % 5 % Eosinophils % 2 % Basophils % 2 % Neutrophils # 11.1 H (1.3-7.7) k/uL Lymphocytes # 1.8 (1.0-4.8) k/uL Monocytes # 0.7 (0-1.0) k/uL Eosinophils # 0.3 (0-0.7) k/uL Basophils # 0.3 H (0-0.2) k/uL Hypochromasia Slight Macrocytosis Moderate Sodium 140 (137-145) mmol/L Potassium 4.7 (3.5-5.1) mmol/L Chloride 100 (98-107) mmol/L Carbon Dioxide 36 H (22-30) mmol/L Anion Gap 4 mmol/L BUN 38 H (7-17) mg/dL Creatinine 0.93 (0.52-1.04) mg/dL Est GFR (CKD-EPI)AfAm 70 (>60 ml/min/1.73 sqM) Est GFR (CKD-EPI)NonAf 61 (>60 ml/min/1.73 sqM) Glucose 219 H (74-99) mg/dL POC Glucose (mg/dL) 223 H (75-99) mg/dL POC Glu Head Of Acquisitions ID Tk [place] Calcium 8.9 (8.4-10.2) mg/dL Total Bilirubin 0.3 (0.2-1.3) mg/dL AST 15 (14-36) U/L ALT 26 (9-52) U/L Alkaline Phosphatase 42 (38-126) U/L Total Protein 5.2 L (6.3-8.2) g/dL Albumin 3.1 L (3.5-5.0) g/dL Lipase 43 (23-300) U/L Urine Color Urine Appearance (Clear) Urine pH (5.0-8.0) Ur Specific [place] (1.001-1.035) Urine Protein (Negative) Urine Glucose (UA) (Negative) Urine Ketones (Negative) Urine Blood (Negative) Urine Nitrite (Negative) Urine Bilirubin (Negative) Urine Urobilinogen (<2.0) mg/dL Ur Leukocyte Esterase (Negative) 01/11/19 Range/Units 02:46 WBC (3.8-10.6) k/uL RBC (3.80-5.40) m/uL Hgb (11.4-16.0) gm/dL Hct (34.0-46.0) % MCV (80.0-100.0) fL MCH (25.0-35.0) pg MCHC (31.0-37.0) g/dL RDW (11.5-15.5) % Plt Count (150-450) k/uL Neutrophils % % Lymphocytes % % Monocytes % % Eosinophils % % Basophils % % Neutrophils # (1.3-7.7) k/uL Lymphocytes # (1.0-4.8) k/uL Monocytes # (0-1.0) k/uL Eosinophils # (0-0.7) k/uL Basophils # (0-0.2) k/uL Hypochromasia Macrocytosis Sodium (137-145) mmol/L Potassium (3.5-5.1) mmol/L Chloride (98-107) mmol/L Carbon Dioxide (22-30) mmol/L Anion Gap mmol/L BUN (7-17) mg/dL Creatinine (0.52-1.04) mg/dL Est GFR (CKD-EPI)AfAm (>60 ml/min/1.73 sqM) Est GFR (CKD-EPI)NonAf (>60 ml/min/1.73 sqM) Glucose (74-99) mg/dL POC Glucose (mg/dL) (75-99) mg/dL POC Glu Head Of Acquisitions ID Calcium (8.4-10.2) mg/dL Total Bilirubin (0.2-1.3) mg/dL AST (14-36) U/L ALT (9-52) U/L Alkaline Phosphatase (38-126) U/L Total Protein (6.3-8.2) g/dL Albumin (3.5-5.0) g/dL Lipase (23-300) U/L Urine Color Yellow Urine Appearance Clear (Clear) Urine pH 5.0 (5.0-8.0) Ur Specific [place] 1.048 H (1.001-1.035) Urine Protein Negative (Negative) Urine Glucose (UA) Negative (Negative) Urine Ketones Negative (Negative) Urine Blood Negative (Negative) Urine Nitrite Negative (Negative) Urine Bilirubin Negative (Negative) Urine Urobilinogen <2.0 (<2.0) mg/dL Ur Leukocyte Esterase Negative (Negative) Disposition Clinical Impression: Abdominal pain Disposition: HOME SELF-CARE Condition: Stable Instructions (If sedation given, give patient instructions): Abdominal Pain (ED) Is patient prescribed a controlled substance at d/c from ED?: No Referrals: Chris Yi MD [Primary Care Provider] - 1-2 days
[2019-01-11 00:06] LABS: Basophils # (A) 0.3 k/uL (0-0.2); Basophils % (A) 2 %; Eosinophils # (A) 0.3 k/uL (0-0.7); Eosinophils % (A) 2 %; HCT 35.9 % (34.0-46.0); HGB 11.5 gm/dL (11.4-16.0); Hypochromasia Slight; Lymphocytes # (A) 1.8 k/uL (1.0-4.8); Lymphocytes % (A) 12 %; MCH 33.9 pg (25.0-35.0); MCV 105.9 fL (80.0-100.0); Macrocytosis Moderate; Mean Platelet Volume 6.4; Monocytes # (A) 0.7 k/uL (0-1.0); Monocytes % (A) 5 %; Neutrophils # (A) 11.1 k/uL (1.3-7.7); Neutrophils % (A) 77 %; Platelet Count 251 k/uL (150-450); RBC 3.39 m/uL (3.80-5.40); RDW 13.3 % (11.5-15.5); WBC 14.3 k/uL (3.8-10.6)
[2019-01-11 00:16] LABS: Albumin 3.1 g/dL (3.5-5.0); Calcium 8.9 mg/dL (8.4-10.2); Potassium 4.7 mmol/L (3.5-5.1); Total Bilirubin 0.3 mg/dL (0.2-1.3); Total Protein 5.2 g/dL (6.3-8.2)
--- NOTE | 2019-01-11 01:01 | CT ---
EXAMINATION TYPE: CT abdomen pelvis w con DATE OF EXAM: 01/11/2019 COMPARISON: 12/14/2017 HISTORY: abd pain CT DLP: [id number] mGycm Automated exposure control for dose reduction was used. TECHNIQUE: Helical acquisition of images was performed from the lung bases through the pelvis. CONTRAST: Performed without Oral Contrast and with IV Contrast, patient injected with 100 mL of Isovue 300. FINDINGS: There is some patchy interstitial infiltrate and atelectasis in the lower lung harrell. There is coron raysa artery calcification. Heart appears normal. Liver spleen stomach appear normal. There are clips from cholecystectomy. There is pancreatic atrophy . There is no adrenal mass. Kidneys show satisfactory contrast opacification. There is no hydronephrosi s. Ureters are not dilated. There is no retroperitoneal adenopathy. Bladder distends smoothly. There is no inguinal hernia. There is hysterectomy. There is no mesenteric edema. There is no ascites or free air. There is no sign of a bowel obstructio n. There is no sign of thickened appendix. There are spondylotic changes in the lumbar spine. There is no compression fracture. Bony pelvis is i ntact. IMPRESSION: THERE IS MILD SUBSEGMENTAL ATELECTASIS AT THE LUNG BASES. NO RENAL STONE OR OBSTRUCTION. NO SIGN OF A PPENDICITIS. NO ADVERSE CHANGE COMPARED TO OLD EXAM.
[2019-01-11 02:54] LABS: Appearance,Urine Clear (Clear); Bilirubin,Urine Negative (Negative); Blood,Urine Negative (Negative); Color,Urine Yellow; Glucose,Urine (UA) Negative (Negative); Ketones,Urine Negative (Negative); Leukocyte Esterase,Urine Negative (Negative); Nitrite,Urine Negative (Negative); Protein,Urine Negative (Negative); Urobilinogen,Urine <2.0 mg/dL (<2.0)
[2019-01-11 02:58] LABS: Specific Gravity,Urine 1.048 (1.001-1.035)
[2019-01-11 03:30] VITALS: BP 143/70; PULSE 77; RESP 20; TEMP 97.7
== END 2019-01-11 03:43 | disposition home or self-care (01) ==
LOC: EC 23:33
DX: R10.9 Unspecified abdominal pain (principal); D72.829 Elevated white blood cell count, unspecified; F41.9 Anxiety disorder, unspecified; F32.9 Major depressive disorder, single episode, unspecified; K21.9 Gastro-esophageal reflux disease without esophagitis; E78.5 Hyperlipidemia, unspecified; G47.30 Sleep apnea, unspecified; E07.9 Disorder of thyroid, unspecified; G89.29 Other chronic pain; M54.5 Low back pain; K58.1 Irritable bowel syndrome with constipation; E11.9 Type 2 diabetes mellitus without complications; E66.01 Morbid (severe) obesity due to excess calories; I11.0 Hypertensive heart disease with heart failure; I50.9 Heart failure, unspecified; I25.119 Atherosclerotic heart disease of native coronary artery with unspecified angina pectoris; J45.909 Unspecified asthma, uncomplicated; Z79.02 Long term (current) use of antithrombotics/antiplatelets; Z79.4 Long term (current) use of insulin; Z79.82 Long term (current) use of aspirin; Z79.899 Other long term (current) drug therapy; Z79.51 Long term (current) use of inhaled steroids; Z79.890 Hormone replacement therapy; Z79.52 Long term (current) use of systemic steroids; Z91.048 Other nonmedicinal substance allergy status; Z91.040 Latex allergy status; Z88.5 Allergy status to narcotic agent; Z88.8 Allergy status to other drugs, medicaments and biological substances; Z86.73 Personal history of transient ischemic attack (TIA), and cerebral infarction without residual deficits; Z88.0 Allergy status to penicillin; Z87.19 Personal history of other diseases of the digestive system; Z90.49 Acquired absence of other specified parts of digestive tract; Z98.84 Bariatric surgery status; Z95.5 Presence of coronary angioplasty implant and graft; Z86.14 Personal history of Methicillin resistant Staphylococcus aureus infection; Z99.89 Dependence on other enabling machines and devices; Z68.44 Body mass index [BMI] 60.0-69.9, adult
CPT/HCPCS: 36415; 80053; 83690; 85025; 81003; 74177; 99284; 96360; 96361 ×2; Q9967

== ENCOUNTER 2019-03-14 10:41 | Inpatient (IN) | payer MEDICARE ==
[2019-03-14] MEDS ORDERED: ACETAMINOPHEN TAB 500 MG TAB PO STA (11:17)
[2019-03-14] MEDS ORDERED: IBUPROFEN 600 MG TAB PO STA (11:17)
[2019-03-14] MEDS ORDERED: IPRATROPIUM-ALBUTEROL 3 ML NEB INHALATION STA (11:18)
--- NOTE | 2019-03-14 11:21 | ED ---
General Adult HPI - General Stated complaint: Weakness Time Seen by Provider: 03/14/19 11:00 Source: patient, EMS, RN notes reviewed, old records reviewed - History of Present Illness Initial comments: This a 73-year-old female who presents emergency Department from a longterm. half-way sent her in because she was more lethargic than normal and not breathing as well as normal. Patient arrived to our emergency department and did have a fever. Patient did complain of a sore throat and some wheezing she stated. Patient was unable to give any further history she is a very poor historian. No one else is with the patient to supply any further history. Patient denies any chest pain. Patient denies abdominal pain. Patient denied being nauseated or having any diarrhea. According to staff she also looked more edematous to them. No further history can be obtained at this time since the patient is not answering a lot of questions and there is no one with her. - Related Data Home Medications Medication Instructions Recorded Confirmed Atorvastatin [Lipitor] 40 mg PO HS@209901/30/17 03/14/19 Aspirin EC [Ecotrin Low Dose] 81 mg PO DAILY@89912/14/17 03/14/19 Acetaminophen [Tylenol] 650 mg PO Q6H PRN 01/16/18 03/14/19 Albuterol Sulfate [Proair Hfa] 2 puff INHALATION RT-Q6H PRN 06/04/18 03/14/19 Montelukast Sodium [Singulair] 10 mg PO HS@209907/02/18 03/14/19 ARIPiprazole [Abilify] 5 mg PO HS@209909/04/18 03/14/19 Bismuth Subsalicylate 524 mg PO Q4H PRN 09/04/18 03/14/19 [Pepto-Bismol] Ferrous Sulfate [Iron (65 MG 325 mg PO DAILY@89909/04/18 03/14/19 Elemental)] INSULIN LISPRO (HumaLOG) [humaLOG] 10 unit SQ AC-TID 09/04/18 03/14/19 Insulin Lispro [humaLOG Kwikpen] See Protocol SQ ACHS 09/04/18 03/14/19 Isosorbide Mononitrate ER [Imdur] 30 mg PO DAILY@89909/04/18 03/14/19 Lubiprostone [Amitiza] 24 mcg PO BID@0900,2100 09/04/18 03/14/19 Pantoprazole [Protonix] 40 mg PO DAILY@0609/04/18 03/14/19 Gabapentin [Neurontin] 100 mg PO BID@0600,2200 12/25/18 03/14/19 Lisinopril [Zestril] 10 mg PO DAILY@0912/25/18 03/14/19 Metoprolol Tartrate [Lopressor] 25 mg PO TID@0600,1400,2200 12/25/18 03/14/19 clonazePAM [KlonoPIN] 1 mg PO TID@0600,1400,2200 12/25/18 03/14/19 predniSONE 10 mg PO Q48H 12/25/18 03/14/19 traMADol HCl [Ultram] 100 mg PO TID@0600,1400,2200 12/25/18 03/14/19 Citalopram Hydrobromide [CeleXA] 10 mg PO DAILY@89901/10/19 03/14/19 Citalopram Hydrobromide [CeleXA] 20 mg PO DAILY@89901/10/19 03/14/19 Ipratropium-Albuterol Nebulize 3 ml INHALATION RT-Q4H PRN 01/10/19 03/14/19 [Duoneb 0.5 mg-3 mg/3 ml Soln] Loperamide HCl [Imodium A-D] 4 mg PO QID PRN 01/10/19 03/14/19 Magnesium Hydroxide [Milk of 2,400 mg PO DAILY PRN 01/10/19 03/14/19 Magnesia] Cholecalciferol [Vitamin D3 (25 2,000 unit PO HS@2100 01/11/19 03/14/19 Mcg = 1000 Iu)] Clopidogrel [Plavix] 75 mg PO DAILY@0901/11/19 03/14/19 Furosemide [Lasix] 40 mg PO BID@0600,1400 01/11/19 03/14/19 Ipratropium-Albuterol Nebulize 3 ml INHALATION RT-Q8H 01/11/19 03/14/19 [Duoneb 0.5 mg-3 mg/3 ml Soln] Budesonide [Pulmicort] 1 mg INHALATION RT-BID@0900,2100 03/14/19 03/14/19 Calcium Carbonate [Tums] 1,000 mg PO Q6H PRN 03/14/19 03/14/19 Insulin Detemir [Levemir Flextouch] 50 units SQ HS@2100 03/14/19 03/14/19 Previous Rx's Medication Instructions Recorded Nitroglycerin Sl Tabs [Nitrostat] 0.4 mg SUBLINGUAL Q5M PRN #30 tab 12/23/16 Bisacodyl [Dulcolax] 10 mg RECTAL DAILY PRN supp 06/08/18 Allergies Allergy/AdvReac Type Severity Reaction Status Date / Time adhesive Allergy Mild Rash/Hives, Verified 03/14/19 10:47 W/ TAPES, CAN USE PAPER TAPE latex Allergy Mild Rash/Hives- Verified 03/14/19 10:47 Sores codeine Allergy Anaphylaxis Verified 03/14/19 10:47 Penicillins Allergy Anaphylaxis Verified 03/14/19 10:47 propoxyphene napsylate Allergy Anaphylaxis Verified 03/14/19 10:47 [From Darvocet-N 100] tuberculin, purified protein Allergy Rash/Hives Verified 03/14/19 10:47 deriva [tuberculin,purif.prot.deriv.] morphine AdvReac Hallucinations, Verified 03/14/19 10:47 anxious Review of Systems ROS Statement: Those systems with pertinent positive or pertinent negative responses have been documented in the HPI. ROS Other: All systems not noted in ROS Statement are negative. Past Medical History Past Medical History: Asthma, Coronary Artery Disease (CAD), Cancer, Chest Pain / Angina, Heart Failure, CVA/TIA, Diabetes Mellitus, GERD/Reflux, Hyperlipidemia, Hypertension, Memory Impairment, Pneumonia, Sleep Apnea/CPAP/BIPAP, Thyroid Disorder Additional Past Medical History / Comment(s): IDDM, unable to tolerate C-PAP, hx. 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 , states unable to stand-needs yadira lift to transfer., patient states she has constipation with "pain in bowel" and nausea., resides at [facility] on [facility]. History of Any Multi-Drug Resistant Organisms: ESBL, MRSA Date of last positivie culture/infection: 06/05/18 ESBL/ MRSA 04/02/11 MDRO Source:: ESBL URINE / MRSA LEG, CHEST, ANKLE Past Surgical History: Bladder Surgery, Cholecystectomy, Heart Catheterization, Heart Catheterization With Stent, Hysterectomy Additional Past Surgical History / Comment(s): Angioplasty with multiple stents- pt states last stent mar 2018., partial parathyroidectomy, cataracts , I and D of L chest wall abscess and L ankle wound, bladder surgery with implant of stimulator system 02/2010, EGD/colonoscoy, Pain procedures. Past Anesthesia/Blood Transfusion Reactions: No Reported Reaction, Motion Sickness Additional Past Anesthesia/Blood Transfusion Reaction / Comment(s): Pt states she has received blood in the past without reaction. Date of Last Stent Placement:: 06/29/16 Past Psychological History: Anxiety, Depression Smoking Status: Never smoker Past Alcohol Use History: None Reported Past Drug Use History: None Reported - Past Family History Brother(s) Family Medical History: Coronary Artery Disease (CAD) Father Family Medical History: Cancer, Coronary Artery Disease (CAD) Additional Family Medical History / Comment(s): Father had prostate cancer. Mother Family Medical History: Asthma, COPD General Exam - General Exam Comments Initial Comments: GENERAL: Patient is well-developed and well-nourished. Patient is nontoxic and well- hydrated and is in mild distress. ENT: Neck is soft and supple. No significant lymphadenopathy is noted. Oropharynx is clear. Moist mucous membranes. Neck has full range of motion without eliciting any pain. EYES: The sclera were anicteric and conjunctiva were pink and moist. Extraocular movements were intact and pupils were equal round and reactive to light. Eyelids were unremarkable. PULMONARY: Patient has expiratory wheezing diffusely CARDIOVASCULAR: There is a regular rate and rhythm without any murmurs gallops or rubs. ABDOMEN: Soft and nontender with normal bowel sounds. No palpable organomegaly was noted. There is no palpable pulsatile mass. SKIN: Patient has excoriation of both inner thighs. NEUROLOGIC: Patient is alert and oriented 2. Cranial nerves II through XII are grossly intact. Motor and sensory are also intact. Normal speech, volume and content. Symmetrical smile. MUSCULOSKELETAL: Normal extremities with adequate strength and full range of motion. 2+ edema bilateral LYMPHATICS: No significant lymphadenopathy is noted PSYCHIATRIC: Normal psychiatric evaluation. Course Vital Signs 03/14/19 03/14/19 03/14/19 11:56 12:13 12:39 Temperature 98.7 F Pulse Rate 68 64 Respiratory 12 12 20 Rate Blood Pressure 117/58 119/63 O2 Sat by Pulse 95 97 Oximetry 03/14/19 12:48 Temperature 100.1 F H Pulse Rate Respiratory Rate Blood Pressure O2 Sat by Pulse Oximetry Medical Decision Making - Medical Decision Making EKG shows normal sinus rhythm at 63 bpm WV interval 176 QRS is 78 QT interval 412 QTC is 421. Patient's EKG shows no ST segment elevation or depression. - Lab Data Result diagrams: 03/14/19 11:35 03/14/19 11:35 Lab Results 03/14/19 03/14/19 03/14/19 Range/Units 11:35 11:35 11:35 WBC 9.3 (3.8-10.6) k/uL RBC 3.59 L (3.80-5.40) m/uL Hgb 11.9 (11.4-16.0) gm/dL Hct 36.5 (34.0-46.0) % MCV 101.7 H D (80.0-100.0) fL MCH 33.2 (25.0-35.0) pg MCHC 32.6 (31.0-37.0) g/dL RDW 14.0 (11.5-15.5) % Plt Count 187 (150-450) k/uL Neutrophils % 73 % Lymphocytes % 13 % Monocytes % 7 % Eosinophils % 3 % Basophils % 3 % Neutrophils # 6.8 (1.3-7.7) k/uL Lymphocytes # 1.2 (1.0-4.8) k/uL Monocytes # 0.6 (0-1.0) k/uL Eosinophils # 0.3 (0-0.7) k/uL Basophils # 0.3 H (0-0.2) k/uL Macrocytosis Slight PT (9.0-12.0) sec INR (<1.2) APTT (22.0-30.0) sec Sodium 137 (137-145) mmol/L Potassium 4.9 (3.5-5.1) mmol/L Chloride 97 L (98-107) mmol/L Carbon Dioxide 35 H (22-30) mmol/L Anion Gap 5 mmol/L BUN 57 H (7-17) mg/dL Creatinine 1.33 H (0.52-1.04) mg/dL Est GFR (CKD-EPI)AfAm 45 (>60 ml/min/1.73 sqM) Est GFR (CKD-EPI)NonAf 39 (>60 ml/min/1.73 sqM) Glucose 112 H (74-99) mg/dL Plasma Lactic Acid Toy (0.7-2.0) mmol/L Calcium 8.8 (8.4-10.2) mg/dL Total Bilirubin 0.7 (0.2-1.3) mg/dL AST 21 (14-36) U/L ALT 13 (4-34) U/L Alkaline Phosphatase 52 (38-126) U/L NT-Pro-B Natriuret Pep pg/mL Total Protein 5.4 L (6.3-8.2) g/dL Albumin 3.2 L (3.5-5.0) g/dL Urine Color Urine Appearance (Clear) Urine pH (5.0-8.0) Ur Specific [place] (1.001-1.035) Urine Protein (Negative) Urine Glucose (UA) (Negative) Urine Ketones (Negative) Urine Blood (Negative) Urine Nitrite (Negative) Urine Bilirubin (Negative) Urine Urobilinogen (<2.0) mg/dL Ur Leukocyte Esterase (Negative) Urine WBC (0-5) /hpf Ur Squamous Epith Cells (0-4) /hpf Urine Bacteria (None) /hpf Urine Mucus (None) /hpf Influenza Type A RNA Not Detected (Not Detectd) Influenza Type B (PCR) Not Detected (Not Detectd) Group A Strep Rapid (Negative) 03/14/19 03/14/19 03/14/19 Range/Units 11:35 11:35 11:35 WBC (3.8-10.6) k/uL RBC (3.80-5.40) m/uL Hgb (11.4-16.0) gm/dL Hct (34.0-46.0) % MCV (80.0-100.0) fL MCH (25.0-35.0) pg MCHC (31.0-37.0) g/dL RDW (11.5-15.5) % Plt Count (150-450) k/uL Neutrophils % % Lymphocytes % % Monocytes % % Eosinophils % % Basophils % % Neutrophils # (1.3-7.7) k/uL Lymphocytes # (1.0-4.8) k/uL Monocytes # (0-1.0) k/uL Eosinophils # (0-0.7) k/uL Basophils # (0-0.2) k/uL Macrocytosis PT 10.1 (9.0-12.0) sec INR 0.9 (<1.2) APTT 19.3 L (22.0-30.0) sec Sodium (137-145) mmol/L Potassium (3.5-5.1) mmol/L Chloride (98-107) mmol/L Carbon Dioxide (22-30) mmol/L Anion Gap mmol/L BUN (7-17) mg/dL Creatinine (0.52-1.04) mg/dL Est GFR (CKD-EPI)AfAm (>60 ml/min/1.73 sqM) Est GFR (CKD-EPI)NonAf (>60 ml/min/1.73 sqM) Glucose (74-99) mg/dL Plasma Lactic Acid Toy 1.0 (0.7-2.0) mmol/L Calcium (8.4-10.2) mg/dL Total Bilirubin (0.2-1.3) mg/dL AST (14-36) U/L ALT (4-34) U/L Alkaline Phosphatase (38-126) U/L NT-Pro-B Natriuret Pep 2310 pg/mL Total Protein (6.3-8.2) g/dL Albumin (3.5-5.0) g/dL Urine Color Urine Appearance (Clear) Urine pH (5.0-8.0) Ur Specific [place] (1.001-1.035) Urine Protein (Negative) Urine Glucose (UA) (Negative) Urine Ketones (Negative) Urine Blood (Negative) Urine Nitrite (Negative) Urine Bilirubin (Negative) Urine Urobilinogen (<2.0) mg/dL Ur Leukocyte Esterase (Negative) Urine WBC (0-5) /hpf Ur Squamous Epith Cells (0-4) /hpf Urine Bacteria (None) /hpf Urine Mucus (None) /hpf Influenza Type A RNA (Not Detectd) Influenza Type B (PCR) (Not Detectd) Group A Strep Rapid (Negative) 03/14/19 03/14/19 Range/Units 11:35 11:48 WBC (3.8-10.6) k/uL RBC (3.80-5.40) m/uL Hgb (11.4-16.0) gm/dL Hct (34.0-46.0) % MCV (80.0-100.0) fL MCH (25.0-35.0) pg MCHC (31.0-37.0) g/dL RDW (11.5-15.5) % Plt Count (150-450) k/uL Neutrophils % % Lymphocytes % % Monocytes % % Eosinophils % % Basophils % % Neutrophils # (1.3-7.7) k/uL Lymphocytes # (1.0-4.8) k/uL Monocytes # (0-1.0) k/uL Eosinophils # (0-0.7) k/uL Basophils # (0-0.2) k/uL Macrocytosis PT (9.0-12.0) sec INR (<1.2) APTT (22.0-30.0) sec Sodium (137-145) mmol/L Potassium (3.5-5.1) mmol/L Chloride (98-107) mmol/L Carbon Dioxide (22-30) mmol/L Anion Gap mmol/L BUN (7-17) mg/dL Creatinine (0.52-1.04) mg/dL Est GFR (CKD-EPI)AfAm (>60 ml/min/1.73 sqM) Est GFR (CKD-EPI)NonAf (>60 ml/min/1.73 sqM) Glucose (74-99) mg/dL Plasma Lactic Acid Toy (0.7-2.0) mmol/L Calcium (8.4-10.2) mg/dL Total Bilirubin (0.2-1.3) mg/dL AST (14-36) U/L ALT (4-34) U/L Alkaline Phosphatase (38-126) U/L NT-Pro-B Natriuret Pep pg/mL Total Protein (6.3-8.2) g/dL Albumin (3.5-5.0) g/dL Urine Color Yellow Urine Appearance Clear (Clear) Urine pH 5.0 (5.0-8.0) Ur Specific [place] 1.009 (1.001-1.035) Urine Protein Negative (Negative) Urine Glucose (UA) Negative (Negative) Urine Ketones Negative (Negative) Urine Blood Negative (Negative) Urine Nitrite Positive H (Negative) Urine Bilirubin Negative (Negative) Urine Urobilinogen <2.0 (<2.0) mg/dL Ur Leukocyte Esterase Moderate H (Negative) Urine WBC 13 H (0-5) /hpf Ur Squamous Epith Cells <1 (0-4) /hpf Urine Bacteria Rare H (None) /hpf Urine Mucus Rare H (None) /hpf Influenza Type A RNA (Not Detectd) Influenza Type B (PCR) (Not Detectd) Group A Strep Rapid Negative (Negative) Disposition Clinical Impression: Altered mental status, UTI (urinary tract infection), Excoriation of multiple sites of left lower extremity Disposition: ADMITTED IP TO THIS HOSP Referrals: Chris Yi MD [Primary Care Provider] - 1-2 days Time of Disposition: 13:06
[2019-03-14 12:09] LABS: Basophils # (A) 0.3 k/uL (0-0.2); Basophils % (A) 3 %; Eosinophils # (A) 0.3 k/uL (0-0.7); Eosinophils % (A) 3 %; HCT 36.5 % (34.0-46.0); HGB 11.9 gm/dL (11.4-16.0); Lymphocytes # (A) 1.2 k/uL (1.0-4.8); Lymphocytes % (A) 13 %; MCH 33.2 pg (25.0-35.0); MCHC 32.6 g/dL (31.0-37.0); Macrocytosis Slight; Mean Platelet Volume 7.8; Monocytes # (A) 0.6 k/uL (0-1.0); Monocytes % (A) 7 %; Neutrophils # (A) 6.8 k/uL (1.3-7.7); Neutrophils % (A) 73 %; Platelet Count 187 k/uL (150-450); RBC 3.59 m/uL (3.80-5.40); WBC 9.3 k/uL (3.8-10.6)
[2019-03-14 12:10] LABS: Albumin 3.2 g/dL (3.5-5.0); Calcium 8.8 mg/dL (8.4-10.2); MCV 101.7 fL (80.0-100.0); Potassium 4.9 mmol/L (3.5-5.1); Total Bilirubin 0.7 mg/dL (0.2-1.3); Total Protein 5.4 g/dL (6.3-8.2)
[2019-03-14 12:15] LABS: INR 0.9 (<1.2); Prothrombin Time 10.1 sec (9.0-12.0)
[2019-03-14 12:19] LABS: Appearance,Urine Clear (Clear); Bacteria,Urine Rare /hpf; Bilirubin,Urine Negative (Negative); Blood,Urine Negative (Negative); Color,Urine Yellow; Glucose,Urine (UA) Negative (Negative); Ketones,Urine Negative (Negative); Leukocyte Esterase,Urine Moderate (Negative); Mucus,Urine Rare /hpf; Nitrite,Urine Positive (Negative); Protein,Urine Negative (Negative); Specific Gravity,Urine 1.009 (1.001-1.035); Squamous Epithelial Cell,Urine <1 /hpf (0-4); Urobilinogen,Urine <2.0 mg/dL (<2.0); WBC,Urine 13 /hpf (0-5)
--- NOTE | 2019-03-14 12:32 | XR ---
EXAMINATION TYPE: XR chest 2V DATE OF EXAM: 03/14/2019 COMPARISON: 09/04/2018 HISTORY: Fever TECHNIQUE: Frontal and lateral views of the chest are obtained. FINDINGS: Lateral view is suboptimal due to patient motion and underpenetration as well as patient yosef dy habitus. There is no focal air space opacity, pleural effusion, or pneumothorax seen. The cardiac silhouette size is enlarged with coronary artery stent seen. The osseous structures are intact. Coleman rgical clips overlie the lower neck. IMPRESSION: No acute cardiopulmonary process.
[2019-03-14 12:35] LABS: Partial Thromboplastin Time 19.3 sec (22.0-30.0)
[2019-03-14] MEDS ORDERED: FUROSEMIDE 10 MG/ML 4 ML VIAL IV STA (12:37)
[2019-03-14] MEDS ORDERED: ALBUTEROL INHALER 60 PUFF/8 GM INHALER INHALATION PRN (16:33)
[2019-03-14] MEDS ORDERED: NITROGLYCERIN SL TABS 0.4 MG TAB SUBLINGUAL PRN (16:33)
[2019-03-14] MEDS ORDERED: BISACODYL 10 MG SUPP RECTAL PRN (16:33)
[2019-03-14] MEDS ORDERED: MAGNESIUM HYDROXIDE 2,400 MG/10 ML CUP PO PRN (16:33)
[2019-03-14] MEDS ORDERED: CALCIUM CARBONATE 500 MG CHEWABLE PO PRN (16:33)
[2019-03-14] MEDS ORDERED: LOPERAMIDE 2 MG CAP PO PRN ×2 (16:33→17:12)
[2019-03-14] MEDS ORDERED: BISMUTH SUBSALICYLATE 4,192 MG/240 ML BOTTLE PO PRN (16:33)
[2019-03-14] MEDS: INSULIN ASPART (NovoLOG) 100 UNIT/ML VIAL SQ SCH (18:33)
[2019-03-14 20:42] LABS: Glucose,Whole Blood 99 mg/dL (75-99)
[2019-03-14] MEDS: METOPROLOL TARTRATE 25 MG TAB PO SCH (21:19)
[2019-03-14] MEDS: traMADol 50 MG TAB PO SCH (21:20)
[2019-03-14] MEDS: MONTELUKAST 10 MG TAB PO SCH (21:20)
[2019-03-14] MEDS: ATORVASTATIN 40 MG TAB PO SCH (21:20)
[2019-03-14] MEDS: CHOLECALCIFEROL 1,000 UNIT TAB PO SCH (21:20)
[2019-03-14] MEDS: NYSTATIN 100,000UNIT/GM CREAM 30 GM TUBE TOPICAL SCH (21:21)
[2019-03-14] MEDS: ARIPiprazole 5 MG TAB PO SCH (21:21)
[2019-03-14] MEDS: IPRATROPIUM-ALBUTEROL 3 ML NEB INHALATION PRN (21:49)
[2019-03-14] MEDS: BUDESONIDE 1 MG/2 ML NEBU INHALATION SCH (21:49)
[2019-03-14] MEDS: NON FORMULARY DRUG (Lubiprostone [Amitiza] 24 MCG) PO SCH (22:06)
--- NOTE | 2019-03-14 23:14 | P.CONS ---
History of Present Illness - Reason for Consult Consult date: 03/14/19 UTI Requesting physician: Chris Yi - Chief Complaint Weakness and fever x 1 day - History of Present Illness Patient is a 73-year-old female [place] resident patient has been sent to the ER at [facility] today with chief complaints of 4 patient with generalized weakness patient simply more lethargic than her usual self on arrival to the ER patient noticed to be febrile she did have a fever of 101.3 F patient did not have significant tachycardia and white Monospot elevated patient influenza serology was negative strep rapid test was negative as well patient did have a UA which shows moderate leukocyte esterase and 13 WBC cultures currently pending chest x-ray was negative for any acute process patient also noted to have significant swelling her lower extremity with the patient denies having any pain in her leg or any redness no open wound or any drainage with the symptom the patient has been admitted to hospital she was st [facility] on [facility], infectious disease was consulted for further recommendation of antibiotic in view of her history of antibiotic allergies. Review of Systems Positive point has been mentioned in HPI rest of the systems couldnot be completed as pt not a good historian and lethargic Past Medical History Past Medical History: Asthma, Coronary Artery Disease (CAD), Cancer, Chest Pain / Angina, Heart Failure, CVA/TIA, Diabetes Mellitus, GERD/Reflux, Hyperlipidemia, Hypertension, Memory Impairment, Pneumonia, Sleep Apnea/CPAP/BIPAP, Thyroid Disorder Additional Past Medical History / Comment(s): IDDM, unable to tolerate C-PAP, hx. 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 , states unable to stand-needs yadira lift to transfer., patient states she has constipation with "pain in bowel" and nausea., resides at [facility] on the [facility]. History of Any Multi-Drug Resistant Organisms: ESBL, MRSA Year Discovered:: 06/05/18 ESBL/ MRSA 04/02/11 MDRO Source:: ESBL URINE / MRSA LEG, CHEST, ANKLE Past Surgical History: Bladder Surgery, Cholecystectomy, Heart Catheterization, Heart Catheterization With Stent, Hysterectomy Additional Past Surgical History / Comment(s): Angioplasty with multiple stents- pt states last stent mar 2018., partial parathyroidectomy, cataracts , I and D of L chest wall abscess and L ankle wound, bladder surgery with implant of stimulator system 02/2010, EGD/colonoscoy, Pain procedures. Past Anesthesia/Blood Transfusion Reactions: No Reported Reaction, Motion Sickness Additional Past Anesthesia/Blood Transfusion Reaction / Comm: Pt states she has received blood in the past without reaction. Date of Last Stent Placement:: 06/29/16 Past Psychological History: Anxiety, Depression Smoking Status: Never smoker Past Alcohol Use History: None Reported Past Drug Use History: None Reported - Past Family History Brother(s) Family Medical History: Coronary Artery Disease (CAD) Father Family Medical History: Cancer, Coronary Artery Disease (CAD) Additional Family Medical History / Comment(s): Father had prostate cancer. Mother Family Medical History: Asthma, COPD Medications and Allergies Home Medications Medication Instructions Recorded Confirmed Type Nitroglycerin Sl Tabs [Nitrostat] 0.4 mg SUBLINGUAL Q5M PRN #30 tab 12/23/16 03/14/19 Rx Atorvastatin [Lipitor] 40 mg PO HS@209901/30/17 03/14/19 History Aspirin EC [Ecotrin Low Dose] 81 mg PO DAILY@0900 12/14/17 03/14/19 History Acetaminophen [Tylenol] 650 mg PO Q6H PRN 01/16/18 03/14/19 History Albuterol Sulfate [Proair Hfa] 2 puff INHALATION RT-Q6H PRN 06/04/18 03/14/19 History Bisacodyl [Dulcolax] 10 mg RECTAL DAILY PRN supp 06/08/18 03/14/19 Rx Montelukast Sodium [Singulair] 10 mg PO HS@209907/02/18 03/14/19 History ARIPiprazole [Abilify] 5 mg PO HS@209909/04/18 03/14/19 History Bismuth Subsalicylate 524 mg PO Q4H PRN 09/04/18 03/14/19 History [Pepto-Bismol] Ferrous Sulfate [Iron (65 MG 325 mg PO DAILY@0900 09/04/18 03/14/19 History Elemental)] INSULIN LISPRO (HumaLOG) [humaLOG] 10 unit SQ AC-TID 09/04/18 03/14/19 History Insulin Lispro [humaLOG Kwikpen] See Protocol SQ ACHS 09/04/18 03/14/19 History Isosorbide Mononitrate ER [Imdur] 30 mg PO DAILY@0900 09/04/18 03/14/19 History Lubiprostone [Amitiza] 24 mcg PO BID@0900,2100 09/04/18 03/14/19 History Pantoprazole [Protonix] 40 mg PO DAILY@0600 09/04/18 03/14/19 History Gabapentin [Neurontin] 100 mg PO BID@0600,2200 12/25/18 03/14/19 History Lisinopril [Zestril] 10 mg PO DAILY@0900 12/25/18 03/14/19 History Metoprolol Tartrate [Lopressor] 25 mg PO TID@0600,1400,2200 12/25/18 03/14/19 History clonazePAM [KlonoPIN] 1 mg PO TID@0600,1400,2200 12/25/18 03/14/19 History predniSONE 10 mg PO Q48H 12/25/18 03/14/19 History traMADol HCl [Ultram] 100 mg PO TID@0600,1400,2200 12/25/18 03/14/19 History Citalopram Hydrobromide [CeleXA] 10 mg PO DAILY@0901/10/19 03/14/19 History Citalopram Hydrobromide [CeleXA] 20 mg PO DAILY@0901/10/19 03/14/19 History Ipratropium-Albuterol Nebulize 3 ml INHALATION RT-Q4H PRN 01/10/19 03/14/19 Hist ory [Duoneb 0.5 mg-3 mg/3 ml Soln] Loperamide HCl [Imodium A-D] 4 mg PO QID PRN 01/10/19 03/14/19 History Magnesium Hydroxide [Milk of 2,400 mg PO DAILY PRN 01/10/19 03/14/19 History Magnesia] Cholecalciferol [Vitamin D3 (25 2,000 unit PO HS@2100 01/11/19 03/14/19 History Mcg = 1000 Iu)] Clopidogrel [Plavix] 75 mg PO DAILY@0900 01/11/19 03/14/19 History Furosemide [Lasix] 40 mg PO BID@0600,1400 01/11/19 03/14/19 History Ipratropium-Albuterol Nebulize 3 ml INHALATION RT-Q8H 01/11/19 03/14/19 History [Duoneb 0.5 mg-3 mg/3 ml Soln] Budesonide [Pulmicort] 1 mg INHALATION RT-BID@0900,2100 03/14/19 03/14/19 History Calcium Carbonate [Tums] 1,000 mg PO Q6H PRN 03/14/19 03/14/19 History Insulin Detemir [Levemir Flextouch] 50 units SQ HS@2100 03/14/19 03/14/19 History Allergies Allergy/AdvReac Type Severity Reaction Status Date / Time adhesive Allergy Mild Rash/Hives, Verified 03/14/19 10:47 W/ TAPES, CAN USE PAPER TAPE latex Allergy Mild Rash/Hives- Verified 03/14/19 10:47 Sores codeine Allergy Anaphylaxis Verified 03/14/19 10:47 Penicillins Allergy Anaphylaxis Verified 03/14/19 10:47 propoxyphene napsylate Allergy Anaphylaxis Verified 03/14/19 10:47 [From Darvocet-N 100] tuberculin, purified protein Allergy Rash/Hives Verified 03/14/19 10:47 deriva [tuberculin,purif.prot.deriv.] morphine AdvReac Hallucinations, Verified 03/14/19 10:47 anxious Physical Exam Vitals: Vital Signs Temp Pulse Resp BP Pulse Ox 03/14/19 16:00 99.2 F 63 16 120/55 95 03/14/19 14:37 100.5 F H 63 18 113/48 95 03/14/19 13:27 63 03/14/19 13:17 64 03/14/19 13:12 101.3 F H 03/14/19 12:48 100.1 F H 03/14/19 12:39 64 20 119/63 97 03/14/19 12:13 12 03/14/19 11:56 98.7 F 68 12 117/58 95 Intake and Output 03/14/19 03/14/19 03/14/19 06:59 14:59 22:59 Output Total 50 Balance -50 Output: Urine 50 Other: Weight 162.386 kg GENERAL DESCRIPTION: Elderly female lying in bed, no distress. No tachypnea or accessory muscle of respiration use. HEENT: Shows Pallor , no scleral icterus. Oral mucous membrane is dry. NECK: Trachea central, no thyromegaly. LUNGS: Unlabored breathing. Clear to auscultation anteriorly. No wheeze or crackle. HEART: S1, S2, regular rate and rhythm. ABDOMEN: Soft, no tenderness , guarding or rigidity EXTREMITIES: Diffuse swelling both lower extremities no redness or any drainage sKIN: No rash, no masses palpable. NEUROLOGICAL: The patient is lethargic though arousable no agitation was noticed Results CBC & Chem 7: 03/14/19 11:35 03/14/19 11:35 Labs: Abnormal Lab Results - Last 24 Hours (Table) 03/14/19 03/14/19 03/14/19 Range/Units 11:35 11:35 11:35 RBC 3.59 L (3.80-5.40) m/uL MCV 101.7 H D (80.0-100.0) fL Basophils # 0.3 H (0-0.2) k/uL APTT 19.3 L (22.0-30.0) sec Chloride 97 L (98-107) mmol/L Carbon Dioxide 35 H (22-30) mmol/L BUN 57 H (7-17) mg/dL Creatinine 1.33 H (0.52-1.04) mg/dL Glucose 112 H (74-99) mg/dL Total Protein 5.4 L (6.3-8.2) g/dL Albumin 3.2 L (3.5-5.0) g/dL Urine Nitrite (Negative) Ur Leukocyte Esterase (Negative) Urine WBC (0-5) /hpf Urine Bacteria (None) /hpf Urine Mucus (None) /hpf 03/14/19 Range/Units 11:48 RBC (3.80-5.40) m/uL MCV (80.0-100.0) fL Basophils # (0-0.2) k/uL APTT (22.0-30.0) sec Chloride (98-107) mmol/L Carbon Dioxide (22-30) mmol/L BUN (7-17) mg/dL Creatinine (0.52-1.04) mg/dL Glucose (74-99) mg/dL Total Protein (6.3-8.2) g/dL Albumin (3.5-5.0) g/dL Urine Nitrite Positive H (Negative) Ur Leukocyte Esterase Moderate H (Negative) Urine WBC 13 H (0-5) /hpf Urine Bacteria Rare H (None) /hpf Urine Mucus Rare H (None) /hpf Microbiology - Last 24 Hours (Table) 03/14/19 11:35 Group A Strep Throat Culture - Preliminary Throat 03/14/19 11:48 Urine Culture - Preliminary Urine,Voided Assessment and Plan Assessment: 1-patient presented to the hospital with lethargy and weakness in this patient who did have a fever and a positive UA likely secondary to urinary tract infection from enteric gram-negative pathogen currently no other obvious source of infection though she did have swelling lower extremity but no cellulitis and a chest x-ray was negative for any pneumonia abdominal soft on clinical examination 2-patient with a penicillin allergy that would limit the number of antibiotics safe to use however no history of anaphylaxis and tolerated Rocephin without any problem (1) UTI (urinary tract infection) Current Visit: Yes Status: Acute Code(s): N39.0 - URINARY TRACT INFECTION, SITE NOT SPECIFIED SNOMED Code(s): 81358212 Plan: 1-Rocephin 1 g IV every 8 daily 2-gentle IV fluid We will follow on clinical condition and cultures to further adjust medication if needed Thank you for this consultation , will follow this pt along with you Time with Patient: Greater than 30
[2019-03-15] MEDS ORDERED: FUROSEMIDE 10 MG/ML 4 ML VIAL IV SCH
[2019-03-15 00:06] LABS: Glucose,Whole Blood 111 mg/dL (75-99)
--- NOTE | 2019-03-15 01:16 | CT ---
EXAMINATION TYPE: CT chest wo con DATE OF EXAM: 03/15/2019 COMPARISON: 07/30/2014 HISTORY: Pneumonia CT DLP: 981.10 mGycm Automated exposure control for dose reduction was used. Multiple axial sections were obtained from the thoracic inlet to the diaphragm without contrast. Thoracic aorta is atheromatous. There is dense coronary artery calcification. Heart is enlarged. Ther e is mild pleural thickening at the posterior lung bases. There is mild atelectasis and scarring at t he lung bases. There is no evidence of a pulmonary mass. There is no mediastinal adenopathy. There ar e no hilar masses. Upper abdominal soft tissues are intact. The bony thorax is intact. There is no co mpression fracture. Sternum is intact. IMPRESSION: There is pleural thickening and scarring and atelectasis at the lung bases increased slightly compare d to old exam. No suspicious pulmonary mass. Atherosclerotic vascular disease. Mild cardiomegaly.
--- NOTE | 2019-03-15 01:23 | HP ---
HISTORY AND PHYSICAL A 73-year-old female came in from a retirement due to lethargy, skin excoriations and large amount of edema and swelling in her trunk and extremities. She says she is short of breath. She is more edematous in her abdomen and legs. She has a history of coronary artery disease with statins. HOME MEDICINES: Lipitor 40 daily, Ecotrin 81 daily, ProAir HFA 2 puffs q.6h p.r.n., Singulair 10 daily, Abilify 5 mg daily, Pepto-Bismol daily, Plavix 75 daily, Lasix 40 b.i.d., Metoprolol 25 t.i.d., Zestril 10 daily, Neurontin 100 b.i.d., Protonix 40 daily. Imdur 30 daily, Amitiza 25 mcg b.i.d. DuoNeb q.i.d., budesonide 0.5 b.i.d. ALLERGIES: ADHESIVE, LATEX, CODEINE, PENICILLIN, DARVOCET, TB, MORPHINE. REVIEW OF SYSTEMS: Fourteen-point review of systems negative except for mentioned in HPI. PAST MEDICAL HISTORY: Asthma, coronary artery disease, angina, heart failure, CVA, TIA, diabetes mellitus, GERD, dyslipidemia, hypertension, memory impairment, sleep apnea, hypothyroidism, ESBL in the urine, MRSA leg. She has history of cardiac catheterization with stent, hysterectomy, cholecystectomy, bladder surgery, heart catheterization, parathyroidectomy, cataracts. FAMILY HISTORY: Brother with coronary artery disease. Mother with asthma and COPD. PHYSICAL EXAMINATION: Vital signs, well-developed, well-nourished, nontoxic. She is more sleepy, lethargic than normal. She has mild distress breathing. Pupils equal, round, reactive to light and accommodation. Hematology 2 to 3+ pedal edema. NEUROLOGIC: Cranial nerves are intact. PSYCH fair mood and affect. OPHTHALMOLOGICAL: Pupils equal, round, reactive. LABS: Reviewed. BUN is 57, creatinine 1.32. White count 9.3, hemoglobin is 11.9, albumin 2.2. ASSESSMENT: 1. Altered mental status. 2. Urinary tract infection. 3. Excoriations, lower extremities. Continue current treatment including IV antibiotics. Fever, rule out myocardial infarction and CHF, tracheobronchitis, IV antibiotics and updrafts. MMODL / IJN: [id number] /
[2019-03-15] MEDS: clonazePAM 1 MG TAB PO SCH ×4 (01:26→22:31)
[2019-03-15] MEDS: INSULIN DETEMIR (LEVEMIR) 100 UNIT/ML SYR SQ SCH ×2 (01:26→20:36)
[2019-03-15] MEDS: GABAPENTIN 100 MG CAP PO SCH ×3 (01:26→20:30)
[2019-03-15] MEDS: AZITHROMYCIN 500 MG in SODIUM CHLORIDE 0.9% 250 ML IVPB SCH ×2 (01:30→20:28)
[2019-03-15] MEDS: METOPROLOL TARTRATE 25 MG TAB PO SCH ×2 (05:54→13:18)
[2019-03-15] MEDS: PANTOPRAZOLE 40 MG TABLET PO SCH (05:55)
[2019-03-15] MEDS: traMADol 50 MG TAB PO SCH ×3 (05:55→20:34)
[2019-03-15] MEDS ORDERED: FUROSEMIDE 40 MG TAB PO SCH (06:00)
[2019-03-15 07:08] LABS: Glucose,Whole Blood 173 mg/dL (75-99)
[2019-03-15] MEDS ORDERED: predniSONE 10 MG TAB PO SCH (09:00)
[2019-03-15] MEDS: BUDESONIDE 1 MG/2 ML NEBU INHALATION SCH ×2 (09:04→20:15)
[2019-03-15] MEDS: IPRATROPIUM-ALBUTEROL 3 ML NEB INHALATION PRN ×2 (09:04→15:23)
[2019-03-15] MEDS: NON FORMULARY DRUG (Lubiprostone [Amitiza] 24 MCG) PO SCH ×2 (09:20→20:26)
[2019-03-15] MEDS: CITALOPRAM HYDROBROMIDE 10 MG TAB PO SCH (09:41)
[2019-03-15] MEDS: ASPIRIN 81 MG PO SCH (09:41)
[2019-03-15] MEDS: CITALOPRAM HYDROBROMIDE 20 MG TAB PO SCH (09:41)
[2019-03-15] MEDS: CLOPIDOGREL 75 MG TAB PO SCH (09:41)
[2019-03-15] MEDS: INSULIN ASPART (NovoLOG) 100 UNIT/ML VIAL SQ SCH ×3 (09:41→17:43)
[2019-03-15] MEDS: ISOSORBIDE MONONITRATE ER 30 MG TAB.ER.24H PO SCH (09:41)
[2019-03-15] MEDS: LISINOPRIL 10 MG TAB PO SCH (09:41)
[2019-03-15] MEDS: FERROUS SULFATE 325 MG TAB PO SCH (09:41)
[2019-03-15] MEDS: NYSTATIN 100,000UNIT/GM CREAM 30 GM TUBE TOPICAL SCH ×2 (09:41→20:28)
[2019-03-15] MEDS: FUROSEMIDE 10 MG/ML 4 ML VIAL IV SCH (11:28)
[2019-03-15] MEDS: SODIUM CHLORIDE 0.9% 1,000 ML IV SCH (11:31)
--- NOTE | 2019-03-15 11:33 | P.CRDCN ---
History of Present Illness History of present illness: HISTORY OF PRESENTING ILLNESS This is a pleasant 73-year-old female past medical history significant for coronary artery disease status post multiple stent placements to the LAD and circumflex, hypertension, dyslipidemia, diabetes mellitus, sleep apnea, asthma and morbid obesity. She follows in the office with Dr. Mancera. We have been asked to see in consultation for lower extremity edema. She lives at an extended care facility and presented with symptoms of altered mental status, fever and sore throat. She was found to have a urinary tract infection and has been started on IV antibiotics per infectious disease. She denies chest pain, shortness of breath, dizziness or palpitations. She continues to complain of her throat hurting. Lower extremity edema is significant with redness and some weeping noted to the right leg. She states she does have chronic lower extremity sw elling but this is worse than her baseline. DIAGNOSTICS EKG reveals sinus mechanism with no acute ST or T-wave changes. Chest xray negative for an acute cardiopulmonary process. No fluid overload or heart failure. CT chest shows pleural thickening and scarring. No mass or fluid noted. Laboratory reviewed, WBC 9.3, hgb 11.9, plt 187, sodium 137, potassium 4.9, creatinine 1.33, ablumin 3.2 and proBNP 2310. Current cardiac medications include aspirin 81 mg daily, atorvastatin 40 mg daily, Plavix 75 mg daily, Lasix 40 mg twice a day, Imdur 30 mg daily, lisinopril 10 mg daily and metoprolol 25 mg 3 times a day. Most recent catheterization in September 2018 revealed a patent stent to the LAD and 100% ostial circumflex. Maximum medical therapy recommended. REVIEW OF SYSTEMS At the time of my exam: CONSTITUTIONAL: Denies fever or chills. Complains of throat pain. CARDIOVASCULAR: Denies chest pain, shortness of breath, orthopnea, PND or palpitations. RESPIRATORY: Denies cough. GASTROINTESTINAL: Denies abdominal pain, diarrhea, constipation, nausea or vomiting. MUSCULOSKELETAL: Denies myalgias. NEUROLOGIC: Denies numbness, tingling or weakness. ENDOCRINE: Denies fatigue, weight change, polydipsia or polyurina. GENITOURINARY: Denies burning, hematuria or urgency with micturation. HEMATOLOGIC: Denies history of anemia or bleeding. PHYSICAL EXAMINATION Blood pressure 104/60 heart rate 91 afebrile and maintaining oxygen saturation on nasal cannula. CONSTITUTIONAL: No apparent distress. Morbidly obese. HEENT: Head is normocephalic. Pupils are equal, round. Sclerae anicteric. Mucous membranes of the mouth are moist. No JVD. No carotid bruit. CHEST EXAMINATION: Lungs are clear to auscultation. No chest wall tenderness is noted on palpation or with deep breathing. Diminished bilaterally. HEART EXAMINATION: Regular rate and rhythm. S1, S2 heard. No murmurs, gallops or rub. ABDOMEN: Soft, nontender. Positive bowel sounds. EXTREMITIES: 2+ peripheral pulses, 2+ pitting bilateral lower extremity edema up to the knee, erythema and weeping noted to the right lower extremity and no calf tenderness. NEUROLOGIC EXAMINATION: Patient is awake, alert and oriented. ASSESSMENT Lower extremity edema, no evidence to suggest heart failure on diagnostic imaging and no symptoms of heart failure. Could be secondary to venous stasis. Urinary tract infection Febrile illness Acute kidney injury, could be on the basis of dehydration History of coronary artery disease s/p PCI to circumflex artery and LAD Hypertension Dyslipidemia Diabetes mellitus Sleep apnea Morbid obesity PLAN Recommend lasix 40 mg IV for relief of lower extremity edema. Clinically no heart failure. Apply LINDSAY wraps bilateral lower extremities. Ongoing medical management and evaluation of urinary tract infection. Continue lopressor, aspirin, plavix, atorvastatin, imdur and lisinopril as previously ordered. Follow up on discharge with Dr. Mancera. Thank you kindly for this consultation. Nurse Practitioner note has been reviewed, I agree with a documented findings and plan of care. Patient was seen and examined. Past Medical History Past Medical History: Asthma, Coronary Artery Disease (CAD), Cancer, Chest Pain / Angina, Heart Failure, CVA/TIA, Diabetes Mellitus, GERD/Reflux, Hyperlipidemia, Hypertension, Memory Impairment, Pneumonia, Sleep Apnea/CPAP/BIPAP, Thyroid Disorder Additional Past Medical History / Comment(s): IDDM, unable to tolerate C-PAP, hx. 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 , states unable to stand-needs yadira lift to transfer., patient states she has constipation with "pain in bowel" and nausea., resides at [facility]. History of Any Multi-Drug Resistant Organisms: ESBL, MRSA Date of last positivie culture/infection: 06/05/18 ESBL/ MRSA 04/02/11 MDRO Source:: ESBL URINE / MRSA LEG, CHEST, ANKLE Past Surgical History: Bladder Surgery, Cholecystectomy, Heart Catheterization, Heart Catheterization With Stent, Hysterectomy Additional Past Surgical History / Comment(s): Angioplasty with multiple stents- pt states last stent mar 2018., partial parathyroidectomy, cataracts , I and D of L chest wall abscess and L ankle wound, bladder surgery with implant of stimulator system 02/2010, EGD/colonoscoy, Pain procedures. Past Anesthesia/Blood Transfusion Reactions: No Reported Reaction, Motion Sickness Additional Past Anesthesia/Blood Transfusion Reaction / Comment(s): Pt states she has received blood in the past without reaction. Date of Last Stent Placement:: 06/29/16 Past Psychological History: Anxiety, Depression Smoking Status: Never smoker Past Alcohol Use History: None Reported Past Drug Use History: None Reported - Past Family History Brother(s) Family Medical History: Coronary Artery Disease (CAD) Father Family Medical History: Cancer, Coronary Artery Disease (CAD) Additional Family Medical History / Comment(s): Father had prostate cancer. Mother Family Medical History: Asthma, COPD Medications and Allergies Home Medications Medication Instructions Recorded Confirmed Type Nitroglycerin Sl Tabs [Nitrostat] 0.4 mg SUBLINGUAL Q5M PRN #30 tab 12/23/16 03/14/19 Rx Atorvastatin [Lipitor] 40 mg PO HS@2100 01/30/17 03/14/19 History Aspirin EC [Ecotrin Low Dose] 81 mg PO DAILY@0900 12/14/17 03/14/19 History Acetaminophen [Tylenol] 650 mg PO Q6H PRN 01/16/18 03/14/19 History Albuterol Sulfate [Proair Hfa] 2 puff INHALATION RT-Q6H PRN 06/04/18 03/14/19 History Bisacodyl [Dulcolax] 10 mg RECTAL DAILY PRN supp 06/08/18 03/14/19 Rx Montelukast Sodium [Singulair] 10 mg PO HS@2100 07/02/18 03/14/19 History ARIPiprazole [Abilify] 5 mg PO HS@2100 09/04/18 03/14/19 History Bismuth Subsalicylate 524 mg PO Q4H PRN 09/04/18 03/14/19 History [Pepto-Bismol] Ferrous Sulfate [Iron (65 MG 325 mg PO DAILY@89909/04/18 03/14/19 History Elemental)] INSULIN LISPRO (HumaLOG) [humaLOG] 10 unit SQ AC-TID 09/04/18 03/14/19 History Insulin Lispro [humaLOG Kwikpen] See Protocol SQ ACHS 09/04/18 03/14/19 History Isosorbide Mononitrate ER [Imdur] 30 mg PO DAILY@89909/04/18 03/14/19 History Lubiprostone [Amitiza] 24 mcg PO BID@0900,2100 09/04/18 03/14/19 History Pantoprazole [Protonix] 40 mg PO DAILY@59909/04/18 03/14/19 History Gabapentin [Neurontin] 100 mg PO BID@0600,2200 12/25/18 03/14/19 History Lisinopril [Zestril] 10 mg PO DAILY@89912/25/18 03/14/19 History Metoprolol Tartrate [Lopressor] 25 mg PO TID@0600,1400,2200 12/25/18 03/14/19 History clonazePAM [KlonoPIN] 1 mg PO TID@0600,1400,2200 12/25/18 03/14/19 History predniSONE 10 mg PO Q48H 12/25/18 03/14/19 History traMADol HCl [Ultram] 100 mg PO TID@0600,1400,2200 12/25/18 03/14/19 History Citalopram Hydrobromide [CeleXA] 10 mg PO DAILY@89901/10/19 03/14/19 History Citalopram Hydrobromide [CeleXA] 20 mg PO DAILY@89901/10/19 03/14/19 History Ipratropium-Albuterol Nebulize 3 ml INHALATION RT-Q4H PRN 01/10/19 03/14/19 History [Duoneb 0.5 mg-3 mg/3 ml Soln] Loperamide HCl [Imodium A-D] 4 mg PO QID PRN 01/10/19 03/14/19 History Magnesium Hydroxide [Milk of 2,400 mg PO DAILY PRN 01/10/19 03/14/19 History Magnesia] Cholecalciferol [Vitamin D3 (25 2,000 unit PO HS@2100 01/11/19 03/14/19 History Mcg = 1000 Iu)] Clopidogrel [Plavix] 75 mg PO DAILY@0900 01/11/19 03/14/19 History Furosemide [Lasix] 40 mg PO BID@0600,1400 01/11/19 03/14/19 History Ipratropium-Albuterol Nebulize 3 ml INHALATION RT-Q8H 01/11/19 03/14/19 History [Duoneb 0.5 mg-3 mg/3 ml Soln] Budesonide [Pulmicort] 1 mg INHALATION RT-BID@0900,2100 03/14/19 03/14/19 History Calcium Carbonate [Tums] 1,000 mg PO Q6H PRN 03/14/19 03/14/19 History Insulin Detemir [Levemir Flextouch] 50 units SQ HS@209903/14/19 03/14/19 History Allergies Allergy/AdvReac Type Severity Reaction Status Date / Time adhesive Allergy Mild Rash/Hives, Verified 03/14/19 10:47 W/ TAPES, CAN USE PAPER TAPE latex Allergy Mild Rash/Hives- Verified 03/14/19 10:47 Sores codeine Allergy Anaphylaxis Verified 03/14/19 10:47 Penicillins Allergy Anaphylaxis Verified 03/14/19 10:47 propoxyphene napsylate Allergy Anaphylaxis Verified 03/14/19 10:47 [From Darvocet-N 100] tuberculin, purified protein Allergy Rash/Hives Verified 03/14/19 10:47 deriva [tuberculin,purif.prot.deriv.] morphine AdvReac Hallucinations, Verified 03/14/19 10:47 anxious Physical Exam Vitals: Vital Signs Temp Pulse Pulse Pulse Resp BP BP 03/15/19 09:24 91 104/60 03/15/19 09:20 68 03/15/19 09:05 66 03/15/19 04:51 99.4 F 69 22 88/41 03/14/19 22:01 64 03/14/19 21:49 62 03/14/19 20:30 97.7 F 61 20 107/64 03/14/19 17:47 65 18 109/56 03/14/19 16:00 99.2 F 63 16 120/55 03/14/19 14:37 100.5 F H 63 18 113/48 03/14/19 13:27 63 03/14/19 13:17 64 03/14/19 13:12 101.3 F H 03/14/19 12:48 100.1 F H 03/14/19 12:39 64 20 119/63 03/14/19 12:13 12 03/14/19 11:56 98.7 F 68 12 117/58 Pulse Ox 03/15/19 09:24 03/15/19 09:20 03/15/19 09:05 03/15/19 04:51 99 03/14/19 22:01 03/14/19 21:49 03/14/19 20:30 99 03/14/19 17:47 96 03/14/19 16:00 95 03/14/19 14:37 95 03/14/19 13:27 03/14/19 13:17 03/14/19 13:12 03/14/19 12:48 03/14/19 12:39 97 03/14/19 12:13 03/14/19 11:56 95 Intake and Output 03/14/19 03/15/19 03/15/19 22:59 06:59 14:59 Output Total 50 600 Balance -50 -600 Output: Urine 50 600 Other: Voiding Method Incontinent Incontinent Weight 162.386 kg 158 kg Results 03/14/19 11:35 03/14/19 11:35 Cardiac Enzymes 03/14/19 Range/Units 11:35 AST 21 (14-36) U/L Coagulation 03/14/19 Range/Units 11:35 PT 10.1 (9.0-12.0) sec APTT 19.3 L (22.0-30.0) sec CBC 03/14/19 Range/Units 11:35 WBC 9.3 (3.8-10.6) k/uL RBC 3.59 L (3.80-5.40) m/uL Hgb 11.9 (11.4-16.0) gm/dL Hct 36.5 (34.0-46.0) % Plt Count 187 (150-450) k/uL Comprehensive Metabolic Panel 03/14/19 Range/Units 11:35 Sodium 137 (137-145) mmol/L Potassium 4.9 (3.5-5.1) mmol/L Chloride 97 L (98-107) mmol/L Carbon Dioxide 35 H (22-30) mmol/L BUN 57 H (7-17) mg/dL Creatinine 1.33 H (0.52-1.04) mg/dL Glucose 112 H (74-99) mg/dL Calcium 8.8 (8.4-10.2) mg/dL AST 21 (14-36) U/L ALT 13 (4-34) U/L Alkaline Phosphatase 52 (38-126) U/L Total Protein 5.4 L (6.3-8.2) g/dL Albumin 3.2 L (3.5-5.0) g/dL Current Medications Generic Name Dose Route Start Last Admin Trade Name Freq PRN Reason Stop Dose Admin Albuterol/Ipratropium 3 ml 03/14/19 16:33 03/15/19 09:04 Duoneb 0.5 Mg-3 Mg/3 Ml Soln INHALATION 3 ml RT-Q4H PRN Administration Shortness Of Breath Aripiprazole 5 mg 03/14/19 21:00 03/14/19 21:21 Abilify PO 5 mg HS@2100 JAVIER Administration Aspirin 81 mg 03/15/19 09:00 03/15/19 09:41 Aspirin PO 81 mg DAILY@0900 JAVIER Administration Atorvastatin Calcium 40 mg 03/14/19 21:00 03/14/19 21:20 Lipitor PO 40 mg HS@2100 JAVIER Administration Bisacodyl 10 mg 03/14/19 16:33 Dulcolax RECTAL DAILY PRN Constipation Bismuth Subsalicylate 524 mg 03/14/19 16:33 Bismatrol PO Q4H PRN UPSET STOMACH Budesonide 1 mg 03/14/19 21:00 03/15/19 09:04 Pulmicort INHALATION 1 mg RT-BID@0900,2100 JAVIER Administration Calcium Carbonate/Glycine 1,000 mg 03/14/19 16:33 Tums PO Q6H PRN GI Upset Cholecalciferol 2,000 unit 03/14/19 21:00 03/14/19 21:20 Vitamin D3 (25 Mcg = 1000 Iu) PO 2,000 unit HS@2100 JAVIER Administration Citalopram Hydrobromide 10 mg 03/15/19 09:00 03/15/19 09:41 Celexa PO 10 mg DAILY@0900 JAVIER Administration Citalopram Hydrobromide 20 mg 03/15/19 09:00 03/15/19 09:41 Celexa PO 20 mg DAILY@0900 JAVIER Administration Clonazepam 1 mg 03/14/19 22:00 03/15/19 09:41 Klonopin PO 1 mg TID@0600,1400,2200 JAVIER Administration Clopidogrel Bisulfate 75 mg 03/15/19 09:00 03/15/19 09:41 Plavix PO 75 mg DAILY@0900 JAVIER Administration Ferrous Sulfate 325 mg 03/15/19 09:00 03/15/19 09:41 Feosol PO 325 mg DAILY@0900 JAVIER Administration Furosemide 40 mg 03/15/19 06:00 03/15/19 05:55 Lasix PO 40 mg BID@0600,1400 [facility] Administration Gabapentin 100 mg 03/14/19 22:00 03/15/19 09:41 Neurontin PO 100 mg BID@0600,0 [facility] Administration Ceftriaxone Sodium 1 gm/ 50 mls @ 100 mls/hr 03/15/19 09:00 03/15/19 09:42 Sodium Chloride IVPB 100 mls/hr Q24HR JAVIER Administration Azithromycin 500 mg/ Sodium 250 mls @ 250 mls/hr 03/14/19 23:45 03/15/19 01:30 Chloride IVPB 250 mls/hr DAILY@2100 [facility] Administration Insulin Aspart 10 unit 03/14/19 17:30 03/15/19 09:41 Novolog SQ 10 unit AC-TID JAVIER Administration Insulin Detemir 50 unit 03/14/19 21:00 03/15/19 01:26 Levemir SQ Not Given HS@2100 [facility] Isosorbide Mononitrate 30 mg 03/15/19 09:00 03/15/19 09:41 Imdur PO 30 mg DAILY@0900 JAVIER Administration Lisinopril 10 mg 03/15/19 09:00 03/15/19 09:41 Zestril PO 10 mg DAILY@0900 [facility] Administration Loperamide HCl 2 mg 03/14/19 17:12 Imodium PO QID PRN Diarrhea Magnesium Hydroxide 2,400 mg 03/14/19 16:33 Milk Of Magnesia PO DAILY PRN Constipation Metoprolol Tartrate 25 mg 03/14/19 22:00 03/15/19 05:54 Lopressor PO 25 mg TID@0600,1400,2200 [facility] Administration Montelukast Sodium 10 mg 03/14/19 21:00 03/14/19 21:20 Singulair PO 10 mg HS@2100 [facility] Administration Nitroglycerin 0.4 mg 03/14/19 16:33 Nitrostat SUBLINGUAL Q5M PRN Chest Pain Non-Formulary Medication 24 mcg 03/14/19 21:00 03/15/19 09:20 Lubiprostone [Amitiza] PO Not Given BID@0900,2100 [facility] Nystatin 1 applic 03/14/19 21:00 03/15/19 09:41 Mycostatin Cream TOPICAL 1 applic BID [facility] Administration Pantoprazole Sodium 40 mg 03/15/19 06:00 03/15/19 05:55 Protonix PO 40 mg DAILY@0600 [facility] Administration Prednisone 10 mg 03/15/19 09:00 03/15/19 10:06 PO 10 mg Q48H [facility] Administration Tramadol HCl 100 mg 03/14/19 22:00 03/15/19 05:55 Ultram PO 100 mg TID@0600,1400,2200 [facility] Administration Intake and Output 03/14/19 03/15/19 03/15/19 22:59 06:59 14:59 Output Total 50 600 Balance -50 -600 Output: Urine 50 600 Other: Voiding Method Incontinent Incontinent Weight 162.386 kg 158 kg 03/14/19 11:35 03/14/19 11:35
--- NOTE | 2019-03-15 12:01 | ECHOF ---
Referral Reason:lower extremity edema MEASUREMENTS -------- HEIGHT: 154.9 cm WEIGHT: 157.8 kg BP: RVIDd: 2.6 cm (< 3.3) IVSd: 1.5 cm (0.6 - 1.1) LVIDd: 3.2 cm (3.9 - 5.3) LVPWd: 1.4 cm (0.6 - 1.1) IVSs: 1.7 cm LVIDs: 1.6 cm LVPWs: 1.4 cm LAESV Index (A-L): 32.20 ml/m Ao Diam: 3.2 cm (2.0 - 3.7) AV Cusp: 1.7 cm (1.5 - 2.6) LA Diam: 4.5 cm (2.7 - 3.8) MV EXCURSION: 9.479 mm (> 18.000) MV EF SLOPE: 33 mm/s (70 - 150) EPSS: 0.7 cm MV E Claudio: 1.08 m/s MV DecT: 376 ms MV A Claudio: 1.19 m/s MV E/A Ratio: 0.91 AV maxP.35 mmHg AV meanP.50 mmHg RAP: 5.00 mmHg RVSP: 34.97 mmHg FINDINGS -------- Sinus rhythm. This was a technically difficult study with suboptimal views. The left ventricular size is normal. There is moderate concentric left ventricular hypertrophy. O verall left ventricular systolic function is normal with, an EF between 55 - 60 %. Normal LAP Grade 1 Diastolic Dysfunction. The right ventricle is normal in size. The left atrium is mildly dilated. Normal LA size by volume 22+/-6 ml/m2. The right atrial size is normal. Lumason used Aortic valve is trileaflet and is mildly thickened. There is mild aortic stenosis present. Peak/m claudette gradient across the Aortic Valve is 23.35mmHg / 11.50mmHg. The mitral valve is normal. The mitral valve leaflets are mildly thickened. Mild mitral regurgita tion is present. The tricuspid valve appears structurally normal. Mild tricuspid regurgitation present. There is m ild pulmonary hypertension. The right ventricular systolic pressure, as measured by Doppler, is 34. 97mmHg. There is no pulmonic regurgitation present. The aortic root size is normal. IVC Not well visulized. There is no pericardial effusion. CONCLUSIONS -------- 1. Sinus rhythm. 2. This was a technically difficult study with suboptimal views. 3. The left ventricular size is normal. 4. There is moderate concentric left ventricular hypertrophy. 5. Overall left ventricular systolic function is normal with, an EF between 55 - 60 %. 6. Normal LAP Grade 1 Diastolic Dysfunction. 7. The right ventricle is normal in size. 8. The left atrium is mildly dilated. 9. Normal LA size by volume 22+/-6 ml/m2. 10. The right atrial size is normal. 11. Lumason used 12. Aortic valve is trileaflet and is mildly thickened. 13. There is mild aortic stenosis present. 14. Peak/mean gradient across the Aortic Valve is 23.35mmHg / 11.50mmHg. 15. The mitral valve is normal. 16. The mitral valve leaflets are mildly thickened. 17. Mild mitral regurgitation is present. 18. The tricuspid valve appears structurally normal. 19. Mild tricuspid regurgitation present. 20. There is mild pulmonary hypertension. 21. The right ventricular systolic pressure, as measured by Doppler, is 34.97mmHg. 22. There is no pulmonic regurgitation present. 23. The aortic root size is normal. 24. IVC Not well visulized. 25. There is no pericardial effusion. [employer]: Winnie Garza RDCS
[2019-03-15 12:14] LABS: Glucose,Whole Blood 132 mg/dL (75-99)
[2019-03-15 17:26] LABS: Glucose,Whole Blood 183 mg/dL (75-99)
--- NOTE | 2019-03-15 17:38 | PN ---
PROGRESS NOTE DATE OF SERVICE: 03/15/2019 REASON FOR FOLLOWUP: Urinary tract infection. INTERVAL HISTORY: The patient is currently afebrile. She is more awake and alert today. She was able to answer some simple questions. Denies having any chest pain. Minimal cough. No nausea, vomiting. Denies any abdominal pain and no diarrhea has been reported. Did have significant swelling in the legs, but no redness. PHYSICAL EXAMINATION: Blood pressure 107/54 with a pulse of 56, temperature of 98. She is 94% on 2 L. General description is an elderly female, lying in bed in no distress. Respiratory system: Unlabored breathing, clear to auscultation anteriorly. Heart S1, S2 regular rate and rhythm. Abdomen soft, no tenderness. LABS: Urine showing a gram-negative. Blood culture so far negative. DIAGNOSTIC IMPRESSION AND PLAN: Patient with gram-negative urinary tract infection. The patient is currently covered with Rocephin that will be continued while waiting for the culture to finalize. Monitor clinical course closely. MMODL / IJN: [id number] /
[2019-03-15] MEDS: CHOLECALCIFEROL 1,000 UNIT TAB PO SCH (20:25)
[2019-03-15] MEDS: MONTELUKAST 10 MG TAB PO SCH (20:25)
[2019-03-15] MEDS: ARIPiprazole 5 MG TAB PO SCH (20:26)
[2019-03-15] MEDS: ATORVASTATIN 40 MG TAB PO SCH (20:26)
[2019-03-15 20:30] LABS: Glucose,Whole Blood 240 mg/dL (75-99)
--- NOTE | 2019-03-15 21:08 | PN ---
PROGRESS NOTE 73-year-old white female admitted with urosepsis and metabolic encephalopathy secondary to urosepsis. Remains on IV Rocephin. Waiting for blood cultures. The final culture sensitivities before discharging. Cardiology has cleared her for discharge. Started on some IV Lasix for diastolic heart failure. CT scan of the chest did not show any significant lung cancers or pneumonias. Remains on antibiotics at this time and fluids. She apparently with some mild dehydration on admission. BNP was 2310. Cardiovascular S1-S2. Endocrine: BMI is over 50. GI is distended due to obesity. Hematology: Generalized large amount of fluid in the legs. ASSESSMENT: 1. Insulin dependent diabetes mellitus. 2. Coronary artery disease. 3. Congestive heart failure, diastolic. 4. Urinary tract infection with metabolic encephalopathy, remain on IV antibiotics. 5. Fluid rehydration. 6. Follow up in the next 24-48 hours. MMODL / IJN: [id number] /
[2019-03-16] MEDS: METOPROLOL TARTRATE 25 MG TAB PO SCH ×4 (00:19→21:26)
[2019-03-16] MEDS: GABAPENTIN 100 MG CAP PO SCH ×2 (05:31→21:19)
[2019-03-16] MEDS: SODIUM CHLORIDE 0.9% 1,000 ML IV SCH (05:32)
[2019-03-16] MEDS: clonazePAM 1 MG TAB PO SCH ×3 (05:32→21:18)
[2019-03-16] MEDS: traMADol 50 MG TAB PO SCH ×3 (05:35→21:19)
[2019-03-16] MEDS: PANTOPRAZOLE 40 MG TABLET PO SCH (05:35)
[2019-03-16 06:49] LABS: Glucose,Whole Blood 165 mg/dL (75-99)
[2019-03-16] MEDS: CITALOPRAM HYDROBROMIDE 10 MG TAB PO SCH (07:13)
[2019-03-16] MEDS: ASPIRIN 81 MG PO SCH (07:14)
[2019-03-16] MEDS: CITALOPRAM HYDROBROMIDE 20 MG TAB PO SCH (07:14)
[2019-03-16] MEDS: CLOPIDOGREL 75 MG TAB PO SCH (07:14)
[2019-03-16] MEDS: FUROSEMIDE 10 MG/ML 4 ML VIAL IV SCH (07:14)
[2019-03-16] MEDS: FERROUS SULFATE 325 MG TAB PO SCH (07:14)
[2019-03-16] MEDS: NYSTATIN 100,000UNIT/GM CREAM 30 GM TUBE TOPICAL SCH ×2 (07:15→21:21)
[2019-03-16] MEDS: INSULIN ASPART (NovoLOG) 100 UNIT/ML VIAL SQ SCH ×3 (07:20→17:46)
[2019-03-16 07:52] LABS: Calcium 8.3 mg/dL (8.4-10.2); Potassium 4.3 mmol/L (3.5-5.1)
[2019-03-16] MEDS: BUDESONIDE 1 MG/2 ML NEBU INHALATION SCH ×2 (08:21→19:56)
[2019-03-16] MEDS: IPRATROPIUM-ALBUTEROL 3 ML NEB INHALATION PRN ×4 (08:21→19:56)
[2019-03-16] MEDS: ISOSORBIDE MONONITRATE ER 30 MG TAB.ER.24H PO SCH (08:27)
[2019-03-16] MEDS: LISINOPRIL 10 MG TAB PO SCH (08:27)
[2019-03-16] MEDS: NON FORMULARY DRUG (Lubiprostone [Amitiza] 24 MCG) PO SCH ×2 (08:28→21:19)
[2019-03-16 12:25] LABS: Glucose,Whole Blood 135 mg/dL (75-99)
[2019-03-16] MEDS: HYDROmorphone 0.5 MG/0.5 ML SYRINGE IVP PRN (14:38)
[2019-03-16] MEDS ORDERED: HYDROmorphone 1 MG/ML 1 ML SYRINGE IVP PRN (15:00)
[2019-03-16] MEDS ORDERED: FUROSEMIDE 10 MG/ML 2 ML VIAL IV ONE (15:15)
[2019-03-16] MEDS: methylPREDNISolone SOD SUCCI 40 MG/ML 1 ML VIAL IV SCH ×2 (15:17→23:29)
--- NOTE | 2019-03-16 15:36 | US ---
EXAMINATION TYPE: US venous doppler duplex LE DATE OF EXAM: 03/16/2019 3:22 PM COMPARISON: US CLINICAL HISTORY: rule out DVT. bilateral edema SIDE PERFORMED: Bilateral TECHNIQUE: The lower extremity deep venous system is examined utilizing real time linear array sonog jamal with graded compression, doppler sonography and color-flow sonography. VESSELS IMAGED: External Iliac Vein (EIV) Common Femoral Vein Deep Femoral Vein Greater Saphenous Vein * Femoral Vein Popliteal Vein Small Saphenous Vein * Proximal Calf Veins (* superficial vessels) LImited study bilaterally due to very large body habitus. Very little compression imaging performed. There is color flow seen throughout both legs. No evidence for DVT as visualized. Right Leg: Negative for DVT Left Leg: Negative for DVT IMPRESSION: No sign of deep venous thrombosis in both legs.
--- NOTE | 2019-03-16 15:58 | XR ---
EXAMINATION TYPE: XR chest 1V portable DATE OF EXAM: 03/16/2019 COMPARISON: 03/14/2019 HISTORY: Chest pain TECHNIQUE: FINDINGS: There is no heart failure. Lungs appear clear of consolidation. Costophrenic angles are yamil rly clear. Bony thorax is intact. There is poor inspiration. IMPRESSION: Inspiration decreased compared to last exam. No heart failure seen.
[2019-03-16 17:10] LABS: Glucose,Whole Blood 186 mg/dL (75-99)
--- NOTE | 2019-03-16 20:09 | PN ---
PROGRESS NOTE DATE OF SERVICE: 03/16/2019 REASON FOR FOLLOWUP: Urinary tract infection. INTERVAL HISTORY: The patient is currently afebrile. The patient is more awake and alert today. She is breathing comfortably. She has been complaining of some cough. No chest pain. No nausea, no vomiting, no abdominal pain or diarrhea. PHYSICAL EXAMINATION: Blood pressure 113/74 with a pulse of 75, temperature 97.5. She is 96% on 2 L nasal cannula. General description is an elderly female lying in bed in no distress. RESPIRATORY SYSTEM: Unlabored breathing with coarse breath sounds at the base. No wheeze. HEART: S1, S2. Regular rate and rhythm. ABDOMEN: Soft. No tenderness. LABS: Urine with an E coli that is sensitive to Rocephin that the patient is on. DIAGNOSTIC IMPRESSION AND PLAN: Patient admitted to hospital with mental status changes in this patient who did have a component of urinary tract infection. Urine has been finalized with E coli. Patient is covered with Rocephin; to continue. Will monitor clinical course closely. MMODL / IJN: [id number] /
[2019-03-16 20:12] LABS: Glucose,Whole Blood 323 mg/dL (75-99)
[2019-03-16] MEDS: INSULIN DETEMIR (LEVEMIR) 100 UNIT/ML SYR SQ SCH (21:18)
[2019-03-16] MEDS: MONTELUKAST 10 MG TAB PO SCH (21:19)
[2019-03-16] MEDS: ARIPiprazole 5 MG TAB PO SCH (21:19)
[2019-03-16] MEDS: ATORVASTATIN 40 MG TAB PO SCH (21:19)
[2019-03-16] MEDS: CHOLECALCIFEROL 1,000 UNIT TAB PO SCH (21:20)
[2019-03-16] MEDS: AZITHROMYCIN 500 MG in SODIUM CHLORIDE 0.9% 250 ML IVPB SCH (21:21)
--- NOTE | 2019-03-16 22:54 | PN ---
PROGRESS NOTE She had an episode of chest pain today. Cardiology saw her, adjusted a few medicines but did not feel it was cardiac related. Had a long discussion with her about her wearing her oxygen. She is taking her oxygen off in the half-way and that is contributing to a lot of her symptoms. D-dimer is negative. Sugars in the mid 100s. Troponin was negative today. Treated for urinary tract infection. She had E coli group A strep throat culture. Antibiotics for the urine infection. Blood cultures no growth. Throat culture was negative. Follow up in the next 24 to 48 hours for possible discharge to half-way. MMODL / IJN: [id number] /
[2019-03-17] MEDS: SODIUM CHLORIDE 0.9% 1,000 ML IV SCH ×2 (03:30→23:41)
[2019-03-17] MEDS: traMADol 50 MG TAB PO SCH ×3 (05:22→21:35)
[2019-03-17] MEDS: clonazePAM 1 MG TAB PO SCH ×3 (05:22→21:39)
[2019-03-17] MEDS: PANTOPRAZOLE 40 MG TABLET PO SCH (05:22)
[2019-03-17] MEDS: METOPROLOL TARTRATE 25 MG TAB PO SCH ×3 (05:22→21:44)
[2019-03-17] MEDS: GABAPENTIN 100 MG CAP PO SCH ×2 (05:22→21:43)
[2019-03-17 07:03] LABS: Glucose,Whole Blood 333 mg/dL (75-99)
[2019-03-17] MEDS: IPRATROPIUM-ALBUTEROL 3 ML NEB INHALATION PRN ×4 (07:11→19:31)
[2019-03-17] MEDS: BUDESONIDE 1 MG/2 ML NEBU INHALATION SCH ×2 (07:11→19:31)
[2019-03-17] MEDS: INSULIN ASPART (NovoLOG) 100 UNIT/ML VIAL SQ SCH ×6 (07:19→21:34)
[2019-03-17] MEDS: methylPREDNISolone SOD SUCCI 40 MG/ML 1 ML VIAL IV SCH (07:19)
[2019-03-17] MEDS: CITALOPRAM HYDROBROMIDE 20 MG TAB PO SCH (07:20)
[2019-03-17] MEDS: CLOPIDOGREL 75 MG TAB PO SCH (07:20)
[2019-03-17] MEDS: CITALOPRAM HYDROBROMIDE 10 MG TAB PO SCH (07:20)
[2019-03-17] MEDS: FUROSEMIDE 10 MG/ML 4 ML VIAL IV SCH (07:20)
[2019-03-17] MEDS: LISINOPRIL 10 MG TAB PO SCH (07:20)
[2019-03-17] MEDS: ISOSORBIDE MONONITRATE ER 30 MG TAB.ER.24H PO SCH (07:20)
[2019-03-17] MEDS: ASPIRIN 81 MG PO SCH (07:21)
[2019-03-17] MEDS: NON FORMULARY DRUG (Lubiprostone [Amitiza] 24 MCG) PO SCH ×2 (07:21→21:39)
[2019-03-17] MEDS: NYSTATIN 100,000UNIT/GM CREAM 30 GM TUBE TOPICAL SCH ×2 (07:32→21:39)
[2019-03-17] MEDS: FERROUS SULFATE 325 MG TAB PO SCH (08:07)
[2019-03-17 12:06] LABS: Glucose,Whole Blood 425 mg/dL (75-99)
--- NOTE | 2019-03-17 16:33 | PN ---
PROGRESS NOTE This is a 73-year-old white female who was admitted to the hospital. He has been having atypical chest pain musculoskeletal in nature. Cardiology has seen her and ruled her out for myocardial infarction. CT scan is negative for any blood clots in the chest. Discussed with her oxygen. She is asking for a mechanical chair so she can sit and move around. Sugars in 100s to 200s. She has had a negative D-dimer. She has E coli UTI. Await for susceptibility. Once we get it, we possibly can discharge her home tomorrow on antibiotics. MMODL / IJN: [id number] /
[2019-03-17 16:58] LABS: Glucose,Whole Blood 432 mg/dL (75-99)
[2019-03-17] MEDS ORDERED: AZITHROMYCIN 500 MG TAB PO SCH (21:00)
--- NOTE | 2019-03-17 21:04 | PN ---
PROGRESS NOTE DATE OF SERVICE: 03/17/2019 REASON FOR FOLLOWUP: E coli urinary tract infection. INTERVAL HISTORY: The patient is currently afebrile. Patient is breathing comfortably. The patient denies having any chest pain, shortness of breath or cough. No nausea, vomiting, abdominal pain. No diarrhea. PHYSICAL EXAMINATION: Blood pressure 135/65 with a pulse of 64. Temperature 97. She is 95% on room air. General description is an elderly female lying in bed in no distress. Respiratory system: Unlabored breathing. Clear to auscultation anteriorly. Heart S1, S2. Regular rate and rhythm. ABDOMEN: Soft, no tenderness. LABS: No new labs have been obtained today. DIAGNOSTIC IMPRESSION AND PLAN: 1. Patient with E coli urinary tract infection. Patient seemed to have shown clinical response to the Rocephin that should continue with the plan to finish therapy with oral Ceftin and we will monitor clinical course closely. 2. Lower extremity swelling but no evidence of any cellulitis. Continue with Pop wrap to keep the swelling down. MMODL / IJN: [id number] /
[2019-03-17 21:10] LABS: Glucose,Whole Blood 429 mg/dL (75-99)
[2019-03-17] MEDS: INSULIN DETEMIR (LEVEMIR) 100 UNIT/ML SYR SQ SCH (21:34)
[2019-03-17] MEDS: CHOLECALCIFEROL 1,000 UNIT TAB PO SCH (21:36)
[2019-03-17] MEDS: MONTELUKAST 10 MG TAB PO SCH (21:39)
[2019-03-17] MEDS: ARIPiprazole 5 MG TAB PO SCH (21:39)
[2019-03-17] MEDS: ATORVASTATIN 40 MG TAB PO SCH (21:39)
[2019-03-18] MEDS: HYDROmorphone 0.5 MG/0.5 ML SYRINGE IVP PRN (04:27)
[2019-03-18 05:36] VITALS: BP 151/72; RESP 17; TEMP 97.5
[2019-03-18] MEDS: traMADol 50 MG TAB PO SCH ×2 (06:06→12:50)
[2019-03-18] MEDS: METOPROLOL TARTRATE 25 MG TAB PO SCH ×2 (06:07→12:53)
[2019-03-18] MEDS: PANTOPRAZOLE 40 MG TABLET PO SCH (06:07)
[2019-03-18] MEDS: GABAPENTIN 100 MG CAP PO SCH (06:07)
[2019-03-18] MEDS: clonazePAM 1 MG TAB PO SCH ×2 (06:07→12:50)
[2019-03-18 07:11] LABS: Glucose,Whole Blood 194 mg/dL (75-99)
[2019-03-18] MEDS: IPRATROPIUM-ALBUTEROL 3 ML NEB INHALATION PRN (07:27)
[2019-03-18] MEDS: BUDESONIDE 1 MG/2 ML NEBU INHALATION SCH (07:27)
[2019-03-18] MEDS ORDERED: predniSONE 20 MG TAB PO SCH (09:00)
[2019-03-18] MEDS: FUROSEMIDE 10 MG/ML 4 ML VIAL IV SCH (09:44)
[2019-03-18] MEDS: ASPIRIN 81 MG PO SCH (09:46)
[2019-03-18] MEDS: LISINOPRIL 10 MG TAB PO SCH (09:46)
[2019-03-18] MEDS: INSULIN ASPART (NovoLOG) 100 UNIT/ML VIAL SQ SCH ×4 (09:46→12:45)
[2019-03-18] MEDS: CITALOPRAM HYDROBROMIDE 20 MG TAB PO SCH (09:46)
[2019-03-18] MEDS: ISOSORBIDE MONONITRATE ER 30 MG TAB.ER.24H PO SCH (09:46)
[2019-03-18] MEDS: CLOPIDOGREL 75 MG TAB PO SCH (09:46)
[2019-03-18] MEDS: FERROUS SULFATE 325 MG TAB PO SCH (09:46)
[2019-03-18] MEDS: CITALOPRAM HYDROBROMIDE 10 MG TAB PO SCH (09:46)
[2019-03-18] MEDS: NON FORMULARY DRUG (Lubiprostone [Amitiza] 24 MCG) PO SCH (09:47)
[2019-03-18] MEDS: NYSTATIN 100,000UNIT/GM CREAM 30 GM TUBE TOPICAL SCH (09:47)
--- NOTE | 2019-03-18 10:40 | P.DS ---
Providers Date of admission: 03/14/19 13:10 Expected date of discharge: 03/18/19 Attending physician: Chris Yi Consults: 03/14/19 13:08 Consult Physician Urgent Consulting Provider: [facility] Consult Reason/Comments: Pedal edema Do you want consulting provider notified?: Yes Consult Physician Urgent Consulting Provider: Holly Denny Consult Reason/Comments: Urinary tract infection Do you want consulting provider notified?: Yes Primary care physician: Chris Yi [facility] Course: Final Diagnoses: Chronic intermittent asthma, possibly mild component of acute exacerbation Chronic hypoxic respiratory failure Lower extremity edema, no CHF as per cardiology, Urinary tract infection, E. coli Acute metabolic encephalopathy secondary to infection Acute renal failure secondary to infection, possible dehydration CAD, history of stent Hypertension Dyslipidemia Diabetes mellitus Sleep apnea Morbid obesity, BMI 83.4 Hospital course: This is a 73-year-old female resident of [facility] subacute rehab. admitted with acute UTI, lower extremity edema and multiple other medical issues. Evaluated by cardiology, infectious disease. Maintained on IV antibi otics, diuretics with significant clinical improvement. Cleared by all consults for discharge. Patient is being discharged to [facility] in a stable condition with guarded prognosis. Microbiology 03/14/19 11:35 Blood Blood Culture - Preliminary No Growth after 72 hours 03/14/19 11:35 Throat Group A Strep Throat Culture - Final 03/14/19 11:48 Urine,Voided Urine Culture - Final Escherichia coli EXAM: GENERAL: Alert and oriented X 3, no acute distress LUNGS: Clear to auscultation, bilateral bases diminished CV: Regular S1 and S2 ABD: Soft nontender positive bowel sounds NEURO: No focal deficits The impression and plan of care has been dictated as directed. : I performed a history and examination of this patient, discussed the same with the dictator. I agree with the dictator's note ,documented as a scribe. Any additional findings or plans will be noted. Patient Condition at Discharge: Stable Plan - Discharge Summary Discharge Rx Participant: No New Discharge Prescriptions: New Nystatin 100,000Unit/gm Cream [Mycostatin Cream] 1 applic TOPICAL BID applic predniSONE 10 mg PO DIRECTED #30 tab Continue Nitroglycerin Sl Tabs [Nitrostat] 0.4 mg SUBLINGUAL Q5M PRN #30 tab PRN Reason: Chest Pain Atorvastatin [Lipitor] 40 mg PO HS@2100 Aspirin EC [Ecotrin Low Dose] 81 mg PO DAILY@0900 Acetaminophen [Tylenol] 650 mg PO Q6H PRN PRN Reason: Pain Albuterol Sulfate [Proair Hfa] 2 puff INHALATION RT-Q6H PRN PRN Reason: Shortness Of Breath Bisacodyl [Dulcolax] 10 mg RECTAL DAILY PRN supp PRN Reason: Constipation Montelukast Sodium [Singulair] 10 mg PO HS@2100 Bismuth Subsalicylate [Pepto-Bismol] 524 mg PO Q4H PRN PRN Reason: UPSET STOMACH Insulin Lispro [humaLOG Kwikpen] See Protocol SQ ACHS Pantoprazole [Protonix] 40 mg PO DAILY@0600 Lubiprostone [Amitiza] 24 mcg PO BID@0900,2100 Isosorbide Mononitrate ER [Imdur] 30 mg PO DAILY@0900 Ferrous Sulfate [Iron (65 MG Elemental)] 325 mg PO DAILY@0900 ARIPiprazole [Abilify] 5 mg PO HS@2100 Metoprolol Tartrate [Lopressor] 25 mg PO TID@0600,1400,2200 Lisinopril [Zestril] 10 mg PO DAILY@0900 Cholecalciferol [Vitamin D3 (25 Mcg = 1000 Iu)] 2,000 unit PO HS@2100 Citalopram Hydrobromide [CeleXA] 20 mg PO DAILY@0900 Citalopram Hydrobromide [CeleXA] 10 mg PO DAILY@0900 Clopidogrel [Plavix] 75 mg PO DAILY@0900 Furosemide [Lasix] 40 mg PO BID@0600,1400 Ipratropium-Albuterol Nebulize [Duoneb 0.5 mg-3 mg/3 ml Soln] 3 ml INHALATION RT-Q4H PRN PRN Reason: Shortness Of Breath Ipratropium-Albuterol Nebulize [Duoneb 0.5 mg-3 mg/3 ml Soln] 3 ml INHALATION RT-Q8H Loperamide HCl [Imodium A-D] 4 mg PO QID PRN PRN Reason: Diarrhea Magnesium Hydroxide [Milk of Magnesia] 2,400 mg PO DAILY PRN PRN Reason: Constipation Calcium Carbonate [Tums] 1,000 mg PO Q6H PRN PRN Reason: Gi Upset Budesonide [Pulmicort] 1 mg INHALATION RT-BID@899,2099 Insulin Detemir [Levemir Flextouch] 50 units SQ HS@2099 clonazePAM [KlonoPIN] 1 mg PO TID@0600,1400,0 #9 tab Gabapentin [Neurontin] 100 mg PO BID@0600,0 #6 predniSONE 10 mg PO Q48H #0 traMADol HCl [Ultram] 100 mg PO TID@0600,1400,2199 #18 Changed INSULIN LISPRO (HumaLOG) [humaLOG] 5 unit SQ AC-TID #0 Discharge Medication List Nitroglycerin Sl Tabs [Nitrostat] 0.4 mg SUBLINGUAL Q5M PRN #30 tab 12/23/16 [Rx] Atorvastatin [Lipitor] 40 mg PO HS@209901/30/17 [History] Aspirin EC [Ecotrin Low Dose] 81 mg PO DAILY@89912/14/17 [History] Acetaminophen [Tylenol] 650 mg PO Q6H PRN 01/16/18 [History] Albuterol Sulfate [Proair Hfa] 2 puff INHALATION RT-Q6H PRN 06/04/18 [History] Bisacodyl [Dulcolax] 10 mg RECTAL DAILY PRN supp 06/08/18 [Rx] Montelukast Sodium [Singulair] 10 mg PO HS@209907/02/18 [History] ARIPiprazole [Abilify] 5 mg PO HS@209909/04/18 [History] Bismuth Subsalicylate [Pepto-Bismol] 524 mg PO Q4H PRN 09/04/18 [History] Ferrous Sulfate [Iron (65 MG Elemental)] 325 mg PO DAILY@89909/04/18 [History] Insulin Lispro [humaLOG Kwikpen] See Protocol SQ ACHS 09/04/18 [History] Isosorbide Mononitrate ER [Imdur] 30 mg PO DAILY@89909/04/18 [History] Lubiprostone [Amitiza] 24 mcg PO BID@0900,209909/04/18 [History] Pantoprazole [Protonix] 40 mg PO DAILY@59909/04/18 [History] Lisinopril [Zestril] 10 mg PO DAILY@0912/25/18 [History] Metoprolol Tartrate [Lopressor] 25 mg PO TID@0600,1400,2200 12/25/18 [History] Citalopram Hydrobromide [CeleXA] 10 mg PO DAILY@0900 01/10/19 [History] Citalopram Hydrobromide [CeleXA] 20 mg PO DAILY@0901/10/19 [History] Ipratropium-Albuterol Nebulize [Duoneb 0.5 mg-3 mg/3 ml Soln] 3 ml INHALATION RT-Q4H PRN 01/10/19 [History] Loperamide HCl [Imodium A-D] 4 mg PO QID PRN 01/10/19 [History] Magnesium Hydroxide [Milk of Magnesia] 2,400 mg PO DAILY PRN 01/10/19 [History] Cholecalciferol [Vitamin D3 (25 Mcg = 1000 Iu)] 2,000 unit PO HS@209901/11/19 [History] Clopidogrel [Plavix] 75 mg PO DAILY@89901/11/19 [History] Furosemide [Lasix] 40 mg PO BID@0600,1400 01/11/19 [History] Ipratropium-Albuterol Nebulize [Duoneb 0.5 mg-3 mg/3 ml Soln] 3 ml INHALATION RT-Q8H 01/11/19 [History] Budesonide [Pulmicort] 1 mg INHALATION RT-BID@0900,209903/14/19 [History] Calcium Carbonate [Tums] 1,000 mg PO Q6H PRN 03/14/19 [History] Insulin Detemir [Levemir Flextouch] 50 units SQ HS@209903/14/19 [History] Gabapentin [Neurontin] 100 mg PO BID@0600,2200 #6 03/18/19 [Rx] INSULIN LISPRO (HumaLOG) [humaLOG] 5 unit SQ AC-TID #0 03/18/19 [Rx] Nystatin 100,000Unit/gm Cream [Mycostatin Cream] 1 applic TOPICAL BID applic 03/18/19 [Rx] clonazePAM [KlonoPIN] 1 mg PO TID@0600,1400,2200 #9 tab 03/18/19 [Rx] predniSONE 10 mg PO DIRECTED #30 tab 03/18/19 [Rx] predniSONE 10 mg PO Q48H #0 03/18/19 [Rx] traMADol HCl [Ultram] 100 mg PO TID@0600,1400,2200 #18 03/18/19 [Rx] Follow up Appointment(s)/Referral(s): Chris Yi MD [Primary Care Provider] - 1-2 days Activity/Diet/Wound Care/Special Instructions: [facility] ANtibx as per ID Pop wraps to bilateral lower extremity cbc,bmp in 3 days with results to PCP Diet: COPNsist. Carb Activity:as toplerated Discharge Disposition: TRANSFER TO SNF/ECF
[2019-03-18 11:11] VITALS: PULSE 56
[2019-03-18 11:58] LABS: Glucose,Whole Blood 241 mg/dL (75-99)
--- NOTE | 2019-03-18 16:41 | PN ---
PROGRESS NOTE DATE OF SERVICE: 03/18/2019. REASON FOR FOLLOWUP: E coli urinary tract infection. INTERVAL HISTORY: The patient was seen on rounds this morning. The patient has been afebrile. Patient is breathing comfortably. Denies having any chest pain or any cough. No nausea, no vomiting, no abdominal pain or diarrhea. PHYSICAL EXAMINATION: Blood pressure is 151/72 with a pulse of 80, temperature 97.5. She is 99% on 2 L nasal cannula. General description is an elderly female up in the bed in no distress. RESPIRATORY SYSTEM: Unlabored breathing. Clear to auscultation anteriorly. HEART: S1, S2. Regular rate and rhythm. ABDOMEN: Soft. No tenderness. LABS: No new labs have been obtained today. DIAGNOSTIC IMPRESSION AND PLAN: Patient with Escherichia coli urinary tract infection. Overall clinical improvement on Rocephin. Finishing therapy with oral Ceftin for another 3 days. Continue with supportive care. MMODL / IJN: [id number] /
== END 2019-03-18 14:36 | DRG 689 ==
LOC: EC 10:41 → 4SSUR 13:10 → 6NMEDSUR 16:18
PROVIDERS: ADMIT Family Medicine; ATTEND Family Medicine
DX: N39.0 Urinary tract infection, site not specified (principal); G93.41 Metabolic encephalopathy; N17.9 Acute kidney failure, unspecified; I50.30 Unspecified diastolic (congestive) heart failure; J45.21 Mild intermittent asthma with (acute) exacerbation; Z68.45 Body mass index [BMI] 70 or greater, adult; J96.11 Chronic respiratory failure with hypoxia; I11.0 Hypertensive heart disease with heart failure; G47.30 Sleep apnea, unspecified; I25.10 Atherosclerotic heart disease of native coronary artery without angina pectoris; Z79.02 Long term (current) use of antithrombotics/antiplatelets; B96.20 Unspecified Escherichia coli [E. coli] as the cause of diseases classified elsewhere; E89.2 Postprocedural hypoparathyroidism; E11.9 Type 2 diabetes mellitus without complications; E66.01 Morbid (severe) obesity due to excess calories; E78.5 Hyperlipidemia, unspecified; E86.0 Dehydration; Z79.4 Long term (current) use of insulin; Z79.51 Long term (current) use of inhaled steroids; Z79.82 Long term (current) use of aspirin; Z79.899 Other long term (current) drug therapy; Z80.42 Family history of malignant neoplasm of prostate; Z82.49 Family history of ischemic heart disease and other diseases of the circulatory system; Z82.5 Family history of asthma and other chronic lower respiratory diseases; I69.311 Memory deficit following cerebral infarction; Z90.710 Acquired absence of both cervix and uterus; Z95.5 Presence of coronary angioplasty implant and graft; M41.9 Scoliosis, unspecified; G89.29 Other chronic pain; Z88.5 Allergy status to narcotic agent; Z88.0 Allergy status to penicillin; Z88.8 Allergy status to other drugs, medicaments and biological substances; Z91.040 Latex allergy status; K58.9 Irritable bowel syndrome, unspecified; R32 Unspecified urinary incontinence; Z86.14 Personal history of Methicillin resistant Staphylococcus aureus infection; Z98.49 Cataract extraction status, unspecified eye; I87.8 Other specified disorders of veins
CPT/HCPCS: 36415; 71045; 71046; 71250; 80048; 80053; 81001; 82272; 83605; 83880; 84484; 85025; 85379; 85610; 85730; 87040; 87077; 87081; 87086; 87186; 87430; 87502; 93005; 93306; 93970; 94640; 94760; 96365; 96375; 99285

== ENCOUNTER 2019-04-09 12:29 | Inpatient (IN) | payer MEDICARE, OTHER ==
--- NOTE | 2019-04-09 12:43 | ED ---
General Adult HPI - General Stated complaint: Hypotension Time Seen by Provider: 04/09/19 12:32 Source: patient, EMS, RN notes reviewed Mode of arrival: EMS Limitations: physical limitation - History of Present Illness Initial comments: Patient is a pleasant 74-year-old female presenting to the emergency department from intermediate for low blood pressure. EMS arrived and found heart rate in the 30s and blood pressure 70. They did give atropine with improvement of heart rate to the 40s and blood pressure up to the 90s. Repeat blood pressure was over 100. Patient just complains of generalized fatigue. Patient denies confusion or isolated area of weakness. Patient is on Levaquin for recent diagnosis of urinary tract infection. - Related Data Home Medications Medication Instructions Recorded Confirmed Atorvastatin [Lipitor] 40 mg PO HS@209901/30/17 04/09/19 Aspirin EC [Ecotrin Low Dose] 81 mg PO DAILY@89912/14/17 04/09/19 Acetaminophen [Tylenol] 650 mg PO Q6H PRN 01/16/18 04/09/19 Albuterol Sulfate [Proair Hfa] 2 puff INHALATION RT-Q6H PRN 06/04/18 04/09/19 Montelukast Sodium [Singulair] 10 mg PO HS@209907/02/18 04/09/19 ARIPiprazole [Abilify] 5 mg PO HS@209909/04/18 04/09/19 Bismuth Subsalicylate 524 mg PO Q4H PRN 09/04/18 04/09/19 [Pepto-Bismol] Ferrous Sulfate [Iron (65 MG 325 mg PO DAILY@89909/04/18 04/09/19 Elemental)] Insulin Lispro [humaLOG Kwikpen] See Protocol SQ ACHS 09/04/18 04/09/19 Isosorbide Mononitrate ER [Imdur] 30 mg PO BID 09/04/18 04/09/19 Lubiprostone [Amitiza] 24 mcg PO BID@09,209909/04/18 04/09/19 Pantoprazole [Protonix] 40 mg PO DAILY@0909/04/18 04/09/19 Lisinopril [Zestril] 10 mg PO DAILY@89912/25/18 04/09/19 Metoprolol Tartrate [Lopressor] 25 mg PO TID@0600,1400,2200 12/25/18 04/09/19 Citalopram Hydrobromide [CeleXA] 10 mg PO DAILY@0900 01/10/19 04/09/19 Citalopram Hydrobromide [CeleXA] 20 mg PO DAILY@0900 01/10/19 04/09/19 Ipratropium-Albuterol Nebulize 3 ml INHALATION RT-Q4H PRN 01/10/19 04/09/19 [Duoneb 0.5 mg-3 mg/3 ml Soln] Loperamide HCl [Imodium A-D] 4 mg PO QID PRN 01/10/19 04/09/19 Magnesium Hydroxide [Milk of 2,400 mg PO DAILY PRN 01/10/19 04/09/19 Magnesia] Cholecalciferol [Vitamin D3 (25 2,000 unit PO HS@209901/11/19 04/09/19 Mcg = 1000 Iu)] Clopidogrel [Plavix] 75 mg PO DAILY@0901/11/19 04/09/19 Furosemide [Lasix] 40 mg PO BID@0600,1400 01/11/19 04/09/19 Ipratropium-Albuterol Nebulize 3 ml INHALATION RT-Q8H 01/11/19 04/09/19 [Duoneb 0.5 mg-3 mg/3 ml Soln] Budesonide [Pulmicort] 1 mg INHALATION RT-BID@0900,209903/14/19 04/09/19 Calcium Carbonate [Tums] 1,000 mg PO Q6H PRN 03/14/19 04/09/19 Insulin Detemir [Levemir Flextouch] 50 units SQ HS@209903/14/19 04/09/19 Diflorasone Diacetate [Psorcon] 1 applic TOPICAL DAILY PRN 04/09/19 04/09/19 Diflorasone Diacetate [Psorcon] 1 applic TOPICAL HS 04/09/19 04/09/19 INSULIN LISPRO (HumaLOG) [humaLOG] 5 unit SQ AC-TID 04/09/19 04/09/19 Levofloxacin [Levaquin] 500 mg PO DAILY 02/04/20 02/04/20 Na Phos,M-B/Na Phos,Di-Ba [Fleet 133 ml RECTAL DAILY PRN 04/09/19 04/09/19 Adult] Previous Rx's Medication Instructions Recorded Nitroglycerin Sl Tabs [Nitrostat] 0.4 mg SUBLINGUAL Q5M PRN #30 tab 12/23/16 Bisacodyl [Dulcolax] 10 mg RECTAL DAILY PRN supp 06/08/18 Gabapentin [Neurontin] 100 mg PO BID@0600,2200 #6 03/18/19 clonazePAM [KlonoPIN] 1 mg PO TID@0600,1400,2200 #9 tab 03/18/19 predniSONE 10 mg PO Q48H #0 03/18/19 traMADol HCl [Ultram] 100 mg PO TID@0600,1400,2200 #18 03/18/19 Allergies Allergy/AdvReac Type Severity Reaction Status Date / Time adhesive Allergy Mild Rash/Hives, Verified 04/09/19 13:23 W/ TAPES, CAN USE PAPER TAPE latex Allergy Mild Rash/Hives- Verified 04/09/19 13:23 Sores codeine Allergy Anaphylaxis Verified 04/09/19 13:23 Penicillins Allergy Anaphylaxis Verified 04/09/19 13:23 propoxyphene napsylate Allergy Anaphylaxis Verified 04/09/19 13:23 [From Darvocet-N 100] tuberculin, purified protein Allergy Rash/Hives Verified 04/09/19 13:23 deriva [tuberculin,purif.prot.deriv.] morphine AdvReac Hallucinations, Verified 04/09/19 13:23 anxious Review of Systems ROS Statement: Those systems with pertinent positive or pertinent negative responses have been documented in the HPI. ROS Other: All systems not noted in ROS Statement are negative. Constitutional: Denies: fever Eyes: Denies: eye pain ENT: Denies: ear pain Respiratory: Denies: cough, dyspnea Cardiovascular: Denies: chest pain, palpitations Endocrine: Reports: fatigue Gastrointestinal: Denies: abdominal pain Genitourinary: Denies: dysuria Musculoskeletal: Denies: back pain Skin: Denies: rash Neurological: Reports: as per HPI Past Medical History Past Medical History: Asthma, Coronary Artery Disease (CAD), Cancer, Chest Pain / Angina, Heart Failure, CVA/TIA, Diabetes Mellitus, GERD/Reflux, Hyperlipidemia, Hypertension, Memory Impairment, Pneumonia, Sleep Apnea/CPAP/BIPAP, Thyroid Disorder Additional Past Medical History / Comment(s): IDDM, unable to tolerate C-PAP, hx. 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 , states unable to stand-needs yadira lift to transfer., patient states she has constipation with "pain in bowel" and nausea., resides at [facility] on [facility]. History of Any Multi-Drug Resistant Organisms: ESBL, MRSA Date of last positivie culture/infection: 06/05/18 ESBL/ MRSA 04/02/11 MDRO Source:: ESBL URINE / MRSA LEG, CHEST, ANKLE Past Surgical History: Bladder Surgery, Cholecystectomy, Heart Catheterization, Heart Catheterization With Stent, Hysterectomy Additional Past Surgical History / Comment(s): Angioplasty with multiple stents- pt states last stent mar 2018., partial parathyroidectomy, cataracts , I and D of L chest wall abscess and L ankle wound, bladder surgery with implant of stimulator system 02/2010, EGD/colonoscoy, Pain procedures. Past Anesthesia/Blood Transfusion Reactions: No Reported Reaction, Motion Sickness Additional Past Anesthesia/Blood Transfusion Reaction / Comment(s): Pt states she has received blood in the past without reaction. Date of Last Stent Placement:: 06/29/16 Past Psychological History: Anxiety, Depression Smoking Status: Never smoker Past Alcohol Use History: None Reported Past Drug Use History: None Reported - Past Family History Brother(s) Family Medical History: Coronary Artery Disease (CAD) Father Family Medical History: Cancer, Coronary Artery Disease (CAD) Additional Family Medical History / Comment(s): Father had prostate cancer. Mother Family Medical History: Asthma, COPD General Exam Limitations: physical limitation General appearance: alert, obese Head exam: Present: normocephalic Eye exam: Present: normal appearance, PERRL ENT exam: Present: normal oropharynx Neck exam: Present: normal inspection Respiratory exam: Present: normal lung sounds bilaterally Cardiovascular Exam: Present: bradycardia Expanded Peripheral pulses: 2+: Radial (R), Radial (L), Dorsalis Pedis (R), Dorsalis Pedis (L) GI/Abdominal exam: Present: soft. Absent: tenderness Extremities exam: Present: normal inspection. Absent: calf tenderness Neurological exam: Present: alert, oriented X3 Expanded Motor strength exam: RUE: 5, LUE: 5, RLE: 3, LLE: 3 Eye Response: (4) open spontaneously Motor Response: (6) obeys commands Verbal Response: (5) oriented Psychiatric exam: Present: flat affect Skin exam: Present: normal color Course Vital Signs 04/09/19 04/09/19 04/09/19 12:31 12:36 12:49 Temperature 97.3 F L Pulse Rate 41 L 39 L Pulse Rate [ 35 L Left Supine Radial] Respiratory 16 18 22 Rate Blood Pressure 130/117 130/117 O2 Sat by Pulse 95 96 Oximetry 04/09/19 04/09/19 04/09/19 13:02 13:36 14:12 Temperature Pulse Rate 39 L 56 L 57 L Pulse Rate [ Left Supine Radial] Respiratory 16 22 18 Rate Blood Pressure 97/77 76/61 98/43 O2 Sat by Pulse 95 92 L 91 L Oximetry 04/09/19 14:14 Temperature Pulse Rate 57 L Pulse Rate [ Left Supine Radial] Respiratory Rate Blood Pressure O2 Sat by Pulse Oximetry - Reevaluation(s) Reevaluation #1: 04/09/19 12:51 Case was discussed with Dr. Garvey who did review EKG. He recommends starting dopamine at this time through peripheral line. 04/09/19 13:42 DL body weight of 5 foot 1 female at 38 kg is fluid bolus of 30 mL/kg of 1500 mL. 2 L bolus was ordered. 04/09/19 14:01 Case was discussed with Dr. lei, who will admit covering for Dr. Yi 04/09/19 14:22 Patient is again reevaluated and is more alert. Heart rate 60. Blood pressure 97 systolic. EKG Findings - EKG Comments: EKG Findings:: Junctional bradycardia with a rate of 41. QRS 94. QT 468. QTC 386. Normal axis. Normal QRS. No acute ST change. Medical Decision Making - Lab Data Result diagrams: 04/09/19 12:40 04/09/19 12:40 Lab Results 04/09/19 04/09/19 04/09/19 Range/Units 12:40 12:40 12:40 WBC 13.1 H (3.8-10.6) k/uL RBC 3.08 L (3.80-5.40) m/uL Hgb 10.0 L D (11.4-16.0) gm/dL Hct 31.8 L (34.0-46.0) % MCV 103.3 H (80.0-100.0) fL MCH 32.4 (25.0-35.0) pg MCHC 31.3 (31.0-37.0) g/dL RDW 14.7 (11.5-15.5) % Plt Count 179 (150-450) k/uL Neutrophils % 76 % Lymphocytes % 16 % Monocytes % 5 % Eosinophils % 2 % Basophils % 1 % Neutrophils # 10.0 H (1.3-7.7) k/uL Lymphocytes # 2.1 (1.0-4.8) k/uL Monocytes # 0.6 (0-1.0) k/uL Eosinophils # 0.2 (0-0.7) k/uL Basophils # 0.1 (0-0.2) k/uL Hypochromasia Slight Macrocytosis Slight PT 9.6 (9.0-12.0) sec INR 0.9 (<1.2) APTT 19.7 L (22.0-30.0) sec Sodium 133 L (137-145) mmol/L Potassium 6.7 H* (3.5-5.1) mmol/L Chloride 95 L (98-107) mmol/L Carbon Dioxide 28 (22-30) mmol/L Anion Gap 10 mmol/L BUN 122 H* (7-17) mg/dL Creatinine 5.60 H (0.52-1.04) mg/dL Est GFR (CKD-EPI)AfAm 8 (>60 ml/min/1.73 sqM) Est GFR (CKD-EPI)NonAf 7 (>60 ml/min/1.73 sqM) Glucose 113 H (74-99) mg/dL Plasma Lactic Acid Toy (0.7-2.0) mmol/L Calcium 8.7 (8.4-10.2) mg/dL Magnesium 2.1 (1.6-2.3) mg/dL Total Bilirubin 0.3 (0.2-1.3) mg/dL AST 14 (14-36) U/L ALT 15 (4-34) U/L Alkaline Phosphatase 45 (38-126) U/L Troponin I (0.000-0.034) ng/mL Total Protein 5.1 L (6.3-8.2) g/dL Albumin 3.1 L (3.5-5.0) g/dL TSH 10.000 H (0.465-4.680) mIU/L Free T4 1.16 (0.78-2.19) ng/dL Free T3 pg/mL 2.8 (2.8-5.3) pg/ml 04/09/19 04/09/19 Range/Units 12:40 12:40 WBC (3.8-10.6) k/uL RBC (3.80-5.40) m/uL Hgb (11.4-16.0) gm/dL Hct (34.0-46.0) % MCV (80.0-100.0) fL MCH (25.0-35.0) pg MCHC (31.0-37.0) g/dL RDW (11.5-15.5) % Plt Count (150-450) k/uL Neutrophils % % Lymphocytes % % Monocytes % % Eosinophils % % Basophils % % Neutrophils # (1.3-7.7) k/uL Lymphocytes # (1.0-4.8) k/uL Monocytes # (0-1.0) k/uL Eosinophils # (0-0.7) k/uL Basophils # (0-0.2) k/uL Hypochromasia Macrocytosis PT (9.0-12.0) sec INR (<1.2) APTT (22.0-30.0) sec Sodium (137-145) mmol/L Potassium (3.5-5.1) mmol/L Chloride (98-107) mmol/L Carbon Dioxide (22-30) mmol/L Anion Gap mmol/L BUN (7-17) mg/dL Creatinine (0.52-1.04) mg/dL Est GFR (CKD-EPI)AfAm (>60 ml/min/1.73 sqM) Est GFR (CKD-EPI)NonAf (>60 ml/min/1.73 sqM) Glucose (74-99) mg/dL Plasma Lactic Acid Toy 1.3 (0.7-2.0) mmol/L Calcium (8.4-10.2) mg/dL Magnesium (1.6-2.3) mg/dL Total Bilirubin (0.2-1.3) mg/dL AST (14-36) U/L ALT (4-34) U/L Alkaline Phosphatase (38-126) U/L Troponin I 0.021 (0.000-0.034) ng/mL Total Protein (6.3-8.2) g/dL Albumin (3.5-5.0) g/dL TSH (0.465-4.680) mIU/L Free T4 (0.78-2.19) ng/dL Free T3 pg/mL (2.8-5.3) pg/ml - Radiology Data Radiology results: image reviewed (Chest x-ray shows suboptimal exam. Cardiomegaly. Possible atelectasis.) Critical Care Time Critical Care Time: Yes Total Critical Care Time: 33 Disposition Clinical Impression: Hyperkalemia, Bradycardia Disposition: ADMITTED IP TO THIS HOSP Is patient prescribed a controlled substance at d/c from ED?: No Decision Time: 14:22
[2019-04-09] MEDS ORDERED: DOPamine DRIP 800 MG in DEXTROSE/WATER 1 250ML.BAG IV ONE (12:49)
[2019-04-09 13:15] LABS: Albumin 3.1 g/dL (3.5-5.0); Calcium 8.7 mg/dL (8.4-10.2); Magnesium 2.1 mg/dL (1.6-2.3); Total Bilirubin 0.3 mg/dL (0.2-1.3); Total Protein 5.1 g/dL (6.3-8.2)
--- NOTE | 2019-04-09 13:15 | XR ---
EXAMINATION TYPE: XR chest 1V portable DATE OF EXAM: 04/09/2019 COMPARISON: Prior chest x-ray 03/16/2019 HISTORY: Dysrhythmia TECHNIQUE: Single frontal view of the chest is obtained. FINDINGS: Patient is rotated, exam is expiratory. There are overlying cardiac leads. The heart is en larged. Central vascularity appears prominently. No evident pneumothorax or pleural effusion. Surgica l clips are present in the neck, thoracic inlet level. Minimal basilar increased density noted. Aorta is dense. IMPRESSION: Expiratory rotated exam. Probable subsegmental basilar atelectatic changes. Cardiomegaly . Follow-up as indicated.
[2019-04-09 13:26] LABS: Potassium 6.7 mmol/L (3.5-5.1)
[2019-04-09 13:27] LABS: Basophils # (A) 0.1 k/uL (0-0.2); Basophils % (A) 1 %; Eosinophils # (A) 0.2 k/uL (0-0.7); Eosinophils % (A) 2 %; HCT 31.8 % (34.0-46.0); Hypochromasia Slight; INR 0.9 (<1.2); Lymphocytes # (A) 2.1 k/uL (1.0-4.8); Lymphocytes % (A) 16 %; MCH 32.4 pg (25.0-35.0); MCHC 31.3 g/dL (31.0-37.0); MCV 103.3 fL (80.0-100.0); Macrocytosis Slight; Mean Platelet Volume 8.5; Monocytes # (A) 0.6 k/uL (0-1.0); Monocytes % (A) 5 %; Neutrophils % (A) 76 %; Platelet Count 179 k/uL (150-450); Prothrombin Time 9.6 sec (9.0-12.0); RBC 3.08 m/uL (3.80-5.40); RDW 14.7 % (11.5-15.5); WBC 13.1 k/uL (3.8-10.6)
[2019-04-09 13:29] LABS: T4, Free (Free Thyroxine) 1.16 ng/dL (0.78-2.19)
[2019-04-09 13:30] LABS: Partial Thromboplastin Time 19.7 sec (22.0-30.0)
[2019-04-09] MEDS ORDERED: DEXTROSE 50% SYRINGE 50 ML IVP STA (13:37)
[2019-04-09] MEDS ORDERED: SODIUM BICARB 8.4% 50 ML SYR (1 MEQ/ML) IV STA ×2 (13:37→19:40)
[2019-04-09] MEDS ORDERED: INSULIN REGULAR 100 UNIT/ML VIAL IV ONE ×2 (13:37→19:36)
[2019-04-09] MEDS ORDERED: SODIUM POLYSTYRENE SULFONATE 15 GM/60 ML BOTTLE PO ONE (13:38)
[2019-04-09] MEDS ORDERED: ALBUTEROL NEBULIZED 2.5 MG/3 ML INHALATION STA (13:38)
[2019-04-09] MEDS ORDERED: SODIUM CHLORIDE 0.9% 1,000 ML IV STA ×2 (13:41)
[2019-04-09] MEDS ORDERED: NALOXONE 0.4 MG/ML 1 ML VIAL IV PRN (13:51)
[2019-04-09] MEDS ORDERED: BISACODYL 10 MG SUPP RECTAL PRN (14:06)
[2019-04-09] MEDS ORDERED: CALCIUM CARBONATE 500 MG CHEWABLE PO PRN (14:06)
[2019-04-09] MEDS: CALCIUM GLUCONATE 1 GM in SODIUM CHLORIDE 0.9% 100 ML IVPB ONE ×2 (14:07→14:19)
--- NOTE | 2019-04-09 14:22 | P.HPIM ---
History of Present Illness This is a pleasant 74 years old female with past medical history of heart failure, hypertension, hyperlipidemia, diabetes mellitus, coronary artery syndrome status post stent placement last one was last year on 03/2018, partial parathyroidectomy, chronic low back pain, scoliosis, urine incontinence, irritable bowel syndrome, peptic ulcer disease, hiatal hernia, TIA, hemorrhoids, cervical cancer status post hysterectomy. Patient was sent from the correction of [facility] for shortness of breath, patient states she could not breathe for the last 2-3 days, patient also complaining of from right mid abdominal pain/right flank pain, no chest pain no nausea vomiting. Patient felt tired and she did not finish the encounter On admission patient was tachycardic with heart rate were 39-57, blood pressure was 76/61 and she's getting 2 L of normal saline bolus. Review of Systems CONSTITUTIONAL: No fever, no malaise, no fatigue. HEENT: No recent visual problems or hearing problems. Denied any sore throat. CARDIOVASCULAR: No orthopnea, PND, no palpitations, no syncope. PULMONARY: no hemoptysis. GASTROINTESTINAL: No diarrhea, no nausea, no vomiting, no abdominal pain. Normoactive bowel sounds. NEUROLOGICAL: No headaches, no weakness, no numbness. HEMATOLOGICAL: Denies any bleeding or petechiae. GENITOURINARY: Denies any burning micturition, frequency, or urgency. MUSCULOSKELETAL/RHEUMATOLOGICAL: Denies any joint pain, swelling, or any muscle pain. ENDOCRINE: Denies any polyuria or polydipsia. Past Medical History Past Medical History: Asthma, Coronary Artery Disease (CAD), Cancer, Chest Pain / Angina, Heart Failure, CVA/TIA, Diabetes Mellitus, GERD/Reflux, Hyperlipidemia, Hypertension, Memory Impairment, Pneumonia, Sleep Apnea/CPAP/B IPAP, Thyroid Disorder Additional Past Medical History / Comment(s): IDDM, unable to tolerate C-PAP, hx. 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 , states unable to stand-needs yadira lift to transfer., patient states she has constipation with "pain in bowel" and nausea., resides at [facility] on the [facility]. History of Any Multi-Drug Resistant Organisms: ESBL, MRSA Date of last positivie culture/infection: 06/05/18 ESBL/ MRSA 04/02/11 MDRO Source:: ESBL URINE / MRSA LEG, CHEST, ANKLE Past Surgical History: Bladder Surgery, Cholecystectomy, Heart Catheterization, Heart Catheterization With Stent, Hysterectomy Additional Past Surgical History / Comment(s): Angioplasty with multiple stents- pt states last stent mar 2018., partial parathyroidectomy, cataracts , I and D of L chest wall abscess and L ankle wound, bladder surgery with implant of stimulator system 02/2010, EGD/colonoscoy, Pain procedures. Past Anesthesia/Blood Transfusion Reactions: No Reported Reaction, Motion Sickness Additional Past Anesthesia/Blood Transfusion Reaction / Comment(s): Pt states she has received blood in the past without reaction. Date of Last Stent Placement:: 06/29/16 Past Psychological History: Anxiety, Depression Smoking Status: Never smoker Past Alcohol Use History: None Reported Past Drug Use History: None Reported - Past Family History Brother(s) Family Medical History: Coronary Artery Disease (CAD) Father Family Medical History: Cancer, Coronary Artery Disease (CAD) Additional Family Medical History / Comment(s): Father had prostate cancer. Mother Family Medical History: Asthma, COPD Medications and Allergies Home Medications Medication Instructions Recorded Confirmed Type Nitroglycerin Sl Tabs [Nitrostat] 0.4 mg SUBLINGUAL Q5M PRN #30 tab 12/23/16 04/09/19 Rx Atorvastatin [Lipitor] 40 mg PO HS@2100 01/30/17 04/09/19 History Aspirin EC [Ecotrin Low Dose] 81 mg PO DAILY@0900 12/14/17 04/09/19 History Acetaminophen [Tylenol] 650 mg PO Q6H PRN 01/16/18 04/09/19 History Albuterol Sulfate [Proair Hfa] 2 puff INHALATION RT-Q6H PRN 06/04/18 04/09/19 History Bisacodyl [Dulcolax] 10 mg RECTAL DAILY PRN supp 06/08/18 04/09/19 Rx Montelukast Sodium [Singulair] 10 mg PO HS@2100 07/02/18 04/09/19 History ARIPiprazole [Abilify] 5 mg PO HS@2100 09/04/18 04/09/19 History Bismuth Subsalicylate 524 mg PO Q4H PRN 09/04/18 04/09/19 History [Pepto-Bismol] Ferrous Sulfate [Iron (65 MG 325 mg PO DAILY@0900 09/04/18 04/09/19 History Elemental)] Insulin Lispro [humaLOG Kwikpen] See Protocol SQ ACHS 09/04/18 04/09/19 History Isosorbide Mononitrate ER [Imdur] 30 mg PO BID 09/04/18 04/09/19 History Lubiprostone [Amitiza] 24 mcg PO BID@0900,2100 09/04/18 04/09/19 History Pantoprazole [Protonix] 40 mg PO DAILY@0900 09/04/18 04/09/19 History Lisinopril [Zestril] 10 mg PO DAILY@0900 12/25/18 04/09/19 History Metoprolol Tartrate [Lopressor] 25 mg PO TID@0600,1400,2200 12/25/18 04/09/19 History Citalopram Hydrobromide [CeleXA] 10 mg PO DAILY@0900 01/10/19 04/09/19 History Citalopram Hydrobromide [CeleXA] 20 mg PO DAILY@0900 01/10/19 04/09/19 History Ipratropium-Albuterol Nebulize 3 ml INHALATION RT-Q4H PRN 01/10/19 04/09/19 History [Duoneb 0.5 mg-3 mg/3 ml Soln] Loperamide HCl [Imodium A-D] 4 mg PO QID PRN 01/10/19 04/09/19 History Magnesium Hydroxide [Milk of 2,400 mg PO DAILY PRN 01/10/19 04/09/19 History Magnesia] Cholecalciferol [Vitamin D3 (25 2,000 unit PO HS@2100 01/11/19 04/09/19 History Mcg = 1000 Iu)] Clopidogrel [Plavix] 75 mg PO DAILY@0900 01/11/19 04/09/19 History Furosemide [Lasix] 40 mg PO BID@0600,1400 01/11/19 04/09/19 History Ipratropium-Albuterol Nebulize 3 ml INHALATION RT-Q8H 01/11/19 04/09/19 History [Duoneb 0.5 mg-3 mg/3 ml Soln] Budesonide [Pulmicort] 1 mg INHALATION RT-BID@0900,2100 03/14/19 04/09/19 History Calcium Carbonate [Tums] 1,000 mg PO Q6H PRN 03/14/19 04/09/19 History Insulin Detemir [Levemir Flextouch] 50 units SQ HS@2100 03/14/19 04/09/19 History Gabapentin [Neurontin] 100 mg PO BID@0600,2200 #6 03/18/19 04/09/19 Rx clonazePAM [KlonoPIN] 1 mg PO TID@0600,1400,2200 #9 tab 03/18/19 04/09/19 Rx predniSONE 10 mg PO Q48H #0 03/18/19 04/09/19 Rx traMADol HCl [Ultram] 100 mg PO TID@0600,1400,2200 #18 03/18/19 04/09/19 Rx Diflorasone Diacetate [Psorcon] 1 applic TOPICAL DAILY PRN 04/09/19 04/09/19 History Diflorasone Diacetate [Psorcon] 1 applic TOPICAL HS 04/09/19 04/09/19 History INSULIN LISPRO (HumaLOG) [humaLOG] 5 unit SQ AC-TID 04/09/19 04/09/19 History Levofloxacin [Levaquin] 500 mg PO DAILY 04/09/19 04/09/19 History Na Phos,M-B/Na Phos,Di-Ba [Fleet 133 ml RECTAL DAILY PRN 04/09/19 04/09/19 History Adult] Allergies Allergy/AdvReac Type Severity Reaction Status Date / Time adhesive Allergy Mild Rash/Hives, Verified 04/09/19 13:23 W/ TAPES, CAN USE PAPER TAPE latex Allergy Mild Rash/Hives- Verified 04/09/19 13:23 Sores codeine Allergy Anaphylaxis Verified 04/09/19 13:23 Penicillins Allergy Anaphylaxis Verified 04/09/19 13:23 propoxyphene napsylate Allergy Anaphylaxis Verified 04/09/19 13:23 [From Darvocet-N 100] tuberculin, purified protein Allergy Rash/Hives Verified 04/09/19 13:23 deriva [tuberculin,purif.prot.deriv.] morphine AdvReac Hallucinations, Verified 04/09/19 13:23 anxious Physical Exam Vitals: Vital Signs Temp Pulse Pulse Resp BP Pulse Ox 04/09/19 13:36 56 L 22 76/61 92 L 04/09/19 13:02 39 L 16 97/77 95 04/09/19 12:49 35 L 22 04/09/19 12:36 39 L 18 130/117 96 04/09/19 12:31 97.3 F L 41 L 16 130/117 95 Intake and Output 04/08/19 04/09/19 04/09/19 22:59 06:59 14:59 Other: Weight 159.211 kg -GENERAL: The patient is alert and oriented x3, not in any acute distress . morbidly obese HEENT: Pupils are round and equally reacting to light. EOMI. No scleral icterus. No conjunctival pallor. Normocephalic, atraumatic. No pharyngeal erythema. No thyromegaly. CARDIOVASCULAR: S1 and S2 present. No murmurs, rubs, or gallops. PULMONARY: Chest is clear to auscultation, no wheezing or crackles. -ABDOMEN: Soft, nontender, mild right mid abdomen/right flank tenderness, no rebound tenderness or guarding, normoactive bowel sounds. No palpable organomegaly. MUSCULOSKELETAL: No joint swelling or deformity. EXTREMITIES: No cyanosis, clubbing, or pedal edema. NEUROLOGICAL: Gross neurological examination did not reveal any focal deficits. SKIN: No rashes. No petechiae Results CBC & Chem 7: 04/09/19 12:40 04/09/19 12:40 Labs: Abnormal Lab Results - Last 24 Hours (Table) 04/09/19 04/09/19 04/09/19 Range/Units 12:40 12:40 12:40 WBC 13.1 H (3.8-10.6) k/uL RBC 3.08 L (3.80-5.40) m/uL Hgb 10.0 L D (11.4-16.0) gm/dL Hct 31.8 L (34.0-46.0) % MCV 103.3 H (80.0-100.0) fL Neutrophils # 10.0 H (1.3-7.7) k/uL APTT 19.7 L (22.0-30.0) sec Sodium 133 L (137-145) mmol/L Potassium 6.7 H* (3.5-5.1) mmol/L Chloride 95 L (98-107) mmol/L BUN 122 H* (7-17) mg/dL Creatinine 5.60 H (0.52-1.04) mg/dL Glucose 113 H (74-99) mg/dL Total Protein 5.1 L (6.3-8.2) g/dL Albumin 3.1 L (3.5-5.0) g/dL TSH 10.000 H (0.465-4.680) mIU/L Assessment and Plan Assessment: Acute kidney injury Hypothyroidism Hypotension Bradycardia Hyperkalemia Diabetes mellitus Hyperlipidemia Chronic heart failure History of hypertension History of coronary artery disease status post multiple stents Partial parathyroidectomy Chronic low back pain with scoliosis Urinary incontinence Irritable bowel syndrome Peptic ulcer disease Hiatal hernia TIA Hemorrhoids Cervical cancer status post hysterectomy Plan: This is a pleasant 74 years old female who presents with acute kidney injury, hyperkalemia, hypotension and bradycardia. Continue with atropine as needed and cartilage consult for possible need for pacemaker and for heart disease. Continue with IV fluids, give therapy for potassium protocol and follow-up the results. Consult sales broker as well. Start levothyroxine small dose. Hold blood pressure medication including lisinopril, Imdur and metoprolol. Continue with insulin and increase it to gradually Labs and medication were reviewed.. Continue same treatment. Continue with symptomatic treatment. Resume home medication. Monitor lytes and vitals. DVT and GI prophylaxis. Further recommendations of the clinical course of the patient DVT prophylaxis: Subcutaneous heparin GI Prophylaxis: Pepcid PT/OT: Pending Prognosis is guarded
[2019-04-09] MEDS ORDERED: NOREPINEPHRIN 4 MG-0.9% NS PMX 0 MG/0 ML ML IV ONE (15:37)
[2019-04-09] MEDS ORDERED: NOREPINEPHRINE 32 MG in SODIUM CHLORIDE 0.9% 218 ML IV ONE (15:38)
--- NOTE | 2019-04-09 15:39 | CONS ---
CONSULTATION CHIEF COMPLAINT: Bradycardia. This is a 74-year-old lady who is currently with complex and multiple medical problems including morbid obesity, coronary artery disease, COPD, hypertension, who is currently in a senior living and was found to be hypotensive and bradycardic. Her heart rate was in the 30s and blood pressures were in the 60s and 70s. She received atropine and was brought to the emergency room here at [facility]. She had recently been diagnosed with urinary tract infection is currently on Levaquin. At the time of my evaluation, she was in junctional bradycardia and is hypotensive. I started her on dopamine with which the heart rate had improved to the 50s and the blood pressure has improved. She has elevated potassium at 6.7. I believe her junctional bradycardia is due to a combination of hyperkalemia and the beta tish that she was on. We are going to stop the beta tish and treat the hyperkalemia. With that, I anticipate her sinus rhythm resolving. If not, she will need a temporary pacemaker and maybe even a permanent pacemaker. She denies chest pain. MEDICATIONS: Currently include Lipitor, aspirin, Tylenol, Singulair, Abilify, Pepto-Bismol, iron, Imdur, hematochezia, Protonix, Restoril, Lopressor, Celexa, Plavix, Lasix, insulin. ALLERGIES: Are as charted. FAMILY HISTORY: Negative for premature coronary artery disease. SOCIAL HISTORY: Negative for current smoking. There is no history of EtOH abuse or drug abuse. REVIEW OF SYSTEMS: HEENT: Unremarkable. CARDIAC: As described above. RESPIRATORY: As described above. GI: Negative. GENITOURINARY: Significant for renal failure. PSYCHOSOCIAL: Negative. ENDOCRINE: Negative. HEMATOLOGICAL: Negative. DERMATOLOGICAL: Negative. CONSTITUTIONAL: Negative. CONSTITUTIONAL: Significant for confusion, not feeling well. PHYSICAL EXAM: Heart rate is in the 40s. Blood pressure is a 76/60, respiratory rate is 18. Chest exam reveals diminished air entry bilaterally. Heart exam reveals first and second heart sounds. Ejection systolic murmur in the aortic area. Abdomen is soft. Exam of extremities reveals 1+ edema. Peripheral pulses are felt. An echocardiogram on her recently revealed normal LV systolic function with mild aortic stenosis. EKG shows junctional bradycardia. LABS: Show a hemoglobin of 10, platelet count is 179, potassium is 6.7, BUN is 122, creatinine is 5.6. TSH is 10. T4 is 1.16. ASSESSMENT: 1. Symptomatic bradycardia secondary to hyperkalemia. 2. Chronic renal failure. 3. Coronary artery disease, status post angioplasty. PLAN: I will continue the patient on dopamine, treat the hyperkalemia. Consult Nephrology. If necessary, we will perform temporary pacemaker and permanent pacemaker as needed. TYLER / LILLIANN: [id number] /
--- NOTE | 2019-04-09 15:45 | US ---
EXAMINATION TYPE: US renals and bladder DATE OF EXAM: 04/09/2019 COMPARISON: NONE CLINICAL HISTORY: gabriella. morbidly obese patient pending ICU admit EXAM MEASUREMENTS: Right Kidney: 9.3 x 5.0 x 4.8 cm Left Kidney: 8.4 x 5.4 x 4.7 cm severly limited images due to 350lb patient Right Kidney: No hydronephrosis or masses seen Left Kidney: No hydronephrosis or masses seen Bladder: obese patient had isaacs cath just put in, did not assess due to weight Kidney is not well seen. Kidneys show normal cortical medullary differentiation. IMPRESSION: Exam is limited by patient body habitus. No evident hydronephrosis.
[2019-04-09] MEDS ORDERED: LEVOFLOXACIN 750MG-D5W PMX 750 MG in DEXTROSE/WATER 1 150ML.BAG IVPB SCH (16:00)
[2019-04-09] MEDS: NOREPINEPHRINE 32 MG in SODIUM CHLORIDE 0.9% 218 ML IV SCH (16:03)
--- NOTE | 2019-04-09 16:03 | ED ---
Medical Decision Making - Medical Decision Making Patient with labile blood pressure, with more than one in the 70s. Family updated and consent given for central line. Central line placed. Case also discussed with Dr. Villegas who will accept patient in ICU and consult for critical care. - Lab Data Result diagrams: 04/09/19 12:40 04/09/19 12:40 Lab Results 04/09/19 04/09/19 04/09/19 Range/Units 12:40 12:40 12:40 WBC 13.1 H (3.8-10.6) k/uL RBC 3.08 L (3.80-5.40) m/uL Hgb 10.0 L D (11.4-16.0) gm/dL Hct 31.8 L (34.0-46.0) % MCV 103.3 H (80.0-100.0) fL MCH 32.4 (25.0-35.0) pg MCHC 31.3 (31.0-37.0) g/dL RDW 14.7 (11.5-15.5) % Plt Count 179 (150-450) k/uL Neutrophils % 76 % Lymphocytes % 16 % Monocytes % 5 % Eosinophils % 2 % Basophils % 1 % Neutrophils # 10.0 H (1.3-7.7) k/uL Lymphocytes # 2.1 (1.0-4.8) k/uL Monocytes # 0.6 (0-1.0) k/uL Eosinophils # 0.2 (0-0.7) k/uL Basophils # 0.1 (0-0.2) k/uL Hypochromasia Slight Macrocytosis Slight PT 9.6 (9.0-12.0) sec INR 0.9 (<1.2) APTT 19.7 L (22.0-30.0) sec Sodium 133 L (137-145) mmol/L Potassium 6.7 H* (3.5-5.1) mmol/L Chloride 95 L (98-107) mmol/L Carbon Dioxide 28 (22-30) mmol/L Anion Gap 10 mmol/L BUN 122 H* (7-17) mg/dL Creatinine 5.60 H (0.52-1.04) mg/dL Est GFR (CKD-EPI)AfAm 8 (>60 ml/min/1.73 sqM) Est GFR (CKD-EPI)NonAf 7 (>60 ml/min/1.73 sqM) Glucose 113 H (74-99) mg/dL Plasma Lactic Acid Toy (0.7-2.0) mmol/L Calcium 8.7 (8.4-10.2) mg/dL Magnesium 2.1 (1.6-2.3) mg/dL Total Bilirubin 0.3 (0.2-1.3) mg/dL AST 14 (14-36) U/L ALT 15 (4-34) U/L Alkaline Phosphatase 45 (38-126) U/L Troponin I (0.000-0.034) ng/mL Total Protein 5.1 L (6.3-8.2) g/dL Albumin 3.1 L (3.5-5.0) g/dL TSH 10.000 H (0.465-4.680) mIU/L Free T4 1.16 (0.78-2.19) ng/dL Free T3 pg/mL 2.8 (2.8-5.3) pg/ml 04/09/19 04/09/19 Range/Units 12:40 12:40 WBC (3.8-10.6) k/uL RBC (3.80-5.40) m/uL Hgb (11.4-16.0) gm/dL Hct (34.0-46.0) % MCV (80.0-100.0) fL MCH (25.0-35.0) pg MCHC (31.0-37.0) g/dL RDW (11.5-15.5) % Plt Count (150-450) k/uL Neutrophils % % Lymphocytes % % Monocytes % % Eosinophils % % Basophils % % Neutrophils # (1.3-7.7) k/uL Lymphocytes # (1.0-4.8) k/uL Monocytes # (0-1.0) k/uL Eosinophils # (0-0.7) k/uL Basophils # (0-0.2) k/uL Hypochromasia Macrocytosis PT (9.0-12.0) sec INR (<1.2) APTT (22.0-30.0) sec Sodium (137-145) mmol/L Potassium (3.5-5.1) mmol/L Chloride (98-107) mmol/L Carbon Dioxide (22-30) mmol/L Anion Gap mmol/L BUN (7-17) mg/dL Creatinine (0.52-1.04) mg/dL Est GFR (CKD-EPI)AfAm (>60 ml/min/1.73 sqM) Est GFR (CKD-EPI)NonAf (>60 ml/min/1.73 sqM) Glucose (74-99) mg/dL Plasma Lactic Acid Toy 1.3 (0.7-2.0) mmol/L Calcium (8.4-10.2) mg/dL Magnesium (1.6-2.3) mg/dL Total Bilirubin (0.2-1.3) mg/dL AST (14-36) U/L ALT (4-34) U/L Alkaline Phosphatase (38-126) U/L Troponin I 0.021 (0.000-0.034) ng/mL Total Protein (6.3-8.2) g/dL Albumin (3.5-5.0) g/dL TSH (0.465-4.680) mIU/L Free T4 (0.78-2.19) ng/dL Free T3 pg/mL (2.8-5.3) pg/ml Disposition Clinical Impression: Hyperkalemia, Bradycardia Disposition: ADMITTED IP TO THIS [facility] Condition: Critical Procedures - [place] Protocol (Time Out) Procedure Performed:: central line placement Nurse: Remedios Bocanegra Patient Identification (2 identifiers required): Chart, Arm Band, Name, Birthdate Patient/Legal Communication Specialist has Confirmed: Identity, Procedure, Consent - Central Line Placement Right Femoral Consent Obtained: written consent, emergent situation Patient Placed on Monitor/Pulse Ox: Yes Prep: mask, gown, gloves Central Line Prep: Chlorhexidine scrub Local Anesthesia Used: Lidocaine 1% Amount of Anesthesia Used (mls): 2 Central Line Lumen Inserted: triple Central Line Position: good blood return, all ports aspirated, flushed, capped, sutured in place with 3-0 nylon Dressing Applied: Tegaderm Patient Tolerated Procedure: well, no complications Complications: none
[2019-04-09 16:05] LABS: Appearance,Urine Cloudy (Clear); Bacteria,Urine Moderate /hpf; Bilirubin,Urine Negative (Negative); Blood,Urine Small (Negative); Color,Urine Yellow; Glucose,Urine (UA) Negative (Negative); Ketones,Urine Negative (Negative); Leukocyte Esterase,Urine Large (Negative); Nitrite,Urine Negative (Negative); Protein,Urine Negative (Negative); RBC,Urine 5 /hpf (0-5); Specific Gravity,Urine 1.015 (1.001-1.035); Squamous Epithelial Cell,Urine 1 /hpf (0-4); Urobilinogen,Urine <2.0 mg/dL (<2.0); WBC,Urine 163 /hpf (0-5)
[2019-04-09] MEDS ORDERED: CALCIUM GLUCONATE 1 GM in SODIUM CHLORIDE 0.9% 100 ML IVPB ONE ×2 (16:25→20:00)
--- NOTE | 2019-04-09 16:25 | ED ---
Medical Decision Making - Medical Decision Making Patient diagnosed with septic shock at 1620. Patient has received fluid bolus. Blood culture and lactic acid have been ordered. IV antibiotics will be ordered. - Lab Data Result diagrams: 04/09/19 12:40 04/09/19 12:40 Lab Results 04/09/19 04/09/19 04/09/19 Range/Units 12:40 12:40 12:40 WBC 13.1 H (3.8-10.6) k/uL RBC 3.08 L (3.80-5.40) m/uL Hgb 10.0 L D (11.4-16.0) gm/dL Hct 31.8 L (34.0-46.0) % MCV 103.3 H (80.0-100.0) fL MCH 32.4 (25.0-35.0) pg MCHC 31.3 (31.0-37.0) g/dL RDW 14.7 (11.5-15.5) % Plt Count 179 (150-450) k/uL Neutrophils % 76 % Lymphocytes % 16 % Monocytes % 5 % Eosinophils % 2 % Basophils % 1 % Neutrophils # 10.0 H (1.3-7.7) k/uL Lymphocytes # 2.1 (1.0-4.8) k/uL Monocytes # 0.6 (0-1.0) k/uL Eosinophils # 0.2 (0-0.7) k/uL Basophils # 0.1 (0-0.2) k/uL Hypochromasia Slight Macrocytosis Slight PT 9.6 (9.0-12.0) sec INR 0.9 (<1.2) APTT 19.7 L (22.0-30.0) sec Sodium 133 L (137-145) mmol/L Potassium 6.7 H* (3.5-5.1) mmol/L Chloride 95 L (98-107) mmol/L Carbon Dioxide 28 (22-30) mmol/L Anion Gap 10 mmol/L BUN 122 H* (7-17) mg/dL Creatinine 5.60 H (0.52-1.04) mg/dL Est GFR (CKD-EPI)AfAm 8 (>60 ml/min/1.73 sqM) Est GFR (CKD-EPI)NonAf 7 (>60 ml/min/1.73 sqM) Glucose 113 H (74-99) mg/dL Plasma Lactic Acid Toy (0.7-2.0) mmol/L Calcium 8.7 (8.4-10.2) mg/dL Magnesium 2.1 (1.6-2.3) mg/dL Total Bilirubin 0.3 (0.2-1.3) mg/dL AST 14 (14-36) U/L ALT 15 (4-34) U/L Alkaline Phosphatase 45 (38-126) U/L Troponin I (0.000-0.034) ng/mL Total Protein 5.1 L (6.3-8.2) g/dL Albumin 3.1 L (3.5-5.0) g/dL TSH 10.000 H (0.465-4.680) mIU/L Free T4 1.16 (0.78-2.19) ng/dL Free T3 pg/mL 2.8 (2.8-5.3) pg/ml 04/09/19 04/09/19 Range/Units 12:40 12:40 WBC (3.8-10.6) k/uL RBC (3.80-5.40) m/uL Hgb (11.4-16.0) gm/dL Hct (34.0-46.0) % MCV (80.0-100.0) fL MCH (25.0-35.0) pg MCHC (31.0-37.0) g/dL RDW (11.5-15.5) % Plt Count (150-450) k/uL Neutrophils % % Lymphocytes % % Monocytes % % Eosinophils % % Basophils % % Neutrophils # (1.3-7.7) k/uL Lymphocytes # (1.0-4.8) k/uL Monocytes # (0-1.0) k/uL Eosinophils # (0-0.7) k/uL Basophils # (0-0.2) k/uL Hypochromasia Macrocytosis PT (9.0-12.0) sec INR (<1.2) APTT (22.0-30.0) sec Sodium (137-145) mmol/L Potassium (3.5-5.1) mmol/L Chloride (98-107) mmol/L Carbon Dioxide (22-30) mmol/L Anion Gap mmol/L BUN (7-17) mg/dL Creatinine (0.52-1.04) mg/dL Est GFR (CKD-EPI)AfAm (>60 ml/min/1.73 sqM) Est GFR (CKD-EPI)NonAf (>60 ml/min/1.73 sqM) Glucose (74-99) mg/dL Plasma Lactic Acid Toy 1.3 (0.7-2.0) mmol/L Calcium (8.4-10.2) mg/dL Magnesium (1.6-2.3) mg/dL Total Bilirubin (0.2-1.3) mg/dL AST (14-36) U/L ALT (4-34) U/L Alkaline Phosphatase (38-126) U/L Troponin I 0.021 (0.000-0.034) ng/mL Total Protein (6.3-8.2) g/dL Albumin (3.5-5.0) g/dL TSH (0.465-4.680) mIU/L Free T4 (0.78-2.19) ng/dL Free T3 pg/mL (2.8-5.3) pg/ml Disposition Clinical Impression: Hyperkalemia, Bradycardia Disposition: ADMITTED IP TO THIS [facility] Condition: Critical Procedures - [place] Protocol (Time Out) Procedure Performed:: central line placement Nurse: Remedios Bocanegra Patient Identification (2 identifiers required): Chart, Arm Band, Name, Bi rthdate Patient/Legal Habilitation Assistant has Confirmed: Identity, Procedure, Consent - Sepsis Sepsis Focused Exam #1 Time Sepsis Criteria Met: 16:20 Sepsis Focused Exam Date: 04/09/19 Sepsis Focused Exam Time: 16:24 Sepsis Focused Exam Complete: Yes Vital Signs & RN Notes Reviewed: Yes Capillary Refill: < 2 Seconds: Fingers, Toes Peripheral Pulses: Weak: Radial (R), Radial (L) Skin Color: Normal for Patient Respiratory Exam: normal lung sounds Cardiovascular Exam: bradycardia
[2019-04-09] MEDS ORDERED: LEVOFLOXACIN 750MG-D5W PMX 750 MG in DEXTROSE/WATER 1 150ML.BAG IVPB STA (16:26)
[2019-04-09] MEDS ORDERED: VANCOMYCIN IV PER PHARMACY 1 EACH MISC MISCELLANE PRN (16:26)
[2019-04-09 16:55] LABS: Glucose,Whole Blood 111 mg/dL (75-99)
[2019-04-09] MEDS: SODIUM CHLORIDE 0.9% 1,000 ML IV SCH (17:00)
[2019-04-09] MEDS ORDERED: VANCOMYCIN 2,250 MG in SODIUM CHLORIDE 0.9% 500 ML 500 ML IVPB ONE (18:00)
[2019-04-09 19:20] LABS: Potassium 7.2 mmol/L (3.5-5.1)
[2019-04-09] MEDS ORDERED: DEXTROSE 10 % IN WATER 250 ML IV STA (19:40)
[2019-04-09] MEDS ORDERED: INSULIN DETEMIR (LEVEMIR) 100 UNIT/ML SYR SQ SCH (21:00)
[2019-04-09] MEDS: BUDESONIDE 1 MG/2 ML NEBU INHALATION SCH (21:02)
[2019-04-09] MEDS ORDERED: HEPARIN SODIUM 1,000 UN/ML (10ML VL) ONE (22:00)
[2019-04-09] MEDS ORDERED: LIDOCAINE 1% INJ 10MG/ML (20 ML MDV) ONE (22:00)
[2019-04-09] MEDS: ATORVASTATIN 40 MG TAB PO SCH (23:27)
[2019-04-09] MEDS: HEPARIN SODIUM,PORCINE 5,000 UNIT/ML 1 ML VIAL SQ SCH (23:27)
[2019-04-09] MEDS: CHOLECALCIFEROL 1,000 UNIT TAB PO SCH (23:27)
[2019-04-09] MEDS: ARIPiprazole 5 MG TAB PO SCH (23:27)
[2019-04-09 23:28] LABS: Glucose,Whole Blood 131 mg/dL (75-99)
[2019-04-09] MEDS: INSULIN DETEMIR (LEVEMIR) 100 UNIT/ML SYR SQ SCH (23:28)
[2019-04-09] MEDS: MONTELUKAST 10 MG TAB PO SCH (23:28)
[2019-04-09] MEDS: GABAPENTIN 100 MG CAP PO SCH (23:28)
[2019-04-10] MEDS: SODIUM CHLORIDE 0.9% 1,000 ML IV SCH ×3 (04:33→12:40)
[2019-04-10] MEDS: ONDANSETRON 4 MG/2 ML VIAL IVP PRN ×2 (04:33→10:39)
[2019-04-10 04:41] LABS: Basophils # (A) 0.2 k/uL (0-0.2); Basophils % (A) 2 %; Eosinophils # (A) 0.3 k/uL (0-0.7); Eosinophils % (A) 2 %; HCT 32.5 % (34.0-46.0); HGB 10.2 gm/dL (11.4-16.0); Lymphocytes # (A) 1.1 k/uL (1.0-4.8); Lymphocytes % (A) 7 %; MCH 31.9 pg (25.0-35.0); MCHC 31.4 g/dL (31.0-37.0); MCV 101.5 fL (80.0-100.0); Macrocytosis Slight; Mean Platelet Volume 7.7; Monocytes # (A) 0.8 k/uL (0-1.0); Monocytes % (A) 5 %; Neutrophils # (A) 13.7 k/uL (1.3-7.7); Neutrophils % (A) 84 %; Platelet Count 178 k/uL (150-450); RDW 14.6 % (11.5-15.5); WBC 16.4 k/uL (3.8-10.6)
[2019-04-10 05:11] LABS: Calcium 8.4 mg/dL (8.4-10.2); Magnesium 1.8 mg/dL (1.6-2.3); Phosphorus 5.1 mg/dL (2.5-4.5); Potassium 5.7 mmol/L (3.5-5.1)
[2019-04-10 05:27] LABS: T4, Free (Free Thyroxine) 1.28 ng/dL (0.78-2.19)
--- NOTE | 2019-04-10 06:04 | PCN ---
PROCEDURE NOTE PREOPERATIVE DIAGNOSIS: Acute on chronic renal failure. PROCEDURE: Ultrasound-guided dialysis catheter placement in the left femoral approach. DESCRIPTION OF PROCEDURE: The patient was seen in the intensive care unit. Left groin was prepped and drapes were applied in the usual sterile manner. Ultrasound-guided micropuncture introduced in the left femoral vein. Micropuncture guide was passed and 4-Czech dilator on top of the guidewire. After that, we passed a regular guidewire without any resistance. A dilator was advanced and then we passed as a triple-lumen dialysis catheter on top of the guidewire. Good venous return noted. Flushed with heparin saline and hep-locked and secured with 3-0 nylon. Dressing applied. Patient tolerated the procedure well. MMODL / IJN: [id number] /
[2019-04-10] MEDS: GABAPENTIN 100 MG CAP PO SCH ×2 (06:13→21:34)
[2019-04-10 07:04] LABS: Glucose,Whole Blood 125 mg/dL (75-99)
[2019-04-10] MEDS: BUDESONIDE 1 MG/2 ML NEBU INHALATION SCH ×2 (07:13→20:30)
--- NOTE | 2019-04-10 08:36 | XR ---
EXAMINATION TYPE: XR chest 1V DATE OF EXAM: 04/10/2019 COMPARISON: Prior chest x-ray 04/09/2019 HISTORY: Abnormal chest x-ray, dysrhythmia, possible congestive heart failure TECHNIQUE: Single frontal view of the chest is obtained. FINDINGS: Patient is rotated. Heart is likely enlarged. There is prominence of central pulmonary vas cularity. No evident pneumothorax or sizable pleural effusion. Suspect some basilar increased density in the retrocardiac region. The aorta is dense. IMPRESSION: Borderline cardiac size, correlate for possible pulmonary artery hypertension. Probable subsegmental basilar atelectatic change, possible pulmonary venous hypertension and early interstitia l edema, follow-up recommended.
[2019-04-10] MEDS ORDERED: MAGNESIUM SULFATE-D5W PMX 1 GM in DEXTROSE/WATER 1 100ML.BAG IVPB ONE (08:37)
[2019-04-10] MEDS ORDERED: PANTOPRAZOLE 40 MG/10 ML VIAL IV SCH (09:00)
[2019-04-10] MEDS: ASPIRIN 81 MG PO SCH (09:10)
[2019-04-10] MEDS: HEPARIN SODIUM,PORCINE 5,000 UNIT/ML 1 ML VIAL SQ SCH ×2 (09:11→20:22)
[2019-04-10] MEDS: FERROUS SULFATE 325 MG TAB PO SCH (09:11)
[2019-04-10] MEDS: CLOPIDOGREL 75 MG TAB PO SCH (09:11)
--- NOTE | 2019-04-10 09:19 | P.NPCON ---
History of Present Illness - Reason for Consult acute renal failure, hyperkalemia - History of Present Illness Reason for consultation: Acute kidney injury and hyperkalemia History of present illness: Patient is a 74-year-old female seen in renal consultation for acute kidney injury and hyperkalemia. Patient's baseline creatinine is near 1. It was elevated at 5.6 this admission. Patient's potassium was also elevated at 6.7 which was medically treated. The repeat potassium level came back even higher at 7.2 and she subsequently underwent emergent hemodialysis last night. Potassium level this morning is 5.7. Patient was sent to the hospital from an extended care facility due to low blood pressure. Patient's blood pressure was in the systolic 60s to 70s and heart rate was in the 30s. Patient subsequently received 3 L of normal saline bolus and was also started on maintenance IV fluids. Additionally she is also receiving Levophed and dopamine at this time. Her urine output is about 40-50 mL an hour. Patient is unsure of the meds she is taking. However I don't see any NSAIDs and her home medications. Patient has long-standing history of diabetes mellitus and is maintained on insulin. She also states she was having chest pains over the last few days but now resolved. Patient states the urine output was low the past few days and oral intake was poor. She denies any hematuria or dysuria. Denies personal or family history of kidney disease. Vital signs are stable. General: The patient appeared well nourished and normally developed. HEENT: Head exam is unremarkable. Neck is without jugular venous distension. LUNGS: Lungs are clear to auscultation and percussion. Breath sounds decreased. HEART: Rate and Rhythm are regular. First and second heart sounds normal. No mur murs, rubs or gallops. ABDOMEN: Abdominal exam reveals normal bowel sounds. Nontender. Obese. EXTREMITITES: 1+ edema. Past Medical History Past Medical History: Asthma, Coronary Artery Disease (CAD), Cancer, Chest Pain / Angina, Heart Failure, CVA/TIA, Diabetes Mellitus, GERD/Reflux, Hyperlipidemia, Hypertension, Memory Impairment, Pneumonia, Sleep Apnea/ CPAP/BIPAP, Thyroid Disorder Additional Past Medical History / Comment(s): IDDM, unable to tolerate C-PAP, hx. 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 , states unable to stand-needs yadira lift to transfer., patient states she has constipation with "pain in bowel" and nausea., resides at [facility] on the [facility]. History of Any Multi-Drug Resistant Organisms: ESBL, MRSA Date of last positivie culture/infection: 06/05/18 ESBL/ MRSA 04/02/11 MDRO Source:: ESBL URINE / MRSA LEG, CHEST, ANKLE Past Surgical History: Bladder Surgery, Cholecystectomy, Heart Catheterization, Heart Catheterization With Stent, Hysterectomy Additional Past Surgical History / Comment(s): Angioplasty with multiple stents- pt states last stent mar 2018., partial parathyroidectomy, cataracts , I and D of L chest wall abscess and L ankle wound, bladder surgery with implant of stimulator system 02/2010, EGD/colonoscoy, Pain procedures. Past Anesthesia/Blood Transfusion Reactions: No Reported Reaction, Motion Sickness Additional Past Anesthesia/Blood Transfusion Reaction / Comment(s): Pt states she has received blood in the past without reaction. Date of Last Stent Placement:: 06/29/16 Past Psychological History: Anxiety, Depression Smoking Status: Never smoker Past Alcohol Use History: None Reported Past Drug Use History: None Reported - Past Family History Brother(s) Family Medical History: Coronary Artery Disease (CAD) Father Family Medical History: Cancer, Coronary Artery Disease (CAD) Additional Family Medical History / Comment(s): Father had prostate cancer. Mother Family Medical History: Asthma, COPD Medications and Allergies Home Medications Medication Instructions Recorded Confirmed Type Nitroglycerin Sl Tabs [Nitrostat] 0.4 mg SUBLINGUAL Q5M PRN #30 tab 12/23/16 04/09/19 Rx Atorvastatin [Lipitor] 40 mg PO HS@2100 01/30/17 04/09/19 History Aspirin EC [Ecotrin Low Dose] 81 mg PO DAILY@0900 12/14/17 04/09/19 History Acetaminophen [Tylenol] 650 mg PO Q6H PRN 01/16/18 04/09/19 History Albuterol Sulfate [Proair Hfa] 2 puff INHALATION RT-Q6H PRN 06/04/18 04/09/19 History Bisacodyl [Dulcolax] 10 mg RECTAL DAILY PRN supp 06/08/18 04/09/19 Rx Montelukast Sodium [Singulair] 10 mg PO HS@209907/02/18 04/09/19 History ARIPiprazole [Abilify] 5 mg PO HS@209909/04/18 04/09/19 History Bismuth Subsalicylate 524 mg PO Q4H PRN 09/04/18 04/09/19 History [Pepto-Bismol] Ferrous Sulfate [Iron (65 MG 325 mg PO DAILY@89909/04/18 04/09/19 History Elemental)] Insulin Lispro [humaLOG Kwikpen] See Protocol SQ ACHS 09/04/18 04/09/19 History Isosorbide Mononitrate ER [Imdur] 30 mg PO BID 09/04/18 04/09/19 History Lubiprostone [Amitiza] 24 mcg PO BID@0900,2100 09/04/18 04/09/19 History Pantoprazole [Protonix] 40 mg PO DAILY@89909/04/18 04/09/19 History Lisinopril [Zestril] 10 mg PO DAILY@89912/25/18 04/09/19 History Metoprolol Tartrate [Lopressor] 25 mg PO TID@0600,1400,2200 12/25/18 04/09/19 History Citalopram Hydrobromide [CeleXA] 10 mg PO DAILY@0901/10/19 04/09/19 History Citalopram Hydrobromide [CeleXA] 20 mg PO DAILY@89901/10/19 04/09/19 History Ipratropium-Albuterol Nebulize 3 ml INHALATION RT-Q4H PRN 01/10/19 04/09/19 History [Duoneb 0.5 mg-3 mg/3 ml Soln] Loperamide HCl [Imodium A-D] 4 mg PO QID PRN 01/10/19 04/09/19 History Magnesium Hydroxide [Milk of 2,400 mg PO DAILY PRN 01/10/19 04/09/19 History Magnesia] Cholecalciferol [Vitamin D3 (25 2,000 unit PO HS@209901/11/19 04/09/19 History Mcg = 1000 Iu)] Clopidogrel [Plavix] 75 mg PO DAILY@0900 01/11/19 04/09/19 History Furosemide [Lasix] 40 mg PO BID@0600,1400 01/11/19 04/09/19 History Ipratropium-Albuterol Nebulize 3 ml INHALATION RT-Q8H 01/11/19 04/09/19 History [Duoneb 0.5 mg-3 mg/3 ml Soln] Budesonide [Pulmicort] 1 mg INHALATION RT-BID@0900,2100 03/14/19 04/09/19 History Calcium Carbonate [Tums] 1,000 mg PO Q6H PRN 03/14/19 04/09/19 History Insulin Detemir [Levemir Flextouch] 50 units SQ HS@2100 03/14/19 04/09/19 History Gabapentin [Neurontin] 100 mg PO BID@0600,2200 #6 03/18/19 04/09/19 Rx clonazePAM [KlonoPIN] 1 mg PO TID@0600,1400,2200 #9 tab 03/18/19 04/09/19 Rx predniSONE 10 mg PO Q48H #0 03/18/19 04/09/19 Rx traMADol HCl [Ultram] 100 mg PO TID@0600,1400,2200 #18 03/18/19 04/09/19 Rx Diflorasone Diacetate [Psorcon] 1 applic TOPICAL DAILY PRN 04/09/19 04/09/19 History Diflorasone Diacetate [Psorcon] 1 applic TOPICAL HS 04/09/19 04/09/19 History INSULIN LISPRO (HumaLOG) [humaLOG] 5 unit SQ AC-TID 04/09/19 04/09/19 History Levofloxacin [Levaquin] 500 mg PO DAILY 04/09/19 04/09/19 History Na Phos,M-B/Na Phos,Di-Ba [Fleet 133 ml RECTAL DAILY PRN 04/09/19 04/09/19 History Adult] Allergies Allergy/AdvReac Type Severity Reaction Status Date / Time adhesive Allergy Mild Rash/Hives, Verified 04/09/19 13:23 W/ TAPES, CAN USE PAPER TAPE latex Allergy Mild Rash/Hives- Verified 04/09/19 13:23 Sores codeine Allergy Anaphylaxis Verified 04/09/19 13:23 Penicillins Allergy Anaphylaxis Verified 04/09/19 13:23 propoxyphene napsylate Allergy Anaphylaxis Verified 04/09/19 13:23 [From Darvocet-N 100] tuberculin, purified protein Allergy Rash/Hives Verified 04/09/19 13:23 deriva [tuberculin,purif.prot.deriv.] morphine AdvReac Hallucinations, Verified 04/09/19 13:23 anxious Physical Exam Vitals: Vital Signs Temp Pulse Pulse Pulse Resp BP BP 04/10/19 08:17 97.6 F 61 18 111/42 04/10/19 07:21 68 04/10/19 07:13 67 04/10/19 07:00 67 21 111/70 04/10/19 06:30 66 22 113/79 04/10/19 06:00 66 20 96/31 04/10/19 05:30 64 17 112/42 04/10/19 05:00 66 17 98/41 04/10/19 04:30 68 21 92/44 04/10/19 04:00 97.7 F 64 22 102/36 04/10/19 03:30 67 18 123/49 04/10/19 03:00 63 18 120/79 04/10/19 02:30 63 17 105/40 04/10/19 02:00 62 18 130/51 04/10/19 01:30 61 17 115/38 04/10/19 01:00 64 18 112/38 04/10/19 00:30 62 16 108/40 04/10/19 00:00 97.8 F 62 16 100/56 04/09/19 23:30 61 15 111/42 04/09/19 23:00 61 17 109/50 04/09/19 22:30 61 17 122/63 04/09/19 22:15 65 22 125/99 04/09/19 21:45 65 18 95/66 04/09/19 21:30 64 21 131/82 04/09/19 21:15 56 L 17 113/68 04/09/19 21:07 58 L 04/09/19 21:03 56 L 04/09/19 21:00 57 L 19 110/72 04/09/19 20:45 56 L 20 115/49 04/09/19 20:30 56 L 17 89/68 04/09/19 20:15 56 L 13 111/46 04/09/19 20:00 97.6 F 56 L 17 105/58 04/09/19 19:45 57 L 21 100/35 04/09/19 19:30 58 L 17 113/80 04/09/19 19:15 57 L 18 101/47 04/09/19 19:00 60 19 134/101 04/09/19 18:45 60 16 127/51 04/09/19 18:30 62 17 141/58 04/09/19 18:15 65 14 135/112 04/09/19 18:00 64 10 L 136/82 04/09/19 17:45 63 16 103/88 04/09/19 17:30 63 14 75/51 04/09/19 17:15 61 15 111/101 04/09/19 17:00 97.5 F L 62 18 100/82 04/09/19 16:22 97.3 F L 56 L 22 97/81 04/09/19 16:15 56 L 22 97/81 04/09/19 15:24 57 L 18 88/21 04/09/19 15:18 57 L 20 56/33 04/09/19 14:27 57 L 20 112/63 04/09/19 14:24 59 L 04/09/19 14:14 57 L 04/09/19 14:12 57 L 18 98/43 04/09/19 13:36 56 L 22 76/61 04/09/19 13:02 39 L 16 97/77 04/09/19 12:49 35 L 22 04/09/19 12:36 39 L 18 130/117 04/09/19 12:31 97.3 F L 41 L 16 130/117 Pulse Ox 04/10/19 08:17 04/10/19 07:21 04/10/19 07:13 04/10/19 07:00 99 04/10/19 06:30 99 04/10/19 06:00 99 04/10/19 05:30 100 04/10/19 05:00 98 04/10/19 04:30 98 04/10/19 04:00 99 04/10/19 03:30 96 04/10/19 03:00 99 04/10/19 02:30 97 04/10/19 02:00 99 04/10/19 01:30 95 04/10/19 01:00 99 04/10/19 00:30 100 04/10/19 00:00 98 04/09/19 23:30 99 04/09/19 23:00 98 04/09/19 22:30 98 04/09/19 22:15 96 04/09/19 21:45 99 04/09/19 21:30 96 04/09/19 21:15 96 04/09/19 21:07 04/09/19 21:03 100 04/09/19 21:00 96 04/09/19 20:45 95 04/09/19 20:30 94 L 04/09/19 20:15 85 L 04/09/19 20:00 96 04/09/19 19:45 96 04/09/19 19:30 96 04/09/19 19:15 93 L 04/09/19 19:00 95 04/09/19 18:45 97 04/09/19 18:30 92 L 04/09/19 18:15 94 L 04/09/19 18:00 95 04/09/19 17:45 97 04/09/19 17:30 99 04/09/19 17:15 94 L 04/09/19 17:00 95 04/09/19 16:22 96 04/09/19 16:15 96 04/09/19 15:24 94 L 04/09/19 15:18 93 L 04/09/19 14:27 94 L 04/09/19 14:24 04/09/19 14:14 04/09/19 14:12 91 L 04/09/19 13:36 92 L 04/09/19 13:02 95 04/09/19 12:49 04/09/19 12:36 96 04/09/19 12:31 95 Intake and Output 04/09/19 04/10/19 04/10/19 22:59 06:59 14:59 Intake Total 8915.775 6470 190.53 Output Total 375 358 55 Balance 1000.178 852 135.53 Intake: IV 1358 1210 145 Calcium Gluconate 1 gm In 150 50 Sodium Chloride 0.9% 100 ml @ 100 mls/hr IVPB ONCE ONE Rx#:[id number] DOPamine DRIP 800 mg In 60 120 15 Dextrose/Water 1 250ml. bag @ 5 MCG/KG/MIN 14.926 mls/hr IV .[id number] ONE Rx#:[id number] Dextrose 10 % in Water 250 250 ml @ 999 mls/hr IV ONCE STA Rx#:[id number] Levofloxacin 500Mg-D5w 100 Pmx 500 mg In Dextrose/ Water 1 100ml.bag @ 100 mls/hr IVPB Q48H [facility] Rx#: [id number] Sodium Chloride 0.9% 1, 130 1040 130 000 ml @ 130 mls/hr IV . Q7H42M [facility] Rx#:[id number] Vancomycin 2,250 mg In 668 Sodium Chloride 0.9% 500 ml 500 ml @ 167 mls/hr IVPB ONCE ONE Rx#: [id number] Intake, IV Titration 17.178 45.53 Amount Norepinephrine 32 mg In 17.178 45.53 Sodium Chloride 0.9% 218 ml @ 0.05 MCG/KG/MIN 3. 732 mls/hr IV .Q24H [facility] Rx#:[id number] Output: Urine 325 358 55 Emesis 50 Hemodialysis 0 Other: Voiding Method Indwelling Catheter Indwelling Catheter Results - Lab Results Most recent lab results Calcium 8.4 mg/dL (8.4-10.2) 04/10/19 04:20 Phosphorus 5.1 mg/dL (2.5-4.5) H 04/10/19 04:20 Magnesium 1.8 mg/dL (1.6-2.3) 04/10/19 04:20 04/10/19 04:20 04/10/19 04:20 Assessment and Plan Plan: Assessment: 1. Acute kidney injury secondary to ATN secondary to hypotension and bradycardia. Creatinine 5.6 at admission. Baseline near 1. No proteinuria on UA. Kidney ultrasound revealed small left kidney without any hydronephrosis. 2. Hyperkalemia secondary to acute kidney injury and further worsened with the use of lisinopril. Improved postdialysis. 3. Hyponatremia secondary to acute kidney injury. 4. Insulin-dependent diabetes mellitus. 5. Hypotension maintained on Levophed and dopamine. Concern for sepsis from UTI. 6. Bradycardia currently on dopamine. Cardiology consulted. Heart rate currently in the 60s. Plan: I will decrease rate of normal saline to 75 mL an hour. Follow-up cultures. Wean vasopressors. Hemodialysis today. Continue to monitor renal function and urine output closely. Continue to assess on daily basis for need for renal replacement therapy. Thank you for the consultation. I will continue to follow the patient with you during her hospital stay.
[2019-04-10] MEDS ORDERED: DEXTROSE/WATER 1 250ML.BAG with DOPamine DRIP 800 MG IV SCH (09:30)
[2019-04-10] MEDS: CITALOPRAM HYDROBROMIDE 20 MG TAB PO SCH (09:53)
[2019-04-10] MEDS: CITALOPRAM HYDROBROMIDE 10 MG TAB PO SCH (09:53)
--- NOTE | 2019-04-10 09:55 | CONS ---
DATE OF CONSULTATION: 04/10/2019 This patient came to the ICU with history of acute kidney injury, history of hyperkalemia and high BUN and creatinine. I was called in for emergency dialysis catheter placement. PAST MEDICAL HISTORY: Patient has history of coronary artery disease, history of cancer, history of angina, history of diabetes mellitus, history of hyperlipidemia, hypertension, obesity, sleep apnea. Patient was seen in her room. The patient has a subtle obesity, she has had some shortness of breath, neck is supple. Chest has crackles, bilateral. Abdomen is protuberant. No peritoneal signs noted. Femorals are 1+. PLAN: Placement of the dialysis catheter. Risks and complication discussed, bleeding, infection, thrombosis. MMODL / IJN: [id number] / [facility]
[2019-04-10 10:19] LABS: Creatine Kinase MB 1.1 ng/mL (0.0-2.4); Troponin I 0.025 ng/mL (0.000-0.034)
--- NOTE | 2019-04-10 10:25 | PN ---
PROGRESS NOTE This is a 74-year-old lady who came to the emergency room with bradycardia and hypotension was in junctional bradycardia secondary to severe hyperkalemia. She had been dialyzed yesterday following which the potassium level had come down. This morning she is in normal sinus rhythm and I am going to stop the dopamine that she is. PHYSICAL EXAMINATION: On exam, comfortable at rest. Heart rate is 70 beats per minute. Blood pressure is 130/72, respiratory rate is 18. Chest exam reveals good air entry bilaterally without any crackles or rhonchi. Heart exam reveals first and second heart sounds. No gallop. Exam of extremities reveals bilateral 1+ edema. LABS: Lab show hemoglobin of 10.2, potassium of 5.7, creatinine of 3.4. ASSESSMENT: 1. Acute on chronic renal failure. 2. Symptomatic bradycardia secondary to severe hyperkalemia. 3. Coronary artery disease. 4. Morbid obesity. PLAN: I will stop the beta blockers on her, stop the dopamine at this stage and watch her in ICU. MMODL / LILLIANN: [id number] /
[2019-04-10] MEDS ORDERED: TRIMETHOBENZAMIDE 300 MG CAP PO PRN (10:31)
[2019-04-10] MEDS ORDERED: traMADol 50 MG TAB PO PRN (10:34)
[2019-04-10] MEDS ORDERED: LIDOCAINE 5% PATCH TOPICAL SCH (10:45)
[2019-04-10 10:53] LABS: Glucose,Whole Blood 137 mg/dL (75-99)
[2019-04-10] MEDS ORDERED: VANCOMYCIN 2,250 MG in SODIUM CHLORIDE 0.9% 500 ML 500 ML IVPB ONE (11:00)
[2019-04-10] MEDS ORDERED: LIDOCAINE 2% GEL 30 ML TUBE TOPICAL PRN (11:04)
--- NOTE | 2019-04-10 11:20 | P.PN ---
Subjective This is a pleasant 74 years old female with past medical history of heart failure, hypertension, hyperlipidemia, diabetes mellitus, coronary artery syndrome status post stent placement last one was last year on 03/2018, partial parathyroidectomy, chronic low back pain, scoliosis, urine incontinence, irritable bowel syndrome, peptic ulcer disease, hiatal hernia, TIA, hemorrhoids, cervical cancer status post hysterectomy. Patient was sent from the [facility] for shortness of breath, patient states she could not breathe for the last 2-3 days, patient also complaining of from right mid abdominal pain/right flank pain, no chest pain no nausea vomiting. Patient felt tired and she did not finish the encounter On admission patient was tachycardic with heart rate were 39-57, blood pressure was 76/61 and she's getting 2 L of normal saline bolus. 04/10/2019 Patient was admitted to the ICU for suspension of septic shock, she was started on Levaquin and IV vancomycin, currently she remains in the ICU fully awake and oriented however she is needing pressors with Levophed at 0.1 per hour. Her blood pressure is better 104/34, heart rate 67, she is saturating 93% and patient is been afebrile. Labs showing worsening leukocytosis of 16.4 K. Sodium 133, potassium improved to 5.7, creatinine, down to 3.4, glucose is controlled, TSH came back to normal. Lactic acid is normal. Urine cultures pending. Chest x-ray showing possible early interstitial edema and pulmonary hypertension. Patient was complaining of from some chest pain, same right sided abdominal pain and her usual back pain. Home dose of Ultram and topical pain management was restarted She is on normal saline at 75 mL/h. Patient is followed closely by several consultants including cardiology, nephrology and critical care team Review of systems CONSTITUTIONAL: No fever, no malaise, no fatigue. HEENT: No recent visual problems or hearing problems. Denied any sore throat. CARDIOVASCULAR: No orthopnea, PND, no palpitations, no syncope. PULMONARY: no hemoptysis. GASTROINTESTINAL: No diarrhea, no nausea, no vomiting, no abdominal pain. Normoactive bowel sounds. NEUROLOGICAL: No headaches, no weakness, no numbness. HEMATOLOGICAL: Denies any bleeding or petechiae. GENITOURINARY: Denies any burning micturition, frequency, or urgency. MUSCULOSKELETAL/RHEUMATOLOGICAL: Denies any joint pain, swelling, or any muscle pain. ENDOCRINE: Denies any polyuria or polydipsia. Active Medications Generic Name Dose Route Start Last Admin Trade Name Freq PRN Reason Stop Dose Admin Acetaminophen 650 mg 04/10/19 10:35 Tylenol Tab PO Q6HR PRN Fever and/ or Pain Aripiprazole 5 mg 04/09/19 21:00 04/09/19 23:27 Abilify PO 5 mg HS@2100 JAVIER Administration Aspirin 81 mg 04/10/19 09:00 04/10/19 09:10 Aspirin PO 81 mg DAILY@09 AJVIER Administration Atorvastatin Calcium 40 mg 04/09/19 21:00 04/09/19 23:27 Lipitor PO 40 mg HS@2100 JAVIER Administration Bisacodyl 10 mg 04/09/19 14:06 Dulcolax RECTAL DAILY PRN Constipation Budesonide 1 mg 04/09/19 21:00 04/10/19 07:13 Pulmicort INHALATION 1 mg RT-BID@899,2099 JAVIER Administration Calcium Carbonate/Glycine 1,000 mg 04/09/19 14:06 Tums PO Q6H PRN GI Upset Cholecalciferol 2,000 unit 04/09/19 21:00 04/09/19 23:27 Vitamin D3 (25 Mcg = 1000 Iu) PO 2,000 unit HS@2100 JAVIER Administration Citalopram Hydrobromide 10 mg 04/10/19 09:00 04/10/19 09:53 Celexa PO 10 mg DAILY@09 JAVIER Administration Citalopram Hydrobromide 20 mg 04/10/19 09:00 04/10/19 09:53 Celexa PO 20 mg DAILY@09 JAVIER Administration Clopidogrel Bisulfate 75 mg 04/10/19 09:00 04/10/19 09:11 Plavix PO 75 mg DAILY@899 JAVIER Administration Ferrous Sulfate 325 mg 04/10/19 09:00 04/10/19 09:11 Feosol PO 325 mg DAILY@899 JAVIER Administration Gabapentin 100 mg 04/09/19 22:00 04/10/19 06:13 Neurontin PO 100 mg BID@0600,2200 JAVIER Administration Heparin Sodium (Porcine) 5,000 unit 04/09/19 21:00 04/10/19 09:11 Heparin SQ 5,000 unit Q12HR JAVIER Administration Sodium Chloride 1,000 mls @ 75 mls/hr 04/09/19 14:00 04/10/19 09:10 Saline 0.9% IV 100 mls/hr .[id number] JAVIER Administration Norepinephrine Bitartrate 32 250 mls @ 3.732 mls/hr 04/09/19 15:45 04/10/19 10:53 mg/ Sodium Chloride IV 0.08 mcg/kg/min .Q24H JAVIER 5.97 mls/hr Titration Protocol 0.05 MCG/KG/MIN Levofloxacin 500 mg/ IV 100 mls @ 100 mls/hr 04/11/19 09:00 Solution IVPB Q48H JAVIER Vancomycin HCl 2,250 mg/ 500 mls @ 167 mls/hr 04/10/19 11:00 Sodium Chloride IVPB 04/10/19 13:59 ONCE ONE Insulin Aspart 0 unit 04/10/19 12:30 Novolog SQ ACHS JAVIER Protocol Insulin Detemir 25 unit 04/09/19 21:00 04/09/19 23:28 Levemir SQ 25 unit HS@2100 JAVIER Administration Lidocaine HCl 1 applic 04/10/19 11:04 Xylocaine Jelly 2% TOPICAL TID PRN Back Pain Miscellaneous Information 1 each 04/09/19 16:26 Pharmacy To Dose Iv Vancomycin MISCELLANE DIRECTED PRN Per Protocol Protocol Montelukast Sodium 10 mg 04/09/19 21:00 04/09/19 23:28 Singulair PO 10 mg HS@2100 JAVIER Administration Naloxone HCl 0.2 mg 04/09/19 13:51 Narcan IV Q2M PRN Opioid Reversal Ondansetron HCl 4 mg 04/09/19 22:14 04/10/19 10:39 Zofran IVP 4 mg Q6HR PRN Administration Nausea And Vomiting Pantoprazole Sodium 40 mg 04/10/19 09:00 04/10/19 09:11 Protonix IV 40 mg DAILY JAVIER Administration Tramadol HCl 100 mg 04/10/19 10:34 Ultram PO TID PRN Moderate to Severe Pain Trimethobenzamide HCl 300 mg 04/10/19 10:31 Tigan PO TID PRN nausea Objective - Vital Signs Vital signs: Vital Signs Temp 97.6 F 04/10/19 08:17 Pulse 67 04/10/19 10:00 Resp 14 04/10/19 10:00 BP 104/34 04/10/19 10:00 Pulse Ox 93 L 04/10/19 10:00 Intake & Output 04/09/19 04/10/19 04/10/19 18:59 06:59 18:59 Intake Total 395.303 3969.558 799.648 Output Total 125 608 215 Balance 336.251 7846.558 584.648 Weight 166 kg Intake: IV 549 2019 505 Calcium Gluconate 1 gm In 100 100 Sodium Chloride 0.9% 100 ml @ 100 mls/hr IVPB ONCE ONE Rx#:[id number] DOPamine DRIP 800 mg In 15 165 45 Dextrose/Water 1 250ml. bag @ 5 MCG/KG/MIN 14.926 mls/hr IV .[id number] [facility] Rx#:[id number] Dextrose 10 % in Water 250 250 ml @ 999 mls/hr IV ONCE [facility] Rx#:[id number] Levofloxacin 500Mg-D5w 100 Pmx 500 mg In Dextrose/ Water 1 100ml.bag @ 100 mls/hr IVPB Q48H [facility] Rx#: [id number] Sodium Chloride 0.9% 1, 1170 460 000 ml @ 75 mls/hr IV . [id number] [facility] Rx#:[id number] Vancomycin 2,250 mg In 334 334 Sodium Chloride 0.9% 500 ml 500 ml @ 167 mls/hr IVPB ONCE ONE Rx#: [id number] Intake, IV Titration 13.620 3.558 54.648 Amount Norepinephrine 32 mg In 13.620 3.558 54.648 Sodium Chloride 0.9% 218 ml @ 0.05 MCG/KG/MIN 3. 732 mls/hr IV .Q24H [facility] Rx#:[id number] Oral 240 Output: Urine 125 558 215 Emesis 50 Hemodialysis 0 Other: Voiding Method Indwelling Catheter Indwelling Catheter Indwelling Catheter - Exam -GENERAL: The patient is alert and oriented x3, not in any acute distress . morbidly obese HEENT: Pupils are round and equally reacting to light. EOMI. No scleral icterus. No conjunctival pallor. Normocephalic, atraumatic. No pharyngeal erythema. No thyromegaly. CARDIOVASCULAR: S1 and S2 present. No murmurs, rubs, or gallops. PULMONARY: Chest is clear to auscultation, no wheezing or crackles. -ABDOMEN: Soft, nontender, mild right mid abdomen/right flank tenderness, no rebound tenderness or guarding, normoactive bowel sounds. No palpable organomegaly. MUSCULOSKELETAL: No joint swelling or deformity. EXTREMITIES: No cyanosis, clubbing, or pedal edema. NEUROLOGICAL: Gross neurological examination did not reveal any focal deficits. SKIN: No rashes. No petechiae - Labs CBC & Chem 7: 04/10/19 04:20 04/10/19 04:20 Labs: Abnormal Lab Results - Last 24 Hours (Table) 04/09/19 04/09/19 04/09/19 Range/Units 12:40 12:40 12:40 WBC 13.1 H (3.8-10.6) k/uL RBC 3.08 L (3.80-5.40) m/uL Hgb 10.0 L D (11.4-16.0) gm/dL Hct 31.8 L (34.0-46.0) % MCV 103.3 H (80.0-100.0) fL Neutrophils # 10.0 H (1.3-7.7) k/uL APTT 19.7 L (22.0-30.0) sec Sodium 133 L (137-145) mmol/L Potassium 6.7 H* (3.5-5.1) mmol/L Chloride 95 L (98-107) mmol/L BUN 122 H* (7-17) mg/dL Creatinine 5.60 H (0.52-1.04) mg/dL Glucose 113 H (74-99) mg/dL POC Glucose (mg/dL) (75-99) mg/dL Phosphorus (2.5-4.5) mg/dL Total Creatine Kinase (30-135) U/L Total Protein 5.1 L (6.3-8.2) g/dL Albumin 3.1 L (3.5-5.0) g/dL Procalcitonin (0.02-0.09) ng/mL TSH 10.000 H (0.465-4.680) mIU/L Urine Appearance (Clear) Urine Blood (Negative) Ur Leukocyte Esterase (Negative) Urine WBC (0-5) /hpf Urine WBC Clumps (None) /hpf Urine Bacteria (None) /hpf 02/04/20 02/04/20 02/04/20 Range/Units 12:40 15:15 16:53 WBC (3.8-10.6) k/uL RBC (3.80-5.40) m/uL Hgb (11.4-16.0) gm/dL Hct (34.0-46.0) % MCV (80.0-100.0) fL Neutrophils # (1.3-7.7) k/uL APTT (22.0-30.0) sec Sodium (137-145) mmol/L Potassium (3.5-5.1) mmol/L Chloride (98-107) mmol/L BUN (7-17) mg/dL Creatinine (0.52-1.04) mg/dL Glucose (74-99) mg/dL POC Glucose (mg/dL) 111 H (75-99) mg/dL Phosphorus (2.5-4.5) mg/dL Total Creatine Kinase (30-135) U/L Total Protein (6.3-8.2) g/dL Albumin (3.5-5.0) g/dL Procalcitonin 0.21 H (0.02-0.09) ng/mL TSH (0.465-4.680) mIU/L Urine Appearance Cloudy H (Clear) Urine Blood Small H (Negative) Ur Leukocyte Esterase Large H (Negative) Urine WBC 163 H (0-5) /hpf Urine WBC Clumps Many H (None) /hpf Urine Bacteria Moderate H (None) /hpf 04/09/19 04/09/19 04/09/19 Range/Units 18:35 23:27 23:55 WBC (3.8-10.6) k/uL RBC (3.80-5.40) m/uL Hgb (11.4-16.0) gm/dL Hct (34.0-46.0) % MCV (80.0-100.0) fL Neutrophils # (1.3-7.7) k/uL APTT (22.0-30.0) sec Sodium 133 L (137-145) mmol/L Potassium 7.2 H* 5.3 H (3.5-5.1) mmol/L Chloride 96 L (98-107) mmol/L BUN 125 H* (7-17) mg/dL Creatinine 5.27 H (0.52-1.04) mg/dL Glucose 119 H (74-99) mg/dL POC Glucose (mg/dL) 131 H (75-99) mg/dL Phosphorus (2.5-4.5) mg/dL Total Creatine Kinase (30-135) U/L Total Protein (6.3-8.2) g/dL Albumin (3.5-5.0) g/dL Procalcitonin (0.02-0.09) ng/mL TSH (0.465-4.680) mIU/L Urine Appearance (Clear) Urine Blood (Negative) Ur Leukocyte Esterase (Negative) Urine WBC (0-5) /hpf Urine WBC Clumps (None) /hpf Urine Bacteria (None) /hpf 04/10/19 04/10/19 04/10/19 Range/Units 04:20 04:20 07:02 WBC 16.4 H (3.8-10.6) k/uL RBC 3.20 L (3.80-5.40) m/uL Hgb 10.2 L (11.4-16.0) gm/dL Hct 32.5 L (34.0-46.0) % MCV 101.5 H (80.0-100.0) fL Neutrophils # 13.7 H (1.3-7.7) k/uL APTT (22.0-30.0) sec Sodium 133 L (137-145) mmol/L Potassium 5.7 H (3.5-5.1) mmol/L Chloride 96 L (98-107) mmol/L BUN 84 H (7-17) mg/dL Creatinine 3.49 H (0.52-1.04) mg/dL Glucose 129 H (74-99) mg/dL POC Glucose (mg/dL) 125 H (75-99) mg/dL Phosphorus 5.1 H (2.5-4.5) mg/dL Total Creatine Kinase (30-135) U/L Total Protein (6.3-8.2) g/dL Albumin (3.5-5.0) g/dL Procalcitonin (0.02-0.09) ng/mL TSH (0.465-4.680) mIU/L Urine Appearance (Clear) Urine Blood (Negative) Ur Leukocyte Esterase (Negative) Urine WBC (0-5) /hpf Urine WBC Clumps (None) /hpf Urine Bacteria (None) /hpf 04/10/19 04/10/19 Range/Units 09:30 10:52 WBC (3.8-10.6) k/uL RBC (3.80-5.40) m/uL Hgb (11.4-16.0) gm/dL Hct (34.0-46.0) % MCV (80.0-100.0) fL Neutrophils # (1.3-7.7) k/uL APTT (22.0-30.0) sec Sodium (137-145) mmol/L Potassium (3.5-5.1) mmol/L Chloride (98-107) mmol/L BUN (7-17) mg/dL Creatinine (0.52-1.04) mg/dL Glucose (74-99) mg/dL POC Glucose (mg/dL) 137 H (75-99) mg/dL Phosphorus (2.5-4.5) mg/dL Total Creatine Kinase 28 L (30-135) U/L Total Protein (6.3-8.2) g/dL Albumin (3.5-5.0) g/dL Procalcitonin (0.02-0.09) ng/mL TSH (0.465-4.680) mIU/L Urine Appearance (Clear) Urine Blood (Negative) Ur Leukocyte Esterase (Negative) Urine WBC (0-5) /hpf Urine WBC Clumps (None) /hpf Urine Bacteria (None) /hpf Microbiology - Last 24 Hours (Table) 04/09/19 15:15 Urine Culture - Preliminary Urine,Voided Assessment and Plan Assessment: Acute kidney injury, improving Hypertension, Rule out septic shock badycardia, heart rate is better Hyperkalemia, improving Diabetes mellitus Hyperlipidemia Chronic heart failure History of hypertension History of coronary artery disease status post multiple stents Partial parathyroidectomy Chronic low back pain with scoliosis Urinary incontinence Irritable bowel syndrome Peptic ulcer disease Hiatal hernia TIA Hemorrhoids Cervical cancer status post hysterectomy Plan: This is a pleasant 74 years old female who presents with acute kidney injury, hyperkalemia, hypotension and bradycardia. Continue with hydration and follow- up recommendation by cardiology, nephrology and critical care team consult Hol d blood pressure medication including lisinopril, Imdur and metoprolol. Continue with insulin and increase it to gradually. Continue with antibiotics. Pain management for her back pain Labs and medication were reviewed.. Continue same treatment. Continue with symptomatic treatment. Resume home medication. Monitor lytes and vitals. DVT and GI prophylaxis. Further recommendations of the clinical course of the patient DVT prophylaxis: Subcutaneous heparin GI Prophylaxis: Pepcid PT/OT: Pending Prognosis is guarded
[2019-04-10 12:03] LABS: Glucose,Whole Blood 134 mg/dL (75-99)
[2019-04-10] MEDS: INSULIN ASPART (NovoLOG) 100 UNIT/ML VIAL SQ SCH ×3 (12:03→20:45)
--- NOTE | 2019-04-10 12:04 | P.CNPUL ---
History of Present Illness Consult date: 04/10/19 Requesting physician: Ervin Weinstein Reason for consult: dyspnea Chief complaint: Shortness of breath History of present illness: This is a 74-year-old female with known history of multiple medical problems including diastolic congestive heart failure, hypertension, diabetes, coronary artery disease and previous stent placement, chronic low back pain, urinary incontinence, irritable bowel syndrome, cervical cancer and previous hysterectomy, patient was sent to the ER last night from the [facility] on the [place] with complaints of shortness of breath. Patient has been complaining of shortness of breath for the last 2-3 days. She was also complaining of right mid abdominal and right flank pain. She had no chest pain, no nausea no vomiting, no fever no chills no hemoptysis. Patient was feeling extremely tired and exhausted. Upon evaluation in the ER, patient was noted to be profoundly b radycardic, heart rate ranging between 40 and 60. Blood pressure on arrival was 76/61. Patient had a right femoral triple-lumen catheter placed by the ER physician, and she had fluid boluses at least 2 L were given in the form of 0.9 normal saline. Patient was placed on dopamine for her profound bradycardia, and she is presently on dopamine at 5 mcg/kg/m. Remained hypotensive, hence norepinephrine at 0.04 mcg/kg/m was added. Maintained on IV fluid at 100 mL/h, admitted to the ICU, and this consult was initiated. I evaluated the patient in the ICU, kept her on dopamine and norepinephrine, and she was seen by nephrology on consultation last night, patient underwent stat hemodialysis mostly because of her hyperkalemia and acute kidney injury. Review of Systems CONSTITUTIONAL: No fever, no chills, however the patient was complaining of profound weakness and fatigue. HEENT: No headache no blurred vision no dizziness. No sore throat. CARDIOVASCULAR: Profound weakness no chest pain no syncope. PULMONARY: no hemoptysis. No cough no wheezing no chest pain. GASTROINTESTINAL: Chronic vague flank pain on the right side. Otherwise no other symptoms. NEUROLOGICAL: No headaches, no weakness, no numbness. HEMATOLOGICAL: Denies any bleeding or petechiae. GENITOURINARY: No dysuria frequency urgency or hematuria. MUSCULOSKELETAL/RHEUMATOLOGICAL: Denies any joint deformities, no arthralgia or myalgia. ENDOCRINE: Denies any heat or cold intolerance. Past Medical History Past Medical History: Asthma, Coronary Artery Disease (CAD), Cancer, Chest Pain / Angina, Heart Failure, CVA/TIA, Diabetes Mellitus, GERD/Reflux, H yperlipidemia, Hypertension, Memory Impairment, Pneumonia, Sleep Apnea/CPAP/BIPAP, Thyroid Disorder Additional Past Medical History / Comment(s): IDDM, unable to tolerate C-PAP, hx. 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 , states unable to stand-needs yadira lift to transfer., patient states she has constipation with "pain in bowel" and nausea., resides at [facility] on the [facility]. History of Any Multi-Drug Resistant Organisms: ESBL, MRSA Date of last positivie culture/infection: 06/05/18 ESBL/ MRSA 04/02/11 MDRO Source:: ESBL URINE / MRSA LEG, CHEST, ANKLE Past Surgical History: Bladder Surgery, Cholecystectomy, Heart Catheterization, Heart Catheterization With Stent, Hysterectomy Additional Past Surgical History / Comment(s): Angioplasty with multiple stents- pt states last stent mar 2018., partial parathyroidectomy, cataracts , I and D of L chest wall abscess and L ankle wound, bladder surgery with implant of stimulator system 02/2010, EGD/colonoscoy, Pain procedures. Past Anesthesia/Blood Transfusion Reactions: No Reported Reaction, Motion Sick ness Additional Past Anesthesia/Blood Transfusion Reaction / Comment(s): Pt states she has received blood in the past without reaction. Date of Last Stent Placement:: 06/29/16 Past Psychological History: Anxiety, Depression Smoking Status: Never smoker Past Alcohol Use History: None Reported Past Drug Use History: None Reported - Past Family History Brother(s) Family Medical History: Coronary Artery Disease (CAD) Father Family Medical History: Cancer, Coronary Artery Disease (CAD) Additional Family Medical History / Comment(s): Father had prostate cancer. Mother Family Medical History: Asthma, COPD Medications and Allergies Home Medications Medication Instructions Recorded Confirmed Type Nitroglycerin Sl Tabs [Nitrostat] 0.4 mg SUBLINGUAL Q5M PRN #30 tab 12/23/16 04/09/19 Rx Atorvastatin [Lipitor] 40 mg PO HS@2100 01/30/17 04/09/19 History Aspirin EC [Ecotrin Low Dose] 81 mg PO DAILY@0900 12/14/17 04/09/19 History Acetaminophen [Tylenol] 650 mg PO Q6H PRN 01/16/18 04/09/19 History Albuterol Sulfate [Proair Hfa] 2 puff INHALATION RT-Q6H PRN 06/04/18 04/09/19 History Bisacodyl [Dulcolax] 10 mg RECTAL DAILY PRN supp 06/08/18 04/09/19 Rx Montelukast Sodium [Singulair] 10 mg PO HS@209907/02/18 04/09/19 History ARIPiprazole [Abilify] 5 mg PO HS@209909/04/18 04/09/19 History Bismuth Subsalicylate 524 mg PO Q4H PRN 09/04/18 04/09/19 History [Pepto-Bismol] Ferrous Sulfate [Iron (65 MG 325 mg PO DAILY@89909/04/18 04/09/19 History Elemental)] Insulin Lispro [humaLOG Kwikpen] See Protocol SQ ACHS 09/04/18 04/09/19 History Isosorbide Mononitrate ER [Imdur] 30 mg PO BID 09/04/18 04/09/19 History Lubiprostone [Amitiza] 24 mcg PO BID@0900,2100 09/04/18 04/09/19 History Pantoprazole [Protonix] 40 mg PO DAILY@0909/04/18 04/09/19 History Lisinopril [Zestril] 10 mg PO DAILY@0912/25/18 04/09/19 History Metoprolol Tartrate [Lopressor] 25 mg PO TID@0600,1400,2200 12/25/18 04/09/19 History Citalopram Hydrobromide [CeleXA] 10 mg PO DAILY@89901/10/19 04/09/19 History Citalopram Hydrobromide [CeleXA] 20 mg PO DAILY@0901/10/19 04/09/19 History Ipratropium-Albuterol Nebulize 3 ml INHALATION RT-Q4H PRN 01/10/19 04/09/19 History [Duoneb 0.5 mg-3 mg/3 ml Soln] Loperamide HCl [Imodium A-D] 4 mg PO QID PRN 01/10/19 04/09/19 History Magnesium Hydroxide [Milk of 2,400 mg PO DAILY PRN 01/10/19 04/09/19 History Magnesia] Cholecalciferol [Vitamin D3 (25 2,000 unit PO HS@2100 01/11/19 04/09/19 History Mcg = 1000 Iu)] Clopidogrel [Plavix] 75 mg PO DAILY@0900 01/11/19 04/09/19 History Furosemide [Lasix] 40 mg PO BID@0600,1400 01/11/19 04/09/19 History Ipratropium-Albuterol Nebulize 3 ml INHALATION RT-Q8H 01/11/19 04/09/19 History [Duoneb 0.5 mg-3 mg/3 ml Soln] Budesonide [Pulmicort] 1 mg INHALATION RT-BID@0900,2100 03/14/19 04/09/19 History Calcium Carbonate [Tums] 1,000 mg PO Q6H PRN 03/14/19 04/09/19 History Insulin Detemir [Levemir Flextouch] 50 units SQ HS@209903/14/19 04/09/19 History Gabapentin [Neurontin] 100 mg PO BID@0600,2200 #6 03/18/19 04/09/19 Rx clonazePAM [KlonoPIN] 1 mg PO TID@0600,1400,2200 #9 tab 03/18/19 04/09/19 Rx predniSONE 10 mg PO Q48H #0 03/18/19 04/09/19 Rx traMADol HCl [Ultram] 100 mg PO TID@0600,1400,2200 #18 03/18/19 04/09/19 Rx Diflorasone Diacetate [Psorcon] 1 applic TOPICAL DAILY PRN 04/09/19 04/09/19 History Diflorasone Diacetate [Psorcon] 1 applic TOPICAL HS 04/09/19 04/09/19 History INSULIN LISPRO (HumaLOG) [humaLOG] 5 unit SQ AC-TID 04/09/19 04/09/19 History Levofloxacin [Levaquin] 500 mg PO DAILY 04/09/19 04/09/19 History Na Phos,M-B/Na Phos,Di-Ba [Fleet 133 ml RECTAL DAILY PRN 04/09/19 04/09/19 History Adult] Allergies Allergy/AdvReac Type Severity Reaction Status Date / Time adhesive Allergy Mild Rash/Hives, Verified 04/09/19 13:23 W/ TAPES, CAN USE PAPER TAPE latex Allergy Mild Rash/Hives- Verified 04/09/19 13:23 Sores codeine Allergy Anaphylaxis Verified 04/09/19 13:23 Penicillins Allergy Anaphylaxis Verified 04/09/19 13:23 propoxyphene napsylate Allergy Anaphylaxis Verified 04/09/19 13:23 [From Darvocet-N 100] tuberculin, purified protein Allergy Rash/Hives Verified 04/09/19 13:23 deriva [tuberculin,purif.prot.deriv.] morphine AdvReac Hallucinations, Verified 04/09/19 13:23 anxious Physical Exam Vitals: Vital Signs Temp Pulse Pulse Pulse Resp BP BP 04/10/19 10:00 67 14 104/34 04/10/19 09:30 65 17 87/51 04/10/19 09:00 67 14 111/37 04/10/19 08:30 70 12 103/33 04/10/19 08:17 97.6 F 61 18 111/42 04/10/19 08:00 98.1 F 68 19 110/71 04/10/19 07:30 65 19 85/73 04/10/19 07:21 68 04/10/19 07:13 67 04/10/19 07:00 67 21 111/70 04/10/19 06:30 66 22 113/79 04/10/19 06:00 66 20 96/31 04/10/19 05:30 64 17 112/42 04/10/19 05:00 66 17 98/41 04/10/19 04:30 68 21 92/44 04/10/19 04:00 97.7 F 64 22 102/36 04/10/19 03:30 67 18 123/49 04/10/19 03:00 63 18 120/79 04/10/19 02:30 63 17 105/40 04/10/19 02:00 62 18 130/51 04/10/19 01:30 61 17 115/38 04/10/19 01:00 64 18 112/38 04/10/19 00:30 62 16 108/40 04/10/19 00:00 97.8 F 62 16 100/56 04/09/19 23:30 61 15 111/42 04/09/19 23:00 61 17 109/50 04/09/19 22:30 61 17 122/63 04/09/19 22:15 65 22 125/99 04/09/19 21:45 65 18 95/66 04/09/19 21:30 64 21 131/82 04/09/19 21:15 56 L 17 113/68 04/09/19 21:07 58 L 04/09/19 21:03 56 L 04/09/19 21:00 57 L 19 110/72 04/09/19 20:45 56 L 20 115/49 04/09/19 20:30 56 L 17 89/68 04/09/19 20:15 56 L 13 111/46 04/09/19 20:00 97.6 F 56 L 17 105/58 04/09/19 19:45 57 L 21 100/35 04/09/19 19:30 58 L 17 113/80 04/09/19 19:15 57 L 18 101/47 04/09/19 19:00 60 19 134/101 04/09/19 18:45 60 16 127/51 04/09/19 18:30 62 17 141/58 04/09/19 18:15 65 14 135/112 04/09/19 18:00 64 10 L 136/82 04/09/19 17:45 63 16 103/88 04/09/19 17:30 63 14 75/51 04/09/19 17:15 61 15 111/101 04/09/19 17:00 97.5 F L 62 18 100/82 04/09/19 16:22 97.3 F L 56 L 22 97/81 04/09/19 16:15 56 L 22 97/81 04/09/19 15:24 57 L 18 88/21 04/09/19 15:18 57 L 20 56/33 04/09/19 14:27 57 L 20 112/63 04/09/19 14:24 59 L 04/09/19 14:14 57 L 04/09/19 14:12 57 L 18 98/43 04/09/19 13:36 56 L 22 76/61 04/09/19 13:02 39 L 16 97/77 04/09/19 12:49 35 L 22 04/09/19 12:36 39 L 18 130/117 04/09/19 12:31 97.3 F L 41 L 16 130/117 Pulse Ox 04/10/19 10:00 93 L 04/10/19 09:30 100 04/10/19 09:00 95 04/10/19 08:30 100 04/10/19 08:17 04/10/19 08:00 100 04/10/19 07:30 100 04/10/19 07:21 04/10/19 07:13 04/10/19 07:00 99 04/10/19 06:30 99 04/10/19 06:00 99 04/10/19 05:30 100 04/10/19 05:00 98 04/10/19 04:30 98 04/10/19 04:00 99 04/10/19 03:30 96 04/10/19 03:00 99 04/10/19 02:30 97 04/10/19 02:00 99 04/10/19 01:30 95 04/10/19 01:00 99 04/10/19 00:30 100 04/10/19 00:00 98 04/09/19 23:30 99 04/09/19 23:00 98 04/09/19 22:30 98 04/09/19 22:15 96 04/09/19 21:45 99 04/09/19 21:30 96 04/09/19 21:15 96 04/09/19 21:07 04/09/19 21:03 100 04/09/19 21:00 96 04/09/19 20:45 95 04/09/19 20:30 94 L 04/09/19 20:15 85 L 04/09/19 20:00 96 04/09/19 19:45 96 04/09/19 19:30 96 04/09/19 19:15 93 L 04/09/19 19:00 95 04/09/19 18:45 97 04/09/19 18:30 92 L 04/09/19 18:15 94 L 04/09/19 18:00 95 04/09/19 17:45 97 04/09/19 17:30 99 04/09/19 17:15 94 L 04/09/19 17:00 95 04/09/19 16:22 96 04/09/19 16:15 96 04/09/19 15:24 94 L 04/09/19 15:18 93 L 04/09/19 14:27 94 L 04/09/19 14:24 04/09/19 14:14 04/09/19 14:12 91 L 04/09/19 13:36 92 L 04/09/19 13:02 95 04/09/19 12:49 04/09/19 12:36 96 04/09/19 12:31 95 Intake and Output 04/09/19 04/10/19 04/10/19 22:59 06:59 14:59 Intake Total 8784.891 4986 799.648 Output Total 375 358 215 Balance 1000.178 852 584.648 Intake: IV 1358 1210 505 Calcium Gluconate 1 gm In 150 50 Sodium Chloride 0.9% 100 ml @ 100 mls/hr IVPB ONCE [facility] Rx#:[id number] DOPamine DRIP 800 mg In 60 120 45 Dextrose/Water 1 250ml. bag @ 5 MCG/KG/MIN 14.926 mls/hr IV .[id number] [facility] Rx#:[id number] Dextrose 10 % in Water 250 250 ml @ 999 mls/hr IV ONCE [facility] Rx#:[id number] Levofloxacin 500Mg-D5w 100 Pmx 500 mg In Dextrose/ Water 1 100ml.bag @ 100 mls/hr IVPB Q48H [facility] Rx#: [id number] Sodium Chloride 0.9% 1, 130 1040 460 000 ml @ 75 mls/hr IV . [id number] [facility] Rx#:[id number] Vancomycin 2,250 mg In 668 Sodium Chloride 0.9% 500 ml 500 ml @ 167 mls/hr IVPB ONCE [facility] Rx#: [id number] Intake, IV Titration 17.178 54.648 Amount Norepinephrine 32 mg In 17.178 54.648 Sodium Chloride 0.9% 218 ml @ 0.05 MCG/KG/MIN 3. 732 mls/hr IV .Q24H [facility] Rx#:[id number] Oral 240 Output: Urine 325 358 215 Emesis 50 Hemodialysis 0 Other: Voiding Method Indwelling Catheter Indwelling Catheter Indwelling Catheter Physical Exam: Revealed a 74-year-old female morbidly obese, in no distress. Head: Atraumatic, normocephalic. HEENT:[Neck is supple.] [No neck masses.] [No thyromegaly.] [No JVD.] PERRLA, EOMI, no icterus. Chest: [Diminished breath sounds and crackles at the bases no rhonchi and no wheezes. Symmetrical chest expansion.] Cardiac Exam: Distant S1 and S2, no S3 gallop, no murmur. No gallop.] Abdomen: [Morbidly obese, Soft, nontender, no megaly, no rebound, no guarding, normal bowel sounds.] Extremities: [No clubbing, trace of bipedal edema, no cyanosis.] Neurological Exam: [No focal neurologic deficit.] Alert and oriented 3. No focal deficits. Skin: No rashes or petechiae. Psychiatric: Normal mood affect and normal mental status examination. Results - Laboratory Findings CBC and BMP: 04/10/19 04:20 04/10/19 04:20 PT/INR, D-dimer PT 9.6 sec (9.0-12.0) 04/09/19 12:40 INR 0.9 (<1.2) 04/09/19 12:40 Abnormal lab findings: Abnormal Labs 04/09/19 04/09/19 04/09/19 12:40 12:40 12:40 WBC 13.1 H RBC 3.08 L Hgb 10.0 L D Hct 31.8 L MCV 103.3 H Neutrophils # 10.0 H APTT 19.7 L Sodium 133 L Potassium 6.7 H* Chloride 95 L BUN 122 H* Creatinine 5.60 H Glucose 113 H POC Glucose (mg/dL) Phosphorus Total Creatine Kinase Total Protein 5.1 L Albumin 3.1 L Procalcitonin TSH 10.000 H Urine Appearance Urine Blood Ur Leukocyte Esterase Urine WBC Urine WBC Clumps Urine Bacteria 04/09/19 04/09/19 04/09/19 12:40 15:15 16:53 WBC RBC Hgb Hct MCV Neutrophils # APTT Sodium Potassium Chloride BUN Creatinine Glucose POC Glucose (mg/dL) 111 H Phosphorus Total Creatine Kinase Total Protein Albumin Procalcitonin 0.21 H TSH Urine Appearance Cloudy H Urine Blood Small H Ur Leukocyte Esterase Large H Urine WBC 163 H Urine WBC Clumps Many H Urine Bacteria Moderate H 04/09/19 04/09/19 04/09/19 18:35 23:27 23:55 WBC RBC Hgb Hct MCV Neutrophils # APTT Sodium 133 L Potassium 7.2 H* 5.3 H Chloride 96 L BUN 125 H* Creatinine 5.27 H Glucose 119 H POC Glucose (mg/dL) 131 H Phosphorus Total Creatine Kinase Total Protein Albumin Procalcitonin TSH Urine Appearance Urine Blood Ur Leukocyte Esterase Urine WBC Urine WBC Clumps Urine Bacteria 04/10/19 04/10/19 04/10/19 04:20 04:20 07:02 WBC 16.4 H RBC 3.20 L Hgb 10.2 L Hct 32.5 L MCV 101.5 H Neutrophils # 13.7 H APTT Sodium 133 L Potassium 5.7 H Chloride 96 L BUN 84 H Creatinine 3.49 H Glucose 129 H POC Glucose (mg/dL) 125 H Phosphorus 5.1 H Total Creatine Kinase Total Protein Albumin Procalcitonin TSH Urine Appearance Urine Blood Ur Leukocyte Esterase Urine WBC Urine WBC Clumps Urine Bacteria 04/10/19 04/10/19 09:30 10:52 WBC RBC Hgb Hct MCV Neutrophils # APTT Sodium Potassium Chloride BUN Creatinine Glucose POC Glucose (mg/dL) 137 H Phosphorus Total Creatine Kinase 28 L Total Protein Albumin Procalcitonin TSH Urine Appearance Urine Blood Ur Leukocyte Esterase Urine WBC Urine WBC Clumps Urine Bacteria - Diagnostic Findings Chest x-ray: image reviewed (Cardiomegaly, subsegmental atelectasis, minimal interstitial edema) Assessment and Plan Assessment: Impression: Symptomatic bradycardia with hypotension secondary to hyperkalemia. Acute kidney injury secondary to acute tumor necrosis and hypotension with bradycardia. Hyperkalemia secondary to acute kidney injury. Insulin dependent diabetes mellitus. History of coronary artery disease and previous stent placement Irritable bowel syndrome Chronic urinary incontinence History of cervical cancer and previous hysterectomy History of partial parathyroidectomy History of benign essential hypertension Chronic diastolic congestive heart failure Recommendation: Patient is status post hemodialysis to correct her hyperkalemia and her renal status. Patient will continue on dopamine and norepinephrine and both of be titrated accordingly. Continue to monitor hemodynamic status in the ICU and in the meantime continue pressors/inotropes. Monitor closely for worsening congestive heart failure. Continue GI and DVT prophylaxis. Continue bronchodilators. Empiric antibiotics until cultures are available including blood and urine cultures. We'll continue to follow. Prognosis is guarded Time with Patient: Greater than 30
[2019-04-10] MEDS ORDERED: FUROSEMIDE 10 MG/ML 10 ML VIAL IV STA (12:18)
[2019-04-10 12:25] LABS: Hepatitis B Surface AB- Quant 3.5 mIU/mL; Hepatitis B Surface Antibody Non-Reactive (Non-Reactive); Hepatitis B Surface Antigen Non-Reactive (Non-Reactive)
[2019-04-10] MEDS ORDERED: LEVOFLOXACIN 750MG-D5W PMX 750 MG in DEXTROSE/WATER 1 150ML.BAG IVPB SCH (16:00)
[2019-04-10] MEDS: NOREPINEPHRINE 32 MG in SODIUM CHLORIDE 0.9% 218 ML IV SCH (16:22)
[2019-04-10 17:09] LABS: Glucose,Whole Blood 125 mg/dL (75-99)
[2019-04-10] MEDS: ARIPiprazole 5 MG TAB PO SCH (20:21)
[2019-04-10] MEDS: MONTELUKAST 10 MG TAB PO SCH (20:22)
[2019-04-10] MEDS: ATORVASTATIN 40 MG TAB PO SCH (20:22)
[2019-04-10] MEDS: CHOLECALCIFEROL 1,000 UNIT TAB PO SCH (20:24)
[2019-04-10 20:39] LABS: Glucose,Whole Blood 186 mg/dL (75-99)
[2019-04-10 20:40] LABS: Calcium 8.1 mg/dL (8.4-10.2)
[2019-04-10] MEDS: INSULIN DETEMIR (LEVEMIR) 100 UNIT/ML SYR SQ SCH (20:46)
[2019-04-11] MEDS ORDERED: NITROGLYCERIN SL TABS 0.4 MG TAB SUBLINGUAL ONE ×2 (00:14→00:27)
[2019-04-11] MEDS ORDERED: NITROGLYCERIN OINT 1 INCH/GM PACKET TOPICAL STA (04:10)
[2019-04-11 04:44] LABS: Basophils # (A) 0.2 k/uL (0-0.2); Basophils % (A) 2 %; Eosinophils # (A) 0.3 k/uL (0-0.7); Eosinophils % (A) 2 %; HCT 30.9 % (34.0-46.0); HGB 9.7 gm/dL (11.4-16.0); Hypochromasia Moderate; Lymphocytes # (A) 1.4 k/uL (1.0-4.8); Lymphocytes % (A) 9 %; MCH 32.7 pg (25.0-35.0); MCHC 31.5 g/dL (31.0-37.0); MCV 103.8 fL (80.0-100.0); Macrocytosis Slight; Mean Platelet Volume 7.8; Monocytes % (A) 6 %; Neutrophils % (A) 80 %; Platelet Count 179 k/uL (150-450); RBC 2.97 m/uL (3.80-5.40); RDW 14.5 % (11.5-15.5); WBC 16.3 k/uL (3.8-10.6)
[2019-04-11] MEDS: ACETAMINOPHEN TAB 325 MG TAB PO PRN (04:52)
[2019-04-11 05:02] LABS: Calcium 8.4 mg/dL (8.4-10.2); Potassium 5.2 mmol/L (3.5-5.1)
[2019-04-11 05:07] LABS: Vancomycin,Random 22.2 ug/mL
[2019-04-11] MEDS: GABAPENTIN 100 MG CAP PO SCH ×2 (07:10→22:17)
[2019-04-11] MEDS: BUDESONIDE 1 MG/2 ML NEBU INHALATION SCH ×2 (07:16→19:50)
[2019-04-11 07:17] LABS: Glucose,Whole Blood 177 mg/dL (75-99)
[2019-04-11] MEDS: INSULIN ASPART (NovoLOG) 100 UNIT/ML VIAL SQ SCH ×4 (07:19→22:17)
[2019-04-11] MEDS: SODIUM CHLORIDE 0.9% 1,000 ML IV SCH ×2 (07:35→17:28)
--- NOTE | 2019-04-11 07:49 | XR ---
EXAMINATION TYPE: XR chest 1V portable DATE OF EXAM: 04/11/2019 COMPARISON: 04/10/2019 HISTORY: Shortness of breath TECHNIQUE: Single frontal view of the chest is obtained. FINDINGS: Heart is enlarged. Prominent interstitial markings are seen. No pneumothorax. Bibasilar ibanez bsegmental consolidation. Could not exclude small effusions. Bilateral hilar prominence. IMPRESSION: 1. Cardiomegaly with interstitial pattern correlate for venous congestion or interstitial pneumonitis . Basilar infiltrate or atelectasis with tiny effusion suspected. 2. Bilateral hilar enlargement could reflect pulmonary arterial hypertension. Mass or adenopathy not excluded.
[2019-04-11] MEDS: CITALOPRAM HYDROBROMIDE 20 MG TAB PO SCH (08:11)
[2019-04-11] MEDS: FERROUS SULFATE 325 MG TAB PO SCH (08:11)
[2019-04-11] MEDS: ASPIRIN 81 MG PO SCH (08:11)
[2019-04-11] MEDS: CLOPIDOGREL 75 MG TAB PO SCH (08:11)
[2019-04-11] MEDS: HEPARIN SODIUM,PORCINE 5,000 UNIT/ML 1 ML VIAL SQ SCH (08:11)
[2019-04-11] MEDS: LEVOFLOXACIN 500MG-D5W PMX 500 MG in DEXTROSE/WATER 1 100ML.BAG IVPB SCH (08:11)
[2019-04-11] MEDS: CITALOPRAM HYDROBROMIDE 10 MG TAB PO SCH (08:11)
[2019-04-11] MEDS: PANTOPRAZOLE 40 MG TABLET PO SCH (08:12)
--- NOTE | 2019-04-11 09:25 | P.PN ---
Subjective Patient is seen in follow-up for acute kidney injury. She has undergone 2 treatments of hemodialysis so far. Last treatment was April 10. She is resting in bed. Appears more confused today. Urine output 35-40 mL an hour. She is maintained on normal saline at 75 mL an hour and is also on about 16 mics of Levophed. Vital signs are stable. General: The patient appeared well nourished and normally developed. HEENT: Head exam is unremarkable. Neck is without jugular venous distension. LUNGS: Lungs are clear to auscultation and percussion. Breath sounds decreased. HEART: Rate and Rhythm are regular. First and second heart sounds normal. No murmurs, rubs or gallops. ABDOMEN: Abdominal exam reveals normal bowel sounds. Non-tender and non- distended. No evidence of peritonitis. EXTREMITITES: 1+ edema. Objective - Vital Signs Vital signs: Vital Signs Temp 98.5 F 04/11/19 08:00 Pulse 105 H 04/11/19 08:00 Resp 20 04/11/19 08:00 BP 102/38 04/11/19 08:00 Pulse Ox 96 04/11/19 08:00 Intake & Output 04/10/19 04/11/19 04/11/19 18:59 06:59 18:59 Intake Total 2086.359 936.083 150 Output Total 1105 402 65 Balance 981.359 534.083 85 Intake: IV 1381 900 150 DOPamine DRIP 800 mg In 45 Dextrose/Water 1 250ml. bag @ 5 MCG/KG/MIN 14.926 mls/hr IV .[id number] [facility] Rx#:[id number] Sodium Chloride 0.9% 1, 835 900 150 000 ml @ 75 mls/hr IV . [id number] [facility] Rx#:[id number] Vancomycin 2,250 mg In 501 Sodium Chloride 0.9% 500 ml 500 ml @ 167 mls/hr IVPB ONCE [facility] Rx#: [id number] Intake, IV Titration 105.359 36.083 Amount Norepinephrine 32 mg In 105.359 36.083 Sodium Chloride 0.9% 218 ml @ 0.05 MCG/KG/MIN 3. 732 mls/hr IV .Q24H [facility] Rx#:[id number] Oral 600 Output: Urine 605 402 65 Hemodialysis 500 Other: Voiding Method Indwelling Catheter Indwelling Catheter Indwelling Catheter - Labs CBC & Chem 7: 04/11/19 04:08 04/11/19 04:08 Labs: Abnormal Lab Results - Last 24 Hours (Table) 04/10/19 04/10/19 04/10/19 Range/Units 09:30 10:52 12:01 WBC (3.8-10.6) k/uL RBC (3.80-5.40) m/uL Hgb (11.4-16.0) gm/dL Hct (34.0-46.0) % MCV (80.0-100.0) fL Neutrophils # (1.3-7.7) k/uL Sodium (137-145) mmol/L Potassium (3.5-5.1) mmol/L BUN (7-17) mg/dL Creatinine (0.52-1.04) mg/dL Glucose (74-99) mg/dL POC Glucose (mg/dL) 137 H 134 H (75-99) mg/dL Calcium (8.4-10.2) mg/dL Total Creatine Kinase 28 L (30-135) U/L Troponin I (0.000-0.034) ng/mL 04/10/19 04/10/19 04/10/19 Range/Units 17:07 20:10 20:37 WBC (3.8-10.6) k/uL RBC (3.80-5.40) m/uL Hgb (11.4-16.0) gm/dL Hct (34.0-46.0) % MCV (80.0-100.0) fL Neutrophils # (1.3-7.7) k/uL Sodium 133 L (137-145) mmol/L Potassium (3.5-5.1) mmol/L BUN 50 H (7-17) mg/dL Creatinine 2.22 H (0.52-1.04) mg/dL Glucose 148 H (74-99) mg/dL POC Glucose (mg/dL) 125 H 186 H (75-99) mg/dL Calcium 8.1 L (8.4-10.2) mg/dL Total Creatine Kinase (30-135) U/L Troponin I (0.000-0.034) ng/mL 04/11/19 04/11/19 04/11/19 Range/Units 04:08 04:08 05:36 WBC 16.3 H (3.8-10.6) k/uL RBC 2.97 L (3.80-5.40) m/uL Hgb 9.7 L (11.4-16.0) gm/dL Hct 30.9 L (34.0-46.0) % MCV 103.8 H (80.0-100.0) fL Neutrophils # 13.0 H (1.3-7.7) k/uL Sodium 133 L (137-145) mmol/L Potassium 5.2 H (3.5-5.1) mmol/L BUN 51 H (7-17) mg/dL Creatinine 2.31 H (0.52-1.04) mg/dL Glucose 162 H (74-99) mg/dL POC Glucose (mg/dL) (75-99) mg/dL Calcium (8.4-10.2) mg/dL Total Creatine Kinase (30-135) U/L Troponin I 0.187 H* (0.000-0.034) ng/mL 04/11/19 Range/Units 07:15 WBC (3.8-10.6) k/uL RBC (3.80-5.40) m/uL Hgb (11.4-16.0) gm/dL Hct (34.0-46.0) % MCV (80.0-100.0) fL Neutrophils # (1.3-7.7) k/uL Sodium (137-145) mmol/L Potassium (3.5-5.1) mmol/L BUN (7-17) mg/dL Creatinine (0.52-1.04) mg/dL Glucose (74-99) mg/dL POC Glucose (mg/dL) 177 H (75-99) mg/dL Calcium (8.4-10.2) mg/dL Total Creatine Kinase (30-135) U/L Troponin I (0.000-0.034) ng/mL Microbiology - Last 24 Hours (Table) 04/09/19 15:15 Urine Culture - Final Urine,Voided 04/09/19 12:40 Blood Culture - Preliminary Blood No Growth after 24 hours Assessment and Plan Plan: Assessment: 1. Acute kidney injury secondary to ATN secondary to hypotension and bradycardia. Creatinine 5.6 on admission. Baseline near 1. No proteinuria on UA. Kidney ultrasound revealed small left kidney without any hydronephrosis. 2. Hyperkalemia secondary to acute kidney injury and further worsened with the use of lisinopril. Improved postdialysis. 3. Hyponatremia secondary to acute kidney injury. 4. Insulin-dependent diabetes mellitus. 5. Hypotension maintained on Levophed. Concern for sepsis from UTI. 6. Bradycardia secondary to hyperkalemia s/p dopamine. Cardiology following. Resolved. Plan: Maintain normal saline at 75 mL an hour. Follow-up cultures. Wean vasopressors. Hold hemodialysis today. Continue to monitor renal function and urine output closely. Continue to assess on daily basis for need for renal replacement therapy. Patient received IV Lasix 60 mg yesterday without any significant response in urine output.
--- NOTE | 2019-04-11 09:45 | PN ---
PROGRESS NOTE Carla is a 74-year-old lady who is admitted to hospital with acute on chronic renal failure, hyperkalemia and bradycardia as a result of that. She remains hypotensive and still on Levophed. Had an episode of chest pain last night with mild elevation in troponin at 0.1. On exam, heart rate is 104 beats per minute, blood pressure is 102/38, respiratory rate is 18. Chest exam reveals diminished air entry bilaterally. Heart exam reveals first and second heart sounds. No gallop. Abdomen is soft. Exam of extremities reveals chronic changes over the lower extremities with mild edema. Labs show that the hemoglobin is 9.7, potassium is 5.2, BUN is 51, creatinine is 2.3. ASSESSMENT: 1. Symptomatic bradycardia secondary to hyperkalemia. 2. Acute on chronic renal failure. 3. Mild non ST-segment elevation NV, probably related to supply-demand mismatch in a patient who is hypotensive, has renal failure and is off her beta blockers. Will try to treat her with optimal medical therapy. I will put her on nitro paste and once she is off the Levophed, we can resume the beta-blockers that she was on. MMODL / IJN: [id number] /
[2019-04-11] MEDS: ISOSORBIDE MONONITRATE ER 30 MG TAB.ER.24H PO SCH ×2 (10:22→22:16)
--- NOTE | 2019-04-11 10:35 | P.PN ---
Subjective This is a pleasant 74 years old female with past medical history of heart failure, hypertension, hyperlipidemia, diabetes mellitus, coronary artery syndrome status post stent placement last one was last year on 03/2018, partial parathyroidectomy, chronic low back pain, scoliosis, urine incontinence, irritable bowel syndrome, peptic ulcer disease, hiatal hernia, TIA, hemorrhoids, cervical cancer status post hysterectomy. Patient was sent from the [facility] for shortness of breath, patient states she could not breathe for the last 2-3 days, patient also complaining of from right mid abdominal pain/right flank pain, no chest pain no nausea vomiting. Patient felt tired and she did not finish the encounter On admission patient was tachycardic with heart rate were 39-57, blood pressure was 76/61 and she's getting 2 L of normal saline bolus. 04/10/2019 Patient was admitted to the ICU for suspension of septic shock, she was started on Levaquin and IV vancomycin, currently she remains in the ICU fully awake and oriented however she is needing pressors with Levophed at 0.1 per hour. Her blood pressure is better 104/34, heart rate 67, she is saturating 93% and patient is been afebrile. Labs showing worsening leukocytosis of 16.4 K. Sodium 133, potassium improved to 5.7, creatinine, down to 3.4, glucose is controlled, TSH came back to normal. Lactic acid is normal. Urine cultures pending. Chest x-ray showing possible early interstitial edema and pulmonary hypertension. Patient was complaining of from some chest pain, same right sided abdominal pain and her usual back pain. Home dose of Ultram and topical pain management was restarted She is on normal saline at 75 mL/h. Patient is followed closely by several consultants including cardiology, nephrology and critical care team 04/11/2019 Patient remains in the ICU, she is currently on Levothroid 0.1 g, she is fully awake and oriented, she knows in the hospital and she knows why for example chest pain, patient still complain from chest pain yesterday and today and her troponin came back elevated at 0.18 cardiology team already evaluated the patient for possible mild non-STEMI from supply-demand mismatch and start her on some Nitropaste, with recommendation to restart beta tish after taking off Levothroid. Chest x-ray showing bilateral hilar enlargement, with interstitial infiltrates. Nephrology on the case and she is undergoing hemodialysis, last one was yesterday. Patient is not responding to IV Lasix, she has Solitario catheter. Nephrology case R following closely Review of systems CONSTITUTIONAL: No fever, no malaise, no fatigue. HEENT: No recent visual problems or hearing problems. Denied any sore throat. CARDIOVASCULAR: No orthopnea, PND, no palpitations, no syncope. PULMONARY: no hemoptysis. GASTROINTESTINAL: No diarrhea, no nausea, no vomiting, no abdominal pain. Normoactive bowel sounds. NEUROLOGICAL: No headaches, no weakness, no numbness. HEMATOLOGICAL: Denies any bleeding or petechiae. GENITOURINARY: Denies any burning micturition, frequency, or urgency. MUSCULOSKELETAL/RHEUMATOLOGICAL: Denies any joint pain, swelling, or any muscle pain. ENDOCRINE: Denies any polyuria or polydipsia. Active Medications Generic Name Dose Route Start Last Admin Trade Name Freq PRN Reason Stop Dose Admin Acetaminophen 650 mg 04/10/19 10:35 04/11/19 04:52 Tylenol Tab PO 650 mg Q6HR PRN Administration Fever and/ or Pain Aripiprazole 5 mg 04/09/19 21:00 04/10/19 20:21 Abilify PO 5 mg HS@2100 JAVIER Administration Aspirin 81 mg 04/10/19 09:00 04/11/19 08:11 Aspirin PO 81 mg DAILY@0900 JAVIER Administration Atorvastatin Calcium 40 mg 04/09/19 21:00 04/10/19 20:22 Lipitor PO 40 mg HS@2100 JAVIER Administration Bisacodyl 10 mg 04/09/19 14:06 Dulcolax RECTAL DAILY PRN Constipation Budesonide 1 mg 04/09/19 21:00 04/11/19 07:16 Pulmicort INHALATION 1 mg RT-BID@0900,2100 JAVIER Administration Calcium Carbonate/Glycine 1,000 mg 04/09/19 14:06 Tums PO Q6H PRN GI Upset Cholecalciferol 2,000 unit 04/09/19 21:00 04/10/19 20:24 Vitamin D3 (25 Mcg = 1000 Iu) PO 2,000 unit HS@2100 JAVIER Administration Citalopram Hydrobromide 10 mg 04/10/19 09:00 04/11/19 08:11 Celexa PO 10 mg DAILY@0900 JAVIER Administration Citalopram Hydrobromide 20 mg 04/10/19 09:00 04/11/19 08:11 Celexa PO 20 mg DAILY@0900 JAVIER Administration Clopidogrel Bisulfate 75 mg 04/10/19 09:00 04/11/19 08:11 Plavix PO 75 mg DAILY@0900 JAVIER Administration Ferrous Sulfate 325 mg 04/10/19 09:00 04/11/19 08:11 Feosol PO 325 mg DAILY@0900 JAVIER Administration Gabapentin 100 mg 04/09/19 22:00 04/11/19 07:10 Neurontin PO 100 mg BID@0600,2200 JAVIER Administration Heparin Sodium (Porcine) 5,000 unit 04/09/19 21:00 04/11/19 08:11 Heparin SQ 5,000 unit Q12HR JAVIER Administration Sodium Chloride 1,000 mls @ 75 mls/hr 04/09/19 14:00 04/11/19 07:35 Saline 0.9% IV 75 mls/hr .[id number] JAVIER Administration Norepinephrine Bitartrate 32 250 mls @ 3.732 mls/hr 04/09/19 15:45 04/10/19 23:05 mg/ Sodium Chloride IV 0.1 mcg/kg/min .Q24H JAVIER 7.463 mls/hr Titration Protocol 0.05 MCG/KG/MIN Levofloxacin 500 mg/ IV 100 mls @ 100 mls/hr 04/11/19 09:00 04/11/19 08:11 Solution IVPB 100 mls/hr Q48H JAVIER Administration Vancomycin HCl 2,250 mg/ 500 mls @ 167 mls/hr 04/11/19 11:00 Sodium Chloride IVPB 04/11/19 13:59 ONCE ONE Insulin Aspart 0 unit 04/10/19 12:30 04/11/19 07:19 Novolog SQ 2 unit ACHS JAVIER Administration Protocol Insulin Detemir 25 unit 04/09/19 21:00 04/10/19 20:46 Levemir SQ 25 unit HS@2100 [facility] Administration Isosorbide Mononitrate 30 mg 04/11/19 09:00 Imdur PO BID JAVIER Lidocaine HCl 1 applic 04/10/19 11:04 Xylocaine Jelly 2% TOPICAL TID PRN Back Pain Miscellaneous Information 1 each 04/09/19 16:26 Pharmacy To Dose Iv Vancomycin MISCELLANE DIRECTED PRN Per Protocol Protocol Montelukast Sodium 10 mg 04/09/19 21:00 04/10/19 20:22 Singulair PO 10 mg HS@2100 JAVIER Administration Naloxone HCl 0.2 mg 04/09/19 13:51 Narcan IV Q2M PRN Opioid Reversal Ondansetron HCl 4 mg 04/09/19 22:14 04/10/19 10:39 Zofran IVP 4 mg Q6HR PRN Administration Nausea And Vomiting Pantoprazole Sodium 40 mg 04/11/19 09:00 04/11/19 08:12 Protonix PO 40 mg DAILY JAVIER Administration Tramadol HCl 100 mg 04/10/19 10:34 04/11/19 08:12 Ultram PO 100 mg TID PRN Administration Moderate to Severe Pain Trimethobenzamide HCl 300 mg 04/10/19 10:31 04/10/19 13:37 Tigan PO 300 mg TID PRN Administration nausea Objective - Vital Signs Vital signs: Vital Signs Temp 98.5 F 04/11/19 08:00 Pulse 99 04/11/19 10:00 Resp 22 04/11/19 10:00 BP 86/70 04/11/19 10:00 Pulse Ox 96 04/11/19 10:00 Intake & Output 04/10/19 04/11/19 04/11/19 18:59 06:59 18:59 Intake Total 2086.359 936.083 325 Output Total 1105 402 125 Balance 981.359 534.083 200 Weight 166 kg Intake: IV 1381 900 325 DOPamine DRIP 800 mg In 45 Dextrose/Water 1 250ml. bag @ 5 MCG/KG/MIN 14.926 mls/hr IV .[id number] ONE Rx#:[id number] Levofloxacin 500Mg-D5w 100 Pmx 500 mg In Dextrose/ Water 1 100ml.bag @ 100 mls/hr IVPB Q48H [facility] Rx#: [id number] Sodium Chloride 0.9% 1, 835 900 225 000 ml @ 75 mls/hr IV . [id number] [facility] Rx#:[id number] Vancomycin 2,250 mg In 501 Sodium Chloride 0.9% 500 ml 500 ml @ 167 mls/hr IVPB ONCE ONE Rx#: [id number] Intake, IV Titration 105.359 36.083 Amount Norepinephrine 32 mg In 105.359 36.083 Sodium Chloride 0.9% 218 ml @ 0.05 MCG/KG/MIN 3. 732 mls/hr IV .Q24H [facility] Rx#:[id number] Oral 600 Output: Urine 605 402 125 Hemodialysis 500 Other: Voiding Method Indwelling Catheter Indwelling Catheter Indwelling Catheter - Exam -GENERAL: The patient is alert and oriented x3, not in any acute distress . morbidly obese HEENT: Pupils are round and equally reacting to light. EOMI. No scleral icterus. No conjunctival pallor. Normocephalic, atraumatic. No pharyngeal erythema. No thyromegaly. CARDIOVASCULAR: S1 and S2 present. No murmurs, rubs, or gallops. PULMONARY: Chest is clear to auscultation, no wheezing or crackles. -ABDOMEN: Soft, nontender, mild right mid abdomen/right flank tenderness, no rebound tenderness or guarding, normoactive bowel sounds. No palpable organomegaly. MUSCULOSKELETAL: No joint swelling or deformity. EXTREMITIES: No cyanosis, clubbing, or pedal edema. NEUROLOGICAL: Gross neurological examination did not reveal any focal deficits. SKIN: No rashes. No petechiae - Labs CBC & Chem 7: 04/11/19 04:08 04/11/19 04:08 Labs: Abnormal Lab Results - Last 24 Hours (Table) 04/10/19 04/10/19 04/10/19 Range/Units 10:52 12:01 17:07 WBC (3.8-10.6) k/uL RBC (3.80-5.40) m/uL Hgb (11.4-16.0) gm/dL Hct (34.0-46.0) % MCV (80.0-100.0) fL Neutrophils # (1.3-7.7) k/uL Sodium (137-145) mmol/L Potassium (3.5-5.1) mmol/L BUN (7-17) mg/dL Creatinine (0.52-1.04) mg/dL Glucose (74-99) mg/dL POC Glucose (mg/dL) 137 H 134 H 125 H (75-99) mg/dL Calcium (8.4-10.2) mg/dL Troponin I (0.000-0.034) ng/mL 04/10/19 04/10/19 04/11/19 Range/Units 20:10 20:37 04:08 WBC 16.3 H (3.8-10.6) k/uL RBC 2.97 L (3.80-5.40) m/uL Hgb 9.7 L (11.4-16.0) gm/dL Hct 30.9 L (34.0-46.0) % MCV 103.8 H (80.0-100.0) fL Neutrophils # 13.0 H (1.3-7.7) k/uL Sodium 133 L (137-145) mmol/L Potassium (3.5-5.1) mmol/L BUN 50 H (7-17) mg/dL Creatinine 2.22 H (0.52-1.04) mg/dL Glucose 148 H (74-99) mg/dL POC Glucose (mg/dL) 186 H (75-99) mg/dL Calcium 8.1 L (8.4-10.2) mg/dL Troponin I (0.000-0.034) ng/mL 04/11/19 04/11/19 04/11/19 Range/Units 04:08 05:36 07:15 WBC (3.8-10.6) k/uL RBC (3.80-5.40) m/uL Hgb (11.4-16.0) gm/dL Hct (34.0-46.0) % MCV (80.0-100.0) fL Neutrophils # (1.3-7.7) k/uL Sodium 133 L (137-145) mmol/L Potassium 5.2 H (3.5-5.1) mmol/L BUN 51 H (7-17) mg/dL Creatinine 2.31 H (0.52-1.04) mg/dL Glucose 162 H (74-99) mg/dL POC Glucose (mg/dL) 177 H (75-99) mg/dL Calcium (8.4-10.2) mg/dL Troponin I 0.187 H* (0.000-0.034) ng/mL Microbiology - Last 24 Hours (Table) 04/09/19 15:15 Urine Culture - Final Urine,Voided 04/09/19 12:40 Blood Culture - Preliminary Blood No Growth after 24 hours Assessment and Plan Assessment: Acute kidney injury, needing hemodialysis. Mostly cardiorenal syndrome. Hyperkalemia, improving Bradycardia and hypotension could be due to hyperkalemia Hypotension, Rule out septic shock . Heart rate is better now Mild non-STEMI with elevated troponin, mostly due to demand-supply mismatch Diabetes mellitus Hyperlipidemia Chronic heart failure History of chronic kidney disease, stage III. Mostly diabetic nephropathy History of hypertension History of coronary artery disease status post multiple stents Partial parathyroidectomy Chronic low back pain with scoliosis Urinary incontinence Irritable bowel syndrome Peptic ulcer disease Hiatal hernia TIA Hemorrhoids Cervical cancer status post hysterectomy Plan: This is a pleasant 74 years old female who presents with acute kidney injury, hyperkalemia, needing hemodialysis, and nephrology on the case. hypotension and bradycardia. Blood pressure is improving with Levophed, critical care, cardiolo gist on the case. Continue with hydration, continue with nitro paste. Continue with insulin and increase it to gradually. Continue with antibiotics. Pain management for her back pain. Continue with Solitario catheter and monitor input and output Labs and medication were reviewed.. Continue same treatment. Continue with symptomatic treatment. Resume home medication. Monitor lytes and vitals. DVT and GI prophylaxis. Further recommendations of the clinical course of the patient DVT prophylaxis: Subcutaneous heparin GI Prophylaxis: Pepcid Prognosis is guarded
[2019-04-11] MEDS ORDERED: VANCOMYCIN 2,250 MG in SODIUM CHLORIDE 0.9% 500 ML 500 ML IVPB ONE (11:00)
[2019-04-11 12:02] LABS: Glucose,Whole Blood 169 mg/dL (75-99)
--- NOTE | 2019-04-11 13:35 | P.PN ---
Subjective Progress Note Date: 04/11/19 Principal diagnosis: Symptomatic bradycardia and hypotension with hyperkalemia This is a 74-year-old female with known history of multiple medical problems including diastolic congestive heart failure, hypertension, diabetes, coronary artery disease and previous stent placement, chronic low back pain, urinary incontinence, irritable bowel syndrome, cervical cancer and previous hysterectomy, patient was sent to the ER last night from the [facility] on the [place] with complaints of shortness of breath. Patient has been complaining of shortness of breath for the last 2-3 days. She was also complaining of right mid abdominal and right flank pain. She had no chest pain, no nausea no vomiting, no fever no chills no hemoptysis. Patient was feeling extremely tired and exhausted. Upon evaluation in the ER, patient was noted to be profoundly bradycardic, heart rate ranging between 40 and 60. Blood pressure on arrival was 76/61. Patient had a right femoral triple-lumen catheter placed by the ER physician, and she had fluid boluses at least 2 L were given in the form of 0.9 normal saline. Patient was placed on dopamine for her profound bradycardia, and she is presently on dopamine at 5 mcg/kg/m. Remained hypotensive, hence norepinephrine at 0.04 mcg/kg/m was added. Maintained on IV fluid at 100 mL/h, admitted to the ICU, and this consult was initiated. I evaluated the patient in the ICU, kept her on dopamine and norepinephrine, and she was seen by nephrology on consultation last night, patient underwent stat hemodialysis mostly because of her hyperkalemia and acute kidney injury. Reevaluated today on 04/11/2019, patient remains on norepinephrine at 0.04 mcg/ kg/m, blood pressure remains marginal, hence a left radial arterial line was placed. Patient is off dopamine, she is in sinus rhythm, and no further episodes of bradycardia. She is alert oriented 3, according to the nurse she had intermittent episodes of confusion, but her mental status seems to be intact this morning. Chest x-ray showed cardiomegaly and interstitial edema with bibasilar atelectasis. Electrolytes are much improved potassium is down to 5.2 BUN is 51 creatinine 2.31, no plans for dialysis today. WBC count is 16.3 hemoglobin is 9.7. Patient denies any shortness of breath, she feels generally weak. Objective - Vital Signs Vital signs: Vital Signs Temp 98.5 F 04/11/19 08:00 Pulse 101 H 04/11/19 13:00 Resp 26 H 04/11/19 13:00 BP 104/56 04/11/19 12:00 Pulse Ox 94 L 04/11/19 13:00 Intake & Output 04/10/19 04/11/19 04/11/19 18:59 06:59 18:59 Intake Total 2086.359 936.083 405 Output Total 1105 402 155 Balance 981.359 534.083 250 Weight 166 kg Intake: IV 1381 900 405 DOPamine DRIP 800 mg In 45 Dextrose/Water 1 250ml. bag @ 5 MCG/KG/MIN 14.926 mls/hr IV .[id number] [facility] Rx#:[id number] Levofloxacin 500Mg-D5w 100 Pmx 500 mg In Dextrose/ Water 1 100ml.bag @ 100 mls/hr IVPB Q48H [facility] Rx#: [id number] Sodium Chloride 0.9% 1, 835 900 305 000 ml @ 75 mls/hr IV . [id number] [facility] Rx#:[id number] Vancomycin 2,250 mg In 501 Sodium Chloride 0.9% 500 ml 500 ml @ 167 mls/hr IVPB ONCE ONE Rx#: [id number] Intake, IV Titration 105.359 36.083 Amount Norepinephrine 32 mg In 105.359 36.083 Sodium Chloride 0.9% 218 ml @ 0.05 MCG/KG/MIN 3. 732 mls/hr IV .Q24H [facility] Rx#:[id number] Oral 600 Output: Urine 605 402 155 Hemodialysis 500 Other: Voiding Method Indwelling Catheter Indwelling Catheter Indwelling Catheter ABP, PAP, CO, CI - Last Documented Arterial Blood Pressure 131/39 - Exam Physical Exam: Revealed a 74-year-old female morbidly obese, in no distress. On few liters nasal cannula. Head: Atraumatic, normocephalic. HEENT:[Neck is supple.] [No neck masses.] [No thyromegaly.] [No JVD.] PERRLA, EOMI, no icterus. Chest: [Diminished breath sounds crackles and rhonchi noted bilaterally Cardiac Exam: Distant S1 and S2, no S3 gallop, no murmur. No gallop.] Abdomen: [Morbidly obese, Soft, nontender, no megaly, no rebound, no guarding, normal bowel sounds.] Extremities: [No clubbing, trace of bipedal edema, no cyanosis.] Neurological Exam: [No focal neurologic deficit.] Alert and oriented 3. No focal deficits. Skin: No rashes or petechiae. Psychiatric: Normal mood affect and normal mental status examination. - Labs CBC & Chem 7: 04/11/19 04:08 04/11/19 04:08 Labs: Abnormal Lab Results - Last 24 Hours (Table) 04/10/19 04/10/19 04/10/19 Range/Units 17:07 20:10 20:37 WBC (3.8-10.6) k/uL RBC (3.80-5.40) m/uL Hgb (11.4-16.0) gm/dL Hct (34.0-46.0) % MCV (80.0-100.0) fL Neutrophils # (1.3-7.7) k/uL Sodium 133 L (137-145) mmol/L Potassium (3.5-5.1) mmol/L BUN 50 H (7-17) mg/dL Creatinine 2.22 H (0.52-1.04) mg/dL Glucose 148 H (74-99) mg/dL POC Glucose (mg/dL) 125 H 186 H (75-99) mg/dL Calcium 8.1 L (8.4-10.2) mg/dL Troponin I (0.000-0.034) ng/mL 04/11/19 04/11/19 04/11/19 Range/Units 04:08 04:08 05:36 WBC 16.3 H (3.8-10.6) k/uL RBC 2.97 L (3.80-5.40) m/uL Hgb 9.7 L (11.4-16.0) gm/dL Hct 30.9 L (34.0-46.0) % MCV 103.8 H (80.0-100.0) fL Neutrophils # 13.0 H (1.3-7.7) k/uL Sodium 133 L (137-145) mmol/L Potassium 5.2 H (3.5-5.1) mmol/L BUN 51 H (7-17) mg/dL Creatinine 2.31 H (0.52-1.04) mg/dL Glucose 162 H (74-99) mg/dL POC Glucose (mg/dL) (75-99) mg/dL Calcium (8.4-10.2) mg/dL Troponin I 0.187 H* (0.000-0.034) ng/mL 04/11/19 04/11/19 Range/Units 07:15 12:00 WBC (3.8-10.6) k/uL RBC (3.80-5.40) m/uL Hgb (11.4-16.0) gm/dL Hct (34.0-46.0) % MCV (80.0-100.0) fL Neutrophils # (1.3-7.7) k/uL Sodium (137-145) mmol/L Potassium (3.5-5.1) mmol/L BUN (7-17) mg/dL Creatinine (0.52-1.04) mg/dL Glucose (74-99) mg/dL POC Glucose (mg/dL) 177 H 169 H (75-99) mg/dL Calcium (8.4-10.2) mg/dL Troponin I (0.000-0.034) ng/mL Microbiology - Last 24 Hours (Table) 04/09/19 15:15 Urine Culture - Final Urine,Voided 04/09/19 12:40 Blood Culture - Preliminary Blood No Growth after 24 hours Assessment and Plan Assessment: Impression: Symptomatic bradycardia with hypotension secondary to hyperkalemia. Acute kidney injury secondary to acute tumor necrosis and hypotension with bradycardia. Hyperkalemia secondary to acute kidney injury. Insulin dependent diabetes mellitus. History of coronary artery disease and previous stent placement Irritable bowel syndrome Chronic urinary incontinence History of cervical cancer and previous hysterectomy History of partial parathyroidectomy History of benign essential hypertension Chronic diastolic congestive heart failure Recommendation: Continue hemodynamic support with norepinephrine and titrate to a mean arterial pressure above 60. Placed a left radial arterial line for blood pressure monitoring. Monitor closely for worsening congestive heart failure. Use diuretics as needed. Patient is presently on Lasix. Continue GI and DVT prophylaxis. Continue bronchodilators. Continue empiric antibiotics. Urine culture and blood cultures are negative so far. Continue to monitor in the ICU. We'll continue to follow. Prognosis is guarded Time with Patient: Less than 30
--- NOTE | 2019-04-11 13:36 | ECHOF ---
Referral Reason:assess heart function MEASUREMENTS -------- HEIGHT: 927.1 cm WEIGHT: 27.2 kg BP: RVIDd: 3.9 cm (< 3.3) IVSd: 1.5 cm (0.6 - 1.1) LVIDd: 4.1 cm (3.9 - 5.3) LVPWd: 1.5 cm (0.6 - 1.1) IVSs: 2.1 cm LVIDs: 3.6 cm LVPWs: 1.5 cm LA Diam: 4.8 cm (2.7 - 3.8) LAESV Index (A-L): 29.05 ml/m Ao Diam: 2.9 cm (2.0 - 3.7) AV Cusp: 1.7 cm (1.5 - 2.6) LA Diam: 4.2 cm (2.7 - 3.8) MV EXCURSION: 18.351 mm (> 18.000) MV EF SLOPE: 38 mm/s (70 - 150) EPSS: 0.4 cm MV E Claudio: 0.85 m/s MV DecT: 218 ms MV A Claudio: 0.67 m/s MV E/A Ratio: 1.27 RAP: 5.00 mmHg RVSP: 72.64 mmHg FINDINGS -------- Sinus rhythm. Morbid Obesity This was a techncally difficult study with suboptimal views, , Lumason utilized for enhancement of images. The left ventricular size is normal. There is moderate concentric left ventricular hypertrophy. O verall left ventricular systolic function is low-normal with, an EF between 50 - 55 %. The right ventricle is mild to moderately enlarged. The left atrium is moderately dilated. LA is moderately dilated 34-39 ml/m2 The right atrial size is normal. 5.0mg OF Lumason UTLIZED: 2 OR MORE WALL SEGMENTS NOT VISUALIZED. There is mild aortic valve sclerosis. There is no evidence of aortic regurgitation. Mild mitral annular calcification present. Mild mitral regurgitation is present. Mild tricuspid regurgitation present. There is severe pulmonary hypertension. The right ventricul ar systolic pressure, as measured by Doppler, is 72.64mmHg. RVSP maybe overestimated There is no pulmonic regurgitation present. The aortic root size is normal. Echo free space represents a pericardial fat pad. CONCLUSIONS -------- 1. Sinus rhythm. 2. Morbid Obesity 3. This was a techncally difficult study with suboptimal views, , Lumason utilized for enhancement of images. 4. The left ventricular size is normal. 5. There is moderate concentric left ventricular hypertrophy. 6. Overall left ventricular systolic function is low-normal with, an EF between 50 - 55 %. 7. The right ventricle is mild to moderately enlarged. 8. The left atrium is moderately dilated. 9. LA is moderately dilated 34-39 ml/m2 10. The right atrial size is normal. 11. 5.0mg OF Lumason UTLIZED: 2 OR MORE WALL SEGMENTS NOT VISUALIZED. 12. There is mild aortic valve sclerosis. 13. Mild mitral annular calcification present. 14. Mild mitral regurgitation is present. 15. Mild tricuspid regurgitation present. 16. There is severe pulmonary hypertension. 17. The right ventricular systolic pressure, as measured by Doppler, is 72.64mmHg. 18. There is no pulmonic regurgitation present. 19. The aortic root size is normal. 20. Echo free space represents a pericardial fat pad. RECORD PRESS TENDER: Vicky Haywood RDCS
[2019-04-11] MEDS ORDERED: HEPARIN SODIUM,PORCINE 5,000 UNIT/ML 1 ML VIAL IV ONE (14:26)
[2019-04-11 15:12] LABS: Prothrombin Time 10.2 sec (9.0-12.0)
[2019-04-11] MEDS: HEPARIN SOD,PORK IN 0.45% NACL 25,000 UNIT in 0.45% NACL 1 250ML.BAG IV SCH (15:29)
[2019-04-11] MEDS: NOREPINEPHRINE 32 MG in SODIUM CHLORIDE 0.9% 218 ML IV SCH ×2 (15:45→22:04)
[2019-04-11 17:10] LABS: Glucose,Whole Blood 134 mg/dL (75-99)
[2019-04-11] MEDS: ONDANSETRON 4 MG/2 ML VIAL IVP PRN (17:49)
[2019-04-11 20:36] LABS: Glucose,Whole Blood 236 mg/dL (75-99)
--- NOTE | 2019-04-11 21:45 | XR ---
EXAMINATION TYPE: XR KUB portable 5 views DATE OF EXAM: 04/11/2019 7:44 PM CLINICAL HISTORY: Pain and nausea TECHNIQUE: 5 supine portable views were obtained, to complete the, abdominal pelvic examination. COMPARISON: 01/23/2017 FINDINGS: Bilateral femoral catheters noted. Scattered gas is seen in non-distended small bowel loops. Gas and fecal material is seen in non-diste nded colon. There is no visceromegaly or abnormal calcification appreciated. The lung bases are clear and the osseous structures are intact. Note: Supine radiography cannot exclude abnormal gas collections. IMPRESSION: No definite acute process.
[2019-04-11] MEDS: CHOLECALCIFEROL 1,000 UNIT TAB PO SCH (22:15)
[2019-04-11] MEDS: MONTELUKAST 10 MG TAB PO SCH (22:15)
[2019-04-11] MEDS: ATORVASTATIN 40 MG TAB PO SCH (22:16)
[2019-04-11] MEDS: INSULIN DETEMIR (LEVEMIR) 100 UNIT/ML SYR SQ SCH (22:18)
[2019-04-11] MEDS: ARIPiprazole 5 MG TAB PO SCH (22:23)
--- NOTE | 2019-04-11 23:12 | PCN ---
PROCEDURE NOTE OPERATIVE REPORT: Placement of a left radial arterial line. PREOPERATIVE DIAGNOSIS: Hypotension requiring pressors in the form of norepinephrine. POSTOPERATIVE DIAGNOSIS: Hypotension requiring pressors in the form of norepinephrine. ANESTHESIA: Used none deployed. PROCEDURE: The patient was placed in a supine position, the left wrist was prepared in a sterile fashion and drapes were applied. The left radial artery was palpated, cannulated, and a guidewire was placed. A Cook's catheter was inserted over the guidewire, the guidewire was removed. Good blood flow and good waveform were noted. Line was secured using 3.0 silk sutures. No evidence of any immediate complications. MMODL / IJN: [id number] /
[2019-04-12 04:54] LABS: Basophils # (A) 0.2 k/uL (0-0.2); Basophils % (A) 1 %; Eosinophils # (A) 0.3 k/uL (0-0.7); Eosinophils % (A) 2 %; HCT 28.6 % (34.0-46.0); HGB 8.7 gm/dL (11.4-16.0); Hypochromasia Moderate; Lymphocytes # (A) 1.1 k/uL (1.0-4.8); Lymphocytes % (A) 6 %; MCH 31.9 pg (25.0-35.0); MCHC 30.4 g/dL (31.0-37.0); MCV 104.9 fL (80.0-100.0); Macrocytosis Moderate; Mean Platelet Volume 7.8; Monocytes # (A) 0.8 k/uL (0-1.0); Monocytes % (A) 5 %; Neutrophils # (A) 15.7 k/uL (1.3-7.7); Neutrophils % (A) 86 %; Platelet Count 147 k/uL (150-450); RBC 2.73 m/uL (3.80-5.40); RDW 15.3 % (11.5-15.5); WBC 18.4 k/uL (3.8-10.6)
[2019-04-12 05:21] LABS: Calcium 8.4 mg/dL (8.4-10.2); Potassium 5.2 mmol/L (3.5-5.1)
[2019-04-12 05:26] LABS: Vancomycin,Random 30.9 ug/mL
[2019-04-12 06:51] LABS: Glucose,Whole Blood 145 mg/dL (75-99)
[2019-04-12] MEDS: GABAPENTIN 100 MG CAP PO SCH ×2 (07:00→21:56)
[2019-04-12] MEDS: INSULIN ASPART (NovoLOG) 100 UNIT/ML VIAL SQ SCH ×4 (07:00→22:16)
[2019-04-12] MEDS: SODIUM CHLORIDE 0.9% 1,000 ML IV SCH ×2 (07:01→12:18)
--- NOTE | 2019-04-12 08:13 | XR ---
EXAMINATION TYPE: XR chest 1V portable DATE OF EXAM: 04/12/2019 COMPARISON: Prior chest x-ray dated 04/11/2019 HISTORY: Aspiration, abnormal chest x-ray TECHNIQUE: Single frontal view of the chest is obtained. FINDINGS: The heart remains enlarged, there is prominence of the central vascularity and interstitiu m as on prior. No evident pneumothorax or sizable effusion. Exam somewhat limited by patient body hab itus. Postop change again seen at the thoracic inlet. There are overlying cardiac leads. IMPRESSION: Findings suggest pulmonary venous hypertension and interstitial edema. Pneumonia not exc luded. Possible underlying pulmonary artery hypertension.
[2019-04-12] MEDS: FERROUS SULFATE 325 MG TAB PO SCH (08:54)
[2019-04-12] MEDS: PANTOPRAZOLE 40 MG TABLET PO SCH (08:54)
[2019-04-12] MEDS: CITALOPRAM HYDROBROMIDE 10 MG TAB PO SCH (08:54)
[2019-04-12] MEDS: CLOPIDOGREL 75 MG TAB PO SCH (08:54)
[2019-04-12] MEDS: ASPIRIN 81 MG PO SCH (08:54)
[2019-04-12] MEDS: CITALOPRAM HYDROBROMIDE 20 MG TAB PO SCH (08:56)
[2019-04-12] MEDS: ISOSORBIDE MONONITRATE ER 30 MG TAB.ER.24H PO SCH ×2 (08:56→21:56)
[2019-04-12] MEDS ORDERED: MIDAZOLAM 2 MG/2 ML VIAL ONE (09:06)
[2019-04-12] MEDS ORDERED: LIDOCAINE 2% SYG (PF) 100 MG/5 ML ONE (09:06)
[2019-04-12] MEDS ORDERED: PROPOFOL 10 MG/ML 20 ML VIAL IV ONE (09:06)
[2019-04-12] MEDS ORDERED: AMIODARONE 360 MG in DEXTROSE 5% IN WATER 200 ML IV ONE ×2 (09:15)
[2019-04-12] MEDS ORDERED: LIDOCAINE 1% INJ 10MG/ML (20 ML MDV) ONE (09:40)
[2019-04-12] MEDS ORDERED: VERAPAMIL 2.5 MG/ML 2 ML AMP ONE (09:40)
[2019-04-12] MEDS: BUDESONIDE 1 MG/2 ML NEBU INHALATION SCH ×2 (09:41→19:11)
[2019-04-12 09:55] LABS: HCT 27.5 % (34.0-46.0); HGB 8.3 gm/dL (11.4-16.0); Hypochromasia Marked; MCH 32.3 pg (25.0-35.0); MCV 107.6 fL (80.0-100.0); Macrocytosis Marked; Mean Platelet Volume 7.8; Platelet Count 156 k/uL (150-450); RBC 2.56 m/uL (3.80-5.40); RDW 15.5 % (11.5-15.5)
[2019-04-12] MEDS ORDERED: SODIUM CHLORIDE 0.9% 250 ML IV ONE (10:05)
[2019-04-12] MEDS ORDERED: IV FLUID CONTINUATION 950 ML IV ONE (10:05)
[2019-04-12 10:07] LABS: Partial Thromboplastin Time 58.1 sec (22.0-30.0); Prothrombin Time 10.3 sec (9.0-12.0)
--- NOTE | 2019-04-12 10:18 | XR ---
EXAMINATION TYPE: XR chest 1V portable DATE OF EXAM: 04/12/2019 COMPARISON: Prior chest x-ray 04/12/2019 HISTORY: Endotracheal tube placement, NG tube placement TECHNIQUE: Single frontal view of the chest is obtained. FINDINGS: There is been interval placement of endotracheal tube and NG tube which are overlying appr opriate positions. Patient is rotated. No other significant interval change is evident. There are ove rlying artifacts. There is motion on the exam. IMPRESSION: No evident complication status post intubation.
[2019-04-12 10:19] LABS: Albumin 2.3 g/dL (3.5-5.0); Calcium 7.5 mg/dL (8.4-10.2); Potassium 4.9 mmol/L (3.5-5.1); Total Bilirubin 0.6 mg/dL (0.2-1.3); Total Protein 4.1 g/dL (6.3-8.2)
[2019-04-12] MEDS ORDERED: LIDOCAINE 1% INJ 10MG/ML (20 ML MDV) SQ ONE (10:32)
[2019-04-12] MEDS ORDERED: RX INFO: IV CONTRAST WAS GIVEN 1 EACH MISC MISCELLANE PRN (10:52)
[2019-04-12 10:54] LABS: Band Neutrophils % 4 %; Eosinophils # (M) 0.69 k/uL (0-0.7); Metamyelocytes # (M) 0.23 k/uL (0); Metamyelocytes % 1 %; Myelocytes % 7 %; Neutrophils % (M) 75 %; Nucleated Red Blood Cells 1 /100 WBC (0-0); Total Cells Counted 200
[2019-04-12] MEDS ORDERED: IOPAMIDOL-370 150ML BTL INJ ONE (10:54)
[2019-04-12 10:56] LABS: Lymphocytes # (M) 1.37 k/uL (1.0-4.8); Monocytes # (M) 1.37 k/uL (0-1.0); WBC 22.9 k/uL (3.8-10.6)
[2019-04-12] MEDS ORDERED: SODIUM CHLORIDE 0.9% 1,000 ML IV SCH (11:00)
--- NOTE | 2019-04-12 11:00 | P.PN ---
Subjective Patient is seen in follow-up for acute kidney injury. She has undergone 2 treatments of hemodialysis so far. Last treatment was April 10. Patient went into V. tach this morning and had to be shocked. She was also noted to be severely hypotensive. She is currently on Levophed. She was intubated as well. She will be going down for cardiac catheterization today. Vital signs are stable - currently on Levophed. General: The patient appeared well nourished and normally developed. Intubated. HEENT: Head exam is unremarkable. Neck is without jugular venous distension. LUNGS: Lungs are clear to auscultation and percussion. Breath sounds decreased. HEART: Rate and Rhythm are regular. First and second heart sounds normal. No murmurs, rubs or gallops. ABDOMEN: Abdominal exam reveals normal bowel sounds. Obese. EXTREMITITES: 2+ edema. Objective - Vital Signs Vital signs: Vital Signs Temp 98.1 F 04/12/19 04:00 Pulse 96 04/12/19 07:00 Resp 25 H 04/12/19 07:00 BP 125/68 04/11/19 13:30 Pulse Ox 93 L 04/12/19 07:00 Intake & Output 04/11/19 04/12/19 04/12/19 18:59 06:59 18:59 Intake Total 1366.291 884.130 125.243 Output Total 315 390 20 Balance 1051.291 494.130 105.243 Weight 166 kg Intake: IV 1226 855 78 Levofloxacin 500Mg-D5w 100 Pmx 500 mg In Dextrose/ Water 1 100ml.bag @ 100 mls/hr IVPB Q48H [facility] Rx#: [id number] Sodium Chloride 0.9% 1, 625 825 75 000 ml @ 75 mls/hr IV . [id number] [facility] Rx#:[id number] Vancomycin 2,250 mg In 501 Sodium Chloride 0.9% 500 ml 500 ml @ 167 mls/hr IVPB ONCE ONE Rx#: [id number] sodium chloride 30 3 Intake, IV Titration 140.291 29.130 47.243 Amount Norepinephrine 32 mg In 140.291 29.130 47.243 Sodium Chloride 0.9% 218 ml @ 0.05 MCG/KG/MIN 3. 732 mls/hr IV .Q24H [facility] Rx#:[id number] Output: Urine 315 390 20 Other: Voiding Method Indwelling Catheter Indwelling Catheter ABP, PAP, CO, CI - Last Documented Arterial Blood Pressure 115/41 - Labs CBC & Chem 7: 04/12/19 09:37 04/12/19 09:37 Labs: Abnormal Lab Results - Last 24 Hours (Table) 04/11/19 04/11/19 04/11/19 Range/Units 12:00 12:00 17:09 WBC (3.8-10.6) k/uL RBC (3.80-5.40) m/uL Hgb (11.4-16.0) gm/dL Hct (34.0-46.0) % MCV (80.0-100.0) fL MCHC (31.0-37.0) g/dL Plt Count (150-450) k/uL Neutrophils # (1.3-7.7) k/uL Macrocytosis APTT (22.0-30.0) sec Sodium (137-145) mmol/L Potassium (3.5-5.1) mmol/L Carbon Dioxide (22-30) mmol/L BUN (7-17) mg/dL Creatinine (0.52-1.04) mg/dL Glucose (74-99) mg/dL POC Glucose (mg/dL) 169 H 134 H (75-99) mg/dL Calcium (8.4-10.2) mg/dL AST (14-36) U/L Troponin I 1.380 H* (0.000-0.034) ng/mL Total Protein (6.3-8.2) g/dL Albumin (3.5-5.0) g/dL 04/11/19 04/11/19 04/12/19 Range/Units 20:34 21:55 04:35 WBC 18.4 H (3.8-10.6) k/uL RBC 2.73 L (3.80-5.40) m/uL Hgb 8.7 L (11.4-16.0) gm/dL Hct 28.6 L (34.0-46.0) % MCV 104.9 H (80.0-100.0) fL MCHC 30.4 L (31.0-37.0) g/dL Plt Count 147 L (150-450) k/uL Neutrophils # 15.7 H (1.3-7.7) k/uL Macrocytosis APTT 58.8 H (22.0-30.0) sec Sodium (137-145) mmol/L Potassium (3.5-5.1) mmol/L Carbon Dioxide (22-30) mmol/L BUN (7-17) mg/dL Creatinine (0.52-1.04) mg/dL Glucose (74-99) mg/dL POC Glucose (mg/dL) 236 H (75-99) mg/dL Calcium (8.4-10.2) mg/dL AST (14-36) U/L Troponin I (0.000-0.034) ng/mL Total Protein (6.3-8.2) g/dL Albumin (3.5-5.0) g/dL 04/12/19 04/12/19 04/12/19 Range/Units 04:35 04:35 04:35 WBC (3.8-10.6) k/uL RBC (3.80-5.40) m/uL Hgb (11.4-16.0) gm/dL Hct (34.0-46.0) % MCV (80.0-100.0) fL MCHC (31.0-37.0) g/dL Plt Count (150-450) k/uL Neutrophils # (1.3-7.7) k/uL Macrocytosis APTT 49.1 H (22.0-30.0) sec Sodium 135 L (137-145) mmol/L Potassium 5.2 H (3.5-5.1) mmol/L Carbon Dioxide (22-30) mmol/L BUN 47 H (7-17) mg/dL Creatinine 2.16 H (0.52-1.04) mg/dL Glucose 153 H (74-99) mg/dL POC Glucose (mg/dL) (75-99) mg/dL Calcium (8.4-10.2) mg/dL AST (14-36) U/L Troponin I 5.110 H* (0.000-0.034) ng/mL Total Protein (6.3-8.2) g/dL Albumin (3.5-5.0) g/dL 04/12/19 04/12/19 04/12/19 Range/Units 06:49 09:37 09:37 WBC 23.1 H (3.8-10.6) k/uL RBC 2.56 L (3.80-5.40) m/uL Hgb 8.3 L (11.4-16.0) gm/dL Hct 27.5 L (34.0-46.0) % MCV 107.6 H (80.0-100.0) fL MCHC 30.0 L (31.0-37.0) g/dL Plt Count (150-450) k/uL Neutrophils # (1.3-7.7) k/uL Macrocytosis Marked A APTT 58.1 H (22.0-30.0) sec Sodium (137-145) mmol/L Potassium (3.5-5.1) mmol/L Carbon Dioxide (22-30) mmol/L BUN (7-17) mg/dL Creatinine (0.52-1.04) mg/dL Glucose (74-99) mg/dL POC Glucose (mg/dL) 145 H (75-99) mg/dL Calcium (8.4-10.2) mg/dL AST (14-36) U/L Troponin I (0.000-0.034) ng/mL Total Protein (6.3-8.2) g/dL Albumin (3.5-5.0) g/dL 04/12/19 Range/Units 09:37 WBC (3.8-10.6) k/uL RBC (3.80-5.40) m/uL Hgb (11.4-16.0) gm/dL Hct (34.0-46.0) % MCV (80.0-100.0) fL MCHC (31.0-37.0) g/dL Plt Count (150-450) k/uL Neutrophils # (1.3-7.7) k/uL Macrocytosis APTT (22.0-30.0) sec Sodium 134 L (137-145) mmol/L Potassium (3.5-5.1) mmol/L Carbon Dioxide 19 L (22-30) mmol/L BUN 43 H (7-17) mg/dL Creatinine 2.00 H (0.52-1.04) mg/dL Glucose 211 H (74-99) mg/dL POC Glucose (mg/dL) (75-99) mg/dL Calcium 7.5 L (8.4-10.2) mg/dL AST 49 H (14-36) U/L Troponin I (0.000-0.034) ng/mL Total Protein 4.1 L (6.3-8.2) g/dL Albumin 2.3 L (3.5-5.0) g/dL Microbiology - Last 24 Hours (Table) 04/09/19 12:40 Blood Culture - Preliminary Blood No Growth after 48 hours Assessment and Plan Plan: Assessment: 1. Acute kidney injury secondary to ATN secondary to hypotension and bradycardia. Creatinine 5.6 on admission. Baseline near 1. No proteinuria on UA. Kidney ultrasound revealed small left kidney without any hydronephrosis. Renal function is stable. Creatinine 2.0 today. 2. Hyperkalemia secondary to acute kidney injury and further worsened with the use of lisinopril. Improved postdialysis. 3. Hyponatremia secondary to acute kidney injury. Stable. 4. Insulin-dependent diabetes mellitus. 5. Hypotension maintained on Levophed. 6. Bradycardia secondary to hyperkalemia s/p dopamine. Cardiology following. 7. V. tach arrest this morning. Currently on heparin and amiodarone drip. Scheduled for cardiac catheterization today. 8. Metabolic acidosis secondary to acute kidney injury. Plan: Although creatinine is stable, patient is oliguric and will be receiving IV contrast today. I will schedule her for hemodialysis treatment after cardiac catheterization today. This will be her third hemodialysis treatment this admission. Continue to assess on daily basis for further need for renal replacement therapy. Wean vasopressors. Avoid nephrotoxins. Maintain IV fluids.
[2019-04-12 11:02] LABS: Toxic Granulation Present
--- NOTE | 2019-04-12 11:19 | PN ---
PROGRESS NOTE Carla is a 74-year-old lady who was admitted to hospital with symptomatic bradycardia secondary to hyperkalemia and had chest pain and ruled in for myocardial infarction. This morning she suddenly went into ventricular tachycardia fibrillation and underwent CPR. She underwent multiple shocks, intravenous amiodarone and lidocaine as per protocol. She ended up in atrial fibrillation with somewhat of a poorly controlled ventricular rate and we had to intubate her. The patient will undergo emergent cardiac catheterization. PHYSICAL EXAMINATION: On exam, her heart rate was 90 beats per minute. At the end of the course, her heart rate was 90 beats per minute. Blood pressure was 120/72. Chest exam reveals diminished air entry bilaterally. Heart exam reveals first and second heart sounds, irregular rhythm. Exam of extremities reveals bilateral pitting edema. Her labs show a hemoglobin of 8.3 potassium is 4.9, BUN is 43, creatinine is 2. ASSESSMENT: 1. Ventricular tachycardia fibrillation. 2. Atrial fibrillation. 3. Non ST-segment elevation myocardial infarction. PLAN: Patient will undergo emergent cardiac catheterization by Dr. Mancera, her primary bi technical lead with a view to performing angioplasty. MMODL / IJN: [id number] /
[2019-04-12 11:54] LABS: Glucose,Whole Blood 222 mg/dL (75-99)
[2019-04-12] MEDS: AMIODARONE 300 MG in DEXTROSE 5% IN WATER 250 ML IV SCH ×4 (12:17→15:55)
--- NOTE | 2019-04-12 12:59 | P.PN ---
Subjective Progress Note Date: 04/12/19 Principal diagnosis: Symptomatic bradycardia and hypotension with hyperkalemia This is a 74-year-old female with known history of multiple medical problems including diastolic congestive heart failure, hypertension, diabetes, coronary artery disease and previous stent placement, chronic low back pain, urinary incontinence, irritable bowel syndrome, cervical cancer and previous hysterectomy, patient was sent to the ER last night from the [facility] on the [place] with complaints of shortness of breath. Patient has been complaining of shortness of breath for the last 2-3 days. She was also complaining of right mid abdominal and right flank pain. She had no chest pain, no nausea no vomiting, no fever no chills no hemoptysis. Patient was feeling extremely tired and exhausted. Upon evaluation in the ER, patient was noted to be profoundly bradycardic, heart rate ranging between 40 and 60. Blood pressure on arrival was 76/61. Patient had a right femoral triple-lumen catheter placed by the ER physician, and she had fluid boluses at least 2 L were given in the form of 0.9 normal saline. Patient was placed on dopamine for her profound bradycardia, and she is presently on dopamine at 5 mcg/kg/m. Remained hypotensive, hence norepinephrine at 0.04 mcg/kg/m was added. Maintained on IV fluid at 100 mL/h, admitted to the ICU, and this consult was initiated. I evaluated the patient in the ICU, kept her on dopamine and norepinephrine, and she was seen by nephrology on consultation last night, patient underwent stat hemodialysis mostly because of her hyperkalemia and acute kidney injury. Reevaluated today on 04/11/2019, patient remains on norepinephrine at 0.04 mcg/ kg/m, blood pressure remains marginal, hence a left radial arterial line was placed. Patient is off dopamine, she is in sinus rhythm, and no further episodes of bradycardia. She is alert oriented 3, according to the nurse she had intermittent episodes of confusion, but her mental status seems to be intact this morning. Chest x-ray showed cardiomegaly and interstitial edema with bibasilar atelectasis. Electrolytes are much improved potassium is down to 5.2 BUN is 51 creatinine 2.31, no plans for dialysis today. WBC count is 16.3 hemoglobin is 9.7. Patient denies any shortness of breath, she feels generally weak. Patient was reevaluated today on 04/12/2019. Patient developed sustained v entricular tachycardia earlier this morning, patient was shocked about 6 times, she was given lidocaine and amiodarone as per cardiology at bedside, patient was intubated, and she was taken down for a cardiac catheterization by cardiology. I reviewed the ventilator settings, and I recommended tidal volume of 500, assist control rate of 20, FiO2 of 100% and PEEP of 5. ABG is pending. Cardiac catheterization report is pending but I was informed that she had no significant coronary artery disease to speak of. Chest x-ray showed bibasilar atelectasis, possibly infiltrates, patient may have developed some component of aspiration pneumonia. Labs today showed leukocytosis with WBC count of 22.9 hemoglobin 8.3, electrolytes are normal, BUN is 43 creatinine 2.0. Cardiology October he was concerned about the possibility of non-ST segment elevation myocardial infarction. Later on patient was noted to have atrial fibrillation with poorly controlled ventricular rate. And again her cardiac catheterization official report is pending Objective - Vital Signs Vital signs: Vital Signs Temp 98.1 F 04/12/19 04:00 Pulse 96 04/12/19 07:00 Resp 25 H 04/12/19 07:00 BP 125/68 04/11/19 13:30 Pulse Ox 93 L 04/12/19 07:00 Intake & Output 04/11/19 04/12/19 04/12/19 18:59 06:59 18:59 Intake Total 1366.291 884.130 225.243 Output Total 315 390 20 Balance 1051.291 494.130 205.243 Weight 166 kg Intake: IV 1226 855 178 Levofloxacin 500Mg-D5w 100 Pmx 500 mg In Dextrose/ Water 1 100ml.bag @ 100 mls/hr IVPB Q48H [facility] Rx#: [id number] Sodium Chloride 0.9% 1, 625 825 75 000 ml @ 75 mls/hr IV . [id number] [facility] Rx#:[id number] Vancomycin 2,250 mg In 501 Sodium Chloride 0.9% 500 ml 500 ml @ 167 mls/hr IVPB ONCE ONE Rx#: [id number] sodium chloride 30 3 Intake, IV Titration 140.291 29.130 47.243 Amount Norepinephrine 32 mg In 140.291 29.130 47.243 Sodium Chloride 0.9% 218 ml @ 0.05 MCG/KG/MIN 3. 732 mls/hr IV .Q24H [facility] Rx#:[id number] Output: Urine 315 390 20 Other: Voiding Method Indwelling Catheter Indwelling Catheter ABP, PAP, CO, CI - Last Documented Arterial Blood Pressure 115/41 - Exam Physical Exam: Revealed a 74-year-old female morbidly obese, on mechanical ventilation, sedated. Head: Atraumatic, normocephalic. Endotracheal tube and orogastric tube are intact. HEENT:[Neck is supple.] [No neck masses.] [No thyromegaly.] [No JVD.] PERRLA, EOMI, no icterus. Chest: [Diminished breath sounds crackles and rhonchi noted bilaterally Cardiac Exam: Distant S1 and S2, no S3 gallop, no murmur. No gallop.] Abdomen: [Morbidly obese, Soft, nontender, no megaly, no rebound, no guarding, normal bowel sounds.] Extremities: [No clubbing, trace of bipedal edema, no cyanosis.] Neurological Exam: Sedated, on propofol, cannot be assessed. Skin: No rashes or petechiae. Psychiatric: Cannot be assessed. - Labs CBC & Chem 7: 04/12/19 09:37 04/12/19 09:37 Labs: Abnormal Lab Results - Last 24 Hours (Table) 04/11/19 04/11/19 04/11/19 Range/Units 12:00 17:09 20:34 WBC (3.8-10.6) k/uL RBC (3.80-5.40) m/uL Hgb (11.4-16.0) gm/dL Hct (34.0-46.0) % MCV (80.0-100.0) fL MCHC (31.0-37.0) g/dL Plt Count (150-450) k/uL Neutrophils # (1.3-7.7) k/uL Neutrophils # (Manual) (1.3-7.7) k/uL Monocytes # (Manual) (0-1.0) k/uL Metamyelocytes # (Man) (0) k/uL Myelocytes # (Manual) (0) k/uL Nucleated RBCs (0-0) /100 WBC Macrocytosis APTT (22.0-30.0) sec Sodium (137-145) mmol/L Potassium (3.5-5.1) mmol/L Carbon Dioxide (22-30) mmol/L BUN (7-17) mg/dL Creatinine (0.52-1.04) mg/dL Glucose (74-99) mg/dL POC Glucose (mg/dL) 134 H 236 H (75-99) mg/dL Calcium (8.4-10.2) mg/dL AST (14-36) U/L Troponin I 1.380 H* (0.000-0.034) ng/mL Total Protein (6.3-8.2) g/dL Albumin (3.5-5.0) g/dL 04/11/19 04/12/19 04/12/19 Range/Units 21:55 04:35 04:35 WBC 18.4 H (3.8-10.6) k/uL RBC 2.73 L (3.80-5.40) m/uL Hgb 8.7 L (11.4-16.0) gm/dL Hct 28.6 L (34.0-46.0) % MCV 104.9 H (80.0-100.0) fL MCHC 30.4 L (31.0-37.0) g/dL Plt Count 147 L (150-450) k/uL Neutrophils # 15.7 H (1.3-7.7) k/uL Neutrophils # (Manual) (1.3-7.7) k/uL Monocytes # (Manual) (0-1.0) k/uL Metamyelocytes # (Man) (0) k/uL Myelocytes # (Manual) (0) k/uL Nucleated RBCs (0-0) /100 WBC Macrocytosis APTT 58.8 H (22.0-30.0) sec Sodium 135 L (137-145) mmol/L Potassium 5.2 H (3.5-5.1) mmol/L Carbon Dioxide (22-30) mmol/L BUN 47 H (7-17) mg/dL Creatinine 2.16 H (0.52-1.04) mg/dL Glucose 153 H (74-99) mg/dL POC Glucose (mg/dL) (75-99) mg/dL Calcium (8.4-10.2) mg/dL AST (14-36) U/L Troponin I (0.000-0.034) ng/mL Total Protein (6.3-8.2) g/dL Albumin (3.5-5.0) g/dL 04/12/19 04/12/19 04/12/19 Range/Units 04:35 04:35 06:49 WBC (3.8-10.6) k/uL RBC (3.80-5.40) m/uL Hgb (11.4-16.0) gm/dL Hct (34.0-46.0) % MCV (80.0-100.0) fL MCHC (31.0-37.0) g/dL Plt Count (150-450) k/uL Neutrophils # (1.3-7.7) k/uL Neutrophils # (Manual) (1.3-7.7) k/uL Monocytes # (Manual) (0-1.0) k/uL Metamyelocytes # (Man) (0) k/uL Myelocytes # (Manual) (0) k/uL Nucleated RBCs (0-0) /100 WBC Macrocytosis APTT 49.1 H (22.0-30.0) sec Sodium (137-145) mmol/L Potassium (3.5-5.1) mmol/L Carbon Dioxide (22-30) mmol/L BUN (7-17) mg/dL Creatinine (0.52-1.04) mg/dL Glucose (74-99) mg/dL POC Glucose (mg/dL) 145 H (75-99) mg/dL Calcium (8.4-10.2) mg/dL AST (14-36) U/L Troponin I 5.110 H* (0.000-0.034) ng/mL Total Protein (6.3-8.2) g/dL Albumin (3.5-5.0) g/dL 04/12/19 04/12/19 04/12/19 Range/Units 09:37 09:37 09:37 WBC 22.9 H (3.8-10.6) k/uL RBC 2.56 L (3.80-5.40) m/uL Hgb 8.3 L (11.4-16.0) gm/dL Hct 27.5 L (34.0-46.0) % MCV 107.6 H (80.0-100.0) fL MCHC 30.0 L (31.0-37.0) g/dL Plt Count (150-450) k/uL Neutrophils # (1.3-7.7) k/uL Neutrophils # (Manual) 18.00 H (1.3-7.7) k/uL Monocytes # (Manual) 1.37 H (0-1.0) k/uL Metamyelocytes # (Man) 0.23 H (0) k/uL Myelocytes # (Manual) 1.60 H (0) k/uL Nucleated RBCs 1 H (0-0) /100 WBC Macrocytosis Marked A APTT 58.1 H (22.0-30.0) sec Sodium 134 L (137-145) mmol/L Potassium (3.5-5.1) mmol/L Carbon Dioxide 19 L (22-30) mmol/L BUN 43 H (7-17) mg/dL Creatinine 2.00 H (0.52-1.04) mg/dL Glucose 211 H (74-99) mg/dL POC Glucose (mg/dL) (75-99) mg/dL Calcium 7.5 L (8.4-10.2) mg/dL AST 49 H (14-36) U/L Troponin I (0.000-0.034) ng/mL Total Protein 4.1 L (6.3-8.2) g/dL Albumin 2.3 L (3.5-5.0) g/dL 04/12/19 Range/Units 11:53 WBC (3.8-10.6) k/uL RBC (3.80-5.40) m/uL Hgb (11.4-16.0) gm/dL Hct (34.0-46.0) % MCV (80.0-100.0) fL MCHC (31.0-37.0) g/dL Plt Count (150-450) k/uL Neutrophils # (1.3-7.7) k/uL Neutrophils # (Manual) (1.3-7.7) k/uL Monocytes # (Manual) (0-1.0) k/uL Metamyelocytes # (Man) (0) k/uL Myelocytes # (Manual) (0) k/uL Nucleated RBCs (0-0) /100 WBC Macrocytosis APTT (22.0-30.0) sec Sodium (137-145) mmol/L Potassium (3.5-5.1) mmol/L Carbon Dioxide (22-30) mmol/L BUN (7-17) mg/dL Creatinine (0.52-1.04) mg/dL Glucose (74-99) mg/dL POC Glucose (mg/dL) 222 H (75-99) mg/dL Calcium (8.4-10.2) mg/dL AST (14-36) U/L Troponin I (0.000-0.034) ng/mL Total Protein (6.3-8.2) g/dL Albumin (3.5-5.0) g/dL Microbiology - Last 24 Hours (Table) 04/09/19 12:40 Blood Culture - Preliminary Blood No Growth after 48 hours Assessment and Plan Assessment: Impression: Acute hypoxic respiratory failure secondary to ventricular tachycardia followed by atrial fibrillation with RVR requiring intubation and mechanical ventilation. And shocking about 6 times. Symptomatic bradycardia with hypotension secondary to hyperkalemia. Acute kidney injury secondary to acute tumor necrosis and hypotension with bradycardia. Hyperkalemia secondary to acute kidney injury. Insulin dependent diabetes mellitus. History of coronary artery disease and previous stent placement Irritable bowel syndrome Chronic urinary incontinence History of cervical cancer and previous hysterectomy History of partial parathyroidectomy History of benign essential hypertension Chronic diastolic congestive heart failure Status post cardiac catheterization, official report is pending. Recommendation: Continue ventilatory support, and adjust ventilator settings accordingly. Start the nutritional support via enteral feeding. Continue GI and DVT prophylaxis. Continue bronchodilators. Continue antibiotics. , Is not clear whether the patient may have aspirated. Continue to monitor in the ICU. Critical care time is 34 minutes. We'll continue to follow. Prognosis is guarded Time with Patient: Greater than 30
--- NOTE | 2019-04-12 13:16 | CC ---
CARDIAC CATHETERIZATION REPORT PERFORMING PHYSICIAN: Hermes Mancera MD PROCEDURE PERFORMED: Selective right and left coronary angiogram. INDICATIONS: This is a 74-year-old female patient with history of coronary artery disease and known chronic total occlusion of the left circumflex as well as known stenting of the LAD who was admitted to the hospital initially with bradycardia and was found to be hyperkalemic as well as in renal failure. Dialysis was initiated and the patient's bradycardia was recovered. She developed chest discomfort and subsequently, the troponin came into be abnormal. This morning, she did have an episode of V-tach/V-fib, required cardioversion. Because of that, a heart catheterization was advised. APPROACH: Right common femoral artery. COMPLICATIONS: None. LEVEL OF SEDATION: Moderate with a sedation length of 17 minutes. PROCEDURE DESCRIPTION: After obtaining an informed consent, the patient was brought to the cardiac labor relations officer. Right common femoral artery was cannulated using micropuncture technique. The micropuncture wire passed easily. Then I placed a 6-Turkmen sheath 23 cm at the right common femoral artery. After that, I did selective right and left coronary angiogram using a JR4 and JL4 catheters. I did not perform left heart catheterization and I did not cross the aortic valve. The procedure was completed without any complication. SELECTIVE CORONARY ANGIOGRAM: 1. The right coronary artery is a large caliber vessel and it is a dominant vessel. The RCA appeared to have mild disease only in the midportion. Distally bifurcates into PDA and PLV branches. Both appeared to be angiographically normal. 2. The distal left main appeared to have mild disease only. Bifurcates into an occluded left circumflex as well as left anterior descending artery. 3. The left circumflex is chronically occluded which is known from before. 4. The LAD: The proximal LAD appeared to be stented with mild in-stent restenosis. The mid and distal LAD appeared to be angiographically normal. The LAD gives rise to the first and second diagonal branches. They have high takeoff. The ostial of the first diagonal has a lesion that appeared to be in the range of 90% but is a small caliber vessel. CONCLUSION: 1. Mild disease involving the right coronary artery. 2. Mild disease involving the left main coronary artery. 3. Mild disease involving the proximal left anterior descending artery. 4. Chronic total occlusion of the left circumflex which is known from before. POSTPROCEDURE MANAGEMENT: 1. Given the above anatomy, I did advise maximized medical treatment. 2. Standard groin care. 3. Follow up with the patient. MMODL / IJN: [id number] /
--- NOTE | 2019-04-12 14:46 | PN ---
PROGRESS NOTE This is a 74-year-old lady who is admitted to hospital with symptomatic bradycardia secondary to severe hyperkalemia. The patient resumed her sinus rhythm and got better, rhythm najera, but yesterday she had an episode of chest pain with mild elevation of troponin, was started on heparin. This morning developed a ventricular tachycardia fibrillation, had to be defibrillated. She underwent cardiac catheterization, which did not reveal significant obstructive CAD to explain her acute myocardial infarction, ventricular tachycardia fibrillation. Her echocardiogram done on this admission revealed normal LV systolic function with elevated RV systolic pressure which could be an overestimation and the right ventricle was mildly enlarged. Given the unexplained elevated troponin and her initial presentation of shortness of breath, will consider a CT scan of the chest to rule out pulmonary embolism. In the meantime, we will continue with the heparin. I discussed these issues with the family. Patient has renal failure and the contrast might make it worse. MMODL / IJN: [id number] /
[2019-04-12] MEDS ORDERED: PROPOFOL 1,000 MG in EMPTY BAG 1 BAG IV SCH (15:45)
[2019-04-12] MEDS ORDERED: METOPROLOL TARTRATE 5 MG/5 ML VIAL IVP STA (15:57)
[2019-04-12] MEDS ORDERED: METOPROLOL TARTRATE 25 MG TAB PO STA (15:57)
[2019-04-12 17:25] LABS: ABG Base Excess -5.9 mmol/L; ABG HCO3 19 mmol/L (21-25); ABG PCO2 30 mmHg (35-45); ABG PH 7.41 (7.35-7.45); ABG PO2 >400 mmHg (83-108); ABG TCO2 20 mmol/L (19-24); Allen Test Performed? Yes
--- NOTE | 2019-04-12 18:02 | P.PN ---
Subjective Progress Note Date: 04/12/19 Principal diagnosis: Sinus bradycardia/hypotension/hyperkalemia 74-year-old female with known history of multiple medical problems including diastolic congestive heart failure, hypertension, diabetes, coronary artery disease and previous stent placement, chronic low back pain, urinary incontinence, irritable bowel syndrome, cervical cancer and previous hysterectomy, patient was sent to the ER last night from the [facility] [place] with complaints of shortness of breath. Patient has been complaining of shortness of breath for the last 2-3 days. She was also complaining of right mid abdominal and right flank pain. She had no chest pain, no nausea no vomiting, no fever no chills no hemoptysis. Patient was feeling extremely tired and exhausted. Upon evaluation in the ER, patient was noted to be profoundly bradycardic, heart rate ranging between 40 and 60. Blood pressure on arrival was 76/61. Patient had a right femoral triple-lumen catheter placed by the ER physician, and she had fluid boluses at least 2 L were given in the form of 0.9 normal saline. Patient was placed on dopamine for her profound bradycardia, and she is presently on dopamine at 5 mcg/kg/m. Remained hypotensive, hence norepinephrine at 0.04 mcg/kg/m was added. Maintained on IV fluid at 100 mL/h, admitted to the ICU, and this consult was initiated. I evaluated the patient in the ICU, kept her on dopamine and norepinephrine, and she was seen by nephrology on consultation last night, patient underwent stat hemodialysis mostly because of her hyperkalemia and acute kidney injury. 04/12/2019. Patient developed sustained ventricular tachycardia earlier this morning, patient was shocked about 6 times, she was given lidocaine and amiodarone as per cardiology at bedside, patient was intubated, and she was taken down for a cardiac catheterization by cardiology. I reviewed the ventilator settings, and I recommended tidal volume of 500, assist control rate of 20, FiO2 of 100% and PEEP of 5. ABG is pending. Cardiac catheterization report is pending but I was informed that she had no significant coronary artery disease to speak of. Chest x-ray showed bibasilar atelectasis, possibly infiltrates, patient may have developed some component of aspiration pneumonia. Labs today showed leukocytosis with WBC count of 22.9 hemoglobin 8.3, electrolytes are normal, BUN is 43 creatinine 2.0. Cardiology October he was concerned about the possibility of non-ST segment elevation myocardial infarction. Later on patient was noted to have atrial fibrillation with poorly controlled ventricular rate. Objective - Vital Signs Vital signs: Vital Signs Temp 98.1 F 04/12/19 04:00 Pulse 96 04/12/19 07:00 Resp 25 H 04/12/19 07:00 BP 125/68 04/11/19 13:30 Pulse Ox 93 L 04/12/19 07:00 Intake & Output 04/11/19 04/12/19 04/12/19 18:59 06:59 18:59 Intake Total 1366.291 884.130 225.243 Output Total 315 390 20 Balance 1051.291 494.130 205.243 Weight 166 kg Intake: IV 1226 855 178 Levofloxacin 500Mg-D5w 100 Pmx 500 mg In Dextrose/ Water 1 100ml.bag @ 100 mls/hr IVPB Q[facility]H [facility] Rx#: [id number] Sodium Chloride 0.9% 1, 625 825 75 000 ml @ 75 mls/hr IV . [id number] [facility] Rx#:[id number] Vancomycin 2,250 mg In 501 Sodium Chloride 0.9% 500 ml 500 ml @ 167 mls/hr IVPB ONCE ONE Rx#: [id number] sodium chloride 30 3 Intake, IV Titration 140.291 29.130 47.243 Amount Norepinephrine 32 mg In 140.291 29.130 47.243 Sodium Chloride 0.9% 218 ml @ 0.05 MCG/KG/MIN 3. 732 mls/hr IV .Q24H [facility] Rx#:[id number] Output: Urine 315 390 20 Other: Voiding Method Indwelling Catheter Indwelling Catheter ABP, PAP, CO, CI - Last Documented Arterial Blood Pressure 115/41 - Exam 74-year-old female morbidly obese, on mechanical ventilation, sedated. Head: Atraumatic, normocephalic. Endotracheal tube and orogastric tube are intact. HEENT:[Neck is supple.] [No neck masses.] [No thyromegaly.] [No JVD.] PERRLA, EOMI, no icterus. Chest: [Diminished breath sounds crackles and rhonchi noted bilaterally Cardiac Exam: Distant S1 and S2, no S3 gallop, no murmur. No gallop.] Abdomen: [Morbidly obese, Soft, nontender, no megaly, no rebound, no guarding, normal bowel sounds.] Extremities: [No clubbing, trace of bipedal edema, no cyanosis.] Neurological Exam: Sedated. - Labs CBC & Chem 7: 04/12/19 09:37 04/12/19 09:37 Labs: Abnormal Lab Results - Last 24 Hours (Table) 04/11/19 04/11/19 04/11/19 Range/Units 12:00 12:00 17:09 WBC (3.8-10.6) k/uL RBC (3.80-5.40) m/uL Hgb (11.4-16.0) gm/dL Hct (34.0-46.0) % MCV (80.0-100.0) fL MCHC (31.0-37.0) g/dL Plt Count (150-450) k/uL Neutrophils # (1.3-7.7) k/uL Neutrophils # (Manual) (1.3-7.7) k/uL Monocytes # (Manual) (0-1.0) k/uL Metamyelocytes # (Man) (0) k/uL Myelocytes # (Manual) (0) k/uL Nucleated RBCs (0-0) /100 WBC Macrocytosis APTT (22.0-30.0) sec Sodium (137-145) mmol/L Potassium (3.5-5.1) mmol/L Carbon Dioxide (22-30) mmol/L BUN (7-17) mg/dL Creatinine (0.52-1.04) mg/dL Glucose (74-99) mg/dL POC Glucose (mg/dL) 169 H 134 H (75-99) mg/dL Calcium (8.4-10.2) mg/dL AST (14-36) U/L Troponin I 1.380 H* (0.000-0.034) ng/mL Total Protein (6.3-8.2) g/dL Albumin (3.5-5.0) g/dL 04/11/19 04/11/19 04/12/19 Range/Units 20:34 21:55 04:35 WBC 18.4 H (3.8-10.6) k/uL RBC 2.73 L (3.80-5.40) m/uL Hgb 8.7 L (11.4-16.0) gm/dL Hct 28.6 L (34.0-46.0) % MCV 104.9 H (80.0-100.0) fL MCHC 30.4 L (31.0-37.0) g/dL Plt Count 147 L (150-450) k/uL Neutrophils # 15.7 H (1.3-7.7) k/uL Neutrophils # (Manual) (1.3-7.7) k/uL Monocytes # (Manual) (0-1.0) k/uL Metamyelocytes # (Man) (0) k/uL Myelocytes # (Manual) (0) k/uL Nucleated RBCs (0-0) /100 WBC Macrocytosis APTT 58.8 H (22.0-30.0) sec Sodium (137-145) mmol/L Potassium (3.5-5.1) mmol/L Carbon Dioxide (22-30) mmol/L BUN (7-17) mg/dL Creatinine (0.52-1.04) mg/dL Glucose (74-99) mg/dL POC Glucose (mg/dL) 236 H (75-99) mg/dL Calcium (8.4-10.2) mg/dL AST (14-36) U/L Troponin I (0.000-0.034) ng/mL Total Protein (6.3-8.2) g/dL Albumin (3.5-5.0) g/dL 04/12/19 04/12/19 04/12/19 Range/Units 04:35 04:35 04:35 WBC (3.8-10.6) k/uL RBC (3.80-5.40) m/uL Hgb (11.4-16.0) gm/dL Hct (34.0-46.0) % MCV (80.0-100.0) fL MCHC (31.0-37.0) g/dL Plt Count (150-450) k/uL Neutrophils # (1.3-7.7) k/uL Neutrophils # (Manual) (1.3-7.7) k/uL Monocytes # (Manual) (0-1.0) k/uL Metamyelocytes # (Man) (0) k/uL Myelocytes # (Manual) (0) k/uL Nucleated RBCs (0-0) /100 WBC Macrocytosis APTT 49.1 H (22.0-30.0) sec Sodium 135 L (137-145) mmol/L Potassium 5.2 H (3.5-5.1) mmol/L Carbon Dioxide (22-30) mmol/L BUN 47 H (7-17) mg/dL Creatinine 2.16 H (0.52-1.04) mg/dL Glucose 153 H (74-99) mg/dL POC Glucose (mg/dL) (75-99) mg/dL Calcium (8.4-10.2) mg/dL AST (14-36) U/L Troponin I 5.110 H* (0.000-0.034) ng/mL Total Protein (6.3-8.2) g/dL Albumin (3.5-5.0) g/dL 04/12/19 04/12/19 04/12/19 Range/Units 06:49 09:37 09:37 WBC 22.9 H (3.8-10.6) k/uL RBC 2.56 L (3.80-5.40) m/uL Hgb 8.3 L (11.4-16.0) gm/dL Hct 27.5 L (34.0-46.0) % MCV 107.6 H (80.0-100.0) fL MCHC 30.0 L (31.0-37.0) g/dL Plt Count (150-450) k/uL Neutrophils # (1.3-7.7) k/uL Neutrophils # (Manual) 18.00 H (1.3-7.7) k/uL Monocytes # (Manual) 1.37 H (0-1.0) k/uL Metamyelocytes # (Man) 0.23 H (0) k/uL Myelocytes # (Manual) 1.60 H (0) k/uL Nucleated RBCs 1 H (0-0) /100 WBC Macrocytosis Marked A APTT 58.1 H (22.0-30.0) sec Sodium (137-145) mmol/L Potassium (3.5-5.1) mmol/L Carbon Dioxide (22-30) mmol/L BUN (7-17) mg/dL Creatinine (0.52-1.04) mg/dL Glucose (74-99) mg/dL POC Glucose (mg/dL) 145 H (75-99) mg/dL Calcium (8.4-10.2) mg/dL AST (14-36) U/L Troponin I (0.000-0.034) ng/mL Total Protein (6.3-8.2) g/dL Albumin (3.5-5.0) g/dL 04/12/19 Range/Units 09:37 WBC (3.8-10.6) k/uL RBC (3.80-5.40) m/uL Hgb (11.4-16.0) gm/dL Hct (34.0-46.0) % MCV (80.0-100.0) fL MCHC (31.0-37.0) g/dL Plt Count (150-450) k/uL Neutrophils # (1.3-7.7) k/uL Neutrophils # (Manual) (1.3-7.7) k/uL Monocytes # (Manual) (0-1.0) k/uL Metamyelocytes # (Man) (0) k/uL Myelocytes # (Manual) (0) k/uL Nucleated RBCs (0-0) /100 WBC Macrocytosis APTT (22.0-30.0) sec Sodium 134 L (137-145) mmol/L Potassium (3.5-5.1) mmol/L Carbon Dioxide 19 L (22-30) mmol/L BUN 43 H (7-17) mg/dL Creatinine 2.00 H (0.52-1.04) mg/dL Glucose 211 H (74-99) mg/dL POC Glucose (mg/dL) (75-99) mg/dL Calcium 7.5 L (8.4-10.2) mg/dL AST 49 H (14-36) U/L Troponin I (0.000-0.034) ng/mL Total Protein 4.1 L (6.3-8.2) g/dL Albumin 2.3 L (3.5-5.0) g/dL Microbiology - Last 24 Hours (Table) 04/09/19 12:40 Blood Culture - Preliminary Blood No Growth after 48 hours Assessment and Plan Assessment: Acute hypoxic respiratory failure secondary to ventricular tachycardia followed by atrial fibrillation with RVR requiring intubation and mechanical ventilation. And shocking about 6 times. Symptomatic bradycardia with hypotension secondary to hyperkalemia. Acute kidney injury secondary to acute tumor necrosis and hypotension with b radycardia. Hyperkalemia secondary to acute kidney injury. Insulin dependent diabetes mellitus. History of coronary artery disease and previous stent placement Irritable bowel syndrome Chronic urinary incontinence History of cervical cancer and previous hysterectomy History of partial parathyroidectomy History of benign essential hypertension Chronic diastolic congestive heart failure Status post cardiac catheterization, official report is pending. Recommendation: Continue ventilatory support, and adjust ventilator settings accordingly. Start the nutritional support via enteral feeding. Continue GI and DVT prophylaxis. Continue bronchodilators. Continue antibiotics. , Is not clear whether the patient may have aspirated. Continue to monitor in the ICU. Critical care time is 34 minutes. We'll continue to follow. Prognosis is guarded
[2019-04-12 18:33] LABS: Glucose,Whole Blood 157 mg/dL (75-99)
[2019-04-12] MEDS: HEPARIN SOD,PORK IN 0.45% NACL 25,000 UNIT in 0.45% NACL 1 250ML.BAG IV SCH (18:33)
[2019-04-12] MEDS: DILTIAZEM 125 MG in SODIUM CHLORIDE 0.9% 100 ML IV SCH (19:29)
[2019-04-12] MEDS: CHLORHEXIDINE GLUCONATE 15 ML CUP MUCOUS MEM SCH (21:55)
[2019-04-12] MEDS: CHOLECALCIFEROL 1,000 UNIT TAB PO SCH (21:56)
[2019-04-12] MEDS: ATORVASTATIN 40 MG TAB PO SCH (21:56)
[2019-04-12] MEDS: METOPROLOL TARTRATE 25 MG TAB PO SCH (21:56)
[2019-04-12] MEDS: MONTELUKAST 10 MG TAB PO SCH (21:56)
[2019-04-12] MEDS: INSULIN DETEMIR (LEVEMIR) 100 UNIT/ML SYR SQ SCH (21:57)
[2019-04-12] MEDS: ARIPiprazole 5 MG TAB PO SCH (21:59)
[2019-04-12 23:55] LABS: Glucose,Whole Blood 173 mg/dL (75-99)
[2019-04-13] MEDS: INSULIN ASPART (NovoLOG) 100 UNIT/ML VIAL SQ SCH ×4 (00:23→18:57)
[2019-04-13 04:58] LABS: Basophils # (A) 0.2 k/uL (0-0.2); Basophils % (A) 1 %; Eosinophils # (A) 0.4 k/uL (0-0.7); Eosinophils % (A) 2 %; HCT 26.4 % (34.0-46.0); HGB 8.6 gm/dL (11.4-16.0); Lymphocytes # (A) 1.4 k/uL (1.0-4.8); Lymphocytes % (A) 8 %; MCH 32.6 pg (25.0-35.0); MCHC 32.4 g/dL (31.0-37.0); Macrocytosis Slight; Mean Platelet Volume 7.7; Monocytes # (A) 0.7 k/uL (0-1.0); Monocytes % (A) 4 %; Neutrophils # (A) 15.1 k/uL (1.3-7.7); Neutrophils % (A) 84 %; Platelet Count 153 k/uL (150-450); RBC 2.63 m/uL (3.80-5.40); RDW 15.4 % (11.5-15.5); WBC 18.1 k/uL (3.8-10.6)
[2019-04-13 05:00] LABS: MCV 100.5 fL (80.0-100.0)
[2019-04-13 05:14] LABS: Calcium 8.1 mg/dL (8.4-10.2); Potassium 3.7 mmol/L (3.5-5.1)
[2019-04-13 05:20] LABS: Vancomycin,Random 17.9 ug/mL
[2019-04-13] MEDS: HEPARIN SODIUM,PORCINE 5,000 UNIT/ML 1 ML VIAL IV PRN (05:53)
[2019-04-13 06:07] LABS: Glucose,Whole Blood 138 mg/dL (75-99)
--- NOTE | 2019-04-13 06:51 | XR ---
EXAMINATION TYPE: XR chest 1V portable DATE OF EXAM: 04/13/2019 HISTORY: Tube placement. REFERENCE: Previous study dated 04/12/2019. FINDINGS: The patient's ET tube and NG tube remain in place, unchanged in appearance The heart is mildly enlarged. There are small, bilateral effusions. There is vascular congestion and mild edema. There is confluent bibasilar airspace disease which may represent confluent edema or pneu monia. There is not been a significant interval change. IMPRESSION: NO SIGNIFICANT INTERVAL CHANGE IN THE APPEARANCE THE CHEST.
[2019-04-13] MEDS: GABAPENTIN 100 MG CAP PO SCH ×2 (06:58→21:52)
[2019-04-13 07:33] LABS: ABG Base Excess -1.2 mmol/L; ABG HCO3 22 mmol/L (21-25); ABG Oxygen Saturation 98.8 % (94-97); ABG PCO2 27 mmHg (35-45); ABG PH 7.52 (7.35-7.45); ABG PO2 133 mmHg (83-108); ABG TCO2 23 mmol/L (19-24); Allen Test Performed? Yes
[2019-04-13] MEDS: BUDESONIDE 1 MG/2 ML NEBU INHALATION SCH ×2 (07:35→19:02)
[2019-04-13] MEDS: FERROUS SULFATE 325 MG TAB PO SCH (07:36)
[2019-04-13] MEDS: CHLORHEXIDINE GLUCONATE 15 ML CUP MUCOUS MEM SCH ×2 (07:45→21:50)
[2019-04-13] MEDS: CITALOPRAM HYDROBROMIDE 20 MG TAB PO SCH ×2 (07:46→07:47)
[2019-04-13] MEDS: ASPIRIN 81 MG PO SCH (07:46)
[2019-04-13] MEDS: ISOSORBIDE MONONITRATE ER 30 MG TAB.ER.24H PO SCH ×2 (07:47→21:50)
[2019-04-13] MEDS: PANTOPRAZOLE 40 MG TABLET PO SCH (07:47)
[2019-04-13] MEDS: METOPROLOL TARTRATE 25 MG TAB PO SCH ×2 (07:47→21:52)
[2019-04-13] MEDS: CLOPIDOGREL 75 MG TAB PO SCH (07:47)
[2019-04-13] MEDS: SODIUM CHLORIDE 0.9% 1,000 ML IV SCH (07:48)
[2019-04-13] MEDS: LEVOFLOXACIN 500MG-D5W PMX 500 MG in DEXTROSE/WATER 1 100ML.BAG IVPB SCH (07:50)
[2019-04-13] MEDS: CITALOPRAM HYDROBROMIDE 10 MG TAB PO SCH (07:51)
--- NOTE | 2019-04-13 10:22 | P.PN ---
Subjective Progress Note Date: 04/13/19 Follow-up for acute kidney injury. Making good urine about 100 ML's an hour. Minimal vent requirement of 40% FiO2 and 5 of PEEP. Objective - Vital Signs Vital signs: Vital Signs Temp 98.8 F 04/13/19 08:00 Pulse 87 04/13/19 08:07 Resp 19 04/13/19 08:00 BP 128/61 04/13/19 08:00 Pulse Ox 99 04/13/19 08:00 Intake & Output 04/12/19 04/13/19 04/13/19 18:59 06:59 18:59 Intake Total 3446.900 0119.827 228 Output Total 2430 1135 250 Balance -1219.037 -86.173 -22 Intake: IV 787 825 228 Normal Saline Pressure 9 3 Bag Sodium Chloride 0.9% 1, 375 825 150 000 ml @ 75 mls/hr IV . [id number] [facility] Rx#:[id number] sodium chloride 303 75 Intake, IV Titration 423.963 223.827 Amount Amiodarone 360 mg In 50.1 Dextrose 5% in Water 200 ml @ 1 MG/MIN 33.333 mls/ hr IV .Q6H [facility] Rx#: [id number] Heparin Sod,Pork in 0.45% 250 114 NaCl 25,000 unit In 0.45 % NaCl 1 250ml.bag @ 6. 024 UNITS/KG/HR 10 mls/hr IV .Q24H [facility] Rx#: [id number] Norepinephrine 32 mg In 123.863 34.827 Sodium Chloride 0.9% 218 ml @ 0.05 MCG/KG/MIN 3. 732 mls/hr IV .Q24H [facility] Rx#:[id number] Sodium Chloride 0.9% 1, 75 000 ml @ 75 mls/hr IV . [id number] [facility] Rx#:[id number] Output: Urine 930 1135 250 Hemodialysis 1500 Other: Voiding Method Indwelling Catheter Indwelling Catheter Indwelling Catheter ABP, PAP, CO, CI - Last Documented Arterial Blood Pressure 151/76 - Exam No acute distress intubated and sedated S1-S2 heard Lungs clear Edema Oral intubation Right groin Ricky Solitario catheter - Labs CBC & Chem 7: 04/13/19 04:30 04/13/19 04:30 Labs: Abnormal Lab Results - Last 24 Hours (Table) 04/12/19 04/12/19 04/12/19 Range/Units 09:37 09:37 11:53 WBC 22.9 H (3.8-10.6) k/uL RBC (3.80-5.40) m/uL Hgb (11.4-16.0) gm/dL Hct (34.0-46.0) % MCV (80.0-100.0) fL Neutrophils # (1.3-7.7) k/uL Neutrophils # (Manual) 18.00 H (1.3-7.7) k/uL Monocytes # (Manual) 1.37 H (0-1.0) k/uL Metamyelocytes # (Man) 0.23 H (0) k/uL Myelocytes # (Manual) 1.60 H (0) k/uL Nucleated RBCs 1 H (0-0) /100 WBC APTT (22.0-30.0) sec ABG pH (7.35-7.45) ABG pCO2 (35-45) mmHg ABG pO2 (83-108) mmHg ABG HCO3 (21-25) mmol/L ABG O2 Saturation (94-97) % Sodium 134 L (137-145) mmol/L Carbon Dioxide 19 L (22-30) mmol/L BUN 43 H (7-17) mg/dL Creatinine 2.00 H (0.52-1.04) mg/dL Glucose 211 H (74-99) mg/dL POC Glucose (mg/dL) 222 H (75-99) mg/dL Calcium 7.5 L (8.4-10.2) mg/dL AST 49 H (14-36) U/L Total Protein 4.1 L (6.3-8.2) g/dL Albumin 2.3 L (3.5-5.0) g/dL 04/12/19 04/12/19 04/12/19 Range/Units 17:24 18:31 23:54 WBC (3.8-10.6) k/uL RBC (3.80-5.40) m/uL Hgb (11.4-16.0) gm/dL Hct (34.0-46.0) % MCV (80.0-100.0) fL Neutrophils # (1.3-7.7) k/uL Neutrophils # (Manual) (1.3-7.7) k/uL Monocytes # (Manual) (0-1.0) k/uL Metamyelocytes # (Man) (0) k/uL Myelocytes # (Manual) (0) k/uL Nucleated RBCs (0-0) /100 WBC APTT (22.0-30.0) sec ABG pH (7.35-7.45) ABG pCO2 30 L (35-45) mmHg ABG pO2 >400 H (83-108) mmHg ABG HCO3 19 L (21-25) mmol/L ABG O2 Saturation 99.0 H (94-97) % Sodium (137-145) mmol/L Carbon Dioxide (22-30) mmol/L BUN (7-17) mg/dL Creatinine (0.52-1.04) mg/dL Glucose (74-99) mg/dL POC Glucose (mg/dL) 157 H 173 H (75-99) mg/dL Calcium (8.4-10.2) mg/dL AST (14-36) U/L Total Protein (6.3-8.2) g/dL Albumin (3.5-5.0) g/dL 04/13/19 04/13/19 04/13/19 Range/Units 04:30 04:30 04:30 WBC 18.1 H (3.8-10.6) k/uL RBC 2.63 L (3.80-5.40) m/uL Hgb 8.6 L (11.4-16.0) gm/dL Hct 26.4 L (34.0-46.0) % MCV 100.5 H D (80.0-100.0) fL Neutrophils # 15.1 H (1.3-7.7) k/uL Neutrophils # (Manual) (1.3-7.7) k/uL Monocytes # (Manual) (0-1.0) k/uL Metamyelocytes # (Man) (0) k/uL Myelocytes # (Manual) (0) k/uL Nucleated RBCs (0-0) /100 WBC APTT 39.2 H (22.0-30.0) sec ABG pH (7.35-7.45) ABG pCO2 (35-45) mmHg ABG pO2 (83-108) mmHg ABG HCO3 (21-25) mmol/L ABG O2 Saturation (94-97) % Sodium 130 L (137-145) mmol/L Carbon Dioxide (22-30) mmol/L BUN 28 H (7-17) mg/dL Creatinine 1.33 H (0.52-1.04) mg/dL Glucose 129 H (74-99) mg/dL POC Glucose (mg/dL) (75-99) mg/dL Calcium 8.1 L (8.4-10.2) mg/dL AST (14-36) U/L Total Protein (6.3-8.2) g/dL Albumin (3.5-5.0) g/dL 04/13/19 04/13/19 Range/Units 06:06 07:26 WBC (3.8-10.6) k/uL RBC (3.80-5.40) m/uL Hgb (11.4-16.0) gm/dL Hct (34.0-46.0) % MCV (80.0-100.0) fL Neutrophils # (1.3-7.7) k/uL Neutrophils # (Manual) (1.3-7.7) k/uL Monocytes # (Manual) (0-1.0) k/uL Metamyelocytes # (Man) (0) k/uL Myelocytes # (Manual) (0) k/uL Nucleated RBCs (0-0) /100 WBC APTT (22.0-30.0) sec ABG pH 7.52 H (7.35-7.45) ABG pCO2 27 L (35-45) mmHg ABG pO2 133 H (83-108) mmHg ABG HCO3 (21-25) mmol/L ABG O2 Saturation 98.8 H (94-97) % Sodium (137-145) mmol/L Carbon Dioxide (22-30) mmol/L BUN (7-17) mg/dL Creatinine (0.52-1.04) mg/dL Glucose (74-99) mg/dL POC Glucose (mg/dL) 138 H (75-99) mg/dL Calcium (8.4-10.2) mg/dL AST (14-36) U/L Total Protein (6.3-8.2) g/dL Albumin (3.5-5.0) g/dL Microbiology - Last 24 Hours (Table) 04/09/19 12:40 Blood Culture - Preliminary Blood No Growth after 72 hours Assessment and Plan Assessment: #1 Nonoliguric acute kidney injury, suspect ischemic ATN, creatinine improving. #2 hyperkalemiawith acute kidney injury requiring hemodialysis. #3 Ventricular Tachycardia status post cardiac cath followed by dialysis yesterday. #4 hyperkalemia resolved currently low normal #5 ventilator dependent respiratory failure #6 edema #7 shock on pressors Plan: #1 continue to monitor renal function, creatinine better. #2 consider stopping IV fluids #3 wean off pressors #4 replace potassium 40 mEq with good urine output anticipate to lose more potassium, with ventricular tachycardia keep potassium more than 4 and magnesium more than 2. #[address] is urgent and changes the current management please go ahead, we will do dialysis post CAT scan. If nonurgent, plan for Monday followed by dialysis.
[2019-04-13 11:38] LABS: Glucose,Whole Blood 112 mg/dL (75-99)
--- NOTE | 2019-04-13 13:00 | P.PN ---
Subjective Progress Note Date: 04/13/19 Principal diagnosis: Symptomatic bradycardia and hypotension with hyperkalemia This is a 74-year-old female with known history of multiple medical problems including diastolic congestive heart failure, hypertension, diabetes, coronary artery disease and previous stent placement, chronic low back pain, urinary incontinence, irritable bowel syndrome, cervical cancer and previous hysterectomy, patient was sent to the ER last night from the [facility] on the [place] with complaints of shortness of breath. Patient has been complaining of shortness of breath for the last 2-3 days. She was also complaining of right mid abdominal and right flank pain. She had no chest pain, no nausea no vomiting, no fever no chills no hemoptysis. Patient was feeling extremely tired and exhausted. Upon evaluation in the ER, patient was noted to be profoundly bradycardic, heart rate ranging between 40 and 60. Blood pressure on arrival was 76/61. Patient had a right femoral triple-lumen catheter placed by the ER physician, and she had fluid boluses at least 2 L were given in the form of 0.9 normal saline. Patient was placed on dopamine for her profound bradycardia, and she is presently on dopamine at 5 mcg/kg/m. Remained hypotensive, hence norepinephrine at 0.04 mcg/kg/m was added. Maintained on IV fluid at 100 mL/h, admitted to the ICU, and this consult was initiated. I evaluated the patient in the ICU, kept her on dopamine and norepinephrine, and she was seen by nephrology on consultation last night, patient underwent stat hemodialysis mostly because of her hyperkalemia and acute kidney injury. Reevaluated today on 04/11/2019, patient remains on norepinephrine at 0.04 mcg/ kg/m, blood pressure remains marginal, hence a left radial arterial line was placed. Patient is off dopamine, she is in sinus rhythm, and no further episodes of bradycardia. She is alert oriented 3, according to the nurse she had intermittent episodes of confusion, but her mental status seems to be intact this morning. Chest x-ray showed cardiomegaly and interstitial edema with bibasilar atelectasis. Electrolytes are much improved potassium is down to 5.2 BUN is 51 creatinine 2.31, no plans for dialysis today. WBC count is 16.3 hemoglobin is 9.7. Patient denies any shortness of breath, she feels generally weak. Patient was reevaluated today on 04/12/2019. Patient developed sustained v entricular tachycardia earlier this morning, patient was shocked about 6 times, she was given lidocaine and amiodarone as per cardiology at bedside, patient was intubated, and she was taken down for a cardiac catheterization by cardiology. I reviewed the ventilator settings, and I recommended tidal volume of 500, assist control rate of 20, FiO2 of 100% and PEEP of 5. ABG is pending. Cardiac catheterization report is pending but I was informed that she had no significant coronary artery disease to speak of. Chest x-ray showed bibasilar atelectasis, possibly infiltrates, patient may have developed some component of aspiration pneumonia. Labs today showed leukocytosis with WBC count of 22.9 hemoglobin 8.3, electrolytes are normal, BUN is 43 creatinine 2.0. Cardiology October he was concerned about the possibility of non-ST segment elevation myocardial infarction. Later on patient was noted to have atrial fibrillation with poorly controlled ventricular rate. And again her cardiac catheterization official report is pending Reevaluated today on 04/13/2019, patient remains intubated, on mechanical ventilation, her ventilator settings are assist control rate of 20 and I cut it down to 16 FiO2 is 40%, and I cut it down to 35%. Tidal volume is 500 remains the same and PEEP is at 5. Patient is requiring propofol at 50 mcg/kg/m, she is on norepinephrine at 0.05 mcg/kg/m. Amiodarone drip, Cardizem drip at 5 mg per hour. She is also on heparin. Her cardiac catheterization yesterday was basically unremarkable. Hence the laser printing operator seems to be concerned about pulmonary embolism, clinically that is unlikely based on the clinical history, not to mention the patient has been on anticoagulation therapy all along since admission. At this point patient is not to get the CT of the chest, since the index of suspicion for pulmonary embolism is low and since her renal functioning is marginal. Would rather continue anticoagulation therapy and did not do a CT of the chest at this point. ABG today showed a pO2 of 133 pCO2 of 27 pH of 7.52 again her FiO2 was decreased down to 35%. Patient is sedated on propofol, and I plan to give the patient a sedation holiday, and hopefully assess mental status, no plans to wean and extubate at this point. Still concerned about her issue of an arrhythmia and recurrent episodes of ventricular tachycardia. Chest x-ray showed no significant interval change from before, there is vascular congestion and mild pulmonary edema with bibasilar atelectasis, doubt pneumonia Objective - Vital Signs Vital signs: Vital Signs Temp 98.8 F 04/13/19 08:00 Pulse 79 04/13/19 11:00 Resp 16 04/13/19 11:00 BP 128/61 04/13/19 11:00 Pulse Ox 98 04/13/19 11:00 Intake & Output 04/12/19 04/13/19 04/13/19 18:59 06:59 18:59 Intake Total 7853.139 5060.827 456 Output Total 2430 1135 600 Balance -1219.037 -86.173 -144 Intake: IV 787 825 456 Levofloxacin 500Mg-D5w 100 Pmx 500 mg In Dextrose/ Water 1 100ml.bag @ 100 mls/hr IVPB Q48H [facility] Rx#: [id number] Normal Saline Pressure 9 6 Bag Sodium Chloride 0.9% 1, 375 825 150 000 ml @ 75 mls/hr IV . [id number] [facility] Rx#:[id number] sodium chloride 303 200 Intake, IV Titration 423.963 223.827 Amount Amiodarone 360 mg In 50.1 Dextrose 5% in Water 200 ml @ 1 MG/MIN 33.333 mls/ hr IV .Q6H [facility] Rx#: [id number] Heparin Sod,Pork in 0.45% 250 114 NaCl 25,000 unit In 0.45 % NaCl 1 250ml.bag @ 6. 024 UNITS/KG/HR 10 mls/hr IV .Q24H [facility] Rx#: [id number] Norepinephrine 32 mg In 123.863 34.827 Sodium Chloride 0.9% 218 ml @ 0.05 MCG/KG/MIN 3. 732 mls/hr IV .Q24H [facility] Rx#:[id number] Sodium Chloride 0.9% 1, 75 000 ml @ 75 mls/hr IV . [id number] [facility] Rx#:[id number] Output: Urine 930 1135 600 Hemodialysis 1500 Other: Voiding Method Indwelling Catheter Indwelling Catheter Indwelling Catheter ABP, PAP, CO, CI - Last Documented Arterial Blood Pressure 159/73 - Exam Physical Exam: Revealed a 74-year-old female morbidly obese, on mechanical ventilation, sedated. On propofol Head: Atraumatic, normocephalic. Endotracheal tube and orogastric tube are intact. HEENT:[Neck is supple.] [No neck masses.] [No thyromegaly.] [No JVD.] PERRLA, EOMI, no icterus. Chest: [Diminished breath sounds crackles and rhonchi noted bilaterally Cardiac Exam: Distant S1 and S2, no S3 gallop, no murmur. No gallop.] Abdomen: [Morbidly obese, Soft, nontender, no megaly, no rebound, no guarding, normal bowel sounds.] Extremities: [No clubbing, 2+ bipedal bipedal edema, no cyanosis.] Neurological Exam: Sedated, on propofol, cannot be assessed. Skin: No rashes or petechiae. Psychiatric: Cannot be assessed. - Labs CBC & Chem 7: 04/13/19 04:30 04/13/19 04:30 Labs: Abnormal Lab Results - Last 24 Hours (Table) 04/12/19 04/12/19 04/12/19 Range/Units 17:24 18:31 23:54 WBC (3.8-10.6) k/uL RBC (3.80-5.40) m/uL Hgb (11.4-16.0) gm/dL Hct (34.0-46.0) % MCV (80.0-100.0) fL Neutrophils # (1.3-7.7) k/uL APTT (22.0-30.0) sec ABG pH (7.35-7.45) ABG pCO2 30 L (35-45) mmHg ABG pO2 >400 H (83-108) mmHg ABG HCO3 19 L (21-25) mmol/L ABG O2 Saturation 99.0 H (94-97) % Sodium (137-145) mmol/L BUN (7-17) mg/dL Creatinine (0.52-1.04) mg/dL Glucose (74-99) mg/dL POC Glucose (mg/dL) 157 H 173 H (75-99) mg/dL Calcium (8.4-10.2) mg/dL 04/13/19 04/13/19 04/13/19 Range/Units 04:30 04:30 04:30 WBC 18.1 H (3.8-10.6) k/uL RBC 2.63 L (3.80-5.40) m/uL Hgb 8.6 L (11.4-16.0) gm/dL Hct 26.4 L (34.0-46.0) % MCV 100.5 H D (80.0-100.0) fL Neutrophils # 15.1 H (1.3-7.7) k/uL APTT 39.2 H (22.0-30.0) sec ABG pH (7.35-7.45) ABG pCO2 (35-45) mmHg ABG pO2 (83-108) mmHg ABG HCO3 (21-25) mmol/L ABG O2 Saturation (94-97) % Sodium 130 L (137-145) mmol/L BUN 28 H (7-17) mg/dL Creatinine 1.33 H (0.52-1.04) mg/dL Glucose 129 H (74-99) mg/dL POC Glucose (mg/dL) (75-99) mg/dL Calcium 8.1 L (8.4-10.2) mg/dL 04/13/19 04/13/19 04/13/19 Range/Units 06:06 07:26 11:37 WBC (3.8-10.6) k/uL RBC (3.80-5.40) m/uL Hgb (11.4-16.0) gm/dL Hct (34.0-46.0) % MCV (80.0-100.0) fL Neutrophils # (1.3-7.7) k/uL APTT (22.0-30.0) sec ABG pH 7.52 H (7.35-7.45) ABG pCO2 27 L (35-45) mmHg ABG pO2 133 H (83-108) mmHg ABG HCO3 (21-25) mmol/L ABG O2 Saturation 98.8 H (94-97) % Sodium (137-145) mmol/L BUN (7-17) mg/dL Creatinine (0.52-1.04) mg/dL Glucose (74-99) mg/dL POC Glucose (mg/dL) 138 H 112 H (75-99) mg/dL Calcium (8.4-10.2) mg/dL Microbiology - Last 24 Hours (Table) 04/09/19 12:40 Blood Culture - Preliminary Blood No Growth after 72 hours Assessment and Plan Assessment: Impression: Acute hypoxic respiratory failure secondary to ventricular tachycardia followed by atrial fibrillation with RVR requiring intubation and mechanical ventilation. And shocking about 6 times. Symptomatic bradycardia with hypotension secondary to hyperkalemia. On presentation, resolved. Acute kidney injury secondary to acute tumor necrosis and hypotension with bradycardia. Improving, patient has good urine output, and renal status followed by nephrology on the case. Hyperkalemia secondary to acute kidney injury. Resolved Insulin dependent diabetes mellitus. History of coronary artery disease and previous stent placement Irritable bowel syndrome Chronic urinary incontinence History of cervical cancer and previous hysterectomy History of partial parathyroidectomy History of benign essential hypertension Chronic diastolic congestive heart failure Status post cardiac catheterization, no significant coronary artery disease Recommendation: Continue ventilatory support, and adjust ventilator settings accordingly. Patient will be given a sedation holiday and mostly to address mental status today but no plans to wean or extubated. Dietitian to address nutritional support. Continue GI and DVT prophylaxis. Continue bronchodilators. Continue antibiotics. , Is not clear whether the patient may have aspirated. Continue to monitor in the ICU. Medical care time is 33 minutes We'll continue to follow. Prognosis is guarded Time with Patient: Greater than 30
[2019-04-13] MEDS ORDERED: VANCOMYCIN 2,000 MG in SODIUM CHLORIDE 0.9% 500 ML 500 ML IVPB ONE (14:00)
[2019-04-13] MEDS: HEPARIN SOD,PORK IN 0.45% NACL 25,000 UNIT in 0.45% NACL 1 250ML.BAG IV SCH (15:05)
--- NOTE | 2019-04-13 16:07 | P.PN ---
Subjective Progress Note Date: 04/13/19 Principal diagnosis: Sinus bradycardia/hypotension/hyperkalemia 74-year-old female with known history of multiple medical problems including diastolic congestive heart failure, hypertension, diabetes, coronary artery disease and previous stent placement, chronic low back pain, urinary incontinence, irritable bowel syndrome, cervical cancer and previous hysterectomy, patient was sent to the ER last night from the [facility] on the [place] with complaints of shortness of breath. Patient has been complaining of shortness of breath for the last 2-3 days. She was also complaining of right mid abdominal and right flank pain. She had no chest pain, no nausea no vomiting, no fever no chills no hemoptysis. Patient was feeling extremely tired and exhausted. Upon evaluation in the ER, patient was noted to be profoundly bradycardic, heart rate ranging between 40 and 60. Blood pressure on arrival was 76/61. Patient had a right femoral triple-lumen catheter placed by the ER physician, and she had fluid boluses at least 2 L were given in the form of 0.9 normal saline. Patient was placed on dopamine for her profound bradycardia, and she is presently on dopamine at 5 mcg/kg/m. Remained hypotensive, hence norepinephrine at 0.04 mcg/kg/m was added. Maintained on IV fluid at 100 mL/h, admitted to the ICU, and this consult was initiated. I evaluated the patient in the ICU, kept her on dopamine and norepinephrine, and she was seen by nephrology on consultation last night, patient underwent stat hemodialysis mostly because of her hyperkalemia and acute kidney injury. 04/12/2019. Patient developed sustained ventricular tachycardia earlier this morning, patient was shocked about 6 times, she was given lidocaine and amiodarone as per cardiology at bedside, patient was intubated, and she was taken down for a cardiac catheterization by cardiology. I reviewed the ventilator settings, and I recommended tidal volume of 500, assist control rate of 20, FiO2 of 100% and PEEP of 5. ABG is pending. Cardiac catheterization report is pending but I was informed that she had no significant coronary artery disease to speak of. Chest x-ray showed bibasilar atelectasis, possibly infiltrates, patient may have developed some component of aspiration pneumonia. Labs today showed leukocytosis with WBC count of 22.9 hemoglobin 8.3, electrolytes are normal, BUN is 43 creatinine 2.0. Cardiology October he was concerned about the possibility of non-ST segment elevation myocardial infarction. Later on patient was noted to have atrial fibrillation with poorly controlled ventricular rate. 04/13/2019 patient remains in ICU and intubated Patient remains on Amiodarone drip, Cardizem drip at 5 mg per hour and IV heparin. Cardiac catheterization yesterday was basically unremarkable. Cardiology remains concerned about pulmonary embolism, clinically that is unlikely based on the clinical history, not to mention the patient has been on anticoagulation therapy all along since admission. At this point patient is not to get the CT of the chest, since the index of suspicion for pulmonary embolism is low and since her renal functioning is marginal. ABG today showed a pO2 of 133 pCO2 of 27 pH of 7.52 again her FiO2 was decreased down to 35%. Chest x-ray showed no significant interval change from before, there is vascular congestion and mild pulmonary edema with bibasilar atelectasis, doubt pneumonia; pulmonary is planning to start with sedation holiday to assess mental status with no plans to extubate yet Objective - Vital Signs Vital signs: Vital Signs Temp 98.8 F 04/13/19 08:00 Pulse 79 04/13/19 11:00 Resp 16 04/13/19 11:00 BP 128/61 04/13/19 11:00 Pulse Ox 98 04/13/19 11:00 Intake & Output 04/12/19 04/13/19 04/13/19 18:59 06:59 18:59 Intake Total 8421.157 5415.827 456 Output Total 2430 1135 600 Balance -1219.037 -86.173 -144 Intake: IV 787 825 456 Levofloxacin 500Mg-D5w 100 Pmx 500 mg In Dextrose/ Water 1 100ml.bag @ 100 mls/hr IVPB Q48H [facility] Rx#: [id number] Normal Saline Pressure 9 6 Bag Sodium Chloride 0.9% 1, 375 825 150 000 ml @ 75 mls/hr IV . [id number] [facility] Rx#:[id number] sodium chloride 303 200 Intake, IV Titration 423.963 223.827 Amount Amiodarone 360 mg In 50.1 Dextrose 5% in Water 200 ml @ 1 MG/MIN 33.333 mls/ hr IV .Q6H [facility] Rx#: [id number] Heparin Sod,Pork in 0.45% 250 114 NaCl 25,000 unit In 0.45 % NaCl 1 250ml.bag @ 6. 024 UNITS/KG/HR 10 mls/hr IV .Q24H [facility] Rx#: [id number] Norepinephrine 32 mg In 123.863 34.827 Sodium Chloride 0.9% 218 ml @ 0.05 MCG/KG/MIN 3. 732 mls/hr IV .Q24H [facility] Rx#:[id number] Sodium Chloride 0.9% 1, 75 000 ml @ 75 mls/hr IV . [id number] [facility] Rx#:[id number] Output: Urine 930 1135 600 Hemodialysis 1500 Other: Voiding Method Indwelling Catheter Indwelling Catheter Indwelling Catheter ABP, PAP, CO, CI - Last Documented Arterial Blood Pressure 159/73 - Exam 74-year-old female morbidly obese, on mechanical ventilation, sedated. Head: Atraumatic, normocephalic. Endotracheal tube and orogastric tube are intact. HEENT:[Neck is supple.] [No neck masses.] [No thyromegaly.] [No JVD.] PERRLA, EOMI, no icterus. Chest: [Diminished breath sounds crackles and rhonchi noted bilaterally Cardiac Exam: Distant S1 and S2, no S3 gallop, no murmur. No gallop.] Abdomen: [Morbidly obese, Soft, nontender, no megaly, no rebound, no guarding, normal bowel sounds.] Extremities: [No clubbing, trace of bipedal edema, no cyanosis.] Neurological Exam: Sedated. - Labs CBC & Chem 7: 04/13/19 04:30 04/13/19 04:30 Labs: Abnormal Lab Results - Last 24 Hours (Table) 04/12/19 04/12/19 04/12/19 Range/Units 17:24 18:31 23:54 WBC (3.8-10.6) k/uL RBC (3.80-5.40) m/uL Hgb (11.4-16.0) gm/dL Hct (34.0-46.0) % MCV (80.0-100.0) fL Neutrophils # (1.3-7.7) k/uL APTT (22.0-30.0) sec ABG pH (7.35-7.45) ABG pCO2 30 L (35-45) mmHg ABG pO2 >400 H (83-108) mmHg ABG HCO3 19 L (21-25) mmol/L ABG O2 Saturation 99.0 H (94-97) % Sodium (137-145) mmol/L BUN (7-17) mg/dL Creatinine (0.52-1.04) mg/dL Glucose (74-99) mg/dL POC Glucose (mg/dL) 157 H 173 H (75-99) mg/dL Calcium (8.4-10.2) mg/dL 04/13/19 04/13/19 04/13/19 Range/Units 04:30 04:30 04:30 WBC 18.1 H (3.8-10.6) k/uL RBC 2.63 L (3.80-5.40) m/uL Hgb 8.6 L (11.4-16.0) gm/dL Hct 26.4 L (34.0-46.0) % MCV 100.5 H D (80.0-100.0) fL Neutrophils # 15.1 H (1.3-7.7) k/uL APTT 39.2 H (22.0-30.0) sec ABG pH (7.35-7.45) ABG pCO2 (35-45) mmHg ABG pO2 (83-108) mmHg ABG HCO3 (21-25) mmol/L ABG O2 Saturation (94-97) % Sodium 130 L (137-145) mmol/L BUN 28 H (7-17) mg/dL Creatinine 1.33 H (0.52-1.04) mg/dL Glucose 129 H (74-99) mg/dL POC Glucose (mg/dL) (75-99) mg/dL Calcium 8.1 L (8.4-10.2) mg/dL 04/13/19 04/13/19 04/13/19 Range/Units 06:06 07:26 11:37 WBC (3.8-10.6) k/uL RBC (3.80-5.40) m/uL Hgb (11.4-16.0) gm/dL Hct (34.0-46.0) % MCV (80.0-100.0) fL Neutrophils # (1.3-7.7) k/uL APTT (22.0-30.0) sec ABG pH 7.52 H (7.35-7.45) ABG pCO2 27 L (35-45) mmHg ABG pO2 133 H (83-108) mmHg ABG HCO3 (21-25) mmol/L ABG O2 Saturation 98.8 H (94-97) % Sodium (137-145) mmol/L BUN (7-17) mg/dL Creatinine (0.52-1.04) mg/dL Glucose (74-99) mg/dL POC Glucose (mg/dL) 138 H 112 H (75-99) mg/dL Calcium (8.4-10.2) mg/dL Microbiology - Last 24 Hours (Table) 04/09/19 12:40 Blood Culture - Preliminary Blood No Growth after 72 hours Assessment and Plan Assessment: Acute hypoxic respiratory failure secondary to ventricular tachycardia followed by atrial fibrillation with RVR requiring intubation and mechanical ventilation. And shocking about 6 times. Symptomatic bradycardia with hypotension secondary to hyperkalemia. Acute kidney injury secondary to acute tumor necrosis and hypotension with bradycardia. Hyperkalemia secondary to acute kidney injury. Insulin dependent diabetes mellitus. History of coronary artery disease and previous stent placement Irritable bowel syndrome Chronic urinary incontinence History of cervical cancer and previous hysterectomy History of partial parathyroidectomy History of benign essential hypertension Chronic diastolic congestive heart failure Status post cardiac catheterization, official report is pending. Recommendation: Continue ventilatory support, and adjust ventilator settings accordingly. Start the nutritional support via enteral feeding. Continue GI and DVT prophylaxis. Continue bronchodilators. Continue antibiotics. , Is not clear whether the patient may have aspirated. Continue to monitor in the ICU. Critical care time is 34 minutes. We'll continue to follow. Prognosis is guarded
--- NOTE | 2019-04-13 16:43 | ECHOF ---
Referral Reason:limited echo...assess lvf MEASUREMENTS -------- HEIGHT: 157.5 cm WEIGHT: 165.6 kg BP: FINDINGS -------- Sinus rhythm. The rhythm appears to be atrial flutter. Morbid Obesity Overall left ventricular systolic function is low-normal with, an EF between 50 - 55 %. CONCLUSIONS -------- 1. Sinus rhythm. 2. The rhythm appears to be atrial flutter. 3. Morbid Obesity 4. Overall left ventricular systolic function is low-normal with, an EF between 50 - 55 %. [employer] MECHANIC: Vicky Haywood RDCS
[2019-04-13] MEDS ORDERED: POTASSIUM BICARBONATE/CIT AC 20 MEQ TABLET.EFF PO ONE (16:47)
[2019-04-13] MEDS: NOREPINEPHRINE 32 MG in SODIUM CHLORIDE 0.9% 218 ML IV SCH (18:24)
[2019-04-13] MEDS: DILTIAZEM 125 MG in SODIUM CHLORIDE 0.9% 100 ML IV SCH (18:25)
[2019-04-13 18:56] LABS: Glucose,Whole Blood 123 mg/dL (75-99)
[2019-04-13] MEDS: INSULIN DETEMIR (LEVEMIR) 100 UNIT/ML SYR SQ SCH (21:49)
[2019-04-13] MEDS: MONTELUKAST 10 MG TAB PO SCH (21:50)
[2019-04-13] MEDS: AMIODARONE 200 MG TAB PO SCH (21:50)
[2019-04-13] MEDS: ATORVASTATIN 40 MG TAB PO SCH (21:52)
[2019-04-13] MEDS: CHOLECALCIFEROL 1,000 UNIT TAB PO SCH (21:53)
[2019-04-13] MEDS: ARIPiprazole 5 MG TAB PO SCH (21:57)
--- NOTE | 2019-04-13 22:31 | PN ---
PROGRESS NOTE 74-year-old lady who is admitted to hospital initially with bradyarrhythmia. Subsequently developed a non ST-segment elevation DE and had renal failure. She is going in and out of atrial fibrillation, but hemodynamically remains stable. She is currently on IV heparin and we will switch her to Xarelto or Eliquis. She needs it for atrial fibrillation and the possibility of pulmonary embolism. On exam heart rate is 90 beats per minute. Blood pressure is 115/50. Respirations 18. O2 sat is 95%. There is no jugular venous distention. Chest exam reveals diminished air entry at the bases with occasional rhonchi bilaterally. Heart exam reveals first and second heart sounds. Systolic murmur at the left lower sternal border. Abdomen is soft. Exam of extremities reveals bilateral 1+ pitting edema. LABORATORY DATA: Potassium is 3.7, creatinine is 1.3, hemoglobin is 8.6. ASSESSMENT: 1. Acute exacerbation of chronic renal failure. 2. Symptomatic bradycardia. 3. Status post cardiac arrest, respiratory failure and vent. PLAN: I will continue the patient on IV heparin. Cardiac catheterization did not reveal significant new obstructive CAD and she did not require angioplasty. I will change her from heparin to Eliquis or Xarelto when she is extubated. MMODL / IJN: [id number] /
[2019-04-14 00:29] LABS: Glucose,Whole Blood 191 mg/dL (75-99)
[2019-04-14] MEDS: INSULIN ASPART (NovoLOG) 100 UNIT/ML VIAL SQ SCH ×4 (00:41→18:04)
[2019-04-14] MEDS: HEPARIN SODIUM,PORCINE 5,000 UNIT/ML 1 ML VIAL IV PRN (01:26)
--- NOTE | 2019-04-14 06:00 | XR ---
EXAMINATION TYPE: XR chest 1V portable DATE OF EXAM: 04/14/2019 HISTORY: Tube placement. REFERENCE: Previous study dated 04/13/2019. FINDINGS: The patient is ET tube and NG tube remain in place, unchanged in appearance. The heart is enlarged. There is vascular congestion and pulmonary edema. There is confluent bibasilar airspace disease which may represent confluent edema or superimposed pneumonia. There are bilateral effusions. IMPRESSION: SLIGHT WORSENING IN THE APPEARANCE OF THE PATIENT'S CONGESTIVE HEART FAILURE.
[2019-04-14 06:17] LABS: Glucose,Whole Blood 151 mg/dL (75-99)
[2019-04-14] MEDS: GABAPENTIN 100 MG CAP PO SCH ×2 (06:28→23:25)
[2019-04-14] MEDS: BUDESONIDE 1 MG/2 ML NEBU INHALATION SCH ×3 (07:15→20:45)
[2019-04-14 07:25] LABS: HCT 28.7 % (34.0-46.0); HGB 9.3 gm/dL (11.4-16.0); Hypochromasia Slight; MCHC 32.6 g/dL (31.0-37.0); MCV 101.2 fL (80.0-100.0); Macrocytosis Slight; Mean Platelet Volume 7.8; Platelet Count 172 k/uL (150-450); RBC 2.83 m/uL (3.80-5.40); RDW 15.6 % (11.5-15.5)
[2019-04-14 07:44] LABS: Calcium 8.4 mg/dL (8.4-10.2)
[2019-04-14 07:48] LABS: Potassium 4.7 mmol/L (3.5-5.1)
[2019-04-14 08:50] LABS: Band Neutrophils % 5 %; Lymphocytes # (M) 2.25 k/uL (1.0-4.8); Metamyelocytes # (M) 1.25 k/uL (0); Metamyelocytes % 5 %; Myelocytes % 12 %; Neutrophils % (M) 64 %; Nucleated Red Blood Cells 0 /100 WBC (0-0); Promyelocytes # (M) 0.25 k/uL (0); Promyelocytes % 1 %; Total Cells Counted 200
[2019-04-14 08:51] LABS: Crenated RBC Present; Poikilocytosis (M) Present; Toxic Granulation Present
[2019-04-14] MEDS: PANTOPRAZOLE 40 MG TABLET PO SCH (09:17)
[2019-04-14] MEDS: CITALOPRAM HYDROBROMIDE 10 MG TAB PO SCH (09:17)
[2019-04-14] MEDS: AMIODARONE 200 MG TAB PO SCH ×2 (09:17→23:24)
[2019-04-14] MEDS: ISOSORBIDE MONONITRATE ER 30 MG TAB.ER.24H PO SCH ×2 (09:17→23:24)
[2019-04-14] MEDS: CHLORHEXIDINE GLUCONATE 15 ML CUP MUCOUS MEM SCH ×2 (09:17→23:24)
[2019-04-14] MEDS: CLOPIDOGREL 75 MG TAB PO SCH (09:17)
[2019-04-14] MEDS: ASPIRIN 81 MG PO SCH (09:18)
[2019-04-14] MEDS: FERROUS SULFATE 325 MG TAB PO SCH (09:18)
[2019-04-14] MEDS: METOPROLOL TARTRATE 25 MG TAB PO SCH ×2 (09:18→23:24)
[2019-04-14] MEDS ORDERED: FUROSEMIDE 10 MG/ML 10 ML VIAL IV STA (09:38)
--- NOTE | 2019-04-14 09:44 | P.PN ---
Subjective Progress Note Date: 04/14/19 Follow-up for acute kidney injury. Minimal vent requirement of 40% FiO2 and 5 of PEEP. Still on low-dose levo fed. No nausea vomiting diarrhea. Objective - Vital Signs Vital signs: Vital Signs Temp 97.9 F 04/14/19 04:00 Pulse 79 04/14/19 07:55 Resp 20 04/14/19 07:00 BP 128/61 04/13/19 18:00 Pulse Ox 99 04/14/19 07:00 Intake & Output 04/13/19 04/14/19 04/14/19 18:59 06:59 18:59 Intake Total 861.166 281.792 15 Output Total 1110 495 40 Balance -248.834 -213.208 -25 Weight 167 kg Intake: IV 655 223 15 Levofloxacin 500Mg-D5w 100 Pmx 500 mg In Dextrose/ Water 1 100ml.bag @ 100 mls/hr IVPB Q48H [facility] Rx#: [id number] Normal Saline Pressure 30 3 Bag Sodium Chloride 0.9% 1, 150 000 ml @ 75 mls/hr IV . [id number] [facility] Rx#:[id number] sodium chloride 375 220 15 Intake, IV Titration 206.166 58.792 Amount Heparin Sod,Pork in 0.45% 165.115 58.792 NaCl 25,000 unit In 0.45 % NaCl 1 250ml.bag @ 6. 024 UNITS/KG/HR 10 mls/hr IV .Q24H [facility] Rx#: [id number] Norepinephrine 32 mg In 41.051 Sodium Chloride 0.9% 218 ml @ 0.05 MCG/KG/MIN 3. 732 mls/hr IV .Q24H [facility] Rx#:[id number] Output: Urine 1110 495 40 Other: Voiding Method Indwelling Catheter Indwelling Catheter ABP, PAP, CO, CI - Last Documented Arterial Blood Pressure 100/50 - Exam No acute distress intubated and sedated S1-S2 heard Lungs clear Edema Oral intubation Right groin Ricky Solitario catheter - Labs CBC & Chem 7: 04/14/19 07:09 04/14/19 07:09 Labs: Abnormal Lab Results - Last 24 Hours (Table) 04/13/19 04/13/19 04/13/19 Range/Units 11:37 14:50 18:55 WBC (3.8-10.6) k/uL RBC (3.80-5.40) m/uL Hgb (11.4-16.0) gm/dL Hct (34.0-46.0) % MCV (80.0-100.0) fL RDW (11.5-15.5) % Neutrophils # (Manual) (1.3-7.7) k/uL Metamyelocytes # (Man) (0) k/uL Myelocytes # (Manual) (0) k/uL Promyelocytes # (Man) (0) k/uL APTT 145.6 H* (22.0-30.0) sec Sodium (137-145) mmol/L BUN (7-17) mg/dL Creatinine (0.52-1.04) mg/dL Glucose (74-99) mg/dL POC Glucose (mg/dL) 112 H 123 H (75-99) mg/dL 04/14/19 04/14/19 04/14/19 Range/Units 00:01 00:28 06:15 WBC (3.8-10.6) k/uL RBC (3.80-5.40) m/uL Hgb (11.4-16.0) gm/dL Hct (34.0-46.0) % MCV (80.0-100.0) fL RDW (11.5-15.5) % Neutrophils # (Manual) (1.3-7.7) k/uL Metamyelocytes # (Man) (0) k/uL Myelocytes # (Manual) (0) k/uL Promyelocytes # (Man) (0) k/uL APTT 41.4 H (22.0-30.0) sec Sodium (137-145) mmol/L BUN (7-17) mg/dL Creatinine (0.52-1.04) mg/dL Glucose (74-99) mg/dL POC Glucose (mg/dL) 191 H 151 H (75-99) mg/dL 04/14/19 04/14/19 04/14/19 Range/Units 07:09 07:09 07:09 WBC 25.0 H (3.8-10.6) k/uL RBC 2.83 L (3.80-5.40) m/uL Hgb 9.3 L (11.4-16.0) gm/dL Hct 28.7 L (34.0-46.0) % MCV 101.2 H (80.0-100.0) fL RDW 15.6 H (11.5-15.5) % Neutrophils # (Manual) 17.20 H (1.3-7.7) k/uL Metamyelocytes # (Man) 1.25 H (0) k/uL Myelocytes # (Manual) 3.00 H (0) k/uL Promyelocytes # (Man) 0.25 H (0) k/uL APTT 48.5 H (22.0-30.0) sec Sodium 131 L (137-145) mmol/L BUN 30 H (7-17) mg/dL Creatinine 1.42 H (0.52-1.04) mg/dL Glucose 149 H (74-99) mg/dL POC Glucose (mg/dL) (75-99) mg/dL Microbiology - Last 24 Hours (Table) 04/09/19 12:40 Blood Culture - Preliminary Blood No Growth after 96 hours Assessment and Plan Assessment: #1 Nonoliguric acute kidney injury, suspect ischemic ATN, creatinine improving. #2 hyperkalemia with acute kidney injury requiring hemodialysis. #3 Ventricular Tachycardia status post cardiac cath followed by dialysis yesterday. #4 hyperkalemia resolved. #5 ventilator dependent respiratory failure #6 edema #7 shock on pressors Plan: #1 continue to monitor renal function, creatinine stable. #2 add Lasix 60 mg IV for push followed by a drip of 10 mg an hour. #3 wean off pressors #4 if she is responding to diuresis and good urine output continue diuresis with the goal of net -3 L per day if not plan hemodialysis tomorrow for ul trafiltration. #5 avoid nephrotoxic agents and hypotensive episodes.
[2019-04-14 11:48] LABS: Glucose,Whole Blood 160 mg/dL (75-99)
[2019-04-14] MEDS: FUROSEMIDE 100 MG in SODIUM CHLORIDE 0.9% 90 ML IV SCH ×2 (12:00→20:55)
--- NOTE | 2019-04-14 12:24 | PN ---
PROGRESS NOTE Carla is a 74-year-old lady who was admitted to hospital with symptomatic bradycardia secondary to hyperkalemia. Subsequently, she developed ventricular tachycardia/fibrillation, underwent cardiac catheterization that did not reveal significant new obstructive coronary artery disease. She has renal failure and is currently being dialyzed. She will receive dialysis tomorrow. Her hyperkalemia has improved and the bradycardia has resolved. She has had episodes of atrial fibrillation. She is currently on IV heparin. When she is extubated, we will switch her to Eliquis 5 b.i.d. On exam this morning, patient is intubated on vent. She is waking up. On exam, heart rate is 80 to 90 beats per minute. Blood pressure is 130/72. Chest exam reveals diminished air entry bilaterally. Heart exam reveals first and second heart sounds. No gallop. No murmur. Abdomen is soft. Exam of extremities reveals bilateral pitting edema. Labs showed that the hemoglobin is 9.3, platelet count is 170. Potassium is 4.7, creatinine is 1.4. ASSESSMENT: 1. Symptomatic bradycardia secondary to hyperkalemia, resolved. 2. Ventricular tachycardia fibrillation. 3. Status post cardiac cath. 4. End-stage renal disease on hemodialysis. 5. Paroxysmal atrial fibrillation. PLAN: Patient is doing much better. Hopefully will be extubated today. We will start the patient on Lasix. Once extubated, she will be started on oral anticoagulants. MMODL / IJN: [id number] /
[2019-04-14] MEDS: MIDODRINE 5 MG TAB PO SCH ×2 (13:00→16:52)
--- NOTE | 2019-04-14 13:20 | P.PN ---
Subjective Progress Note Date: 04/14/19 Principal diagnosis: Symptomatic bradycardia and hypotension with hyperkalemia This is a 74-year-old female with known history of multiple medical problems including diastolic congestive heart failure, hypertension, diabetes, coronary artery disease and previous stent placement, chronic low back pain, urinary incontinence, irritable bowel syndrome, cervical cancer and previous hysterectomy, patient was sent to the ER last night from the [facility] on the [address] with complaints of shortness of breath. Patient has been complaining of shortness of breath for the last 2-3 days. She was also complaining of right mid abdominal and right flank pain. She had no chest pain, no nausea no vomiting, no fever no chills no hemoptysis. Patient was feeling extremely tired and exhausted. Upon evaluation in the ER, patient was noted to be profoundly bradycardic, heart rate ranging between 40 and 60. Blood pressure on arrival was 76/61. Patient had a right femoral triple-lumen catheter placed by the ER physician, and she had fluid boluses at least 2 L were given in the form of 0.9 normal saline. Patient was placed on dopamine for her profound bradycardia, and she is presently on dopamine at 5 mcg/kg/m. Remained hypotensive, hence norepinephrine at 0.04 mcg/kg/m was added. Maintained on IV fluid at 100 mL/h, admitted to the ICU, and this consult was initiated. I evaluated the patient in the ICU, kept her on dopamine and norepinephrine, and she was seen by nephrology on consultation last night, patient underwent stat hemodialysis mostly because of her hyperkalemia and acute kidney injury. Reevaluated today on 04/11/2019, patient remains on norepinephrine at 0.04 mcg/ kg/m, blood pressure remains marginal, hence a left radial arterial line was placed. Patient is off dopamine, she is in sinus rhythm, and no further episodes of bradycardia. She is alert oriented 3, according to the nurse she had intermittent episodes of confusion, but her mental status seems to be intact this morning. Chest x-ray showed cardiomegaly and interstitial edema with bibasilar atelectasis. Electrolytes are much improved potassium is down to 5.2 BUN is 51 creatinine 2.31, no plans for dialysis today. WBC count is 16.3 hemoglobin is 9.7. Patient denies any shortness of breath, she feels generally weak. Patient was reevaluated today on 04/12/2019. Patient developed sustained v entricular tachycardia earlier this morning, patient was shocked about 6 times, she was given lidocaine and amiodarone as per cardiology at bedside, patient was intubated, and she was taken down for a cardiac catheterization by cardiology. I reviewed the ventilator settings, and I recommended tidal volume of 500, assist control rate of 20, FiO2 of 100% and PEEP of 5. ABG is pending. Cardiac catheterization report is pending but I was informed that she had no significant coronary artery disease to speak of. Chest x-ray showed bibasilar atelectasis, possibly infiltrates, patient may have developed some component of aspiration pneumonia. Labs today showed leukocytosis with WBC count of 22.9 hemoglobin 8.3, electrolytes are normal, BUN is 43 creatinine 2.0. Cardiology October he was concerned about the possibility of non-ST segment elevation myocardial infarction. Later on patient was noted to have atrial fibrillation with poorly controlled ventricular rate. And again her cardiac catheterization official report is pending Reevaluated today on 04/13/2019, patient remains intubated, on mechanical ventilation, her ventilator settings are assist control rate of 20 and I cut it down to 16 FiO2 is 40%, and I cut it down to 35%. Tidal volume is 500 remains the same and PEEP is at 5. Patient is requiring propofol at 50 mcg/kg/m, she is on norepinephrine at 0.05 mcg/kg/m. Amiodarone drip, Cardizem drip at 5 mg per hour. She is also on heparin. Her cardiac catheterization yesterday was basically unremarkable. Hence the bulb packer seems to be concerned about pulmonary embolism, clinically that is unlikely based on the clinical history, not to mention the patient has been on anticoagulation therapy all along since admission. At this point patient is not to get the CT of the chest, since the index of suspicion for pulmonary embolism is low and since her renal functioning is marginal. Would rather continue anticoagulation therapy and did not do a CT of the chest at this point. ABG today showed a pO2 of 133 pCO2 of 27 pH of 7.52 again her FiO2 was decreased down to 35%. Patient is sedated on propofol, and I plan to give the patient a sedation holiday, and hopefully assess mental status, no plans to wean and extubate at this point. Still concerned about her issue of an arrhythmia and recurrent episodes of ventricular tachycardia. Chest x-ray showed no significant interval change from before, there is vascular congestion and mild pulmonary edema with bibasilar atelectasis, doubt pneumonia Patient was reevaluated today on 04/24/2019 remains intubated, mechanically ventilated, but the settings are tidal volume of 500 assist control rate of 16 FiO2 of 35% and PEEP of 5. No ABG was done this morning, apparently her arterial line is nonfunctional. However the patient seems to be very comfortable, and she was given a weaning trial while I was at bedside. She had a relatively good weaning parameters, she had good tidal volume on pressure support of 8 and CPAP, her volume was around 450, her rate was in the high teens, and the patient was noted to be in no distress. 45 minutes on pressure support and CPAP were done, and I extubated the patient uneventfully. Chest x- ray continues to show some fluid overload, atelectasis at the bases, patient co ntinues to be swollen and edematous, and now she is placed on Lasix drip as per nephrology. WBC count today is 25 hemoglobin is 9.3 remains on heparin with a PTT of 48.5. Electrolytes are normal, BUN is 30 creatinine is 1.42. No arrhythmias noted over the last 24 hours. And the patient is on minimal dose of norepinephrine at 0.03 mcg/kg/m. This would likely be discontinued postextubation Objective - Vital Signs Vital signs: Vital Signs Temp 97.9 F 04/14/19 04:00 Pulse 67 04/14/19 11:00 Resp 26 H 04/14/19 11:00 BP 110/54 04/14/19 11:00 Pulse Ox 99 04/14/19 11:00 Intake & Output 04/13/19 04/14/19 04/14/19 18:59 06:59 18:59 Intake Total 861.166 281.792 117 Output Total 1110 495 220 Balance -248.834 -213.208 -103 Weight 167 kg Intake: IV 655 223 117 Levofloxacin 500Mg-D5w 100 Pmx 500 mg In Dextrose/ Water 1 100ml.bag @ 100 mls/hr IVPB Q48H [facility] Rx#: [id number] Normal Saline Pressure 30 3 12 Bag Sodium Chloride 0.9% 1, 150 000 ml @ 75 mls/hr IV . [id number] [facility] Rx#:[id number] sodium chloride 375 220 105 Intake, IV Titration 206.166 58.792 Amount Heparin Sod,Pork in 0.45% 165.115 58.792 NaCl 25,000 unit In 0.45 % NaCl 1 250ml.bag @ 6. 024 UNITS/KG/HR 10 mls/hr IV .Q24H [facility] Rx#: [id number] Norepinephrine 32 mg In 41.051 Sodium Chloride 0.9% 218 ml @ 0.05 MCG/KG/MIN 3. 732 mls/hr IV .Q24H [facility] Rx#:[id number] Output: Urine 1110 495 220 Other: Voiding Method Indwelling Catheter Indwelling Catheter Indwelling Catheter ABP, PAP, CO, CI - Last Documented Arterial Blood Pressure 72/61 - Exam Physical Exam: Revealed a 74-year-old female morbidly obese, on mechanical ventilation, awake, follows all instructions. Head: Atraumatic, normocephalic. Endotracheal tube and orogastric tube are intact. HEENT:[Neck is supple.] [No neck masses.] [No thyromegaly.] [No JVD.] PERRLA, EOMI, no icterus. Chest: [Diminished breath sounds bilaterally, minimal crackles at the bases Cardiac Exam: Distant S1 and S2, no S3 gallop, no murmur. No gallop.] Abdomen: [Morbidly obese, Soft, nontender, no megaly, no rebound, no guarding, normal bowel sounds.] Extremities: [No clubbing, 3+ bipedal bipedal edema, no cyanosis.] Neurological Exam: Arousable, awake, follows all simple instructions, in no distress. Skin: No rashes or petechiae. Psychiatric: Depressed mood, blunt affect, no gross focal neurologic deficits. - Labs CBC & Chem 7: 04/14/19 07:09 04/14/19 07:09 Labs: Abnormal Lab Results - Last 24 Hours (Table) 04/13/19 04/13/19 04/14/19 Range/Units 14:50 18:55 00:01 WBC (3.8-10.6) k/uL RBC (3.80-5.40) m/uL Hgb (11.4-16.0) gm/dL Hct (34.0-46.0) % MCV (80.0-100.0) fL RDW (11.5-15.5) % Neutrophils # (Manual) (1.3-7.7) k/uL Metamyelocytes # (Man) (0) k/uL Myelocytes # (Manual) (0) k/uL Promyelocytes # (Man) (0) k/uL APTT 145.6 H* 41.4 H (22.0-30.0) sec Sodium (137-145) mmol/L BUN (7-17) mg/dL Creatinine (0.52-1.04) mg/dL Glucose (74-99) mg/dL POC Glucose (mg/dL) 123 H (75-99) mg/dL 04/14/19 04/14/19 04/14/19 Range/Units 00:28 06:15 07:09 WBC 25.0 H (3.8-10.6) k/uL RBC 2.83 L (3.80-5.40) m/uL Hgb 9.3 L (11.4-16.0) gm/dL Hct 28.7 L (34.0-46.0) % MCV 101.2 H (80.0-100.0) fL RDW 15.6 H (11.5-15.5) % Neutrophils # (Manual) 17.20 H (1.3-7.7) k/uL Metamyelocytes # (Man) 1.25 H (0) k/uL Myelocytes # (Manual) 3.00 H (0) k/uL Promyelocytes # (Man) 0.25 H (0) k/uL APTT (22.0-30.0) sec Sodium (137-145) mmol/L BUN (7-17) mg/dL Creatinine (0.52-1.04) mg/dL Glucose (74-99) mg/dL POC Glucose (mg/dL) 191 H 151 H (75-99) mg/dL 04/14/19 04/14/19 04/14/19 Range/Units 07:09 07:09 11:47 WBC (3.8-10.6) k/uL RBC (3.80-5.40) m/uL Hgb (11.4-16.0) gm/dL Hct (34.0-46.0) % MCV (80.0-100.0) fL RDW (11.5-15.5) % Neutrophils # (Manual) (1.3-7.7) k/uL Metamyelocytes # (Man) (0) k/uL Myelocytes # (Manual) (0) k/uL Promyelocytes # (Man) (0) k/uL APTT 48.5 H (22.0-30.0) sec Sodium 131 L (137-145) mmol/L BUN 30 H (7-17) mg/dL Creatinine 1.42 H (0.52-1.04) mg/dL Glucose 149 H (74-99) mg/dL POC Glucose (mg/dL) 160 H (75-99) mg/dL Microbiology - Last 24 Hours (Table) 04/09/19 12:40 Blood Culture - Preliminary Blood No Growth after 96 hours Assessment and Plan Assessment: Impression: Acute hypoxic respiratory failure secondary to ventricular tachycardia followed by atrial fibrillation with RVR requiring intubation and mechanical ventilation. And shocking about 6 times. Followed by cardiac catheterization Symptomatic bradycardia with hypotension secondary to hyperkalemia. On presentation, resolved. Acute kidney injury secondary to acute tubular necrosis and hypotension with bradycardia. Improving.. Hyperkalemia secondary to acute kidney injury. Resolved Insulin dependent diabetes mellitus. History of coronary artery disease and previous stent placement Irritable bowel syndrome Chronic urinary incontinence History of cervical cancer and previous hysterectomy History of partial parathyroidectomy History of benign essential hypertension Chronic diastolic congestive heart failure Status post cardiac catheterization, no significant coronary artery disease Recommendation: Will plan pressure support and CPAP trial today, and we will extubate if tolerated.. Continue nutritional support, patient could be switched to oral feeding. If e xtubated. Continue GI and DVT prophylaxis. Continue bronchodilators. Continue antibiotics. , Is not clear whether the patient may have aspirated. Continue to monitor in the ICU. Critical care management is 32 minutes Prognosis remains fairly guarded. Nephrology is planning to start the patient on Lasix drip at 10 mg per hour We'll continue to follow. Time with Patient: Greater than 30
[2019-04-14] MEDS: HEPARIN SOD,PORK IN 0.45% NACL 25,000 UNIT in 0.45% NACL 1 250ML.BAG IV SCH (15:13)
--- NOTE | 2019-04-14 15:58 | P.PN ---
Subjective Progress Note Date: 04/14/19 Principal diagnosis: Sinus bradycardia/hypotension/hyperkalemia 74-year-old female with known history of multiple medical problems including diastolic congestive heart failure, hypertension, diabetes, coronary artery disease and previous stent placement, chronic low back pain, urinary incontinence, irritable bowel syndrome, cervical cancer and previous hysterectomy, patient was sent to the ER last night from the [facility] [place] with complaints of shortness of breath. Patient has been complaining of shortness of breath for the last 2-3 days. She was also complaining of right mid abdominal and right flank pain. She had no chest pain, no nausea no vomiting, no fever no chills no hemoptysis. Patient was feeling extremely tired and exhausted. Upon evaluation in the ER, patient was noted to be profoundly bradycardic, heart rate ranging between 40 and 60. Blood pressure on arrival was 76/61. Patient had a right femoral triple-lumen catheter placed by the ER physician, and she had fluid boluses at least 2 L were given in the form of 0.9 normal saline. Patient was placed on dopamine for her profound bradycardia, and she is presently on dopamine at 5 mcg/kg/m. Remained hypotensive, hence norepinephrine at 0.04 mcg/kg/m was added. Maintained on IV fluid at 100 mL/h, admitted to the ICU, and this consult was initiated. I evaluated the patient in the ICU, kept her on dopamine and norepinephrine, and she was seen by nephrology on consultation last night, patient underwent stat hemodialysis mostly because of her hyperkalemia and acute kidney injury. 04/12/2019. Patient developed sustained ventricular tachycardia earlier this morning, patient was shocked about 6 times, she was given lidocaine and amiodarone as per cardiology at bedside, patient was intubated, and she was taken down for a cardiac catheterization by cardiology. I reviewed the ventilator settings, and I recommended tidal volume of 500, assist control rate of 20, FiO2 of 100% and PEEP of 5. ABG is pending. Cardiac catheterization report is pending but I was informed that she had no significant coronary artery disease to speak of. Chest x-ray showed bibasilar atelectasis, possibly infiltrates, patient may have developed some component of aspiration pneumonia. Labs today showed leukocytosis with WBC count of 22.9 hemoglobin 8.3, electrolytes are normal, BUN is 43 creatinine 2.0. Cardiology October he was concerned about the possibility of non-ST segment elevation myocardial infarction. Later on patient was noted to have atrial fibrillation with poorly controlled ventricular rate. 04/13/2019 patient remains in ICU and intubated Patient remains on Amiodarone drip, Cardizem drip at 5 mg per hour and IV heparin. Cardiac catheterization yesterday was basically unremarkable. Cardiology remains concerned about pulmonary embolism, clinically that is unlikely based on the clinical history, not to mention the patient has been on anticoagulation therapy all along since admission. At this point patient is not to get the CT of the chest, since the index of suspicion for pulmonary embolism is low and since her renal functioning is marginal. ABG today showed a pO2 of 133 pCO2 of 27 pH of 7.52 again her FiO2 was decreased down to 35%. Chest x-ray showed no significant interval change from before, there is vascular congestion and mild pulmonary edema with bibasilar atelectasis, doubt pneumonia; pulmonary is planning to start with sedation holiday to assess mental status with no plans to extubate yet 04/14/2019 Patient remains in ICU and remains intubated, mechanically ventilated; she was given a weaning trial; has good weaning parameters per pulmonary Chest x-ray continues to show some fluid overload, atelectasis at the bases, patient continues to be swollen and edematous, and now she is placed on Lasix drip as per nephrology. WBC count today is 25 hemoglobin is 9.3 remains on heparin with a PTT of 48.5. Electrolytes are normal, BUN is 30 creatinine is 1.42. No arrhythmias noted over the last 24 hours. Objective - Vital Signs Vital signs: Vital Signs Temp 97.9 F 04/14/19 04:00 Pulse 67 04/14/19 11:00 Resp 26 H 04/14/19 11:00 BP 110/54 04/14/19 11:00 Pulse Ox 99 04/14/19 11:00 Intake & Output 04/13/19 04/14/19 04/14/19 18:59 06:59 18:59 Intake Total 861.166 281.792 117 Output Total 1110 495 220 Balance -248.834 -213.208 -103 Weight 167 kg Intake: IV 655 223 117 Levofloxacin 500Mg-D5w 100 Pmx 500 mg In Dextrose/ Water 1 100ml.bag @ 100 mls/hr IVPB Q48H JAVIER Rx#: [id number] Normal Saline Pressure 30 3 12 Bag Sodium Chloride 0.9% 1, 150 000 ml @ 75 mls/hr IV . [id number] JAVIER Rx#:[id number] sodium chloride 375 220 105 Intake, IV Titration 206.166 58.792 Amount Heparin Sod,Pork in 0.45% 165.115 58.792 NaCl 25,000 unit In 0.45 % NaCl 1 250ml.bag @ 6. 024 UNITS/KG/HR 10 mls/hr IV .Q24H JAVIER Rx#: [id number] Norepinephrine 32 mg In 41.051 Sodium Chloride 0.9% 218 ml @ 0.05 MCG/KG/MIN 3. 732 mls/hr IV .Q24H JAVIER Rx#:[id number] Output: Urine 1110 495 220 Other: Voiding Method Indwelling Catheter Indwelling Catheter Indwelling Catheter ABP, PAP, CO, CI - Last Documented Arterial Blood Pressure 72/61 - Exam 74-year-old female morbidly obese, on mechanical ventilation, sedated. Head: Atraumatic, normocephalic. Endotracheal tube and orogastric tube are intact. HEENT:[Neck is supple.] [No neck masses.] [No thyromegaly.] [No JVD.] PERRLA, EOMI, no icterus. Chest: [Diminished breath sounds crackles and rhonchi noted bilaterally Cardiac Exam: Distant S1 and S2, no S3 gallop, no murmur. No gallop.] Abdomen: [Morbidly obese, Soft, nontender, no megaly, no rebound, no guarding, normal bowel sounds.] Extremities: [No clubbing, trace of bipedal edema, no cyanosis.] Neurological Exam: Sedated. - Labs CBC & Chem 7: 04/14/19 07:09 04/14/19 07:09 Labs: Abnormal Lab Results - Last 24 Hours (Table) 04/13/19 04/13/19 04/13/19 Range/Units 11:37 14:50 18:55 WBC (3.8-10.6) k/uL RBC (3.80-5.40) m/uL Hgb (11.4-16.0) gm/dL Hct (34.0-46.0) % MCV (80.0-100.0) fL RDW (11.5-15.5) % Neutrophils # (Manual) (1.3-7.7) k/uL Metamyelocytes # (Man) (0) k/uL Myelocytes # (Manual) (0) k/uL Promyelocytes # (Man) (0) k/uL APTT 145.6 H* (22.0-30.0) sec Sodium (137-145) mmol/L BUN (7-17) mg/dL Creatinine (0.52-1.04) mg/dL Glucose (74-99) mg/dL POC Glucose (mg/dL) 112 H 123 H (75-99) mg/dL 04/14/19 04/14/19 04/14/19 Range/Units 00:01 00:28 06:15 WBC (3.8-10.6) k/uL RBC (3.80-5.40) m/uL Hgb (11.4-16.0) gm/dL Hct (34.0-46.0) % MCV (80.0-100.0) fL RDW (11.5-15.5) % Neutrophils # (Manual) (1.3-7.7) k/uL Metamyelocytes # (Man) (0) k/uL Myelocytes # (Manual) (0) k/uL Promyelocytes # (Man) (0) k/uL APTT 41.4 H (22.0-30.0) sec Sodium (137-145) mmol/L BUN (7-17) mg/dL Creatinine (0.52-1.04) mg/dL Glucose (74-99) mg/dL POC Glucose (mg/dL) 191 H 151 H (75-99) mg/dL 04/14/19 04/14/19 04/14/19 Range/Units 07:09 07:09 07:09 WBC 25.0 H (3.8-10.6) k/uL RBC 2.83 L (3.80-5.40) m/uL Hgb 9.3 L (11.4-16.0) gm/dL Hct 28.7 L (34.0-46.0) % MCV 101.2 H (80.0-100.0) fL RDW 15.6 H (11.5-15.5) % Neutrophils # (Manual) 17.20 H (1.3-7.7) k/uL Metamyelocytes # (Man) 1.25 H (0) k/uL Myelocytes # (Manual) 3.00 H (0) k/uL Promyelocytes # (Man) 0.25 H (0) k/uL APTT 48.5 H (22.0-30.0) sec Sodium 131 L (137-145) mmol/L BUN 30 H (7-17) mg/dL Creatinine 1.42 H (0.52-1.04) mg/dL Glucose 149 H (74-99) mg/dL POC Glucose (mg/dL) (75-99) mg/dL Microbiology - Last 24 Hours (Table) 04/09/19 12:40 Blood Culture - Preliminary Blood No Growth after 96 hours Assessment and Plan Assessment: Acute hypoxic respiratory failure secondary to ventricular tachycardia followed by atrial fibrillation with RVR requiring intubation and mechanical ventilation. And shocking about 6 times. Symptomatic bradycardia with hypotension secondary to hyperkalemia. Acute kidney injury secondary to acute tumor necrosis and hypotension with bradycardia. Hyperkalemia secondary to acute kidney injury. Insulin dependent diabetes mellitus. History of coronary artery disease and previous stent placement Irritable bowel syndrome Chronic urinary incontinence History of cervical cancer and previous hysterectomy History of partial parathyroidectomy History of benign essential hypertension Chronic diastolic congestive heart failure Status post cardiac catheterization, official report is pending. Recommendation: Continue ventilatory support, and adjust ventilator settings accordingly. Start the nutritional support via enteral feeding. Continue GI and DVT prophylaxis. Continue bronchodilators. Continue antibiotics. , Is not clear whether the patient may have aspirated. Continue to monitor in the ICU. Critical care time is 34 minutes. We'll continue to follow. Prognosis is guarded
[2019-04-14] MEDS: NOREPINEPHRINE 32 MG in SODIUM CHLORIDE 0.9% 218 ML IV SCH (16:51)
[2019-04-14 17:14] LABS: HCT 29.5 % (34.0-46.0); HGB 8.9 gm/dL (11.4-16.0); Hypochromasia Moderate; MCH 31.9 pg (25.0-35.0); MCHC 30.2 g/dL (31.0-37.0); MCV 105.4 fL (80.0-100.0); Macrocytosis Moderate; Mean Platelet Volume 7.3; Platelet Count 156 k/uL (150-450); RDW 15.8 % (11.5-15.5); WBC 22.3 k/uL (3.8-10.6)
[2019-04-14 17:22] LABS: Albumin 2.6 g/dL (3.5-5.0); Calcium 8.2 mg/dL (8.4-10.2); Potassium 4.7 mmol/L (3.5-5.1); Total Bilirubin 0.7 mg/dL (0.2-1.3); Total Protein 5.1 g/dL (6.3-8.2)
[2019-04-14 18:02] LABS: Band Neutrophils % 5 %; Lymphocytes # (M) 1.78 k/uL (1.0-4.8); Metamyelocytes # (M) 1.12 k/uL (0); Metamyelocytes % 5 %; Monocytes # (M) 1.12 k/uL (0-1.0); Myelocytes # (M) 0.89 k/uL (0); Myelocytes % 4 %; Neutrophils % (M) 73 %; Nucleated Red Blood Cells 0 /100 WBC (0-0); Total Cells Counted 100
[2019-04-14 18:05] LABS: Poikilocytosis (M) Present
[2019-04-14] MEDS ORDERED: VANCOMYCIN 2,000 MG in SODIUM CHLORIDE 0.9% 500 ML 500 ML IVPB ONE (20:00)
[2019-04-14] MEDS: INSULIN DETEMIR (LEVEMIR) 100 UNIT/ML SYR SQ SCH (23:05)
[2019-04-14] MEDS: ARIPiprazole 5 MG TAB PO SCH (23:24)
[2019-04-14] MEDS: CHOLECALCIFEROL 1,000 UNIT TAB PO SCH (23:24)
[2019-04-14] MEDS: ATORVASTATIN 40 MG TAB PO SCH (23:24)
[2019-04-14] MEDS: MONTELUKAST 10 MG TAB PO SCH (23:25)
[2019-04-15] LABS: Glucose,Whole Blood 200 mg/dL (75-99)
[2019-04-15] MEDS: INSULIN ASPART (NovoLOG) 100 UNIT/ML VIAL SQ SCH ×4 (00:27→17:59)
[2019-04-15 04:32] LABS: Anisocytosis Slight; HCT 26.7 % (34.0-46.0); HGB 8.9 gm/dL (11.4-16.0); MCH 33.2 pg (25.0-35.0); MCHC 33.3 g/dL (31.0-37.0); Macrocytosis Slight; Platelet Count 176 k/uL (150-450); RBC 2.67 m/uL (3.80-5.40); RDW 16.1 % (11.5-15.5); WBC 25.2 k/uL (3.8-10.6)
[2019-04-15 04:51] LABS: MCV 99.9 fL (80.0-100.0)
[2019-04-15 05:58] LABS: Band Neutrophils % 13 %; Eosinophils # (M) 1.01 k/uL (0-0.7); Lymphocytes # (M) 2.77 k/uL (1.0-4.8); Metamyelocytes # (M) 1.01 k/uL (0); Metamyelocytes % 4 %; Monocytes # (M) 3.28 k/uL (0-1.0); Myelocytes # (M) 2.02 k/uL (0); Myelocytes % 8 %; Neutrophils % (M) 47 %; Nucleated Red Blood Cells 0 /100 WBC (0-0); Promyelocytes # (M) 0.25 k/uL (0); Promyelocytes % 1 %; Total Cells Counted 200; Toxic Granulation Present
[2019-04-15 05:59] LABS: Polychromasia Present
[2019-04-15] MEDS: FUROSEMIDE 100 MG in SODIUM CHLORIDE 0.9% 90 ML IV SCH ×2 (06:00→15:31)
[2019-04-15 06:11] LABS: Calcium 8.7 mg/dL (8.4-10.2)
[2019-04-15 06:12] LABS: Potassium 4.6 mmol/L (3.5-5.1)
[2019-04-15 06:13] LABS: Glucose,Whole Blood 187 mg/dL (75-99)
[2019-04-15] MEDS: GABAPENTIN 100 MG CAP PO SCH ×2 (07:52→22:01)
[2019-04-15] MEDS: MIDODRINE 5 MG TAB PO SCH ×3 (07:53→15:33)
--- NOTE | 2019-04-15 08:15 | XR ---
EXAMINATION TYPE: XR chest 1V portable DATE OF EXAM: 04/15/2019 COMPARISON: 04/14/2019 HISTORY: Shortness of breath FINDINGS: There are bilateral pleural effusions with cardiomegaly and bibasilar infiltrate. There is a diffuse interstitial pattern. ET and NG tube have been removed. Metallic density along the soft tissues of t he neck. IMPRESSION: 1. Correlate for CHF otherwise consider pneumonia
[2019-04-15] MEDS ORDERED: LEVOFLOXACIN 750MG-D5W PMX 750 MG in DEXTROSE/WATER 1 150ML.BAG IVPB SCH (09:00)
[2019-04-15] MEDS: BUDESONIDE 1 MG/2 ML NEBU INHALATION SCH ×2 (09:43→21:07)
[2019-04-15] MEDS: CITALOPRAM HYDROBROMIDE 10 MG TAB PO SCH (09:43)
[2019-04-15] MEDS: AMIODARONE 200 MG TAB PO SCH ×2 (09:43→21:56)
[2019-04-15] MEDS: ASPIRIN 81 MG PO SCH (09:43)
[2019-04-15] MEDS: CHLORHEXIDINE GLUCONATE 15 ML CUP MUCOUS MEM SCH (09:43)
[2019-04-15] MEDS: FERROUS SULFATE 325 MG TAB PO SCH (09:44)
[2019-04-15] MEDS: PANTOPRAZOLE 40 MG TABLET PO SCH (09:44)
[2019-04-15] MEDS: CLOPIDOGREL 75 MG TAB PO SCH (09:44)
[2019-04-15] MEDS: CITALOPRAM HYDROBROMIDE 20 MG TAB PO SCH (09:44)
[2019-04-15] MEDS: ISOSORBIDE MONONITRATE ER 30 MG TAB.ER.24H PO SCH ×2 (09:44→21:57)
[2019-04-15] MEDS: METOPROLOL TARTRATE 25 MG TAB PO SCH ×2 (09:44→21:57)
--- NOTE | 2019-04-15 10:03 | P.PN ---
Subjective Progress Note Date: 04/15/19 Principal diagnosis: Symptomatic bradycardia, hypotension and hyperkalemia This is a 74-year-old female with known history of multiple medical problems including diastolic congestive heart failure, hypertension, diabetes, coronary artery disease and previous stent placement, chronic low back pain, urinary incontinence, irritable bowel syndrome, cervical cancer and previous hyst erectomy, patient was sent to the ER last night from the [facility] on the [place] with complaints of shortness of breath. Patient has been complaining of shortness of breath for the last 2-3 days. She was also complaining of right mid abdominal and right flank pain. She had no chest pain, no nausea no vomiting, no fever no chills no hemoptysis. Patient was feeling extremely tired and exhausted. Upon evaluation in the ER, patient was noted to be profoundly bradycardic, heart rate ranging between 40 and 60. Blood pressure on arrival was 76/61. Patient had a right femoral triple-lumen catheter placed by the ER physician, and she had fluid boluses at least 2 L were given in the form of 0.9 normal saline. Patient was placed on dopamine for her profound bradycardia, and she is presently on dopamine at 5 mcg/kg/m. Remained hypotensive, hence norepinephrine at 0.04 mcg/kg/m was added. Maintained on IV fluid at 100 mL/h, admitted to the ICU, and this consult was initiated. I evaluated the patient in the ICU, kept her on dopamine and norepinephrine, and she was seen by nephrology on consultation last night, patient underwent stat hemodialysis mostly because of her hyperkalemia and acute kidney injury. Reevaluated today on 04/11/2019, patient remains on norepinephrine at 0.04 mcg/kg/m, blood pressure remains marginal, hence a left radial arterial line was placed. Patient is off dopamine, she is in sinus rhythm, and no further episodes of bradycardia. She is alert oriented 3, according to the nurse she had intermittent episodes of confusion, but her mental status seems to be intact this morning. Chest x-ray showed cardiomegaly and interstitial edema with bibasilar atelectasis. Electrolytes are much improved potassium is down to 5.2 BUN is 51 creatinine 2.31, no plans for dialysis today. WBC count is 16.3 hemoglobin is 9.7. Patient denies any shortness of breath, she feels generally weak. Patient was reevaluated today on 04/12/2019. Patient developed sustained ventri cular tachycardia earlier this morning, patient was shocked about 6 times, she was given lidocaine and amiodarone as per cardiology at bedside, patient was intubated, and she was taken down for a cardiac catheterization by cardiology. I reviewed the ventilator settings, and I recommended tidal volume of 500, assist control rate of 20, FiO2 of 100% and PEEP of 5. ABG is pending. Cardiac catheterization report is pending but I was informed that she had no significant coronary artery disease to speak of. Chest x-ray showed bibasilar atelectasis, possibly infiltrates, patient may have developed some component of aspiration pneumonia. Labs today showed leukocytosis with WBC count of 22.9 hemoglobin 8.3, electrolytes are normal, BUN is 43 creatinine 2.0. Cardiology October he was concerned about the possibility of non-ST segment elevation myocardial infarction. Later on patient was noted to have atrial fibrillation with poorly controlled ventricular rate. And again her cardiac catheterization official report is pending Reevaluated today on 04/13/2019, patient remains intubated, on mechanical ventilation, her ventilator settings are assist control rate of 20 and I cut it down to 16 FiO2 is 40%, and I cut it down to 35%. Tidal volume is 500 remains the same and PEEP is at 5. Patient is requiring propofol at 50 mcg/kg/m, she is on norepinephrine at 0.05 mcg/kg/m. Amiodarone drip, Cardizem drip at 5 mg per hour. She is also on heparin. Her cardiac catheterization yesterday was basically unremarkable. Hence the blanker operator seems to be concerned about pulmonary embolism, clinically that is unlikely based on the clinical history, not to mention the patient has been on anticoagulation therapy all along since admission. At this point patient is not to get the CT of the chest, since the index of suspicion for pulmonary embolism is low and since her renal functioning is marginal. Would rather continue anticoagulation therapy and did not do a CT of the chest at this point. ABG today showed a pO2 of 133 pCO2 of 27 pH of 7.52 again her FiO2 was decreased down to 35%. Patient is sedated on propofol, and I plan to give the patient a sedation holiday, and hopefully assess mental status, no plans to wean and extubate at this point. Still concerned about her issue of an arrhythmia and recurrent episodes of ventricular tachycardia. Chest x-ray showed no significant interval change from before, there is vascular congestion and mild pulmonary edema with bibasilar atelectasis, doubt pneumonia Patient was reevaluated today on 04/24/2019 remains intubated, mechanically ventilated, but the settings are tidal volume of 500 assist control rate of 16 FiO2 of 35% and PEEP of 5. No ABG was done this morning, apparently her arterial line is nonfunctional. However the patient seems to be very comfortable, and she was given a weaning trial while I was at bedside. She had a relatively good weaning parameters, she had good tidal volume on pressure support of 8 and CPAP, her volume was around 450, her rate was in the high teens, and the patient was noted to be in no distress. 45 minutes on pressure support and CPAP were done, and I extubated the patient uneventfully. Chest x- ray continues to show some fluid overload, atelectasis at the bases, patient continues to be swollen and edematous, and now she is placed on Lasix drip as per nephrology. WBC count today is 25 hemoglobin is 9.3 remains on heparin with a PTT of 48.5. Electrolytes are normal, BUN is 30 creatinine is 1.42. No arrhythmias noted over the last 24 hours. And the patient is on minimal dose of norepinephrine at 0.03 mcg/kg/m. This would likely be discontinued postextubation On 04/15/2011 patient seen in follow-up in the intensive care unit, she is awake, remains very confused, at times she is calling out for help, appears to be in any acute distress, no signs of any respiratory distress, she is on 2 L of oxygen with pulse ox of 98%, she is afebrile, she remains on small amount of leukocyte at 8 mics per minute, maintenance IV fluids are 0.9 normal saline at a rate of 20 ML per hour, Lasix drip is at 10 mg per hour, and heparin per weight- based protocol. Remains in sinus rhythm on the monitor with a controlled rate, patient is receiving a combination of oral amiodarone, Lopressor, for recent history of ventricular tachycardia. No complaints of chest pain. She is rece iving midodrine for hypotension which we can increase to 10 mg 3 times daily. She remains on empiric antibiotics with Levaquin and vancomycin. There is no cough, no sputum production, blood and urine cultures have shown no growth so far. Today's labs have been reviewed, white blood cell count is trending up, 25.2 and today's labs, hemoglobin is 8.9, sodium is 132, demonstrates electrolytes were within normal limits, renal profile is relatively stable with BUN of 33 and creatinine of 1.5. Today's chest x-ray has been reviewed showing bilateral pleural effusions, cardiomegaly and bibasilar infiltrates, diffuse interstitial pattern. No fever or chills. Remains on Lasix infusion, the patie nt is only modestly in negative fluid balance, still has significant amount of fluid in his abdominal wall, and generalized anasarca. She still has a hemodialysis catheter in her left groin and his central line venous catheter in the right groin, patient has skin breakdown in the groin folds. Patient has not been able to pass a swallow evaluation, in her oral medications have been on hold and patient remains nothing by mouth until seen by speech therapy. Objective - Vital Signs Vital signs: Vital Signs Temp 98.0 F 04/15/19 04:00 Pulse 88 04/15/19 07:00 Resp 22 04/15/19 07:00 BP 100/48 04/14/19 21:00 Pulse Ox 98 04/15/19 07:00 Intake & Output 04/14/19 04/15/19 04/15/19 18:59 06:59 18:59 Intake Total 313 360.000 15 Output Total 365 735 100 Balance -52 -375.000 -85 Weight 177 kg Intake: IV 313 180 15 0.9 NS 280 180 15 Normal Saline Pressure 33 Bag Intake, IV Titration 180.000 Amount Furosemide 100 mg In 180.000 Sodium Chloride 0.9% 90 ml @ 10 MG/HR 10 mls/hr IV .Q10H JAVIER Rx#: [id number] Norepinephrine 32 mg In 0 Sodium Chloride 0.9% 218 ml @ 0.05 MCG/KG/MIN 3. 732 mls/hr IV .Q24H JAVIER Rx#:[id number] Output: Urine 365 735 100 Other: Voiding Method Indwelling Catheter Indwelling Catheter ABP, PAP, CO, CI - Last Documented Arterial Blood Pressure 101/81 - Exam GENERAL EXAM: Alert, confused, 74-year-old obese white female, 2 L of oxygen with pulse ox of 98%, answers simple questions, but is unable to answer where she is, or the date, no sign of any respiratory distress, comfortable in no apparent distress. HEAD: Normocephalic/atraumatic. EYES: Normal reaction of pupils, equal size. Conjunctiva pink, sclera white. NOSE: Clear with pink turbinates. THROAT: No erythema or exudates. NECK: No masses, no JVD, no thyroid enlargement, no adenopathy. CHEST: No chest wall deformity. Symmetrical expansion. LUNGS: Diminished air entry with no crackles, wheeze, rhonchi or dullness. CVS: Regular rate and rhythm, normal S1 and S2, no gallops, no murmurs, no rubs ABDOMEN: Soft, obese, with a significant amount of abdominal wall edema. No hepatosplenomegaly, normal bowel sounds, no guarding or rigidity. EXTREMITIES: No clubbing, no cyanosis, 2+ pulses and upper and lower extremities. Significant amount of upper and lower extremity edema anasarca, and edema of abdominal wall MUSCULOSKELETAL: Muscle strength and tone normal. SPINE: No scoliosis or deformity SKIN: Groin folds positive for redness, moisture and rash patient has hemodialysis catheter in the left groin in right groin central catheter CENTRAL NERVOUS SYSTEM: Alert and oriented -3. No focal deficits, tone is normal in all 4 extremities. PSYCHIATRIC: Alert and oriented -3. Appropriate affect. Intact judgment and insight. - Labs CBC & Chem 7: 04/15/19 04:19 04/15/19 04:19 Labs: Abnormal Lab Results - Last 24 Hours (Table) 04/14/19 04/14/19 04/14/19 Range/Units 11:47 16:59 16:59 WBC 22.3 H (3.8-10.6) k/uL RBC 2.80 L (3.80-5.40) m/uL Hgb 8.9 L (11.4-16.0) gm/dL Hct 29.5 L (34.0-46.0) % MCV 105.4 H (80.0-100.0) fL MCHC 30.2 L (31.0-37.0) g/dL RDW 15.8 H (11.5-15.5) % Neutrophils # (Manual) 17.30 H (1.3-7.7) k/uL Monocytes # (Manual) 1.12 H (0-1.0) k/uL Eosinophils # (Manual) (0-0.7) k/uL Metamyelocytes # (Man) 1.12 H (0) k/uL Myelocytes # (Manual) 0.89 H (0) k/uL Promyelocytes # (Man) (0) k/uL APTT (22.0-30.0) sec Sodium 131 L (137-145) mmol/L Carbon Dioxide 21 L (22-30) mmol/L BUN 31 H (7-17) mg/dL Creatinine 1.59 H (0.52-1.04) mg/dL Glucose 171 H (74-99) mg/dL POC Glucose (mg/dL) 160 H (75-99) mg/dL Calcium 8.2 L (8.4-10.2) mg/dL Total Protein 5.1 L (6.3-8.2) g/dL Albumin 2.6 L (3.5-5.0) g/dL 04/14/19 04/15/19 04/15/19 Range/Units 23:59 04:19 04:19 WBC 25.2 H (3.8-10.6) k/uL RBC 2.67 L (3.80-5.40) m/uL Hgb 8.9 L (11.4-16.0) gm/dL Hct 26.7 L (34.0-46.0) % MCV (80.0-100.0) fL MCHC (31.0-37.0) g/dL RDW 16.1 H (11.5-15.5) % Neutrophils # (Manual) 15.10 H (1.3-7.7) k/uL Monocytes # (Manual) 3.28 H (0-1.0) k/uL Eosinophils # (Manual) 1.01 H (0-0.7) k/uL Metamyelocytes # (Man) 1.01 H (0) k/uL Myelocytes # (Manual) 2.02 H (0) k/uL Promyelocytes # (Man) 0.25 H (0) k/uL APTT (22.0-30.0) sec Sodium 132 L (137-145) mmol/L Carbon Dioxide (22-30) mmol/L BUN 33 H (7-17) mg/dL Creatinine 1.55 H (0.52-1.04) mg/dL Glucose 175 H (74-99) mg/dL POC Glucose (mg/dL) 200 H (75-99) mg/dL Calcium (8.4-10.2) mg/dL Total Protein (6.3-8.2) g/dL Albumin (3.5-5.0) g/dL 04/15/19 04/15/19 Range/Units 04:19 06:11 WBC (3.8-10.6) k/uL RBC (3.80-5.40) m/uL Hgb (11.4-16.0) gm/dL Hct (34.0-46.0) % MCV (80.0-100.0) fL MCHC (31.0-37.0) g/dL RDW (11.5-15.5) % Neutrophils # (Manual) (1.3-7.7) k/uL Monocytes # (Manual) (0-1.0) k/uL Eosinophils # (Manual) (0-0.7) k/uL Metamyelocytes # (Man) (0) k/uL Myelocytes # (Manual) (0) k/uL Promyelocytes # (Man) (0) k/uL APTT 55.8 H (22.0-30.0) sec Sodium (137-145) mmol/L Carbon Dioxide (22-30) mmol/L BUN (7-17) mg/dL Creatinine (0.52-1.04) mg/dL Glucose (74-99) mg/dL POC Glucose (mg/dL) 187 H (75-99) mg/dL Calcium (8.4-10.2) mg/dL Total Protein (6.3-8.2) g/dL Albumin (3.5-5.0) g/dL Microbiology - Last 24 Hours (Table) 04/09/19 12:40 Blood Culture - Preliminary Blood No Growth after 120 hours Assessment and Plan Plan: Assessment: #1. Acute hypoxic respiratory failure secondary to ventricular tachycardia, A. fib with RVR, congestive heart failure, requiring intubation and mechanical ventilation. Patient was intubated on 04/12/2019 and successfully weaned and extubated on 04/14/2019. Patient is status post synchronized cardioversion 6 with successful conversion to sinus rhythm, cardiac catheterization did not show significant obstructive coronary artery disease #2. Acute exacerbation of congestive heart failure with preserved ventricular systolic function and EF of 50-55% #3. Symptomatic bradycardia with hypotension related to hyperkalemia on presentation, resolved #4. Acute kidney injury secondary to acute tubular necrosis and hypotension and bradycardia, improving #5. Leukocytosis, patient is empirically covered with Rocephin and vancomycin has had no fever. Urine and blood cultures have shown no growth #6. Hyperkalemia secondary to a TIA resolved #7. Insulin dependent diabetes mellitus #8. History of coronary artery disease and previous stent placement #9. Irritable bowel syndrome #10. Chronic urinary incontinence #11. History of cervical cancer previous hysterectomy #12. History of partial parathyroidectomy #13. History of benign essential hypertension #14. Chronic diastolic CHF #15. Status post cardiac catheterization no significant coronary artery disease #16. Metabolic encephalopathy Plan: We'll consult nephrology whether the hemodialysis catheter can be removed, we'll remove the right groin central venous catheter, tinea empiric antibiotics, patient is afebrile, cultures are negative thus far, chest x-ray today shows changes consistent with congestive heart failure and fluid overload, continue Lasix drip, increase midodrine to 10 mg 3 times a day, will hold beta blockers, patient has had no recurrence of ventricular tachycardia or A. fib. Obtain serum cortisol. Continue GI and DVT prophylaxis, maintaining safety precautions, speech evaluation. We'll continue to monitor in the intensive care unit, I performed a history & physical examination of the patient and discussed their management with my nurse practitioner, Norma Avila. I reviewed the nurse practitioner's note and agree with the documented findings and plan of care. Lung sounds are positive for diminished breath sounds. The findings and the impression was discussed with the patient. I attest to the documentation by the nurse practitioner. Time with Patient: Greater than 30
--- NOTE | 2019-04-15 10:30 | CDI ---
Documentation Clarification Form Date: 04/15/2019 10:17:09 AM From: Stephenie Rodriguez RN, CCDS Admit Date: 04/09/2019 01:51:00 PM Patient Name: Carla Garvin Visit Number: [id number] ATTENTION: The Clinical Documentation Specialists (CDI) and [facility] Coding Staff appreciate your assistance in clarifying documentation. Please respond to the clarification below the line at the bottom and electronically sign. The CDI & [facility] Coding staff will review the response and follow-up if needed. Please note: Queries are made part of the Legal Health Record. If you have any questions, please contact the author of this message via ITS. Dr. Yi A diagnosis of anemia lacks specificity to accurately reflect your patients severity of condition and clarification is needed. History/Risk Factors: Anemia, Acute on Chronic renal failure, CAD, PUD, Hemorrhoids Clinical indicators: Hemoglobin: 10/10.2/9.7/8.3/8.6/8.9 Hematocrit: 30.9/27.5/26.4/29.5/26.7 Treatment: monitoring labs Feosol 325 mg PO QD In order to capture the severity of condition, please clarify the type of anemia and etiology if known: Acute blood loss anemia Acute on chronic blood loss anemia Chronic blood loss anemia Iron deficiency anemia Nutritional anemia Anemia of chronic kidney disease Unable to determine Other, please specify (Last Revision: December 2016) MTDD
[2019-04-15 11:52] LABS: Glucose,Whole Blood 182 mg/dL (75-99)
--- NOTE | 2019-04-15 12:45 | PN ---
PROGRESS NOTE This is a 74-year-old lady that is admitted to hospital with symptomatic bradycardia secondary to hyperkalemia. She is extubated, appears somewhat confused. PHYSICAL EXAMINATION: On exam, heart rate is 79 beats per minute. Blood pressure is 112/52. Respiratory rate is 18. Chest exam reveals diminished air entry at the bases. Heart exam reveals first and second heart sounds. No gallop. Exam of extremities reveals bilateral pitting edema. ASSESSMENT: 1. History of ventricular tachycardia fibrillation. 2. Paroxysmal atrial fibrillation. 3. Respiratory failure. 4. Coronary artery disease. PLAN: I will continue with the IV heparin. Once the patient is able to take oral medications, we will start her on Eliquis. I am going to decrease the dose of Cordarone to 200 b.i.d. in 48 hours. She will continue the Lasix drip that she is currently on. MMSTEPHENIE / FARSHAD: [id number] /
[2019-04-15] MEDS ORDERED: LIDOCAINE 1% INJ 10MG/ML (20 ML MDV) ONE (13:01)
[2019-04-15] MEDS ORDERED: LIDOCAINE 1% INJ 10MG/ML (20 ML MDV) SQ ONE (13:29)
--- NOTE | 2019-04-15 14:00 | XR ---
EXAMINATION TYPE: XR chest 1V portable DATE OF EXAM: 04/15/2019 COMPARISON: 04/15/2019 HISTORY: Post PICC line placement TECHNIQUE: Single frontal view of the chest is obtained. FINDINGS: Cardiomegaly with atherosclerotic change aorta. Right-sided PICC line at the level of the SVC. Bilateral consolidation and pleural effusion. Biapical pleural thickening. Surgical clips overly ing the neck. Diffuse interstitial pattern. IMPRESSION: 1. PICC line appears in good position. 2. Correlate for CHF otherwise consider pneumonia. Findings stable.
[2019-04-15] MEDS ORDERED: HYDROCORTISONE SUCCINATE 100 MG/2 ML VIAL IV STA (14:15)
[2019-04-15] MEDS: HEPARIN SOD,PORK IN 0.45% NACL 25,000 UNIT in 0.45% NACL 1 250ML.BAG IV SCH (15:32)
[2019-04-15] MEDS: NOREPINEPHRINE 32 MG in SODIUM CHLORIDE 0.9% 218 ML IV SCH (15:32)
--- NOTE | 2019-04-15 15:55 | PN ---
PROGRESS NOTE Patient is seen for followup for acute kidney injury. She had been on hemodialysis for severe hyperkalemia and acute kidney injury. However, renal function is fairly stable and potassium is staying at about 4.5 to 4.6 mEq/L. Patient's last dialysis was on 03/12/2019. She is currently maintained on Lasix drip and has had fairly good urine output, with urine output of about 100 to 150 mL/hour. Creatinine is staying at about 1.5 mg/dL for the last 2 days. PHYSICAL EXAMINATION: Patient is comfortable. She is not in any acute distress. Blood pressure this morning 114/47, heart rate 79 per minute. She is afebrile. EXAMINATION OF THE HEART: S1 and S2. EXAMINATION OF LUNGS: Decreased breath sounds at bases. Patient is obese. Examination of lower extremities shows edema 4+ bilaterally. SUPPLY CHAIN BUYER cannot be examined in detail; however, patient does respond to verbal stimuli and had been following commands for nursing staff. LABS: Hemoglobin 8.9 g/dL, sodium of 132, potassium 4.6, chloride 100, BUN 33, creatinine 1.5, calcium 8.7. ASSESSMENT: 1. Acute kidney injury, acute tubular necrosis, currently nonoliguric with stable renal function, status post hemodialysis mainly for severe hyperkalemia and severe acute kidney injury. Renal function currently staying stable. We will discontinue the femoral dialysis catheter and continue to hold off on dialysis for now. 2. Severe hyperkalemia associated with acute kidney injury, currently improved. Continue with Lasix drip. 3. Severe volume overload, maintained on Lasix drip, which I will continue for now. 4. Vent-dependent respiratory failure; currently extubated. 5. Ventricular tachycardia, status post cardiac catheterization. PLAN: Discontinue femoral dialysis catheter. Continue with Lasix drip. Repeat labs in a.m. Continue to avoid nephrotoxic agents. MMODL / IJN: [id number] /
--- NOTE | 2019-04-15 17:45 | P.PN ---
Subjective Progress Note Date: 04/15/19 this is 74 showed female admitted with acute hypoxic respiratory failure, ventricular tachycardia,atrial fibrillation with RVR, CHF, status post mechanical ventilation, anasarca and multiple other medical issues.vital signs stable, maintaining O2 sats in the 90s on2 L nasal cannula.no further arrhythmias reported. Afebrile,WBC 25.2,urine culture negative, blood cultures negative,maintained on empiric antibiotics of Levaquin.chest x-rayconsistent with fluid overload, reporting bilateral pleural effusions with cardiomegaly and bibasilar infiltrate, diffuse interstitial pattern.maintained on Lasix drip, diuresing well with 24-hour I&O reflecting a negative fluid balance. Creatinine 1.5. Currently requiring 7 mics of Levophed. PICC line placed. Maintained on heparin drip. Telemetry sinus rhythm, on beta tish and oral amiodarone. Speech therapy evaluation pending. Objective - Vital Signs Vital signs: Vital Signs Temp 98.0 F 04/15/19 04:00 Pulse 82 04/15/19 16:00 Resp 32 H 04/15/19 16:00 BP 144/59 04/15/19 16:00 Pulse Ox 98 04/15/19 16:00 Intake & Output 04/14/19 04/15/19 04/15/19 18:59 06:59 18:59 Intake Total 313 360.000 249.008 Output Total 397 353 0736 Balance -52 -375.000 -1350.992 Weight 177 kg Intake: IV 313 180 115 0.9 NS 280 180 15 Levofloxacin 500Mg-D5w 100 Pmx 500 mg In Dextrose/ Water 1 100ml.bag @ 100 mls/hr IVPB Q48H [facility] Rx#: [id number] Normal Saline Pressure 33 Bag Intake, IV Titration 180.000 134.008 Amount Furosemide 100 mg In 180.000 95.167 Sodium Chloride 0.9% 90 ml @ 10 MG/HR 10 mls/hr IV .Q10H [facility] Rx#: [id number] Norepinephrine 32 mg In 0 38.841 Sodium Chloride 0.9% 218 ml @ 0.05 MCG/KG/MIN 3. 732 mls/hr IV .Q24H [facility] Rx#:[id number] Output: Urine 483 018 2916 Other: Voiding Method Indwelling Catheter Indwelling Catheter Indwelling Catheter ABP, PAP, CO, CI - Last Documented Arterial Blood Pressure 81/52 - Exam PHYSICAL EXAM: VITAL SIGNS: [as above] GENERAL: sitting up in bed, no acute distress, pleasantly confused HEENT: Conjunctivae normal. eyes normal. NECK: No JVD. No thyroid enlargement. No LNs CARDIOVASCULAR: S1, S2 regular.. No murmur RESPIRATION: Breath sounds diminished in the bases. No rhonchi or crackles. No bronchial breathing. ABDOMEN: Soft, nontender . No guarding. no masses palpable. No ascites, No hepatosplenomegaly.Bowel sounds heard. LEGS: No edema. no swelling.L groin HD catheter. PSYCHIATRY: Alert and oriented X1-2, mood and affect normal. NERVOUS SYSTEM: Cranial N 2-12 grossly normal. Moves all 4 limbs. Diffuse weakness No focal deficits. Strength and sensation grossly intact.. Skin:positive redness/rash of skin folds,groin - Labs CBC & Chem 7: 04/15/19 04:19 04/15/19 04:19 Labs: Abnormal Lab Results - Last 24 Hours (Table) 04/14/19 04/14/19 04/15/19 Range/Units 16:59 23:59 04:19 WBC (3.8-10.6) k/uL RBC (3.80-5.40) m/uL Hgb (11.4-16.0) gm/dL Hct (34.0-46.0) % RDW (11.5-15.5) % Neutrophils # (Manual) 17.30 H (1.3-7.7) k/uL Monocytes # (Manual) 1.12 H (0-1.0) k/uL Eosinophils # (Manual) (0-0.7) k/uL Metamyelocytes # (Man) 1.12 H (0) k/uL Myelocytes # (Manual) 0.89 H (0) k/uL Promyelocytes # (Man) (0) k/uL APTT (22.0-30.0) sec Sodium 132 L (137-145) mmol/L BUN 33 H (7-17) mg/dL Creatinine 1.55 H (0.52-1.04) mg/dL Glucose 175 H (74-99) mg/dL POC Glucose (mg/dL) 200 H (75-99) mg/dL 04/15/19 04/15/19 04/15/19 Range/Units 04:19 04:19 06:11 WBC 25.2 H (3.8-10.6) k/uL RBC 2.67 L (3.80-5.40) m/uL Hgb 8.9 L (11.4-16.0) gm/dL Hct 26.7 L (34.0-46.0) % RDW 16.1 H (11.5-15.5) % Neutrophils # (Manual) 15.10 H (1.3-7.7) k/uL Monocytes # (Manual) 3.28 H (0-1.0) k/uL Eosinophils # (Manual) 1.01 H (0-0.7) k/uL Metamyelocytes # (Man) 1.01 H (0) k/uL Myelocytes # (Manual) 2.02 H (0) k/uL Promyelocytes # (Man) 0.25 H (0) k/uL APTT 55.8 H (22.0-30.0) sec Sodium (137-145) mmol/L BUN (7-17) mg/dL Creatinine (0.52-1.04) mg/dL Glucose (74-99) mg/dL POC Glucose (mg/dL) 187 H (75-99) mg/dL 04/15/19 Range/Units 11:43 WBC (3.8-10.6) k/uL RBC (3.80-5.40) m/uL Hgb (11.4-16.0) gm/dL Hct (34.0-46.0) % RDW (11.5-15.5) % Neutrophils # (Manual) (1.3-7.7) k/uL Monocytes # (Manual) (0-1.0) k/uL Eosinophils # (Manual) (0-0.7) k/uL Metamyelocytes # (Man) (0) k/uL Myelocytes # (Manual) (0) k/uL Promyelocytes # (Man) (0) k/uL APTT (22.0-30.0) sec Sodium (137-145) mmol/L BUN (7-17) mg/dL Creatinine (0.52-1.04) mg/dL Glucose (74-99) mg/dL POC Glucose (mg/dL) 182 H (75-99) mg/dL Microbiology - Last 24 Hours (Table) 04/09/19 12:40 Blood Culture - Final Blood No Growth after 144 hours Assessment and Plan Assessment: Acute hypoxic respiratory failure secondary to ventricular tachycardia followed by atrial fibrillation with RVR , requiring mechanical ventilation. And shocking about 6 times. Status post mechanical ventilation Hypotension, pressor dependent Leukocytosis, afebrile, urine and blood cultures negative, on empiric antibiotics Acute metabolic encephalopathy, multifactorial, secondary to all the above Symptomatic bradycardia with hypotension secondary to hyperkalemia, Acute kidney injury secondary to acute tubular necrosis ,hypotension with bradycardia. Hyperkalemia secondary to acute kidney injury. Insulin dependent diabetes mellitus. History of coronary artery disease and previous stent placement Irritable bowel syndrome Chronic urinary incontinence History of cervical cancer and previous hysterectomy History of partial parathyroidectomy History of benign essential hypertension Chronic diastolic congestive heart failure Status post cardiac catheterization, reporting no significant obstructive CAD. Morbid obesity, BMI 73.7 Plan: Continue current medication regime ,monitoring and symptomatic treatment. Maintain empiric antibiotics Scheduled to have central line and hemodialysis catheter removed from groins. Weaning of Levophed in progress. Swallow evaluation pending. Prognosis guarded given multiple complex medical issues. The impression and plan of care has been dictated as directed. : I performed a history and examination of this patient, discussed the same with the dictator. I agree with the dictator's note ,documented as a scribe. Any additional findings or plans will be noted.
[2019-04-15 17:58] LABS: Glucose,Whole Blood 196 mg/dL (75-99)
[2019-04-15] MEDS: ARIPiprazole 5 MG TAB PO SCH (21:56)
[2019-04-15] MEDS: ATORVASTATIN 40 MG TAB PO SCH (21:57)
[2019-04-15] MEDS: CHOLECALCIFEROL 1,000 UNIT TAB PO SCH (21:57)
[2019-04-15 22:02] LABS: Glucose,Whole Blood 192 mg/dL (75-99)
[2019-04-15] MEDS: INSULIN DETEMIR (LEVEMIR) 100 UNIT/ML SYR SQ SCH (22:02)
[2019-04-15 23:55] LABS: Glucose,Whole Blood 233 mg/dL (75-99)
[2019-04-16] MEDS: INSULIN ASPART (NovoLOG) 100 UNIT/ML VIAL SQ SCH ×5 (00:04→23:38)
[2019-04-16] MEDS: FUROSEMIDE 100 MG in SODIUM CHLORIDE 0.9% 90 ML IV SCH ×3 (00:40→19:30)
[2019-04-16] MEDS: HEPARIN SOD,PORK IN 0.45% NACL 25,000 UNIT in 0.45% NACL 1 250ML.BAG IV SCH ×2 (00:41→21:02)
[2019-04-16 05:46] LABS: HCT 26.4 % (34.0-46.0); HGB 8.2 gm/dL (11.4-16.0); Hypochromasia Slight; MCH 32.2 pg (25.0-35.0); MCHC 31.2 g/dL (31.0-37.0); MCV 103.4 fL (80.0-100.0); Macrocytosis Moderate; Mean Platelet Volume 7.2; Platelet Count 188 k/uL (150-450); RBC 2.56 m/uL (3.80-5.40); RDW 15.9 % (11.5-15.5)
[2019-04-16 05:58] LABS: Glucose,Whole Blood 185 mg/dL (75-99)
[2019-04-16 06:02] LABS: Calcium 8.7 mg/dL (8.4-10.2); Potassium 4.1 mmol/L (3.5-5.1)
[2019-04-16 06:07] LABS: Vancomycin,Random 11.3 ug/mL
[2019-04-16] MEDS: GABAPENTIN 100 MG CAP PO SCH ×2 (06:10→20:59)
[2019-04-16 06:41] LABS: Band Neutrophils % 21 %; Basophils # (M) 0.18 k/uL (0-0.2); Eosinophils # (M) 0.18 k/uL (0-0.7); Lymphocytes # (M) 1.59 k/uL (1.0-4.8); Metamyelocytes # (M) 1.95 k/uL (0); Metamyelocytes % 11 %; Monocytes # (M) 0.53 k/uL (0-1.0); Myelocytes # (M) 0.71 k/uL (0); Myelocytes % 4 %; Neutrophils % (M) 54 %; Nucleated Red Blood Cells 1 /100 WBC (0-0); Total Cells Counted 200; WBC 17.7 k/uL (3.8-10.6)
[2019-04-16 06:42] LABS: Anisocytosis (M) Present; Polychromasia Present
[2019-04-16 06:43] LABS: Poikilocytosis (M) Present
[2019-04-16 06:44] LABS: Toxic Granulation Present
[2019-04-16] MEDS: MIDODRINE 5 MG TAB PO SCH ×3 (07:08→14:50)
[2019-04-16] MEDS: BUDESONIDE 1 MG/2 ML NEBU INHALATION SCH ×2 (08:11→21:24)
--- NOTE | 2019-04-16 08:37 | XR ---
EXAMINATION TYPE: XR chest 1V portable DATE OF EXAM: 04/16/2019 COMPARISON: Prior chest x-ray 04/15/2019 HISTORY: Extubated, abnormal chest TECHNIQUE: Single frontal view of the chest is obtained. FINDINGS: Right subclavian central venous catheter shows the tip overlying appropriate position of t he cavoatrial junction. Patient is rotated. No evident pneumothorax. Bibasilar increased density pers ists, heart remains enlarged. Aorta is dense and likely ectatic. Central vascularity is prominent. IMPRESSION: There may be basilar effusions, atelectasis, pneumonia or edema. Cardiomegaly. Possible underlying pulmonary artery hypertension. Findings similar to prior exam.
--- NOTE | 2019-04-16 08:46 | P.PN ---
Subjective Progress Note Date: 04/16/19 Principal diagnosis: Symptomatic bradycardia, hypotension and hyperkalemia This is a 74-year-old female with known history of multiple medical problems including diastolic congestive heart failure, hypertension, diabetes, coronary artery disease and previous stent placement, chronic low back pain, urinary incontinence, irritable bowel syndrome, cervical cancer and previous hyst erectomy, patient was sent to the ER last night from the [facility] on the [place] with complaints of shortness of breath. Patient has been complaining of shortness of breath for the last 2-3 days. She was also complaining of right mid abdominal and right flank pain. She had no chest pain, no nausea no vomiting, no fever no chills no hemoptysis. Patient was feeling extremely tired and exhausted. Upon evaluation in the ER, patient was noted to be profoundly bradycardic, heart rate ranging between 40 and 60. Blood pressure on arrival was 76/61. Patient had a right femoral triple-lumen catheter placed by the ER physician, and she had fluid boluses at least 2 L were given in the form of 0.9 normal saline. Patient was placed on dopamine for her profound bradycardia, and she is presently on dopamine at 5 mcg/kg/m. Remained hypotensive, hence norepinephrine at 0.04 mcg/kg/m was added. Maintained on IV fluid at 100 mL/h, admitted to the ICU, and this consult was initiated. I evaluated the patient in the ICU, kept her on dopamine and norepinephrine, and she was seen by nephrology on consultation last night, patient underwent stat hemodialysis mostly because of her hyperkalemia and acute kidney injury. Reevaluated today on 04/11/2019, patient remains on norepinephrine at 0.04 mcg/kg/m, blood pressure remains marginal, hence a left radial arterial line was placed. Patient is off dopamine, she is in sinus rhythm, and no further episodes of bradycardia. She is alert oriented 3, according to the nurse she had intermittent episodes of confusion, but her mental status seems to be intact this morning. Chest x-ray showed cardiomegaly and interstitial edema with bibasilar atelectasis. Electrolytes are much improved potassium is down to 5.2 BUN is 51 creatinine 2.31, no plans for dialysis today. WBC count is 16.3 hemoglobin is 9.7. Patient denies any shortness of breath, she feels generally weak. Patient was reevaluated today on 04/12/2019. Patient developed sustained ventri cular tachycardia earlier this morning, patient was shocked about 6 times, she was given lidocaine and amiodarone as per cardiology at bedside, patient was intubated, and she was taken down for a cardiac catheterization by cardiology. I reviewed the ventilator settings, and I recommended tidal volume of 500, assist control rate of 20, FiO2 of 100% and PEEP of 5. ABG is pending. Cardiac catheterization report is pending but I was informed that she had no significant coronary artery disease to speak of. Chest x-ray showed bibasilar atelectasis, possibly infiltrates, patient may have developed some component of aspiration pneumonia. Labs today showed leukocytosis with WBC count of 22.9 hemoglobin 8.3, electrolytes are normal, BUN is 43 creatinine 2.0. Cardiology October he was concerned about the possibility of non-ST segment elevation myocardial infarction. Later on patient was noted to have atrial fibrillation with poorly controlled ventricular rate. And again her cardiac catheterization official report is pending Reevaluated today on 04/13/2019, patient remains intubated, on mechanical ventilation, her ventilator settings are assist control rate of 20 and I cut it down to 16 FiO2 is 40%, and I cut it down to 35%. Tidal volume is 500 remains the same and PEEP is at 5. Patient is requiring propofol at 50 mcg/kg/m, she is on norepinephrine at 0.05 mcg/kg/m. Amiodarone drip, Cardizem drip at 5 mg per hour. She is also on heparin. Her cardiac catheterization yesterday was basically unremarkable. Hence the geospatial analyst seems to be concerned about pulmonary embolism, clinically that is unlikely based on the clinical history, not to mention the patient has been on anticoagulation therapy all along since admission. At this point patient is not to get the CT of the chest, since the index of suspicion for pulmonary embolism is low and since her renal functioning is marginal. Would rather continue anticoagulation therapy and did not do a CT of the chest at this point. ABG today showed a pO2 of 133 pCO2 of 27 pH of 7.52 again her FiO2 was decreased down to 35%. Patient is sedated on propofol, and I plan to give the patient a sedation holiday, and hopefully assess mental status, no plans to wean and extubate at this point. Still concerned about her issue of an arrhythmia and recurrent episodes of ventricular tachycardia. Chest x-ray showed no significant interval change from before, there is vascular congestion and mild pulmonary edema with bibasilar atelectasis, doubt pneumonia Patient was reevaluated today on 04/24/2019 remains intubated, mechanically ventilated, but the settings are tidal volume of 500 assist control rate of 16 FiO2 of 35% and PEEP of 5. No ABG was done this morning, apparently her arterial line is nonfunctional. However the patient seems to be very comfortable, and she was given a weaning trial while I was at bedside. She had a relatively good weaning parameters, she had good tidal volume on pressure support of 8 and CPAP, her volume was around 450, her rate was in the high teens, and the patient was noted to be in no distress. 45 minutes on pressure support and CPAP were done, and I extubated the patient uneventfully. Chest x- ray continues to show some fluid overload, atelectasis at the bases, patient continues to be swollen and edematous, and now she is placed on Lasix drip as per nephrology. WBC count today is 25 hemoglobin is 9.3 remains on heparin with a PTT of 48.5. Electrolytes are normal, BUN is 30 creatinine is 1.42. No arrhythmias noted over the last 24 hours. And the patient is on minimal dose of norepinephrine at 0.03 mcg/kg/m. This would likely be discontinued postextubation On 04/15/2011 patient seen in follow-up in the intensive care unit, she is awake, remains very confused, at times she is calling out for help, appears to be in any acute distress, no signs of any respiratory distress, she is on 2 L of oxygen with pulse ox of 98%, she is afebrile, she remains on small amount of leukocyte at 8 mics per minute, maintenance IV fluids are 0.9 normal saline at a rate of 20 ML per hour, Lasix drip is at 10 mg per hour, and heparin per weight- based protocol. Remains in sinus rhythm on the monitor with a controlled rate, patient is receiving a combination of oral amiodarone, Lopressor, for recent history of ventricular tachycardia. No complaints of chest pain. She is rece iving midodrine for hypotension which we can increase to 10 mg 3 times daily. She remains on empiric antibiotics with Levaquin and vancomycin. There is no cough, no sputum production, blood and urine cultures have shown no growth so far. Today's labs have been reviewed, white blood cell count is trending up, 25.2 and today's labs, hemoglobin is 8.9, sodium is 132, demonstrates electrolytes were within normal limits, renal profile is relatively stable with BUN of 33 and creatinine of 1.5. Today's chest x-ray has been reviewed showing bilateral pleural effusions, cardiomegaly and bibasilar infiltrates, diffuse interstitial pattern. No fever or chills. Remains on Lasix infusion, the patie nt is only modestly in negative fluid balance, still has significant amount of fluid in his abdominal wall, and generalized anasarca. She still has a hemodialysis catheter in her left groin and his central line venous catheter in the right groin, patient has skin breakdown in the groin folds. Patient has not been able to pass a swallow evaluation, in her oral medications have been on hold and patient remains nothing by mouth until seen by speech therapy. On April 16 2019, patient is seen in follow-up in the intensive care unit, more awake and conversant on today's exam, answering simple questions, oriented to person and place, but is intermittently confused. Denies any acute distress, still mildly dyspneic with conversation, oxygenation is stable on 2 L of oxygen her pulse ox is 97%, patient has been afebrile. Hemodynamically patient has improved, and she was able to be weaned off the levo fed since yesterday. She remains on Lasix drip at 10 mg per hour, and heparin per weight-based protocol. Patient is diuresing, and she is in negative for thousand 586 mL fluid balance over the last 24 hours, Lyme status is improving, and patient is -6 kg in the last 24 hours. Today's labs have been reviewed, showing white blood cell count of 17.7, crit cytosis is improving, hemoglobin is 8.2, serum sodium is 136, the rest of electrolytes were within normal limits, renal profile is improving, with BUN 30 and creatinine is 1.3. Blood and urine culture remained negative, lung sounds are positive for end expiratory wheezing, today's chest x-ray was reviewed showing improved aeration at the right base, and improvement in the appearance of interstitial edema. Patient's hemodialysis catheter from the left groin and central line from the right coronary were removed yesterday, and patient had a PICC line inserted in the right upper extremity. Objective - Vital Signs Vital signs: Vital Signs Temp 98.2 F 04/16/19 04:00 Pulse 86 04/16/19 08:11 Resp 25 H 04/16/19 07:00 BP 99/46 04/16/19 07:00 Pulse Ox 97 04/16/19 07:00 Intake & Output 04/15/19 04/16/19 04/16/19 18:59 06:59 18:59 Intake Total 252.292 396.5 25 Output Total 2100 3135 175 Balance -1847.708 -2738.5 -150 Weight 171 kg Intake: IV 115 305 25 0.9 NS 15 165 15 Furosemide 100 mg In 110 10 Sodium Chloride 0.9% 90 ml @ 10 MG/HR 10 mls/hr IV .Q10H [facility] Rx#: [id number] Levofloxacin 500Mg-D5w 100 Pmx 500 mg In Dextrose/ Water 1 100ml.bag @ 100 mls/hr IVPB Q48H [facility] Rx#: [id number] Normal Saline Pressure 30 Bag Intake, IV Titration 137.292 91.5 Amount Furosemide 100 mg In 95.167 91.5 Sodium Chloride 0.9% 90 ml @ 10 MG/HR 10 mls/hr IV .Q10H [facility] Rx#: [id number] Norepinephrine 32 mg In 42.125 Sodium Chloride 0.9% 218 ml @ 0.05 MCG/KG/MIN 3. 732 mls/hr IV .Q24H [facility] Rx#:[id number] Output: Urine 2100 3135 175 Other: Voiding Method Indwelling Catheter Indwelling Catheter ABP, PAP, CO, CI - Last Documented Arterial Blood Pressure 81/52 - Exam GENERAL EXAM: Alert, confused, 74-year-old obese white female, 2 L of oxygen with pulse ox of 97%, answers simple questions, more awake and conversant on today's exam, mildly dyspneic with conversation comfortable in no apparent distress. HEAD: Normocephalic/atraumatic. EYES: Normal reaction of pupils, equal size. Conjunctiva pink, sclera white. NOSE: Clear with pink turbinates. THROAT: No erythema or exudates. NECK: No masses, no JVD, no thyroid enlargement, no adenopathy. CHEST: No chest wall deformity. Symmetrical expansion. LUNGS: Diminished air entry with end expiratory wheezes CVS: Regular rate and rhythm, normal S1 and S2, no gallops, no murmurs, no rubs ABDOMEN: Soft, obese, with a significant amount of abdominal wall edema. No hepatosplenomegaly, normal bowel sounds, no guarding or rigidity. EXTREMITIES: No clubbing, no cyanosis, 2+ pulses and upper and lower extremities. Significant amount of upper and lower extremity edema anasarca, and edema of abdominal wall MUSCULOSKELETAL: Muscle strength and tone normal. SPINE: No scoliosis or deformity SKIN: Groin folds positive for redness, moisture and rash patient has hemodialysis catheter in the left groin in right groin central catheter CENTRAL NERVOUS SYSTEM: Alert and oriented -2, intermittently confused No focal deficits, tone is normal in all 4 extremities. - Labs CBC & Chem 7: 04/16/19 04:15 04/16/19 04:15 Labs: Abnormal Lab Results - Last 24 Hours (Table) 04/15/19 04/15/19 04/15/19 Range/Units 11:43 17:56 22:00 WBC (3.8-10.6) k/uL RBC (3.80-5.40) m/uL Hgb (11.4-16.0) gm/dL Hct (34.0-46.0) % MCV (80.0-100.0) fL RDW (11.5-15.5) % Neutrophils # (Manual) (1.3-7.7) k/uL Metamyelocytes # (Man) (0) k/uL Myelocytes # (Manual) (0) k/uL Nucleated RBCs (0-0) /100 WBC APTT (22.0-30.0) sec Sodium (137-145) mmol/L BUN (7-17) mg/dL Creatinine (0.52-1.04) mg/dL Glucose (74-99) mg/dL POC Glucose (mg/dL) 182 H 196 H 192 H (75-99) mg/dL 04/15/19 04/16/19 04/16/19 Range/Units 23:53 04:15 04:15 WBC (3.8-10.6) k/uL RBC (3.80-5.40) m/uL Hgb (11.4-16.0) gm/dL Hct (34.0-46.0) % MCV (80.0-100.0) fL RDW (11.5-15.5) % Neutrophils # (Manual) (1.3-7.7) k/uL Metamyelocytes # (Man) (0) k/uL Myelocytes # (Manual) (0) k/uL Nucleated RBCs (0-0) /100 WBC APTT 60.0 H (22.0-30.0) sec Sodium 136 L (137-145) mmol/L BUN 30 H (7-17) mg/dL Creatinine 1.30 H (0.52-1.04) mg/dL Glucose 168 H (74-99) mg/dL POC Glucose (mg/dL) 233 H (75-99) mg/dL 04/16/19 04/16/19 Range/Units 04:15 05:57 WBC 17.7 H (3.8-10.6) k/uL RBC 2.56 L (3.80-5.40) m/uL Hgb 8.2 L (11.4-16.0) gm/dL Hct 26.4 L (34.0-46.0) % MCV 103.4 H (80.0-100.0) fL RDW 15.9 H (11.5-15.5) % Neutrophils # (Manual) 13.20 H (1.3-7.7) k/uL Metamyelocytes # (Man) 1.95 H (0) k/uL Myelocytes # (Manual) 0.71 H (0) k/uL Nucleated RBCs 1 H (0-0) /100 WBC APTT (22.0-30.0) sec Sodium (137-145) mmol/L BUN (7-17) mg/dL Creatinine (0.52-1.04) mg/dL Glucose (74-99) mg/dL POC Glucose (mg/dL) 185 H (75-99) mg/dL Microbiology - Last 24 Hours (Table) 04/09/19 12:40 Blood Culture - Final Blood No Growth after 144 hours Assessment and Plan Plan: Assessment: #1. Acute hypoxic respiratory failure secondary to ventricular tachycardia, A. fib with RVR, congestive heart failure, requiring intubation and mechanical ventilation. Patient was intubated on 04/12/2019 and successfully weaned and extubated on 04/14/2019. Patient is status post synchronized cardioversion 6 with successful conversion to sinus rhythm, cardiac catheterization did not show significant obstructive coronary artery disease #2. Acute exacerbation of congestive heart failure with preserved ventricular systolic function and EF of 50-55% #3. Symptomatic bradycardia with hypotension related to hyperkalemia on presentation, resolved #4. Acute kidney injury secondary to acute tubular necrosis and hypotension and bradycardia, improving #5. Leukocytosis, patient is empirically covered with Rocephin and vancomycin has had no fever. Urine and blood cultures have shown no growth #6. Hyperkalemia secondary to a TIA resolved #7. Insulin dependent diabetes mellitus #8. History of coronary artery disease and previous stent placement #9. Irritable bowel syndrome #10. Chronic urinary incontinence #11. History of cervical cancer previous hysterectomy #12. History of partial parathyroidectomy #13. History of benign essential hypertension #14. Chronic diastolic CHF #15. Status post cardiac catheterization no significant coronary artery disease #16. Metabolic encephalopathy Plan: Patient is maintaining negative fluid balance, fluid volume status is improving, today's chest x-ray has been reviewed showing improved aeration bilaterally, hemodynamically patient stable, no vasoactive drips, continue with Lasix infu shannan. Continue same antibiotics, patient has been afebrile, leukocytosis is improving. Cultures remain negative thus far. We'll repeat the swallow evaluation today, patient does not pass swallow evaluation again we may have to insert a Dobbhoff or NG tube for medications and nutritional support. Continue GI and DVT prophylaxis, patient will be monitored in the intensive care unit, will follow repeat chest x-ray in the morning, repeat labs. I performed a history & physical examination of the patient and discussed their management with my nurse practitioner, Norma Avila. I reviewed the nurse practitioner's note and agree with the documented findings and plan of care. Lung sounds are positive for diminished breath sounds. The findings and the impression was discussed with the patient. I attest to the documentation by the nurse practitioner. Time with Patient: Less than 30
[2019-04-16] MEDS ORDERED: VANCOMYCIN 2,250 MG in SODIUM CHLORIDE 0.9% 500 ML 500 ML IVPB ONE (09:00)
[2019-04-16] MEDS: ASPIRIN 81 MG PO SCH (10:55)
[2019-04-16] MEDS: CITALOPRAM HYDROBROMIDE 20 MG TAB PO SCH (10:55)
[2019-04-16] MEDS: CITALOPRAM HYDROBROMIDE 10 MG TAB PO SCH (10:55)
[2019-04-16] MEDS: FERROUS SULFATE 325 MG TAB PO SCH (10:55)
[2019-04-16] MEDS: AMIODARONE 200 MG TAB PO SCH ×2 (10:55→20:58)
[2019-04-16] MEDS: METOPROLOL TARTRATE 25 MG TAB PO SCH ×2 (10:55→20:59)
[2019-04-16] MEDS: CLOPIDOGREL 75 MG TAB PO SCH (10:55)
[2019-04-16] MEDS: PANTOPRAZOLE 40 MG TABLET PO SCH (10:56)
--- NOTE | 2019-04-16 11:29 | PN ---
PROGRESS NOTE Carla is a 74-year-old lady who was admitted to the hospital with symptomatic bradycardia secondary to hyperkalemia, subsequently developed ventricular tachycardia and had to be resuscitated. Underwent a cardiac catheterization that did not reveal new obstructive CAD, was intubated and extubated. Currently she appears somewhat confused but she is better today than she was yesterday. Her urine output is good and she is in significant negative fluid balance. She is on Lasix drip as per Nephrology and will be continued. The patient is on aspirin, Lipitor, Plavix, and metoprolol. PHYSICAL EXAMINATION: On exam, the patient's heart rate is 86 beats per minute, blood pressure is 99/46, respiratory rate is 25. Chest exam reveals diminished air entry at the bases. Heart exam reveals first and second heart sounds. Regular rhythm. No murmur. Examination of the extremities reveals bilateral severe pitting edema. LABS: Hemoglobin of 8.2. BUN is 30, creatinine is 1.3, potassium is 4.1. An echocardiogram on this admission revealed an ejection fraction of 50% to 55%. ASSESSMENT: 1. Respiratory failure. 2. Acute on chronic renal failure. 3. Symptomatic bradycardia. 4. Paroxysmal atrial fibrillation. PLAN: The patient will continue on IV heparin. Whenever she is able to take oral meds, we will switch her to Eliquis. We will give her aspirin and Plavix as she is able to take them. MMODL / IJN: [id number] /
[2019-04-16 12:07] LABS: Glucose,Whole Blood 125 mg/dL (75-99)
--- NOTE | 2019-04-16 12:20 | PN ---
PROGRESS NOTE Patient is seen for followup for acute kidney injury and hyperkalemia along with severe volume overload. The patient is maintained on Lasix drip. She has had good urine output. A 24-hour urine output at about 5.2 L. Renal function continues to improve. The patient has not had any further dialysis. Her dialysis catheter was removed yesterday. Mentation is also slightly better although patient is not able to eat yet. PHYSICAL EXAMINATION: On examination, blood pressure this morning was 107/25, heart rate 85 per minute. She is afebrile. EXAMINATION OF THE HEART: S1, S2. EXAMINATION OF THE LUNGS: Decreased breath sounds at bases. Abdomen is soft, nontender, morbidly obese. Examination of lower extremities shows edema 3+ bilaterally with weeping noted. LICENSED PSYCHOLOGIST DIRECTOR exam shows patient moving all 4 extremities. Mentation is much better today. LABS: Labs shows hemoglobin 8.2, sodium 136, potassium 4.1, chloride 100, BUN 30, creatinine 1.3. ASSESSMENT: 1. Acute kidney injury, acute tubular necrosis, currently nonoliguric and improving, status post few treatments of hemodialysis, currently off of dialysis. 2. Hyperkalemia associated with acute kidney injury, now resolved. 3. Severe volume overload, slowly improving. Continue with the Lasix drip for now. 4. Hypoxic respiratory failure, now extubated. 5. Symptomatic bradycardia and ventricular tachycardia. 6. Paroxysmal atrial fibrillation, maintained on IV heparin. PLAN: Continue with the Lasix drip for now and repeat labs in a.m. MMODL / IJN: [id number] /
[2019-04-16] MEDS: NOREPINEPHRINE 32 MG in SODIUM CHLORIDE 0.9% 218 ML IV SCH (14:50)
--- NOTE | 2019-04-16 15:18 | P.PN ---
Subjective Progress Note Date: 04/16/19 this is 74 showed female admitted with acute hypoxic respiratory failure, ventricular tachycardia,atrial fibrillation with RVR, CHF, status post mechanical ventilation, anasarca and multiple other medical issues.vital signs stable, maintaining O2 sats in the 90s on2 L nasal cannula.no further arrhythmias reported. Afebrile,WBC 25.2,urine culture negative, blood cultures negative,maintained on empiric antibiotics of Levaquin.chest x-rayconsistent with fluid overload, reporting bilateral pleural effusions with cardiomegaly and bibasilar infiltrate, diffuse interstitial pattern.maintained on Lasix drip, diuresing well with 24-hour I&O reflecting a negative fluid balance. Creatinine 1.5. Currently requiring 7 mics of Levophed. PICC line placed. Maintained on heparin drip. Telemetry sinus rhythm, on beta tish and oral amiodarone. Speech therapy evaluation pending. 04/16/2019 maintained on Lasix and heparin drips.diuresing well with 24-hour I&O reflecting a negative fluid balance. Positive bowel movement today.Sensorium slowly improving -More alert today, answering simple questions, conversing. Reports generalized diffuse discomfort from bed. Levophed weaned off yesterday. Continues on Levaquin, Afebrile, leukocytosis improving. Dialysis catheter removed yesterday. Renal function improving, creatinine 1.3. Currently NPO with significant generalized weakness Sodium improving, 136. Chest x-ray stable reporting similar findings to prior of bibasilar effusions, atelectasis, pneumonia/edema with possible underlying pulmonary artery hypertension. Objective - Vital Signs Vital signs: Vital Signs Temp 97.6 F 04/16/19 12:00 Pulse 84 04/16/19 14:30 Resp 24 04/16/19 14:30 BP 89/50 04/16/19 14:30 Pulse Ox 97 04/16/19 14:30 Intake & Output 04/15/19 04/16/19 04/16/19 18:59 06:59 18:59 Intake Total 252.292 396.5 653.167 Output Total 2100 3135 1310 Balance -1847.708 -2738.5 -656.833 Weight 171 kg 171 kg Intake: IV 115 305 566 0.9 NS 15 165 55 Furosemide 100 mg In 110 10 Sodium Chloride 0.9% 90 ml @ 10 MG/HR 10 mls/hr IV .Q10H [facility] Rx#: [id number] Levofloxacin 500Mg-D5w 100 Pmx 500 mg In Dextrose/ Water 1 100ml.bag @ 100 mls/hr IVPB Q48H [facility] Rx#: [id number] Normal Saline Pressure 30 Bag Vancomycin 2,250 mg In 501 Sodium Chloride 0.9% 500 ml 500 ml @ 167 mls/hr IVPB ONCE ONE Rx#: [id number] Intake, IV Titration 137.292 91.5 87.167 Amount Furosemide 100 mg In 95.167 91.5 87.167 Sodium Chloride 0.9% 90 ml @ 10 MG/HR 10 mls/hr IV .Q10H [facility] Rx#: [id number] Norepinephrine 32 mg In 42.125 Sodium Chloride 0.9% 218 ml @ 0.05 MCG/KG/MIN 3. 732 mls/hr IV .Q24H [facility] Rx#:[id number] Output: Urine 2100 3135 1310 Other: Voiding Method Indwelling Catheter Indwelling Catheter Indwelling Catheter # Bowel Movements 1 ABP, PAP, CO, CI - Last Documented Arterial Blood Pressure 81/52 - Exam PHYSICAL EXAM: VITAL SIGNS: [as above] GENERAL: sitting up in bed, no acute distress, fluctuating mild confusion. HEENT: Conjunctivae normal. eyes normal. NECK: No JVD. No thyroid enlargement. No LNs CARDIOVASCULAR: S1, S2 regular.. No murmur RESPIRATION: Breath sounds diminished in the bases. No rhonchi or crackles. End expiratory wheezing. ABDOMEN: Soft, nontender . No guarding. no masses palpable. No ascites, No hepatosplenomegaly.Bowel sounds heard. LEGS: No edema. no swelling. PSYCHIATRY: Alert and oriented X2, mood and affect normal. NERVOUS SYSTEM: Cranial N 2-12 grossly normal. Moves all 4 limbs. Diffuse weakness No focal deficits. Strength and sensation grossly intact.. Skin:positive redness/rash of skin folds,groin -weeping from prior hemodialysis catheter site and central line site. Microbiology 04/09/19 12:40 Blood Blood Culture - Final No Growth after 144 hours 04/09/19 15:15 Urine,Voided Urine Culture - Final - Labs CBC & Chem 7: 04/16/19 04:15 04/16/19 04:15 Labs: Abnormal Lab Results - Last 24 Hours (Table) 04/15/19 04/15/19 04/15/19 Range/Units 17:56 22:00 23:53 WBC (3.8-10.6) k/uL RBC (3.80-5.40) m/uL Hgb (11.4-16.0) gm/dL Hct (34.0-46.0) % MCV (80.0-100.0) fL RDW (11.5-15.5) % Neutrophils # (Manual) (1.3-7.7) k/uL Metamyelocytes # (Man) (0) k/uL Myelocytes # (Manual) (0) k/uL Nucleated RBCs (0-0) /100 WBC APTT (22.0-30.0) sec Sodium (137-145) mmol/L BUN (7-17) mg/dL Creatinine (0.52-1.04) mg/dL Glucose (74-99) mg/dL POC Glucose (mg/dL) 196 H 192 H 233 H (75-99) mg/dL 04/16/19 04/16/19 04/16/19 Range/Units 04:15 04:15 04:15 WBC 17.7 H (3.8-10.6) k/uL RBC 2.56 L (3.80-5.40) m/uL Hgb 8.2 L (11.4-16.0) gm/dL Hct 26.4 L (34.0-46.0) % MCV 103.4 H (80.0-100.0) fL RDW 15.9 H (11.5-15.5) % Neutrophils # (Manual) 13.20 H (1.3-7.7) k/uL Metamyelocytes # (Man) 1.95 H (0) k/uL Myelocytes # (Manual) 0.71 H (0) k/uL Nucleated RBCs 1 H (0-0) /100 WBC APTT 60.0 H (22.0-30.0) sec Sodium 136 L (137-145) mmol/L BUN 30 H (7-17) mg/dL Creatinine 1.30 H (0.52-1.04) mg/dL Glucose 168 H (74-99) mg/dL POC Glucose (mg/dL) (75-99) mg/dL 04/16/19 04/16/19 Range/Units 05:57 12:05 WBC (3.8-10.6) k/uL RBC (3.80-5.40) m/uL Hgb (11.4-16.0) gm/dL Hct (34.0-46.0) % MCV (80.0-100.0) fL RDW (11.5-15.5) % Neutrophils # (Manual) (1.3-7.7) k/uL Metamyelocytes # (Man) (0) k/uL Myelocytes # (Manual) (0) k/uL Nucleated RBCs (0-0) /100 WBC APTT (22.0-30.0) sec Sodium (137-145) mmol/L BUN (7-17) mg/dL Creatinine (0.52-1.04) mg/dL Glucose (74-99) mg/dL POC Glucose (mg/dL) 185 H 125 H (75-99) mg/dL Microbiology - Last 24 Hours (Table) 04/09/19 12:40 Blood Culture - Final Blood No Growth after 144 hours Assessment and Plan Assessment: Acute hypoxic respiratory failure secondary to ventricular tachycardia followed by atrial fibrillation with RVR , requiring mechanical ventilation. And shocking about 6 times. Status post mechanical ventilation Hypotension, pressor dependent Leukocytosis, afebrile, urine and blood cultures negative, on empiric antibiotics Acute metabolic encephalopathy, multifactorial, secondary to all the above Symptomatic bradycardia with hypotension secondary to hyperkalemia, Acute kidney injury secondary to acute tubular necrosis ,hypotension with bradycardia. Hyperkalemia secondary to acute kidney injury. Insulin dependent diabetes mellitus. History of coronary artery disease and previous stent placement Irritable bowel syndrome Chronic urinary incontinence History of cervical cancer and previous hysterectomy History of partial parathyroidectomy History of benign essential hypertension Chronic diastolic congestive heart failure Status post cardiac catheterization, reporting no significant obstructive CAD. Morbid obesity, BMI 73.7 Plan: Continue current medication regime ,monitoring and symptomatic treatment. Continue Lasix drip. Close monitoring of renal function with repeat labs ordered for a.m. Maintain empiric antibiotics. Strict aspiration precautions. Swallow re-evaluation pending. Anticoagulation as per cardiology. Prognosis guarded given multiple complex medical issues. The impression and plan of care has been dictated as directed. : I performed a history and examination of this patient, discussed the same with the dictator. I agree with the dictator's note ,documented as a scribe. Any additional findings or plans will be noted.
--- NOTE | 2019-04-16 16:41 | IR ---
PICC LINE PLACEMENT: HISTORY: Infection requiring long-term antibiotic therapy PROCEDURE: Ultrasound and fluoroscopic guidance of PICC line placement. COMPLICATIONS: None ANESTHESIA: 1. 1% Lidocaine locally. FINDINGS/TECHNIQUE: The procedure was explained to the patient. The risks, complications, benefits and alternatives were discussed and any questions were answered. Informed consent was obtained. The patient was placed supine on the fluoroscopic table and prepped and draped in the usual sterile fash ion. Utilizing a 21 gauge needle and sonographic and fluoroscopic guidance, access in the right bra chial vein was achieved and there is placement of a 0.018 guidewire. The vein is patent. A 4-F cage th was placed over the guidewire. The guidewire and dilator were removed and a 4-F. PICC line was pl aced through the sheath with the tip at the level of the SVC. The sheath was removed, the catheter w as flushed and sutured into position. The patient was stable throughout the procedure and remained s table upon discharge from the Department of Radiology. The vein puncture was patent under ultrasound. A buck scale image was obtained to document patency of the vein punctured. All elements of the maximal barrier technique were utilized. FLUOROSCOPY TIME: 10 seconds and one image provided IMPRESSION: Successful PICC line placement under ultrasound and fluoroscopic guidance.
[2019-04-16 17:22] LABS: Glucose,Whole Blood 128 mg/dL (75-99)
[2019-04-16 20:54] LABS: Glucose,Whole Blood 115 mg/dL (75-99)
[2019-04-16] MEDS: ATORVASTATIN 40 MG TAB PO SCH (20:58)
[2019-04-16] MEDS: CHOLECALCIFEROL 1,000 UNIT TAB PO SCH (20:58)
[2019-04-16] MEDS: INSULIN DETEMIR (LEVEMIR) 100 UNIT/ML SYR SQ SCH (20:58)
[2019-04-16] MEDS: ARIPiprazole 5 MG TAB PO SCH (20:58)
--- NOTE | 2019-04-16 23:01 | P.CONS ---
History of Present Illness - Reason for Consult Consult date: 04/16/19 Leukocytosis Requesting physician: Chris Yi - Chief Complaint Weakness bradycardia and hypotension x 1 day - History of Present Illness Patient is a 74 year old female who was brought into the ER by EMS from a local half-way after the patient was noticed to have a heart rate in the 30s and a blood pressure in the 70s, the patient was given atropine fluid bolus and subsequently was brought to [facility] ER on 04/09/2019 patient on presentation hospital did have a mildly elevated white count of 13.1 that has gradually trending up and was almost 25,000 yesterday that prompted this infectious disease consultation patient has been afebrile throughout her hospital stay initial chest x-ray did show some atelectasis accident this morning is showing features of fluid overload the patient did have a UA that was mildly positive the urine culture has been negative blood culture has been negative as well patient is currently on empiric Levaquin and vancomycin therapy since admission the hospital, the patient also requiring pressor support the patient is currently lethargic today respond to her name and he did complain of some shortness of breath, cough or chest pain no nausea no vomiting no abdominal pain patient did have evidence of generalized anasarca and has been dialyzed during this admission with the [place] to the left groin and patient is being followed by nephrology Review of Systems Positive point has been mentioned in the HPI rest of the systems are negative Past Medical History Past Medical History: Asthma, Coronary Artery Disease (CAD), Cancer, Chest Pain / Angina, Heart Failure, CVA/TIA, Diabetes Mellitus, GERD/Reflux, Hyperlipidemia, Hypertension, Memory Impairment, Pneumonia, Sleep Apnea/CPAP/BIPAP, Thyroid Disorder Additional Past Medical History / Comment(s): IDDM, unable to tolerate C-PAP, hx. 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 , states unable to stand-needs yadira lift to transfer., patient states she has constipation with "pain in bowel" and nausea., resides at [facility] on the [facility]. History of Any Multi-Drug Resistant Organisms: ESBL, MRSA Year Discovered:: 06/05/18 ESBL/ MRSA 04/02/11 MDRO Source:: ESBL URINE / MRSA LEG, CHEST, ANKLE Past Surgical History: Bladder Surgery, Cholecystectomy, Heart Catheterization, Heart Catheterization With Stent, Hysterectomy Additional Past Surgical History / Comment(s): Angioplasty with multiple stents- pt states last stent mar 2018., partial parathyroidectomy, cataracts , I and D of L chest wall abscess and L ankle wound, bladder surgery with implant of stimulator system 02/2010, EGD/colonoscoy, Pain procedures. Past Anesthesia/Blood Transfusion Reactions: No Reported Reaction, Motion Sickness Additional Past Anesthesia/Blood Transfusion Reaction / Comm: Pt states she has received blood in the past without reaction. Date of Last Stent Placement:: 06/29/16 Past Psychological History: Anxiety, Depression Smoking Status: Never smoker Past Alcohol Use History: None Reported Past Drug Use History: None Reported - Past Family History Brother(s) Family Medical History: Coronary Artery Disease (CAD) Father Family Medical History: Cancer, Coronary Artery Disease (CAD) Additional Family Medical History / Comment(s): Father had prostate cancer. Mother Family Medical History: Asthma, COPD Medications and Allergies Home Medications Medication Instructions Recorded Confirmed Type Nitroglycerin Sl Tabs [Nitrostat] 0.4 mg SUBLINGUAL Q5M PRN #30 tab 12/23/16 04/09/19 Rx Atorvastatin [Lipitor] 40 mg PO HS@209901/30/17 04/09/19 History Aspirin EC [Ecotrin Low Dose] 81 mg PO DAILY@0900 12/14/17 04/09/19 History Acetaminophen [Tylenol] 650 mg PO Q6H PRN 01/16/18 04/09/19 History Albuterol Sulfate [Proair Hfa] 2 puff INHALATION RT-Q6H PRN 06/04/18 04/09/19 History Bisacodyl [Dulcolax] 10 mg RECTAL DAILY PRN supp 06/08/18 04/09/19 Rx Montelukast Sodium [Singulair] 10 mg PO HS@209907/02/18 04/09/19 History ARIPiprazole [Abilify] 5 mg PO HS@2100 09/04/18 04/09/19 History Bismuth Subsalicylate 524 mg PO Q4H PRN 09/04/18 04/09/19 History [Pepto-Bismol] Ferrous Sulfate [Iron (65 MG 325 mg PO DAILY@0900 09/04/18 04/09/19 History Elemental)] Insulin Lispro [humaLOG Kwikpen] See Protocol SQ ACHS 09/04/18 04/09/19 History Isosorbide Mononitrate ER [Imdur] 30 mg PO BID 09/04/18 04/09/19 History Lubiprostone [Amitiza] 24 mcg PO BID@0900,2100 09/04/18 04/09/19 History Pantoprazole [Protonix] 40 mg PO DAILY@0900 09/04/18 04/09/19 History Lisinopril [Zestril] 10 mg PO DAILY@0900 12/25/18 04/09/19 History Metoprolol Tartrate [Lopressor] 25 mg PO TID@0600,1400,2200 12/25/18 04/09/19 History Citalopram Hydrobromide [CeleXA] 10 mg PO DAILY@0900 01/10/19 04/09/19 History Citalopram Hydrobromide [CeleXA] 20 mg PO DAILY@0900 01/10/19 04/09/19 History Ipratropium-Albuterol Nebulize 3 ml INHALATION RT-Q4H PRN 01/10/19 04/09/19 History [Duoneb 0.5 mg-3 mg/3 ml Soln] Loperamide HCl [Imodium A-D] 4 mg PO QID PRN 01/10/19 04/09/19 History Magnesium Hydroxide [Milk of 2,400 mg PO DAILY PRN 01/10/19 04/09/19 History Magnesia] Cholecalciferol [Vitamin D3 (25 2,000 unit PO HS@2100 01/11/19 04/09/19 History Mcg = 1000 Iu)] Clopidogrel [Plavix] 75 mg PO DAILY@0900 01/11/19 04/09/19 History Furosemide [Lasix] 40 mg PO BID@0600,1400 01/11/19 04/09/19 History Ipratropium-Albuterol Nebulize 3 ml INHALATION RT-Q8H 01/11/19 04/09/19 History [Duoneb 0.5 mg-3 mg/3 ml Soln] Budesonide [Pulmicort] 1 mg INHALATION RT-BID@0900,2100 03/14/19 04/09/19 History Calcium Carbonate [Tums] 1,000 mg PO Q6H PRN 03/14/19 04/09/19 History Insulin Detemir [Levemir Flextouch] 50 units SQ HS@2100 03/14/19 04/09/19 History Gabapentin [Neurontin] 100 mg PO BID@0600,2200 #6 03/18/19 04/09/19 Rx clonazePAM [KlonoPIN] 1 mg PO TID@0600,1400,2200 #9 tab 03/18/19 04/09/19 Rx predniSONE 10 mg PO Q48H #0 03/18/19 04/09/19 Rx traMADol HCl [Ultram] 100 mg PO TID@0600,1400,2200 #18 03/18/19 04/09/19 Rx Diflorasone Diacetate [Psorcon] 1 applic TOPICAL DAILY PRN 04/09/19 04/09/19 History Diflorasone Diacetate [Psorcon] 1 applic TOPICAL HS 04/09/19 04/09/19 History INSULIN LISPRO (HumaLOG) [humaLOG] 5 unit SQ AC-TID 04/09/19 04/09/19 History Levofloxacin [Levaquin] 500 mg PO DAILY 04/09/19 04/09/19 History Na Phos,M-B/Na Phos,Di-Ba [Fleet 133 ml RECTAL DAILY PRN 04/09/19 04/09/19 History Adult] Allergies Allergy/AdvReac Type Severity Reaction Status Date / Time adhesive Allergy Mild Rash/Hives, Verified 04/09/19 13:23 W/ TAPES, CAN USE PAPER TAPE latex Allergy Mild Rash/Hives- Verified 04/09/19 13:23 Sores codeine Allergy Anaphylaxis Verified 04/09/19 13:23 Penicillins Allergy Anaphylaxis Verified 04/09/19 13:23 propoxyphene napsylate Allergy Anaphylaxis Verified 04/09/19 13:23 [From Darvocet-N 100] tuberculin, purified protein Allergy Rash/Hives Verified 04/09/19 13:23 deriva [tuberculin,purif.prot.deriv.] morphine AdvReac Hallucinations, Verified 04/09/19 13:23 anxious Physical Exam Vitals: Vital Signs Temp Pulse Resp BP Pulse Ox 04/16/19 15:00 84 22 107/38 97 04/16/19 14:30 84 24 89/50 97 04/16/19 14:00 87 24 90/55 93 L 04/16/19 13:30 85 22 101/48 97 04/16/19 13:00 83 22 104/46 97 04/16/19 12:30 85 20 102/47 96 04/16/19 12:00 97.6 F 85 21 97/35 98 04/16/19 11:30 85 19 100/27 96 04/16/19 11:00 84 20 100/40 97 04/16/19 10:30 85 22 107/25 98 04/16/19 10:00 90 22 100/49 97 04/16/19 09:30 90 21 104/65 97 04/16/19 09:00 87 24 105/34 98 04/16/19 08:30 88 23 103/53 98 04/16/19 08:11 86 04/16/19 08:00 97.7 F 91 21 100/36 97 04/16/19 07:30 87 24 95/44 95 04/16/19 07:00 87 25 H 99/46 97 04/16/19 06:30 93 25 H 101/41 96 04/16/19 06:00 86 24 103/52 98 04/16/19 05:30 87 23 95/41 98 04/16/19 05:00 85 23 109/45 99 04/16/19 04:30 89 24 105/43 98 04/16/19 04:00 98.2 F 90 23 108/41 98 04/16/19 03:30 92 24 100/36 98 04/16/19 03:00 92 26 H 108/54 97 04/16/19 02:30 94 24 116/53 99 04/16/19 02:00 93 25 H 109/61 97 04/16/19 01:30 92 26 H 97/43 98 04/16/19 01:00 86 24 109/52 99 04/16/19 00:30 89 21 99 04/16/19 00:00 98.4 F 85 18 111/56 98 04/15/19 23:30 89 32 H 109/54 97 04/15/19 23:09 90 23 97 04/15/19 23:00 85 20 104/47 97 04/15/19 22:30 88 20 99/49 98 04/15/19 22:00 86 24 123/45 94 L 04/15/19 21:30 83 22 113/65 97 04/15/19 21:15 84 04/15/19 21:10 99 04/15/19 21:09 86 04/15/19 21:00 84 21 124/53 99 04/15/19 20:30 84 25 H 116/49 99 04/15/19 20:00 97.6 F 86 22 122/62 97 04/15/19 19:30 87 21 106/71 97 04/15/19 19:00 86 18 130/49 97 04/15/19 18:30 86 26 H 116/56 98 04/15/19 18:00 85 24 114/42 98 04/15/19 17:45 81 43 H 130/49 97 04/15/19 17:30 87 45 H 116/43 98 04/15/19 17:15 80 46 H 136/49 98 04/15/19 17:00 87 32 H 124/49 98 04/15/19 16:45 81 53 H 120/47 99 04/15/19 16:30 81 43 H 116/45 98 04/15/19 16:00 82 32 H 144/59 98 Intake and Output 04/16/19 04/16/19 04/16/19 06:59 14:59 22:59 Intake Total 312.5 653.167 10 Output Total 1979 1310 225 Balance -1667.5 -656.833 -215 Intake: IV 221 566 10 0.9 NS 120 55 10 Furosemide 100 mg In 80 10 Sodium Chloride 0.9% 90 ml @ 10 MG/HR 10 mls/hr IV .Q10H [facility] Rx#: [id number] Normal Saline Pressure 21 Bag Vancomycin 2,250 mg In 501 Sodium Chloride 0.9% 500 ml 500 ml @ 167 mls/hr IVPB ONCE ONE Rx#: [id number] Intake, IV Titration 91.5 87.167 Amount Furosemide 100 mg In 91.5 87.167 Sodium Chloride 0.9% 90 ml @ 10 MG/HR 10 mls/hr IV .Q10H [facility] Rx#: [id number] Output: Urine 1979 1310 225 Other: Voiding Method Indwelling Catheter Indwelling Catheter # Bowel Movements 1 Weight 171 kg 171 kg GENERAL DESCRIPTION: Elderly female lying in bed, no distress. No tachypnea or accessory muscle of respiration use. HEENT: Shows Pallor , no scleral icterus. Oral mucous membrane is dry. No pharyngeal erythema or thrush NECK: Trachea central, no thyromegaly. LUNGS: Unlabored breathing. Decreased breath sound the bases. No wheeze or crackle. HEART: S1, S2, regular rate and rhythm. No loud murmur ABDOMEN: Soft, no tenderness , guarding or rigidity, no organomegaly EXTREMITIES: Diffuse swelling lower extremity SKIN: No rash, no masses palpable. NEUROLOGICAL: The patient is lethargic but arousable orientation could not be determined Results CBC & Chem 7: 04/16/19 04:15 04/16/19 04:15 Labs: Abnormal Lab Results - Last 24 Hours (Table) 04/15/19 04/15/19 04/15/19 Range/Units 17:56 22:00 23:53 WBC (3.8-10.6) k/uL RBC (3.80-5.40) m/uL Hgb (11.4-16.0) gm/dL Hct (34.0-46.0) % MCV (80.0-100.0) fL RDW (11.5-15.5) % Neutrophils # (Manual) (1.3-7.7) k/uL Metamyelocytes # (Man) (0) k/uL Myelocytes # (Manual) (0) k/uL Nucleated RBCs (0-0) /100 WBC APTT (22.0-30.0) sec Sodium (137-145) mmol/L BUN (7-17) mg/dL Creatinine (0.52-1.04) mg/dL Glucose (74-99) mg/dL POC Glucose (mg/dL) 196 H 192 H 233 H (75-99) mg/dL 04/16/19 04/16/19 04/16/19 Range/Units 04:15 04:15 04:15 WBC 17.7 H (3.8-10.6) k/uL RBC 2.56 L (3.80-5.40) m/uL Hgb 8.2 L (11.4-16.0) gm/dL Hct 26.4 L (34.0-46.0) % MCV 103.4 H (80.0-100.0) fL RDW 15.9 H (11.5-15.5) % Neutrophils # (Manual) 13.20 H (1.3-7.7) k/uL Metamyelocytes # (Man) 1.95 H (0) k/uL Myelocytes # (Manual) 0.71 H (0) k/uL Nucleated RBCs 1 H (0-0) /100 WBC APTT 60.0 H (22.0-30.0) sec Sodium 136 L (137-145) mmol/L BUN 30 H (7-17) mg/dL Creatinine 1.30 H (0.52-1.04) mg/dL Glucose 168 H (74-99) mg/dL POC Glucose (mg/dL) (75-99) mg/dL 04/16/19 04/16/19 Range/Units 05:57 12:05 WBC (3.8-10.6) k/uL RBC (3.80-5.40) m/uL Hgb (11.4-16.0) gm/dL Hct (34.0-46.0) % MCV (80.0-100.0) fL RDW (11.5-15.5) % Neutrophils # (Manual) (1.3-7.7) k/uL Metamyelocytes # (Man) (0) k/uL Myelocytes # (Manual) (0) k/uL Nucleated RBCs (0-0) /100 WBC APTT (22.0-30.0) sec Sodium (137-145) mmol/L BUN (7-17) mg/dL Creatinine (0.52-1.04) mg/dL Glucose (74-99) mg/dL POC Glucose (mg/dL) 185 H 125 H (75-99) mg/dL Microbiology - Last 24 Hours (Table) 04/09/19 12:40 Blood Culture - Final Blood No Growth after 144 hours Assessment and Plan Assessment: 1-patient with leukocytosis which is likely multifactorial in this patient has been admitted to the hospital with bradycardia and hypotension, and this patient likely have a lump with the hypoperfusion state possible mild ischemia as the patient currently with no obvious source of infection clinic as the patient now for underlying pneumonia UA has been negative and no evidence of any cellulitis 2-patient with a penicillin ALLERGY but a limited number of antibiotic safe to use (1) Leukocytosis Current Visit: Yes Status: Acute Code(s): D72.829 - ELEVATED WHITE BLOOD CELL COUNT, UNSPECIFIED SNOMED Code(s): 268636846 Plan: 1-discontinue the Levaquin 2-start the patient cefepime 2 g twice daily We will follow on clinical condition and cultures to further adjust medication if needed Thank you for this consultation will follow this patient with you Time with Patient: Greater than 30
[2019-04-16 23:35] LABS: Glucose,Whole Blood 163 mg/dL (75-99)
[2019-04-16] MEDS: ONDANSETRON 4 MG/2 ML VIAL IVP PRN (23:38)
[2019-04-17 04:16] LABS: HCT 26.9 % (34.0-46.0); HGB 8.3 gm/dL (11.4-16.0); Hypochromasia Slight; MCHC 30.8 g/dL (31.0-37.0); Macrocytosis Moderate; Mean Platelet Volume 7.2; Platelet Count 221 k/uL (150-450); RBC 2.58 m/uL (3.80-5.40); WBC 19.1 k/uL (3.8-10.6)
[2019-04-17] MEDS: FUROSEMIDE 100 MG in SODIUM CHLORIDE 0.9% 90 ML IV SCH (04:30)
[2019-04-17 04:49] LABS: Calcium 8.6 mg/dL (8.4-10.2); Magnesium 1.2 mg/dL (1.6-2.3); Potassium 3.6 mmol/L (3.5-5.1)
[2019-04-17 05:01] LABS: Band Neutrophils % 18 %; Basophils # (M) 0.19 k/uL (0-0.2); Eosinophils # (M) 0.38 k/uL (0-0.7); Lymphocytes # (M) 2.48 k/uL (1.0-4.8); Metamyelocytes # (M) 1.72 k/uL (0); Metamyelocytes % 9 %; Monocytes # (M) 1.34 k/uL (0-1.0); Myelocytes # (M) 0.96 k/uL (0); Myelocytes % 5 %; Neutrophils % (M) 45 %; Nucleated Red Blood Cells 0 /100 WBC (0-0); Total Cells Counted 100
[2019-04-17 05:02] LABS: Polychromasia Present
[2019-04-17 05:03] LABS: Toxic Granulation Present
[2019-04-17 05:04] LABS: Anisocytosis (M) Present
[2019-04-17] MEDS ORDERED: Potassium Replacement Protocol 1 EACH MISC MISCELLANE PRN ×2 (05:34→05:39)
[2019-04-17] MEDS ORDERED: Magnesium Replacement Protocol 1 EACH MISC MISCELLANE PRN ×2 (05:35→05:40)
[2019-04-17 06:02] LABS: Glucose,Whole Blood 178 mg/dL (75-99)
[2019-04-17] MEDS: GABAPENTIN 100 MG CAP PO SCH ×2 (06:05→20:35)
[2019-04-17] MEDS: POTASSIUM CHLORIDE 10 MEQ in WATER FOR INJECTION 1 100ML.BAG IVPB SCH ×2 (06:05→07:04)
[2019-04-17] MEDS: MAGNESIUM SULFATE-D5W PMX 1 GM in DEXTROSE/WATER 1 100ML.BAG IVPB SCH ×3 (06:05→07:55)
[2019-04-17] MEDS: MIDODRINE 5 MG TAB PO SCH ×3 (06:06→16:21)
[2019-04-17] MEDS: INSULIN ASPART (NovoLOG) 100 UNIT/ML VIAL SQ SCH ×3 (06:08→17:28)
[2019-04-17] MEDS: ASPIRIN 81 MG PO SCH (07:56)
[2019-04-17] MEDS: AMIODARONE 200 MG TAB PO SCH ×3 (07:56→20:35)
[2019-04-17] MEDS: METOPROLOL TARTRATE 25 MG TAB PO SCH ×2 (07:57→20:35)
[2019-04-17] MEDS: CITALOPRAM HYDROBROMIDE 10 MG TAB PO SCH (07:57)
[2019-04-17] MEDS: FERROUS SULFATE 325 MG TAB PO SCH (07:57)
[2019-04-17] MEDS: CITALOPRAM HYDROBROMIDE 20 MG TAB PO SCH (07:57)
[2019-04-17] MEDS: CLOPIDOGREL 75 MG TAB PO SCH (07:57)
[2019-04-17] MEDS: PANTOPRAZOLE 40 MG TABLET PO SCH ×2 (07:58→09:12)
--- NOTE | 2019-04-17 08:05 | XR ---
EXAMINATION TYPE: XR chest 1V portable DATE OF EXAM: 04/17/2019 COMPARISON: 04/16/2019 HISTORY: Tube placement TECHNIQUE: Single frontal view of the chest is obtained. FINDINGS: PICC line stable. There is hilar enlargement bilaterally with cardiomegaly. Bilateral cons olidation pleural effusion. Diffuse interstitial pattern. No definite pneumothorax. IMPRESSION: 1. Correlate for CHF otherwise consider pneumonia. Bilateral hilar enlargement persists.
[2019-04-17] MEDS: BUDESONIDE 1 MG/2 ML NEBU INHALATION SCH ×2 (08:31→19:58)
--- NOTE | 2019-04-17 08:41 | CDI ---
Documentation Clarification Form Date: 04/17/2019 08:24:02 AM From: Stephenie Rodriguez RN, CCDS Admit Date: 04/09/2019 01:51:00 PM Patient Name: Carla Garvin Visit Number: [id number] ATTENTION: The Clinical Documentation Specialists (CDI) and [facility] Coding Staff appreciate your assistance in clarifying documentation. Please respond to the clarification below the line at the bottom and electronically sign. The CDI & [facility] Coding staff will review the response and follow-up if needed. Please note: Queries are made part of the Legal Health Record. If you have any questions, please contact the author of this message via ITS. Dr. Chris Yi Shock is documented in the 04/10- 04/14 per Attending documentation and requires further specificity. Patient history/risk factors: CHF, HTN, CAD with hx of stent Clinical Indicators: 04/11 Attending (hospitalist): "Hyperkalemia, improving Bradycardia and hypotension could be due to hyperkalemia Hypotension, Rule out septic shock. 04/14 Nephrology:"shock on pressors 04/16 Attending (Kd): "Hypotension, pressor dependent 04/16 ID consult: "admitted to the hospital with bradycardia and hypotension, and this patient likely have a lump with the hypoperfusion state possible mild ischemia as the patient currently with no obvious source of infection clinic as the patient now for underlying pneumonia UA has been negative and no evidence of any cellulitis." 04/09 1336 Vitals: HR 56, RR 22, B/P 76/61, spo2 92% 4L NC Treatment: Leovphed titrate for B/P ordered 04/09 currently running per I&O 04/09 2l IVF 0.9% NS bolus 04/14 Patient placed on a Lasix Gtt at 10 mg/hr In your professional opinion, can you please specify the type of shock if known? Septic Shock Suspected or known causative organism Any associated organ failure Cardiogenic Shock Cause Hypovolemic Shock Cause Other, please specify Unable to determine MTDD
[2019-04-17] MEDS ORDERED: CEFEPIME 2 GM in SODIUM CHLORIDE 0.9% 100 ML IVPB SCH (09:00)
--- NOTE | 2019-04-17 09:33 | PN ---
PROGRESS NOTE Carla is a 74-year-old lady that was admitted to the hospital with symptomatic bradycardia secondary to hyperkalemia. She is doing much better, has leg edema. She is on Lasix drip, putting about 150 to 200 mL urine. Will switch it to Lasix 60 mg IV q.8. She still appears slightly confused and still has problems swallowing and she is on IV heparin for paroxysmal atrial fibrillation. PHYSICAL EXAM: Heart rate is 80 beats per minute. Blood pressure is 118/50, respiratory rate is 18. There is no jugular venous distention. Chest exam reveals good air entry bilaterally. Heart exam reveals first and second heart sounds. No gallop. No murmur. Abdomen is soft. Exam of the extremities reveals bilateral ankle edema. LABS: Show a hemoglobin of 8.3, platelet count is 220. Potassium is 3.6, creatinine is 1.2. ASSESSMENT: 1. Paroxysmal atrial fibrillation. 2. Respiratory failure requiring intubation. 3. Morbid obesity. 4. Chronic congestive heart failure. 5. Acute on chronic renal failure. PLAN: I will continue the patient. I will change the Lasix to 60 mg q.8. Followup evaluation and whenever patient can take p.o. medications will switch her heparin. MMODL / IJN: [id number] /
--- NOTE | 2019-04-17 10:00 | P.PN ---
Subjective Progress Note Date: 04/17/19 Principal diagnosis: Symptomatic bradycardia, hypotension and hyperkalemia This is a 74-year-old female with known history of multiple medical problems including diastolic congestive heart failure, hypertension, diabetes, coronary artery disease and previous stent placement, chronic low back pain, urinary incontinence, irritable bowel syndrome, cervical cancer and previous hyst erectomy, patient was sent to the ER last night from the [facility] on the [place] with complaints of shortness of breath. Patient has been complaining of shortness of breath for the last 2-3 days. She was also complaining of right mid abdominal and right flank pain. She had no chest pain, no nausea no vomiting, no fever no chills no hemoptysis. Patient was feeling extremely tired and exhausted. Upon evaluation in the ER, patient was noted to be profoundly bradycardic, heart rate ranging between 40 and 60. Blood pressure on arrival was 76/61. Patient had a right femoral triple-lumen catheter placed by the ER physician, and she had fluid boluses at least 2 L were given in the form of 0.9 normal saline. Patient was placed on dopamine for her profound bradycardia, and she is presently on dopamine at 5 mcg/kg/m. Remained hypotensive, hence norepinephrine at 0.04 mcg/kg/m was added. Maintained on IV fluid at 100 mL/h, admitted to the ICU, and this consult was initiated. I evaluated the patient in the ICU, kept her on dopamine and norepinephrine, and she was seen by nephrology on consultation last night, patient underwent stat hemodialysis mostly because of her hyperkalemia and acute kidney injury. Reevaluated today on 04/11/2019, patient remains on norepinephrine at 0.04 mcg/kg/m, blood pressure remains marginal, hence a left radial arterial line was placed. Patient is off dopamine, she is in sinus rhythm, and no further episodes of bradycardia. She is alert oriented 3, according to the nurse she had intermittent episodes of confusion, but her mental status seems to be intact this morning. Chest x-ray showed cardiomegaly and interstitial edema with bibasilar atelectasis. Electrolytes are much improved potassium is down to 5.2 BUN is 51 creatinine 2.31, no plans for dialysis today. WBC count is 16.3 hemoglobin is 9.7. Patient denies any shortness of breath, she feels generally weak. Patient was reevaluated today on 04/12/2019. Patient developed sustained ventri cular tachycardia earlier this morning, patient was shocked about 6 times, she was given lidocaine and amiodarone as per cardiology at bedside, patient was intubated, and she was taken down for a cardiac catheterization by cardiology. I reviewed the ventilator settings, and I recommended tidal volume of 500, assist control rate of 20, FiO2 of 100% and PEEP of 5. ABG is pending. Cardiac catheterization report is pending but I was informed that she had no significant coronary artery disease to speak of. Chest x-ray showed bibasilar atelectasis, possibly infiltrates, patient may have developed some component of aspiration pneumonia. Labs today showed leukocytosis with WBC count of 22.9 hemoglobin 8.3, electrolytes are normal, BUN is 43 creatinine 2.0. Cardiology October he was concerned about the possibility of non-ST segment elevation myocardial infarction. Later on patient was noted to have atrial fibrillation with poorly controlled ventricular rate. And again her cardiac catheterization official report is pending Reevaluated today on 04/13/2019, patient remains intubated, on mechanical ventilation, her ventilator settings are assist control rate of 20 and I cut it down to 16 FiO2 is 40%, and I cut it down to 35%. Tidal volume is 500 remains the same and PEEP is at 5. Patient is requiring propofol at 50 mcg/kg/m, she is on norepinephrine at 0.05 mcg/kg/m. Amiodarone drip, Cardizem drip at 5 mg per hour. She is also on heparin. Her cardiac catheterization yesterday was basically unremarkable. Hence the store clerk checker seems to be concerned about pulmonary embolism, clinically that is unlikely based on the clinical history, not to mention the patient has been on anticoagulation therapy all along since admission. At this point patient is not to get the CT of the chest, since the index of suspicion for pulmonary embolism is low and since her renal functioning is marginal. Would rather continue anticoagulation therapy and did not do a CT of the chest at this point. ABG today showed a pO2 of 133 pCO2 of 27 pH of 7.52 again her FiO2 was decreased down to 35%. Patient is sedated on propofol, and I plan to give the patient a sedation holiday, and hopefully assess mental status, no plans to wean and extubate at this point. Still concerned about her issue of an arrhythmia and recurrent episodes of ventricular tachycardia. Chest x-ray showed no significant interval change from before, there is vascular congestion and mild pulmonary edema with bibasilar atelectasis, doubt pneumonia Patient was reevaluated today on 04/24/2019 remains intubated, mechanically ventilated, but the settings are tidal volume of 500 assist control rate of 16 FiO2 of 35% and PEEP of 5. No ABG was done this morning, apparently her arterial line is nonfunctional. However the patient seems to be very comfortable, and she was given a weaning trial while I was at bedside. She had a relatively good weaning parameters, she had good tidal volume on pressure support of 8 and CPAP, her volume was around 450, her rate was in the high teens, and the patient was noted to be in no distress. 45 minutes on pressure support and CPAP were done, and I extubated the patient uneventfully. Chest x- ray continues to show some fluid overload, atelectasis at the bases, patient continues to be swollen and edematous, and now she is placed on Lasix drip as per nephrology. WBC count today is 25 hemoglobin is 9.3 remains on heparin with a PTT of 48.5. Electrolytes are normal, BUN is 30 creatinine is 1.42. No arrhythmias noted over the last 24 hours. And the patient is on minimal dose of norepinephrine at 0.03 mcg/kg/m. This would likely be discontinued postextubation On 04/15/2011 patient seen in follow-up in the intensive care unit, she is awake, remains very confused, at times she is calling out for help, appears to be in any acute distress, no signs of any respiratory distress, she is on 2 L of oxygen with pulse ox of 98%, she is afebrile, she remains on small amount of leukocyte at 8 mics per minute, maintenance IV fluids are 0.9 normal saline at a rate of 20 ML per hour, Lasix drip is at 10 mg per hour, and heparin per weight- based protocol. Remains in sinus rhythm on the monitor with a controlled rate, patient is receiving a combination of oral amiodarone, Lopressor, for recent history of ventricular tachycardia. No complaints of chest pain. She is rece iving midodrine for hypotension which we can increase to 10 mg 3 times daily. She remains on empiric antibiotics with Levaquin and vancomycin. There is no cough, no sputum production, blood and urine cultures have shown no growth so far. Today's labs have been reviewed, white blood cell count is trending up, 25.2 and today's labs, hemoglobin is 8.9, sodium is 132, demonstrates electrolytes were within normal limits, renal profile is relatively stable with BUN of 33 and creatinine of 1.5. Today's chest x-ray has been reviewed showing bilateral pleural effusions, cardiomegaly and bibasilar infiltrates, diffuse interstitial pattern. No fever or chills. Remains on Lasix infusion, the patie nt is only modestly in negative fluid balance, still has significant amount of fluid in his abdominal wall, and generalized anasarca. She still has a hemodialysis catheter in her left groin and his central line venous catheter in the right groin, patient has skin breakdown in the groin folds. Patient has not been able to pass a swallow evaluation, in her oral medications have been on hold and patient remains nothing by mouth until seen by speech therapy. On April 16 2019, patient is seen in follow-up in the intensive care unit, more awake and conversant on today's exam, answering simple questions, oriented to person and place, but is intermittently confused. Denies any acute distress, still mildly dyspneic with conversation, oxygenation is stable on 2 L of oxygen her pulse ox is 97%, patient has been afebrile. Hemodynamically patient has improved, and she was able to be weaned off the levo fed since yesterday. She remains on Lasix drip at 10 mg per hour, and heparin per weight-based protocol. Patient is diuresing, and she is in negative for thousand 586 mL fluid balance over the last 24 hours, Lyme status is improving, and patient is -6 kg in the last 24 hours. Today's labs have been reviewed, showing white blood cell count of 17.7, crit cytosis is improving, hemoglobin is 8.2, serum sodium is 136, the rest of electrolytes were within normal limits, renal profile is improving, with BUN 30 and creatinine is 1.3. Blood and urine culture remained negative, lung sounds are positive for end expiratory wheezing, today's chest x-ray was reviewed showing improved aeration at the right base, and improvement in the appearance of interstitial edema. Patient's hemodialysis catheter from the left groin and central line from the right coronary were removed yesterday, and patient had a PICC line inserted in the right upper extremity. On 04/17/2019 patient seen in follow-up in intensive care unit, she is lethargic on today's exam, but does open eyes and answer some simple questions, denies any acute distress, she is currently on nasal oxygen with a pulse ox of 96-98%, she's been afebrile, hemodynamically she remains stable, her levo fed has been on hold for last 48 hours, patient remains on Lasix drip at 10 mg per hour, heparin drip per weight-based protocol and 0.9 normal saline at a rate of 20 ML per hour. She is in -3115 mL fluid balance over the last 24 hours, still has quite significant generalized edema and weeping edema involving her lower extremities. Today's labs have been reviewed, showing white blood cell count of 19.1, hemoglobin of 8.3, serum sodium is 136, potassium 3.6, CO2 32, B1 is 29, creatinine is 1.25. Blood cultures and urine cultures have been negative thus far. Today's chest x-ray has been reviewed showing bilateral consolidation, pleural effusions, diffuse interstitial pattern. Patient will have her swallow evaluated again today, and has been nothing by mouth for last 3 days. Objective - Vital Signs Vital signs: Vital Signs Temp 97.8 F 04/17/19 08:00 Pulse 85 04/17/19 09:00 Resp 26 H 04/17/19 09:00 BP 118/54 04/17/19 09:00 Pulse Ox 96 04/17/19 09:00 Intake & Output 04/16/19 04/17/19 04/17/19 18:59 06:59 18:59 Intake Total 693.167 551.467 430 Output Total 2060 2300 555 Balance -1366.833 -1748.533 -125 Weight 171 kg 172.8 kg Intake: IV 606 125 430 0.9 NS 95 125 30 Furosemide 100 mg In 10 Sodium Chloride 0.9% 90 ml @ 10 MG/HR 10 mls/hr IV .Q10H [facility] Rx#: [id number] Magnesium Sulfate-D5w Pmx 200 1 gm In Dextrose/Water 1 100ml.bag @ 100 mls/hr IVPB Q1H [facility] Rx#: [id number] Potassium Chloride 10 meq 200 In Water For Injection 1 100ml.bag @ 100 mls/hr IVPB Q1H [facility] Rx#: [id number] Vancomycin 2,250 mg In 501 Sodium Chloride 0.9% 500 ml 500 ml @ 167 mls/hr IVPB ONCE ONE Rx#: [id number] Intake, IV Titration 87.167 426.467 Amount Furosemide 100 mg In 87.167 190 Sodium Chloride 0.9% 90 ml @ 10 MG/HR 10 mls/hr IV .Q10H [facility] Rx#: [id number] Heparin Sod,Pork in 0.45% 236.467 NaCl 25,000 unit In 0.45 % NaCl 1 250ml.bag @ 6. 024 UNITS/KG/HR 10 mls/hr IV .Q24H [facility] Rx#: [id number] Output: Urine 2060 2300 555 Other: Voiding Method Indwelling Catheter Indwelling Catheter Indwelling Catheter # Bowel Movements 1 ABP, PAP, CO, CI - Last Documented Arterial Blood Pressure 81/52 - Exam GENERAL EXAM: Lethargic but arousable 74-year-old obese white female, 2 L of oxygen with pulse ox of 96%, answers simple questions, mildly dyspneic with conversation comfortable in no apparent distress. HEAD: Normocephalic/atraumatic. EYES: Normal reaction of pupils, equal size. Conjunctiva pink, sclera white. NOSE: Clear with pink turbinates. THROAT: No erythema or exudates. NECK: No masses, no JVD, no thyroid enlargement, no adenopathy. CHEST: No chest wall deformity. Symmetrical expansion. LUNGS: Diminished air entry with end expiratory wheezes CVS: Regular rate and rhythm, normal S1 and S2, no gallops, no murmurs, no rubs ABDOMEN: Soft, obese, with a significant amount of abdominal wall edema. No hepatosplenomegaly, normal bowel sounds, no guarding or rigidity. EXTREMITIES: No clubbing, no cyanosis, 2+ pulses and upper and lower extremities. Significant amount of upper and lower extremity edema anasarca, and edema of abdominal wall MUSCULOSKELETAL: Muscle strength and tone normal. SPINE: No scoliosis or deformity SKIN: Groin folds positive for redness, moisture and rash patient has hemodialysis catheter in the left groin in right groin central catheter CENTRAL NERVOUS SYSTEM: Alert and oriented -2, intermittently confused No focal deficits, tone is normal in all 4 extremities. - Labs CBC & Chem 7: 04/17/19 04:00 04/17/19 04:00 Labs: Abnormal Lab Results - Last 24 Hours (Table) 04/16/19 04/16/19 04/16/19 Range/Units 12:05 17:21 20:52 WBC (3.8-10.6) k/uL RBC (3.80-5.40) m/uL Hgb (11.4-16.0) gm/dL Hct (34.0-46.0) % MCV (80.0-100.0) fL MCHC (31.0-37.0) g/dL RDW (11.5-15.5) % Neutrophils # (Manual) (1.3-7.7) k/uL Monocytes # (Manual) (0-1.0) k/uL Metamyelocytes # (Man) (0) k/uL Myelocytes # (Manual) (0) k/uL APTT (22.0-30.0) sec Sodium (137-145) mmol/L Carbon Dioxide (22-30) mmol/L BUN (7-17) mg/dL Creatinine (0.52-1.04) mg/dL Glucose (74-99) mg/dL POC Glucose (mg/dL) 125 H 128 H 115 H (75-99) mg/dL Magnesium (1.6-2.3) mg/dL 04/16/19 04/17/19 04/17/19 Range/Units 23:34 04:00 04:00 WBC 19.1 H (3.8-10.6) k/uL RBC 2.58 L (3.80-5.40) m/uL Hgb 8.3 L (11.4-16.0) gm/dL Hct 26.9 L (34.0-46.0) % MCV 104.0 H (80.0-100.0) fL MCHC 30.8 L (31.0-37.0) g/dL RDW 16.0 H (11.5-15.5) % Neutrophils # (Manual) 12.00 H (1.3-7.7) k/uL Monocytes # (Manual) 1.34 H (0-1.0) k/uL Metamyelocytes # (Man) 1.72 H (0) k/uL Myelocytes # (Manual) 0.96 H (0) k/uL APTT (22.0-30.0) sec Sodium 136 L (137-145) mmol/L Carbon Dioxide 32 H (22-30) mmol/L BUN 29 H (7-17) mg/dL Creatinine 1.25 H (0.52-1.04) mg/dL Glucose 159 H (74-99) mg/dL POC Glucose (mg/dL) 163 H (75-99) mg/dL Magnesium 1.2 L (1.6-2.3) mg/dL 04/17/19 04/17/19 Range/Units 05:05 06:00 WBC (3.8-10.6) k/uL RBC (3.80-5.40) m/uL Hgb (11.4-16.0) gm/dL Hct (34.0-46.0) % MCV (80.0-100.0) fL MCHC (31.0-37.0) g/dL RDW (11.5-15.5) % Neutrophils # (Manual) (1.3-7.7) k/uL Monocytes # (Manual) (0-1.0) k/uL Metamyelocytes # (Man) (0) k/uL Myelocytes # (Manual) (0) k/uL APTT 49.1 H (22.0-30.0) sec Sodium (137-145) mmol/L Carbon Dioxide (22-30) mmol/L BUN (7-17) mg/dL Creatinine (0.52-1.04) mg/dL Glucose (74-99) mg/dL POC Glucose (mg/dL) 178 H (75-99) mg/dL Magnesium (1.6-2.3) mg/dL Assessment and Plan Plan: Assessment: #1. Acute hypoxic respiratory failure secondary to ventricular tachycardia, A. fib with RVR, congestive heart failure, requiring intubation and mechanical ventilation. Patient was intubated on 04/12/2019 and successfully weaned and extubated on 04/14/2019. Patient is status post synchronized cardioversion 6 with successful conversion to sinus rhythm, cardiac catheterization did not show significant obstructive coronary artery disease #2. Acute exacerbation of congestive heart failure with preserved ventricular systolic function and EF of 50-55% #3. Symptomatic bradycardia with hypotension related to hyperkalemia on presentation, resolved #4. Acute kidney injury secondary to acute tubular necrosis and hypotension and bradycardia, improving #5. Leukocytosis, patient is empirically covered with Rocephin and vancomycin has had no fever. Urine and blood cultures have shown no growth #6. Hyperkalemia secondary to a TIA resolved #7. Insulin dependent diabetes mellitus #8. History of coronary artery disease and previous stent placement #9. Irritable bowel syndrome #10. Chronic urinary incontinence #11. History of cervical cancer previous hysterectomy #12. History of partial parathyroidectomy #13. History of benign essential hypertension #14. Chronic diastolic CHF #15. Status post cardiac catheterization no significant coronary artery disease #16. Metabolic encephalopathy Plan: Patient continues on Lasix drip, is maintaining negative fluid balance, still has quite significant generalized edema, anasarca, today's chest x-ray has been reviewed is still showing changes of interstitial edema, bilateral pleural effusions, changes consistent with CHF, but oxygenation is stable, patient is on FiO2 of 2 L, her pulse ox is 96-97%, no recurrence of dysrhythmias. May utilize BiPAP support is needed, we'll reevaluate patient's swallowing ability, patient may need Dobbhoff or NG tube placed for supplementation of oral feedings. Continue GI and DVT prophylaxis, today's labs have been reviewed. Avoid sedatives and narcotics. Overall prognosis is guarded. We'll continue supportive treatment. We'll continue to follow in the intensive care unit. I performed a history & physical examination of the patient and discussed their management with my nurse practitioner, Norma Avila. I reviewed the nurse practitioner's note and agree with the documented findings and plan of care. Lung sounds are positive for diminished breath sounds. The findings and the impression was discussed with the patient. I attest to the documentation by the nurse practitioner. Time with Patient: Less than 30
[2019-04-17] MEDS: NOREPINEPHRINE 32 MG in SODIUM CHLORIDE 0.9% 218 ML IV SCH (14:10)
[2019-04-17] MEDS: FUROSEMIDE 10 MG/ML 10 ML VIAL IV SCH (16:20)
--- NOTE | 2019-04-17 17:09 | P.PN ---
Subjective Progress Note Date: 04/17/19 this is 74 showed female admitted with acute hypoxic respiratory failure, ventricular tachycardia,atrial fibrillation with RVR, CHF, status post mechanical ventilation, anasarca and multiple other medical issues.vital signs stable, maintaining O2 sats in the 90s on2 L nasal cannula.no further arrhythmias reported. Afebrile,WBC 25.2,urine culture negative, blood cultures negative,maintained on empiric antibiotics of Levaquin.chest x-rayconsistent with fluid overload, reporting bilateral pleural effusions with cardiomegaly and bibasilar infiltrate, diffuse interstitial pattern.maintained on Lasix drip, diuresing well with 24-hour I&O reflecting a negative fluid balance. Creatinine 1.5. Currently requiring 7 mics of Levophed. PICC line placed. Maintained on heparin drip. Telemetry sinus rhythm, on beta tish and oral amiodarone. Speech therapy evaluation pending. 04/16/2019 maintained on Lasix and heparin drips.diuresing well with 24-hour I&O reflecting a negative fluid balance. Positive bowel movement today.Sensorium slowly improving -More alert today, answering simple questions, conversing. Reports generalized diffuse discomfort from bed. Levophed weaned off yesterday. Continues on Levaquin, Afebrile, leukocytosis improving. Dialysis catheter removed yesterday. Renal function improving, creatinine 1.3. Currently NPO with significant generalized weakness Sodium improving, 136. Chest x-ray stable reporting similar findings to prior of bibasilar effusions, atelectasis, pneumonia/edema with possible underlying pulmonary artery hypertension. 04/17/19 Lasix drip converted to IV push. Diuresing well with 24-hour I&O reflecting a negative fluid balance. Creatinine 1.25. Magnesium 1.2-magnesium replacement ordered. Patient passed swallow evaluation. Maintained on heparin drip. Evaluated by infectious disease, antibiotics adjusted. Afebrile, WBC 19.1. Chest x-ray reporting persistent bilateral hilar enlargement with cardiomegaly, bilateral consolidation/pleural effusion,diffuse interstitial pattern,. Objective - Vital Signs Vital signs: Vital Signs Temp 97.8 F 04/17/19 08:00 Pulse 90 04/17/19 16:00 Resp 20 04/17/19 16:00 BP 99/51 04/17/19 16:00 Pulse Ox 96 04/17/19 16:00 Intake & Output 04/16/19 04/17/19 04/17/19 18:59 06:59 18:59 Intake Total 693.167 551.467 460 Output Total 2059 2299 1864 Balance -1366.833 -1748.533 -1405 Weight 171 kg 172.8 kg Intake: IV 606 125 460 0.9 NS 95 125 60 Furosemide 100 mg In 10 Sodium Chloride 0.9% 90 ml @ 10 MG/HR 10 mls/hr IV .Q10H J[facility]IER Rx#: [id number] Magnesium Sulfate-D5w Pmx 200 1 gm In Dextrose/Water 1 100ml.bag @ 100 mls/hr IVPB Q1H JAVIER Rx#: [id number] Potassium Chloride 10 meq 200 In Water For Injection 1 100ml.bag @ 100 mls/hr IVPB Q1H J[facility]IER Rx#: [id number] Vancomycin 2,250 mg In 501 Sodium Chloride 0.9% 500 ml 500 ml @ 167 mls/hr IVPB ONCE ONE Rx#: [id number] Intake, IV Titration 87.167 426.467 Amount Furosemide 100 mg In 87.167 190 Sodium Chloride 0.9% 90 ml @ 10 MG/HR 10 mls/hr IV .Q10H JAVIER Rx#: [id number] Heparin Sod,Pork in 0.45% 236.467 NaCl 25,000 unit In 0.45 % NaCl 1 250ml.bag @ 6. 024 UNITS/KG/HR 10 mls/hr IV .Q24H JAVIER Rx#: [id number] Output: Urine 2059 2299 1864 Other: Voiding Method Indwelling Catheter Indwelling Catheter Indwelling Catheter # Bowel Movements 1 ABP, PAP, CO, CI - Last Documented Arterial Blood Pressure 81/52 - Exam PHYSICAL EXAM: VITAL SIGNS: [as above] GENERAL: sitting up in bed, lethargic, no acute distress HEENT: Conjunctivae normal. eyes normal. NECK: No JVD. No thyroid enlargement. No LNs CARDIOVASCULAR: S1, S2 regular.. No murmur RESPIRATION: Breath sounds diminished in the bases. No rhonchi or crackles. And expiratory wheezing ABDOMEN: Soft, obese, nontender . No guarding. no masses palpable. Bowel sounds heard. LEGS: Diffuse lower extremity weeping edema. Multiple bruising on all extremities. PSYCHIATRY: Alert and oriented X2, mood and affect normal. NERVOUS SYSTEM: Cranial N 2-12 grossly normal. Moves all 4 limbs. Diffuse weakness No focal deficits. Strength and sensation grossly intact.. Skin: No rash, Microbiology 04/09/19 12:40 Blood Blood Culture - Final No Growth after 144 hours 04/09/19 15:15 Urine,Voided Urine Culture - Final - Labs CBC & Chem 7: 04/17/19 04:00 04/17/19 04:00 Labs: Abnormal Lab Results - Last 24 Hours (Table) 04/16/19 04/16/19 04/16/19 Range/Units 17:21 20:52 23:34 WBC (3.8-10.6) k/uL RBC (3.80-5.40) m/uL Hgb (11.4-16.0) gm/dL Hct (34.0-46.0) % MCV (80.0-100.0) fL MCHC (31.0-37.0) g/dL RDW (11.5-15.5) % Neutrophils # (Manual) (1.3-7.7) k/uL Monocytes # (Manual) (0-1.0) k/uL Metamyelocytes # (Man) (0) k/uL Myelocytes # (Manual) (0) k/uL APTT (22.0-30.0) sec Sodium (137-145) mmol/L Carbon Dioxide (22-30) mmol/L BUN (7-17) mg/dL Creatinine (0.52-1.04) mg/dL Glucose (74-99) mg/dL POC Glucose (mg/dL) 128 H 115 H 163 H (75-99) mg/dL Magnesium (1.6-2.3) mg/dL 04/17/19 04/17/19 04/17/19 Range/Units 04:00 04:00 05:05 WBC 19.1 H (3.8-10.6) k/uL RBC 2.58 L (3.80-5.40) m/uL Hgb 8.3 L (11.4-16.0) gm/dL Hct 26.9 L (34.0-46.0) % MCV 104.0 H (80.0-100.0) fL MCHC 30.8 L (31.0-37.0) g/dL RDW 16.0 H (11.5-15.5) % Neutrophils # (Manual) 12.00 H (1.3-7.7) k/uL Monocytes # (Manual) 1.34 H (0-1.0) k/uL Metamyelocytes # (Man) 1.72 H (0) k/uL Myelocytes # (Manual) 0.96 H (0) k/uL APTT 49.1 H (22.0-30.0) sec Sodium 136 L (137-145) mmol/L Carbon Dioxide 32 H (22-30) mmol/L BUN 29 H (7-17) mg/dL Creatinine 1.25 H (0.52-1.04) mg/dL Glucose 159 H (74-99) mg/dL POC Glucose (mg/dL) (75-99) mg/dL Magnesium 1.2 L (1.6-2.3) mg/dL 04/17/19 Range/Units 06:00 WBC (3.8-10.6) k/uL RBC (3.80-5.40) m/uL Hgb (11.4-16.0) gm/dL Hct (34.0-46.0) % MCV (80.0-100.0) fL MCHC (31.0-37.0) g/dL RDW (11.5-15.5) % Neutrophils # (Manual) (1.3-7.7) k/uL Monocytes # (Manual) (0-1.0) k/uL Metamyelocytes # (Man) (0) k/uL Myelocytes # (Manual) (0) k/uL APTT (22.0-30.0) sec Sodium (137-145) mmol/L Carbon Dioxide (22-30) mmol/L BUN (7-17) mg/dL Creatinine (0.52-1.04) mg/dL Glucose (74-99) mg/dL POC Glucose (mg/dL) 178 H (75-99) mg/dL Magnesium (1.6-2.3) mg/dL Assessment and Plan Assessment: Acute hypoxic respiratory failure secondary to ventricular tachycardia followed by atrial fibrillation with RVR , requiring mechanical ventilation. And shocking about 6 times. Status post mechanical ventilation Hypotension, pressor dependent Leukocytosis, afebrile, urine and blood cultures negative, on empiric antibiotics Acute metabolic encephalopathy, multifactorial, secondary to all the above Symptomatic bradycardia with hypotension secondary to hyperkalemia, Acute kidney injury secondary to acute tubular necrosis ,hypotension with bradycardia. Hyperkalemia secondary to acute kidney injury. Insulin dependent diabetes mellitus. History of coronary artery disease and previous stent placement Irritable bowel syndrome Chronic urinary incontinence History of cervical cancer and previous hysterectomy History of partial parathyroidectomy History of benign essential hypertension Chronic diastolic congestive heart failure Status post cardiac catheterization, reporting no significant obstructive CAD. Morbid obesity, BMI 73.7 Plan: Continue current medication regime ,monitoring and symptomatic treatment. Lasix IV push. Close monitoring of renal function with repeat labs ordered for a.m. maintain IV antibiotics of cefepime as per ID. Anticoagulation as per cardiology. Prognosis guarded given multiple complex medical issues. The impression and plan of care has been dictated as directed. : I performed a history and examination of this patient, discussed the same with the dictator. I agree with the dictator's note ,documented as a scribe. Any additional findings or plans will be noted.
[2019-04-17 17:26] LABS: Glucose,Whole Blood 183 mg/dL (75-99)
[2019-04-17] MEDS: HEPARIN SOD,PORK IN 0.45% NACL 25,000 UNIT in 0.45% NACL 1 250ML.BAG IV SCH (17:28)
--- NOTE | 2019-04-17 18:13 | PN ---
PROGRESS NOTE Patient is seen for followup for acute kidney injury. She is currently sitting up, having updraft treatment. Patient is maintained on Lasix drip. She continues to have excellent urine output, staying at about 150 to 200 mL/hour. Her 24-hour output was about 5.2 liters. PHYSICAL EXAMINATION: On examination today, blood pressure this morning was 113/49, heart rate 86 per minute. Patient is afebrile. EXAMINATION OF THE HEART: S1 and S2. EXAMINATION OF LUNGS: Decreased breath sounds at bases. B ABDOMEN: Soft. Morbidly obese. Examination of lower extremities shows significant edema; 3+ bilaterally. TAX SPECIALIST exam shows patient moving all 4 extremities. LABS: Hemoglobin 8.3, sodium 136, potassium 3.6, BUN 29, creatinine 1.25. ASSESSMENT: 1. Acute kidney injury, acute tubular necrosis, currently significantly improved. The patient had been on dialysis for a short period of time. Her dialysis catheter is now removed. Creatinine is down to 1.2 from around 5 mg/dL on initial admission. 2. Severe hyperkalemia, currently improved, associated with acute kidney injury. 3. Severe volume overload, slowly improving. Patient remains on Lasix drip, which we can switch to IV push Lasix. 4. Morbid obesity. 5. Acute hypoxic respiratory failure associated with atrial fibrillation with rapid ventricular response, ventricular tachycardia, congestive heart failure, status post extubation. 6. Cardiac dysrhythmia/ventricular tachycardia, status post cardioversion and cardiac catheterization with no evidence of significant disease requiring intervention. PLAN: Discontinue Lasix drip. Switch to 60 mg of Lasix IV q.8 hours. MMODL / IJN: [id number] /
--- NOTE | 2019-04-17 18:58 | PN ---
PROGRESS NOTE DATE OF SERVICE: 04/17/2019. REASON FOR FOLLOWUP: Leukocytosis, possible pneumonia versus UTI. INTERVAL HISTORY: The patient is currently afebrile. The patient is breathing comfortably. The patient did have a congested cough but not bringing up any sputum. No nausea, no vomiting. Denies any abdominal pain and no diarrhea reported. PHYSICAL EXAMINATION: Blood pressure is 102/52 with a pulse of 82, temperature 98. She is 97% on 2 L nasal cannula. General description is an elderly female lying in bed in no distress. RESPIRATORY SYSTEM: Unlabored breathing. Some coarse breath sounds bilaterally. No wheeze. HEART: S1, S2. Regular rate and rhythm. ABDOMEN: Soft. No tenderness. LABS: Hemoglobin 8.3, white count 19.1, BUN of 29, creatinine 1.25. DIAGNOSTIC IMPRESSION AND PLAN: Patient with leukocytosis which is likely multifactorial in this patient with significant hypertension, bradyarrhythmia, possible pneumonia less likely but not entirely excluded, plus or minus UTI. The patient is currently covered with cefepime and vancomycin; to continue. Will monitor her white count and cultures closely and continue with supportive care. MMODL / IJN: [id number] /
[2019-04-17] MEDS: CHOLECALCIFEROL 1,000 UNIT TAB PO SCH (20:35)
[2019-04-17] MEDS: ATORVASTATIN 40 MG TAB PO SCH (20:35)
[2019-04-17] MEDS: ARIPiprazole 5 MG TAB PO SCH (20:35)
[2019-04-17 21:14] LABS: Glucose,Whole Blood 206 mg/dL (75-99)
[2019-04-17] MEDS: INSULIN DETEMIR (LEVEMIR) 100 UNIT/ML SYR SQ SCH (21:14)
[2019-04-17 23:52] LABS: Glucose,Whole Blood 263 mg/dL (75-99)
[2019-04-18] MEDS: FUROSEMIDE 10 MG/ML 10 ML VIAL IV SCH ×4 (00:10→23:43)
[2019-04-18] MEDS: INSULIN ASPART (NovoLOG) 100 UNIT/ML VIAL SQ SCH ×5 (00:10→22:01)
[2019-04-18 05:13] LABS: HCT 27.1 % (34.0-46.0); HGB 8.3 gm/dL (11.4-16.0); Hypochromasia Moderate; MCH 32.2 pg (25.0-35.0); MCHC 30.7 g/dL (31.0-37.0); MCV 104.6 fL (80.0-100.0); Macrocytosis Moderate; Mean Platelet Volume 7.2; Platelet Count 267 k/uL (150-450); RBC 2.59 m/uL (3.80-5.40)
[2019-04-18 05:14] LABS: Calcium 9.2 mg/dL (8.4-10.2); Magnesium 1.7 mg/dL (1.6-2.3); Potassium 3.9 mmol/L (3.5-5.1)
[2019-04-18 05:19] LABS: Vancomycin,Random 16.3 ug/mL
[2019-04-18 05:56] LABS: Band Neutrophils % 15 %; Eosinophils # (M) 0.57 k/uL (0-0.7); Lymphocytes # (M) 2.46 k/uL (1.0-4.8); Monocytes # (M) 1.89 k/uL (0-1.0); Myelocytes # (M) 1.13 k/uL (0); Myelocytes % 6 %; Neutrophils % (M) 55 %; Nucleated Red Blood Cells 1 /100 WBC (0-0); Total Cells Counted 200; WBC 18.9 k/uL (3.8-10.6)
[2019-04-18 05:57] LABS: Basophilic Stippling Present; Polychromasia Present
[2019-04-18] MEDS ORDERED: POTASSIUM CHLORIDE ER 20 MEQ TAB.ER PO SCH (06:00)
[2019-04-18] MEDS: MIDODRINE 5 MG TAB PO SCH ×3 (06:03→17:14)
[2019-04-18] MEDS: GABAPENTIN 100 MG CAP PO SCH ×2 (06:03→22:03)
[2019-04-18] MEDS: MAGNESIUM SULFATE-D5W PMX 1 GM in DEXTROSE/WATER 1 100ML.BAG IVPB SCH ×2 (06:03→08:25)
[2019-04-18 06:24] LABS: Glucose,Whole Blood 199 mg/dL (75-99)
--- NOTE | 2019-04-18 07:48 | XR ---
EXAMINATION TYPE: XR chest 1V portable DATE OF EXAM: 04/18/2019 COMPARISON: 04/17/2019 HISTORY: Shortness of breath TECHNIQUE: Single frontal view of the chest is obtained. FINDINGS: PICC line stable. There is hilar enlargement bilaterally with cardiomegaly. Underlying mas s or adenopathy or aneurysm not excluded. Bilateral consolidation pleural effusion. Diffuse interstit ial pattern. No definite pneumothorax. IMPRESSION: Correlate for CHF otherwise consider pneumonia. Bilateral hilar enlargement persists.
[2019-04-18] MEDS: BUDESONIDE 1 MG/2 ML NEBU INHALATION SCH ×2 (07:50→21:31)
[2019-04-18] MEDS: CITALOPRAM HYDROBROMIDE 20 MG TAB PO SCH (08:23)
[2019-04-18] MEDS: ASPIRIN 81 MG PO SCH (08:23)
[2019-04-18] MEDS: AMIODARONE 200 MG TAB PO SCH ×2 (08:23→22:02)
[2019-04-18] MEDS: FERROUS SULFATE 325 MG TAB PO SCH (08:23)
[2019-04-18] MEDS: METOPROLOL TARTRATE 25 MG TAB PO SCH ×2 (08:23→22:02)
[2019-04-18] MEDS: CLOPIDOGREL 75 MG TAB PO SCH (08:23)
[2019-04-18] MEDS: PANTOPRAZOLE 40 MG TABLET PO SCH (08:23)
[2019-04-18] MEDS: CEFEPIME 2 GM in SODIUM CHLORIDE 0.9% 100 ML IVPB SCH (08:24)
[2019-04-18] MEDS: CITALOPRAM HYDROBROMIDE 10 MG TAB PO SCH (09:01)
--- NOTE | 2019-04-18 10:06 | P.PN ---
Subjective Progress Note Date: 04/18/19 Principal diagnosis: Symptomatic bradycardia, hypotension and hyperkalemia This is a 74-year-old female with known history of multiple medical problems including diastolic congestive heart failure, hypertension, diabetes, coronary artery disease and previous stent placement, chronic low back pain, urinary incontinence, irritable bowel syndrome, cervical cancer and previous hyst erectomy, patient was sent to the ER last night from the [facility] [place] with complaints of shortness of breath. Patient has been complaining of shortness of breath for the last 2-3 days. She was also complaining of right mid abdominal and right flank pain. She had no chest pain, no nausea no vomiting, no fever no chills no hemoptysis. Patient was feeling extremely tired and exhausted. Upon evaluation in the ER, patient was noted to be profoundly bradycardic, heart rate ranging between 40 and 60. Blood pressure on arrival was 76/61. Patient had a right femoral triple-lumen catheter placed by the ER physician, and she had fluid boluses at least 2 L were given in the form of 0.9 normal saline. Patient was placed on dopamine for her profound bradycardia, and she is presently on dopamine at 5 mcg/kg/m. Remained hypotensive, hence norepinephrine at 0.04 mcg/kg/m was added. Maintained on IV fluid at 100 mL/h, admitted to the ICU, and this consult was initiated. I evaluated the patient in the ICU, kept her on dopamine and norepinephrine, and she was seen by nephrology on consultation last night, patient underwent stat hemodialysis mostly because of her hyperkalemia and acute kidney injury. Reevaluated today on 04/11/2019, patient remains on norepinephrine at 0.04 mcg/kg/m, blood pressure remains marginal, hence a left radial arterial line was placed. Patient is off dopamine, she is in sinus rhythm, and no further episodes of bradycardia. She is alert oriented 3, according to the nurse she had intermittent episodes of confusion, but her mental status seems to be intact this morning. Chest x-ray showed cardiomegaly and interstitial edema with bibasilar atelectasis. Electrolytes are much improved potassium is down to 5.2 BUN is 51 creatinine 2.31, no plans for dialysis today. WBC count is 16.3 hemoglobin is 9.7. Patient denies any shortness of breath, she feels generally weak. Patient was reevaluated today on 04/12/2019. Patient developed sustained ventri cular tachycardia earlier this morning, patient was shocked about 6 times, she was given lidocaine and amiodarone as per cardiology at bedside, patient was intubated, and she was taken down for a cardiac catheterization by cardiology. I reviewed the ventilator settings, and I recommended tidal volume of 500, assist control rate of 20, FiO2 of 100% and PEEP of 5. ABG is pending. Cardiac catheterization report is pending but I was informed that she had no significant coronary artery disease to speak of. Chest x-ray showed bibasilar atelectasis, possibly infiltrates, patient may have developed some component of aspiration pneumonia. Labs today showed leukocytosis with WBC count of 22.9 hemoglobin 8.3, electrolytes are normal, BUN is 43 creatinine 2.0. Cardiology October he was concerned about the possibility of non-ST segment elevation myocardial infarction. Later on patient was noted to have atrial fibrillation with poorly controlled ventricular rate. And again her cardiac catheterization official report is pending Reevaluated today on 04/13/2019, patient remains intubated, on mechanical ventilation, her ventilator settings are assist control rate of 20 and I cut it down to 16 FiO2 is 40%, and I cut it down to 35%. Tidal volume is 500 remains the same and PEEP is at 5. Patient is requiring propofol at 50 mcg/kg/m, she is on norepinephrine at 0.05 mcg/kg/m. Amiodarone drip, Cardizem drip at 5 mg per hour. She is also on heparin. Her cardiac catheterization yesterday was basically unremarkable. Hence the [employer] seems to be concerned about pulmonary embolism, clinically that is unlikely based on the clinical history, not to mention the patient has been on anticoagulation therapy all along since admission. At this point patient is not to get the CT of the chest, since the index of suspicion for pulmonary embolism is low and since her renal functioning is marginal. Would rather continue anticoagulation therapy and did not do a CT of the chest at this point. ABG today showed a pO2 of 133 pCO2 of 27 pH of 7.52 again her FiO2 was decreased down to 35%. Patient is sedated on propofol, and I plan to give the patient a sedation holiday, and hopefully assess mental status, no plans to wean and extubate at this point. Still concerned about her issue of an arrhythmia and recurrent episodes of ventricular tachycardia. Chest x-ray showed no significant interval change from before, there is vascular congestion and mild pulmonary edema with bibasilar atelectasis, doubt pneumonia Patient was reevaluated today on 04/24/2019 remains intubated, mechanically ventilated, but the settings are tidal volume of 500 assist control rate of 16 FiO2 of 35% and PEEP of 5. No ABG was done this morning, apparently her arterial line is nonfunctional. However the patient seems to be very comfortable, and she was given a weaning trial while I was at bedside. She had a relatively good weaning parameters, she had good tidal volume on pressure support of 8 and CPAP, her volume was around 450, her rate was in the high teens, and the patient was noted to be in no distress. 45 minutes on pressure support and CPAP were done, and I extubated the patient uneventfully. Chest x- ray continues to show some fluid overload, atelectasis at the bases, patient continues to be swollen and edematous, and now she is placed on Lasix drip as per nephrology. WBC count today is 25 hemoglobin is 9.3 remains on heparin with a PTT of 48.5. Electrolytes are normal, BUN is 30 creatinine is 1.42. No arrhythmias noted over the last 24 hours. And the patient is on minimal dose of norepinephrine at 0.03 mcg/kg/m. This would likely be discontinued postextubation On 04/15/2011 patient seen in follow-up in the intensive care unit, she is awake, remains very confused, at times she is calling out for help, appears to be in any acute distress, no signs of any respiratory distress, she is on 2 L of oxygen with pulse ox of 98%, she is afebrile, she remains on small amount of leukocyte at 8 mics per minute, maintenance IV fluids are 0.9 normal saline at a rate of 20 ML per hour, Lasix drip is at 10 mg per hour, and heparin per weight- based protocol. Remains in sinus rhythm on the monitor with a controlled rate, patient is receiving a combination of oral amiodarone, Lopressor, for recent history of ventricular tachycardia. No complaints of chest pain. She is rece iving midodrine for hypotension which we can increase to 10 mg 3 times daily. She remains on empiric antibiotics with Levaquin and vancomycin. There is no cough, no sputum production, blood and urine cultures have shown no growth so far. Today's labs have been reviewed, white blood cell count is trending up, 25.2 and today's labs, hemoglobin is 8.9, sodium is 132, demonstrates electrolytes were within normal limits, renal profile is relatively stable with BUN of 33 and creatinine of 1.5. Today's chest x-ray has been reviewed showing bilateral pleural effusions, cardiomegaly and bibasilar infiltrates, diffuse interstitial pattern. No fever or chills. Remains on Lasix infusion, the patie nt is only modestly in negative fluid balance, still has significant amount of fluid in his abdominal wall, and generalized anasarca. She still has a hemodialysis catheter in her left groin and his central line venous catheter in the right groin, patient has skin breakdown in the groin folds. Patient has not been able to pass a swallow evaluation, in her oral medications have been on hold and patient remains nothing by mouth until seen by speech therapy. On April 16 2019, patient is seen in follow-up in the intensive care unit, more awake and conversant on today's exam, answering simple questions, oriented to person and place, but is intermittently confused. Denies any acute distress, still mildly dyspneic with conversation, oxygenation is stable on 2 L of oxygen her pulse ox is 97%, patient has been afebrile. Hemodynamically patient has improved, and she was able to be weaned off the levo fed since yesterday. She remains on Lasix drip at 10 mg per hour, and heparin per weight-based protocol. Patient is diuresing, and she is in negative for thousand 586 mL fluid balance over the last 24 hours, Lyme status is improving, and patient is -6 kg in the last 24 hours. Today's labs have been reviewed, showing white blood cell count of 17.7, crit cytosis is improving, hemoglobin is 8.2, serum sodium is 136, the rest of electrolytes were within normal limits, renal profile is improving, with BUN 30 and creatinine is 1.3. Blood and urine culture remained negative, lung sounds are positive for end expiratory wheezing, today's chest x-ray was reviewed showing improved aeration at the right base, and improvement in the appearance of interstitial edema. Patient's hemodialysis catheter from the left groin and central line from the right coronary were removed yesterday, and patient had a PICC line inserted in the right upper extremity. On 04/17/2019 patient seen in follow-up in intensive care unit, she is lethargic on today's exam, but does open eyes and answer some simple questions, denies any acute distress, she is currently on nasal oxygen with a pulse ox of 96-98%, she's been afebrile, hemodynamically she remains stable, her levo fed has been on hold for last 48 hours, patient remains on Lasix drip at 10 mg per hour, heparin drip per weight-based protocol and 0.9 normal saline at a rate of 20 ML per hour. She is in -3115 mL fluid balance over the last 24 hours, still has quite significant generalized edema and weeping edema involving her lower extremities. Today's labs have been reviewed, showing white blood cell count of 19.1, hemoglobin of 8.3, serum sodium is 136, potassium 3.6, CO2 32, B1 is 29, creatinine is 1.25. Blood cultures and urine cultures have been negative thus far. Today's chest x-ray has been reviewed showing bilateral consolidation, pleural effusions, diffuse interstitial pattern. Patient will have her swallow evaluated again today, and has been nothing by mouth for last 3 days. On 04/18/2019 patient seen in follow-up in the intensive care unit, she is awake and alert, oriented 3, looking much more awake and alert, conversant, denies any acute distress, she states she still feels dyspneic, does not appear to be in any acute distress, she is on 2 L of oxygen with a pulse ox of 97%, she is afebrile, hemodynamically stable. 0.9 normal seen at a rate of 20 ML per hour, and heparin per weight-based protocol. Continues on IV Lasix at 60 mg every 8 hours, and patient is in -1919 and the fluid balance over the last 24 hours. Still has skin edema involving bilateral lower extremities, overall fluid volume status is improving, today's chest x-ray shows interstitial pattern, and bilateral hilar enlargement. Patient remains on cefepime and vancomycin. Objective - Vital Signs Vital signs: Vital Signs Temp 97.8 F 04/18/19 04:00 Pulse 66 04/18/19 08:02 Resp 14 02/13/20 07:00 BP 95/51 04/18/19 07:00 Pulse Ox 97 04/18/19 07:00 Intake & Output 04/17/19 04/18/19 04/18/19 18:59 06:59 18:59 Intake Total 897.435 258.543 100 Output Total 2165 910 40 Balance -1267.565 -651.457 60 Weight 165.4 kg Intake: IV 460 110 0.9 NS 60 110 Magnesium Sulfate-D5w Pmx 200 1 gm In Dextrose/Water 1 100ml.bag @ 100 mls/hr IVPB Q1H JAVIER Rx#: [id number] Potassium Chloride 10 meq 200 In Water For Injection 1 100ml.bag @ 100 mls/hr IVPB Q1H JAVIER Rx#: [id number] Intake, IV Titration 237.435 148.543 100 Amount Heparin Sod,Pork in 0.45% 237.435 148.543 NaCl 25,000 unit In 0.45 % NaCl 1 250ml.bag @ 6. 024 UNITS/KG/HR 10 mls/hr IV .Q24H JAVIER Rx#: [id number] Magnesium Sulfate-D5w Pmx 100 1 gm In Dextrose/Water 1 100ml.bag @ 100 mls/hr IVPB Q1H JAVIER Rx#: [id number] Oral 200 Output: Urine 2165 910 40 Other: Voiding Method Indwelling Catheter Indwelling Catheter ABP, PAP, CO, CI - Last Documented Arterial Blood Pressure 81/52 - Exam GENERAL EXAM: Awake 74-year-old obese white female, 2 L of oxygen with pulse ox of 96%, answers simple questions, mildly dyspneic with conversation comfortable in no apparent distress. HEAD: Normocephalic/atraumatic. EYES: Normal reaction of pupils, equal size. Conjunctiva pink, sclera white. NOSE: Clear with pink turbinates. THROAT: No erythema or exudates. NECK: No masses, no JVD, no thyroid enlargement, no adenopathy. CHEST: No chest wall deformity. Symmetrical expansion. LUNGS: Diminished air entry, no crackles, no wheezes CVS: Regular rate and rhythm, normal S1 and S2, no gallops, no murmurs, no rubs ABDOMEN: Soft, obese, with a significant amount of abdominal wall edema. No hepatosplenomegaly, normal bowel sounds, no guarding or rigidity. EXTREMITIES: No clubbing, no cyanosis, 2+ pulses and upper and lower extremities. Significant amount of upper and lower extremity edema anasarca, and edema of abdominal wall MUSCULOSKELETAL: Muscle strength and tone normal. SPINE: No scoliosis or deformity SKIN: Groin folds positive for redness, moisture and rash CENTRAL NERVOUS SYSTEM: Alert and oriented -3, tone is normal in all 4 extremities. - Labs CBC & Chem 7: 04/18/19 04:38 04/18/19 04:38 Labs: Abnormal Lab Results - Last 24 Hours (Table) 04/17/19 04/17/19 04/17/19 Range/Units 17:24 21:13 23:51 WBC (3.8-10.6) k/uL RBC (3.80-5.40) m/uL Hgb (11.4-16.0) gm/dL Hct (34.0-46.0) % MCV (80.0-100.0) fL MCHC (31.0-37.0) g/dL RDW (11.5-15.5) % Neutrophils # (Manual) (1.3-7.7) k/uL Monocytes # (Manual) (0-1.0) k/uL Myelocytes # (Manual) (0) k/uL Nucleated RBCs (0-0) /100 WBC APTT (22.0-30.0) sec Chloride (98-107) mmol/L Carbon Dioxide (22-30) mmol/L BUN (7-17) mg/dL Creatinine (0.52-1.04) mg/dL Glucose (74-99) mg/dL POC Glucose (mg/dL) 183 H 206 H 263 H (75-99) mg/dL 04/18/19 04/18/19 04/18/19 Range/Units 04:38 04:38 04:38 WBC 18.9 H (3.8-10.6) k/uL RBC 2.59 L (3.80-5.40) m/uL Hgb 8.3 L (11.4-16.0) gm/dL Hct 27.1 L (34.0-46.0) % MCV 104.6 H (80.0-100.0) fL MCHC 30.7 L (31.0-37.0) g/dL RDW 16.0 H (11.5-15.5) % Neutrophils # (Manual) 13.20 H (1.3-7.7) k/uL Monocytes # (Manual) 1.89 H (0-1.0) k/uL Myelocytes # (Manual) 1.13 H (0) k/uL Nucleated RBCs 1 H (0-0) /100 WBC APTT 80.5 H (22.0-30.0) sec Chloride 97 L (98-107) mmol/L Carbon Dioxide 37 H (22-30) mmol/L BUN 30 H (7-17) mg/dL Creatinine 1.36 H (0.52-1.04) mg/dL Glucose 199 H (74-99) mg/dL POC Glucose (mg/dL) (75-99) mg/dL 04/18/19 Range/Units 06:23 WBC (3.8-10.6) k/uL RBC (3.80-5.40) m/uL Hgb (11.4-16.0) gm/dL Hct (34.0-46.0) % MCV (80.0-100.0) fL MCHC (31.0-37.0) g/dL RDW (11.5-15.5) % Neutrophils # (Manual) (1.3-7.7) k/uL Monocytes # (Manual) (0-1.0) k/uL Myelocytes # (Manual) (0) k/uL Nucleated RBCs (0-0) /100 WBC APTT (22.0-30.0) sec Chloride (98-107) mmol/L Carbon Dioxide (22-30) mmol/L BUN (7-17) mg/dL Creatinine (0.52-1.04) mg/dL Glucose (74-99) mg/dL POC Glucose (mg/dL) 199 H (75-99) mg/dL Assessment and Plan Plan: Assessment: #1. Acute hypoxic respiratory failure secondary to ventricular tachycardia, A. fib with RVR, congestive heart failure, requiring intubation and mechanical ventilation. Patient was intubated on 04/12/2019 and successfully weaned and extubated on 04/14/2019. Patient is status post synchronized cardioversion 6 with successful conversion to sinus rhythm, cardiac catheterization did not show significant obstructive coronary artery disease #2. Acute exacerbation of congestive heart failure with preserved ventricular systolic function and EF of 50-55% #3. Symptomatic bradycardia with hypotension related to hyperkalemia on present ation, resolved #4. Acute kidney injury secondary to acute tubular necrosis and hypotension and bradycardia, improving #5. Leukocytosis, patient is empirically covered with Rocephin and vancomycin has had no fever. Urine and blood cultures have shown no growth #6. Hyperkalemia secondary to a TIA resolved #7. Insulin dependent diabetes mellitus #8. History of coronary artery disease and previous stent placement #9. Irritable bowel syndrome #10. Chronic urinary incontinence #11. History of cervical cancer previous hysterectomy #12. History of partial parathyroidectomy #13. History of benign essential hypertension #14. Chronic diastolic CHF #15. Status post cardiac catheterization no significant coronary artery disease #16. Metabolic encephalopathy Plan: Continue IV Lasix, patient is in negative fluid balance, still has significant generalized edema. Much more awake and alert, breathing is comfortable. Continue current antibiotics, continue GI and DVT prophylaxis. Patient has passed a swallow evaluation and is now on a modified diet with thickened liquids , maintain aspiration precautions, from pulmonary perspective patient is stable to transfer out of the intensive care unit today [facility]. I performed a history & physical examination of the patient and discussed their management with my nurse practitioner, Norma Avila. I reviewed the nurse practitioner's note and agree with the documented findings and plan of care. Lung sounds are positive for diminished breath sounds. The findings and the impression was discussed with the patient. I attest to the documentation by the nurse practitioner. Time with Patient: Less than 30
--- NOTE | 2019-04-18 11:36 | PN ---
PROGRESS NOTE Patient is seen for followup for acute kidney injury and hyperkalemia. She had 2 treatments of hemodialysis initially following which her renal function continued to improve. The patient is maintained on diuretics. She was on Lasix drip for quite a few days, which was discontinued yesterday. The patient continues to have good urine output. Currently maintained on IV push Lasix 60 mg q.8 hours. PHYSICAL EXAMINATION: On examination today, blood pressure was 95/51, heart rate 69 per minute. Patient is afebrile. She is undergoing swallowing test. However, she is a bit more sleepy at this point. EXAMINATION OF THE HEART: S1, S2. EXAMINATION OF THE LUNGS: Decreased breath sounds at bases. ABDOMEN: Soft. Morbidly obese. Examination of lower extremities shows edema 3+ bilaterally. HOME CARE ADMINISTRATOR exam shows patient is currently lethargic. However, she had been communicating earlier. The patient has not been moving her extremities much. LABS: Labs show sodium 138, potassium 3.9, chloride 97, BUN 30, creatinine 1.36. ASSESSMENT: 1. Acute kidney injury, acute tubular necrosis, currently significantly improved. Creatinine is down from 5.6 on initial admission to 1.3 now. 2. Severe volume overload, being diuresed slowly improving. 3. Congestive heart failure, mainly diastolic heart failure, off of Lasix drip, maintained on IV push Lasix which we will continue for now. 4. Generalized weakness. 5. Acute hypoxic respiratory failure, currently off the vent. 6. Atrial fibrillation with rapid ventricular response now with controlled ventricular response. 7. Severe hyperkalemia on initial admission, now resolved. 8. Cardiac dysrhythmia/ventricular tachycardia, status post cardioversion and cardiac cath with no evidence of significant disease requiring intervention. PLAN: Continue with IV Lasix. Monitor electrolytes. Repeat labs in a.m. MMODL / IJN: [id number] /
[2019-04-18 11:53] LABS: Glucose,Whole Blood 230 mg/dL (75-99)
[2019-04-18] MEDS ORDERED: VANCOMYCIN 2,250 MG in SODIUM CHLORIDE 0.9% 500 ML 500 ML IVPB ONE (12:00)
--- NOTE | 2019-04-18 12:27 | PN ---
PROGRESS NOTE Carla is a 74-year-old lady with history of coronary artery disease, morbid obesity, and congestive heart failure, who was admitted to hospital with an episode of bradycardia secondary to hyperkalemia. She went into renal failure, had to be dialyzed and this has improved. She is in the intensive care unit and has made significant progress. She is currently on IV heparin for the atrial fibrillation and she is getting IV Lasix. She looks more alert today. No longer on pressors. PHYSICAL EXAMINATION: On exam, heart rate is 68 beats per minute. Blood pressure is 98/50. Respiratory rate is 18. Chest exam reveals diminished air entry at the bases. Heart exam reveals first and second heart sounds, irregular rhythm. Examination of the extremities reveals bilateral ankle edema, this has improved. LABS: Labs show a hemoglobin of 8.3, platelet count of 267. Potassium is 3.9. BUN is 30, creatinine is 1.36. ASSESSMENT: 1. Paroxysmal atrial fibrillation. 2. Respiratory failure. 3. Chronic congestive heart failure. 4. Acute on chronic renal failure. PLAN: The patient will continue with IV Lasix, ready to be transferred to [facility]. MMODL / IJN: [id number] /
[2019-04-18 16:44] LABS: Glucose,Whole Blood 214 mg/dL (75-99)
--- NOTE | 2019-04-18 17:51 | PN ---
PROGRESS NOTE DATE OF SERVICE: 04/18/2019 REASON FOR FOLLOWUP: Leukocytosis. INTERVAL HISTORY: The patient is currently afebrile. The patient has been breathing comfortably. The patient denies having any chest pain or any cough. No vomiting or any diarrhea. PHYSICAL EXAMINATION: Blood pressure 100/48 with a pulse of 58, temperature 97.9. She is 94% on 2 L nasal cannula. General description is an elderly female lying in bed in no distress. RESPIRATORY SYSTEM: Unlabored breathing. Clear to auscultation anteriorly. HEART: S1, S2. Regular rate and rhythm. ABDOMEN: Soft. No tenderness. LABS: White count slightly decreased to 18.9. Hemoglobin 8.3, creatinine 1.36. DIAGNOSTIC IMPRESSION AND PLAN: Patient with leukocytosis which is likely multifactorial pneumonia/UTI versus abdominal source. Patient's white count is minimally improved. We will add Diflucan and repeat CBC tomorrow and continue with supportive care. MMODL / IJN: [id number] /
[2019-04-18 21:45] LABS: Glucose,Whole Blood 182 mg/dL (75-99)
[2019-04-18] MEDS: CHOLECALCIFEROL 1,000 UNIT TAB PO SCH (22:01)
[2019-04-18] MEDS: INSULIN DETEMIR (LEVEMIR) 100 UNIT/ML SYR SQ SCH (22:01)
[2019-04-18] MEDS: ATORVASTATIN 40 MG TAB PO SCH (22:03)
[2019-04-18] MEDS: APIXABAN 5 MG TAB PO SCH (22:03)
[2019-04-18] MEDS: ARIPiprazole 5 MG TAB PO SCH (23:43)
[2019-04-18] MEDS: NYSTATIN 100,000 UNIT/ML SUSP 500,000 UNIT/5 ML CUP PO SCH ×2 (23:43→23:50)
--- NOTE | 2019-04-19 05:34 | DS ---
DISCHARGE SUMMARY Please add to the discharge summary: Acute on chronic blood-loss anemia. Suspected cardiogenic shock. MMODL / IJN: [id number] /
[2019-04-19 06:16] LABS: HCT 27.3 % (34.0-46.0); HGB 8.3 gm/dL (11.4-16.0); Hypochromasia Marked; MCH 32.4 pg (25.0-35.0); MCHC 30.4 g/dL (31.0-37.0); MCV 106.3 fL (80.0-100.0); Macrocytosis Moderate; Mean Platelet Volume 7.4; Platelet Count 279 k/uL (150-450); RBC 2.56 m/uL (3.80-5.40); RDW 15.8 % (11.5-15.5); WBC 18.5 k/uL (3.8-10.6)
[2019-04-19] MEDS: GABAPENTIN 100 MG CAP PO SCH ×2 (06:24→21:56)
[2019-04-19 06:25] LABS: Calcium 8.8 mg/dL (8.4-10.2); Potassium 4.4 mmol/L (3.5-5.1)
[2019-04-19 06:36] LABS: Band Neutrophils % 10 %; Eosinophils # (M) 0.19 k/uL (0-0.7); Lymphocytes # (M) 2.04 k/uL (1.0-4.8); Metamyelocytes # (M) 3.52 k/uL (0); Metamyelocytes % 19 %; Monocytes # (M) 0.93 k/uL (0-1.0); Myelocytes # (M) 0.74 k/uL (0); Myelocytes % 4 %; Neutrophils % (M) 50 %; Nucleated Red Blood Cells 0 /100 WBC (0-0); Total Cells Counted 100
[2019-04-19 06:39] LABS: Polychromasia Present; Toxic Granulation Present
[2019-04-19 06:40] LABS: Basophilic Stippling Present
[2019-04-19 07:01] LABS: Glucose,Whole Blood 185 mg/dL (75-99)
[2019-04-19] MEDS: INSULIN ASPART (NovoLOG) 100 UNIT/ML VIAL SQ SCH ×4 (07:14→21:49)
--- NOTE | 2019-04-19 07:19 | PN ---
PROGRESS NOTE This 74-year-old white female with bradycardia, hyperkalemia, progressive nausea, vomiting, which is improved. She passed a swallow eval, is eating yogurt and applesauce. Potassium 3.9 today. She has been weaned off her drips, possible sent out of the ICU tonight. ENDOCRINE: BMI is below 50. CARDIOVASCULAR: S1, S2. Lungs are clear. GI is soft, distended due to obesity. ASSESSMENT: 1. Bradycardia. 2. Hyperkalemia. 3. Ventricular tachycardia. 4. Chronic obstructive pulmonary disease. 5. Diastolic heart failure. 6. Tinea . All improving. Continue PT OT. Increase diet. Wean off IV meds, possible back to the rehab center in the next few days. TYLER / LILLIANN: [id number] /
[2019-04-19] MEDS: BUDESONIDE 1 MG/2 ML NEBU INHALATION SCH ×2 (07:59→20:34)
--- NOTE | 2019-04-19 08:06 | P.PN ---
Subjective Patient is seen in follow-up for acute kidney injury. She has undergone 2 treatments of hemodialysis so far. Last treatment was April 10. Dialysis catheter has been discontinued. Currently resting in bed. She is maintained on IV Lasix 60 mg 3 times daily. Urine output about 30 mL an hour. She is on thickened liquid diet and is not eating much. Vital signs are stable - currently on Levophed. General: The patient appeared well nourished and normally developed. HEENT: Head exam is unremarkable. Neck is without jugular venous distension. LUNGS: Lungs are clear to auscultation and percussion. Breath sounds decreased. HEART: Rate and Rhythm are regular. First and second heart sounds normal. No murmurs, rubs or gallops. ABDOMEN: Abdominal exam reveals normal bowel sounds. Obese. EXTREMITITES: 2+ edema. Objective - Vital Signs Vital signs: Vital Signs Temp 97.8 F 04/19/19 04:00 Pulse 57 L 04/19/19 07:59 Resp 21 04/19/19 06:00 BP 92/38 04/19/19 06:00 Pulse Ox 97 04/19/19 06:00 Intake & Output 04/18/19 04/19/19 04/19/19 18:59 06:59 18:59 Intake Total 1170 338 30 Output Total 580 435 90 Balance 590 -97 -60 Weight 165.4 kg 163.8 kg Intake: IV 90 120 30 0.9 NS 90 120 30 Intake, IV Titration 600 Amount Magnesium Sulfate-D5w Pmx 100 1 gm In Dextrose/Water 1 100ml.bag @ 100 mls/hr IVPB Q1H ON LICENSE OF [facility] Rx#: [id number] Vancomycin 2,250 mg In 500 Sodium Chloride 0.9% 500 ml 500 ml @ 167 mls/hr IVPB ONCE ONE Rx#: [id number] Oral 480 218 Output: Urine 580 435 90 Other: Voiding Method Indwelling Catheter Indwelling Catheter # Bowel Movements 1 ABP, PAP, CO, CI - Last Documented Arterial Blood Pressure 81/52 - Labs CBC & Chem 7: 04/19/19 06:08 04/19/19 06:08 Labs: Abnormal Lab Results - Last 24 Hours (Table) 04/18/19 04/18/19 04/18/19 Range/Units 11:52 16:43 21:44 WBC (3.8-10.6) k/uL RBC (3.80-5.40) m/uL Hgb (11.4-16.0) gm/dL Hct (34.0-46.0) % MCV (80.0-100.0) fL MCHC (31.0-37.0) g/dL RDW (11.5-15.5) % Neutrophils # (Manual) (1.3-7.7) k/uL Metamyelocytes # (Man) (0) k/uL Myelocytes # (Manual) (0) k/uL BUN (7-17) mg/dL Creatinine (0.52-1.04) mg/dL Glucose (74-99) mg/dL POC Glucose (mg/dL) 230 H 214 H 182 H (75-99) mg/dL 04/19/19 04/19/19 04/19/19 Range/Units 06:08 06:08 07:00 WBC 18.5 H (3.8-10.6) k/uL RBC 2.56 L (3.80-5.40) m/uL Hgb 8.3 L (11.4-16.0) gm/dL Hct 27.3 L (34.0-46.0) % MCV 106.3 H (80.0-100.0) fL MCHC 30.4 L (31.0-37.0) g/dL RDW 15.8 H (11.5-15.5) % Neutrophils # (Manual) 11.10 H (1.3-7.7) k/uL Metamyelocytes # (Man) 3.52 H (0) k/uL Myelocytes # (Manual) 0.74 H (0) k/uL BUN 33 H (7-17) mg/dL Creatinine 1.20 H (0.52-1.04) mg/dL Glucose 171 H (74-99) mg/dL POC Glucose (mg/dL) 185 H (75-99) mg/dL Assessment and Plan Plan: Assessment: 1. Acute kidney injury secondary to ATN secondary to hypotension and bradycardia. Creatinine 5.6 on admission. Baseline near 1. No proteinuria on UA. Kidney ultrasound revealed small left kidney without any hydronephrosis. Renal function is improved. Creatinine 1.2 today. 2. Hyperkalemia secondary to acute kidney injury and further worsened with the use of lisinopril. Improved postdialysis. 3. Hyponatremia secondary to acute kidney injury. Resolved. 4. Insulin-dependent diabetes mellitus. 5. Hypotension, off Levophed. 6. Bradycardia secondary to hyperkalemia s/p dopamine. Cardiology following. 7. Volume overload. 8. Metabolic acidosis secondary to acute kidney injury. Resolved. Plan: Maintain IV Lasix 60 mg 3 times daily. Continue to monitor renal function and urine output. Check albumin level today. If less than 3, I will give her 2 doses of 25 g of IV albumin today. Repeat electrolytes in the morning.
--- NOTE | 2019-04-19 08:59 | P.PN ---
Subjective Progress Note Date: 04/19/19 This is a 74-year-old female with history of coronary artery disease, obesity, and congestive heart failure who was admitted to the hospital with the bradycardia secondary to hypo-kalemia. Patient also went into renal failure and has been dialysis. Patient is currently in sinus rhythm and sinus bradycardia. She is on Lopressor 25 mg by mouth twice a day and I'm going Back the dose to 12.5 mg by mouth twice daily. She is on oral anticoagulant at this time. Patient is generally feeling weak and tired. Denied any chest pain or shortness of breath. She is off pressors Objective - Vital Signs Vital signs: Vital Signs Temp 97.8 F 04/19/19 04:00 Pulse 56 L 04/19/19 08:05 Resp 21 04/19/19 06:00 BP 92/38 04/19/19 06:00 Pulse Ox 97 04/19/19 06:00 Intake & Output 04/18/19 04/19/19 04/19/19 18:59 06:59 18:59 Intake Total 1170 338 30 Output Total 580 435 90 Balance 590 -97 -60 Weight 165.4 kg 163.8 kg Intake: IV 90 120 30 0.9 NS 90 120 30 Intake, IV Titration 600 Amount Magnesium Sulfate-D5w Pmx 100 1 gm In Dextrose/Water 1 100ml.bag @ 100 mls/hr IVPB Q1H [facility] Rx#: [id number] Vancomycin 2,250 mg In 500 Sodium Chloride 0.9% 500 ml 500 ml @ 167 mls/hr IVPB ONCE ONE Rx#: [id number] Oral 480 218 Output: Urine 580 435 90 Other: Voiding Method Indwelling Catheter Indwelling Catheter # Bowel Movements 1 ABP, PAP, CO, CI - Last Documented Arterial Blood Pressure 81/52 - Exam GENERAL EXAM: Patient is alert and oriented and doesn't appear to be in any acute distress. Appears to be weak and frail HEENT: Normocephalic. Normal reaction of pupils, equal size, normal range of extraocular motion. No erythema or exudates in the throat. NECK: No masses, no nuchal rigidity. CHEST: No chest wall deformity. LUNGS: Diminished breath sounds at bases HEART: S1 and S2 normal. Distant heart sounds ABDOMEN: Soft SKIN: No rashes CENTRAL NERVOUS SYSTEM: No focal deficits. EXTREMITIES: No cyanosis, clubbing - Labs CBC & Chem 7: 04/19/19 06:08 04/19/19 06:08 Labs: Abnormal Lab Results - Last 24 Hours (Table) 04/18/19 04/18/19 04/18/19 Range/Units 11:52 16:43 21:44 WBC (3.8-10.6) k/uL RBC (3.80-5.40) m/uL Hgb (11.4-16.0) gm/dL Hct (34.0-46.0) % MCV (80.0-100.0) fL MCHC (31.0-37.0) g/dL RDW (11.5-15.5) % Neutrophils # (Manual) (1.3-7.7) k/uL Metamyelocytes # (Man) (0) k/uL Myelocytes # (Manual) (0) k/uL BUN (7-17) mg/dL Creatinine (0.52-1.04) mg/dL Glucose (74-99) mg/dL POC Glucose (mg/dL) 230 H 214 H 182 H (75-99) mg/dL Albumin (3.5-5.0) g/dL 04/19/19 04/19/19 04/19/19 Range/Units 06:08 06:08 06:08 WBC 18.5 H (3.8-10.6) k/uL RBC 2.56 L (3.80-5.40) m/uL Hgb 8.3 L (11.4-16.0) gm/dL Hct 27.3 L (34.0-46.0) % MCV 106.3 H (80.0-100.0) fL MCHC 30.4 L (31.0-37.0) g/dL RDW 15.8 H (11.5-15.5) % Neutrophils # (Manual) 11.10 H (1.3-7.7) k/uL Metamyelocytes # (Man) 3.52 H (0) k/uL Myelocytes # (Manual) 0.74 H (0) k/uL BUN 33 H (7-17) mg/dL Creatinine 1.20 H (0.52-1.04) mg/dL Glucose 171 H (74-99) mg/dL POC Glucose (mg/dL) (75-99) mg/dL Albumin 2.4 L (3.5-5.0) g/dL 04/19/19 Range/Units 07:00 WBC (3.8-10.6) k/uL RBC (3.80-5.40) m/uL Hgb (11.4-16.0) gm/dL Hct (34.0-46.0) % MCV (80.0-100.0) fL MCHC (31.0-37.0) g/dL RDW (11.5-15.5) % Neutrophils # (Manual) (1.3-7.7) k/uL Metamyelocytes # (Man) (0) k/uL Myelocytes # (Manual) (0) k/uL BUN (7-17) mg/dL Creatinine (0.52-1.04) mg/dL Glucose (74-99) mg/dL POC Glucose (mg/dL) 185 H (75-99) mg/dL Albumin (3.5-5.0) g/dL Assessment and Plan (1) Bradycardia Current Visit: Yes Status: Acute Code(s): R00.1 - BRADYCARDIA, UNSPECIFIED SNOMED Code(s): 69265205 (2) Hyperkalemia Current Visit: Yes Status: Acute Code(s): E87.5 - HYPERKALEMIA SNOMED Code(s): 22050678 (3) Acute on chronic renal failure Current Visit: No Status: Acute Code(s): N17.9 - ACUTE KIDNEY FAILURE, UNSPECIFIED; N18.9 - CHRONIC KIDNEY DISEASE, UNSPECIFIED SNOMED Code(s): 533388259 (4) CHF (congestive heart failure) Current Visit: No Status: Acute Code(s): I50.9 - HEART FAILURE, UNSPECIFIED SNOMED Code(s): 61130524 Plan: Continue current medical therapy with beta blockers and anticoagulation therapy. Femoral cut back the dose of the Lopressor to 12.5 mg by mouth twice a day.
[2019-04-19] MEDS: AMIODARONE 200 MG TAB PO SCH ×2 (09:50→21:55)
[2019-04-19] MEDS: FUROSEMIDE 10 MG/ML 10 ML VIAL IV SCH ×3 (09:50→23:51)
[2019-04-19] MEDS: APIXABAN 5 MG TAB PO SCH ×2 (09:50→21:55)
[2019-04-19] MEDS: ASPIRIN 81 MG PO SCH (09:50)
[2019-04-19] MEDS: MIDODRINE 5 MG TAB PO SCH ×3 (09:50→17:37)
[2019-04-19] MEDS: METOPROLOL TARTRATE 12.5 MG TAB PO SCH ×2 (09:51→21:56)
[2019-04-19] MEDS: CEFEPIME 2 GM in SODIUM CHLORIDE 0.9% 100 ML IVPB SCH (09:51)
[2019-04-19] MEDS: FERROUS SULFATE 325 MG TAB PO SCH (09:51)
[2019-04-19] MEDS: CITALOPRAM HYDROBROMIDE 20 MG TAB PO SCH (09:51)
[2019-04-19] MEDS: PANTOPRAZOLE 40 MG TABLET PO SCH (09:51)
[2019-04-19] MEDS: CITALOPRAM HYDROBROMIDE 10 MG TAB PO SCH (09:51)
[2019-04-19] MEDS: NYSTATIN 100,000 UNIT/ML SUSP 500,000 UNIT/5 ML CUP PO SCH ×4 (09:51→22:04)
[2019-04-19] MEDS ORDERED: ALBUMIN HUMAN 25% 50 ML in EMPTY BAG 1 BAG IVPB ONE ×2 (10:00→21:00)
--- NOTE | 2019-04-19 10:17 | P.PN ---
Subjective Progress Note Date: 04/19/19 Principal diagnosis: Symptomatic bradycardia, hypotension and hyperkalemia This is a 74-year-old female with known history of multiple medical problems including diastolic congestive heart failure, hypertension, diabetes, coronary artery disease and previous stent placement, chronic low back pain, urinary incontinence, irritable bowel syndrome, cervical cancer and previous hyst erectomy, patient was sent to the ER last night from the [facility] [place] with complaints of shortness of breath. Patient has been complaining of shortness of breath for the last 2-3 days. She was also complaining of right mid abdominal and right flank pain. She had no chest pain, no nausea no vomiting, no fever no chills no hemoptysis. Patient was feeling extremely tired and exhausted. Upon evaluation in the ER, patient was noted to be profoundly bradycardic, heart rate ranging between 40 and 60. Blood pressure on arrival was 76/61. Patient had a right femoral triple-lumen catheter placed by the ER physician, and she had fluid boluses at least 2 L were given in the form of 0.9 normal saline. Patient was placed on dopamine for her profound bradycardia, and she is presently on dopamine at 5 mcg/kg/m. Remained hypotensive, hence norepinephrine at 0.04 mcg/kg/m was added. Maintained on IV fluid at 100 mL/h, admitted to the ICU, and this consult was initiated. I evaluated the patient in the ICU, kept her on dopamine and norepinephrine, and she was seen by nephrology on consultation last night, patient underwent stat hemodialysis mostly because of her hyperkalemia and acute kidney injury. Reevaluated today on 04/11/2019, patient remains on norepinephrine at 0.04 mcg/kg/m, blood pressure remains marginal, hence a left radial arterial line was placed. Patient is off dopamine, she is in sinus rhythm, and no further episodes of bradycardia. She is alert oriented 3, according to the nurse she had intermittent episodes of confusion, but her mental status seems to be intact this morning. Chest x-ray showed cardiomegaly and interstitial edema with bibasilar atelectasis. Electrolytes are much improved potassium is down to 5.2 BUN is 51 creatinine 2.31, no plans for dialysis today. WBC count is 16.3 hemoglobin is 9.7. Patient denies any shortness of breath, she feels generally weak. Patient was reevaluated today on 04/12/2019. Patient developed sustained ventri cular tachycardia earlier this morning, patient was shocked about 6 times, she was given lidocaine and amiodarone as per cardiology at bedside, patient was intubated, and she was taken down for a cardiac catheterization by cardiology. I reviewed the ventilator settings, and I recommended tidal volume of 500, assist control rate of 20, FiO2 of 100% and PEEP of 5. ABG is pending. Cardiac catheterization report is pending but I was informed that she had no significant coronary artery disease to speak of. Chest x-ray showed bibasilar atelectasis, possibly infiltrates, patient may have developed some component of aspiration pneumonia. Labs today showed leukocytosis with WBC count of 22.9 hemoglobin 8.3, electrolytes are normal, BUN is 43 creatinine 2.0. Cardiology October he was concerned about the possibility of non-ST segment elevation myocardial infarction. Later on patient was noted to have atrial fibrillation with poorly controlled ventricular rate. And again her cardiac catheterization official report is pending Reevaluated today on 04/13/2019, patient remains intubated, on mechanical ventilation, her ventilator settings are assist control rate of 20 and I cut it down to 16 FiO2 is 40%, and I cut it down to 35%. Tidal volume is 500 remains the same and PEEP is at 5. Patient is requiring propofol at 50 mcg/kg/m, she is on norepinephrine at 0.05 mcg/kg/m. Amiodarone drip, Cardizem drip at 5 mg per hour. She is also on heparin. Her cardiac catheterization yesterday was basically unremarkable. Hence the industrial servicer seems to be concerned about pulmonary embolism, clinically that is unlikely based on the clinical history, not to mention the patient has been on anticoagulation therapy all along since admission. At this point patient is not to get the CT of the chest, since the index of suspicion for pulmonary embolism is low and since her renal functioning is marginal. Would rather continue anticoagulation therapy and did not do a CT of the chest at this point. ABG today showed a pO2 of 133 pCO2 of 27 pH of 7.52 again her FiO2 was decreased down to 35%. Patient is sedated on propofol, and I plan to give the patient a sedation holiday, and hopefully assess mental status, no plans to wean and extubate at this point. Still concerned about her issue of an arrhythmia and recurrent episodes of ventricular tachycardia. Chest x-ray showed no significant interval change from before, there is vascular congestion and mild pulmonary edema with bibasilar atelectasis, doubt pneumonia Patient was reevaluated today on 04/24/2019 remains intubated, mechanically ventilated, but the settings are tidal volume of 500 assist control rate of 16 FiO2 of 35% and PEEP of 5. No ABG was done this morning, apparently her arterial line is nonfunctional. However the patient seems to be very comfortable, and she was given a weaning trial while I was at bedside. She had a relatively good weaning parameters, she had good tidal volume on pressure support of 8 and CPAP, her volume was around 450, her rate was in the high teens, and the patient was noted to be in no distress. 45 minutes on pressure support and CPAP were done, and I extubated the patient uneventfully. Chest x- ray continues to show some fluid overload, atelectasis at the bases, patient continues to be swollen and edematous, and now she is placed on Lasix drip as per nephrology. WBC count today is 25 hemoglobin is 9.3 remains on heparin with a PTT of 48.5. Electrolytes are normal, BUN is 30 creatinine is 1.42. No arrhythmias noted over the last 24 hours. And the patient is on minimal dose of norepinephrine at 0.03 mcg/kg/m. This would likely be discontinued postextubation On 04/15/2011 patient seen in follow-up in the intensive care unit, she is awake, remains very confused, at times she is calling out for help, appears to be in any acute distress, no signs of any respiratory distress, she is on 2 L of oxygen with pulse ox of 98%, she is afebrile, she remains on small amount of leukocyte at 8 mics per minute, maintenance IV fluids are 0.9 normal saline at a rate of 20 ML per hour, Lasix drip is at 10 mg per hour, and heparin per weight- based protocol. Remains in sinus rhythm on the monitor with a controlled rate, patient is receiving a combination of oral amiodarone, Lopressor, for recent history of ventricular tachycardia. No complaints of chest pain. She is rece iving midodrine for hypotension which we can increase to 10 mg 3 times daily. She remains on empiric antibiotics with Levaquin and vancomycin. There is no cough, no sputum production, blood and urine cultures have shown no growth so far. Today's labs have been reviewed, white blood cell count is trending up, 25.2 and today's labs, hemoglobin is 8.9, sodium is 132, demonstrates electrolytes were within normal limits, renal profile is relatively stable with BUN of 33 and creatinine of 1.5. Today's chest x-ray has been reviewed showing bilateral pleural effusions, cardiomegaly and bibasilar infiltrates, diffuse interstitial pattern. No fever or chills. Remains on Lasix infusion, the patie nt is only modestly in negative fluid balance, still has significant amount of fluid in his abdominal wall, and generalized anasarca. She still has a hemodialysis catheter in her left groin and his central line venous catheter in the right groin, patient has skin breakdown in the groin folds. Patient has not been able to pass a swallow evaluation, in her oral medications have been on hold and patient remains nothing by mouth until seen by speech therapy. On April 16 2019, patient is seen in follow-up in the intensive care unit, more awake and conversant on today's exam, answering simple questions, oriented to person and place, but is intermittently confused. Denies any acute distress, still mildly dyspneic with conversation, oxygenation is stable on 2 L of oxygen her pulse ox is 97%, patient has been afebrile. Hemodynamically patient has improved, and she was able to be weaned off the levo fed since yesterday. She remains on Lasix drip at 10 mg per hour, and heparin per weight-based protocol. Patient is diuresing, and she is in negative for thousand 586 mL fluid balance over the last 24 hours, Lyme status is improving, and patient is -6 kg in the last 24 hours. Today's labs have been reviewed, showing white blood cell count of 17.7, crit cytosis is improving, hemoglobin is 8.2, serum sodium is 136, the rest of electrolytes were within normal limits, renal profile is improving, with BUN 30 and creatinine is 1.3. Blood and urine culture remained negative, lung sounds are positive for end expiratory wheezing, today's chest x-ray was reviewed showing improved aeration at the right base, and improvement in the appearance of interstitial edema. Patient's hemodialysis catheter from the left groin and central line from the right coronary were removed yesterday, and patient had a PICC line inserted in the right upper extremity. On 04/17/2019 patient seen in follow-up in intensive care unit, she is lethargic on today's exam, but does open eyes and answer some simple questions, denies any acute distress, she is currently on nasal oxygen with a pulse ox of 96-98%, she's been afebrile, hemodynamically she remains stable, her levo fed has been on hold for last 48 hours, patient remains on Lasix drip at 10 mg per hour, heparin drip per weight-based protocol and 0.9 normal saline at a rate of 20 ML per hour. She is in -3115 mL fluid balance over the last 24 hours, still has quite significant generalized edema and weeping edema involving her lower extremities. Today's labs have been reviewed, showing white blood cell count of 19.1, hemoglobin of 8.3, serum sodium is 136, potassium 3.6, CO2 32, B1 is 29, creatinine is 1.25. Blood cultures and urine cultures have been negative thus far. Today's chest x-ray has been reviewed showing bilateral consolidation, pleural effusions, diffuse interstitial pattern. Patient will have her swallow evaluated again today, and has been nothing by mouth for last 3 days. On 04/18/2019 patient seen in follow-up in the intensive care unit, she is awake and alert, oriented 3, looking much more awake and alert, conversant, denies any acute distress, she states she still feels dyspneic, does not appear to be in any acute distress, she is on 2 L of oxygen with a pulse ox of 97%, she is afebrile, hemodynamically stable. 0.9 normal seen at a rate of 20 ML per hour, and heparin per weight-based protocol. Continues on IV Lasix at 60 mg every 8 hours, and patient is in -1919 and the fluid balance over the last 24 hours. Still has skin edema involving bilateral lower extremities, overall fluid volume status is improving, today's chest x-ray shows interstitial pattern, and bilateral hilar enlargement. Patient remains on cefepime and vancomycin. On 04/19/2019 patient seen in follow-up in the intensive care unit. She still states that she feels dyspneic, but no signs of any respiratory distress, patien t is on 2 L of oxygen the pulse ox of 97%, afebrile. Remains on Lasix 60 mg every 8 hours, she has been +493 and the fluid was over last 24 hours, however her weight is trending down, she is in -1.6 kg over the last 24 hours. Still has significant lower extremity edema. No new chest x-ray today. Today's labs have been reviewed, showing white blood cell count of 18.5, hemoglobin of 8.3, platelet count is 279, electrolytes are within normal limits, B1 is 37, and creatinine of 1.2. Vitamin level is 2.4, and patient will receive albumin infusions twice daily. Continues on modified diet. No nausea, no vomiting, no diarrhea. On antibiotics, and her cultures including blood and urine cultures are negative. No cough or congestion. Patient is on normal saline at a rate of 10 ML per hour, no other drips. Objective - Vital Signs Vital signs: Vital Signs Temp 97.8 F 04/19/19 04:00 Pulse 56 L 04/19/19 08:05 Resp 21 04/19/19 06:00 BP 92/38 04/19/19 06:00 Pulse Ox 97 04/19/19 06:00 Intake & Output 04/18/19 04/19/19 04/19/19 18:59 06:59 18:59 Intake Total 1170 338 30 Output Total 580 435 90 Balance 590 -97 -60 Weight 165.4 kg 163.8 kg Intake: IV 90 120 30 0.9 NS 90 120 30 Intake, IV Titration 600 Amount Magnesium Sulfate-D5w Pmx 100 1 gm In Dextrose/Water 1 100ml.bag @ 100 mls/hr IVPB Q1H [facility] Rx#: [id number] Vancomycin 2,250 mg In 500 Sodium Chloride 0.9% 500 ml 500 ml @ 167 mls/hr IVPB ONCE ONE Rx#: [id number] Oral 480 218 Output: Urine 580 435 90 Other: Voiding Method Indwelling Catheter Indwelling Catheter # Bowel Movements 1 ABP, PAP, CO, CI - Last Documented Arterial Blood Pressure 81/52 - Exam GENERAL EXAM: Awake 74-year-old obese white female, 2 L of oxygen with pulse ox of 96%, answers simple questions, mildly dyspneic with conversation comfortable in no apparent distress. HEAD: Normocephalic/atraumatic. EYES: Normal reaction of pupils, equal size. Conjunctiva pink, sclera white. NOSE: Clear with pink turbinates. THROAT: No erythema or exudates. NECK: No masses, no JVD, no thyroid enlargement, no adenopathy. CHEST: No chest wall deformity. Symmetrical expansion. LUNGS: Diminished air entry, no crackles, no wheezes CVS: Regular rate and rhythm, normal S1 and S2, no gallops, no murmurs, no rubs ABDOMEN: Soft, obese, with a significant amount of abdominal wall edema. No hepatosplenomegaly, normal bowel sounds, no guarding or rigidity. EXTREMITIES: No clubbing, no cyanosis, 2+ pulses and upper and lower extremities. Significant amount of upper and lower extremity edema anasarca, and edema of abdominal wall MUSCULOSKELETAL: Muscle strength and tone normal. SPINE: No scoliosis or deformity SKIN: Groin folds positive for redness, moisture and rash CENTRAL NERVOUS SYSTEM: Alert and oriented -3, tone is normal in all 4 extremities. - Labs CBC & Chem 7: 04/19/19 06:08 04/19/19 06:08 Labs: Abnormal Lab Results - Last 24 Hours (Table) 04/18/19 04/18/19 04/18/19 Range/Units 11:52 16:43 21:44 WBC (3.8-10.6) k/uL RBC (3.80-5.40) m/uL Hgb (11.4-16.0) gm/dL Hct (34.0-46.0) % MCV (80.0-100.0) fL MCHC (31.0-37.0) g/dL RDW (11.5-15.5) % Neutrophils # (Manual) (1.3-7.7) k/uL Metamyelocytes # (Man) (0) k/uL Myelocytes # (Manual) (0) k/uL BUN (7-17) mg/dL Creatinine (0.52-1.04) mg/dL Glucose (74-99) mg/dL POC Glucose (mg/dL) 230 H 214 H 182 H (75-99) mg/dL Albumin (3.5-5.0) g/dL 04/19/19 04/19/19 04/19/19 Range/Units 06:08 06:08 06:08 WBC 18.5 H (3.8-10.6) k/uL RBC 2.56 L (3.80-5.40) m/uL Hgb 8.3 L (11.4-16.0) gm/dL Hct 27.3 L (34.0-46.0) % MCV 106.3 H (80.0-100.0) fL MCHC 30.4 L (31.0-37.0) g/dL RDW 15.8 H (11.5-15.5) % Neutrophils # (Manual) 11.10 H (1.3-7.7) k/uL Metamyelocytes # (Man) 3.52 H (0) k/uL Myelocytes # (Manual) 0.74 H (0) k/uL BUN 33 H (7-17) mg/dL Creatinine 1.20 H (0.52-1.04) mg/dL Glucose 171 H (74-99) mg/dL POC Glucose (mg/dL) (75-99) mg/dL Albumin 2.4 L (3.5-5.0) g/dL 04/19/19 Range/Units 07:00 WBC (3.8-10.6) k/uL RBC (3.80-5.40) m/uL Hgb (11.4-16.0) gm/dL Hct (34.0-46.0) % MCV (80.0-100.0) fL MCHC (31.0-37.0) g/dL RDW (11.5-15.5) % Neutrophils # (Manual) (1.3-7.7) k/uL Metamyelocytes # (Man) (0) k/uL Myelocytes # (Manual) (0) k/uL BUN (7-17) mg/dL Creatinine (0.52-1.04) mg/dL Glucose (74-99) mg/dL POC Glucose (mg/dL) 185 H (75-99) mg/dL Albumin (3.5-5.0) g/dL Assessment and Plan Plan: Assessment: #1. Acute hypoxic respiratory failure secondary to ventricular tachycardia, A. fib with RVR, congestive heart failure, requiring intubation and mechanical ventilation. Patient was intubated on 04/12/2019 and successfully weaned and extubated on 04/14/2019. Patient is status post synchronized cardioversion 6 with successful conversion to sinus rhythm, cardiac catheterization did not show significant obstructive coronary artery disease #2. Acute exacerbation of congestive heart failure with preserved ventricular systolic function and EF of 50-55% #3. Symptomatic bradycardia with hypotension related to hyperkalemia on presentation, resolved #4. Acute kidney injury secondary to acute tubular necrosis and hypotension and bradycardia, improving #5. Leukocytosis, patient is empirically covered with Rocephin and vancomycin has had no fever. Urine and blood cultures have shown no growth #6. Hyperkalemia secondary to a TIA resolved #7. Insulin dependent diabetes mellitus #8. History of coronary artery disease and previous stent placement #9. Irritable bowel syndrome #10. Chronic urinary incontinence #11. History of cervical cancer previous hysterectomy #12. History of partial parathyroidectomy #13. History of benign essential hypertension #14. Chronic diastolic CHF #15. Status post cardiac catheterization no significant coronary artery disease #16. Metabolic encephalopathy Plan: Continue IV diuretics, continue antibiotics, but no sinus stable, hemodynamically stable, no acute issues overnight, wean FiO2, increase to breathing and coughing, consult physical therapy for rehabilitation. Patient is chronically bedbound normally. No arrhythmias overnight, remains in sinus mechanism, no acute issues overnight, patient is awaiting a bed on selective care unit, patient's CODE STATUS have to be clarified, family does not want CPR, does want intubation and mechanical ventilation if need be. Will continue to follow I performed a history & physical examination of the patient and discussed their management with my nurse practitioner, Norma Avila. I reviewed the nurse practitioner's note and agree with the documented findings and plan of care. Lung sounds are positive for diminished breath sounds. The findings and the impression was discussed with the patient. I attest to the documentation by the nurse practitioner. Time with Patient: Less than 30
[2019-04-19 11:50] LABS: Glucose,Whole Blood 90 mg/dL (75-99)
[2019-04-19] MEDS: ACETAMINOPHEN TAB 325 MG TAB PO PRN (13:33)
--- NOTE | 2019-04-19 15:17 | PN ---
PROGRESS NOTE DATE OF SERVICE: 04/19/2019 REASON FOR FOLLOWUP: Leukocytosis. INTERVAL HISTORY: The patient is currently afebrile. Patient is hemodynamically stable. She is breathing comfortably. The patient denies having any chest pain. Occasional cough. No nausea, no vomiting. No abdominal pain and no diarrhea has been reported by the nursing staff. PHYSICAL EXAMINATION: Blood pressure is 90/23 with a pulse of 61, temperature is 97.5, she is 100% 2 L nasal cannula. General description is an elderly female lying in bed in no distress. RESPIRATORY SYSTEM: Unlabored breathing, clear to auscultation anteriorly. HEART: S1, S2. Regular rate and rhythm. ABDOMEN: Soft. LABS: Hemoglobin 8.1, white count 18.5. BUN of 33, creatinine is 1.20. Cultures have been negative. DIAGNOSTIC IMPRESSION AND PLAN: Patient with leukocytosis which is likely multifactorial with a question of possible pneumonia with UTI. The patient's culture has been negative. White count did show slightly dip with addition of Flagyl to be continued and will monitor the clinical course closely. MMODL / IJN: [id number] /
[2019-04-19] MEDS: metroNIDAZOLE-NS PMX 500 MG in SALINE 1 100ML.BAG IVPB SCH ×2 (15:31→23:51)
[2019-04-19 17:18] LABS: Glucose,Whole Blood 279 mg/dL (75-99)
[2019-04-19] MEDS: traMADol 50 MG TAB PO PRN (17:39)
[2019-04-19 21:40] LABS: Glucose,Whole Blood 226 mg/dL (75-99)
[2019-04-19] MEDS: INSULIN DETEMIR (LEVEMIR) 100 UNIT/ML SYR SQ SCH (21:49)
[2019-04-19] MEDS: CHOLECALCIFEROL 1,000 UNIT TAB PO SCH (21:56)
[2019-04-19] MEDS: ATORVASTATIN 40 MG TAB PO SCH (21:56)
[2019-04-19] MEDS: ARIPiprazole 5 MG TAB PO SCH (22:04)
--- NOTE | 2019-04-19 23:02 | PN ---
PROGRESS NOTE This patient is a white female who remains in ICU. She has bradycardia, hyperkalemia, ventricular tachycardia, COPD, diastolic CHF, complaining of chronic abdominal pain. She would take tramadol back in the rehab center. She is requesting this, which will be started. CARDIOVASCULAR: S1, S2. LUNGS: Rales at the base. HEMATOLOGY: Negative Homans. PSYCH: Fair mood and affect. GI: Distended diffusely. ASSESSMENT: As mentioned above. ICU time 20 minutes. She will be sent to a step-down unit. Diet advanced, as she passed her swallow study. Possible discharge home to the long term in the next couple of days after we get her out of the ICU and keep her PT/OT going. MMODL / IJN: [id number] /
[2019-04-20 05:17] LABS: HCT 28.1 % (34.0-46.0); HGB 8.3 gm/dL (11.4-16.0); Hypochromasia Marked; MCH 31.6 pg (25.0-35.0); MCHC 29.6 g/dL (31.0-37.0); MCV 106.8 fL (80.0-100.0); Macrocytosis Marked; Mean Platelet Volume 7.2; Platelet Count 275 k/uL (150-450); RBC 2.63 m/uL (3.80-5.40); RDW 15.9 % (11.5-15.5); WBC 14.9 k/uL (3.8-10.6)
[2019-04-20 05:20] LABS: Calcium 9.1 mg/dL (8.4-10.2); Potassium 4.2 mmol/L (3.5-5.1)
[2019-04-20 05:25] LABS: Vancomycin,Random 19.4 ug/mL
[2019-04-20 05:45] LABS: Band Neutrophils % 5 %; Eosinophils # (M) 0.45 k/uL (0-0.7); Lymphocytes # (M) 2.38 k/uL (1.0-4.8); Monocytes # (M) 1.94 k/uL (0-1.0); Myelocytes # (M) 1.34 k/uL (0); Myelocytes % 9 %; Neutrophils % (M) 55 %; Nucleated Red Blood Cells 0 /100 WBC (0-0); Total Cells Counted 200
[2019-04-20 05:46] LABS: Polychromasia Present
[2019-04-20 06:20] LABS: Glucose,Whole Blood 207 mg/dL (75-99)
[2019-04-20] MEDS: INSULIN ASPART (NovoLOG) 100 UNIT/ML VIAL SQ SCH ×5 (06:26→21:38)
[2019-04-20] MEDS: MIDODRINE 5 MG TAB PO SCH ×3 (06:26→17:13)
[2019-04-20] MEDS: GABAPENTIN 100 MG CAP PO SCH ×2 (06:26→20:25)
[2019-04-20] MEDS: BUDESONIDE 1 MG/2 ML NEBU INHALATION SCH ×2 (08:23→21:59)
--- NOTE | 2019-04-20 08:30 | PN ---
PROGRESS NOTE Mrs. Garvin was admitted to the hospital with what seems to be a hyperkalemia and bradycardia and then went into atrial fibrillation. She is in sinus rhythm. She is slightly bradycardic. Yesterday, her beta tish dose was already decreased. She is maintaining sinus rhythm. Heart rate is in the mid 50s. Her blood pressure is decent. Her potassium level is also within acceptable limits. It is about 4.2 today and renal function is fair with a creatinine of 1.3. She has not gone back into atrial fibrillation, maintaining sinus rhythm. Hyperkalemia issues have also resolved. I am recommending that we cut back the amiodarone from 400 mg b.i.d., which she has received for 1 week to 200 mg daily and continue all her other medications. She is also anticoagulated and her potassium level seems to be good. Her vital signs are stable. Blood pressure today is 108/70, pulse rate is 58 per minute. No JVD. S1-S2 heard normally, short systolic murmur noted. Lungs revealed decent air entry. Abdomen and lower extremity exam unchanged. Plan is to decrease amiodarone to 200 mg daily and continue her current medical regimen. MMODL / IJN: [id number] /
--- NOTE | 2019-04-20 08:56 | P.PN ---
Subjective Patient is seen in follow-up for acute kidney injury. She has undergone 2 treatments of hemodialysis so far. Last treatment was April 10. Dialysis catheter has been discontinued. Currently resting in bed. She is maintained on IV Lasix 60 mg 3 times daily. Urine output about 250 mL overnight. She is on thickened liquid diet and is not eating much. Vital signs are stable - currently on Levophed. General: The patient appeared well nourished and normally developed. HEENT: Head exam is unremarkable. Neck is without jugular venous distension. LUNGS: Lungs are clear to auscultation and percussion. Breath sounds decreased. HEART: Rate and Rhythm are regular. First and second heart sounds normal. No murmurs, rubs or gallops. ABDOMEN: Abdominal exam reveals normal bowel sounds. Obese. EXTREMITITES: 2+ edema. Objective - Vital Signs Vital signs: Vital Signs Temp 97.6 F 04/20/19 04:00 Pulse 57 L 04/20/19 08:35 Resp 17 04/20/19 04:00 BP 101/50 04/20/19 04:00 Pulse Ox 100 04/20/19 08:23 Intake & Output 04/19/19 04/20/19 04/20/19 18:59 06:59 18:59 Intake Total 730 600 Output Total 470 355 Balance 260 245 Weight 168.1 kg Intake: IV 250 240 0.9 NS 100 140 Cefepime 2 gm In Sodium 50 Chloride 0.9% 100 ml @ 200 mls/hr IVPB DAILY [facility] Rx#:[id number] metroNIDAZOLE-NS PMX 500 100 100 mg In Saline 1 100ml.bag @ 100 mls/hr IVPB Q8HR [facility] Rx#:[id number] Oral 480 360 Output: Urine 470 355 Other: Voiding Method Indwelling Catheter Indwelling Catheter ABP, PAP, CO, CI - Last Documented Arterial Blood Pressure 81/52 - Labs CBC & Chem 7: 04/20/19 04:41 04/20/19 04:41 Labs: Abnormal Lab Results - Last 24 Hours (Table) 04/19/19 04/19/19 04/20/19 Range/Units 17:17 21:38 04:41 WBC (3.8-10.6) k/uL RBC (3.80-5.40) m/uL Hgb (11.4-16.0) gm/dL Hct (34.0-46.0) % MCV (80.0-100.0) fL MCHC (31.0-37.0) g/dL RDW (11.5-15.5) % Neutrophils # (Manual) (1.3-7.7) k/uL Monocytes # (Manual) (0-1.0) k/uL Myelocytes # (Manual) (0) k/uL Macrocytosis Carbon Dioxide 34 H (22-30) mmol/L BUN 37 H (7-17) mg/dL Creatinine 1.31 H (0.52-1.04) mg/dL Glucose 211 H (74-99) mg/dL POC Glucose (mg/dL) 279 H 226 H (75-99) mg/dL 04/20/19 04/20/19 Range/Units 04:41 06:19 WBC 14.9 H (3.8-10.6) k/uL RBC 2.63 L (3.80-5.40) m/uL Hgb 8.3 L (11.4-16.0) gm/dL Hct 28.1 L (34.0-46.0) % MCV 106.8 H (80.0-100.0) fL MCHC 29.6 L (31.0-37.0) g/dL RDW 15.9 H (11.5-15.5) % Neutrophils # (Manual) 8.90 H (1.3-7.7) k/uL Monocytes # (Manual) 1.94 H (0-1.0) k/uL Myelocytes # (Manual) 1.34 H (0) k/uL Macrocytosis Marked A Carbon Dioxide (22-30) mmol/L BUN (7-17) mg/dL Creatinine (0.52-1.04) mg/dL Glucose (74-99) mg/dL POC Glucose (mg/dL) 207 H (75-99) mg/dL Assessment and Plan Plan: Assessment: 1. Acute kidney injury secondary to ATN secondary to hypotension and bradycardia. Creatinine 5.6 on admission. Baseline near 1. No proteinuria on UA. Kidney ultrasound revealed small left kidney without any hydronephrosis. Renal function is improved. Creatinine fairly stable at 1.31 today. 2. Hyperkalemia secondary to acute kidney injury and further worsened with the use of lisinopril. Improved postdialysis. 3. Hyponatremia secondary to acute kidney injury. Resolved. 4. Insulin-dependent diabetes mellitus. 5. Hypotension, off Levophed. 6. Bradycardia secondary to hyperkalemia s/p dopamine. Cardiology following. 7. Volume overload. 8. Metabolic acidosis secondary to acute kidney injury. Resolved. Plan: Repeat 25 g IV albumin 2 doses today. Discontinue IV push Lasix and start Lasix drip at 10 mL an hour. Continue to monitor renal function and urine output. Repeat electrolytes in the morning.
[2019-04-20] MEDS: FUROSEMIDE 10 MG/ML 10 ML VIAL IV SCH (08:58)
[2019-04-20] MEDS: metroNIDAZOLE-NS PMX 500 MG in SALINE 1 100ML.BAG IVPB SCH ×2 (09:04→17:04)
[2019-04-20] MEDS: CEFEPIME 2 GM in SODIUM CHLORIDE 0.9% 100 ML IVPB SCH (09:07)
[2019-04-20] MEDS: NYSTATIN 100,000 UNIT/ML SUSP 500,000 UNIT/5 ML CUP PO SCH ×4 (09:57→21:34)
[2019-04-20] MEDS: FUROSEMIDE 100 MG in SODIUM CHLORIDE 0.9% 90 ML IV SCH (09:57)
[2019-04-20] MEDS: APIXABAN 5 MG TAB PO SCH ×2 (09:58→20:25)
[2019-04-20] MEDS: FERROUS SULFATE 325 MG TAB PO SCH (09:58)
[2019-04-20] MEDS: METOPROLOL TARTRATE 12.5 MG TAB PO SCH ×2 (09:58→20:25)
[2019-04-20] MEDS: AMIODARONE 200 MG TAB PO SCH (09:58)
[2019-04-20] MEDS: CITALOPRAM HYDROBROMIDE 20 MG TAB PO SCH (09:58)
[2019-04-20] MEDS: CITALOPRAM HYDROBROMIDE 10 MG TAB PO SCH (09:58)
[2019-04-20] MEDS: ASPIRIN 81 MG PO SCH (09:58)
[2019-04-20] MEDS: PANTOPRAZOLE 40 MG TABLET PO SCH (09:58)
[2019-04-20] MEDS ORDERED: VANCOMYCIN 2,000 MG in SODIUM CHLORIDE 0.9% 500 ML 500 ML IVPB ONE (10:00)
--- NOTE | 2019-04-20 10:36 | P.PN ---
Subjective Progress Note Date: 04/20/19 Principal diagnosis: Symptomatic bradycardia, hypotension and hyperkalemia The patient is seen today 04/20/2019 in follow-up in the intensive care unit. She is currently awake and alert in no acute distress. She is maintaining O2 saturations in the 90s on 2 L/m per nasal cannula. She has an IV with 0.9 normal saline at KVO. Blood culture reveals no growth. Urine culture reveals no growth. White count 14.9. Hemoglobin 8.3. Creatinine 1.31. She remains on oral amiodarone. Anticoagulated with Eliquis. Continues with significant peripheral edema. Albumin has been ordered. Lasix drip his been initiated. Currently on vancomycin and Flagyl. Objective - Vital Signs Vital signs: Vital Signs Temp 97.6 F 04/20/19 04:00 Pulse 57 L 04/20/19 08:35 Resp 17 04/20/19 04:00 BP 101/50 04/20/19 04:00 Pulse Ox 100 04/20/19 08:23 Intake & Output 04/19/19 04/20/19 04/20/19 18:59 06:59 18:59 Intake Total 730 600 Output Total 470 355 Balance 260 245 Weight 168.1 kg Intake: IV 250 240 0.9 NS 100 140 Cefepime 2 gm In Sodium 50 Chloride 0.9% 100 ml @ 200 mls/hr IVPB DAILY [facility] Rx#:[id number] metroNIDAZOLE-NS PMX 500 100 100 mg In Saline 1 100ml.bag @ 100 mls/hr IVPB Q8HR [facility] Rx#:[id number] Oral 480 360 Output: Urine 470 355 Other: Voiding Method Indwelling Catheter Indwelling Catheter ABP, PAP, CO, CI - Last Documented Arterial Blood Pressure 81/52 - Exam GENERAL EXAM: Awake and alert 74-year-old obese female, 2 L of oxygen with pulse ox of 100%, answers simple questions, comfortable in no apparent distress. HEAD: Normocephalic/atraumatic. EYES: Normal reaction of pupils, equal size. Conjunctiva pink, sclera white. NOSE: Clear with pink turbinates. THROAT: No erythema or exudates. NECK: No masses, no JVD, no thyroid enlargement, no adenopathy. CHEST: No chest wall deformity. Symmetrical expansion. LUNGS: Diminished air entry, crackles in the bilateral posterior bases. CVS: Regular rate and rhythm, normal S1 and S2, no gallops, no murmurs, no rubs ABDOMEN: Soft, obese, with a significant amount of abdominal wall edema. No h epatosplenomegaly, normal bowel sounds, no guarding or rigidity. EXTREMITIES: No clubbing, no cyanosis, 2+ pulses and upper and lower extremities. Significant amount of upper and lower extremity edema anasarca, and edema of abdominal wall MUSCULOSKELETAL: Muscle strength and tone normal. SPINE: No scoliosis or deformity SKIN: Groin folds positive for redness, moisture and rash CENTRAL NERVOUS SYSTEM: Alert and oriented -3, tone is normal in all 4 extremities. - Labs CBC & Chem 7: 04/20/19 04:41 04/20/19 04:41 Labs: Abnormal Lab Results - Last 24 Hours (Table) 04/19/19 04/19/19 04/20/19 Range/Units 17:17 21:38 04:41 WBC (3.8-10.6) k/uL RBC (3.80-5.40) m/uL Hgb (11.4-16.0) gm/dL Hct (34.0-46.0) % MCV (80.0-100.0) fL MCHC (31.0-37.0) g/dL RDW (11.5-15.5) % Neutrophils # (Manual) (1.3-7.7) k/uL Monocytes # (Manual) (0-1.0) k/uL Myelocytes # (Manual) (0) k/uL Macrocytosis Carbon Dioxide 34 H (22-30) mmol/L BUN 37 H (7-17) mg/dL Creatinine 1.31 H (0.52-1.04) mg/dL Glucose 211 H (74-99) mg/dL POC Glucose (mg/dL) 279 H 226 H (75-99) mg/dL 04/20/19 04/20/19 Range/Units 04:41 06:19 WBC 14.9 H (3.8-10.6) k/uL RBC 2.63 L (3.80-5.40) m/uL Hgb 8.3 L (11.4-16.0) gm/dL Hct 28.1 L (34.0-46.0) % MCV 106.8 H (80.0-100.0) fL MCHC 29.6 L (31.0-37.0) g/dL RDW 15.9 H (11.5-15.5) % Neutrophils # (Manual) 8.90 H (1.3-7.7) k/uL Monocytes # (Manual) 1.94 H (0-1.0) k/uL Myelocytes # (Manual) 1.34 H (0) k/uL Macrocytosis Marked A Carbon Dioxide (22-30) mmol/L BUN (7-17) mg/dL Creatinine (0.52-1.04) mg/dL Glucose (74-99) mg/dL POC Glucose (mg/dL) 207 H (75-99) mg/dL Assessment and Plan Assessment: #1. Acute hypoxic respiratory failure secondary to ventricular tachycardia, A. fib with RVR, congestive heart failure, requiring intubation and mechanical jayden tilation. Patient was intubated on 04/12/2019 and successfully weaned and extubated on 04/14/2019. Patient is status post synchronized cardioversion 6 with successful conversion to sinus rhythm, cardiac catheterization did not show significant obstructive coronary artery disease #2. Acute exacerbation of congestive heart failure with preserved ventricular systolic function and EF of 50-55% based continues with anasarca with significant edema of the extremities. Started on a Lasix drip today at 10 mg per hour. To receive albumin as well. #3. Symptomatic bradycardia with hypotension related to hyperkalemia on presentation, resolved #4. Acute kidney injury secondary to acute tubular necrosis and hypotension and bradycardia, improving #5. Leukocytosis, patient is empirically covered with cefepime and vancomycin has had no fever. Urine and blood cultures have shown no growth #6. Hyperkalemia, resolved #7. Insulin dependent diabetes mellitus #8. History of coronary artery disease and previous stent placement #9. Irritable bowel syndrome #10. Chronic urinary incontinence #11. History of cervical cancer previous hysterectomy #12. History of partial parathyroidectomy #13. History of benign essential hypertension #14. Chronic diastolic CHF #15. Status post cardiac catheterization no significant coronary artery disease #16. Metabolic encephalopathy Plan: The patient was seen and evaluated by Dr. Vasquez. She is currently stable from the pulmonary critical care standpoint. Still awaiting a selective care unit bed. She's been initiated on a Lasix drip at 10 mg per hour. To receive albumin. Nephrology is on the case. We will continue to follow and make further recommendations based on her clinical status. I, the cosigning physician, performed a history & physical examination of the patient. Lungs sounds with crackles in the bilateral posterior bases. Maintaining good O2 saturations in the 90s on 2 L/m per nasal cannula. I discussed the assessment and plan of care with my nurse practitioner, Meena Rangel. I attest to the above note as dictated by her.
[2019-04-20 11:51] LABS: Glucose,Whole Blood 176 mg/dL (75-99)
[2019-04-20] MEDS: ALBUMIN HUMAN 25% 50 ML in EMPTY BAG 1 BAG IVPB SCH ×4 (13:57→22:36)
[2019-04-20 16:44] LABS: Glucose,Whole Blood 257 mg/dL (75-99)
[2019-04-20] MEDS: CHOLECALCIFEROL 1,000 UNIT TAB PO SCH (20:25)
[2019-04-20] MEDS: ATORVASTATIN 40 MG TAB PO SCH (20:25)
[2019-04-20 20:32] LABS: Glucose,Whole Blood 296 mg/dL (75-99)
[2019-04-20] MEDS: ARIPiprazole 5 MG TAB PO SCH (21:38)
[2019-04-20] MEDS: INSULIN DETEMIR (LEVEMIR) 100 UNIT/ML SYR SQ SCH (22:22)
[2019-04-21] MEDS: metroNIDAZOLE-NS PMX 500 MG in SALINE 1 100ML.BAG IVPB SCH ×4 (01:07→23:45)
--- NOTE | 2019-04-21 01:13 | PN ---
PROGRESS NOTE She has been started on Lasix drip today. Blood cultures are negative. Urine culture is negative. Normal saline KVO. Oral appetite is slowly improving. Creatinine is 1.31, hemoglobin 8.3, white count 14.9. She remains on cefepime, vancomycin. She is on Eliquis for atrial fibrillation, oral amiodarone for atrial fibrillation rapid ventricular response. Significant pulmonary edema. Albumin and Lasix have been ordered. Try to get rid of the third-spacing of fluid. She is on cefepime and Flagyl. O2 100% on 2-3 L. Blood pressure 101/50, temp 97.6, pulse 50s to 60s, respiratory 16- 20. Weight is 168 pounds. She is on 2 L oxygen. She is answering questions appropriately. She is alert and oriented x3. Abdomen is distended, obese. Generalized edema, anasarca type changes. Cardiovascular S1, S2. External ear canals within normal limits. Nares appear patent. Musculoskeletal: Range of motion full. Skin shows redness, moisture and rash in groin areas BUN 37, creatinine 1.31. White count 14.9, hemoglobin 8.3. ASSESSMENT: 1. Acute hypoxemic respiratory failure secondary to atrial fibrillation with rapid ventricular response. 2. Ventricular tachycardia. 3. Congestive heart failure, diastolic, status post synchronized cardioversion x6 with heart cardiac catheterization, no blockages. 4. History of stents. 5. Symptomatic bradycardia. 6. Hypotension. 7. Hyperkalemia. 8. Acute renal injury, acute tubular necrosis. 9. Leukocytosis, cefepime, vanc and Flagyl continue. Hyperkalemia is improved. 10.Insulin-dependent diabetes mellitus. 11.History of coronary artery disease with stents. 12.Irritable bowel syndrome. 13.Urinary incontinence. 14.History of cervical cancer. 15.Partial parathyroidectomy. 16.Hypertension. 17.Metabolic encephalopathy. 18.History of cardiac stents x4. She is improving slowly. She needs to get some third-spacing of fluids out and then get PT and OT going and ambulate her. Please see further orders. ICU time: 20 minutes. MMODL / IJN: [id number] /
--- NOTE | 2019-04-21 01:49 | PN ---
PROGRESS NOTE DATE OF SERVICE: 04/20/2019 REASON FOR FOLLOWUP: Leukocytosis and likely abdominal abscess. INTERVAL HISTORY: The patient is currently afebrile. The patient has been breathing comfortably. Denies having any chest pain. Did have some cough. No sputum. No nausea, no vomiting. Denies abdominal pain. No diarrhea. PHYSICAL EXAMINATION: Blood pressure 125/56, pulse of 63, temperature 97.8, she is 92% on 2 L nasal cannula. General description which is an elderly female lying in bed in no distress. Respiratory system: Unlabored breathing. Decreased breath sounds at the bases, no wheeze. Heart S1, S2. Regular rate and rhythm. Abdomen soft, no tenderness. LABS: Hemoglobin 8.8, white count 14.8 with a BUN of 37, creatinine 1.31. Blood culture has been negative. Urine is negative. DIAGNOSTIC IMPRESSION AND PLAN: Patient with leukocytosis which is likely multifactorial. Possible abdominal source. This patient's white count responded to addition of Flagyl yesterday. Will continue along with cefepime and monitor clinical course closely. Continue supportive care. MMODL / IJN: [id number] /
[2019-04-21] MEDS: FUROSEMIDE 100 MG in SODIUM CHLORIDE 0.9% 90 ML IV SCH ×4 (05:15→23:48)
[2019-04-21 06:25] LABS: Glucose,Whole Blood 320 mg/dL (75-99)
[2019-04-21] MEDS: INSULIN ASPART (NovoLOG) 100 UNIT/ML VIAL SQ SCH ×7 (06:45→20:12)
[2019-04-21] MEDS: MIDODRINE 5 MG TAB PO SCH ×3 (06:45→17:21)
[2019-04-21] MEDS: GABAPENTIN 100 MG CAP PO SCH ×2 (06:45→20:11)
[2019-04-21 07:00] LABS: Albumin 3.1 g/dL (3.5-5.0); Calcium 9.2 mg/dL (8.4-10.2); Potassium 4.3 mmol/L (3.5-5.1); Total Bilirubin 0.5 mg/dL (0.2-1.3); Total Protein 4.9 g/dL (6.3-8.2)
[2019-04-21 07:09] LABS: HCT 25.3 % (34.0-46.0); HGB 7.7 gm/dL (11.4-16.0); Hypochromasia Marked; MCH 32.5 pg (25.0-35.0); MCHC 30.4 g/dL (31.0-37.0); Macrocytosis Marked; Mean Platelet Volume 7.4; Platelet Count 267 k/uL (150-450); RBC 2.36 m/uL (3.80-5.40); RDW 15.7 % (11.5-15.5); WBC 10.6 k/uL (3.8-10.6)
[2019-04-21] MEDS: BUDESONIDE 1 MG/2 ML NEBU INHALATION SCH ×2 (07:37→19:41)
[2019-04-21 07:56] LABS: Band Neutrophils % 1 %; Basophils # (M) 0.11 k/uL (0-0.2); Eosinophils # (M) 0.64 k/uL (0-0.7); Metamyelocytes # (M) 0.32 k/uL (0); Metamyelocytes % 3 %; Monocytes # (M) 0.53 k/uL (0-1.0); Myelocytes # (M) 0.74 k/uL (0); Myelocytes % 7 %; Neutrophils % (M) 63 %; Nucleated Red Blood Cells 0 /100 WBC (0-0); Stomatocytes Present; Total Cells Counted 200
[2019-04-21 07:57] LABS: Anisocytosis (M) Present
[2019-04-21] MEDS: CEFEPIME 2 GM in SODIUM CHLORIDE 0.9% 100 ML IVPB SCH (08:26)
[2019-04-21] MEDS: METOPROLOL TARTRATE 12.5 MG TAB PO SCH ×2 (08:28→23:45)
[2019-04-21] MEDS: APIXABAN 5 MG TAB PO SCH ×2 (08:28→20:11)
[2019-04-21] MEDS: CITALOPRAM HYDROBROMIDE 10 MG TAB PO SCH (08:28)
[2019-04-21] MEDS: FERROUS SULFATE 325 MG TAB PO SCH (08:28)
[2019-04-21] MEDS: CITALOPRAM HYDROBROMIDE 20 MG TAB PO SCH (08:28)
[2019-04-21] MEDS: ASPIRIN 81 MG PO SCH (08:28)
[2019-04-21] MEDS: AMIODARONE 200 MG TAB PO SCH (08:28)
[2019-04-21] MEDS: PANTOPRAZOLE 40 MG TABLET PO SCH (08:28)
[2019-04-21] MEDS: NYSTATIN 100,000 UNIT/ML SUSP 500,000 UNIT/5 ML CUP PO SCH ×4 (08:29→20:12)
--- NOTE | 2019-04-21 09:27 | P.PN ---
Subjective Patient is seen in follow-up for acute kidney injury. She has undergone 2 treatments of hemodialysis so far. Last treatment was April 10. Dialysis catheter has been discontinued. Currently resting in bed. She is maintained on Lasix drip. Urine output documented is 945 mL in the last 24 hours. She is on thickened liquid diet and is not eating much. Vital signs are stable - currently on Levophed. General: The patient appeared well nourished and normally developed. HEENT: Head exam is unremarkable. Neck is without jugular venous distension. LUNGS: Lungs are clear to auscultation and percussion. Breath sounds decreased. HEART: Rate and Rhythm are regular. First and second heart sounds normal. No murmurs, rubs or gallops. ABDOMEN: Abdominal exam reveals normal bowel sounds. Obese. EXTREMITITES: 2+ edema. Objective - Vital Signs Vital signs: Vital Signs Temp 97.8 F 04/21/19 08:15 Pulse 73 04/21/19 08:15 Resp 19 04/21/19 08:15 BP 144/58 04/21/19 08:15 Pulse Ox 95 04/21/19 08:15 Intake & Output 04/20/19 04/21/19 04/21/19 18:59 06:59 18:59 Intake Total 1180 250 392 Output Total 275 670 Balance 905 -420 392 Weight 168.1 kg 166 kg Intake: IV 940 50 0.9 NS 90 Albumin Human 25% 50 ml 100 In Empty Bag 1 bag @ 50 mls/hr IVPB ONCE [facility] Rx#: [id number] Albumin Human 25% 50 ml 100 50 In Empty Bag 1 bag @ 50 mls/hr IVPB Q1H [facility] Rx#: [id number] Cefepime 2 gm In Sodium 50 Chloride 0.9% 100 ml @ 200 mls/hr IVPB DAILY [facility] Rx#:[id number] Vancomycin 2,000 mg In 500 Sodium Chloride 0.9% 500 ml 500 ml @ 167 mls/hr IVPB ONCE ONE Rx#: [id number] metroNIDAZOLE-NS PMX 500 100 mg In Saline 1 100ml.bag @ 100 mls/hr IVPB Q8HR [facility] Rx#:[id number] Intake, IV Titration 100 32 Amount Furosemide 100 mg In 100 32 Sodium Chloride 0.9% 90 ml @ 10 MG/HR 10 mls/hr IV .Q10H [facility] Rx#: [id number] Oral 240 100 360 Output: Urine 275 670 Other: Voiding Method Indwelling Catheter Indwelling Catheter Indwelling Catheter # Voids 1 ABP, PAP, CO, CI - Last Documented Arterial Blood Pressure 81/52 - Labs CBC & Chem 7: 04/21/19 06:42 04/21/19 06:42 Labs: Abnormal Lab Results - Last 24 Hours (Table) 04/20/19 04/20/19 04/20/19 Range/Units 11:49 16:43 20:31 RBC (3.80-5.40) m/uL Hgb (11.4-16.0) gm/dL Hct (34.0-46.0) % MCV (80.0-100.0) fL MCHC (31.0-37.0) g/dL RDW (11.5-15.5) % Metamyelocytes # (Man) (0) k/uL Myelocytes # (Manual) (0) k/uL Macrocytosis Carbon Dioxide (22-30) mmol/L BUN (7-17) mg/dL Creatinine (0.52-1.04) mg/dL Glucose (74-99) mg/dL POC Glucose (mg/dL) 176 H 257 H 296 H (75-99) mg/dL AST (14-36) U/L Alkaline Phosphatase (38-126) U/L Total Protein (6.3-8.2) g/dL Albumin (3.5-5.0) g/dL 04/21/19 04/21/19 04/21/19 Range/Units 06:23 06:42 06:42 RBC 2.36 L (3.80-5.40) m/uL Hgb 7.7 L (11.4-16.0) gm/dL Hct 25.3 L (34.0-46.0) % MCV 107.0 H (80.0-100.0) fL MCHC 30.4 L (31.0-37.0) g/dL RDW 15.7 H (11.5-15.5) % Metamyelocytes # (Man) 0.32 H (0) k/uL Myelocytes # (Manual) 0.74 H (0) k/uL Macrocytosis Marked A Carbon Dioxide 32 H (22-30) mmol/L BUN 40 H (7-17) mg/dL Creatinine 1.34 H (0.52-1.04) mg/dL Glucose 269 H (74-99) mg/dL POC Glucose (mg/dL) 320 H (75-99) mg/dL AST 10 L (14-36) U/L Alkaline Phosphatase 35 L (38-126) U/L Total Protein 4.9 L (6.3-8.2) g/dL Albumin 3.1 L (3.5-5.0) g/dL Assessment and Plan Plan: Assessment: 1. Acute kidney injury secondary to ATN secondary to hypotension and bradycardia. Creatinine 5.6 on admission. Baseline near 1. No proteinuria on UA. Kidney ultrasound revealed small left kidney without any hydronephrosis. Renal function is improved. Creatinine fairly stable at 1.34 today. 2. Hyperkalemia secondary to acute kidney injury and further worsened with the use of lisinopril. Improved postdialysis. 3. Hyponatremia secondary to acute kidney injury. Resolved. 4. Insulin-dependent diabetes mellitus. 5. Hypotension, off Levophed. 6. Bradycardia secondary to hyperkalemia s/p dopamine. Cardiology following. 7. Volume overload. 8. Metabolic acidosis secondary to acute kidney injury. Resolved. Plan: Status post IV albumin the last 2 days. Increase Lasix drip to 15 mL an hour. Add metolazone 5 mg once daily. Continue to monitor renal function and urine output. Repeat electrolytes in the morning.
--- NOTE | 2019-04-21 11:29 | P.PN ---
Subjective Progress Note Date: 04/21/19 Principal diagnosis: bradycardia/hyperkalemia/renal failure/CHF PROGRESS NOTE 04/21/19 74-year-old female with history of coronary artery disease, obesity, new onset renal failure, congestive heart failure, bradycardia and hyper-kalemia. Patient has had a long complicated course since admission but bradycardia has resolved and renal failure has improved. Patient currently sinus rhythm on monitors, heart rate 81. Patient has no current complaints of chest pain, chest pressure or palpitations. Pt is tachy-pneic, has cough and SOB without activity. Continues with updraft treatments. Patient has morbidly obese body habitus which looks to be currently in anasarca. Patient has 3-4+ pitting edema up to her hips. Patient continues on IV Lasix, nephro management. Consider use of Zaroxolyn to assist in diuresis of patient. Patient hemoglobin 7.7, CR 25.3 this day. BUN/creatinine much improved. Protein and albumin levels remain low. Patient is alert and awake. Vital signs currently stable, 98% on 2 L of O2. Bilateral lung auscultation reveals crackles and diminished airway and lower basis. No acute distress. PHYSICAL EXAMINATION: HEENT: Head is atraumatic, normocephalic. Pupils are equal, round. Sclerae anicteric. Conjunctivae are clear. Mucous membranes of the mouth are moist. Neck is supple. There is no jugular venous distention. No carotid bruit is heard. No thyromegaly. LUNGS: Diminished with fine crackles to bases on auscultation No wheezes, rales or rhonchi. No chest wall tenderness is noted on palpation or with deep breathing. HEART: Regular rate and rhythm without murmurs, rubs or gallops. S1 and S2 heard. ABDOMEN: MORBIDLY OBESE. Abdominal exam revealed normal bowel sounds. The abdomen was soft, non-tender, and without masses, organomegaly, or appreciable enlargement of the abdominal aorta. EXTREMITIES: Examination of the extremities revealed easily palpable radial, femoral and pedal pulses. There was no cyanosis or clubbing. 3-4+ pitting edema to the hips. No calf tenderness noted. VASCULAR: Radial and dorsalis pedis pulses palpated, no evidence of clubbing. NEUROLOGIC: Patient is awake, alert and oriented x3. There were no obvious focal neurologic abnormalities. LAB DATA: hemoglobin 7.7, CR 25.3 this day. BUN/creatinine much improved. Protein and albumin levels remain low. K 4.3 FINAL IMPRESSION: 1. acute renal failure 2. morbid obesity 3. A. fib RVR, now converted to sinus rhythm controlled rate. 4. bradycardia, resolved 5. volume overload, anasarca PLAN: Patient to continue same medical/medication regime. Patient advised to eat high-protein foods with low albumin/protein levels. Advise Zaroxolyn use with IV Lasix, deferred decision to nephrology. Low-salt, heart healthy, high- protein diet. Daily CBC/BMP/BNP/magnesium/protein level advised. Objective - Vital Signs Vital signs: Vital Signs Temp 97.8 F 04/21/19 08:15 Pulse 73 04/21/19 08:15 Resp 19 04/21/19 08:15 BP 144/58 04/21/19 08:15 Pulse Ox 95 04/21/19 08:15 Intake & Output 04/20/19 04/21/19 04/21/19 18:59 06:59 18:59 Intake Total 1180 250 392 Output Total 275 670 Balance 905 -420 392 Weight 168.1 kg 166 kg Intake: IV 940 50 0.9 NS 90 Albumin Human 25% 50 ml 100 In Empty Bag 1 bag @ 50 mls/hr IVPB ONCE ONE Rx#: [id number] Albumin Human 25% 50 ml 100 50 In Empty Bag 1 bag @ 50 mls/hr IVPB Q1H [facility] Rx#: [id number] Cefepime 2 gm In Sodium 50 Chloride 0.9% 100 ml @ 200 mls/hr IVPB DAILY [facility] Rx#:[id number] Vancomycin 2,000 mg In 500 Sodium Chloride 0.9% 500 ml 500 ml @ 167 mls/hr IVPB ONCE ONE Rx#: [id number] metroNIDAZOLE-NS PMX 500 100 mg In Saline 1 100ml.bag @ 100 mls/hr IVPB Q8HR [facility] Rx#:[id number] Intake, IV Titration 100 32 Amount Furosemide 100 mg In 100 32 Sodium Chloride 0.9% 90 ml @ 10 MG/HR 10 mls/hr IV .Q10H [facility] Rx#: [id number] Oral 240 100 360 Output: Urine 275 670 Other: Voiding Method Indwelling Catheter Indwelling Catheter Indwelling Catheter # Voids 1 ABP, PAP, CO, CI - Last Documented Arterial Blood Pressure 81/52 - Labs CBC & Chem 7: 04/21/19 06:42 04/21/19 06:42 Labs: Abnormal Lab Results - Last 24 Hours (Table) 04/20/19 04/20/19 04/20/19 Range/Units 11:49 16:43 20:31 RBC (3.80-5.40) m/uL Hgb (11.4-16.0) gm/dL Hct (34.0-46.0) % MCV (80.0-100.0) fL MCHC (31.0-37.0) g/dL RDW (11.5-15.5) % Metamyelocytes # (Man) (0) k/uL Myelocytes # (Manual) (0) k/uL Macrocytosis Carbon Dioxide (22-30) mmol/L BUN (7-17) mg/dL Creatinine (0.52-1.04) mg/dL Glucose (74-99) mg/dL POC Glucose (mg/dL) 176 H 257 H 296 H (75-99) mg/dL AST (14-36) U/L Alkaline Phosphatase (38-126) U/L Total Protein (6.3-8.2) g/dL Albumin (3.5-5.0) g/dL 04/21/19 04/21/19 04/21/19 Range/Units 06:23 06:42 06:42 RBC 2.36 L (3.80-5.40) m/uL Hgb 7.7 L (11.4-16.0) gm/dL Hct 25.3 L (34.0-46.0) % MCV 107.0 H (80.0-100.0) fL MCHC 30.4 L (31.0-37.0) g/dL RDW 15.7 H (11.5-15.5) % Metamyelocytes # (Man) 0.32 H (0) k/uL Myelocytes # (Manual) 0.74 H (0) k/uL Macrocytosis Marked A Carbon Dioxide 32 H (22-30) mmol/L BUN 40 H (7-17) mg/dL Creatinine 1.34 H (0.52-1.04) mg/dL Glucose 269 H (74-99) mg/dL POC Glucose (mg/dL) 320 H (75-99) mg/dL AST 10 L (14-36) U/L Alkaline Phosphatase 35 L (38-126) U/L Total Protein 4.9 L (6.3-8.2) g/dL Albumin 3.1 L (3.5-5.0) g/dL
--- NOTE | 2019-04-21 11:53 | P.PN ---
Subjective Progress Note Date: 04/21/19 Principal diagnosis: Symptomatic bradycardia, hypotension and hyperkalemia The patient is seen today 04/21/2019 in follow-up on the selective care unit. She is currently awake and alert. Resting comfortably in bed. No worsening shortness of breath, cough or congestion. Maintaining O2 saturations in the mid 90s on 2 L/m per nasal cannula. She's been afebrile. Hemodynamically stable. Urine and blood cultures reveal no growth. White count 10.6. Hemoglobin 7.7. Sodium 140. Potassium 4.3. Creatinine 1.34. Currently on a Lasix drip at 10 mg per hour. She continues with significant peripheral edema. She is down 2 kg. Objective - Vital Signs Vital signs: Vital Signs Temp 97.8 F 04/21/19 08:15 Pulse 73 04/21/19 08:15 Resp 19 04/21/19 08:15 BP 144/58 04/21/19 08:15 Pulse Ox 95 04/21/19 08:15 Intake & Output 04/20/19 04/21/19 04/21/19 18:59 06:59 18:59 Intake Total 1180 250 392 Output Total 275 670 Balance 905 -420 392 Weight 168.1 kg 166 kg Intake: IV 940 50 0.9 NS 90 Albumin Human 25% 50 ml 100 In Empty Bag 1 bag @ 50 mls/hr IVPB ONCE ONE Rx#: [id number] Albumin Human 25% 50 ml 100 50 In Empty Bag 1 bag @ 50 mls/hr IVPB Q1H [facility] Rx#: [id number] Cefepime 2 gm In Sodium 50 Chloride 0.9% 100 ml @ 200 mls/hr IVPB DAILY [facility] Rx#:[id number] Vancomycin 2,000 mg In 500 Sodium Chloride 0.9% 500 ml 500 ml @ 167 mls/hr IVPB ONCE ONE Rx#: [id number] metroNIDAZOLE-NS PMX 500 100 mg In Saline 1 100ml.bag @ 100 mls/hr IVPB Q8HR [facility] Rx#:[id number] Intake, IV Titration 100 32 Amount Furosemide 100 mg In 100 32 Sodium Chloride 0.9% 90 ml @ 10 MG/HR 10 mls/hr IV .Q10H [facility] Rx#: [id number] Oral 240 100 360 Output: Urine 275 670 Other: Voiding Method Indwelling Catheter Indwelling Catheter Indwelling Catheter # Voids 1 ABP, PAP, CO, CI - Last Documented Arterial Blood Pressure 81/52 - Exam GENERAL EXAM: Awake and alert 74-year-old obese female, 2 L of oxygen with pulse ox of 95%, comfortable in no apparent distress. HEAD: Normocephalic/atraumatic. EYES: Normal reaction of pupils, equal size. Conjunctiva pink, sclera white. NOSE: Clear with pink turbinates. THROAT: No erythema or exudates. NECK: No masses, no JVD, no thyroid enlargement, no adenopathy. CHEST: No chest wall deformity. Symmetrical expansion. LUNGS: Diminished air entry, crackles in the bilateral posterior bases. CVS: Regular rate and rhythm, normal S1 and S2, no gallops, no murmurs, no rubs ABDOMEN: Soft, obese, with a significant amount of abdominal wall edema. No hepatosplenomegaly, normal bowel sounds, no guarding or rigidity. EXTREMITIES: No clubbing, no cyanosis, 2+ pulses and upper and lower extremities. Significant amount of upper and lower extremity edema anasarca, and edema of abdominal wall MUSCULOSKELETAL: Muscle strength and tone normal. SPINE: No scoliosis or deformity SKIN: Groin folds positive for redness, moisture and rash CENTRAL NERVOUS SYSTEM: Alert and oriented -3, tone is normal in all 4 extremities. - Labs CBC & Chem 7: 04/21/19 06:42 04/21/19 06:42 Labs: Abnormal Lab Results - Last 24 Hours (Table) 04/20/19 04/20/19 04/20/19 Range/Units 11:49 16:43 20:31 RBC (3.80-5.40) m/uL Hgb (11.4-16.0) gm/dL Hct (34.0-46.0) % MCV (80.0-100.0) fL MCHC (31.0-37.0) g/dL RDW (11.5-15.5) % Metamyelocytes # (Man) (0) k/uL Myelocytes # (Manual) (0) k/uL Macrocytosis Carbon Dioxide (22-30) mmol/L BUN (7-17) mg/dL Creatinine (0.52-1.04) mg/dL Glucose (74-99) mg/dL POC Glucose (mg/dL) 176 H 257 H 296 H (75-99) mg/dL AST (14-36) U/L Alkaline Phosphatase (38-126) U/L Total Protein (6.3-8.2) g/dL Albumin (3.5-5.0) g/dL 04/21/19 04/21/19 04/21/19 Range/Units 06:23 06:42 06:42 RBC 2.36 L (3.80-5.40) m/uL Hgb 7.7 L (11.4-16.0) gm/dL Hct 25.3 L (34.0-46.0) % MCV 107.0 H (80.0-100.0) fL MCHC 30.4 L (31.0-37.0) g/dL RDW 15.7 H (11.5-15.5) % Metamyelocytes # (Man) 0.32 H (0) k/uL Myelocytes # (Manual) 0.74 H (0) k/uL Macrocytosis Marked A Carbon Dioxide 32 H (22-30) mmol/L BUN 40 H (7-17) mg/dL Creatinine 1.34 H (0.52-1.04) mg/dL Glucose 269 H (74-99) mg/dL POC Glucose (mg/dL) 320 H (75-99) mg/dL AST 10 L (14-36) U/L Alkaline Phosphatase 35 L (38-126) U/L Total Protein 4.9 L (6.3-8.2) g/dL Albumin 3.1 L (3.5-5.0) g/dL Assessment and Plan Assessment: #1. Acute hypoxic respiratory failure secondary to ventricular tachycardia, A. fib with RVR, congestive heart failure, requiring intubation and mechanical ventilation. Patient was intubated on 04/12/2019 and successfully weaned and extubated on 04/14/2019. Patient is status post synchronized cardioversion 6 with successful conversion to sinus rhythm, cardiac catheterization did not show significant obstructive coronary artery disease #2. Acute exacerbation of congestive heart failure with preserved ventricular systolic function and EF of 50-55% based continues with anasarca with significant edema of the extremities. Continued on a Lasix drip at 10 mg per hour. #3. Symptomatic bradycardia with hypotension related to hyperkalemia on presentation, resolved #4. Acute kidney injury secondary to acute tubular necrosis and hypotension and bradycardia, improving #5. Leukocytosis, patient is empirically covered with cefepime and vancomycin has had no fever. Urine and blood cultures have shown no growth #6. Hyperkalemia, resolved #7. Insulin dependent diabetes mellitus #8. History of coronary artery disease and previous stent placement #9. Irritable bowel syndrome #10. Chronic urinary incontinence #11. History of cervical cancer previous hysterectomy #12. History of partial parathyroidectomy #13. History of benign essential hypertension #14. Chronic diastolic CHF #15. Status post cardiac catheterization no significant coronary artery disease #16. Metabolic encephalopathy Plan: The patient was seen and evaluated by Dr. Vasquez. Labs reviewed. She's been initiated on a Lasix drip at 10 mg per hour. Obtain a chest x-ray in the a.m. We will continue to follow and make further recommendations based on her clinical status. I, the cosigning physician, performed a history & physical examination of the patient. Lungs sounds with crackles in the bilateral posterior bases. Maintaining good O2 saturations in the 90s on 2 L/m per nasal cannula. I discussed the assessment and plan of care with my nurse practitioner, Meena Rangel. I attest to the above note as dictated by her.
[2019-04-21 12:02] LABS: Glucose,Whole Blood 292 mg/dL (75-99)
[2019-04-21] MEDS: METOLAZONE 5 MG TAB PO SCH (12:15)
[2019-04-21 16:37] LABS: Glucose,Whole Blood 283 mg/dL (75-99)
--- NOTE | 2019-04-21 19:01 | PN ---
PROGRESS NOTE 74-year-old white female transferred out of the ICU, diastolic CHF, status post ventricular tachycardia. She has been continued on Lasix. Her rashes in her groin are better. She is in the mid 90s on 2 L. Creatinine is 1.34, potassium 4.3, sodium 140. White count is 10.6, down 2 kg on Lasix drip. Temp 97.8, pulse 70s, respiratory 18-20, blood pressure 144/58, O2 95%. Endocrine: BMI is over 51. Lungs show rales at the bases. Cardiac: S1, S2. Abdomen is distended, obesity. Integument as mentioned. Groins redness. Hemoglobin is 7.7, white count 10.6, BUN 40, creatinine 1.34. ASSESSMENT: 1. Status post ventricular tachycardia, acute diastolic congestive heart failure, status post bradycardia. 2. Acute kidney injury. 3. Irritable bowel syndrome. 4. Coronary artery disease with stents. 5. Insulin-dependent diabetes mellitus. 6. Hyperkalemia, resolved. 7. Chronic urinary incontinence. Continue on Lasix. PT/OT and get her ready for possible discharge sometime this week. Please see further orders. Broad-spectrum antibiotics continued. MMODL / IJN: [id number] /
[2019-04-21 20:00] LABS: Glucose,Whole Blood 245 mg/dL (75-99)
[2019-04-21] MEDS: ARIPiprazole 5 MG TAB PO SCH (20:11)
[2019-04-21] MEDS: ATORVASTATIN 40 MG TAB PO SCH (20:11)
[2019-04-21] MEDS: CHOLECALCIFEROL 1,000 UNIT TAB PO SCH (20:11)
[2019-04-21] MEDS: INSULIN DETEMIR (LEVEMIR) 100 UNIT/ML SYR SQ SCH (20:12)
--- NOTE | 2019-04-21 22:21 | PN ---
PROGRESS NOTE DATE OF SERVICE: 04/21/2019. REASON FOR FOLLOWUP: Leukocytosis, possible abdominal source. INTERVAL HISTORY: The patient is currently afebrile. She has been breathing comfortably. Denies having any chest pain or cough. No nausea, vomiting. No abdominal pain and no diarrhea has been reported. PHYSICAL EXAMINATION: Blood pressure 132/62 with a pulse of 60, temperature 98.2, she is 96% on 2 L nasal cannula. General description is an elderly female lying in bed in no distress. Respiratory system: Unlabored breathing. Decreased breath sounds in the bases, no wheeze. Heart S1, S2. Regular rate and rhythm. Abdomen soft, no tenderness. LABS: Hemoglobin 7.7, white count down to 10.6, creatinine is 1.34. Cultures have been negative so far. DIAGNOSTIC IMPRESSION: Patient with leukocytosis which is likely secondary to abdominal source in this patient. White count responded with addition of the Flagyl. PLAN: At this time keep the patient on cefepime and Flagyl. Hopefully finish therapy with oral antibiotics. Continue supportive care. MMODL / IJN: [id number] /
[2019-04-22 06:29] LABS: Glucose,Whole Blood 180 mg/dL (75-99)
[2019-04-22] MEDS: INSULIN ASPART (NovoLOG) 100 UNIT/ML VIAL SQ SCH ×6 (06:39→20:44)
[2019-04-22] MEDS: MIDODRINE 5 MG TAB PO SCH ×3 (06:40→17:11)
[2019-04-22] MEDS: GABAPENTIN 100 MG CAP PO SCH ×2 (06:40→20:44)
[2019-04-22] MEDS: FUROSEMIDE 100 MG in SODIUM CHLORIDE 0.9% 90 ML IV SCH ×3 (06:44→17:12)
[2019-04-22 07:07] LABS: HCT 27.9 % (34.0-46.0); HGB 8.4 gm/dL (11.4-16.0); Hypochromasia Marked; MCH 31.9 pg (25.0-35.0); MCHC 30.2 g/dL (31.0-37.0); MCV 105.8 fL (80.0-100.0); Macrocytosis Moderate; Mean Platelet Volume 7.3; Platelet Count 297 k/uL (150-450); RBC 2.64 m/uL (3.80-5.40); RDW 15.5 % (11.5-15.5); WBC 11.3 k/uL (3.8-10.6)
[2019-04-22 07:17] LABS: Albumin 2.9 g/dL (3.5-5.0); Calcium 9.4 mg/dL (8.4-10.2); Magnesium 1.6 mg/dL (1.6-2.3); Potassium 3.9 mmol/L (3.5-5.1); Total Bilirubin 0.5 mg/dL (0.2-1.3); Total Protein 4.7 g/dL (6.3-8.2)
[2019-04-22 07:23] LABS: Vancomycin,Random 21.7 ug/mL
--- NOTE | 2019-04-22 07:48 | XR ---
EXAMINATION TYPE: XR chest 1V portable DATE OF EXAM: 04/22/2019 COMPARISON: 04/18/2019 HISTORY: Shortness of breath FINDINGS: There are bilateral pleural effusions with cardiomegaly and bibasilar infiltrate. There is a diffuse interstitial pattern. Surgical clips overlying the soft tissues. Right-sided PICC line noted. Calcif ic tendinosis of the left shoulder. Persistent prominence of the hilum. Most likely represents promin ent pulmonary arteries and pulmonary arterial hypertension. IMPRESSION: 1. Correlate for CHF. Underlying pneumonia not excluded. Findings are stable.
[2019-04-22 08:18] LABS: Band Neutrophils % 5 %; Eosinophils # (M) 0.23 k/uL (0-0.7); Lymphocytes # (M) 1.36 k/uL (1.0-4.8); Metamyelocytes # (M) 0.34 k/uL (0); Metamyelocytes % 3 %; Monocytes # (M) 1.24 k/uL (0-1.0); Myelocytes # (M) 1.24 k/uL (0); Myelocytes % 11 %; Neutrophils % (M) 57 %; Nucleated Red Blood Cells 0 /100 WBC (0-0); Total Cells Counted 200
[2019-04-22 08:23] LABS: Poikilocytosis (M) Present
[2019-04-22] MEDS: BUDESONIDE 1 MG/2 ML NEBU INHALATION SCH ×2 (08:23→19:44)
[2019-04-22 08:24] LABS: Promyelocytes # (M) 0.23 k/uL (0); Promyelocytes % 2 %
[2019-04-22] MEDS: metroNIDAZOLE-NS PMX 500 MG in SALINE 1 100ML.BAG IVPB SCH ×3 (09:16→23:52)
[2019-04-22] MEDS: CEFEPIME 2 GM in SODIUM CHLORIDE 0.9% 100 ML IVPB SCH (09:19)
[2019-04-22] MEDS: PANTOPRAZOLE 40 MG TABLET PO SCH (09:23)
[2019-04-22] MEDS: AMIODARONE 200 MG TAB PO SCH (09:23)
[2019-04-22] MEDS: ASPIRIN 81 MG PO SCH (09:23)
[2019-04-22] MEDS: METOPROLOL TARTRATE 12.5 MG TAB PO SCH ×2 (09:23→20:43)
[2019-04-22] MEDS: METOLAZONE 5 MG TAB PO SCH ×2 (09:24→23:53)
[2019-04-22] MEDS: FERROUS SULFATE 325 MG TAB PO SCH (09:24)
[2019-04-22] MEDS: CITALOPRAM HYDROBROMIDE 10 MG TAB PO SCH (09:24)
[2019-04-22] MEDS: NYSTATIN 100,000 UNIT/ML SUSP 500,000 UNIT/5 ML CUP PO SCH ×4 (09:24→20:44)
[2019-04-22] MEDS: CITALOPRAM HYDROBROMIDE 20 MG TAB PO SCH (09:24)
[2019-04-22] MEDS: APIXABAN 5 MG TAB PO SCH ×2 (09:24→20:43)
[2019-04-22 11:45] LABS: Glucose,Whole Blood 272 mg/dL (75-99)
--- NOTE | 2019-04-22 11:57 | P.PN ---
Subjective Progress Note Date: 04/22/19 Principal diagnosis: Acute coronary event This is a 74-year-old female patient was coronary artery disease and known chronic total occlusion of the LCx as well as known prior stenting of the LAD as well as history of morbid obesity who was admitted to the hospital with acute hypoxic respiratory failure. She underwent heart catheterization that revealed chronic total occlusion of the left circumflex and patent stent in the LAD, finding any change compared to before. The patient was intubated and subsequently extubated. She was seen this morning. Overall she is feeling better. She denies any chest pain or chest discomfort. On examination she is hypervolemic with severe bilateral lower extremities edema. Currently she is on Lasix drip and the creatinine continues to be stable. Nephrology is on the case. Otherwise she is on oral anticoagulation regarding paroxysmal atrial fibrillation. Objective - Vital Signs Vital signs: Vital Signs Temp 98.1 F 04/22/19 04:00 Pulse 72 04/22/19 08:34 Resp 20 04/22/19 04:00 BP 141/62 04/22/19 04:00 Pulse Ox 100 04/22/19 04:00 Intake & Output 04/21/19 04/22/19 04/22/19 18:59 06:59 18:59 Intake Total 892.167 152.666 331.5 Output Total 1250 1500 Balance -357.833 -1347.334 331.5 Weight 169 kg Intake: IV 270 Cefepime 2 gm In Sodium 100 Chloride 0.9% 100 ml @ 200 mls/hr IVPB DAILY [facility] Rx#:[id number] FUROSEMIDE 70 metroNIDAZOLE-NS PMX 500 100 mg In Saline 1 100ml.bag @ 100 mls/hr IVPB Q8HR [facility] Rx#:[id number] Intake, IV Titration 102.167 152.666 25.5 Amount Furosemide 100 mg In 102.167 152.666 25.5 Sodium Chloride 0.9% 90 ml @ 15 MG/HR 15 mls/hr IV .Q6H40M [facility] Rx#: [id number] Oral 520 306 Output: Urine 1250 1500 Other: Voiding Method Indwelling Catheter Indwelling Catheter # Voids 1 # Bowel Movements 0 ABP, PAP, CO, CI - Last Documented Arterial Blood Pressure 81/52 - Constitutional General appearance: Present: no acute distress - Respiratory Respiratory: bilateral: diminished - Cardiovascular Rhythm: regular Heart sounds: normal: S1, S2 - Labs CBC & Chem 7: 04/22/19 06:03 04/22/19 06:03 Labs: Abnormal Lab Results - Last 24 Hours (Table) 04/21/19 04/21/19 04/21/19 Range/Units 12:01 16:36 19:58 WBC (3.8-10.6) k/uL RBC (3.80-5.40) m/uL Hgb (11.4-16.0) gm/dL Hct (34.0-46.0) % MCV (80.0-100.0) fL MCHC (31.0-37.0) g/dL Monocytes # (Manual) (0-1.0) k/uL Metamyelocytes # (Man) (0) k/uL Myelocytes # (Manual) (0) k/uL Promyelocytes # (Man) (0) k/uL Carbon Dioxide (22-30) mmol/L BUN (7-17) mg/dL Creatinine (0.52-1.04) mg/dL Glucose (74-99) mg/dL POC Glucose (mg/dL) 292 H 283 H 245 H (75-99) mg/dL AST (14-36) U/L Alkaline Phosphatase (38-126) U/L Total Protein (6.3-8.2) g/dL Albumin (3.5-5.0) g/dL 04/22/19 04/22/19 04/22/19 Range/Units 06:03 06:03 06:27 WBC 11.3 H (3.8-10.6) k/uL RBC 2.64 L (3.80-5.40) m/uL Hgb 8.4 L (11.4-16.0) gm/dL Hct 27.9 L (34.0-46.0) % MCV 105.8 H (80.0-100.0) fL MCHC 30.2 L (31.0-37.0) g/dL Monocytes # (Manual) 1.24 H (0-1.0) k/uL Metamyelocytes # (Man) 0.34 H (0) k/uL Myelocytes # (Manual) 1.24 H (0) k/uL Promyelocytes # (Man) 0.23 H (0) k/uL Carbon Dioxide 37 H (22-30) mmol/L BUN 39 H (7-17) mg/dL Creatinine 1.36 H (0.52-1.04) mg/dL Glucose 157 H (74-99) mg/dL POC Glucose (mg/dL) 180 H (75-99) mg/dL AST 12 L (14-36) U/L Alkaline Phosphatase 34 L (38-126) U/L Total Protein 4.7 L (6.3-8.2) g/dL Albumin 2.9 L (3.5-5.0) g/dL 04/22/19 Range/Units 11:44 WBC (3.8-10.6) k/uL RBC (3.80-5.40) m/uL Hgb (11.4-16.0) gm/dL Hct (34.0-46.0) % MCV (80.0-100.0) fL MCHC (31.0-37.0) g/dL Monocytes # (Manual) (0-1.0) k/uL Metamyelocytes # (Man) (0) k/uL Myelocytes # (Manual) (0) k/uL Promyelocytes # (Man) (0) k/uL Carbon Dioxide (22-30) mmol/L BUN (7-17) mg/dL Creatinine (0.52-1.04) mg/dL Glucose (74-99) mg/dL POC Glucose (mg/dL) 272 H (75-99) mg/dL AST (14-36) U/L Alkaline Phosphatase (38-126) U/L Total Protein (6.3-8.2) g/dL Albumin (3.5-5.0) g/dL Assessment and Plan Assessment: Assessment #1 coronary artery disease as described above #2 fluid overload/anasarca #3 paroxysmal atrial fibrillation #4 morbid obesity #5 multiple comorbid conditions Plan #1 continue the IV Lasix. Nephrology is on the case #2 continue monitor the kidney function and electrolytes #3 continue oral anticoagulation #4 follow-up with the patient
[2019-04-22] MEDS: traMADol 50 MG TAB PO PRN ×2 (12:05→23:52)
--- NOTE | 2019-04-22 12:36 | P.PN ---
Subjective Patient is seen in follow-up for acute kidney injury. She has undergone 2 treatments of hemodialysis so far. Last treatment was April 10. Dialysis catheter has been discontinued. Currently resting in bed. She is maintained on Lasix drip and metolazone. Urine output documented is 2.7 L in the last 24 hours. She is on thickened liquid diet and is not eating much. Vital signs are stable - currently on Levophed. General: The patient appeared well nourished and normally developed. HEENT: Head exam is unremarkable. Neck is without jugular venous distension. LUNGS: Lungs are clear to auscultation and percussion. Breath sounds decreased. HEART: Rate and Rhythm are regular. First and second heart sounds normal. No murmurs, rubs or gallops. ABDOMEN: Abdominal exam reveals normal bowel sounds. Obese. EXTREMITITES: 2+ edema. Objective - Vital Signs Vital signs: Vital Signs Temp 98.1 F 04/22/19 04:00 Pulse 72 04/22/19 08:34 Resp 20 04/22/19 04:00 BP 141/62 04/22/19 04:00 Pulse Ox 100 04/22/19 04:00 Intake & Output 04/21/19 04/22/19 04/22/19 18:59 06:59 18:59 Intake Total 892.167 152.666 331.5 Output Total 1250 1500 Balance -357.833 -1347.334 331.5 Weight 169 kg Intake: IV 270 Cefepime 2 gm In Sodium 100 Chloride 0.9% 100 ml @ 200 mls/hr IVPB DAILY [facility] Rx#:[id number] FUROSEMIDE 70 metroNIDAZOLE-NS PMX 500 100 mg In Saline 1 100ml.bag @ 100 mls/hr IVPB Q8HR [facility] Rx#:[id number] Intake, IV Titration 102.167 152.666 25.5 Amount Furosemide 100 mg In 102.167 152.666 25.5 Sodium Chloride 0.9% 90 ml @ 15 MG/HR 15 mls/hr IV .Q6H40M [facility] Rx#: [id number] Oral 520 306 Output: Urine 1250 1500 Other: Voiding Method Indwelling Catheter Indwelling Catheter # Voids 1 # Bowel Movements 0 ABP, PAP, CO, CI - Last Documented Arterial Blood Pressure 81/52 - Labs CBC & Chem 7: 04/22/19 06:03 04/22/19 06:03 Labs: Abnormal Lab Results - Last 24 Hours (Table) 04/21/19 04/21/19 04/22/19 Range/Units 16:36 19:58 06:03 WBC (3.8-10.6) k/uL RBC (3.80-5.40) m/uL Hgb (11.4-16.0) gm/dL Hct (34.0-46.0) % MCV (80.0-100.0) fL MCHC (31.0-37.0) g/dL Monocytes # (Manual) (0-1.0) k/uL Metamyelocytes # (Man) (0) k/uL Myelocytes # (Manual) (0) k/uL Promyelocytes # (Man) (0) k/uL Carbon Dioxide 37 H (22-30) mmol/L BUN 39 H (7-17) mg/dL Creatinine 1.36 H (0.52-1.04) mg/dL Glucose 157 H (74-99) mg/dL POC Glucose (mg/dL) 283 H 245 H (75-99) mg/dL AST 12 L (14-36) U/L Alkaline Phosphatase 34 L (38-126) U/L Total Protein 4.7 L (6.3-8.2) g/dL Albumin 2.9 L (3.5-5.0) g/dL 04/22/19 04/22/19 04/22/19 Range/Units 06:03 06:27 11:44 WBC 11.3 H (3.8-10.6) k/uL RBC 2.64 L (3.80-5.40) m/uL Hgb 8.4 L (11.4-16.0) gm/dL Hct 27.9 L (34.0-46.0) % MCV 105.8 H (80.0-100.0) fL MCHC 30.2 L (31.0-37.0) g/dL Monocytes # (Manual) 1.24 H (0-1.0) k/uL Metamyelocytes # (Man) 0.34 H (0) k/uL Myelocytes # (Manual) 1.24 H (0) k/uL Promyelocytes # (Man) 0.23 H (0) k/uL Carbon Dioxide (22-30) mmol/L BUN (7-17) mg/dL Creatinine (0.52-1.04) mg/dL Glucose (74-99) mg/dL POC Glucose (mg/dL) 180 H 272 H (75-99) mg/dL AST (14-36) U/L Alkaline Phosphatase (38-126) U/L Total Protein (6.3-8.2) g/dL Albumin (3.5-5.0) g/dL Assessment and Plan Plan: Assessment: 1. Acute kidney injury secondary to ATN secondary to hypotension and bradycardia. Creatinine 5.6 on admission. Baseline near 1. No proteinuria on UA. Kidney ultrasound revealed small left kidney without any hydronephrosis. Renal function is improved. Creatinine fairly stable at 1.36 today. 2. Hyperkalemia secondary to acute kidney injury and further worsened with the use of lisinopril. Improved postdialysis. 3. Hyponatremia secondary to acute kidney injury. Resolved. 4. Insulin-dependent diabetes mellitus. 5. Hypotension, off Levophed. 6. Bradycardia secondary to hyperkalemia s/p dopamine. Cardiology following. 7. Volume overload. 8. Metabolic acidosis secondary to acute kidney injury. Resolved. Plan: Maintain Lasix drip at 15 mL an hour. Increase metolazone to 5 mg twice daily. Continue to monitor renal function and urine output. Repeat electrolytes in the morning.
--- NOTE | 2019-04-22 13:49 | P.PN ---
Subjective Progress Note Date: 04/22/19 this is 74 showed female admitted with acute hypoxic respiratory failure, ventricular tachycardia,atrial fibrillation with RVR, CHF, status post mechanical ventilation, anasarca and multiple other medical issues.vital signs stable, maintaining O2 sats in the 90s on2 L nasal cannula.no further arrhythmias reported. Afebrile,WBC 25.2,urine culture negative, blood cultures negative,maintained on empiric antibiotics of Levaquin.chest x-rayconsistent with fluid overload, reporting bilateral pleural effusions with cardiomegaly and bibasilar infiltrate, diffuse interstitial pattern.maintained on Lasix drip, diuresing well with 24-hour I&O reflecting a negative fluid balance. Creatinine 1.5. Currently requiring 7 mics of Levophed. PICC line placed. Maintained on heparin drip. Telemetry sinus rhythm, on beta tish and oral amiodarone. Speech therapy evaluation pending. 04/16/2019 maintained on Lasix and heparin drips.diuresing well with 24-hour I&O reflecting a negative fluid balance. Positive bowel movement today.Sensorium slowly improving -More alert today, answering simple questions, conversing. Reports generalized diffuse discomfort from bed. Levophed weaned off yesterday. Continues on Levaquin, Afebrile, leukocytosis improving. Dialysis catheter removed yesterday. Renal function improving, creatinine 1.3. Currently NPO with significant generalized weakness Sodium improving, 136. Chest x-ray stable reporting similar findings to prior of bibasilar effusions, atelectasis, pneumonia/edema with possible underlying pulmonary artery hypertension. 04/17/19 Lasix drip converted to IV push. Diuresing well with 24-hour I&O reflecting a negative fluid balance. Creatinine 1.25. Magnesium 1.2-magnesium replacement ordered. Patient passed swallow evaluation. Maintained on heparin drip. Evaluated by infectious disease, antibiotics adjusted. Afebrile, WBC 19.1. Chest x-ray reporting persistent bilateral hilar enlargement with cardiomegaly, bilateral consolidation/pleural effusion,diffuse interstitial pattern,. 04/22/2019 Lasix drip initiated yesterday, CXR reporting reporting persistent prominence of hilum, pulmonary arterial hypertension, bibasilar infiltrate, diffuse interstitial pattern. Creatinine stable 1.36 Denies chest pain, palpitations. Objective - Vital Signs Vital signs: Vital Signs Temp 98.1 F 04/22/19 04:00 Pulse 69 04/22/19 04:00 Resp 20 04/22/19 04:00 BP 141/62 04/22/19 04:00 Pulse Ox 100 04/22/19 04:00 Intake & Output 04/21/19 04/22/19 04/22/19 18:59 06:59 18:59 Intake Total 892.167 152.666 306 Output Total 1250 1500 Balance -357.833 -1347.334 306 Weight 169 kg Intake: IV 270 Cefepime 2 gm In Sodium 100 Chloride 0.9% 100 ml @ 200 mls/hr IVPB DAILY [facility] Rx#:[id number] FUROSEMIDE 70 metroNIDAZOLE-NS PMX 500 100 mg In Saline 1 100ml.bag @ 100 mls/hr IVPB Q8HR [facility] Rx#:[id number] Intake, IV Titration 102.167 152.666 Amount Furosemide 100 mg In 102.167 152.666 Sodium Chloride 0.9% 90 ml @ 15 MG/HR 15 mls/hr IV .Q6H40M [facility] Rx#: [id number] Oral 520 306 Output: Urine 1250 1500 Other: Voiding Method Indwelling Catheter Indwelling Catheter # Voids 1 # Bowel Movements 0 ABP, PAP, CO, CI - Last Documented Arterial Blood Pressure 81/52 - Exam PHYSICAL EXAM: VITAL SIGNS: [as above] GENERAL: sitting up in bed, no acute distress HEENT: Conjunctivae normal. eyes normal. NECK: No JVD. No thyroid enlargement. No LNs CARDIOVASCULAR: S1, S2 regular.. No murmur RESPIRATION: Breath sounds diminished in the bases. No rhonchi or crackles. ABDOMEN: Soft, obese, nontender . No guarding. no masses palpable. Bowel sounds heard. LEGS: Diffuse lower extremity edema. Multiple bruising on all extremities. PSYCHIATRY: Alert and oriented X2, mood and affect normal. NERVOUS SYSTEM: Cranial N 2-12 grossly normal. Moves all 4 limbs. Diffuse wea kness, No focal deficits. Skin: No rash, Microbiology 04/09/19 12:40 Blood Blood Culture - Final No Growth after 144 hours 04/09/19 15:15 Urine,Voided Urine Culture - Final - Labs CBC & Chem 7: 04/22/19 06:03 04/22/19 06:03 Labs: Abnormal Lab Results - Last 24 Hours (Table) 04/21/19 04/21/19 04/21/19 Range/Units 12:01 16:36 19:58 WBC (3.8-10.6) k/uL RBC (3.80-5.40) m/uL Hgb (11.4-16.0) gm/dL Hct (34.0-46.0) % MCV (80.0-100.0) fL MCHC (31.0-37.0) g/dL Carbon Dioxide (22-30) mmol/L BUN (7-17) mg/dL Creatinine (0.52-1.04) mg/dL Glucose (74-99) mg/dL POC Glucose (mg/dL) 292 H 283 H 245 H (75-99) mg/dL AST (14-36) U/L Alkaline Phosphatase (38-126) U/L Total Protein (6.3-8.2) g/dL Albumin (3.5-5.0) g/dL 04/22/19 04/22/19 04/22/19 Range/Units 06:03 06:03 06:27 WBC 11.3 H (3.8-10.6) k/uL RBC 2.64 L (3.80-5.40) m/uL Hgb 8.4 L (11.4-16.0) gm/dL Hct 27.9 L (34.0-46.0) % MCV 105.8 H (80.0-100.0) fL MCHC 30.2 L (31.0-37.0) g/dL Carbon Dioxide 37 H (22-30) mmol/L BUN 39 H (7-17) mg/dL Creatinine 1.36 H (0.52-1.04) mg/dL Glucose 157 H (74-99) mg/dL POC Glucose (mg/dL) 180 H (75-99) mg/dL AST 12 L (14-36) U/L Alkaline Phosphatase 34 L (38-126) U/L Total Protein 4.7 L (6.3-8.2) g/dL Albumin 2.9 L (3.5-5.0) g/dL Assessment and Plan Assessment: Acute hypoxic respiratory failure secondary to ventricular tachycardia followed by atrial fibrillation with RVR , requiring mechanical ventilation. And shocking about 6 times. Status post mechanical ventilation Hypotension, status post pressor dependent Leukocytosis, afebrile, urine and blood cultures negative, on empiric antibiotics Acute metabolic encephalopathy, multifactorial, secondary to all the above Symptomatic bradycardia with hypotension secondary to hyperkalemia, Acute kidney injury secondary to acute tubular necrosis ,hypotension with bradycardia. Hyperkalemia secondary to acute kidney injury. Insulin dependent diabetes mellitus. History of coronary artery disease and previous stent placement Irritable bowel syndrome Chronic urinary incontinence History of cervical cancer and previous hysterectomy History of partial parathyroidectomy History of benign essential hypertension Chronic diastolic congestive heart failure Status post cardiac catheterization, reporting no significant obstructive CAD. Morbid obesity, BMI 73.7 Plan: Continue current medication regime ,monitoring and symptomatic treatment. Maintain Lasix drip, metolazone as per nephrology. Close monitoring of renal function with repeat labs ordered for a.m. continue on cefepime, Flagyl as per ID. Oral Anticoagulation as per cardiology. Prognosis guarded given multiple complex medical issues. The impression and plan of care has been dictated as directed. : I performed a history and examination of this patient, discussed the same with the dictator. I agree with the dictator's note ,documented as a scribe. Any additional findings or plans will be noted.
--- NOTE | 2019-04-22 15:50 | P.PN ---
Subjective Progress Note Date: 04/22/19 On today's evaluation of 04/22/2019 the patient is awake and alert and she follows commands and answering his ashes appropriately. She is been hospitalized for an acute hypoxic respiratory failure. She also had CHF with diastolic heart failure and secondary pulmonary hypertension. PA pressures of been quite elevated. She had A. fib RVR and current rhythm is sinus. She had developed significant edema in lower extremities bilaterally which is still present and the patient is being diuresis with Lasix drip at 10 mg an hour and this was increased up to 50 mg today and the patient is also on Zaroxolyn. The creatinine is 1.3 and the patient is a negative fluid balance. Chest x-ray still showing pulmonary edema/CHF. The patient is on IV fluid at 10 mL an hour. Creatinine is stable at 1.3. PICC line is in place. No pressors for now. Cardiology on the case. Nephrology also on the case. No fever. No leukocytosis and the white cell count is improved and the patient is also covered with empiric antibiotic coverage. She did pass a swallow evaluation. No other significant events over the past 24 hours. She is a [facility] resident. Weight is down as the patient is a negative fluid balance for now. Objective - Vital Signs Vital signs: Vital Signs Temp 97.9 F 04/22/19 12:00 Pulse 76 04/22/19 12:00 Resp 18 04/22/19 12:00 BP 138/64 04/22/19 12:00 Pulse Ox 92 L 04/22/19 12:00 Intake & Output 04/21/19 04/22/19 04/22/19 18:59 06:59 18:59 Intake Total 892.167 629.712 2794.5 Output Total 1250 1500 900 Balance -357.833 -1347.334 172.5 Weight 169 kg Intake: IV 270 435 0.9 NS 160 Cefepime 2 gm In Sodium 100 100 Chloride 0.9% 100 ml @ 200 mls/hr IVPB DAILY [facility] Rx#:[id number] FUROSEMIDE 70 75 metroNIDAZOLE-NS PMX 500 100 100 mg In Saline 1 100ml.bag @ 100 mls/hr IVPB Q8HR [facility] Rx#:[id number] Intake, IV Titration 102.167 152.666 25.5 Amount Furosemide 100 mg In 102.167 152.666 25.5 Sodium Chloride 0.9% 90 ml @ 15 MG/HR 15 mls/hr IV .Q6H40M [facility] Rx#: [id number] Oral 520 612 Output: Urine 1250 1500 900 Other: Voiding Method Indwelling Catheter Indwelling Catheter Indwelling Catheter # Voids 1 1 # Bowel Movements 0 ABP, PAP, CO, CI - Last Documented Arterial Blood Pressure 81/52 - Exam GENERAL EXAM: Awake and alert 74-year-old obese female, 2 L of oxygen with pulse ox of 95%, comfortable in no apparent distress. HEAD: Normocephalic/atraumatic. EYES: Normal reaction of pupils, equal size. Conjunctiva pink, sclera white. NOSE: Clear with pink turbinates. THROAT: No erythema or exudates. NECK: No masses, no JVD, no thyroid enlargement, no adenopathy. CHEST: No chest wall deformity. Symmetrical expansion. LUNGS: Diminished air entry, crackles in the bilateral posterior bases. CVS: Regular rate and rhythm, normal S1 and S2, no gallops, no murmurs, no rubs ABDOMEN: Soft, obese, with a significant amount of abdominal wall edema. No hepatosplenomegaly, normal bowel sounds, no guarding or rigidity. EXTREMITIES: No clubbing, no cyanosis, 2+ pulses and upper and lower extremities. Significant amount of upper and lower extremity edema anasarca, and edema of abdominal wall MUSCULOSKELETAL: Muscle strength and tone normal. SPINE: No scoliosis or deformity SKIN: Groin folds positive for redness, moisture and rash CENTRAL NERVOUS SYSTEM: Alert and oriented -3, tone is normal in all 4 extremities. - Labs CBC & Chem 7: 04/22/19 06:03 04/22/19 06:03 Labs: Abnormal Lab Results - Last 24 Hours (Table) 04/21/19 04/21/19 04/22/19 Range/Units 16:36 19:58 06:03 WBC (3.8-10.6) k/uL RBC (3.80-5.40) m/uL Hgb (11.4-16.0) gm/dL Hct (34.0-46.0) % MCV (80.0-100.0) fL MCHC (31.0-37.0) g/dL Monocytes # (Manual) (0-1.0) k/uL Metamyelocytes # (Man) (0) k/uL Myelocytes # (Manual) (0) k/uL Promyelocytes # (Man) (0) k/uL Carbon Dioxide 37 H (22-30) mmol/L BUN 39 H (7-17) mg/dL Creatinine 1.36 H (0.52-1.04) mg/dL Glucose 157 H (74-99) mg/dL POC Glucose (mg/dL) 283 H 245 H (75-99) mg/dL AST 12 L (14-36) U/L Alkaline Phosphatase 34 L (38-126) U/L Total Protein 4.7 L (6.3-8.2) g/dL Albumin 2.9 L (3.5-5.0) g/dL 04/22/19 04/22/19 04/22/19 Range/Units 06:03 06:27 11:44 WBC 11.3 H (3.8-10.6) k/uL RBC 2.64 L (3.80-5.40) m/uL Hgb 8.4 L (11.4-16.0) gm/dL Hct 27.9 L (34.0-46.0) % MCV 105.8 H (80.0-100.0) fL MCHC 30.2 L (31.0-37.0) g/dL Monocytes # (Manual) 1.24 H (0-1.0) k/uL Metamyelocytes # (Man) 0.34 H (0) k/uL Myelocytes # (Manual) 1.24 H (0) k/uL Promyelocytes # (Man) 0.23 H (0) k/uL Carbon Dioxide (22-30) mmol/L BUN (7-17) mg/dL Creatinine (0.52-1.04) mg/dL Glucose (74-99) mg/dL POC Glucose (mg/dL) 180 H 272 H (75-99) mg/dL AST (14-36) U/L Alkaline Phosphatase (38-126) U/L Total Protein (6.3-8.2) g/dL Albumin (3.5-5.0) g/dL Assessment and Plan Plan: #1. Acute hypoxic respiratory failure secondary to ventricular tachycardia, A. fib with RVR, congestive heart failure, requiring intubation and mechanical ventilation. Patient was intubated on 04/12/2019 and successfully weaned and extubated on 04/14/2019. Patient is status post synchronized cardioversion 6 with successful conversion to sinus rhythm, cardiac catheterization did not show significant obstructive coronary artery disease, currently on oxygen 3 L per minute nasal cannula. Her most recent chest x-ray was earlier this morning and it showed CHF and the findings are essentially stable compared to the earlier studies. The patient remains on a Lasix drip at 10 mg an hour. Her proBNP level is 14,000. Echocardiogram that was done showed an ejection fraction of 50-55% consistent with diastolic heart failure. She has severe pulmonary hypertension with a PA pressure of 72. She also has moderate concentric left ventricular hypertrophy. The patient is a negative fluid balance of 1700 #2. Acute exacerbation of congestive heart failure with preserved ventricular systolic function and EF of 50-55% based continues with anasarca with significant edema of the extremities. Continued on a Lasix drip at 10 mg per hour. #3. Symptomatic bradycardia with hypotension related to hyperkalemia on presentation, resolved #4. Acute kidney injury secondary to acute tubular necrosis and hypotension and bradycardia, improving him a creatinine is stable at 1.3. #5. Leukocytosis, patient is empirically covered with cefepime and vancomycin has had no fever. Urine and blood cultures have shown no growth, and the white cell count is improved and is down to 11.3 #6. Hyperkalemia, resolved #7. Insulin dependent diabetes mellitus #8. History of coronary artery disease and previous stent placement #9. Irritable bowel syndrome #10. Chronic urinary incontinence #11. History of cervical cancer previous hysterectomy #12. History of partial parathyroidectomy #13. History of benign essential hypertension #14. Chronic diastolic CHF #15. Status post cardiac catheterization no significant coronary artery disease #16. Metabolic encephalopathy, improved #17 morbid obesity with a BMI of 70.4 Plan Attempt to wean down the FiO2 as tolerated to maintain a saturation above 90% Continue Nasonex for another 24 hours in the form of a drip 10 mg an hour renal function is stable and the creatinine is at 1.3. Noted the patient is also on Zaroxolyn Management of antibiotics per ID. The patient remains on a combination of cefepime and Flagyl and vancomycin suspecting an abdominal source of sepsis.
[2019-04-22 16:51] LABS: Glucose,Whole Blood 265 mg/dL (75-99)
[2019-04-22] MEDS: NOREPINEPHRINE 32 MG in SODIUM CHLORIDE 0.9% 218 ML IV SCH (18:46)
[2019-04-22 20:18] LABS: Glucose,Whole Blood 203 mg/dL (75-99)
[2019-04-22] MEDS: ONDANSETRON 4 MG/2 ML VIAL IVP PRN (20:43)
[2019-04-22] MEDS: CHOLECALCIFEROL 1,000 UNIT TAB PO SCH (20:43)
[2019-04-22] MEDS: ATORVASTATIN 40 MG TAB PO SCH (20:43)
[2019-04-22] MEDS: ARIPiprazole 5 MG TAB PO SCH (20:43)
[2019-04-22] MEDS: INSULIN DETEMIR (LEVEMIR) 100 UNIT/ML SYR SQ SCH (20:44)
[2019-04-23] MEDS: FUROSEMIDE 100 MG in SODIUM CHLORIDE 0.9% 90 ML IV SCH ×4 (00:11→20:16)
--- NOTE | 2019-04-23 04:50 | PN ---
PROGRESS NOTE DATE OF SERVICE: 04/22/2019 REASON FOR FOLLOWUP: Leukocytosis, abdominal source. INTERVAL HISTORY: The patient is afebrile. She has been breathing comfortably. Denies having any chest pain or any cough. No nausea or vomiting. No abdominal pain or any diarrhea. PHYSICAL EXAMINATION: Blood pressure is 135/62 with a pulse of 65, temperature of 98.2. She is 99% on 3 L nasal cannula. General description is an elderly female, lying in bed in no distress. RESPIRATORY SYSTEM: Unlabored breathing, clear to auscultation anteriorly. HEART: S1, S2. Regular rate and rhythm. ABDOMEN: Soft, no tenderness. LABS: Hemoglobin 8.4, white count 11.3, BUN of 13, and creatinine 1.36. DIAGNOSTIC IMPRESSION AND PLAN: Patient with leukocytosis likely abdomen source so far culture has been negative for resistant pathogen. The patient is covered with cefepime and Flagyl. Will go ahead and discontinue the vancomycin and will monitor the patient's clinical course closely. Continue supportive care. MMODL / IJN: [id number] /
[2019-04-23] MEDS ORDERED: VANCOMYCIN 2,000 MG in SODIUM CHLORIDE 0.9% 500 ML 500 ML IVPB ONE (06:00)
[2019-04-23] MEDS: GABAPENTIN 100 MG CAP PO SCH ×2 (06:19→20:34)
[2019-04-23] MEDS: MIDODRINE 5 MG TAB PO SCH ×3 (06:19→16:27)
[2019-04-23] MEDS: INSULIN ASPART (NovoLOG) 100 UNIT/ML VIAL SQ SCH ×7 (06:24→20:34)
[2019-04-23 06:53] LABS: Magnesium 1.5 mg/dL (1.6-2.3); Potassium 4.2 mmol/L (3.5-5.1)
[2019-04-23] MEDS: metroNIDAZOLE-NS PMX 500 MG in SALINE 1 100ML.BAG IVPB SCH ×3 (08:47→23:20)
[2019-04-23] MEDS: CEFEPIME 2 GM in SODIUM CHLORIDE 0.9% 100 ML IVPB SCH (08:48)
[2019-04-23] MEDS: PANTOPRAZOLE 40 MG TABLET PO SCH (08:48)
[2019-04-23] MEDS: APIXABAN 5 MG TAB PO SCH ×2 (08:48→20:34)
[2019-04-23] MEDS: ASPIRIN 81 MG PO SCH (08:48)
[2019-04-23] MEDS: METOPROLOL TARTRATE 12.5 MG TAB PO SCH ×2 (08:48→20:33)
[2019-04-23] MEDS: AMIODARONE 200 MG TAB PO SCH (08:48)
[2019-04-23] MEDS: CITALOPRAM HYDROBROMIDE 10 MG TAB PO SCH (08:48)
[2019-04-23] MEDS: FERROUS SULFATE 325 MG TAB PO SCH (08:49)
[2019-04-23] MEDS: METOLAZONE 5 MG TAB PO SCH ×2 (08:49→20:33)
[2019-04-23] MEDS: CITALOPRAM HYDROBROMIDE 20 MG TAB PO SCH (08:49)
[2019-04-23] MEDS: NYSTATIN 100,000 UNIT/ML SUSP 500,000 UNIT/5 ML CUP PO SCH ×4 (08:50→20:34)
[2019-04-23] MEDS: BUDESONIDE 1 MG/2 ML NEBU INHALATION SCH ×2 (08:58→19:03)
--- NOTE | 2019-04-23 10:53 | P.PN ---
Subjective Patient is seen in follow-up for acute kidney injury. She has undergone 2 treatments of hemodialysis so far. Last treatment was April 10. Dialysis catheter has been discontinued. Currently resting in bed. She is maintained on Lasix drip and metolazone. Urine output documented is 1.5 L in the last 24 hours. She is on thickened liquid diet and is not eating much. Vital signs are stable - currently on Levophed. General: The patient appeared well nourished and normally developed. HEENT: Head exam is unremarkable. Neck is without jugular venous distension. LUNGS: Lungs are clear to auscultation and percussion. Breath sounds decreased. HEART: Rate and Rhythm are regular. First and second heart sounds normal. No murmurs, rubs or gallops. ABDOMEN: Abdominal exam reveals normal bowel sounds. Obese. EXTREMITITES: 2+ edema. Objective - Vital Signs Vital signs: Vital Signs Temp 97.8 F 04/23/19 08:00 Pulse 68 04/23/19 09:07 Resp 16 04/23/19 08:00 BP 115/47 04/23/19 08:00 Pulse Ox 98 04/23/19 08:00 Intake & Output 04/22/19 04/23/19 04/23/19 18:59 06:59 18:59 Intake Total 1551.667 131.166 Output Total 900 600 Balance 651.667 -468.834 Weight 185 kg Intake: IV 435 0.9 NS 160 Cefepime 2 gm In Sodium 100 Chloride 0.9% 100 ml @ 200 mls/hr IVPB DAILY [facility] Rx#:[id number] FUROSEMIDE 75 metroNIDAZOLE-NS PMX 500 100 mg In Saline 1 100ml.bag @ 100 mls/hr IVPB Q8HR [facility] Rx#:[id number] Intake, IV Titration 104.667 131.166 Amount Furosemide 100 mg In 104.667 131.166 Sodium Chloride 0.9% 90 ml @ 15 MG/HR 15 mls/hr IV .Q6H40M [facility] Rx#: [id number] Oral 1012 Output: Urine 900 600 Uretheral (Solitario) 200 Other: Voiding Method Indwelling Catheter Indwelling Catheter # Voids 1 ABP, PAP, CO, CI - Last Documented Arterial Blood Pressure 81/52 - Labs CBC & Chem 7: 04/22/19 06:03 04/23/19 05:57 Labs: Abnormal Lab Results - Last 24 Hours (Table) 04/22/19 04/22/19 04/22/19 Range/Units 11:44 16:49 20:16 Carbon Dioxide (22-30) mmol/L BUN (7-17) mg/dL Creatinine (0.52-1.04) mg/dL Glucose (74-99) mg/dL POC Glucose (mg/dL) 272 H 265 H 203 H (75-99) mg/dL Magnesium (1.6-2.3) mg/dL 04/23/19 Range/Units 05:57 Carbon Dioxide 31 H (22-30) mmol/L BUN 41 H (7-17) mg/dL Creatinine 1.26 H (0.52-1.04) mg/dL Glucose 177 H (74-99) mg/dL POC Glucose (mg/dL) (75-99) mg/dL Magnesium 1.5 L (1.6-2.3) mg/dL Assessment and Plan Plan: Assessment: 1. Acute kidney injury secondary to ATN secondary to hypotension and bradycardia. Creatinine 5.6 on admission. Baseline near 1. No proteinuria on UA. Kidney ultrasound revealed small left kidney without any hydronephrosis. Renal function is improved. Creatinine fairly stable at 1.26 today. 2. Hyperkalemia secondary to acute kidney injury and further worsened with the use of lisinopril. Improved postdialysis. 3. Hyponatremia secondary to acute kidney injury. Resolved. 4. Insulin-dependent diabetes mellitus. 5. Hypotension, off Levophed. 6. Bradycardia secondary to hyperkalemia s/p dopamine. Cardiology following. 7. Volume overload. 8. Metabolic acidosis secondary to acute kidney injury. Resolved. 9. Hypomagnesemia secondary to diuresis. Plan: Maintain Lasix drip at 15 mL an hour. Maintain metolazone. Due to significant volume overload, I discussed with her ultrafiltration for fluid removal. Patient is in agreement. Consult vascular surgery for temporary dialysis catheter placement. Plan for ultrafiltration today and again tomorrow. Continue to monitor renal function and urine output. Repeat electrolytes in the morning. Replace magnesium.
[2019-04-23 11:56] LABS: Glucose,Whole Blood 262 mg/dL (75-99)
--- NOTE | 2019-04-23 11:58 | P.PN ---
Subjective Progress Note Date: 04/23/19 Principal diagnosis: Symptomatic bradycardia, hypotension and hyperkalemia This is a 74-year-old female with known history of multiple medical problems including diastolic congestive heart failure, hypertension, diabetes, coronary artery disease and previous stent placement, chronic low back pain, urinary incontinence, irritable bowel syndrome, cervical cancer and previous hyst erectomy, patient was sent to the ER last night from the [facility] on the dexter with complaints of shortness of breath. Patient has been complaining of shortness of breath for the last 2-3 days. She was also complaining of right mid abdominal and right flank pain. She had no chest pain, no nausea no vomiting, no fever no chills no hemoptysis. Patient was feeling extremely tired and exhausted. Upon evaluation in the ER, patient was noted to be profoundly bradycardic, heart rate ranging between 40 and 60. Blood pressure on arrival was 76/61. Patient had a right femoral triple-lumen catheter placed by the ER physician, and she had fluid boluses at least 2 L were given in the form of 0.9 normal saline. Patient was placed on dopamine for her profound bradycardia, and she is presently on dopamine at 5 mcg/kg/m. Remained hypotensive, hence norepinephrine at 0.04 mcg/kg/m was added. Maintained on IV fluid at 100 mL/h, admitted to the ICU, and this consult was initiated. I evaluated the patient in the ICU, kept her on dopamine and norepinephrine, and she was seen by nephrology on consultation last night, patient underwent stat hemodialysis mostly because of her hyperkalemia and acute kidney injury. Reevaluated today on 04/11/2019, patient remains on norepinephrine at 0.04 mcg/kg/m, blood pressure remains marginal, hence a left radial arterial line was placed. Patient is off dopamine, she is in sinus rhythm, and no further episodes of bradycardia. She is alert oriented 3, according to the nurse she had intermittent episodes of confusion, but her mental status seems to be intact this morning. Chest x-ray showed cardiomegaly and interstitial edema with bibasilar atelectasis. Electrolytes are much improved potassium is down to 5.2 BUN is 51 creatinine 2.31, no plans for dialysis today. WBC count is 16.3 hemoglobin is 9.7. Patient denies any shortness of breath, she feels generally weak. Patient was reevaluated today on 04/12/2019. Patient developed sustained ventri cular tachycardia earlier this morning, patient was shocked about 6 times, she was given lidocaine and amiodarone as per cardiology at bedside, patient was intubated, and she was taken down for a cardiac catheterization by cardiology. I reviewed the ventilator settings, and I recommended tidal volume of 500, assist control rate of 20, FiO2 of 100% and PEEP of 5. ABG is pending. Cardiac catheterization report is pending but I was informed that she had no significant coronary artery disease to speak of. Chest x-ray showed bibasilar atelectasis, possibly infiltrates, patient may have developed some component of aspiration pneumonia. Labs today showed leukocytosis with WBC count of 22.9 hemoglobin 8.3, electrolytes are normal, BUN is 43 creatinine 2.0. Cardiology October he was concerned about the possibility of non-ST segment elevation myocardial infarction. Later on patient was noted to have atrial fibrillation with poorly controlled ventricular rate. And again her cardiac catheterization official report is pending Reevaluated today on 04/13/2019, patient remains intubated, on mechanical ventilation, her ventilator settings are assist control rate of 20 and I cut it down to 16 FiO2 is 40%, and I cut it down to 35%. Tidal volume is 500 remains the same and PEEP is at 5. Patient is requiring propofol at 50 mcg/kg/m, she is on norepinephrine at 0.05 mcg/kg/m. Amiodarone drip, Cardizem drip at 5 mg per hour. She is also on heparin. Her cardiac catheterization yesterday was basically unremarkable. Hence the head of marketing seems to be concerned about pulmonary embolism, clinically that is unlikely based on the clinical history, not to mention the patient has been on anticoagulation therapy all along since admission. At this point patient is not to get the CT of the chest, since the index of suspicion for pulmonary embolism is low and since her renal functioning is marginal. Would rather continue anticoagulation therapy and did not do a CT of the chest at this point. ABG today showed a pO2 of 133 pCO2 of 27 pH of 7.52 again her FiO2 was decreased down to 35%. Patient is sedated on propofol, and I plan to give the patient a sedation holiday, and hopefully assess mental status, no plans to wean and extubate at this point. Still concerned about her issue of an arrhythmia and recurrent episodes of ventricular tachycardia. Chest x-ray showed no significant interval change from before, there is vascular congestion and mild pulmonary edema with bibasilar atelectasis, doubt pneumonia Patient was reevaluated today on 04/24/2019 remains intubated, mechanically ventilated, but the settings are tidal volume of 500 assist control rate of 16 FiO2 of 35% and PEEP of 5. No ABG was done this morning, apparently her arterial line is nonfunctional. However the patient seems to be very comfortable, and she was given a weaning trial while I was at bedside. She had a relatively good weaning parameters, she had good tidal volume on pressure support of 8 and CPAP, her volume was around 450, her rate was in the high teens, and the patient was noted to be in no distress. 45 minutes on pressure support and CPAP were done, and I extubated the patient uneventfully. Chest x- ray continues to show some fluid overload, atelectasis at the bases, patient continues to be swollen and edematous, and now she is placed on Lasix drip as per nephrology. WBC count today is 25 hemoglobin is 9.3 remains on heparin with a PTT of 48.5. Electrolytes are normal, BUN is 30 creatinine is 1.42. No arrhythmias noted over the last 24 hours. And the patient is on minimal dose of norepinephrine at 0.03 mcg/kg/m. This would likely be discontinued postextubation On 04/15/2011 patient seen in follow-up in the intensive care unit, she is awake, remains very confused, at times she is calling out for help, appears to be in any acute distress, no signs of any respiratory distress, she is on 2 L of oxygen with pulse ox of 98%, she is afebrile, she remains on small amount of leukocyte at 8 mics per minute, maintenance IV fluids are 0.9 normal saline at a rate of 20 ML per hour, Lasix drip is at 10 mg per hour, and heparin per weight- based protocol. Remains in sinus rhythm on the monitor with a controlled rate, patient is receiving a combination of oral amiodarone, Lopressor, for recent history of ventricular tachycardia. No complaints of chest pain. She is rece iving midodrine for hypotension which we can increase to 10 mg 3 times daily. She remains on empiric antibiotics with Levaquin and vancomycin. There is no cough, no sputum production, blood and urine cultures have shown no growth so far. Today's labs have been reviewed, white blood cell count is trending up, 25.2 and today's labs, hemoglobin is 8.9, sodium is 132, demonstrates electrolytes were within normal limits, renal profile is relatively stable with BUN of 33 and creatinine of 1.5. Today's chest x-ray has been reviewed showing bilateral pleural effusions, cardiomegaly and bibasilar infiltrates, diffuse interstitial pattern. No fever or chills. Remains on Lasix infusion, the patie nt is only modestly in negative fluid balance, still has significant amount of fluid in his abdominal wall, and generalized anasarca. She still has a hemodialysis catheter in her left groin and his central line venous catheter in the right groin, patient has skin breakdown in the groin folds. Patient has not been able to pass a swallow evaluation, in her oral medications have been on hold and patient remains nothing by mouth until seen by speech therapy. On April 16 2019, patient is seen in follow-up in the intensive care unit, more awake and conversant on today's exam, answering simple questions, oriented to person and place, but is intermittently confused. Denies any acute distress, still mildly dyspneic with conversation, oxygenation is stable on 2 L of oxygen her pulse ox is 97%, patient has been afebrile. Hemodynamically patient has improved, and she was able to be weaned off the levo fed since yesterday. She remains on Lasix drip at 10 mg per hour, and heparin per weight-based protocol. Patient is diuresing, and she is in negative for thousand 586 mL fluid balance over the last 24 hours, Lyme status is improving, and patient is -6 kg in the last 24 hours. Today's labs have been reviewed, showing white blood cell count of 17.7, crit cytosis is improving, hemoglobin is 8.2, serum sodium is 136, the rest of electrolytes were within normal limits, renal profile is improving, with BUN 30 and creatinine is 1.3. Blood and urine culture remained negative, lung sounds are positive for end expiratory wheezing, today's chest x-ray was reviewed showing improved aeration at the right base, and improvement in the appearance of interstitial edema. Patient's hemodialysis catheter from the left groin and central line from the right coronary were removed yesterday, and patient had a PICC line inserted in the right upper extremity. On 04/17/2019 patient seen in follow-up in intensive care unit, she is lethargic on today's exam, but does open eyes and answer some simple questions, denies any acute distress, she is currently on nasal oxygen with a pulse ox of 96-98%, she's been afebrile, hemodynamically she remains stable, her levo fed has been on hold for last 48 hours, patient remains on Lasix drip at 10 mg per hour, heparin drip per weight-based protocol and 0.9 normal saline at a rate of 20 ML per hour. She is in -3115 mL fluid balance over the last 24 hours, still has quite significant generalized edema and weeping edema involving her lower extremities. Today's labs have been reviewed, showing white blood cell count of 19.1, hemoglobin of 8.3, serum sodium is 136, potassium 3.6, CO2 32, B1 is 29, creatinine is 1.25. Blood cultures and urine cultures have been negative thus far. Today's chest x-ray has been reviewed showing bilateral consolidation, pleural effusions, diffuse interstitial pattern. Patient will have her swallow evaluated again today, and has been nothing by mouth for last 3 days. On 04/18/2019 patient seen in follow-up in the intensive care unit, she is awake and alert, oriented 3, looking much more awake and alert, conversant, denies any acute distress, she states she still feels dyspneic, does not appear to be in any acute distress, she is on 2 L of oxygen with a pulse ox of 97%, she is afebrile, hemodynamically stable. 0.9 normal seen at a rate of 20 ML per hour, and heparin per weight-based protocol. Continues on IV Lasix at 60 mg every 8 hours, and patient is in -1919 and the fluid balance over the last 24 hours. Still has skin edema involving bilateral lower extremities, overall fluid volume status is improving, today's chest x-ray shows interstitial pattern, and bilateral hilar enlargement. Patient remains on cefepime and vancomycin. On 04/19/2019 patient seen in follow-up in the intensive care unit. She still states that she feels dyspneic, but no signs of any respiratory distress, patien t is on 2 L of oxygen the pulse ox of 97%, afebrile. Remains on Lasix 60 mg every 8 hours, she has been +493 and the fluid was over last 24 hours, however her weight is trending down, she is in -1.6 kg over the last 24 hours. Still has significant lower extremity edema. No new chest x-ray today. Today's labs have been reviewed, showing white blood cell count of 18.5, hemoglobin of 8.3, platelet count is 279, electrolytes are within normal limits, B1 is 37, and creatinine of 1.2. Vitamin level is 2.4, and patient will receive albumin infusions twice daily. Continues on modified diet. No nausea, no vomiting, no diarrhea. On antibiotics, and her cultures including blood and urine cultures are negative. No cough or congestion. Patient is on normal saline at a rate of 10 ML per hour, no other drips. On 04/23/2019 patient seen in follow-up on selective care unit. She is resting comfortably in bed. Still remains on Lasix infusion at 15 mg per hour, however she is in positive fluid balance, and still remains significantly fluid overloaded. patient is nothing by mouth today for hemodialysis catheter insertion and the reinitiation of hemodialysis. Today's labs have been reviewed, her BUN is 41 and creatinine is 1.26. No new chest x-rays today, serum potassium is 4.2, sodium is 139. No fever or chills, microbiology results remain negative, remains on cefepime and Flagyl for antibiotic coverage Objective - Vital Signs Vital signs: Vital Signs Temp 97.8 F 04/23/19 08:00 Pulse 68 04/23/19 09:07 Resp 16 04/23/19 08:00 BP 115/47 04/23/19 08:00 Pulse Ox 98 04/23/19 08:00 Intake & Output 04/22/19 04/23/19 04/23/19 18:59 06:59 18:59 Intake Total 1551.667 131.166 Output Total 900 600 Balance 651.667 -468.834 Weight 185 kg Intake: IV 435 0.9 NS 160 Cefepime 2 gm In Sodium 100 Chloride 0.9% 100 ml @ 200 mls/hr IVPB DAILY JAVIER Rx#:[id number] FUROSEMIDE 75 metroNIDAZOLE-NS PMX 500 100 mg In Saline 1 100ml.bag @ 100 mls/hr IVPB Q8HR JAVIER Rx#:[id number] Intake, IV Titration 104.667 131.166 Amount Furosemide 100 mg In 104.667 131.166 Sodium Chloride 0.9% 90 ml @ 15 MG/HR 15 mls/hr IV .Q6H40M JAVIER Rx#: [id number] Oral 1012 Output: Urine 900 600 Uretheral (Solitario) 200 Other: Voiding Method Indwelling Catheter Indwelling Catheter Indwelling Catheter # Voids 1 ABP, PAP, CO, CI - Last Documented Arterial Blood Pressure 81/52 - Exam GENERAL EXAM: Awake 74-year-old obese white female, 2 L of oxygen with pulse ox of 96%, answers simple questions, mildly dyspneic with conversation comfortable in no apparent distress. HEAD: Normocephalic/atraumatic. EYES: Normal reaction of pupils, equal size. Conjunctiva pink, sclera white. NOSE: Clear with pink turbinates. THROAT: No erythema or exudates. NECK: No masses, no JVD, no thyroid enlargement, no adenopathy. CHEST: No chest wall deformity. Symmetrical expansion. LUNGS: Diminished air entry, no crackles, no wheezes CVS: Regular rate and rhythm, normal S1 and S2, no gallops, no murmurs, no rubs ABDOMEN: Soft, obese, with a significant amount of abdominal wall edema. No hepatosplenomegaly, normal bowel sounds, no guarding or rigidity. EXTREMITIES: No clubbing, no cyanosis, 2+ pulses and upper and lower extremitie s. Significant amount of upper and lower extremity edema anasarca, and edema of abdominal wall MUSCULOSKELETAL: Muscle strength and tone normal. SPINE: No scoliosis or deformity SKIN: Groin folds positive for redness, moisture and rash CENTRAL NERVOUS SYSTEM: Alert and oriented -3, tone is normal in all 4 extremities. - Labs CBC & Chem 7: 04/22/19 06:03 04/23/19 05:57 Labs: Abnormal Lab Results - Last 24 Hours (Table) 04/22/19 04/22/19 04/23/19 Range/Units 16:49 20:16 05:57 Carbon Dioxide 31 H (22-30) mmol/L BUN 41 H (7-17) mg/dL Creatinine 1.26 H (0.52-1.04) mg/dL Glucose 177 H (74-99) mg/dL POC Glucose (mg/dL) 265 H 203 H (75-99) mg/dL Magnesium 1.5 L (1.6-2.3) mg/dL Assessment and Plan Plan: Assessment: #1. Acute hypoxic respiratory failure secondary to ventricular tachycardia, A. fib with RVR, congestive heart failure, requiring intubation and mechanical ventilation. Patient was intubated on 04/12/2019 and successfully weaned and extubated on 04/14/2019. Patient is status post synchronized cardioversion 6 with successful conversion to sinus rhythm, cardiac catheterization did not show significant obstructive coronary artery disease #2. Acute exacerbation of congestive heart failure with preserved ventricular systolic function and EF of 50-55% #3. Symptomatic bradycardia with hypotension related to hyperkalemia on presentation, resolved #4. Acute kidney injury secondary to acute tubular necrosis and hypotension and bradycardia, improving #5. Leukocytosis, patient is empirically covered with Rocephin and vancomycin has had no fever. Urine and blood cultures have shown no growth. on 04/23/2019 patient remains on combination of cefepime and Flagyl, and urine and blood cultures remain negative thus far, with no febrile episodes #6. Hyperkalemia secondary to a KAMILAH resolved #7. Insulin dependent diabetes mellitus #8. History of coronary artery disease and previous stent placement #9. Irritable bowel syndrome #10. Chronic urinary incontinence #11. History of cervical cancer previous hysterectomy #12. History of partial parathyroidectomy #13. History of benign essential hypertension #14. Chronic diastolic CHF #15. Status post cardiac catheterization no significant coronary artery disease #16. Metabolic encephalopathy Plan: Patient is nothing by mouth for placement of hemodialysis catheter today by vascular surgery. Remains on combination of Lasix drip and metolazone, despite the aggressive diuresis patient is significantly fluid overloaded. antibiotics per ID service recommendations, she's been afebrile, cultures have remained negative thus far. We'll continue to follow I performed a history & physical examination of the patient and discussed their management with my nurse practitioner, Norma Avila. I reviewed the nurse practitioner's note and agree with the documented findings and plan of care. Lung sounds are positive for diminished breath sounds. The findings and the impression was discussed with the patient. I attest to the documentation by the nurse practitioner. Time with Patient: Less than 30
--- NOTE | 2019-04-23 12:45 | P.PN ---
Subjective Progress Note Date: 04/23/19 Principal diagnosis: Acute coronary event This is a 74-year-old female patient was coronary artery disease and known chronic total occlusion of the LCx as well as known prior stenting of the LAD as well as history of morbid obesity who was admitted to the hospital with acute hypoxic respiratory failure. She underwent heart catheterization that revealed chronic total occlusion of the left circumflex and patent stent in the LAD, finding any change compared to before. The patient was intubated and subsequently extubated. She was seen today, April [id number]. Overall she is feeling better. She denies any chest pain or chest discomfort. On examination she is hypervolemic with severe bilateral lower extremities edema. Currently she is on Lasix drip and the creatinine continues to be stable. Nephrology is on the case. Beside that, she will be considered for ultrafiltration. Otherwise she is on oral anticoagulation regarding paroxysmal atrial fibrillation. Objective - Vital Signs Vital signs: Vital Signs Temp 97.8 F 04/23/19 08:00 Pulse 68 04/23/19 09:07 Resp 16 04/23/19 12:00 BP 115/47 04/23/19 08:00 Pulse Ox 98 04/23/19 08:00 Intake & Output 04/22/19 04/23/19 04/23/19 18:59 06:59 18:59 Intake Total 1551.667 131.166 Output Total 900 600 Balance 651.667 -468.834 Weight 185 kg 185 kg Intake: IV 435 0.9 NS 160 Cefepime 2 gm In Sodium 100 Chloride 0.9% 100 ml @ 200 mls/hr IVPB DAILY JAVIER Rx#:[id number] FUROSEMIDE 75 metroNIDAZOLE-NS PMX 500 100 mg In Saline 1 100ml.bag @ 100 mls/hr IVPB Q8HR J[facility] Rx#:[id number] Intake, IV Titration 104.667 131.166 Amount Furosemide 100 mg In 104.667 131.166 Sodium Chloride 0.9% 90 ml @ 15 MG/HR 15 mls/hr IV .Q6H40M J[facility] Rx#: [id number] Oral 1012 Output: Urine 900 600 Uretheral (Solitario) 200 Other: Voiding Method Indwelling Catheter Indwelling Catheter Indwelling Catheter # Voids 1 ABP, PAP, CO, CI - Last Documented Arterial Blood Pressure 81/52 - Constitutional General appearance: Present: no acute distress - Respiratory Respiratory: bilateral: diminished - Cardiovascular Rhythm: regular Heart sounds: normal: S1, S2 - Labs CBC & Chem 7: 04/22/19 06:03 04/23/19 05:57 Labs: Abnormal Lab Results - Last 24 Hours (Table) 04/22/19 04/22/19 04/23/19 Range/Units 16:49 20:16 05:57 Carbon Dioxide 31 H (22-30) mmol/L BUN 41 H (7-17) mg/dL Creatinine 1.26 H (0.52-1.04) mg/dL Glucose 177 H (74-99) mg/dL POC Glucose (mg/dL) 265 H 203 H (75-99) mg/dL Magnesium 1.5 L (1.6-2.3) mg/dL 04/23/19 Range/Units 11:54 Carbon Dioxide (22-30) mmol/L BUN (7-17) mg/dL Creatinine (0.52-1.04) mg/dL Glucose (74-99) mg/dL POC Glucose (mg/dL) 262 H (75-99) mg/dL Magnesium (1.6-2.3) mg/dL Assessment and Plan Assessment: Assessment #1 coronary artery disease as described above #2 fluid overload/anasarca #3 paroxysmal atrial fibrillation #4 morbid obesity #5 multiple comorbid conditions Plan #1 continue the IV Lasix. Nephrology is on the case #2 continue monitor the kidney function and electrolytes #3 continue oral anticoagulation #4 follow-up with the patient
[2019-04-23] MEDS: MAGNESIUM SULFATE-D5W PMX 1 GM in DEXTROSE/WATER 1 100ML.BAG IVPB SCH ×2 (13:35→16:28)
--- NOTE | 2019-04-23 14:06 | PCN ---
PROCEDURE NOTE This is a 74-year-old female patient, acute kidney injury before that. Patient went for dialysis. Patient got better. The dialysis catheter has been removed. I was consulted today for replacement of permanent dialysis catheter. The patient was seen by Cardiology for coronary artery stent placement and also she had a heart catheterization and left circumflex has a patent stent in LAD. The patient was seen by Nephrology and requested placement of permanent dialysis catheter. There is history of insulin-dependent diabetes mellitus, obesity, acute kidney injury. Her vital signs stable. Neck is supple. No bruit appreciated. Lungs are some crackles at the lung bases. Heart rate normal rhythm. Abdomen protuberant, nontender. The patient has 2+ edema. PLAN: Placement of the dialysis catheter. Risks and complications discussed. MMODL / IJN: [id number] /
[2019-04-23] MEDS ORDERED: LIDOCAINE 1% INJ 10MG/ML (20 ML MDV) ONE ×2 (14:22→15:15)
[2019-04-23] MEDS ORDERED: LIDOCAINE 1% INJ 10MG/ML (20 ML MDV) SQ ONE ×2 (14:57→15:17)
[2019-04-23] MEDS ORDERED: HEPARIN SODIUM 1,000 UN/ML (10ML VL) ONE (15:27)
--- NOTE | 2019-04-23 15:56 | IR ---
EXAMINATION TYPE: IR cvc insert central tunneled DATE OF EXAM: 04/23/2019 COMPARISON: NONE HISTORY: Fluoroscopy time. Fluoroscopy was provided to the referring clinician. 0.4 minutes of fluoroscopy provided.
[2019-04-23] MEDS ORDERED: SODIUM CHLORIDE 0.9% 1,000 ML IV ONE (16:01)
[2019-04-23] MEDS ORDERED: HEPARIN SOD,PORK IN 0.45% NACL 25,000 UNIT in 0.45% NACL 1 250ML.BAG IV ONE (16:01)
[2019-04-23] MEDS: traMADol 50 MG TAB PO PRN ×2 (16:26→20:35)
--- NOTE | 2019-04-23 16:35 | XR ---
EXAMINATION TYPE: XR chest 1V DATE OF EXAM: 04/23/2019 COMPARISON: Yesterday HISTORY: Line placement TECHNIQUE: Single view FINDINGS: There is dual-lumen right subclavian catheter with the tip in the superior vena cava. There is right subclavian catheter with tip in the superior vena cava. No pneumothorax. There is coarsenin g of the lung markings. No obvious heart failure. IMPRESSION: Inspiration improved compared to exam yesterday. No obvious heart failure. There is decre ased pulmonary congestion.
[2019-04-23 17:02] LABS: Glucose,Whole Blood 178 mg/dL (75-99)
[2019-04-23 20:17] LABS: Glucose,Whole Blood 186 mg/dL (75-99)
[2019-04-23] MEDS: CHOLECALCIFEROL 1,000 UNIT TAB PO SCH (20:33)
[2019-04-23] MEDS: ARIPiprazole 5 MG TAB PO SCH (20:33)
[2019-04-23] MEDS: ATORVASTATIN 40 MG TAB PO SCH (20:33)
[2019-04-23] MEDS: INSULIN DETEMIR (LEVEMIR) 100 UNIT/ML SYR SQ SCH (20:34)
[2019-04-24] MEDS: FUROSEMIDE 100 MG in SODIUM CHLORIDE 0.9% 90 ML IV SCH ×4 (03:10→20:34)
[2019-04-24] MEDS: traMADol 50 MG TAB PO PRN ×2 (03:10→23:13)
--- NOTE | 2019-04-24 04:47 | PN ---
PROGRESS NOTE DATE OF SERVICE: 04/23/2019 REASON FOR FOLLOWUP: Leukocytosis, abdominal source. INTERVAL HISTORY: The patient is afebrile. She has been breathing comfortably. The patient denies having any chest pain, shortness of breath. Occasional cough. No nausea, no vomiting. No abdominal pain. No diarrhea. PHYSICAL EXAMINATION: On examination, her blood pressure is 128/58 with a pulse of 72, temperature 97.8. She is 99% on 2 L nasal cannula. General description is an elderly female lying in bed in no distress. RESPIRATORY SYSTEM: Unlabored breathing, decreased breath sounds at the bases. No wheeze. HEART: S1, S2. Regular rate and rhythm. ABDOMEN: Soft, no tenderness. LABS: No CBC was done today. Her white count was a 11,000 yesterday. Creatinine is 1.26. DIAGNOSTIC IMPRESSION AND PLAN: Patient with leukocytosis, possible abdominal source as patient clinically responding to cefepime and Flagyl to continue and will monitor clinical course closely. MMODL / IJN: [id number] /
--- NOTE | 2019-04-24 05:50 | PN ---
PROGRESS NOTE This 74-year-old white female bradycardia, hyperkalemia, getting dialysis for end-stage renal disease, fluid overload. CARDIOVASCULAR: S1, S2. LUNGS: Show rales at the bases. HEMATOLOGY: 2+ edema. NEUROLOGIC: Alert and oriented x3. PSYCH: Fair mood and affect. ASSESSMENT: 1. End-stage renal disease. 2. Diastolic congestive heart failure. 3. Bradycardia. 4. Hyperkalemia. Continue with fluid overload treatment. Continue with CHF types treatment and end- stage renal disease. Treatment follow up in the next 24 to 48 hours. MMODL / IJN: [id number] /
[2019-04-24 06:38] LABS: Glucose,Whole Blood 231 mg/dL (75-99)
[2019-04-24] MEDS: MIDODRINE 5 MG TAB PO SCH ×3 (07:06→17:46)
[2019-04-24] MEDS: GABAPENTIN 100 MG CAP PO SCH ×2 (07:06→20:32)
[2019-04-24] MEDS: INSULIN ASPART (NovoLOG) 100 UNIT/ML VIAL SQ SCH ×7 (07:06→20:29)
[2019-04-24 07:09] LABS: Calcium 9.2 mg/dL (8.4-10.2); Magnesium 1.8 mg/dL (1.6-2.3); Potassium 4.3 mmol/L (3.5-5.1)
[2019-04-24] MEDS: metroNIDAZOLE-NS PMX 500 MG in SALINE 1 100ML.BAG IVPB SCH ×3 (08:08→23:14)
[2019-04-24] MEDS: BUDESONIDE 1 MG/2 ML NEBU INHALATION SCH ×2 (09:27→19:55)
[2019-04-24] MEDS: ASPIRIN 81 MG PO SCH (10:26)
[2019-04-24] MEDS: APIXABAN 5 MG TAB PO SCH ×2 (10:26→20:22)
[2019-04-24] MEDS: CITALOPRAM HYDROBROMIDE 20 MG TAB PO SCH (10:27)
[2019-04-24] MEDS: CITALOPRAM HYDROBROMIDE 10 MG TAB PO SCH (10:27)
[2019-04-24] MEDS: PANTOPRAZOLE 40 MG TABLET PO SCH (10:27)
[2019-04-24] MEDS: NYSTATIN 100,000 UNIT/ML SUSP 500,000 UNIT/5 ML CUP PO SCH ×4 (10:27→23:13)
[2019-04-24] MEDS: FERROUS SULFATE 325 MG TAB PO SCH (10:27)
[2019-04-24] MEDS: CEFEPIME 2 GM in SODIUM CHLORIDE 0.9% 100 ML IVPB SCH (10:28)
[2019-04-24 11:59] LABS: Glucose,Whole Blood 202 mg/dL (75-99)
--- NOTE | 2019-04-24 12:17 | P.PN ---
Subjective Progress Note Date: 04/24/19 This is 74-year-old female patient with history of diastolic congestive heart failure, diabetes, hypertension, coronary artery disease with prior stent placement, chronic lower back pain, history of cervical cancer, originally admitted to the hospital with complaints of shortness of breath and abdominal di scomfort. Patient had been in the intensive care unit, she is now being followed on the cardiac unit. Resting comfortably in bed today on my examination. She continues to be on IV Lasix drip along with Zaroxolyn 5 twice a day. She appears to be putting out urine according to the documentation, w eight remains unchanged. I pressure 104/60 with a heart rate in the 70s. Sodium 138, potassium 4.3, BUN 34, creatinine 1.4. Magnesium 1.8. Objective - Vital Signs Vital signs: Vital Signs Temp 97.2 F L 04/24/19 08:03 Pulse 72 04/24/19 09:38 Resp 20 04/24/19 03:45 BP 103/59 04/24/19 08:03 Pulse Ox 100 04/24/19 08:03 Intake & Output 04/23/19 04/24/19 04/24/19 18:59 06:59 18:59 Intake Total 72.5 716 47.333 Output Total 500 2150 Balance -427.5 -1434 47.333 Weight 185 kg Intake: Intake, IV Titration 72.5 136 47.333 Amount Furosemide 100 mg In 72.5 136 47.333 Sodium Chloride 0.9% 90 ml @ 15 MG/HR 15 mls/hr IV .Q6H40M [facility] Rx#: [id number] Oral 580 Output: Urine 500 150 Uretheral (Solitario) 150 Hemodialysis 1999 Other: Voiding Method Indwelling Catheter Indwelling Catheter Indwelling Catheter # Voids 1 ABP, PAP, CO, CI - Last Documented Arterial Blood Pressure 81/52 - Exam HEAD: Normocephalic/atraumatic. EYES: Normal reaction of pupils, equal size. Conjunctiva pink, sclera white. NOSE: Clear with pink turbinates. THROAT: No erythema or exudates. NECK: No masses, no JVD, no thyroid enlargement, no adenopathy. CHEST: No chest wall deformity. Symmetrical expansion. LUNGS: Diminished air entry, no crackles, no wheezes CVS: Regular rate and rhythm, normal S1 and S2, no gallops, no murmurs, no rubs ABDOMEN: Soft, obese, with a significant amount of abdominal wall edema. No hepatosplenomegaly, normal bowel sounds, no guarding or rigidity. EXTREMITIES: No clubbing, no cyanosis, 2+ pulses and upper and lower extremities. Significant amount of upper and lower extremity edema anasarca, and edema of abdominal wall MUSCULOSKELETAL: Muscle strength and tone normal. SPINE: No scoliosis or deformity SKIN: Groin folds positive for redness, moisture and rash CENTRAL NERVOUS SYSTEM: Alert and oriented -3, tone is normal in all 4 extremities. - Labs CBC & Chem 7: 04/22/19 06:03 04/24/19 06:04 Labs: Abnormal Lab Results - Last 24 Hours (Table) 04/23/19 04/23/19 04/24/19 Range/Units 17:01 20:15 06:04 BUN 34 H (7-17) mg/dL Creatinine 1.41 H (0.52-1.04) mg/dL Glucose 170 H (74-99) mg/dL POC Glucose (mg/dL) 178 H 186 H (75-99) mg/dL 04/24/19 04/24/19 Range/Units 06:37 11:58 BUN (7-17) mg/dL Creatinine (0.52-1.04) mg/dL Glucose (74-99) mg/dL POC Glucose (mg/dL) 231 H 202 H (75-99) mg/dL Assessment and Plan Plan: Assessment and plan: #1. Acute hypoxic respiratory failure secondary to ventricular tachycardia, A. fib with RVR, congestive heart failure, requiring intubation and mechanical ventilation. Patient was intubated on 04/12/2019 and successfully weaned and extubated on 04/14/2019. Patient is status post synchronized cardioversion 6 with successful conversion to sinus rhythm, cardiac catheterization did not show significant obstructive coronary artery disease #2. Acute exacerbation of congestive heart failure with preserved ventricular systolic function and EF of 50-55% #3. Symptomatic bradycardia with hypotension related to hyperkalemia on presen tation, resolved #4. Acute kidney injury secondary to acute tubular necrosis and hypotension and bradycardia, improving #5. Leukocytosis, patient is empirically covered with Rocephin and vancomycin has had no fever. Urine and blood cultures have shown no growth. on 04/23/2019 patient remains on combination of cefepime and Flagyl, and urine and blood cultures remain negative thus far, with no febrile episodes #6. Hyperkalemia secondary to a KAMILAH resolved #7. Insulin dependent diabetes mellitus #8. History of coronary artery disease and previous stent placement #9. Irritable bowel syndrome #10. Chronic urinary incontinence #11. History of cervical cancer previous hysterectomy #12. History of partial parathyroidectomy #13. History of benign essential hypertension #14. Chronic diastolic CHF #15. Status post cardiac catheterization no significant coronary artery disease Plan Patient underwent dialysis catheter placement yesterday continues at this time to be on a Lasix drip and Zaroxolyn. Further management per nephrology. DNP note has been reviewed, I agree with a documented findings and plan of care. Patient was seen and examined.
--- NOTE | 2019-04-24 13:15 | P.PN ---
Subjective Progress Note Date: 04/24/19 this is 74 showed female admitted with acute hypoxic respiratory failure, ventricular tachycardia,atrial fibrillation with RVR, CHF, status post mechanical ventilation, anasarca and multiple other medical issues.vital signs stable, maintaining O2 sats in the 90s on2 L nasal cannula.no further arrhythmias reported. Afebrile,WBC 25.2,urine culture negative, blood cultures negative,maintained on empiric antibiotics of Levaquin.chest x-rayconsistent with fluid overload, reporting bilateral pleural effusions with cardiomegaly and bibasilar infiltrate, diffuse interstitial pattern.maintained on Lasix drip, diuresing well with 24-hour I&O reflecting a negative fluid balance. Creatinine 1.5. Currently requiring 7 mics of Levophed. PICC line placed. Maintained on heparin drip. Telemetry sinus rhythm, on beta tish and oral amiodarone. Speech therapy evaluation pending. 04/16/2019 maintained on Lasix and heparin drips.diuresing well with 24-hour I&O reflecting a negative fluid balance. Positive bowel movement today.Sensorium slowly improving -More alert today, answering simple questions, conversing. Reports generalized diffuse discomfort from bed. Levophed weaned off yesterday. Continues on Levaquin, Afebrile, leukocytosis improving. Dialysis catheter removed yesterday. Renal function improving, creatinine 1.3. Currently NPO with significant generalized weakness Sodium improving, 136. Chest x-ray stable reporting similar findings to prior of bibasilar effusions, atelectasis, pneumonia/edema with possible underlying pulmonary artery hypertension. 04/17/19 Lasix drip converted to IV push. Diuresing well with 24-hour I&O reflecting a negative fluid balance. Creatinine 1.25. Magnesium 1.2-magnesium replacement ordered. Patient passed swallow evaluation. Maintained on heparin drip. Evaluated by infectious disease, antibiotics adjusted. Afebrile, WBC 19.1. Chest x-ray reporting persistent bilateral hilar enlargement with cardiomegaly, bilateral consolidation/pleural effusion,diffuse interstitial pattern,. 04/22/2019 Lasix drip initiated yesterday, CXR reporting reporting persistent prominence of hilum, pulmonary arterial hypertension, bibasilar infiltrate, diffuse interstitial pattern. Creatinine stable 1.36 Denies chest pain, palpitations. 04/23/2019 diuresing well on Lasix drip with 24-hour I&O reflecting a negative fluid balance, recent weight unchanged. Creatinine 1.41. Afebrile, maintained on cefepime and Flagyl, as per ID. maintaining O2 sats in the high 90s on 2 L nasal cannula. Temporary Hemodialysis catheter placed yesterday, tolerated procedure well. Received ultrafiltration yesterday scheduled again today. Objective - Vital Signs Vital signs: Vital Signs Temp 97.2 F L 04/24/19 08:03 Pulse 72 04/24/19 09:38 Resp 20 04/24/19 03:45 BP 103/59 04/24/19 08:03 Pulse Ox 100 04/24/19 08:03 Intake & Output 04/23/19 04/24/19 04/24/19 18:59 06:59 18:59 Intake Total 72.5 716 47.333 Output Total 500 2150 Balance -427.5 -1434 47.333 Weight 185 kg Intake: Intake, IV Titration 72.5 136 47.333 Amount Furosemide 100 mg In 72.5 136 47.333 Sodium Chloride 0.9% 90 ml @ 15 MG/HR 15 mls/hr IV .Q6H40M [facility] Rx#: [id number] Oral 580 Output: Urine 500 150 Uretheral (Solitario) 150 Hemodialysis 1999 Other: Voiding Method Indwelling Catheter Indwelling Catheter Indwelling Catheter # Voids 1 ABP, PAP, CO, CI - Last Documented Arterial Blood Pressure 81/52 - Exam PHYSICAL EXAM: VITAL SIGNS: [as above] GENERAL: sitting up in bed, no acute distress HEENT: Conjunctivae normal. eyes normal. NECK: No JVD. No thyroid enlargement. No LNs CARDIOVASCULAR: S1, S2 regular.. No murmur RESPIRATION: Breath sounds diminished in the bases. No rhonchi or crackles. ABDOMEN: Soft, obese, nontender, abdominal wall edema . No guarding. no masses palpable. Bowel sounds heard. LEGS: Diffuse upper ,lower extremity edema, anasarca. Multiple bruising on all extremities. PSYCHIATRY: Alert and oriented X2, mood and affect normal. NERVOUS SYSTEM: Cranial N 2-12 grossly normal. Moves all 4 limbs. Diffuse weakness, No focal deficits. Skin: Skin folds reddened rash. Microbiology 04/09/19 12:40 Blood Blood Culture - Final No Growth after 144 hours 04/09/19 15:15 Urine,Voided Urine Culture - Final - Labs CBC & Chem 7: 04/22/19 06:03 04/24/19 06:04 Labs: Abnormal Lab Results - Last 24 Hours (Table) 04/23/19 04/23/19 04/23/19 Range/Units 11:54 17:01 20:15 BUN (7-17) mg/dL Creatinine (0.52-1.04) mg/dL Glucose (74-99) mg/dL POC Glucose (mg/dL) 262 H 178 H 186 H (75-99) mg/dL 04/24/19 04/24/19 Range/Units 06:04 06:37 BUN 34 H (7-17) mg/dL Creatinine 1.41 H (0.52-1.04) mg/dL Glucose 170 H (74-99) mg/dL POC Glucose (mg/dL) 231 H (75-99) mg/dL Assessment and Plan Assessment: Acute hypoxic respiratory failure secondary to ventricular tachycardia followed by atrial fibrillation with RVR , required mechanical ventilation and shocking about 6 times. Status post mechanical ventilation Acute CHF exacerbation with systolic dysfunction, EF 50-55%. Significant fluid volume overload, temporary dialysis catheter reinitiated for ultrafiltration. Hypotension, status post pressor dependent Leukocytosis, afebrile, urine and blood cultures negative, on empiric antibiotics Acute metabolic encephalopathy, multifactorial, secondary to all the above Symptomatic bradycardia with hypotension secondary to hyperkalemia, Acute kidney injury secondary to acute tubular necrosis ,hypotension with bradycardia. Hyperkalemia secondary to acute kidney injury Insulin dependent diabetes mellitus. History of coronary artery disease and previous stent placement Irritable bowel syndrome Chronic urinary incontinence History of cervical cancer and previous hysterectomy History of partial parathyroidectomy History of benign essential hypertension Chronic diastolic congestive heart failure Status post cardiac catheterization, reporting no significant obstructive CAD. Morbid obesity, BMI 73.7 Plan: Continue current medication regime ,monitoring and symptomatic treatment. Lasix drip, metolazone ultrafiltration, as per nephrology. Close monitoring of renal function with repeat labs ordered for a.m. continue on cefepime, Flagyl as per ID. Prognosis guarded given multiple complex medical issues. The impression and plan of care has been dictated as directed. : I performed a history and examination of this patient, discussed the same with the dictator. I agree with the dictator's note ,documented as a scribe. Any additional findings or plans will be noted.
--- NOTE | 2019-04-24 15:17 | PN ---
PROGRESS NOTE Patient is seen for followup for acute kidney injury, severe volume overload and severe hyperkalemia on initial admission, which has now resolved. Patient was restarted on dialysis mainly for ultrafiltration secondary to severe volume overload. She had her dialysis yesterday and she is scheduled for another treatment today. Post admission, patient initially had 2 treatments initially for hyperkalemia following which her renal function had improved and the dialysis catheter was discontinued, but it was reinserted secondary to severe volume overload. Patient is maintained on a Lasix drip at 50 mg/hour, 24 hour urine output documented at about 2.6 L. PHYSICAL EXAMINATION: On examination today, blood pressure was 120/57, heart rate 77 per minute, she is afebrile. Examination of the heart S1, S2. Examination of the lungs, bilateral breath sounds are heard. Abdomen is soft, non-tender. Examination of the lower extremities shows edema 3 to 4+ bilaterally. Abdomen is morbidly obese. There is edema in the upper extremities as well. LABS: Show sodium 138, potassium 4.3, chloride 104, BUN 34, creatinine 1.4. ASSESSMENT: 1. Acute kidney injury on initial admission, improved, status post 2 initial treatments of dialysis mainly for hyperkalemia and then the catheter was discontinued, as renal function had improved; however, currently patient remains severely volume overloaded and therefore she was restarted on hemodialysis, mainly ultrafiltration yesterday, today will be her second treatment. 2. Hyperkalemia associated with acute kidney injury on initial admission along with use of LINDSAY inhibitors, now improved. 3. Hypotension, currently off Levophed. 4. Severe volume overload. 5. Bradycardia and episodes of ventricular tachycardia, status post cardiac cath. PLAN: Continue with Lasix drip. Plan for second treatment of hemodialysis, mainly ultrafiltration today. We will repeat again in a.m. Continue with the Lasix drip in the meantime. MMODL / IJN: [id number] /
[2019-04-24 17:03] LABS: Glucose,Whole Blood 152 mg/dL (75-99)
[2019-04-24] MEDS: METOPROLOL TARTRATE 12.5 MG TAB PO SCH ×2 (17:42→20:21)
[2019-04-24] MEDS: METOLAZONE 5 MG TAB PO SCH ×2 (17:42→20:28)
--- NOTE | 2019-04-24 17:42 | PN ---
PROGRESS NOTE DATE OF SERVICE: 04/24/2019. REASON FOR FOLLOWUP: Leukocytosis. INTERVAL HISTORY: The patient is currently afebrile. The patient has been breathing comfortably. The patient denies having any chest pain. Occasional cough. No nausea or vomiting. No abdominal pain and no diarrhea. PHYSICAL EXAMINATION: Blood pressure 116/58 with a pulse of 79, temperature 97.8. She is 98% on 2 L nasal cannula. General description is an elderly female lying in bed in no distress. RESPIRATORY SYSTEM: Unlabored breathing. Clear to auscultation anteriorly. HEART: S1, S2. Regular rate and rhythm. ABDOMEN: Soft. No tenderness. LABS/IMAGING: No CBC was done today. Creatinine is 1.41. Blood and urine cultures have been negative. Chest x-ray with decreased congestion. No consolidation. DIAGNOSTIC IMPRESSION AND PLAN: Patient with leukocytosis, likely multifactorial, possibly from abdominal source or aspiration pneumonitis. Patient seems to have shown overall clinical improvement. Her white count is showing a downward trend. CBC will be repeated tomorrow. Currently on cefepime and Flagyl, to finish a short course of oral antibiotics. Continue with supportive care. MMODL / IJN: [id number] /
[2019-04-24 20:16] LABS: Glucose,Whole Blood 190 mg/dL (75-99)
[2019-04-24] MEDS: AMIODARONE 200 MG TAB PO SCH (20:21)
[2019-04-24] MEDS: ATORVASTATIN 40 MG TAB PO SCH (20:21)
[2019-04-24] MEDS: CHOLECALCIFEROL 1,000 UNIT TAB PO SCH (20:22)
[2019-04-24] MEDS: ARIPiprazole 5 MG TAB PO SCH (20:28)
[2019-04-24] MEDS: INSULIN DETEMIR (LEVEMIR) 100 UNIT/ML SYR SQ SCH (20:30)
--- NOTE | 2019-04-24 22:36 | OP ---
OPERATIVE REPORT PREOP DIAGNOSIS: Acute on chronic renal failure. POSTOP DIAGNOSIS: Acute on chronic renal failure. PROCEDURE PERFORMED: Placement of ultrasound guided 23 cm dialysis catheter right jugular approach. SEDATION: Time is 55 minutes. PROCEDURE IN DETAIL: This patient brought to the clinical laboratory service teacher. Right groin was prepped and drapes applied in a sterile manner. The patient is extremely short of breath. We infiltrated 1% lidocaine in the chest area and gave IV sedation. Ultrasound-guided micropuncture introduced right jugular vein. Micropuncture guidewire was passed and 4-Persian dilator was advanced on top of the guidewire. Then we made incisions on the chest wall and a tunnel was created. Through the tunnel we brought the dialysis catheter neck is area. After that, under fluoroscopy control, we passed a guidewire and who all the precautions were taken because patient has an ICD placed and guide was parked at the inferior vena cava and the sheath was advanced. Through the sheath, we introduced dialysis catheter, tip of the catheter in superior vena cava and atrium, flushed with heparin saline and hep-locked and secured with Vicryl and nylon. Dressing applied. Patient tolerated the procedure well. MMODL / IJN: [id number] /
[2019-04-25] MEDS: FUROSEMIDE 100 MG in SODIUM CHLORIDE 0.9% 90 ML IV SCH ×3 (05:29→20:18)
[2019-04-25] MEDS: INSULIN ASPART (NovoLOG) 100 UNIT/ML VIAL SQ SCH ×7 (05:53→21:47)
[2019-04-25 05:54] LABS: Glucose,Whole Blood 154 mg/dL (75-99)
[2019-04-25] MEDS: GABAPENTIN 100 MG CAP PO SCH ×2 (05:54→21:47)
[2019-04-25] MEDS: MIDODRINE 5 MG TAB PO SCH ×3 (05:54→17:25)
[2019-04-25 06:04] LABS: Basophils # (A) 0.1 k/uL (0-0.2); Basophils % (A) 1 %; Eosinophils # (A) 0.5 k/uL (0-0.7); Eosinophils % (A) 3 %; HCT 30.7 % (34.0-46.0); Hypochromasia Marked; Lymphocytes # (A) 1.6 k/uL (1.0-4.8); Lymphocytes % (A) 11 %; MCH 31.4 pg (25.0-35.0); MCHC 29.3 g/dL (31.0-37.0); Macrocytosis Marked; Mean Platelet Volume 7.8; Monocytes # (A) 0.9 k/uL (0-1.0); Monocytes % (A) 6 %; Neutrophils # (A) 11.6 k/uL (1.3-7.7); Neutrophils % (A) 78 %; Platelet Count 228 k/uL (150-450); RBC 2.87 m/uL (3.80-5.40); RDW 15.7 % (11.5-15.5)
[2019-04-25 06:06] LABS: MCV 107.1 fL (80.0-100.0)
[2019-04-25 06:22] LABS: Magnesium 1.8 mg/dL (1.6-2.3); Potassium 3.9 mmol/L (3.5-5.1)
[2019-04-25] MEDS: metroNIDAZOLE-NS PMX 500 MG in SALINE 1 100ML.BAG IVPB SCH ×2 (07:43→17:24)
[2019-04-25] MEDS: PANTOPRAZOLE 40 MG TABLET PO SCH (08:00)
[2019-04-25] MEDS: BUDESONIDE 1 MG/2 ML NEBU INHALATION SCH ×2 (09:03→19:59)
[2019-04-25] MEDS: NYSTATIN 100,000 UNIT/ML SUSP 500,000 UNIT/5 ML CUP PO SCH ×4 (09:04→21:47)
[2019-04-25] MEDS: CEFEPIME 2 GM in SODIUM CHLORIDE 0.9% 100 ML IVPB SCH (09:05)
--- NOTE | 2019-04-25 10:02 | P.PN ---
Subjective Progress Note Date: 04/25/19 Principal diagnosis: Acute coronary event This is a 74-year-old female patient was coronary artery disease and known chronic total occlusion of the LCx as well as known prior stenting of the LAD as well as history of morbid obesity who was admitted to the hospital with acute hypoxic respiratory failure. She underwent heart catheterization that revealed chronic total occlusion of the left circumflex and patent stent in the LAD, finding any change compared to before. The patient was intubated and subsequently extubated. The patient was seen today, 04/25/2019. She is looking slightly better compared to before. She continues to have ultrafiltration. This is her third u ltrafiltration. Otherwise she denies any symptoms of chest pain or chest discomfort. Objective - Vital Signs Vital signs: Vital Signs Temp 98.2 F 04/25/19 08:00 Pulse 80 04/25/19 09:15 Resp 18 04/25/19 08:00 BP 139/60 04/25/19 08:00 Pulse Ox 100 04/25/19 08:00 Intake & Output 04/24/19 04/25/19 04/25/19 18:59 06:59 18:59 Intake Total 369.333 189.75 0 Output Total 3000 100 Balance -2630.667 89.75 0 Intake: Intake, IV Titration 147.333 189.75 Amount Furosemide 100 mg In 147.333 189.75 Sodium Chloride 0.9% 90 ml @ 15 MG/HR 15 mls/hr IV .Q6H40M [facility] Rx#: [id number] Oral 222 0 Output: Urine 100 Hemodialysis 3000 Other: Voiding Method Indwelling Catheter Indwelling Catheter Indwelling Catheter ABP, PAP, CO, CI - Last Documented Arterial Blood Pressure 81/52 - Constitutional General appearance: Present: no acute distress - Respiratory Respiratory: bilateral: diminished - Cardiovascular Rhythm: regular Heart sounds: normal: S1, S2 - Labs CBC & Chem 7: 04/25/19 05:28 04/25/19 05:28 Labs: Abnormal Lab Results - Last 24 Hours (Table) 04/24/19 04/24/19 04/24/19 Range/Units 11:58 17:01 20:14 WBC (3.8-10.6) k/uL RBC (3.80-5.40) m/uL Hgb (11.4-16.0) gm/dL Hct (34.0-46.0) % MCV (80.0-100.0) fL MCHC (31.0-37.0) g/dL RDW (11.5-15.5) % Neutrophils # (1.3-7.7) k/uL Macrocytosis BUN (7-17) mg/dL Creatinine (0.52-1.04) mg/dL Glucose (74-99) mg/dL POC Glucose (mg/dL) 202 H 152 H 190 H (75-99) mg/dL 04/25/19 04/25/19 04/25/19 Range/Units 05:28 05:28 05:51 WBC 15.0 H (3.8-10.6) k/uL RBC 2.87 L (3.80-5.40) m/uL Hgb 9.0 L (11.4-16.0) gm/dL Hct 30.7 L (34.0-46.0) % MCV 107.1 H (80.0-100.0) fL MCHC 29.3 L (31.0-37.0) g/dL RDW 15.7 H (11.5-15.5) % Neutrophils # 11.6 H (1.3-7.7) k/uL Macrocytosis Marked A BUN 29 H (7-17) mg/dL Creatinine 1.72 H (0.52-1.04) mg/dL Glucose 143 H (74-99) mg/dL POC Glucose (mg/dL) 154 H (75-99) mg/dL Assessment and Plan Assessment: Assessment #1 coronary artery disease as described above #2 fluid overload/anasarca #3 paroxysmal atrial fibrillation #4 morbid obesity #5 multiple comorbid conditions Plan #1 continue the current medical regimen #2 continue ultrafiltration #3 follow-up with the patient
[2019-04-25 12:00] LABS: Glucose,Whole Blood 168 mg/dL (75-99)
[2019-04-25] MEDS: FERROUS SULFATE 325 MG TAB PO SCH (12:19)
[2019-04-25] MEDS: CITALOPRAM HYDROBROMIDE 20 MG TAB PO SCH (12:20)
[2019-04-25] MEDS: AMIODARONE 200 MG TAB PO SCH (12:20)
[2019-04-25] MEDS: ASPIRIN 81 MG PO SCH (12:20)
[2019-04-25] MEDS: APIXABAN 5 MG TAB PO SCH ×2 (12:20→20:17)
[2019-04-25] MEDS: METOPROLOL TARTRATE 12.5 MG TAB PO SCH ×2 (12:20→20:17)
[2019-04-25] MEDS: CITALOPRAM HYDROBROMIDE 10 MG TAB PO SCH (12:20)
[2019-04-25] MEDS: METOLAZONE 5 MG TAB PO SCH ×2 (12:25→20:17)
[2019-04-25] MEDS: ONDANSETRON 4 MG/2 ML VIAL IVP PRN (15:39)
[2019-04-25] MEDS: traMADol 50 MG TAB PO PRN (15:39)
--- NOTE | 2019-04-25 16:33 | P.PN ---
Subjective Progress Note Date: 04/25/19 this is 74 showed female admitted with acute hypoxic respiratory failure, ventricular tachycardia,atrial fibrillation with RVR, CHF, status post mechanical ventilation, anasarca and multiple other medical issues.vital signs stable, maintaining O2 sats in the 90s on2 L nasal cannula.no further arrhythmias reported. Afebrile,WBC 25.2,urine culture negative, blood cultures negative,maintained on empiric antibiotics of Levaquin.chest x-rayconsistent with fluid overload, reporting bilateral pleural effusions with cardiomegaly and bibasilar infiltrate, diffuse interstitial pattern.maintained on Lasix drip, diuresing well with 24-hour I&O reflecting a negative fluid balance. Creatinine 1.5. Currently requiring 7 mics of Levophed. PICC line placed. Maintained on heparin drip. Telemetry sinus rhythm, on beta tish and oral amiodarone. Speech therapy evaluation pending. 04/16/2019 maintained on Lasix and heparin drips.diuresing well with 24-hour I&O reflecting a negative fluid balance. Positive bowel movement today.Sensorium slowly improving -More alert today, answering simple questions, conversing. Reports generalized diffuse discomfort from bed. Levophed weaned off yesterday. Continues on Levaquin, Afebrile, leukocytosis improving. Dialysis catheter removed yesterday. Renal function improving, creatinine 1.3. Currently NPO with significant generalized weakness Sodium improving, 136. Chest x-ray stable reporting similar findings to prior of bibasilar effusions, atelectasis, pneumonia/edema with possible underlying pulmonary artery hypertension. 04/17/19 Lasix drip converted to IV push. Diuresing well with 24-hour I&O reflecting a negative fluid balance. Creatinine 1.25. Magnesium 1.2-magnesium replacement ordered. Patient passed swallow evaluation. Maintained on heparin drip. Evaluated by infectious disease, antibiotics adjusted. Afebrile, WBC 19.1. Chest x-ray reporting persistent bilateral hilar enlargement with cardiomegaly, bilateral consolidation/pleural effusion,diffuse interstitial pattern,. 04/22/2019 Lasix drip initiated yesterday, CXR reporting reporting persistent prominence of hilum, pulmonary arterial hypertension, bibasilar infiltrate, diffuse interstitial pattern. Creatinine stable 1.36 Denies chest pain, palpitations. 04/24/2019 diuresing well on Lasix drip with 24-hour I&O reflecting a negative fluid balance, recent weight unchanged. Creatinine 1.41. Afebrile, maintained on cefepime and Flagyl, as per ID. maintaining O2 sats in the high 90s on 2 L nasal cannula. Temporary Hemodialysis catheter placed yesterday, tolerated procedure well. Received ultrafiltration yesterday scheduled again today. 04/25/2019 receiving ultrafiltration. Creatinine 1.72. Continues on Lasix drip. Maintained on IV antibiotics of cefepime, Flagyl as per infectious disease. Afebrile, WBC up to 15. Diet intake poor, denies nausea vomiting or diarrhea. Denies abdominal pain. Blood sugars stable. Objective - Vital Signs Vital signs: Vital Signs Temp 97.9 F 04/25/19 14:41 Pulse 72 04/25/19 14:41 Resp 20 04/25/19 14:41 BP 122/46 04/25/19 14:41 Pulse Ox 100 04/25/19 08:00 Intake & Output 04/24/19 04/25/19 04/25/19 18:59 06:59 18:59 Intake Total 369.333 189.75 100 Output Total 3000 100 2600 Balance -2630.667 89.75 -2500 Weight 185 kg Intake: Intake, IV Titration 147.333 189.75 100 Amount Furosemide 100 mg In 147.333 189.75 100 Sodium Chloride 0.9% 90 ml @ 15 MG/HR 15 mls/hr IV .Q6H40M [facility] Rx#: [id number] Oral 222 0 Output: Urine 100 Hemodialysis 3000 2600 Other: Voiding Method Indwelling Catheter Indwelling Catheter Indwelling Catheter ABP, PAP, CO, CI - Last Documented Arterial Blood Pressure 81/52 - Exam PHYSICAL EXAM: VITAL SIGNS: [as above] GENERAL: sitting up in bed, no acute distress HEENT: Conjunctivae normal. eyes normal. NECK: No JVD. No thyroid enlargement. No LNs CARDIOVASCULAR: S1, S2 regular.. No murmur RESPIRATION: Breath sounds diminished in the bases. No rhonchi or crackles. ABDOMEN: Soft, obese, nontender, abdominal wall edema . No guarding. no masses palpable. Bowel sounds heard. LEGS: Diffuse upper ,lower extremity edema, anasarca. Multiple bruising on all extremities. PSYCHIATRY: Alert and oriented X2, mood and affect normal. NERVOUS SYSTEM: Cranial N 2-12 grossly normal. Moves all 4 limbs. Diffuse weakness, No focal deficits. Skin: Skin folds with nystatin powder Microbiology 04/09/19 12:40 Blood Blood Culture - Final No Growth after 144 hours 04/09/19 15:15 Urine,Voided Urine Culture - Final - Labs CBC & Chem 7: 04/25/19 05:28 04/25/19 05:28 Labs: Abnormal Lab Results - Last 24 Hours (Table) 04/24/19 04/24/19 04/25/19 Range/Units 17:01 20:14 05:28 WBC 15.0 H (3.8-10.6) k/uL RBC 2.87 L (3.80-5.40) m/uL Hgb 9.0 L (11.4-16.0) gm/dL Hct 30.7 L (34.0-46.0) % MCV 107.1 H (80.0-100.0) fL MCHC 29.3 L (31.0-37.0) g/dL RDW 15.7 H (11.5-15.5) % Neutrophils # 11.6 H (1.3-7.7) k/uL Macrocytosis Marked A BUN (7-17) mg/dL Creatinine (0.52-1.04) mg/dL Glucose (74-99) mg/dL POC Glucose (mg/dL) 152 H 190 H (75-99) mg/dL 04/25/19 04/25/19 04/25/19 Range/Units 05:28 05:51 11:58 WBC (3.8-10.6) k/uL RBC (3.80-5.40) m/uL Hgb (11.4-16.0) gm/dL Hct (34.0-46.0) % MCV (80.0-100.0) fL MCHC (31.0-37.0) g/dL RDW (11.5-15.5) % Neutrophils # (1.3-7.7) k/uL Macrocytosis BUN 29 H (7-17) mg/dL Creatinine 1.72 H (0.52-1.04) mg/dL Glucose 143 H (74-99) mg/dL POC Glucose (mg/dL) 154 H 168 H (75-99) mg/dL Assessment and Plan Assessment: Acute hypoxic respiratory failure secondary to ventricular tachycardia followed by atrial fibrillation with RVR , required mechanical ventilation and shocking about 6 times. Status post mechanical ventilation Acute CHF exacerbation with systolic dysfunction, EF 50-55%. Significant fluid volume overload, temporary dialysis catheter reinitiated for ultrafiltration. Hypotension, status post pressor dependent Leukocytosis, afebrile, urine and blood cultures negative, on empiric antibiotics Acute metabolic encephalopathy, multifactorial, secondary to all the above Symptomatic bradycardia with hypotension secondary to hyperkalemia, Acute kidney injury secondary to acute tubular necrosis ,hypotension with bradycardia. Hyperkalemia secondary to acute kidney injury Insulin dependent diabetes mellitus. History of coronary artery disease and previous stent placement Irritable bowel syndrome Chronic urinary incontinence History of cervical cancer and previous hysterectomy History of partial parathyroidectomy History of benign essential hypertension Chronic diastolic congestive heart failure Status post cardiac catheterization, reporting no significant obstructive CAD. Morbid obesity, BMI 73.7 Plan: Continue current medication regime ,monitoring and symptomatic treatment. Maintain IV antibiotics as per ID . Diuretics/ ultrafiltration, as per nephrology. Diet intake remains poor. Close monitoring of renal function with repeat labs ordered for a.m. Prognosis guarded given multiple complex medical issues. The impression and plan of care has been dictated as directed. : I performed a history and examination of this patient, discussed the same with the dictator. I agree with the dictator's note ,documented as a scribe. Any additional findings or plans will be noted.
[2019-04-25 16:58] LABS: Glucose,Whole Blood 194 mg/dL (75-99)
--- NOTE | 2019-04-25 17:03 | PN ---
PROGRESS NOTE The patient is seen for follow up for acute kidney injury, severe volume overload. The patient is maintained on dialysis mainly for ultrafiltration. She had about 3 liters of ultrafiltration yesterday and we were able to get about 2.6 liters today. Today is her third consecutive treatment. The patient continues to have urine output as well, about 200 to 300 per shift. PHYSICAL EXAMINATION: On examination today, blood pressure was 103/54, heart rate 78 per minute, she is afebrile. Examination of the heart: S1 and S2. Examination of the lungs: Bilateral breath sounds are heard. Abdomen is soft, nontender, obese. Examination of the lower extremities shows edema 4+ bilaterally, upper and lower extremities. EARTH MOVER examination grossly intact. LABORATORY DATA: Laboratories show hemoglobin 9.0, sodium 138, potassium 3.9, chloride 103, BUN 29, creatinine 1.72. ASSESSMENT: 1. Acute kidney injury, ATN which improved since admission with creatinine coming down to about 1.3 to 1.4 mg/dL from 5.6. The patient is maintained on daily ultrafiltration. Her creatinine is slightly higher today. We will continue to monitor for now. She is not receiving dialysis but only ultrafiltration. No nephrotoxic agents on board at this time. Blood pressure has been low on and off and patient is maintained on midodrine. 2. Severe volume overload. We have had about 7 liters of fluid off over the last three days. Continue with the Lasix drip as well for now. I will switch it to intravenous push Lasix tomorrow. 3. Diabetes. 4. Hyperkalemia on initial admission, currently resolved. PLAN: Repeat ultrafiltration in a.m. Discontinue Lasix drip in a.m. and switch to intravenous push Lasix. I will also add fluid restriction. MMODL / IJN: [id number] /
[2019-04-25] MEDS ORDERED: MIDODRINE 5 MG TAB PO PRN (18:51)
[2019-04-25] MEDS: ARIPiprazole 5 MG TAB PO SCH (20:17)
[2019-04-25] MEDS: CHOLECALCIFEROL 1,000 UNIT TAB PO SCH (20:17)
[2019-04-25] MEDS: ATORVASTATIN 40 MG TAB PO SCH (20:17)
[2019-04-25 20:45] LABS: Glucose,Whole Blood 200 mg/dL (75-99)
[2019-04-25] MEDS: INSULIN DETEMIR (LEVEMIR) 100 UNIT/ML SYR SQ SCH (21:47)
--- NOTE | 2019-04-25 23:18 | PN ---
PROGRESS NOTE DATE OF SERVICE: 04/25/2019 REASON FOR FOLLOWUP: Leukocytosis, possible abdominal source. INTERVAL HISTORY: The patient is currently afebrile. She has been breathing comfortably. The patient denies having any chest pain. Occasional cough. No nausea, no vomiting. No abdominal pain. No diarrhea. PHYSICAL EXAMINATION: On examination, her blood pressure is 106/46, pulse of 60, temperature 97.7. She is 100% on 2 L nasal cannula. General description is an elderly female lying in bed in no distress. RESPIRATORY SYSTEM: Unlabored breathing with decreased breath sounds at the base. No wheeze. HEART: S1, S2. Regular rate and rhythm. ABDOMEN: Soft. No tenderness. LABS: Hemoglobin 9, white count 15,000. BUN of 29, creatinine 1.72. DIAGNOSTIC IMPRESSION AND PLAN: Patient with leukocytosis which is likely multifactorial with initial concern for possible abdominal source. The patient did have overall improvement, but now showing worsening of the white count; question of possible oropharyngeal candidiasis. Unfortunately, Diflucan could not be used because of the amiodarone the patient is on. Will have to add Eraxis and monitor her white count closely. Continue with supportive care. MMODL / IJN: [id number] /
[2019-04-26] MEDS: metroNIDAZOLE-NS PMX 500 MG in SALINE 1 100ML.BAG IVPB SCH ×2 (00:06→09:42)
[2019-04-26] MEDS: FUROSEMIDE 100 MG in SODIUM CHLORIDE 0.9% 90 ML IV SCH ×2 (01:13→17:16)
[2019-04-26] MEDS: GABAPENTIN 100 MG CAP PO SCH ×2 (06:18→21:48)
[2019-04-26] MEDS: MIDODRINE 5 MG TAB PO SCH ×3 (06:18→18:02)
[2019-04-26 06:59] LABS: Glucose,Whole Blood 137 mg/dL (75-99)
[2019-04-26] MEDS: INSULIN ASPART (NovoLOG) 100 UNIT/ML VIAL SQ SCH ×7 (07:16→21:48)
[2019-04-26] MEDS: BUDESONIDE 1 MG/2 ML NEBU INHALATION SCH ×2 (07:40→20:39)
[2019-04-26] MEDS: CEFEPIME 2 GM in SODIUM CHLORIDE 0.9% 100 ML IVPB SCH (09:42)
[2019-04-26] MEDS: NYSTATIN 100,000 UNIT/ML SUSP 500,000 UNIT/5 ML CUP PO SCH ×4 (09:43→21:48)
[2019-04-26] MEDS ORDERED: ANIDULAFUNGIN 200 MG in SODIUM CHLORIDE 0.9% 200 ML IVPB ONE (11:04)
[2019-04-26 11:52] LABS: Glucose,Whole Blood 166 mg/dL (75-99)
--- NOTE | 2019-04-26 12:04 | P.PN ---
Subjective Progress Note Date: 04/26/19 This is 74-year-old female patient with history of diastolic congestive heart failure, diabetes, hypertension, coronary artery disease with prior stent placement, chronic lower back pain, history of cervical cancer, originally admitted to the hospital with complaints of shortness of breath and abdominal di scomfort. Patient had been in the intensive care unit, she is now being followed on the cardiac unit. Resting comfortably in bed today on my examination. She continues to be on IV Lasix drip along with Zaroxolyn 5 twice a day. She appears to be putting out urine according to the documentation, w eight remains unchanged. I pressure 104/60 with a heart rate in the 70s. Sodium 138, potassium 4.3, BUN 34, creatinine 1.4. Magnesium 1.8. 04/26/2019 Patient was seen and examined this morning, overall doing better. Blood pressure 110/48 with a heart rate in the 60s, no lab data today. Objective - Vital Signs Vital signs: Vital Signs Temp 97.9 F 04/26/19 07:00 Pulse 141 H 04/26/19 07:00 Resp 14 04/26/19 07:00 BP 109/71 04/26/19 07:00 Pulse Ox 98 04/26/19 05:02 Intake & Output 04/25/19 04/26/19 04/26/19 18:59 06:59 18:59 Intake Total 300 275.834 Output Total 2650 100 Balance -2350 175.834 Weight 185 kg Intake: IV 180 FUROSEMIDE 80 metroNIDAZOLE-NS PMX 500 100 mg In Saline 1 100ml.bag @ 100 mls/hr IVPB Q8HR [facility] Rx#:[id number] Intake, IV Titration 100 95.834 Amount Furosemide 100 mg In 100 95.834 Sodium Chloride 0.9% 90 ml @ 15 MG/HR 15 mls/hr IV .Q6H40M [facility] Rx#: [id number] Oral 200 Output: Urine 50 100 Hemodialysis 2600 Other: Voiding Method Indwelling Catheter Indwelling Catheter # Bowel Movements 0 ABP, PAP, CO, CI - Last Documented Arterial Blood Pressure 81/52 - Exam HEAD: Normocephalic/atraumatic. EYES: Normal reaction of pupils, equal size. Conjunctiva pink, sclera white. NOSE: Clear with pink turbinates. THROAT: No erythema or exudates. NECK: No masses, no JVD, no thyroid enlargement, no adenopathy. CHEST: No chest wall deformity. Symmetrical expansion. LUNGS: Diminished air entry, no crackles, no wheezes CVS: Regular rate and rhythm, normal S1 and S2, no gallops, no murmurs, no rubs ABDOMEN: Soft, obese, with a significant amount of abdominal wall edema. No hepatosplenomegaly, normal bowel sounds, no guarding or rigidity. EXTREMITIES: No clubbing, no cyanosis, 2+ pulses and upper and lower extremities. Significant amount of upper and lower extremity edema anasarca, and edema of abdominal wall MUSCULOSKELETAL: Muscle strength and tone normal. SPINE: No scoliosis or deformity SKIN: Groin folds positive for redness, moisture and rash CENTRAL NERVOUS SYSTEM: Alert and oriented -3, tone is normal in all 4 extremities. - Labs CBC & Chem 7: 04/25/19 05:28 04/25/19 05:28 Labs: Abnormal Lab Results - Last 24 Hours (Table) 04/25/19 04/25/19 04/25/19 Range/Units 11:58 16:56 20:43 POC Glucose (mg/dL) 168 H 194 H 200 H (75-99) mg/dL 04/26/19 04/26/19 Range/Units 06:58 11:51 POC Glucose (mg/dL) 137 H 166 H (75-99) mg/dL Assessment and Plan Plan: Assessment and plan: #1. Acute hypoxic respiratory failure secondary to ventricular tachycardia, A. fib with RVR, congestive heart failure, requiring intubation and mechanical ventilation. Patient was intubated on 04/12/2019 and successfully weaned and extubated on 04/14/2019. Patient is status post synchronized cardioversion 6 with successful conversion to sinus rhythm, cardiac catheterization did not show significant obstructive coronary artery disease #2. Acute exacerbation of congestive heart failure with preserved ventricular systolic function and EF of 50-55% #3. Symptomatic bradycardia with hypotension related to hyperkalemia on presentation, resolved #4. Acute kidney injury secondary to acute tubular necrosis and hypotension and bradycardia, improving #5. Leukocytosis, patient is empirically covered with Rocephin and vancomycin has had no fever. Urine and blood cultures have shown no growth. on 04/23/2019 patient remains on combination of cefepime and Flagyl, and urine and blood cultures remain negative thus far, with no febrile episodes #6. Hyperkalemia secondary to a KAMILAH resolved #7. Insulin dependent diabetes mellitus #8. History of coronary artery disease and previous stent placement #9. Irritable bowel syndrome #10. Chronic urinary incontinence #11. History of cervical cancer previous hysterectomy #12. History of partial parathyroidectomy #13. History of benign essential hypertension #14. Chronic diastolic CHF #15. Status post cardiac catheterization no significant coronary artery disease Plan Patient overall seems to be improving, continues to be on IV Lasix drip. We'll get repeat ultrafiltration. We will follow this patient along with you now on an as-needed basis only, please don't hesitate to call with any questions. DNP note has been reviewed, I agree with a documented findings and plan of care. Patient was seen and examined.
--- NOTE | 2019-04-26 15:01 | P.PN ---
Subjective Progress Note Date: 04/26/19 this is 74 showed female admitted with acute hypoxic respiratory failure, ventricular tachycardia,atrial fibrillation with RVR, CHF, status post mechanical ventilation, anasarca and multiple other medical issues.vital signs stable, maintaining O2 sats in the 90s on2 L nasal cannula.no further arrhythmias reported. Afebrile,WBC 25.2,urine culture negative, blood cultures negative,maintained on empiric antibiotics of Levaquin.chest x-rayconsistent with fluid overload, reporting bilateral pleural effusions with cardiomegaly and bibasilar infiltrate, diffuse interstitial pattern.maintained on Lasix drip, diuresing well with 24-hour I&O reflecting a negative fluid balance. Creatinine 1.5. Currently requiring 7 mics of Levophed. PICC line placed. Maintained on heparin drip. Telemetry sinus rhythm, on beta tish and oral amiodarone. Speech therapy evaluation pending. 04/16/2019 maintained on Lasix and heparin drips.diuresing well with 24-hour I&O reflecting a negative fluid balance. Positive bowel movement today.Sensorium slowly improving -More alert today, answering simple questions, conversing. Reports generalized diffuse discomfort from bed. Levophed weaned off yesterday. Continues on Levaquin, Afebrile, leukocytosis improving. Dialysis catheter removed yesterday. Renal function improving, creatinine 1.3. Currently NPO with significant generalized weakness Sodium improving, 136. Chest x-ray stable reporting similar findings to prior of bibasilar effusions, atelectasis, pneumonia/edema with possible underlying pulmonary artery hypertension. 04/17/19 Lasix drip converted to IV push. Diuresing well with 24-hour I&O reflecting a negative fluid balance. Creatinine 1.25. Magnesium 1.2-magnesium replacement ordered. Patient passed swallow evaluation. Maintained on heparin drip. Evaluated by infectious disease, antibiotics adjusted. Afebrile, WBC 19.1. Chest x-ray reporting persistent bilateral hilar enlargement with cardiomegaly, bilateral consolidation/pleural effusion,diffuse interstitial pattern,. 04/22/2019 Lasix drip initiated yesterday, CXR reporting reporting persistent prominence of hilum, pulmonary arterial hypertension, bibasilar infiltrate, diffuse interstitial pattern. Creatinine stable 1.36 Denies chest pain, palpitations. 04/24/2019 diuresing well on Lasix drip with 24-hour I&O reflecting a negative fluid balance, recent weight unchanged. Creatinine 1.41. Afebrile, maintained on cefepime and Flagyl, as per ID. maintaining O2 sats in the high 90s on 2 L nasal cannula. Temporary Hemodialysis catheter placed yesterday, tolerated procedure well. Received ultrafiltration yesterday scheduled again today. 04/25/2019 receiving ultrafiltration. Creatinine 1.72. Continues on Lasix drip. Maintained on IV antibiotics of cefepime, Flagyl as per infectious disease. Afebrile, WBC up to 15. Diet intake poor, denies nausea vomiting or diarrhea. Denies abdominal pain. Blood sugars stable. 04/26/2019 maintained on Lasix drip, receiving ultrafiltration as per nephrology. Consuming 25%, blood sugars controlled. Afebrile, maintained on IV antibiotics as per ID. Objective - Vital Signs Vital signs: Vital Signs Temp 97.9 F 04/26/19 07:00 Pulse 141 H 04/26/19 07:00 Resp 14 04/26/19 07:00 BP 109/71 04/26/19 07:00 Pulse Ox 98 04/26/19 05:02 Intake & Output 04/25/19 04/26/19 04/26/19 18:59 06:59 18:59 Intake Total 300 275.834 120 Output Total 2650 100 Balance -2350 175.834 120 Weight 185 kg Intake: IV 180 FUROSEMIDE 80 metroNIDAZOLE-NS PMX 500 100 mg In Saline 1 100ml.bag @ 100 mls/hr IVPB Q8HR [facility] Rx#:[id number] Intake, IV Titration 100 95.834 Amount Furosemide 100 mg In 100 95.834 Sodium Chloride 0.9% 90 ml @ 15 MG/HR 15 mls/hr IV .Q6H40M [facility] Rx#: [id number] Oral 200 120 Output: Urine 50 100 Hemodialysis 2600 Other: Voiding Method Indwelling Catheter Indwelling Catheter # Bowel Movements 0 ABP, PAP, CO, CI - Last Documented Arterial Blood Pressure 81/52 - Exam PHYSICAL EXAM: VITAL SIGNS: [as above] GENERAL: sitting up in bed, no acute distress HEENT: Conjunctivae normal. eyes normal. Oral mucosa moist NECK: No JVD. No thyroid enlargement. No LNs CARDIOVASCULAR: S1, S2 regular.. No murmur RESPIRATION: Breath sounds diminished in the bases. No rhonchi or crackles. No wheezing ABDOMEN: Soft, obese, nontender, abdominal wall edema . No guarding. no masses palpable. Bowel sounds heard. LEGS: Upper ,lower extremity edema, anasarca. PSYCHIATRY: Alert and oriented X2, mood and affect normal. NERVOUS SYSTEM: Cranial N 2-12 grossly normal. Moves all 4 limbs. Diffuse weakness, No focal deficits. Skin: Skin folds with nystatin powder - Labs CBC & Chem 7: 04/25/19 05:28 04/25/19 05:28 Labs: Abnormal Lab Results - Last 24 Hours (Table) 04/25/19 04/25/19 04/26/19 Range/Units 16:56 20:43 06:58 POC Glucose (mg/dL) 194 H 200 H 137 H (75-99) mg/dL 04/26/19 Range/Units 11:51 POC Glucose (mg/dL) 166 H (75-99) mg/dL Assessment and Plan Assessment: Acute hypoxic respiratory failure secondary to ventricular tachycardia followed by atrial fibrillation with RVR , required mechanical ventilation and shocking about 6 times. Status post mechanical ventilation Acute CHF exacerbation with systolic dysfunction, EF 50-55%. Significant fluid volume overload, temporary dialysis catheter reinitiated for ultrafiltration. Hypotension, status post pressor dependent Leukocytosis, afebrile, urine and blood cultures negative, on empiric antibiotics Acute metabolic encephalopathy, multifactorial, secondary to all the above Symptomatic bradycardia with hypotension secondary to hyperkalemia, Acute kidney injury secondary to acute tubular necrosis ,hypotension with bradycardia. Hyperkalemia secondary to acute kidney injury Insulin dependent diabetes mellitus. History of coronary artery disease and previous stent placement Irritable bowel syndrome Chronic urinary incontinence History of cervical cancer and previous hysterectomy History of partial parathyroidectomy History of benign essential hypertension Chronic diastolic congestive heart failure Status post cardiac catheterization, reporting no significant obstructive CAD. Morbid obesity, BMI 73.7 Plan: Continue current medication regime ,monitoring and symptomatic treatment. Discussed with nephrology, patient will require ultrafiltration over the weekend and will continue on Lasix drip. IV antibiotics as per ID . Close monitoring of renal function with repeat labs ordered for a.m. Prognosis guarded given multiple complex medical issues. The impression and plan of care has been dictated as directed. : I performed a history and examination of this patient, discussed the same with the dictator. I agree with the dictator's note ,documented as a scribe. Any additional findings or plans will be noted.
[2019-04-26 15:34] LABS: Basophils # (A) 0.1 k/uL (0-0.2); Basophils % (A) 1 %; Eosinophils # (A) 0.6 k/uL (0-0.7); Eosinophils % (A) 4 %; HCT 30.5 % (34.0-46.0); HGB 9.1 gm/dL (11.4-16.0); Hypochromasia Marked; Lymphocytes # (A) 1.8 k/uL (1.0-4.8); Lymphocytes % (A) 11 %; MCH 31.9 pg (25.0-35.0); MCHC 29.9 g/dL (31.0-37.0); MCV 106.6 fL (80.0-100.0); Macrocytosis Moderate; Monocytes % (A) 6 %; Neutrophils # (A) 12.6 k/uL (1.3-7.7); Neutrophils % (A) 77 %; Platelet Count 237 k/uL (150-450); RBC 2.86 m/uL (3.80-5.40); RDW 15.4 % (11.5-15.5); WBC 16.4 k/uL (3.8-10.6)
[2019-04-26] MEDS: traMADol 50 MG TAB PO PRN ×2 (15:44→21:49)
--- NOTE | 2019-04-26 15:49 | PN ---
PROGRESS NOTE The patient is seen for follow up for acute kidney injury on initial admission. The patient's renal function has improved since admission; however, she has severe volume overload. She was dialyzed initially for 2 treatments and then since her renal function had improved, the dialysis catheter was discontinued. Over the last week, the patient's volume status progressively worsened; therefore, another dialysis catheter was placed and the patient was restarted on dialysis, mainly ultrafiltration for volume overload. She has had about 10 liters of ultrafiltration over the last four days. Overall, patient states she is feeling slightly better. She still remains significantly volume overloaded. No significant chest pains or shortness of breath. The patient has an indwelling Solitario catheter. She has fairly good urine output. She is maintained on a Lasix drip which will be discontinued. PHYSICAL EXAMINATION: On examination today, the patient is comfortable, awake. She is not in any acute distress. Blood pressure was 109/71, heart rate 59 per minute, she is afebrile. Examination of the heart: S1 and S2. Examination of the lungs: Bilateral breath sounds are heard. Abdomen is soft, nontender. Examination of the lower extremities shows edema 4+ bilaterally. HEAD GREENSKEEPER examination grossly intact. LABORATORY DATA: Laboratories show from yesterday serum creatinine was 1.72, sodium 138, potassium 3.9. ASSESSMENT: 1. Acute kidney injury on initial admission, currently improved; however, serum creatinine was slightly higher over the last couple of days. The Lasix drip will be discontinued. We will repeat laboratories in a.m. Patient will have treatment for ultrafiltration again today as well as in a.m. 2. Severe volume overload, slowly improving. 3. Hyperkalemia on initial admission, currently improved. 4. Cardiac dysrhythmia, bradycardia, and episode of ventricular tachycardia status post cardiac catheterization with no significant coronary artery disease or need for intervention. 5. Type 2 diabetes. PLAN: Ultrafiltration today and then again in a.m. Discontinue Lasix drip. Switch to intravenous push Lasix. Maintain fluid restriction. MMODL / IJN: [id number] /
[2019-04-26 15:58] LABS: Calcium 9.1 mg/dL (8.4-10.2); Magnesium 1.9 mg/dL (1.6-2.3); Potassium 3.5 mmol/L (3.5-5.1); Total Bilirubin 0.4 mg/dL (0.2-1.3); Total Protein 5.3 g/dL (6.3-8.2)
[2019-04-26] MEDS ORDERED: POTASSIUM CHLORIDE ER 20 MEQ TAB.ER PO STA (16:33)
[2019-04-26 16:58] LABS: Glucose,Whole Blood 142 mg/dL (75-99)
[2019-04-26] MEDS: METOPROLOL TARTRATE 12.5 MG TAB PO SCH ×2 (17:17→21:48)
[2019-04-26] MEDS: APIXABAN 5 MG TAB PO SCH ×2 (17:17→21:48)
[2019-04-26] MEDS: AMIODARONE 200 MG TAB PO SCH (18:01)
[2019-04-26] MEDS: CITALOPRAM HYDROBROMIDE 10 MG TAB PO SCH (18:01)
[2019-04-26] MEDS: metroNIDAZOLE 500 MG TAB PO SCH ×2 (18:01→21:48)
[2019-04-26] MEDS: PANTOPRAZOLE 40 MG TABLET PO SCH (18:02)
[2019-04-26] MEDS: ASPIRIN 81 MG PO SCH (18:02)
[2019-04-26] MEDS: FERROUS SULFATE 325 MG TAB PO SCH (18:02)
[2019-04-26] MEDS: CITALOPRAM HYDROBROMIDE 20 MG TAB PO SCH (18:02)
[2019-04-26] MEDS: FUROSEMIDE 10 MG/ML 4 ML VIAL IV SCH (18:04)
[2019-04-26] MEDS: METOLAZONE 5 MG TAB PO SCH ×2 (18:12→21:49)
--- NOTE | 2019-04-26 19:04 | PN ---
PROGRESS NOTE DATE OF SERVICE: 04/26/2019 REASON FOR FOLLOWUP: Leukocytosis, possible abdominal source versus oropharyngeal candidiasis. INTERVAL HISTORY: The patient is currently afebrile. She has been breathing comfortably. Denies having any chest pain. Occasional cough. No nausea, no vomiting. No abdominal pain or diarrhea. Rather, the patient is constipated; did not have any bowel movement for three days. PHYSICAL EXAMINATION: On examination, blood pressure 109/71 with a pulse of 89, temperature of 97.9. She is 98% on 2 L nasal cannula. General description is an elderly female lying in bed in no distress. RESPIRATORY SYSTEM: Unlabored breathing with decreased breath sounds at the base. No wheeze. HEART: S1, S2. Regular rate and rhythm. ABDOMEN: Soft. No tenderness. LABORATORY DATA: No new labs have been obtained today. DIAGNOSTIC IMPRESSION AND PLAN: Patient with leukocytosis which is likely multifactorial in this patient who did have abdominal source or pneumonia. Patient has clinically responded to cefepime and Flagyl though did have slight worsening of the white count yesterday, for which Eraxis has been added. Will repeat a CBC and monitor her clinical course closely. MMODL / IJN: [id number] /
[2019-04-26 20:36] LABS: Glucose,Whole Blood 158 mg/dL (75-99)
[2019-04-26] MEDS: CHOLECALCIFEROL 1,000 UNIT TAB PO SCH (21:48)
[2019-04-26] MEDS: ARIPiprazole 5 MG TAB PO SCH (21:48)
[2019-04-26] MEDS: ATORVASTATIN 40 MG TAB PO SCH (21:48)
[2019-04-26] MEDS: INSULIN DETEMIR (LEVEMIR) 100 UNIT/ML SYR SQ SCH (21:49)
[2019-04-27] MEDS: FUROSEMIDE 10 MG/ML 4 ML VIAL IV SCH ×4 (00:01→23:17)
[2019-04-27] MEDS: traMADol 50 MG TAB PO PRN ×3 (03:33→20:41)
[2019-04-27 06:48] LABS: Glucose,Whole Blood 137 mg/dL (75-99)
[2019-04-27] MEDS: INSULIN ASPART (NovoLOG) 100 UNIT/ML VIAL SQ SCH ×7 (06:56→20:39)
[2019-04-27] MEDS: MIDODRINE 5 MG TAB PO SCH ×3 (06:57→18:55)
[2019-04-27] MEDS: GABAPENTIN 100 MG CAP PO SCH ×2 (06:57→20:35)
[2019-04-27] MEDS: ONDANSETRON 4 MG/2 ML VIAL IVP PRN (07:45)
[2019-04-27] MEDS: BUDESONIDE 1 MG/2 ML NEBU INHALATION SCH ×2 (08:17→19:46)
[2019-04-27] MEDS: NYSTATIN 100,000 UNIT/ML SUSP 500,000 UNIT/5 ML CUP PO SCH ×4 (09:24→20:35)
[2019-04-27] MEDS: CEFEPIME 2 GM in SODIUM CHLORIDE 0.9% 100 ML IVPB SCH (09:24)
[2019-04-27] MEDS: ANIDULAFUNGIN 100 MG in SODIUM CHLORIDE 0.9% 100 ML IVPB SCH (09:24)
[2019-04-27 09:46] LABS: HCT 28.8 % (34.0-46.0); HGB 8.6 gm/dL (11.4-16.0); Hypochromasia Marked; MCHC 29.9 g/dL (31.0-37.0); MCV 107.1 fL (80.0-100.0); Macrocytosis Marked; Mean Platelet Volume 8.3; Platelet Count 210 k/uL (150-450); RBC 2.69 m/uL (3.80-5.40); RDW 15.9 % (11.5-15.5); WBC 18.3 k/uL (3.8-10.6)
[2019-04-27 09:56] LABS: C Reactive Protein 10.2 mg/L (<10.0); Calcium 8.9 mg/dL (8.4-10.2); Potassium 3.6 mmol/L (3.5-5.1)
--- NOTE | 2019-04-27 10:35 | P.PN ---
Subjective Progress Note Date: 04/27/19 Principal diagnosis: This is a 74-year-old female seen in consultation because of acute kidney injury requiring dialysis. She was initially admitted on 04/10/2019. Her baseline c reatinine was 1 she was admitted with a creatinine of 5.6 and a potassium of 6.7 and was urgently dialyzed. Her acute kidney injury was deemed to be from ATN from hypotension and bradycardia. She was taken off of dialysis she was on IV diuretics. On 04/24/2019, she was started back on ultrafiltration. She was seen today during dialysis and she is able to tolerate it. She continues to feel unwell short of breath is significantly edema and she is morbidly obese. currently she is on nasal cannula oxygen Objective - Vital Signs Vital signs: Vital Signs Temp 98.3 F 04/27/19 03:25 Pulse 72 04/27/19 08:29 Resp 18 04/27/19 03:38 BP 91/42 04/27/19 03:25 Pulse Ox 100 04/27/19 03:25 Intake & Output 04/26/19 04/27/19 04/27/19 18:59 06:59 18:59 Intake Total 240 24 120 Output Total 1999 Balance -1760 24 120 Intake: IV 4 FUROSEMIDE 4 Oral 240 20 120 Output: Hemodialysis 1999 Other: Voiding Method Indwelling Catheter Indwelling Catheter # Bowel Movements 1 ABP, PAP, CO, CI - Last Documented Arterial Blood Pressure 81/52 On examination awake alert oriented HEENT exam no JVP neck is supple no facial asymmetry Lungs are significant for diminished air entry poor inspiratory effort. Heart sounds are unremarkable for any murmur rub gallop but distant Abdomen is obese difficult to examine Extremity exam was replaced edema 10 shiny skin Neurologically awake alert oriented but generalized performed weakness - Labs CBC & Chem 7: 04/26/19 06:00 04/27/19 08:00 Labs: Abnormal Lab Results - Last 24 Hours (Table) 04/26/19 04/26/19 04/26/19 Range/Units 06:00 11:51 15:00 WBC 16.4 H (3.8-10.6) k/uL RBC 2.86 L (3.80-5.40) m/uL Hgb 9.1 L (11.4-16.0) gm/dL Hct 30.5 L (34.0-46.0) % MCV 106.6 H (80.0-100.0) fL MCHC 29.9 L (31.0-37.0) g/dL Neutrophils # 12.6 H (1.3-7.7) k/uL Sodium 136 L (137-145) mmol/L BUN 27 H (7-17) mg/dL Creatinine 2.29 H (0.52-1.04) mg/dL Glucose 155 H (74-99) mg/dL POC Glucose (mg/dL) 166 H (75-99) mg/dL C-Reactive Protein (<10.0) mg/L Total Protein 5.3 L (6.3-8.2) g/dL Albumin 3.0 L (3.5-5.0) g/dL 04/26/19 04/26/19 04/27/19 Range/Units 16:56 20:34 06:47 WBC (3.8-10.6) k/uL RBC (3.80-5.40) m/uL Hgb (11.4-16.0) gm/dL Hct (34.0-46.0) % MCV (80.0-100.0) fL MCHC (31.0-37.0) g/dL Neutrophils # (1.3-7.7) k/uL Sodium (137-145) mmol/L BUN (7-17) mg/dL Creatinine (0.52-1.04) mg/dL Glucose (74-99) mg/dL POC Glucose (mg/dL) 142 H 158 H 137 H (75-99) mg/dL C-Reactive Protein (<10.0) mg/L Total Protein (6.3-8.2) g/dL Albumin (3.5-5.0) g/dL 04/27/19 Range/Units 08:00 WBC (3.8-10.6) k/uL RBC (3.80-5.40) m/uL Hgb (11.4-16.0) gm/dL Hct (34.0-46.0) % MCV (80.0-100.0) fL MCHC (31.0-37.0) g/dL Neutrophils # (1.3-7.7) k/uL Sodium (137-145) mmol/L BUN 25 H (7-17) mg/dL Creatinine 2.16 H (0.52-1.04) mg/dL Glucose 168 H (74-99) mg/dL POC Glucose (mg/dL) (75-99) mg/dL C-Reactive Protein 10.2 H (<10.0) mg/L Total Protein (6.3-8.2) g/dL Albumin (3.5-5.0) g/dL Assessment and Plan Assessment: Impression 1. Acute kidney injury from cardiorenal syndrome, currently on hemodialysis / ultrafiltration started on 04/24/2019, on a daily basis. Admits because of significant volume overload with 3+ edema shortness of breath. 2. Has a Solitario catheter that is draining bloody urine small amounts, therefore there is no evidence of any recovery 3. Morbid obesity 4. Status post cardiac catheterization with no significant coronary disease, on 04/12/2019, ejection fraction is 50-50% on echocardiogram on the same date 5. Type 2 diabetes Recommendation 1. Continue aggressive dialysis to improve volume on board and therefore improved possibility of renal recovery. 2. She has been dialyzed 4 days successively as of today. 3. Next dialysis will be on Monday day after tomorrow patient is requesting not to be dialyzed tomorrow because it makes her feel weak
[2019-04-27 11:48] LABS: Glucose,Whole Blood 181 mg/dL (75-99)
[2019-04-27 12:14] LABS: Band Neutrophils % 1 %; Eosinophils # (M) 0.37 k/uL (0-0.7); Metamyelocytes # (M) 0.37 k/uL (0); Metamyelocytes % 2 %; Monocytes # (M) 2.01 k/uL (0-1.0); Myelocytes # (M) 1.28 k/uL (0); Myelocytes % 7 %; Neutrophils % (M) 73 %; Nucleated Red Blood Cells 0 /100 WBC (0-0); Total Cells Counted 200
[2019-04-27 12:15] LABS: Anisocytosis (M) Present
[2019-04-27 12:18] LABS: Toxic Granulation Present
[2019-04-27] MEDS: PANTOPRAZOLE 40 MG TABLET PO SCH (13:21)
[2019-04-27] MEDS: CITALOPRAM HYDROBROMIDE 10 MG TAB PO SCH (13:21)
[2019-04-27] MEDS: FERROUS SULFATE 325 MG TAB PO SCH (13:21)
[2019-04-27] MEDS: APIXABAN 5 MG TAB PO SCH ×2 (13:21→20:34)
[2019-04-27] MEDS: CITALOPRAM HYDROBROMIDE 20 MG TAB PO SCH (13:21)
[2019-04-27] MEDS: metroNIDAZOLE 500 MG TAB PO SCH ×3 (13:21→20:34)
[2019-04-27] MEDS: METOPROLOL TARTRATE 12.5 MG TAB PO SCH ×2 (13:22→20:35)
[2019-04-27] MEDS: ASPIRIN 81 MG PO SCH (13:22)
[2019-04-27] MEDS: AMIODARONE 200 MG TAB PO SCH (13:22)
[2019-04-27] MEDS: METOLAZONE 5 MG TAB PO SCH ×2 (13:26→20:34)
[2019-04-27] MEDS ORDERED: IOPAMIDOL CONTRAST (ORAL USE) VIAL PO PRN (14:14)
--- NOTE | 2019-04-27 15:40 | PN ---
PROGRESS NOTE DATE OF SERVICE: 04/27/2019 REASON FOR FOLLOWUP: Leukocytosis, possible abdominal source. INTERVAL HISTORY: The patient is currently afebrile. She has been breathing comfortably. The patient denies having any chest pain. Occasional cough. No nausea or vomiting or abdominal pain. Still complaining of constipation. PHYSICAL EXAMINATION: Blood pressure 125/52 with a pulse of 87, temperature 98.2. General description is an elderly female lying in bed in no distress. RESPIRATORY SYSTEM: Unlabored breathing. Clear to auscultation anteriorly. HEART: S1, S2. Regular rate and rhythm. ABDOMEN: Soft. No tenderness. LABS: Hemoglobin 8.6, white count 18.3, BUN of 25, creatinine is 2.16. DIAGNOSTIC IMPRESSION AND PLAN: Patient with leukocytosis which is likely multifactorial, possible abdominal source, now with worsening despite being on good coverage for any abdominal etiology. We will obtain a CT of abdomen and pelvis with oral contrast to better define any source. Continue with cefepime, Flagyl and Eraxis and monitor clinical course closely. MMODL / IJN: [id number] /
[2019-04-27 16:47] LABS: Glucose,Whole Blood 221 mg/dL (75-99)
[2019-04-27 20:28] LABS: Glucose,Whole Blood 227 mg/dL (75-99)
[2019-04-27] MEDS: ARIPiprazole 5 MG TAB PO SCH (20:34)
[2019-04-27] MEDS: ATORVASTATIN 40 MG TAB PO SCH (20:34)
[2019-04-27] MEDS: CHOLECALCIFEROL 1,000 UNIT TAB PO SCH (20:34)
[2019-04-27] MEDS: INSULIN DETEMIR (LEVEMIR) 100 UNIT/ML SYR SQ SCH (21:03)
--- NOTE | 2019-04-27 22:53 | PN ---
PROGRESS NOTE 74-year-old white female, end-stage renal disease, fluid overload, hyperkalemia, ventricular tachycardia, COPD, diastolic CHF. Infectious Disease has been consulted for leukocytosis up to 18,000. Continue on dialysis for the next 4 days to take fluid off her for fluid overload. Consult Infectious Disease for elevated white count. Psych: She has appropriate answers. States she feels about the same as yesterday. Vital signs reviewed. Cardiovascular: S1-S2. Lungs show essentially clear. Endocrine: BMI is over 40. Hematology: 2 to 3+ pedal edema. Neurologic: Cranial nerves are intact 1. PLAN: Continue with dialysis for the next 3 more days. Consult Infectious Disease for elevated white count. Follow up next 24 to 48 hours. MMODL / IJN: [id number] /
[2019-04-28 02:02] LABS: Glucose,Whole Blood 143 mg/dL (75-99)
[2019-04-28] MEDS: traMADol 50 MG TAB PO PRN ×2 (03:51→17:29)
[2019-04-28 06:18] LABS: Basophils # (A) 0.1 k/uL (0-0.2); Basophils % (A) 1 %; Eosinophils # (A) 0.6 k/uL (0-0.7); Eosinophils % (A) 4 %; HCT 27.9 % (34.0-46.0); HGB 8.4 gm/dL (11.4-16.0); Hypochromasia Marked; Lymphocytes # (A) 1.8 k/uL (1.0-4.8); Lymphocytes % (A) 11 %; MCH 32.2 pg (25.0-35.0); MCHC 30.1 g/dL (31.0-37.0); MCV 106.9 fL (80.0-100.0); Macrocytosis Marked; Mean Platelet Volume 7.9; Monocytes # (A) 1.1 k/uL (0-1.0); Monocytes % (A) 6 %; Neutrophils # (A) 13.1 k/uL (1.3-7.7); Neutrophils % (A) 76 %; Platelet Count 223 k/uL (150-450); RBC 2.61 m/uL (3.80-5.40); RDW 15.9 % (11.5-15.5); WBC 17.3 k/uL (3.8-10.6)
[2019-04-28 06:37] LABS: Glucose,Whole Blood 147 mg/dL (75-99)
[2019-04-28] MEDS: GABAPENTIN 100 MG CAP PO SCH ×2 (06:39→21:24)
[2019-04-28] MEDS: INSULIN ASPART (NovoLOG) 100 UNIT/ML VIAL SQ SCH ×7 (06:41→21:26)
[2019-04-28] MEDS: MIDODRINE 5 MG TAB PO SCH ×3 (06:41→17:20)
[2019-04-28 06:46] LABS: Albumin 2.6 g/dL (3.5-5.0); Calcium 9.2 mg/dL (8.4-10.2); Potassium 3.7 mmol/L (3.5-5.1); Total Bilirubin 0.5 mg/dL (0.2-1.3); Total Protein 4.5 g/dL (6.3-8.2)
[2019-04-28] MEDS: BUDESONIDE 1 MG/2 ML NEBU INHALATION SCH ×2 (08:17→20:42)
[2019-04-28] MEDS: CITALOPRAM HYDROBROMIDE 10 MG TAB PO SCH (08:51)
[2019-04-28] MEDS: ASPIRIN 81 MG PO SCH (08:51)
[2019-04-28] MEDS: METOLAZONE 5 MG TAB PO SCH ×2 (08:51→21:25)
[2019-04-28] MEDS: FERROUS SULFATE 325 MG TAB PO SCH (08:51)
[2019-04-28] MEDS: METOPROLOL TARTRATE 12.5 MG TAB PO SCH ×2 (08:51→21:24)
[2019-04-28] MEDS: metroNIDAZOLE 500 MG TAB PO SCH ×3 (08:51→21:24)
[2019-04-28] MEDS: CITALOPRAM HYDROBROMIDE 20 MG TAB PO SCH (08:51)
[2019-04-28] MEDS: APIXABAN 5 MG TAB PO SCH ×2 (08:51→21:24)
[2019-04-28] MEDS: PANTOPRAZOLE 40 MG TABLET PO SCH (08:51)
[2019-04-28] MEDS: FUROSEMIDE 10 MG/ML 4 ML VIAL IV SCH (08:51)
[2019-04-28] MEDS: AMIODARONE 200 MG TAB PO SCH (08:51)
[2019-04-28] MEDS: ANIDULAFUNGIN 100 MG in SODIUM CHLORIDE 0.9% 100 ML IVPB SCH (08:52)
[2019-04-28] MEDS: NYSTATIN 100,000 UNIT/ML SUSP 500,000 UNIT/5 ML CUP PO SCH ×4 (08:52→21:26)
[2019-04-28] MEDS: CEFEPIME 2 GM in SODIUM CHLORIDE 0.9% 100 ML IVPB SCH (08:52)
--- NOTE | 2019-04-28 11:24 | P.PN ---
Subjective Progress Note Date: 04/28/19 Principal diagnosis: This is a 74-year-old female seen in consultation because of acute kidney injury requiring dialysis. She was initially admitted on 04/10/2019. Her baseline c reatinine was 1 she was admitted with a creatinine of 5.6 and a potassium of 6.7 and was urgently dialyzed. Her acute kidney injury was deemed to be from ATN from hypotension and bradycardia. She was taken off of dialysis she was on IV diuretics. On 04/24/2019, she was started back on ultrafiltration. She continues to feel unwell short of breath is significantly edema and she is morbidly obese. currently she is on nasal cannula oxygen She says her appetite is fair no nausea vomiting. No cough. No fever chills. Urine output is none to few cc. I'll send the stable although blood pressure is somewhat low in the 90s HPI; This is a 74-year-old female patient was coronary artery disease and known chronic total occlusion of the LCx as well as known prior stenting of the LAD as well as history of morbid obesity who was admitted to the hospital with acute hypoxic respiratory failure. She underwent heart catheterization that revealed chronic total occlusion of the left circumflex and patent stent in the LAD, finding any change compared to before. The patient was intubated and s ubsequently extubated. Objective - Vital Signs Vital signs: Vital Signs Temp 98.0 F 04/28/19 08:00 Pulse 64 04/28/19 08:30 Resp 20 04/28/19 08:00 BP 100/45 04/28/19 08:00 Pulse Ox 100 04/28/19 08:00 Intake & Output 04/27/19 04/28/19 04/28/19 18:59 06:59 18:59 Intake Total 340 126 Output Total 2500 171 Balance -2160 -171 126 Intake: Oral 340 126 Output: Urine 170 Stool 1 Hemodialysis 2500 Other: Voiding Method Indwelling Catheter Indwelling Catheter Indwelling Catheter # Bowel Movements 1 ABP, PAP, CO, CI - Last Documented Arterial Blood Pressure 81/52 On exam she is morbidly obese female, comfortable with O2 and nasal cannula HEENT exam no JVP neck is supple no facial asymmetry Lungs are clear to auscultation but less than optimal air entry. No crackles were heard no wheezing Heart sounds are unremarkable for any murmur rub gallop Abdomen soft nontender obese difficult to examine Extremity exam was moderate edema to 3+ Neurologically awake alert oriented but has asterixis - Labs CBC & Chem 7: 04/28/19 05:57 04/28/19 05:57 Labs: Abnormal Lab Results - Last 24 Hours (Table) 04/27/19 04/27/19 04/27/19 Range/Units 08:00 11:46 16:47 WBC (3.8-10.6) k/uL RBC (3.80-5.40) m/uL Hgb (11.4-16.0) gm/dL Hct (34.0-46.0) % MCV (80.0-100.0) fL MCHC (31.0-37.0) g/dL RDW (11.5-15.5) % Neutrophils # (1.3-7.7) k/uL Neutrophils # (Manual) 13.50 H (1.3-7.7) k/uL Monocytes # (0-1.0) k/uL Monocytes # (Manual) 2.01 H (0-1.0) k/uL Metamyelocytes # (Man) 0.37 H (0) k/uL Myelocytes # (Manual) 1.28 H (0) k/uL Macrocytosis BUN (7-17) mg/dL Creatinine (0.52-1.04) mg/dL Glucose (74-99) mg/dL POC Glucose (mg/dL) 181 H 221 H (75-99) mg/dL Total Protein (6.3-8.2) g/dL Albumin (3.5-5.0) g/dL 04/27/19 04/28/19 04/28/19 Range/Units 20:26 02:00 05:57 WBC 17.3 H (3.8-10.6) k/uL RBC 2.61 L (3.80-5.40) m/uL Hgb 8.4 L (11.4-16.0) gm/dL Hct 27.9 L (34.0-46.0) % MCV 106.9 H (80.0-100.0) fL MCHC 30.1 L (31.0-37.0) g/dL RDW 15.9 H (11.5-15.5) % Neutrophils # 13.1 H (1.3-7.7) k/uL Neutrophils # (Manual) (1.3-7.7) k/uL Monocytes # 1.1 H (0-1.0) k/uL Monocytes # (Manual) (0-1.0) k/uL Metamyelocytes # (Man) (0) k/uL Myelocytes # (Manual) (0) k/uL Macrocytosis Marked A BUN (7-17) mg/dL Creatinine (0.52-1.04) mg/dL Glucose (74-99) mg/dL POC Glucose (mg/dL) 227 H 143 H (75-99) mg/dL Total Protein (6.3-8.2) g/dL Albumin (3.5-5.0) g/dL 04/28/19 04/28/19 Range/Units 05:57 06:36 WBC (3.8-10.6) k/uL RBC (3.80-5.40) m/uL Hgb (11.4-16.0) gm/dL Hct (34.0-46.0) % MCV (80.0-100.0) fL MCHC (31.0-37.0) g/dL RDW (11.5-15.5) % Neutrophils # (1.3-7.7) k/uL Neutrophils # (Manual) (1.3-7.7) k/uL Monocytes # (0-1.0) k/uL Monocytes # (Manual) (0-1.0) k/uL Metamyelocytes # (Man) (0) k/uL Myelocytes # (Manual) (0) k/uL Macrocytosis BUN 23 H (7-17) mg/dL Creatinine 2.63 H (0.52-1.04) mg/dL Glucose 133 H (74-99) mg/dL POC Glucose (mg/dL) 147 H (75-99) mg/dL Total Protein 4.5 L (6.3-8.2) g/dL Albumin 2.6 L (3.5-5.0) g/dL Assessment and Plan Assessment: Impression 1. Acute kidney injury from cardiorenal syndrome, currently on hemodialysis / ultrafiltration started on 04/24/2019, on a daily basis. He remains edema this and has no urine output therefore no recovery. Blood pressure is somewhat low in the 90s at times that might be contributing to the lack of recovery. She remains volume overloaded with edema and shortness of breath. 2. Has a Solitario catheter that is draining bloody urine small amounts, therefore there is no evidence of any recovery 3. Morbid obesity 4. Status post cardiac catheterization with no significant coronary disease, on 04/12/2019, ejection fraction is 50-50% on echocardiogram on the same date 5. Type 2 diabetes Recommendation 1. Continue aggressive dialysis to improve volume on board and therefore improved possibility of renal recovery. Next dialysis will be tomorrow will a ttempt 2-3 L off over 4 hours 2. She has been dialyzed 4 days successively as of yesterday 3. Discontinue Solitario catheter and watch for urine output and recovery with bladder scans every
[2019-04-28 11:57] LABS: Glucose,Whole Blood 234 mg/dL (75-99)
[2019-04-28] MEDS ORDERED: DARBEPOETIN ALFA 40 MCG/0.4 ML SYRINGE SQ SCH (14:00)
--- NOTE | 2019-04-28 16:48 | PN ---
PROGRESS NOTE DATE OF SERVICE: 04/28/2019 REASON FOR FOLLOWUP: Leukocytosis, possible abdominal source versus UTI. INTERVAL HISTORY: Patient is currently afebrile. She has been breathing comfortably. The patient has been complaining of pain in the abdominal area, mostly epigastric area with some nausea but no vomiting. The patient did have a bowel movement yesterday. No chest pain, shortness of breath or cough. PHYSICAL EXAMINATION: Blood pressure 100/55 with a pulse of 74, temperature 98. She is 100% on 3 L nasal cannula. General description is a middle-aged female lying in bed in no distress. Respiratory system: Unlabored breathing. Clear to auscultation anteriorly. Heart S1, S2. Regular rate and rhythm. Abdomen soft, minimally tender in the epigastric area. No guarding and no rigidity. LABS: Hemoglobin 8.4, white count 17.3, BUN of 23, creatinine 2.63. DIAGNOSTIC IMPRESSION AND PLAN: Patient with leukocytosis which is likely multifactorial. Possible from abdominal source. Unfortunately, we were unable to do a CT abdominal and pelvis because of the size of the patient. UA has been requested, currently pending. We will keep the patient on Eraxis, cefepime and Flagyl and monitor clinical course closely. May benefit from surgical evaluation, especially with abdominal pain in the epigastric area. MMODL / IJN: [id number] /
[2019-04-28 17:04] LABS: Glucose,Whole Blood 178 mg/dL (75-99)
[2019-04-28 17:34] LABS: Amorphous Sediment,Urine Moderate /hpf; Appearance,Urine Turbid (Clear); Bacteria,Urine Occasional /hpf; Bilirubin,Urine 1+ (Negative); Blood,Urine Moderate (Negative); Color,Urine Dark Brown; Glucose,Urine (UA) Negative (Negative); Ketones,Urine 1+ (Negative); Leukocyte Esterase,Urine Large (Negative); Mucus,Urine Rare /hpf; Nitrite,Urine Negative (Negative); Protein,Urine 1+ (Negative); RBC,Urine 136 /hpf (0-5); Specific Gravity,Urine 1.031 (1.001-1.035); Urobilinogen,Urine <2.0 mg/dL (<2.0); WBC,Urine 65 /hpf (0-5)
[2019-04-28 20:31] LABS: Glucose,Whole Blood 165 mg/dL (75-99)
[2019-04-28] MEDS: CHOLECALCIFEROL 1,000 UNIT TAB PO SCH (21:24)
[2019-04-28] MEDS: ATORVASTATIN 40 MG TAB PO SCH (21:24)
[2019-04-28] MEDS: ARIPiprazole 5 MG TAB PO SCH (21:25)
[2019-04-28] MEDS: INSULIN DETEMIR (LEVEMIR) 100 UNIT/ML SYR SQ SCH (21:25)
--- NOTE | 2019-04-28 22:19 | PN ---
PROGRESS NOTE 74-year-old white female. Creatinine is up to mid 2s. Potassium came in 6.7, 5.6 on admission. She had hypotension and bradycardia. To get her off diuresis. Placed on IV diuretics, back on ultrafiltration. Underwent heart catheterization, total occlusion of the left circumflex, patent stent, to LAD. Vital signs reviewed. Cardiovascular S1-S2. Hematology negative Homans. PSYCH: Fair mood and affect. Neurologic: Alert and oriented x3. Temp 98, pulse 64, respiratory 18-20, blood pressure 100/45, pulse 100. White count 17.3, hemoglobin 8.4, BUN 23, creatinine 2.63. Sugars mid 200. ASSESSMENT: 1. Acute kidney injury. 2. Cardiorenal syndrome. Blood pressure is 90s systolic daily. 3. Volume overloaded. 4. Edema. 5. Shortness of breath. 6. Solitario catheter draining bloody urine. 7. Morbid obesity. 8. Ejection fraction 50 to 55%. 9. The patient has type 2 diabetes mellitus. 10.Continue aggressive diuretic diuresis. Next dialysis to be done to continue until patient improves. Otherwise, she will need dialysis 3 times a week long-term. Monitor for urine output. MMODL / IJN: [id number] /
[2019-04-29] MEDS: GABAPENTIN 100 MG CAP PO SCH ×2 (05:50→21:49)
[2019-04-29] MEDS: MIDODRINE 5 MG TAB PO SCH ×3 (05:50→17:40)
[2019-04-29 06:50] LABS: Glucose,Whole Blood 144 mg/dL (75-99)
[2019-04-29 06:57] LABS: Anisocytosis Slight; HCT 27.2 % (34.0-46.0); HGB 8.5 gm/dL (11.4-16.0); Hypochromasia Marked; MCH 33.2 pg (25.0-35.0); MCHC 31.1 g/dL (31.0-37.0); MCV 106.9 fL (80.0-100.0); Macrocytosis Marked; Mean Platelet Volume 8.2; Platelet Count 236 k/uL (150-450); RBC 2.55 m/uL (3.80-5.40); RDW 16.3 % (11.5-15.5); WBC 13.9 k/uL (3.8-10.6)
[2019-04-29] MEDS: INSULIN ASPART (NovoLOG) 100 UNIT/ML VIAL SQ SCH ×7 (07:00→21:51)
[2019-04-29 07:10] LABS: Albumin 2.4 g/dL (3.5-5.0); Calcium 9.1 mg/dL (8.4-10.2); Potassium 3.8 mmol/L (3.5-5.1); Total Bilirubin 0.5 mg/dL (0.2-1.3); Total Protein 4.4 g/dL (6.3-8.2)
[2019-04-29 07:15] LABS: Band Neutrophils % 6 %; Eosinophils # (M) 0.56 k/uL (0-0.7); Lymphocytes # (M) 1.11 k/uL (1.0-4.8); Metamyelocytes # (M) 1.53 k/uL (0); Metamyelocytes % 11 %; Monocytes # (M) 0.83 k/uL (0-1.0); Myelocytes # (M) 0.42 k/uL (0); Myelocytes % 3 %; Neutrophils % (M) 62 %; Nucleated Red Blood Cells 0 /100 WBC (0-0); Total Cells Counted 200
[2019-04-29 07:16] LABS: Anisocytosis (M) Present; Polychromasia Present
[2019-04-29] MEDS: BUDESONIDE 1 MG/2 ML NEBU INHALATION SCH ×2 (08:54→20:04)
[2019-04-29] MEDS: APIXABAN 5 MG TAB PO SCH ×2 (09:44→21:49)
[2019-04-29] MEDS: CITALOPRAM HYDROBROMIDE 10 MG TAB PO SCH (09:44)
[2019-04-29] MEDS: AMIODARONE 200 MG TAB PO SCH (09:44)
[2019-04-29] MEDS: FERROUS SULFATE 325 MG TAB PO SCH (09:44)
[2019-04-29] MEDS: ASPIRIN 81 MG PO SCH (09:44)
[2019-04-29] MEDS: PANTOPRAZOLE 40 MG TABLET PO SCH (09:44)
[2019-04-29] MEDS: METOPROLOL TARTRATE 12.5 MG TAB PO SCH ×2 (09:44→21:49)
[2019-04-29] MEDS: CITALOPRAM HYDROBROMIDE 20 MG TAB PO SCH (09:44)
[2019-04-29] MEDS: traMADol 50 MG TAB PO PRN ×2 (09:44→17:40)
[2019-04-29] MEDS: metroNIDAZOLE 500 MG TAB PO SCH ×3 (09:44→21:49)
[2019-04-29] MEDS: METOLAZONE 5 MG TAB PO SCH ×2 (09:47→21:49)
[2019-04-29] MEDS: NYSTATIN 100,000 UNIT/ML SUSP 500,000 UNIT/5 ML CUP PO SCH ×4 (10:48→21:50)
[2019-04-29] MEDS: ANIDULAFUNGIN 100 MG in SODIUM CHLORIDE 0.9% 100 ML IVPB SCH (10:49)
[2019-04-29 11:51] LABS: Glucose,Whole Blood 162 mg/dL (75-99)
--- NOTE | 2019-04-29 12:32 | PN ---
PROGRESS NOTE Patient is seen for followup for acute kidney injury and severe volume overload. Over the last few days, patient's renal function has deteriorated. She was initially maintained only on ultrafiltration. Last week; however, her creatinine has increased to 3. She has no she had be dialyzed along with fluid removal today. We will set her up for outpatient dialysis since at this time she is oliguric with worsening renal function. PHYSICAL EXAMINATION: On examination today, patient is afebrile. Heart rate 54 per minute, blood pressure 92/64. She examination of the heart S1, S2. Examination of the lungs, decreased breath sounds at bases. Patient is morbidly obese. ABDOMEN: Soft. Morbidly obese. Examination exam of lower extremities shows 3+ edema bilaterally, somewhat improved than about a week ago. STORE CONSULTANT exam grossly intact. LABS: Hemoglobin 8.5, white cell count 13.9, sodium of 136, potassium 3.8, chloride 103, BUN 30, creatinine 3.18. ASSESSMENT: 1. Acute kidney injury, cardiorenal, currently dialysis dependent. The patient was initially started on ultrafiltration only for severe volume overload. However, her renal function has worsened and she will be receiving dialysis along with ultrafiltration today. She will need to be set up for outpatient dialysis for now. 2. Severe volume overload, slowly improving. 3. Hyperkalemia on initial admission now resolved. 4. Morbid obesity. 5. Cardiac dysrhythmia status post cardiac catheterization with no plans for intervention on this admission. No significant coronary artery disease was noted. 6. Type 2 diabetes. PLAN: Continue with midodrine, continue with daily dialysis for now and proceed with outpatient placement. MMODL / IJN: [id number] /
--- NOTE | 2019-04-29 14:20 | PN ---
PROGRESS NOTE ADDENDUM: DATE OF SERVICE: 04/23/2019 Placement of the catheter right internal jugular, not into the groin. MMODL / IJN: [id number] /
[2019-04-29 16:48] LABS: Glucose,Whole Blood 100 mg/dL (75-99)
[2019-04-29 20:16] LABS: Glucose,Whole Blood 198 mg/dL (75-99)
[2019-04-29] MEDS: ATORVASTATIN 40 MG TAB PO SCH (21:49)
[2019-04-29] MEDS: CHOLECALCIFEROL 1,000 UNIT TAB PO SCH (21:49)
[2019-04-29] MEDS: ARIPiprazole 5 MG TAB PO SCH (21:50)
[2019-04-29] MEDS: INSULIN DETEMIR (LEVEMIR) 100 UNIT/ML SYR SQ SCH (21:51)
--- NOTE | 2019-04-29 22:38 | PN ---
PROGRESS NOTE This patient is a 74-year-old white female who had some blood out of her chest port today, severe fluid overload, acute kidney injury, renal dysfunction. Creatinine had increased up to 3. She had some fluid removed. Outpatient dialysis will be needed 3 times a week since she is oliguric, worsening renal function. Port will have to be re- examined due to some blood coming out of her chest port. CARDIOVASCULAR: S1, S2. HEMATOLOGY: Large amounts of edema extremities Lungs show rales at the bases. PSYCH: Fair mood and affect. ASSESSMENT: 1. Acute kidney injury, currently dialysis-dependent. Will need outpatient dialysis 3 times a week. 2. Severe volume overload. 3. Hyperkalemia. 4. Morbid obesity. 5. Cardiac dysrhythmia. 6. Type 2 diabetes mellitus. Continue with midodrine. dialysis. Outpatient placement with catheterization 3 times a week dialysis will be needed as outpatient. MMODL / IJN: [id number] /
--- NOTE | 2019-04-30 00:03 | PN ---
PROGRESS NOTE DATE OF SERVICE: 04/29/2019 REASON FOR FOLLOWUP: Leukocytosis. INTERVAL HISTORY: The patient is currently afebrile. She has been breathing slightly comfortably. Denies having any chest pain or cough. No nausea or vomiting. No diarrhea. PHYSICAL EXAMINATION: Blood pressure 149/88 with a pulse of 91, temperature is 97.5. She is 93% on 2 L nasal cannula. General description is an elderly female lying in bed in no distress. RESPIRATORY SYSTEM: Unlabored breathing with decreased breath sounds at the base. No wheeze. HEART: S1, S2. Regular rate and rhythm. ABDOMEN: Soft. No tenderness. LABS: BUN of 30, creatinine 3.1. Hemoglobin 8.5, white count 13.9. Blood and urine cultures so far negative. DIAGNOSTIC IMPRESSION AND PLAN: Patient with leukocytosis which is likely multifactorial. Concern for possible abdominal source. Unfortunately CT could not be done because of her size. The patient is currently covered with Rocephin and Flagyl to continue. White count has shown a downward trend. Will monitor her clinical course closely. Continue with supportive care. MMODL / IJN: [id number] /
[2019-04-30] MEDS: GABAPENTIN 100 MG CAP PO SCH ×2 (06:10→21:37)
[2019-04-30] MEDS: MIDODRINE 5 MG TAB PO SCH ×3 (06:11→17:25)
[2019-04-30] MEDS: traMADol 50 MG TAB PO PRN ×2 (06:14→16:18)
[2019-04-30] MEDS: INSULIN ASPART (NovoLOG) 100 UNIT/ML VIAL SQ SCH ×7 (06:56→21:36)
[2019-04-30 06:57] LABS: Glucose,Whole Blood 222 mg/dL (75-99)
[2019-04-30] MEDS: ACETAMINOPHEN TAB 325 MG TAB PO PRN ×2 (08:22→21:51)
[2019-04-30] MEDS: PANTOPRAZOLE 40 MG TABLET PO SCH (08:22)
[2019-04-30] MEDS: METOPROLOL TARTRATE 12.5 MG TAB PO SCH ×2 (08:22→21:37)
[2019-04-30] MEDS: CITALOPRAM HYDROBROMIDE 10 MG TAB PO SCH (08:23)
[2019-04-30] MEDS: ANIDULAFUNGIN 100 MG in SODIUM CHLORIDE 0.9% 100 ML IVPB SCH (08:23)
[2019-04-30] MEDS: APIXABAN 5 MG TAB PO SCH ×2 (08:23→21:37)
[2019-04-30] MEDS: FERROUS SULFATE 325 MG TAB PO SCH (08:23)
[2019-04-30] MEDS: CITALOPRAM HYDROBROMIDE 20 MG TAB PO SCH (08:23)
[2019-04-30] MEDS: BUDESONIDE 1 MG/2 ML NEBU INHALATION SCH ×2 (08:23→20:44)
[2019-04-30] MEDS: metroNIDAZOLE 500 MG TAB PO SCH ×3 (08:23→21:37)
[2019-04-30] MEDS: AMIODARONE 200 MG TAB PO SCH (08:23)
[2019-04-30] MEDS: ASPIRIN 81 MG PO SCH (08:24)
[2019-04-30] MEDS: METOLAZONE 5 MG TAB PO SCH ×2 (08:24→21:37)
[2019-04-30] MEDS: NYSTATIN 100,000 UNIT/ML SUSP 500,000 UNIT/5 ML CUP PO SCH ×4 (08:24→21:37)
[2019-04-30 09:47] LABS: Anisocytosis Slight; HCT 27.4 % (34.0-46.0); HGB 8.1 gm/dL (11.4-16.0); Hypochromasia Marked; MCH 32.1 pg (25.0-35.0); MCHC 29.5 g/dL (31.0-37.0); MCV 108.8 fL (80.0-100.0); Macrocytosis Marked; Mean Platelet Volume 8.3; Platelet Count 245 k/uL (150-450); RBC 2.52 m/uL (3.80-5.40); RDW 16.5 % (11.5-15.5)
[2019-04-30 09:49] LABS: Albumin 2.4 g/dL (3.5-5.0); Calcium 8.8 mg/dL (8.4-10.2); Potassium 4.1 mmol/L (3.5-5.1); Total Bilirubin 0.2 mg/dL (0.2-1.3); Total Protein 4.4 g/dL (6.3-8.2)
[2019-04-30 11:35] LABS: Band Neutrophils % 1 %; Eosinophils # (M) 0.84 k/uL (0-0.7); Lymphocytes # (M) 1.68 k/uL (1.0-4.8); Metamyelocytes # (M) 0.42 k/uL (0); Metamyelocytes % 3 %; Monocytes # (M) 1.26 k/uL (0-1.0); Myelocytes # (M) 1.12 k/uL (0); Myelocytes % 8 %; Neutrophils % (M) 61 %; Nucleated Red Blood Cells 0 /100 WBC (0-0); Polychromasia Present; Promyelocytes # (M) 0.14 k/uL (0); Promyelocytes % 1 %; Total Cells Counted 200
[2019-04-30 11:40] LABS: Poikilocytosis (M) Present
[2019-04-30] MEDS: ONDANSETRON 4 MG/2 ML VIAL IVP PRN (11:49)
[2019-04-30 12:19] LABS: Glucose,Whole Blood 231 mg/dL (75-99)
--- NOTE | 2019-04-30 15:08 | PN ---
PROGRESS NOTE DATE OF SERVICE: 04/30/2019 REASON FOR FOLLOWUP: Leukocytosis. INTERVAL HISTORY: The patient is currently afebrile. The patient is breathing comfortably. The patient complains of some pain in the right upper quadrant area, nausea but no vomiting. No chest pain, shortness of breath or cough and no diarrhea. PHYSICAL EXAMINATION: Blood pressure is 115/49, pulse of 59, temperature of 98, she is 99% on 2 L nasal cannula. General description is an elderly female, lying in bed in no distress. RESPIRATORY SYSTEM: Unlabored breathing, clear to auscultation anteriorly. HEART: S1, S2. Regular rate and rhythm. ABDOMEN: Soft, no tenderness. Legs with swelling, no redness. LABS: Hemoglobin is 8.1, white count of 14,000, BUN of 70, creatinine is 2.6. DIAGNOSTIC IMPRESSION AND PLAN: Patient with leukocytosis, likely . Patient has been covered with Rocephin . Will monitor the clinical course closely. Continue supportive care. MMODL / IJN: [id number] /
[2019-04-30 16:56] LABS: Glucose,Whole Blood 264 mg/dL (75-99)
[2019-04-30 20:20] LABS: Glucose,Whole Blood 270 mg/dL (75-99)
[2019-04-30] MEDS: INSULIN DETEMIR (LEVEMIR) 100 UNIT/ML SYR SQ SCH (21:36)
[2019-04-30] MEDS: ATORVASTATIN 40 MG TAB PO SCH (21:37)
[2019-04-30] MEDS: ARIPiprazole 5 MG TAB PO SCH (21:37)
[2019-04-30] MEDS: CHOLECALCIFEROL 1,000 UNIT TAB PO SCH (21:37)
--- NOTE | 2019-04-30 21:49 | PN ---
PROGRESS NOTE DATE OF SERVICE: 04/30/2019 The patient is seen for follow up for acute kidney injury, currently hemodialysis dependent. The patient has no urine output. Serum creatinine has increased significantly to 3.8 and is down to 2.6 after dialysis yesterday. We will dialyze her tomorrow. No significant complaints when the patient was seen this morning. PHYSICAL EXAMINATION: On examination, blood pressure is 115/49, heart rate 59 per minute. Patient is afebrile. EXAMINATION OF THE HEART: S1 and S2. EXAMINATION OF THE LUNGS: Bilateral breat sounds are heard. ABDOMEN: Soft, nontender. Examination of extremities shows 3+ edema bilaterally, upper and lower extremities. SPINNING DOFFER exam shows the patient is weak, but is able to move her extremities. LABS: Show hemoglobin 8.1, white cell count 14.0, sodium 138, potassium 4.1. ASSESSMENT: 1. Acute kidney injury, currently hemodialysis dependent, oliguric. We will dialyze the patient tomorrow. The patient was initially scheduled for treatment today; however, she will be dialyzed tomorrow instead. 2. Severe volume overload, slowly improving. 3. Generalized debility. 4. Hyperkalemia on initial admission, now improved. 5. Type 2 diabetes. 6. Hypotension, currently maintained on midodrine. Blood pressure usually drops during treatment. Currently staying above 100. PLAN: Hemodialysis in a.m. and patient will need outpatient placement. TYLER / FARSHAD: [id number] /
--- NOTE | 2019-04-30 22:08 | PN ---
PROGRESS NOTE This patient is a 74-year-old white female with chronic renal disease, oliguric. She will need outpatient renal dialysis. Waiting to be set up for 3 times a week as an outpatient prior to being discharged. CARDIOVASCULAR: S1, S2. LUNGS: Rales at the base. HEMATOLOGY: Two to three plus pedal edema. NEUROLOGIC: Cranial nerves are intact. PSYCH: Fair mood and affect. Albumin is 2.4. BUN is 19, creatinine 2.66. Sugars are mid 100s to 200s. ASSESSMENT: 1. Insulin-dependent diabetes mellitus. 2. End-stage renal disease with oliguric renal failure. 3. Hypertension. 4. Congestive heart failure. 5. Chronic obstructive pulmonary disease. 6. Lumbar disc disease. Continue current treatments. Set up dialysis as an outpatient. Possible discharge home soon. MMODL / IJN: [id number] /
[2019-05-01] MEDS: GABAPENTIN 100 MG CAP PO SCH (06:49)
[2019-05-01 07:03] LABS: Glucose,Whole Blood 247 mg/dL (75-99)
--- NOTE | 2019-05-01 07:04 | DS ---
DISCHARGE SUMMARY DIAGNOSES: 1. Bradycardia. 2. Hyperkalemia. 3. Leukocytosis. 4. Abdominal pain. 5. Ventricular tachycardia. 6. End-stage renal disease. 7. Oliguric renal failure. 8. Diastolic congestive heart failure. 9. Chronic obstructive pulmonary disease. 10.Neuropathy. 11.Lumbar neuropathy. 12.Severe tinea corporis. 13.Diabetes mellitus. 14.Depression. DISCHARGE MEDICATIONS: 1. Psorcon topically daily. 2. Levaquin 500 mg daily for a week. 3. Humalog 5 a.c. t.i.d. 4. Prednisone 10 mg q.48 hours. 5. Neurontin 100 b.i.d. 6. Tums 1000 q.6. 7. DuoNeb updraft q.i.d. 8. Plavix 75 mg daily. 9. Celexa 30 mg daily. 10.Vitamin D3, 2000 units daily. 11.Abilify 5 mg daily. 12.Iron sulfate 325 daily. 13.Protonix 40 mg daily. 14.Singulair 10 mg daily. 15.Lipitor 40 daily. 16.Aspirin 81 mg daily. 17.Tylenol 650 q.6. 18.Aranesp 40 mcg subcu q.7 days. 19.Cordarone 200 daily. 20.Eliquis 5 mg b.i.d. 21.Flagyl 500 mg t.i.d. for a week. 22.Levemir 30 units subcu daily. 23.Lopressor 12.5 b.i.d. 24.Nystatin 500,000 units q.i.d. for 10 days. 25.Midodrine 10 mg a.c. t.i.d. 26.Pulmicort 1 mg b.i.d. 27.Tramadol 50 mg q.i.d. 28.Lidocaine gel 2% topically t.i.d. 29.Zaroxolyn 5 mg b.i.d. CONDITION: Stable. PROGNOSIS: Guarded. AMBULATE: As tolerated. DIET: Regular. Ambulate with physical therapy. Dialysis will be done 3 times a week at Dr. Elam's office. HOSPITAL COURSE AND EVENTS: She came in with ventricular tachycardia, leukocytosis, bradycardia, abdominal pain. Medications readjusted per [facility] and renal physician. Oliguric renal failure, she will need dialysis 3 times a week for multiple days as an outpatient. Follow up with Cardiology and renal physician's. Continue medications as mentioned above. Prognosis extremely guarded. MMODL / IJN: [id number] /
[2019-05-01] MEDS: MIDODRINE 5 MG TAB PO SCH ×2 (07:06→12:32)
[2019-05-01] MEDS: INSULIN ASPART (NovoLOG) 100 UNIT/ML VIAL SQ SCH ×4 (07:06→12:32)
[2019-05-01 08:40] VITALS: RESP 20
[2019-05-01] MEDS: BUDESONIDE 1 MG/2 ML NEBU INHALATION SCH (08:50)
--- NOTE | 2019-05-01 11:46 | PN ---
PROGRESS NOTE The patient is seen for followup for acute kidney injury currently hemodialysis dependent. Patient is currently seen on dialysis. She is tolerating her treatment well. She denies any significant chest pains or shortness of breath. PHYSICAL EXAMINATION: On examination this morning, blood pressure was 130/46, heart rate 71 per minute. Patient is afebrile. EXAMINATION OF THE HEART: S1 and S2. EXAMINATION OF THE LUNGS: Decreased breath sounds at bases. ABDOMEN: Soft. Morbidly obese. Examination of the lower extremities shows edema 3 to 4+ bilaterally. CONCAVER exam shows patient is able to move all 4 extremities, although she has significant lower extremity weakness mainly from severe edema. LABS: Labs show sodium 138, potassium 4.1, chloride 105, BUN 19, creatinine 2.6. ASSESSMENT: 1. Acute kidney injury, oliguric, currently hemodialysis dependent. Patient will be dialyzed today and then again in a.m. In the meantime, she can be set up for outpatient treatments. 2. Severe fluid overload, slowly improving, although the patient continues to remain significantly volume overloaded, slowly improving, although patient remains with severe edema. 3. Hyperkalemia on initial admission, now resolved. 4. Anemia with no active bleeding noted. The patient is maintained on Aranesp. She is iron replete. 5. Hypotension, maintained on midodrine mainly before dialysis. 6. Morbid obesity. PLAN: Hemodialysis today and then again in a.m. Increase UF as tolerated. MMODL / IJN: [id number] /
[2019-05-01 11:47] LABS: Glucose,Whole Blood 188 mg/dL (75-99)
[2019-05-01 11:49] VITALS: BP 112/53; PULSE 82; TEMP 97.3
[2019-05-01] MEDS: ANIDULAFUNGIN 100 MG in SODIUM CHLORIDE 0.9% 100 ML IVPB SCH (11:50)
[2019-05-01] MEDS: AMIODARONE 200 MG TAB PO SCH (11:50)
[2019-05-01] MEDS: traMADol 50 MG TAB PO PRN (11:50)
[2019-05-01] MEDS: ASPIRIN 81 MG PO SCH (11:50)
[2019-05-01] MEDS: FERROUS SULFATE 325 MG TAB PO SCH (11:50)
[2019-05-01] MEDS: CITALOPRAM HYDROBROMIDE 10 MG TAB PO SCH (11:51)
[2019-05-01] MEDS: METOLAZONE 5 MG TAB PO SCH (11:51)
[2019-05-01] MEDS: metroNIDAZOLE 500 MG TAB PO SCH (11:51)
[2019-05-01] MEDS: APIXABAN 5 MG TAB PO SCH (11:51)
[2019-05-01] MEDS: METOPROLOL TARTRATE 12.5 MG TAB PO SCH (11:51)
[2019-05-01] MEDS: PANTOPRAZOLE 40 MG TABLET PO SCH (11:51)
[2019-05-01] MEDS: CITALOPRAM HYDROBROMIDE 20 MG TAB PO SCH (11:51)
[2019-05-01] MEDS: NYSTATIN 100,000 UNIT/ML SUSP 500,000 UNIT/5 ML CUP PO SCH (11:51)
--- NOTE | 2019-05-01 12:16 | PN ---
PROGRESS NOTE DATE OF SERVICE: 05/01/2019 REASON FOR FOLLOWUP: Leukocytosis, possible abdominal source. INTERVAL HISTORY: Patient is currently afebrile. She is breathing comfortably. Has been complaining of some nausea but no vomiting. No chest pain, shortness of breath or cough. No abdominal pain, no diarrhea. PHYSICAL EXAMINATION: Blood pressure 112/53 with a pulse of 82, temperature 97.8, she is 94% on 2 L. General description is an elderly female lying in bed in no distress. RESPIRATORY SYSTEM: Unlabored breathing, clear to auscultation anteriorly. HEART: S1, S2. Regular rate and rhythm. ABDOMEN: Soft, no tenderness. LABS: No new labs have been obtained today. DIAGNOSTIC IMPRESSION AND PLAN: Patient status more likely abdominal, unfortunately CT could not be done as the patient would not fit into the machine because of the size and the weight. Patient's white count responded well to Rocephin and Flagyl. Will switch antibiotic therapy to Ceftin 250 mg twice a day along with 5 mg sputum for another 7 days with close outpatient followup. MMODL / IJN: [id number] /
--- NOTE | 2019-05-07 23:28 | CDI ---
Documentation Clarification Form Date: 05/08/2019 From: Dario Womack Phone: If you have a question about this query, please contact Shea Li, Trade Facilitator at [phone] between 8am and 5pm. Admit Date: 04/09/2019 Discharge Date: 05/01/2019 Patient Name: Carla Garvin Visit Number: [id number] ATTENTION: The Clinical Documentation Specialists (CDI) and [facility] Coding Staff appreciate your assistance in clarifying documentation. Please respond to the clarification below the line at the bottom and electronically sign. The CDI & [facility] Coding staff will review the response and follow-up if needed. Please note: Queries are made part of the Legal Health Record. If you have any questions, please contact the author of this message via ITS. Dear Tommie Douglas., Need Clarification on Hemo dialysis catheter insertion. Documentation in the Operative Report included "Placement of the dialysis catheter". History/Risk factors: ATN, cardiogenic shock Pre-Operative Diagnosis: ATN Postoperative Diagnosis: ATN Treatment: Dialysis catheter. 04/23 mentioned under fluoroscopic report as IR cvc insert central tunneled (cath hemo Palindrome SP 19 CUR [employer]) but Op report is not described 04/24 mentioned as Placement of ultrasound guided 23 cm dialysis catheter right jugular approach In order to capture the severity of condition, please specify whether the patient underwent Central Tunneled hemodilaysis catheter insertion or Non Tunneled temporary dialysis catheter insertion. Other, Please specify MTDD
--- NOTE | 2019-05-09 23:21 | CDI ---
Documentation Clarification Form Date: 05/10/2019 From: Dario Womack Phone: If you have a question about this query, please contact Shea Li, Sustainment Logistics Analyst at [phone] between 8am and 5pm. Admit Date: 04/09/2019 Discharge Date: 05/01/2019 Patient Name: Carla Garvin Visit Number: [id number] ATTENTION: The Clinical Documentation Specialists (CDI) and [facility] Coding Staff appreciate your assistance in clarifying documentation. Please respond to the clarification below the line at the bottom and electronically sign. The CDI & [facility] Coding staff will review the response and follow-up if needed. Please note: Queries are made part of the Legal Health Record. If you have any questions, please contact the author of this message via ITS. Dear Tommie Douglas., Need Clarification on Hemo dialysis catheter insertion. Documentation in the Operative Report included "Placement of the dialysis catheter". History/Risk factors: ATN, cardiogenic shock Pre-Operative Diagnosis: ATN Postoperative Diagnosis: ATN Treatment: Dialysis catheter. 04/23 mentioned under fluoroscopic report as IR cvc insert central tunneled (cath hemo Palindrome SP 19 CUR Data [employer]) but Op report is not described 04/24 mentioned as Placement of ultrasound guided 23 cm dialysis catheter right jugular approach In order to capture the severity of condition, please specify whether the patient underwent Central Tunneled hemodilaysis catheter insertion or Non Tunneled temporary dialysis catheter insertion. Other, Please specify Date of procedure: 04/23/2019 Central Tunneled hemodialysis catheter insertion MTDD
== END 2019-05-01 15:37 | DRG 673 ==
LOC: EC 12:29 → 2SICU 13:51 → UNDOADMIN 13:51 → 2SICU 14:42 → 3SCARD 14:42 → 2SICU 14:58 → 3SCARD 14:58 → EC 16:24 → 3SCARD 04-20 15:17
PROVIDERS: ADMIT Family Medicine; ATTEND Family Medicine
PROC: 06HY33Z Insertion of Infusion Device into Lower Vein, Percutaneous Approach (ICD-10-PCS; 2019-04-10)
PROC: 03HY32Z Insertion of Monitoring Device into Upper Artery, Percutaneous Approach (ICD-10-PCS; 2019-04-11)
PROC: 5A1D70Z Performance of Urinary Filtration, Intermittent, Less than 6 Hours Per Day (ICD-10-PCS; 2019-04-11)
PROC: 5A1945Z Respiratory Ventilation, 24-96 Consecutive Hours (ICD-10-PCS; 2019-04-11)
PROC: 5A2204Z Restoration of Cardiac Rhythm, Single (ICD-10-PCS; 2019-04-11)
PROC: B2161ZZ Fluoroscopy of Right and Left Heart using Low Osmolar Contrast (ICD-10-PCS; 2019-04-12)
PROC: 02HV33Z Insertion of Infusion Device into Superior Vena Cava, Percutaneous Approach (ICD-10-PCS; 2019-04-16)
PROC: 02HV33Z Insertion of Infusion Device into Superior Vena Cava, Percutaneous Approach (ICD-10-PCS; principal; 2019-04-23 10:45)
PROC: 0JH60XZ Insertion of Tunneled Vascular Access Device into Chest Subcutaneous Tissue and Fascia, Open Approach (ICD-10-PCS; principal; 2019-04-23 10:45)
PROC: 02HV33Z Insertion of Infusion Device into Superior Vena Cava, Percutaneous Approach (ICD-10-PCS; 2019-04-24)
DX: N17.0 Acute kidney failure with tubular necrosis (principal); J96.01 Acute respiratory failure with hypoxia; G93.41 Metabolic encephalopathy; I50.43 Acute on chronic combined systolic (congestive) and diastolic (congestive) heart failure; R57.0 Cardiogenic shock; I21.4 Non-ST elevation (NSTEMI) myocardial infarction; E87.1 Hypo-osmolality and hyponatremia; Z99.11 Dependence on respirator [ventilator] status; I13.2 Hypertensive heart and chronic kidney disease with heart failure and with stage 5 chronic kidney disease, or end stage renal disease; Z68.45 Body mass index [BMI] 70 or greater, adult; E87.2 Acidosis; I47.2 Ventricular tachycardia; D62 Acute posthemorrhagic anemia; J98.11 Atelectasis; T82.855A Stenosis of coronary artery stent, initial encounter; E83.42 Hypomagnesemia; T50.2X5A Adverse effect of carbonic-anhydrase inhibitors, benzothiadiazides and other diuretics, initial encounter; E78.5 Hyperlipidemia, unspecified; E87.5 Hyperkalemia; I25.10 Atherosclerotic heart disease of native coronary artery without angina pectoris; E66.01 Morbid (severe) obesity due to excess calories; R00.1 Bradycardia, unspecified; E11.22 Type 2 diabetes mellitus with diabetic chronic kidney disease; G89.29 Other chronic pain; M41.9 Scoliosis, unspecified; N18.6 End stage renal disease; I25.82 Chronic total occlusion of coronary artery; J44.9 Chronic obstructive pulmonary disease, unspecified; M51.9 Unspecified thoracic, thoracolumbar and lumbosacral intervertebral disc disorder; B35.4 Tinea corporis; F32.9 Major depressive disorder, single episode, unspecified; I27.21 Secondary pulmonary arterial hypertension; K44.9 Diaphragmatic hernia without obstruction or gangrene; K64.9 Unspecified hemorrhoids; K21.9 Gastro-esophageal reflux disease without esophagitis; I27.29 Other secondary pulmonary hypertension; I48.0 Paroxysmal atrial fibrillation; R32 Unspecified urinary incontinence; K58.9 Irritable bowel syndrome, unspecified; F41.9 Anxiety disorder, unspecified; Z95.5 Presence of coronary angioplasty implant and graft; Z85.41 Personal history of malignant neoplasm of cervix uteri; Z99.2 Dependence on renal dialysis; Z87.11 Personal history of peptic ulcer disease; Z90.710 Acquired absence of both cervix and uterus; Z91.040 Latex allergy status; Z88.5 Allergy status to narcotic agent; Z88.0 Allergy status to penicillin; Z88.8 Allergy status to other drugs, medicaments and biological substances; Z91.048 Other nonmedicinal substance allergy status; Z86.79 Personal history of other diseases of the circulatory system; Z86.74 Personal history of sudden cardiac arrest; Z86.73 Personal history of transient ischemic attack (TIA), and cerebral infarction without residual deficits; Z79.4 Long term (current) use of insulin; Z82.5 Family history of asthma and other chronic lower respiratory diseases; Z82.49 Family history of ischemic heart disease and other diseases of the circulatory system; Z80.42 Family history of malignant neoplasm of prostate; Z79.899 Other long term (current) drug therapy; Z79.82 Long term (current) use of aspirin; Z79.2 Long term (current) use of antibiotics; Z79.02 Long term (current) use of antithrombotics/antiplatelets; Z79.01 Long term (current) use of anticoagulants; Z87.01 Personal history of pneumonia (recurrent); Z99.89 Dependence on other enabling machines and devices; Z86.14 Personal history of Methicillin resistant Staphylococcus aureus infection; Z90.49 Acquired absence of other specified parts of digestive tract; Z95.1 Presence of aortocoronary bypass graft; Z98.49 Cataract extraction status, unspecified eye; Z98.890 Other specified postprocedural states
CPT/HCPCS: 36415; 36556; 36558; 36573; 71045; 74018; 76770; 76937; 77001; 80048; 80053; 80202; 81001; 82040; 82533; 82550; 82553; 82805; 83605; 83690; 83735; 83880; 84100; 84132; 84145; 84439; 84443; 84481; 84484; 85025; 85347; 85610; 85730; 86140; 86704; 86706; 87040; 87086; 87340; 90935; 93005; 93306; 93308; 93454; 94002; 94003; 94640; 94760; 96361; 96365; 96366; 96367; 96375; 99291

== ENCOUNTER 2019-07-01 08:22 | Inpatient (IN) | payer MEDICARE, OTHER ==
--- NOTE | 2019-07-01 08:36 | ED ---
General Adult HPI - General Stated complaint: ERIS Time Seen by Provider: 07/01/19 08:27 Source: patient, EMS, RN notes reviewed, old records reviewed - History of Present Illness Initial comments: 74-year-old female presenting for evaluation of dyspnea and hypoxia. Patient is currently on hemodialysis however over the past one week she had been refusing dialysis and was initially planning to go on hospice care. There had apparently been some discussion with family and the patient decided she would reinitiate dialysis. His been approximately one week since her last session. There is been no reported fever. She is coming from [facility]. Patient denies chest pain. She does report increased work of breathing, dyspnea, mild cough. She reports bilateral lower extremity edema. - Related Data Home Medications Medication Instructions Recorded Confirmed Atorvastatin [Lipitor] 40 mg PO HS@209901/30/17 04/09/19 Aspirin EC [Ecotrin Low Dose] 81 mg PO DAILY@89912/14/17 04/09/19 Acetaminophen [Tylenol] 650 mg PO Q6H PRN 01/16/18 04/09/19 Montelukast Sodium [Singulair] 10 mg PO HS@209907/02/18 04/09/19 ARIPiprazole [Abilify] 5 mg PO HS@209909/04/18 04/09/19 Ferrous Sulfate [Iron (65 MG 325 mg PO DAILY@89909/04/18 04/09/19 Elemental)] Pantoprazole [Protonix] 40 mg PO DAILY@89909/04/18 04/09/19 Citalopram Hydrobromide [CeleXA] 10 mg PO DAILY@89901/10/19 04/09/19 Citalopram Hydrobromide [CeleXA] 20 mg PO DAILY@89901/10/19 04/09/19 Ipratropium-Albuterol Nebulize 3 ml INHALATION RT-Q4H PRN 01/10/19 04/09/19 [Duoneb 0.5 mg-3 mg/3 ml Soln] Cholecalciferol [Vitamin D3 (25 2,000 unit PO HS@209901/11/19 04/09/19 Mcg = 1000 Iu)] Clopidogrel [Plavix] 75 mg PO DAILY@89901/11/19 04/09/19 Calcium Carbonate [Tums] 1,000 mg PO Q6H PRN 03/14/19 04/09/19 Diflorasone Diacetate [Psorcon] 1 applic TOPICAL DAILY PRN 04/09/19 04/09/19 INSULIN LISPRO (HumaLOG) [humaLOG] 5 unit SQ AC-TID 04/09/19 04/09/19 Na Phos,M-B/Na Phos,Di-Ba [Fleet 133 ml RECTAL DAILY PRN 04/09/19 04/09/19 Adult] Previous Rx's Medication Instructions Recorded Gabapentin [Neurontin] 100 mg PO BID@0600,2200 #6 03/18/19 predniSONE 10 mg PO Q48H #0 03/18/19 Amiodarone [Cordarone] 200 mg PO DAILY tab 04/30/19 Apixaban [Eliquis] 5 mg PO BID tab 04/30/19 Bisacodyl [Dulcolax] 10 mg RECTAL DAILY PRN supp 04/30/19 Budesonide [Pulmicort] 1 mg INHALATION RT-BID@0900,2100 04/30/19 ml Darbepoetin Alistair [Aranesp] 40 mcg SQ Q7D syringe 04/30/19 Insulin Detemir (Levemir) [Levemir] 30 unit SQ HS@2100 syr 04/30/19 Lidocaine 2% Gel [Xylocaine Jelly 1 applic TOPICAL TID PRN applic 04/30/19 2%] Metolazone [Zaroxolyn] 5 mg PO BID tab 04/30/19 Metoprolol Tartrate [Lopressor] 12.5 mg PO BID tab 04/30/19 Midodrine [ProAmatine] 10 mg PO AC-TID tab 04/30/19 Nystatin 100,000 Unit/ml Susp 500,000 unit PO QID ml 04/30/19 [Mycostatin Oral Susp] traMADol HCl [Ultram] 50 mg PO QID PRN tab 04/30/19 Cefuroxime [Ceftin] 250 mg PO BID #14 tab 05/01/19 metroNIDAZOLE [Flagyl] 500 mg PO TID #30 tab 05/01/19 Allergies Allergy/AdvReac Type Severity Reaction Status Date / Time adhesive Allergy Mild Rash/Hives, Verified 04/09/19 13:23 W/ TAPES, CAN USE PAPER TAPE latex Allergy Mild Rash/Hives- Verified 04/09/19 13:23 Sores codeine Allergy Anaphylaxis Verified 04/09/19 13:23 Penicillins Allergy Anaphylaxis Verified 04/09/19 13:23 propoxyphene napsylate Allergy Anaphylaxis Verified 04/09/19 13:23 [From Darvocet-N 100] tuberculin, purified protein Allergy Rash/Hives Verified 04/09/19 13:23 deriva [tuberculin,purif.prot.deriv.] morphine AdvReac Hallucinations, Verified 04/09/19 13:23 anxious Review of Systems ROS Statement: Those systems with pertinent positive or pertinent negative responses have been documented in the HPI. ROS Other: All systems not noted in ROS Statement are negative. Past Medical History Past Medical History: Asthma, Coronary Artery Disease (CAD), Cancer, Chest Pain / Angina, Heart Failure, CVA/TIA, Diabetes Mellitus, GERD/Reflux, Hyperlipidemia, Hypertension, Memory Impairment, Pneumonia, Sleep Apnea/CPAP/BIPAP, Thyroid Disorder Additional Past Medical History / Comment(s): IDDM, unable to tolerate C-PAP, hx. 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 , states unable to stand-needs yadira lift to transfer., patient states she has constipation with "pain in bowel" and nausea., resides at [facility] on [facility]. History of Any Multi-Drug Resistant Organisms: ESBL, MRSA Date of last positivie culture/infection: 06/05/18 ESBL/ MRSA 04/02/11 MDRO Source:: ESBL URINE / MRSA LEG, CHEST, ANKLE Past Surgical History: Bladder Surgery, Cholecystectomy, Heart Catheterization, Heart Catheterization With Stent, Hysterectomy Additional Past Surgical History / Comment(s): Angioplasty with multiple stents- pt states last stent mar 2018., partial parathyroidectomy, cataracts , I and D of L chest wall abscess and L ankle wound, bladder surgery with implant of stimulator system 02/2010, EGD/colonoscoy, Pain procedures. Past Anesthesia/Blood Transfusion Reactions: No Reported Reaction, Motion Sickness Additional Past Anesthesia/Blood Transfusion Reaction / Comment(s): Pt states she has received blood in the past without reaction. Date of Last Stent Placement:: 06/29/16 Past Psychological History: Anxiety, Depression Smoking Status: Never smoker Past Alcohol Use History: None Reported Past Drug Use History: None Reported - Past Family History Brother(s) Family Medical History: Coronary Artery Disease (CAD) Father Family Medical History: Cancer, Coronary Artery Disease (CAD) Additional Family Medical History / Comment(s): Father had prostate cancer. Mother Family Medical History: Asthma, COPD General Exam General appearance: alert, in distress (Mild respiratory distress), obese Head exam: Present: atraumatic, normocephalic Eye exam: Present: PERRL, EOMI Neck exam: Present: normal inspection, full ROM Respiratory exam: Present: respiratory distress (MILD), rales, decreased breath sounds, other (Right chest wall permacath). Absent: rhonchi Cardiovascular Exam: Present: normal rhythm, bradycardia (30'S), JVD GI/Abdominal exam: Present: soft. Absent: distended, tenderness Extremities exam: Present: pedal edema (2+) Neurological exam: Present: alert, oriented X3, CN II-XII intact. Absent: motor sensory deficit Skin exam: Present: warm, dry, pallor Course Vital Signs 07/01/19 08:32 Temperature 97.8 F Pulse Rate 35 L Respiratory 26 H Rate Blood Pressure 87/55 O2 Sat by Pulse 97 Oximetry - Reevaluation(s) Reevaluation #1: 07/01/19 08:44 Nephrology has been paged to arrange for urgent hemodialysis EKG Findings - EKG Comments: EKG Findings:: EKG: Junctional rhythm rate of 34 QRS duration 146, QTC 380 white QRS with intraventricular block. Procedures - Central Line Placement Left IJ Consent Obtained: verbal consent, emergent situation Patient Placed on Monitor/Pulse Ox: Yes MD Prep: mask, gloves Central Line Prep: Chlorhexidine scrub Ultrasound Used for Placement: Yes Central Line Lumen Inserted: triple Bloods Obtained for Lab: Yes Central Line Position: good blood return, all ports aspirated, flushed, capped, sutured in place with 3-0 nylon Dressing Applied: Tegaderm Post Procedure X-Ray: tip of catheter in good position Patient Tolerated Procedure: well Complications: none Medical Decision Making - Medical Decision Making 74 yo female presenting with dyspnea, hypoxia, abnormal outpatient labs. Lab documentation is reviewed. Patient had a potassium of 7.9 on Ynes 24 which was 3 days ago. I suspect she has a significantly elevated potassium at this time and she has not received hemodialysis in the interval period. Patient is overloaded, moderate respiratory distress and she is bradycardic in a junctional rhythm. She's given hyperkalemia cocktail in the emergency department. She has very poor venous access, she is bradycardic and hypotensive, left IJ triple lumen is placed in the emergency department. Chest x-ray confirming placement, no pneumothorax, consistent with fluid overload. Patient has complete set of repeat labs pending. She has been evaluated both by nephrology and the white goods appliance tech in the emergency department. Case is discussed with Dr. Yi who will accept admission. Critical Care Time Critical Care Time: Yes Total Critical Care Time: 35 Disposition Clinical Impression: ESRD (end stage renal disease), Hyperkalemia, CHF (congestive heart failure) Disposition: ADMITTED IP TO THIS [facility] Condition: Critical Is patient prescribed a controlled substance at d/c from ED?: No Referrals: Chris Yi MD [Primary Care Provider] - 1-2 days Decision to Admit Reason: Admit from [facility] Decision Date: 07/01/19 Decision Time: 09:15
[2019-07-01] MEDS ORDERED: DEXTROSE 50% SYRINGE 50 ML IVP ONE ×2 (08:39→11:23)
[2019-07-01] MEDS ORDERED: CALCIUM GLUCONATE 1 GM in SODIUM CHLORIDE 0.9% 100 ML IVPB ONE (08:39)
[2019-07-01] MEDS ORDERED: SODIUM BICARB 8.4% 50 ML SYR (1 MEQ/ML) IV ONE (08:39)
[2019-07-01] MEDS ORDERED: SODIUM POLYSTYRENE SULFONATE 15 GM/60 ML BOTTLE PO ONE (08:39)
[2019-07-01] MEDS ORDERED: INSULIN REGULAR 100 UNIT/ML VIAL IV ONE (08:39)
[2019-07-01] MEDS ORDERED: ALBUTEROL NEB (CONC) 2.5 MG/0.5 ML INHALATION ONE (08:39)
[2019-07-01] MEDS ORDERED: MIDODRINE 5 MG TAB PO SCH (09:11)
[2019-07-01] MEDS ORDERED: MIDODRINE 5 MG TAB PO PRN (09:16)
[2019-07-01] MEDS ORDERED: NALOXONE 0.4 MG/ML 1 ML VIAL IV PRN (09:33)
--- NOTE | 2019-07-01 09:50 | XR ---
EXAMINATION TYPE: XR chest 1V portable DATE OF EXAM: 07/01/2019 COMPARISON: 04/23/2019 HISTORY: Shortness of breath TECHNIQUE: Single frontal view of the chest is obtained. FINDINGS: There is an enlarged cardiomediastinal silhouette with a dual-lumen large-bore right-sided hemodialysis catheter terminating in the high right atrium. There is minimal pulmonary vascular diya estion. Copious soft tissues partially secure the costophrenic angles however no sizable pleural effu shannan is seen. No focal consolidation. IMPRESSION: Minimal pulmonary vascular congestion that may be on the basis of congestive heart failu re as there is cardiomegaly or noncardiogenic fluid overload is a right-sided hemodialysis catheter i s seen.
[2019-07-01 10:08] LABS: INR 1.1 (<1.2); Partial Thromboplastin Time 24.4 sec (22.0-30.0); Prothrombin Time 10.9 sec (9.0-12.0)
[2019-07-01 10:10] LABS: Albumin 3.1 g/dL (3.5-5.0); Calcium 9.9 mg/dL (8.4-10.2); Magnesium 2.5 mg/dL (1.6-2.3); Total Bilirubin 0.2 mg/dL (0.2-1.3)
[2019-07-01 10:12] LABS: Anisocytosis Slight; Basophils # (A) 0.1 k/uL (0-0.2); Basophils % (A) 1 %; Eosinophils # (A) 0.3 k/uL (0-0.7); Eosinophils % (A) 2 %; HCT 28.5 % (34.0-46.0); HGB 9.1 gm/dL (11.4-16.0); Hypochromasia Marked; Lymphocytes # (A) 0.9 k/uL (1.0-4.8); Lymphocytes % (A) 6 %; MCH 32.9 pg (25.0-35.0); MCHC 31.8 g/dL (31.0-37.0); Macrocytosis Moderate; Monocytes # (A) 0.3 k/uL (0-1.0); Monocytes % (A) 2 %; Neutrophils # (A) 12.4 k/uL (1.3-7.7); Neutrophils % (A) 89 %; Platelet Count 254 k/uL (150-450); RBC 2.76 m/uL (3.80-5.40)
[2019-07-01 10:15] LABS: MCV 103.5 fL (80.0-100.0)
[2019-07-01 10:23] LABS: Potassium 8.2 mmol/L (3.5-5.1)
--- NOTE | 2019-07-01 10:28 | P.CNPUL ---
History of Present Illness Consult date: 07/01/19 (Critical care time 35 minutes) Reason for consult: dyspnea, hypoxemia Chief complaint: Shortness of breath History of present illness: Mrs. Antonio is a morbidly obese 74-year-old female who has chronic renal failure on hemodialysis but a week ago refused hemodialysis planning to go on hospice, over the weekend she has changed her mind and would like to undergo dialysis again came into the hospital with progressive shortness of breath she is a resident of extended care facility she is arousable opens eyes follow simple commands but has ongoing shortness of breath which is worse than before, also have dyspnea and some cough however is afebrile, patient is very bradycardic hypotensive heart rate is 35 junctional rhythm blood pressure is 87/55 saturation however is 97% on supplemental oxygen rotation level few days ago was over 7 repeat levels are pending, white cell count is 14,000 and hemoglobin is 9.1, cold with his negative PT-INR and PTT within normal limits, EKG finding as above, patient is being given potassium lowering cocktail, and patient is in process of being removed from the ER room #1 to room #10 for stat hemodialysis, her chest x-ray showed interstitial edema and cardiomegaly, a triple-lumen catheter was inserted by ER physician and left subclavian Review of Systems All systems: negative Past Medical History Past Medical History: Asthma, Coronary Artery Disease (CAD), Cancer, Chest Pain / Angina, Heart Failure, CVA/TIA, Diabetes Mellitus, GERD/Reflux, Hyperlipidemia, Hypertension, Memory Impairment, Pneumonia, Sleep Apnea/CPAP/BIPAP, Thyroid Disorder Additional Past Medical History / Comment(s): IDDM, unable to tolerate C-PAP, hx. 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 , states unable to stand-needs yadira lift to transfer., patient states she has constipation with "pain in bowel" and nausea., resides at [facility] on the [facility]. History of Any Multi-Drug Resistant Organisms: ESBL, MRSA Date of last positivie culture/infection: 06/05/18 ESBL/ MRSA 04/02/11 MDRO Source:: ESBL URINE / MRSA LEG, CHEST, ANKLE Past Surgical History: Bladder Surgery, Cholecystectomy, Heart Catheterization, Heart Catheterization With Stent, Hysterectomy Additional Past Surgical History / Comment(s): Angioplasty with multiple stents- pt states last stent mar 2018., partial parathyroidectomy, cataracts , I and D of L chest wall abscess and L ankle wound, bladder surgery with implant of stimulator system 02/2010, EGD/colonoscoy, Pain procedures. Past Anesthesia/Blood Transfusion Reactions: No Reported Reaction, Motion Sickness Additional Past Anesthesia/Blood Transfusion Reaction / Comment(s): Pt states she has received blood in the past without reaction. Date of Last Stent Placement:: 06/29/16 Past Psychological History: Anxiety, Depression Smoking Status: Never smoker Past Alcohol Use History: None Reported Past Drug Use History: None Reported - Past Family History Brother(s) Family Medical History: Coronary Artery Disease (CAD) Father Family Medical History: Cancer, Coronary Artery Disease (CAD) Additional Family Medical History / Comment(s): Father had prostate cancer. Mother Family Medical History: Asthma, COPD Medications and Allergies Home Medications Medication Instructions Recorded Confirmed Type Atorvastatin [Lipitor] 40 mg PO HS@209901/30/17 04/09/19 History Aspirin EC [Ecotrin Low Dose] 81 mg PO DAILY@89912/14/17 04/09/19 History Acetaminophen [Tylenol] 650 mg PO Q6H PRN 01/16/18 04/09/19 History Montelukast Sodium [Singulair] 10 mg PO HS@209907/02/18 04/09/19 History ARIPiprazole [Abilify] 5 mg PO HS@209909/04/18 04/09/19 History Ferrous Sulfate [Iron (65 MG 325 mg PO DAILY@89909/04/18 04/09/19 History Elemental)] Pantoprazole [Protonix] 40 mg PO DAILY@89909/04/18 04/09/19 History Citalopram Hydrobromide [CeleXA] 10 mg PO DAILY@89901/10/19 04/09/19 History Citalopram Hydrobromide [CeleXA] 20 mg PO DAILY@89901/10/19 04/09/19 History Ipratropium-Albuterol Nebulize 3 ml INHALATION RT-Q4H PRN 01/10/19 04/09/19 History [Duoneb 0.5 mg-3 mg/3 ml Soln] Cholecalciferol [Vitamin D3 (25 2,000 unit PO HS@2100 01/11/19 04/09/19 History Mcg = 1000 Iu)] Clopidogrel [Plavix] 75 mg PO DAILY@0900 01/11/19 04/09/19 History Calcium Carbonate [Tums] 1,000 mg PO Q6H PRN 03/14/19 04/09/19 History Gabapentin [Neurontin] 100 mg PO BID@0600,2200 #6 03/18/19 04/09/19 Rx predniSONE 10 mg PO Q48H #0 03/18/19 04/09/19 Rx Diflorasone Diacetate [Psorcon] 1 applic TOPICAL DAILY PRN 04/09/19 04/09/19 History INSULIN LISPRO (HumaLOG) [humaLOG] 5 unit SQ AC-TID 04/09/19 04/09/19 History Na Phos,M-B/Na Phos,Di-Ba [Fleet 133 ml RECTAL DAILY PRN 04/09/19 04/09/19 History Adult] Amiodarone [Cordarone] 200 mg PO DAILY tab 04/30/19 Rx Apixaban [Eliquis] 5 mg PO BID tab 04/30/19 Rx Bisacodyl [Dulcolax] 10 mg RECTAL DAILY PRN supp 04/30/19 Rx Budesonide [Pulmicort] 1 mg INHALATION RT-BID@0900,2100 04/30/19 Rx ml Darbepoetin Alistair [Aranesp] 40 mcg SQ Q7D syringe 04/30/19 Rx Insulin Detemir (Levemir) [Levemir] 30 unit SQ HS@2100 syr 04/30/19 Rx Lidocaine 2% Gel [Xylocaine Jelly 1 applic TOPICAL TID PRN applic 04/30/19 Rx 2%] Metolazone [Zaroxolyn] 5 mg PO BID tab 04/30/19 Rx Metoprolol Tartrate [Lopressor] 12.5 mg PO BID tab 04/30/19 Rx Midodrine [ProAmatine] 10 mg PO AC-TID tab 04/30/19 Rx Nystatin 100,000 Unit/ml Susp 500,000 unit PO QID ml 04/30/19 Rx [Mycostatin Oral Susp] traMADol HCl [Ultram] 50 mg PO QID PRN tab 04/30/19 Rx Cefuroxime [Ceftin] 250 mg PO BID #14 tab 05/01/19 Rx metroNIDAZOLE [Flagyl] 500 mg PO TID #30 tab 05/01/19 Rx Allergies Allergy/AdvReac Type Severity Reaction Status Date / Time adhesive Allergy Mild Rash/Hives, Verified 04/09/19 13:23 W/ TAPES, CAN USE PAPER TAPE latex Allergy Mild Rash/Hives- Verified 04/09/19 13:23 Sores codeine Allergy Anaphylaxis Verified 04/09/19 13:23 Penicillins Allergy Anaphylaxis Verified 04/09/19 13:23 propoxyphene napsylate Allergy Anaphylaxis Verified 04/09/19 13:23 [From Darvocet-N 100] tuberculin, purified protein Allergy Rash/Hives Verified 04/09/19 13:23 deriva [tuberculin,purif.prot.deriv.] morphine AdvReac Hallucinations, Verified 04/09/19 13:23 anxious Physical Exam Vitals: Vital Signs Temp Pulse Resp BP Pulse Ox 07/01/19 08:32 97.8 F 35 L 26 H 87/55 97 Intake and Output 06/30/19 07/01/19 07/01/19 22:59 06:59 14:59 Other: Weight 156.489 kg - Constitutional General appearance: disheveled, mild distress, morbidly obese - EENT Eyes: EOMI, PERRLA ENT: hard of hearing Ears: bilateral: normal - Neck Neck: normal ROM Carotids: bilateral: upstroke normal Thyroid: bilateral: normal size - Respiratory Respiratory: bilateral: diminished, rales (At the bases with coronary and) - Cardiovascular Rhythm: regular Heart sounds: normal: S1, S2 - Gastrointestinal General gastrointestinal: decreased bowel sounds, distended - Integumentary +2-3 pedal edema Integumentary: decreased turgor - Musculoskeletal Musculoskeletal: generalized weakness, strength equal bilaterally Results - Laboratory Findings PT/INR, D-dimer PT 10.9 sec (9.0-12.0) 07/01/19 09:41 INR 1.1 (<1.2) 07/01/19 09:41 - Diagnostic Findings Chest x-ray: report reviewed, image reviewed (Finding as noted above. Chest x- ray post-catheter placement in pending) Assessment and Plan Assessment: Severe bradycardia and junctional rhythm Likely severe hyperkalemia Chronic renal failure Acute on chronic diastolic heart failure likely Acute respiratory failure multifactorial processes including fluid overload, obesity hypoventilation, Coronary artery disease History of CVA TIA Diabetes mellitus Obstructive sleep apnea cannot tolerate the CPAP 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 Plan: Emergent dialysis for now We'll monitor clinical course in ICU Further recommendations pending plan of care as per clinical response of patient Patient appears to be stable on supplemental oxygen and with adequate ventilation will monitor closely we'll do ABG Time with Patient: Greater than 30
--- NOTE | 2019-07-01 11:20 | P.NPCON ---
History of Present Illness - Reason for Consult end stage renal disease - History of Present Illness Reason for consultation: End-stage renal disease History of present illness: Patient is a 74-year-old female seen in renal consultation for end-stage renal disease. She is maintained on hemodialysis on Monday schedule. Patient had decided to go hospice and missed 1 week of hemodialysis. However over the weekend she decided she wants to continue with hemodialysis for now. On admission her potassium level was 8.2 and she was noted to be bradycardic with junctional rhythm. She was treated with IV calcium, nebulized albuterol, IV insulin with D50 as well as sodium bicarbonate. She also received a dose of Kayexalate. Patient is severely volume overloaded. Chest x-ray also suggestive of vascular congestion. She is awake and alert. Blood pressures on the lower side which is chronic for her. She is maintained on midodrine outpatient. She is afebrile. Vital signs are stable. General: The patient appeared well nourished and normally developed. HEENT: Head exam is unremarkable. Neck is without jugular venous distension. LUNGS: Breath sounds decreased. HEART: Bradycardic. ABDOMEN: Obese. Nontender. EXTREMITITES: 3+ pitting edema. Past Medical History Past Medical History: Asthma, Coronary Artery Disease (CAD), Cancer, Chest Pain / Angina, Heart Failure, CVA/TIA, Diabetes Mellitus, GERD/Reflux, Hyperlipidemia, Hypertension, Memory Impairment, Pneumonia, Sleep Apnea/CPAP/BIPAP, Thyroid Disorder Additional Past Medical History / Comment(s): IDDM, unable to tolerate C-PAP, hx. 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 , states unable to stand-needs yadira lift to transfer., patient states she has constipation with "pain in bowel" and nausea., resides at [facility] on the [facility]. History of Any Multi-Drug Resistant Organisms: ESBL, MRSA Date of last positivie culture/infection: 06/05/18 ESBL/ MRSA 04/02/11 MDRO Source:: ESBL URINE / MRSA LEG, CHEST, ANKLE Past Surgical History: Bladder Surgery, Cholecystectomy, Heart Catheterization, Heart Catheterization With Stent, Hysterectomy Additional Past Surgical History / Comment(s): Angioplasty with multiple stents- pt states last stent mar 2018., partial parathyroidectomy, cataracts , I and D of L chest wall abscess and L ankle wound, bladder surgery with implant of stimulator system 02/2010, EGD/colonoscoy, Pain procedures. Past Anesthesia/Blood Transfusion Reactions: No Reported Reaction, Motion Sickness Additional Past Anesthesia/Blood Transfusion Reaction / Comment(s): Pt states she has received blood in the past without reaction. Date of Last Stent Placement:: 06/29/16 Past Psychological History: Anxiety, Depression Smoking Status: Never smoker Past Alcohol Use History: None Reported Past Drug Use History: None Reported - Past Family History Brother(s) Family Medical History: Coronary Artery Disease (CAD) Father Family Medical History: Cancer, Coronary Artery Disease (CAD) Additional Family Medical History / Comment(s): Father had prostate cancer. Mother Family Medical History: Asthma, COPD Medications and Allergies Home Medications Medication Instructions Recorded Confirmed Type Atorvastatin [Lipitor] 40 mg PO HS@209901/30/17 04/09/19 History Aspirin EC [Ecotrin Low Dose] 81 mg PO DAILY@89912/14/17 04/09/19 History Acetaminophen [Tylenol] 650 mg PO Q6H PRN 01/16/18 04/09/19 History Montelukast Sodium [Singulair] 10 mg PO HS@209907/02/18 04/09/19 History ARIPiprazole [Abilify] 5 mg PO HS@209909/04/18 04/09/19 History Ferrous Sulfate [Iron (65 MG 325 mg PO DAILY@89909/04/18 04/09/19 History Elemental)] Pantoprazole [Protonix] 40 mg PO DAILY@89909/04/18 04/09/19 History Citalopram Hydrobromide [CeleXA] 10 mg PO DAILY@89901/10/19 04/09/19 History Citalopram Hydrobromide [CeleXA] 20 mg PO DAILY@89901/10/19 04/09/19 History Ipratropium-Albuterol Nebulize 3 ml INHALATION RT-Q4H PRN 01/10/19 04/09/19 History [Duoneb 0.5 mg-3 mg/3 ml Soln] Cholecalciferol [Vitamin D3 (25 2,000 unit PO HS@2100 01/11/19 04/09/19 History Mcg = 1000 Iu)] Clopidogrel [Plavix] 75 mg PO DAILY@0900 01/11/19 04/09/19 History Calcium Carbonate [Tums] 1,000 mg PO Q6H PRN 03/14/19 04/09/19 History Gabapentin [Neurontin] 100 mg PO BID@0600,2200 #6 03/18/19 04/09/19 Rx predniSONE 10 mg PO Q48H #0 03/18/19 04/09/19 Rx Diflorasone Diacetate [Psorcon] 1 applic TOPICAL DAILY PRN 04/09/19 04/09/19 History INSULIN LISPRO (HumaLOG) [humaLOG] 5 unit SQ AC-TID 04/09/19 04/09/19 History Na Phos,M-B/Na Phos,Di-Ba [Fleet 133 ml RECTAL DAILY PRN 04/09/19 04/09/19 History Adult] Amiodarone [Cordarone] 200 mg PO DAILY tab 04/30/19 Rx Apixaban [Eliquis] 5 mg PO BID tab 04/30/19 Rx Bisacodyl [Dulcolax] 10 mg RECTAL DAILY PRN supp 04/30/19 Rx Budesonide [Pulmicort] 1 mg INHALATION RT-BID@0900,209904/30/19 Rx ml Darbepoetin Alistair [Aranesp] 40 mcg SQ Q7D syringe 04/30/19 Rx Insulin Detemir (Levemir) [Levemir] 30 unit SQ HS@2100 syr 04/30/19 Rx Lidocaine 2% Gel [Xylocaine Jelly 1 applic TOPICAL TID PRN applic 04/30/19 Rx 2%] Metolazone [Zaroxolyn] 5 mg PO BID tab 04/30/19 Rx Metoprolol Tartrate [Lopressor] 12.5 mg PO BID tab 04/30/19 Rx Midodrine [ProAmatine] 10 mg PO AC-TID tab 04/30/19 Rx Nystatin 100,000 Unit/ml Susp 500,000 unit PO QID ml 04/30/19 Rx [Mycostatin Oral Susp] traMADol HCl [Ultram] 50 mg PO QID PRN tab 02/25/20 Rx Cefuroxime [Ceftin] 250 mg PO BID #14 tab 05/01/19 Rx metroNIDAZOLE [Flagyl] 500 mg PO TID #30 tab 05/01/19 Rx Allergies Allergy/AdvReac Type Severity Reaction Status Date / Time adhesive Allergy Mild Rash/Hives, Verified 04/09/19 13:23 W/ TAPES, CAN USE PAPER TAPE latex Allergy Mild Rash/Hives- Verified 04/09/19 13:23 Sores codeine Allergy Anaphylaxis Verified 04/09/19 13:23 Penicillins Allergy Anaphylaxis Verified 04/09/19 13:23 propoxyphene napsylate Allergy Anaphylaxis Verified 04/09/19 13:23 [From Darvocet-N 100] tuberculin, purified protein Allergy Rash/Hives Verified 04/09/19 13:23 deriva [tuberculin,purif.prot.deriv.] morphine AdvReac Hallucinations, Verified 04/09/19 13:23 anxious Physical Exam Vitals: Vital Signs Temp Pulse Resp BP Pulse Ox 07/01/19 11:11 45 L 22 97/71 96 07/01/19 11:04 60 07/01/19 10:51 63 07/01/19 10:28 35 L 22 88/51 97 07/01/19 08:32 97.8 F 35 L 26 H 87/55 97 Intake and Output 06/30/19 07/01/19 07/01/19 22:59 06:59 14:59 Other: Weight 156.489 kg Results - Lab Results Most recent lab results Calcium 9.9 mg/dL (8.4-10.2) 07/01/19 09:41 Phosphorus 7.0 mg/dL (2.5-4.5) H 07/01/19 09:41 Magnesium 2.5 mg/dL (1.6-2.3) H 07/01/19 09:41 07/01/19 09:41 07/01/19 09:41 Assessment and Plan Plan: Assessment: 1. End-stage renal disease maintained on hemodialysis on Monday schedule. 2. Hyperkalemia secondary to missed hemodialysis. 3. Hypervolemic hyponatremia. 4. Severe volume overload. 5. Anemia of chronic kidney disease. 6. Hyperphosphatemia secondary to chronic kidney disease. Plan: Hyperkalemia was medically treated with IV insulin and D50, sodium bicarbonate, nebulized albuterol as well as IV calcium. Emergent hemodialysis today and again tomorrow. Add midodrine 10 mg 3 times daily. Check iron studies. Add Aranesp. Add Renvela with meals. Lasix 80 mg IV twice daily. Thank you for the consultation. I will continue to follow patient with you during her hospital stay.
[2019-07-01 11:24] LABS: Glucose,Whole Blood 58 mg/dL (75-99)
[2019-07-01] MEDS: MIDODRINE 5 MG TAB PO SCH ×2 (11:43→17:55)
[2019-07-01 11:59] LABS: Glucose,Whole Blood 65 mg/dL (75-99)
--- NOTE | 2019-07-01 12:02 | XR ---
EXAMINATION TYPE: XR chest 1V confirm line [facility] DATE OF EXAM: 07/01/2019 COMPARISON: 07/01/2019 HISTORY: Line placement. TECHNIQUE: Single frontal view of the chest is obtained. FINDINGS: Dual-lumen right-sided hemodialysis catheter terminates in the high right atrium. Left-george ed central venous catheter terminates in the mid right atrium. Minimal pulmonary vascular congestion throughout with low lung volumes. Enlarged cardiac mediastinal silhouette. Surgical clips in the neck soft tissues. Copious soft tissues partially seen in the lungs. IMPRESSION: Left central venous catheter and right hemodialysis catheter are both in a similar posit ion from the prior earlier on the same date. Minimal pulmonary vascular congestion remains.
[2019-07-01 12:14] LABS: Glucose,Whole Blood 84 mg/dL (75-99)
[2019-07-01] MEDS: SEVELAMER 800 MG TAB PO SCH ×2 (13:59→18:04)
[2019-07-01] MEDS: DARBEPOETIN ALFA 40 MCG/0.4 ML SYRINGE SQ SCH (14:50)
[2019-07-01 15:52] LABS: Ferritin 179.4 ng/mL (10.0-291.0)
[2019-07-01 15:55] LABS: % Iron Saturation 9.27 (12.00-45.00)
--- NOTE | 2019-07-01 16:15 | P.GSCN ---
History of Present Illness Consult date: 07/01/19 Reason for Consult: Right lower extremity laceration History of present illness: This a 74-year-old female who apparently had her right lower leg lacerated by a monitor during transport. Patient underwent dialysis today she she had approximately 3 L of fluid removed. Patient developed a laceration of her lower extremity due to the transport monitor. Past Medical History Past Medical History: Asthma, Coronary Artery Disease (CAD), Cancer, Chest Pain / Angina, Heart Failure, CVA/TIA, Diabetes Mellitus, GERD/Reflux, Hyperlipidemia, Hypertension, Memory Impairment, Pneumonia, Sleep Apnea/CPAP/BIPAP, Thyroid Disorder Additional Past Medical History / Comment(s): IDDM, unable to tolerate C-PAP, hx. of bronchitis, chronic low back pain- bulging discs, scoliosis, urinary i ncontinence, IBS, gastric ulcers, hiatal hernia, TIA 3 yrs ago-memory impairment, hemorrhoids, anemia, Cervical CA hysterectomy. , states unable to stand-needs yadira lift to transfer., patient states she has constipation with "pain in bowel" and nausea., resides at [facility]. History of Any Multi-Drug Resistant Organisms: ESBL, MRSA Year Discovered:: 06/05/18 ESBL/ MRSA 04/02/11 MDRO Source:: ESBL URINE / MRSA LEG, CHEST, ANKLE Past Surgical History: Bladder Surgery, Cholecystectomy, Heart Catheterization, Heart Catheterization With Stent, Hysterectomy Additional Past Surgical History / Comment(s): Angioplasty with multiple stents- pt states last stent mar 2018., partial parathyroidectomy, cataracts , I and D of L chest wall abscess and L ankle wound, bladder surgery with implant of stimulator system 02/2010, EGD/colonoscoy, Pain procedures. Past Anesthesia/Blood Transfusion Reactions: No Reported Reaction, Motion Sickness Additional Past Anesthesia/Blood Transfusion Reaction / Comm: Pt states she has received blood in the past without reaction. Date of Last Stent Placement:: 06/29/16 Past Psychological History: Anxiety, Depression Additional Psychological History / Comment(s): RESIDES @ [facility]. O2 at /[place]. correction states she is a total lift. Smoking Status: Never smoker Past Alcohol Use History: None Reported Past Drug Use History: None Reported - Past Family History Brother(s) Family Medical History: Coronary Artery Disease (CAD) Father Family Medical History: Cancer, Coronary Artery Disease (CAD) Additional Family Medical History / Comment(s): Father had prostate cancer. Mother Family Medical History: Asthma, COPD Medications and Allergies Home Medications Medication Instructions Recorded Confirmed Type Atorvastatin [Lipitor] 40 mg PO HS@209901/30/17 07/01/19 History Aspirin EC [Ecotrin Low Dose] 81 mg PO DAILY@0900 12/14/17 07/01/19 History Acetaminophen [Tylenol] 650 mg PO Q6H PRN 01/16/18 07/01/19 History Montelukast Sodium [Singulair] 10 mg PO HS@209907/02/18 07/01/19 History ARIPiprazole [Abilify] 5 mg PO HS@209909/04/18 07/01/19 History Pantoprazole [Protonix] 40 mg PO DAILY@0609/04/18 07/01/19 History Citalopram Hydrobromide [CeleXA] 10 mg PO DAILY@0901/10/19 07/01/19 History Citalopram Hydrobromide [CeleXA] 20 mg PO DAILY@89901/10/19 07/01/19 History Ipratropium-Albuterol Nebulize 3 ml INHALATION RT-Q4H PRN 01/10/19 07/01/19 History [Duoneb 0.5 mg-3 mg/3 ml Soln] Clopidogrel [Plavix] 75 mg PO DAILY@0901/11/19 07/01/19 History Calcium Carbonate [Tums] 1,000 mg PO TID-W/MEALS PRN 03/14/19 07/01/19 History Gabapentin [Neurontin] 100 mg PO BID@0600,2200 #6 03/18/19 07/01/19 Rx predniSONE 10 mg PO Q48H #0 03/18/19 07/01/19 Rx INSULIN LISPRO (HumaLOG) [humaLOG] 10 unit SQ AC-TID 04/09/19 07/01/19 History Bisacodyl [Dulcolax] 10 mg RECTAL DAILY PRN supp 04/30/19 07/01/19 Rx Lidocaine 2% Gel [Xylocaine Jelly 1 applic TOPICAL TID PRN applic 04/30/19 07/01/19 Rx 2%] Amiodarone [Cordarone] 200 mg PO DAILY@0900 07/01/19 07/01/19 History Apixaban [Eliquis] 5 mg PO BID@0900,2100 07/01/19 07/01/19 History Bisacodyl [Dulcolax] 10 mg PO Q6H PRN 07/01/19 07/01/19 History Calcium Carbonate [Tums] 1,000 mg PO Q6H PRN 07/01/19 07/01/19 History Collagenase [Santyl] 1 applic TOPICAL Q12H 07/01/19 07/01/19 History Darbepoetin Alistair [Aranesp] 40 mcg SQ MO 07/01/19 07/01/19 History Dulaglutide [Trulicity] 1.5 mg SQ TU 07/01/19 07/01/19 History Furosemide [Lasix] 80 mg PO BID@0900,1700 07/01/19 07/01/19 History Hydrophilic Cream [Triad Cream] 1 applic TOPICAL BID 07/01/19 07/01/19 History Insulin Glargine,Hum.rec.anlog 30 unit SQ HS 07/01/19 07/01/19 History [Lantus Solostar] Insulin Lispro [humaLOG Kwikpen] See Protocol SQ AC-TID 07/01/19 07/01/19 History Metoprolol Tartrate [Lopressor] 12.5 mg PO BID@0900,2100 07/01/19 07/01/19 History Midodrine HCl [ProAmatine] 10 mg PO MOWEFR 07/01/19 07/01/19 History Midodrine HCl [ProAmatine] 10 mg PO SUTUTHSA 07/01/19 07/01/19 History Potassium Chloride ER [K-Dur 10] 10 meq PO DAILY@0900 07/01/19 07/01/19 History traMADol HCL [Ultram] 50 mg PO MOWEFR@0000,1200 07/01/19 07/01/19 History traMADol HCL [Ultram] 50 mg PO SUTUTHSA 07/01/19 07/01/19 History traMADol HCl [Ultram] 100 mg PO MOWEFR@1800 07/01/19 07/01/19 History Allergies Allergy/AdvReac Type Severity Reaction Status Date / Time adhesive Allergy Mild Rash/Hives, Verified 07/01/19 11:31 W/ TAPES, CAN USE PAPER TAPE latex Allergy Mild Rash/Hives- Verified 07/01/19 11:31 Sores codeine Allergy Anaphylaxis Verified 07/01/19 11:31 Penicillins Allergy Anaphylaxis Verified 07/01/19 11:31 propoxyphene napsylate Allergy Anaphylaxis Verified 07/01/19 11:31 [From Darvocet-N 100] tuberculin, purified protein Allergy Rash/Hives Verified 07/01/19 11:31 deriva [tuberculin,purif.prot.deriv.] morphine AdvReac Hallucinations, Verified 07/01/19 11:31 anxious Surgical - Exam Vital Signs Temp Pulse Resp BP Pulse Ox 97.8 F 35 L 26 H 87/55 97 07/01/19 08:32 07/01/19 08:32 07/01/19 08:32 07/01/19 08:32 07/01/19 08:32 Morbidly obese - Integumentary 2 cm laceration on the medial aspect of the right lower extremity. The patient had a compressive dressing on this appeared to be no significant bleeding at this time. Needle extremities are very edematous. Results - Labs 07/01/19 09:41 07/01/19 09:41 Abnormal Lab Results - Last 24 Hours (Table) 07/01/19 07/01/19 07/01/19 Range/Units 09:41 09:41 09:41 WBC 14.0 H (3.8-10.6) k/uL RBC 2.76 L (3.80-5.40) m/uL Hgb 9.1 L (11.4-16.0) gm/dL Hct 28.5 L (34.0-46.0) % MCV 103.5 H D (80.0-100.0) fL RDW 17.0 H (11.5-15.5) % Neutrophils # 12.4 H (1.3-7.7) k/uL Lymphocytes # 0.9 L (1.0-4.8) k/uL Sodium 127 L (137-145) mmol/L Potassium 8.2 H* (3.5-5.1) mmol/L Chloride 90 L (98-107) mmol/L BUN 119 H* (7-17) mg/dL Creatinine 8.33 H* (0.52-1.04) mg/dL Glucose 227 H (74-99) mg/dL POC Glucose (mg/dL) (75-99) mg/dL Phosphorus 7.0 H (2.5-4.5) mg/dL Magnesium 2.5 H (1.6-2.3) mg/dL Iron 28 L (50-170) ug/dL % Saturation 9.27 L (12.00-45.00) Total Protein 5.0 L (6.3-8.2) g/dL Albumin 3.1 L (3.5-5.0) g/dL 07/01/19 07/01/19 Range/Units 11:22 11:58 WBC (3.8-10.6) k/uL RBC (3.80-5.40) m/uL Hgb (11.4-16.0) gm/dL Hct (34.0-46.0) % MCV (80.0-100.0) fL RDW (11.5-15.5) % Neutrophils # (1.3-7.7) k/uL Lymphocytes # (1.0-4.8) k/uL Sodium (137-145) mmol/L Potassium (3.5-5.1) mmol/L Chloride (98-107) mmol/L BUN (7-17) mg/dL Creatinine (0.52-1.04) mg/dL Glucose (74-99) mg/dL POC Glucose (mg/dL) 58 L 65 L (75-99) mg/dL Phosphorus (2.5-4.5) mg/dL Magnesium (1.6-2.3) mg/dL Iron (50-170) ug/dL % Saturation (12.00-45.00) Total Protein (6.3-8.2) g/dL Albumin (3.5-5.0) g/dL Diabetes panel 07/01/19 Range/Units 09:41 Sodium 127 L (137-145) mmol/L Potassium 8.2 H* (3.5-5.1) mmol/L Chloride 90 L (98-107) mmol/L Carbon Dioxide 26 (22-30) mmol/L BUN 119 H* (7-17) mg/dL Creatinine 8.33 H* (0.52-1.04) mg/dL Glucose 227 H (74-99) mg/dL Calcium 9.9 (8.4-10.2) mg/dL AST 15 (14-36) U/L ALT 13 (4-34) U/L Alkaline Phosphatase 50 (38-126) U/L Total Protein 5.0 L (6.3-8.2) g/dL Albumin 3.1 L (3.5-5.0) g/dL Calcium panel 07/01/19 Range/Units 09:41 Calcium 9.9 (8.4-10.2) mg/dL Phosphorus 7.0 H (2.5-4.5) mg/dL Albumin 3.1 L (3.5-5.0) g/dL Pituitary panel 07/01/19 Range/Units 09:41 Sodium 127 L (137-145) mmol/L Potassium 8.2 H* (3.5-5.1) mmol/L Chloride 90 L (98-107) mmol/L Carbon Dioxide 26 (22-30) mmol/L BUN 119 H* (7-17) mg/dL Creatinine 8.33 H* (0.52-1.04) mg/dL Glucose 227 H (74-99) mg/dL Calcium 9.9 (8.4-10.2) mg/dL Adrenal panel 07/01/19 Range/Units 09:41 Sodium 127 L (137-145) mmol/L Potassium 8.2 H* (3.5-5.1) mmol/L Chloride 90 L (98-107) mmol/L Carbon Dioxide 26 (22-30) mmol/L BUN 119 H* (7-17) mg/dL Creatinine 8.33 H* (0.52-1.04) mg/dL Glucose 227 H (74-99) mg/dL Calcium 9.9 (8.4-10.2) mg/dL Total Bilirubin 0.2 (0.2-1.3) mg/dL AST 15 (14-36) U/L ALT 13 (4-34) U/L Alkaline Phosphatase 50 (38-126) U/L Total Protein 5.0 L (6.3-8.2) g/dL Albumin 3.1 L (3.5-5.0) g/dL Assessment and Plan Assessment: Laceration of right lower extremity. Patient will have sterile dressing applied. There is no significant bleeding. Patient's wound was washed. Due to the edema of the lower extremity sutures were not placed.
[2019-07-01 17:16] LABS: Anisocytosis Slight; HCT 29.1 % (34.0-46.0); Hypochromasia Marked; MCH 32.2 pg (25.0-35.0); MCHC 30.8 g/dL (31.0-37.0); MCV 104.5 fL (80.0-100.0); Macrocytosis Moderate; Mean Platelet Volume 8.2; Platelet Count 244 k/uL (150-450); RBC 2.79 m/uL (3.80-5.40); RDW 17.1 % (11.5-15.5); WBC 13.4 k/uL (3.8-10.6)
[2019-07-01 17:39] LABS: Glucose,Whole Blood 37 mg/dL (75-99)
[2019-07-01 17:52] LABS: Glucose,Whole Blood 78 mg/dL (75-99)
[2019-07-01] MEDS: FUROSEMIDE 10 MG/ML 10 ML VIAL IV SCH (21:01)
[2019-07-01 21:28] LABS: Glucose,Whole Blood 156 mg/dL (75-99)
--- NOTE | 2019-07-01 23:08 | HP ---
HISTORY AND PHYSICAL This patient is a 74-year-old white female who came to the hospital with a potassium of 9, end-stage renal disease after missing dialysis over the weekend. She was unable to her eyes, to follow simple commands, at which time she was found to be bradycardic, hypotensive, heart rate in the 30s, blood pressure 87/55. Oxygen was decreased. She was obtunded. She was admitted to the hospital ICU. White count was 14,000, hemoglobin 9.1. She had a intrajugular line placed which is oozing even though she has PT/INR which is normal. EKG as mentioned above. She was given potassium- lowering cocktail. She feels better after dialysis in the ICU at this time. She had a chest x-ray showing interstitial edema, cardiomegaly and oozing of blood from her intrajugular line on the left. PAST MEDICAL HISTORY: Asthma, coronary artery disease, cancer, chest pain, angina, heart failure, CVA, TIA, diabetes mellitus, GERD, dyslipidemia, hypertension, memory impairment, pneumonia, sleep apnea, hypothyroidism, insulin-dependent diabetes mellitus, chronic lumbar pain, urinary incontinence, irritable bowel syndrome, hemorrhoids, anemia, cervical cancer, hysterectomy, Jose Angel lift to transfer, constipation, nausea, ESBL, MRSA, history of angioplasty and multiple stents, partial parathyroidectomy, abscess, left ankle wound, bladder surgery. FAMILY HISTORY: Brother with coronary artery disease. Father with coronary artery disease, cancer. Mother with asthma and COPD. MEDICATIONS: See list. ALLERGIES: CODEINE, LATEX, PENICILLIN, ADHESIVE, TB, MORPHINE. PHYSICAL EXAMINATION: Temperature 97.8, pulse 35 on admission, currently 70. Respiratory rate 20-26, blood pressure 87/55, oxygenation 97. CARDIOVASCULAR: S1, S2. PSYCH: Fair mood and affect. NEUROLOGIC: Cranial nerves intact. Alert and oriented x3. GI: Soft. HEMATOLOGY: Negative Homans. OPHTHALMOLOGICAL: Pupils equal, round, reactive. ASSESSMENT: 1. Severe hyperkalemia. 2. End-stage renal disease. 3. Encephalopathy secondary to the above. 4. Acute on chronic diastolic failure. 5. Chronic obstructive pulmonary disease. 6. Coronary artery disease. 7. History of cerebrovascular accident, transient ischemic attack. 8. Obstructive sleep apnea. 9. Diabetes mellitus. 10.Extended-spectrum beta-lactamase. 11.Methicillin-resistant Staphylococcus aeruginosa in the past. 12.Severe bradycardia, junctional rhythm secondary to possibly severe hyperkalemia. Continue current treatments. Follow up in next 24 to 48 hours. Continue with dialysis. Rule out sepsis. Will correct for hyperkalemia. ICU time 60 minutes. TYLER / FARSHAD: [id number] /
[2019-07-01 23:35] LABS: Anisocytosis Slight; HCT 26.4 % (34.0-46.0); Hypochromasia Marked; MCH 31.8 pg (25.0-35.0); MCHC 30.2 g/dL (31.0-37.0); MCV 105.1 fL (80.0-100.0); Macrocytosis Moderate; Platelet Count 254 k/uL (150-450); RBC 2.51 m/uL (3.80-5.40); RDW 17.3 % (11.5-15.5); WBC 15.6 k/uL (3.8-10.6)
[2019-07-02] MEDS ORDERED: INSULIN REGULAR 100 UNIT/ML VIAL IV ONE ×2 (00:36→06:30)
[2019-07-02] MEDS ORDERED: DEXTROSE 50% SYRINGE 50 ML IVP STA ×2 (00:36→06:30)
[2019-07-02] MEDS ORDERED: SODIUM BICARB 8.4% 50 ML SYR (1 MEQ/ML) IV STA ×2 (00:36→01:01)
[2019-07-02 02:54] LABS: Glucose,Whole Blood 118 mg/dL (75-99)
[2019-07-02 05:08] LABS: Anisocytosis Slight; Basophils # (A) 0.1 k/uL (0-0.2); Basophils % (A) 1 %; Eosinophils # (A) 0.4 k/uL (0-0.7); Eosinophils % (A) 3 %; HGB 7.2 gm/dL (11.4-16.0); Hypochromasia Marked; Lymphocytes # (A) 1.2 k/uL (1.0-4.8); Lymphocytes % (A) 8 %; MCH 31.3 pg (25.0-35.0); MCHC 29.9 g/dL (31.0-37.0); Macrocytosis Moderate; Monocytes # (A) 0.8 k/uL (0-1.0); Monocytes % (A) 5 %; Neutrophils # (A) 12.1 k/uL (1.3-7.7); Neutrophils % (A) 82 %; Platelet Count 238 k/uL (150-450); RBC 2.29 m/uL (3.80-5.40); RDW 17.4 % (11.5-15.5); WBC 14.8 k/uL (3.8-10.6)
[2019-07-02 05:43] LABS: Albumin 2.7 g/dL (3.5-5.0); Calcium 8.9 mg/dL (8.4-10.2); Magnesium 2.3 mg/dL (1.6-2.3); Phosphorus 5.3 mg/dL (2.5-4.5); Potassium 5.9 mmol/L (3.5-5.1); Total Bilirubin 0.2 mg/dL (0.2-1.3); Total Protein 4.7 g/dL (6.3-8.2)
[2019-07-02] MEDS: SEVELAMER 800 MG TAB PO SCH ×3 (07:20→17:38)
[2019-07-02] MEDS: MIDODRINE 5 MG TAB PO SCH ×3 (07:21→17:37)
--- NOTE | 2019-07-02 07:57 | XR ---
EXAMINATION TYPE: XR chest 1V DATE OF EXAM: 07/02/2019 COMPARISON: 07/01/2019 HISTORY: 74-year-old female line placement TECHNIQUE: Single frontal view of the chest is obtained. FINDINGS: Right-sided double-lumen hemodialysis catheter with tips at the cavoatrial junction. Left IJ CVC tip in the right atrium. Couple surgical clips projecting at the thoracic inlet. Heart remains enlarged. Mild interstitial prominence is unchanged. No consolidation or sizable pleural effusion identified. IMPRESSION: Stable cardiomegaly. No focal consolidation or sizable effusion seen. There may be some residual mild pulmonary vascular congestion.
--- NOTE | 2019-07-02 08:10 | P.PN ---
Subjective Progress Note Date: 07/02/19 Principal diagnosis: Severe bradycardia and junctional rhythm severe hyperkalemia Severe anemia Hypovolemic shock Chronic renal failure Acute on chronic diastolic heart failure likely Acute respiratory failure multifactorial processes including fluid overload, obesity hypoventilation, Coronary artery disease History of CVA TIA Diabetes mellitus Obstructive sleep apnea cannot tolerate the CPAP 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 07/02/2019, patient seen and evaluated examined during the rounds as reviewed medications reviewed, patient underwent hemodialysis yesterday at 3 L of fluid has been removed, blood pressure today is running on the lower side systolic is 82-84, patient still bradycardic heart rate is about 40 junctional rhythm, patient is due for dialysis today, blood is oozing from left IJ triple-lumen catheter and it did not stop by applying pressure and local conservative measures hemoglobin is down to 7.1 patient is getting transfusion of one packed RBC 2 packs of FFP to be given also will give DDAVP discussed with renal service left IJ triple-lumen catheter to be removed will put a right internal jugular triple-lumen catheter, patient may require vasopressors now, labs are reviewed white cell count is still elevated 14.8 hemoglobin is 7.2 platelet count is 238 fraction was reduced to 5.9 BUN/creatinine is 69 /6.14, chest x-ray cardiomegaly interstitial edema and stable position of dialysis catheter, critical care time spent 35 minutes excluding procedure time Mrs. Antonio is a morbidly obese 74-year-old female who has chronic renal failure on hemodialysis but a week ago refused hemodialysis planning to go on hospice, over the weekend she has changed her mind and would like to undergo dialysis again came into the hospital with progressive shortness of breath she is a resident of extended care facility she is arousable opens eyes follow simple commands but has ongoing shortness of breath which is worse than before, also have dyspnea and some cough however is afebrile, patient is very bradycardic hypotensive heart rate is 35 junctional rhythm blood pressure is 87/55 saturation however is 97% on supplemental oxygen rotation level few days ago was over 7 repeat levels are pending, white cell count is 14,000 and hemoglobin is 9.1, cold with his negative PT-INR and PTT within normal limits, EKG finding as above, patient is being given potassium lowering cocktail, and patient is in process of being removed from the ER room #1 to room #10 for stat hemodialysis, her chest x-ray showed interstitial edema and cardiomegaly, a triple-lumen catheter was inserted by ER physician and left IJ Objective - Vital Signs Vital signs: Vital Signs Temp 97.9 F 07/02/19 07:07 Pulse 47 L 07/02/19 07:07 Resp 20 07/02/19 07:07 BP 92/77 07/02/19 07:07 Pulse Ox 92 L 07/02/19 07:07 Intake & Output 07/01/19 07/02/19 07/02/19 18:59 06:59 18:59 Intake Total 480 0 Output Total 3515 40 Balance -3515 440 0 Weight 156.489 kg 152.6 kg Intake: Oral 480 Blood Product 0 Rc As-1 Unit 0 [id number] Output: Urine 15 40 Hemodialysis 3500 Other: Voiding Method Indwelling Catheter Indwelling Catheter - Exam - Constitutional General appearance: disheveled, mild distress, morbidly obese, appears ill - EENT Eyes: EOMI, PERRLA ENT: hard of hearing Ears: bilateral: normal - Neck Neck: normal ROM Carotids: bilateral: upstroke normal Thyroid: bilateral: normal size - Respiratory Respiratory: bilateral: diminished, rales (At the bases with coronary and) - Cardiovascular Rhythm: regular Heart sounds: normal: S1, S2 - Gastrointestinal General gastrointestinal: decreased bowel sounds, distended - Integumentary +2-3 pedal edema, lacerated wound on left leg dry dressing applied, right big toe dry gangrene Integumentary: decreased turgor - Musculoskeletal Musculoskeletal: generalized weakness, strength equal bilaterally, awake and alert - Labs CBC & Chem 7: 07/02/19 04:50 07/02/19 04:50 Labs: Abnormal Lab Results - Last 24 Hours (Table) 07/01/19 07/01/19 07/01/19 Range/Units 09:41 09:41 09:41 WBC 14.0 H (3.8-10.6) k/uL RBC 2.76 L (3.80-5.40) m/uL Hgb 9.1 L (11.4-16.0) gm/dL Hct 28.5 L (34.0-46.0) % MCV 103.5 H D (80.0-100.0) fL MCHC (31.0-37.0) g/dL RDW 17.0 H (11.5-15.5) % Neutrophils # 12.4 H (1.3-7.7) k/uL Lymphocytes # 0.9 L (1.0-4.8) k/uL Sodium 127 L (137-145) mmol/L Potassium 8.2 H* (3.5-5.1) mmol/L Chloride 90 L (98-107) mmol/L BUN 119 H* (7-17) mg/dL Creatinine 8.33 H* (0.52-1.04) mg/dL Glucose 227 H (74-99) mg/dL POC Glucose (mg/dL) (75-99) mg/dL Phosphorus 7.0 H (2.5-4.5) mg/dL Magnesium 2.5 H (1.6-2.3) mg/dL Iron 28 L (50-170) ug/dL % Saturation 9.27 L (12.00-45.00) Total Protein 5.0 L (6.3-8.2) g/dL Albumin 3.1 L (3.5-5.0) g/dL Crossmatch 07/01/19 07/01/19 07/01/19 Range/Units 11:22 11:58 16:59 WBC (3.8-10.6) k/uL RBC (3.80-5.40) m/uL Hgb (11.4-16.0) gm/dL Hct (34.0-46.0) % MCV (80.0-100.0) fL MCHC (31.0-37.0) g/dL RDW (11.5-15.5) % Neutrophils # (1.3-7.7) k/uL Lymphocytes # (1.0-4.8) k/uL Sodium (137-145) mmol/L Potassium 5.9 H (3.5-5.1) mmol/L Chloride (98-107) mmol/L BUN (7-17) mg/dL Creatinine (0.52-1.04) mg/dL Glucose (74-99) mg/dL POC Glucose (mg/dL) 58 L 65 L (75-99) mg/dL Phosphorus (2.5-4.5) mg/dL Magnesium (1.6-2.3) mg/dL Iron (50-170) ug/dL % Saturation (12.00-45.00) Total Protein (6.3-8.2) g/dL Albumin (3.5-5.0) g/dL Crossmatch 07/01/19 07/01/19 07/01/19 Range/Units 16:59 17:38 21:26 WBC 13.4 H (3.8-10.6) k/uL RBC 2.79 L (3.80-5.40) m/uL Hgb 9.0 L (11.4-16.0) gm/dL Hct 29.1 L (34.0-46.0) % MCV 104.5 H (80.0-100.0) fL MCHC 30.8 L (31.0-37.0) g/dL RDW 17.1 H (11.5-15.5) % Neutrophils # (1.3-7.7) k/uL Lymphocytes # (1.0-4.8) k/uL Sodium (137-145) mmol/L Potassium (3.5-5.1) mmol/L Chloride (98-107) mmol/L BUN (7-17) mg/dL Creatinine (0.52-1.04) mg/dL Glucose (74-99) mg/dL POC Glucose (mg/dL) 37 L 156 H (75-99) mg/dL Phosphorus (2.5-4.5) mg/dL Magnesium (1.6-2.3) mg/dL Iron (50-170) ug/dL % Saturation (12.00-45.00) Total Protein (6.3-8.2) g/dL Albumin (3.5-5.0) g/dL Crossmatch 07/01/19 07/01/19 07/02/19 Range/Units 23:10 23:10 01:45 WBC 15.6 H (3.8-10.6) k/uL RBC 2.51 L (3.80-5.40) m/uL Hgb 8.0 L (11.4-16.0) gm/dL Hct 26.4 L (34.0-46.0) % MCV 105.1 H (80.0-100.0) fL MCHC 30.2 L (31.0-37.0) g/dL RDW 17.3 H (11.5-15.5) % Neutrophils # (1.3-7.7) k/uL Lymphocytes # (1.0-4.8) k/uL Sodium (137-145) mmol/L Potassium 6.2 H* (3.5-5.1) mmol/L Chloride (98-107) mmol/L BUN (7-17) mg/dL Creatinine (0.52-1.04) mg/dL Glucose (74-99) mg/dL POC Glucose (mg/dL) (75-99) mg/dL Phosphorus (2.5-4.5) mg/dL Magnesium (1.6-2.3) mg/dL Iron (50-170) ug/dL % Saturation (12.00-45.00) Total Protein (6.3-8.2) g/dL Albumin (3.5-5.0) g/dL Crossmatch See Detail 07/02/19 07/02/19 07/02/19 Range/Units 02:52 04:50 04:50 WBC 14.8 H (3.8-10.6) k/uL RBC 2.29 L (3.80-5.40) m/uL Hgb 7.2 L (11.4-16.0) gm/dL Hct 24.0 L (34.0-46.0) % MCV 105.0 H (80.0-100.0) fL MCHC 29.9 L (31.0-37.0) g/dL RDW 17.4 H (11.5-15.5) % Neutrophils # 12.1 H (1.3-7.7) k/uL Lymphocytes # (1.0-4.8) k/uL Sodium 135 L (137-145) mmol/L Potassium 5.9 H (3.5-5.1) mmol/L Chloride (98-107) mmol/L BUN 69 H (7-17) mg/dL Creatinine 6.14 H (0.52-1.04) mg/dL Glucose 136 H (74-99) mg/dL POC Glucose (mg/dL) 118 H (75-99) mg/dL Phosphorus 5.3 H (2.5-4.5) mg/dL Magnesium (1.6-2.3) mg/dL Iron (50-170) ug/dL % Saturation (12.00-45.00) Total Protein 4.7 L (6.3-8.2) g/dL Albumin 2.7 L (3.5-5.0) g/dL Crossmatch Assessment and Plan Assessment: Hypo-volumic shock Acute blood loss anemia Severe bradycardia and junctional rhythm Likely severe hyperkalemia Chronic renal failure Acute on chronic diastolic heart failure likely Acute respiratory failure multifactorial processes including fluid overload, obesity hypoventilation, Coronary artery disease History of CVA TIA Diabetes mellitus Obstructive sleep apnea cannot tolerate the CPAP 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 Plan: Repeat dialysis today but recommend pulling out no or less amount of fluid as patient appeared dehydrated Blood transfusion FFP DDAVP New central line May need A line Vasopressors as needed Remove old right IJ triple-lumen catheter We'll monitor clinical course in ICU Further recommendations pending plan of care as per clinical response of patient Patient appears to be stable on supplemental oxygen and with adequate ventilation will monitor closely we'll do ABG Time with Patient: Greater than 30
--- NOTE | 2019-07-02 08:36 | P.PN ---
Subjective Patient is seen in follow-up for end-stage renal disease. She tolerated 4 L ultrafiltration yesterday. Potassium level V.9 this morning. She's been oozing from her triple lumen site. Hemoglobin 7.2 this morning. She is currently also receiving a unit of blood. States she feels okay. Vital signs are stable. General: The patient appeared well nourished and normally developed. HEENT: Head exam is unremarkable. Neck is without jugular venous distension. LUNGS: Lungs are clear to auscultation and percussion. Breath sounds decreased. HEART: Rate and Rhythm are regular. ABDOMEN: Soft, obese. EXTREMITITES: 3+ edema. Objective - Vital Signs Vital signs: Vital Signs Temp 97.9 F 07/02/19 07:07 Pulse 47 L 07/02/19 07:07 Resp 20 07/02/19 07:07 BP 92/77 07/02/19 07:07 Pulse Ox 92 L 07/02/19 07:07 Intake & Output 07/01/19 07/02/19 07/02/19 18:59 06:59 18:59 Intake Total 480 0 Output Total 3515 40 Balance -3515 440 0 Weight 156.489 kg 152.6 kg Intake: Oral 480 Blood Product 0 Rc As-1 Unit 0 [id number] Output: Urine 15 40 Hemodialysis 3500 Other: Voiding Method Indwelling Catheter Indwelling Catheter - Labs CBC & Chem 7: 07/02/19 04:50 07/02/19 04:50 Labs: Abnormal Lab Results - Last 24 Hours (Table) 07/01/19 07/01/19 07/01/19 Range/Units 09:41 09:41 09:41 WBC 14.0 H (3.8-10.6) k/uL RBC 2.76 L (3.80-5.40) m/uL Hgb 9.1 L (11.4-16.0) gm/dL Hct 28.5 L (34.0-46.0) % MCV 103.5 H D (80.0-100.0) fL MCHC (31.0-37.0) g/dL RDW 17.0 H (11.5-15.5) % Neutrophils # 12.4 H (1.3-7.7) k/uL Lymphocytes # 0.9 L (1.0-4.8) k/uL Sodium 127 L (137-145) mmol/L Potassium 8.2 H* (3.5-5.1) mmol/L Chloride 90 L (98-107) mmol/L BUN 119 H* (7-17) mg/dL Creatinine 8.33 H* (0.52-1.04) mg/dL Glucose 227 H (74-99) mg/dL POC Glucose (mg/dL) (75-99) mg/dL Phosphorus 7.0 H (2.5-4.5) mg/dL Magnesium 2.5 H (1.6-2.3) mg/dL Iron 28 L (50-170) ug/dL % Saturation 9.27 L (12.00-45.00) Total Protein 5.0 L (6.3-8.2) g/dL Albumin 3.1 L (3.5-5.0) g/dL Crossmatch 07/01/19 07/01/19 07/01/19 Range/Units 11:22 11:58 16:59 WBC (3.8-10.6) k/uL RBC (3.80-5.40) m/uL Hgb (11.4-16.0) gm/dL Hct (34.0-46.0) % MCV (80.0-100.0) fL MCHC (31.0-37.0) g/dL RDW (11.5-15.5) % Neutrophils # (1.3-7.7) k/uL Lymphocytes # (1.0-4.8) k/uL Sodium (137-145) mmol/L Potassium 5.9 H (3.5-5.1) mmol/L Chloride (98-107) mmol/L BUN (7-17) mg/dL Creatinine (0.52-1.04) mg/dL Glucose (74-99) mg/dL POC Glucose (mg/dL) 58 L 65 L (75-99) mg/dL Phosphorus (2.5-4.5) mg/dL Magnesium (1.6-2.3) mg/dL Iron (50-170) ug/dL % Saturation (12.00-45.00) Total Protein (6.3-8.2) g/dL Albumin (3.5-5.0) g/dL Crossmatch 07/01/19 07/01/19 07/01/19 Range/Units 16:59 17:38 21:26 WBC 13.4 H (3.8-10.6) k/uL RBC 2.79 L (3.80-5.40) m/uL Hgb 9.0 L (11.4-16.0) gm/dL Hct 29.1 L (34.0-46.0) % MCV 104.5 H (80.0-100.0) fL MCHC 30.8 L (31.0-37.0) g/dL RDW 17.1 H (11.5-15.5) % Neutrophils # (1.3-7.7) k/uL Lymphocytes # (1.0-4.8) k/uL Sodium (137-145) mmol/L Potassium (3.5-5.1) mmol/L Chloride (98-107) mmol/L BUN (7-17) mg/dL Creatinine (0.52-1.04) mg/dL Glucose (74-99) mg/dL POC Glucose (mg/dL) 37 L 156 H (75-99) mg/dL Phosphorus (2.5-4.5) mg/dL Magnesium (1.6-2.3) mg/dL Iron (50-170) ug/dL % Saturation (12.00-45.00) Total Protein (6.3-8.2) g/dL Albumin (3.5-5.0) g/dL Crossmatch 07/01/19 07/01/19 07/02/19 Range/Units 23:10 23:10 01:45 WBC 15.6 H (3.8-10.6) k/uL RBC 2.51 L (3.80-5.40) m/uL Hgb 8.0 L (11.4-16.0) gm/dL Hct 26.4 L (34.0-46.0) % MCV 105.1 H (80.0-100.0) fL MCHC 30.2 L (31.0-37.0) g/dL RDW 17.3 H (11.5-15.5) % Neutrophils # (1.3-7.7) k/uL Lymphocytes # (1.0-4.8) k/uL Sodium (137-145) mmol/L Potassium 6.2 H* (3.5-5.1) mmol/L Chloride (98-107) mmol/L BUN (7-17) mg/dL Creatinine (0.52-1.04) mg/dL Glucose (74-99) mg/dL POC Glucose (mg/dL) (75-99) mg/dL Phosphorus (2.5-4.5) mg/dL Magnesium (1.6-2.3) mg/dL Iron (50-170) ug/dL % Saturation (12.00-45.00) Total Protein (6.3-8.2) g/dL Albumin (3.5-5.0) g/dL Crossmatch See Detail 07/02/19 07/02/19 07/02/19 Range/Units 02:52 04:50 04:50 WBC 14.8 H (3.8-10.6) k/uL RBC 2.29 L (3.80-5.40) m/uL Hgb 7.2 L (11.4-16.0) gm/dL Hct 24.0 L (34.0-46.0) % MCV 105.0 H (80.0-100.0) fL MCHC 29.9 L (31.0-37.0) g/dL RDW 17.4 H (11.5-15.5) % Neutrophils # 12.1 H (1.3-7.7) k/uL Lymphocytes # (1.0-4.8) k/uL Sodium 135 L (137-145) mmol/L Potassium 5.9 H (3.5-5.1) mmol/L Chloride (98-107) mmol/L BUN 69 H (7-17) mg/dL Creatinine 6.14 H (0.52-1.04) mg/dL Glucose 136 H (74-99) mg/dL POC Glucose (mg/dL) 118 H (75-99) mg/dL Phosphorus 5.3 H (2.5-4.5) mg/dL Magnesium (1.6-2.3) mg/dL Iron (50-170) ug/dL % Saturation (12.00-45.00) Total Protein 4.7 L (6.3-8.2) g/dL Albumin 2.7 L (3.5-5.0) g/dL Crossmatch Assessment and Plan Plan: Assessment: 1. End-stage renal disease maintained on hemodialysis on Monday schedule. 2. Hyperkalemia secondary to missed hemodialysis. Improved postdialysis. 3. Hypervolemic hyponatremia. Better. 4. Severe volume overload. 5. Anemia of chronic kidney disease. Also oozing from the triple-lumen site. Maintained on Aranesp. Also receiving a unit of blood today. 6. Hyperphosphatemia secondary to chronic kidney disease maintained on Renvela. 7. Chronic hypotension maintained on midodrine. Plan: Hemodialysis today with goal 3-4 L ultrafiltration. Another treatment tomorrow. I will give her a dose of IV DDAVP.
[2019-07-02] MEDS ORDERED: DESMOPRESSIN ACETATE 14 MCG in SODIUM CHLORIDE 0.9% 50 ML IVPB ONE (09:00)
[2019-07-02] MEDS: FUROSEMIDE 10 MG/ML 10 ML VIAL IV SCH ×2 (09:09→22:24)
[2019-07-02 09:27] LABS: Glucose,Whole Blood 177 mg/dL (75-99)
--- NOTE | 2019-07-02 10:00 | XR ---
EXAMINATION TYPE: XR chest 1V portable DATE OF EXAM: 07/02/2019 COMPARISON: 07/02/2019 HISTORY: Line placement TECHNIQUE: Single frontal view of the chest is obtained. FINDINGS: Heart is enlarged. Dialysis catheter is seen and there are 2 central line seen. As seen with the tip near the cavoatrial junction. Subsegmental changes at the lung bases. Atheroscle rotic change aorta. No sizable pneumothorax. Limited inspiration. Mild central interstitial prominenc e could represent mild pneumonitis or venous congestion stable in appearance. IMPRESSION: 1. New right-sided central line is seen with the tip overlying the cavoatrial junction and no sizable pneumothorax
[2019-07-02 11:44] LABS: Glucose,Whole Blood 162 mg/dL (75-99)
--- NOTE | 2019-07-02 12:37 | P.PN ---
Subjective Progress Note Date: 07/02/19 CHIEF COMPLAINT: Leg laceration HISTORY OF PRESENT ILLNESS: 74-year-old female who remains intubated in the intensive care unit. General surgery is following along for laceration of the patient's right lower extremity. PHYSICAL EXAM: VITAL SIGNS: Reviewed. GENERAL: Well-developed in no acute distress. HEENT: No sclera icterus. Extraocular movements grossly intact. Moist buccal mucosa. Head is atraumatic, normocephalic. ABDOMEN: Soft. Nondistended. Nontender. NEUROLOGIC: Sedated on mechanical ventilation SKIN: Dressing to right lower extremity clean dry intact ASSESSMENT: 1. Right leg laceration PLAN: Dressing to right lower extremity remains dry and intact No surgical intervention recommended Nurse practitioner note has been reviewed by physician. Signing provider agrees with the documented findings, assessment, and plan of care. Objective - Vital Signs Vital signs: Vital Signs Temp 97.9 F 07/02/19 12:17 Pulse 60 07/02/19 12:17 Resp 20 07/02/19 12:17 BP 99/75 07/02/19 12:17 Pulse Ox 99 07/02/19 12:17 Intake & Output 07/01/19 07/02/19 07/02/19 18:59 06:59 18:59 Intake Total 480 869 Output Total 3515 40 800 Balance -3515 440 69 Weight 156.489 kg 152.6 kg Intake: Oral 480 Blood Product 869 Ffp 24 Cpd Unit 296 [id number] Ffp 24 Cpd Unit 263 [id number] Rc As-1 Unit 310 [id number] Output: Urine 15 40 Hemodialysis 3500 800 Other: Voiding Method Indwelling Catheter Indwelling Catheter - Labs CBC & Chem 7: 07/02/19 04:50 07/02/19 04:50 Labs: Abnormal Lab Results - Last 24 Hours (Table) 07/01/19 07/01/19 07/01/19 Range/Units 09:41 16:59 16:59 WBC 13.4 H (3.8-10.6) k/uL RBC 2.79 L (3.80-5.40) m/uL Hgb 9.0 L (11.4-16.0) gm/dL Hct 29.1 L (34.0-46.0) % MCV 104.5 H (80.0-100.0) fL MCHC 30.8 L (31.0-37.0) g/dL RDW 17.1 H (11.5-15.5) % Neutrophils # (1.3-7.7) k/uL Sodium (137-145) mmol/L Potassium 5.9 H (3.5-5.1) mmol/L BUN (7-17) mg/dL Creatinine (0.52-1.04) mg/dL Glucose (74-99) mg/dL POC Glucose (mg/dL) (75-99) mg/dL Phosphorus (2.5-4.5) mg/dL Iron 28 L (50-170) ug/dL % Saturation 9.27 L (12.00-45.00) Total Protein (6.3-8.2) g/dL Albumin (3.5-5.0) g/dL Crossmatch 07/01/19 07/01/19 07/01/19 Range/Units 17:38 21:26 23:10 WBC 15.6 H (3.8-10.6) k/uL RBC 2.51 L (3.80-5.40) m/uL Hgb 8.0 L (11.4-16.0) gm/dL Hct 26.4 L (34.0-46.0) % MCV 105.1 H (80.0-100.0) fL MCHC 30.2 L (31.0-37.0) g/dL RDW 17.3 H (11.5-15.5) % Neutrophils # (1.3-7.7) k/uL Sodium (137-145) mmol/L Potassium (3.5-5.1) mmol/L BUN (7-17) mg/dL Creatinine (0.52-1.04) mg/dL Glucose (74-99) mg/dL POC Glucose (mg/dL) 37 L 156 H (75-99) mg/dL Phosphorus (2.5-4.5) mg/dL Iron (50-170) ug/dL % Saturation (12.00-45.00) Total Protein (6.3-8.2) g/dL Albumin (3.5-5.0) g/dL Crossmatch 07/01/19 07/02/19 07/02/19 Range/Units 23:10 01:45 02:52 WBC (3.8-10.6) k/uL RBC (3.80-5.40) m/uL Hgb (11.4-16.0) gm/dL Hct (34.0-46.0) % MCV (80.0-100.0) fL MCHC (31.0-37.0) g/dL RDW (11.5-15.5) % Neutrophils # (1.3-7.7) k/uL Sodium (137-145) mmol/L Potassium 6.2 H* (3.5-5.1) mmol/L BUN (7-17) mg/dL Creatinine (0.52-1.04) mg/dL Glucose (74-99) mg/dL POC Glucose (mg/dL) 118 H (75-99) mg/dL Phosphorus (2.5-4.5) mg/dL Iron (50-170) ug/dL % Saturation (12.00-45.00) Total Protein (6.3-8.2) g/dL Albumin (3.5-5.0) g/dL Crossmatch See Detail 07/02/19 07/02/19 07/02/19 Range/Units 04:50 04:50 09:25 WBC 14.8 H (3.8-10.6) k/uL RBC 2.29 L (3.80-5.40) m/uL Hgb 7.2 L (11.4-16.0) gm/dL Hct 24.0 L (34.0-46.0) % MCV 105.0 H (80.0-100.0) fL MCHC 29.9 L (31.0-37.0) g/dL RDW 17.4 H (11.5-15.5) % Neutrophils # 12.1 H (1.3-7.7) k/uL Sodium 135 L (137-145) mmol/L Potassium 5.9 H (3.5-5.1) mmol/L BUN 69 H (7-17) mg/dL Creatinine 6.14 H (0.52-1.04) mg/dL Glucose 136 H (74-99) mg/dL POC Glucose (mg/dL) 177 H (75-99) mg/dL Phosphorus 5.3 H (2.5-4.5) mg/dL Iron (50-170) ug/dL % Saturation (12.00-45.00) Total Protein 4.7 L (6.3-8.2) g/dL Albumin 2.7 L (3.5-5.0) g/dL Crossmatch 07/02/19 Range/Units 11:43 WBC (3.8-10.6) k/uL RBC (3.80-5.40) m/uL Hgb (11.4-16.0) gm/dL Hct (34.0-46.0) % MCV (80.0-100.0) fL MCHC (31.0-37.0) g/dL RDW (11.5-15.5) % Neutrophils # (1.3-7.7) k/uL Sodium (137-145) mmol/L Potassium (3.5-5.1) mmol/L BUN (7-17) mg/dL Creatinine (0.52-1.04) mg/dL Glucose (74-99) mg/dL POC Glucose (mg/dL) 162 H (75-99) mg/dL Phosphorus (2.5-4.5) mg/dL Iron (50-170) ug/dL % Saturation (12.00-45.00) Total Protein (6.3-8.2) g/dL Albumin (3.5-5.0) g/dL Crossmatch
[2019-07-02 13:48] LABS: T4, Free (Free Thyroxine) 1.04 ng/dL (0.78-2.19)
[2019-07-02 16:37] LABS: Glucose,Whole Blood 118 mg/dL (75-99)
--- NOTE | 2019-07-02 20:13 | PN ---
PROGRESS NOTE This patient is a 74-year-old white female with severe bradycardia, ejection rhythm, severe hyperkalemia, severe anemia, shock, chronic renal failure, acute on chronic diastolic heart failure, fluid overload, obesity, diastolic heart failure, coronary artery disease, diabetes mellitus, sleep apnea, history of ESBL. Blood was oozing for 24 hours out of the left IJ triple-lumen catheter. Hemoglobin was dropping. This was switched to the right side of the neck. She underwent dialysis 3 liters yesterday. Hemoglobin slipped down to 7.1, given transfusion 2 packs of FFP, DDAVP with the renal service. White count is elevated at 14.8. Interstitial edema. Temperature 97.9, pulses in the 40s to 50s, blood pressure 90s over 70s. Oxygen saturation 92%. CARDIOVASCULAR: S1, S2. LUNGS: Transmitted upper airway sounds. HEMATOLOGY: Negative Homans. PSYCH: Fair mood and affect. NEUROLOGIC: Alert and oriented x3. ASSESSMENT: 1. Hypovolemic shock. 2. Severe anemia. 3. Acute blood loss anemia. 4. Severe bradycardia. 5. Hyperkalemia. 6. Chronic renal failure. 7. Chronic diastolic heart failure. 8. Coronary artery disease. 9. History of cerebrovascular accident, transient ischemic attack. 10.Diabetes mellitus. 11.Sleep apnea. DDAVP, FFP blood transfusion. Repeat dialysis. Central line. Vasopressors. Prognosis extremely guarded. TYLER / FARSHAD: [id number] /
[2019-07-02 20:31] LABS: Glucose,Whole Blood 220 mg/dL (75-99)
[2019-07-02 20:38] LABS: Anisocytosis Slight; Basophils # (A) 0.2 k/uL (0-0.2); Basophils % (A) 1 %; Eosinophils # (A) 0.3 k/uL (0-0.7); Eosinophils % (A) 2 %; HCT 23.8 % (34.0-46.0); HGB 7.3 gm/dL (11.4-16.0); Hypochromasia Marked; Lymphocytes # (A) 0.9 k/uL (1.0-4.8); Lymphocytes % (A) 5 %; MCH 31.6 pg (25.0-35.0); MCHC 30.5 g/dL (31.0-37.0); MCV 103.7 fL (80.0-100.0); Macrocytosis Moderate; Mean Platelet Volume 8.4; Monocytes # (A) 0.7 k/uL (0-1.0); Monocytes % (A) 4 %; Neutrophils # (A) 15.6 k/uL (1.3-7.7); Neutrophils % (A) 87 %; Platelet Count 173 k/uL (150-450); Poikilocytosis Slight; RBC 2.29 m/uL (3.80-5.40); RDW 18.2 % (11.5-15.5); WBC 17.9 k/uL (3.8-10.6)
[2019-07-02] MEDS: INSULIN ASPART (NovoLOG) 100 UNIT/ML VIAL SQ SCH (22:25)
--- NOTE | 2019-07-02 22:46 | US ---
EXAMINATION TYPE: US venous doppler duplex LE RT DATE OF EXAM: 07/02/2019 10:26 PM COMPARISON: US CLINICAL HISTORY: trauma, r/o dvt. R/O DVT. Trauma to right leg, patient fell. No hx of DVT. Edema. SIDE PERFORMED: Right TECHNIQUE: The lower extremity deep venous system is examined utilizing real time linear array sonog jamal with graded compression, doppler sonography and color-flow sonography. VESSELS IMAGED: Common Femoral Vein Deep Femoral Vein Greater Saphenous Vein * Femoral Vein Right Leg: Limited compression imaging performed. No evidence of DVT in veins imaged at this time, a lthough exam is very limited. Unable to visualize EIV, popliteal, or prox calf veins. Large patient b kathleen habitus. Severe edema. IMPRESSION: No evidence of deep vein thrombosis in the right leg.
[2019-07-03 04:42] LABS: Anisocytosis Slight; HCT 22.7 % (34.0-46.0); Hypochromasia Marked; MCH 31.3 pg (25.0-35.0); MCHC 29.9 g/dL (31.0-37.0); MCV 104.7 fL (80.0-100.0); Macrocytosis Marked; Mean Platelet Volume 8.3; Platelet Count 180 k/uL (150-450); Poikilocytosis Slight; RBC 2.16 m/uL (3.80-5.40); WBC 14.5 k/uL (3.8-10.6)
[2019-07-03 04:49] LABS: Appearance,Urine Turbid (Clear); Bacteria,Urine Moderate /hpf; Bilirubin,Urine Negative (Negative); Blood,Urine Large (Negative); Color,Urine Dark Brown; Glucose,Urine (UA) Negative (Negative); Ketones,Urine Negative (Negative); Leukocyte Esterase,Urine Large (Negative); Nitrite,Urine Negative (Negative); Protein,Urine 2+ (Negative); RBC,Urine >182 /hpf (0-5); Specific Gravity,Urine 1.021 (1.001-1.035); Squamous Epithelial Cell,Urine 3 /hpf (0-4); Urobilinogen,Urine <2.0 mg/dL (<2.0); WBC,Urine >182 /hpf (0-5)
[2019-07-03 04:59] LABS: Albumin 2.7 g/dL (3.5-5.0); Calcium 8.6 mg/dL (8.4-10.2); HGB 6.8 gm/dL (11.4-16.0); Potassium 4.6 mmol/L (3.5-5.1); Total Protein 4.7 g/dL (6.3-8.2)
[2019-07-03 05:01] LABS: Total Bilirubin 0.2 mg/dL (0.2-1.3)
[2019-07-03 05:21] LABS: Band Neutrophils % 2 %; Eosinophils # (M) 0.44 k/uL (0-0.7); Metamyelocytes # (M) 0.58 k/uL (0); Metamyelocytes % 4 %; Monocytes # (M) 0.58 k/uL (0-1.0); Myelocytes # (M) 0.44 k/uL (0); Myelocytes % 3 %; Neutrophils % (M) 75 %; Nucleated Red Blood Cells 0 /100 WBC (0-0); Total Cells Counted 200
[2019-07-03 05:23] LABS: Basophilic Stippling Present
[2019-07-03 05:24] LABS: Polychromasia Present; Stomatocytes Present; Toxic Granulation Present
[2019-07-03 06:30] LABS: Glucose,Whole Blood 132 mg/dL (75-99)
[2019-07-03] MEDS: MIDODRINE 5 MG TAB PO SCH ×3 (08:25→18:23)
[2019-07-03] MEDS: SEVELAMER 800 MG TAB PO SCH ×3 (08:26→18:25)
[2019-07-03] MEDS: INSULIN ASPART (NovoLOG) 100 UNIT/ML VIAL SQ SCH ×4 (08:26→21:36)
--- NOTE | 2019-07-03 08:46 | P.PN ---
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 07/03/2019, patient seen and evaluated examined during the rounds hemodynamic status stable systolic blood pressure, heart rate is improved now is 50-60, patient is spontaneously breathing on 3 L nasal cannula, the dressing on hold left-sided IJ triple-lumen appears intact no hematoma identified, right sided triple-lumen working well, patient is undergoing hemodialysis now, hemoglobin drop down to 6.8 Will give 1 unit of packed RBC with the dialysis, labs are reviewed WBC coming down and is 14.5 sugars are stable, his urine is dark brown turbid with large blood and large leukocyte esterase many WBCs moderate bacteria, culture is pending, we will add broad-spectrum antibiotics with IV Rocephin pending culture reports critical care time spent 35 minutes 07/02/2019, patient seen and evaluated examined during the rounds as reviewed medications reviewed, patient underwent hemodialysis yesterday at 3 L of fluid has been removed, blood pressure today is running on the lower side systolic is 82-84, patient still bradycardic heart rate is about 40 junctional rhythm, patient is due for dialysis today, blood is oozing from left IJ triple-lumen catheter and it did not stop by applying pressure and local conservative measures hemoglobin is down to 7.1 patient is getting transfusion of one packed RBC 2 packs of FFP to be given also will give DDAVP discussed with renal service left IJ triple-lumen catheter to be removed will put a right internal jugular triple-lumen catheter, patient may require vasopressors now, labs are reviewed white cell count is still elevated 14.8 hemoglobin is 7.2 platelet count is 238 fraction was reduced to 5.9 BUN/creatinine is 69 /6.14, chest x-ray cardiomegaly interstitial edema and stable position of dialysis catheter, critical care time spent 35 minutes excluding procedure time Mrs. Antonio is a morbidly obese 74-year-old female who has chronic renal failure on hemodialysis but a week ago refused hemodialysis planning to go on hospice, over the weekend she has changed her mind and would like to undergo dialysis again came into the hospital with progressive shortness of breath she is a resident of extended care facility she is arousable opens eyes follow simple commands but has ongoing shortness of breath which is worse than before, also have dyspnea and some cough however is afebrile, patient is very bradycardic hypotensive heart rate is 35 junctional rhythm blood pressure is 87/55 saturation however is 97% on supplemental oxygen rotation level few days ago was over 7 repeat levels are pending, white cell count is 14,000 and hemoglobin is 9.1, cold with his negative PT-INR and PTT within normal limits, EKG finding as above, patient is being given potassium lowering cocktail, and patient is in process of being removed from the ER room #1 to room #10 for stat hemodialysis, her chest x-ray showed interstitial edema and cardiomegaly, a triple-lumen catheter was inserted by ER physician and left IJ Objective - Vital Signs Vital signs: Vital Signs Temp 97.8 F 07/03/19 04:00 Pulse 61 07/03/19 07:00 Resp 16 07/03/19 07:00 BP 121/45 07/03/19 07:00 Pulse Ox 94 L 07/03/19 07:00 Intake & Output 07/02/19 07/03/19 07/03/19 18:59 06:59 18:59 Intake Total 1094 55 5 Output Total 3835 20 0 Balance -2741 35 5 Weight 153.3 kg Intake: IV 105 55 5 Desmopressin Acetate 14 50 mcg In Sodium Chloride 0. 9% 50 ml @ 200 mls/hr IVPB ONCE ONE Rx#: [id number] KVO 55 55 5 Oral 120 Blood Product 869 Ffp 24 Cpd Unit 296 [id number] Ffp 24 Cpd Unit 263 [id number] As-1 Unit 310 [id number] Output: Urine 35 20 0 Hemodialysis 3800 Other: Voiding Method Indwelling Catheter Indwelling Catheter - Exam - Constitutional General appearance: disheveled, mild distress, morbidly obese, appears ill - EENT Eyes: EOMI, PERRLA ENT: hard of hearing Ears: bilateral: normal - Neck Neck: normal ROM Carotids: bilateral: upstroke normal Thyroid: bilateral: normal size - Respiratory Respiratory: bilateral: diminished, rales (At the bases with coronary and) - Cardiovascular Rhythm: regular Heart sounds: normal: S1, S2 - Gastrointestinal General gastrointestinal: decreased bowel sounds, distended - Integumentary +2-3 pedal edema, lacerated wound on left leg dry dressing applied, right big toe dry gangrene Integumentary: decreased turgor - Musculoskeletal Musculoskeletal: generalized weakness, strength equal bilaterally, awake and alert - Labs CBC & Chem 7: 07/03/19 04:20 07/03/19 04:20 Labs: Abnormal Lab Results - Last 24 Hours (Table) 07/02/19 07/02/19 07/02/19 Range/Units 01:45 04:50 09:25 WBC (3.8-10.6) k/uL RBC (3.80-5.40) m/uL Hgb (11.4-16.0) gm/dL Hct (34.0-46.0) % MCV (80.0-100.0) fL MCHC (31.0-37.0) g/dL RDW (11.5-15.5) % Neutrophils # (1.3-7.7) k/uL Neutrophils # (Manual) (1.3-7.7) k/uL Lymphocytes # (1.0-4.8) k/uL Metamyelocytes # (Man) (0) k/uL Myelocytes # (Manual) (0) k/uL Macrocytosis BUN (7-17) mg/dL Creatinine (0.52-1.04) mg/dL Glucose (74-99) mg/dL POC Glucose (mg/dL) 177 H (75-99) mg/dL Total Protein (6.3-8.2) g/dL Albumin (3.5-5.0) g/dL TSH 17.200 H (0.465-4.680) mIU/L Urine Appearance (Clear) Urine Protein (Negative) Urine Blood (Negative) Ur Leukocyte Esterase (Negative) Urine RBC (0-5) /hpf Urine WBC (0-5) /hpf Urine WBC Clumps (None) /hpf Urine Bacteria (None) /hpf Crossmatch See Detail 07/02/19 07/02/19 07/02/19 Range/Units 11:43 16:36 20:30 WBC (3.8-10.6) k/uL RBC (3.80-5.40) m/uL Hgb (11.4-16.0) gm/dL Hct (34.0-46.0) % MCV (80.0-100.0) fL MCHC (31.0-37.0) g/dL RDW (11.5-15.5) % Neutrophils # (1.3-7.7) k/uL Neutrophils # (Manual) (1.3-7.7) k/uL Lymphocytes # (1.0-4.8) k/uL Metamyelocytes # (Man) (0) k/uL Myelocytes # (Manual) (0) k/uL Macrocytosis BUN (7-17) mg/dL Creatinine (0.52-1.04) mg/dL Glucose (74-99) mg/dL POC Glucose (mg/dL) 162 H 118 H 220 H (75-99) mg/dL Total Protein (6.3-8.2) g/dL Albumin (3.5-5.0) g/dL TSH (0.465-4.680) mIU/L Urine Appearance (Clear) Urine Protein (Negative) Urine Blood (Negative) Ur Leukocyte Esterase (Negative) Urine RBC (0-5) /hpf Urine WBC (0-5) /hpf Urine WBC Clumps (None) /hpf Urine Bacteria (None) /hpf Crossmatch 07/02/19 07/03/19 07/03/19 Range/Units 20:30 04:20 04:20 WBC 17.9 H 14.5 H (3.8-10.6) k/uL RBC 2.29 L 2.16 L (3.80-5.40) m/uL Hgb 7.3 L 6.8 L* (11.4-16.0) gm/dL Hct 23.8 L 22.7 L (34.0-46.0) % MCV 103.7 H 104.7 H (80.0-100.0) fL MCHC 30.5 L 29.9 L (31.0-37.0) g/dL RDW 18.2 H 18.0 H (11.5-15.5) % Neutrophils # 15.6 H (1.3-7.7) k/uL Neutrophils # (Manual) 11.10 H (1.3-7.7) k/uL Lymphocytes # 0.9 L (1.0-4.8) k/uL Metamyelocytes # (Man) 0.58 H (0) k/uL Myelocytes # (Manual) 0.44 H (0) k/uL Macrocytosis Marked A BUN 41 H (7-17) mg/dL Creatinine 4.61 H (0.52-1.04) mg/dL Glucose 119 H (74-99) mg/dL POC Glucose (mg/dL) (75-99) mg/dL Total Protein 4.7 L (6.3-8.2) g/dL Albumin 2.7 L (3.5-5.0) g/dL TSH (0.465-4.680) mIU/L Urine Appearance (Clear) Urine Protein (Negative) Urine Blood (Negative) Ur Leukocyte Esterase (Negative) Urine RBC (0-5) /hpf Urine WBC (0-5) /hpf Urine WBC Clumps (None) /hpf Urine Bacteria (None) /hpf Crossmatch 07/03/19 07/03/19 Range/Units 04: 06:28 WBC (3.8-10.6) k/uL RBC (3.80-5.40) m/uL Hgb (11.4-16.0) gm/dL Hct (34.0-46.0) % MCV (80.0-100.0) fL MCHC (31.0-37.0) g/dL RDW (11.5-15.5) % Neutrophils # (1.3-7.7) k/uL Neutrophils # (Manual) (1.3-7.7) k/uL Lymphocytes # (1.0-4.8) k/uL Metamyelocytes # (Man) (0) k/uL Myelocytes # (Manual) (0) k/uL Macrocytosis BUN (7-17) mg/dL Creatinine (0.52-1.04) mg/dL Glucose (74-99) mg/dL POC Glucose (mg/dL) 132 H (75-99) mg/dL Total Protein (6.3-8.2) g/dL Albumin (3.5-5.0) g/dL TSH (0.465-4.680) mIU/L Urine Appearance Turbid H (Clear) Urine Protein 2+ H (Negative) Urine Blood Large H (Negative) Ur Leukocyte Esterase Large H (Negative) Urine RBC >182 H (0-5) /hpf Urine WBC >182 H (0-5) /hpf Urine WBC Clumps Many H (None) /hpf Urine Bacteria Moderate H (None) /hpf Crossmatch Assessment and Plan Assessment: Urinary tract infection Hypo-volumic shock improved Acute blood loss anemia from triple-lumen catheter on the left side will give 1 more unit of packed RBC with hemodialysis Severe bradycardia and junctional rhythm, continued to improve Likely severe hyperkalemia, continued to improve Chronic renal failure, on hemodialysis Acute on chronic diastolic heart failure likely Acute respiratory failure multifactorial processes including fluid overload, obesity hypoventilation, Coronary artery disease History of CVA TIA Diabetes mellitus Obstructive sleep apnea cannot tolerate the CPAP 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 Plan: Will give 1 unit of packed RBC Start patient on broad-spectrum antibiotics with IV Rocephin Repeat dialysis today Blood transfusion Status post FFP Status post DDAVP New central line working well Stable side of old left-sided central line Vasopressors as needed We'll monitor clinical course in ICU if his stable binder today maybe can be moved out to [facility] with remote telemetry Further recommendations pending plan of care as per clinical response of patient Patient appears to be stable on supplemental oxygen and with adequate ventilation will monitor closely Critical care time 35 minutes Time with Patient: Greater than 30
--- NOTE | 2019-07-03 08:59 | P.PN ---
Subjective Patient is seen in follow-up for end-stage renal disease. She tolerated near 4 L ultrafiltration yesterday. Potassium level now normal. Hemoglobin 6.8 today. She will be receiving another unit of blood today. She was oozing from her triple lumen site which was changed yesterday. She also received a dose of DDAVP. Vital signs are stable. General: The patient appeared well nourished and normally developed. HEENT: Head exam is unremarkable. Neck is without jugular venous distension. LUNGS: Lungs are clear to auscultation and percussion. Breath sounds decreased. HEART: Rate and Rhythm are regular. ABDOMEN: Soft, obese. EXTREMITITES: 3+ edema. Objective - Vital Signs Vital signs: Vital Signs Temp 97.4 F L 07/03/19 08:54 Pulse 59 L 07/03/19 08:54 Resp 15 07/03/19 08:54 BP 124/82 07/03/19 08:54 Pulse Ox 96 07/03/19 08:54 Intake & Output 07/02/19 07/03/19 07/03/19 18:59 06:59 18:59 Intake Total 1094 55 10 Output Total 3835 20 0 Balance -2741 35 10 Weight 153.3 kg Intake: IV 105 55 10 Desmopressin Acetate 14 50 mcg In Sodium Chloride 0. 9% 50 ml @ 200 mls/hr IVPB ONCE ONE Rx#: [id number] KVO 55 55 10 Oral 120 Blood Product 869 0 Ffp 24 Cpd Unit 296 [id number] Ffp 24 Cpd Unit 263 [id number] Rc As-1 Unit 310 [id number] Rc Pheresis 2 As3 Unit 0 [id number] Output: Urine 35 20 0 Hemodialysis 3800 Other: Voiding Method Indwelling Catheter Indwelling Catheter Indwelling Catheter - Labs CBC & Chem 7: 07/03/19 04:20 07/03/19 04:20 Labs: Abnormal Lab Results - Last 24 Hours (Table) 07/02/19 07/02/19 07/02/19 Range/Units 01:45 04:50 09:25 WBC (3.8-10.6) k/uL RBC (3.80-5.40) m/uL Hgb (11.4-16.0) gm/dL Hct (34.0-46.0) % MCV (80.0-100.0) fL MCHC (31.0-37.0) g/dL RDW (11.5-15.5) % Neutrophils # (1.3-7.7) k/uL Neutrophils # (Manual) (1.3-7.7) k/uL Lymphocytes # (1.0-4.8) k/uL Metamyelocytes # (Man) (0) k/uL Myelocytes # (Manual) (0) k/uL Macrocytosis BUN (7-17) mg/dL Creatinine (0.52-1.04) mg/dL Glucose (74-99) mg/dL POC Glucose (mg/dL) 177 H (75-99) mg/dL Total Protein (6.3-8.2) g/dL Albumin (3.5-5.0) g/dL TSH 17.200 H (0.465-4.680) mIU/L Urine Appearance (Clear) Urine Protein (Negative) Urine Blood (Negative) Ur Leukocyte Esterase (Negative) Urine RBC (0-5) /hpf Urine WBC (0-5) /hpf Urine WBC Clumps (None) /hpf Urine Bacteria (None) /hpf Crossmatch See Detail 07/02/19 07/02/19 07/02/19 Range/Units 11:43 16:36 20:30 WBC (3.8-10.6) k/uL RBC (3.80-5.40) m/uL Hgb (11.4-16.0) gm/dL Hct (34.0-46.0) % MCV (80.0-100.0) fL MCHC (31.0-37.0) g/dL RDW (11.5-15.5) % Neutrophils # (1.3-7.7) k/uL Neutrophils # (Manual) (1.3-7.7) k/uL Lymphocytes # (1.0-4.8) k/uL Metamyelocytes # (Man) (0) k/uL Myelocytes # (Manual) (0) k/uL Macrocytosis BUN (7-17) mg/dL Creatinine (0.52-1.04) mg/dL Glucose (74-99) mg/dL POC Glucose (mg/dL) 162 H 118 H 220 H (75-99) mg/dL Total Protein (6.3-8.2) g/dL Albumin (3.5-5.0) g/dL TSH (0.465-4.680) mIU/L Urine Appearance (Clear) Urine Protein (Negative) Urine Blood (Negative) Ur Leukocyte Esterase (Negative) Urine RBC (0-5) /hpf Urine WBC (0-5) /hpf Urine WBC Clumps (None) /hpf Urine Bacteria (None) /hpf Crossmatch 07/02/19 07/03/19 07/03/19 Range/Units 20:30 04:20 04:20 WBC 17.9 H 14.5 H (3.8-10.6) k/uL RBC 2.29 L 2.16 L (3.80-5.40) m/uL Hgb 7.3 L 6.8 L* (11.4-16.0) gm/dL Hct 23.8 L 22.7 L (34.0-46.0) % MCV 103.7 H 104.7 H (80.0-100.0) fL MCHC 30.5 L 29.9 L (31.0-37.0) g/dL RDW 18.2 H 18.0 H (11.5-15.5) % Neutrophils # 15.6 H (1.3-7.7) k/uL Neutrophils # (Manual) 11.10 H (1.3-7.7) k/uL Lymphocytes # 0.9 L (1.0-4.8) k/uL Metamyelocytes # (Man) 0.58 H (0) k/uL Myelocytes # (Manual) 0.44 H (0) k/uL Macrocytosis Marked A BUN 41 H (7-17) mg/dL Creatinine 4.61 H (0.52-1.04) mg/dL Glucose 119 H (74-99) mg/dL POC Glucose (mg/dL) (75-99) mg/dL Total Protein 4.7 L (6.3-8.2) g/dL Albumin 2.7 L (3.5-5.0) g/dL TSH (0.465-4.680) mIU/L Urine Appearance (Clear) Urine Protein (Negative) Urine Blood (Negative) Ur Leukocyte Esterase (Negative) Urine RBC (0-5) /hpf Urine WBC (0-5) /hpf Urine WBC Clumps (None) /hpf Urine Bacteria (None) /hpf Crossmatch 07/03/19 07/03/19 Range/Units 04:20 06:28 WBC (3.8-10.6) k/uL RBC (3.80-5.40) m/uL Hgb (11.4-16.0) gm/dL Hct (34.0-46.0) % MCV (80.0-100.0) fL MCHC (31.0-37.0) g/dL RDW (11.5-15.5) % Neutrophils # (1.3-7.7) k/uL Neutrophils # (Manual) (1.3-7.7) k/uL Lymphocytes # (1.0-4.8) k/uL Metamyelocytes # (Man) (0) k/uL Myelocytes # (Manual) (0) k/uL Macrocytosis BUN (7-17) mg/dL Creatinine (0.52-1.04) mg/dL Glucose (74-99) mg/dL POC Glucose (mg/dL) 132 H (75-99) mg/dL Total Protein (6.3-8.2) g/dL Albumin (3.5-5.0) g/dL TSH (0.465-4.680) mIU/L Urine Appearance Turbid H (Clear) Urine Protein 2+ H (Negative) Urine Blood Large H (Negative) Ur Leukocyte Esterase Large H (Negative) Urine RBC >182 H (0-5) /hpf Urine WBC >182 H (0-5) /hpf Urine WBC Clumps Many H (None) /hpf Urine Bacteria Moderate H (None) /hpf Crossmatch Assessment and Plan Plan: Assessment: 1. End-stage renal disease maintained on hemodialysis on Monday schedule. 2. Hyperkalemia secondary to missed hemodialysis. Improved postdialysis. 3. Hypervolemic hyponatremia. Better. 4. Severe volume overload. Improving gradually with ultrafiltration. 5. Anemia of chronic kidney disease. Also oozing from the triple-lumen site. Maintained on Aranesp. Scheduled to receive second unit of blood transfusion today. 6. Hyperphosphatemia secondary to chronic kidney disease maintained on Renvela. 7. Chronic hypotension maintained on midodrine. Plan: Hemodialysis today with goal 3-4 L ultrafiltration. Continue with daily dialysis for now due to volume overload.
[2019-07-03] MEDS: FUROSEMIDE 10 MG/ML 10 ML VIAL IV SCH ×2 (10:50→21:36)
[2019-07-03] MEDS: LEVOFLOXACIN 500MG-D5W PMX 500 MG in DEXTROSE/WATER 1 100ML.BAG IVPB SCH (10:50)
--- NOTE | 2019-07-03 11:14 | P.PN ---
Subjective Progress Note Date: 07/03/19 CHIEF COMPLAINT: Leg laceration HISTORY OF PRESENT ILLNESS: 74-year-old female who remains intubated in the intensive care unit. General surgery is following along for laceration of the patient's right lower extremity. PHYSICAL EXAM: VITAL SIGNS: Reviewed. GENERAL: Well-developed in no acute distress. HEENT: No sclera icterus. Extraocular movements grossly intact. Moist buccal mucosa. Head is atraumatic, normocephalic. ABDOMEN: Soft. Nondistended. Nontender. NEUROLOGIC: Sedated on mechanical ventilation SKIN: Dressing to right lower extremity clean dry intact ASSESSMENT: 1. Right leg laceration PLAN: Continue dressing changes to right lower extremity as needed No surgical intervention recommended We will sign off. Please reconsult if needed Nurse practitioner note has been reviewed by physician. Signing provider agrees with the documented findings, assessment, and plan of care. Objective - Vital Signs Vital signs: Vital Signs Temp 98.1 F 07/03/19 10:12 Pulse 67 07/03/19 11:00 Resp 12 07/03/19 11:00 BP 106/65 07/03/19 11:00 Pulse Ox 95 07/03/19 11:00 Intake & Output 07/02/19 07/03/19 07/03/19 18:59 06:59 18:59 Intake Total 1094 55 335 Output Total 3835 20 0 Balance -2741 35 335 Weight 153.3 kg Intake: IV 105 55 25 Desmopressin Acetate 14 50 mcg In Sodium Chloride 0. 9% 50 ml @ 200 mls/hr IVPB ONCE ONE Rx#: [id number] KVO 55 55 25 Oral 120 Blood Product 869 310 Ffp 24 Cpd Unit 296 [id number] Ffp 24 Cpd Unit 263 [id number] Rc As-1 Unit 310 [id number] Rc Pheresis 2 As3 Unit 310 [id number] Output: Urine 35 20 0 Hemodialysis 3800 Other: Voiding Method Indwelling Catheter Indwelling Catheter Indwelling Catheter - Labs CBC & Chem 7: 07/03/19 04:20 07/03/19 04:20 Labs: Abnormal Lab Results - Last 24 Hours (Table) 07/02/19 07/02/19 07/02/19 Range/Units 01:45 04:50 11:43 WBC (3.8-10.6) k/uL RBC (3.80-5.40) m/uL Hgb (11.4-16.0) gm/dL Hct (34.0-46.0) % MCV (80.0-100.0) fL MCHC (31.0-37.0) g/dL RDW (11.5-15.5) % Neutrophils # (1.3-7.7) k/uL Neutrophils # (Manual) (1.3-7.7) k/uL Lymphocytes # (1.0-4.8) k/uL Metamyelocytes # (Man) (0) k/uL Myelocytes # (Manual) (0) k/uL Macrocytosis BUN (7-17) mg/dL Creatinine (0.52-1.04) mg/dL Glucose (74-99) mg/dL POC Glucose (mg/dL) 162 H (75-99) mg/dL Total Protein (6.3-8.2) g/dL Albumin (3.5-5.0) g/dL TSH 17.200 H (0.465-4.680) mIU/L Urine Appearance (Clear) Urine Protein (Negative) Urine Blood (Negative) Ur Leukocyte Esterase (Negative) Urine RBC (0-5) /hpf Urine WBC (0-5) /hpf Urine WBC Clumps (None) /hpf Urine Bacteria (None) /hpf Crossmatch See Detail 07/02/19 07/02/19 07/02/19 Range/Units 16:36 20:30 20:30 WBC 17.9 H (3.8-10.6) k/uL RBC 2.29 L (3.80-5.40) m/uL Hgb 7.3 L (11.4-16.0) gm/dL Hct 23.8 L (34.0-46.0) % MCV 103.7 H (80.0-100.0) fL MCHC 30.5 L (31.0-37.0) g/dL RDW 18.2 H (11.5-15.5) % Neutrophils # 15.6 H (1.3-7.7) k/uL Neutrophils # (Manual) (1.3-7.7) k/uL Lymphocytes # 0.9 L (1.0-4.8) k/uL Metamyelocytes # (Man) (0) k/uL Myelocytes # (Manual) (0) k/uL Macrocytosis BUN (7-17) mg/dL Creatinine (0.52-1.04) mg/dL Glucose (74-99) mg/dL POC Glucose (mg/dL) 118 H 220 H (75-99) mg/dL Total Protein (6.3-8.2) g/dL Albumin (3.5-5.0) g/dL TSH (0.465-4.680) mIU/L Urine Appearance (Clear) Urine Protein (Negative) Urine Blood (Negative) Ur Leukocyte Esterase (Negative) Urine RBC (0-5) /hpf Urine WBC (0-5) /hpf Urine WBC Clumps (None) /hpf Urine Bacteria (None) /hpf Crossmatch 07/03/19 07/03/19 07/03/19 Range/Units 04:20 04:20 04:20 WBC 14.5 H (3.8-10.6) k/uL RBC 2.16 L (3.80-5.40) m/uL Hgb 6.8 L* (11.4-16.0) gm/dL Hct 22.7 L (34.0-46.0) % MCV 104.7 H (80.0-100.0) fL MCHC 29.9 L (31.0-37.0) g/dL RDW 18.0 H (11.5-15.5) % Neutrophils # (1.3-7.7) k/uL Neutrophils # (Manual) 11.10 H (1.3-7.7) k/uL Lymphocytes # (1.0-4.8) k/uL Metamyelocytes # (Man) 0.58 H (0) k/uL Myelocytes # (Manual) 0.44 H (0) k/uL Macrocytosis Marked A BUN 41 H (7-17) mg/dL Creatinine 4.61 H (0.52-1.04) mg/dL Glucose 119 H (74-99) mg/dL POC Glucose (mg/dL) (75-99) mg/dL Total Protein 4.7 L (6.3-8.2) g/dL Albumin 2.7 L (3.5-5.0) g/dL TSH (0.465-4.680) mIU/L Urine Appearance Turbid H (Clear) Urine Protein 2+ H (Negative) Urine Blood Large H (Negative) Ur Leukocyte Esterase Large H (Negative) Urine RBC >182 H (0-5) /hpf Urine WBC >182 H (0-5) /hpf Urine WBC Clumps Many H (None) /hpf Urine Bacteria Moderate H (None) /hpf Crossmatch 07/03/19 Range/Units 06:28 WBC (3.8-10.6) k/uL RBC (3.80-5.40) m/uL Hgb (11.4-16.0) gm/dL Hct (34.0-46.0) % MCV (80.0-100.0) fL MCHC (31.0-37.0) g/dL RDW (11.5-15.5) % Neutrophils # (1.3-7.7) k/uL Neutrophils # (Manual) (1.3-7.7) k/uL Lymphocytes # (1.0-4.8) k/uL Metamyelocytes # (Man) (0) k/uL Myelocytes # (Manual) (0) k/uL Macrocytosis BUN (7-17) mg/dL Creatinine (0.52-1.04) mg/dL Glucose (74-99) mg/dL POC Glucose (mg/dL) 132 H (75-99) mg/dL Total Protein (6.3-8.2) g/dL Albumin (3.5-5.0) g/dL TSH (0.465-4.680) mIU/L Urine Appearance (Clear) Urine Protein (Negative) Urine Blood (Negative) Ur Leukocyte Esterase (Negative) Urine RBC (0-5) /hpf Urine WBC (0-5) /hpf Urine WBC Clumps (None) /hpf Urine Bacteria (None) /hpf Crossmatch Microbiology - Last 24 Hours (Table) 07/03/19 04:20 Urine Culture - Preliminary Urine,Voided
[2019-07-03 13:02] LABS: Glucose,Whole Blood 205 mg/dL (75-99)
[2019-07-03 13:12] LABS: Anisocytosis Slight; HCT 26.9 % (34.0-46.0); HGB 8.2 gm/dL (11.4-16.0); Hypochromasia Marked; MCH 31.6 pg (25.0-35.0); MCHC 30.3 g/dL (31.0-37.0); MCV 104.2 fL (80.0-100.0); Macrocytosis Moderate; Mean Platelet Volume 8.4; Platelet Count 150 k/uL (150-450); Poikilocytosis Moderate; RBC 2.58 m/uL (3.80-5.40); RDW 18.1 % (11.5-15.5); WBC 19.9 k/uL (3.8-10.6)
--- NOTE | 2019-07-03 13:29 | P.CRDCN ---
<Malinda Anderson - Last Filed: 07/02/19 11:41> History of Present Illness History of present illness: This is Malinda Anderson PA-C scribing on behalf of Dr. Bustamante The patient was interviewed and examined by Dr. Bustamante HPI Patient is a 74-year-old female with a history significant for ESRD on dialysis diabetes, CAD status post stenting, hypertension, dyslipidemia, diabetes, sleep apnea presented with dyspnea, hypoxia, and hyperkalemia after missing dialysis for one week. EKG upon arrival to the emergency department shows idioventricular rhythm rate 34 bpm. Potassium was 6.2. She has been restarted on dialysis. Potassium is 5.9 this morning. Heart rates are currently in the 40s. Patient is in the ICU, is lethargic and weak, unable to give history. History obtained from the chart. ROS: Unable to obtain EXAMINATION: Dr. Bustamante examined the patient in the ICU Patient does not appear to be in any acute respiratory distress Heart sounds are soft Lung sounds are reduced bilaterally Mild lower extremity edema REVIEW OF LABS, ECG & MEDICAL DATA WBC 14.8, hemoglobin 7.2, platelets 238, potassium 5.9, BUN 69, creatinine 6. 14 Coronavirus negative Echocardiogram in April shows EF 50-55% IMPRESSION / ASSESSMENT: Bradycardia secondary to hyperkalemia due to missed dialysis ESRD on dialysis, missed dialysis for a week Echo showing EF 50-55% in April History of CAD status post stenting History of hypertension Diabetes Dyslipidemia Sleep apnea PLAN: Continue treatment for hyperkalemia repeat limited echocardiogram Hold beta blockers, avoid any rate lowering medications Check TSH Past Medical History Past Medical History: Asthma, Coronary Artery Disease (CAD), Cancer, Chest Pain / Angina, Heart Failure, CVA/TIA, Diabetes Mellitus, GERD/Reflux, Hyperlipidemia, Hypertension, Memory Impairment, Pneumonia, Sleep Apnea/CPAP/BIPAP, Thyroid Disorder Additional Past Medical History / Comment(s): IDDM, unable to tolerate C-PAP, hx. 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 , states unable to stand-needs yadira lift to transfer., patient states she has constipation with "pain in bowel" and nausea., resides at [facility] on [facility]. History of Any Multi-Drug Resistant Organisms: ESBL, MRSA Date of last positivie culture/infection: 06/05/18 ESBL/ MRSA 04/02/11 MDRO Source:: ESBL URINE / MRSA LEG, CHEST, ANKLE Past Surgical History: Bladder Surgery, Cholecystectomy, Heart Catheterization, Heart Catheterization With Stent, Hysterectomy Additional Past Surgical History / Comment(s): Angioplasty with multiple stents- pt states last stent mar 2018., partial parathyroidectomy, cataracts , I and D of L chest wall abscess and L ankle wound, bladder surgery with implant of stimulator system 02/2010, EGD/colonoscoy, Pain procedures. Past Anesthesia/Blood Transfusion Reactions: No Reported Reaction, Motion Sickness Additional Past Anesthesia/Blood Transfusion Reaction / Comment(s): Pt states she has received blood in the past without reaction. Date of Last Stent Placement:: 06/29/16 Past Psychological History: Anxiety, Depression Additional Psychological History / Comment(s): RESIDES @ [facility]. O2 at [place]. jail states she is a total lift. Smoking Status: Never smoker Past Alcohol Use History: None Reported Past Drug Use History: None Reported - Past Family History Brother(s) Family Medical History: Coronary Artery Disease (CAD) Father Family Medical History: Cancer, Coronary Artery Disease (CAD) Additional Family Medical History / Comment(s): Father had prostate cancer. Mother Family Medical History: Asthma, COPD Medications and Allergies Home Medications Medication Instructions Recorded Confirmed Type Atorvastatin [Lipitor] 40 mg PO HS@2100 01/30/17 07/01/19 History Aspirin EC [Ecotrin Low Dose] 81 mg PO DAILY@0900 12/14/17 07/01/19 History Acetaminophen [Tylenol] 650 mg PO Q6H PRN 01/16/18 07/01/19 History Montelukast Sodium [Singulair] 10 mg PO HS@2100 07/02/18 07/01/19 History ARIPiprazole [Abilify] 5 mg PO HS@2100 09/04/18 07/01/19 History Pantoprazole [Protonix] 40 mg PO DAILY@0600 09/04/18 07/01/19 History Citalopram Hydrobromide [CeleXA] 10 mg PO DAILY@0900 01/10/19 07/01/19 History Citalopram Hydrobromide [CeleXA] 20 mg PO DAILY@0900 01/10/19 07/01/19 History Ipratropium-Albuterol Nebulize 3 ml INHALATION RT-Q4H PRN 01/10/19 07/01/19 History [Duoneb 0.5 mg-3 mg/3 ml Soln] Clopidogrel [Plavix] 75 mg PO DAILY@0900 01/11/19 07/01/19 History Calcium Carbonate [Tums] 1,000 mg PO TID-W/MEALS PRN 03/14/19 07/01/19 History Gabapentin [Neurontin] 100 mg PO BID@0600,2200 #6 03/18/19 07/01/19 Rx predniSONE 10 mg PO Q48H #0 03/18/19 07/01/19 Rx INSULIN LISPRO (HumaLOG) [humaLOG] 10 unit SQ AC-TID 04/09/19 07/01/19 History Bisacodyl [Dulcolax] 10 mg RECTAL DAILY PRN supp 04/30/19 07/01/19 Rx Lidocaine 2% Gel [Xylocaine Jelly 1 applic TOPICAL TID PRN applic 04/30/19 07/01/19 Rx 2%] Amiodarone [Cordarone] 200 mg PO DAILY@0900 07/01/19 07/01/19 History Apixaban [Eliquis] 5 mg PO BID@0900,2100 07/01/19 07/01/19 History Bisacodyl [Dulcolax] 10 mg PO Q6H PRN 07/01/19 07/01/19 History Calcium Carbonate [Tums] 1,000 mg PO Q6H PRN 07/01/19 07/01/19 History Collagenase [Santyl] 1 applic TOPICAL Q12H 07/01/19 07/01/19 History Darbepoetin Alistair [Aranesp] 40 mcg SQ MO 07/01/19 07/01/19 History Dulaglutide [Trulicity] 1.5 mg SQ TU 07/01/19 07/01/19 History Furosemide [Lasix] 80 mg PO BID@0900,1700 07/01/19 07/01/19 History Hydrophilic Cream [Triad Cream] 1 applic TOPICAL BID 07/01/19 07/01/19 History Insulin Glargine,Hum.rec.anlog 30 unit SQ HS 07/01/19 07/01/19 History [Lantus Solostar] Insulin Lispro [humaLOG Kwikpen] See Protocol SQ AC-TID 07/01/19 07/01/19 History Metoprolol Tartrate [Lopressor] 12.5 mg PO BID@0900,2100 07/01/19 07/01/19 History Midodrine HCl [ProAmatine] 10 mg PO MOWEFR 07/01/19 07/01/19 History Midodrine HCl [ProAmatine] 10 mg PO SUTUTHSA 07/01/19 07/01/19 History Potassium Chloride ER [K-Dur 10] 10 meq PO DAILY@0900 07/01/19 07/01/19 History traMADol HCL [Ultram] 50 mg PO MOWEFR@0000,1200 07/01/19 07/01/19 History traMADol HCL [Ultram] 50 mg PO SUTUTHSA 07/01/19 07/01/19 History traMADol HCl [Ultram] 100 mg PO MOWEFR@1800 07/01/19 07/01/19 History Allergies Allergy/AdvReac Type Severity Reaction Status Date / Time adhesive Allergy Mild Rash/Hives, Verified 07/01/19 11:31 W/ TAPES, CAN USE PAPER TAPE latex Allergy Mild Rash/Hives- Verified 07/01/19 11:31 Sores codeine Allergy Anaphylaxis Verified 07/01/19 11:31 Penicillins Allergy Anaphylaxis Verified 07/01/19 11:31 propoxyphene napsylate Allergy Anaphylaxis Verified 07/01/19 11:31 [From Darvocet-N 100] tuberculin, purified protein Allergy Rash/Hives Verified 07/01/19 11:31 deriva [tuberculin,purif.prot.deriv.] morphine AdvReac Hallucinations, Verified 07/01/19 11:31 anxious Physical Exam Vitals: Vital Signs Temp Pulse Resp BP BP Pulse Ox 07/02/19 11:01 97.9 F 46 L 20 96/70 99 07/02/19 10:51 97.9 F 46 L 20 83/58 99 07/02/19 10:00 97.9 F 47 L 20 133/73 99 07/02/19 07:07 97.9 F 47 L 20 92/77 92 L 07/02/19 06:00 49 L 15 107/94 90 L 07/02/19 05:00 46 L 16 99/80 90 L 07/02/19 04:00 98.0 F 46 L 18 114/88 91 L 07/02/19 03:00 47 L 15 94/53 98 07/02/19 02:00 43 L 19 144/86 88 L 07/02/19 01:00 43 L 21 89/63 93 L 07/02/19 00:00 98.2 F 41 L 31 H 139/118 88 L 07/01/19 23:00 43 L 19 178/88 96 07/01/19 22:00 38 L 41 H 135/88 92 L 07/01/19 21:00 42 L 49 H 99/63 88 L 07/01/19 20:00 97.4 F L 44 L 17 111/98 88 L 07/01/19 19:00 22 113/91 91 L 07/01/19 18:00 58 L 14 123/88 96 07/01/19 17:00 58 L 15 07/01/19 16:00 98.4 F 61 25 H 98/62 96 07/01/19 15:19 98.3 F 20 103/38 07/01/19 15:00 61 10 L 86/65 07/01/19 14:00 60 18 07/01/19 13:30 58 L 53 H 90/41 07/01/19 13:00 38 L 31 H 110/90 07/01/19 12:30 20 92/75 07/01/19 12:00 98.2 F 32 L 17 95 Intake and Output 07/01/19 07/02/19 07/02/19 22:59 06:59 14:59 Intake Total 480 310 Output Total 3535 20 Balance -305420 310 Intake: Oral 480 Blood Product 310 Ffp 24 Cpd Unit 0 [id number] Rc As-1 Unit 310 [id number] Output: Urine 35 20 Hemodialysis 3500 Other: Voiding Method Indwelling Catheter Indwelling Catheter Weight 152.6 kg Results 07/02/19 04:50 07/02/19 04:50 Cardiac Enzymes 07/02/19 Range/Units 04:50 AST 15 (14-36) U/L CBC 04/27/20 04/27/20 04/28/20 Range/Units 16:59 23:10 04:50 WBC 13.4 H 15.6 H 14.8 H (3.8-10.6) k/uL RBC 2.79 L 2.51 L 2.29 L (3.80-5.40) m/uL Hgb 9.0 L 8.0 L 7.2 L (11.4-16.0) gm/dL Hct 29.1 L 26.4 L 24.0 L (34.0-46.0) % Plt Count 244 254 238 (150-450) k/uL Comprehensive Metabolic Panel 07/01/19 07/01/19 07/02/19 Range/Units 16:59 23:10 04:50 Sodium 135 L (137-145) mmol/L Potassium 5.9 H 6.2 H* 5.9 H (3.5-5.1) mmol/L Chloride 98 (98-107) mmol/L Carbon Dioxide 28 (22-30) mmol/L BUN 69 H (7-17) mg/dL Creatinine 6.14 H (0.52-1.04) mg/dL Glucose 136 H (74-99) mg/dL Calcium 8.9 (8.4-10.2) mg/dL AST 15 (14-36) U/L ALT 13 (4-34) U/L Alkaline Phosphatase 47 (38-126) U/L Total Protein 4.7 L (6.3-8.2) g/dL Albumin 2.7 L (3.5-5.0) g/dL Current Medications Generic Name Dose Route Start Last Admin Trade Name Freq PRN Reason Stop Dose Admin Darbepoetin Alistair 40 mcg 07/01/19 14:00 07/01/19 14:50 Aranesp SQ 40 mcg Q7D JAVIER Administration Furosemide 80 mg 07/01/19 21:00 07/02/19 09:09 Lasix IV 80 mg Q12HR JAVIER Administration Midodrine 10 mg 07/01/19 09:16 07/01/19 13:20 Proamatine PO 10 mg BID PRN Administration HYPOTENSION Midodrine 10 mg 07/01/19 12:30 07/02/19 07:21 Proamatine PO 10 mg AC-TID JAVIER Administration Naloxone HCl 0.2 mg 07/01/19 09:33 Narcan IV Q2M PRN Opioid Reversal Sevelamer Carbonate 800 mg 07/01/19 12:30 07/02/19 07:20 Renvela PO 800 mg TID-W/MEALS JAVIER Administration Intake and Output 07/01/19 07/02/19 07/02/19 22:59 06:59 14:59 Intake Total 480 310 Output Total 3535 20 Balance -3055 -20 310 Intake: Oral 480 Blood Product 310 Ffp 24 Cpd Unit 0 [id number] Rc As-1 Unit 310 [id number] Output: Urine 35 20 Hemodialysis 3500 Other: Voiding Method Indwelling Catheter Indwelling Catheter Weight 152.6 kg 07/02/19 04:50 07/02/19 04:50 <Brodie Bustamante - Last Filed: 07/03/19 13:29> Physical Exam Vitals: Vital Signs Temp Pulse Pulse Resp BP BP Pulse Ox 07/03/19 11:53 97.9 F 62 22 106/60 07/03/19 11:00 67 12 106/65 95 07/03/19 10:12 98.1 F 62 15 117/54 96 07/03/19 10:00 61 19 97/63 96 07/03/19 09:34 98.5 F 59 L 15 97/64 95 07/03/19 09:04 98.4 F 56 L 18 142/84 94 L 07/03/19 09:00 60 16 124/82 96 07/03/19 08:54 97.4 F L 59 L 15 124/82 96 07/03/19 08:00 98.2 F 61 15 129/44 95 07/03/19 07:00 61 16 121/45 94 L 07/03/19 06:00 59 L 14 111/42 96 07/03/19 05:00 58 L 16 118/39 95 07/03/19 04:00 97.8 F 57 L 15 128/52 95 07/03/19 03:00 64 17 124/45 96 07/03/19 02:00 57 L 16 121/43 96 07/03/19 01:00 57 L 14 108/79 96 07/03/19 00:19 62 16 96 07/03/19 00:00 97.7 F 61 13 119/40 96 07/02/19 23:00 59 L 15 132/49 96 04/28/20 22:00 65 14 99/43 96 07/02/19 21:00 64 13 114/38 94 L 07/02/19 20:00 97.7 F 60 20 125/59 95 07/02/19 19:00 62 22 112/44 95 07/02/19 18:00 62 13 105/42 97 07/02/19 17:00 62 12 118/42 97 07/02/19 16:00 66 16 147/102 97 07/02/19 15:46 14 07/02/19 15:24 98 07/02/19 15:00 66 14 108/43 97 07/02/19 14:31 97.9 F 73 22 100/88 07/02/19 14:00 74 12 95/54 96 Intake and Output 07/02/19 07/03/19 07/03/19 22:59 06:59 14:59 Intake Total 160 40 590 Output Total 30 10 3205 Balance 130 30 -2615 Intake: IV 40 40 30 KVO 40 40 30 Oral 120 250 Blood Product 310 Rc Pheresis 2 As3 Unit 310 [id number] Output: Urine 30 10 5 Hemodialysis 3200 Other: Voiding Method Indwelling Catheter Indwelling Catheter Indwelling Catheter Weight 153.3 kg Results 07/03/19 13:00 07/03/19 04:20 Cardiac Enzymes 07/03/19 Range/Units 04:20 AST 15 (14-36) U/L CBC 07/02/19 07/03/19 07/03/19 Range/Units 20:30 04:20 13:00 WBC 17.9 H 14.5 H 19.9 H (3.8-10.6) k/uL RBC 2.29 L 2.16 L 2.58 L (3.80-5.40) m/uL Hgb 7.3 L 6.8 L* 8.2 L (11.4-16.0) gm/dL Hct 23.8 L 22.7 L 26.9 L (34.0-46.0) % Plt Count 173 180 150 (150-450) k/uL Comprehensive Metabolic Panel 07/02/19 07/03/19 Range/Units 20:30 04:20 Sodium 138 (137-145) mmol/L Potassium 4.8 4.6 (3.5-5.1) mmol/L Chloride 102 (98-107) mmol/L Carbon Dioxide 30 (22-30) mmol/L BUN 41 H (7-17) mg/dL Creatinine 4.61 H (0.52-1.04) mg/dL Glucose 119 H (74-99) mg/dL Calcium 8.6 (8.4-10.2) mg/dL AST 15 (14-36) U/L ALT 13 (4-34) U/L Alkaline Phosphatase 46 (38-126) U/L Total Protein 4.7 L (6.3-8.2) g/dL Albumin 2.7 L (3.5-5.0) g/dL Current Medications Generic Name Dose Route Start Last Admin Trade Name Freq PRN Reason Stop Dose Admin Darbepoetin Alistair 40 mcg 07/01/19 14:00 07/01/19 14:50 Aranesp SQ 40 mcg Q7D JAVIER Administration Furosemide 80 mg 07/01/19 21:00 07/03/19 10:50 Lasix IV 80 mg Q12HR JAVIER Administration Levofloxacin 500 mg/ IV 100 mls @ 100 mls/hr 07/03/19 09:00 07/03/19 10:50 Solution IVPB 100 mls/hr Q48H JAVIER Administration Insulin Aspart 0 unit 07/02/19 22:00 07/03/19 13:09 Novolog SQ 2 unit ACHS JAVIER Administration Protocol Midodrine 10 mg 07/01/19 09:16 07/01/19 13:20 Proamatine PO 10 mg BID PRN Administration HYPOTENSION Midodrine 10 mg 07/01/19 12:30 07/03/19 13:09 Proamatine PO 10 mg AC-TID JAVIER Administration Naloxone HCl 0.2 mg 07/01/19 09:33 Narcan IV Q2M PRN Opioid Reversal Sevelamer Carbonate 800 mg 07/01/19 12:30 07/03/19 13:15 Renvela PO Not Given TID-W/MEALS JAVIER Tramadol HCl 50 mg 07/02/19 18:11 Ultram PO Q6H PRN Pain Intake and Output 07/02/19 07/03/19 07/03/19 22:59 06:59 14:59 Intake Total 160 40 590 Output Total 30 10 3205 Balance 130 30 -2615 Intake: IV 40 40 30 KVO 40 40 30 Oral 120 250 Blood Product 310 Rc Pheresis 2 As3 Unit 310 [id number] Output: Urine 30 10 5 Hemodialysis 3200 Other: Voiding Method Indwelling Catheter Indwelling Catheter Indwelling Catheter Weight 153.3 kg 07/03/19 13:00 07/03/19 04:20
--- NOTE | 2019-07-03 17:22 | P.PN ---
Subjective Progress Note Date: 07/02/19 This is a 74-year-old female admitted with severe hyperkalemia, severe fluid volume overload, end-stage kidney disease, and multiple other medical issues. Underwent hemodialysis/ultrafiltration yesterday, tolerated well. Potassium 4.6. Doppler of right lower extremity reporting limited exam negative for DVT. Hemoglobin dropped to 6.8 today, receiving one unit of packed RBCs. UA suggestive of acute UTI, asymptomatic. Continues on Levaquin. Maintaining O2 sats in the 90s on 3-4 L nasal cannula. Scheduled for hemodialysis today. Beta blockers remain on hold, bradycardia improving with heart rates currently in the low 60s. Objective - Vital Signs Vital signs: Vital Signs Temp 97.9 F 07/02/19 12:17 Pulse 60 07/02/19 12:17 Resp 20 07/02/19 12:17 BP 99/75 07/02/19 12:17 Pulse Ox 99 07/02/19 12:17 Intake & Output 07/01/19 07/02/19 07/02/19 18:59 06:59 18:59 Intake Total 480 869 Output Total 3515 40 800 Balance -3515 440 69 Weight 156.489 kg 152.6 kg Intake: Oral 480 Blood Product 869 Ffp 24 Cpd Unit 296 [id number] Ffp 24 Cpd Unit 263 [id number] As-1 Unit 310 [id number] Output: Urine 15 40 Hemodialysis 3500 800 Other: Voiding Method Indwelling Catheter Indwelling Catheter - Exam PHYSICAL EXAM: VITAL SIGNS: As above GENERAL: Sitting up in bed, no acute distress HEENT: Conjunctivae normal. eyes normal. Oral mucosa moist NECK: No JVD. No thyroid enlargement. No LNs. Left neck-prior subclavian line site oozy CARDIOVASCULAR: S1, S2 regular.. No murmur RESPIRATION: Breath sounds diminished in the bases. No rhonchi or crackles. No bronchial breathing. ABDOMEN: Soft, obese, nontender . No guarding. no masses palpable.Bowel sounds heard. LEGS: Positive edema. Right lower leg compression dressing clean dry and intact PSYCHIATRY: Alert and oriented X3, mood and affect normal. NERVOUS SYSTEM: Cranial N 2-12 grossly normal. Moves all 4 limbs. Diffuse weakness ,No focal deficits. Strength and sensation grossly intact.. Skin: no rash - Labs CBC & Chem 7: 07/03/19 13:00 07/03/19 04:20 Labs: Abnormal Lab Results - Last 24 Hours (Table) 07/01/19 07/01/19 07/01/19 Range/Units 09:41 16:59 16:59 WBC 13.4 H (3.8-10.6) k/uL RBC 2.79 L (3.80-5.40) m/uL Hgb 9.0 L (11.4-16.0) gm/dL Hct 29.1 L (34.0-46.0) % MCV 104.5 H (80.0-100.0) fL MCHC 30.8 L (31.0-37.0) g/dL RDW 17.1 H (11.5-15.5) % Neutrophils # (1.3-7.7) k/uL Sodium (137-145) mmol/L Potassium 5.9 H (3.5-5.1) mmol/L BUN (7-17) mg/dL Creatinine (0.52-1.04) mg/dL Glucose (74-99) mg/dL POC Glucose (mg/dL) (75-99) mg/dL Phosphorus (2.5-4.5) mg/dL Iron 28 L (50-170) ug/dL % Saturation 9.27 L (12.00-45.00) Total Protein (6.3-8.2) g/dL Albumin (3.5-5.0) g/dL Crossmatch 07/01/19 07/01/19 07/01/19 Range/Units 17:38 21:26 23:10 WBC 15.6 H (3.8-10.6) k/uL RBC 2.51 L (3.80-5.40) m/uL Hgb 8.0 L (11.4-16.0) gm/dL Hct 26.4 L (34.0-46.0) % MCV 105.1 H (80.0-100.0) fL MCHC 30.2 L (31.0-37.0) g/dL RDW 17.3 H (11.5-15.5) % Neutrophils # (1.3-7.7) k/uL Sodium (137-145) mmol/L Potassium (3.5-5.1) mmol/L BUN (7-17) mg/dL Creatinine (0.52-1.04) mg/dL Glucose (74-99) mg/dL POC Glucose (mg/dL) 37 L 156 H (75-99) mg/dL Phosphorus (2.5-4.5) mg/dL Iron (50-170) ug/dL % Saturation (12.00-45.00) Total Protein (6.3-8.2) g/dL Albumin (3.5-5.0) g/dL Crossmatch 07/01/19 07/02/19 07/02/19 Range/Units 23:10 01:45 02:52 WBC (3.8-10.6) k/uL RBC (3.80-5.40) m/uL Hgb (11.4-16.0) gm/dL Hct (34.0-46.0) % MCV (80.0-100.0) fL MCHC (31.0-37.0) g/dL RDW (11.5-15.5) % Neutrophils # (1.3-7.7) k/uL Sodium (137-145) mmol/L Potassium 6.2 H* (3.5-5.1) mmol/L BUN (7-17) mg/dL Creatinine (0.52-1.04) mg/dL Glucose (74-99) mg/dL POC Glucose (mg/dL) 118 H (75-99) mg/dL Phosphorus (2.5-4.5) mg/dL Iron (50-170) ug/dL % Saturation (12.00-45.00) Total Protein (6.3-8.2) g/dL Albumin (3.5-5.0) g/dL Crossmatch See Detail 07/02/19 07/02/19 07/02/19 Range/Units 04:50 04:50 09:25 WBC 14.8 H (3.8-10.6) k/uL RBC 2.29 L (3.80-5.40) m/uL Hgb 7.2 L (11.4-16.0) gm/dL Hct 24.0 L (34.0-46.0) % MCV 105.0 H (80.0-100.0) fL MCHC 29.9 L (31.0-37.0) g/dL RDW 17.4 H (11.5-15.5) % Neutrophils # 12.1 H (1.3-7.7) k/uL Sodium 135 L (137-145) mmol/L Potassium 5.9 H (3.5-5.1) mmol/L BUN 69 H (7-17) mg/dL Creatinine 6.14 H (0.52-1.04) mg/dL Glucose 136 H (74-99) mg/dL POC Glucose (mg/dL) 177 H (75-99) mg/dL Phosphorus 5.3 H (2.5-4.5) mg/dL Iron (50-170) ug/dL % Saturation (12.00-45.00) Total Protein 4.7 L (6.3-8.2) g/dL Albumin 2.7 L (3.5-5.0) g/dL Crossmatch 07/02/19 Range/Units 11:43 WBC (3.8-10.6) k/uL RBC (3.80-5.40) m/uL Hgb (11.4-16.0) gm/dL Hct (34.0-46.0) % MCV (80.0-100.0) fL MCHC (31.0-37.0) g/dL RDW (11.5-15.5) % Neutrophils # (1.3-7.7) k/uL Sodium (137-145) mmol/L Potassium (3.5-5.1) mmol/L BUN (7-17) mg/dL Creatinine (0.52-1.04) mg/dL Glucose (74-99) mg/dL POC Glucose (mg/dL) 162 H (75-99) mg/dL Phosphorus (2.5-4.5) mg/dL Iron (50-170) ug/dL % Saturation (12.00-45.00) Total Protein (6.3-8.2) g/dL Albumin (3.5-5.0) g/dL Crossmatch Assessment and Plan Assessment: Hyperkalemia, in a patient with end-stage kidney disease ,secondary to missed hemodialysis 1 week Bradycardia secondary to the above Acute on chronic hypoxic respiratory failure multifactorial, secondary to fluid overload, obesity, hypoventilation. Wears 2 L nasal cannula at [facility]. Hypervolemic hyponatremia, improved Possibly Acute on chronic CHF exacerbation, diastolic dysfunction secondary to fluid overload from #1 Right lower leg traumatic laceration secondary to tear from monitor during transport to the ICU. Acute on chronic Anemia. Acute secondary to blood loss from traumatic left neck triple-lumen subclavian insertion requiring discontinuation in addition to right lower leg traumatic laceration from monitor during transfer. Diabetes mellitus CAD, history of stenting hypertension hyperlipidemia Morbid obesity, BMI 63.9 sleep apnea unable to tolerate CPAP Coronavirus not detected Plan: Continue on current medication regime ,monitoring and symptomatic treatment. One unit of packed RBCs ordered. Scheduled for another hemodialysis session today. Cleared by behavior interventionist for transfer out of ICU to regular MedSurg unit with remote telemetry. Follow closely with multiple consults. The impression and plan of care has been dictated as directed. : I performed a history and examination of this patient, discussed the same with the dictator. I agree with the dictator's note ,documented as a scribe. Any additional findings or plans will be noted.
--- NOTE | 2019-07-03 17:27 | P.PN ---
Subjective Progress Note Date: 07/03/19 This is a 74-year-old female admitted with severe hyperkalemia, severe fluid volume overload, end-stage kidney disease, and multiple other medical issues. Underwent hemodialysis/ultrafiltration yesterday, tolerated well. Potassium 4.6. Doppler of right lower extremity reporting limited exam negative for DVT. Hemoglobin dropped to 6.8 today, receiving one unit of packed RBCs. UA suggestive of acute UTI, asymptomatic. Continues on Levaquin. Maintaining O2 sats in the 90s on 3-4 L nasal cannula. Scheduled for hemodialysis today. Beta blockers remain on hold, bradycardia improving with heart rates currently in the low 60s. Objective - Vital Signs Vital signs: Vital Signs Temp 97.9 F 07/03/19 11:53 Pulse 60 07/03/19 15:43 Resp 22 07/03/19 15:43 BP 106/60 07/03/19 11:53 Pulse Ox 95 07/03/19 11:00 Intake & Output 07/02/19 07/03/19 07/03/19 18:59 06:59 18:59 Intake Total 1094 55 590 Output Total 3835 20 3205 Balance -2741 35 -2615 Weight 153.3 kg Intake: IV 105 55 30 Desmopressin Acetate 14 50 mcg In Sodium Chloride 0. 9% 50 ml @ 200 mls/hr IVPB ONCE ONE Rx#: [id number] KVO 55 55 30 Oral 120 250 Blood Product 869 310 Ffp 24 Cpd Unit 296 [id number] Ffp 24 Cpd Unit 263 [id number] As-1 Unit 310 [id number] Rc Pheresis 2 As3 Unit 310 [id number] Output: Urine 35 20 5 Hemodialysis 3800 3200 Other: Voiding Method Indwelling Catheter Indwelling Catheter Indwelling Catheter - Exam PHYSICAL EXAM: VITAL SIGNS: As above GENERAL: Sitting up in bed, no acute distress HEENT: Conjunctivae normal. eyes normal. Oral mucosa moist NECK: No JVD. No thyroid enlargement. No LNs. Left neck-prior subclavian line site oozy CARDIOVASCULAR: S1, S2 regular.. No murmur RESPIRATION: Breath sounds diminished in the bases. No rhonchi or crackles. No bronchial breathing. ABDOMEN: Soft, obese, nontender . No guarding. no masses palpable.Bowel sounds heard. LEGS: Positive edema. Right lower leg compression dressing clean dry and intact PSYCHIATRY: Alert and oriented X3, mood and affect normal. NERVOUS SYSTEM: Cranial N 2-12 grossly normal. Moves all 4 limbs. Diffuse weakness ,No focal deficits. Strength and sensation grossly intact.. Skin: no rash - Labs CBC & Chem 7: 07/03/19 13:00 07/03/19 04:20 Labs: Abnormal Lab Results - Last 24 Hours (Table) 07/02/19 07/02/19 07/02/19 Range/Units 01:45 20:30 20:30 WBC 17.9 H (3.8-10.6) k/uL RBC 2.29 L (3.80-5.40) m/uL Hgb 7.3 L (11.4-16.0) gm/dL Hct 23.8 L (34.0-46.0) % MCV 103.7 H (80.0-100.0) fL MCHC 30.5 L (31.0-37.0) g/dL RDW 18.2 H (11.5-15.5) % Neutrophils # 15.6 H (1.3-7.7) k/uL Neutrophils # (Manual) (1.3-7.7) k/uL Lymphocytes # 0.9 L (1.0-4.8) k/uL Metamyelocytes # (Man) (0) k/uL Myelocytes # (Manual) (0) k/uL Macrocytosis BUN (7-17) mg/dL Creatinine (0.52-1.04) mg/dL Glucose (74-99) mg/dL POC Glucose (mg/dL) 220 H (75-99) mg/dL Total Protein (6.3-8.2) g/dL Albumin (3.5-5.0) g/dL Urine Appearance (Clear) Urine Protein (Negative) Urine Blood (Negative) Ur Leukocyte Esterase (Negative) Urine RBC (0-5) /hpf Urine WBC (0-5) /hpf Urine WBC Clumps (None) /hpf Urine Bacteria (None) /hpf Crossmatch See Detail 07/03/19 07/03/19 07/03/19 Range/Units 04:20 04:20 04:20 WBC 14.5 H (3.8-10.6) k/uL RBC 2.16 L (3.80-5.40) m/uL Hgb 6.8 L* (11.4-16.0) gm/dL Hct 22.7 L (34.0-46.0) % MCV 104.7 H (80.0-100.0) fL MCHC 29.9 L (31.0-37.0) g/dL RDW 18.0 H (11.5-15.5) % Neutrophils # (1.3-7.7) k/uL Neutrophils # (Manual) 11.10 H (1.3-7.7) k/uL Lymphocytes # (1.0-4.8) k/uL Metamyelocytes # (Man) 0.58 H (0) k/uL Myelocytes # (Manual) 0.44 H (0) k/uL Macrocytosis Marked A BUN 41 H (7-17) mg/dL Creatinine 4.61 H (0.52-1.04) mg/dL Glucose 119 H (74-99) mg/dL POC Glucose (mg/dL) (75-99) mg/dL Total Protein 4.7 L (6.3-8.2) g/dL Albumin 2.7 L (3.5-5.0) g/dL Urine Appearance Turbid H (Clear) Urine Protein 2+ H (Negative) Urine Blood Large H (Negative) Ur Leukocyte Esterase Large H (Negative) Urine RBC >182 H (0-5) /hpf Urine WBC >182 H (0-5) /hpf Urine WBC Clumps Many H (None) /hpf Urine Bacteria Moderate H (None) /hpf Crossmatch 07/03/19 07/03/19 07/03/19 Range/Units 06:28 13:00 13:01 WBC 19.9 H (3.8-10.6) k/uL RBC 2.58 L (3.80-5.40) m/uL Hgb 8.2 L (11.4-16.0) gm/dL Hct 26.9 L (34.0-46.0) % MCV 104.2 H (80.0-100.0) fL MCHC 30.3 L (31.0-37.0) g/dL RDW 18.1 H (11.5-15.5) % Neutrophils # (1.3-7.7) k/uL Neutrophils # (Manual) (1.3-7.7) k/uL Lymphocytes # (1.0-4.8) k/uL Metamyelocytes # (Man) (0) k/uL Myelocytes # (Manual) (0) k/uL Macrocytosis BUN (7-17) mg/dL Creatinine (0.52-1.04) mg/dL Glucose (74-99) mg/dL POC Glucose (mg/dL) 132 H 205 H (75-99) mg/dL Total Protein (6.3-8.2) g/dL Albumin (3.5-5.0) g/dL Urine Appearance (Clear) Urine Protein (Negative) Urine Blood (Negative) Ur Leukocyte Esterase (Negative) Urine RBC (0-5) /hpf Urine WBC (0-5) /hpf Urine WBC Clumps (None) /hpf Urine Bacteria (None) /hpf Crossmatch Microbiology - Last 24 Hours (Table) 07/03/19 04:20 Urine Culture - Preliminary Urine,Voided Assessment and Plan Assessment: Hyperkalemia, in a patient with end-stage kidney disease ,secondary to missed hemodialysis 1 week Bradycardia secondary to the above Acute on chronic hypoxic respiratory failure multifactorial, secondary to fluid overload, obesity, hypoventilation. Wears 2 L nasal cannula at [facility]. Hypervolemic hyponatremia, improved Possibly Acute on chronic CHF exacerbation, diastolic dysfunction secondary to fluid overload from #1 Right lower leg traumatic laceration secondary to tear from monitor during transport to the ICU. Acute on chronic Anemia. Acute secondary to blood loss from traumatic left neck triple-lumen subclavian insertion in addition to right lower leg traumatic laceration from monitor during transfer. Diabetes mellitus CAD, history of stenting hypertension hyperlipidemia Morbid obesity, BMI 63.9 sleep apnea unable to tolerate CPAP Coronavirus not detected Plan: Continue on current medication regime ,monitoring and symptomatic treatment. One unit of packed RBCs ordered. Scheduled for another hemodialysis session today. Cleared by vamp throater for transfer out of ICU to regular [facility] unit with remote telemetry. Follow closely with multiple consults. The impression and plan of care has been dictated as directed. : I performed a history and examination of this patient, discussed the same with the dictator. I agree with the dictator's note ,documented as a scribe. Any additional findings or plans will be noted.
[2019-07-03 17:34] LABS: Glucose,Whole Blood 179 mg/dL (75-99)
[2019-07-03 20:01] LABS: Glucose,Whole Blood 201 mg/dL (75-99)
[2019-07-04 07:01] LABS: Glucose,Whole Blood 165 mg/dL (75-99)
[2019-07-04 07:24] LABS: Anisocytosis Slight; Basophils # (A) 0.1 k/uL (0-0.2); Basophils % (A) 1 %; Eosinophils # (A) 0.5 k/uL (0-0.7); Eosinophils % (A) 3 %; HGB 7.7 gm/dL (11.4-16.0); Hypochromasia Marked; Lymphocytes # (A) 1.7 k/uL (1.0-4.8); Lymphocytes % (A) 9 %; MCH 31.7 pg (25.0-35.0); MCHC 29.7 g/dL (31.0-37.0); MCV 106.7 fL (80.0-100.0); Macrocytosis Marked; Mean Platelet Volume 7.7; Monocytes # (A) 0.9 k/uL (0-1.0); Monocytes % (A) 5 %; Neutrophils # (A) 14.7 k/uL (1.3-7.7); Neutrophils % (A) 81 %; Platelet Count 167 k/uL (150-450); Poikilocytosis Moderate; RBC 2.44 m/uL (3.80-5.40)
[2019-07-04 07:47] LABS: Calcium 8.5 mg/dL (8.4-10.2); Potassium 3.6 mmol/L (3.5-5.1)
[2019-07-04] MEDS: MIDODRINE 5 MG TAB PO SCH ×3 (09:12→18:16)
[2019-07-04] MEDS: SEVELAMER 800 MG TAB PO SCH ×3 (09:12→18:16)
[2019-07-04] MEDS: FUROSEMIDE 10 MG/ML 10 ML VIAL IV SCH ×2 (09:12→22:12)
[2019-07-04] MEDS: INSULIN ASPART (NovoLOG) 100 UNIT/ML VIAL SQ SCH ×4 (09:15→22:13)
--- NOTE | 2019-07-04 09:33 | P.PN ---
Subjective Patient is seen in follow-up for end-stage renal disease. She has been undergoing daily dialysis this week mostly for ultrafiltration. Still quite edematous. Denies chest pain or shortness of breath. Vital signs are stable. General: The patient appeared well nourished and normally developed. HEENT: Head exam is unremarkable. Neck is without jugular venous distension. LUNGS: Lungs are clear to auscultation and percussion. Breath sounds decreased. HEART: Rate and Rhythm are regular. ABDOMEN: Soft, obese. EXTREMITITES: 3+ edema. Objective - Vital Signs Vital signs: Vital Signs Temp 97.6 F 07/04/19 05:09 Pulse 67 07/04/19 05:09 Resp 20 07/04/19 05:09 BP 120/54 07/04/19 05:09 Pulse Ox 97 07/04/19 05:09 Intake & Output 07/03/19 07/04/19 07/04/19 18:59 06:59 18:59 Intake Total 590 1180 Output Total 3210 Balance -2620 1180 Intake: IV 30 KVO 30 Oral 250 1180 Blood Product 310 Rc Pheresis 2 As3 Unit 310 [id number] Output: Urine 10 Hemodialysis 3200 Other: Voiding Method Indwelling Catheter Indwelling Catheter - Labs CBC & Chem 7: 07/04/19 06:04 07/04/19 06:04 Labs: Abnormal Lab Results - Last 24 Hours (Table) 07/02/19 07/03/19 07/03/19 Range/Units 01:45 13:00 13:01 WBC 19.9 H (3.8-10.6) k/uL RBC 2.58 L (3.80-5.40) m/uL Hgb 8.2 L (11.4-16.0) gm/dL Hct 26.9 L (34.0-46.0) % MCV 104.2 H (80.0-100.0) fL MCHC 30.3 L (31.0-37.0) g/dL RDW 18.1 H (11.5-15.5) % Neutrophils # (1.3-7.7) k/uL Macrocytosis Sodium (137-145) mmol/L BUN (7-17) mg/dL Creatinine (0.52-1.04) mg/dL Glucose (74-99) mg/dL POC Glucose (mg/dL) 205 H (75-99) mg/dL Crossmatch See Detail 07/03/19 07/03/19 07/04/19 Range/Units 17:31 20:00 06:04 WBC 18.0 H (3.8-10.6) k/uL RBC 2.44 L (3.80-5.40) m/uL Hgb 7.7 L (11.4-16.0) gm/dL Hct 26.0 L (34.0-46.0) % MCV 106.7 H (80.0-100.0) fL MCHC 29.7 L (31.0-37.0) g/dL RDW 18.0 H (11.5-15.5) % Neutrophils # 14.7 H (1.3-7.7) k/uL Macrocytosis Marked A Sodium (137-145) mmol/L BUN (7-17) mg/dL Creatinine (0.52-1.04) mg/dL Glucose (74-99) mg/dL POC Glucose (mg/dL) 179 H 201 H (75-99) mg/dL Crossmatch 07/04/19 07/04/19 Range/Units 06:04 06:59 WBC (3.8-10.6) k/uL RBC (3.80-5.40) m/uL Hgb (11.4-16.0) gm/dL Hct (34.0-46.0) % MCV (80.0-100.0) fL MCHC (31.0-37.0) g/dL RDW (11.5-15.5) % Neutrophils # (1.3-7.7) k/uL Macrocytosis Sodium 134 L (137-145) mmol/L BUN 29 H (7-17) mg/dL Creatinine 3.77 H (0.52-1.04) mg/dL Glucose 140 H (74-99) mg/dL POC Glucose (mg/dL) 165 H (75-99) mg/dL Crossmatch Microbiology - Last 24 Hours (Table) 07/03/19 04:20 Urine Culture - Preliminary Urine,Voided Assessment and Plan Plan: Assessment: 1. End-stage renal disease maintained on hemodialysis on Monday schedule. 2. Hyperkalemia secondary to missed hemodialysis. Improved postdialysis. 3. Hypervolemic hyponatremia. Better. 4. Severe volume overload. Improving gradually with ultrafiltration. 5. Anemia of chronic kidney disease. Also was oozing from the triple-lumen site which has been removed. Maintained on Aranesp. Status post 2 units of b lood transfusion this admission. 6. Hyperphosphatemia secondary to chronic kidney disease maintained on Renvela. 7. Chronic hypotension maintained on midodrine. 8. Acute on chronic diastolic CHF with severe pulmonary hypertension. Plan: Continue with daily dialysis for now due to volume overload.
--- NOTE | 2019-07-04 10:36 | P.PN ---
Subjective Progress Note Date: 07/04/19 Principal diagnosis: Severe bradycardia and junctional rhythm severe hyperkalemia Severe anemia Hypovolemic shock Chronic renal failure Acute on chronic diastolic heart failure likely Acute respiratory failure multifactorial processes including fluid overload, obesity hypoventilation, Coronary artery disease History of CVA TIA Diabetes mellitus Obstructive sleep apnea cannot tolerate the CPAP 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 07/04/2019, patient seen eval examined during the rounds labs reviewed medications reviewed, patient is on 2 L oxygen breathing comfortably patient is due for dialysis today, today's labs are pending, urine culture results are pending, patient is on antibiotics Levaquin every 48 hours 07/03/2019, patient seen and evaluated examined during the rounds hemodynamic status stable systolic blood pressure, heart rate is improved now is 50-60, patient is spontaneously breathing on 3 L nasal cannula, the dressing on hold left-sided IJ triple-lumen appears intact no hematoma identified, right sided triple-lumen working well, patient is undergoing hemodialysis now, hemoglobin drop down to 6.8 Will give 1 unit of packed RBC with the dialysis, labs are reviewed WBC coming down and is 14.5 sugars are stable, his urine is dark brown turbid with large blood and large leukocyte esterase many WBCs moderate bacteria, culture is pending, we will add broad-spectrum antibiotics with IV Rocephin pending culture reports critical care time spent 35 minutes 07/02/2019, patient seen and evaluated examined during the rounds as reviewed medications reviewed, patient underwent hemodialysis yesterday at 3 L of fluid has been removed, blood pressure today is running on the lower side systolic is 82-84, patient still bradycardic heart rate is about 40 junctional rhythm, patient is due for dialysis today, blood is oozing from left IJ triple-lumen catheter and it did not stop by applying pressure and local conservative measures hemoglobin is down to 7.1 patient is getting transfusion of one packed RBC 2 packs of FFP to be given also will give DDAVP discussed with renal service left IJ triple-lumen catheter to be removed will put a right internal jugular triple-lumen catheter, patient may require vasopressors now, labs are reviewed white cell count is still elevated 14.8 hemoglobin is 7.2 platelet count is 238 fraction was reduced to 5.9 BUN/creatinine is 69 /6.14, chest x-ray cardiomegaly interstitial edema and stable position of dialysis catheter, critical care time spent 35 minutes excluding procedure time Mrs. Antonio is a morbidly obese 74-year-old female who has chronic renal failure on hemodialysis but a week ago refused hemodialysis planning to go on hospice, over the weekend she has changed her mind and would like to undergo dialysis again came into the hospital with progressive shortness of breath she is a resident of extended care facility she is arousable opens eyes follow simple commands but has ongoing shortness of breath which is worse than before, also have dyspnea and some cough however is afebrile, patient is very bradycardic hypotensive heart rate is 35 junctional rhythm blood pressure is 87/55 saturation however is 97% on supplemental oxygen rotation level few days ago was over 7 repeat levels are pending, white cell count is 14,000 and hemoglobin is 9.1, cold with his negative PT-INR and PTT within normal limits, EKG finding as above, patient is being given potassium lowering cocktail, and p atient is in process of being removed from the ER room #1 to room #10 for stat hemodialysis, her chest x-ray showed interstitial edema and cardiomegaly, a triple-lumen catheter was inserted by ER physician and left IJ Objective - Vital Signs Vital signs: Vital Signs Temp 97.6 F 07/04/19 05:09 Pulse 67 07/04/19 05:09 Resp 20 07/04/19 05:09 BP 120/54 07/04/19 05:09 Pulse Ox 97 07/04/19 05:09 Intake & Output 07/03/19 07/04/19 07/04/19 18:59 06:59 18:59 Intake Total 590 1180 Output Total 3210 Balance -2620 1180 Intake: IV 30 KVO 30 Oral 250 1180 Blood Product 310 Rc Pheresis 2 As3 Unit 310 [id number] Output: Urine 10 Hemodialysis 3200 Other: Voiding Method Indwelling Catheter Indwelling Catheter - Exam - Constitutional General appearance: disheveled, mild distress, morbidly obese, more awake and alert - EENT Eyes: EOMI, PERRLA ENT: hard of hearing Ears: bilateral: normal - Neck Neck: normal ROM Carotids: bilateral: upstroke normal Thyroid: bilateral: normal size - Respiratory Respiratory: bilateral: diminished, rales (At the bases with coronary and) - Cardiovascular Rhythm: regular Heart sounds: normal: S1, S2 - Gastrointestinal General gastrointestinal: decreased bowel sounds, distended - Integumentary +2-3 pedal edema, lacerated wound on left leg dry dressing applied, right big toe dry gangrene Integumentary: decreased turgor - Musculoskeletal Musculoskeletal: generalized weakness, strength equal bilaterally, awake and alert - Labs CBC & Chem 7: 07/04/19 06:04 07/04/19 06:04 Labs: Abnormal Lab Results - Last 24 Hours (Table) 07/03/19 07/03/19 07/03/19 Range/Units 13:00 13:01 17:31 WBC 19.9 H (3.8-10.6) k/uL RBC 2.58 L (3.80-5.40) m/uL Hgb 8.2 L (11.4-16.0) gm/dL Hct 26.9 L (34.0-46.0) % MCV 104.2 H (80.0-100.0) fL MCHC 30.3 L (31.0-37.0) g/dL RDW 18.1 H (11.5-15.5) % Neutrophils # (1.3-7.7) k/uL Macrocytosis Sodium (137-145) mmol/L BUN (7-17) mg/dL Creatinine (0.52-1.04) mg/dL Glucose (74-99) mg/dL POC Glucose (mg/dL) 205 H 179 H (75-99) mg/dL 07/03/19 07/04/19 07/04/19 Range/Units 20:00 06:04 06:04 WBC 18.0 H (3.8-10.6) k/uL RBC 2.44 L (3.80-5.40) m/uL Hgb 7.7 L (11.4-16.0) gm/dL Hct 26.0 L (34.0-46.0) % MCV 106.7 H (80.0-100.0) fL MCHC 29.7 L (31.0-37.0) g/dL RDW 18.0 H (11.5-15.5) % Neutrophils # 14.7 H (1.3-7.7) k/uL Macrocytosis Marked A Sodium 134 L (137-145) mmol/L BUN 29 H (7-17) mg/dL Creatinine 3.77 H (0.52-1.04) mg/dL Glucose 140 H (74-99) mg/dL POC Glucose (mg/dL) 201 H (75-99) mg/dL 07/04/19 Range/Units 06:59 WBC (3.8-10.6) k/uL RBC (3.80-5.40) m/uL Hgb (11.4-16.0) gm/dL Hct (34.0-46.0) % MCV (80.0-100.0) fL MCHC (31.0-37.0) g/dL RDW (11.5-15.5) % Neutrophils # (1.3-7.7) k/uL Macrocytosis Sodium (137-145) mmol/L BUN (7-17) mg/dL Creatinine (0.52-1.04) mg/dL Glucose (74-99) mg/dL POC Glucose (mg/dL) 165 H (75-99) mg/dL Microbiology - Last 24 Hours (Table) 07/03/19 04:20 Urine Culture - Preliminary Urine,Voided Assessment and Plan Assessment: Urinary tract infection Hypo-volumic shock improved Acute blood loss anemia from triple-lumen catheter on the left side will continue to observe Severe bradycardia and junctional rhythm, continued to improve Likely severe hyperkalemia, continued to improve on hemodialysis Chronic renal failure, on hemodialysis Acute on chronic diastolic heart failure likely Acute respiratory failure multifactorial processes including fluid overload, obesity hypoventilation, on 2 L nasal cannula currently breathing comfortably Coronary artery disease History of CVA TIA Diabetes mellitus Obstructive sleep apnea cannot tolerate the CPAP 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 Plan: Continue to follow hemoglobin closely Continue patient on broad-spectrum antibiotics with IV Levaquin every 48 hour Repeat dialysis as per renal services Blood transfusion as needed to keep hemoglobin over 7 New IJ triple-lumen central line working well Stable side of old left-sided central line Monitor closely on [facility] with remote telemetry Further recommendations pending plan of care as per clinical response of patient Patient appears to be stable on supplemental oxygen and with adequate ventilation will monitor closely Time with Patient: Greater than 30
--- NOTE | 2019-07-04 11:09 | CDI ---
Documentation Clarification Form Date: 07/04/2019 10:56:53 AM From: Camille Norman CCS, CCDS Admit Date: 07/01/2019 09:33:00 AM Patient Name: Carla Garvin Visit Number: [id number] Discharge Date: ATTENTION: The Clinical Documentation Specialists (CDI) and [facility] Coding Staff appreciate your assistance in clarifying documentation. Please respond to the clarification below the line at the bottom and electronically sign. The CDI & [facility] Coding staff will review the response and follow-up if needed. Please note: Queries are made part of the Legal Health Record. If you have any questions, please contact the author of this message via ITS. Dr. Chris Yi: Encephalopathy is documented in the 06/30 History & Physical without further specificity. History/Risk Factors: Diastolic heart failure, COPD, ESRD on hemodialysis, Chronic hypoxic respiratory failure on home O2 2Lnc, CAD, CVA/TIA, Obstructive sleep apnea with Morbid Obesity w/alveolar hypoventilation, BMI 63.9, DM II & history of MRSA. Clinical Indicators: Presented to the ED on 06/30 from a SNF with severe Hyperkalemia & Bradycardia after missing dialysis for a week, dyspnea & bilateral lower leg edema. Diagnosed with Hyperkalemia, Acute on Chronic Diastolic CHF, Acute on Chronic Hypoxic Respiratory Failure, Hypovolemic Shock, Acute Blood Loss Anemia, UTI, Hyponatremia & also suffered a laceration of her Right Lower Leg during transport. VS: T 97.8, P 35*, R 26 (SOB, labored), BP 87/55, PO 97 4Lnc. Labs: WBC 14.0^, Hgb 9.1*, Hct 28.5*, Neut 12.4^, Na 127*, K 8.2^^, BUN 119^, Cr 8.33^^, Gluc 227^, Phos 7.0^, Mag 2.5^. Treatment: INH Albuterol, IV Calcium Gluconate, IV Dextrose, IV Insulin, IV NaBicarb, O2 4Lnc. Admitted to ICU with consults to Pulmonary/Critical Care, Cardiology, Nephrology & General Surgery In your professional opinion, can you please clarify the specific type of Encephalopathy, if known? Metabolic Encephalopathy Toxic Encephalopathy Other, please specify Unable to determine (Last Revision: June 2017) MTDD
[2019-07-04 11:21] LABS: Glucose,Whole Blood 218 mg/dL (75-99)
--- NOTE | 2019-07-04 15:56 | P.PN ---
Subjective Progress Note Date: 07/04/19 This is a 74-year-old female admitted with severe hyperkalemia, severe fluid volume overload, end-stage kidney disease, and multiple other medical issues. Underwent hemodialysis/ultrafiltration yesterday, tolerated well. Potassium 4.6. Doppler of right lower extremity reporting limited exam negative for DVT. Hemoglobin dropped to 6.8 today, receiving one unit of packed RBCs. UA suggestive of acute UTI, asymptomatic. Continues on Levaquin. Maintaining O2 sats in the 90s on 3-4 L nasal cannula. Scheduled for hemodialysis today. Beta blockers remain on hold, bradycardia improving with heart rates currently in the low 60s. 07/04/19 currently on the MedSurg unit, feeling better. Maintained on daily dialysis/ultrafiltration. Denies chest pain, palpitations or shortness of breath. Maintaining O2 sats in the high 90s to 100s on 2 L nasal cannula. Hemoglobin 7.7. Sodium 134. Objective - Vital Signs Vital signs: Vital Signs Temp 97.6 F 07/04/19 05:09 Pulse 67 07/04/19 05:09 Resp 20 07/04/19 05:09 BP 120/54 07/04/19 05:09 Pulse Ox 97 07/04/19 05:09 Intake & Output 07/03/19 07/04/19 07/04/19 18:59 06:59 18:59 Intake Total 590 1180 Output Total 3210 Balance -2620 1180 Intake: IV 30 KVO 30 Oral 250 1180 Blood Product 310 Rc Pheresis 2 As3 Unit 310 [id number] Output: Urine 10 Hemodialysis 3200 Other: Voiding Method Indwelling Catheter Indwelling Catheter - Exam PHYSICAL EXAM: VITAL SIGNS: As above GENERAL: Sitting up in bed, no acute distress HEENT: Conjunctivae normal. eyes normal. Oral mucosa moist NECK: No JVD. No thyroid enlargement. No LNs. Left neck-prior subclavian line site oozy CARDIOVASCULAR: S1, S2 regular.. No murmur RESPIRATION: Breath sounds diminished in the bases. No rhonchi or crackles. No bronchial breathing. ABDOMEN: Soft, obese, nontender . No guarding. no masses palpable.Bowel sounds heard. LEGS: Positive edema. Right lower leg compression dressing clean dry and intact PSYCHIATRY: Alert and oriented X3, mood and affect normal. NERVOUS SYSTEM: Cranial N 2-12 grossly normal. Moves all 4 limbs. Diffuse weakness ,No focal deficits. Skin: no rash - Labs CBC & Chem 7: 07/04/19 06:04 07/04/19 06:04 Labs: Abnormal Lab Results - Last 24 Hours (Table) 07/03/19 07/03/19 07/03/19 Range/Units 13:00 13:01 17:31 WBC 19.9 H (3.8-10.6) k/uL RBC 2.58 L (3.80-5.40) m/uL Hgb 8.2 L (11.4-16.0) gm/dL Hct 26.9 L (34.0-46.0) % MCV 104.2 H (80.0-100.0) fL MCHC 30.3 L (31.0-37.0) g/dL RDW 18.1 H (11.5-15.5) % Neutrophils # (1.3-7.7) k/uL Macrocytosis Sodium (137-145) mmol/L BUN (7-17) mg/dL Creatinine (0.52-1.04) mg/dL Glucose (74-99) mg/dL POC Glucose (mg/dL) 205 H 179 H (75-99) mg/dL 07/03/19 07/04/19 07/04/19 Range/Units 20:00 06:04 06:04 WBC 18.0 H (3.8-10.6) k/uL RBC 2.44 L (3.80-5.40) m/uL Hgb 7.7 L (11.4-16.0) gm/dL Hct 26.0 L (34.0-46.0) % MCV 106.7 H (80.0-100.0) fL MCHC 29.7 L (31.0-37.0) g/dL RDW 18.0 H (11.5-15.5) % Neutrophils # 14.7 H (1.3-7.7) k/uL Macrocytosis Marked A Sodium 134 L (137-145) mmol/L BUN 29 H (7-17) mg/dL Creatinine 3.77 H (0.52-1.04) mg/dL Glucose 140 H (74-99) mg/dL POC Glucose (mg/dL) 201 H (75-99) mg/dL 04/30/20 Range/Units 06:59 WBC (3.8-10.6) k/uL RBC (3.80-5.40) m/uL Hgb (11.4-16.0) gm/dL Hct (34.0-46.0) % MCV (80.0-100.0) fL MCHC (31.0-37.0) g/dL RDW (11.5-15.5) % Neutrophils # (1.3-7.7) k/uL Macrocytosis Sodium (137-145) mmol/L BUN (7-17) mg/dL Creatinine (0.52-1.04) mg/dL Glucose (74-99) mg/dL POC Glucose (mg/dL) 165 H (75-99) mg/dL Microbiology - Last 24 Hours (Table) 07/03/19 04:20 Urine Culture - Preliminary Urine,Voided Assessment and Plan Assessment: Hyperkalemia, in a patient with end-stage kidney disease ,secondary to missed hemodialysis 1 week. Bradycardia secondary to the above Acute on chronic hypoxic respiratory failure multifactorial, secondary to fluid overload, obesity, hypoventilation. Wears 2 L nasal cannula at [facility]. Acute UTI, cultures pending Toxic and metabolic encephalopathy, multifactorial, improved Hypervolemic hyponatremia, improved Possibly Acute on chronic CHF exacerbation, diastolic dysfunction secondary to fluid overload from #1 Right lower leg traumatic laceration secondary to tear from monitor during transport to the ICU. Acute on chronic Anemia. Acute secondary to blood loss from traumatic left neck triple-lumen subclavian catheter, discontinued, in addition to right lower leg traumatic laceration from monitor during transfer. Diabetes mellitus CAD, history of stenting hypertension hyperlipidemia Morbid obesity, BMI 63.9 sleep apnea unable to tolerate CPAP Coronavirus not detected Plan: Continue on current medication regime ,monitoring and symptomatic treatmen t. Dialysis/ultrafiltration as per nephrology. Continue antibiotics of Levaquin, Urine culture pending. Close monitoring of hemoglobin, electrolytes, renal function with repeat labs ordered for a.m. The impression and plan of care has been dictated as directed. : I performed a history and examination of this patient, discussed the same with the dictator. I agree with the dictator's note ,documented as a scribe. Any additional findings or plans will be noted.
[2019-07-04] MEDS: traMADol 50 MG TAB PO PRN (22:12)
[2019-07-05 00:05] LABS: Hepatitis B Surface AB- Quant 3.5 mIU/mL; Hepatitis B Surface Antibody Non-Reactive (Non-Reactive)
[2019-07-05] MEDS: traMADol 50 MG TAB PO PRN ×3 (05:22→20:12)
[2019-07-05 07:41] LABS: Calcium 8.3 mg/dL (8.4-10.2); Potassium 3.7 mmol/L (3.5-5.1)
[2019-07-05 07:47] LABS: Glucose,Whole Blood 193 mg/dL (75-99)
[2019-07-05 07:52] LABS: Glucose,Whole Blood 145 mg/dL (75-99)
[2019-07-05 08:02] LABS: Glucose,Whole Blood 194 mg/dL (75-99)
[2019-07-05 08:04] LABS: Anisocytosis Slight; Basophils # (A) 0.2 k/uL (0-0.2); Basophils % (A) 1 %; Eosinophils # (A) 0.4 k/uL (0-0.7); Eosinophils % (A) 2 %; HCT 24.7 % (34.0-46.0); HGB 7.4 gm/dL (11.4-16.0); Hypochromasia Marked; Lymphocytes # (A) 1.3 k/uL (1.0-4.8); Lymphocytes % (A) 9 %; MCH 31.8 pg (25.0-35.0); MCV 106.2 fL (80.0-100.0); Macrocytosis Marked; Mean Platelet Volume 8.1; Monocytes # (A) 0.8 k/uL (0-1.0); Monocytes % (A) 5 %; Neutrophils # (A) 12.1 k/uL (1.3-7.7); Neutrophils % (A) 81 %; Platelet Count 150 k/uL (150-450); Poikilocytosis Slight; RBC 2.32 m/uL (3.80-5.40); RDW 17.8 % (11.5-15.5); WBC 14.9 k/uL (3.8-10.6)
[2019-07-05] MEDS: INSULIN ASPART (NovoLOG) 100 UNIT/ML VIAL SQ SCH ×4 (08:04→21:28)
[2019-07-05] MEDS: SEVELAMER 800 MG TAB PO SCH ×3 (08:07→17:50)
[2019-07-05] MEDS: MIDODRINE 5 MG TAB PO SCH ×3 (08:07→17:50)
[2019-07-05] MEDS: FUROSEMIDE 10 MG/ML 10 ML VIAL IV SCH ×2 (08:07→20:13)
[2019-07-05] MEDS: LEVOFLOXACIN 500MG-D5W PMX 500 MG in DEXTROSE/WATER 1 100ML.BAG IVPB SCH (08:11)
[2019-07-05] MEDS: ACETAMINOPHEN TAB 325 MG TAB PO PRN ×3 (08:48→21:27)
--- NOTE | 2019-07-05 10:03 | P.PN ---
Subjective Progress Note Date: 07/05/19 Principal diagnosis: Severe bradycardia and junctional rhythm severe hyperkalemia Severe anemia Hypovolemic shock Chronic renal failure Acute on chronic diastolic heart failure likely Acute respiratory failure multifactorial processes including fluid overload, obesity hypoventilation, Coronary artery disease History of CVA TIA Diabetes mellitus Obstructive sleep apnea cannot tolerate the CPAP 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 07/05/2019, patient has been doing well white cell count is coming down, hemoglobin remained stable, labs from today is pending, hemodynamic status stable urine culture came back positive for ESBL E. coli, patient is on Levaquin for which it is resistant we'll consult infectious disease 07/04/2019, patient seen eval examined during the rounds labs reviewed medications reviewed, patient is on 2 L oxygen breathing comfortably patient is due for dialysis today, today's labs are pending, urine culture results are pending, patient is on antibiotics Levaquin every 48 hours 07/03/2019, patient seen and evaluated examined during the rounds hemodynamic status stable systolic blood pressure, heart rate is improved now is 50-60, patient is spontaneously breathing on 3 L nasal cannula, the dressing on hold left-sided IJ triple-lumen appears intact no hematoma identified, right sided triple-lumen working well, patient is undergoing hemodialysis now, hemoglobin drop down to 6.8 Will give 1 unit of packed RBC with the dialysis, labs are reviewed WBC coming down and is 14.5 sugars are stable, his urine is dark brown turbid with large blood and large leukocyte esterase many WBCs moderate bacteria, culture is pending, we will add broad-spectrum antibiotics with IV Rocephin pending culture reports critical care time spent 35 minutes 07/02/2019, patient seen and evaluated examined during the rounds as reviewed medications reviewed, patient underwent hemodialysis yesterday at 3 L of fluid has been removed, blood pressure today is running on the lower side systolic is 82-84, patient still bradycardic heart rate is about 40 junctional rhythm, patient is due for dialysis today, blood is oozing from left IJ triple-lumen catheter and it did not stop by applying pressure and local conservative measures hemoglobin is down to 7.1 patient is getting transfusion of one packed RBC 2 packs of FFP to be given also will give DDAVP discussed with renal service left IJ triple-lumen catheter to be removed will put a right internal jugular triple-lumen catheter, patient may require vasopressors now, labs are reviewed white cell count is still elevated 14.8 hemoglobin is 7.2 platelet count is 238 fraction was reduced to 5.9 BUN/creatinine is 69 /6.14, chest x-ray cardiomegaly interstitial edema and stable position of dialysis catheter, critical care time spent 35 minutes excluding procedure time Mrs. Antonio is a morbidly obese 74-year-old female who has chronic renal failure on hemodialysis but a week ago refused hemodialysis planning to go on hospice, over the weekend she has changed her mind and would like to undergo di alysis again came into the hospital with progressive shortness of breath she is a resident of [facility] facility she is arousable opens eyes follow simple commands but has ongoing shortness of breath which is worse than before, also have dyspnea and some cough however is afebrile, patient is very bradycardic hypotensive heart rate is 35 junctional rhythm blood pressure is 87/55 saturation however is 97% on supplemental oxygen rotation level few days ago was over 7 repeat levels are pending, white cell count is 14,000 and hemoglobin is 9.1, cold with his negative PT-INR and PTT within normal limits, EKG finding as above, patient is being given potassium lowering cocktail, and patient is in process of being removed from the ER room #1 to room #10 for stat hemodialysis, her chest x-ray showed interstitial edema and cardiomegaly, a triple-lumen catheter was inserted by ER physician and left IJ Objective - Vital Signs Vital signs: Vital Signs Temp 98.5 F 07/05/19 04:48 Pulse 75 07/05/19 04:48 Resp 18 07/05/19 04:48 BP 133/55 07/05/19 04:48 Pulse Ox 98 07/05/19 04:48 Intake & Output 07/04/19 07/05/19 07/05/19 18:59 06:59 18:59 Intake Total 600 590 Output Total 155 0 Balance 445 590 Intake: Oral 600 590 Output: Urine 155 0 Other: Voiding Method Indwelling Catheter Indwelling Catheter - Exam - Constitutional General appearance: disheveled, mild distress, morbidly obese, more awake and alert - EENT Eyes: EOMI, PERRLA ENT: hard of hearing Ears: bilateral: normal - Neck Neck: normal ROM Carotids: bilateral: upstroke normal Thyroid: bilateral: normal size - Respiratory Respiratory: bilateral: diminished, rales (At the bases with coronary and) - Cardiovascular Rhythm: regular Heart sounds: normal: S1, S2 - Gastrointestinal General gastrointestinal: decreased bowel sounds, distended - Integumentary +2-3 pedal edema, lacerated wound on left leg dry dressing applied, right big toe dry gangrene Integumentary: decreased turgor - Musculoskeletal Musculoskeletal: generalized weakness, strength equal bilaterally, awake and alert - Labs CBC & Chem 7: 07/05/19 05:49 07/05/19 05:49 Labs: Abnormal Lab Results - Last 24 Hours (Table) 07/04/19 07/04/19 07/04/19 Range/Units 10:58 17:02 20:09 WBC (3.8-10.6) k/uL RBC (3.80-5.40) m/uL Hgb (11.4-16.0) gm/dL Hct (34.0-46.0) % MCV (80.0-100.0) fL MCHC (31.0-37.0) g/dL RDW (11.5-15.5) % Neutrophils # (1.3-7.7) k/uL Macrocytosis Sodium (137-145) mmol/L BUN (7-17) mg/dL Creatinine (0.52-1.04) mg/dL Glucose (74-99) mg/dL POC Glucose (mg/dL) 218 H 145 H 194 H (75-99) mg/dL Calcium (8.4-10.2) mg/dL 07/05/19 07/05/19 07/05/19 Range/Units 05:49 05:49 07:30 WBC 14.9 H (3.8-10.6) k/uL RBC 2.32 L (3.80-5.40) m/uL Hgb 7.4 L (11.4-16.0) gm/dL Hct 24.7 L (34.0-46.0) % MCV 106.2 H (80.0-100.0) fL MCHC 30.0 L (31.0-37.0) g/dL RDW 17.8 H (11.5-15.5) % Neutrophils # 12.1 H (1.3-7.7) k/uL Macrocytosis Marked A Sodium 134 L (137-145) mmol/L BUN 19 H (7-17) mg/dL Creatinine 2.58 H (0.52-1.04) mg/dL Glucose 174 H (74-99) mg/dL POC Glucose (mg/dL) 193 H (75-99) mg/dL Calcium 8.3 L (8.4-10.2) mg/dL Microbiology - Last 24 Hours (Table) 07/03/19 04:20 Urine Culture - Final Urine,Voided Escherichia coli Assessment and Plan Assessment: Urinary tract infection due to ESBL E. coli Hypo-volumic shock improved Acute blood loss anemia from triple-lumen catheter on the left side will continue to observe Severe bradycardia and junctional rhythm, continued to improve Likely severe hyperkalemia, continued to improve on hemodialysis Chronic renal failure, on hemodialysis Acute on chronic diastolic heart failure likely Acute respiratory failure multifactorial processes including fluid overload, obesity hypoventilation, on 2 L nasal cannula currently breathing comfortably Coronary artery disease History of CVA TIA Diabetes mellitus Obstructive sleep apnea cannot tolerate the CPAP 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 Plan: Continue to follow hemoglobin closely Patient antibiotics needs to be readjusted due to history of multiple drug ALLERGIES and ESBL E. coli we'll consult infectious disease Repeat dialysis as per renal services Blood transfusion as needed to keep hemoglobin over 7 New IJ triple-lumen central line working well Stable side of old left-sided central line Monitor closely on [employer] with remote telemetry Further recommendations pending plan of care as per clinical response of patient Patient appears to be stable on supplemental oxygen and with adequate ventilation will monitor closely Time with Patient: Greater than 30
--- NOTE | 2019-07-05 11:08 | P.PN ---
Subjective Patient is seen in follow-up for end-stage renal disease. She has been undergoing daily dialysis this week mostly for ultrafiltration. Still quite edematous But significantly improved since admission. Denies chest pain or shortness of breath. Vital signs are stable. General: The patient appeared well nourished and normally developed. HEENT: Head exam is unremarkable. Neck is without jugular venous distension. LUNGS: Lungs are clear to auscultation and percussion. Breath sounds decreased. HEART: Rate and Rhythm are regular. ABDOMEN: Soft, obese. EXTREMITITES: 3+ edema. Objective - Vital Signs Vital signs: Vital Signs Temp 98.5 F 07/05/19 04:48 Pulse 75 07/05/19 04:48 Resp 18 07/05/19 04:48 BP 133/55 07/05/19 04:48 Pulse Ox 98 07/05/19 04:48 Intake & Output 07/04/19 07/05/19 07/05/19 18:59 06:59 18:59 Intake Total 600 590 Output Total 155 0 Balance 445 590 Intake: Oral 600 590 Output: Urine 155 0 Other: Voiding Method Indwelling Catheter Indwelling Catheter - Labs CBC & Chem 7: 07/05/19 05:49 07/05/19 05:49 Labs: Abnormal Lab Results - Last 24 Hours (Table) 07/04/19 07/04/19 07/04/19 Range/Units 10:58 17:02 20:09 WBC (3.8-10.6) k/uL RBC (3.80-5.40) m/uL Hgb (11.4-16.0) gm/dL Hct (34.0-46.0) % MCV (80.0-100.0) fL MCHC (31.0-37.0) g/dL RDW (11.5-15.5) % Neutrophils # (1.3-7.7) k/uL Macrocytosis Sodium (137-145) mmol/L BUN (7-17) mg/dL Creatinine (0.52-1.04) mg/dL Glucose (74-99) mg/dL POC Glucose (mg/dL) 218 H 145 H 194 H (75-99) mg/dL Calcium (8.4-10.2) mg/dL 07/05/19 07/05/19 07/05/19 Range/Units 05:49 05:49 07:30 WBC 14.9 H (3.8-10.6) k/uL RBC 2.32 L (3.80-5.40) m/uL Hgb 7.4 L (11.4-16.0) gm/dL Hct 24.7 L (34.0-46.0) % MCV 106.2 H (80.0-100.0) fL MCHC 30.0 L (31.0-37.0) g/dL RDW 17.8 H (11.5-15.5) % Neutrophils # 12.1 H (1.3-7.7) k/uL Macrocytosis Marked A Sodium 134 L (137-145) mmol/L BUN 19 H (7-17) mg/dL Creatinine 2.58 H (0.52-1.04) mg/dL Glucose 174 H (74-99) mg/dL POC Glucose (mg/dL) 193 H (75-99) mg/dL Calcium 8.3 L (8.4-10.2) mg/dL Microbiology - Last 24 Hours (Table) 07/03/19 04:20 Urine Culture - Final Urine,Voided Escherichia coli Assessment and Plan Plan: Assessment: 1. End-stage renal disease maintained on hemodialysis on Monday schedule. 2. Hyperkalemia secondary to missed hemodialysis. Improved postdialysis. 3. Hypervolemic hyponatremia. Better. 4. Severe volume overload. Improving gradually with ultrafiltration. 5. Anemia of chronic kidney disease. Also was oozing from the triple-lumen site which has been removed. Maintained on Aranesp. Status post 2 units of blood transfusion this admission. 6. Hyperphosphatemia secondary to chronic kidney disease maintained on Renvela. 7. Chronic hypotension maintained on midodrine. 8. Acute on chronic diastolic CHF with severe pulmonary hypertension. Plan: Hemodialysis today and again tomorrow. She has been dialyzed daily since Monday mostly for ultrafiltration. Midodrine as needed for systolic blood pressure less than 110.
[2019-07-05 11:17] LABS: Glucose,Whole Blood 177 mg/dL (75-99)
--- NOTE | 2019-07-05 13:07 | P.PN ---
Subjective Progress Note Date: 07/05/19 This is a 74-year-old female admitted with severe hyperkalemia, severe fluid volume overload, end-stage kidney disease, and multiple other medical issues. Underwent hemodialysis/ultrafiltration yesterday, tolerated well. Potassium 4.6. Doppler of right lower extremity reporting limited exam negative for DVT. Hemoglobin dropped to 6.8 today, receiving one unit of packed RBCs. UA suggestive of acute UTI, asymptomatic. Continues on Levaquin. Maintaining O2 sats in the 90s on 3-4 L nasal cannula. Scheduled for hemodialysis today. Beta blockers remain on hold, bradycardia improving with heart rates currently in the low 60s. 07/04/19 currently on the MedSurg unit, feeling better. Maintained on daily dialysis/ultrafiltration. Denies chest pain, palpitations or shortness of breath. Maintaining O2 sats in the high 90s to 100s on 2 L nasal cannula. Hemoglobin 7.7. Sodium 134. 07/05/2019 diet intake 50%, blood sugars better controlled. Afebrile, WBC trending down to 14.9. Hemoglobin 7.4. Maintaining O2 sats in the 90s on 3 L nasal cannula. Creatinine down to 2.58. Denies chest pain, palpitations or shortness of breath. Urine culture reporting E. coli, susceptible to cephaspori ns. Continues on daily hemodialysis. Significant clinical improvement. Denies chest pain, palpitations or increasing shortness of breath. Objective - Vital Signs Vital signs: Vital Signs Temp 98.5 F 07/05/19 04:48 Pulse 75 07/05/19 04:48 Resp 18 07/05/19 04:48 BP 133/55 07/05/19 04:48 Pulse Ox 98 07/05/19 04:48 Intake & Output 07/04/19 07/05/19 07/05/19 18:59 06:59 18:59 Intake Total 600 590 Output Total 155 0 Balance 445 590 Intake: Oral 600 590 Output: Urine 155 0 Other: Voiding Method Indwelling Catheter Indwelling Catheter - Exam PHYSICAL EXAM: VITAL SIGNS: As above GENERAL: Sitting up in bed, no acute distress HEENT: Conjunctivae normal. eyes normal. Oral mucosa moist NECK: No JVD. No thyroid enlargement. No LNs. CARDIOVASCULAR: S1, S2 regular.. No murmur RESPIRATION: Breath sounds diminished in the bases. No rhonchi or crackles. No wheezing ABDOMEN: Soft, obese, nontender . No guarding. no masses palpable.Bowel sounds heard. LEGS: Positive edema. Right lower leg dressing clean dry and intact PSYCHIATRY: Alert and oriented X3, mood and affect normal. NERVOUS SYSTEM: Cranial N 2-12 grossly normal. Moves all 4 limbs. Diffuse weakness ,No focal deficits. Skin: no rash Microbiology 07/03/19 04:20 Urine,Voided Urine Culture - Final Escherichia coli - Labs CBC & Chem 7: 07/05/19 05:49 07/05/19 05:49 Labs: Abnormal Lab Results - Last 24 Hours (Table) 07/04/19 07/04/19 07/04/19 Range/Units 10:58 17:02 20:09 WBC (3.8-10.6) k/uL RBC (3.80-5.40) m/uL Hgb (11.4-16.0) gm/dL Hct (34.0-46.0) % MCV (80.0-100.0) fL MCHC (31.0-37.0) g/dL RDW (11.5-15.5) % Neutrophils # (1.3-7.7) k/uL Macrocytosis Sodium (137-145) mmol/L BUN (7-17) mg/dL Creatinine (0.52-1.04) mg/dL Glucose (74-99) mg/dL POC Glucose (mg/dL) 218 H 145 H 194 H (75-99) mg/dL Calcium (8.4-10.2) mg/dL 07/05/19 07/05/19 07/05/19 Range/Units 05:49 05:49 07:30 WBC 14.9 H (3.8-10.6) k/uL RBC 2.32 L (3.80-5.40) m/uL Hgb 7.4 L (11.4-16.0) gm/dL Hct 24.7 L (34.0-46.0) % MCV 106.2 H (80.0-100.0) fL MCHC 30.0 L (31.0-37.0) g/dL RDW 17.8 H (11.5-15.5) % Neutrophils # 12.1 H (1.3-7.7) k/uL Macrocytosis Marked A Sodium 134 L (137-145) mmol/L BUN 19 H (7-17) mg/dL Creatinine 2.58 H (0.52-1.04) mg/dL Glucose 174 H (74-99) mg/dL POC Glucose (mg/dL) 193 H (75-99) mg/dL Calcium 8.3 L (8.4-10.2) mg/dL Microbiology - Last 24 Hours (Table) 07/03/19 04:20 Urine Culture - Final Urine,Voided Escherichia coli Assessment and Plan Assessment: Hyperkalemia, in a patient with end-stage kidney disease ,secondary to missed hemodialysis 1 week. Bradycardia secondary to the above Acute on chronic hypoxic respiratory failure multifactorial, secondary to fluid overload, obesity, hypoventilation. Wears 2 L nasal cannula at [facility]. Acute UTI, E. coli Toxic and metabolic encephalopathy, multifactorial, improved Hypervolemic hyponatremia, improved Possibly Acute on chronic CHF exacerbation, diastolic dysfunction secondary to fluid overload from #1 Right lower leg traumatic laceration secondary to tear from monitor during transport to the ICU. Acute on chronic Anemia. Acute secondary to blood loss from traumatic left neck triple-lumen subclavian catheter, discontinued, in addition to right lower leg traumatic laceration from monitor during transfer. Diabetes mellitus CAD, history of stenting hypertension hyperlipidemia Morbid obesity, BMI 63.9 sleep apnea unable to tolerate CPAP Coronavirus not detected Plan: Continue on current medication regime ,monitoring and symptomatic treatme nt. ID consult in place with further antibiotic recommendations pending. Dialysis/ultrafiltration as per nephrology. Close monitoring of hemoglobin, electrolytes, renal function with repeat labs ordered for a.m. hemodialysis today and tomorrow. Discharge planning in progress pending nephrology's clearance for potentially tomorrow after hemodialysis, possibly Monday. The impression and plan of care has been dictated as directed. : I performed a history and examination of this patient, discussed the same with the dictator. I agree with the dictator's note ,documented as a scribe. Any additional findings or plans will be noted.
[2019-07-05] MEDS ORDERED: ERTAPENEM 1 GM in SODIUM CHLORIDE 0.9% 50 ML IVPB SCH (14:00)
--- NOTE | 2019-07-05 16:01 | US ---
EXAMINATION TYPE: US venous doppler duplex LE LT DATE OF EXAM: 07/05/2019 3:50 PM COMPARISON: NONE CLINICAL HISTORY: Bruising, swelling. Patient fell. Bruise on left calf. Extremely limited exam due t o morbidly obese patient. SIDE PERFORMED: Left TECHNIQUE: The lower extremity deep venous system is examined utilizing real time linear array sonog jamal with graded compression, doppler sonography and color-flow sonography. VESSELS IMAGED: External Iliac Vein (EIV) Common Femoral Vein Deep Femoral Vein Greater Saphenous Vein * Femoral Vein Popliteal Vein Small Saphenous Vein * Proximal Calf Veins (* superficial vessels) Left Leg: Negative for DVT as visualized At the area of the bruise, there is a complex area visualized measuring 7.1 cm this appears avascular . IMPRESSION: No sonographic evidence of deep venous thrombosis in the visualized portions of the left lower extremity. At the site of superficial ecchymosis there is a 7.1 cm avascular heterogenous mass, most likely related to a subcutaneous hematoma. If there is clinical enlargement or no improvement M RI with contrast could ensure no abnormal enhancement.
[2019-07-05 17:32] LABS: Glucose,Whole Blood 239 mg/dL (75-99)
--- NOTE | 2019-07-05 19:00 | DS ---
DISCHARGE SUMMARY ADDENDUM TO DISCHARGE SUMMARY: Metabolic encephalopathy. MMODL / IJN: [id number] /
[2019-07-05] MEDS: ZOLPIDEM 5 MG TAB PO PRN (21:27)
[2019-07-05 21:45] LABS: Glucose,Whole Blood 269 mg/dL (75-99)
[2019-07-06] MEDS: traMADol 50 MG TAB PO PRN ×2 (02:19→20:08)
--- NOTE | 2019-07-06 05:48 | CONS ---
CONSULTATION DATE OF SERVICE: 07/05/2019. REASON FOR THE VISIT: VRE urinary tract infection. HISTORY OF PRESENT ILLNESS: The patient is a 74-year-old female presenting to the ER at [facility] on 07/01/2019 for evaluation of increasing shortness of breath and hypoxemia. Apparently the patient recently has been started on dialysis. She was refusing dialysis and missed dialysis for about a week. Subsequently, she noticed having increasing shortness of breath. No chest pain though. Some cough which has been monitored in intensity, but no sputum production. No nausea, no vomiting. Some lower abdominal pain. She still makes some urine with some burning that was noticed initially. With these symptoms, the patient was evaluated by the ER physician. On arrival to the ER, the patient did have a chest x-ray shows mild pulmonary vascular congestion on the basis of congestive heart failure versus noncardiac edema. The patient has been afebrile. Patient did have a white count of 14.8, repeat was up to 19.9. The day before yesterday, the patient also have a positive UA with large leukocyte esterase, moderate bacteria. She has been treated with Levaquin with urine culture came back positive with ESBL E coli. I was asked to see the patient for further recommendations regarding antibiotic therapy. The patient has been started on dialysis and her respiratory symptoms and have improved. REVIEW OF SYSTEMS: Positive points have been mentioned in HPI. Rest of the systems are negative. PAST MEDICAL HISTORY: Coronary artery disease, asthma, CVA, TIA, diabetes mellitus, gastroesophageal reflux disease, hyperlipidemia, hypertension, and memory impairment, sleep apnea and hypothyroidism. PAST SURGICAL HISTORY: Past surgical history includes dialysis catheter placement, cholecystectomy, bladder surgery, heart catheterization with stent placement. SOCIAL HISTORY: No history of smoking, drinking or drug use. FAMILY HISTORY: Mother with history of coronary artery disease. ALLERGIES: TO PENICILLIN WITH A RASH. No history of anaphylaxis. ALSO ALLERGY TO PROPOXYPHENE, MORPHINE, AND ADHESIVE TAPE. MEDICATIONS: The patient is currently on Tylenol, Aricept, Lasix, NovoLog, ProAmatine, Narcan, Ultram and Ambien, Levaquin. PHYSICAL EXAMINATION: On examination, her blood pressure is 139/66, pulse of 73, temperature 97.9. She is 100% on 3 L nasal cannula. General description is an elderly female lying in bed in no distress. No tachypnea or accessory muscle of respiration use. HEENT examination shows pallor. No scleral icterus. Oral mucous membranes dry. No pharyngeal erythema or thrush. NECK: Trachea central. No thyromegaly. LUNGS unlabored breathing. Decreased breath sounds at the base. No wheeze or crackles. HEART: S1, S2. Regular rate and rhythm. ABDOMEN: Soft, no distention or rigidity. EXTREMITIES: Some diffuse swelling and significant bruise of the left leg. No open wound or any drainage. NEUROLOGICAL: Patient is awake, alert, oriented and affect normal. LABS: Hemoglobin 7.4, white count 14.9, BUN of 19, creatinine is 2.58. Urine has been positive. The was negative. Chest x-ray with pulmonary vascular congestion. Urine culture more than 100,000 colonies of ESBL E coli. DIAGNOSTIC IMPRESSION AND PLAN: 1. Patient admitted to the hospital increasing shortness of breath. This patient also complaining of lower abdominal pain and urinary symptoms. Did have a positive UA, likely asymptomatic urinary tract infection with urine cultures have been finalized with ESBL E coli. 2. The patient did have MULTIPLE ANTIBIOTIC ALLERGY that will limit the number of antibiotics safe to use. PLAN: 1. Discontinue the Levaquin. 2. Start the patient on Invanz 0.5 mg daily. 3. Repeat urine culture to determine the need for any duration of antibiotic therapy on discharge. Thank you for this consultation. Will follow this patient along with you. MMODL / IJN: [id number] /
[2019-07-06 06:46] LABS: Anisocytosis Slight; HCT 26.7 % (34.0-46.0); HGB 7.7 gm/dL (11.4-16.0); Hypochromasia Marked; MCH 31.1 pg (25.0-35.0); MCHC 28.7 g/dL (31.0-37.0); MCV 108.4 fL (80.0-100.0); Macrocytosis Marked; Mean Platelet Volume 7.8; Platelet Count 162 k/uL (150-450); Poikilocytosis Slight; RBC 2.46 m/uL (3.80-5.40); WBC 15.6 k/uL (3.8-10.6)
[2019-07-06 07:00] LABS: Potassium 3.6 mmol/L (3.5-5.1)
[2019-07-06 07:01] LABS: Calcium 8.7 mg/dL (8.4-10.2)
[2019-07-06 07:06] LABS: Glucose,Whole Blood 187 mg/dL (75-99)
[2019-07-06] MEDS: ERTAPENEM 0.5 GM in SODIUM CHLORIDE 0.9% 50 ML IVPB SCH (07:37)
[2019-07-06] MEDS: SEVELAMER 800 MG TAB PO SCH ×3 (07:38→18:02)
[2019-07-06] MEDS: MIDODRINE 5 MG TAB PO SCH ×3 (07:38→18:02)
[2019-07-06] MEDS: FUROSEMIDE 10 MG/ML 10 ML VIAL IV SCH ×2 (07:38→20:08)
[2019-07-06] MEDS: INSULIN ASPART (NovoLOG) 100 UNIT/ML VIAL SQ SCH ×4 (07:39→21:24)
[2019-07-06 08:42] LABS: Band Neutrophils % 1 %; Eosinophils # (M) 0.31 k/uL (0-0.7); Lymphocytes # (M) 2.18 k/uL (1.0-4.8); Metamyelocytes # (M) 0.31 k/uL (0); Metamyelocytes % 2 %; Monocytes # (M) 1.09 k/uL (0-1.0); Myelocytes # (M) 1.25 k/uL (0); Myelocytes % 8 %; Neutrophils % (M) 67 %; Nucleated Red Blood Cells 0 /100 WBC (0-0); Total Cells Counted 200
[2019-07-06 08:43] LABS: Basophilic Stippling Present
[2019-07-06 11:13] LABS: Glucose,Whole Blood 264 mg/dL (75-99)
[2019-07-06 11:18] LABS: Appearance,Urine Cloudy (Clear); Bacteria,Urine Rare /hpf; Bilirubin,Urine 1+ (Negative); Blood,Urine Moderate (Negative); Budding Yeast,Urine Many /hpf; Color,Urine Yellow; Glucose,Urine (UA) Negative (Negative); Ketones,Urine Negative (Negative); Leukocyte Esterase,Urine Large (Negative); Nitrite,Urine Negative (Negative); PH, Urine 5.5 (5.0-8.0); Protein,Urine 2+ (Negative); RBC,Urine 31 /hpf (0-5); Specific Gravity,Urine 1.021 (1.001-1.035); Squamous Epithelial Cell,Urine <1 /hpf (0-4); WBC,Urine 51 /hpf (0-5)
--- NOTE | 2019-07-06 13:58 | P.PN ---
Subjective Progress Note Date: 07/06/19 Follow-up for ESRD. Seen during dialysis tolerating well. Objective - Vital Signs Vital signs: Vital Signs Temp 98.3 F 07/06/19 11:42 Pulse 71 07/06/19 11:42 Resp 18 07/06/19 11:42 BP 122/54 07/06/19 11:42 Pulse Ox 100 07/06/19 11:42 Intake & Output 07/05/19 07/06/19 07/06/19 18:59 06:59 18:59 Intake Total 990 290 240 Output Total 5100 20 120 Balance -4110 270 120 Intake: Intake, IV Titration 150 Amount Ertapenem 1 gm In Sodium 50 Chloride 0.9% 50 ml @ 100 mls/hr IVPB Q24H [facility] Rx# :[id number] Levofloxacin 500Mg-D5w 100 Pmx 500 mg In Dextrose/ Water 1 100ml.bag @ 100 mls/hr IVPB Q48H [facility] Rx#: [id number] Oral 840 290 240 Output: Urine 600 20 120 Hemodialysis 2000 Other 2500 Other: Voiding Method Indwelling Catheter Indwelling Catheter Indwelling Catheter - Exam No acute distress S1-S2 heard Decreased breath sounds Edema - Labs CBC & Chem 7: 07/06/19 05:47 07/06/19 05:47 Labs: Abnormal Lab Results - Last 24 Hours (Table) 07/05/19 07/05/19 07/06/19 Range/Units 17:30 21:27 05:47 WBC 15.6 H (3.8-10.6) k/uL RBC 2.46 L (3.80-5.40) m/uL Hgb 7.7 L (11.4-16.0) gm/dL Hct 26.7 L (34.0-46.0) % MCV 108.4 H (80.0-100.0) fL MCHC 28.7 L (31.0-37.0) g/dL RDW 18.0 H (11.5-15.5) % Neutrophils # (Manual) 10.60 H (1.3-7.7) k/uL Monocytes # (Manual) 1.09 H (0-1.0) k/uL Metamyelocytes # (Man) 0.31 H (0) k/uL Myelocytes # (Manual) 1.25 H (0) k/uL Macrocytosis Marked A Sodium (137-145) mmol/L Creatinine (0.52-1.04) mg/dL Glucose (74-99) mg/dL POC Glucose (mg/dL) 239 H 269 H (75-99) mg/dL Urine Appearance (Clear) Urine Protein (Negative) Urine Blood (Negative) Urine Bilirubin (Negative) Ur Leukocyte Esterase (Negative) Urine RBC (0-5) /hpf Urine WBC (0-5) /hpf Urine Bacteria (None) /hpf Urine Yeast (Budding) (None) /hpf 07/06/19 07/06/19 07/06/19 Range/Units 05:47 07:05 11:00 WBC (3.8-10.6) k/uL RBC (3.80-5.40) m/uL Hgb (11.4-16.0) gm/dL Hct (34.0-46.0) % MCV (80.0-100.0) fL MCHC (31.0-37.0) g/dL RDW (11.5-15.5) % Neutrophils # (Manual) (1.3-7.7) k/uL Monocytes # (Manual) (0-1.0) k/uL Metamyelocytes # (Man) (0) k/uL Myelocytes # (Manual) (0) k/uL Macrocytosis Sodium 135 L (137-145) mmol/L Creatinine 2.37 H (0.52-1.04) mg/dL Glucose 172 H (74-99) mg/dL POC Glucose (mg/dL) 187 H (75-99) mg/dL Urine Appearance Cloudy H (Clear) Urine Protein 2+ H (Negative) Urine Blood Moderate H (Negative) Urine Bilirubin 1+ H (Negative) Ur Leukocyte Esterase Large H (Negative) Urine RBC 31 H (0-5) /hpf Urine WBC 51 H (0-5) /hpf Urine Bacteria Rare H (None) /hpf Urine Yeast (Budding) Many H (None) /hpf 07/06/19 Range/Units 11:12 WBC (3.8-10.6) k/uL RBC (3.80-5.40) m/uL Hgb (11.4-16.0) gm/dL Hct (34.0-46.0) % MCV (80.0-100.0) fL MCHC (31.0-37.0) g/dL RDW (11.5-15.5) % Neutrophils # (Manual) (1.3-7.7) k/uL Monocytes # (Manual) (0-1.0) k/uL Metamyelocytes # (Man) (0) k/uL Myelocytes # (Manual) (0) k/uL Macrocytosis Sodium (137-145) mmol/L Creatinine (0.52-1.04) mg/dL Glucose (74-99) mg/dL POC Glucose (mg/dL) 264 H (75-99) mg/dL Urine Appearance (Clear) Urine Protein (Negative) Urine Blood (Negative) Urine Bilirubin (Negative) Ur Leukocyte Esterase (Negative) Urine RBC (0-5) /hpf Urine WBC (0-5) /hpf Urine Bacteria (None) /hpf Urine Yeast (Budding) (None) /hpf Assessment and Plan Assessment: #1 ESRD on hemodialysis MWF schedule #2 hyperkalemia secondary to missed dialysis improved post dialysis #3 volume overload #4 anemia with chronic kidney disease #5 hypertension with chronic kidney disease #6 metabolic bone disease with chronic kidney disease Plan: #1 hemodialysis today and plan again on Monday #2 ESRD medications
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
--- NOTE | 2019-07-06 16:40 | PN ---
PROGRESS NOTE She remains on Ertapenem for drug-resistant UTI. Dialysis is greatly improving. Her leg swelling is improved. Hemoglobin 7.7, white count down to 15.6. We are going to give her IV iron to stimulate her red cells to get improved. Her potassium is down to 3.6, BUN is 15, creatinine 2.37. Sugars mid 200s. Cardiovascular S1-S2. Lungs clear. GI soft. Muscle status is improving. ASSESSMENT AND PLAN: 1. Drug-resistant urinary tract infection. Continue Ertapenem. 2. Severe hyperkalemia, improved. 3. Dialysis today and tomorrow. 4. Possible discharge home Monday. 5. Continue ertapenem. Possibly long-term in the group home. 6. The patient is greatly improving. MMODL / IJN: [id number] /
[2019-07-06 17:05] LABS: Glucose,Whole Blood 205 mg/dL (75-99)
[2019-07-06 21:30] LABS: Glucose,Whole Blood 302 mg/dL (75-99)
[2019-07-06] MEDS: ZOLPIDEM 5 MG TAB PO PRN (21:59)
--- NOTE | 2019-07-06 22:15 | PN ---
PROGRESS NOTE DATE OF SERVICE: 07/06/2019 REASON FOR FOLLOW UP: ESBL E coli urinary tract infection. INTERVAL HISTORY: The patient is currently afebrile. The patient is breathing comfortably. The patient denies having any chest pain. No shortness of breath or cough. No nausea, vomiting. No abdominal pain or diarrhea. PHYSICAL EXAMINATION: Blood pressure 144/49 with a pulse of 72. Temperature is 97.9. She is 100% on 3 L nasal cannula. General description is an elderly female lying in bed in no distress. Respiratory system: Unlabored breathing, clear to auscultation anteriorly. Heart S1, S2. Regular rate and rhythm. ABDOMEN: Soft, no tenderness. LABS: Hemoglobin 7.7, white count 15.6, BUN of 15, creatinine is 2.37. DIAGNOSTIC IMPRESSION AND PLAN: Patient with ESBL E coli urinary tract infection. The patient is currently on Invanz to continue while waiting for repeat culture to finalize and monitor white count closely. Continue supportive care. MMODL / IJN: [id number] /
[2019-07-06] MEDS: ACETAMINOPHEN TAB 325 MG TAB PO PRN (22:59)
[2019-07-07] MEDS: traMADol 50 MG TAB PO PRN ×4 (02:27→21:03)
[2019-07-07 07:11] LABS: Glucose,Whole Blood 199 mg/dL (75-99)
[2019-07-07] MEDS: FUROSEMIDE 10 MG/ML 10 ML VIAL IV SCH ×2 (09:35→21:02)
[2019-07-07] MEDS: MIDODRINE 5 MG TAB PO SCH ×3 (09:36→17:43)
[2019-07-07] MEDS: ERTAPENEM 0.5 GM in SODIUM CHLORIDE 0.9% 50 ML IVPB SCH (09:36)
[2019-07-07] MEDS: SEVELAMER 800 MG TAB PO SCH ×3 (09:37→17:42)
[2019-07-07] MEDS: INSULIN ASPART (NovoLOG) 100 UNIT/ML VIAL SQ SCH ×4 (09:37→21:03)
[2019-07-07 11:39] LABS: Glucose,Whole Blood 296 mg/dL (75-99)
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
--- NOTE | 2019-07-07 14:06 | P.PN ---
Subjective Progress Note Date: 07/07/19 Follow-up for ESRD. Objective - Vital Signs Vital signs: Vital Signs Temp 97.7 F 07/07/19 11:53 Pulse 79 07/07/19 11:53 Resp 17 07/07/19 11:53 BP 141/59 07/07/19 11:53 Pulse Ox 100 07/07/19 11:53 Intake & Output 07/06/19 07/07/19 07/07/19 18:59 06:59 18:59 Intake Total 240 200 Output Total 3240 Balance -3000 200 Intake: Oral 240 200 Output: Urine 240 Hemodialysis 3000 Other: Voiding Method Indwelling Catheter Indwelling Catheter Indwelling Catheter # Voids 1 # Bowel Movements 1 - Exam No acute distress S1-S2 heard Decreased breath sounds Edema - Labs CBC & Chem 7: 07/06/19 05:47 07/06/19 05:47 Labs: Abnormal Lab Results - Last 24 Hours (Table) 07/06/19 07/06/19 07/07/19 Range/Units 17:03 21:20 07:09 POC Glucose (mg/dL) 205 H 302 H 199 H (75-99) mg/dL 07/07/19 Range/Units 11:38 POC Glucose (mg/dL) 296 H (75-99) mg/dL Microbiology - Last 24 Hours (Table) 07/06/19 11:00 Urine Culture - Preliminary Urine,Voided Yeast species Assessment and Plan Assessment: #1 ESRD on hemodialysis MWF schedule #2 hyperkalemia secondary to missed dialysis improved post dialysis #3 volume overload #4 anemia with chronic kidney disease #5 hypertension with chronic kidney disease #6 metabolic bone disease with chronic kidney disease Plan: #1 hemodialysis today and plan again on Monday #2 ESRD medications
--- NOTE | 2019-07-07 15:46 | PN ---
PROGRESS NOTE 74-year-old white female, end-stage renal failure, complaining of worsening pain and nausea. She wants increase in pain medicine and nausea today. Dialysis more today. Continue ertapenem for UTI drug-resistant. Follow up in the next 24 to 48 hours for possible discharge. CARDIOVASCULAR S1, S2. ENDOCRINE: BMI is over 40. ABDOMEN is distended due to obesity. HEMATOLOGY negative Homans. PSYCH fair mood and affect. ASSESSMENT AND PLAN: 1. End stage renal disease. 2. Hyperkalemia resolved. 3. Drug-resistant urinary tract infection. Continue on Ertapenem. 4. Chronic nausea. 5. History of gastroesophageal reflux disease. 6. History of diastolic congestive heart failure. 7. Chronic obstructive pulmonary disease. 8. Continue current treatments. 9. Follow up in the next 24-48 hours. MMODL / IJN: [id number] /
[2019-07-07 17:24] LABS: Glucose,Whole Blood 245 mg/dL (75-99)
[2019-07-07] MEDS: FLUCONAZOLE 100 MG TAB PO SCH (17:42)
[2019-07-07 20:47] LABS: Glucose,Whole Blood 247 mg/dL (75-99)
[2019-07-07] MEDS: ZOLPIDEM 5 MG TAB PO PRN (21:17)
--- NOTE | 2019-07-08 00:13 | PN ---
PROGRESS NOTE DATE OF SERVICE: 07/07/2019 REASON FOR FOLLOWUP: ESBL E coli urinary tract infection. INTERVAL HISTORY: The patient is currently afebrile. The patient is complaining of pelvic pain after reinsertion of her [employer] catheter. Denies having any chest pain. No shortness of breath or cough. PHYSICAL EXAMINATION: Blood pressure 141/59 with pulse of 79, temperature 97.7, she is 100% on 3 L nasal cannula. General description is an elderly female lying in bed in no distress. RESPIRATORY SYSTEM: Unlabored breathing, clear to auscultation anteriorly. HEART: S1, S2. Regular rate and rhythm. ABDOMEN: Soft, no tenderness. LABS: White count 15,000. Urine is now showing yeast. DIAGNOSTIC IMPRESSION AND PLAN: Patient with urinary tract infection, urine initial with ESBL that has been adequately treated. Now urine is showing yeast. Will add Diflucan and monitor clinical course closely. MMODL / IJN: [id number] /
[2019-07-08] MEDS: traMADol 50 MG TAB PO PRN ×3 (06:05→19:11)
[2019-07-08 06:59] LABS: Glucose,Whole Blood 260 mg/dL (75-99)
[2019-07-08] MEDS: INSULIN ASPART (NovoLOG) 100 UNIT/ML VIAL SQ SCH ×3 (07:30→17:44)
[2019-07-08] MEDS: MIDODRINE 5 MG TAB PO SCH ×3 (07:30→17:44)
[2019-07-08] MEDS: SEVELAMER 800 MG TAB PO SCH ×3 (07:31→17:44)
[2019-07-08] MEDS: FUROSEMIDE 10 MG/ML 10 ML VIAL IV SCH (07:31)
[2019-07-08] MEDS: ERTAPENEM 0.5 GM in SODIUM CHLORIDE 0.9% 50 ML IVPB SCH (07:31)
[2019-07-08] MEDS: FLUCONAZOLE 100 MG TAB PO SCH (07:31)
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
[2019-07-08] MEDS: ACETAMINOPHEN TAB 325 MG TAB PO PRN (10:09)
[2019-07-08 11:11] LABS: Glucose,Whole Blood 234 mg/dL (75-99)
[2019-07-08] MEDS: DARBEPOETIN ALFA 40 MCG/0.4 ML SYRINGE SQ SCH (14:21)
--- NOTE | 2019-07-08 14:50 | P.DS ---
Providers Date of admission: 07/01/19 09:33 Expected date of discharge: 07/08/19 Attending physician: Chris Yi Consults: 07/01/19 09:33 Consult Physician Stat Consulting Provider: Nicolas Alfaro Consult Reason/Comments: Hyperkalemia, end-stage renal disease Do you want consulting provider notified?: Already Contacted Consult Physician Stat Consulting Provider: Ezio Pang Consult Reason/Comments: esrd Do you want consulting provider notified?: Already Contacted 07/01/19 22:26 Consult Physician Routine Consulting Provider: Hermes Mancera Consult Reason/Comments: arrythmia/chf Do you want consulting provider notified?: Yes 07/05/19 10:06 Consult Physician Routine Consulting Provider: Holly Denny Consult Reason/Comments: ESBL [place] Do you want consulting provider notified?: Yes 07/05/19 15:25 Consult Physician Routine Consulting Provider: Holly Denny 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 Resolved Bradycardia secondary to the above, resolved Acute on chronic hypoxic respiratory failure multifactorial, secondary to fluid overload, obesity, hypoventilation. Wears 2 L nasal cannula at [facility]. Acute UTI, E. coli, sensitive to cephalosporins. Repeat urine culture reporting yeast Toxic and metabolic encephalopathy, multifactorial, improved Hypervolemic hyponatremia, improved Possibly Acute on chronic CHF exacerbation, diastolic dysfunction secondary to fluid overload from #1 Right lower leg traumatic laceration secondary to tear from monitor during transport to the ICU. Acute on chronic Anemia. Acute secondary to blood loss from traumatic left neck triple-lumen subclavian catheter, discontinued, in addition to right lower leg traumatic laceration from monitor during transfer. Improving Diabetes mellitus CAD, history of stenting hypertension hyperlipidemia Morbid obesity, BMI 63.9 sleep apnea unable to tolerate CPAP Coronavirus not detected Hospital course:This is a 74-year-old female admitted with severe hyperkalemia, severe fluid volume overload, end-stage kidney disease, and multiple other medical issues. Underwent hemodialysis/ultrafiltration yesterday, tolerated well. Potassium 4.6. Doppler of right lower extremity reporting limited exam negative for DVT. Hemoglobin dropped to 6.8 today, receiving one unit of packed RBCs. UA suggestive of acute UTI, asymptomatic. Continues on Levaquin. Maintaining O2 sats in the 90s on 3-4 L nasal cannula. Scheduled for hemodialysis today. Beta blockers remain on hold, bradycardia improving with heart rates currently in the low 60s. 07/04/19 currently on the MedSurg unit, feeling better. Maintained on daily dialysis/ultrafiltration. Denies chest pain, palpitations or shortness of breath. Maintaining O2 sats in the high 90s to 100s on 2 L nasal cannula. Hemoglobin 7.7. Sodium 134. 07/05/2019 diet intake 50%, blood sugars better controlled. Afebrile, WBC trending down to 14.9. Hemoglobin 7.4. Maintaining O2 sats in the 90s on 3 L nasal cannula. Creatinine down to 2.58. Denies chest pain, palpitations or shortness of breath. Urine culture reporting E. coli, susceptible to cephasporins. Continues on daily hemodialysis. Significant clinical improvement. Denies chest pain, palpitations or increasing shortness of breath. Significant clinical improvement. Patient will be discharged to [facility] subacute rehab pending clearance and final DC recommendations from consults. Microbiology 07/06/19 11:00 Urine,Voided Urine Culture - Preliminary Rosemarie albicans Yeast species 07/03/19 04:20 Urine,Voided Urine Culture - Final Escherichia coli The impression and plan of care has been dictated as directed. : I performed a history and examination of this patient, discussed the same with the dictator. I agree with the dictator's note ,documented as a scribe. Any additional findings or plans will be noted. Patient Condition at Discharge: Stable Plan - Discharge Summary Discharge Rx Participant: No New Discharge Prescriptions: New Fluconazole [Diflucan] 100 mg PO DAILY #5 tab Midodrine [ProAmatine] 10 mg PO AC-TID tab Midodrine [ProAmatine] 10 mg PO BID PRN tab PRN Reason: HYPOTENSION traMADol HCl [Ultram] 50 mg PO Q6H PRN #12 tab PRN Reason: Pain Sevelamer [Renvela] 800 mg PO TID-W/MEALS tab Continue Atorvastatin [Lipitor] 40 mg PO HS@2100 Aspirin EC [Ecotrin Low Dose] 81 mg PO DAILY@0900 Acetaminophen [Tylenol] 650 mg PO Q6H PRN PRN Reason: Pain Montelukast Sodium [Singulair] 10 mg PO HS@2100 Pantoprazole [Protonix] 40 mg PO DAILY@0600 Clopidogrel [Plavix] 75 mg PO DAILY@0900 Ipratropium-Albuterol Nebulize [Duoneb 0.5 mg-3 mg/3 ml Soln] 3 ml INHALATION RT-Q4H PRN PRN Reason: Shortness Of Breath Bisacodyl [Dulcolax] 10 mg RECTAL DAILY PRN supp PRN Reason: Constipation Lidocaine 2% Gel [Xylocaine Jelly 2%] 1 applic TOPICAL TID PRN applic PRN Reason: Back Pain Collagenase [Santyl] 1 applic TOPICAL Q12H Bisacodyl [Dulcolax] 10 mg PO Q6H PRN PRN Reason: Constipation Insulin Lispro [humaLOG Kwikpen] See Protocol SQ AC-TID Metoprolol Tartrate [Lopressor] 12.5 mg PO BID@0900,2100 Furosemide [Lasix] 80 mg PO BID@0900,1700 Apixaban [Eliquis] 5 mg PO BID@0900,2100 Dulaglutide [Trulicity] 1.5 mg SQ TU Potassium Chloride ER [K-Dur 10] 10 meq PO DAILY@0900 Insulin Glargine,Hum.rec.anlog [Lantus Solostar] 30 unit SQ HS Darbepoetin Alistair [Aranesp] 40 mcg SQ MO Amiodarone [Cordarone] 200 mg PO DAILY@0900 Hydrophilic Cream [Triad Cream] 1 applic TOPICAL BID INSULIN LISPRO (HumaLOG) [humaLOG] 10 unit SQ AC-TID #0 Discontinued ARIPiprazole [Abilify] 5 mg PO HS@2100 Gabapentin [Neurontin] 100 mg PO BID@0600,2200 #6 traMADol HCL [Ultram] 50 mg PO SUTUTHSA Midodrine HCl [ProAmatine] 10 mg PO SUTUTHSA Midodrine HCl [ProAmatine] 10 mg PO MOWEFR traMADol HCL [Ultram] 50 mg PO MOWEFR@0000,1200 traMADol HCl [Ultram] 100 mg PO MOWEFR@1800 Discharge Medication List Atorvastatin [Lipitor] 40 mg PO HS@2100 01/30/17 [History] Aspirin EC [Ecotrin Low Dose] 81 mg PO DAILY@0900 10/11/18 [History] Acetaminophen [Tylenol] 650 mg PO Q6H PRN 01/16/18 [History] Montelukast Sodium [Singulair] 10 mg PO HS@209907/02/18 [History] Pantoprazole [Protonix] 40 mg PO DAILY@0600 09/04/18 [History] Ipratropium-Albuterol Nebulize [Duoneb 0.5 mg-3 mg/3 ml Soln] 3 ml INHALATION RT-Q4H PRN 01/10/19 [History] Clopidogrel [Plavix] 75 mg PO DAILY@0900 01/11/19 [History] Bisacodyl [Dulcolax] 10 mg RECTAL DAILY PRN supp 04/30/19 [Rx] Lidocaine 2% Gel [Xylocaine Jelly 2%] 1 applic TOPICAL TID PRN applic 04/30/19 [Rx] Amiodarone [Cordarone] 200 mg PO DAILY@0907/01/19 [History] Apixaban [Eliquis] 5 mg PO BID@0900,209907/01/19 [History] Bisacodyl [Dulcolax] 10 mg PO Q6H PRN 07/01/19 [History] Collagenase [Santyl] 1 applic TOPICAL Q12H 07/01/19 [History] Darbepoetin Alistair [Aranesp] 40 mcg SQ MO 07/01/19 [History] Dulaglutide [Trulicity] 1.5 mg SQ TU 07/01/19 [History] Furosemide [Lasix] 80 mg PO BID@0900,1700 07/01/19 [History] Hydrophilic Cream [Triad Cream] 1 applic TOPICAL BID 07/01/19 [History] Insulin Glargine,Hum.rec.anlog [Lantus Solostar] 30 unit SQ HS 07/01/19 [History] Insulin Lispro [humaLOG Kwikpen] See Protocol SQ AC-TID 07/01/19 [History] Metoprolol Tartrate [Lopressor] 12.5 mg PO BID@0900,209907/01/19 [History] Potassium Chloride ER [K-Dur 10] 10 meq PO DAILY@0900 07/01/19 [History] Fluconazole [Diflucan] 100 mg PO DAILY #5 tab 07/08/19 [Rx] INSULIN LISPRO (HumaLOG) [humaLOG] 10 unit SQ AC-TID #0 07/08/19 [Rx] Midodrine [ProAmatine] 10 mg PO AC-TID tab 07/08/19 [Rx] Midodrine [ProAmatine] 10 mg PO BID PRN tab 07/08/19 [Rx] Sevelamer [Renvela] 800 mg PO TID-W/MEALS tab 07/08/19 [Rx] traMADol HCl [Ultram] 50 mg PO Q6H PRN #12 tab 07/08/19 [Rx] Follow up Appointment(s)/Referral(s): Tyesha Elam MD [STAFF PHYSICIAN] - 1 Week Chris Yi MD [Primary Care Provider] - 3 Days [facility] [place], [NON-STAFF] - As Needed Activity/Diet/Wound Care/Special Instructions: [facility] antibx as per ID. Hemodialysis as per nephrology CBC, BMP in 3 days Diet: Consistent carb, renal, dysphagia level III chopped Discharge Disposition: TRANSFER TO SNF/ECF
--- NOTE | 2019-07-08 16:38 | PN ---
PROGRESS NOTE Patient is seen for followup for end-stage renal disease. She has been maintained on daily dialysis, mainly for volume overload. There are plans for discharge today post dialysis. PHYSICAL EXAMINATION: On examination, patient is comfortable. She is not in any acute distress. Alert, oriented x3. Blood pressure 148/70, heart rate 73 per minute. She is afebrile. Examination shows edema 3+ bilaterally in lower extremities. Abdomen is soft, morbidly obese. 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 Right IJ PermCath is noted. LABS: Serum potassium of 3.6 on 07/06/2019. ASSESSMENT: 1. End-stage renal disease, maintained on hemodialysis on a Monday, Monday, Monday schedule as outpatient. 2. Hyperkalemia. 3. Volume overload. 4. Chronic kidney disease mineral bone disorder. PLAN: Repeat hemodialysis today with UF 2 to 3 L as tolerated prior to discharge. MMODL / IJN: [id number] /
--- NOTE | 2019-07-08 16:47 | PN ---
PROGRESS NOTE DATE OF SERVICE: 07/08/2019 REASON FOR FOLLOWUP: Urinary tract infection. INTERVAL HISTORY: The patient is currently afebrile. The patient is complaining of some shortness of breath. No chest pain, cough, abdominal pain or any diarrhea reported. PHYSICAL EXAMINATION: Blood pressure 142/70 with a pulse of 73, temperature 98.2. She is 100% on 3 L nasal cannula. General description is an elderly female lying in bed in no distress. RESPIRATORY SYSTEM: Unlabored breathing. Clear to auscultation anteriorly. HEART: S1, S2. Regular rate and rhythm. ABDOMEN: Soft. No tenderness. LABS: Repeat urine now showing a yeast. DIAGNOSTIC IMPRESSION AND PLAN: Patient with Escherichia coli urinary tract infection, adequately treated. Repeat now showing yeast. Will give a short course of oral Diflucan. No need for any Invanz or IV antibiotic on discharge. Discussed with the nurse and the nurse practitioner. MMODL / IJN: [id number] /
[2019-07-08 17:20] LABS: Glucose,Whole Blood 191 mg/dL (75-99)
[2019-07-08 17:29] VITALS: BP 155/64; PULSE 83; RESP 18; TEMP 98
== END 2019-07-08 20:33 | DRG 640 ==
LOC: EC 08:22 → 2SICU 09:33 → 5NMEDONC 07-03 15:40
PROVIDERS: ADMIT Family Medicine; ATTEND Family Medicine
PROC: 02HV33Z Insertion of Infusion Device into Superior Vena Cava, Percutaneous Approach (ICD-10-PCS; principal; 2019-07-01)
PROC: 5A1D70Z Performance of Urinary Filtration, Intermittent, Less than 6 Hours Per Day (ICD-10-PCS; 2019-07-01)
PROC: 30233N1 Transfusion of Nonautologous Red Blood Cells into Peripheral Vein, Percutaneous Approach (ICD-10-PCS; 2019-07-02)
PROC: 30233K1 Transfusion of Nonautologous Frozen Plasma into Peripheral Vein, Percutaneous Approach (ICD-10-PCS; 2019-07-02)
DX: E87.5 Hyperkalemia (principal); G92 Toxic encephalopathy; I50.33 Acute on chronic diastolic (congestive) heart failure; J96.21 Acute and chronic respiratory failure with hypoxia; N18.6 End stage renal disease; R57.1 Hypovolemic shock; E66.2 Morbid (severe) obesity with alveolar hypoventilation; Z16.12 Extended spectrum beta lactamase (ESBL) resistance; D62 Acute posthemorrhagic anemia; I13.2 Hypertensive heart and chronic kidney disease with heart failure and with stage 5 chronic kidney disease, or end stage renal disease; N39.0 Urinary tract infection, site not specified; Z68.44 Body mass index [BMI] 60.0-69.9, adult; T82.838A Hemorrhage due to vascular prosthetic devices, implants and grafts, initial encounter; B96.20 Unspecified Escherichia coli [E. coli] as the cause of diseases classified elsewhere; D63.1 Anemia in chronic kidney disease; E03.9 Hypothyroidism, unspecified; E11.22 Type 2 diabetes mellitus with diabetic chronic kidney disease; E11.65 Type 2 diabetes mellitus with hyperglycemia; Z79.4 Long term (current) use of insulin; Z11.59 Encounter for screening for other viral diseases; E78.5 Hyperlipidemia, unspecified; E83.39 Other disorders of phosphorus metabolism; E87.1 Hypo-osmolality and hyponatremia; E88.89 Other specified metabolic disorders; I25.10 Atherosclerotic heart disease of native coronary artery without angina pectoris; I27.20 Pulmonary hypertension, unspecified; I95.89 Other hypotension; J44.9 Chronic obstructive pulmonary disease, unspecified; M89.9 Disorder of bone, unspecified; S81.811A Laceration without foreign body, right lower leg, initial encounter; Z79.01 Long term (current) use of anticoagulants; Z79.02 Long term (current) use of antithrombotics/antiplatelets; Z79.82 Long term (current) use of aspirin; Z79.899 Other long term (current) drug therapy; Z80.42 Family history of malignant neoplasm of prostate; Z82.49 Family history of ischemic heart disease and other diseases of the circulatory system; Z82.5 Family history of asthma and other chronic lower respiratory diseases; Z85.41 Personal history of malignant neoplasm of cervix uteri; Z86.14 Personal history of Methicillin resistant Staphylococcus aureus infection; Z86.19 Personal history of other infectious and parasitic diseases; Z86.73 Personal history of transient ischemic attack (TIA), and cerebral infarction without residual deficits; Z88.0 Allergy status to penicillin; Z88.1 Allergy status to other antibiotic agents; Z88.5 Allergy status to narcotic agent; Z88.8 Allergy status to other drugs, medicaments and biological substances; Z91.040 Latex allergy status; Z90.49 Acquired absence of other specified parts of digestive tract; Z90.710 Acquired absence of both cervix and uterus; Z91.15 Patient's noncompliance with renal dialysis; Z95.5 Presence of coronary angioplasty implant and graft; Z99.2 Dependence on renal dialysis; Z87.01 Personal history of pneumonia (recurrent); Z87.11 Personal history of peptic ulcer disease; G89.29 Other chronic pain; M54.5 Low back pain; R32 Unspecified urinary incontinence; E89.2 Postprocedural hypoparathyroidism; Z98.49 Cataract extraction status, unspecified eye
CPT/HCPCS: 36415; 36556; 71045; 80048; 80053; 81001; 82728; 83540; 83550; 83735; 84100; 84132; 84439; 84443; 85025; 85027; 85610; 85730; 86706; 86850; 86900; 86901; 86920; 87077; 87086; 87186; 87635; 90935; 93005; 96365; 96366; 96375; 99291